=== PATIENT | male | born 1955 | race Caucasian/White ===

== ENCOUNTER 2016-08-09 10:12 | Inpatient (IN) | payer MEDICARE ==
[~2016-08-09] VITALS: Ht 185.4 cm; Wt 89.8 kg
[2016-08-09] VITALS (12 sets, daily range): BP systolic 119–155; BP diastolic 68–86
[~2016-08-09 10:12] MED LIST: AMIO200T2 PO; ASPI-612 PO; ASPI-630 PO; ATOR40TA59 PO; CLOP75TA PO; ENAL10TA PO; INSU100I13 SQ; INSU100I17 SQ; METF-620 PO; METO50TA2 PO; NITR0.4T22 SL; TICA90TA PO
[2016-08-09] MEDS ORDERED: IV NORMAL SALINE 1000ML BAG 1,000 ML IV SCH (10:17)
[2016-08-09] MEDS ORDERED: AMIODARONE 900 MG in IV DEXTROSE 5% 500 ML IV ONE (10:30)
[2016-08-09] MEDS ORDERED: HEPARIN 25,000UTS/500ML PREMIX 500 ML IV ONE (10:30)
[2016-08-09] MEDS ORDERED: HEPARIN for IV BOLUS 10,000 UNIT/10 ML VIAL. IV ONE ×2 (10:30→11:30)
--- NOTE | 2016-08-09 10:31 | PHYS DOC ---
Past Medical History Past Medical History: CAD, Diabetes-Type II, High Cholesterol, Hypertension, DC Additional Past Surgical Histo: CARDIAC STENT, ROTATOR CUFF- BILAT, L KNEE MENISCUS Alcohol Use: None Drug Use: None Adult General Chief Complaint Chief Complaint: CHEST PAIN HPI HPI Patient is a 60 year old male who presents with complaint of chest pain started prior to arrival. Patient states currently his chest pain has resolved. Patient was brought the emergency department by EMS. Patient had an initial EKG performed by EMS that was interpreted as an acute STEMI with elevations in the inferior leads. Patient was given 324 mg of aspirin prior to arrival. Patient was recently admitted to the hospital for heart attack. Patient underwent several code blues during his initial stay. Patient had several stents placed in his right coronary artery due to blockage. At this time patient maintains that he is asymptomatic. Patient is also being evaluated by cardiology at the bedside at this time. Review of Systems Review of Systems Constitutional: Denies fever or chills [] Eyes: Denies change in visual acuity, redness, or eye pain [] HENT: Denies nasal congestion or sore throat [] Respiratory: Denies cough or shortness of breath [] Cardiovascular: Chest pain [] GI: Denies abdominal pain, nausea, vomiting, bloody stools or diarrhea [] : Denies dysuria or hematuria [] Musculoskeletal: Denies back pain or joint pain [] Integument: Denies rash or skin lesions [] Neurologic: Denies headache, focal weakness or sensory changes [] Current Medications Current Medications Current Medications Medications (Trade) Dose Ordered Sig/Lizzeth Start Time Stop Time Status Last Admin Dose Admin Amiodarone HCl 900 mg/Dextrose 518 ml @ 0 mls/hr 1X ONCE 08/09/16 10:30 08/09/16 10:31 DC Heparin Sodium (Porcine) (Heparin Sodium) 4,000 unit 1X ONCE 08/09/16 10:30 08/09/16 10:31 DC 08/09/16 10:14 4,000 UNIT Heparin Sodium/ Dextrose 500 ml @ 0 mls/hr 1X ONCE 08/09/16 10:30 08/09/16 10:31 DC 08/09/16 12:45 22.2 MLS/HR Sodium Chloride 1,000 ml @ 100 mls/hr Q10H 08/09/16 10:17 08/09/16 20:16 Allergies Allergies Allergies Coded Allergies Type Severity Reaction Last Updated Verified No Known Drug Allergies 08/01/16 No Physical Exam Physical Exam Constitutional: Alert, afebrile, appears in no acute distress. [] HENT: Normocephalic, atraumatic, bilateral external ears normal, oropharynx moist, no oral exudates, nose normal. [] Eyes: PERRLA, EOMI, conjunctiva normal, no discharge. [] Neck: Normal range of motion, no tenderness, supple, no stridor. [] Cardiovascular:Heart rate regular rhythm, no murmur [] Lungs & Thorax: Bilateral breath sounds clear to auscultation [] Abdomen: Bowel sounds normal, soft, no tenderness, no masses, no pulsatile masses. [] Skin: Warm, dry, no erythema, no rash. [] Back: No tenderness, no CVA tenderness. [] Extremities: No tenderness, no cyanosis, no clubbing, ROM intact, no edema. [] Neurologic: Alert and oriented X 3, normal motor function, normal sensory function, no focal deficits noted. [] Current Patient Data Vital Signs Vital Signs Date Time Temp Pulse Resp B/P (MAP) Pulse Ox O2 Delivery O2 Flow Rate FiO2 08/09/16 10:37 65 18 149/85 (106) 97 Room Air 08/09/16 10:12 98.4 98.4 Lab Values Laboratory Tests Test 08/09/16 10:30 White Blood Count 9.2 x10^3/uL (4.0-11.0) Red Blood Count 4.75 x10^6/uL (4.30-5.70) Hemoglobin 14.4 g/dL (13.0-17.5) Hematocrit 41.3 % (39.0-53.0) Mean Corpuscular Volume 87 fL (79-100) Mean Corpuscular Hemoglobin 30 pg (25-35) Mean Corpuscular Hemoglobin Concent 35 g/dL (31-37) Red Cell Distribution Width 13.5 % (11.5-14.5) Platelet Count 481 x10^3/uL (140-400) H Neutrophils (%) (Auto) 66 % (31-73) Lymphocytes (%) (Auto) 17 % (24-48) L Monocytes (%) (Auto) 13 % (0-9) H Eosinophils (%) (Auto) 3 % (0-3) Basophils (%) (Auto) 1 % (0-3) Neutrophils # (Auto) 6.1 x10^3uL (1.8-7.7) Lymphocytes # (Auto) 1.6 x10^3/uL (1.0-4.8) Monocytes # (Auto) 1.2 x10^3/uL (0.0-1.1) H Eosinophils # (Auto) 0.3 x10^3/uL (0.0-0.7) Basophils # (Auto) 0.1 x10^3/uL (0.0-0.2) Prothrombin Time 14.1 SEC (11.7-14.0) H Prothrombin Time INR 1.2 (0.8-1.1) H Sodium Level 136 mmol/L (136-145) Potassium Level 4.8 mmol/L (3.5-5.1) Chloride Level 100 mmol/L (98-107) Carbon Dioxide Level 26 mmol/L (21-32) Anion Gap 10 (6-14) Blood Urea Nitrogen 14 mg/dL (8-26) Creatinine 0.7 mg/dL (0.7-1.3) Estimated GFR (Cockcroft-Gault) 115.0 Glucose Level 302 mg/dL (70-99) H Calcium Level 9.5 mg/dL (8.5-10.1) Magnesium Level 2.0 mg/dL (1.8-2.4) Total Bilirubin 0.5 mg/dL (0.2-1.0) Direct Bilirubin 0.1 mg/dL (0.0-0.2) Aspartate Amino Transferase (AST) 26 U/L (15-37) Alanine Aminotransferase (ALT) 42 U/L (16-63) Alkaline Phosphatase 111 U/L (46-116) Creatine Kinase 48 U/L (39-308) Creatine Kinase MB (Mass) 1.4 ng/mL (0.0-3.6) Creatine Kinase MB Relative Index % (0-4) Troponin I Quantitative 1.295 ng/mL (0.000-0.055) BW-Qfn-H-Type Natriuretic Peptide 559 pg/mL (0-124) H Total Protein 7.4 g/dL (6.4-8.2) Albumin 2.9 g/dL (3.4-5.0) L Laboratory Tests 08/09/16 10:30 Laboratory Tests 08/09/16 10:30 EKG EKG Interpreted by me: Heart rate 73, sinus rhythm, normal intervals, ST elevations in the inferior leads with reciprocal depressions in leads V1 through V3, no T- wave changes, EKG concerning for acute STEMI [] Radiology/Procedures Radiology/Procedures [facility] [address] [place] [address] IMAGING REPORT Signed PATIENT: ELYSSA CONTRERAS ACCOUNT: [id number] : 1955 LOCATION: ER AGE: 60 SEX: M EXAM STATUS: PRE ER ORD. PHYSICIAN: RENEE KHOURY MD REASON: chest pain PROCEDURE: PORTABLE CHEST 1V Indication chest pain. A single view of the chest was obtained. Comparison is made to an examination 08/02/2016. Heart size is at the upper limits of normal. There is no congestive heart failure. There is no focal infiltrate. There is no significant pleural fluid or pneumothorax. The visualized bony structures appear grossly intact. IMPRESSION: No acute finding seen in the chest DICTATED and SIGNED BY: JOSEPHINE NICHOLSON MD DATE: 08/09/16 1056 CC: RENEE KHOURY MD; KARLEE LOMBARDO Jr, MD ~ [] Course & Med Decision Making Course & Med Decision Making Pertinent Labs and Imaging studies reviewed. (See chart for details) The patient was activated as a code STEMI prior to arrival in the emergency department. The patient was evaluated by Dr. Cisse of cardiology. After evaluation, he asked that the code STEMI be canceled and recommended administration of heparin and amiodarone to the patient at this time which was completed in the emergency department. After 30 minutes of the patient being in the emergency department, Dr. Cisse called back to the emergency department and informed me that Dr. Lam, patient's belt glass sander, would be planning on taking the patient emergently to [facility] for [facility]. I spoke Dr. Hua who accepted care of patient in hospital. Dragon Disclaimer Dragon Disclaimer This electronic medical record was generated, in whole or in part, using a voice recognition dictation system. Departure Departure Impression: Primary Impression: STEMI (ST elevation myocardial infarction) Disposition: 09 ADMITTED INPATIENT Admitting Physician: Lisbeth Hua Condition: GUARDED Referrals: KARLEE LOMBARDO Jr, MD (PCP) Problem Qualifiers Primary Impression: STEMI (ST elevation myocardial infarction) Involved coronary artery: unspecified coronary artery Qualified Codes: I21.3 - ST elevation (STEMI) myocardial infarction of unspecified site RENEE KHOURY MD Aug 09, 2016 10:31
[2016-08-09 10:42] LABS: BASO # 0.1 x10^3/uL (0.0-0.2); BASO % 1 % (0-3); EOS % 3 % (0-3); HEMATOCRIT 41.3 % (39.0-53.0); HEMOGLOBIN 14.4 g/dL (13.0-17.5); LYMPH # 1.6 x10^3/uL (1.0-4.8); LYMPH % 17 % (24-48); MEAN CORPUSCULAR HEMOGLOBIN 30 pg (25-35); MEAN CORPUSCULAR HGB CONC 35 g/dL (31-37); MEAN CORPUSCULAR VOLUME 87 fL (79-100); MONO % 13 % (0-9); NEUT % 66 % (31-73); PLATELET COUNT 481 x10^3/uL (140-400); RED BLOOD COUNT 4.75 x10^6/uL (4.30-5.70); RED CELL DISTRIBUTION WIDTH 13.5 % (11.5-14.5); WHITE BLOOD COUNT 9.2 x10^3/uL (4.0-11.0)
[2016-08-09 10:52] LABS: CALCIUM 9.5 mg/dL (8.5-10.1); CREATININE 0.7 mg/dL (0.7-1.3); POTASSIUM 4.8 mmol/L (3.5-5.1)
[2016-08-09 10:58] LABS: ALBUMIN 2.9 g/dL (3.4-5.0); DIRECT BILIRUBIN 0.1 mg/dL (0.0-0.2); TOTAL BILIRUBIN 0.5 mg/dL (0.2-1.0); TOTAL PROTEIN 7.4 g/dL (6.4-8.2)
--- NOTE | 2016-08-09 11:00 | RAD ---
Indication chest pain. A single view of the chest was obtained. Comparison is made to an examination 08/02/2016. Heart size is at the upper limits of normal. There is no congestive heart failure. There is no focal infiltrate. There is no significant pleural fluid or pneumothorax. The visualized bony structures appear grossly intact. IMPRESSION: No acute finding seen in the chest
[2016-08-09] MEDS ORDERED: MIDAZOLAM HCL/PF 2 MG/2 ML VIAL. ONE (11:01)
[2016-08-09] MEDS ORDERED: fentaNYL PF VIAL 100 MCG/2 ML VIAL ONE (11:01)
[2016-08-09 11:02] LABS: INR 1.2 (0.8-1.1); PROTHROMBIN TIME PATIENT 14.1 SEC (11.7-14.0)
[2016-08-09] MEDS ORDERED: LIDOCAINE 2% 20 ML VIAL. ONE (11:02)
[2016-08-09] MEDS ORDERED: IODIXANOL 320 MG/ML 100 ML VIAL. ONE (11:02)
[2016-08-09] MEDS ORDERED: HEPARIN for IV BOLUS 10,000 UNIT/10 ML VIAL. ONE (11:06)
[2016-08-09 11:08] LABS: CKMB MASS 1.4 ng/mL (0.0-3.6); CREATINE KINASE 48 U/L (39-308)
--- NOTE | 2016-08-09 11:13 | ACF ---
Admission Forms Criteria MYOCARDIAL INFARCTION Clinical Indications for Admission to Inpatient Care (Place 'X' for any and all applicable criteria): Admission is indicated for 1 or more of the following (1)(2)(3)(4): [X]I. Acute UT [ ]II. Contraindications and/or Inappropriate clinical situations for Observational Care in patients with Myocardial Infarction, when ANY ONE of the following is required: [ ]a) Patient with High risk of cardiac embolism (e.g, patients with previous cardiac embolism, LVEF < 40%, age >75 and patients with prosthetic valve) 18 [ ]b) Patient with Moderate risk including DM patient, CAD and patient aged 65-75 18 [ ]c) Patient with any change in cardiac biomarker especially troponin should be managed as high risk in an inpatient setting 19 [ ]d) Physician judgement irrespective of ECG and other diagnostic findings 20 [ ]III.General contraindications and/or Inappropriate clinical situations for Observational Care in patients with Myocardial Infarction, when ANY ONE of the following is required: [ ]a) Prediction of prolongation of LOS based on ANY ONE of the following may be considered as a contraindication for observational care 2, 3, 4, 5, 6, 7, 8, 9, 10, 11 [ ]i) Age > 65 yrs. [ ]ii) Patient arriving by ambulance [ ]iii) Patient with high acuity [ ]iv) Patient requiring vital sign monitoring [ ]v) Patient on IV medication [ ]b) Systolic blood pressures greater than or equal to 180mmHg 3,12 [ ]c) Patient with altered mental status including delirium and other alteration of consciousness, (3) [ ]d) Patient whose discharge disposition will be to a halfway home or rehabilitation home should not be managed in Emergency Department Observation Unit. CMS rule requires 3 days hospital stay before such placement. 3,13 [ ]e) Patient with failure to thrive due to broad array of etiologies 3 ,16,17 [ ]f) Inability to ambulate 3,14 Extended stay beyond goal length of stay may be needed for (1)(18)(20)(24)(25): [ ]a) Hemodynamic instability, persisting symptoms after intensive medical management, or recurring severe, prolonged symptoms [ ]b) Intravascular procedural complications such as acute vessel closure, stent thrombosis, stent malposition, or vessel dissection (26)(27)(28) [ ]c) Extravascular procedural complications such as retroperitoneal hematoma , pericardial effusion, or cardiac tamponade [ ]d) Entry site complications causing bleeding, hematoma or distal ischemia and requiring ongoing monitoring, surgical repair or surgical thrombectomy. Dangerous arrhythmia [ ]e) Complicated percutaneous coronary intervention (e.g., unsuccessful percutaneous coronary intervention or percutaneous coronary intervention of non- la posta vessel) [ ]f) Urgent or emergent surgery for complications of UT (e.g., ventricular rupture, valvular insufficiency) [ ]g) Surgical revascularization via coronary artery bypass graft [ ]h) Heart failure (e.g., pulmonary edema) [ ]i) Unstable pulmonary comorbidities, including COPD or pneumonia (31) [ ]j) Acute renal failure The original [employer] content created by [employer] has been revised. The portions of the content which have been revised are identified through the use of italic text or in bold, and [employer] has neither reviewed nor approved the modified material. All other unmodified content is copyright [facility] [employer] Please see references footnoted in the original [facility] [employer] edition 2016 Admission Criteria Met?: Yes MARIKA RODGERS Aug 09, 2016 11:13
[2016-08-09] MEDS ORDERED: TIROFIBAN 12.5MG -0.9% NS 250 ML IV ONE (11:21)
[2016-08-09] MEDS ORDERED: TIROFIBAN 5MG -0.9% NS 100 ML IV ONE (11:30)
[2016-08-09] MEDS ORDERED: CONTRAST GIVEN MC PRN (11:30)
[2016-08-09] MEDS ORDERED: fentaNYL PF VIAL 100 MCG/2 ML VIAL IV ONE (11:30)
[2016-08-09] MEDS ORDERED: MIDAZOLAM HCL/PF 2 MG/2 ML VIAL. IV ONE (11:30)
[2016-08-09] MEDS ORDERED: LIDOCAINE 2% 20 ML VIAL. IJ ONE (11:30)
[2016-08-09] MEDS ORDERED: IODIXANOL 320 MG/ML 100 ML VIAL. IART ONE (11:30)
[2016-08-09] MEDS: TIROFIBAN 12.5MG -0.9% NS 250 ML IV PRN ×2 (12:07→22:05)
--- NOTE | 2016-08-09 14:56 | EKG ---
[facility] [address] [place] [address] Test Date: 2016-08-09 Test Time: 10:10:06 Pat Name: ELYSSA CONTRERAS Department: Room: 110 1 Gender: M Shellfish Manager: : 1955 Requested By: RENEE KHOURY Order Number: [id number] Reading MD: Raulito Lam Measurements Intervals [place] Rate: 72 P: 29 WA: 152 QRS: 6 QRSD: 128 T: 39 QT: 430 QTc: 473 Interpretive Statements SINUS RHYTHM RBBB INFERIOR STEMI Electronically Signed On 08-23-2016 6:23:46 CDT by Raulito Lam
--- NOTE | 2016-08-09 16:53 | PDOC2 ---
CONSULT Date of Consult Date of Consult DATE: 08/09/16 TIME: 16:36 Reason for Consult Reason for Consult: Coronary artery disease, recent stenting, diaphoresis, abnormal EKG Referring Physician Referring Physician: Dr. Hua Identification/Chief Complaint Chief Complaint Diaphoresis Source Source: Patient History of Present Illness Reason for Visit: The patient is a pleasant 60-year-old male who reported diaphoresis at home earlier today. Initial EKG by paramedics showed ST elevation in the inferior leads He was brought emergently to the hospital. Upon arrival the patient reported feeling well. He denies chest pain, shortness of breath, dizziness or diaphoresis. He states his symptoms lasted approximately 10 minutes and then resolved without treatment. His EKG however did show ST elevation in the inferior leads. The patient has had multiple recent procedures on his right coronary artery. Initially at approximately 2-1/2 weeks ago he had stent placement to the right coronary artery. He was returned to the lab is approximate one and a half hours later for an acute occlusion of the right coronary artery and had further stent placement. He then was brought emergently to [place] on the of this month with an ST elevated infarction. This was complicated by cardiac arrest and bradyarrhythmias. The patient was brought to the catheterization lab and had further stents placed in the right coronary artery as well as a temporary pacemaker. The patient went home approximately 5 days ago. He states he has taken his medications as directed. He remains pain- free and feeling at baseline in the emergency room Past Medical History Cardiovascular: CAD, HTN, VT, Other (stent placement as above) Pulmonary: Bronchitis GI: No pertinent hx Endocrine: Diabetes Past Surgical History Past Surgical History: Other (multiple stents placed to the RCA, bilateral rotator cuff repairs, left knee repair.) Family History Family History: Family History Unknown Social History Quit ALCOHOL: none Drugs: None Current Problem List Problem List Problems Medical Problems: (1) STEMI (ST elevation myocardial infarction) Status: Acute Current Medications Current Medications Current Medications Amiodarone HCl 900 mg/Dextrose 518 ml @ 0 mls/hr 1X ONCE IV ; Start 08/09/16 at 10:30; Stop 08/09/16 at 10:31; Status DC Heparin Sodium (Porcine) (Heparin Sodium) 4,000 unit 1X ONCE IV Last administered on 08/09/16t 10:14; Start 08/09/16 at 10:30; Stop 08/09/16 at 10:31 ; Status DC Heparin Sodium/ Dextrose 500 ml @ 0 mls/hr 1X ONCE IV Last administered on 12:45; Start 08/09/16 at 10:30; Stop 08/09/16 at 10:31; Status DC Sodium Chloride 1,000 ml @ 100 mls/hr Q10H IV ; Start 08/09/16 at 10:17; Stop 08/09/16 at 20:16 Fentanyl Citrate (Fentanyl 2ml Vial) 100 mcg STK-MED ONCE .ROUTE ; Start at 11:01; Stop 08/09/16 at 11:02; Status DC Midazolam HCl (Versed) 2 mg STK-MED ONCE .ROUTE ; Start 08/09/16 at 11:01; Stop 08/09/16 at 11:02; Status DC Heparin Sodium/ Sodium Chloride 1,000 ml @ As Directed STK-MED ONCE .ROUTE ; Start 08/09/16 at 11:02; Stop 08/09/16 at 11:03; Status DC Iodixanol (Visipaque 320) 100 ml STK-MED ONCE .ROUTE ; Start 08/09/16 at 11:02; Stop 08/09/16 at 11:03; Status DC Lidocaine HCl 20 ml STK-MED ONCE .ROUTE ; Start 08/09/16 at 11:02; Stop at 11:03; Status DC Heparin Sodium (Porcine) (Heparin Sodium) 10,000 unit STK-MED ONCE .ROUTE ; Start 08/09/16 at 11:06; Stop 08/09/16 at 11:07; Status DC Heparin Sodium/ Sodium Chloride 1,000 unit 1X ONCE IART Last administered on 12:04; Start 08/09/16 at 11:30; Stop 08/09/16 at 11:31; Status DC Midazolam HCl (Versed) 2 mg 1X ONCE IV Last administered on 08/09/16 11:30; Start 08/09/16 at 11:30; Stop 08/09/16 at 11:31; Status DC Fentanyl Citrate (Fentanyl 2ml Vial) 100 mcg 1X ONCE IV Last administered on 12:06; Start 08/09/16 at 11:30; Stop 08/09/16 at 11:31; Status DC Iodixanol (Visipaque 320) 100 ml 1X ONCE IART Last administered on 08/09/16 12:04; Start 08/09/16 at 11:30; Stop 08/09/16 at 11:31; Status DC Lidocaine HCl 20 ml 1X ONCE IJ Last administered on 08/09/16 12:04; Start at 11:30; Stop 08/09/16 at 11:31; Status DC Heparin Sodium (Porcine) (Heparin Sodium) 2,000 unit 1X ONCE IV Last administered on 08/09/16 12:08; Start 08/09/16 at 11:30; Stop 08/09/16 at 11:31 ; Status DC Tirofiban/Sodium Chloride 250 ml @ As Directed STK-MED ONCE IV ; Start at 11:21; Stop 08/09/16 at 11:22; Status DC Info (Do NOT chart on this entry -- for MONITORING) 1 each PRN DAILY PRN MC SEE COMMENTS; Start 08/09/16 at 11:30; Stop 08/11/16 at 11:29 Tirofiban/Sodium Chloride 100 ml @ 0 mls/hr 1X ONCE IV Last administered on 11:30; Start 08/09/16 at 11:30; Stop 08/09/16 at 11:31; Status DC Tirofiban/Sodium Chloride 250 ml @ 0 mls/hr CONT PRN IV PER PROTOCOL Last administered on 08/09/16 12:07; Start 08/09/16 at 11:30; Stop 08/10/16 at 05:29 Active Scripts Active Brilinta (Ticagrelor) 90 Mg Tablet 90 Mg PO BID 30 Days Atorvastatin Calcium 40 Mg Tablet 40 Mg PO QHS 30 Days Aspirin Ec (Aspirin) 81 Mg Tablet. 81 Mg PO DAILYWBKFT 30 Days Amiodarone Hcl 200 Mg Tablet 200 Mg PO DAILY 30 Days Reported Metoprolol Tartrate 50 Mg Tablet 1 Tab PO BID NITROGLYCERIN SubLingual (Nitroglycerin) 0.4 Mg Tab.subl 1 Tab SL UD Novolog Flexpen (Insulin Aspart) 100 Unit/1 Ml Insuln.pen 12 Unit SQ TIDAC Metformin Hcl 1,000 Mg Tablet 1,000 Mg PO BIDWMEALS Lantus Solostar (Insulin Glargine,Hum.rec.anlog) 100 Unit/1 Ml Insuln.pen 32 Unit SQ QHS Enalapril Maleate 10 Mg Tablet 1 Tab PO DAILY Atorvastatin Calcium 40 Mg Tablet 1 Tab PO QHS Aspirin 81 Mg Tab.chew 1 Tab PO DAILY Allergies Allergies: Coded Allergies: No Known Drug Allergies (Unverified , 08/01/16) ROS General: YES: Chills Physical Exam General: No acute distress HEENT: Atraumatic Lungs: Clear to auscultation Heart: Regular rate Abdomen: Normal bowel sounds Extremities: No clubbing Vitals VITALS Vital Signs Date Time Temp Pulse Resp B/P (MAP) Pulse Ox O2 Delivery O2 Flow Rate FiO2 08/09/16 15:50 77 18 128/69 (88) 96 Room Air 08/09/16 12:20 97.9 97.9 Labs Labs Laboratory Tests Test 08/09/16 10:30 White Blood Count 9.2 x10^3/uL (4.0-11.0) Red Blood Count 4.75 x10^6/uL (4.30-5.70) Hemoglobin 14.4 g/dL (13.0-17.5) Hematocrit 41.3 % (39.0-53.0) Mean Corpuscular Volume 87 fL (79-100) Mean Corpuscular Hemoglobin 30 pg (25-35) Mean Corpuscular Hemoglobin Concent 35 g/dL (31-37) Red Cell Distribution Width 13.5 % (11.5-14.5) Platelet Count 481 x10^3/uL (140-400) Neutrophils (%) (Auto) 66 % (31-73) Lymphocytes (%) (Auto) 17 % (24-48) Monocytes (%) (Auto) 13 % (0-9) Eosinophils (%) (Auto) 3 % (0-3) Basophils (%) (Auto) 1 % (0-3) Neutrophils # (Auto) 6.1 x10^3uL (1.8-7.7) Lymphocytes # (Auto) 1.6 x10^3/uL (1.0-4.8) Monocytes # (Auto) 1.2 x10^3/uL (0.0-1.1) Eosinophils # (Auto) 0.3 x10^3/uL (0.0-0.7) Basophils # (Auto) 0.1 x10^3/uL (0.0-0.2) Prothrombin Time 14.1 SEC (11.7-14.0) Prothromb Time International Ratio 1.2 (0.8-1.1) Sodium Level 136 mmol/L (136-145) Potassium Level 4.8 mmol/L (3.5-5.1) Chloride Level 100 mmol/L (98-107) Carbon Dioxide Level 26 mmol/L (21-32) Anion Gap 10 (6-14) Blood Urea Nitrogen 14 mg/dL (8-26) Creatinine 0.7 mg/dL (0.7-1.3) Estimated GFR (Cockcroft-Gault) 115.0 Glucose Level 302 mg/dL (70-99) Calcium Level 9.5 mg/dL (8.5-10.1) Magnesium Level 2.0 mg/dL (1.8-2.4) Total Bilirubin 0.5 mg/dL (0.2-1.0) Direct Bilirubin 0.1 mg/dL (0.0-0.2) Aspartate Amino Transf (AST/SGOT) 26 U/L (15-37) Alanine Aminotransferase (ALT/SGPT) 42 U/L (16-63) Alkaline Phosphatase 111 U/L (46-116) Creatine Kinase 48 U/L (39-308) Creatine Kinase MB (Mass) 1.4 ng/mL (0.0-3.6) Creatine Kinase MB Relative Index % (0-4) Troponin I Quantitative 1.295 ng/mL (0.000-0.055) UU-Cum-D-Type Natriuretic Peptide 559 pg/mL (0-124) Total Protein 7.4 g/dL (6.4-8.2) Albumin 2.9 g/dL (3.4-5.0) Laboratory Tests Test 08/09/16 10:30 White Blood Count 9.2 x10^3/uL (4.0-11.0) Red Blood Count 4.75 x10^6/uL (4.30-5.70) Hemoglobin 14.4 g/dL (13.0-17.5) Hematocrit 41.3 % (39.0-53.0) Mean Corpuscular Volume 87 fL (79-100) Mean Corpuscular Hemoglobin 30 pg (25-35) Mean Corpuscular Hemoglobin Concent 35 g/dL (31-37) Red Cell Distribution Width 13.5 % (11.5-14.5) Platelet Count 481 x10^3/uL (140-400) Neutrophils (%) (Auto) 66 % (31-73) Lymphocytes (%) (Auto) 17 % (24-48) Monocytes (%) (Auto) 13 % (0-9) Eosinophils (%) (Auto) 3 % (0-3) Basophils (%) (Auto) 1 % (0-3) Neutrophils # (Auto) 6.1 x10^3uL (1.8-7.7) Lymphocytes # (Auto) 1.6 x10^3/uL (1.0-4.8) Monocytes # (Auto) 1.2 x10^3/uL (0.0-1.1) Eosinophils # (Auto) 0.3 x10^3/uL (0.0-0.7) Basophils # (Auto) 0.1 x10^3/uL (0.0-0.2) Prothrombin Time 14.1 SEC (11.7-14.0) Prothromb Time International Ratio 1.2 (0.8-1.1) Sodium Level 136 mmol/L (136-145) Potassium Level 4.8 mmol/L (3.5-5.1) Chloride Level 100 mmol/L (98-107) Carbon Dioxide Level 26 mmol/L (21-32) Anion Gap 10 (6-14) Blood Urea Nitrogen 14 mg/dL (8-26) Creatinine 0.7 mg/dL (0.7-1.3) Estimated GFR (Cockcroft-Gault) 115.0 Glucose Level 302 mg/dL (70-99) Calcium Level 9.5 mg/dL (8.5-10.1) Magnesium Level 2.0 mg/dL (1.8-2.4) Total Bilirubin 0.5 mg/dL (0.2-1.0) Direct Bilirubin 0.1 mg/dL (0.0-0.2) Aspartate Amino Transf (AST/SGOT) 26 U/L (15-37) Alanine Aminotransferase (ALT/SGPT) 42 U/L (16-63) Alkaline Phosphatase 111 U/L (46-116) Creatine Kinase 48 U/L (39-308) Creatine Kinase MB (Mass) 1.4 ng/mL (0.0-3.6) Creatine Kinase MB Relative Index % (0-4) Troponin I Quantitative 1.295 ng/mL (0.000-0.055) MK-Vtx-Z-Type Natriuretic Peptide 559 pg/mL (0-124) Total Protein 7.4 g/dL (6.4-8.2) Albumin 2.9 g/dL (3.4-5.0) Assessment/Plan Assessment/Plan 1. Episode of diaphoresis as noted above. Patient denies any chest pain. He remains comfortable in the emergency room. Lab is pending However he does have elevated ST segments in the inferior leads. The patient has initially been treated with heparin and aspirin. He has remained pain free. His case was discussed with his primary senior civil engineer Dr. Lam. The patient will be brought to the cathode maker for reevaluation of his right coronary artery and possible intervention. This was discussed with the patient he has agreed to proceed. 2. Hyperlipidemia. Continue present medical treatment. 3. Hypertension. Adjust medications as needed. 4. Uncontrolled diabetes with a glucose level of 300. As per the primary service. Thank you for allowing us to participate in the care of your patient. DIOGENES MARTINS MD Aug 09, 2016 16:53
--- NOTE | 2016-08-09 17:25 | CARD ---
APPROVED REPORT Procedure(s) performed: Left Heart Cath PTCA RCA PTCA PDA IVUS PDA/ RCA HISTORY : The patient is a 60 year-old male with a history of . INDICATION The indication(s) include : unstable angina . CASE TECHNIQUE During this case, Fluoroscopy and low osmolar contrast were used for imaging. PROCEDURE NARRATIVE Patient is a 60-year-old male who comes into the hospital with recurrent chest pain in the setting of recent episodes of admission for stent thrombosis and ST elevation myocardial infarction with cardia c arrest. Upon arrival to the emergency department patient was noted to have symptoms suggestive of recurrent o cclusive disease of his RCA and therefore was taken urgently back to the catheterization laboratory. After appropriate informed consent the right groin was prepped and draped in usual sterile fashion. U nder 2% lidocaine local anesthesia a 6 Azeri introducer sheath was placed in the right common femora l artery. With the aid of a JR4 guide catheter and a 0.014 inch Glidewire the iliac calcification was traversed and initial angiography demonstrated occlusion of the distal RCA at the site of a previous ly placed stent at [facility]. Heparin weight-based bolus dosing was administered to achieve an ACT above 200 and antiplatelet thera py with tirofiban was also administered. A pro-water wire was then advanced to the distal RCA after e ngagement of the RCA with a AL-1.5 guide catheter. Next several balloon angioplasties were performed at the site of the distal RCA overlapping stents. Next a wire was also placed in the posterior descen ding artery and balloon angioplasty was performed at the crux of the RCA. Post angioplasty there was residual less than 30% thrombus in the distal RCA with CONNIE-3 flow in the vessel and no evidence of g uider wire-related complications. Therefore further intervention was deferred in favor of a single ve ssel bypass surgery given multiple episodes of recurrent stent thrombosis. Prior to the case being co mpleted a CHAY catheter was then advanced over the wire and evaluation of the stents in the distal RC A revealed significant luminal narrowing but no evidence of malapposition. Finally a pigtail catheter was placed in the left ventricle and a EDP was measured at 8 mmHg. Left ve ntriculography was performed in our SIFUENTES projection revealing inferior basilar hypokinesis but otherwi se preserved LV systolic function with ejection fraction of 50%. Due to difficulty advancing catheters in the distal aorta a abdominal aortogram was then performed wh ich did not reveal any significant obstructive pathology in the right and left common iliac vessels. Limited right common femoral artery angiography revealed adequate placement of the sheath and appropr iate anatomy for closure device. The right common femoral artery sheath was removed and a Angio-Seal device was placed for hemostasis. The patient tolerated the procedure well and the heparin and tirofi ban drips were continued and the patient was transferred to the ICU in stable condition. Conclusion 1. 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 2. Successful PTCA of the distal RCA 3. IVUS of the RCA 4. Abdominal aortography reveals no high grade inflow disease. Recommendations Heparin gtt, Tirofiban gtt Hold Ticagrelor CT surgery consultation for single vessel bypass.
--- NOTE | 2016-08-09 18:16 | HP ---
ADMIT DATE: 08/09/2016 CHIEF COMPLAINT: Chest pain. HISTORY OF PRESENT ILLNESS: The patient is a pleasant, middle-aged, 60-year-old white male who has known history of coronary artery disease. He has had a recent code even. He basically presents with chest pain. He had some EKG changes. He was taken to the [facility] emergently. He does have a right coronary lesion. No stents were placed today, but he is in the ICU. He is on amiodarone drip. We are awaiting further assessment and plan by Cardiology. PAST MEDICAL HISTORY: Coronary artery disease. Apparently, he has been awaiting bypass surgery. Diabetes, hypertension, hyperlipidemia, previous cardiac stents, rotator cuff surgery, and knee surgery. ALLERGIES: None. FAMILY HISTORY: Diabetes. SOCIAL HISTORY: Does not drink, smoke, or take drugs. MEDICATIONS: Reviewed. Please refer to the MRAD. REVIEW OF SYSTEMS: GENERAL: No history of weight change, weakness, or fevers. SKIN: No bruising, hair changes, or rashes. EYES: No blurred, double, or loss of vision. NOSE AND THROAT: No history of nosebleeds, hoarseness, or sore throat. HEART: The patient complains of chest pain. LUNGS: Denies cough, hemoptysis, wheezing, or shortness of breath. GASTROINTESTINAL: Denies changes in appetite, nausea, vomiting, diarrhea, or constipation. GENITOURINARY: No history of frequency, urgency, hesitancy, or nocturia. NEUROLOGIC: Denies history of numbness, tingling, tremor, or weakness. PSYCHIATRIC: No history of panic, anxiety, or depression. ENDOCRINE: No history of heat or cold intolerance, polyuria, or polydipsia. EXTREMITIES: Denies muscle weakness, joint pain, pain on walking, or stiffness. PHYSICAL EXAMINATION: VITAL SIGNS: Temperature afebrile, pulse 67, respirations 18, and blood pressure 126/68. GENERAL: He is alert, cooperative in the ICU. HEART: Normal S1, S2. LUNGS: Clear. ABDOMEN: Soft. EXTREMITIES: No edema. SKIN: No rashes. PSYCHIATRIC: Stable. VASCULAR: Good capillary refill. ENDOCRINE: No thyromegaly. LYMPHATICS: No cervical nodes. HEMATOPOIETIC: No bruising. LABORATORY DATA: Hematology normal. Electrolytes are normal. Troponin is 1.29. ASSESSMENT AND PLAN: Acute myocardial infarction in a middle-aged male who has known coronary artery disease. The patient was taken emergently to the [facility]. He did not receive new stents, but I think he may need further surgery and/or interventions. In fact, he has been awaiting some type of bypass surgery. For now, we are going to continue our ICU monitoring. Anticoagulation per Cardiology. Continue serial enzymes and home medications. PROGNOSIS: Guarded. DARIO LOPEZ DO DR: CALISTA/susie JOB#: [id number] / [id number]
[2016-08-09] MEDS ORDERED: HEPARIN for IV BOLUS 10,000 UNIT/10 ML VIAL. IV PRN (18:30)
[2016-08-09] MEDS ORDERED: DEXTROSE 50% 25 GM / 50ML DISP.SYRIN. IV PRN (18:45)
[2016-08-10] VITALS (15 sets, daily range): BP systolic 116–164; BP diastolic 61–88
[2016-08-10] MEDS: HEPARIN 25,000UTS/500ML PREMIX 500 ML IV PRN ×2 (05:14→21:27)
[2016-08-10] MEDS ORDERED: INSULIN ASPART 300 UNITS/3 ML INSULN.PEN SQ SCH (08:00)
[2016-08-10] MEDS ORDERED: ONDANSETRON PF 4 MG/2 ML VIAL. IV PRN (08:30)
[2016-08-10] MEDS ORDERED: ACETAMINOPHEN 325 MG TABLET. PO PRN (08:30)
[2016-08-10] MEDS ORDERED: DEXTROSE 50% 25 GM / 50ML DISP.SYRIN. IV PRN (08:30)
[2016-08-10] MEDS ORDERED: TICAGRELOR 90 MG TABLET. PO SCH (09:00)
[2016-08-10] MEDS ORDERED: ASPIRIN CHEWABLE 81 MG TABLET. PO SCH (09:00)
[2016-08-10] MEDS ORDERED: LISINOPRIL 20 MG TABLET PO SCH (09:00)
--- NOTE | 2016-08-10 09:00 | PDOC ---
PROGRESS NOTES Chief Complaint Chief Complaint 1. NSTEMI s/p balloon angioplasty (08/09) 2. HTN 3. Dyslipidemia 4. DM 2 5. Ex smoker 6. Mild to mod pcm History of Present Illness History of Present Illness Seen in ICU post balloon angioplasty yesterday NO CP VS ok On heparin gtt Looking at home meds, on statin 40, ASA 81 and brilinta 90 BID. 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 Vitals Vitals Vital Signs Date Time Temp Pulse Resp B/P (MAP) Pulse Ox O2 Delivery O2 Flow Rate FiO2 08/10/16 06:45 69 20 135/81 (99) 98 Room Air 08/10/16 04:05 99.5 99.5 Physical Exam General: Alert, Oriented X3, Cooperative, No acute distress Heart: Regular rate Lungs: Clear Abdomen: Normal bowel sounds Extremities: No clubbing Skin: No rashes Labs LABS Laboratory Tests Test 08/09/16 10:26 08/09/16 10:30 08/09/16 13:55 08/09/16 17:50 Bedside Troponin I 0.71 ng/ml (<0.08) White Blood Count 9.2 x10^3/uL (4.0-11.0) Red Blood Count 4.75 x10^6/uL (4.30-5.70) Hemoglobin 14.4 g/dL (13.0-17.5) Hematocrit 41.3 % (39.0-53.0) Mean Corpuscular Volume 87 fL (79-100) Mean Corpuscular Hemoglobin 30 pg (25-35) Mean Corpuscular Hemoglobin Concent 35 g/dL (31-37) Red Cell Distribution Width 13.5 % (11.5-14.5) Platelet Count 481 x10^3/uL (140-400) Neutrophils (%) (Auto) 66 % (31-73) Lymphocytes (%) (Auto) 17 % (24-48) Monocytes (%) (Auto) 13 % (0-9) Eosinophils (%) (Auto) 3 % (0-3) Basophils (%) (Auto) 1 % (0-3) Neutrophils # (Auto) 6.1 x10^3uL (1.8-7.7) Lymphocytes # (Auto) 1.6 x10^3/uL (1.0-4.8) Monocytes # (Auto) 1.2 x10^3/uL (0.0-1.1) Eosinophils # (Auto) 0.3 x10^3/uL (0.0-0.7) Basophils # (Auto) 0.1 x10^3/uL (0.0-0.2) Prothrombin Time 14.1 SEC (11.7-14.0) Prothromb Time International Ratio 1.2 (0.8-1.1) Sodium Level 136 mmol/L (136-145) Potassium Level 4.8 mmol/L (3.5-5.1) Chloride Level 100 mmol/L (98-107) Carbon Dioxide Level 26 mmol/L (21-32) Anion Gap 10 (6-14) Blood Urea Nitrogen 14 mg/dL (8-26) Creatinine 0.7 mg/dL (0.7-1.3) Estimated GFR (Cockcroft-Gault) 115.0 Glucose Level 302 mg/dL (70-99) Calcium Level 9.5 mg/dL (8.5-10.1) Magnesium Level 2.0 mg/dL (1.8-2.4) Total Bilirubin 0.5 mg/dL (0.2-1.0) Direct Bilirubin 0.1 mg/dL (0.0-0.2) Aspartate Amino Transf (AST/SGOT) 26 U/L (15-37) Alanine Aminotransferase (ALT/SGPT) 42 U/L (16-63) Alkaline Phosphatase 111 U/L (46-116) Creatine Kinase 48 U/L (39-308) Creatine Kinase MB (Mass) 1.4 ng/mL (0.0-3.6) Creatine Kinase MB Relative Index % (0-4) Troponin I Quantitative 1.295 ng/mL (0.000-0.055) SD-Oin-P-Type Natriuretic Peptide 559 pg/mL (0-124) Total Protein 7.4 g/dL (6.4-8.2) Albumin 2.9 g/dL (3.4-5.0) Nasal Screen MRSA (PCR) Negative (Negative) Heparin Anti-Xa Act, Unfractionated 0.10 IU/mL (0.30-0.70) Test 08/09/16 23:55 08/10/16 06:20 08/10/16 07:31 Heparin Anti-Xa Act, Unfractionated 0.20 IU/mL (0.30-0.70) 0.24 IU/mL (0.30-0.70) Glucose (Fingerstick) 187 mg/dL (70-99) Review of Systems Review of Systems denies 14 pt system- all reviewed Assessment and Plan Assessmemt and Plan Problems Medical Problems: (1) STEMI (ST elevation myocardial infarction) Status: Acute Problems: Comment Review of Relevant I have reviewed the following items rachel (where applicable) has been applied. Labs Laboratory Tests Test 08/09/16 10:26 08/09/16 10:30 08/09/16 13:55 08/09/16 17:50 Bedside Troponin I 0.71 ng/ml (<0.08) White Blood Count 9.2 x10^3/uL (4.0-11.0) Red Blood Count 4.75 x10^6/uL (4.30-5.70) Hemoglobin 14.4 g/dL (13.0-17.5) Hematocrit 41.3 % (39.0-53.0) Mean Corpuscular Volume 87 fL (79-100) Mean Corpuscular Hemoglobin 30 pg (25-35) Mean Corpuscular Hemoglobin Concent 35 g/dL (31-37) Red Cell Distribution Width 13.5 % (11.5-14.5) Platelet Count 481 x10^3/uL (140-400) Neutrophils (%) (Auto) 66 % (31-73) Lymphocytes (%) (Auto) 17 % (24-48) Monocytes (%) (Auto) 13 % (0-9) Eosinophils (%) (Auto) 3 % (0-3) Basophils (%) (Auto) 1 % (0-3) Neutrophils # (Auto) 6.1 x10^3uL (1.8-7.7) Lymphocytes # (Auto) 1.6 x10^3/uL (1.0-4.8) Monocytes # (Auto) 1.2 x10^3/uL (0.0-1.1) Eosinophils # (Auto) 0.3 x10^3/uL (0.0-0.7) Basophils # (Auto) 0.1 x10^3/uL (0.0-0.2) Prothrombin Time 14.1 SEC (11.7-14.0) Prothromb Time International Ratio 1.2 (0.8-1.1) Sodium Level 136 mmol/L (136-145) Potassium Level 4.8 mmol/L (3.5-5.1) Chloride Level 100 mmol/L (98-107) Carbon Dioxide Level 26 mmol/L (21-32) Anion Gap 10 (6-14) Blood Urea Nitrogen 14 mg/dL (8-26) Creatinine 0.7 mg/dL (0.7-1.3) Estimated GFR (Cockcroft-Gault) 115.0 Glucose Level 302 mg/dL (70-99) Calcium Level 9.5 mg/dL (8.5-10.1) Magnesium Level 2.0 mg/dL (1.8-2.4) Total Bilirubin 0.5 mg/dL (0.2-1.0) Direct Bilirubin 0.1 mg/dL (0.0-0.2) Aspartate Amino Transf (AST/SGOT) 26 U/L (15-37) Alanine Aminotransferase (ALT/SGPT) 42 U/L (16-63) Alkaline Phosphatase 111 U/L (46-116) Creatine Kinase 48 U/L (39-308) Creatine Kinase MB (Mass) 1.4 ng/mL (0.0-3.6) Creatine Kinase MB Relative Index % (0-4) Troponin I Quantitative 1.295 ng/mL (0.000-0.055) RT-Cmu-R-Type Natriuretic Peptide 559 pg/mL (0-124) Total Protein 7.4 g/dL (6.4-8.2) Albumin 2.9 g/dL (3.4-5.0) Nasal Screen MRSA (PCR) Negative (Negative) Heparin Anti-Xa Act, Unfractionated 0.10 IU/mL (0.30-0.70) Test 08/09/16 23:55 08/10/16 06:20 08/10/16 07:31 Heparin Anti-Xa Act, Unfractionated 0.20 IU/mL (0.30-0.70) 0.24 IU/mL (0.30-0.70) Glucose (Fingerstick) 187 mg/dL (70-99) Laboratory Tests Test 08/09/16 10:26 08/09/16 10:30 08/09/16 13:55 08/09/16 17:50 Bedside Troponin I 0.71 ng/ml (<0.08) White Blood Count 9.2 x10^3/uL (4.0-11.0) Red Blood Count 4.75 x10^6/uL (4.30-5.70) Hemoglobin 14.4 g/dL (13.0-17.5) Hematocrit 41.3 % (39.0-53.0) Mean Corpuscular Volume 87 fL (79-100) Mean Corpuscular Hemoglobin 30 pg (25-35) Mean Corpuscular Hemoglobin Concent 35 g/dL (31-37) Red Cell Distribution Width 13.5 % (11.5-14.5) Platelet Count 481 x10^3/uL (140-400) Neutrophils (%) (Auto) 66 % (31-73) Lymphocytes (%) (Auto) 17 % (24-48) Monocytes (%) (Auto) 13 % (0-9) Eosinophils (%) (Auto) 3 % (0-3) Basophils (%) (Auto) 1 % (0-3) Neutrophils # (Auto) 6.1 x10^3uL (1.8-7.7) Lymphocytes # (Auto) 1.6 x10^3/uL (1.0-4.8) Monocytes # (Auto) 1.2 x10^3/uL (0.0-1.1) Eosinophils # (Auto) 0.3 x10^3/uL (0.0-0.7) Basophils # (Auto) 0.1 x10^3/uL (0.0-0.2) Prothrombin Time 14.1 SEC (11.7-14.0) Prothromb Time International Ratio 1.2 (0.8-1.1) Sodium Level 136 mmol/L (136-145) Potassium Level 4.8 mmol/L (3.5-5.1) Chloride Level 100 mmol/L (98-107) Carbon Dioxide Level 26 mmol/L (21-32) Anion Gap 10 (6-14) Blood Urea Nitrogen 14 mg/dL (8-26) Creatinine 0.7 mg/dL (0.7-1.3) Estimated GFR (Cockcroft-Gault) 115.0 Glucose Level 302 mg/dL (70-99) Calcium Level 9.5 mg/dL (8.5-10.1) Magnesium Level 2.0 mg/dL (1.8-2.4) Total Bilirubin 0.5 mg/dL (0.2-1.0) Direct Bilirubin 0.1 mg/dL (0.0-0.2) Aspartate Amino Transf (AST/SGOT) 26 U/L (15-37) Alanine Aminotransferase (ALT/SGPT) 42 U/L (16-63) Alkaline Phosphatase 111 U/L (46-116) Creatine Kinase 48 U/L (39-308) Creatine Kinase MB (Mass) 1.4 ng/mL (0.0-3.6) Creatine Kinase MB Relative Index % (0-4) Troponin I Quantitative 1.295 ng/mL (0.000-0.055) KS-Dhd-P-Type Natriuretic Peptide 559 pg/mL (0-124) Total Protein 7.4 g/dL (6.4-8.2) Albumin 2.9 g/dL (3.4-5.0) Nasal Screen MRSA (PCR) Negative (Negative) Heparin Anti-Xa Act, Unfractionated 0.10 IU/mL (0.30-0.70) Test 08/09/16 23:55 08/10/16 06:20 08/10/16 07:31 Heparin Anti-Xa Act, Unfractionated 0.20 IU/mL (0.30-0.70) 0.24 IU/mL (0.30-0.70) Glucose (Fingerstick) 187 mg/dL (70-99) Medications Current Medications Amiodarone HCl 900 mg/Dextrose 518 ml @ 0 mls/hr 1X ONCE IV ; Start 08/09/16 at 10:30; Stop 08/09/16 at 10:31; Status DC Heparin Sodium (Porcine) (Heparin Sodium) 4,000 unit 1X ONCE IV Last administered on 08/09/16t 10:14; Start 08/09/16 at 10:30; Stop 08/09/16 at 10:31 ; Status DC Heparin Sodium/ Dextrose 500 ml @ 0 mls/hr 1X ONCE IV Last administered on 12:45; Start 08/09/16 at 10:30; Stop 08/09/16 at 10:31; Status DC Sodium Chloride 1,000 ml @ 100 mls/hr Q10H IV ; Start 08/09/16 at 10:17; Stop 08/09/16 at 20:16; Status DC Fentanyl Citrate (Fentanyl 2ml Vial) 100 mcg STK-MED ONCE .ROUTE ; Start at 11:01; Stop 08/09/16 at 11:02; Status DC Midazolam HCl (Versed) 2 mg STK-MED ONCE .ROUTE ; Start 08/09/16 at 11:01; Stop 08/09/16 at 11:02; Status DC Heparin Sodium/ Sodium Chloride 1,000 ml @ As Directed STK-MED ONCE .ROUTE ; Start 08/09/16 at 11:02; Stop 08/09/16 at 11:03; Status DC Iodixanol (Visipaque 320) 100 ml STK-MED ONCE .ROUTE ; Start 08/09/16 at 11:02; Stop 08/09/16 at 11:03; Status DC Lidocaine HCl 20 ml STK-MED ONCE .ROUTE ; Start 08/09/16 at 11:02; Stop at 11:03; Status DC Heparin Sodium (Porcine) (Heparin Sodium) 10,000 unit STK-MED ONCE .ROUTE ; Start 08/09/16 at 11:06; Stop 08/09/16 at 11:07; Status DC Heparin Sodium/ Sodium Chloride 1,000 unit 1X ONCE IART Last administered on 12:04; Start 08/09/16 at 11:30; Stop 08/10/16 at 07:43; Status DC Midazolam HCl (Versed) 2 mg 1X ONCE IV Last administered on 08/09/16 11:30; Start 08/09/16 at 11:30; Stop 08/09/16 at 11:31; Status DC Fentanyl Citrate (Fentanyl 2ml Vial) 100 mcg 1X ONCE IV Last administered on 12:06; Start 08/09/16 at 11:30; Stop 08/09/16 at 11:31; Status DC Iodixanol (Visipaque 320) 100 ml 1X ONCE IART Last administered on 08/09/16 12:04; Start 08/09/16 at 11:30; Stop 08/09/16 at 11:31; Status DC Lidocaine HCl 20 ml 1X ONCE IJ Last administered on 08/09/16 12:04; Start at 11:30; Stop 08/09/16 at 11:31; Status DC Heparin Sodium (Porcine) (Heparin Sodium) 2,000 unit 1X ONCE IV Last administered on 08/09/16 12:08; Start 08/09/16 at 11:30; Stop 08/09/16 at 11:31 ; Status DC Tirofiban/Sodium Chloride 250 ml @ As Directed STK-MED ONCE IV ; Start at 11:21; Stop 08/09/16 at 11:22; Status DC Info (Do NOT chart on this entry -- for MONITORING) 1 each PRN DAILY PRN MC SEE COMMENTS; Start 08/09/16 at 11:30; Stop 08/11/16 at 11:29 Tirofiban/Sodium Chloride 100 ml @ 0 mls/hr 1X ONCE IV Last administered on 11:30; Start 08/09/16 at 11:30; Stop 08/09/16 at 11:31; Status DC Tirofiban/Sodium Chloride 250 ml @ 0 mls/hr CONT PRN IV PER PROTOCOL Last administered on 08/09/16 22:05; Start 08/09/16 at 11:30; Stop 08/10/16 at 05:29 ; Status DC Heparin Sodium/ Dextrose 500 ml @ 20 mls/hr CONT PRN IV SEE I/O RECORD Last administered on 08/10/16 05:14; Start 08/09/16 at 18:30 Heparin Sodium (Porcine) (Heparin Sodium) 2,300 unit PRN Q6HRS PRN IV FOR UFH LEVEL LESS THAN 0.2 Last administered on 08/09/16 18:37; Start 08/09/16 at 18: 30 Insulin Aspart (NovoLOG) 0-5 UNITS TIDWMEALS SQ Last administered on 08/10/16 07:34; Start 08/10/16 at 08:00; Stop 08/10/16 at 08:27; Status DC Dextrose (Dextrose 50%-Water Syringe) 12.5 gm PRN Q15MIN PRN IV SEE COMMENTS; Start 08/09/16 at 18:45; Stop 08/10/16 at 08:41; Status DC Ondansetron HCl (Zofran) 4 mg PRN Q6HRS PRN IV NAUSEA/VOMITING; Start 08/10/16 at 08:30 Acetaminophen (Tylenol) 650 mg PRN Q6HRS PRN PO pain; Start 08/10/16 at 08:30 Insulin Aspart (NovoLOG) 0-9 UNITS TIDWMEALS SQ ; Start 08/10/16 at 12:00 Dextrose (Dextrose 50%-Water Syringe) 12.5 gm PRN Q15MIN PRN IV SEE COMMENTS; Start 08/10/16 at 08:30 Amiodarone HCl (Cordarone) 200 mg DAILY PO ; Start 08/10/16 at 09:00 Aspirin (Children'S Aspirin) 81 mg DAILY PO ; Start 08/10/16 at 09:00 Atorvastatin Calcium (Lipitor) 40 mg QHS PO ; Start 08/10/16 at 21:00 Insulin Aspart (NovoLOG) 12 units TIDAC SQ ; Start 08/10/16 at 11:30 Metformin HCl (Glucophage) 1,000 mg BIDWMEALS PO ; Start 08/10/16 at 08:30 Metoprolol Tartrate (Lopressor) 50 mg BID PO ; Start 08/10/16 at 09:00 Lisinopril (Prinivil) 20 mg DAILY PO ; Start 08/10/16 at 09:00 Insulin Detemir (Levemir) 32 units QHS SQ ; Start 08/10/16 at 21:00 Ticagrelor (Brilinta) 90 mg BID PO ; Start 08/10/16 at 09:00 Active Scripts Active Brilinta (Ticagrelor) 90 Mg Tablet 90 Mg PO BID 30 Days Atorvastatin Calcium 40 Mg Tablet 40 Mg PO QHS 30 Days Aspirin Ec (Aspirin) 81 Mg Tablet.dr 81 Mg PO DAILYWBKFT 30 Days Amiodarone Hcl 200 Mg Tablet 200 Mg PO DAILY 30 Days Reported Metoprolol Tartrate 50 Mg Tablet 1 Tab PO BID NITROGLYCERIN SubLingual (Nitroglycerin) 0.4 Mg Tab.subl 1 Tab SL UD Novolog Flexpen (Insulin Aspart) 100 Unit/1 Ml Insuln.pen 12 Unit SQ TIDAC Metformin Hcl 1,000 Mg Tablet 1,000 Mg PO BIDWMEALS Lantus Solostar (Insulin Glargine,Hum.rec.anlog) 100 Unit/1 Ml Insuln.pen 32 Unit SQ QHS Enalapril Maleate 10 Mg Tablet 1 Tab PO DAILY Atorvastatin Calcium 40 Mg Tablet 1 Tab PO QHS Aspirin 81 Mg Tab.chew 1 Tab PO DAILY Vitals/I & O Vital Sign - Last 24 Hours 08/09/16 08/09/16 08/09/16 08/09/16 10:12 10:37 10:52 12:06 Temp 98.4 98.4 Pulse 70 65 66 Resp 18 18 18 16 B/P (MAP) 155/87 (109) 149/85 (106) 154/91 (112) Pulse Ox 99 97 98 99 O2 Delivery Room Air Room Air Room Air Nasal Cannula 08/09/16 08/09/16 08/09/16 08/09/16 12:09 12:20 12:36 13:00 Temp 97.9 97.9 Pulse 71 73 68 Resp 18 18 B/P (MAP) 119/73 (88) 119/72 (88) Pulse Ox 99 98 96 98 O2 Delivery Room Air Room Air Room Air Room Air 08/09/16 08/09/16 08/09/16 08/09/16 14:50 15:50 17:00 18:00 Pulse 76 77 78 74 Resp 18 18 18 B/P (MAP) 126/68 (87) 128/69 (88) 137/70 (92) 125/72 (89) Pulse Ox 97 96 97 97 O2 Delivery Room Air Room Air Room Air Room Air 08/09/16 08/09/16 08/09/16 08/09/16 19:00 20:00 21:00 22:00 Temp 97.9 97.9 Pulse 78 81 79 79 Resp 20 18 18 20 B/P (MAP) 135/75 (95) 143/77 (99) 155/86 (109) 148/77 (100) Pulse Ox 97 98 97 97 O2 Delivery Room Air Room Air Room Air Room Air 08/09/16 08/10/16 08/10/16 08/10/16 23:00 00:01 01:00 02:00 Temp 98.7 98.7 Pulse 78 78 80 76 Resp 18 18 18 18 B/P (MAP) 145/75 (98) 139/83 (101) 164/88 (113) 155/85 (108) Pulse Ox 96 96 97 97 O2 Delivery Room Air Room Air Room Air Room Air 08/10/16 08/10/16 08/10/16 08/10/16 03:00 04:05 05:00 06:01 Temp 99.5 99.5 Pulse 72 77 67 67 Resp 18 18 20 20 B/P (MAP) 150/84 (106) 164/73 (103) 134/65 (88) 140/74 (96) Pulse Ox 97 95 98 100 O2 Delivery Room Air Room Air Room Air Room Air 08/10/16 06:45 Pulse 69 Resp 20 B/P (MAP) 135/81 (99) Pulse Ox 98 O2 Delivery Room Air Intake and Output 08/09/16 08/09/16 08/10/16 15:00 23:00 07:00 Intake Total 180 ml 1384.48 ml 517.5 ml Output Total 1625 ml 650 ml Balance 180 ml -240.52 ml -132.5 ml AYE VIRK MD Aug 10, 2016 09:00
--- NOTE | 2016-08-10 09:07 | PDOC2 ---
CONSULT Date of Consult Date of Consult DATE: 08/10/16 TIME: 08:34 Reason for Consult Reason for Consult: recurrent RCA in-stent thrombosis; evaluation for CABG Referring Physician Referring Physician: Dr. Amado Lam Identification/Chief Complaint Chief Complaint chest pain; inferior STEMI Source Source: Chart review, Patient History of Present Illness Reason for Visit: 60 year old male with an abnormal MPI done at as part of a pre-op evaluation prior to undergoing left FPBG. Subsequently underwent cardiac catheterization with stent to RCA. Returned to cardiac cath rn about 1.5 - 2 hours later due to acute thrombosis in stent. Discharged on ASA/Plavix. Admitted to [facility] on 08/01/2016 with inferior STEMI and cardiac arrest. PTCA of in-stent thrombosis of RCA and RPL and remained on IV Aggrastat for about 2 days post procedure then converted to Brilinta 90 mg BID. Multiple rounds of VT post cath requiring compressions and shock. Treated with IV amiodarone, procainamide and BB. Echo prior to discharge on 08/07/2016 demonstrated mildly depressed LV function with EF of 45-50% and inferior, inferoseptal and inferolateral hypokinesis. Evaluated by CTS last week with recommendation to delay surgery as RCA was patent with recent PTCA and RCA would require ligation. Discharged home on 08/07/2016. Returned 08/09/2016 after developing diaphoresis followed by chest pain. EKG on presentation to ER with inferior STEMI and returned to cardiac cath rn with recurrent in-stent thrombosis of RCA stent followed by PTCA. Currently on heparin and Aggrastat drips. Pain free in ICU. Reason for Visit: CABG evaluation Past Medical History Cardiovascular: CAD (stent in RCA with multiple PCI for recurrent in-stent thrombosis; PTCA of RPL), HTN, [place] (inferior STEMI - 08/01/2016 & 08/09/2016), Hyperlipidemia, Other (ischemic cardiomyopathy - LVEF 45-50%; VT arrest - 2016; PAD with failed stent in LLE) Pulmonary: Bronchitis GI: No pertinent hx Heme/Onc: No pertinent hx Hepatobiliary: No pertinent hx Psych: No pertinent hx Musculoskeletal: low back pain Rheumatologic: No pertinent hx Infectious disease: No pertinent hx ENT: No pertinent hx Renal/: No pertinent hx Endocrine: Diabetes (type II; uncontrolled; with peripheral vascular complications) Dermatology: No pertinent hx Past Surgical History Past Surgical History: Other (multiple stents placed to the RCA, bilateral rotator cuff repair, left knee meniscectomy) Family History Family History: Family History Unknown Social History Social History disabled Quit ALCOHOL: none Drugs: None Lives: with Family (mother who has dementia; sister involved) Current Problem List Problem List Problems Medical Problems: (1) STEMI (ST elevation myocardial infarction) Status: Acute Current Medications Current Medications Current Medications Amiodarone HCl 900 mg/Dextrose 518 ml @ 0 mls/hr 1X ONCE IV ; Start 08/09/16 at 10:30; Stop 08/09/16 at 10:31; Status DC Heparin Sodium (Porcine) (Heparin Sodium) 4,000 unit 1X ONCE IV Last administered on 08/09/16t 10:14; Start 08/09/16 at 10:30; Stop 08/09/16 at 10:31 ; Status DC Heparin Sodium/ Dextrose 500 ml @ 0 mls/hr 1X ONCE IV Last administered on t 12:45; Start 08/09/16 at 10:30; Stop 08/09/16 at 10:31; Status DC Sodium Chloride 1,000 ml @ 100 mls/hr Q10H IV ; Start 08/09/16 at 10:17; Stop 08/09/16 at 20:16; Status DC Fentanyl Citrate (Fentanyl 2ml Vial) 100 mcg STK-MED ONCE .ROUTE ; Start at 11:01; Stop 08/09/16 at 11:02; Status DC Midazolam HCl (Versed) 2 mg STK-MED ONCE .ROUTE ; Start 08/09/16 at 11:01; Stop 08/09/16 at 11:02; Status DC Heparin Sodium/ Sodium Chloride 1,000 ml @ As Directed STK-MED ONCE .ROUTE ; Start 08/09/16 at 11:02; Stop 08/09/16 at 11:03; Status DC Iodixanol (Visipaque 320) 100 ml STK-MED ONCE .ROUTE ; Start 08/09/16 at 11:02; Stop 08/09/16 at 11:03; Status DC Lidocaine HCl 20 ml STK-MED ONCE .ROUTE ; Start 08/09/16 at 11:02; Stop at 11:03; Status DC Heparin Sodium (Porcine) (Heparin Sodium) 10,000 unit STK-MED ONCE .ROUTE ; Start 08/09/16 at 11:06; Stop 08/09/16 at 11:07; Status DC Heparin Sodium/ Sodium Chloride 1,000 unit 1X ONCE IART Last administered on 12:04; Start 08/09/16 at 11:30; Stop 08/10/16 at 07:43; Status DC Midazolam HCl (Versed) 2 mg 1X ONCE IV Last administered on 08/09/16 11:30; Start 08/09/16 at 11:30; Stop 08/09/16 at 11:31; Status DC Fentanyl Citrate (Fentanyl 2ml Vial) 100 mcg 1X ONCE IV Last administered on 12:06; Start 08/09/16 at 11:30; Stop 08/09/16 at 11:31; Status DC Iodixanol (Visipaque 320) 100 ml 1X ONCE IART Last administered on 08/09/16 12:04; Start 08/09/16 at 11:30; Stop 08/09/16 at 11:31; Status DC Lidocaine HCl 20 ml 1X ONCE IJ Last administered on 08/09/16 12:04; Start at 11:30; Stop 08/09/16 at 11:31; Status DC Heparin Sodium (Porcine) (Heparin Sodium) 2,000 unit 1X ONCE IV Last administered on 08/09/16 12:08; Start 08/09/16 at 11:30; Stop 08/09/16 at 11:31 ; Status DC Tirofiban/Sodium Chloride 250 ml @ As Directed STK-MED ONCE IV ; Start at 11:21; Stop 08/09/16 at 11:22; Status DC Info (Do NOT chart on this entry -- for MONITORING) 1 each PRN DAILY PRN MC SEE COMMENTS; Start 08/09/16 at 11:30; Stop 08/11/16 at 11:29 Tirofiban/Sodium Chloride 100 ml @ 0 mls/hr 1X ONCE IV Last administered on 11:30; Start 08/09/16 at 11:30; Stop 08/09/16 at 11:31; Status DC Tirofiban/Sodium Chloride 250 ml @ 0 mls/hr CONT PRN IV PER PROTOCOL Last administered on 08/09/16 22:05; Start 08/09/16 at 11:30; Stop 08/10/16 at 05:29 ; Status DC Heparin Sodium/ Dextrose 500 ml @ 20 mls/hr CONT PRN IV SEE I/O RECORD Last administered on 08/10/16 05:14; Start 08/09/16 at 18:30 Heparin Sodium (Porcine) (Heparin Sodium) 2,300 unit PRN Q6HRS PRN IV FOR UFH LEVEL LESS THAN 0.2 Last administered on 08/09/16 18:37; Start 08/09/16 at 18: 30 Insulin Aspart (NovoLOG) 0-5 UNITS TIDWMEALS SQ Last administered on 08/10/16 07:34; Start 08/10/16 at 08:00; Stop 08/10/16 at 08:27; Status DC Dextrose (Dextrose 50%-Water Syringe) 12.5 gm PRN Q15MIN PRN IV SEE COMMENTS; Start 08/09/16 at 18:45 Ondansetron HCl (Zofran) 4 mg PRN Q6HRS PRN IV NAUSEA/VOMITING; Start 08/10/16 at 08:30 Acetaminophen (Tylenol) 650 mg PRN Q6HRS PRN PO pain; Start 08/10/16 at 08:30 Insulin Aspart (NovoLOG) 0-9 UNITS TIDWMEALS SQ ; Start 08/10/16 at 12:00 Dextrose (Dextrose 50%-Water Syringe) 12.5 gm PRN Q15MIN PRN IV SEE COMMENTS; Start 08/10/16 at 08:30 Amiodarone HCl (Cordarone) 200 mg DAILY PO ; Start 08/10/16 at 09:00 Aspirin (Children'S Aspirin) 81 mg DAILY PO ; Start 08/10/16 at 09:00 Atorvastatin Calcium (Lipitor) 40 mg QHS PO ; Start 08/10/16 at 21:00 Insulin Aspart (NovoLOG) 12 units TIDAC SQ ; Start 08/10/16 at 11:30; Status UNV Metformin HCl (Glucophage) 1,000 mg BIDWMEALS PO ; Start 08/10/16 at 08:30 Metoprolol Tartrate (Lopressor) 50 mg BID PO ; Start 08/10/16 at 09:00 Non-Formulary Medication 1 tab DAILY PO ; Start 08/10/16 at 09:00; Status UNV Non-Formulary Medication 32 unit QHS SQ ; Start 08/10/16 at 21:00; Status UNV Ticagrelor (Brilinta) 90 mg BID PO ; Start 08/10/16 at 09:00; Status UNV Active Scripts Active Brilinta (Ticagrelor) 90 Mg Tablet 90 Mg PO BID 30 Days Atorvastatin Calcium 40 Mg Tablet 40 Mg PO QHS 30 Days Aspirin Ec (Aspirin) 81 Mg Tablet.dr 81 Mg PO DAILYWBKFT 30 Days Amiodarone Hcl 200 Mg Tablet 200 Mg PO DAILY 30 Days Reported Metoprolol Tartrate 50 Mg Tablet 1 Tab PO BID NITROGLYCERIN SubLingual (Nitroglycerin) 0.4 Mg Tab.subl 1 Tab SL UD Novolog Flexpen (Insulin Aspart) 100 Unit/1 Ml Insuln.pen 12 Unit SQ TIDAC Metformin Hcl 1,000 Mg Tablet 1,000 Mg PO BIDWMEALS Lantus Solostar (Insulin Glargine,Hum.rec.anlog) 100 Unit/1 Ml Insuln.pen 32 Unit SQ QHS Enalapril Maleate 10 Mg Tablet 1 Tab PO DAILY Atorvastatin Calcium 40 Mg Tablet 1 Tab PO QHS Aspirin 81 Mg Tab.chew 1 Tab PO DAILY Allergies Allergies: Coded Allergies: No Known Drug Allergies (Unverified , 08/01/16) ROS General: No: Chills, Night Sweats, Fatigue, Malaise, Appetite, Other PSYCHOLOGICAL ROS: No: Anxiety, Behavioral Disorder, Concentration difficultie , Decreased libido, Depression, Disorientation, Hallucinations, Hostility, Irritablity, Memory difficulties, Mood Swings, Obsessive thoughts, Physical abuse, Sexual abuse, Sleep disturbances, Suicidal ideation, Other Eyes: No Blurry vision, No Decreased vision, No Double vision, No Dry eyes, No Excessive tearing, No Eye Pain, No Itchy Eyes, No Loss of vision, No Photophobia , No Scotomata, No Uses contacts, No Uses glasses, No Other HEENT: No: Heacaches, Visual Changes, Hearing change, Nasal congestion, Nasal discharge, Oral lesions, Sinus pain, Sore Throat, Epistaxis, Sneezing, Snoring, Tinnitus, Vertigo, Vocal changes, Other ALLERGY AND IMMUNOLOGY: No: Hives, Insect Bite Sensitivity, Itchy/Watery Eyes, Nasal Congestion, Post Nasal Drip, Seasonal Allergies, Other Hematological and Lymphatic: No: Bleeding Problems, Blood Clots, Blood Transfusions, Brusing, Night Sweats, Pallor, Swollen Lymph Nodes, Other ENDOCRINE: No: Breast Changes, Galactorrhea, Hair Pattern Changes, Hot Flashes , Malaise/lethargy, Mood Swings, Palpitations, Polydipsia/polyuria, Skin Changes , Temperature Intolerance, Unexpected Weight Changes, Other Respiratory: No: Cough, Hemoptysis, Orthopnea, Pleuritic Pain, Shortness of breath, SOB with excertion, Sputum Changes, Stridor, Tachypnea, Wheezing, Other Cardiovascular: No Chest Pain, No Palpitations, No Orthopnea, No Paroxysmal Noc. Dyspnea, No Edema, No Lt Headedness, No Other Gastrointestinal: No Nausea, No Vomiting, No Abdominal Pain, No Diarrhea, No Constipation, No Melena, No Hematochezia, No Other Genitourinary: YES , No Dysuria, No Frequency, No Incontinence, No Hematuria, No Retention, No Discharge, No Urgency, No Pain, No Flank Pain, No Other Musculoskeletal: Yes Other (back pain ) Neurological: No Behavorial Changes, No Bowel/Bladder ControlChng, No Confusion , No Dizziness, No Gait Disturbance, No Headaches, No Impaired Coord/balance, No Memory Loss, No Numbness/Tingling, No Seizures, No Speech Problems, No Tremors, No Visual Changes, No Weakness, No Other Skin: No Dry Skin, No Eczema, No Hair Changes, No Lumps, No Mole Changes, No Mottling, No Nail Changes, No Pruritus, No Rash, No Skin Lesion Changes, No Other, No Acne Physical Exam General: Alert, Oriented X3, Cooperative, No acute distress HEENT: Atraumatic, PERRLA Lungs: Clear to auscultation Heart: Regular rate, Normal S1, Normal S2, No murmurs, Other (? left carotid bruit) Abdomen: Normal bowel sounds, Soft Extremities: No edema, Normal pulses (2+ radial; 1+/weak DP and PT) Skin: No rashes Neuro: Normal speech Psych/Mental Status: Mental status NL, Mood NL MUSCULOSKELETAL: No deformity Vitals VITALS Vital Signs Date Time Temp Pulse Resp B/P (MAP) Pulse Ox O2 Delivery O2 Flow Rate FiO2 08/10/16 06:45 69 20 135/81 (99) 98 Room Air 08/10/16 04:05 99.5 99.5 Labs Labs Laboratory Tests Test 08/09/16 10:26 08/09/16 10:30 08/09/16 13:55 08/09/16 17:50 Bedside Troponin I 0.71 ng/ml (<0.08) White Blood Count 9.2 x10^3/uL (4.0-11.0) Red Blood Count 4.75 x10^6/uL (4.30-5.70) Hemoglobin 14.4 g/dL (13.0-17.5) Hematocrit 41.3 % (39.0-53.0) Mean Corpuscular Volume 87 fL (79-100) Mean Corpuscular Hemoglobin 30 pg (25-35) Mean Corpuscular Hemoglobin Concent 35 g/dL (31-37) Red Cell Distribution Width 13.5 % (11.5-14.5) Platelet Count 481 x10^3/uL (140-400) Neutrophils (%) (Auto) 66 % (31-73) Lymphocytes (%) (Auto) 17 % (24-48) Monocytes (%) (Auto) 13 % (0-9) Eosinophils (%) (Auto) 3 % (0-3) Basophils (%) (Auto) 1 % (0-3) Neutrophils # (Auto) 6.1 x10^3uL (1.8-7.7) Lymphocytes # (Auto) 1.6 x10^3/uL (1.0-4.8) Monocytes # (Auto) 1.2 x10^3/uL (0.0-1.1) Eosinophils # (Auto) 0.3 x10^3/uL (0.0-0.7) Basophils # (Auto) 0.1 x10^3/uL (0.0-0.2) Prothrombin Time 14.1 SEC (11.7-14.0) Prothromb Time International Ratio 1.2 (0.8-1.1) Sodium Level 136 mmol/L (136-145) Potassium Level 4.8 mmol/L (3.5-5.1) Chloride Level 100 mmol/L (98-107) Carbon Dioxide Level 26 mmol/L (21-32) Anion Gap 10 (6-14) Blood Urea Nitrogen 14 mg/dL (8-26) Creatinine 0.7 mg/dL (0.7-1.3) Estimated GFR (Cockcroft-Gault) 115.0 Glucose Level 302 mg/dL (70-99) Calcium Level 9.5 mg/dL (8.5-10.1) Magnesium Level 2.0 mg/dL (1.8-2.4) Total Bilirubin 0.5 mg/dL (0.2-1.0) Direct Bilirubin 0.1 mg/dL (0.0-0.2) Aspartate Amino Transf (AST/SGOT) 26 U/L (15-37) Alanine Aminotransferase (ALT/SGPT) 42 U/L (16-63) Alkaline Phosphatase 111 U/L (46-116) Creatine Kinase 48 U/L (39-308) Creatine Kinase MB (Mass) 1.4 ng/mL (0.0-3.6) Creatine Kinase MB Relative Index % (0-4) Troponin I Quantitative 1.295 ng/mL (0.000-0.055) DV-Ptn-H-Type Natriuretic Peptide 559 pg/mL (0-124) Total Protein 7.4 g/dL (6.4-8.2) Albumin 2.9 g/dL (3.4-5.0) Nasal Screen MRSA (PCR) Negative (Negative) Heparin Anti-Xa Act, Unfractionated 0.10 IU/mL (0.30-0.70) Test 08/09/16 23:55 08/10/16 06:20 08/10/16 07:31 Heparin Anti-Xa Act, Unfractionated 0.20 IU/mL (0.30-0.70) 0.24 IU/mL (0.30-0.70) Glucose (Fingerstick) 187 mg/dL (70-99) Laboratory Tests Test 08/09/16 10:26 08/09/16 10:30 08/09/16 13:55 08/09/16 17:50 Bedside Troponin I 0.71 ng/ml (<0.08) White Blood Count 9.2 x10^3/uL (4.0-11.0) Red Blood Count 4.75 x10^6/uL (4.30-5.70) Hemoglobin 14.4 g/dL (13.0-17.5) Hematocrit 41.3 % (39.0-53.0) Mean Corpuscular Volume 87 fL (79-100) Mean Corpuscular Hemoglobin 30 pg (25-35) Mean Corpuscular Hemoglobin Concent 35 g/dL (31-37) Red Cell Distribution Width 13.5 % (11.5-14.5) Platelet Count 481 x10^3/uL (140-400) Neutrophils (%) (Auto) 66 % (31-73) Lymphocytes (%) (Auto) 17 % (24-48) Monocytes (%) (Auto) 13 % (0-9) Eosinophils (%) (Auto) 3 % (0-3) Basophils (%) (Auto) 1 % (0-3) Neutrophils # (Auto) 6.1 x10^3uL (1.8-7.7) Lymphocytes # (Auto) 1.6 x10^3/uL (1.0-4.8) Monocytes # (Auto) 1.2 x10^3/uL (0.0-1.1) Eosinophils # (Auto) 0.3 x10^3/uL (0.0-0.7) Basophils # (Auto) 0.1 x10^3/uL (0.0-0.2) Prothrombin Time 14.1 SEC (11.7-14.0) Prothromb Time International Ratio 1.2 (0.8-1.1) Sodium Level 136 mmol/L (136-145) Potassium Level 4.8 mmol/L (3.5-5.1) Chloride Level 100 mmol/L (98-107) Carbon Dioxide Level 26 mmol/L (21-32) Anion Gap 10 (6-14) Blood Urea Nitrogen 14 mg/dL (8-26) Creatinine 0.7 mg/dL (0.7-1.3) Estimated GFR (Cockcroft-Gault) 115.0 Glucose Level 302 mg/dL (70-99) Calcium Level 9.5 mg/dL (8.5-10.1) Magnesium Level 2.0 mg/dL (1.8-2.4) Total Bilirubin 0.5 mg/dL (0.2-1.0) Direct Bilirubin 0.1 mg/dL (0.0-0.2) Aspartate Amino Transf (AST/SGOT) 26 U/L (15-37) Alanine Aminotransferase (ALT/SGPT) 42 U/L (16-63) Alkaline Phosphatase 111 U/L (46-116) Creatine Kinase 48 U/L (39-308) Creatine Kinase MB (Mass) 1.4 ng/mL (0.0-3.6) Creatine Kinase MB Relative Index % (0-4) Troponin I Quantitative 1.295 ng/mL (0.000-0.055) RQ-Gdc-L-Type Natriuretic Peptide 559 pg/mL (0-124) Total Protein 7.4 g/dL (6.4-8.2) Albumin 2.9 g/dL (3.4-5.0) Nasal Screen MRSA (PCR) Negative (Negative) Heparin Anti-Xa Act, Unfractionated 0.10 IU/mL (0.30-0.70) Test 08/09/16 23:55 08/10/16 06:20 08/10/16 07:31 Heparin Anti-Xa Act, Unfractionated 0.20 IU/mL (0.30-0.70) 0.24 IU/mL (0.30-0.70) Glucose (Fingerstick) 187 mg/dL (70-99) Images Images 08/09/2106: CXR: Heart size is at the upper limits of normal. There is no congestive heart failure. There is no focal infiltrate. There is no significant pleural fluid or pneumothorax. The visualized bony structures appear grossly intact. IMPRESSION: No acute finding seen in the chest 08/09/2016: Cardiac Cath Conclusion 1. 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 2. Successful PTCA of the distal RCA 3. IVUS of the RCA 4. Abdominal aortography reveals no high grade inflow disease. Assessment/Plan Assessment/Plan 1. inferior STEMI, recurrent recurrent RCA in-stent thrombosis on DAPT PTCA to stent on 08/09/2016 currently treated with heparin and GP IIb/IIIa inhibitor needs single vessel bypass to RCA - ? Sunday 2. ? left carotid bruit CDU today 3. HTN continue medical management 4. HLD continue statin therapy 5. PAD failed stent LLE and with FPBG pending 6. DM, II, uncontrolled BS 300 POA check A1C LEANNE CROOK APRN Aug 10, 2016 09:07
[2016-08-10] MEDS: METOPROLOL TART IMMED RELEASE 50 MG TABLET. PO SCH ×2 (10:26→21:26)
[2016-08-10] MEDS: AMIODARONE HCL 200 MG TABLET. PO SCH (10:27)
--- NOTE | 2016-08-10 10:50 | PDOC ---
LIANG CASTELAN PHOTOGRAPHIC SPECIALIST 08/10/16 1050: CARDIO Progress Notes Date and Time Date of Service 08/10/2016 Time of Evaluation 1040 Subjective Subjective: No Chest Pain, No shortness of breath, No Palpitations, No Dizziness Vitals Vitals Vital Signs Date Time Temp Pulse Resp B/P (MAP) Pulse Ox O2 Delivery O2 Flow Rate FiO2 08/10/16 10:27 76 136/76 08/10/16 10:00 18 97 Room Air 08/10/16 08:00 99.4 99.4 Weight Weight [ ] Input and Output Intake and Output Intake and Output 08/10/16 07:00 Intake Total 2081.98 ml Output Total 2275 ml Balance -193.02 ml Intake Oral 840 ml IV Total 1241.98 ml Output Urine Total 2275 ml Laboratory Labs Laboratory Tests Test 08/09/16 13:55 08/09/16 17:50 08/09/16 23:55 08/10/16 06:20 Nasal Screen MRSA (PCR) Negative (Negative) Heparin Anti-Xa Act, Unfractionated 0.10 IU/mL (0.30-0.70) 0.20 IU/mL (0.30-0.70) 0.24 IU/mL (0.30-0.70) Test 08/10/16 07:31 Glucose (Fingerstick) 187 mg/dL (70-99) Physical Exam HEENT: Neck Supple W Full Motion Chest: Symmetric LUNGS: Clear to Auscultation Heart: S1S2, RRR (SR) Abdomen: Soft N/T Extremities: No Calf Tenderness Neurology: alert, oriented, follow commands Other Exams right groin arteriotomy site intact with mild swelling, no erythema, moderate bruising to region, neurovascular status to bilateral LE intact. Assessment Assessment 1. Recurrent inferior STEMI (3 times in 1 week) of the distal RCA stents despite brilinta/ASA use S/P Successful PTCA of the distal RCA tolerated procedure EF via LHC 50% 2. HTN: controlled 3. HLD: statin 4. DM2: uncontrolled, per PCP 5. Tobaccoism 6. Prior hx of VT storm Recommendations 1. Follow CTS- planning for CABG 2. Continue with med optimization 3. Continue with tirofiban/heparin/ASA 4. Will hold ACEi if warranted by CTS 5. Stop metformin, post cath 6. Continue metoprolol and amiodarone JEFFREY PENA MD 08/10/16 1450: CARDIO Progress Notes Plan Plan Pt. seen and examined. No acute events. Agree with above [employer] note. Normal cardiac exam. No EKG changes. Labs reviewed. Supportive care until CABG on sunday. If not amenable, will then perform PCI of the RCA tomorrow. Thanks - LIANG CASTELAN APRN Aug 10, 2016 10:50 JEFFREY PENA MD Aug 10, 2016 14:50
[2016-08-10] MEDS: INSULIN ASPART 300 UNITS/3 ML INSULN.PEN SQ SCH ×4 (11:43→17:00)
--- NOTE | 2016-08-10 12:23 | RAD ---
Indication recent VT. Anticipated coronary artery bypass surgery. Presurgical evaluation. Grayscale color Doppler and spectral imaging was performed. Examination was targeted to the carotid bifurcations. On the right there is some minimal plaquing. The color Doppler images do not suggest significant turbulence. The common carotid waveform and velocities are normal. The internal carotid waveform and velocities are also normal. External carotid has a slightly elevated peak velocity which is likely incidental. The vertebral is patent and demonstrates normal directional flow. On the left there is modest plaquing at the bifurcation. The color Doppler images do not suggest significant turbulence. There is discrepancy in the peak velocities of the left and right common carotid vessels. This is probably incidental. The internal carotid waveform and velocities are normal. The external carotid has a normal appearance. The vertebral is patent and demonstrates normal directional flow. IMPRESSION: Modest plaquing at the left carotid bifurcation. No evidence of hemodynamically significant stenosis at either carotid bifurcation. Stenosis 0-50%. Note: Stenosis calculations for CT, MR and conventional angiography are based upon determination of the distal ICA diameter in accordance with the NASCET methodology. Stenosis calculations for doppler studies are derived from validated velocity criteria which are known to correlate with NASCET methodology of determining stenosis.
[2016-08-10 15:21] LABS: BILIRUBIN,URINE NEGATIVE (NEG); GLUCOSE,URINE 500 mg/dL (NEG); NITRITE,URINE NEGATIVE (NEG); PH,URINE 6.5; PROTEIN,URINE NEGATIVE (NEG-TRACE)
[2016-08-10 15:59] LABS: BACTERIA,URINE FEW /HPF (0-FEW); SQUAMOUS EPITHELIAL CELL,UR OCC /LPF; WBC,URINE OCC /HPF (0-4)
[2016-08-10] MEDS ORDERED: INSULIN DETEMIR 300 UNITS/3 ML INSULN.PEN. SQ SCH (21:00)
[2016-08-10] MEDS: ATORVASTATIN CALCIUM 40 MG TABLET. PO SCH (21:26)
[2016-08-11 02:11] LABS: BASO # 0.1 x10^3/uL (0.0-0.2); BASO % 1 % (0-3); EOS % 3 % (0-3); HEMATOCRIT 40.1 % (39.0-53.0); HEMOGLOBIN 13.6 g/dL (13.0-17.5); LYMPH # 2.6 x10^3/uL (1.0-4.8); LYMPH % 26 % (24-48); MEAN CORPUSCULAR HEMOGLOBIN 30 pg (25-35); MEAN CORPUSCULAR HGB CONC 34 g/dL (31-37); MEAN CORPUSCULAR VOLUME 88 fL (79-100); MONO % 11 % (0-9); NEUT % 60 % (31-73); PLATELET COUNT 373 x10^3/uL (140-400); RED BLOOD COUNT 4.56 x10^6/uL (4.30-5.70); RED CELL DISTRIBUTION WIDTH 13.7 % (11.5-14.5); WHITE BLOOD COUNT 10.2 x10^3/uL (4.0-11.0)
[2016-08-11] MEDS: TIROFIBAN 12.5MG -0.9% NS 250 ML IV PRN ×2 (02:31→20:33)
[2016-08-11 02:32] LABS: PROTHROMBIN TIME PATIENT 12.8 SEC (11.7-14.0)
[2016-08-11 02:44] LABS: ALBUMIN 2.9 g/dL (3.4-5.0); ALBUMIN/GLOBULIN RATIO 0.7 (1.0-1.7); CALCIUM 9.1 mg/dL (8.5-10.1); CREATININE 0.7 mg/dL (0.7-1.3); POTASSIUM 4.1 mmol/L (3.5-5.1); TOTAL BILIRUBIN 0.4 mg/dL (0.2-1.0)
[2016-08-11 03:07] VITALS: BP 125/59
[2016-08-11 07:52] VITALS: BP 133/80
[2016-08-11] MEDS: METOPROLOL TART IMMED RELEASE 50 MG TABLET. PO SCH ×2 (09:58→20:38)
[2016-08-11] MEDS: AMIODARONE HCL 200 MG TABLET. PO SCH (09:58)
[2016-08-11] MEDS: INSULIN ASPART 300 UNITS/3 ML INSULN.PEN SQ SCH ×5 (10:07→17:00)
--- NOTE | 2016-08-11 10:10 | RAD ---
Bilateral lower extremity vein mapping, 08/11/2016: History: Preop evaluation for right lower extremity graft, for full vascular disease Duplex evaluation of the greater and lesser saphenous veins in both lower extremities was performed including grayscale, color-flow and spectral Doppler analysis. On the right, the greater saphenous vein in the thigh is patent measuring 2.7 to 5.1 mm. The greater saphenous vein is not visible in the right lower leg. The right lesser saphenous vein is patent measuring 2.9 to 4.0 mm. On the left, the greater saphenous vein is patent measuring 3.4 to 5.5 mm in diameter in the thigh and 2.8 to 3.0 mm in the lower leg. The left lesser saphenous vein is patent measuring 2.6 to 6.3 mm. IMPRESSION: 1. The right greater saphenous vein is patent in the thigh, but is not visible on the lower leg, with measurements as described above. 2. Patent left greater saphenous and bilateral lesser saphenous veins as described above.
[2016-08-11 10:24] VITALS: BP 125/73
[2016-08-11] MEDS ORDERED: INSULIN ASPART 300 UNITS/3 ML INSULN.PEN SQ SCH (11:30)
--- NOTE | 2016-08-11 11:42 | PDOC ---
PROGRESS NOTES Chief Complaint Chief Complaint 1. NSTEMI s/p balloon angioplasty (08/09) 2. HTN 3. Dyslipidemia 4. DM 2 uncontrolled, non compliant with [id number] 5. Ex smoker 6. Mild to mod pcm History of Present Illness History of Present Illness BS 200s today - but looking at MAR, sometimes 12 units novolog TID with meals is not administered by RN bec of "not too high BS" On phobne, no CP, SOA VS ok Does not like food in hospital EARLIER ENTRY: Seen in ICU post balloon angioplasty 08/09 NO CP VS ok On heparin gtt Looking at home meds, on statin 40, ASA 81 and brilinta 90 BID. - hx of multiple stents in past CLaims med compliance I have resumed those meds if ok with cards PLanned for CABG sunday - TCVS consulted Pt non compliant with insulin at home PLAN: Keep novolog 12 TID and levemir 32 plus SSI Hgba1c is 10! PLanned for cabg sunday RN and pt Vitals Vitals Vital Signs Date Time Temp Pulse Resp B/P (MAP) Pulse Ox O2 Delivery O2 Flow Rate FiO2 08/11/16 10:24 97.8 68 18 125/73 (90) 97 Room Air 97.8 Physical Exam General: Alert, Oriented X3, Cooperative, No acute distress Heart: Regular rate, Normal S1, Normal S2, No murmurs, Other (? left carotid bruit) Lungs: Clear Abdomen: Normal bowel sounds, Soft Extremities: No edema, Normal pulses (2+ radial; 1+/weak DP and PT) Skin: No rashes Labs LABS Laboratory Tests Test 08/10/16 11:55 08/10/16 14:45 08/10/16 17:25 08/10/16 19:35 Heparin Anti-Xa Act, Unfractionated 0.40 IU/mL (0.30-0.70) 0.48 IU/mL (0.30-0.70) Urine Collection Type Void Urine Color Yellow Urine Clarity Clear Urine pH 6.5 Urine Specific [place] 1.015 Urine Protein Negative mg/dL (NEG-TRACE) Urine Glucose (UA) 500 mg/dL (NEG) Urine Ketones (Stick) Negative mg/dL (NEG) Urine Blood Negative (NEG) Urine Nitrite Negative (NEG) Urine Bilirubin Negative (NEG) Urine Urobilinogen Dipstick 1.0 mg/dL (0.2 mg/dL) Urine Leukocyte Esterase Negative (NEG) Urine RBC 11-20 /HPF (0-2) Urine WBC Occ /HPF (0-4) Urine Squamous Epithelial Cells Occ /LPF Urine Bacteria Few /HPF (0-FEW) Urine Mucus Slight /LPF Glucose (Fingerstick) 94 mg/dL (70-99) Test 08/10/16 20:48 08/11/16 02:00 08/11/16 07:55 08/11/16 10:26 Glucose (Fingerstick) 166 mg/dL (70-99) 208 mg/dL (70-99) 249 mg/dL (70-99) White Blood Count 10.2 x10^3/uL (4.0-11.0) Red Blood Count 4.56 x10^6/uL (4.30-5.70) Hemoglobin 13.6 g/dL (13.0-17.5) Hematocrit 40.1 % (39.0-53.0) Mean Corpuscular Volume 88 fL (79-100) Mean Corpuscular Hemoglobin 30 pg (25-35) Mean Corpuscular Hemoglobin Concent 34 g/dL (31-37) Red Cell Distribution Width 13.7 % (11.5-14.5) Platelet Count 373 x10^3/uL (140-400) Neutrophils (%) (Auto) 60 % (31-73) Lymphocytes (%) (Auto) 26 % (24-48) Monocytes (%) (Auto) 11 % (0-9) Eosinophils (%) (Auto) 3 % (0-3) Basophils (%) (Auto) 1 % (0-3) Neutrophils # (Auto) 6.1 x10^3uL (1.8-7.7) Lymphocytes # (Auto) 2.6 x10^3/uL (1.0-4.8) Monocytes # (Auto) 1.1 x10^3/uL (0.0-1.1) Eosinophils # (Auto) 0.3 x10^3/uL (0.0-0.7) Basophils # (Auto) 0.1 x10^3/uL (0.0-0.2) Prothrombin Time 12.8 SEC (11.7-14.0) Prothromb Time International Ratio 1.0 (0.8-1.1) Activated Partial Thromboplast Time 74 SEC (24-38) Heparin Anti-Xa Act, Unfractionated 0.55 IU/mL (0.30-0.70) 0.57 IU/mL (0.30-0.70) Sodium Level 136 mmol/L (136-145) Potassium Level 4.1 mmol/L (3.5-5.1) Chloride Level 100 mmol/L (98-107) Carbon Dioxide Level 26 mmol/L (21-32) Anion Gap 10 (6-14) Blood Urea Nitrogen 11 mg/dL (8-26) Creatinine 0.7 mg/dL (0.7-1.3) Estimated GFR (Cockcroft-Gault) 115.0 BUN/Creatinine Ratio 16 (6-20) Glucose Level 179 mg/dL (70-99) Calcium Level 9.1 mg/dL (8.5-10.1) Total Bilirubin 0.4 mg/dL (0.2-1.0) Aspartate Amino Transf (AST/SGOT) 20 U/L (15-37) Alanine Aminotransferase (ALT/SGPT) 35 U/L (16-63) Alkaline Phosphatase 103 U/L (46-116) Total Protein 7.0 g/dL (6.4-8.2) Albumin 2.9 g/dL (3.4-5.0) Albumin/Globulin Ratio 0.7 (1.0-1.7) Review of Systems Review of Systems denies 14 pt Assessment and Plan Assessmemt and Plan Problems Medical Problems: (1) STEMI (ST elevation myocardial infarction) Status: Acute Problems: Comment Review of Relevant I have reviewed the following items rachel (where applicable) has been applied. Labs Laboratory Tests Test 08/09/16 13:55 08/09/16 17:50 08/09/16 23:55 08/10/16 06:20 Nasal Screen MRSA (PCR) Negative (Negative) Heparin Anti-Xa Act, Unfractionated 0.10 IU/mL (0.30-0.70) 0.20 IU/mL (0.30-0.70) 0.24 IU/mL (0.30-0.70) Hemoglobin A1c 10.6 % (4.8-5.6) Test 08/10/16 07:31 08/10/16 11:38 08/10/16 11:55 08/10/16 14:45 Glucose (Fingerstick) 187 mg/dL (70-99) 213 mg/dL (70-99) Heparin Anti-Xa Act, Unfractionated 0.40 IU/mL (0.30-0.70) Urine Collection Type Void Urine Color Yellow Urine Clarity Clear Urine pH 6.5 Urine Specific [place] 1.015 Urine Protein Negative mg/dL (NEG-TRACE) Urine Glucose (UA) 500 mg/dL (NEG) Urine Ketones (Stick) Negative mg/dL (NEG) Urine Blood Negative (NEG) Urine Nitrite Negative (NEG) Urine Bilirubin Negative (NEG) Urine Urobilinogen Dipstick 1.0 mg/dL (0.2 mg/dL) Urine Leukocyte Esterase Negative (NEG) Urine RBC 11-20 /HPF (0-2) Urine WBC Occ /HPF (0-4) Urine Squamous Epithelial Cells Occ /LPF Urine Bacteria Few /HPF (0-FEW) Urine Mucus Slight /LPF Test 08/10/16 17:25 08/10/16 19:35 08/10/16 20:48 08/11/16 02:00 Glucose (Fingerstick) 94 mg/dL (70-99) 166 mg/dL (70-99) Heparin Anti-Xa Act, Unfractionated 0.48 IU/mL (0.30-0.70) 0.55 IU/mL (0.30-0.70) White Blood Count 10.2 x10^3/uL (4.0-11.0) Red Blood Count 4.56 x10^6/uL (4.30-5.70) Hemoglobin 13.6 g/dL (13.0-17.5) Hematocrit 40.1 % (39.0-53.0) Mean Corpuscular Volume 88 fL (79-100) Mean Corpuscular Hemoglobin 30 pg (25-35) Mean Corpuscular Hemoglobin Concent 34 g/dL (31-37) Red Cell Distribution Width 13.7 % (11.5-14.5) Platelet Count 373 x10^3/uL (140-400) Neutrophils (%) (Auto) 60 % (31-73) Lymphocytes (%) (Auto) 26 % (24-48) Monocytes (%) (Auto) 11 % (0-9) Eosinophils (%) (Auto) 3 % (0-3) Basophils (%) (Auto) 1 % (0-3) Neutrophils # (Auto) 6.1 x10^3uL (1.8-7.7) Lymphocytes # (Auto) 2.6 x10^3/uL (1.0-4.8) Monocytes # (Auto) 1.1 x10^3/uL (0.0-1.1) Eosinophils # (Auto) 0.3 x10^3/uL (0.0-0.7) Basophils # (Auto) 0.1 x10^3/uL (0.0-0.2) Prothrombin Time 12.8 SEC (11.7-14.0) Prothromb Time International Ratio 1.0 (0.8-1.1) Activated Partial Thromboplast Time 74 SEC (24-38) Sodium Level 136 mmol/L (136-145) Potassium Level 4.1 mmol/L (3.5-5.1) Chloride Level 100 mmol/L (98-107) Carbon Dioxide Level 26 mmol/L (21-32) Anion Gap 10 (6-14) Blood Urea Nitrogen 11 mg/dL (8-26) Creatinine 0.7 mg/dL (0.7-1.3) Estimated GFR (Cockcroft-Gault) 115.0 BUN/Creatinine Ratio 16 (6-20) Glucose Level 179 mg/dL (70-99) Calcium Level 9.1 mg/dL (8.5-10.1) Total Bilirubin 0.4 mg/dL (0.2-1.0) Aspartate Amino Transf (AST/SGOT) 20 U/L (15-37) Alanine Aminotransferase (ALT/SGPT) 35 U/L (16-63) Alkaline Phosphatase 103 U/L (46-116) Total Protein 7.0 g/dL (6.4-8.2) Albumin 2.9 g/dL (3.4-5.0) Albumin/Globulin Ratio 0.7 (1.0-1.7) Test 08/11/16 07:55 08/11/16 10:26 Heparin Anti-Xa Act, Unfractionated 0.57 IU/mL (0.30-0.70) Glucose (Fingerstick) 208 mg/dL (70-99) 249 mg/dL (70-99) Laboratory Tests Test 08/10/16 11:55 08/10/16 14:45 08/10/16 17:25 08/10/16 19:35 Heparin Anti-Xa Act, Unfractionated 0.40 IU/mL (0.30-0.70) 0.48 IU/mL (0.30-0.70) Urine Collection Type Void Urine Color Yellow Urine Clarity Clear Urine pH 6.5 Urine Specific [place] 1.015 Urine Protein Negative mg/dL (NEG-TRACE) Urine Glucose (UA) 500 mg/dL (NEG) Urine Ketones (Stick) Negative mg/dL (NEG) Urine Blood Negative (NEG) Urine Nitrite Negative (NEG) Urine Bilirubin Negative (NEG) Urine Urobilinogen Dipstick 1.0 mg/dL (0.2 mg/dL) Urine Leukocyte Esterase Negative (NEG) Urine RBC 11-20 /HPF (0-2) Urine WBC Occ /HPF (0-4) Urine Squamous Epithelial Cells Occ /LPF Urine Bacteria Few /HPF (0-FEW) Urine Mucus Slight /LPF Glucose (Fingerstick) 94 mg/dL (70-99) Test 08/10/16 20:48 08/11/16 02:00 08/11/16 07:55 08/11/16 10:26 Glucose (Fingerstick) 166 mg/dL (70-99) 208 mg/dL (70-99) 249 mg/dL (70-99) White Blood Count 10.2 x10^3/uL (4.0-11.0) Red Blood Count 4.56 x10^6/uL (4.30-5.70) Hemoglobin 13.6 g/dL (13.0-17.5) Hematocrit 40.1 % (39.0-53.0) Mean Corpuscular Volume 88 fL (79-100) Mean Corpuscular Hemoglobin 30 pg (25-35) Mean Corpuscular Hemoglobin Concent 34 g/dL (31-37) Red Cell Distribution Width 13.7 % (11.5-14.5) Platelet Count 373 x10^3/uL (140-400) Neutrophils (%) (Auto) 60 % (31-73) Lymphocytes (%) (Auto) 26 % (24-48) Monocytes (%) (Auto) 11 % (0-9) Eosinophils (%) (Auto) 3 % (0-3) Basophils (%) (Auto) 1 % (0-3) Neutrophils # (Auto) 6.1 x10^3uL (1.8-7.7) Lymphocytes # (Auto) 2.6 x10^3/uL (1.0-4.8) Monocytes # (Auto) 1.1 x10^3/uL (0.0-1.1) Eosinophils # (Auto) 0.3 x10^3/uL (0.0-0.7) Basophils # (Auto) 0.1 x10^3/uL (0.0-0.2) Prothrombin Time 12.8 SEC (11.7-14.0) Prothromb Time International Ratio 1.0 (0.8-1.1) Activated Partial Thromboplast Time 74 SEC (24-38) Heparin Anti-Xa Act, Unfractionated 0.55 IU/mL (0.30-0.70) 0.57 IU/mL (0.30-0.70) Sodium Level 136 mmol/L (136-145) Potassium Level 4.1 mmol/L (3.5-5.1) Chloride Level 100 mmol/L (98-107) Carbon Dioxide Level 26 mmol/L (21-32) Anion Gap 10 (6-14) Blood Urea Nitrogen 11 mg/dL (8-26) Creatinine 0.7 mg/dL (0.7-1.3) Estimated GFR (Cockcroft-Gault) 115.0 BUN/Creatinine Ratio 16 (6-20) Glucose Level 179 mg/dL (70-99) Calcium Level 9.1 mg/dL (8.5-10.1) Total Bilirubin 0.4 mg/dL (0.2-1.0) Aspartate Amino Transf (AST/SGOT) 20 U/L (15-37) Alanine Aminotransferase (ALT/SGPT) 35 U/L (16-63) Alkaline Phosphatase 103 U/L (46-116) Total Protein 7.0 g/dL (6.4-8.2) Albumin 2.9 g/dL (3.4-5.0) Albumin/Globulin Ratio 0.7 (1.0-1.7) Medications Current Medications Amiodarone HCl 900 mg/Dextrose 518 ml @ 0 mls/hr 1X ONCE IV ; Start 08/09/16 at 10:30; Stop 08/09/16 at 10:31; Status DC Heparin Sodium (Porcine) (Heparin Sodium) 4,000 unit 1X ONCE IV Last administered on 08/09/16 10:14; Start 08/09/16 at 10:30; Stop 08/09/16 at 10:31 ; Status DC Heparin Sodium/ Dextrose 500 ml @ 0 mls/hr 1X ONCE IV Last administered on 12:45; Start 08/09/16 at 10:30; Stop 08/09/16 at 10:31; Status DC Sodium Chloride 1,000 ml @ 100 mls/hr Q10H IV ; Start 08/09/16 at 10:17; Stop 08/09/16 at 20:16; Status DC Fentanyl Citrate (Fentanyl 2ml Vial) 100 mcg STK-MED ONCE .ROUTE ; Start at 11:01; Stop 08/09/16 at 11:02; Status DC Midazolam HCl (Versed) 2 mg STK-MED ONCE .ROUTE ; Start 08/09/16 at 11:01; Stop 08/09/16 at 11:02; Status DC Heparin Sodium/ Sodium Chloride 1,000 ml @ As Directed STK-MED ONCE .ROUTE ; Start 08/09/16 at 11:02; Stop 08/09/16 at 11:03; Status DC Iodixanol (Visipaque 320) 100 ml STK-MED ONCE .ROUTE ; Start 08/09/16 at 11:02; Stop 08/09/16 at 11:03; Status DC Lidocaine HCl 20 ml STK-MED ONCE .ROUTE ; Start 08/09/16 at 11:02; Stop at 11:03; Status DC Heparin Sodium (Porcine) (Heparin Sodium) 10,000 unit STK-MED ONCE .ROUTE ; Start 08/09/16 at 11:06; Stop 08/09/16 at 11:07; Status DC Heparin Sodium/ Sodium Chloride 1,000 unit 1X ONCE IART Last administered on 12:04; Start 08/09/16 at 11:30; Stop 08/10/16 at 07:43; Status DC Midazolam HCl (Versed) 2 mg 1X ONCE IV Last administered on 08/09/16 11:30; Start 08/09/16 at 11:30; Stop 08/09/16 at 11:31; Status DC Fentanyl Citrate (Fentanyl 2ml Vial) 100 mcg 1X ONCE IV Last administered on 12:06; Start 08/09/16 at 11:30; Stop 08/09/16 at 11:31; Status DC Iodixanol (Visipaque 320) 100 ml 1X ONCE IART Last administered on 08/09/16 12:04; Start 08/09/16 at 11:30; Stop 08/09/16 at 11:31; Status DC Lidocaine HCl 20 ml 1X ONCE IJ Last administered on 08/09/16 12:04; Start at 11:30; Stop 08/09/16 at 11:31; Status DC Heparin Sodium (Porcine) (Heparin Sodium) 2,000 unit 1X ONCE IV Last administered on 08/09/16 12:08; Start 08/09/16 at 11:30; Stop 08/09/16 at 11:31 ; Status DC Tirofiban/Sodium Chloride 250 ml @ As Directed STK-MED ONCE IV ; Start at 11:21; Stop 08/09/16 at 11:22; Status DC Info (Do NOT chart on this entry -- for MONITORING) 1 each PRN DAILY PRN MC SEE COMMENTS; Start 08/09/16 at 11:30; Stop 08/11/16 at 11:29; Status DC Tirofiban/Sodium Chloride 100 ml @ 0 mls/hr 1X ONCE IV Last administered on 11:30; Start 08/09/16 at 11:30; Stop 08/09/16 at 11:31; Status DC Tirofiban/Sodium Chloride 250 ml @ 0 mls/hr CONT PRN IV PER PROTOCOL Last administered on 08/09/16 22:05; Start 08/09/16 at 11:30; Stop 08/10/16 at 05:29 ; Status DC Heparin Sodium/ Dextrose 500 ml @ 20 mls/hr CONT PRN IV SEE I/O RECORD Last administered on 08/10/16 21:27; Start 08/09/16 at 18:30; Stop 08/14/16 at 06:00 Heparin Sodium (Porcine) (Heparin Sodium) 2,300 unit PRN Q6HRS PRN IV FOR UFH LEVEL LESS THAN 0.2 Last administered on 08/09/16 18:37; Start 08/09/16 at 18: 30 Insulin Aspart (NovoLOG) 0-5 UNITS TIDWMEALS SQ Last administered on 08/10/16 07:34; Start 08/10/16 at 08:00; Stop 08/10/16 at 08:27; Status DC Dextrose (Dextrose 50%-Water Syringe) 12.5 gm PRN Q15MIN PRN IV SEE COMMENTS; Start 08/09/16 at 18:45; Stop 08/10/16 at 08:41; Status DC Ondansetron HCl (Zofran) 4 mg PRN Q6HRS PRN IV NAUSEA/VOMITING; Start 08/10/16 at 08:30 Acetaminophen (Tylenol) 650 mg PRN Q6HRS PRN PO pain; Start 08/10/16 at 08:30 Insulin Aspart (NovoLOG) 0-9 UNITS TIDWMEALS SQ Last administered on 08/11/16 10:07; Start 08/10/16 at 12:00 Dextrose (Dextrose 50%-Water Syringe) 12.5 gm PRN Q15MIN PRN IV SEE COMMENTS; Start 08/10/16 at 08:30 Amiodarone HCl (Cordarone) 200 mg DAILY PO Last administered on 08/11/16 09:58 ; Start 08/10/16 at 09:00 Aspirin (Children'S Aspirin) 81 mg DAILY PO Last administered on 08/10/16 10: 25; Start 08/10/16 at 09:00; Stop 08/10/16 at 17:45; Status DC Atorvastatin Calcium (Lipitor) 40 mg QHS PO Last administered on 08/10/16 21: 26; Start 08/10/16 at 21:00 Insulin Aspart (NovoLOG) 12 units TIDAC SQ Last administered on 08/10/16 11:43 ; Start 08/10/16 at 11:30; Stop 08/11/16 at 10:54; Status DC Metformin HCl (Glucophage) 1,000 mg BIDWMEALS PO Last administered on 10:26; Start 08/10/16 at 08:30; Stop 08/10/16 at 10:49; Status DC Metoprolol Tartrate (Lopressor) 50 mg BID PO Last administered on 6/23/17at 09: 58; Start 08/10/16 at 09:00 Lisinopril (Prinivil) 20 mg DAILY PO Last administered on 08/10/16 10:25; Start 08/10/16 at 09:00; Stop 08/10/16 at 17:45; Status DC Insulin Detemir (Levemir) 32 units QHS SQ Last administered on 08/10/16 21:28 ; Start 08/10/16 at 21:00; Stop 08/11/16 at 10:54; Status DC Ticagrelor (Brilinta) 90 mg BID PO ; Start 08/10/16 at 09:00; Status Cancel Tirofiban/Sodium Chloride 250 ml @ 0 mls/hr CONT PRN IV PER PROTOCOL Last administered on 08/11/16 02:31; Start 08/10/16 at 09:15 Metoprolol Tartrate (Lopressor) 25 mg 1X ONCE PO ; Start 08/14/16 at 06:00; Stop 08/14/16 at 06:01 Cefazolin Sodium/ Dextrose 50 ml @ 100 mls/hr 1X ONCE IV ; Start 08/14/16 at 06:00; Stop 08/14/16 at 06:29 Insulin Aspart (NovoLOG) 15 units TIDAC SQ ; Start 08/11/16 at 11:30 Insulin Detemir (Levemir) 38 units QHS SQ ; Start 08/11/16 at 21:00 Active Scripts Active Brilinta (Ticagrelor) 90 Mg Tablet 90 Mg PO BID 30 Days Atorvastatin Calcium 40 Mg Tablet 40 Mg PO QHS 30 Days Aspirin Ec (Aspirin) 81 Mg Tablet.dr 81 Mg PO DAILYWBKFT 30 Days Amiodarone Hcl 200 Mg Tablet 200 Mg PO DAILY 30 Days Reported Metoprolol Tartrate 50 Mg Tablet 1 Tab PO BID NITROGLYCERIN SubLingual (Nitroglycerin) 0.4 Mg Tab.subl 1 Tab SL UD Novolog Flexpen (Insulin Aspart) 100 Unit/1 Ml Insuln.pen 12 Unit SQ TIDAC Metformin Hcl 1,000 Mg Tablet 1,000 Mg PO BIDWMEALS Lantus Solostar (Insulin Glargine,Hum.rec.anlog) 100 Unit/1 Ml Insuln.pen 32 Unit SQ QHS Enalapril Maleate 10 Mg Tablet 1 Tab PO DAILY Atorvastatin Calcium 40 Mg Tablet 1 Tab PO QHS Aspirin 81 Mg Tab.chew 1 Tab PO DAILY Vitals/I & O Vital Sign - Last 24 Hours 08/10/16 08/10/16 08/10/16 08/10/16 15:00 19:52 20:14 21:26 Temp 98.6 98.6 Pulse 79 68 68 Resp 18 18 B/P (MAP) 116/61 (79) 122/71 (88) 122/71 Pulse Ox 97 93 O2 Delivery Room Air Room Air Room Air 08/10/16 08/11/16 08/11/16 08/11/16 22:18 03:07 07:52 08:00 Temp 98.6 98.8 98.3 98.6 98.8 98.3 Pulse 72 75 70 Resp 18 16 18 B/P (MAP) 124/71 (88) 125/59 (81) 133/80 (97) Pulse Ox 94 94 96 O2 Delivery Room Air Room Air Room Air Room Air 08/11/16 08/11/16 08/11/16 09:58 09:58 10:24 Temp 97.8 97.8 Pulse 70 70 68 Resp 18 B/P (MAP) 133/80 125/73 (90) Pulse Ox 97 O2 Delivery Room Air Intake and Output 08/10/16 08/10/16 08/11/16 15:00 23:00 07:00 Intake Total 118 ml 687 ml 200 ml Output Total 1450 ml 1225 ml Balance 118 ml -763 ml -1025 ml AYE VIRK MD Aug 11, 2016 11:41
[2016-08-11] MEDS: HEPARIN 25,000UTS/500ML PREMIX 500 ML IV PRN (12:20)
[2016-08-11 14:04] VITALS: BP 113/74
--- NOTE | 2016-08-11 15:09 | PDOC ---
Provider Note Provider Note Pt is clinically stable no c/o chest pain on dual anticoagulants today plan is for cabg on Sunday AM D/C Tirofiban sunday AM D/C Heparin Sunday RAGHAV MCCLENDON MD Aug 11, 2016 15:09
--- NOTE | 2016-08-11 16:23 | PDOC ---
CARDIOLOGY PROGRESS NOTE SUBJECTIVE: No acute events overnight. OBJECTIVE: Vital SIgns: Vital Signs Date Time Temp Pulse Resp B/P (MAP) Pulse Ox O2 Delivery O2 Flow Rate FiO2 08/11/16 14:04 98.2 70 19 113/74 (87) 95 Room Air 98.2 I & O Intake and Output 08/11/16 07:00 Intake Total 1005 ml Output Total 2675 ml Balance -1670 ml Intake Oral 318 ml IV Total 687 ml Output Urine Total 2675 ml # Voids 2 Objective: Gen: A/O x 3. NAD CVS: RRR, no m/r/g. PULM: CTAB No edema. CURRENT MEDICATIONS: Current Medications Medications (Trade) Dose Ordered Sig/Lizzeth Start Time Stop Time Status Last Admin Dose Admin Acetaminophen (Tylenol) 650 mg PRN Q6HRS PRN 08/10/16 08:30 Amiodarone HCl (Cordarone) 200 mg DAILY 08/10/16 09:00 08/11/16 09:58 200 MG Amiodarone HCl 900 mg/Dextrose 518 ml @ 0 mls/hr 1X ONCE 08/09/16 10:30 08/09/16 10:31 DC Aspirin (Children'S Aspirin) 81 mg DAILY 08/10/16 09:00 08/10/16 17:45 DC 08/10/16 10:25 81 MG Atorvastatin Calcium (Lipitor) 40 mg QHS 08/10/16 21:00 08/10/16 21:26 40 MG Cefazolin Sodium/ Dextrose 50 ml @ 100 mls/hr 1X ONCE 08/14/16 06:00 08/14/16 06:29 Dextrose (Dextrose 50%-Water Syringe) 12.5 gm PRN Q15MIN PRN 08/10/16 08:30 Fentanyl Citrate (Fentanyl 2ml Vial) 100 mcg 1X ONCE 08/09/16 11:30 08/09/16 11:31 DC 08/09/16 12:06 50 MCG Heparin Sodium (Porcine) (Heparin Sodium) 2,300 unit PRN Q6HRS PRN 08/09/16 18:30 08/09/16 18:37 2,300 UNIT Heparin Sodium/ Dextrose 500 ml @ 20 mls/hr CONT PRN 08/09/16 18:30 08/14/16 06:00 08/11/16 12:20 20 MLS/HR Heparin Sodium/ Sodium Chloride 1,000 unit 1X ONCE 08/09/16 11:30 08/10/16 07:43 DC 08/09/16 12:04 1,000 UNIT Info (Do NOT chart on this entry -- for MONITORING) 1 each PRN DAILY PRN 08/09/16 11:30 08/11/16 11:29 DC Insulin Aspart (NovoLOG) 12 units TIDAC 08/11/16 12:00 08/11/16 12:19 12 UNITS Insulin Detemir (Levemir) 32 units QHS 08/11/16 21:00 Iodixanol (Visipaque 320) 100 ml 1X ONCE 08/09/16 11:30 08/09/16 11:31 DC 08/09/16 12:04 149 ML Lidocaine HCl 20 ml 1X ONCE 08/09/16 11:30 08/09/16 11:31 DC 08/09/16 12:04 20 ML Lisinopril (Prinivil) 20 mg DAILY 08/10/16 09:00 08/10/16 17:45 DC 08/10/16 10:25 20 MG Metformin HCl (Glucophage) 1,000 mg BIDWMEALS 08/10/16 08:30 08/10/16 10:49 DC 08/10/16 10:26 1,000 MG Metoprolol Tartrate (Lopressor) 25 mg 1X ONCE 08/14/16 06:00 08/14/16 06:01 Midazolam HCl (Versed) 2 mg 1X ONCE 08/09/16 11:30 08/09/16 11:31 DC 08/09/16 11:30 1 MG Ondansetron HCl (Zofran) 4 mg PRN Q6HRS PRN 08/10/16 08:30 Sodium Chloride 1,000 ml @ 100 mls/hr Q10H 08/09/16 10:17 08/09/16 20:16 DC Ticagrelor (Brilinta) 90 mg BID 08/10/16 09:00 Cancel Tirofiban/Sodium Chloride 250 ml @ 0 mls/hr CONT PRN 08/10/16 09:15 08/11/16 02:31 0 MLS/HR ASSESSMENT: 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 Med recs per Dr. De La Torre's note. JEFFREY PENA MD Aug 11, 2016 16:23
[2016-08-11] MEDS ORDERED: INSULIN ASPART 300 UNITS/3 ML INSULN.PEN SQ ONE (17:30)
[2016-08-11 19:30] VITALS: BP 125/72
[2016-08-11] MEDS: ATORVASTATIN CALCIUM 40 MG TABLET. PO SCH (20:38)
[2016-08-11] MEDS ORDERED: INSULIN DETEMIR 300 UNITS/3 ML INSULN.PEN. SQ SCH ×2 (21:00)
[2016-08-11 22:42] VITALS: BP 120/75
[2016-08-12] MEDS: HEPARIN 25,000UTS/500ML PREMIX 500 ML IV PRN (02:51)
[2016-08-12 03:29] VITALS: BP 129/73
[2016-08-12 07:30] VITALS: BP 123/71
[2016-08-12] MEDS: AMIODARONE HCL 200 MG TABLET. PO SCH (08:57)
[2016-08-12] MEDS: METOPROLOL TART IMMED RELEASE 50 MG TABLET. PO SCH ×2 (08:57→20:47)
[2016-08-12] MEDS: INSULIN ASPART 300 UNITS/3 ML INSULN.PEN SQ SCH ×6 (09:01→17:36)
--- NOTE | 2016-08-12 09:30 | PDOC ---
Provider Note Provider Note No acute events. Continue current meds. Stop tirofiban and hep per CTS. Will follow along. Continue metop and amiodarone. JEFFREY PENA MD Aug 12, 2016 09:30
[2016-08-12 11:10] VITALS: BP 109/57
[2016-08-12] MEDS: TIROFIBAN 12.5MG -0.9% NS 250 ML IV PRN (11:45)
--- NOTE | 2016-08-12 12:03 | PDOC ---
PROGRESS NOTES Chief Complaint Chief Complaint 1. NSTEMI s/p balloon angioplasty (08/09) 2. HTN 3. Dyslipidemia 4. DM 2 uncontrolled, non compliant with [id number] 5. Ex smoker 6. Mild to mod pcm History of Present Illness History of Present Illness Asleep did not awaken BS high - I was observing yesterday bec of some non administration of mealtime novolog orders Plan Inc novolog to 15 TID Inc levemir to 38 qhs CABG sunday Vitals Vitals Vital Signs Date Time Temp Pulse Resp B/P (MAP) Pulse Ox O2 Delivery O2 Flow Rate FiO2 08/12/16 11:10 98.8 58 18 109/57 (74) 96 Room Air 98.8 Physical Exam General: Alert, Oriented X3, Cooperative, No acute distress Heart: Regular rate, Normal S1, Normal S2, No murmurs, Other (? left carotid bruit) Lungs: Clear Abdomen: Normal bowel sounds, Soft Extremities: No edema, Normal pulses (2+ radial; 1+/weak DP and PT) Skin: No rashes Labs LABS Laboratory Tests Test 08/11/16 16:00 08/11/16 17:04 08/11/16 20:42 08/11/16 22:15 Heparin Anti-Xa Act, Unfractionated 0.32 IU/mL (0.30-0.70) 0.37 IU/mL (0.30-0.70) Glucose (Fingerstick) 364 mg/dL (70-99) 112 mg/dL (70-99) Test 08/12/16 05:55 08/12/16 07:39 08/12/16 11:14 Heparin Anti-Xa Act, Unfractionated 0.44 IU/mL (0.30-0.70) Glucose (Fingerstick) 228 mg/dL (70-99) 194 mg/dL (70-99) Review of Systems Review of Systems asleep did not awaken Assessment and Plan Assessmemt and Plan Problems Medical Problems: (1) STEMI (ST elevation myocardial infarction) Status: Acute Problems: Comment Review of Relevant I have reviewed the following items rachel (where applicable) has been applied. Labs Laboratory Tests Test 08/10/16 14:45 08/10/16 17:25 08/10/16 19:35 08/10/16 20:48 Urine Collection Type Void Urine Color Yellow Urine Clarity Clear Urine pH 6.5 Urine Specific [place] 1.015 Urine Protein Negative mg/dL (NEG-TRACE) Urine Glucose (UA) 500 mg/dL (NEG) Urine Ketones (Stick) Negative mg/dL (NEG) Urine Blood Negative (NEG) Urine Nitrite Negative (NEG) Urine Bilirubin Negative (NEG) Urine Urobilinogen Dipstick 1.0 mg/dL (0.2 mg/dL) Urine Leukocyte Esterase Negative (NEG) Urine RBC 11-20 /HPF (0-2) Urine WBC Occ /HPF (0-4) Urine Squamous Epithelial Cells Occ /LPF Urine Bacteria Few /HPF (0-FEW) Urine Mucus Slight /LPF Glucose (Fingerstick) 94 mg/dL (70-99) 166 mg/dL (70-99) Heparin Anti-Xa Act, Unfractionated 0.48 IU/mL (0.30-0.70) Test 08/11/16 02:00 08/11/16 07:55 08/11/16 10:26 08/11/16 16:00 White Blood Count 10.2 x10^3/uL (4.0-11.0) Red Blood Count 4.56 x10^6/uL (4.30-5.70) Hemoglobin 13.6 g/dL (13.0-17.5) Hematocrit 40.1 % (39.0-53.0) Mean Corpuscular Volume 88 fL (79-100) Mean Corpuscular Hemoglobin 30 pg (25-35) Mean Corpuscular Hemoglobin Concent 34 g/dL (31-37) Red Cell Distribution Width 13.7 % (11.5-14.5) Platelet Count 373 x10^3/uL (140-400) Neutrophils (%) (Auto) 60 % (31-73) Lymphocytes (%) (Auto) 26 % (24-48) Monocytes (%) (Auto) 11 % (0-9) Eosinophils (%) (Auto) 3 % (0-3) Basophils (%) (Auto) 1 % (0-3) Neutrophils # (Auto) 6.1 x10^3uL (1.8-7.7) Lymphocytes # (Auto) 2.6 x10^3/uL (1.0-4.8) Monocytes # (Auto) 1.1 x10^3/uL (0.0-1.1) Eosinophils # (Auto) 0.3 x10^3/uL (0.0-0.7) Basophils # (Auto) 0.1 x10^3/uL (0.0-0.2) Prothrombin Time 12.8 SEC (11.7-14.0) Prothromb Time International Ratio 1.0 (0.8-1.1) Activated Partial Thromboplast Time 74 SEC (24-38) Heparin Anti-Xa Act, Unfractionated 0.55 IU/mL (0.30-0.70) 0.57 IU/mL (0.30-0.70) 0.32 IU/mL (0.30-0.70) Sodium Level 136 mmol/L (136-145) Potassium Level 4.1 mmol/L (3.5-5.1) Chloride Level 100 mmol/L (98-107) Carbon Dioxide Level 26 mmol/L (21-32) Anion Gap 10 (6-14) Blood Urea Nitrogen 11 mg/dL (8-26) Creatinine 0.7 mg/dL (0.7-1.3) Estimated GFR (Cockcroft-Gault) 115.0 BUN/Creatinine Ratio 16 (6-20) Glucose Level 179 mg/dL (70-99) Calcium Level 9.1 mg/dL (8.5-10.1) Total Bilirubin 0.4 mg/dL (0.2-1.0) Aspartate Amino Transf (AST/SGOT) 20 U/L (15-37) Alanine Aminotransferase (ALT/SGPT) 35 U/L (16-63) Alkaline Phosphatase 103 U/L (46-116) Total Protein 7.0 g/dL (6.4-8.2) Albumin 2.9 g/dL (3.4-5.0) Albumin/Globulin Ratio 0.7 (1.0-1.7) Glucose (Fingerstick) 208 mg/dL (70-99) 249 mg/dL (70-99) Test 08/11/16 17:04 08/11/16 20:42 08/11/16 22:15 08/12/16 05:55 Glucose (Fingerstick) 364 mg/dL (70-99) 112 mg/dL (70-99) Heparin Anti-Xa Act, Unfractionated 0.37 IU/mL (0.30-0.70) 0.44 IU/mL (0.30-0.70) Test 08/12/16 07:39 08/12/16 11:14 Glucose (Fingerstick) 228 mg/dL (70-99) 194 mg/dL (70-99) Laboratory Tests Test 08/11/16 16:00 08/11/16 17:04 08/11/16 20:42 08/11/16 22:15 Heparin Anti-Xa Act, Unfractionated 0.32 IU/mL (0.30-0.70) 0.37 IU/mL (0.30-0.70) Glucose (Fingerstick) 364 mg/dL (70-99) 112 mg/dL (70-99) Test 08/12/16 05:55 08/12/16 07:39 08/12/16 11:14 Heparin Anti-Xa Act, Unfractionated 0.44 IU/mL (0.30-0.70) Glucose (Fingerstick) 228 mg/dL (70-99) 194 mg/dL (70-99) Medications Current Medications Amiodarone HCl 900 mg/Dextrose 518 ml @ 0 mls/hr 1X ONCE IV ; Start 08/09/16 at 10:30; Stop 08/09/16 at 10:31; Status DC Heparin Sodium (Porcine) (Heparin Sodium) 4,000 unit 1X ONCE IV Last administered on 08/09/16t 10:14; Start 08/09/16 at 10:30; Stop 08/09/16 at 10:31 ; Status DC Heparin Sodium/ Dextrose 500 ml @ 0 mls/hr 1X ONCE IV Last administered on t 12:45; Start 08/09/16 at 10:30; Stop 08/09/16 at 10:31; Status DC Sodium Chloride 1,000 ml @ 100 mls/hr Q10H IV ; Start 08/09/16 at 10:17; Stop 08/09/16 at 20:16; Status DC Fentanyl Citrate (Fentanyl 2ml Vial) 100 mcg STK-MED ONCE .ROUTE ; Start at 11:01; Stop 08/09/16 at 11:02; Status DC Midazolam HCl (Versed) 2 mg STK-MED ONCE .ROUTE ; Start 08/09/16 at 11:01; Stop 08/09/16 at 11:02; Status DC Heparin Sodium/ Sodium Chloride 1,000 ml @ As Directed STK-MED ONCE .ROUTE ; Start 08/09/16 at 11:02; Stop 08/09/16 at 11:03; Status DC Iodixanol (Visipaque 320) 100 ml STK-MED ONCE .ROUTE ; Start 08/09/16 at 11:02; Stop 08/09/16 at 11:03; Status DC Lidocaine HCl 20 ml STK-MED ONCE .ROUTE ; Start 08/09/16 at 11:02; Stop at 11:03; Status DC Heparin Sodium (Porcine) (Heparin Sodium) 10,000 unit STK-MED ONCE .ROUTE ; Start 08/09/16 at 11:06; Stop 08/09/16 at 11:07; Status DC Heparin Sodium/ Sodium Chloride 1,000 unit 1X ONCE IART Last administered on 12:04; Start 08/09/16 at 11:30; Stop 08/10/16 at 07:43; Status DC Midazolam HCl (Versed) 2 mg 1X ONCE IV Last administered on 08/09/16 11:30; Start 08/09/16 at 11:30; Stop 08/09/16 at 11:31; Status DC Fentanyl Citrate (Fentanyl 2ml Vial) 100 mcg 1X ONCE IV Last administered on 12:06; Start 08/09/16 at 11:30; Stop 08/09/16 at 11:31; Status DC Iodixanol (Visipaque 320) 100 ml 1X ONCE IART Last administered on 08/09/16 12:04; Start 08/09/16 at 11:30; Stop 08/09/16 at 11:31; Status DC Lidocaine HCl 20 ml 1X ONCE IJ Last administered on 08/09/16 12:04; Start at 11:30; Stop 08/09/16 at 11:31; Status DC Heparin Sodium (Porcine) (Heparin Sodium) 2,000 unit 1X ONCE IV Last administered on 08/09/16 12:08; Start 08/09/16 at 11:30; Stop 08/09/16 at 11:31 ; Status DC Tirofiban/Sodium Chloride 250 ml @ As Directed STK-MED ONCE IV ; Start at 11:21; Stop 08/09/16 at 11:22; Status DC Info (Do NOT chart on this entry -- for MONITORING) 1 each PRN DAILY PRN MC SEE COMMENTS; Start 08/09/16 at 11:30; Stop 08/11/16 at 11:29; Status DC Tirofiban/Sodium Chloride 100 ml @ 0 mls/hr 1X ONCE IV Last administered on 11:30; Start 08/09/16 at 11:30; Stop 08/09/16 at 11:31; Status DC Tirofiban/Sodium Chloride 250 ml @ 0 mls/hr CONT PRN IV PER PROTOCOL Last administered on 08/09/16 22:05; Start 08/09/16 at 11:30; Stop 08/10/16 at 05:29 ; Status DC Heparin Sodium/ Dextrose 500 ml @ 20 mls/hr CONT PRN IV SEE I/O RECORD Last administered on 08/12/16 02:51; Start 08/09/16 at 18:30; Stop 08/14/16 at 06:00 Heparin Sodium (Porcine) (Heparin Sodium) 2,300 unit PRN Q6HRS PRN IV FOR UFH LEVEL LESS THAN 0.2 Last administered on 08/09/16 18:37; Start 08/09/16 at 18: 30 Insulin Aspart (NovoLOG) 0-5 UNITS TIDWMEALS SQ Last administered on 08/10/16 07:34; Start 08/10/16 at 08:00; Stop 08/10/16 at 08:27; Status DC Dextrose (Dextrose 50%-Water Syringe) 12.5 gm PRN Q15MIN PRN IV SEE COMMENTS; Start 08/09/16 at 18:45; Stop 08/10/16 at 08:41; Status DC Ondansetron HCl (Zofran) 4 mg PRN Q6HRS PRN IV NAUSEA/VOMITING; Start 08/10/16 at 08:30 Acetaminophen (Tylenol) 650 mg PRN Q6HRS PRN PO pain; Start 08/10/16 at 08:30 Insulin Aspart (NovoLOG) 0-9 UNITS TIDWMEALS SQ Last administered on 08/12/16 11:50; Start 08/10/16 at 12:00 Dextrose (Dextrose 50%-Water Syringe) 12.5 gm PRN Q15MIN PRN IV SEE COMMENTS; Start 08/10/16 at 08:30 Amiodarone HCl (Cordarone) 200 mg DAILY PO Last administered on 08/12/16 08:57 ; Start 08/10/16 at 09:00 Aspirin (Children'S Aspirin) 81 mg DAILY PO Last administered on 08/10/16 10: 25; Start 08/10/16 at 09:00; Stop 08/10/16 at 17:45; Status DC Atorvastatin Calcium (Lipitor) 40 mg QHS PO Last administered on 08/11/16 20: 38; Start 08/10/16 at 21:00 Insulin Aspart (NovoLOG) 12 units TIDAC SQ Last administered on 08/10/16 11:43 ; Start 08/10/16 at 11:30; Stop 08/11/16 at 10:54; Status DC Metformin HCl (Glucophage) 1,000 mg BIDWMEALS PO Last administered on 10:26; Start 08/10/16 at 08:30; Stop 08/10/16 at 10:49; Status DC Metoprolol Tartrate (Lopressor) 50 mg BID PO Last administered on 08/12/16 08: 57; Start 08/10/16 at 09:00 Lisinopril (Prinivil) 20 mg DAILY PO Last administered on 08/10/16 10:25; Start 08/10/16 at 09:00; Stop 08/10/16 at 17:45; Status DC Insulin Detemir (Levemir) 32 units QHS SQ Last administered on 08/10/16 21:28 ; Start 08/10/16 at 21:00; Stop 08/11/16 at 10:54; Status DC Ticagrelor (Brilinta) 90 mg BID PO ; Start 08/10/16 at 09:00; Status Cancel Tirofiban/Sodium Chloride 250 ml @ 0 mls/hr CONT PRN IV PER PROTOCOL Last administered on 08/12/16 11:45; Start 08/10/16 at 09:15 Metoprolol Tartrate (Lopressor) 25 mg 1X ONCE PO ; Start 08/14/16 at 06:00; Stop 08/14/16 at 06:01 Cefazolin Sodium/ Dextrose 50 ml @ 100 mls/hr 1X ONCE IV ; Start 08/14/16 at 06:00; Stop 08/14/16 at 06:29 Insulin Aspart (NovoLOG) 15 units TIDAC SQ ; Start 08/11/16 at 11:30; Stop 08/11 at 11:39; Status DC Insulin Detemir (Levemir) 38 units QHS SQ ; Start 08/11/16 at 21:00; Stop at 21:00; Status DC Insulin Aspart (NovoLOG) 12 units TIDAC SQ Last administered on 08/12/16t 09:01 ; Start 08/11/16 at 12:00; Stop 08/12/16 at 09:51; Status DC Insulin Detemir (Levemir) 32 units QHS SQ ; Start 08/11/16 at 21:00; Stop at 09:51; Status DC Ondansetron HCl (Zofran) 4 mg PRN Q6HRS PRN IV NAUSEA/VOMITING; Start 08/14/16 at 07:00; Stop 08/15/16 at 06:59 Fentanyl Citrate (Fentanyl 2ml Vial) 25 mcg PRN Q5MIN PRN IV MILD PAIN; Start 08/14/16 at 07:00; Stop 08/15/16 at 06:59 Fentanyl Citrate (Fentanyl 2ml Vial) 50 mcg PRN Q5MIN PRN IV MODERATE PAIN; Start 08/14/16 at 07:00; Stop 08/15/16 at 06:59 Morphine Sulfate 1 mg PRN Q10MIN PRN IV SEVERE PAIN; Start 08/14/16 at 07:00; Stop 08/15/16 at 06:59 Ringer's Solution 1,000 ml @ 30 mls/hr Q24H IV ; Start 08/14/16 at 07:00; Stop 08/14/16 at 18:59 Lidocaine HCl 2 ml PRN 1X PRN ID PRIOR TO IV START; Start 08/14/16 at 07:00; Stop 08/15/16 at 06:59 Hydromorphone HCl (Dilaudid) 0.5 mg PRN Q10MIN PRN IV SEV PAIN, Second choice; Start 08/14/16 at 07:00; Stop 08/15/16 at 06:59 Prochlorperazine Edisylate (Compazine) 5 mg PACU PRN PRN IV NAUSEA, MRX1; Start 08/14/16 at 07:00; Stop 08/15/16 at 06:59 Insulin Aspart (NovoLOG) 20 units 1X ONCE SQ Last administered on 08/11/16 17 :41; Start 08/11/16 at 17:30; Stop 08/11/16 at 17:31; Status DC Insulin Aspart (NovoLOG) 15 units TIDAC SQ Last administered on 08/12/16 11:49 ; Start 08/12/16 at 11:30 Insulin Detemir (Levemir) 38 units QHS SQ ; Start 08/12/16 at 21:00 Active Scripts Active Brilinta (Ticagrelor) 90 Mg Tablet 90 Mg PO BID 30 Days Atorvastatin Calcium 40 Mg Tablet 40 Mg PO QHS 30 Days Aspirin Ec (Aspirin) 81 Mg Tablet.dr 81 Mg PO DAILYWBKFT 30 Days Amiodarone Hcl 200 Mg Tablet 200 Mg PO DAILY 30 Days Reported Metoprolol Tartrate 50 Mg Tablet 1 Tab PO BID NITROGLYCERIN SubLingual (Nitroglycerin) 0.4 Mg Tab.subl 1 Tab SL UD Novolog Flexpen (Insulin Aspart) 100 Unit/1 Ml Insuln.pen 12 Unit SQ TIDAC Metformin Hcl 1,000 Mg Tablet 1,000 Mg PO BIDWMEALS Lantus Solostar (Insulin Glargine,Hum.rec.anlog) 100 Unit/1 Ml Insuln.pen 32 Unit SQ QHS Enalapril Maleate 10 Mg Tablet 1 Tab PO DAILY Atorvastatin Calcium 40 Mg Tablet 1 Tab PO QHS Aspirin 81 Mg Tab.chew 1 Tab PO DAILY Vitals/I & O Vital Sign - Last 24 Hours 08/11/16 08/11/16 08/11/16 08/11/16 14:04 19:30 20:05 20:38 Temp 98.2 98.3 98.2 98.3 Pulse 70 74 74 Resp 19 18 B/P (MAP) 113/74 (87) 125/72 (89) 125/72 Pulse Ox 95 92 O2 Delivery Room Air Room Air Room Air 08/11/16 08/12/16 08/12/16 08/12/16 22:42 03:29 07:30 08:02 Temp 97.7 98.6 98.5 97.7 98.6 98.5 Pulse 73 67 68 Resp 18 16 18 B/P (MAP) 120/75 (90) 129/73 (91) 123/71 (88) Pulse Ox 94 90 96 O2 Delivery Room Air Room Air Room Air Room Air 08/12/16 08/12/16 08/12/16 08:57 08:57 11:10 Temp 98.8 98.8 Pulse 68 68 58 Resp 18 B/P (MAP) 123/71 123/71 109/57 (74) Pulse Ox 96 O2 Delivery Room Air Intake and Output 08/11/16 08/11/16 08/12/16 15:00 23:00 07:00 Intake Total 360 ml 700 ml 800 ml Output Total 500 ml 600 ml Balance 360 ml 200 ml 200 ml AYE VIRK MD Aug 12, 2016 12:03
[2016-08-12 15:00] VITALS: BP 132/70
[2016-08-12 19:15] VITALS: BP 145/82
[2016-08-12] MEDS: ATORVASTATIN CALCIUM 40 MG TABLET. PO SCH (20:47)
[2016-08-12] MEDS: INSULIN DETEMIR 300 UNITS/3 ML INSULN.PEN. SQ SCH (20:52)
[2016-08-12 23:14] VITALS: BP 126/73
[2016-08-13] VITALS (14 sets, daily range): BP systolic 92–174; BP diastolic 48–94
[2016-08-13] MEDS: TIROFIBAN 12.5MG -0.9% NS 250 ML IV PRN (02:23)
--- NOTE | 2016-08-13 07:47 | PDOC ---
Provider Note Provider Note No acute events. ambulated yesterday w/o problems. Added ASA 81mg daily to his regimen given tirofiban was stopped. Will follow post bypass tomorrow. JEFFREY PENA MD Aug 13, 2016 07:47
[2016-08-13] MEDS ORDERED: ASPIRIN ENTERIC COATED 81 MG TABLET.DR. PO SCH (08:00)
[2016-08-13] MEDS: INSULIN ASPART 300 UNITS/3 ML INSULN.PEN SQ SCH ×6 (08:00→17:00)
[2016-08-13] MEDS: AMIODARONE HCL 200 MG TABLET. PO SCH (08:11)
[2016-08-13] MEDS: METOPROLOL TART IMMED RELEASE 50 MG TABLET. PO SCH (08:11)
[2016-08-13] MEDS: HEPARIN 25,000UTS/500ML PREMIX 500 ML IV PRN (08:15)
--- NOTE | 2016-08-13 10:23 | PDOC ---
Provider Note Provider Note Pt clinically stable no c/o chest pain Plans are for CABG in AM all questions answered RAGHAV MCCLENDON MD Aug 13, 2016 10:23
[2016-08-13] MEDS ORDERED: ZOLPIDEM 5 MG TABLET. PO PRN (10:30)
[2016-08-13] MEDS ORDERED: MORPHINE SULFATE 2 MG/ML DISP.SYRIN. IV ONE (11:30)
[2016-08-13] MEDS ORDERED: POTASSIUM CHLORIDE 15 MEQ, SODIUM BICARBONATE VIAL 12.5 MEQ in IV ELECTROLYTE-S (PH 7.4... IRR ONE (12:00)
[2016-08-13] MEDS ORDERED: HEPARIN 20,000 UNIT in IV RINGERS,LACTATED 1000ML 1,000 ML IRR ONE (12:00)
[2016-08-13] MEDS ORDERED: POTASSIUM CHLORIDE 70 MEQ, SODIUM BICARBONATE VIAL 12.5 MEQ, LIDOCAINE 2% 24 ML in IV E... IRR ONE (12:00)
--- NOTE | 2016-08-13 12:04 | EKG ---
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
[2016-08-13] MEDS ORDERED: PHENYLEPHRINE 10 MG/ML VIAL. ONE (12:13)
[2016-08-13] MEDS ORDERED: ETOMIDATE 20 MG/10 ML VIAL. IV ONE (12:13)
[2016-08-13] MEDS ORDERED: ePHEDrine PF IN SALINE 50 MG/5 ML DISP.SYRIN IV ONE (12:13)
[2016-08-13] MEDS ORDERED: LIDOCAINE 2% TOPICAL JELLY 5GM TUBE. TP ONE (12:13)
[2016-08-13] MEDS ORDERED: ROCURONIUM 100 MG/10 ML VIAL. ONE ×2 (12:14→14:51)
--- NOTE | 2016-08-13 12:15 | PDOC ---
PROGRESS NOTES Chief Complaint Chief Complaint 1. NSTEMI s/p balloon angioplasty (08/09) 2. STEMI (in house 08/13) 2. HTN 3. Dyslipidemia 4. DM 2 uncontrolled, non compliant with [id number] 5. Ex smoker 6. Mild to mod pcm History of Present Illness History of Present Illness Planned for CABG gumaro sunday But after education by [facility] and watching CABG video, pt got anxious and started to have STEMI elevation on inferior lead on monitor, diaphoretic,. Minimal CP he claims when I saw him. NO stat trop yet - did order STat EKG did how STEMI,inf leads STEMi called by cards. Now about to get urgent cath Did get morphine IV PLAN: Urgent cath dw cards, anesth, RN patient Vitals Vitals Vital Signs Date Time Temp Pulse Resp B/P (MAP) Pulse Ox O2 Delivery O2 Flow Rate FiO2 08/13/16 11:27 20 94 Room Air 08/13/16 08:11 68 125/75 08/13/16 07:10 98.6 98.6 Physical Exam General: Alert, Oriented X3, Cooperative, No acute distress Heart: Regular rate, Normal S1, Normal S2, No murmurs, Other (? left carotid bruit) Lungs: Clear Abdomen: Normal bowel sounds, Soft Extremities: No edema, Normal pulses (2+ radial; 1+/weak DP and PT) Skin: No rashes Labs LABS Laboratory Tests Test 08/12/16 17:00 08/12/16 20:45 08/13/16 06:00 08/13/16 07:16 Glucose (Fingerstick) 212 mg/dL (70-99) 156 mg/dL (70-99) 144 mg/dL (70-99) Heparin Anti-Xa Act, Unfractionated 0.51 IU/mL (0.30-0.70) Troponin I Quantitative 0.632 ng/mL (0.000-0.055) Review of Systems Review of Systems CP, diaphoretic, rest is limited Assessment and Plan Assessmemt and Plan Problems Medical Problems: (1) STEMI (ST elevation myocardial infarction) Status: Acute Problems: Comment Review of Relevant I have reviewed the following items rachel (where applicable) has been applied. Labs Laboratory Tests Test 08/11/16 16:00 08/11/16 17:04 08/11/16 20:42 08/11/16 22:15 Heparin Anti-Xa Act, Unfractionated 0.32 IU/mL (0.30-0.70) 0.37 IU/mL (0.30-0.70) Glucose (Fingerstick) 364 mg/dL (70-99) 112 mg/dL (70-99) Test 08/12/16 05:55 08/12/16 07:39 08/12/16 11:14 08/12/16 17:00 Heparin Anti-Xa Act, Unfractionated 0.44 IU/mL (0.30-0.70) Glucose (Fingerstick) 228 mg/dL (70-99) 194 mg/dL (70-99) 212 mg/dL (70-99) Test 08/12/16 20:45 08/13/16 06:00 08/13/16 07:16 Glucose (Fingerstick) 156 mg/dL (70-99) 144 mg/dL (70-99) Heparin Anti-Xa Act, Unfractionated 0.51 IU/mL (0.30-0.70) Troponin I Quantitative 0.632 ng/mL (0.000-0.055) Laboratory Tests Test 08/12/16 17:00 08/12/16 20:45 08/13/16 06:00 08/13/16 07:16 Glucose (Fingerstick) 212 mg/dL (70-99) 156 mg/dL (70-99) 144 mg/dL (70-99) Heparin Anti-Xa Act, Unfractionated 0.51 IU/mL (0.30-0.70) Troponin I Quantitative 0.632 ng/mL (0.000-0.055) Medications Current Medications Amiodarone HCl 900 mg/Dextrose 518 ml @ 0 mls/hr 1X ONCE IV ; Start 08/09/16 at 10:30; Stop 08/09/16 at 10:31; Status DC Heparin Sodium (Porcine) (Heparin Sodium) 4,000 unit 1X ONCE IV Last administered on 08/09/16t 10:14; Start 08/09/16 at 10:30; Stop 08/09/16 at 10:31 ; Status DC Heparin Sodium/ Dextrose 500 ml @ 0 mls/hr 1X ONCE IV Last administered on 12:45; Start 08/09/16 at 10:30; Stop 08/09/16 at 10:31; Status DC Sodium Chloride 1,000 ml @ 100 mls/hr Q10H IV ; Start 08/09/16 at 10:17; Stop 08/09/16 at 20:16; Status DC Fentanyl Citrate (Fentanyl 2ml Vial) 100 mcg STK-MED ONCE .ROUTE ; Start at 11:01; Stop 08/09/16 at 11:02; Status DC Midazolam HCl (Versed) 2 mg STK-MED ONCE .ROUTE ; Start 08/09/16 at 11:01; Stop 08/09/16 at 11:02; Status DC Heparin Sodium/ Sodium Chloride 1,000 ml @ As Directed STK-MED ONCE .ROUTE ; Start 08/09/16 at 11:02; Stop 08/09/16 at 11:03; Status DC Iodixanol (Visipaque 320) 100 ml STK-MED ONCE .ROUTE ; Start 08/09/16 at 11:02; Stop 08/09/16 at 11:03; Status DC Lidocaine HCl 20 ml STK-MED ONCE .ROUTE ; Start 08/09/16 at 11:02; Stop at 11:03; Status DC Heparin Sodium (Porcine) (Heparin Sodium) 10,000 unit STK-MED ONCE .ROUTE ; Start 08/09/16 at 11:06; Stop 08/09/16 at 11:07; Status DC Heparin Sodium/ Sodium Chloride 1,000 unit 1X ONCE IART Last administered on 12:04; Start 08/09/16 at 11:30; Stop 08/10/16 at 07:43; Status DC Midazolam HCl (Versed) 2 mg 1X ONCE IV Last administered on 08/09/16 11:30; Start 08/09/16 at 11:30; Stop 08/09/16 at 11:31; Status DC Fentanyl Citrate (Fentanyl 2ml Vial) 100 mcg 1X ONCE IV Last administered on 12:06; Start 08/09/16 at 11:30; Stop 08/09/16 at 11:31; Status DC Iodixanol (Visipaque 320) 100 ml 1X ONCE IART Last administered on 08/09/16 12:04; Start 08/09/16 at 11:30; Stop 08/09/16 at 11:31; Status DC Lidocaine HCl 20 ml 1X ONCE IJ Last administered on 08/09/16 12:04; Start at 11:30; Stop 08/09/16 at 11:31; Status DC Heparin Sodium (Porcine) (Heparin Sodium) 2,000 unit 1X ONCE IV Last administered on 08/09/16 12:08; Start 08/09/16 at 11:30; Stop 08/09/16 at 11:31 ; Status DC Tirofiban/Sodium Chloride 250 ml @ As Directed STK-MED ONCE IV ; Start at 11:21; Stop 08/09/16 at 11:22; Status DC Info (Do NOT chart on this entry -- for MONITORING) 1 each PRN DAILY PRN MC SEE COMMENTS; Start 08/09/16 at 11:30; Stop 08/11/16 at 11:29; Status DC Tirofiban/Sodium Chloride 100 ml @ 0 mls/hr 1X ONCE IV Last administered on 11:30; Start 08/09/16 at 11:30; Stop 08/09/16 at 11:31; Status DC Tirofiban/Sodium Chloride 250 ml @ 0 mls/hr CONT PRN IV PER PROTOCOL Last administered on 08/09/16 22:05; Start 08/09/16 at 11:30; Stop 08/10/16 at 05:29 ; Status DC Heparin Sodium/ Dextrose 500 ml @ 20 mls/hr CONT PRN IV SEE I/O RECORD Last administered on 08/13/16 08:15; Start 08/09/16 at 18:30; Stop 08/14/16 at 04:00 Heparin Sodium (Porcine) (Heparin Sodium) 2,300 unit PRN Q6HRS PRN IV FOR UFH LEVEL LESS THAN 0.2 Last administered on 08/09/16 18:37; Start 08/09/16 at 18: 30 Insulin Aspart (NovoLOG) 0-5 UNITS TIDWMEALS SQ Last administered on 08/10/16 07:34; Start 08/10/16 at 08:00; Stop 08/10/16 at 08:27; Status DC Dextrose (Dextrose 50%-Water Syringe) 12.5 gm PRN Q15MIN PRN IV SEE COMMENTS; Start 08/09/16 at 18:45; Stop 08/10/16 at 08:41; Status DC Ondansetron HCl (Zofran) 4 mg PRN Q6HRS PRN IV NAUSEA/VOMITING; Start 08/10/16 at 08:30 Acetaminophen (Tylenol) 650 mg PRN Q6HRS PRN PO pain; Start 08/10/16 at 08:30 Insulin Aspart (NovoLOG) 0-9 UNITS TIDWMEALS SQ Last administered on 08/12/16 17:36; Start 08/10/16 at 12:00 Dextrose (Dextrose 50%-Water Syringe) 12.5 gm PRN Q15MIN PRN IV SEE COMMENTS; Start 08/10/16 at 08:30 Amiodarone HCl (Cordarone) 200 mg DAILY PO Last administered on 08/13/16 08:11 ; Start 08/10/16 at 09:00 Aspirin (Children'S Aspirin) 81 mg DAILY PO Last administered on 08/10/16 10: 25; Start 08/10/16 at 09:00; Stop 08/10/16 at 17:45; Status DC Atorvastatin Calcium (Lipitor) 40 mg QHS PO Last administered on 08/12/16 20: 47; Start 08/10/16 at 21:00 Insulin Aspart (NovoLOG) 12 units TIDAC SQ Last administered on 08/10/16 11:43 ; Start 08/10/16 at 11:30; Stop 08/11/16 at 10:54; Status DC Metformin HCl (Glucophage) 1,000 mg BIDWMEALS PO Last administered on 10:26; Start 08/10/16 at 08:30; Stop 08/10/16 at 10:49; Status DC Metoprolol Tartrate (Lopressor) 50 mg BID PO Last administered on 08/13/16 08: 11; Start 08/10/16 at 09:00 Lisinopril (Prinivil) 20 mg DAILY PO Last administered on 08/10/16 10:25; Start 08/10/16 at 09:00; Stop 08/10/16 at 17:45; Status DC Insulin Detemir (Levemir) 32 units QHS SQ Last administered on 08/10/16 21:28 ; Start 08/10/16 at 21:00; Stop 08/11/16 at 10:54; Status DC Ticagrelor (Brilinta) 90 mg BID PO ; Start 08/10/16 at 09:00; Status Cancel Tirofiban/Sodium Chloride 250 ml @ 0 mls/hr CONT PRN IV PER PROTOCOL Last administered on 08/13/16 02:23; Start 08/10/16 at 09:15; Stop 08/13/16 at 10:15 ; Status DC Metoprolol Tartrate (Lopressor) 25 mg 1X ONCE PO ; Start 08/14/16 at 06:00; Stop 08/14/16 at 06:01; Status Cancel Cefazolin Sodium/ Dextrose 50 ml @ 100 mls/hr 1X ONCE IV ; Start 08/14/16 at 06:00; Stop 08/14/16 at 06:29 Insulin Aspart (NovoLOG) 15 units TIDAC SQ ; Start 08/11/16 at 11:30; Stop 08/11 at 11:39; Status DC Insulin Detemir (Levemir) 38 units QHS SQ ; Start 08/11/16 at 21:00; Stop at 21:00; Status DC Insulin Aspart (NovoLOG) 12 units TIDAC SQ Last administered on 08/12/16 09:01 ; Start 08/11/16 at 12:00; Stop 08/12/16 at 09:51; Status DC Insulin Detemir (Levemir) 32 units QHS SQ ; Start 08/11/16 at 21:00; Stop at 09:51; Status DC Ondansetron HCl (Zofran) 4 mg PRN Q6HRS PRN IV NAUSEA/VOMITING; Start 08/14/16 at 07:00; Stop 08/15/16 at 06:59 Fentanyl Citrate (Fentanyl 2ml Vial) 25 mcg PRN Q5MIN PRN IV MILD PAIN; Start 08/14/16 at 07:00; Stop 08/15/16 at 06:59 Fentanyl Citrate (Fentanyl 2ml Vial) 50 mcg PRN Q5MIN PRN IV MODERATE PAIN; Start 08/14/16 at 07:00; Stop 08/15/16 at 06:59 Morphine Sulfate 1 mg PRN Q10MIN PRN IV SEVERE PAIN; Start 08/14/16 at 07:00; Stop 08/15/16 at 06:59 Ringer's Solution 1,000 ml @ 30 mls/hr Q24H IV ; Start 08/14/16 at 07:00; Stop 08/14/16 at 18:59 Lidocaine HCl 2 ml PRN 1X PRN ID PRIOR TO IV START; Start 08/14/16 at 07:00; Stop 08/15/16 at 06:59 Hydromorphone HCl (Dilaudid) 0.5 mg PRN Q10MIN PRN IV SEV PAIN, Second choice; Start 08/14/16 at 07:00; Stop 08/15/16 at 06:59 Prochlorperazine Edisylate (Compazine) 5 mg PACU PRN PRN IV NAUSEA, MRX1; Start 08/14/16 at 07:00; Stop 08/15/16 at 06:59 Insulin Aspart (NovoLOG) 20 units 1X ONCE SQ Last administered on 08/11/16 17 :41; Start 08/11/16 at 17:30; Stop 08/11/16 at 17:31; Status DC Insulin Aspart (NovoLOG) 15 units TIDAC SQ Last administered on 08/13/16 08:16 ; Start 08/12/16 at 11:30 Insulin Detemir (Levemir) 38 units QHS SQ Last administered on 08/12/16 20:52 ; Start 08/12/16 at 21:00 Aspirin (Ecotrin) 81 mg DAILYWBKFT PO Last administered on 08/13/16 08:11; Start 08/13/16 at 08:00 Heparin Sodium (Porcine) 39213 unit/Ringer's Solution 1,020 ml @ 1,020 mls/hr 1X PERIOP ONCE IRR ; Start 08/14/16 at 06:00; Stop 08/14/16 at 06:59 Potassium Chloride 70 meq/ Sodium Bicarbonate 12.5 meq/Lidocaine HCl 24 ml/ Parenteral Electrolytes 571.5 ml @ 571.5 mls/ hr 1X PERIOP ONCE IRR ; Start at 06:00; Stop 08/14/16 at 06:59 Potassium Chloride 15 meq/ Sodium Bicarbonate 12.5 meq/Parenteral Electrolytes 520 ml @ 520 mls/hr 1X PERIOP ONCE IRR ; Start 08/14/16 at 06:00; Stop at 06:59 Vancomycin HCl 1.5 gm/Sodium Chloride 500 ml @ 250 mls/hr 1X ONCE IV ; Start 08/14/16 at 06:00; Stop 08/14/16 at 07:59; Status UNV Zolpidem Tartrate (Ambien) 5 mg PRN QHS PRN PO INSOMNIA, MAY REPEAT IN 1HR; Start 08/13/16 at 10:30 Carvedilol (Coreg) 3.125 mg 1X ONCE PO ; Start 08/14/16 at 06:00; Stop at 06:01 Insulin Human Regular 150 unit/ Sodium Chloride 151.5 ml @ 0 mls/hr CONT PRN IV SEE I/O RECORD; Start 08/14/16 at 06:00 Vancomycin HCl 1.25 gm/Sodium Chloride 250 ml @ 166.667 mls/hr 1X ONCE IV ; Start 08/14/16 at 06:00; Stop 08/14/16 at 07:29 Morphine Sulfate 1 mg 1X ONCE IV Last administered on 08/13/16t 11:27; Start 08/13/16 at 11:30; Stop 08/13/16 at 11:31; Status DC Heparin Sodium (Porcine) 86578 unit/Ringer's Solution 1,020 ml @ 1,020 mls/hr 1X PERIOP ONCE IRR ; Start 08/13/16 at 12:00; Stop 08/13/16 at 12:59 Potassium Chloride 15 meq/ Sodium Bicarbonate 12.5 meq/Parenteral Electrolytes 520 ml @ 520 mls/hr 1X PERIOP ONCE IRR ; Start 08/13/16 at 12:00; Stop at 12:59 Potassium Chloride 70 meq/ Sodium Bicarbonate 12.5 meq/Lidocaine HCl 24 ml/ Parenteral Electrolytes 571.5 ml @ 571.5 mls/ hr 1X PERIOP ONCE IRR ; Start at 12:00; Stop 08/13/16 at 12:59 Active Scripts Active Brilinta (Ticagrelor) 90 Mg Tablet 90 Mg PO BID 30 Days Atorvastatin Calcium 40 Mg Tablet 40 Mg PO QHS 30 Days Aspirin Ec (Aspirin) 81 Mg Tablet.dr 81 Mg PO DAILYWBKFT 30 Days Amiodarone Hcl 200 Mg Tablet 200 Mg PO DAILY 30 Days Reported Metoprolol Tartrate 50 Mg Tablet 1 Tab PO BID NITROGLYCERIN SubLingual (Nitroglycerin) 0.4 Mg Tab.subl 1 Tab SL UD Novolog Flexpen (Insulin Aspart) 100 Unit/1 Ml Insuln.pen 12 Unit SQ TIDAC Metformin Hcl 1,000 Mg Tablet 1,000 Mg PO BIDWMEALS Lantus Solostar (Insulin Glargine,Hum.rec.anlog) 100 Unit/1 Ml Insuln.pen 32 Unit SQ QHS Enalapril Maleate 10 Mg Tablet 1 Tab PO DAILY Atorvastatin Calcium 40 Mg Tablet 1 Tab PO QHS Aspirin 81 Mg Tab.chew 1 Tab PO DAILY Vitals/I & O Vital Sign - Last 24 Hours 08/12/16 08/12/16 08/12/16 08/12/16 15:00 19:15 19:50 20:47 Temp 96.9 98.0 96.9 98.0 Pulse 66 69 69 Resp 20 18 B/P (MAP) 132/70 (90) 145/82 (103) 145/82 Pulse Ox 98 97 O2 Delivery Room Air Room Air Room Air 08/12/16 08/13/16 08/13/16 08/13/16 23:14 03:18 07:10 07:26 Temp 98.0 98.4 98.6 98.0 98.4 98.6 Pulse 67 69 65 Resp 18 16 18 B/P (MAP) 126/73 (90) 144/82 (102) 125/75 (92) Pulse Ox 94 91 94 O2 Delivery Room Air Room Air Room Air Room Air 08/13/16 08/13/16 08/13/16 08:11 08:11 11:27 Pulse 68 68 Resp 20 B/P (MAP) 125/75 125/75 Pulse Ox 94 O2 Delivery Room Air Intake and Output 08/12/16 08/12/16 08/13/16 15:00 23:00 07:00 Intake Total 240 ml 410 ml 1506 ml Output Total 425 ml 950 ml 1125 ml Balance -185 ml -540 ml 381 ml AYE VIRK MD Aug 13, 2016 12:15
[2016-08-13] MEDS ORDERED: AMINOCAPROIC ACID 5,000 MG/20 ML VIAL. IV ONE ×2 (12:16→15:38)
[2016-08-13] MEDS ORDERED: HEPARIN 30,000 UNIT/30 ML VIAL. ONE ×2 (12:16→15:39)
[2016-08-13] MEDS ORDERED: NITROGLYCERIN PREMIX 250 ML IV ONE ×2 (12:17→12:47)
[2016-08-13] MEDS ORDERED: fentaNYL PF VIAL 250 MCG/5 ML VIAL ONE (12:17)
[2016-08-13] MEDS ORDERED: SUFentanil 100 MCG/2 ML AMPUL. ONE (12:17)
[2016-08-13] MEDS ORDERED: MIDAZOLAM HCL/PF 5 MG/5 ML VIAL. ONE (12:17)
[2016-08-13] MEDS ORDERED: IODIXANOL 320 MG/ML 100 ML VIAL. ONE (12:19)
[2016-08-13] MEDS ORDERED: LIDOCAINE 2% 20 ML VIAL. ONE (12:19)
[2016-08-13] MEDS ORDERED: SURGICEL HEMOSTAT 4X8 EACH. ONE (12:26)
[2016-08-13] MEDS ORDERED: PHENYLEPHRINE in 0.9% NACL PF 1 MG/10 ML DISP.SYRIN. IV ONE (12:26)
[2016-08-13] MEDS ORDERED: MIDAZOLAM HCL/PF 2 MG/2 ML VIAL. ONE ×3 (12:26→16:01)
[2016-08-13] MEDS ORDERED: fentaNYL PF VIAL 100 MCG/2 ML VIAL ONE (12:26)
[2016-08-13] MEDS ORDERED: SUCCINYLCHOLINE 200 MG/10 ML VIAL. ONE (12:26)
[2016-08-13] MEDS ORDERED: PROTAMINE 50 MG/5 ML VIAL. IV ONE ×2 (12:27→15:05)
[2016-08-13] MEDS ORDERED: ASPIRIN 300 MG SUPP.RECT ONE (12:27)
[2016-08-13] MEDS ORDERED: MINERAL OIL 10 ML VIAL MC ONE (12:27)
[2016-08-13] MEDS ORDERED: HEPARIN for IV BOLUS 10,000 UNIT/10 ML VIAL. ONE (12:29)
[2016-08-13] MEDS ORDERED: ATROPINE 0.5 MG/5 ML DISP.SYRIN. ONE (12:30)
[2016-08-13] MEDS ORDERED: IODIXANOL 320 MG/ML 100 ML VIAL. IART ONE (12:45)
[2016-08-13] MEDS ORDERED: LIDOCAINE 2% 20 ML VIAL. IJ ONE (12:45)
[2016-08-13] MEDS ORDERED: NITROGLYCERIN 200 MCG/2 ML SYRINGE FOR CATH/VASC LAB. IART ONE (12:45)
[2016-08-13] MEDS ORDERED: HEPARIN for IV BOLUS 10,000 UNIT/10 ML VIAL. IV ONE (12:45)
[2016-08-13] MEDS ORDERED: VANCOMYCIN 1.25 GM in IV NORMAL SALINE 250ML 250 ML IV ONE (13:30)
[2016-08-13] MEDS ORDERED: PROTAMINE 250 MG/25 ML VIAL IV ONE (14:52)
[2016-08-13] MEDS ORDERED: EPINEPHrine SYRINGE 1 MG/10 ML SYRINGE ONE (15:09)
[2016-08-13 15:37] LABS: HEMATOCRIT 28.2 % (39.0-53.0); HEMOGLOBIN 9.3 g/dL (13.0-17.5); WHITE BLOOD COUNT 16.2 x10^3/uL (4.0-11.0)
[2016-08-13] MEDS ORDERED: LIDOCAINE 2% PF Vial for OR 5 ML VIAL. ONE (15:38)
[2016-08-13] MEDS ORDERED: MANNITOL 25% 12.5 G/50 ML VIAL FOR OR. ONE (15:38)
[2016-08-13] MEDS ORDERED: ALBUMIN HUMAN 25% 100 ML IV ONE (15:38)
[2016-08-13] MEDS ORDERED: CALCIUM CHLORIDE 1,000 MG/10 ML DISP.SYRIN IV ONE (15:38)
[2016-08-13] MEDS ORDERED: MAGNESIUM SULFATE 5 GM/10 ML VIAL. ONE (15:39)
[2016-08-13 15:49] LABS: INR 1.6 (0.8-1.1); PROTHROMBIN TIME PATIENT 17.7 SEC (11.7-14.0)
[2016-08-13] MEDS ORDERED: DESFLURANE > 120 MINUTES IH ONE (15:54)
[2016-08-13] MEDS ORDERED: ROCURONIUM 50 MG/5 ML VIAL. ONE (16:08)
[2016-08-13] MEDS ORDERED: IV DEXTROSE 5% 1,000 ML IV SCH (16:08)
--- NOTE | 2016-08-13 16:08 | PDOC ---
BRIEF OPERATIVE NOTE Date: Aug 13, 2016 Pre-Op Diagnosis Acute, ST Segnent MS, CAD, Mildly reduced LV function Post-Op Diagnosis same Procedure Performed CABg X 1 with SVG to PDA Surgeon Juliette De La Torre MD Cigar Patcher YESSI Smith Anesthesiologist Tabitha Anesthesia Type: General Blood Loss see perfusion record IV Fluid see anesthesia record Urine Output appropriate Specimens Obtained none Findings good quality conduit and target site Off cpb on low dose dopamine infusion Complications none noted RAGHAV DE LA TORRE MD Aug 13, 2016 16:08
[2016-08-13] MEDS ORDERED: NITROGLYCERIN PREMIX 250 ML IV PRN (16:15)
[2016-08-13] MEDS ORDERED: KCL PER PROTOCOL MC PRN (16:15)
[2016-08-13] MEDS ORDERED: ALBUTEROL SULFATE 2.5 MG/3 ML NEBU. NEB PRN (16:15)
[2016-08-13] MEDS ORDERED: AMIODARONE 150 MG in IV DEXTROSE 5% 100 ML IV PRN (16:15)
[2016-08-13] MEDS ORDERED: MAGNESIUM SULFATE 1GM 100 ML IV PRN (16:15)
[2016-08-13] MEDS ORDERED: ONDANSETRON PF 4 MG/2 ML VIAL. IV PRN (16:15)
[2016-08-13] MEDS ORDERED: ACETAMINOPHEN 650 MG SUPP.RECT. PR PRN (16:15)
[2016-08-13] MEDS ORDERED: BISACODYL 10 MG SUPP.RECT. PR PRN (16:15)
[2016-08-13] MEDS ORDERED: ACETAMINOPHEN 325 MG TABLET. PO PRN (16:15)
[2016-08-13] MEDS ORDERED: AMIODARONE 900 MG in IV DEXTROSE 5% 500 ML IV PRN (16:15)
[2016-08-13] MEDS ORDERED: CLEVIDIPINE BUTYRATE 100 ML IV PRN (16:15)
[2016-08-13] MEDS ORDERED: PROPOFOL 100 ML IV PRN (16:15)
[2016-08-13] MEDS ORDERED: ELECTROLYTE (ICU) PROTOCOL. MC PRN (16:15)
[2016-08-13] MEDS ORDERED: MEPERIDINE PF 25 MG/ML VIAL. IV PRN (16:15)
[2016-08-13] MEDS ORDERED: ASPIRIN 300 MG SUPP.RECT PR PRN (16:15)
[2016-08-13] MEDS ORDERED: oxyCODONE/APAP 5/325 1 TAB TABLET PO PRN (16:15)
[2016-08-13] MEDS ORDERED: DEXTROSE 50% 25 GM / 50ML DISP.SYRIN. IV PRN (16:15)
--- NOTE | 2016-08-13 16:40 | RAD ---
LEFT FEMUR XRAY Clinical Indication: INCORRECT COUNTS IN OR, DISTAL FEMUR ONLY AT INCISION Comparison: None. Findings: No acute bone abnormality. Arterial vascular calcifications. Scattered subcutaneous air of the medial thigh. There is a distal medial surgical clip. No unexpected radiopaque foreign body. IMPRESSION: No unexpected radiopaque foreign body.
--- NOTE | 2016-08-13 16:53 | RAD ---
AP PORTABLE CHEST Clinical Indication: PCXR IN OR POST CABG. Comparison: AP chest, 4 days ago. Findings: There is right IJ sheath and Or[place]-Eloisa catheter, the tip is well into the right lower lobe pulmonary artery, more peripheral than expected. There are new median sternotomy wires. There is a mediastinal drain. Left pleural space chest tube. There is endotracheal tube, tip is well into the right mainstem bronchus. The cardiomediastinal silhouette is prominent partially due to portable technique and low lung volumes. There is moderate left pneumothorax. There is atelectasis and air bronchograms in the left lung. Right lung is aerated. IMPRESSION: 1. Orting-Eloisa catheter tip is more peripheral than expected in the right lower lobe pulmonary artery. 2. Probable left pleural space chest tube. Moderate left pneumothorax. Partial collapse of the left lung. 3. Endotracheal tube in right mainstem bronchus. Critical results called to Lois in the ICU at 4:49 PM.
[2016-08-13 16:57] LABS: ART BE ISTAT -1 mmol/L (0-3); ART GLUC ISTAT 159 mg/dL (70-99); ART HCO3 ISTAT 25 mmol/L (21-28); ART HCT ISTAT 27 % (37-52); ART HGB ISTAT 9.2 g/dL (14-18); ART K ISTAT 4.4 mmol/L (3.5-5.0); ART NA ISTAT 137 mmol/L (135-145); ART PCO2 ISTAT 43 mmHg (35-45); ART PH ISTAT 7.37 (7.35-7.45); ART PO2 ISTAT 350 mmHg (75-100); ART SAT O2 SAT 100 % (95-99); ART TCO2 ISTAT 26 mmol/L (21-32); TOSPEC ART
[2016-08-13 16:57] LABS: ART BE ISTAT 1 mmol/L (0-3); ART GLUC ISTAT 151 mg/dL (70-99); ART HCO3 ISTAT 27 mmol/L (21-28); ART HCT ISTAT 33 % (37-52); ART HGB ISTAT 11.2 g/dL (14-18); ART ION CA ISTAT 1.13 mmol/L (1.13-1.32); ART K ISTAT 3.6 mmol/L (3.5-5.0); ART NA ISTAT 141 mmol/L (135-145); ART PCO2 ISTAT 49 mmHg (35-45); ART PH ISTAT 7.35 (7.35-7.45); ART PO2 ISTAT 426 mmHg (75-100); ART SAT O2 SAT 100 % (95-99); ART TCO2 ISTAT 28 mmol/L (21-32); TOSPEC ART
[2016-08-13 16:58] LABS: ART BE ISTAT -3 mmol/L (0-3); ART GLUC ISTAT 177 mg/dL (70-99); ART HCO3 ISTAT 22 mmol/L (21-28); ART HCT ISTAT 31 % (37-52); ART HGB ISTAT 10.5 g/dL (14-18); ART ION CA ISTAT 1.53 mmol/L (1.13-1.32); ART K ISTAT 3.9 mmol/L (3.5-5.0); ART NA ISTAT 140 mmol/L (135-145); ART PCO2 ISTAT 39 mmHg (35-45); ART PH ISTAT 7.36 (7.35-7.45); ART PO2 ISTAT 66 mmHg (75-100); ART SAT O2 SAT 92 % (95-99); ART TCO2 ISTAT 23 mmol/L (21-32); TOSPEC ART
[2016-08-13 16:58] LABS: ART BE ISTAT -2 mmol/L (0-3); ART GLUC ISTAT 176 mg/dL (70-99); ART HCO3 ISTAT 24 mmol/L (21-28); ART HCT ISTAT 27 % (37-52); ART HGB ISTAT 9.2 g/dL (14-18); ART ION CA ISTAT 1.84 mmol/L (1.13-1.32); ART K ISTAT 3.9 mmol/L (3.5-5.0); ART NA ISTAT 139 mmol/L (135-145); ART PCO2 ISTAT 46 mmHg (35-45); ART PH ISTAT 7.33 (7.35-7.45); ART PO2 ISTAT 200 mmHg (75-100); ART SAT O2 SAT 100 % (95-99); ART TCO2 ISTAT 25 mmol/L (21-32); TOSPEC ART
[2016-08-13] MEDS ORDERED: LIDOCAINE 1% PF 30 ML VIAL. ONE ×2 (17:00→17:10)
[2016-08-13] MEDS: MORPHINE SULFATE 2 MG/ML DISP.SYRIN. IV PRN ×7 (17:19→23:23)
[2016-08-13 17:45] LABS: BASE EXCESS COOX -4 mmol/L (-3-3); CARBON MONOXIDE 0.2 % (0.0-1.9); HCO3 COOX 23 mmol/L (21-28); METHEMOGLOBIN 0.4 % (0.0-1.9); OXYHEMOGLOBIN 97.9 %; PCO2 COOX 48 mmHg (35-46); PO2 COOX 162 mmHg (65-108); SAT O2 COOX 99 % (92-99); TOTAL HEMOGLOBIN 13.6 g/dL
[2016-08-13] MEDS: ALBUMIN HUMAN 5% 250 ML IV PRN ×3 (17:45→18:22)
--- NOTE | 2016-08-13 17:48 | RAD ---
CHEST AP ONLY Clinical History: ICU PATIENT. POST OP TODAY. ET TUBE VERIFICATION, LEFT SIDE CHEST TUBE PLACEMENT. COMPARISON IMAGES SENT Technique: AP view of the chest was obtained at 08/13/2016 5:16 PM. Comparison: 4:15 PM. Findings: The heart and pulmonary vessels appear normal. The right nodular Harmony-Eloisa catheter is again seen. Median sternotomy wires and mediastinal drain are again seen. There has been interval placement of left chest tube. The left pneumothorax is no longer seen. There is patchy opacity in the left lung base. Impression: 1. No pneumothorax status post left sided chest tube. 2. Left basal infiltrate likely discoid atelectasis. Electronically signed by: Dwight Johnson III, MD (08/13/2016 5:45 PM)
[2016-08-13 17:49] LABS: HEMATOCRIT 36.4 % (39.0-53.0); HEMOGLOBIN 11.9 g/dL (13.0-17.5); RED BLOOD COUNT 4.05 x10^6/uL (4.30-5.70); RED CELL DISTRIBUTION WIDTH 13.9 % (11.5-14.5); WHITE BLOOD COUNT 17.7 x10^3/uL (4.0-11.0)
--- NOTE | 2016-08-13 17:56 | CARD ---
APPROVED REPORT Procedure(s) performed: Left Heart Catheterization PTCA with Balloon Angioplasty of the RCA. HISTORY The patient is a 60 year-old male with a history of : coronary artery disease, tobacco history() , pr evious PCI (The PCI date was ), hypertension, dyslipidemia. INDICATION The indication(s) include : STEMI . CASE TECHNIQUE During this case, Fluoroscopy and low osmolar contrast were used for imaging. PROCEDURE NARRATIVE Patient while awaiting single-vessel bypass to the RCA in the setting of recurrent thromboses of prev iously placed stents had another episode of chest pain this morning with EKG revealing evidence of re current stent thrombosis. In this setting he was emergently taken back to the catheterization located within [facility] after appropriate informed verbal consent. The patient was placed in the supine position and the right groin was prepped and draped in the usual sterile fashion. Under 2% lidocaine local anesthesia via the modified Seldinger technique a 6 Cambodian sheath was placed in the right common femoral artery with an 18-gauge needle and a J-tipped guidewir e. Subsequently , an AL-1 0.5 guide catheter was used to engage the right coronary artery. Heparin wa s previously administered and a bolus dose was also given in addition to reinitiation of the tirofiba n drip. After confirmation of the proximal RCA occlusion on diagnostic angiography a pro-water wire w as used to cross the stenosis and repeat angioplasty was performed from the distal to proximal RCA. P ost angioplasty there was resolution of ST elevations and good CONNIE-3 flow. The wire was removed and repeat angiography demonstrated a adequate posterior setting artery for bypass and the patient was em ergently transferred to the surgical suite for single-vessel bypass. Prior to transfer a right groin venous line was placed under 2% lidocaine anesthesia for intravenous access. Via the modified Seldinger technique a 5 Cambodian sheath was initially placed which was then up sized to an 8 Cambodian sheath. Initial attempts to advance a [place]-Eloisa catheter through the groin was u nsuccessful and therefore a right IJV 8 Cambodian sheath was inserted through which a PA catheter was ad vanced to the wedge position and the patient's sheaths were sutured to the skin and patient was trans ferred to the surgery. Prior to transfer his tirofiban drip was discontinued. Conclusion 1. 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 Successful balloon angioplasty with religious of CONNIE-3 flow. Recommendations Emergent transfer to coronary artery bypass surgery Case discussed with Dr. Vaughn
[2016-08-13 18:00] LABS: CALCIUM 8.9 mg/dL (8.5-10.1); CREATININE 0.5 mg/dL (0.7-1.3); GFR 169.6; MAGNESIUM 2.2 mg/dL (1.8-2.4); POTASSIUM 3.9 mmol/L (3.5-5.1)
[2016-08-13] MEDS ORDERED: MORPHINE SULFATE 2 MG/ML DISP.SYRIN. IV PRN (18:00)
[2016-08-13] MEDS: INSULIN REGULAR VIAL 150 UNIT in 0.9 % SODIUM CHLORIDE 150ML 150 ML IV PRN (18:12)
[2016-08-13] MEDS ORDERED: POTASSIUM CHLORIDE 20MEQ 50 ML IV ONE (18:15)
--- NOTE | 2016-08-13 18:40 | EKG ---
[facility] [address] [place] [address] Test Date: 2016-08-13 Test Time: 18:29:45 Pat Name: ELYSSA CONTRERAS Department: Room: 107 1 Gender: M Fashion Illustrator: TAMIA : 1955 Requested By: RAGHAV MCCLENDON Order Number: [id number] Reading MD: Measurements Intervals [place] Rate: 88 P: 59 MD: 174 QRS: 9 QRSD: 138 T: -16 QT: 428 QTc: 522 Interpretive Statements SINUS RHYTHM INTERPOLATED VENTRICULAR PREMATURE COMPLEX(ES) NON SPECIFIC INTRAVENTRICULAR BLOCK QRS(T) CONTOUR ABNORMALITY CONSIDER ANTEROSEPTAL MYOCARDIAL DAMAGE CONSISTENT WITH INFERIOR INFARCT AGE UNDETERMINED ABNORMAL ECG RI6.01 Compared to ECG 08/05/2016 08:50:23 Myocardial infarct finding now present ST (T wave) deviation no longer present Right bundle-branch block no longer present
--- NOTE | 2016-08-13 20:01 | OP ---
DATE OF SURGERY: 08/13/2016 PREOPERATIVE DIAGNOSES: Acute ST segment elevation [place], history of coronary artery disease, mildly reduced LV systolic function. FINAL DIAGNOSES: Acute ST segment elevation [place], history of coronary artery disease, mildly reduced LV systolic function. OPERATIVE PROCEDURE PERFORMED: 1. Coronary bypass grafting x 2. 2. Saphenous vein graft to the PDA. SURGEON: Dr. Moises De La Torre. COLOR MAKER: YESSI Smith. ANESTHESIA: General. OPERATIVE INDICATIONS: The patient is a 60-year-old male with known history of coronary artery disease, had multiple interventions involving the right coronary artery. The patient has recently presented with occlusion of the right coronary artery. Again, it was opened and he was maintained on Aggrastat and heparin drips. We were planning to perform elective coronary bypass grafting tomorrow morning on this patient; however, discontinuation of his Aggrastat, the patient began having chest pain with ST segment elevation changes. We quickly got him to the landscaping and groundskeeping laborer and then reopened the vessel and then set up the operating room to proceed with coronary bypass grafting today. OPERATIVE SUMMARY: The patient brought to the operative room and placed on the OR table in supine position. After anesthesia was induced via the general endotracheal route and monitoring lines have been positioned, the patient was prepped and draped in sterile fashion with chlorhexidine. A median sternotomy incision was made, concomitantly, saphenous vein was harvested from left lower extremity using endoscopic techniques. We opened the pericardium systemically anticoagulated the patient with heparin. Cannulae were placed in ascending aorta in the right atrium. An antegrade cardioplegic cannula was positioned and cardiopulmonary bypass was begun. Then under low flow conditions, the aorta was cross clamped, the heart was arrested with approximately 1 liter of cold antegrade cardioplegia. This was augmented with topical ice slush. Diastolic arrest was achieved and maintained throughout this operation with intermittent doses of cold antegrade cardioplegia and cardioplegia given down grafts as well as topical ice slush. We positioned the heart for opening the PDA. The proximal PDA was soft. We opened it, this is a large vessel greater than 2 mm in size. Distal anastomosis was carried out in end-to-side fashion with 7-0 Prolene. We then brought the saphenous vein graft around and measured to the appropriate length and performed a proximal anastomosis to the ascending aorta with 6-0 Prolene after a 4.8 punch aortotomy was created. We then took care to give of warm cardioplegia antegrade, while de-airing the ascending aorta and the vein graft. Under low flow conditions, the aorta crossclamp was released to begin the period of reperfusion. The patient was rewarmed to 37 degree centigrade. Atrial and ventricular pacing wires were placed; however, the patient spontaneously returned to sinus rhythm. We did pace him a little faster at 80 beats per minute. Three successive doses of calcium and a single dose of magnesium were given over 3-5 minute intervals. After a suitable period of reperfusion, the lungs were reinflated. The patient was weaned from cardiopulmonary bypass on a low dose dopamine infusion. Protamine was given to reverse the heparin, decannulation was effected. Once satisfactory hemostasis was achieved, placed two 32-Monegasque chest tubes in the anterior mediastinum and bring them out through separate stab incisions. The sternum was closed with #7 wire. The fascia subcutaneous and skin were closed in multiple layers with absorbable suture. The procedure was completed. The patient was taken to the ICU in stable condition. Cardiopulmonary bypass time 52 minutes. CROSS CLAMP TIME: 30 minutes. MOISES DE LA TORRE MD DR: LASHAY/susie JOB#: [id number] / [id number] JEFFREY Flowers MD
[2016-08-13 20:51] LABS: HCO3 ABG 21 mmol/L (21-28); PCO2 ABG 32 mmHg (35-46); PH ABG 7.43 (7.35-7.45); PO2 ABG 78 mmHg (65-108); SAT O2 ABG 95 % (92-99)
[2016-08-13 20:54] LABS: FIO2 ABG 40
[2016-08-13 20:55] LABS: FIO2 COOX 70
[2016-08-13] MEDS: INSULIN DETEMIR 300 UNITS/3 ML INSULN.PEN. SQ SCH (21:00)
[2016-08-13] MEDS ORDERED: CHLORHEXIDINE 0.12% 15 ML MOUTHWASH. MM SCH (21:00)
[2016-08-13 21:26] LABS: HCO3 ABG 23 mmol/L (21-28); PCO2 ABG 40 mmHg (35-46); PH ABG 7.38 (7.35-7.45); PO2 ABG 86 mmHg (65-108); SAT O2 ABG 96 % (92-99)
[2016-08-13 21:27] LABS: FIO2 ABG 40
[2016-08-13] MEDS: oxyCODONE/APAP 5/325 1 TAB TABLET PO PRN (22:13)
[2016-08-13] MEDS: ATORVASTATIN CALCIUM 40 MG TABLET. PO SCH (22:24)
[2016-08-13] MEDS: FAMOTIDINE 20 MG/2 ML VIAL IVP SCH (22:25)
[2016-08-13 23:24] LABS: BASO % 0 % (0-3); EOS % 0 % (0-3); HEMATOCRIT 33.1 % (39.0-53.0); LYMPH # 0.7 x10^3/uL (1.0-4.8); LYMPH % 5 % (24-48); MEAN CORPUSCULAR HEMOGLOBIN 30 pg (25-35); MEAN CORPUSCULAR HGB CONC 33 g/dL (31-37); MEAN CORPUSCULAR VOLUME 89 fL (79-100); MONO % 8 % (0-9); NEUT % 87 % (31-73); PLATELET COUNT 232 x10^3/uL (140-400); RED BLOOD COUNT 3.71 x10^6/uL (4.30-5.70); RED CELL DISTRIBUTION WIDTH 13.3 % (11.5-14.5)
[2016-08-13 23:36] LABS: CREATININE 0.6 mg/dL (0.7-1.3); GFR 137.4; MAGNESIUM 2.3 mg/dL (1.8-2.4); POTASSIUM 4.2 mmol/L (3.5-5.1)
[2016-08-13 23:47] LABS: PLT ESTIMATE ADEQUATE (ADEQUATE)
[2016-08-14] VITALS (24 sets, daily range): BP systolic 104–142; BP diastolic 57–90
[2016-08-14] MEDS: MORPHINE SULFATE 2 MG/ML DISP.SYRIN. IV PRN ×2 (01:18→19:33)
[2016-08-14] MEDS: oxyCODONE/APAP 5/325 1 TAB TABLET PO PRN ×5 (02:09→21:26)
[2016-08-14] MEDS ORDERED: HEPARIN 20,000 UNIT in IV RINGERS,LACTATED 1000ML 1,000 ML IRR ONE (06:00)
[2016-08-14] MEDS ORDERED: POTASSIUM CHLORIDE 15 MEQ, SODIUM BICARBONATE VIAL 12.5 MEQ in IV ELECTROLYTE-S (PH 7.4... IRR ONE (06:00)
[2016-08-14] MEDS ORDERED: POTASSIUM CHLORIDE 70 MEQ, SODIUM BICARBONATE VIAL 12.5 MEQ, LIDOCAINE 2% 24 ML in IV E... IRR ONE (06:00)
[2016-08-14] MEDS ORDERED: CARVEDILOL 3.125 MG TABLET. PO ONE (06:00)
[2016-08-14] MEDS ORDERED: METOPROLOL TART IMMED RELEASE 25 MG TABLET. PO ONE (06:00)
[2016-08-14] MEDS ORDERED: INSULIN REGULAR VIAL 150 UNIT in 0.9 % SODIUM CHLORIDE 150ML 150 ML IV PRN (06:00)
[2016-08-14] MEDS ORDERED: VANCOMYCIN 1.5 GM in IV NORMAL SALINE 500ML BAG 500 ML IV ONE (06:00)
[2016-08-14 06:28] LABS: HEMATOCRIT 31.6 % (39.0-53.0); HEMOGLOBIN 10.8 g/dL (13.0-17.5); RED BLOOD COUNT 3.62 x10^6/uL (4.30-5.70); RED CELL DISTRIBUTION WIDTH 13.7 % (11.5-14.5); WHITE BLOOD COUNT 14.5 x10^3/uL (4.0-11.0)
[2016-08-14 06:44] LABS: CALCIUM 8.9 mg/dL (8.5-10.1); CREATININE 0.6 mg/dL (0.7-1.3); GFR 137.4; MAGNESIUM 2.1 mg/dL (1.8-2.4); POTASSIUM 4.2 mmol/L (3.5-5.1)
[2016-08-14] MEDS ORDERED: fentaNYL PF VIAL 100 MCG/2 ML VIAL IV PRN ×2 (07:00)
[2016-08-14] MEDS ORDERED: IV RINGERS,LACTATED 1000ML 1,000 ML IV SCH (07:00)
[2016-08-14] MEDS ORDERED: LIDOCAINE 1% 1 ML SYRINGE. ID PRN (07:00)
[2016-08-14] MEDS ORDERED: HYDROmorphone 2 MG/ML VIAL IV PRN (07:00)
[2016-08-14] MEDS ORDERED: ONDANSETRON PF 4 MG/2 ML VIAL. IV PRN (07:00)
[2016-08-14] MEDS ORDERED: PROCHLORPERAZINE 10 MG/2 ML VIAL. IV PRN (07:00)
--- NOTE | 2016-08-14 07:09 | EKG ---
[facility] [address] [place] [address] Test Date: 2016-08-14 Test Time: 06:59:49 Pat Name: ELYSSA CONTRERAS Department: Room: 107 1 Gender: M Iron Melter: JUANA : 1955 Requested By: RAGHAV MCCLENDON Order Number: [id number] Reading MD: Measurements Intervals [place] Rate: 89 P: 38 [place]: 148 QRS: 2 QRSD: 134 T: -11 QT: 332 QTc: 410 Interpretive Statements SINUS RHYTHM VENTRICULAR PREMATURE COMPLEX(ES) RIGHT BUNDLE BRANCH BLOCK QRS(T) CONTOUR ABNORMALITY CONSIDER ANTEROLATERAL MYOCARDIAL DAMAGE CONSISTENT WITH INFERIOR INFARCT AGE UNDETERMINED ABNORMAL ECG RI6.01 Compared to ECG 08/05/2016 08:50:23 Myocardial infarct finding now present ST (T wave) deviation no longer present
[2016-08-14] MEDS: INSULIN ASPART 300 UNITS/3 ML INSULN.PEN SQ SCH ×3 (07:30→17:00)
--- NOTE | 2016-08-14 07:39 | RAD ---
Indication: Status post CABG. Time of exam 0333 hours. Correlation is made with prior study from 1 day earlier. Postop changes median sternotomy and CABG are noted. ET tube has been removed. Left chest tube remains in place. [place] catheter remains in place. There is central congestion with subsegmental atelectasis in the left base, unchanged. No pneumothorax is seen. Impression: Satisfactory extubation post CABG chest.
--- NOTE | 2016-08-14 07:42 | PDOC ---
Provider Note Provider Note Pt is POD #1 emergent CABg X 1 Awake, alert, SR VSS wound sites ok on Dopa at 4 wound sites ok labs and cxr noted Plan: wean dopa, d/c sgc up to chair d/c meds later today RAGHAV MCCLENDON MD Aug 14, 2016 07:42
[2016-08-14] MEDS ORDERED: METOPROLOL TART IMMED RELEASE 25 MG TABLET. PO SCH (09:00)
--- NOTE | 2016-08-14 09:05 | PDOC ---
PROGRESS NOTES Chief Complaint Chief Complaint 1. NSTEMI s/p balloon angioplasty (08/09) 2. STEMI (in house 08/13) s/p CABG (08/13) 2. HTN 3. Dyslipidemia 4. DM 2 uncontrolled, non compliant with [id number] 5. Ex smoker 6. Mild to mod pcm History of Present Illness History of Present Illness Urgent cardiac cath done yesterday for STEMI inf leads. 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 left carotid bruit) Lungs: Clear Abdomen: Normal bowel sounds, Soft Extremities: No edema, Normal pulses (2+ radial; 1+/weak DP and PT) Skin: No rashes Labs LABS Laboratory Tests Test 08/13/16 11:08 08/13/16 11:55 08/13/16 13:53 08/13/16 14:40 Glucose (Fingerstick) 199 mg/dL (70-99) Troponin I Quantitative 0.331 ng/mL (0.000-0.055) Bedside Hemoglobin (Calculated) 11.2 g/dL (14-18) 9.2 g/dL (14-18) Bedside Hematocrit 33 % (37-52) 27 % (37-52) Bedside Arterial pH 7.35 (7.35-7.45) 7.37 (7.35-7.45) Bedside Arterial pCO2 49 mmHg (35-45) 43 mmHg (35-45) Bedside Arterial pO2 426 mmHg (75-100) 350 mmHg (75-100) Bedside Arterial HCO3 27 mmol/L (21-28) 25 mmol/L (21-28) Bedside Arterial Total CO2 28 mmol/L (21-32) 26 mmol/L (21-32) Arterial Bld O2 Saturation (Measur) 100 % (95-99) 100 % (95-99) Bedside Arterial Blood Base Excess 1 mmol/L (0-3) -1 mmol/L (0-3) Bedside FiO2 100.0 80.0 Bedside Sodium 141 mmol/L (135-145) 137 mmol/L (135-145) Bedside Potassium 3.6 mmol/L (3.5-5.0) 4.4 mmol/L (3.5-5.0) Glucose Level 151 mg/dL (70-99) 159 mg/dL (70-99) Bedside Ionized Calcium (Jensen) 1.13 mmol/L (1.13-1.32) 1.10 mmol/L (1.13-1.32) Test 08/13/16 15:24 08/13/16 15:34 08/13/16 16:09 08/13/16 17:40 Bedside Hemoglobin (Calculated) 9.2 g/dL (14-18) 10.5 g/dL (14-18) Bedside Hematocrit 27 % (37-52) 31 % (37-52) Bedside Arterial pH 7.33 (7.35-7.45) 7.36 (7.35-7.45) Bedside Arterial pCO2 46 mmHg (35-45) 39 mmHg (35-45) Bedside Arterial pO2 200 mmHg (75-100) 66 mmHg (75-100) Bedside Arterial HCO3 24 mmol/L (21-28) 22 mmol/L (21-28) Bedside Arterial Total CO2 25 mmol/L (21-32) 23 mmol/L (21-32) Arterial Bld O2 Saturation (Measur) 100 % (95-99) 92 % (95-99) Bedside Arterial Blood Base Excess -2 mmol/L (0-3) -3 mmol/L (0-3) Bedside FiO2 100.0 100.0 Bedside Sodium 139 mmol/L (135-145) 140 mmol/L (135-145) Bedside Potassium 3.9 mmol/L (3.5-5.0) 3.9 mmol/L (3.5-5.0) Glucose Level 176 mg/dL (70-99) 177 mg/dL (70-99) 185 mg/dL (70-99) Bedside Ionized Calcium (Jensen) 1.84 mmol/L (1.13-1.32) 1.53 mmol/L (1.13-1.32) White Blood Count 16.2 x10^3/uL (4.0-11.0) 17.7 x10^3/uL (4.0-11.0) Hemoglobin 9.3 g/dL (13.0-17.5) 11.9 g/dL (13.0-17.5) Hematocrit 28.2 % (39.0-53.0) 36.4 % (39.0-53.0) Platelet Count 166 x10^3/uL (140-400) 234 x10^3/uL (140-400) Prothrombin Time 17.7 SEC (11.7-14.0) Prothromb Time International Ratio 1.6 (0.8-1.1) Activated Partial Thromboplast Time 26 SEC (24-38) Fibrinogen 337 mg/dL (200-440) Red Blood Count 4.05 x10^6/uL (4.30-5.70) Mean Corpuscular Volume 90 fL (79-100) Mean Corpuscular Hemoglobin 29 pg (25-35) Mean Corpuscular Hemoglobin Concent 33 g/dL (31-37) Red Cell Distribution Width 13.9 % (11.5-14.5) Sodium Level 143 mmol/L (136-145) Potassium Level 3.9 mmol/L (3.5-5.1) Chloride Level 110 mmol/L (98-107) Carbon Dioxide Level 23 mmol/L (21-32) Anion Gap 10 (6-14) Blood Urea Nitrogen 8 mg/dL (8-26) Creatinine 0.5 mg/dL (0.7-1.3) Estimated GFR (Cockcroft-Gault) 169.6 Calcium Level 8.9 mg/dL (8.5-10.1) Magnesium Level 2.2 mg/dL (1.8-2.4) Test 08/13/16 17:42 08/13/16 17:44 08/13/16 19:00 08/13/16 20:03 Glucose (Fingerstick) 182 mg/dL (70-99) 189 mg/dL (70-99) 167 mg/dL (70-99) O2 Saturation 99 % (92-99) Arterial Blood pH 7.30 (7.35-7.45) Arterial Blood pCO2 at Patient Temp 48 mmHg (35-46) Arterial Blood pO2 at Patient Temp 162 mmHg (65-108) Arterial Blood HCO3 23 mmol/L (21-28) Arterial Blood Base Excess -4 mmol/L (-3-3) Oxyhemoglobin 97.9 % Methemoglobin 0.4 % (0.0-1.9) Carbon Monoxide, Quantitative 0.2 % (0.0-1.9) FiO2 70 Test 08/13/16 20:49 08/13/16 21:02 08/13/16 21:24 08/13/16 22:05 O2 Saturation 95 % (92-99) 96 % (92-99) Arterial Blood pH 7.43 (7.35-7.45) 7.38 (7.35-7.45) Arterial Blood pCO2 at Patient Temp 32 mmHg (35-46) 40 mmHg (35-46) Arterial Blood pO2 at Patient Temp 78 mmHg (65-108) 86 mmHg (65-108) Arterial Blood HCO3 21 mmol/L (21-28) 23 mmol/L (21-28) Arterial Blood Base Excess -3 mmol/L (-3-3) -2 mmol/L (-3-3) FiO2 40 40 Glucose (Fingerstick) 157 mg/dL (70-99) 147 mg/dL (70-99) Test 08/13/16 23:00 08/13/16 23:08 08/14/16 00:08 08/14/16 01:09 White Blood Count 16.0 x10^3/uL (4.0-11.0) Red Blood Count 3.71 x10^6/uL (4.30-5.70) Hemoglobin 11.0 g/dL (13.0-17.5) Hematocrit 33.1 % (39.0-53.0) Mean Corpuscular Volume 89 fL (79-100) Mean Corpuscular Hemoglobin 30 pg (25-35) Mean Corpuscular Hemoglobin Concent 33 g/dL (31-37) Red Cell Distribution Width 13.3 % (11.5-14.5) Platelet Count 232 x10^3/uL (140-400) Neutrophils (%) (Auto) 87 % (31-73) Lymphocytes (%) (Auto) 5 % (24-48) Monocytes (%) (Auto) 8 % (0-9) Eosinophils (%) (Auto) 0 % (0-3) Basophils (%) (Auto) 0 % (0-3) Neutrophils # (Auto) 13.9 x10^3uL (1.8-7.7) Lymphocytes # (Auto) 0.7 x10^3/uL (1.0-4.8) Monocytes # (Auto) 1.2 x10^3/uL (0.0-1.1) Eosinophils # (Auto) 0.0 x10^3/uL (0.0-0.7) Basophils # (Auto) 0.0 x10^3/uL (0.0-0.2) Segmented Neutrophils % 82 % (35-66) Band Neutrophils % 5 % (0-9) Lymphocytes % 6 % (24-48) Monocytes % 7 % (0-10) Platelet Estimate Adequate (ADEQUATE) Sodium Level 143 mmol/L (136-145) Potassium Level 4.2 mmol/L (3.5-5.1) Chloride Level 109 mmol/L (98-107) Carbon Dioxide Level 25 mmol/L (21-32) Anion Gap 9 (6-14) Blood Urea Nitrogen 9 mg/dL (8-26) Creatinine 0.6 mg/dL (0.7-1.3) Estimated GFR (Cockcroft-Gault) 137.4 Glucose Level 168 mg/dL (70-99) Calcium Level 9.0 mg/dL (8.5-10.1) Magnesium Level 2.3 mg/dL (1.8-2.4) Glucose (Fingerstick) 161 mg/dL (70-99) 148 mg/dL (70-99) 131 mg/dL (70-99) Test 08/14/16 02:13 08/14/16 03:10 08/14/16 04:15 08/14/16 06:00 Glucose (Fingerstick) 133 mg/dL (70-99) 130 mg/dL (70-99) 138 mg/dL (70-99) White Blood Count 14.5 x10^3/uL (4.0-11.0) Red Blood Count 3.62 x10^6/uL (4.30-5.70) Hemoglobin 10.8 g/dL (13.0-17.5) Hematocrit 31.6 % (39.0-53.0) Mean Corpuscular Volume 87 fL (79-100) Mean Corpuscular Hemoglobin 30 pg (25-35) Mean Corpuscular Hemoglobin Concent 34 g/dL (31-37) Red Cell Distribution Width 13.7 % (11.5-14.5) Platelet Count 233 x10^3/uL (140-400) Sodium Level 140 mmol/L (136-145) Potassium Level 4.2 mmol/L (3.5-5.1) Chloride Level 106 mmol/L (98-107) Carbon Dioxide Level 26 mmol/L (21-32) Anion Gap 8 (6-14) Blood Urea Nitrogen 8 mg/dL (8-26) Creatinine 0.6 mg/dL (0.7-1.3) Estimated GFR (Cockcroft-Gault) 137.4 Glucose Level 132 mg/dL (70-99) Calcium Level 8.9 mg/dL (8.5-10.1) Magnesium Level 2.1 mg/dL (1.8-2.4) Creatine Kinase 538 U/L (39-308) Test 08/14/16 06:10 08/14/16 07:31 Glucose (Fingerstick) 120 mg/dL (70-99) 136 mg/dL (70-99) Review of Systems Review of Systems post op pain, weak, nausea but no vomiting. Assessment and Plan Assessmemt and Plan Problems Medical Problems: (1) STEMI (ST elevation myocardial infarction) Status: Acute Problems: Comment Review of Relevant I have reviewed the following items rachel (where applicable) has been applied. Labs Laboratory Tests Test 08/12/16 11:14 08/12/16 17:00 08/12/16 20:45 08/13/16 06:00 Glucose (Fingerstick) 194 mg/dL (70-99) 212 mg/dL (70-99) 156 mg/dL (70-99) Heparin Anti-Xa Act, Unfractionated 0.51 IU/mL (0.30-0.70) Troponin I Quantitative 0.632 ng/mL (0.000-0.055) Test 08/13/16 07:16 6/25/17 11:08 08/13/16 11:55 08/13/16 13:53 Glucose (Fingerstick) 144 mg/dL (70-99) 199 mg/dL (70-99) Troponin I Quantitative 0.331 ng/mL (0.000-0.055) Bedside Hemoglobin (Calculated) 11.2 g/dL (14-18) Bedside Hematocrit 33 % (37-52) Bedside Arterial pH 7.35 (7.35-7.45) Bedside Arterial pCO2 49 mmHg (35-45) Bedside Arterial pO2 426 mmHg (75-100) Bedside Arterial HCO3 27 mmol/L (21-28) Bedside Arterial Total CO2 28 mmol/L (21-32) Arterial Bld O2 Saturation (Measur) 100 % (95-99) Bedside Arterial Blood Base Excess 1 mmol/L (0-3) Bedside FiO2 100.0 Bedside Sodium 141 mmol/L (135-145) Bedside Potassium 3.6 mmol/L (3.5-5.0) Glucose Level 151 mg/dL (70-99) Bedside Ionized Calcium (Jensen) 1.13 mmol/L (1.13-1.32) Test 08/13/16 14:40 08/13/16 15:24 08/13/16 15:34 08/13/16 16:09 Bedside Hemoglobin (Calculated) 9.2 g/dL (14-18) 9.2 g/dL (14-18) 10.5 g/dL (14-18) Bedside Hematocrit 27 % (37-52) 27 % (37-52) 31 % (37-52) Bedside Arterial pH 7.37 (7.35-7.45) 7.33 (7.35-7.45) 7.36 (7.35-7.45) Bedside Arterial pCO2 43 mmHg (35-45) 46 mmHg (35-45) 39 mmHg (35-45) Bedside Arterial pO2 350 mmHg (75-100) 200 mmHg (75-100) 66 mmHg (75-100) Bedside Arterial HCO3 25 mmol/L (21-28) 24 mmol/L (21-28) 22 mmol/L (21-28) Bedside Arterial Total CO2 26 mmol/L (21-32) 25 mmol/L (21-32) 23 mmol/L (21-32) Arterial Bld O2 Saturation (Measur) 100 % (95-99) 100 % (95-99) 92 % (95-99) Bedside Arterial Blood Base Excess -1 mmol/L (0-3) -2 mmol/L (0-3) -3 mmol/L (0-3) Bedside FiO2 80.0 100.0 100.0 Bedside Sodium 137 mmol/L (135-145) 139 mmol/L (135-145) 140 mmol/L (135-145) Bedside Potassium 4.4 mmol/L (3.5-5.0) 3.9 mmol/L (3.5-5.0) 3.9 mmol/L (3.5-5.0) Glucose Level 159 mg/dL (70-99) 176 mg/dL (70-99) 177 mg/dL (70-99) Bedside Ionized Calcium (Jensen) 1.10 mmol/L (1.13-1.32) 1.84 mmol/L (1.13-1.32) 1.53 mmol/L (1.13-1.32) White Blood Count 16.2 x10^3/uL (4.0-11.0) Hemoglobin 9.3 g/dL (13.0-17.5) Hematocrit 28.2 % (39.0-53.0) Platelet Count 166 x10^3/uL (140-400) Prothrombin Time 17.7 SEC (11.7-14.0) Prothromb Time International Ratio 1.6 (0.8-1.1) Activated Partial Thromboplast Time 26 SEC (24-38) Fibrinogen 337 mg/dL (200-440) Test 08/13/16 17:40 08/13/16 17:42 08/13/16 17:44 08/13/16 19:00 White Blood Count 17.7 x10^3/uL (4.0-11.0) Red Blood Count 4.05 x10^6/uL (4.30-5.70) Hemoglobin 11.9 g/dL (13.0-17.5) Hematocrit 36.4 % (39.0-53.0) Mean Corpuscular Volume 90 fL (79-100) Mean Corpuscular Hemoglobin 29 pg (25-35) Mean Corpuscular Hemoglobin Concent 33 g/dL (31-37) Red Cell Distribution Width 13.9 % (11.5-14.5) Platelet Count 234 x10^3/uL (140-400) Sodium Level 143 mmol/L (136-145) Potassium Level 3.9 mmol/L (3.5-5.1) Chloride Level 110 mmol/L (98-107) Carbon Dioxide Level 23 mmol/L (21-32) Anion Gap 10 (6-14) Blood Urea Nitrogen 8 mg/dL (8-26) Creatinine 0.5 mg/dL (0.7-1.3) Estimated GFR (Cockcroft-Gault) 169.6 Glucose Level 185 mg/dL (70-99) Calcium Level 8.9 mg/dL (8.5-10.1) Magnesium Level 2.2 mg/dL (1.8-2.4) Glucose (Fingerstick) 182 mg/dL (70-99) 189 mg/dL (70-99) O2 Saturation 99 % (92-99) Arterial Blood pH 7.30 (7.35-7.45) Arterial Blood pCO2 at Patient Temp 48 mmHg (35-46) Arterial Blood pO2 at Patient Temp 162 mmHg (65-108) Arterial Blood HCO3 23 mmol/L (21-28) Arterial Blood Base Excess -4 mmol/L (-3-3) Oxyhemoglobin 97.9 % Methemoglobin 0.4 % (0.0-1.9) Carbon Monoxide, Quantitative 0.2 % (0.0-1.9) FiO2 70 Test 08/13/16 20:03 08/13/16 20:49 08/13/16 21:02 08/13/16 21:24 Glucose (Fingerstick) 167 mg/dL (70-99) 157 mg/dL (70-99) O2 Saturation 95 % (92-99) 96 % (92-99) Arterial Blood pH 7.43 (7.35-7.45) 7.38 (7.35-7.45) Arterial Blood pCO2 at Patient Temp 32 mmHg (35-46) 40 mmHg (35-46) Arterial Blood pO2 at Patient Temp 78 mmHg (65-108) 86 mmHg (65-108) Arterial Blood HCO3 21 mmol/L (21-28) 23 mmol/L (21-28) Arterial Blood Base Excess -3 mmol/L (-3-3) -2 mmol/L (-3-3) FiO2 40 40 Test 08/13/16 22:05 08/13/16 23:00 08/13/16 23:08 08/14/16 00:08 Glucose (Fingerstick) 147 mg/dL (70-99) 161 mg/dL (70-99) 148 mg/dL (70-99) White Blood Count 16.0 x10^3/uL (4.0-11.0) Red Blood Count 3.71 x10^6/uL (4.30-5.70) Hemoglobin 11.0 g/dL (13.0-17.5) Hematocrit 33.1 % (39.0-53.0) Mean Corpuscular Volume 89 fL (79-100) Mean Corpuscular Hemoglobin 30 pg (25-35) Mean Corpuscular Hemoglobin Concent 33 g/dL (31-37) Red Cell Distribution Width 13.3 % (11.5-14.5) Platelet Count 232 x10^3/uL (140-400) Neutrophils (%) (Auto) 87 % (31-73) Lymphocytes (%) (Auto) 5 % (24-48) Monocytes (%) (Auto) 8 % (0-9) Eosinophils (%) (Auto) 0 % (0-3) Basophils (%) (Auto) 0 % (0-3) Neutrophils # (Auto) 13.9 x10^3uL (1.8-7.7) Lymphocytes # (Auto) 0.7 x10^3/uL (1.0-4.8) Monocytes # (Auto) 1.2 x10^3/uL (0.0-1.1) Eosinophils # (Auto) 0.0 x10^3/uL (0.0-0.7) Basophils # (Auto) 0.0 x10^3/uL (0.0-0.2) Segmented Neutrophils % 82 % (35-66) Band Neutrophils % 5 % (0-9) Lymphocytes % 6 % (24-48) Monocytes % 7 % (0-10) Platelet Estimate Adequate (ADEQUATE) Sodium Level 143 mmol/L (136-145) Potassium Level 4.2 mmol/L (3.5-5.1) Chloride Level 109 mmol/L (98-107) Carbon Dioxide Level 25 mmol/L (21-32) Anion Gap 9 (6-14) Blood Urea Nitrogen 9 mg/dL (8-26) Creatinine 0.6 mg/dL (0.7-1.3) Estimated GFR (Cockcroft-Gault) 137.4 Glucose Level 168 mg/dL (70-99) Calcium Level 9.0 mg/dL (8.5-10.1) Magnesium Level 2.3 mg/dL (1.8-2.4) Test 08/14/16 01:09 08/14/16 02:13 08/14/16 03:10 08/14/16 04:15 Glucose (Fingerstick) 131 mg/dL (70-99) 133 mg/dL (70-99) 130 mg/dL (70-99) 138 mg/dL (70-99) Test 08/14/16 06:00 08/14/16 06:10 08/14/16 07:31 White Blood Count 14.5 x10^3/uL (4.0-11.0) Red Blood Count 3.62 x10^6/uL (4.30-5.70) Hemoglobin 10.8 g/dL (13.0-17.5) Hematocrit 31.6 % (39.0-53.0) Mean Corpuscular Volume 87 fL (79-100) Mean Corpuscular Hemoglobin 30 pg (25-35) Mean Corpuscular Hemoglobin Concent 34 g/dL (31-37) Red Cell Distribution Width 13.7 % (11.5-14.5) Platelet Count 233 x10^3/uL (140-400) Sodium Level 140 mmol/L (136-145) Potassium Level 4.2 mmol/L (3.5-5.1) Chloride Level 106 mmol/L (98-107) Carbon Dioxide Level 26 mmol/L (21-32) Anion Gap 8 (6-14) Blood Urea Nitrogen 8 mg/dL (8-26) Creatinine 0.6 mg/dL (0.7-1.3) Estimated GFR (Cockcroft-Gault) 137.4 Glucose Level 132 mg/dL (70-99) Calcium Level 8.9 mg/dL (8.5-10.1) Magnesium Level 2.1 mg/dL (1.8-2.4) Creatine Kinase 538 U/L (39-308) Glucose (Fingerstick) 120 mg/dL (70-99) 136 mg/dL (70-99) Laboratory Tests Test 08/13/16 11:08 08/13/16 11:55 08/13/16 13:53 08/13/16 14:40 Glucose (Fingerstick) 199 mg/dL (70-99) Troponin I Quantitative 0.331 ng/mL (0.000-0.055) Bedside Hemoglobin (Calculated) 11.2 g/dL (14-18) 9.2 g/dL (14-18) Bedside Hematocrit 33 % (37-52) 27 % (37-52) Bedside Arterial pH 7.35 (7.35-7.45) 7.37 (7.35-7.45) Bedside Arterial pCO2 49 mmHg (35-45) 43 mmHg (35-45) Bedside Arterial pO2 426 mmHg (75-100) 350 mmHg (75-100) Bedside Arterial HCO3 27 mmol/L (21-28) 25 mmol/L (21-28) Bedside Arterial Total CO2 28 mmol/L (21-32) 26 mmol/L (21-32) Arterial Bld O2 Saturation (Measur) 100 % (95-99) 100 % (95-99) Bedside Arterial Blood Base Excess 1 mmol/L (0-3) -1 mmol/L (0-3) Bedside FiO2 100.0 80.0 Bedside Sodium 141 mmol/L (135-145) 137 mmol/L (135-145) Bedside Potassium 3.6 mmol/L (3.5-5.0) 4.4 mmol/L (3.5-5.0) Glucose Level 151 mg/dL (70-99) 159 mg/dL (70-99) Bedside Ionized Calcium (Jensen) 1.13 mmol/L (1.13-1.32) 1.10 mmol/L (1.13-1.32) Test 08/13/16 15:24 08/13/16 15:34 08/13/16 16:09 08/13/16 17:40 Bedside Hemoglobin (Calculated) 9.2 g/dL (14-18) 10.5 g/dL (14-18) Bedside Hematocrit 27 % (37-52) 31 % (37-52) Bedside Arterial pH 7.33 (7.35-7.45) 7.36 (7.35-7.45) Bedside Arterial pCO2 46 mmHg (35-45) 39 mmHg (35-45) Bedside Arterial pO2 200 mmHg (75-100) 66 mmHg (75-100) Bedside Arterial HCO3 24 mmol/L (21-28) 22 mmol/L (21-28) Bedside Arterial Total CO2 25 mmol/L (21-32) 23 mmol/L (21-32) Arterial Bld O2 Saturation (Measur) 100 % (95-99) 92 % (95-99) Bedside Arterial Blood Base Excess -2 mmol/L (0-3) -3 mmol/L (0-3) Bedside FiO2 100.0 100.0 Bedside Sodium 139 mmol/L (135-145) 140 mmol/L (135-145) Bedside Potassium 3.9 mmol/L (3.5-5.0) 3.9 mmol/L (3.5-5.0) Glucose Level 176 mg/dL (70-99) 177 mg/dL (70-99) 185 mg/dL (70-99) Bedside Ionized Calcium (Jensen) 1.84 mmol/L (1.13-1.32) 1.53 mmol/L (1.13-1.32) White Blood Count 16.2 x10^3/uL (4.0-11.0) 17.7 x10^3/uL (4.0-11.0) Hemoglobin 9.3 g/dL (13.0-17.5) 11.9 g/dL (13.0-17.5) Hematocrit 28.2 % (39.0-53.0) 36.4 % (39.0-53.0) Platelet Count 166 x10^3/uL (140-400) 234 x10^3/uL (140-400) Prothrombin Time 17.7 SEC (11.7-14.0) Prothromb Time International Ratio 1.6 (0.8-1.1) Activated Partial Thromboplast Time 26 SEC (24-38) Fibrinogen 337 mg/dL (200-440) Red Blood Count 4.05 x10^6/uL (4.30-5.70) Mean Corpuscular Volume 90 fL (79-100) Mean Corpuscular Hemoglobin 29 pg (25-35) Mean Corpuscular Hemoglobin Concent 33 g/dL (31-37) Red Cell Distribution Width 13.9 % (11.5-14.5) Sodium Level 143 mmol/L (136-145) Potassium Level 3.9 mmol/L (3.5-5.1) Chloride Level 110 mmol/L (98-107) Carbon Dioxide Level 23 mmol/L (21-32) Anion Gap 10 (6-14) Blood Urea Nitrogen 8 mg/dL (8-26) Creatinine 0.5 mg/dL (0.7-1.3) Estimated GFR (Cockcroft-Gault) 169.6 Calcium Level 8.9 mg/dL (8.5-10.1) Magnesium Level 2.2 mg/dL (1.8-2.4) Test 08/13/16 17:42 08/13/16 17:44 08/13/16 19:00 08/13/16 20:03 Glucose (Fingerstick) 182 mg/dL (70-99) 189 mg/dL (70-99) 167 mg/dL (70-99) O2 Saturation 99 % (92-99) Arterial Blood pH 7.30 (7.35-7.45) Arterial Blood pCO2 at Patient Temp 48 mmHg (35-46) Arterial Blood pO2 at Patient Temp 162 mmHg (65-108) Arterial Blood HCO3 23 mmol/L (21-28) Arterial Blood Base Excess -4 mmol/L (-3-3) Oxyhemoglobin 97.9 % Methemoglobin 0.4 % (0.0-1.9) Carbon Monoxide, Quantitative 0.2 % (0.0-1.9) FiO2 70 Test 08/13/16 20:49 08/13/16 21:02 08/13/16 21:24 08/13/16 22:05 O2 Saturation 95 % (92-99) 96 % (92-99) Arterial Blood pH 7.43 (7.35-7.45) 7.38 (7.35-7.45) Arterial Blood pCO2 at Patient Temp 32 mmHg (35-46) 40 mmHg (35-46) Arterial Blood pO2 at Patient Temp 78 mmHg (65-108) 86 mmHg (65-108) Arterial Blood HCO3 21 mmol/L (21-28) 23 mmol/L (21-28) Arterial Blood Base Excess -3 mmol/L (-3-3) -2 mmol/L (-3-3) FiO2 40 40 Glucose (Fingerstick) 157 mg/dL (70-99) 147 mg/dL (70-99) Test 08/13/16 23:00 08/13/16 23:08 08/14/16 00:08 08/14/16 01:09 White Blood Count 16.0 x10^3/uL (4.0-11.0) Red Blood Count 3.71 x10^6/uL (4.30-5.70) Hemoglobin 11.0 g/dL (13.0-17.5) Hematocrit 33.1 % (39.0-53.0) Mean Corpuscular Volume 89 fL (79-100) Mean Corpuscular Hemoglobin 30 pg (25-35) Mean Corpuscular Hemoglobin Concent 33 g/dL (31-37) Red Cell Distribution Width 13.3 % (11.5-14.5) Platelet Count 232 x10^3/uL (140-400) Neutrophils (%) (Auto) 87 % (31-73) Lymphocytes (%) (Auto) 5 % (24-48) Monocytes (%) (Auto) 8 % (0-9) Eosinophils (%) (Auto) 0 % (0-3) Basophils (%) (Auto) 0 % (0-3) Neutrophils # (Auto) 13.9 x10^3uL (1.8-7.7) Lymphocytes # (Auto) 0.7 x10^3/uL (1.0-4.8) Monocytes # (Auto) 1.2 x10^3/uL (0.0-1.1) Eosinophils # (Auto) 0.0 x10^3/uL (0.0-0.7) Basophils # (Auto) 0.0 x10^3/uL (0.0-0.2) Segmented Neutrophils % 82 % (35-66) Band Neutrophils % 5 % (0-9) Lymphocytes % 6 % (24-48) Monocytes % 7 % (0-10) Platelet Estimate Adequate (ADEQUATE) Sodium Level 143 mmol/L (136-145) Potassium Level 4.2 mmol/L (3.5-5.1) Chloride Level 109 mmol/L (98-107) Carbon Dioxide Level 25 mmol/L (21-32) Anion Gap 9 (6-14) Blood Urea Nitrogen 9 mg/dL (8-26) Creatinine 0.6 mg/dL (0.7-1.3) Estimated GFR (Cockcroft-Gault) 137.4 Glucose Level 168 mg/dL (70-99) Calcium Level 9.0 mg/dL (8.5-10.1) Magnesium Level 2.3 mg/dL (1.8-2.4) Glucose (Fingerstick) 161 mg/dL (70-99) 148 mg/dL (70-99) 131 mg/dL (70-99) Test 08/14/16 02:13 08/14/16 03:10 08/14/16 04:15 08/14/16 06:00 Glucose (Fingerstick) 133 mg/dL (70-99) 130 mg/dL (70-99) 138 mg/dL (70-99) White Blood Count 14.5 x10^3/uL (4.0-11.0) Red Blood Count 3.62 x10^6/uL (4.30-5.70) Hemoglobin 10.8 g/dL (13.0-17.5) Hematocrit 31.6 % (39.0-53.0) Mean Corpuscular Volume 87 fL (79-100) Mean Corpuscular Hemoglobin 30 pg (25-35) Mean Corpuscular Hemoglobin Concent 34 g/dL (31-37) Red Cell Distribution Width 13.7 % (11.5-14.5) Platelet Count 233 x10^3/uL (140-400) Sodium Level 140 mmol/L (136-145) Potassium Level 4.2 mmol/L (3.5-5.1) Chloride Level 106 mmol/L (98-107) Carbon Dioxide Level 26 mmol/L (21-32) Anion Gap 8 (6-14) Blood Urea Nitrogen 8 mg/dL (8-26) Creatinine 0.6 mg/dL (0.7-1.3) Estimated GFR (Cockcroft-Gault) 137.4 Glucose Level 132 mg/dL (70-99) Calcium Level 8.9 mg/dL (8.5-10.1) Magnesium Level 2.1 mg/dL (1.8-2.4) Creatine Kinase 538 U/L (39-308) Test 08/14/16 06:10 08/14/16 07:31 Glucose (Fingerstick) 120 mg/dL (70-99) 136 mg/dL (70-99) Medications Current Medications Amiodarone HCl 900 mg/Dextrose 518 ml @ 0 mls/hr 1X ONCE IV ; Start 08/09/16 at 10:30; Stop 08/09/16 at 10:31; Status DC Heparin Sodium (Porcine) (Heparin Sodium) 4,000 unit 1X ONCE IV Last administered on 08/09/16 10:14; Start 08/09/16 at 10:30; Stop 08/09/16 at 10:31 ; Status DC Heparin Sodium/ Dextrose 500 ml @ 0 mls/hr 1X ONCE IV Last administered on 12:45; Start 08/09/16 at 10:30; Stop 08/09/16 at 10:31; Status DC Sodium Chloride 1,000 ml @ 100 mls/hr Q10H IV ; Start 08/09/16 at 10:17; Stop 08/09/16 at 20:16; Status DC Fentanyl Citrate (Fentanyl 2ml Vial) 100 mcg STK-MED ONCE .ROUTE ; Start at 11:01; Stop 08/09/16 at 11:02; Status DC Midazolam HCl (Versed) 2 mg STK-MED ONCE .ROUTE ; Start 08/09/16 at 11:01; Stop 08/09/16 at 11:02; Status DC Heparin Sodium/ Sodium Chloride 1,000 ml @ As Directed STK-MED ONCE .ROUTE ; Start 08/09/16 at 11:02; Stop 08/09/16 at 11:03; Status DC Iodixanol (Visipaque 320) 100 ml STK-MED ONCE .ROUTE ; Start 08/09/16 at 11:02; Stop 08/09/16 at 11:03; Status DC Lidocaine HCl 20 ml STK-MED ONCE .ROUTE ; Start 08/09/16 at 11:02; Stop at 11:03; Status DC Heparin Sodium (Porcine) (Heparin Sodium) 10,000 unit STK-MED ONCE .ROUTE ; Start 08/09/16 at 11:06; Stop 08/09/16 at 11:07; Status DC Heparin Sodium/ Sodium Chloride 1,000 unit 1X ONCE IART Last administered on 12:04; Start 08/09/16 at 11:30; Stop 08/10/16 at 07:43; Status DC Midazolam HCl (Versed) 2 mg 1X ONCE IV Last administered on 08/09/16 11:30; Start 08/09/16 at 11:30; Stop 08/09/16 at 11:31; Status DC Fentanyl Citrate (Fentanyl 2ml Vial) 100 mcg 1X ONCE IV Last administered on 12:06; Start 08/09/16 at 11:30; Stop 08/09/16 at 11:31; Status DC Iodixanol (Visipaque 320) 100 ml 1X ONCE IART Last administered on 08/09/16 12:04; Start 08/09/16 at 11:30; Stop 08/09/16 at 11:31; Status DC Lidocaine HCl 20 ml 1X ONCE IJ Last administered on 08/09/16 12:04; Start at 11:30; Stop 08/09/16 at 11:31; Status DC Heparin Sodium (Porcine) (Heparin Sodium) 2,000 unit 1X ONCE IV Last administered on 08/09/16 12:08; Start 08/09/16 at 11:30; Stop 08/09/16 at 11:31 ; Status DC Tirofiban/Sodium Chloride 250 ml @ As Directed STK-MED ONCE IV ; Start at 11:21; Stop 08/09/16 at 11:22; Status DC Info (Do NOT chart on this entry -- for MONITORING) 1 each PRN DAILY PRN MC SEE COMMENTS; Start 08/09/16 at 11:30; Stop 08/11/16 at 11:29; Status DC Tirofiban/Sodium Chloride 100 ml @ 0 mls/hr 1X ONCE IV Last administered on 11:30; Start 08/09/16 at 11:30; Stop 08/09/16 at 11:31; Status DC Tirofiban/Sodium Chloride 250 ml @ 0 mls/hr CONT PRN IV PER PROTOCOL Last administered on 08/09/16 22:05; Start 08/09/16 at 11:30; Stop 08/10/16 at 05:29 ; Status DC Heparin Sodium/ Dextrose 500 ml @ 20 mls/hr CONT PRN IV SEE I/O RECORD Last administered on 08/13/16 08:15; Start 08/09/16 at 18:30; Stop 08/14/16 at 04:00 ; Status DC Heparin Sodium (Porcine) (Heparin Sodium) 2,300 unit PRN Q6HRS PRN IV FOR UFH LEVEL LESS THAN 0.2 Last administered on 08/09/16 18:37; Start 08/09/16 at 18: 30; Stop 08/14/16 at 08:56; Status DC Insulin Aspart (NovoLOG) 0-5 UNITS TIDWMEALS SQ Last administered on 08/10/16 07:34; Start 08/10/16 at 08:00; Stop 08/10/16 at 08:27; Status DC Dextrose (Dextrose 50%-Water Syringe) 12.5 gm PRN Q15MIN PRN IV SEE COMMENTS; Start 08/09/16 at 18:45; Stop 08/10/16 at 08:41; Status DC Ondansetron HCl (Zofran) 4 mg PRN Q6HRS PRN IV NAUSEA/VOMITING; Start 08/10/16 at 08:30; Stop 08/13/16 at 16:22; Status DC Acetaminophen (Tylenol) 650 mg PRN Q6HRS PRN PO pain; Start 08/10/16 at 08:30; Stop 08/13/16 at 16:19; Status DC Insulin Aspart (NovoLOG) 0-9 UNITS TIDWMEALS SQ Last administered on 08/12/16 17:36; Start 08/10/16 at 12:00 Dextrose (Dextrose 50%-Water Syringe) 12.5 gm PRN Q15MIN PRN IV SEE COMMENTS; Start 08/10/16 at 08:30; Stop 08/14/16 at 08:49; Status DC Amiodarone HCl (Cordarone) 200 mg DAILY PO Last administered on 08/13/16 08:11 ; Start 08/10/16 at 09:00 Aspirin (Children'S Aspirin) 81 mg DAILY PO Last administered on 08/10/16 10: 25; Start 08/10/16 at 09:00; Stop 08/10/16 at 17:45; Status DC Atorvastatin Calcium (Lipitor) 40 mg QHS PO Last administered on 08/13/16 22: 24; Start 08/10/16 at 21:00 Insulin Aspart (NovoLOG) 12 units TIDAC SQ Last administered on 08/10/16 11:43 ; Start 08/10/16 at 11:30; Stop 08/11/16 at 10:54; Status DC Metformin HCl (Glucophage) 1,000 mg BIDWMEALS PO Last administered on 10:26; Start 08/10/16 at 08:30; Stop 08/10/16 at 10:49; Status DC Metoprolol Tartrate (Lopressor) 50 mg BID PO Last administered on 08/13/16 08: 11; Start 08/10/16 at 09:00; Stop 08/13/16 at 16:22; Status DC Lisinopril (Prinivil) 20 mg DAILY PO Last administered on 08/10/16 10:25; Start 08/10/16 at 09:00; Stop 08/10/16 at 17:45; Status DC Insulin Detemir (Levemir) 32 units QHS SQ Last administered on 08/10/16 21:28 ; Start 08/10/16 at 21:00; Stop 08/11/16 at 10:54; Status DC Ticagrelor (Brilinta) 90 mg BID PO ; Start 08/10/16 at 09:00; Status Cancel Tirofiban/Sodium Chloride 250 ml @ 0 mls/hr CONT PRN IV PER PROTOCOL Last administered on 08/13/16 02:23; Start 08/10/16 at 09:15; Stop 08/13/16 at 10:15 ; Status DC Metoprolol Tartrate (Lopressor) 25 mg 1X ONCE PO ; Start 08/14/16 at 06:00; Stop 08/14/16 at 06:01; Status Cancel Cefazolin Sodium/ Dextrose 50 ml @ 100 mls/hr 1X ONCE IV ; Start 08/14/16 at 06:00; Stop 08/14/16 at 06:29; Status Cancel Insulin Aspart (NovoLOG) 15 units TIDAC SQ ; Start 08/11/16 at 11:30; Stop 08/11 at 11:39; Status DC Insulin Detemir (Levemir) 38 units QHS SQ ; Start 08/11/16 at 21:00; Stop at 21:00; Status DC Insulin Aspart (NovoLOG) 12 units TIDAC SQ Last administered on 08/12/16 09:01 ; Start 08/11/16 at 12:00; Stop 08/12/16 at 09:51; Status DC Insulin Detemir (Levemir) 32 units QHS SQ ; Start 08/11/16 at 21:00; Stop at 09:51; Status DC Ondansetron HCl (Zofran) 4 mg PRN Q6HRS PRN IV NAUSEA/VOMITING; Start 08/14/16 at 07:00; Stop 08/15/16 at 06:59 Fentanyl Citrate (Fentanyl 2ml Vial) 25 mcg PRN Q5MIN PRN IV MILD PAIN; Start 08/14/16 at 07:00; Stop 08/15/16 at 06:59 Fentanyl Citrate (Fentanyl 2ml Vial) 50 mcg PRN Q5MIN PRN IV MODERATE PAIN; Start 08/14/16 at 07:00; Stop 08/15/16 at 06:59 Morphine Sulfate 1 mg PRN Q10MIN PRN IV SEVERE PAIN Last administered on 17:47; Start 08/14/16 at 07:00; Stop 08/14/16 at 07:00; Status DC Ringer's Solution 1,000 ml @ 30 mls/hr Q24H IV ; Start 08/14/16 at 07:00; Stop 08/14/16 at 18:59 Lidocaine HCl 2 ml PRN 1X PRN ID PRIOR TO IV START; Start 08/14/16 at 07:00; Stop 08/15/16 at 06:59 Hydromorphone HCl (Dilaudid) 0.5 mg PRN Q10MIN PRN IV SEV PAIN, Second choice; Start 08/14/16 at 07:00; Stop 08/15/16 at 06:59 Prochlorperazine Edisylate (Compazine) 5 mg PACU PRN PRN IV NAUSEA, MRX1; Start 08/14/16 at 07:00; Stop 08/15/16 at 06:59 Insulin Aspart (NovoLOG) 20 units 1X ONCE SQ Last administered on 08/11/16 17 :41; Start 08/11/16 at 17:30; Stop 08/11/16 at 17:31; Status DC Insulin Aspart (NovoLOG) 15 units TIDAC SQ Last administered on 08/13/16 08:16 ; Start 08/12/16 at 11:30 Insulin Detemir (Levemir) 38 units QHS SQ Last administered on 08/12/16 20:52 ; Start 08/12/16 at 21:00 Aspirin (Ecotrin) 81 mg DAILYWBKFT PO Last administered on 08/13/16 08:11; Start 08/13/16 at 08:00; Stop 08/13/16 at 16:20; Status DC Heparin Sodium (Porcine) 03634 unit/Ringer's Solution 1,020 ml @ 1,020 mls/hr 1X PERIOP ONCE IRR ; Start 08/14/16 at 06:00; Stop 08/14/16 at 06:59; Status Cancel Potassium Chloride 70 meq/ Sodium Bicarbonate 12.5 meq/Lidocaine HCl 24 ml/ Parenteral Electrolytes 571.5 ml @ 571.5 mls/ hr 1X PERIOP ONCE IRR ; Start at 06:00; Stop 08/14/16 at 06:59; Status Cancel Potassium Chloride 15 meq/ Sodium Bicarbonate 12.5 meq/Parenteral Electrolytes 520 ml @ 520 mls/hr 1X PERIOP ONCE IRR ; Start 08/14/16 at 06:00; Stop at 06:59; Status Cancel Vancomycin HCl 1.5 gm/Sodium Chloride 500 ml @ 250 mls/hr 1X ONCE IV ; Start 08/14/16 at 06:00; Stop 08/14/16 at 07:59; Status UNV Zolpidem Tartrate (Ambien) 5 mg PRN QHS PRN PO INSOMNIA, MAY REPEAT IN 1HR; Start 08/13/16 at 10:30 Carvedilol (Coreg) 3.125 mg 1X ONCE PO ; Start 08/14/16 at 06:00; Stop at 07:45; Status DC Insulin Human Regular 150 unit/ Sodium Chloride 151.5 ml @ 0 mls/hr CONT PRN IV SEE I/O RECORD; Start 08/14/16 at 06:00; Status Cancel Vancomycin HCl 1.25 gm/Sodium Chloride 250 ml @ 166.667 mls/hr 1X ONCE IV ; Start 08/13/16 at 13:30; Stop 08/13/16 at 14:59; Status DC Morphine Sulfate 1 mg 1X ONCE IV Last administered on 08/13/16 11:27; Start 08/13/16 at 11:30; Stop 08/13/16 at 11:31; Status DC Heparin Sodium (Porcine) 82592 unit/Ringer's Solution 1,020 ml @ 1,020 mls/hr 1X PERIOP ONCE IRR Last administered on 08/13/16 13:56; Start 08/13/16 at 12: 00; Stop 08/13/16 at 12:59; Status DC Potassium Chloride 15 meq/ Sodium Bicarbonate 12.5 meq/Parenteral Electrolytes 520 ml @ 520 mls/hr 1X PERIOP ONCE IRR Last administered on 08/13/16 14:26; Start 08/13/16 at 12:00; Stop 08/13/16 at 12:59; Status DC Potassium Chloride 70 meq/ Sodium Bicarbonate 12.5 meq/Lidocaine HCl 24 ml/ Parenteral Electrolytes 571.5 ml @ 571.5 mls/ hr 1X PERIOP ONCE IRR Last administered on 08/13/16 14:26; Start 08/13/16 at 12:00; Stop 08/13/16 at 12:59 ; Status DC Phenylephrine HCl (Sam-Synephrine Inj) 10 mg STK-MED ONCE .ROUTE ; Start at 12:13; Stop 08/13/16 at 12:14; Status DC Ephedrine Sulfate 50 mg STK-MED ONCE IV ; Start 08/13/16 at 12:13; Stop at 12:14; Status DC Etomidate (Amidate) 20 mg STK-MED ONCE IV ; Start 08/13/16 at 12:13; Stop at 12:14; Status DC Lidocaine HCl (Xylocaine 2% Topical 5gm Tube) 5 shamika STK-MED ONCE TP ; Start at 12:13; Stop 08/13/16 at 12:14; Status DC Rocuronium Mcnary (Zemuron) 100 mg STK-MED ONCE .ROUTE ; Start 08/13/16 at 12: 14; Stop 08/13/16 at 12:15; Status DC Heparin Sodium (Porcine) 30,000 unit STK-MED ONCE .ROUTE ; Start 08/13/16 at 12: 16; Stop 08/13/16 at 12:17; Status DC Aminocaproic Acid (Amicar) 5,000 mg STK-MED ONCE IV ; Start 08/13/16 at 12:16; Stop 08/13/16 at 12:17; Status DC Nitroglycerin/ Dextrose 250 ml @ As Directed STK-MED ONCE IV ; Start 08/13/16 at 12:17; Stop 08/14/16 at 07:45; Status DC Sufentanil Citrate (Sufenta) 100 mcg STK-MED ONCE .ROUTE ; Start 08/13/16 at 12: 17; Stop 08/13/16 at 12:18; Status DC Midazolam HCl (Versed) 5 mg STK-MED ONCE .ROUTE ; Start 08/13/16 at 12:17; Stop 08/13/16 at 12:18; Status DC Fentanyl Citrate (Fentanyl 5ml Vial) 250 mcg STK-MED ONCE .ROUTE ; Start at 12:17; Stop 08/13/16 at 12:18; Status DC Heparin Sodium/ Sodium Chloride 1,000 ml @ As Directed STK-MED ONCE .ROUTE ; Start 08/13/16 at 12:19; Stop 08/13/16 at 12:20; Status DC Lidocaine HCl 20 ml STK-MED ONCE .ROUTE ; Start 08/13/16 at 12:19; Stop at 12:20; Status DC Iodixanol (Visipaque 320) 100 ml STK-MED ONCE .ROUTE ; Start 08/13/16 at 12:19; Stop 08/13/16 at 12:20; Status DC Succinylcholine Chloride (Anectine) 200 mg STK-MED ONCE .ROUTE ; Start 08/13/16 at 12:26; Stop 08/13/16 at 12:27; Status DC Fentanyl Citrate (Fentanyl 2ml Vial) 100 mcg STK-MED ONCE .ROUTE ; Start at 12:26; Stop 08/13/16 at 12:27; Status DC Midazolam HCl (Versed) 2 mg STK-MED ONCE .ROUTE ; Start 08/13/16 at 12:26; Stop 08/13/16 at 12:27; Status DC Phenylephrine HCl 1 mg STK-MED ONCE IV ; Start 08/13/16 at 12:26; Stop 08/13/16 at 12:27; Status DC Cellulose 1 each STK-MED ONCE .ROUTE Last administered on 08/13/16 13:56; Start 08/13/16 at 12:26; Stop 08/13/16 at 12:27; Status DC Cefazolin Sodium/ Dextrose 50 ml @ As Directed STK-MED ONCE IV ; Start 08/13/16 at 12:27; Stop 08/13/16 at 12:28; Status DC Protamine Sulfate 50 mg STK-MED ONCE IV ; Start 08/13/16 at 12:27; Stop at 12:28; Status DC Aspirin (Aspirin) 300 mg STK-MED ONCE .ROUTE Last administered on 08/13/16 16: 18; Start 08/13/16 at 12:27; Stop 08/13/16 at 12:28; Status DC Mineral Oil (Muri-Lube) 10 ml STK-MED ONCE MC Last administered on 08/13/16 15 :10; Start 08/13/16 at 12:27; Stop 08/13/16 at 12:28; Status DC Heparin Sodium (Porcine) (Heparin Sodium) 10,000 unit STK-MED ONCE .ROUTE ; Start 08/13/16 at 12:29; Stop 08/13/16 at 12:30; Status DC Atropine Sulfate 0.5 mg STK-MED ONCE .ROUTE ; Start 08/13/16 at 12:30; Stop at 12:31; Status DC Nitroglycerin (Nitroglycerin) 200 mcg 1X ONCE IART Last administered on 12:45; Start 08/13/16 at 12:45; Stop 08/13/16 at 12:46; Status DC Heparin Sodium/ Sodium Chloride 1,000 unit 1X ONCE IART Last administered on 12:45; Start 08/13/16 at 12:45; Stop 08/13/16 at 12:46; Status DC Iodixanol (Visipaque 320) 100 ml 1X ONCE IART Last administered on 08/13/16 12:45; Start 08/13/16 at 12:45; Stop 08/13/16 at 12:46; Status DC Lidocaine HCl 20 ml 1X ONCE IJ Last administered on 08/13/16 12:45; Start at 12:45; Stop 08/13/16 at 12:46; Status DC Heparin Sodium (Porcine) (Heparin Sodium) 3,000 unit 1X ONCE IV ; Start at 12:45; Stop 08/13/16 at 12:46; Status DC Heparin Sodium/ Sodium Chloride 500 ml @ As Directed STK-MED ONCE .ROUTE ; Start 08/13/16 at 12:39; Stop 08/13/16 at 12:40; Status DC Nitroglycerin/ Dextrose 250 ml @ As Directed STK-MED ONCE IV ; Start 08/13/16 at 12:47; Stop 08/14/16 at 07:45; Status DC Rocuronium Mcnary (Zemuron) 100 mg STK-MED ONCE .ROUTE ; Start 08/13/16 at 14: 51; Stop 08/13/16 at 14:52; Status DC Protamine Sulfate 250 mg STK-MED ONCE IV ; Start 08/13/16 at 14:52; Stop at 14:53; Status DC Protamine Sulfate 50 mg STK-MED ONCE IV ; Start 08/13/16 at 15:05; Stop at 15:06; Status DC Epinephrine HCl (EPINEPHrine SYRINGE) 1 mg STK-MED ONCE .ROUTE ; Start 08/13/16 at 15:09; Stop 08/13/16 at 15:10; Status DC Midazolam HCl (Versed) 2 mg STK-MED ONCE .ROUTE ; Start 08/13/16 at 15:33; Stop 08/13/16 at 15:34; Status DC Lidocaine HCl (Lidocaine Pf 2% Vial) 5 ml STK-MED ONCE .ROUTE ; Start 08/13/16 at 15:38; Stop 08/13/16 at 15:39; Status DC Aminocaproic Acid (Amicar) 5,000 mg STK-MED ONCE IV ; Start 08/13/16 at 15:38; Stop 08/13/16 at 15:39; Status DC Mannitol (Mannitol) 12.5 g STK-MED ONCE .ROUTE ; Start 08/13/16 at 15:38; Stop 08/13/16 at 15:39; Status DC Calcium Chloride 1,000 mg STK-MED ONCE IV ; Start 08/13/16 at 15:38; Stop at 15:39; Status DC Albumin Human 100 ml @ As Directed STK-MED ONCE IV ; Start 08/13/16 at 15:38; Stop 08/13/16 at 15:39; Status DC Heparin Sodium (Porcine) 30,000 unit STK-MED ONCE .ROUTE ; Start 08/13/16 at 15: 39; Stop 08/13/16 at 15:40; Status DC Magnesium Sulfate 5 gm STK-MED ONCE .ROUTE ; Start 08/13/16 at 15:39; Stop 08/13 at 15:40; Status DC Desflurane (Suprane) 90 ml STK-MED ONCE IH ; Start 08/13/16 at 15:54; Stop 08/13 at 15:55; Status DC Midazolam HCl (Versed) 2 mg STK-MED ONCE .ROUTE ; Start 08/13/16 at 16:01; Stop 08/13/16 at 16:02; Status DC Rocuronium Mcnary (Zemuron) 50 mg STK-MED ONCE .ROUTE ; Start 08/13/16 at 16:08 ; Stop 08/13/16 at 16:09; Status DC Dextrose 1,000 ml @ 30 mls/hr Q24H IV ; Start 08/13/16 at 16:08 Albumin Human 250 ml @ 60 mls/hr PRN Q4HRS PRN IV SEE I/O RECORD Last administered on 08/13/16 18:22; Start 08/13/16 at 17:00 Insulin Human Regular 150 unit/ Sodium Chloride 151.5 ml @ 0 mls/hr CONT PRN PRN IV SEE I/O RECORD Last administered on 08/13/16 18:12; Start 08/13/16 at 16 :15 Dextrose (Dextrose 50%-Water Syringe) 25 gm PRN Q15MIN PRN IV LOW BLOOD SUGAR; Start 08/13/16 at 16:15 Nitroglycerin/ Dextrose 250 ml @ 0 mls/hr CONT PRN PRN IV SEE I/O RECORD; Start 08/13/16 at 16:15; Stop 08/14/16 at 07:45; Status DC Dopamine HCl/ Dextrose 250 ml @ 0 mls/hr CONT PRN PRN IV SEE I/O RECORD; Start 08/13/16 at 16:15 Amiodarone HCl 900 mg/Dextrose 518 ml @ 33.33 mls/ hr CONT PRN PRN IV RUNS OF VT; Start 08/13/16 at 16:15 Amiodarone HCl 150 mg/Dextrose 103 ml @ 200 mls/hr 1X PRN PRN IV VT; Start at 16:15 Info 1 ea CONT PRN PRN MC SEE COMMENTS; Start 08/13/16 at 16:15 Info 1 ea CONT PRN PRN MC SEE COMMENTS; Start 08/13/16 at 16:15 Magnesium Sulfate/ Dextrose 100 ml @ 100 mls/hr PRN DAILY PRN IV FOR MAG < 2.2 ; Start 08/13/16 at 16:15 Famotidine (Pepcid) 20 mg BID IVP Last administered on 08/13/16 22:25; Start 08/13/16 at 21:00 Ondansetron HCl (Zofran) 4 mg PRN Q4HRS PRN IV NAUSEA/VOMITING; Start 08/13/16 at 16:15 Morphine Sulfate 2 mg PRN Q1HR PRN IV PAIN Last administered on 08/14/16 01:18 ; Start 08/13/16 at 16:15 Acetaminophen (Tylenol) 650 mg PRN Q4HRS PRN PO MILD PAIN / TEMP; Start at 16:15 Acetaminophen (Acetaminophen Supp) 650 mg PRN Q4HRS PRN TX MILD PAIN / TEMP; Start 08/13/16 at 16:15 Meperidine HCl (Demerol) 12.5 mg PRN Q15MIN PRN IV SHIVERING Last administered on 08/13/16 17:28; Start 08/13/16 at 16:15; Stop 08/14/16 at 07:45; Status DC Propofol 100 ml @ 0 mls/hr CONT PRN PRN IV POSTOP SEDATION UNTIL EXTUBATE; Start 08/13/16 at 16:15; Stop 08/14/16 at 07:45; Status DC Senna/Docusate Sodium (Senna Plus) 1 tab BID PO ; Start 08/14/16 at 09:00 Bisacodyl (Dulcolax Supp) 10 mg PRN DAILY PRN TX NO BOWEL MOVEMENT; Start 08/13 at 16:15 Chlorhexidine Gluconate (Peridex) 15 ml BID MM ; Start 08/13/16 at 21:00; Stop 08/14/16 at 08:43; Status DC Aspirin (Ecotrin) 325 mg DAILYWBKFT PO ; Start 08/14/16 at 08:00 Aspirin (Aspirin) 300 mg PRN DAILY PRN TX IF UNABLE TO TAKE PO; Start 08/13/16 at 16:15 Albuterol Sulfate (Ventolin Neb Soln) 2.5 mg PRN Q4HRS PRN NEB SHORTNESS OF BREATH; Start 08/13/16 at 16:15 Metoprolol Tartrate (Lopressor) 25 mg BID PO ; Start 08/14/16 at 09:00; Status Future hold Nicardipine HCl 50 mg/Sodium Chloride 270 ml @ 0 mls/hr CONT PRN PRN IV PER PROTOCOL; Start 08/13/16 at 16:15; Stop 08/14/16 at 07:45; Status DC Clevidipine 100 ml @ 0 mls/hr CONT PRN IV PER PROTOCOL; Start 08/13/16 at 16:15 ; Stop 08/14/16 at 07:45; Status DC Oxycodone/ Acetaminophen (Percocet 5/325) 1 tab PRN Q4HRS PRN PO MILD PAIN; Start 08/13/16 at 16:15 Oxycodone/ Acetaminophen (Percocet 5/325) 2 tab PRN Q4HRS PRN PO MODERATE PAIN , SEVERE PAIN Last administered on 08/14/16 06:33; Start 08/13/16 at 16:15 Cefazolin Sodium/ Dextrose 50 ml @ 100 mls/hr Q8H IV Last administered on 08/14 06:11; Start 08/13/16 at 22:00; Stop 08/15/16 at 06:29 Lidocaine HCl 30 ml STK-MED ONCE .ROUTE ; Start 08/13/16 at 17:10; Stop at 17:11; Status DC Morphine Sulfate 1 mg PRN Q10MIN PRN IV SEVERE PAIN; Start 08/13/16 at 18:00 Potassium Chloride 50 ml @ 50 mls/hr 1X ONCE IV Last administered on 19:08; Start 08/13/16 at 18:15; Stop 08/13/16 at 19:14; Status DC Lidocaine HCl 30 ml STK-MED ONCE .ROUTE ; Start 08/13/16 at 17:00; Stop at 07:12; Status DC Active Scripts Active Brilinta (Ticagrelor) 90 Mg Tablet 90 Mg PO BID 30 Days Atorvastatin Calcium 40 Mg Tablet 40 Mg PO QHS 30 Days Aspirin Ec (Aspirin) 81 Mg Tablet.dr 81 Mg PO DAILYWBKFT 30 Days Amiodarone Hcl 200 Mg Tablet 200 Mg PO DAILY 30 Days Reported Metoprolol Tartrate 50 Mg Tablet 1 Tab PO BID NITROGLYCERIN SubLingual (Nitroglycerin) 0.4 Mg Tab.subl 1 Tab SL UD Novolog Flexpen (Insulin Aspart) 100 Unit/1 Ml Insuln.pen 12 Unit SQ TIDAC Metformin Hcl 1,000 Mg Tablet 1,000 Mg PO BIDWMEALS Lantus Solostar (Insulin Glargine,Hum.rec.anlog) 100 Unit/1 Ml Insuln.pen 32 Unit SQ QHS Enalapril Maleate 10 Mg Tablet 1 Tab PO DAILY Atorvastatin Calcium 40 Mg Tablet 1 Tab PO QHS Aspirin 81 Mg Tab.chew 1 Tab PO DAILY Vitals/I & O Vital Sign - Last 24 Hours 08/13/16 08/13/16 08/13/16 08/13/16 11:27 16:45 16:45 17:00 Temp 96.5 96.5 Pulse 96 118 Resp B/P (MAP) 130/64 (86) Pulse Ox 94 95 O2 Delivery Room Air Ventilator Mechanical Ventilator 08/13/16 08/13/16 08/13/16 08/13/16 17:00 17:00 17:15 17:15 Temp 96.8 96.8 Pulse 102 112 108 104 Resp B/P (MAP) 174/88 (116) 169/94 (119) 150/78 (102) Pulse Ox 100 100 O2 Delivery Ventilator Ventilator 08/13/16 08/13/16 08/13/16 08/13/16 17:19 17:30 17:30 17:45 Temp 96.7 96.7 Pulse 111 112 110 Resp 21 B/P (MAP) 144/74 (97) 144/74 (97) 156/74 (101) Pulse Ox 100 99 O2 Delivery Ventilator Ventilator Ventilator 08/13/16 08/13/16 08/13/16 08/13/16 18:00 18:00 18:15 19:00 Temp 96.4 96.5 96.4 96.5 Pulse 96 95 84 87 Resp 20 18 B/P (MAP) 97/58 (71) 92/48 (63) 102/56 (71) 100/50 (67) 116/58 (77) Pulse Ox 100 100 O2 Delivery Ventilator Ventilator 08/13/16 08/13/16 08/13/16 08/13/16 19:15 19:15 19:32 19:45 Temp 96.9 96.9 Pulse 88 88 Resp 22 B/P (MAP) 109/57 (74) Pulse Ox 99 99 O2 Delivery Ventilator Ventilator Mechanical Ventilator 08/13/16 08/13/16 08/13/16 08/13/16 19:54 20:00 20:00 20:51 Temp 97.4 97.4 Pulse 86 86 Resp 22 22 B/P (MAP) 103/56 (72) Pulse Ox 98 99 97 O2 Delivery Ventilator Ventilator 08/13/16 08/13/16 08/13/16 08/13/16 20:55 21:00 21:00 21:20 Temp 98.0 98.0 Pulse 87 87 Resp 22 B/P (MAP) 102/55 (71) Pulse Ox 97 97 97 O2 Delivery Ventilator 08/13/16 08/13/16 08/13/16 08/13/16 21:58 22:00 22:00 22:13 Temp 98.2 98.2 Pulse 88 88 Resp 18 20 22 B/P (MAP) 134/63 (86) Pulse Ox 97 95 95 O2 Delivery Nasal Cannula Nasal Cannula Nasal Cannula O2 Flow Rate 5.0 5.0 5.0 08/13/16 08/13/16 08/13/16 08/14/16 23:00 23:00 23:23 00:00 Temp 98.6 98.6 Pulse 87 87 93 Resp 18 20 B/P (MAP) 134/64 (87) 104/57 (73) Pulse Ox 97 97 O2 Delivery Nasal Cannula Nasal Cannula O2 Flow Rate 5.0 5.0 08/14/16 08/14/16 08/14/16 08/14/16 00:00 00:00 01:00 01:00 Temp 98.4 98.3 98.4 98.3 Pulse 93 95 95 Resp 22 B/P (MAP) 135/65 (88) Pulse Ox 96 98 O2 Delivery Nasal Cannula Nasal Cannula Nasal Cannula O2 Flow Rate 3.0 3.0 3.0 08/14/16 08/14/16 08/14/1626/17 01:18 01:50 02:00 02:00 Temp 98.5 98.5 Pulse 94 94 Resp B/P (MAP) 119/67 (84) Pulse Ox 97 97 97 O2 Delivery Nasal Cannula Nasal Cannula Nasal Cannula O2 Flow Rate 3.0 3.0 3.0 08/14/16 08/14/16 08/14/16 08/14/16 02:09 03:00 03:00 03:10 Temp 98.4 98.4 Pulse 91 91 Resp B/P (MAP) 117/65 (82) Pulse Ox 97 96 96 O2 Delivery Nasal Cannula Nasal Cannula O2 Flow Rate 3.0 3.0 3.0 08/14/16 08/14/16 08/14/16 08/14/16 03:54 04:00 04:00 05:00 Temp 98.1 98.1 Pulse 90 90 91 Resp B/P (MAP) 136/71 (92) 117/59 (78) Pulse Ox 96 O2 Delivery Nasal Cannula Nasal Cannula O2 Flow Rate 3.0 3.0 08/14/16 08/14/16 08/14/16 08/14/16 05:00 06:00 06:00 06:33 Temp 98.5 98.7 98.5 98.7 Pulse 91 91 91 Resp B/P (MAP) 120/62 (81) Pulse Ox 96 96 96 O2 Delivery Nasal Cannula Nasal Cannula Nasal Cannula O2 Flow Rate 3.0 3.0 3.0 08/14/16 08/14/16 08/14/16 08/14/16 07:00 07:00 08:00 08:00 Temp 98.3 98.3 Pulse 88 84 88 Resp 12 B/P (MAP) 132/62 (85) Pulse Ox 96 97 O2 Delivery Nasal Cannula Nasal Cannula Nasal Cannula O2 Flow Rate 3.0 3.0 3.0 08/14/16 08/14/16 08:00 08:31 Pulse 84 B/P (MAP) 128/60 (82) Pulse Ox 97 O2 Delivery Nasal Cannula O2 Flow Rate 3.0 Intake and Output 08/13/16 08/13/16 08/14/16 14:59 22:59 06:59 Intake Total 240 ml 800 ml 1252.14 ml Output Total 625 ml 2288 ml 1103 ml Balance -385 ml -1488 ml 149.14 ml AYE VIRK MD Aug 14, 2016 09:05
[2016-08-14] MEDS: AMIODARONE HCL 200 MG TABLET. PO SCH (10:09)
[2016-08-14] MEDS: FAMOTIDINE 20 MG/2 ML VIAL IVP SCH ×2 (10:10→21:24)
[2016-08-14] MEDS: ASPIRIN ENTERIC COATED 325 MG TABLET.DR. PO SCH (10:10)
[2016-08-14] MEDS: SENNOSIDES/DOCUSATE 8.6/50MG TABLET. PO SCH ×2 (10:10→21:00)
--- NOTE | 2016-08-14 11:16 | PDOC ---
CARDIO Progress Notes Date and Time Date of Service 08/14/2016 Time of Evaluation 0930 Subjective Subjective: No shortness of breath, No Palpitations, No Dizziness, Other ( Surical chest pain controlled) Vitals Vitals Vital Signs Date Time Temp Pulse Resp B/P (MAP) Pulse Ox O2 Delivery O2 Flow Rate FiO2 08/14/16 10:09 97 Nasal Cannula 3.0 08/14/16 10:09 90 129/70 08/14/16 10:00 98.3 20 98.3 Weight Weight [ ] Input and Output Intake and Output Intake and Output 08/14/16 06:59 Intake Total 2292.14 ml Output Total 4016 ml Balance -1723.86 ml Intake Oral 240 ml IV Total 2052.14 ml Output Urine Total 3475 ml Chest Tube Drainage Total 541 ml Laboratory Labs Laboratory Tests Test 08/13/16 11:55 08/13/16 13:53 08/13/16 14:40 08/13/16 15:24 Troponin I Quantitative 0.331 ng/mL (0.000-0.055) Bedside Hemoglobin (Calculated) 11.2 g/dL (14-18) 9.2 g/dL (14-18) 9.2 g/dL (14-18) Bedside Hematocrit 33 % (37-52) 27 % (37-52) 27 % (37-52) Bedside Arterial pH 7.35 (7.35-7.45) 7.37 (7.35-7.45) 7.33 (7.35-7.45) Bedside Arterial pCO2 49 mmHg (35-45) 43 mmHg (35-45) 46 mmHg (35-45) Bedside Arterial pO2 426 mmHg (75-100) 350 mmHg (75-100) 200 mmHg (75-100) Bedside Arterial HCO3 27 mmol/L (21-28) 25 mmol/L (21-28) 24 mmol/L (21-28) Bedside Arterial Total CO2 28 mmol/L (21-32) 26 mmol/L (21-32) 25 mmol/L (21-32) Arterial Bld O2 Saturation (Measur) 100 % (95-99) 100 % (95-99) 100 % (95-99) Bedside Arterial Blood Base Excess 1 mmol/L (0-3) -1 mmol/L (0-3) -2 mmol/L (0-3) Bedside FiO2 100.0 80.0 100.0 Bedside Sodium 141 mmol/L (135-145) 137 mmol/L (135-145) 139 mmol/L (135-145) Bedside Potassium 3.6 mmol/L (3.5-5.0) 4.4 mmol/L (3.5-5.0) 3.9 mmol/L (3.5-5.0) Glucose Level 151 mg/dL (70-99) 159 mg/dL (70-99) 176 mg/dL (70-99) Bedside Ionized Calcium (Jensen) 1.13 mmol/L (1.13-1.32) 1.10 mmol/L (1.13-1.32) 1.84 mmol/L (1.13-1.32) Test 08/13/16 15:34 08/13/16 16:09 08/13/16 17:40 08/13/16 17:42 White Blood Count 16.2 x10^3/uL (4.0-11.0) 17.7 x10^3/uL (4.0-11.0) Hemoglobin 9.3 g/dL (13.0-17.5) 11.9 g/dL (13.0-17.5) Hematocrit 28.2 % (39.0-53.0) 36.4 % (39.0-53.0) Platelet Count 166 x10^3/uL (140-400) 234 x10^3/uL (140-400) Prothrombin Time 17.7 SEC (11.7-14.0) Prothromb Time International Ratio 1.6 (0.8-1.1) Activated Partial Thromboplast Time 26 SEC (24-38) Fibrinogen 337 mg/dL (200-440) Bedside Hemoglobin (Calculated) 10.5 g/dL (14-18) Bedside Hematocrit 31 % (37-52) Bedside Arterial pH 7.36 (7.35-7.45) Bedside Arterial pCO2 39 mmHg (35-45) Bedside Arterial pO2 66 mmHg (75-100) Bedside Arterial HCO3 22 mmol/L (21-28) Bedside Arterial Total CO2 23 mmol/L (21-32) Arterial Bld O2 Saturation (Measur) 92 % (95-99) Bedside Arterial Blood Base Excess -3 mmol/L (0-3) Bedside FiO2 100.0 Bedside Sodium 140 mmol/L (135-145) Bedside Potassium 3.9 mmol/L (3.5-5.0) Glucose Level 177 mg/dL (70-99) 185 mg/dL (70-99) Bedside Ionized Calcium (Jensen) 1.53 mmol/L (1.13-1.32) Red Blood Count 4.05 x10^6/uL (4.30-5.70) Mean Corpuscular Volume 90 fL (79-100) Mean Corpuscular Hemoglobin 29 pg (25-35) Mean Corpuscular Hemoglobin Concent 33 g/dL (31-37) Red Cell Distribution Width 13.9 % (11.5-14.5) Sodium Level 143 mmol/L (136-145) Potassium Level 3.9 mmol/L (3.5-5.1) Chloride Level 110 mmol/L (98-107) Carbon Dioxide Level 23 mmol/L (21-32) Anion Gap 10 (6-14) Blood Urea Nitrogen 8 mg/dL (8-26) Creatinine 0.5 mg/dL (0.7-1.3) Estimated GFR (Cockcroft-Gault) 169.6 Calcium Level 8.9 mg/dL (8.5-10.1) Magnesium Level 2.2 mg/dL (1.8-2.4) Glucose (Fingerstick) 182 mg/dL (70-99) Test 08/13/16 17:44 08/13/16 19:00 08/13/16 20:03 08/13/16 20:49 O2 Saturation 99 % (92-99) 95 % (92-99) Arterial Blood pH 7.30 (7.35-7.45) 7.43 (7.35-7.45) Arterial Blood pCO2 at Patient Temp 48 mmHg (35-46) 32 mmHg (35-46) Arterial Blood pO2 at Patient Temp 162 mmHg (65-108) 78 mmHg (65-108) Arterial Blood HCO3 23 mmol/L (21-28) 21 mmol/L (21-28) Arterial Blood Base Excess -4 mmol/L (-3-3) -3 mmol/L (-3-3) Oxyhemoglobin 97.9 % Methemoglobin 0.4 % (0.0-1.9) Carbon Monoxide, Quantitative 0.2 % (0.0-1.9) FiO2 70 40 Glucose (Fingerstick) 189 mg/dL (70-99) 167 mg/dL (70-99) Test 08/13/16 21:02 08/13/16 21:24 08/13/16 22:05 08/13/16 23:00 Glucose (Fingerstick) 157 mg/dL (70-99) 147 mg/dL (70-99) O2 Saturation 96 % (92-99) Arterial Blood pH 7.38 (7.35-7.45) Arterial Blood pCO2 at Patient Temp 40 mmHg (35-46) Arterial Blood pO2 at Patient Temp 86 mmHg (65-108) Arterial Blood HCO3 23 mmol/L (21-28) Arterial Blood Base Excess -2 mmol/L (-3-3) FiO2 40 White Blood Count 16.0 x10^3/uL (4.0-11.0) Red Blood Count 3.71 x10^6/uL (4.30-5.70) Hemoglobin 11.0 g/dL (13.0-17.5) Hematocrit 33.1 % (39.0-53.0) Mean Corpuscular Volume 89 fL (79-100) Mean Corpuscular Hemoglobin 30 pg (25-35) Mean Corpuscular Hemoglobin Concent 33 g/dL (31-37) Red Cell Distribution Width 13.3 % (11.5-14.5) Platelet Count 232 x10^3/uL (140-400) Neutrophils (%) (Auto) 87 % (31-73) Lymphocytes (%) (Auto) 5 % (24-48) Monocytes (%) (Auto) 8 % (0-9) Eosinophils (%) (Auto) 0 % (0-3) Basophils (%) (Auto) 0 % (0-3) Neutrophils # (Auto) 13.9 x10^3uL (1.8-7.7) Lymphocytes # (Auto) 0.7 x10^3/uL (1.0-4.8) Monocytes # (Auto) 1.2 x10^3/uL (0.0-1.1) Eosinophils # (Auto) 0.0 x10^3/uL (0.0-0.7) Basophils # (Auto) 0.0 x10^3/uL (0.0-0.2) Segmented Neutrophils % 82 % (35-66) Band Neutrophils % 5 % (0-9) Lymphocytes % 6 % (24-48) Monocytes % 7 % (0-10) Platelet Estimate Adequate (ADEQUATE) Sodium Level 143 mmol/L (136-145) Potassium Level 4.2 mmol/L (3.5-5.1) Chloride Level 109 mmol/L (98-107) Carbon Dioxide Level 25 mmol/L (21-32) Anion Gap 9 (6-14) Blood Urea Nitrogen 9 mg/dL (8-26) Creatinine 0.6 mg/dL (0.7-1.3) Estimated GFR (Cockcroft-Gault) 137.4 Glucose Level 168 mg/dL (70-99) Calcium Level 9.0 mg/dL (8.5-10.1) Magnesium Level 2.3 mg/dL (1.8-2.4) Test 08/13/16 23:08 08/14/16 00:08 08/14/16 01:09 08/14/16 02:13 Glucose (Fingerstick) 161 mg/dL (70-99) 148 mg/dL (70-99) 131 mg/dL (70-99) 133 mg/dL (70-99) Test 08/14/16 03:10 08/14/16 04:15 08/14/16 06:00 08/14/16 06:10 Glucose (Fingerstick) 130 mg/dL (70-99) 138 mg/dL (70-99) 120 mg/dL (70-99) White Blood Count 14.5 x10^3/uL (4.0-11.0) Red Blood Count 3.62 x10^6/uL (4.30-5.70) Hemoglobin 10.8 g/dL (13.0-17.5) Hematocrit 31.6 % (39.0-53.0) Mean Corpuscular Volume 87 fL (79-100) Mean Corpuscular Hemoglobin 30 pg (25-35) Mean Corpuscular Hemoglobin Concent 34 g/dL (31-37) Red Cell Distribution Width 13.7 % (11.5-14.5) Platelet Count 233 x10^3/uL (140-400) Sodium Level 140 mmol/L (136-145) Potassium Level 4.2 mmol/L (3.5-5.1) Chloride Level 106 mmol/L (98-107) Carbon Dioxide Level 26 mmol/L (21-32) Anion Gap 8 (6-14) Blood Urea Nitrogen 8 mg/dL (8-26) Creatinine 0.6 mg/dL (0.7-1.3) Estimated GFR (Cockcroft-Gault) 137.4 Glucose Level 132 mg/dL (70-99) Calcium Level 8.9 mg/dL (8.5-10.1) Magnesium Level 2.1 mg/dL (1.8-2.4) Creatine Kinase 538 U/L (39-308) Test 08/14/16 07:31 08/14/16 08:42 08/14/16 09:46 Glucose (Fingerstick) 136 mg/dL (70-99) 136 mg/dL (70-99) 130 mg/dL (70-99) Physical Exam HEENT: Neck Supple W Full Motion Chest: Symmetric LUNGS: Other (basilar crackle, chest tubes in place with serosanguinous drain. Brewster in place. ) Heart: S1S2, RRR (SR) Abdomen: Soft N/T Extremities: No Calf Tenderness, Other (LLE extremity graft site covered with dressing/SUKI bandage) Neurology: alert, oriented, follow commands Assessment Assessment 1. Recurrent inferior STEMI Occurred again 08/13 noted via [facility] with stent thrombosis to RCA with PTCA With above prompting emergent CABG (x2), tolerated procedure well and extubated 2. HTN: controlled 3. HLD: statin 4. DM2: currently on insulin drip 5. Tobaccoism 6. Prior hx of VT storm Recommendations 1. Continue treatment per CTS recommendation 2. Secondary prevention. Supportive care 3. Continue to encourage lifestyle modifications and cardiac rehab LIANG CASTELAN APRN Aug 14, 2016 11:16
[2016-08-14] MEDS: INSULIN DETEMIR 300 UNITS/3 ML INSULN.PEN. SQ SCH (21:00)
[2016-08-14] MEDS: ATORVASTATIN CALCIUM 40 MG TABLET. PO SCH (21:24)
[2016-08-14] MEDS: INSULIN REGULAR VIAL 150 UNIT in 0.9 % SODIUM CHLORIDE 150ML 150 ML IV PRN (21:35)
[2016-08-15] VITALS (15 sets, daily range): BP systolic 113–147; BP diastolic 61–83
[2016-08-15] MEDS: oxyCODONE/APAP 5/325 1 TAB TABLET PO PRN ×4 (00:16→16:16)
[2016-08-15] MEDS: MORPHINE SULFATE 2 MG/ML DISP.SYRIN. IV PRN (02:39)
--- NOTE | 2016-08-15 07:32 | RAD ---
Indication: Postop CABG. Time of exam 0619 hours. Correlation is made with prior study 1 day earlier. The heart is enlarged but stable. There are changes of median sternotomy. Emery-Eloisa catheter has been removed. The left chest tube remains in place. There is some residual subsegmental atelectasis in the left base. No pneumothorax is seen. Impression: Satisfactory post CABG chest.
[2016-08-15] MEDS: ASPIRIN ENTERIC COATED 325 MG TABLET.DR. PO SCH (07:44)
[2016-08-15] MEDS: SENNOSIDES/DOCUSATE 8.6/50MG TABLET. PO SCH ×2 (07:44→21:11)
[2016-08-15] MEDS: FAMOTIDINE 20 MG/2 ML VIAL IVP SCH (07:45)
[2016-08-15] MEDS: AMIODARONE HCL 200 MG TABLET. PO SCH ×3 (07:45→21:11)
[2016-08-15] MEDS: INSULIN ASPART 300 UNITS/3 ML INSULN.PEN SQ SCH ×5 (08:00→18:01)
--- NOTE | 2016-08-15 08:56 | PDOC ---
PROGRESS NOTES Subjective Subjective feels better; "tired" Objective Objective Vital Signs Date Time Temp Pulse Resp B/P (MAP) Pulse Ox O2 Delivery O2 Flow Rate FiO2 08/15/16 07:45 84 147/81 08/15/16 07:44 24 95 Nasal Cannula 2.0 08/15/16 04:00 98.9 98.9 Intake and Output 08/15/16 07:00 Intake Total 2463.6 ml Output Total 1225 ml Balance 1238.6 ml Intake Oral 1965 ml IV Total 308.6 ml Other 190 ml Output Urine Total 1100 ml Chest Tube Drainage Total 125 ml Physical Exam Abdomen: Soft, No tenderness Heart: Normal S1, Normal S2, Other Extremities: Normal pulses General: Alert, Oriented X3, Cooperative HEENT: Atraumatic Lungs: Other (posterior basilar crackles) MUSCULOSKELETAL: No deformity Neck: Supple Neuro: Normal speech Psych/Mental Status: Mental status NL, Mood NL Skin: Other (chest incision without erythema, edema, drainage; SUKI wrap on LLE) Assessment Assessment Problems Medical Problems: (1) STEMI (ST elevation myocardial infarction) Status: Acute 1. s/p emergent CABG with SVG to RCA; POD#2 chest wound C/D/I Plan Plan of Care 1. d/c left pleural tube - CXR pending 2. d/c pacing wires 3. wean off dopamine 4. d/c wolff catheter after dopamine weaned off 5. start beta-blockers after off dopamine 6. start amio for afib prophylaxis 7. transfer to [facility] Comment Review of Relevant I have reviewed the following items rachel (where applicable) has been applied. Labs Laboratory Tests Test 08/13/16 11:08 08/13/16 11:55 08/13/16 13:53 08/13/16 13:55 Glucose (Fingerstick) 199 mg/dL (70-99) Troponin I Quantitative 0.331 ng/mL (0.000-0.055) Bedside Hemoglobin (Calculated) 11.2 g/dL (14-18) Bedside Hematocrit 33 % (37-52) Bedside Arterial pH 7.35 (7.35-7.45) Bedside Arterial pCO2 49 mmHg (35-45) Bedside Arterial pO2 426 mmHg (75-100) Bedside Arterial HCO3 27 mmol/L (21-28) Bedside Arterial Total CO2 28 mmol/L (21-32) Arterial Bld O2 Saturation (Measur) 100 % (95-99) Bedside Arterial Blood Base Excess 1 mmol/L (0-3) Bedside FiO2 100.0 Bedside Sodium 141 mmol/L (135-145) Bedside Potassium 3.6 mmol/L (3.5-5.0) Glucose Level 151 mg/dL (70-99) Bedside Ionized Calcium (Jensen) 1.13 mmol/L (1.13-1.32) Activated Clotting Time 143 SEC (90-125) Test 08/13/16 14:15 08/13/16 14:21 08/13/16 14:40 08/13/16 14:42 Activated Clotting Time 144 SEC (90-125) 433 SEC (90-125) 409 SEC (90-125) Bedside Hemoglobin (Calculated) 9.2 g/dL (14-18) Bedside Hematocrit 27 % (37-52) Bedside Arterial pH 7.37 (7.35-7.45) Bedside Arterial pCO2 43 mmHg (35-45) Bedside Arterial pO2 350 mmHg (75-100) Bedside Arterial HCO3 25 mmol/L (21-28) Bedside Arterial Total CO2 26 mmol/L (21-32) Arterial Bld O2 Saturation (Measur) 100 % (95-99) Bedside Arterial Blood Base Excess -1 mmol/L (0-3) Bedside FiO2 80.0 Bedside Sodium 137 mmol/L (135-145) Bedside Potassium 4.4 mmol/L (3.5-5.0) Glucose Level 159 mg/dL (70-99) Bedside Ionized Calcium (Jensen) 1.10 mmol/L (1.13-1.32) Test 08/13/16 15:24 08/13/16 15:27 08/13/16 15:34 08/13/16 16:09 Bedside Hemoglobin (Calculated) 9.2 g/dL (14-18) 10.5 g/dL (14-18) Bedside Hematocrit 27 % (37-52) 31 % (37-52) Bedside Arterial pH 7.33 (7.35-7.45) 7.36 (7.35-7.45) Bedside Arterial pCO2 46 mmHg (35-45) 39 mmHg (35-45) Bedside Arterial pO2 200 mmHg (75-100) 66 mmHg (75-100) Bedside Arterial HCO3 24 mmol/L (21-28) 22 mmol/L (21-28) Bedside Arterial Total CO2 25 mmol/L (21-32) 23 mmol/L (21-32) Arterial Bld O2 Saturation (Measur) 100 % (95-99) 92 % (95-99) Bedside Arterial Blood Base Excess -2 mmol/L (0-3) -3 mmol/L (0-3) Bedside FiO2 100.0 100.0 Bedside Sodium 139 mmol/L (135-145) 140 mmol/L (135-145) Bedside Potassium 3.9 mmol/L (3.5-5.0) 3.9 mmol/L (3.5-5.0) Glucose Level 176 mg/dL (70-99) 177 mg/dL (70-99) Bedside Ionized Calcium (Jensen) 1.84 mmol/L (1.13-1.32) 1.53 mmol/L (1.13-1.32) Activated Clotting Time 117 SEC (90-125) White Blood Count 16.2 x10^3/uL (4.0-11.0) Hemoglobin 9.3 g/dL (13.0-17.5) Hematocrit 28.2 % (39.0-53.0) Platelet Count 166 x10^3/uL (140-400) Prothrombin Time 17.7 SEC (11.7-14.0) Prothromb Time International Ratio 1.6 (0.8-1.1) Activated Partial Thromboplast Time 26 SEC (24-38) Fibrinogen 337 mg/dL (200-440) Test 08/13/16 17:40 08/13/16 17:42 08/13/16 17:44 08/13/16 19:00 White Blood Count 17.7 x10^3/uL (4.0-11.0) Red Blood Count 4.05 x10^6/uL (4.30-5.70) Hemoglobin 11.9 g/dL (13.0-17.5) Hematocrit 36.4 % (39.0-53.0) Mean Corpuscular Volume 90 fL (79-100) Mean Corpuscular Hemoglobin 29 pg (25-35) Mean Corpuscular Hemoglobin Concent 33 g/dL (31-37) Red Cell Distribution Width 13.9 % (11.5-14.5) Platelet Count 234 x10^3/uL (140-400) Sodium Level 143 mmol/L (136-145) Potassium Level 3.9 mmol/L (3.5-5.1) Chloride Level 110 mmol/L (98-107) Carbon Dioxide Level 23 mmol/L (21-32) Anion Gap 10 (6-14) Blood Urea Nitrogen 8 mg/dL (8-26) Creatinine 0.5 mg/dL (0.7-1.3) Estimated GFR (Cockcroft-Gault) 169.6 Glucose Level 185 mg/dL (70-99) Calcium Level 8.9 mg/dL (8.5-10.1) Magnesium Level 2.2 mg/dL (1.8-2.4) Glucose (Fingerstick) 182 mg/dL (70-99) 189 mg/dL (70-99) O2 Saturation 99 % (92-99) Arterial Blood pH 7.30 (7.35-7.45) Arterial Blood pCO2 at Patient Temp 48 mmHg (35-46) Arterial Blood pO2 at Patient Temp 162 mmHg (65-108) Arterial Blood HCO3 23 mmol/L (21-28) Arterial Blood Base Excess -4 mmol/L (-3-3) Oxyhemoglobin 97.9 % Methemoglobin 0.4 % (0.0-1.9) Carbon Monoxide, Quantitative 0.2 % (0.0-1.9) FiO2 70 Test 08/13/16 20:03 08/13/16 20:49 08/13/16 21:02 08/13/16 21:24 Glucose (Fingerstick) 167 mg/dL (70-99) 157 mg/dL (70-99) O2 Saturation 95 % (92-99) 96 % (92-99) Arterial Blood pH 7.43 (7.35-7.45) 7.38 (7.35-7.45) Arterial Blood pCO2 at Patient Temp 32 mmHg (35-46) 40 mmHg (35-46) Arterial Blood pO2 at Patient Temp 78 mmHg (65-108) 86 mmHg (65-108) Arterial Blood HCO3 21 mmol/L (21-28) 23 mmol/L (21-28) Arterial Blood Base Excess -3 mmol/L (-3-3) -2 mmol/L (-3-3) FiO2 40 40 Test 08/13/16 22:05 08/13/16 23:00 08/13/16 23:08 08/14/16 00:08 Glucose (Fingerstick) 147 mg/dL (70-99) 161 mg/dL (70-99) 148 mg/dL (70-99) White Blood Count 16.0 x10^3/uL (4.0-11.0) Red Blood Count 3.71 x10^6/uL (4.30-5.70) Hemoglobin 11.0 g/dL (13.0-17.5) Hematocrit 33.1 % (39.0-53.0) Mean Corpuscular Volume 89 fL (79-100) Mean Corpuscular Hemoglobin 30 pg (25-35) Mean Corpuscular Hemoglobin Concent 33 g/dL (31-37) Red Cell Distribution Width 13.3 % (11.5-14.5) Platelet Count 232 x10^3/uL (140-400) Neutrophils (%) (Auto) 87 % (31-73) Lymphocytes (%) (Auto) 5 % (24-48) Monocytes (%) (Auto) 8 % (0-9) Eosinophils (%) (Auto) 0 % (0-3) Basophils (%) (Auto) 0 % (0-3) Neutrophils # (Auto) 13.9 x10^3uL (1.8-7.7) Lymphocytes # (Auto) 0.7 x10^3/uL (1.0-4.8) Monocytes # (Auto) 1.2 x10^3/uL (0.0-1.1) Eosinophils # (Auto) 0.0 x10^3/uL (0.0-0.7) Basophils # (Auto) 0.0 x10^3/uL (0.0-0.2) Segmented Neutrophils % 82 % (35-66) Band Neutrophils % 5 % (0-9) Lymphocytes % 6 % (24-48) Monocytes % 7 % (0-10) Platelet Estimate Adequate (ADEQUATE) Sodium Level 143 mmol/L (136-145) Potassium Level 4.2 mmol/L (3.5-5.1) Chloride Level 109 mmol/L (98-107) Carbon Dioxide Level 25 mmol/L (21-32) Anion Gap 9 (6-14) Blood Urea Nitrogen 9 mg/dL (8-26) Creatinine 0.6 mg/dL (0.7-1.3) Estimated GFR (Cockcroft-Gault) 137.4 Glucose Level 168 mg/dL (70-99) Calcium Level 9.0 mg/dL (8.5-10.1) Magnesium Level 2.3 mg/dL (1.8-2.4) Test 08/14/16 01:09 08/14/16 02:13 08/14/16 03:10 08/14/16 04:15 Glucose (Fingerstick) 131 mg/dL (70-99) 133 mg/dL (70-99) 130 mg/dL (70-99) 138 mg/dL (70-99) Test 08/14/16 06:00 08/14/16 06:10 08/14/16 07:31 08/14/16 08:42 White Blood Count 14.5 x10^3/uL (4.0-11.0) Red Blood Count 3.62 x10^6/uL (4.30-5.70) Hemoglobin 10.8 g/dL (13.0-17.5) Hematocrit 31.6 % (39.0-53.0) Mean Corpuscular Volume 87 fL (79-100) Mean Corpuscular Hemoglobin 30 pg (25-35) Mean Corpuscular Hemoglobin Concent 34 g/dL (31-37) Red Cell Distribution Width 13.7 % (11.5-14.5) Platelet Count 233 x10^3/uL (140-400) Sodium Level 140 mmol/L (136-145) Potassium Level 4.2 mmol/L (3.5-5.1) Chloride Level 106 mmol/L (98-107) Carbon Dioxide Level 26 mmol/L (21-32) Anion Gap 8 (6-14) Blood Urea Nitrogen 8 mg/dL (8-26) Creatinine 0.6 mg/dL (0.7-1.3) Estimated GFR (Cockcroft-Gault) 137.4 Glucose Level 132 mg/dL (70-99) Calcium Level 8.9 mg/dL (8.5-10.1) Magnesium Level 2.1 mg/dL (1.8-2.4) Creatine Kinase 538 U/L (39-308) Glucose (Fingerstick) 120 mg/dL (70-99) 136 mg/dL (70-99) 136 mg/dL (70-99) Test 08/14/16 09:46 08/14/16 10:58 08/14/16 12:13 08/14/16 13:48 Glucose (Fingerstick) 130 mg/dL (70-99) 170 mg/dL (70-99) 177 mg/dL (70-99) 168 mg/dL (70-99) Test 08/14/16 15:04 08/14/16 16:20 08/14/16 17:54 08/14/16 19:07 Glucose (Fingerstick) 109 mg/dL (70-99) 161 mg/dL (70-99) 116 mg/dL (70-99) 123 mg/dL (70-99) Test 08/14/16 20:21 08/14/16 21:33 08/14/16 22:52 08/15/16 00:17 Glucose (Fingerstick) 135 mg/dL (70-99) 188 mg/dL (70-99) 174 mg/dL (70-99) 136 mg/dL (70-99) Test 08/15/16 01:26 08/15/16 02:36 08/15/16 03:43 08/15/16 05:01 Glucose (Fingerstick) 98 mg/dL (70-99) 89 mg/dL (70-99) 129 mg/dL (70-99) 71 mg/dL (70-99) Test 08/15/16 06:09 08/15/16 07:54 Glucose (Fingerstick) 199 mg/dL (70-99) 141 mg/dL (70-99) Laboratory Tests Test 08/14/16 09:46 08/14/16 10:58 08/14/16 12:13 08/14/16 13:48 Glucose (Fingerstick) 130 mg/dL (70-99) 170 mg/dL (70-99) 177 mg/dL (70-99) 168 mg/dL (70-99) Test 08/14/16 15:04 08/14/16 16:20 08/14/16 17:54 08/14/16 19:07 Glucose (Fingerstick) 109 mg/dL (70-99) 161 mg/dL (70-99) 116 mg/dL (70-99) 123 mg/dL (70-99) Test 08/14/16 20:21 08/14/16 21:33 08/14/16 22:52 08/15/16 00:17 Glucose (Fingerstick) 135 mg/dL (70-99) 188 mg/dL (70-99) 174 mg/dL (70-99) 136 mg/dL (70-99) Test 08/15/16 01:26 08/15/16 02:36 08/15/16 03:43 08/15/16 05:01 Glucose (Fingerstick) 98 mg/dL (70-99) 89 mg/dL (70-99) 129 mg/dL (70-99) 71 mg/dL (70-99) Test 08/15/16 06:09 08/15/16 07:54 Glucose (Fingerstick) 199 mg/dL (70-99) 141 mg/dL (70-99) Medications Current Medications Amiodarone HCl 900 mg/Dextrose 518 ml @ 0 mls/hr 1X ONCE IV ; Start 08/09/16 at 10:30; Stop 08/09/16 at 10:31; Status DC Heparin Sodium (Porcine) (Heparin Sodium) 4,000 unit 1X ONCE IV Last administered on 08/09/16t 10:14; Start 08/09/16 at 10:30; Stop 08/09/16 at 10:31 ; Status DC Heparin Sodium/ Dextrose 500 ml @ 0 mls/hr 1X ONCE IV Last administered on t 12:45; Start 08/09/16 at 10:30; Stop 08/09/16 at 10:31; Status DC Sodium Chloride 1,000 ml @ 100 mls/hr Q10H IV ; Start 08/09/16 at 10:17; Stop 08/09/16 at 20:16; Status DC Fentanyl Citrate (Fentanyl 2ml Vial) 100 mcg STK-MED ONCE .ROUTE ; Start at 11:01; Stop 08/09/16 at 11:02; Status DC Midazolam HCl (Versed) 2 mg STK-MED ONCE .ROUTE ; Start 08/09/16 at 11:01; Stop 08/09/16 at 11:02; Status DC Heparin Sodium/ Sodium Chloride 1,000 ml @ As Directed STK-MED ONCE .ROUTE ; Start 08/09/16 at 11:02; Stop 08/09/16 at 11:03; Status DC Iodixanol (Visipaque 320) 100 ml STK-MED ONCE .ROUTE ; Start 08/09/16 at 11:02; Stop 08/09/16 at 11:03; Status DC Lidocaine HCl 20 ml STK-MED ONCE .ROUTE ; Start 08/09/16 at 11:02; Stop at 11:03; Status DC Heparin Sodium (Porcine) (Heparin Sodium) 10,000 unit STK-MED ONCE .ROUTE ; Start 08/09/16 at 11:06; Stop 08/09/16 at 11:07; Status DC Heparin Sodium/ Sodium Chloride 1,000 unit 1X ONCE IART Last administered on 12:04; Start 08/09/16 at 11:30; Stop 08/10/16 at 07:43; Status DC Midazolam HCl (Versed) 2 mg 1X ONCE IV Last administered on 08/09/16 11:30; Start 08/09/16 at 11:30; Stop 08/09/16 at 11:31; Status DC Fentanyl Citrate (Fentanyl 2ml Vial) 100 mcg 1X ONCE IV Last administered on 12:06; Start 08/09/16 at 11:30; Stop 08/09/16 at 11:31; Status DC Iodixanol (Visipaque 320) 100 ml 1X ONCE IART Last administered on 08/09/16 12:04; Start 08/09/16 at 11:30; Stop 08/09/16 at 11:31; Status DC Lidocaine HCl 20 ml 1X ONCE IJ Last administered on 08/09/16 12:04; Start at 11:30; Stop 08/09/16 at 11:31; Status DC Heparin Sodium (Porcine) (Heparin Sodium) 2,000 unit 1X ONCE IV Last administered on 08/09/16 12:08; Start 08/09/16 at 11:30; Stop 08/09/16 at 11:31 ; Status DC Tirofiban/Sodium Chloride 250 ml @ As Directed STK-MED ONCE IV ; Start at 11:21; Stop 08/09/16 at 11:22; Status DC Info (Do NOT chart on this entry -- for MONITORING) 1 each PRN DAILY PRN MC SEE COMMENTS; Start 08/09/16 at 11:30; Stop 08/11/16 at 11:29; Status DC Tirofiban/Sodium Chloride 100 ml @ 0 mls/hr 1X ONCE IV Last administered on 11:30; Start 08/09/16 at 11:30; Stop 08/09/16 at 11:31; Status DC Tirofiban/Sodium Chloride 250 ml @ 0 mls/hr CONT PRN IV PER PROTOCOL Last administered on 08/09/16 22:05; Start 08/09/16 at 11:30; Stop 08/10/16 at 05:29 ; Status DC Heparin Sodium/ Dextrose 500 ml @ 20 mls/hr CONT PRN IV SEE I/O RECORD Last administered on 08/13/16 08:15; Start 08/09/16 at 18:30; Stop 08/14/16 at 04:00 ; Status DC Heparin Sodium (Porcine) (Heparin Sodium) 2,300 unit PRN Q6HRS PRN IV FOR UFH LEVEL LESS THAN 0.2 Last administered on 08/09/16 18:37; Start 08/09/16 at 18: 30; Stop 08/14/16 at 08:56; Status DC Insulin Aspart (NovoLOG) 0-5 UNITS TIDWMEALS SQ Last administered on 08/10/16 07:34; Start 08/10/16 at 08:00; Stop 08/10/16 at 08:27; Status DC Dextrose (Dextrose 50%-Water Syringe) 12.5 gm PRN Q15MIN PRN IV SEE COMMENTS; Start 08/09/16 at 18:45; Stop 08/10/16 at 08:41; Status DC Ondansetron HCl (Zofran) 4 mg PRN Q6HRS PRN IV NAUSEA/VOMITING; Start 08/10/16 at 08:30; Stop 08/13/16 at 16:22; Status DC Acetaminophen (Tylenol) 650 mg PRN Q6HRS PRN PO pain; Start 08/10/16 at 08:30; Stop 08/13/16 at 16:19; Status DC Insulin Aspart (NovoLOG) 0-9 UNITS TIDWMEALS SQ Last administered on 08/12/16 17:36; Start 08/10/16 at 12:00 Dextrose (Dextrose 50%-Water Syringe) 12.5 gm PRN Q15MIN PRN IV SEE COMMENTS; Start 08/10/16 at 08:30; Stop 08/14/16 at 08:49; Status DC Amiodarone HCl (Cordarone) 200 mg DAILY PO Last administered on 08/15/16 07:45 ; Start 08/10/16 at 09:00 Aspirin (Children'S Aspirin) 81 mg DAILY PO Last administered on 08/10/16 10: 25; Start 08/10/16 at 09:00; Stop 08/10/16 at 17:45; Status DC Atorvastatin Calcium (Lipitor) 40 mg QHS PO Last administered on 08/14/16 21: 24; Start 08/10/16 at 21:00 Insulin Aspart (NovoLOG) 12 units TIDAC SQ Last administered on 08/10/16 11:43 ; Start 08/10/16 at 11:30; Stop 08/11/16 at 10:54; Status DC Metformin HCl (Glucophage) 1,000 mg BIDWMEALS PO Last administered on 10:26; Start 08/10/16 at 08:30; Stop 08/10/16 at 10:49; Status DC Metoprolol Tartrate (Lopressor) 50 mg BID PO Last administered on 08/13/16 08: 11; Start 08/10/16 at 09:00; Stop 08/13/16 at 16:22; Status DC Lisinopril (Prinivil) 20 mg DAILY PO Last administered on 08/10/16 10:25; Start 08/10/16 at 09:00; Stop 08/10/16 at 17:45; Status DC Insulin Detemir (Levemir) 32 units QHS SQ Last administered on 08/10/16 21:28 ; Start 08/10/16 at 21:00; Stop 08/11/16 at 10:54; Status DC Ticagrelor (Brilinta) 90 mg BID PO ; Start 08/10/16 at 09:00; Status Cancel Tirofiban/Sodium Chloride 250 ml @ 0 mls/hr CONT PRN IV PER PROTOCOL Last administered on 08/13/16 02:23; Start 08/10/16 at 09:15; Stop 08/13/16 at 10:15 ; Status DC Metoprolol Tartrate (Lopressor) 25 mg 1X ONCE PO ; Start 08/14/16 at 06:00; Stop 08/14/16 at 06:01; Status Cancel Cefazolin Sodium/ Dextrose 50 ml @ 100 mls/hr 1X ONCE IV ; Start 08/14/16 at 06:00; Stop 08/14/16 at 06:29; Status Cancel Insulin Aspart (NovoLOG) 15 units TIDAC SQ ; Start 08/11/16 at 11:30; Stop 08/11 at 11:39; Status DC Insulin Detemir (Levemir) 38 units QHS SQ ; Start 08/11/16 at 21:00; Stop at 21:00; Status DC Insulin Aspart (NovoLOG) 12 units TIDAC SQ Last administered on 08/12/16 09:01 ; Start 08/11/16 at 12:00; Stop 08/12/16 at 09:51; Status DC Insulin Detemir (Levemir) 32 units QHS SQ ; Start 08/11/16 at 21:00; Stop at 09:51; Status DC Ondansetron HCl (Zofran) 4 mg PRN Q6HRS PRN IV NAUSEA/VOMITING; Start 08/14/16 at 07:00; Stop 08/15/16 at 06:59; Status DC Fentanyl Citrate (Fentanyl 2ml Vial) 25 mcg PRN Q5MIN PRN IV MILD PAIN; Start 08/14/16 at 07:00; Stop 08/15/16 at 06:59; Status DC Fentanyl Citrate (Fentanyl 2ml Vial) 50 mcg PRN Q5MIN PRN IV MODERATE PAIN; Start 08/14/16 at 07:00; Stop 08/15/16 at 06:59; Status DC Morphine Sulfate 1 mg PRN Q10MIN PRN IV SEVERE PAIN Last administered on t 17:47; Start 08/14/16 at 07:00; Stop 08/14/16 at 07:00; Status DC Ringer's Solution 1,000 ml @ 30 mls/hr Q24H IV ; Start 08/14/16 at 07:00; Stop 08/14/16 at 18:59; Status DC Lidocaine HCl 2 ml PRN 1X PRN ID PRIOR TO IV START; Start 08/14/16 at 07:00; Stop 08/15/16 at 06:59; Status DC Hydromorphone HCl (Dilaudid) 0.5 mg PRN Q10MIN PRN IV SEV PAIN, Second choice; Start 08/14/16 at 07:00; Stop 08/15/16 at 06:59; Status DC Prochlorperazine Edisylate (Compazine) 5 mg PACU PRN PRN IV NAUSEA, MRX1; Start 08/14/16 at 07:00; Stop 08/15/16 at 06:59; Status DC Insulin Aspart (NovoLOG) 20 units 1X ONCE SQ Last administered on 08/11/16 17 :41; Start 08/11/16 at 17:30; Stop 08/11/16 at 17:31; Status DC Insulin Aspart (NovoLOG) 15 units TIDAC SQ Last administered on 08/13/16 08:16 ; Start 08/12/16 at 11:30 Insulin Detemir (Levemir) 38 units QHS SQ Last administered on 08/12/16 20:52 ; Start 08/12/16 at 21:00 Aspirin (Ecotrin) 81 mg DAILYWBKFT PO Last administered on 08/13/16 08:11; Start 08/13/16 at 08:00; Stop 08/13/16 at 16:20; Status DC Heparin Sodium (Porcine) 48487 unit/Ringer's Solution 1,020 ml @ 1,020 mls/hr 1X PERIOP ONCE IRR ; Start 08/14/16 at 06:00; Stop 08/14/16 at 06:59; Status Cancel Potassium Chloride 70 meq/ Sodium Bicarbonate 12.5 meq/Lidocaine HCl 24 ml/ Parenteral Electrolytes 571.5 ml @ 571.5 mls/ hr 1X PERIOP ONCE IRR ; Start at 06:00; Stop 08/14/16 at 06:59; Status Cancel Potassium Chloride 15 meq/ Sodium Bicarbonate 12.5 meq/Parenteral Electrolytes 520 ml @ 520 mls/hr 1X PERIOP ONCE IRR ; Start 08/14/16 at 06:00; Stop at 06:59; Status Cancel Vancomycin HCl 1.5 gm/Sodium Chloride 500 ml @ 250 mls/hr 1X ONCE IV ; Start 08/14/16 at 06:00; Stop 08/14/16 at 07:59; Status UNV Zolpidem Tartrate (Ambien) 5 mg PRN QHS PRN PO INSOMNIA, MAY REPEAT IN 1HR; Start 08/13/16 at 10:30 Carvedilol (Coreg) 3.125 mg 1X ONCE PO ; Start 08/14/16 at 06:00; Stop at 07:45; Status DC Insulin Human Regular 150 unit/ Sodium Chloride 151.5 ml @ 0 mls/hr CONT PRN IV SEE I/O RECORD; Start 08/14/16 at 06:00; Status Cancel Vancomycin HCl 1.25 gm/Sodium Chloride 250 ml @ 166.667 mls/hr 1X ONCE IV ; Start 08/13/16 at 13:30; Stop 08/13/16 at 14:59; Status DC Morphine Sulfate 1 mg 1X ONCE IV Last administered on 08/13/16 11:27; Start 08/13/16 at 11:30; Stop 08/13/16 at 11:31; Status DC Heparin Sodium (Porcine) 80811 unit/Ringer's Solution 1,020 ml @ 1,020 mls/hr 1X PERIOP ONCE IRR Last administered on 08/13/16 13:56; Start 08/13/16 at 12: 00; Stop 08/13/16 at 12:59; Status DC Potassium Chloride 15 meq/ Sodium Bicarbonate 12.5 meq/Parenteral Electrolytes 520 ml @ 520 mls/hr 1X PERIOP ONCE IRR Last administered on 08/13/16 14:26; Start 08/13/16 at 12:00; Stop 08/13/16 at 12:59; Status DC Potassium Chloride 70 meq/ Sodium Bicarbonate 12.5 meq/Lidocaine HCl 24 ml/ Parenteral Electrolytes 571.5 ml @ 571.5 mls/ hr 1X PERIOP ONCE IRR Last administered on 08/13/16 14:26; Start 08/13/16 at 12:00; Stop 08/13/16 at 12:59 ; Status DC Phenylephrine HCl (Sam-Synephrine Inj) 10 mg STK-MED ONCE .ROUTE ; Start at 12:13; Stop 08/13/16 at 12:14; Status DC Ephedrine Sulfate 50 mg STK-MED ONCE IV ; Start 08/13/16 at 12:13; Stop 6/25/ 17 at 12:14; Status DC Etomidate (Amidate) 20 mg STK-MED ONCE IV ; Start 08/13/16 at 12:13; Stop at 12:14; Status DC Lidocaine HCl (Xylocaine 2% Topical 5gm Tube) 5 shamika STK-MED ONCE TP ; Start at 12:13; Stop 08/13/16 at 12:14; Status DC Rocuronium [place] (Zemuron) 100 mg STK-MED ONCE .ROUTE ; Start 08/13/16 at 12: 14; Stop 08/13/16 at 12:15; Status DC Heparin Sodium (Porcine) 30,000 unit STK-MED ONCE .ROUTE ; Start 08/13/16 at 12: 16; Stop 08/13/16 at 12:17; Status DC Aminocaproic Acid (Amicar) 5,000 mg STK-MED ONCE IV ; Start 08/13/16 at 12:16; Stop 08/13/16 at 12:17; Status DC Nitroglycerin/ Dextrose 250 ml @ As Directed STK-MED ONCE IV ; Start 08/13/16 at 12:17; Stop 08/14/16 at 07:45; Status DC Sufentanil Citrate (Sufenta) 100 mcg STK-MED ONCE .ROUTE ; Start 08/13/16 at 12: 17; Stop 08/13/16 at 12:18; Status DC Midazolam HCl (Versed) 5 mg STK-MED ONCE .ROUTE ; Start 08/13/16 at 12:17; Stop 08/13/16 at 12:18; Status DC Fentanyl Citrate (Fentanyl 5ml Vial) 250 mcg STK-MED ONCE .ROUTE ; Start at 12:17; Stop 08/13/16 at 12:18; Status DC Heparin Sodium/ Sodium Chloride 1,000 ml @ As Directed STK-MED ONCE .ROUTE ; Start 08/13/16 at 12:19; Stop 08/13/16 at 12:20; Status DC Lidocaine HCl 20 ml STK-MED ONCE .ROUTE ; Start 08/13/16 at 12:19; Stop at 12:20; Status DC Iodixanol (Visipaque 320) 100 ml STK-MED ONCE .ROUTE ; Start 08/13/16 at 12:19; Stop 08/13/16 at 12:20; Status DC Succinylcholine Chloride (Anectine) 200 mg STK-MED ONCE .ROUTE ; Start 08/13/16 at 12:26; Stop 08/13/16 at 12:27; Status DC Fentanyl Citrate (Fentanyl 2ml Vial) 100 mcg STK-MED ONCE .ROUTE ; Start at 12:26; Stop 08/13/16 at 12:27; Status DC Midazolam HCl (Versed) 2 mg STK-MED ONCE .ROUTE ; Start 08/13/16 at 12:26; Stop 08/13/16 at 12:27; Status DC Phenylephrine HCl 1 mg STK-MED ONCE IV ; Start 08/13/16 at 12:26; Stop 08/13/16 at 12:27; Status DC Cellulose 1 each STK-MED ONCE .ROUTE Last administered on 08/13/16 13:56; Start 08/13/16 at 12:26; Stop 08/13/16 at 12:27; Status DC Cefazolin Sodium/ Dextrose 50 ml @ As Directed STK-MED ONCE IV ; Start 08/13/16 at 12:27; Stop 08/13/16 at 12:28; Status DC Protamine Sulfate 50 mg STK-MED ONCE IV ; Start 08/13/16 at 12:27; Stop at 12:28; Status DC Aspirin (Aspirin) 300 mg STK-MED ONCE .ROUTE Last administered on 08/13/16 16: 18; Start 08/13/16 at 12:27; Stop 08/13/16 at 12:28; Status DC Mineral Oil (Muri-Lube) 10 ml STK-MED ONCE MC Last administered on 08/13/16 15 :10; Start 08/13/16 at 12:27; Stop 08/13/16 at 12:28; Status DC Heparin Sodium (Porcine) (Heparin Sodium) 10,000 unit STK-MED ONCE .ROUTE ; Start 08/13/16 at 12:29; Stop 08/13/16 at 12:30; Status DC Atropine Sulfate 0.5 mg STK-MED ONCE .ROUTE ; Start 08/13/16 at 12:30; Stop at 12:31; Status DC Nitroglycerin (Nitroglycerin) 200 mcg 1X ONCE IART Last administered on 12:45; Start 08/13/16 at 12:45; Stop 08/13/16 at 12:46; Status DC Heparin Sodium/ Sodium Chloride 1,000 unit 1X ONCE IART Last administered on 12:45; Start 08/13/16 at 12:45; Stop 08/13/16 at 12:46; Status DC Iodixanol (Visipaque 320) 100 ml 1X ONCE IART Last administered on 08/13/16 12:45; Start 08/13/16 at 12:45; Stop 08/13/16 at 12:46; Status DC Lidocaine HCl 20 ml 1X ONCE IJ Last administered on 08/13/16 12:45; Start at 12:45; Stop 08/13/16 at 12:46; Status DC Heparin Sodium (Porcine) (Heparin Sodium) 3,000 unit 1X ONCE IV ; Start at 12:45; Stop 08/13/16 at 12:46; Status DC Heparin Sodium/ Sodium Chloride 500 ml @ As Directed STK-MED ONCE .ROUTE ; Start 08/13/16 at 12:39; Stop 08/13/16 at 12:40; Status DC Nitroglycerin/ Dextrose 250 ml @ As Directed STK-MED ONCE IV ; Start 08/13/16 at 12:47; Stop 08/14/16 at 07:45; Status DC Rocuronium [place] (Zemuron) 100 mg STK-MED ONCE .ROUTE ; Start 08/13/16 at 14: 51; Stop 08/13/16 at 14:52; Status DC Protamine Sulfate 250 mg STK-MED ONCE IV ; Start 08/13/16 at 14:52; Stop at 14:53; Status DC Protamine Sulfate 50 mg STK-MED ONCE IV ; Start 08/13/16 at 15:05; Stop at 15:06; Status DC Epinephrine HCl (EPINEPHrine SYRINGE) 1 mg STK-MED ONCE .ROUTE ; Start 08/13/16 at 15:09; Stop 08/13/16 at 15:10; Status DC Midazolam HCl (Versed) 2 mg STK-MED ONCE .ROUTE ; Start 08/13/16 at 15:33; Stop 08/13/16 at 15:34; Status DC Lidocaine HCl (Lidocaine Pf 2% Vial) 5 ml STK-MED ONCE .ROUTE ; Start 08/13/16 at 15:38; Stop 08/13/16 at 15:39; Status DC Aminocaproic Acid (Amicar) 5,000 mg STK-MED ONCE IV ; Start 08/13/16 at 15:38; Stop 08/13/16 at 15:39; Status DC Mannitol (Mannitol) 12.5 g STK-MED ONCE .ROUTE ; Start 08/13/16 at 15:38; Stop 08/13/16 at 15:39; Status DC Calcium Chloride 1,000 mg STK-MED ONCE IV ; Start 08/13/16 at 15:38; Stop at 15:39; Status DC Albumin Human 100 ml @ As Directed STK-MED ONCE IV ; Start 08/13/16 at 15:38; Stop 08/13/16 at 15:39; Status DC Heparin Sodium (Porcine) 30,000 unit STK-MED ONCE .ROUTE ; Start 08/13/16 at 15: 39; Stop 08/13/16 at 15:40; Status DC Magnesium Sulfate 5 gm STK-MED ONCE .ROUTE ; Start 08/13/16 at 15:39; Stop 08/13 at 15:40; Status DC Desflurane (Suprane) 90 ml STK-MED ONCE IH ; Start 08/13/16 at 15:54; Stop 08/13 at 15:55; Status DC Midazolam HCl (Versed) 2 mg STK-MED ONCE .ROUTE ; Start 08/13/16 at 16:01; Stop 08/13/16 at 16:02; Status DC Rocuronium [place] (Zemuron) 50 mg STK-MED ONCE .ROUTE ; Start 08/13/16 at 16:08 ; Stop 08/13/16 at 16:09; Status DC Dextrose 1,000 ml @ 30 mls/hr Q24H IV ; Start 08/13/16 at 16:08 Albumin Human 250 ml @ 60 mls/hr PRN Q4HRS PRN IV SEE I/O RECORD Last administered on 08/13/16t 18:22; Start 08/13/16 at 17:00 Insulin Human Regular 150 unit/ Sodium Chloride 151.5 ml @ 0 mls/hr CONT PRN PRN IV SEE I/O RECORD Last administered on 08/14/16 21:35; Start 08/13/16 at 16 :15 Dextrose (Dextrose 50%-Water Syringe) 25 gm PRN Q15MIN PRN IV LOW BLOOD SUGAR; Start 08/13/16 at 16:15 Nitroglycerin/ Dextrose 250 ml @ 0 mls/hr CONT PRN PRN IV SEE I/O RECORD; Start 08/13/16 at 16:15; Stop 08/14/16 at 07:45; Status DC Dopamine HCl/ Dextrose 250 ml @ 0 mls/hr CONT PRN PRN IV SEE I/O RECORD; Start 08/13/16 at 16:15 Amiodarone HCl 900 mg/Dextrose 518 ml @ 33.33 mls/ hr CONT PRN PRN IV RUNS OF VT; Start 08/13/16 at 16:15 Amiodarone HCl 150 mg/Dextrose 103 ml @ 200 mls/hr 1X PRN PRN IV VT; Start at 16:15 Info 1 ea CONT PRN PRN MC SEE COMMENTS; Start 08/13/16 at 16:15 Info 1 ea CONT PRN PRN MC SEE COMMENTS; Start 08/13/16 at 16:15 Magnesium Sulfate/ Dextrose 100 ml @ 100 mls/hr PRN DAILY PRN IV FOR MAG < 2.2 ; Start 08/13/16 at 16:15 Famotidine (Pepcid) 20 mg BID IVP Last administered on 08/15/16 07:45; Start 08/13/16 at 21:00 Ondansetron HCl (Zofran) 4 mg PRN Q4HRS PRN IV NAUSEA/VOMITING; Start 08/13/16 at 16:15 Morphine Sulfate 2 mg PRN Q1HR PRN IV PAIN Last administered on 08/15/16 02:39 ; Start 08/13/16 at 16:15 Acetaminophen (Tylenol) 650 mg PRN Q4HRS PRN PO MILD PAIN / TEMP; Start at 16:15 Acetaminophen (Acetaminophen Supp) 650 mg PRN Q4HRS PRN SD MILD PAIN / TEMP; Start 08/13/16 at 16:15 Meperidine HCl (Demerol) 12.5 mg PRN Q15MIN PRN IV SHIVERING Last administered on 08/13/16 17:28; Start 08/13/16 at 16:15; Stop 08/14/16 at 07:45; Status DC Propofol 100 ml @ 0 mls/hr CONT PRN PRN IV POSTOP SEDATION UNTIL EXTUBATE; Start 08/13/16 at 16:15; Stop 08/14/16 at 07:45; Status DC Senna/Docusate Sodium (Senna Plus) 1 tab BID PO Last administered on 08/15/16 07:44; Start 08/14/16 at 09:00 Bisacodyl (Dulcolax Supp) 10 mg PRN DAILY PRN SD NO BOWEL MOVEMENT; Start 08/13 at 16:15 Chlorhexidine Gluconate (Peridex) 15 ml BID MM ; Start 08/13/16 at 21:00; Stop 08/14/16 at 08:43; Status DC Aspirin (Ecotrin) 325 mg DAILYWBKFT PO Last administered on 08/15/16 07:44; Start 08/14/16 at 08:00 Aspirin (Aspirin) 300 mg PRN DAILY PRN SD IF UNABLE TO TAKE PO; Start 08/13/16 at 16:15 Albuterol Sulfate (Ventolin Neb Soln) 2.5 mg PRN Q4HRS PRN NEB SHORTNESS OF BREATH; Start 08/13/16 at 16:15 Metoprolol Tartrate (Lopressor) 25 mg BID PO ; Start 08/14/16 at 09:00; Status Future hold Nicardipine HCl 50 mg/Sodium Chloride 270 ml @ 0 mls/hr CONT PRN PRN IV PER PROTOCOL; Start 08/13/16 at 16:15; Stop 08/14/16 at 07:45; Status DC Clevidipine 100 ml @ 0 mls/hr CONT PRN IV PER PROTOCOL; Start 08/13/16 at 16:15 ; Stop 08/14/16 at 07:45; Status DC Oxycodone/ Acetaminophen (Percocet 5/325) 1 tab PRN Q4HRS PRN PO MILD PAIN; Start 08/13/16 at 16:15 Oxycodone/ Acetaminophen (Percocet 5/325) 2 tab PRN Q4HRS PRN PO MODERATE PAIN , SEVERE PAIN Last administered on 08/15/16 07:44; Start 08/13/16 at 16:15 Cefazolin Sodium/ Dextrose 50 ml @ 100 mls/hr Q8H IV Last administered on 08/15 06:07; Start 08/13/16 at 22:00; Stop 08/15/16 at 06:29; Status DC Lidocaine HCl 30 ml STK-MED ONCE .ROUTE ; Start 08/13/16 at 17:10; Stop at 17:11; Status DC Morphine Sulfate 1 mg PRN Q10MIN PRN IV SEVERE PAIN Last administered on 14:01; Start 08/13/16 at 18:00 Potassium Chloride 50 ml @ 50 mls/hr 1X ONCE IV Last administered on 19:08; Start 08/13/16 at 18:15; Stop 08/13/16 at 19:14; Status DC Lidocaine HCl 30 ml STK-MED ONCE .ROUTE ; Start 08/13/16 at 17:00; Stop at 07:12; Status DC Active Scripts Active Brilinta (Ticagrelor) 90 Mg Tablet 90 Mg PO BID 30 Days Atorvastatin Calcium 40 Mg Tablet 40 Mg PO QHS 30 Days Aspirin Ec (Aspirin) 81 Mg Tablet.dr 81 Mg PO DAILYWBKFT 30 Days Amiodarone Hcl 200 Mg Tablet 200 Mg PO DAILY 30 Days Reported Metoprolol Tartrate 50 Mg Tablet 1 Tab PO BID NITROGLYCERIN SubLingual (Nitroglycerin) 0.4 Mg Tab.subl 1 Tab SL UD Novolog Flexpen (Insulin Aspart) 100 Unit/1 Ml Insuln.pen 12 Unit SQ TIDAC Metformin Hcl 1,000 Mg Tablet 1,000 Mg PO BIDWMEALS Lantus Solostar (Insulin Glargine,Hum.rec.anlog) 100 Unit/1 Ml Insuln.pen 32 Unit SQ QHS Enalapril Maleate 10 Mg Tablet 1 Tab PO DAILY Atorvastatin Calcium 40 Mg Tablet 1 Tab PO QHS Aspirin 81 Mg Tab.chew 1 Tab PO DAILY Vitals/I & O Vital Sign - Last 24 Hours 08/14/16 08/14/16 08/14/16 08/14/16 09:00 09:00 10:00 10:00 Temp 98.3 98.3 98.3 98.3 Pulse 84 84 86 86 Resp 18 20 B/P (MAP) 108/58 (75) 110/67 (81) Pulse Ox 96 96 O2 Delivery Nasal Cannula Nasal Cannula O2 Flow Rate 3.0 3.0 08/14/16 08/14/16 08/14/16 08/14/16 10:09 10:09 11:00 12:00 Pulse 90 70 B/P (MAP) 129/70 142/90 (107) Pulse Ox 97 O2 Delivery Nasal Cannula Nasal Cannula O2 Flow Rate 3.0 3.0 08/14/16 08/14/16 08/14/16 08/14/16 12:00 13:00 14:00 14:01 Temp 98.4 98.4 Pulse 68 76 84 Resp 17 B/P (MAP) 137/87 (104) 127/86 (100) 118/62 (80) Pulse Ox 97 97 O2 Delivery Nasal Cannula Nasal Cannula O2 Flow Rate 3.0 3.0 08/14/16 08/14/16 08/14/16 08/14/16 14:30 15:00 16:01 16:05 Pulse 82 80 Resp 20 18 B/P (MAP) 114/65 (81) 109/65 (80) Pulse Ox 97 97 96 O2 Delivery Nasal Cannula Nasal Cannula Nasal Cannula Nasal Cannula O2 Flow Rate 3.0 3.0 3.0 3.0 08/14/16 08/14/16 08/14/16 08/14/16 17:00 17:52 18:00 19:00 Pulse 82 82 86 Resp 26 22 20 B/P (MAP) 119/67 (84) 116/64 (81) 119/62 (81) Pulse Ox 97 96 97 98 O2 Delivery Nasal Cannula Nasal Cannula Nasal Cannula Nasal Cannula O2 Flow Rate 3.0 3.0 3.0 3.0 08/14/16 08/14/16 08/14/16 08/14/16 19:33 20:00 20:00 21:00 Temp 100.2 100.2 Pulse 85 87 Resp 22 22 18 B/P (MAP) 117/67 (84) 111/61 (78) Pulse Ox 96 96 97 O2 Delivery Room Air Nasal Cannula Nasal Cannula Nasal Cannula O2 Flow Rate 3.0 3.0 3.0 3.0 08/14/16 08/14/16 08/14/16 08/15/16 21:26 22:00 23:00 00:00 Pulse 85 85 Resp 24 18 14 B/P (MAP) 114/64 (81) 128/69 (88) Pulse Ox 96 96 95 O2 Delivery Nasal Cannula Nasal Cannula Nasal Cannula Nasal Cannula O2 Flow Rate 3.0 3.0 3.0 3.0 08/15/16 08/15/16 08/15/16 08/15/16 00:00 00:16 01:00 02:00 Temp 99.9 99.9 Pulse 84 84 81 Resp 19 23 22 19 B/P (MAP) 113/61 (78) 113/66 (82) 120/67 (84) Pulse Ox 95 94 96 96 O2 Delivery Nasal Cannula Nasal Cannula Nasal Cannula Nasal Cannula O2 Flow Rate 3.0 3.0 3.0 3.0 08/15/16 08/15/16 08/15/16 08/15/16 02:39 03:00 04:00 04:00 Temp 98.9 98.9 Pulse 81 82 Resp 20 21 20 B/P (MAP) 136/75 (95) 132/68 (89) Pulse Ox 95 97 96 O2 Delivery Nasal Cannula Nasal Cannula Nasal Cannula Nasal Cannula O2 Flow Rate 3.0 3.0 3.0 3.0 08/15/16 08/15/16 08/15/16 08/15/16 04:17 05:00 05:05 06:00 Pulse 87 85 Resp 20 21 20 17 B/P (MAP) 125/71 (89) 127/73 (91) Pulse Ox 96 96 95 96 O2 Delivery Nasal Cannula Nasal Cannula Nasal Cannula Nasal Cannula O2 Flow Rate 3.0 3.0 3.0 3.0 08/15/16 08/15/16 08/15/16 06:20 07:44 07:45 Pulse 84 Resp 22 24 B/P (MAP) 147/81 Pulse Ox 96 95 O2 Delivery Nasal Cannula Nasal Cannula O2 Flow Rate 3.0 2.0 Intake and Output 08/14/16 08/14/16 08/15/16 15:00 23:00 07:00 Intake Total 1450 ml 602 ml 411.6 ml Output Total 400 ml 350 ml 475 ml Balance 1050 ml 252 ml -63.4 ml LEANNE CROOK APRN Aug 15, 2016 08:55
[2016-08-15] MEDS ORDERED: BENZOCAINE/MENTHOL LOZENGE. PO PRN (09:00)
[2016-08-15] MEDS ORDERED: MAGNESIUM HYDROXIDE 2,400 MG/30 ML ORAL.SUSP. PO PRN (09:00)
[2016-08-15] MEDS ORDERED: NITROGLYCERIN SUBLINGUAL 0.4 MG BOTTLE OF 25. SL PRN (09:00)
[2016-08-15] MEDS ORDERED: MAG HYDROX/ALUMINUM HYD/SIMETH 30 ML ORAL.SUSP PO PRN (09:00)
[2016-08-15] MEDS: METOPROLOL TART IMMED RELEASE 25 MG TABLET. PO SCH ×2 (09:00→21:13)
--- NOTE | 2016-08-15 10:12 | PDOC ---
PROGRESS NOTES Chief Complaint Chief Complaint 1. NSTEMI s/p balloon angioplasty (08/09) 2. STEMI (in house 08/13) s/p CABG (08/13) 2. HTN 3. Dyslipidemia 4. DM 2 uncontrolled, non compliant with [id number] 5. Ex smoker 6. Mild to mod pcm History of Present Illness History of Present Illness Seen in ICU: Walking VERY quick with PT! NO SOA, no CP, no weakness. Doing very well POD # 2 LAbs secodn day post op - stable, good PLAN: [place] caty removal today UO good, VS good t/o to CVC today Vitals Vitals Vital Signs Date Time Temp Pulse Resp B/P (MAP) Pulse Ox O2 Delivery O2 Flow Rate FiO2 08/15/16 07:45 84 147/81 08/15/16 07:44 24 95 Nasal Cannula 2.0 08/15/16 04:00 98.9 98.9 Physical Exam General: Alert, Oriented X3, Cooperative Heart: Normal S1, Normal S2, Other Lungs: Clear Abdomen: Soft, No tenderness Extremities: Normal pulses Skin: Other Labs LABS Laboratory Tests Test 08/14/16 10:58 08/14/16 12:13 08/14/16 13:48 08/14/16 15:04 Glucose (Fingerstick) 170 mg/dL (70-99) 177 mg/dL (70-99) 168 mg/dL (70-99) 109 mg/dL (70-99) Test 08/14/16 16:20 08/14/16 17:54 08/14/16 19:07 08/14/16 20:21 Glucose (Fingerstick) 161 mg/dL (70-99) 116 mg/dL (70-99) 123 mg/dL (70-99) 135 mg/dL (70-99) Test 08/14/16 21:33 08/14/16 22:52 08/15/16 00:17 08/15/16 01:26 Glucose (Fingerstick) 188 mg/dL (70-99) 174 mg/dL (70-99) 136 mg/dL (70-99) 98 mg/dL (70-99) Test 08/15/16 02:36 08/15/16 03:43 08/15/16 05:01 08/15/16 06:09 Glucose (Fingerstick) 89 mg/dL (70-99) 129 mg/dL (70-99) 71 mg/dL (70-99) 199 mg/dL (70-99) Test 08/15/16 07:54 Glucose (Fingerstick) 141 mg/dL (70-99) Review of Systems Review of Systems denies 14 pt Assessment and Plan Assessmemt and Plan Problems Medical Problems: (1) STEMI (ST elevation myocardial infarction) Status: Acute Problems: Comment Review of Relevant I have reviewed the following items rachel (where applicable) has been applied. Labs Laboratory Tests Test 08/13/16 11:08 08/13/16 11:55 08/13/16 13:53 08/13/16 13:55 Glucose (Fingerstick) 199 mg/dL (70-99) Troponin I Quantitative 0.331 ng/mL (0.000-0.055) Bedside Hemoglobin (Calculated) 11.2 g/dL (14-18) Bedside Hematocrit 33 % (37-52) Bedside Arterial pH 7.35 (7.35-7.45) Bedside Arterial pCO2 49 mmHg (35-45) Bedside Arterial pO2 426 mmHg (75-100) Bedside Arterial HCO3 27 mmol/L (21-28) Bedside Arterial Total CO2 28 mmol/L (21-32) Arterial Bld O2 Saturation (Measur) 100 % (95-99) Bedside Arterial Blood Base Excess 1 mmol/L (0-3) Bedside FiO2 100.0 Bedside Sodium 141 mmol/L (135-145) Bedside Potassium 3.6 mmol/L (3.5-5.0) Glucose Level 151 mg/dL (70-99) Bedside Ionized Calcium (Jensen) 1.13 mmol/L (1.13-1.32) Activated Clotting Time 143 SEC (90-125) Test 08/13/16 14:15 08/13/16 14:21 08/13/16 14:40 08/13/16 14:42 Activated Clotting Time 144 SEC (90-125) 433 SEC (90-125) 409 SEC (90-125) Bedside Hemoglobin (Calculated) 9.2 g/dL (14-18) Bedside Hematocrit 27 % (37-52) Bedside Arterial pH 7.37 (7.35-7.45) Bedside Arterial pCO2 43 mmHg (35-45) Bedside Arterial pO2 350 mmHg (75-100) Bedside Arterial HCO3 25 mmol/L (21-28) Bedside Arterial Total CO2 26 mmol/L (21-32) Arterial Bld O2 Saturation (Measur) 100 % (95-99) Bedside Arterial Blood Base Excess -1 mmol/L (0-3) Bedside FiO2 80.0 Bedside Sodium 137 mmol/L (135-145) Bedside Potassium 4.4 mmol/L (3.5-5.0) Glucose Level 159 mg/dL (70-99) Bedside Ionized Calcium (Jensen) 1.10 mmol/L (1.13-1.32) Test 08/13/16 15:24 08/13/16 15:27 08/13/16 15:34 08/13/16 16:09 Bedside Hemoglobin (Calculated) 9.2 g/dL (14-18) 10.5 g/dL (14-18) Bedside Hematocrit 27 % (37-52) 31 % (37-52) Bedside Arterial pH 7.33 (7.35-7.45) 7.36 (7.35-7.45) Bedside Arterial pCO2 46 mmHg (35-45) 39 mmHg (35-45) Bedside Arterial pO2 200 mmHg (75-100) 66 mmHg (75-100) Bedside Arterial HCO3 24 mmol/L (21-28) 22 mmol/L (21-28) Bedside Arterial Total CO2 25 mmol/L (21-32) 23 mmol/L (21-32) Arterial Bld O2 Saturation (Measur) 100 % (95-99) 92 % (95-99) Bedside Arterial Blood Base Excess -2 mmol/L (0-3) -3 mmol/L (0-3) Bedside FiO2 100.0 100.0 Bedside Sodium 139 mmol/L (135-145) 140 mmol/L (135-145) Bedside Potassium 3.9 mmol/L (3.5-5.0) 3.9 mmol/L (3.5-5.0) Glucose Level 176 mg/dL (70-99) 177 mg/dL (70-99) Bedside Ionized Calcium (Jensen) 1.84 mmol/L (1.13-1.32) 1.53 mmol/L (1.13-1.32) Activated Clotting Time 117 SEC (90-125) White Blood Count 16.2 x10^3/uL (4.0-11.0) Hemoglobin 9.3 g/dL (13.0-17.5) Hematocrit 28.2 % (39.0-53.0) Platelet Count 166 x10^3/uL (140-400) Prothrombin Time 17.7 SEC (11.7-14.0) Prothromb Time International Ratio 1.6 (0.8-1.1) Activated Partial Thromboplast Time 26 SEC (24-38) Fibrinogen 337 mg/dL (200-440) Test 08/13/16 17:40 08/13/16 17:42 08/13/16 17:44 08/13/16 19:00 White Blood Count 17.7 x10^3/uL (4.0-11.0) Red Blood Count 4.05 x10^6/uL (4.30-5.70) Hemoglobin 11.9 g/dL (13.0-17.5) Hematocrit 36.4 % (39.0-53.0) Mean Corpuscular Volume 90 fL (79-100) Mean Corpuscular Hemoglobin 29 pg (25-35) Mean Corpuscular Hemoglobin Concent 33 g/dL (31-37) Red Cell Distribution Width 13.9 % (11.5-14.5) Platelet Count 234 x10^3/uL (140-400) Sodium Level 143 mmol/L (136-145) Potassium Level 3.9 mmol/L (3.5-5.1) Chloride Level 110 mmol/L (98-107) Carbon Dioxide Level 23 mmol/L (21-32) Anion Gap 10 (6-14) Blood Urea Nitrogen 8 mg/dL (8-26) Creatinine 0.5 mg/dL (0.7-1.3) Estimated GFR (Cockcroft-Gault) 169.6 Glucose Level 185 mg/dL (70-99) Calcium Level 8.9 mg/dL (8.5-10.1) Magnesium Level 2.2 mg/dL (1.8-2.4) Glucose (Fingerstick) 182 mg/dL (70-99) 189 mg/dL (70-99) O2 Saturation 99 % (92-99) Arterial Blood pH 7.30 (7.35-7.45) Arterial Blood pCO2 at Patient Temp 48 mmHg (35-46) Arterial Blood pO2 at Patient Temp 162 mmHg (65-108) Arterial Blood HCO3 23 mmol/L (21-28) Arterial Blood Base Excess -4 mmol/L (-3-3) Oxyhemoglobin 97.9 % Methemoglobin 0.4 % (0.0-1.9) Carbon Monoxide, Quantitative 0.2 % (0.0-1.9) FiO2 70 Test 08/13/16 20:03 08/13/16 20:49 08/13/16 21:02 08/13/16 21:24 Glucose (Fingerstick) 167 mg/dL (70-99) 157 mg/dL (70-99) O2 Saturation 95 % (92-99) 96 % (92-99) Arterial Blood pH 7.43 (7.35-7.45) 7.38 (7.35-7.45) Arterial Blood pCO2 at Patient Temp 32 mmHg (35-46) 40 mmHg (35-46) Arterial Blood pO2 at Patient Temp 78 mmHg (65-108) 86 mmHg (65-108) Arterial Blood HCO3 21 mmol/L (21-28) 23 mmol/L (21-28) Arterial Blood Base Excess -3 mmol/L (-3-3) -2 mmol/L (-3-3) FiO2 40 40 Test 08/13/16 22:05 08/13/16 23:00 08/13/16 23:08 08/14/16 00:08 Glucose (Fingerstick) 147 mg/dL (70-99) 161 mg/dL (70-99) 148 mg/dL (70-99) White Blood Count 16.0 x10^3/uL (4.0-11.0) Red Blood Count 3.71 x10^6/uL (4.30-5.70) Hemoglobin 11.0 g/dL (13.0-17.5) Hematocrit 33.1 % (39.0-53.0) Mean Corpuscular Volume 89 fL (79-100) Mean Corpuscular Hemoglobin 30 pg (25-35) Mean Corpuscular Hemoglobin Concent 33 g/dL (31-37) Red Cell Distribution Width 13.3 % (11.5-14.5) Platelet Count 232 x10^3/uL (140-400) Neutrophils (%) (Auto) 87 % (31-73) Lymphocytes (%) (Auto) 5 % (24-48) Monocytes (%) (Auto) 8 % (0-9) Eosinophils (%) (Auto) 0 % (0-3) Basophils (%) (Auto) 0 % (0-3) Neutrophils # (Auto) 13.9 x10^3uL (1.8-7.7) Lymphocytes # (Auto) 0.7 x10^3/uL (1.0-4.8) Monocytes # (Auto) 1.2 x10^3/uL (0.0-1.1) Eosinophils # (Auto) 0.0 x10^3/uL (0.0-0.7) Basophils # (Auto) 0.0 x10^3/uL (0.0-0.2) Segmented Neutrophils % 82 % (35-66) Band Neutrophils % 5 % (0-9) Lymphocytes % 6 % (24-48) Monocytes % 7 % (0-10) Platelet Estimate Adequate (ADEQUATE) Sodium Level 143 mmol/L (136-145) Potassium Level 4.2 mmol/L (3.5-5.1) Chloride Level 109 mmol/L (98-107) Carbon Dioxide Level 25 mmol/L (21-32) Anion Gap 9 (6-14) Blood Urea Nitrogen 9 mg/dL (8-26) Creatinine 0.6 mg/dL (0.7-1.3) Estimated GFR (Cockcroft-Gault) 137.4 Glucose Level 168 mg/dL (70-99) Calcium Level 9.0 mg/dL (8.5-10.1) Magnesium Level 2.3 mg/dL (1.8-2.4) Test 08/14/16 01:09 08/14/16 02:13 08/14/16 03:10 08/14/16 04:15 Glucose (Fingerstick) 131 mg/dL (70-99) 133 mg/dL (70-99) 130 mg/dL (70-99) 138 mg/dL (70-99) Test 08/14/16 06:00 08/14/16 06:10 08/14/16 07:31 08/14/16 08:42 White Blood Count 14.5 x10^3/uL (4.0-11.0) Red Blood Count 3.62 x10^6/uL (4.30-5.70) Hemoglobin 10.8 g/dL (13.0-17.5) Hematocrit 31.6 % (39.0-53.0) Mean Corpuscular Volume 87 fL (79-100) Mean Corpuscular Hemoglobin 30 pg (25-35) Mean Corpuscular Hemoglobin Concent 34 g/dL (31-37) Red Cell Distribution Width 13.7 % (11.5-14.5) Platelet Count 233 x10^3/uL (140-400) Sodium Level 140 mmol/L (136-145) Potassium Level 4.2 mmol/L (3.5-5.1) Chloride Level 106 mmol/L (98-107) Carbon Dioxide Level 26 mmol/L (21-32) Anion Gap 8 (6-14) Blood Urea Nitrogen 8 mg/dL (8-26) Creatinine 0.6 mg/dL (0.7-1.3) Estimated GFR (Cockcroft-Gault) 137.4 Glucose Level 132 mg/dL (70-99) Calcium Level 8.9 mg/dL (8.5-10.1) Magnesium Level 2.1 mg/dL (1.8-2.4) Creatine Kinase 538 U/L (39-308) Glucose (Fingerstick) 120 mg/dL (70-99) 136 mg/dL (70-99) 136 mg/dL (70-99) Test 08/14/16 09:46 08/14/16 10:58 08/14/16 12:13 08/14/16 13:48 Glucose (Fingerstick) 130 mg/dL (70-99) 170 mg/dL (70-99) 177 mg/dL (70-99) 168 mg/dL (70-99) Test 08/14/16 15:04 08/14/16 16:20 08/14/16 17:54 08/14/16 19:07 Glucose (Fingerstick) 109 mg/dL (70-99) 161 mg/dL (70-99) 116 mg/dL (70-99) 123 mg/dL (70-99) Test 08/14/16 20:21 08/14/16 21:33 08/14/16 22:52 08/15/16 00:17 Glucose (Fingerstick) 135 mg/dL (70-99) 188 mg/dL (70-99) 174 mg/dL (70-99) 136 mg/dL (70-99) Test 08/15/16 01:26 08/15/16 02:36 08/15/16 03:43 08/15/16 05:01 Glucose (Fingerstick) 98 mg/dL (70-99) 89 mg/dL (70-99) 129 mg/dL (70-99) 71 mg/dL (70-99) Test 08/15/16 06:09 08/15/16 07:54 Glucose (Fingerstick) 199 mg/dL (70-99) 141 mg/dL (70-99) Laboratory Tests Test 08/14/16 10:58 08/14/16 12:13 08/14/16 13:48 08/14/16 15:04 Glucose (Fingerstick) 170 mg/dL (70-99) 177 mg/dL (70-99) 168 mg/dL (70-99) 109 mg/dL (70-99) Test 08/14/16 16:20 08/14/16 17:54 08/14/16 19:07 08/14/16 20:21 Glucose (Fingerstick) 161 mg/dL (70-99) 116 mg/dL (70-99) 123 mg/dL (70-99) 135 mg/dL (70-99) Test 08/14/16 21:33 08/14/16 22:52 08/15/16 00:17 08/15/16 01:26 Glucose (Fingerstick) 188 mg/dL (70-99) 174 mg/dL (70-99) 136 mg/dL (70-99) 98 mg/dL (70-99) Test 08/15/16 02:36 08/15/16 03:43 08/15/16 05:01 08/15/16 06:09 Glucose (Fingerstick) 89 mg/dL (70-99) 129 mg/dL (70-99) 71 mg/dL (70-99) 199 mg/dL (70-99) Test 08/15/16 07:54 Glucose (Fingerstick) 141 mg/dL (70-99) Medications Current Medications Amiodarone HCl 900 mg/Dextrose 518 ml @ 0 mls/hr 1X ONCE IV ; Start 08/09/16 at 10:30; Stop 08/09/16 at 10:31; Status DC Heparin Sodium (Porcine) (Heparin Sodium) 4,000 unit 1X ONCE IV Last administered on 08/09/16 10:14; Start 08/09/16 at 10:30; Stop 08/09/16 at 10:31 ; Status DC Heparin Sodium/ Dextrose 500 ml @ 0 mls/hr 1X ONCE IV Last administered on 12:45; Start 08/09/16 at 10:30; Stop 08/09/16 at 10:31; Status DC Sodium Chloride 1,000 ml @ 100 mls/hr Q10H IV ; Start 08/09/16 at 10:17; Stop 08/09/16 at 20:16; Status DC Fentanyl Citrate (Fentanyl 2ml Vial) 100 mcg STK-MED ONCE .ROUTE ; Start at 11:01; Stop 08/09/16 at 11:02; Status DC Midazolam HCl (Versed) 2 mg STK-MED ONCE .ROUTE ; Start 08/09/16 at 11:01; Stop 08/09/16 at 11:02; Status DC Heparin Sodium/ Sodium Chloride 1,000 ml @ As Directed STK-MED ONCE .ROUTE ; Start 08/09/16 at 11:02; Stop 08/09/16 at 11:03; Status DC Iodixanol (Visipaque 320) 100 ml STK-MED ONCE .ROUTE ; Start 08/09/16 at 11:02; Stop 08/09/16 at 11:03; Status DC Lidocaine HCl 20 ml STK-MED ONCE .ROUTE ; Start 08/09/16 at 11:02; Stop at 11:03; Status DC Heparin Sodium (Porcine) (Heparin Sodium) 10,000 unit STK-MED ONCE .ROUTE ; Start 08/09/16 at 11:06; Stop 08/09/16 at 11:07; Status DC Heparin Sodium/ Sodium Chloride 1,000 unit 1X ONCE IART Last administered on 12:04; Start 08/09/16 at 11:30; Stop 08/10/16 at 07:43; Status DC Midazolam HCl (Versed) 2 mg 1X ONCE IV Last administered on 08/09/16 11:30; Start 08/09/16 at 11:30; Stop 08/09/16 at 11:31; Status DC Fentanyl Citrate (Fentanyl 2ml Vial) 100 mcg 1X ONCE IV Last administered on 12:06; Start 08/09/16 at 11:30; Stop 08/09/16 at 11:31; Status DC Iodixanol (Visipaque 320) 100 ml 1X ONCE IART Last administered on 08/09/16 12:04; Start 08/09/16 at 11:30; Stop 08/09/16 at 11:31; Status DC Lidocaine HCl 20 ml 1X ONCE IJ Last administered on 08/09/16 12:04; Start at 11:30; Stop 08/09/16 at 11:31; Status DC Heparin Sodium (Porcine) (Heparin Sodium) 2,000 unit 1X ONCE IV Last administered on 08/09/16 12:08; Start 08/09/16 at 11:30; Stop 08/09/16 at 11:31 ; Status DC Tirofiban/Sodium Chloride 250 ml @ As Directed STK-MED ONCE IV ; Start at 11:21; Stop 08/09/16 at 11:22; Status DC Info (Do NOT chart on this entry -- for MONITORING) 1 each PRN DAILY PRN MC SEE COMMENTS; Start 08/09/16 at 11:30; Stop 08/11/16 at 11:29; Status DC Tirofiban/Sodium Chloride 100 ml @ 0 mls/hr 1X ONCE IV Last administered on 11:30; Start 08/09/16 at 11:30; Stop 08/09/16 at 11:31; Status DC Tirofiban/Sodium Chloride 250 ml @ 0 mls/hr CONT PRN IV PER PROTOCOL Last administered on 08/09/16 22:05; Start 08/09/16 at 11:30; Stop 08/10/16 at 05:29 ; Status DC Heparin Sodium/ Dextrose 500 ml @ 20 mls/hr CONT PRN IV SEE I/O RECORD Last administered on 08/13/16 08:15; Start 08/09/16 at 18:30; Stop 08/14/16 at 04:00 ; Status DC Heparin Sodium (Porcine) (Heparin Sodium) 2,300 unit PRN Q6HRS PRN IV FOR UFH LEVEL LESS THAN 0.2 Last administered on 08/09/16 18:37; Start 08/09/16 at 18: 30; Stop 08/14/16 at 08:56; Status DC Insulin Aspart (NovoLOG) 0-5 UNITS TIDWMEALS SQ Last administered on 08/10/16 07:34; Start 08/10/16 at 08:00; Stop 08/10/16 at 08:27; Status DC Dextrose (Dextrose 50%-Water Syringe) 12.5 gm PRN Q15MIN PRN IV SEE COMMENTS; Start 08/09/16 at 18:45; Stop 08/10/16 at 08:41; Status DC Ondansetron HCl (Zofran) 4 mg PRN Q6HRS PRN IV NAUSEA/VOMITING; Start 08/10/16 at 08:30; Stop 08/13/16 at 16:22; Status DC Acetaminophen (Tylenol) 650 mg PRN Q6HRS PRN PO pain; Start 08/10/16 at 08:30; Stop 08/13/16 at 16:19; Status DC Insulin Aspart (NovoLOG) 0-9 UNITS TIDWMEALS SQ Last administered on 08/12/16 17:36; Start 08/10/16 at 12:00 Dextrose (Dextrose 50%-Water Syringe) 12.5 gm PRN Q15MIN PRN IV SEE COMMENTS; Start 08/10/16 at 08:30; Stop 08/14/16 at 08:49; Status DC Amiodarone HCl (Cordarone) 200 mg DAILY PO Last administered on 08/15/16 07:45 ; Start 08/10/16 at 09:00 Aspirin (Children'S Aspirin) 81 mg DAILY PO Last administered on 08/10/16 10: 25; Start 08/10/16 at 09:00; Stop 08/10/16 at 17:45; Status DC Atorvastatin Calcium (Lipitor) 40 mg QHS PO Last administered on 08/14/16 21: 24; Start 08/10/16 at 21:00 Insulin Aspart (NovoLOG) 12 units TIDAC SQ Last administered on 08/10/16 11:43 ; Start 08/10/16 at 11:30; Stop 08/11/16 at 10:54; Status DC Metformin HCl (Glucophage) 1,000 mg BIDWMEALS PO Last administered on 10:26; Start 08/10/16 at 08:30; Stop 08/10/16 at 10:49; Status DC Metoprolol Tartrate (Lopressor) 50 mg BID PO Last administered on 08/13/16 08: 11; Start 08/10/16 at 09:00; Stop 08/13/16 at 16:22; Status DC Lisinopril (Prinivil) 20 mg DAILY PO Last administered on 08/10/16 10:25; Start 08/10/16 at 09:00; Stop 08/10/16 at 17:45; Status DC Insulin Detemir (Levemir) 32 units QHS SQ Last administered on 08/10/16 21:28 ; Start 08/10/16 at 21:00; Stop 08/11/16 at 10:54; Status DC Ticagrelor (Brilinta) 90 mg BID PO ; Start 08/10/16 at 09:00; Status Cancel Tirofiban/Sodium Chloride 250 ml @ 0 mls/hr CONT PRN IV PER PROTOCOL Last administered on 08/13/16 02:23; Start 08/10/16 at 09:15; Stop 08/13/16 at 10:15 ; Status DC Metoprolol Tartrate (Lopressor) 25 mg 1X ONCE PO ; Start 08/14/16 at 06:00; Stop 08/14/16 at 06:01; Status Cancel Cefazolin Sodium/ Dextrose 50 ml @ 100 mls/hr 1X ONCE IV ; Start 08/14/16 at 06:00; Stop 08/14/16 at 06:29; Status Cancel Insulin Aspart (NovoLOG) 15 units TIDAC SQ ; Start 08/11/16 at 11:30; Stop 08/11 at 11:39; Status DC Insulin Detemir (Levemir) 38 units QHS SQ ; Start 08/11/16 at 21:00; Stop at 21:00; Status DC Insulin Aspart (NovoLOG) 12 units TIDAC SQ Last administered on 08/12/16 09:01 ; Start 08/11/16 at 12:00; Stop 08/12/16 at 09:51; Status DC Insulin Detemir (Levemir) 32 units QHS SQ ; Start 08/11/16 at 21:00; Stop at 09:51; Status DC Ondansetron HCl (Zofran) 4 mg PRN Q6HRS PRN IV NAUSEA/VOMITING; Start 08/14/16 at 07:00; Stop 08/15/16 at 06:59; Status DC Fentanyl Citrate (Fentanyl 2ml Vial) 25 mcg PRN Q5MIN PRN IV MILD PAIN; Start 08/14/16 at 07:00; Stop 08/15/16 at 06:59; Status DC Fentanyl Citrate (Fentanyl 2ml Vial) 50 mcg PRN Q5MIN PRN IV MODERATE PAIN; Start 08/14/16 at 07:00; Stop 08/15/16 at 06:59; Status DC Morphine Sulfate 1 mg PRN Q10MIN PRN IV SEVERE PAIN Last administered on 17:47; Start 08/14/16 at 07:00; Stop 08/14/16 at 07:00; Status DC Ringer's Solution 1,000 ml @ 30 mls/hr Q24H IV ; Start 08/14/16 at 07:00; Stop 08/14/16 at 18:59; Status DC Lidocaine HCl 2 ml PRN 1X PRN ID PRIOR TO IV START; Start 08/14/16 at 07:00; Stop 08/15/16 at 06:59; Status DC Hydromorphone HCl (Dilaudid) 0.5 mg PRN Q10MIN PRN IV SEV PAIN, Second choice; Start 08/14/16 at 07:00; Stop 08/15/16 at 06:59; Status DC Prochlorperazine Edisylate (Compazine) 5 mg PACU PRN PRN IV NAUSEA, MRX1; Start 08/14/16 at 07:00; Stop 08/15/16 at 06:59; Status DC Insulin Aspart (NovoLOG) 20 units 1X ONCE SQ Last administered on 08/11/16 17 :41; Start 08/11/16 at 17:30; Stop 08/11/16 at 17:31; Status DC Insulin Aspart (NovoLOG) 15 units TIDAC SQ Last administered on 08/13/16 08:16 ; Start 08/12/16 at 11:30 Insulin Detemir (Levemir) 38 units QHS SQ Last administered on 08/12/16 20:52 ; Start 08/12/16 at 21:00 Aspirin (Ecotrin) 81 mg [id number] PO Last administered on 08/13/16 08:11; Start 08/13/16 at 08:00; Stop 08/13/16 at 16:20; Status DC Heparin Sodium (Porcine) 95390 unit/Ringer's Solution 1,020 ml @ 1,020 mls/hr 1X PERIOP ONCE IRR ; Start 08/14/16 at 06:00; Stop 08/14/16 at 06:59; Status Cancel Potassium Chloride 70 meq/ Sodium Bicarbonate 12.5 meq/Lidocaine HCl 24 ml/ Parenteral Electrolytes 571.5 ml @ 571.5 mls/ hr 1X PERIOP ONCE IRR ; Start at 06:00; Stop 08/14/16 at 06:59; Status Cancel Potassium Chloride 15 meq/ Sodium Bicarbonate 12.5 meq/Parenteral Electrolytes 520 ml @ 520 mls/hr 1X PERIOP ONCE IRR ; Start 08/14/16 at 06:00; Stop at 06:59; Status Cancel Vancomycin HCl 1.5 gm/Sodium Chloride 500 ml @ 250 mls/hr 1X ONCE IV ; Start 08/14/16 at 06:00; Stop 08/14/16 at 07:59; Status UNV Zolpidem Tartrate (Ambien) 5 mg PRN QHS PRN PO INSOMNIA, MAY REPEAT IN 1HR; Start 08/13/16 at 10:30 Carvedilol (Coreg) 3.125 mg 1X ONCE PO ; Start 08/14/16 at 06:00; Stop at 07:45; Status DC Insulin Human Regular 150 unit/ Sodium Chloride 151.5 ml @ 0 mls/hr CONT PRN IV SEE I/O RECORD; Start 08/14/16 at 06:00; Status Cancel Vancomycin HCl 1.25 gm/Sodium Chloride 250 ml @ 166.667 mls/hr 1X ONCE IV ; Start 08/13/16 at 13:30; Stop 08/13/16 at 14:59; Status DC Morphine Sulfate 1 mg 1X ONCE IV Last administered on 08/13/16 11:27; Start 08/13/16 at 11:30; Stop 08/13/16 at 11:31; Status DC Heparin Sodium (Porcine) 16329 unit/Ringer's Solution 1,020 ml @ 1,020 mls/hr 1X PERIOP ONCE IRR Last administered on 08/13/16 13:56; Start 08/13/16 at 12: 00; Stop 08/13/16 at 12:59; Status DC Potassium Chloride 15 meq/ Sodium Bicarbonate 12.5 meq/Parenteral Electrolytes 520 ml @ 520 mls/hr 1X PERIOP ONCE IRR Last administered on 08/13/16 14:26; Start 08/13/16 at 12:00; Stop 08/13/16 at 12:59; Status DC Potassium Chloride 70 meq/ Sodium Bicarbonate 12.5 meq/Lidocaine HCl 24 ml/ Parenteral Electrolytes 571.5 ml @ 571.5 mls/ hr 1X PERIOP ONCE IRR Last administered on 08/13/16 14:26; Start 08/13/16 at 12:00; Stop 08/13/16 at 12:59 ; Status DC Phenylephrine HCl (Sam-Synephrine Inj) 10 mg STK-MED ONCE .ROUTE ; Start at 12:13; Stop 08/13/16 at 12:14; Status DC Ephedrine Sulfate 50 mg STK-MED ONCE IV ; Start 08/13/16 at 12:13; Stop at 12:14; Status DC Etomidate (Amidate) 20 mg STK-MED ONCE IV ; Start 08/13/16 at 12:13; Stop at 12:14; Status DC Lidocaine HCl (Xylocaine 2% Topical 5gm Tube) 5 shamika STK-MED ONCE TP ; Start at 12:13; Stop 08/13/16 at 12:14; Status DC Rocuronium [place] (Zemuron) 100 mg STK-MED ONCE .ROUTE ; Start 08/13/16 at 12: 14; Stop 08/13/16 at 12:15; Status DC Heparin Sodium (Porcine) 30,000 unit STK-MED ONCE .ROUTE ; Start 08/13/16 at 12: 16; Stop 08/13/16 at 12:17; Status DC Aminocaproic Acid (Amicar) 5,000 mg STK-MED ONCE IV ; Start 08/13/16 at 12:16; Stop 08/13/16 at 12:17; Status DC Nitroglycerin/ Dextrose 250 ml @ As Directed STK-MED ONCE IV ; Start 08/13/16 at 12:17; Stop 08/14/16 at 07:45; Status DC Sufentanil Citrate (Sufenta) 100 mcg STK-MED ONCE .ROUTE ; Start 08/13/16 at 12: 17; Stop 08/13/16 at 12:18; Status DC Midazolam HCl (Versed) 5 mg STK-MED ONCE .ROUTE ; Start 08/13/16 at 12:17; Stop 08/13/16 at 12:18; Status DC Fentanyl Citrate (Fentanyl 5ml Vial) 250 mcg STK-MED ONCE .ROUTE ; Start at 12:17; Stop 08/13/16 at 12:18; Status DC Heparin Sodium/ Sodium Chloride 1,000 ml @ As Directed STK-MED ONCE .ROUTE ; Start 08/13/16 at 12:19; Stop 08/13/16 at 12:20; Status DC Lidocaine HCl 20 ml STK-MED ONCE .ROUTE ; Start 08/13/16 at 12:19; Stop at 12:20; Status DC Iodixanol (Visipaque 320) 100 ml STK-MED ONCE .ROUTE ; Start 08/13/16 at 12:19; Stop 08/13/16 at 12:20; Status DC Succinylcholine Chloride (Anectine) 200 mg STK-MED ONCE .ROUTE ; Start 08/13/16 at 12:26; Stop 08/13/16 at 12:27; Status DC Fentanyl Citrate (Fentanyl 2ml Vial) 100 mcg STK-MED ONCE .ROUTE ; Start at 12:26; Stop 08/13/16 at 12:27; Status DC Midazolam HCl (Versed) 2 mg STK-MED ONCE .ROUTE ; Start 08/13/16 at 12:26; Stop 08/13/16 at 12:27; Status DC Phenylephrine HCl 1 mg STK-MED ONCE IV ; Start 08/13/16 at 12:26; Stop 08/13/16 at 12:27; Status DC Cellulose 1 each STK-MED ONCE .ROUTE Last administered on 08/13/16t 13:56; Start 08/13/16 at 12:26; Stop 08/13/16 at 12:27; Status DC Cefazolin Sodium/ Dextrose 50 ml @ As Directed STK-MED ONCE IV ; Start 08/13/16 at 12:27; Stop 08/13/16 at 12:28; Status DC Protamine Sulfate 50 mg STK-MED ONCE IV ; Start 08/13/16 at 12:27; Stop at 12:28; Status DC Aspirin (Aspirin) 300 mg STK-MED ONCE .ROUTE Last administered on 08/13/16 16: 18; Start 08/13/16 at 12:27; Stop 08/13/16 at 12:28; Status DC Mineral Oil (Muri-Lube) 10 ml STK-MED ONCE MC Last administered on 08/13/16 15 :10; Start 08/13/16 at 12:27; Stop 08/13/16 at 12:28; Status DC Heparin Sodium (Porcine) (Heparin Sodium) 10,000 unit STK-MED ONCE .ROUTE ; Start 08/13/16 at 12:29; Stop 08/13/16 at 12:30; Status DC Atropine Sulfate 0.5 mg STK-MED ONCE .ROUTE ; Start 08/13/16 at 12:30; Stop at 12:31; Status DC Nitroglycerin (Nitroglycerin) 200 mcg 1X ONCE IART Last administered on 12:45; Start 08/13/16 at 12:45; Stop 08/13/16 at 12:46; Status DC Heparin Sodium/ Sodium Chloride 1,000 unit 1X ONCE IART Last administered on 12:45; Start 08/13/16 at 12:45; Stop 08/13/16 at 12:46; Status DC Iodixanol (Visipaque 320) 100 ml 1X ONCE IART Last administered on 08/13/16 12:45; Start 08/13/16 at 12:45; Stop 08/13/16 at 12:46; Status DC Lidocaine HCl 20 ml 1X ONCE IJ Last administered on 08/13/16 12:45; Start at 12:45; Stop 08/13/16 at 12:46; Status DC Heparin Sodium (Porcine) (Heparin Sodium) 3,000 unit 1X ONCE IV ; Start at 12:45; Stop 08/13/16 at 12:46; Status DC Heparin Sodium/ Sodium Chloride 500 ml @ As Directed STK-MED ONCE .ROUTE ; Start 08/13/16 at 12:39; Stop 08/13/16 at 12:40; Status DC Nitroglycerin/ Dextrose 250 ml @ As Directed STK-MED ONCE IV ; Start 08/13/16 at 12:47; Stop 08/14/16 at 07:45; Status DC Rocuronium [place] (Zemuron) 100 mg STK-MED ONCE .ROUTE ; Start 08/13/16 at 14: 51; Stop 08/13/16 at 14:52; Status DC Protamine Sulfate 250 mg STK-MED ONCE IV ; Start 08/13/16 at 14:52; Stop at 14:53; Status DC Protamine Sulfate 50 mg STK-MED ONCE IV ; Start 08/13/16 at 15:05; Stop at 15:06; Status DC Epinephrine HCl (EPINEPHrine SYRINGE) 1 mg STK-MED ONCE .ROUTE ; Start 08/13/16 at 15:09; Stop 08/13/16 at 15:10; Status DC Midazolam HCl (Versed) 2 mg STK-MED ONCE .ROUTE ; Start 08/13/16 at 15:33; Stop 08/13/16 at 15:34; Status DC Lidocaine HCl (Lidocaine Pf 2% Vial) 5 ml STK-MED ONCE .ROUTE ; Start 08/13/16 at 15:38; Stop 08/13/16 at 15:39; Status DC Aminocaproic Acid (Amicar) 5,000 mg STK-MED ONCE IV ; Start 08/13/16 at 15:38; Stop 08/13/16 at 15:39; Status DC Mannitol (Mannitol) 12.5 g STK-MED ONCE .ROUTE ; Start 08/13/16 at 15:38; Stop 08/13/16 at 15:39; Status DC Calcium Chloride 1,000 mg STK-MED ONCE IV ; Start 08/13/16 at 15:38; Stop at 15:39; Status DC Albumin Human 100 ml @ As Directed STK-MED ONCE IV ; Start 08/13/16 at 15:38; Stop 08/13/16 at 15:39; Status DC Heparin Sodium (Porcine) 30,000 unit STK-MED ONCE .ROUTE ; Start 08/13/16 at 15: 39; Stop 08/13/16 at 15:40; Status DC Magnesium Sulfate 5 gm STK-MED ONCE .ROUTE ; Start 08/13/16 at 15:39; Stop 08/13 at 15:40; Status DC Desflurane (Suprane) 90 ml STK-MED ONCE IH ; Start 08/13/16 at 15:54; Stop 08/13 at 15:55; Status DC Midazolam HCl (Versed) 2 mg STK-MED ONCE .ROUTE ; Start 08/13/16 at 16:01; Stop 08/13/16 at 16:02; Status DC Rocuronium [place] (Zemuron) 50 mg STK-MED ONCE .ROUTE ; Start 08/13/16 at 16:08 ; Stop 08/13/16 at 16:09; Status DC Dextrose 1,000 ml @ 30 mls/hr Q24H IV ; Start 08/13/16 at 16:08 Albumin Human 250 ml @ 60 mls/hr PRN Q4HRS PRN IV SEE I/O RECORD Last administered on 08/13/16t 18:22; Start 08/13/16 at 17:00 Insulin Human Regular 150 unit/ Sodium Chloride 151.5 ml @ 0 mls/hr CONT PRN PRN IV SEE I/O RECORD Last administered on 08/14/16t 21:35; Start 08/13/16 at 16 :15 Dextrose (Dextrose 50%-Water Syringe) 25 gm PRN Q15MIN PRN IV LOW BLOOD SUGAR; Start 08/13/16 at 16:15 Nitroglycerin/ Dextrose 250 ml @ 0 mls/hr CONT PRN PRN IV SEE I/O RECORD; Start 08/13/16 at 16:15; Stop 08/14/16 at 07:45; Status DC Dopamine HCl/ Dextrose 250 ml @ 0 mls/hr CONT PRN PRN IV SEE I/O RECORD; Start 08/13/16 at 16:15 Amiodarone HCl 900 mg/Dextrose 518 ml @ 33.33 mls/ hr CONT PRN PRN IV RUNS OF VT; Start 08/13/16 at 16:15 Amiodarone HCl 150 mg/Dextrose 103 ml @ 200 mls/hr 1X PRN PRN IV VT; Start at 16:15 Info 1 ea CONT PRN PRN MC SEE COMMENTS; Start 08/13/16 at 16:15 Info 1 ea CONT PRN PRN MC SEE COMMENTS; Start 08/13/16 at 16:15 Magnesium Sulfate/ Dextrose 100 ml @ 100 mls/hr PRN DAILY PRN IV FOR MAG < 2.2 ; Start 08/13/16 at 16:15 Famotidine (Pepcid) 20 mg BID IVP Last administered on 08/15/16 07:45; Start 08/13/16 at 21:00 Ondansetron HCl (Zofran) 4 mg PRN Q4HRS PRN IV NAUSEA/VOMITING; Start 08/13/16 at 16:15 Morphine Sulfate 2 mg PRN Q1HR PRN IV PAIN Last administered on 08/15/16 02:39 ; Start 08/13/16 at 16:15 Acetaminophen (Tylenol) 650 mg PRN Q4HRS PRN PO MILD PAIN / TEMP; Start at 16:15 Acetaminophen (Acetaminophen Supp) 650 mg PRN Q4HRS PRN ND MILD PAIN / TEMP; Start 08/13/16 at 16:15 Meperidine HCl (Demerol) 12.5 mg PRN Q15MIN PRN IV SHIVERING Last administered on 08/13/16 17:28; Start 08/13/16 at 16:15; Stop 08/14/16 at 07:45; Status DC Propofol 100 ml @ 0 mls/hr CONT PRN PRN IV POSTOP SEDATION UNTIL EXTUBATE; Start 08/13/16 at 16:15; Stop 08/14/16 at 07:45; Status DC Senna/Docusate Sodium (Senna Plus) 1 tab BID PO Last administered on 08/15/16 07:44; Start 08/14/16 at 09:00 Bisacodyl (Dulcolax Supp) 10 mg PRN DAILY PRN ND NO BOWEL MOVEMENT; Start 08/13 at 16:15 Chlorhexidine Gluconate (Peridex) 15 ml BID MM ; Start 08/13/16 at 21:00; Stop 08/14/16 at 08:43; Status DC Aspirin (Ecotrin) 325 mg DAILYWBKFT PO Last administered on 08/15/16 07:44; Start 08/14/16 at 08:00 Aspirin (Aspirin) 300 mg PRN DAILY PRN ND IF UNABLE TO TAKE PO; Start 08/13/16 at 16:15 Albuterol Sulfate (Ventolin Neb Soln) 2.5 mg PRN Q4HRS PRN NEB SHORTNESS OF BREATH; Start 08/13/16 at 16:15 Metoprolol Tartrate (Lopressor) 25 mg BID PO ; Start 08/14/16 at 09:00; Stop at 09:04; Status DC Nicardipine HCl 50 mg/Sodium Chloride 270 ml @ 0 mls/hr CONT PRN PRN IV PER PROTOCOL; Start 08/13/16 at 16:15; Stop 08/14/16 at 07:45; Status DC Clevidipine 100 ml @ 0 mls/hr CONT PRN IV PER PROTOCOL; Start 08/13/16 at 16:15 ; Stop 08/14/16 at 07:45; Status DC Oxycodone/ Acetaminophen (Percocet 5/325) 1 tab PRN Q4HRS PRN PO MILD PAIN; Start 08/13/16 at 16:15 Oxycodone/ Acetaminophen (Percocet 5/325) 2 tab PRN Q4HRS PRN PO MODERATE PAIN , SEVERE PAIN Last administered on 08/15/16 07:44; Start 08/13/16 at 16:15 Cefazolin Sodium/ Dextrose 50 ml @ 100 mls/hr Q8H IV Last administered on 08/15 06:07; Start 08/13/16 at 22:00; Stop 08/15/16 at 06:29; Status DC Lidocaine HCl 30 ml STK-MED ONCE .ROUTE ; Start 08/13/16 at 17:10; Stop at 17:11; Status DC Morphine Sulfate 1 mg PRN Q10MIN PRN IV SEVERE PAIN Last administered on 14:01; Start 08/13/16 at 18:00 Potassium Chloride 50 ml @ 50 mls/hr 1X ONCE IV Last administered on 19:08; Start 08/13/16 at 18:15; Stop 08/13/16 at 19:14; Status DC Lidocaine HCl 30 ml STK-MED ONCE .ROUTE ; Start 08/13/16 at 17:00; Stop at 07:12; Status DC Amiodarone HCl (Cordarone) 400 mg BID PO ; Start 08/15/16 at 09:00 Metoprolol Tartrate (Lopressor) 12.5 mg BID PO ; Start 08/15/16 at 09:00 Throat Lozenges (Cepacol Sore Throat Lozenge) 1 lien PRN Q2HRS PRN PO SORE THROAT; Start 08/15/16 at 09:00 Al Hydroxide/Mg Hydroxide (Mylanta Plus Xs) 30 ml PRN Q4HRS PRN PO HEARTBURN / GAS; Start 08/15/16 at 09:00 Magnesium Hydroxide (Milk Of Magnesia) 2,400 mg PRN DAILY PRN PO CONSTIPATION; Start 08/15/16 at 09:00 Nitroglycerin (Nitrostat) 0.4 mg PRN Q5MIN PRN SL CHEST PAIN; Start 08/15/16 at 09:00 Active Scripts Active Brilinta (Ticagrelor) 90 Mg Tablet 90 Mg PO BID 30 Days Atorvastatin Calcium 40 Mg Tablet 40 Mg PO QHS 30 Days Aspirin Ec (Aspirin) 81 Mg Tablet.dr 81 Mg PO DAILYWBKFT 30 Days Amiodarone Hcl 200 Mg Tablet 200 Mg PO DAILY 30 Days Reported Metoprolol Tartrate 50 Mg Tablet 1 Tab PO BID NITROGLYCERIN SubLingual (Nitroglycerin) 0.4 Mg Tab.subl 1 Tab SL UD Novolog Flexpen (Insulin Aspart) 100 Unit/1 Ml Insuln.pen 12 Unit SQ TIDAC Metformin Hcl 1,000 Mg Tablet 1,000 Mg PO BIDWMEALS Lantus Solostar (Insulin Glargine,Hum.rec.anlog) 100 Unit/1 Ml Insuln.pen 32 Unit SQ QHS Enalapril Maleate 10 Mg Tablet 1 Tab PO DAILY Atorvastatin Calcium 40 Mg Tablet 1 Tab PO QHS Aspirin 81 Mg Tab.chew 1 Tab PO DAILY Vitals/I & O Vital Sign - Last 24 Hours 08/14/16 08/14/16 08/14/16 08/14/16 11:00 12:00 12:00 13:00 Temp 98.4 98.4 Pulse 70 68 76 B/P (MAP) 142/90 (107) 137/87 (104) 127/86 (100) O2 Delivery Nasal Cannula O2 Flow Rate 3.0 08/14/16 08/14/16 08/14/16 08/14/16 14:00 14:01 14:30 15:00 Pulse 84 82 Resp 17 20 B/P (MAP) 118/62 (80) 114/65 (81) Pulse Ox 97 97 97 97 O2 Delivery Nasal Cannula Nasal Cannula Nasal Cannula Nasal Cannula O2 Flow Rate 3.0 3.0 3.0 3.0 08/14/16 08/14/16 08/14/16 08/14/16 16:01 16:05 17:00 17:52 Pulse 80 82 Resp 18 26 B/P (MAP) 109/65 (80) 119/67 (84) Pulse Ox 96 97 96 O2 Delivery Nasal Cannula Nasal Cannula Nasal Cannula Nasal Cannula O2 Flow Rate 3.0 3.0 3.0 3.0 08/14/16 08/14/16 08/14/16 08/14/16 18:00 19:00 19:33 20:00 Temp 100.2 100.2 Pulse 82 86 85 Resp 22 20 22 22 B/P (MAP) 116/64 (81) 119/62 (81) 117/67 (84) Pulse Ox 97 98 96 96 O2 Delivery Nasal Cannula Nasal Cannula Room Air Nasal Cannula O2 Flow Rate 3.0 3.0 3.0 3.0 08/14/16 08/14/16 08/14/16 08/14/16 20:00 21:00 21:26 22:00 Pulse 87 85 Resp 18 24 18 B/P (MAP) 111/61 (78) 114/64 (81) Pulse Ox 97 96 96 O2 Delivery Nasal Cannula Nasal Cannula Nasal Cannula Nasal Cannula O2 Flow Rate 3.0 3.0 3.0 3.0 08/14/16 08/15/16 08/15/16 08/15/16 23:00 00:00 00:00 00:16 Temp 99.9 99.9 Pulse 85 84 Resp 14 19 23 B/P (MAP) 128/69 (88) 113/61 (78) Pulse Ox 95 95 94 O2 Delivery Nasal Cannula Nasal Cannula Nasal Cannula Nasal Cannula O2 Flow Rate 3.0 3.0 3.0 3.0 08/15/16 08/15/16 08/15/16 08/15/16 01:00 02:00 02:39 03:00 Pulse 84 81 81 Resp 22 19 20 21 B/P (MAP) 113/66 (82) 120/67 (84) 136/75 (95) Pulse Ox 96 96 95 97 O2 Delivery Nasal Cannula Nasal Cannula Nasal Cannula Nasal Cannula O2 Flow Rate 3.0 3.0 3.0 3.0 08/15/16 08/15/16 08/15/16 08/15/16 04:00 04:00 04:17 05:00 Temp 98.9 98.9 Pulse 82 87 Resp 20 20 21 B/P (MAP) 132/68 (89) 125/71 (89) Pulse Ox 96 96 96 O2 Delivery Nasal Cannula Nasal Cannula Nasal Cannula Nasal Cannula O2 Flow Rate 3.0 3.0 3.0 3.0 08/15/16 08/15/16 08/15/16 08/15/16 05:05 06:00 06:20 07:44 Pulse 85 Resp 20 17 22 24 B/P (MAP) 127/73 (91) Pulse Ox 95 96 96 95 O2 Delivery Nasal Cannula Nasal Cannula Nasal Cannula Nasal Cannula O2 Flow Rate 3.0 3.0 3.0 2.0 08/15/16 07:45 Pulse 84 B/P (MAP) 147/81 Intake and Output 08/14/16 08/14/16 08/15/16 15:00 23:00 07:00 Intake Total 1450 ml 602 ml 411.6 ml Output Total 400 ml 350 ml 475 ml Balance 1050 ml 252 ml -63.4 ml AYE VIRK MD Aug 15, 2016 10:12
--- NOTE | 2016-08-15 10:34 | PDOC ---
LIANG CASTELAN BUFFER IN[employer]ATED PAD 08/15/16 1034: CARDIO Progress Notes Date and Time Date of Service 08/15/2016 Time of Evaluation 0930 Subjective Subjective: No shortness of breath, No Palpitations, No Dizziness, Other ( Surgical chest pain controlled; tolerating increase activity) Vitals Vitals Vital Signs Date Time Temp Pulse Resp B/P (MAP) Pulse Ox O2 Delivery O2 Flow Rate FiO2 08/15/16 07:45 84 147/81 08/15/16 07:44 24 95 Nasal Cannula 2.0 08/15/16 04:00 98.9 98.9 Weight Weight [ ] Input and Output Intake and Output Intake and Output 08/15/16 07:00 Intake Total 2463.6 ml Output Total 1225 ml Balance 1238.6 ml Intake Oral 1965 ml IV Total 308.6 ml Other 190 ml Output Urine Total 1100 ml Chest Tube Drainage Total 125 ml Laboratory Labs Laboratory Tests Test 08/14/16 10:58 08/14/16 12:13 08/14/16 13:48 08/14/16 15:04 Glucose (Fingerstick) 170 mg/dL (70-99) 177 mg/dL (70-99) 168 mg/dL (70-99) 109 mg/dL (70-99) Test 08/14/16 16:20 08/14/16 17:54 08/14/16 19:07 08/14/16 20:21 Glucose (Fingerstick) 161 mg/dL (70-99) 116 mg/dL (70-99) 123 mg/dL (70-99) 135 mg/dL (70-99) Test 08/14/16 21:33 08/14/16 22:52 08/15/16 00:17 08/15/16 01:26 Glucose (Fingerstick) 188 mg/dL (70-99) 174 mg/dL (70-99) 136 mg/dL (70-99) 98 mg/dL (70-99) Test 08/15/16 02:36 08/15/16 03:43 08/15/16 05:01 08/15/16 06:09 Glucose (Fingerstick) 89 mg/dL (70-99) 129 mg/dL (70-99) 71 mg/dL (70-99) 199 mg/dL (70-99) Test 08/15/16 07:54 Glucose (Fingerstick) 141 mg/dL (70-99) Physical Exam HEENT: Neck Supple W Full Motion Chest: Symmetric LUNGS: Other (bibasilar crackles) Heart: S1S2, RRR (SR) Abdomen: Soft N/T Extremities: No Edema, No Calf Tenderness Neurology: alert, oriented, follow commands Assessment Assessment 1. Recurrent inferior STEMI Occurred again 08/13 noted via [facility] with stent thrombosis to RCA with PTCA With above prompting emergent CABG (x2), tolerated procedure well and extubated POD#2, doing well 2. HTN: controlled 3. HLD: statin 4. DM2 5. Tobaccoism 6. Prior hx of VT storm: no significant ectopies overnight Recommendations 1. Continue treatment per CTS recommendation. Increasing activity today. Transfer to [facility] 2. Secondary prevention. Amiod/BB has been restarted. Supportive care. Start on ACEi soon. 3. Continue to encourage lifestyle modifications and cardiac rehab JEFFREY PENA MD 08/15/16 2216: CARDIO Progress Notes Plan Plan Pt. seen and examined. Agree with above [employer] TUBE BENDER note. No acute events overnight. All lines are out. He has been ambulating. Meds reviewed. Noted 400mg bid of amiodarone. May need to titrate down rapidly to 200mg daily On exam he has normal heart tones. Supportive care. Doing well overall. Anticipate DC in 48 hours or so. LIANG CASTELAN APRN Aug 15, 2016 10:34 JEFFREY PENA MD Aug 15, 2016 22:16
[2016-08-15] MEDS: FAMOTIDINE 20 MG TABLET. PO SCH (21:11)
[2016-08-15] MEDS: ATORVASTATIN CALCIUM 40 MG TABLET. PO SCH (21:11)
[2016-08-15] MEDS: INSULIN DETEMIR 300 UNITS/3 ML INSULN.PEN. SQ SCH (21:17)
[2016-08-16 03:10] VITALS: BP 118/72
[2016-08-16] MEDS: oxyCODONE/APAP 5/325 1 TAB TABLET PO PRN ×2 (03:45→21:04)
[2016-08-16 05:14] LABS: HEMATOCRIT 30.7 % (39.0-53.0); HEMOGLOBIN 10.3 g/dL (13.0-17.5); RED BLOOD COUNT 3.44 x10^6/uL (4.30-5.70); RED CELL DISTRIBUTION WIDTH 13.8 % (11.5-14.5); WHITE BLOOD COUNT 8.2 x10^3/uL (4.0-11.0)
[2016-08-16 05:30] LABS: CALCIUM 8.5 mg/dL (8.5-10.1); CREATININE 0.6 mg/dL (0.7-1.3); GFR 137.4; MAGNESIUM 1.9 mg/dL (1.8-2.4); POTASSIUM 3.8 mmol/L (3.5-5.1)
[2016-08-16 07:00] VITALS: BP 109/64
[2016-08-16] MEDS: ASPIRIN ENTERIC COATED 325 MG TABLET.DR. PO SCH (08:10)
[2016-08-16] MEDS: FAMOTIDINE 20 MG TABLET. PO SCH ×2 (08:11→21:03)
[2016-08-16] MEDS: SENNOSIDES/DOCUSATE 8.6/50MG TABLET. PO SCH ×2 (08:11→21:03)
[2016-08-16] MEDS: INSULIN ASPART 300 UNITS/3 ML INSULN.PEN SQ SCH ×6 (08:17→17:00)
[2016-08-16] MEDS: AMIODARONE HCL 200 MG TABLET. PO SCH ×2 (08:20→21:02)
[2016-08-16] MEDS: METOPROLOL TART IMMED RELEASE 25 MG TABLET. PO SCH ×2 (08:21→21:03)
[2016-08-16] MEDS ORDERED: POTASSIUM CHLORIDE 20 MEQ TABLET.ER. PO ONE (08:30)
[2016-08-16 11:00] VITALS: BP 131/80
--- NOTE | 2016-08-16 11:53 | PDOC ---
CARDIO Progress Notes Date and Time Date of Service 08/16/2016 Time of Evaluation 0930 Subjective Subjective: No shortness of breath, No Palpitations, No Dizziness, Other ( Surgical chest pain controlled; tolerating increase activity) Vitals Vitals Vital Signs Date Time Temp Pulse Resp B/P (MAP) Pulse Ox O2 Delivery O2 Flow Rate FiO2 08/16/16 11:00 98.9 78 20 131/80 (97) 95 Room Air 98.9 08/15/16 23:59 2.0 Weight Weight [ ] Input and Output Intake and Output Intake and Output 08/16/16 07:00 Intake Total 1395 ml Output Total 1425 ml Balance -30 ml Intake Oral 1380 ml IV Total 15 ml Output Urine Total 1400 ml Chest Tube Drainage Total 25 ml Laboratory Labs Laboratory Tests Test 08/15/16 12:47 08/15/16 17:45 08/15/16 21:11 08/16/16 04:10 Glucose (Fingerstick) 205 mg/dL (70-99) 123 mg/dL (70-99) 152 mg/dL (70-99) White Blood Count 8.2 x10^3/uL (4.0-11.0) Red Blood Count 3.44 x10^6/uL (4.30-5.70) Hemoglobin 10.3 g/dL (13.0-17.5) Hematocrit 30.7 % (39.0-53.0) Mean Corpuscular Volume 89 fL (79-100) Mean Corpuscular Hemoglobin 30 pg (25-35) Mean Corpuscular Hemoglobin Concent 34 g/dL (31-37) Red Cell Distribution Width 13.8 % (11.5-14.5) Platelet Count 244 x10^3/uL (140-400) Sodium Level 138 mmol/L (136-145) Potassium Level 3.8 mmol/L (3.5-5.1) Chloride Level 103 mmol/L (98-107) Carbon Dioxide Level 27 mmol/L (21-32) Anion Gap 8 (6-14) Blood Urea Nitrogen 8 mg/dL (8-26) Creatinine 0.6 mg/dL (0.7-1.3) Estimated GFR (Cockcroft-Gault) 137.4 Glucose Level 116 mg/dL (70-99) Calcium Level 8.5 mg/dL (8.5-10.1) Magnesium Level 1.9 mg/dL (1.8-2.4) Test 08/16/16 08:03 Glucose (Fingerstick) 193 mg/dL (70-99) Physical Exam HEENT: Neck Supple W Full Motion Chest: Symmetric LUNGS: Other (faint bibasilar crackles) Heart: S1S2, RRR (SR) Abdomen: Soft N/T Extremities: No Edema, No Calf Tenderness Neurology: alert, oriented, follow commands Assessment Assessment 1. Recurrent inferior STEMI Occurred again 08/13 noted via [facility] with stent thrombosis to RCA with PTCA With above prompting emergent CABG (x2), tolerated procedure well and extubated POD#3, progressing as planned. No rhythm ectopies 2. HTN: episodes at low end 3. HLD: statin 4. DM2 5. Tobaccoism 6. Prior hx of VT storm: no significant ectopies overnight Recommendations 1. Continue treatment per CTS recommendation. Increasing activity today. 2. Secondary prevention. Tolerating Amiodarone/BB has been restarted. Supportive care. Will start on ACEi soon pending BP trend. 3. Continue to encourage lifestyle modifications and cardiac rehab LIANG CASTELAN RAILROAD CONSTRUCTION DIRECTOR Aug 16, 2016 11:53
--- NOTE | 2016-08-16 13:09 | RAD ---
Indication: Status post CABG. Time of exam 12:38 PM Correlation is made with prior chest one day earlier. The heart size is stable. There are changes of median sternotomy and CABG. The right lung is clear. There is mild residual left basilar subsegmental atelectasis. No effusion or pneumothorax is seen. Impression: Stable post CABG chest.
[2016-08-16 15:00] VITALS: BP 132/74
--- NOTE | 2016-08-16 15:31 | PDOC ---
PROGRESS NOTES Chief Complaint Chief Complaint CP ASSESSMENT AND PLAN: 1. NSTEMI s/p balloon angioplasty (08/09) AND CABG (08/13); recovering well. 2. HTN, HLD: cont 2ary prevention meds 3. DM2: HgbA1c 10; needs tighter control at home; well controlled here 4. Tobacco use: quit 5. Dispo: home when cleared by CV surgery History of Present Illness History of Present Illness feels well, recovering w/o difficulties. ambulating Vitals Vitals Vital Signs Date Time Temp Pulse Resp B/P (MAP) Pulse Ox O2 Delivery O2 Flow Rate FiO2 08/16/16 11:00 98.9 78 20 131/80 (97) 95 Room Air 98.9 08/15/16 23:59 2.0 Physical Exam General: Alert, Oriented X3, Cooperative Heart: Normal S1, Normal S2, Other Lungs: Clear Abdomen: Soft, No tenderness Extremities: Normal pulses Skin: Other Labs LABS Laboratory Tests Test 08/15/16 17:45 08/15/16 21:11 08/16/16 04:10 08/16/16 08:03 Glucose (Fingerstick) 123 mg/dL (70-99) 152 mg/dL (70-99) 193 mg/dL (70-99) White Blood Count 8.2 x10^3/uL (4.0-11.0) Red Blood Count 3.44 x10^6/uL (4.30-5.70) Hemoglobin 10.3 g/dL (13.0-17.5) Hematocrit 30.7 % (39.0-53.0) Mean Corpuscular Volume 89 fL (79-100) Mean Corpuscular Hemoglobin 30 pg (25-35) Mean Corpuscular Hemoglobin Concent 34 g/dL (31-37) Red Cell Distribution Width 13.8 % (11.5-14.5) Platelet Count 244 x10^3/uL (140-400) Sodium Level 138 mmol/L (136-145) Potassium Level 3.8 mmol/L (3.5-5.1) Chloride Level 103 mmol/L (98-107) Carbon Dioxide Level 27 mmol/L (21-32) Anion Gap 8 (6-14) Blood Urea Nitrogen 8 mg/dL (8-26) Creatinine 0.6 mg/dL (0.7-1.3) Estimated GFR (Cockcroft-Gault) 137.4 Glucose Level 116 mg/dL (70-99) Calcium Level 8.5 mg/dL (8.5-10.1) Magnesium Level 1.9 mg/dL (1.8-2.4) Test 08/16/16 12:13 Glucose (Fingerstick) 93 mg/dL (70-99) BRANDIN MESSER MD Aug 16, 2016 15:31
--- NOTE | 2016-08-16 15:56 | PDOC ---
PROGRESS NOTES Subjective Subjective feels good; no incisional pain; walking laps in the hallway Objective Objective Vital Signs Date Time Temp Pulse Resp B/P (MAP) Pulse Ox O2 Delivery O2 Flow Rate FiO2 08/16/16 15:00 98.7 83 20 132/74 (93) 93 Room Air 98.7 08/15/16 23:59 2.0 Intake and Output 08/16/16 06:59 Intake Total 1395 ml Output Total 1425 ml Balance -30 ml Intake Oral 1380 ml IV Total 15 ml Output Urine Total 1400 ml Chest Tube Drainage Total 25 ml Physical Exam Abdomen: Normal bowel sounds, Soft, No tenderness Heart: Normal S1, Normal S2, Other (tele: SR; no atrial dysrhythmias) Extremities: No edema General: Alert, Oriented X3, Cooperative HEENT: Atraumatic Lungs: Clear to auscultation MUSCULOSKELETAL: No deformity Neck: Supple Neuro: Normal speech Psych/Mental Status: Mood NL Skin: No rashes, Other (chest incision C/D/I; LLE incision C/D/I; no drainage or erythema at either site) Diagnosis ANGINA DUE TO: Acute SD (STEMI - inferior), Coronary artery disease Assessment Assessment Problems Medical Problems: (1) STEMI (ST elevation myocardial infarction) Status: Acute 1. s/p emergent CABG with SVG to RCA; POD #3 progressing well - wounds healing well no atrial dysrhythmias on anti-arrhythmic therapy CXR with small left effusion Plan Plan of Care 1. increase IS 2. Miralax tomorrow if no BM 3. continue walking 4. home later this week Comment Review of Relevant I have reviewed the following items rachel (where applicable) has been applied. Labs Laboratory Tests Test 08/14/16 16:20 08/14/16 17:54 08/14/16 19:07 08/14/16 20:21 Glucose (Fingerstick) 161 mg/dL (70-99) 116 mg/dL (70-99) 123 mg/dL (70-99) 135 mg/dL (70-99) Test 08/14/16 21:33 08/14/16 22:52 08/15/16 00:17 08/15/16 01:26 Glucose (Fingerstick) 188 mg/dL (70-99) 174 mg/dL (70-99) 136 mg/dL (70-99) 98 mg/dL (70-99) Test 08/15/16 02:36 08/15/16 03:43 08/15/16 05:01 08/15/16 06:09 Glucose (Fingerstick) 89 mg/dL (70-99) 129 mg/dL (70-99) 71 mg/dL (70-99) 199 mg/dL (70-99) Test 08/15/16 07:54 08/15/16 12:47 08/15/16 17:45 08/15/16 21:11 Glucose (Fingerstick) 141 mg/dL (70-99) 205 mg/dL (70-99) 123 mg/dL (70-99) 152 mg/dL (70-99) Test 08/16/16 04:10 08/16/16 08:03 08/16/16 12:13 White Blood Count 8.2 x10^3/uL (4.0-11.0) Red Blood Count 3.44 x10^6/uL (4.30-5.70) Hemoglobin 10.3 g/dL (13.0-17.5) Hematocrit 30.7 % (39.0-53.0) Mean Corpuscular Volume 89 fL (79-100) Mean Corpuscular Hemoglobin 30 pg (25-35) Mean Corpuscular Hemoglobin Concent 34 g/dL (31-37) Red Cell Distribution Width 13.8 % (11.5-14.5) Platelet Count 244 x10^3/uL (140-400) Sodium Level 138 mmol/L (136-145) Potassium Level 3.8 mmol/L (3.5-5.1) Chloride Level 103 mmol/L (98-107) Carbon Dioxide Level 27 mmol/L (21-32) Anion Gap 8 (6-14) Blood Urea Nitrogen 8 mg/dL (8-26) Creatinine 0.6 mg/dL (0.7-1.3) Estimated GFR (Cockcroft-Gault) 137.4 Glucose Level 116 mg/dL (70-99) Calcium Level 8.5 mg/dL (8.5-10.1) Magnesium Level 1.9 mg/dL (1.8-2.4) Glucose (Fingerstick) 193 mg/dL (70-99) 93 mg/dL (70-99) Laboratory Tests Test 08/15/16 17:45 08/15/16 21:11 08/16/16 04:10 08/16/16 08:03 Glucose (Fingerstick) 123 mg/dL (70-99) 152 mg/dL (70-99) 193 mg/dL (70-99) White Blood Count 8.2 x10^3/uL (4.0-11.0) Red Blood Count 3.44 x10^6/uL (4.30-5.70) Hemoglobin 10.3 g/dL (13.0-17.5) Hematocrit 30.7 % (39.0-53.0) Mean Corpuscular Volume 89 fL (79-100) Mean Corpuscular Hemoglobin 30 pg (25-35) Mean Corpuscular Hemoglobin Concent 34 g/dL (31-37) Red Cell Distribution Width 13.8 % (11.5-14.5) Platelet Count 244 x10^3/uL (140-400) Sodium Level 138 mmol/L (136-145) Potassium Level 3.8 mmol/L (3.5-5.1) Chloride Level 103 mmol/L (98-107) Carbon Dioxide Level 27 mmol/L (21-32) Anion Gap 8 (6-14) Blood Urea Nitrogen 8 mg/dL (8-26) Creatinine 0.6 mg/dL (0.7-1.3) Estimated GFR (Cockcroft-Gault) 137.4 Glucose Level 116 mg/dL (70-99) Calcium Level 8.5 mg/dL (8.5-10.1) Magnesium Level 1.9 mg/dL (1.8-2.4) Test 08/16/16 12:13 Glucose (Fingerstick) 93 mg/dL (70-99) Medications Current Medications Amiodarone HCl 900 mg/Dextrose 518 ml @ 0 mls/hr 1X ONCE IV ; Start 08/09/16 at 10:30; Stop 08/09/16 at 10:31; Status DC Heparin Sodium (Porcine) (Heparin Sodium) 4,000 unit 1X ONCE IV Last administered on 08/09/16t 10:14; Start 08/09/16 at 10:30; Stop 08/09/16 at 10:31 ; Status DC Heparin Sodium/ Dextrose 500 ml @ 0 mls/hr 1X ONCE IV Last administered on 12:45; Start 08/09/16 at 10:30; Stop 08/09/16 at 10:31; Status DC Sodium Chloride 1,000 ml @ 100 mls/hr Q10H IV ; Start 08/09/16 at 10:17; Stop 08/09/16 at 20:16; Status DC Fentanyl Citrate (Fentanyl 2ml Vial) 100 mcg STK-MED ONCE .ROUTE ; Start at 11:01; Stop 08/09/16 at 11:02; Status DC Midazolam HCl (Versed) 2 mg STK-MED ONCE .ROUTE ; Start 08/09/16 at 11:01; Stop 08/09/16 at 11:02; Status DC Heparin Sodium/ Sodium Chloride 1,000 ml @ As Directed STK-MED ONCE .ROUTE ; Start 08/09/16 at 11:02; Stop 08/09/16 at 11:03; Status DC Iodixanol (Visipaque 320) 100 ml STK-MED ONCE .ROUTE ; Start 08/09/16 at 11:02; Stop 08/09/16 at 11:03; Status DC Lidocaine HCl 20 ml STK-MED ONCE .ROUTE ; Start 08/09/16 at 11:02; Stop at 11:03; Status DC Heparin Sodium (Porcine) (Heparin Sodium) 10,000 unit STK-MED ONCE .ROUTE ; Start 08/09/16 at 11:06; Stop 08/09/16 at 11:07; Status DC Heparin Sodium/ Sodium Chloride 1,000 unit 1X ONCE IART Last administered on 12:04; Start 08/09/16 at 11:30; Stop 08/10/16 at 07:43; Status DC Midazolam HCl (Versed) 2 mg 1X ONCE IV Last administered on 08/09/16 11:30; Start 08/09/16 at 11:30; Stop 08/09/16 at 11:31; Status DC Fentanyl Citrate (Fentanyl 2ml Vial) 100 mcg 1X ONCE IV Last administered on 12:06; Start 08/09/16 at 11:30; Stop 08/09/16 at 11:31; Status DC Iodixanol (Visipaque 320) 100 ml 1X ONCE IART Last administered on 08/09/16 12:04; Start 08/09/16 at 11:30; Stop 08/09/16 at 11:31; Status DC Lidocaine HCl 20 ml 1X ONCE IJ Last administered on 08/09/16 12:04; Start at 11:30; Stop 08/09/16 at 11:31; Status DC Heparin Sodium (Porcine) (Heparin Sodium) 2,000 unit 1X ONCE IV Last administered on 08/09/16 12:08; Start 08/09/16 at 11:30; Stop 08/09/16 at 11:31 ; Status DC Tirofiban/Sodium Chloride 250 ml @ As Directed STK-MED ONCE IV ; Start at 11:21; Stop 08/09/16 at 11:22; Status DC Info (Do NOT chart on this entry -- for MONITORING) 1 each PRN DAILY PRN MC SEE COMMENTS; Start 08/09/16 at 11:30; Stop 08/11/16 at 11:29; Status DC Tirofiban/Sodium Chloride 100 ml @ 0 mls/hr 1X ONCE IV Last administered on 11:30; Start 08/09/16 at 11:30; Stop 08/09/16 at 11:31; Status DC Tirofiban/Sodium Chloride 250 ml @ 0 mls/hr CONT PRN IV PER PROTOCOL Last administered on 08/09/16 22:05; Start 08/09/16 at 11:30; Stop 08/10/16 at 05:29 ; Status DC Heparin Sodium/ Dextrose 500 ml @ 20 mls/hr CONT PRN IV SEE I/O RECORD Last administered on 08/13/16 08:15; Start 08/09/16 at 18:30; Stop 08/14/16 at 04:00 ; Status DC Heparin Sodium (Porcine) (Heparin Sodium) 2,300 unit PRN Q6HRS PRN IV FOR UFH LEVEL LESS THAN 0.2 Last administered on 08/09/16 18:37; Start 08/09/16 at 18: 30; Stop 08/14/16 at 08:56; Status DC Insulin Aspart (NovoLOG) 0-5 UNITS TIDWMEALS SQ Last administered on 08/10/16 07:34; Start 08/10/16 at 08:00; Stop 08/10/16 at 08:27; Status DC Dextrose (Dextrose 50%-Water Syringe) 12.5 gm PRN Q15MIN PRN IV SEE COMMENTS; Start 08/09/16 at 18:45; Stop 08/10/16 at 08:41; Status DC Ondansetron HCl (Zofran) 4 mg PRN Q6HRS PRN IV NAUSEA/VOMITING; Start 08/10/16 at 08:30; Stop 08/13/16 at 16:22; Status DC Acetaminophen (Tylenol) 650 mg PRN Q6HRS PRN PO pain; Start 08/10/16 at 08:30; Stop 08/13/16 at 16:19; Status DC Insulin Aspart (NovoLOG) 0-9 UNITS TIDWMEALS SQ Last administered on 08/16/16 08:17; Start 08/10/16 at 12:00 Dextrose (Dextrose 50%-Water Syringe) 12.5 gm PRN Q15MIN PRN IV SEE COMMENTS; Start 08/10/16 at 08:30; Stop 08/14/16 at 08:49; Status DC Amiodarone HCl (Cordarone) 200 mg DAILY PO Last administered on 08/15/16 07:45 ; Start 08/10/16 at 09:00; Stop 08/15/16 at 10:54; Status DC Aspirin (Children'S Aspirin) 81 mg DAILY PO Last administered on 08/10/16 10: 25; Start 08/10/16 at 09:00; Stop 08/10/16 at 17:45; Status DC Atorvastatin Calcium (Lipitor) 40 mg QHS PO Last administered on 08/15/16 21: 11; Start 08/10/16 at 21:00 Insulin Aspart (NovoLOG) 12 units TIDAC SQ Last administered on 08/10/16 11:43 ; Start 08/10/16 at 11:30; Stop 08/11/16 at 10:54; Status DC Metformin HCl (Glucophage) 1,000 mg BIDWMEALS PO Last administered on 10:26; Start 08/10/16 at 08:30; Stop 08/10/16 at 10:49; Status DC Metoprolol Tartrate (Lopressor) 50 mg BID PO Last administered on 08/13/16 08: 11; Start 08/10/16 at 09:00; Stop 08/13/16 at 16:22; Status DC Lisinopril (Prinivil) 20 mg DAILY PO Last administered on 08/10/16 10:25; Start 08/10/16 at 09:00; Stop 08/10/16 at 17:45; Status DC Insulin Detemir (Levemir) 32 units QHS SQ Last administered on 08/10/16 21:28 ; Start 08/10/16 at 21:00; Stop 08/11/16 at 10:54; Status DC Ticagrelor (Brilinta) 90 mg BID PO ; Start 08/10/16 at 09:00; Status Cancel Tirofiban/Sodium Chloride 250 ml @ 0 mls/hr CONT PRN IV PER PROTOCOL Last administered on 08/13/16 02:23; Start 08/10/16 at 09:15; Stop 08/13/16 at 10:15 ; Status DC Metoprolol Tartrate (Lopressor) 25 mg 1X ONCE PO ; Start 08/14/16 at 06:00; Stop 08/14/16 at 06:01; Status Cancel Cefazolin Sodium/ Dextrose 50 ml @ 100 mls/hr 1X ONCE IV ; Start 08/14/16 at 06:00; Stop 08/14/16 at 06:29; Status Cancel Insulin Aspart (NovoLOG) 15 units TIDAC SQ ; Start 08/11/16 at 11:30; Stop 08/11 at 11:39; Status DC Insulin Detemir (Levemir) 38 units QHS SQ ; Start 08/11/16 at 21:00; Stop at 21:00; Status DC Insulin Aspart (NovoLOG) 12 units TIDAC SQ Last administered on 08/12/16 09:01 ; Start 08/11/16 at 12:00; Stop 08/12/16 at 09:51; Status DC Insulin Detemir (Levemir) 32 units QHS SQ ; Start 08/11/16 at 21:00; Stop at 09:51; Status DC Ondansetron HCl (Zofran) 4 mg PRN Q6HRS PRN IV NAUSEA/VOMITING; Start 08/14/16 at 07:00; Stop 08/15/16 at 06:59; Status DC Fentanyl Citrate (Fentanyl 2ml Vial) 25 mcg PRN Q5MIN PRN IV MILD PAIN; Start 08/14/16 at 07:00; Stop 08/15/16 at 06:59; Status DC Fentanyl Citrate (Fentanyl 2ml Vial) 50 mcg PRN Q5MIN PRN IV MODERATE PAIN; Start 08/14/16 at 07:00; Stop 08/15/16 at 06:59; Status DC Morphine Sulfate 1 mg PRN Q10MIN PRN IV SEVERE PAIN Last administered on 17:47; Start 08/14/16 at 07:00; Stop 08/14/16 at 07:00; Status DC Ringer's Solution 1,000 ml @ 30 mls/hr Q24H IV ; Start 08/14/16 at 07:00; Stop 08/14/16 at 18:59; Status DC Lidocaine HCl 2 ml PRN 1X PRN ID PRIOR TO IV START; Start 08/14/16 at 07:00; Stop 08/15/16 at 06:59; Status DC Hydromorphone HCl (Dilaudid) 0.5 mg PRN Q10MIN PRN IV SEV PAIN, Second choice; Start 08/14/16 at 07:00; Stop 08/15/16 at 06:59; Status DC Prochlorperazine Edisylate (Compazine) 5 mg PACU PRN PRN IV NAUSEA, MRX1; Start 08/14/16 at 07:00; Stop 08/15/16 at 06:59; Status DC Insulin Aspart (NovoLOG) 20 units 1X ONCE SQ Last administered on 08/11/16 17 :41; Start 08/11/16 at 17:30; Stop 08/11/16 at 17:31; Status DC Insulin Aspart (NovoLOG) 15 units TIDAC SQ Last administered on 08/16/16 08:17 ; Start 08/12/16 at 11:30 Insulin Detemir (Levemir) 38 units QHS SQ Last administered on 08/15/16 21:17 ; Start 08/12/16 at 21:00 Aspirin (Ecotrin) 81 mg DAILYWBKFT PO Last administered on 08/13/16 08:11; Start 08/13/16 at 08:00; Stop 08/13/16 at 16:20; Status DC Heparin Sodium (Porcine) 94154 unit/Ringer's Solution 1,020 ml @ 1,020 mls/hr 1X PERIOP ONCE IRR ; Start 08/14/16 at 06:00; Stop 08/14/16 at 06:59; Status Cancel Potassium Chloride 70 meq/ Sodium Bicarbonate 12.5 meq/Lidocaine HCl 24 ml/ Parenteral Electrolytes 571.5 ml @ 571.5 mls/ hr 1X PERIOP ONCE IRR ; Start at 06:00; Stop 08/14/16 at 06:59; Status Cancel Potassium Chloride 15 meq/ Sodium Bicarbonate 12.5 meq/Parenteral Electrolytes 520 ml @ 520 mls/hr 1X PERIOP ONCE IRR ; Start 08/14/16 at 06:00; Stop at 06:59; Status Cancel Vancomycin HCl 1.5 gm/Sodium Chloride 500 ml @ 250 mls/hr 1X ONCE IV ; Start 08/14/16 at 06:00; Stop 08/14/16 at 07:59; Status UNV Zolpidem Tartrate (Ambien) 5 mg PRN QHS PRN PO INSOMNIA, MAY REPEAT IN 1HR; Start 08/13/16 at 10:30 Carvedilol (Coreg) 3.125 mg 1X ONCE PO ; Start 08/14/16 at 06:00; Stop at 07:45; Status DC Insulin Human Regular 150 unit/ Sodium Chloride 151.5 ml @ 0 mls/hr CONT PRN IV SEE I/O RECORD; Start 08/14/16 at 06:00; Status Cancel Vancomycin HCl 1.25 gm/Sodium Chloride 250 ml @ 166.667 mls/hr 1X ONCE IV ; Start 08/13/16 at 13:30; Stop 08/13/16 at 14:59; Status DC Morphine Sulfate 1 mg 1X ONCE IV Last administered on 08/13/16t 11:27; Start 08/13/16 at 11:30; Stop 08/13/16 at 11:31; Status DC Heparin Sodium (Porcine) 10131 unit/Ringer's Solution 1,020 ml @ 1,020 mls/hr 1X PERIOP ONCE IRR Last administered on 08/13/16t 13:56; Start 08/13/16 at 12: 00; Stop 08/13/16 at 12:59; Status DC Potassium Chloride 15 meq/ Sodium Bicarbonate 12.5 meq/Parenteral Electrolytes 520 ml @ 520 mls/hr 1X PERIOP ONCE IRR Last administered on 08/13/16t 14:26; Start 08/13/16 at 12:00; Stop 08/13/16 at 12:59; Status DC Potassium Chloride 70 meq/ Sodium Bicarbonate 12.5 meq/Lidocaine HCl 24 ml/ Parenteral Electrolytes 571.5 ml @ 571.5 mls/ hr 1X PERIOP ONCE IRR Last administered on 08/13/16t 14:26; Start 08/13/16 at 12:00; Stop 08/13/16 at 12:59 ; Status DC Phenylephrine HCl (Sam-Synephrine Inj) 10 mg STK-MED ONCE .ROUTE ; Start at 12:13; Stop 08/13/16 at 12:14; Status DC Ephedrine Sulfate 50 mg STK-MED ONCE IV ; Start 08/13/16 at 12:13; Stop at 12:14; Status DC Etomidate (Amidate) 20 mg STK-MED ONCE IV ; Start 08/13/16 at 12:13; Stop at 12:14; Status DC Lidocaine HCl (Xylocaine 2% Topical 5gm Tube) 5 shamika STK-MED ONCE TP ; Start at 12:13; Stop 08/13/16 at 12:14; Status DC Rocuronium Burley (Zemuron) 100 mg STK-MED ONCE .ROUTE ; Start 08/13/16 at 12: 14; Stop 08/13/16 at 12:15; Status DC Heparin Sodium (Porcine) 30,000 unit STK-MED ONCE .ROUTE ; Start 08/13/16 at 12: 16; Stop 08/13/16 at 12:17; Status DC Aminocaproic Acid (Amicar) 5,000 mg STK-MED ONCE IV ; Start 08/13/16 at 12:16; Stop 08/13/16 at 12:17; Status DC Nitroglycerin/ Dextrose 250 ml @ As Directed STK-MED ONCE IV ; Start 08/13/16 at 12:17; Stop 08/14/16 at 07:45; Status DC Sufentanil Citrate (Sufenta) 100 mcg STK-MED ONCE .ROUTE ; Start 08/13/16 at 12: 17; Stop 08/13/16 at 12:18; Status DC Midazolam HCl (Versed) 5 mg STK-MED ONCE .ROUTE ; Start 08/13/16 at 12:17; Stop 08/13/16 at 12:18; Status DC Fentanyl Citrate (Fentanyl 5ml Vial) 250 mcg STK-MED ONCE .ROUTE ; Start at 12:17; Stop 08/13/16 at 12:18; Status DC Heparin Sodium/ Sodium Chloride 1,000 ml @ As Directed STK-MED ONCE .ROUTE ; Start 08/13/16 at 12:19; Stop 08/13/16 at 12:20; Status DC Lidocaine HCl 20 ml STK-MED ONCE .ROUTE ; Start 08/13/16 at 12:19; Stop at 12:20; Status DC Iodixanol (Visipaque 320) 100 ml STK-MED ONCE .ROUTE ; Start 08/13/16 at 12:19; Stop 08/13/16 at 12:20; Status DC Succinylcholine Chloride (Anectine) 200 mg STK-MED ONCE .ROUTE ; Start 08/13/16 at 12:26; Stop 08/13/16 at 12:27; Status DC Fentanyl Citrate (Fentanyl 2ml Vial) 100 mcg STK-MED ONCE .ROUTE ; Start at 12:26; Stop 08/13/16 at 12:27; Status DC Midazolam HCl (Versed) 2 mg STK-MED ONCE .ROUTE ; Start 08/13/16 at 12:26; Stop 08/13/16 at 12:27; Status DC Phenylephrine HCl 1 mg STK-MED ONCE IV ; Start 08/13/16 at 12:26; Stop 08/13/16 at 12:27; Status DC Cellulose 1 each STK-MED ONCE .ROUTE Last administered on 08/13/16t 13:56; Start 08/13/16 at 12:26; Stop 08/13/16 at 12:27; Status DC Cefazolin Sodium/ Dextrose 50 ml @ As Directed STK-MED ONCE IV ; Start 08/13/16 at 12:27; Stop 08/13/16 at 12:28; Status DC Protamine Sulfate 50 mg STK-MED ONCE IV ; Start 08/13/16 at 12:27; Stop at 12:28; Status DC Aspirin (Aspirin) 300 mg STK-MED ONCE .ROUTE Last administered on 08/13/16 16: 18; Start 08/13/16 at 12:27; Stop 08/13/16 at 12:28; Status DC Mineral Oil (Muri-Lube) 10 ml STK-MED ONCE MC Last administered on 08/13/16 15 :10; Start 08/13/16 at 12:27; Stop 08/13/16 at 12:28; Status DC Heparin Sodium (Porcine) (Heparin Sodium) 10,000 unit STK-MED ONCE .ROUTE ; Start 08/13/16 at 12:29; Stop 08/13/16 at 12:30; Status DC Atropine Sulfate 0.5 mg STK-MED ONCE .ROUTE ; Start 08/13/16 at 12:30; Stop at 12:31; Status DC Nitroglycerin (Nitroglycerin) 200 mcg 1X ONCE IART Last administered on 12:45; Start 08/13/16 at 12:45; Stop 08/13/16 at 12:46; Status DC Heparin Sodium/ Sodium Chloride 1,000 unit 1X ONCE IART Last administered on 12:45; Start 08/13/16 at 12:45; Stop 08/13/16 at 12:46; Status DC Iodixanol (Visipaque 320) 100 ml 1X ONCE IART Last administered on 08/13/16 12:45; Start 08/13/16 at 12:45; Stop 08/13/16 at 12:46; Status DC Lidocaine HCl 20 ml 1X ONCE IJ Last administered on 08/13/16 12:45; Start at 12:45; Stop 08/13/16 at 12:46; Status DC Heparin Sodium (Porcine) (Heparin Sodium) 3,000 unit 1X ONCE IV ; Start at 12:45; Stop 08/13/16 at 12:46; Status DC Heparin Sodium/ Sodium Chloride 500 ml @ As Directed STK-MED ONCE .ROUTE ; Start 08/13/16 at 12:39; Stop 08/13/16 at 12:40; Status DC Nitroglycerin/ Dextrose 250 ml @ As Directed STK-MED ONCE IV ; Start 08/13/16 at 12:47; Stop 08/14/16 at 07:45; Status DC Rocuronium Burley (Zemuron) 100 mg STK-MED ONCE .ROUTE ; Start 08/13/16 at 14: 51; Stop 08/13/16 at 14:52; Status DC Protamine Sulfate 250 mg STK-MED ONCE IV ; Start 08/13/16 at 14:52; Stop at 14:53; Status DC Protamine Sulfate 50 mg STK-MED ONCE IV ; Start 08/13/16 at 15:05; Stop at 15:06; Status DC Epinephrine HCl (EPINEPHrine SYRINGE) 1 mg STK-MED ONCE .ROUTE ; Start 08/13/16 at 15:09; Stop 08/13/16 at 15:10; Status DC Midazolam HCl (Versed) 2 mg STK-MED ONCE .ROUTE ; Start 08/13/16 at 15:33; Stop 08/13/16 at 15:34; Status DC Lidocaine HCl (Lidocaine Pf 2% Vial) 5 ml STK-MED ONCE .ROUTE ; Start 08/13/16 at 15:38; Stop 08/13/16 at 15:39; Status DC Aminocaproic Acid (Amicar) 5,000 mg STK-MED ONCE IV ; Start 08/13/16 at 15:38; Stop 08/13/16 at 15:39; Status DC Mannitol (Mannitol) 12.5 g STK-MED ONCE .ROUTE ; Start 08/13/16 at 15:38; Stop 08/13/16 at 15:39; Status DC Calcium Chloride 1,000 mg STK-MED ONCE IV ; Start 08/13/16 at 15:38; Stop at 15:39; Status DC Albumin Human 100 ml @ As Directed STK-MED ONCE IV ; Start 08/13/16 at 15:38; Stop 08/13/16 at 15:39; Status DC Heparin Sodium (Porcine) 30,000 unit STK-MED ONCE .ROUTE ; Start 08/13/16 at 15: 39; Stop 08/13/16 at 15:40; Status DC Magnesium Sulfate 5 gm STK-MED ONCE .ROUTE ; Start 08/13/16 at 15:39; Stop 08/13 at 15:40; Status DC Desflurane (Suprane) 90 ml STK-MED ONCE IH ; Start 08/13/16 at 15:54; Stop 08/13 at 15:55; Status DC Midazolam HCl (Versed) 2 mg STK-MED ONCE .ROUTE ; Start 08/13/16 at 16:01; Stop 08/13/16 at 16:02; Status DC Rocuronium Burley (Zemuron) 50 mg STK-MED ONCE .ROUTE ; Start 08/13/16 at 16:08 ; Stop 08/13/16 at 16:09; Status DC Dextrose 1,000 ml @ 30 mls/hr Q24H IV ; Start 08/13/16 at 16:08; Stop 08/15/16 at 10:54; Status DC Albumin Human 250 ml @ 60 mls/hr PRN Q4HRS PRN IV SEE I/O RECORD Last administered on 08/13/16 18:22; Start 08/13/16 at 17:00; Stop 08/15/16 at 10:54 ; Status DC Insulin Human Regular 150 unit/ Sodium Chloride 151.5 ml @ 0 mls/hr CONT PRN PRN IV SEE I/O RECORD Last administered on 08/14/16 21:35; Start 08/13/16 at 16 :15 Dextrose (Dextrose 50%-Water Syringe) 25 gm PRN Q15MIN PRN IV LOW BLOOD SUGAR; Start 08/13/16 at 16:15 Nitroglycerin/ Dextrose 250 ml @ 0 mls/hr CONT PRN PRN IV SEE I/O RECORD; Start 08/13/16 at 16:15; Stop 08/14/16 at 07:45; Status DC Dopamine HCl/ Dextrose 250 ml @ 0 mls/hr CONT PRN PRN IV SEE I/O RECORD; Start 08/13/16 at 16:15; Stop 08/15/16 at 10:54; Status DC Amiodarone HCl 900 mg/Dextrose 518 ml @ 33.33 mls/ hr CONT PRN PRN IV RUNS OF VT; Start 08/13/16 at 16:15; Stop 08/15/16 at 10:54; Status DC Amiodarone HCl 150 mg/Dextrose 103 ml @ 200 mls/hr 1X PRN PRN IV [place]; Start at 16:15; Stop 08/15/16 at 10:54; Status DC Info 1 ea CONT PRN PRN MC SEE COMMENTS; Start 08/13/16 at 16:15 Info 1 ea CONT PRN PRN MC SEE COMMENTS; Start 08/13/16 at 16:15; Stop 08/16/16 at 07:56; Status DC Magnesium Sulfate/ Dextrose 100 ml @ 100 mls/hr PRN DAILY PRN IV FOR MAG < 2.2 ; Start 08/13/16 at 16:15 Famotidine (Pepcid) 20 mg BID IVP Last administered on 08/15/16 07:45; Start 08/13/16 at 21:00; Stop 08/15/16 at 10:54; Status DC Ondansetron HCl (Zofran) 4 mg PRN Q4HRS PRN IV NAUSEA/VOMITING; Start 08/13/16 at 16:15 Morphine Sulfate 2 mg PRN Q1HR PRN IV PAIN Last administered on 08/15/16 02:39 ; Start 08/13/16 at 16:15 Acetaminophen (Tylenol) 650 mg PRN Q4HRS PRN PO MILD PAIN / TEMP; Start at 16:15 Acetaminophen (Acetaminophen Supp) 650 mg PRN Q4HRS PRN [place] MILD PAIN / TEMP; Start 08/13/16 at 16:15; Stop 08/15/16 at 10:54; Status DC Meperidine HCl (Demerol) 12.5 mg PRN Q15MIN PRN IV SHIVERING Last administered on 08/13/16 17:28; Start 08/13/16 at 16:15; Stop 08/14/16 at 07:45; Status DC Propofol 100 ml @ 0 mls/hr CONT PRN PRN IV POSTOP SEDATION UNTIL EXTUBATE; Start 08/13/16 at 16:15; Stop 08/14/16 at 07:45; Status DC Senna/Docusate Sodium (Senna Plus) 1 tab BID PO Last administered on 08/16/16 08:11; Start 08/14/16 at 09:00 Bisacodyl (Dulcolax Supp) 10 mg PRN DAILY PRN [place] NO BOWEL MOVEMENT; Start 08/13 at 16:15 Chlorhexidine Gluconate (Peridex) 15 ml BID MM ; Start 08/13/16 at 21:00; Stop 08/14/16 at 08:43; Status DC Aspirin (Ecotrin) 325 mg DAILYWBKFT PO Last administered on 08/16/16 08:10; Start 08/14/16 at 08:00 Aspirin (Aspirin) 300 mg PRN DAILY PRN [place] IF UNABLE TO TAKE PO; Start 08/13/16 at 16:15; Stop 08/15/16 at 10:54; Status DC Albuterol Sulfate (Ventolin Neb Soln) 2.5 mg PRN Q4HRS PRN NEB SHORTNESS OF BREATH; Start 08/13/16 at 16:15 Metoprolol Tartrate (Lopressor) 25 mg BID PO ; Start 08/14/16 at 09:00; Stop at 09:04; Status DC Nicardipine HCl 50 mg/Sodium Chloride 270 ml @ 0 mls/hr CONT PRN PRN IV PER PROTOCOL; Start 08/13/16 at 16:15; Stop 08/14/16 at 07:45; Status DC Clevidipine 100 ml @ 0 mls/hr CONT PRN IV PER PROTOCOL; Start 08/13/16 at 16:15 ; Stop 08/14/16 at 07:45; Status DC Oxycodone/ Acetaminophen (Percocet 5/325) 1 tab PRN Q4HRS PRN PO MILD PAIN Last administered on 08/15/16 22:44; Start 08/13/16 at 16:15 Oxycodone/ Acetaminophen (Percocet 5/325) 2 tab PRN Q4HRS PRN PO MODERATE PAIN , SEVERE PAIN Last administered on 08/16/16 03:45; Start 08/13/16 at 16:15 Cefazolin Sodium/ Dextrose 50 ml @ 100 mls/hr Q8H IV Last administered on 08/15 06:07; Start 08/13/16 at 22:00; Stop 08/15/16 at 06:29; Status DC Lidocaine HCl 30 ml STK-MED ONCE .ROUTE ; Start 08/13/16 at 17:10; Stop at 17:11; Status DC Morphine Sulfate 1 mg PRN Q10MIN PRN IV SEVERE PAIN Last administered on 14:01; Start 08/13/16 at 18:00 Potassium Chloride 50 ml @ 50 mls/hr 1X ONCE IV Last administered on 19:08; Start 08/13/16 at 18:15; Stop 08/13/16 at 19:14; Status DC Lidocaine HCl 30 ml STK-MED ONCE .ROUTE ; Start 08/13/16 at 17:00; Stop at 07:12; Status DC Amiodarone HCl (Cordarone) 400 mg BID PO Last administered on 08/16/16 08:20; Start 08/15/16 at 09:00 Metoprolol Tartrate (Lopressor) 12.5 mg BID PO Last administered on 08/16/16 08:21; Start 08/15/16 at 09:00 Throat Lozenges (Cepacol Sore Throat Lozenge) 1 lien PRN Q2HRS PRN PO SORE THROAT; Start 08/15/16 at 09:00 Al Hydroxide/Mg Hydroxide (Mylanta Plus Xs) 30 ml PRN Q4HRS PRN PO HEARTBURN / GAS; Start 08/15/16 at 09:00 Magnesium Hydroxide (Milk Of Magnesia) 2,400 mg PRN DAILY PRN PO CONSTIPATION; Start 08/15/16 at 09:00 Nitroglycerin (Nitrostat) 0.4 mg PRN Q5MIN PRN SL CHEST PAIN; Start 08/15/16 at 09:00 Famotidine (Pepcid) 20 mg BID PO Last administered on 08/16/16 08:11; Start at 21:00 Potassium Chloride (Klor-Con) 40 meq 1X ONCE PO Last administered on 08:11; Start 08/16/16 at 08:30; Stop 08/16/16 at 08:31; Status DC Active Scripts Active Brilinta (Ticagrelor) 90 Mg Tablet 90 Mg PO BID 30 Days Atorvastatin Calcium 40 Mg Tablet 40 Mg PO QHS 30 Days Aspirin Ec (Aspirin) 81 Mg Tablet.dr 81 Mg PO DAILYWBKFT 30 Days Amiodarone Hcl 200 Mg Tablet 200 Mg PO DAILY 30 Days Reported Metoprolol Tartrate 50 Mg Tablet 1 Tab PO BID NITROGLYCERIN SubLingual (Nitroglycerin) 0.4 Mg Tab.subl 1 Tab SL UD Novolog Flexpen (Insulin Aspart) 100 Unit/1 Ml Insuln.pen 12 Unit SQ TIDAC Metformin Hcl 1,000 Mg Tablet 1,000 Mg PO BIDWMEALS Lantus Solostar (Insulin Glargine,Hum.rec.anlog) 100 Unit/1 Ml Insuln.pen 32 Unit SQ QHS Enalapril Maleate 10 Mg Tablet 1 Tab PO DAILY Atorvastatin Calcium 40 Mg Tablet 1 Tab PO QHS Aspirin 81 Mg Tab.chew 1 Tab PO DAILY Vitals/I & O Vital Sign - Last 24 Hours 08/15/16 08/15/16 08/15/16 08/15/16 16:00 16:16 17:16 18:45 Temp 98.4 98.4 Pulse 92 Resp 15 17 B/P (MAP) 133/78 (96) Pulse Ox 96 96 94 O2 Delivery Room Air Room Air Room Air Room Air 08/15/16 08/15/16 08/15/16 08/15/16 20:00 21:11 21:13 23:00 Temp 98.9 98.9 Pulse 92 92 83 Resp 18 B/P (MAP) 133/78 133/78 133/71 (91) Pulse Ox 96 O2 Delivery Room Air Room Air O2 Flow Rate 2.0 08/15/16 08/16/16 08/16/16 08/16/16 23:59 03:10 07:00 08:20 Temp 98.5 98.9 98.5 98.9 Pulse 82 82 86 Resp 18 20 B/P (MAP) 118/72 (87) 109/64 (79) 109/64 Pulse Ox 93 91 O2 Delivery Room Air Room Air Room Air O2 Flow Rate 2.0 08/16/16 08/16/16 08/16/16 08:21 11:00 15:00 Temp 98.9 98.7 98.9 98.7 Pulse 86 78 83 Resp 20 20 B/P (MAP) 109/64 131/80 (97) 132/74 (93) Pulse Ox 95 93 O2 Delivery Room Air Room Air Intake and Output 08/15/16 08/15/16 08/16/16 14:59 22:59 06:59 Intake Total 935 ml 100 ml 360 ml Output Total 550 ml 875 ml Balance 385 ml 100 ml -515 ml LEANNE CROOK APRN Aug 16, 2016 15:56
[2016-08-16 19:59] VITALS: BP 135/83
[2016-08-16] MEDS: ATORVASTATIN CALCIUM 40 MG TABLET. PO SCH (21:00)
[2016-08-16] MEDS: INSULIN DETEMIR 300 UNITS/3 ML INSULN.PEN. SQ SCH (21:08)
[2016-08-16 22:58] VITALS: BP 120/72
[2016-08-17] MEDS: oxyCODONE/APAP 5/325 1 TAB TABLET PO PRN ×2 (00:56→07:20)
[2016-08-17 02:52] VITALS: BP 124/78
[2016-08-17 07:00] VITALS: BP 129/78
[2016-08-17] MEDS: ASPIRIN ENTERIC COATED 325 MG TABLET.DR. PO SCH (07:20)
[2016-08-17] MEDS: INSULIN ASPART 300 UNITS/3 ML INSULN.PEN SQ SCH ×4 (07:30→12:14)
--- NOTE | 2016-08-17 08:21 | PDOC ---
PROGRESS NOTES Subjective Subjective feels well; walking laps in the hallway Objective Objective Vital Signs Date Time Temp Pulse Resp B/P (MAP) Pulse Ox O2 Delivery O2 Flow Rate FiO2 08/17/16 07:35 Room Air 08/17/16 07:20 96 08/17/16 02:52 99.2 78 18 124/78 (93) 99.2 08/16/16 20:00 2.0 Intake and Output 08/17/16 07:00 Intake Total 0 ml Balance 0 ml Intake Oral 0 ml # Voids 2 Physical Exam Abdomen: Normal bowel sounds, Soft, No tenderness Heart: Normal S1, Normal S2, Other (tele: SR; no atrial dysrhythmias) Extremities: No edema, Normal pulses General: Alert, Oriented X3, Cooperative HEENT: Atraumatic Lungs: Clear to auscultation MUSCULOSKELETAL: No deformity Neck: Supple Neuro: Normal speech Psych/Mental Status: Mental status NL, Mood NL Skin: Other (chest and LLE incisions healing well) Assessment Assessment Problems Medical Problems: (1) STEMI (ST elevation myocardial infarction) Status: Acute 1. s/p emergent CABG X 1, POD#4 progressing without complications no atrial or ventricular dysrhythmias wounds healing well Plan Plan of Care 1. may discharge when agreeable with other services 2. increase metoprolol to 25 mg BID as SBP now > 130 3. daily aspirin indefinitely 4. f/u with CTS in 3 weeks with CXR prior 5. anti-arrhythmics for VT per cardiology Comment Review of Relevant I have reviewed the following items rachel (where applicable) has been applied. Labs Laboratory Tests Test 08/15/16 12:47 08/15/16 17:45 08/15/16 21:11 08/16/16 04:10 Glucose (Fingerstick) 205 mg/dL (70-99) 123 mg/dL (70-99) 152 mg/dL (70-99) White Blood Count 8.2 x10^3/uL (4.0-11.0) Red Blood Count 3.44 x10^6/uL (4.30-5.70) Hemoglobin 10.3 g/dL (13.0-17.5) Hematocrit 30.7 % (39.0-53.0) Mean Corpuscular Volume 89 fL (79-100) Mean Corpuscular Hemoglobin 30 pg (25-35) Mean Corpuscular Hemoglobin Concent 34 g/dL (31-37) Red Cell Distribution Width 13.8 % (11.5-14.5) Platelet Count 244 x10^3/uL (140-400) Sodium Level 138 mmol/L (136-145) Potassium Level 3.8 mmol/L (3.5-5.1) Chloride Level 103 mmol/L (98-107) Carbon Dioxide Level 27 mmol/L (21-32) Anion Gap 8 (6-14) Blood Urea Nitrogen 8 mg/dL (8-26) Creatinine 0.6 mg/dL (0.7-1.3) Estimated GFR (Cockcroft-Gault) 137.4 Glucose Level 116 mg/dL (70-99) Calcium Level 8.5 mg/dL (8.5-10.1) Magnesium Level 1.9 mg/dL (1.8-2.4) Test 08/16/16 08:03 08/16/16 12:13 08/16/16 17:23 08/16/16 21:02 Glucose (Fingerstick) 193 mg/dL (70-99) 93 mg/dL (70-99) 145 mg/dL (70-99) 205 mg/dL (70-99) Laboratory Tests Test 08/16/16 12:13 08/16/16 17:23 08/16/16 21:02 Glucose (Fingerstick) 93 mg/dL (70-99) 145 mg/dL (70-99) 205 mg/dL (70-99) Medications Current Medications Amiodarone HCl 900 mg/Dextrose 518 ml @ 0 mls/hr 1X ONCE IV ; Start 08/09/16 at 10:30; Stop 08/09/16 at 10:31; Status DC Heparin Sodium (Porcine) (Heparin Sodium) 4,000 unit 1X ONCE IV Last administered on 08/09/16 10:14; Start 08/09/16 at 10:30; Stop 08/09/16 at 10:31 ; Status DC Heparin Sodium/ Dextrose 500 ml @ 0 mls/hr 1X ONCE IV Last administered on 12:45; Start 08/09/16 at 10:30; Stop 08/09/16 at 10:31; Status DC Sodium Chloride 1,000 ml @ 100 mls/hr Q10H IV ; Start 08/09/16 at 10:17; Stop 08/09/16 at 20:16; Status DC Fentanyl Citrate (Fentanyl 2ml Vial) 100 mcg STK-MED ONCE .ROUTE ; Start at 11:01; Stop 08/09/16 at 11:02; Status DC Midazolam HCl (Versed) 2 mg STK-MED ONCE .ROUTE ; Start 08/09/16 at 11:01; Stop 08/09/16 at 11:02; Status DC Heparin Sodium/ Sodium Chloride 1,000 ml @ As Directed STK-MED ONCE .ROUTE ; Start 08/09/16 at 11:02; Stop 08/09/16 at 11:03; Status DC Iodixanol (Visipaque 320) 100 ml STK-MED ONCE .ROUTE ; Start 08/09/16 at 11:02; Stop 08/09/16 at 11:03; Status DC Lidocaine HCl 20 ml STK-MED ONCE .ROUTE ; Start 08/09/16 at 11:02; Stop at 11:03; Status DC Heparin Sodium (Porcine) (Heparin Sodium) 10,000 unit STK-MED ONCE .ROUTE ; Start 08/09/16 at 11:06; Stop 08/09/16 at 11:07; Status DC Heparin Sodium/ Sodium Chloride 1,000 unit 1X ONCE IART Last administered on 12:04; Start 08/09/16 at 11:30; Stop 08/10/16 at 07:43; Status DC Midazolam HCl (Versed) 2 mg 1X ONCE IV Last administered on 08/09/16 11:30; Start 08/09/16 at 11:30; Stop 08/09/16 at 11:31; Status DC Fentanyl Citrate (Fentanyl 2ml Vial) 100 mcg 1X ONCE IV Last administered on 12:06; Start 08/09/16 at 11:30; Stop 08/09/16 at 11:31; Status DC Iodixanol (Visipaque 320) 100 ml 1X ONCE IART Last administered on 08/09/16 12:04; Start 08/09/16 at 11:30; Stop 08/09/16 at 11:31; Status DC Lidocaine HCl 20 ml 1X ONCE IJ Last administered on 08/09/16 12:04; Start at 11:30; Stop 08/09/16 at 11:31; Status DC Heparin Sodium (Porcine) (Heparin Sodium) 2,000 unit 1X ONCE IV Last administered on 08/09/16 12:08; Start 08/09/16 at 11:30; Stop 08/09/16 at 11:31 ; Status DC Tirofiban/Sodium Chloride 250 ml @ As Directed STK-MED ONCE IV ; Start at 11:21; Stop 08/09/16 at 11:22; Status DC Info (Do NOT chart on this entry -- for MONITORING) 1 each PRN DAILY PRN MC SEE COMMENTS; Start 08/09/16 at 11:30; Stop 08/11/16 at 11:29; Status DC Tirofiban/Sodium Chloride 100 ml @ 0 mls/hr 1X ONCE IV Last administered on 11:30; Start 08/09/16 at 11:30; Stop 08/09/16 at 11:31; Status DC Tirofiban/Sodium Chloride 250 ml @ 0 mls/hr CONT PRN IV PER PROTOCOL Last administered on 08/09/16 22:05; Start 08/09/16 at 11:30; Stop 08/10/16 at 05:29 ; Status DC Heparin Sodium/ Dextrose 500 ml @ 20 mls/hr CONT PRN IV SEE I/O RECORD Last administered on 08/13/16 08:15; Start 08/09/16 at 18:30; Stop 08/14/16 at 04:00 ; Status DC Heparin Sodium (Porcine) (Heparin Sodium) 2,300 unit PRN Q6HRS PRN IV FOR UFH LEVEL LESS THAN 0.2 Last administered on 08/09/16 18:37; Start 08/09/16 at 18: 30; Stop 08/14/16 at 08:56; Status DC Insulin Aspart (NovoLOG) 0-5 UNITS TIDWMEALS SQ Last administered on 08/10/16 07:34; Start 08/10/16 at 08:00; Stop 08/10/16 at 08:27; Status DC Dextrose (Dextrose 50%-Water Syringe) 12.5 gm PRN Q15MIN PRN IV SEE COMMENTS; Start 08/09/16 at 18:45; Stop 08/10/16 at 08:41; Status DC Ondansetron HCl (Zofran) 4 mg PRN Q6HRS PRN IV NAUSEA/VOMITING; Start 08/10/16 at 08:30; Stop 08/13/16 at 16:22; Status DC Acetaminophen (Tylenol) 650 mg PRN Q6HRS PRN PO pain; Start 08/10/16 at 08:30; Stop 08/13/16 at 16:19; Status DC Insulin Aspart (NovoLOG) 0-9 UNITS TIDWMEALS SQ Last administered on 08/16/16 08:17; Start 08/10/16 at 12:00 Dextrose (Dextrose 50%-Water Syringe) 12.5 gm PRN Q15MIN PRN IV SEE COMMENTS; Start 08/10/16 at 08:30; Stop 08/14/16 at 08:49; Status DC Amiodarone HCl (Cordarone) 200 mg DAILY PO Last administered on 08/15/16 07:45 ; Start 08/10/16 at 09:00; Stop 08/15/16 at 10:54; Status DC Aspirin (Children'S Aspirin) 81 mg DAILY PO Last administered on 08/10/16 10: 25; Start 08/10/16 at 09:00; Stop 08/10/16 at 17:45; Status DC Atorvastatin Calcium (Lipitor) 40 mg QHS PO Last administered on 08/16/16 21: 00; Start 08/10/16 at 21:00 Insulin Aspart (NovoLOG) 12 units TIDAC SQ Last administered on 08/10/16 11:43 ; Start 08/10/16 at 11:30; Stop 08/11/16 at 10:54; Status DC Metformin HCl (Glucophage) 1,000 mg BIDWMEALS PO Last administered on 10:26; Start 08/10/16 at 08:30; Stop 08/10/16 at 10:49; Status DC Metoprolol Tartrate (Lopressor) 50 mg BID PO Last administered on 08/13/16 08: 11; Start 08/10/16 at 09:00; Stop 08/13/16 at 16:22; Status DC Lisinopril (Prinivil) 20 mg DAILY PO Last administered on 08/10/16 10:25; Start 08/10/16 at 09:00; Stop 08/10/16 at 17:45; Status DC Insulin Detemir (Levemir) 32 units QHS SQ Last administered on 08/10/16 21:28 ; Start 08/10/16 at 21:00; Stop 08/11/16 at 10:54; Status DC Ticagrelor (Brilinta) 90 mg BID PO ; Start 08/10/16 at 09:00; Status Cancel Tirofiban/Sodium Chloride 250 ml @ 0 mls/hr CONT PRN IV PER PROTOCOL Last administered on 08/13/16 02:23; Start 08/10/16 at 09:15; Stop 08/13/16 at 10:15 ; Status DC Metoprolol Tartrate (Lopressor) 25 mg 1X ONCE PO ; Start 08/14/16 at 06:00; Stop 08/14/16 at 06:01; Status Cancel Cefazolin Sodium/ Dextrose 50 ml @ 100 mls/hr 1X ONCE IV ; Start 08/14/16 at 06:00; Stop 08/14/16 at 06:29; Status Cancel Insulin Aspart (NovoLOG) 15 units TIDAC SQ ; Start 08/11/16 at 11:30; Stop 08/11 at 11:39; Status DC Insulin Detemir (Levemir) 38 units QHS SQ ; Start 08/11/16 at 21:00; Stop at 21:00; Status DC Insulin Aspart (NovoLOG) 12 units TIDAC SQ Last administered on 08/12/16 09:01 ; Start 08/11/16 at 12:00; Stop 08/12/16 at 09:51; Status DC Insulin Detemir (Levemir) 32 units QHS SQ ; Start 08/11/16 at 21:00; Stop at 09:51; Status DC Ondansetron HCl (Zofran) 4 mg PRN Q6HRS PRN IV NAUSEA/VOMITING; Start 08/14/16 at 07:00; Stop 08/15/16 at 06:59; Status DC Fentanyl Citrate (Fentanyl 2ml Vial) 25 mcg PRN Q5MIN PRN IV MILD PAIN; Start 08/14/16 at 07:00; Stop 08/15/16 at 06:59; Status DC Fentanyl Citrate (Fentanyl 2ml Vial) 50 mcg PRN Q5MIN PRN IV MODERATE PAIN; Start 08/14/16 at 07:00; Stop 08/15/16 at 06:59; Status DC Morphine Sulfate 1 mg PRN Q10MIN PRN IV SEVERE PAIN Last administered on 17:47; Start 08/14/16 at 07:00; Stop 08/14/16 at 07:00; Status DC Ringer's Solution 1,000 ml @ 30 mls/hr Q24H IV ; Start 08/14/16 at 07:00; Stop 08/14/16 at 18:59; Status DC Lidocaine HCl 2 ml PRN 1X PRN ID PRIOR TO IV START; Start 08/14/16 at 07:00; Stop 08/15/16 at 06:59; Status DC Hydromorphone HCl (Dilaudid) 0.5 mg PRN Q10MIN PRN IV SEV PAIN, Second choice; Start 08/14/16 at 07:00; Stop 08/15/16 at 06:59; Status DC Prochlorperazine Edisylate (Compazine) 5 mg PACU PRN PRN IV NAUSEA, MRX1; Start 08/14/16 at 07:00; Stop 08/15/16 at 06:59; Status DC Insulin Aspart (NovoLOG) 20 units 1X ONCE SQ Last administered on 08/11/16 17 :41; Start 08/11/16 at 17:30; Stop 08/11/16 at 17:31; Status DC Insulin Aspart (NovoLOG) 15 units TIDAC SQ Last administered on 08/16/16 08:17 ; Start 08/12/16 at 11:30 Insulin Detemir (Levemir) 38 units QHS SQ Last administered on 08/16/16 21:08 ; Start 08/12/16 at 21:00 Aspirin (Ecotrin) 81 mg DAILYWBKFT PO Last administered on 08/13/16 08:11; Start 08/13/16 at 08:00; Stop 08/13/16 at 16:20; Status DC Heparin Sodium (Porcine) 02763 unit/Ringer's Solution 1,020 ml @ 1,020 mls/hr 1X PERIOP ONCE IRR ; Start 08/14/16 at 06:00; Stop 08/14/16 at 06:59; Status Cancel Potassium Chloride 70 meq/ Sodium Bicarbonate 12.5 meq/Lidocaine HCl 24 ml/ Parenteral Electrolytes 571.5 ml @ 571.5 mls/ hr 1X PERIOP ONCE IRR ; Start at 06:00; Stop 08/14/16 at 06:59; Status Cancel Potassium Chloride 15 meq/ Sodium Bicarbonate 12.5 meq/Parenteral Electrolytes 520 ml @ 520 mls/hr 1X PERIOP ONCE IRR ; Start 08/14/16 at 06:00; Stop at 06:59; Status Cancel Vancomycin HCl 1.5 gm/Sodium Chloride 500 ml @ 250 mls/hr 1X ONCE IV ; Start 08/14/16 at 06:00; Stop 08/14/16 at 07:59; Status UNV Zolpidem Tartrate (Ambien) 5 mg PRN QHS PRN PO INSOMNIA, MAY REPEAT IN 1HR Last administered on 08/17/16 00:56; Start 08/13/16 at 10:30 Carvedilol (Coreg) 3.125 mg 1X ONCE PO ; Start 08/14/16 at 06:00; Stop at 07:45; Status DC Insulin Human Regular 150 unit/ Sodium Chloride 151.5 ml @ 0 mls/hr CONT PRN IV SEE I/O RECORD; Start 08/14/16 at 06:00; Status Cancel Vancomycin HCl 1.25 gm/Sodium Chloride 250 ml @ 166.667 mls/hr 1X ONCE IV ; Start 08/13/16 at 13:30; Stop 08/13/16 at 14:59; Status DC Morphine Sulfate 1 mg 1X ONCE IV Last administered on 08/13/16 11:27; Start 08/13/16 at 11:30; Stop 08/13/16 at 11:31; Status DC Heparin Sodium (Porcine) 94104 unit/Ringer's Solution 1,020 ml @ 1,020 mls/hr 1X PERIOP ONCE IRR Last administered on 08/13/16 13:56; Start 08/13/16 at 12: 00; Stop 08/13/16 at 12:59; Status DC Potassium Chloride 15 meq/ Sodium Bicarbonate 12.5 meq/Parenteral Electrolytes 520 ml @ 520 mls/hr 1X PERIOP ONCE IRR Last administered on 08/13/16 14:26; Start 08/13/16 at 12:00; Stop 08/13/16 at 12:59; Status DC Potassium Chloride 70 meq/ Sodium Bicarbonate 12.5 meq/Lidocaine HCl 24 ml/ Parenteral Electrolytes 571.5 ml @ 571.5 mls/ hr 1X PERIOP ONCE IRR Last administered on 08/13/16t 14:26; Start 08/13/16 at 12:00; Stop 08/13/16 at 12:59 ; Status DC Phenylephrine HCl (Sam-Synephrine Inj) 10 mg STK-MED ONCE .ROUTE ; Start at 12:13; Stop 08/13/16 at 12:14; Status DC Ephedrine Sulfate 50 mg STK-MED ONCE IV ; Start 08/13/16 at 12:13; Stop at 12:14; Status DC Etomidate (Amidate) 20 mg STK-MED ONCE IV ; Start 08/13/16 at 12:13; Stop at 12:14; Status DC Lidocaine HCl (Xylocaine 2% Topical 5gm Tube) 5 shamika STK-MED ONCE TP ; Start at 12:13; Stop 08/13/16 at 12:14; Status DC Rocuronium Jewell (Zemuron) 100 mg STK-MED ONCE .ROUTE ; Start 08/13/16 at 12: 14; Stop 08/13/16 at 12:15; Status DC Heparin Sodium (Porcine) 30,000 unit STK-MED ONCE .ROUTE ; Start 08/13/16 at 12: 16; Stop 08/13/16 at 12:17; Status DC Aminocaproic Acid (Amicar) 5,000 mg STK-MED ONCE IV ; Start 08/13/16 at 12:16; Stop 08/13/16 at 12:17; Status DC Nitroglycerin/ Dextrose 250 ml @ As Directed STK-MED ONCE IV ; Start 08/13/16 at 12:17; Stop 08/14/16 at 07:45; Status DC Sufentanil Citrate (Sufenta) 100 mcg STK-MED ONCE .ROUTE ; Start 08/13/16 at 12: 17; Stop 08/13/16 at 12:18; Status DC Midazolam HCl (Versed) 5 mg STK-MED ONCE .ROUTE ; Start 08/13/16 at 12:17; Stop 08/13/16 at 12:18; Status DC Fentanyl Citrate (Fentanyl 5ml Vial) 250 mcg STK-MED ONCE .ROUTE ; Start at 12:17; Stop 08/13/16 at 12:18; Status DC Heparin Sodium/ Sodium Chloride 1,000 ml @ As Directed STK-MED ONCE .ROUTE ; Start 08/13/16 at 12:19; Stop 08/13/16 at 12:20; Status DC Lidocaine HCl 20 ml STK-MED ONCE .ROUTE ; Start 08/13/16 at 12:19; Stop at 12:20; Status DC Iodixanol (Visipaque 320) 100 ml STK-MED ONCE .ROUTE ; Start 08/13/16 at 12:19; Stop 08/13/16 at 12:20; Status DC Succinylcholine Chloride (Anectine) 200 mg STK-MED ONCE .ROUTE ; Start 08/13/16 at 12:26; Stop 08/13/16 at 12:27; Status DC Fentanyl Citrate (Fentanyl 2ml Vial) 100 mcg STK-MED ONCE .ROUTE ; Start at 12:26; Stop 08/13/16 at 12:27; Status DC Midazolam HCl (Versed) 2 mg STK-MED ONCE .ROUTE ; Start 08/13/16 at 12:26; Stop 08/13/16 at 12:27; Status DC Phenylephrine HCl 1 mg STK-MED ONCE IV ; Start 08/13/16 at 12:26; Stop 08/13/16 at 12:27; Status DC Cellulose 1 each STK-MED ONCE .ROUTE Last administered on 08/13/16 13:56; Start 08/13/16 at 12:26; Stop 08/13/16 at 12:27; Status DC Cefazolin Sodium/ Dextrose 50 ml @ As Directed STK-MED ONCE IV ; Start 08/13/16 at 12:27; Stop 08/13/16 at 12:28; Status DC Protamine Sulfate 50 mg STK-MED ONCE IV ; Start 08/13/16 at 12:27; Stop at 12:28; Status DC Aspirin (Aspirin) 300 mg STK-MED ONCE .ROUTE Last administered on 08/13/16 16: 18; Start 08/13/16 at 12:27; Stop 08/13/16 at 12:28; Status DC Mineral Oil (Muri-Lube) 10 ml STK-MED ONCE MC Last administered on 08/13/16 15 :10; Start 08/13/16 at 12:27; Stop 08/13/16 at 12:28; Status DC Heparin Sodium (Porcine) (Heparin Sodium) 10,000 unit STK-MED ONCE .ROUTE ; Start 08/13/16 at 12:29; Stop 08/13/16 at 12:30; Status DC Atropine Sulfate 0.5 mg STK-MED ONCE .ROUTE ; Start 08/13/16 at 12:30; Stop at 12:31; Status DC Nitroglycerin (Nitroglycerin) 200 mcg 1X ONCE IART Last administered on 12:45; Start 08/13/16 at 12:45; Stop 08/13/16 at 12:46; Status DC Heparin Sodium/ Sodium Chloride 1,000 unit 1X ONCE IART Last administered on 12:45; Start 08/13/16 at 12:45; Stop 08/13/16 at 12:46; Status DC Iodixanol (Visipaque 320) 100 ml 1X ONCE IART Last administered on 08/13/16 12:45; Start 08/13/16 at 12:45; Stop 08/13/16 at 12:46; Status DC Lidocaine HCl 20 ml 1X ONCE IJ Last administered on 08/13/16 12:45; Start at 12:45; Stop 08/13/16 at 12:46; Status DC Heparin Sodium (Porcine) (Heparin Sodium) 3,000 unit 1X ONCE IV ; Start at 12:45; Stop 08/13/16 at 12:46; Status DC Heparin Sodium/ Sodium Chloride 500 ml @ As Directed STK-MED ONCE .ROUTE ; Start 08/13/16 at 12:39; Stop 08/13/16 at 12:40; Status DC Nitroglycerin/ Dextrose 250 ml @ As Directed STK-MED ONCE IV ; Start 08/13/16 at 12:47; Stop 08/14/16 at 07:45; Status DC Rocuronium Jewell (Zemuron) 100 mg STK-MED ONCE .ROUTE ; Start 08/13/16 at 14: 51; Stop 08/13/16 at 14:52; Status DC Protamine Sulfate 250 mg STK-MED ONCE IV ; Start 08/13/16 at 14:52; Stop at 14:53; Status DC Protamine Sulfate 50 mg STK-MED ONCE IV ; Start 08/13/16 at 15:05; Stop at 15:06; Status DC Epinephrine HCl (EPINEPHrine SYRINGE) 1 mg STK-MED ONCE .ROUTE ; Start 08/13/16 at 15:09; Stop 08/13/16 at 15:10; Status DC Midazolam HCl (Versed) 2 mg STK-MED ONCE .ROUTE ; Start 08/13/16 at 15:33; Stop 08/13/16 at 15:34; Status DC Lidocaine HCl (Lidocaine Pf 2% Vial) 5 ml STK-MED ONCE .ROUTE ; Start 08/13/16 at 15:38; Stop 08/13/16 at 15:39; Status DC Aminocaproic Acid (Amicar) 5,000 mg STK-MED ONCE IV ; Start 08/13/16 at 15:38; Stop 08/13/16 at 15:39; Status DC Mannitol (Mannitol) 12.5 g STK-MED ONCE .ROUTE ; Start 08/13/16 at 15:38; Stop 08/13/16 at 15:39; Status DC Calcium Chloride 1,000 mg STK-MED ONCE IV ; Start 08/13/16 at 15:38; Stop at 15:39; Status DC Albumin Human 100 ml @ As Directed STK-MED ONCE IV ; Start 08/13/16 at 15:38; Stop 08/13/16 at 15:39; Status DC Heparin Sodium (Porcine) 30,000 unit STK-MED ONCE .ROUTE ; Start 08/13/16 at 15: 39; Stop 08/13/16 at 15:40; Status DC Magnesium Sulfate 5 gm STK-MED ONCE .ROUTE ; Start 08/13/16 at 15:39; Stop 08/13 at 15:40; Status DC Desflurane (Suprane) 90 ml STK-MED ONCE IH ; Start 08/13/16 at 15:54; Stop 08/13 at 15:55; Status DC Midazolam HCl (Versed) 2 mg STK-MED ONCE .ROUTE ; Start 08/13/16 at 16:01; Stop 08/13/16 at 16:02; Status DC Rocuronium Jewell (Zemuron) 50 mg STK-MED ONCE .ROUTE ; Start 08/13/16 at 16:08 ; Stop 08/13/16 at 16:09; Status DC Dextrose 1,000 ml @ 30 mls/hr Q24H IV ; Start 08/13/16 at 16:08; Stop 08/15/16 at 10:54; Status DC Albumin Human 250 ml @ 60 mls/hr PRN Q4HRS PRN IV SEE I/O RECORD Last administered on 08/13/16 18:22; Start 08/13/16 at 17:00; Stop 08/15/16 at 10:54 ; Status DC Insulin Human Regular 150 unit/ Sodium Chloride 151.5 ml @ 0 mls/hr CONT PRN PRN IV SEE I/O RECORD Last administered on 08/14/16 21:35; Start 08/13/16 at 16 :15 Dextrose (Dextrose 50%-Water Syringe) 25 gm PRN Q15MIN PRN IV LOW BLOOD SUGAR; Start 08/13/16 at 16:15 Nitroglycerin/ Dextrose 250 ml @ 0 mls/hr CONT PRN PRN IV SEE I/O RECORD; Start 08/13/16 at 16:15; Stop 08/14/16 at 07:45; Status DC Dopamine HCl/ Dextrose 250 ml @ 0 mls/hr CONT PRN PRN IV SEE I/O RECORD; Start 08/13/16 at 16:15; Stop 08/15/16 at 10:54; Status DC Amiodarone HCl 900 mg/Dextrose 518 ml @ 33.33 mls/ hr CONT PRN PRN IV RUNS OF VT; Start 08/13/16 at 16:15; Stop 08/15/16 at 10:54; Status DC Amiodarone HCl 150 mg/Dextrose 103 ml @ 200 mls/hr 1X PRN PRN IV VT; Start at 16:15; Stop 08/15/16 at 10:54; Status DC Info 1 ea CONT PRN PRN MC SEE COMMENTS; Start 08/13/16 at 16:15 Info 1 ea CONT PRN PRN MC SEE COMMENTS; Start 08/13/16 at 16:15; Stop 08/16/16 at 07:56; Status DC Magnesium Sulfate/ Dextrose 100 ml @ 100 mls/hr PRN DAILY PRN IV FOR MAG < 2.2 ; Start 08/13/16 at 16:15 Famotidine (Pepcid) 20 mg BID IVP Last administered on 08/15/16 07:45; Start 08/13/16 at 21:00; Stop 08/15/16 at 10:54; Status DC Ondansetron HCl (Zofran) 4 mg PRN Q4HRS PRN IV NAUSEA/VOMITING; Start 08/13/16 at 16:15 Morphine Sulfate 2 mg PRN Q1HR PRN IV PAIN Last administered on 08/15/16 02:39 ; Start 08/13/16 at 16:15 Acetaminophen (Tylenol) 650 mg PRN Q4HRS PRN PO MILD PAIN / TEMP; Start at 16:15 Acetaminophen (Acetaminophen Supp) 650 mg PRN Q4HRS PRN TX MILD PAIN / TEMP; Start 08/13/16 at 16:15; Stop 08/15/16 at 10:54; Status DC Meperidine HCl (Demerol) 12.5 mg PRN Q15MIN PRN IV SHIVERING Last administered on 08/13/16 17:28; Start 08/13/16 at 16:15; Stop 08/14/16 at 07:45; Status DC Propofol 100 ml @ 0 mls/hr CONT PRN PRN IV POSTOP SEDATION UNTIL EXTUBATE; Start 08/13/16 at 16:15; Stop 08/14/16 at 07:45; Status DC Senna/Docusate Sodium (Senna Plus) 1 tab BID PO Last administered on 08/16/16 21:03; Start 08/14/16 at 09:00 Bisacodyl (Dulcolax Supp) 10 mg PRN DAILY PRN TX NO BOWEL MOVEMENT; Start 08/13 at 16:15 Chlorhexidine Gluconate (Peridex) 15 ml BID MM ; Start 08/13/16 at 21:00; Stop 08/14/16 at 08:43; Status DC Aspirin (Ecotrin) 325 mg DAILYWBKFT PO Last administered on 08/17/16 07:20; Start 08/14/16 at 08:00 Aspirin (Aspirin) 300 mg PRN DAILY PRN TX IF UNABLE TO TAKE PO; Start 08/13/16 at 16:15; Stop 08/15/16 at 10:54; Status DC Albuterol Sulfate (Ventolin Neb Soln) 2.5 mg PRN Q4HRS PRN NEB SHORTNESS OF BREATH; Start 08/13/16 at 16:15 Metoprolol Tartrate (Lopressor) 25 mg BID PO ; Start 08/14/16 at 09:00; Stop at 09:04; Status DC Nicardipine HCl 50 mg/Sodium Chloride 270 ml @ 0 mls/hr CONT PRN PRN IV PER PROTOCOL; Start 08/13/16 at 16:15; Stop 08/14/16 at 07:45; Status DC Clevidipine 100 ml @ 0 mls/hr CONT PRN IV PER PROTOCOL; Start 08/13/16 at 16:15 ; Stop 08/14/16 at 07:45; Status DC Oxycodone/ Acetaminophen (Percocet 5/325) 1 tab PRN Q4HRS PRN PO MILD PAIN Last administered on 08/15/16 22:44; Start 08/13/16 at 16:15 Oxycodone/ Acetaminophen (Percocet 5/325) 2 tab PRN Q4HRS PRN PO MODERATE PAIN , SEVERE PAIN Last administered on 08/17/16 07:20; Start 08/13/16 at 16:15 Cefazolin Sodium/ Dextrose 50 ml @ 100 mls/hr Q8H IV Last administered on 08/15 06:07; Start 08/13/16 at 22:00; Stop 08/15/16 at 06:29; Status DC Lidocaine HCl 30 ml STK-MED ONCE .ROUTE ; Start 08/13/16 at 17:10; Stop at 17:11; Status DC Morphine Sulfate 1 mg PRN Q10MIN PRN IV SEVERE PAIN Last administered on 14:01; Start 08/13/16 at 18:00 Potassium Chloride 50 ml @ 50 mls/hr 1X ONCE IV Last administered on 19:08; Start 08/13/16 at 18:15; Stop 08/13/16 at 19:14; Status DC Lidocaine HCl 30 ml STK-MED ONCE .ROUTE ; Start 08/13/16 at 17:00; Stop at 07:12; Status DC Amiodarone HCl (Cordarone) 400 mg BID PO Last administered on 08/16/16 21:02; Start 08/15/16 at 09:00 Metoprolol Tartrate (Lopressor) 12.5 mg BID PO Last administered on 08/16/16 21:03; Start 08/15/16 at 09:00; Stop 08/17/16 at 08:17; Status DC Throat Lozenges (Cepacol Sore Throat Lozenge) 1 lien PRN Q2HRS PRN PO SORE THROAT; Start 08/15/16 at 09:00 Al Hydroxide/Mg Hydroxide (Mylanta Plus Xs) 30 ml PRN Q4HRS PRN PO HEARTBURN / GAS; Start 08/15/16 at 09:00 Magnesium Hydroxide (Milk Of Magnesia) 2,400 mg PRN DAILY PRN PO CONSTIPATION; Start 08/15/16 at 09:00 Nitroglycerin (Nitrostat) 0.4 mg PRN Q5MIN PRN SL CHEST PAIN; Start 08/15/16 at 09:00 Famotidine (Pepcid) 20 mg BID PO Last administered on 08/16/16 21:03; Start at 21:00 Potassium Chloride (Klor-Con) 40 meq 1X ONCE PO Last administered on 08:11; Start 08/16/16 at 08:30; Stop 08/16/16 at 08:31; Status DC Metoprolol Tartrate (Lopressor) 25 mg BID PO ; Start 08/17/16 at 09:00; Status UNV Active Scripts Active Brilinta (Ticagrelor) 90 Mg Tablet 90 Mg PO BID 30 Days Atorvastatin Calcium 40 Mg Tablet 40 Mg PO QHS 30 Days Aspirin Ec (Aspirin) 81 Mg Tablet.dr 81 Mg PO DAILYWBKFT 30 Days Amiodarone Hcl 200 Mg Tablet 200 Mg PO DAILY 30 Days Reported Metoprolol Tartrate 50 Mg Tablet 1 Tab PO BID NITROGLYCERIN SubLingual (Nitroglycerin) 0.4 Mg Tab.subl 1 Tab SL UD Novolog Flexpen (Insulin Aspart) 100 Unit/1 Ml Insuln.pen 12 Unit SQ TIDAC Metformin Hcl 1,000 Mg Tablet 1,000 Mg PO BIDWMEALS Lantus Solostar (Insulin Glargine,Hum.rec.anlog) 100 Unit/1 Ml Insuln.pen 32 Unit SQ QHS Enalapril Maleate 10 Mg Tablet 1 Tab PO DAILY Atorvastatin Calcium 40 Mg Tablet 1 Tab PO QHS Aspirin 81 Mg Tab.chew 1 Tab PO DAILY Vitals/I & O Vital Sign - Last 24 Hours 08/16/16 08/16/16 08/16/16 08/16/16 08:20 08:21 11:00 15:00 Temp 98.9 98.7 98.9 98.7 Pulse 86 86 78 83 Resp 20 20 B/P (MAP) 109/64 109/64 131/80 (97) 132/74 (93) Pulse Ox 95 93 O2 Delivery Room Air Room Air 08/16/16 08/16/16 08/16/16 08/16/16 19:59 20:00 21:02 21:03 Temp 98.4 98.4 Pulse 83 83 83 Resp 18 B/P (MAP) 135/83 (100) 135/83 135/83 Pulse Ox 95 O2 Delivery Room Air Room Air O2 Flow Rate 2.0 08/16/16 08/17/16 08/17/16 08/17/16 22:58 02:52 07:20 07:35 Temp 99.3 99.2 99.3 99.2 Pulse 76 78 Resp 20 18 B/P (MAP) 120/72 (88) 124/78 (93) Pulse Ox 95 96 96 O2 Delivery Room Air Room Air Room Air Room Air Intake and Output 08/16/16 08/16/16 08/17/16 15:00 23:00 07:00 Intake Total 0 ml Balance 0 ml LENANE CROOK APRN Aug 17, 2016 08:21
[2016-08-17] MEDS: FAMOTIDINE 20 MG TABLET. PO SCH (08:23)
[2016-08-17] MEDS: SENNOSIDES/DOCUSATE 8.6/50MG TABLET. PO SCH (08:24)
[2016-08-17] MEDS: AMIODARONE HCL 200 MG TABLET. PO SCH (08:24)
[2016-08-17] MEDS ORDERED: METOPROLOL TART IMMED RELEASE 25 MG TABLET. PO SCH (09:00)
--- NOTE | 2016-08-17 10:10 | PDOC ---
CARDIO Progress Notes Date and Time Date of Service 08/17/2016 Time of Evaluation 0930 Subjective Subjective: No Chest Pain, No shortness of breath, No Palpitations, No Dizziness, Other (feels good, wants to go home) Vitals Vitals Vital Signs Date Time Temp Pulse Resp B/P (MAP) Pulse Ox O2 Delivery O2 Flow Rate FiO2 08/17/16 08:24 81 129/78 08/17/16 08:20 96 Room Air 08/17/16 07:00 97.9 18 97.9 08/16/16 20:00 2.0 Weight Weight [ ] Input and Output Intake and Output Intake and Output 08/17/16 06:59 Intake Total 0 ml Balance 0 ml Intake Oral 0 ml # Voids 2 Laboratory Labs Laboratory Tests Test 08/16/16 12:13 08/16/16 17:23 08/16/16 21:02 08/17/16 08:16 Glucose (Fingerstick) 93 mg/dL (70-99) 145 mg/dL (70-99) 205 mg/dL (70-99) 182 mg/dL (70-99) Physical Exam HEENT: Neck Supple W Full Motion Chest: Symmetric LUNGS: Other (faint bibasilar crackles) Heart: S1S2, RRR (SR, no significant ectopies overnight) Abdomen: Soft N/T Extremities: No Edema, No Calf Tenderness Neurology: alert, oriented, follow commands Assessment Assessment 1. Recurrent inferior STEMI s/p emergent CABG x1, POD#4 2. DM2/HLP/HTN Recommendations 1. F/U with CTS as indicated. F/U with cardiology in 4 weeks. Home today. 2. Continue with secondary prevention. Home with amiodarone, metoprolol, ASA as noted in med list. Will reeval for ACEi use as outpt due to episodes of low end BPs. 3. Encourage lifestyle modifications, smoking cessation and cardiac rehab. LIANG CASTELAN APRN Aug 17, 2016 10:10
[2016-08-17 11:00] VITALS: BP 138/75
[2016-08-17] MEDS ORDERED: MAG30ORA2 PO (14:19)
[2016-08-17] MEDS ORDERED: METO50TA2 PO (14:19)
[2016-08-17] MEDS ORDERED: INSU100I13 SQ (14:19)
[2016-08-17] MEDS ORDERED: OXYC1TAB7 PO (14:19)
[2016-08-17] MEDS ORDERED: ASPI325T11 PO (14:19)
[2016-08-17] MEDS ORDERED: SENN-22 PO (14:19)
[2016-08-17] MEDS ORDERED: FAMO20TA5 PO (14:19)
[2016-08-18] MEDS ORDERED: AMIODARONE HCL 200 MG TABLET. PO SCH (09:00)
--- NOTE | 2016-08-20 18:17 | PDOC3 ---
Discharge Summary* Date of Admission: Aug 09, 2016 Date of Discharge: Sep 16, 2016 Admitting Diagnosis STEMI Problems: Final Diagnosis STEMI s/p CABG CONSULTS Cardiology Cardiovascular surgery Procedures CABG Brief Hospital Course Mr Bruno is a pleasant, middle-aged, 60-year-old white man with CAD, recent "code", who presented to the ER with chest pain and EKG changes. 1. STEMI s/p urgent balloon angioplasty (08/09) AND CABG (08/13); recovering well. 2. HTN, HLD: cont 2ary prevention meds 3. DM2: HgbA1c 10; needs tighter control at home; well controlled here 4. Tobacco use: quit 5. Dispo: home with close F/U with Cards and CV surgery Disposition/Orders: D/C to Home CONDITION AT DISCHARGE: Improved Diet: Regular, Consistent Carbohydrate Scheduled Amiodarone Hcl (Amiodarone Hcl), 200 MG PO DAILY Aspirin (Aspirin Ec), 325 MG PO DAILYWBKFT Atorvastatin Calcium (Atorvastatin Calcium), 1 TAB PO QHS, (Reported) Atorvastatin Calcium (Atorvastatin Calcium), 40 MG PO QHS Enalapril Maleate (Enalapril Maleate), 1 TAB PO DAILY, (Reported) Famotidine (Famotidine), 20 MG PO BID Insulin Aspart (Novolog Flexpen), 12 UNIT SQ TIDAC, (Reported) Insulin Glargine,Hum.rec.anlog (Lantus Solostar), 38 UNIT SQ QHS Metoprolol Tartrate (Metoprolol Tartrate), 0.5 TAB PO BID Nitroglycerin (NITROGLYCERIN SubLingual), 1 TAB SL UD, (Reported) Sennosides/Docusate Sodium (Senna-Time S Tablet), 1 TAB PO BID Scheduled PRN Mag Hydrox/Al Hydrox/Simeth (Mag-Al Plus Xs Suspension), 30 ML PO PRN Q4HRS PRN for HEARTBURN / GAS Oxycodone Hcl/Acetaminophen (Oxycodone-Acetaminophen 5-325), 1 TAB PO PRN Q4HRS PRN for MILD PAIN Discontinued Medications Aspirin (Aspirin), 1 TAB PO DAILY, (Reported) Aspirin (Aspirin Ec), 81 MG PO DAILYWBKFT Metformin Hcl (Metformin Hcl), 1,000 MG PO BIDWMEALS, (Reported) Ticagrelor (Brilinta), 90 MG PO BID FOLLOW UP APPOINTMENT: Dr De La Torre in 10 days BRANDIN MESSER MD Aug 20, 2016 18:17
== END 2016-08-17 18:16 | disposition home or self-care (01) | DRG 231 ==
LOC: ER 10:12 → 1 WEST ICU 10:43 → 2 SOUTH 08-10 19:48 → 1 WEST ICU 08-13 13:20 → 2 NORTH 08-15 18:29
PROVIDERS: ADMIT Internal Medicine; ATTEND Internal Medicine
PROC: B4101ZZ Fluoroscopy of Abdominal Aorta using Low Osmolar Contrast (ICD-10-PCS; 2016-08-09)
PROC: 4A023N7 Measurement of Cardiac Sampling and Pressure, Left Heart, Percutaneous Approach (ICD-10-PCS; 2016-08-09)
PROC: B2111ZZ Fluoroscopy of Multiple Coronary Arteries using Low Osmolar Contrast (ICD-10-PCS; 2016-08-09)
PROC: B2151ZZ Fluoroscopy of Left Heart using Low Osmolar Contrast (ICD-10-PCS; 2016-08-09)
PROC: 021009W Bypass Coronary Artery, One Artery from Aorta with Autologous Venous Tissue, Open Approach (ICD-10-PCS; 2016-08-13)
PROC: 06BQ4ZZ Excision of Left Saphenous Vein, Percutaneous Endoscopic Approach (ICD-10-PCS; 2016-08-13)
PROC: 5A1221Z Performance of Cardiac Output, Continuous (ICD-10-PCS; 2016-08-13)
PROC: 5A1935Z Respiratory Ventilation, Less than 24 Consecutive Hours (ICD-10-PCS; 2016-08-13)
PROC: 3E080GC Introduction of Other Therapeutic Substance into Heart, Open Approach (ICD-10-PCS; 2016-08-13)
PROC: 02703ZZ Dilation of Coronary Artery, One Artery, Percutaneous Approach (ICD-10-PCS; principal; 2016-08-13 13:30)
DX: T82.867A Thrombosis due to cardiac prosthetic devices, implants and grafts, initial encounter (principal); I21.19 ST elevation (STEMI) myocardial infarction involving other coronary artery of inferior wall; I25.110 Atherosclerotic heart disease of native coronary artery with unstable angina pectoris; E44.0 Moderate protein-calorie malnutrition; Y83.1 Surgical operation with implant of artificial internal device as the cause of abnormal reaction of the patient, or of later complication, without mention of misadventure at the time of the procedure; E78.5 Hyperlipidemia, unspecified; E78.00 Pure hypercholesterolemia, unspecified; I25.5 Ischemic cardiomyopathy; I10 Essential (primary) hypertension; E11.9 Type 2 diabetes mellitus without complications; F17.200 Nicotine dependence, unspecified, uncomplicated; Z91.19 Patient's noncompliance with other medical treatment and regimen; Z83.3 Family history of diabetes mellitus; Z79.4 Long term (current) use of insulin; Z91.14 Patient's other noncompliance with medication regimen; Z79.01 Long term (current) use of anticoagulants; Z79.1 Long term (current) use of non-steroidal anti-inflammatories (NSAID); Z79.899 Other long term (current) drug therapy; Z71.6 Tobacco abuse counseling; Z68.26 Body mass index [BMI] 26.0-26.9, adult; I73.9 Peripheral vascular disease, unspecified
CPT/HCPCS: 36415; 36600; 37252; 71010; 73552; 80048; 80053; 80076; 81001; 82550; 82553; 82803; 82805; 82962; 83036; 83735; 83880; 84484; 85007; 85027; 85347; 85384; 85520; 85610; 85730; 86850; 86900; 86901; 86920; 87641; 92920; 93005; 93454; 93458; 93880; 93970; 94002; 94250; 96374; C1725; C1753; C1757; C1769; C1771; C1887; C1892; G0269; J0171; J0330; J0690; J1644; J1815; J2001; J2150; J2175; J2250; J2270; J3010; J3475; J3480; J3490; J7120; P9041; P9046; S0028; 97530; 99285-25; J3246

== ENCOUNTER 2016-10-09 09:36 | Inpatient (IN) | payer MEDICARE ==
[~2016-10-09] VITALS: Ht 185.4 cm; Wt 93.6 kg
[~2016-10-09 09:36] MED LIST changes: +ASPI325T11 PO; +FAMO20TA5 PO; +MAG30ORA2 PO; +OXYC1TAB7 PO; +SENN-22 PO
[2016-10-09] MEDS: IV NORMAL SALINE 1000ML BAG 1,000 ML IV SCH (09:40)
[2016-10-09 10:01] LABS: HEMATOCRIT 48.2 % (39.0-53.0); HEMOGLOBIN 15.8 g/dL (13.0-17.5); RED BLOOD COUNT 5.8 x10^6/uL (4.30-5.70); RED CELL DISTRIBUTION WIDTH 14.9 % (11.5-14.5); WHITE BLOOD COUNT 10.2 x10^3/uL (4.0-11.0)
[2016-10-09 10:13] LABS: CALCIUM 9.1 mg/dL (8.5-10.1); GFR 76.2; POTASSIUM 4.4 mmol/L (3.5-5.1)
[2016-10-09 10:18] LABS: PROTHROMBIN TIME PATIENT 12.6 SEC (11.7-14.0)
[2016-10-09 10:42] VITALS: BP 138/98
[2016-10-09] MEDS ORDERED: HEPARIN for ARTERIAL LINE 1,500 ML ONE (13:14)
[2016-10-09] MEDS ORDERED: LIDOCAINE 2% 20 ML VIAL. ONE (13:14)
[2016-10-09] MEDS ORDERED: IODIXANOL 320 MG/ML 100 ML VIAL. ONE (13:14)
[2016-10-09] MEDS ORDERED: MIDAZOLAM HCL/PF 2 MG/2 ML VIAL. ONE (13:16)
[2016-10-09] MEDS ORDERED: fentaNYL PF VIAL 100 MCG/2 ML VIAL ONE (13:17)
[2016-10-09] MEDS ORDERED: HEPARIN for IV BOLUS 10,000 UNIT/10 ML VIAL. ONE (13:29)
[2016-10-09] MEDS ORDERED: LIDOCAINE 2% 20 ML VIAL. IJ ONE (13:45)
[2016-10-09] MEDS ORDERED: fentaNYL PF VIAL 100 MCG/2 ML VIAL IV ONE (13:45)
[2016-10-09] MEDS ORDERED: HEPARIN for IV BOLUS 10,000 UNIT/10 ML VIAL. IV ONE (13:45)
[2016-10-09] MEDS ORDERED: IODIXANOL 320 MG/ML 100 ML VIAL. IART ONE (13:45)
[2016-10-09] MEDS ORDERED: MIDAZOLAM HCL/PF 2 MG/2 ML VIAL. IV ONE (13:45)
[2016-10-09] MEDS ORDERED: CLOPIDOGREL BISULFATE 75 MG TABLET ONE (15:11)
[2016-10-09] MEDS ORDERED: NITROGLYCERIN 200 MCG/2 ML SYRINGE FOR CATH/VASC LAB. IART ONE (15:15)
[2016-10-09] MEDS ORDERED: CLOPIDOGREL BISULFATE 75 MG TABLET PO ONE (15:15)
[2016-10-09 15:29] VITALS: BP 133/79
[2016-10-09] MEDS ORDERED: NITROGLYCERIN 200 MCG/2 ML SYRINGE FOR CATH/VASC LAB. ONE (15:49)
[2016-10-09] MEDS ORDERED: fentaNYL PF VIAL 100 MCG/2 ML VIAL IV PRN (16:00)
[2016-10-09] MEDS ORDERED: AMIODARONE 150 MG in IV DEXTROSE 5% 100 ML IV PRN (16:00)
[2016-10-09] MEDS ORDERED: ACETAMINOPHEN 325 MG TABLET. PO PRN (16:00)
[2016-10-09] MEDS ORDERED: LIDOCAINE 2% 100 MG/5 ML SYRINGE. IV PRN (16:00)
[2016-10-09] MEDS ORDERED: ATROPINE 0.5 MG/5 ML DISP.SYRIN. IV PRN (16:00)
[2016-10-09] MEDS ORDERED: 0.9 % SODIUM CHLORIDE 10 ML DISP.SYRIN. IV PRN (16:00)
[2016-10-09] MEDS ORDERED: NITROGLYCERIN SUBLINGUAL 0.4 MG BOTTLE OF 25. SL PRN (16:00)
[2016-10-09] MEDS ORDERED: NITROGLYCERIN SUBLINGUAL 0.4 MG BOTTLE OF 25. SL SCH (16:30)
[2016-10-09] MEDS ORDERED: oxyCODONE/APAP 5/325 1 TAB TABLET PO PRN (16:30)
--- NOTE | 2016-10-09 16:31 | CARD ---
APPROVED REPORT Patient StatusOUT-PATIENT Gis Scientist: Isidro Méndez, RT (R) Procedure(s) performed: 125 minutes of moderate sedation Abdominal aortogram with LLE run-off OUTREACH ASSOCIATE of the LSFA/Popliteal DCB of the left SFA and popliteal segments Stenting of the LSFA and popliteal segments HISTORY : The patient is a 60 year-old male with a history of . INDICATION FOR PROCEDURE The indication(s) include : Rest pain: Left lower extremity, Positive angiogram for stenosis: , 60-ye ar-old male with known left SFA occlusion presents to the [facility] for planned left SFA intervention for resting left lower extremity pain and limited ischemia.. PROCEDURE NARRATIVE After appropriate informed consent the patient was brought to the catheterization laboratory and plac ed in the supine position. The right groin was prepped and draped in usual sterile fashion. Under 2% lidocaine local anesthesia a 5 [place] introducer sheath was placed in the right common femor al artery via the modified Seldinger technique. Next, a 5 [place] Omni Flush catheter was advanced wit h a J-tipped guidewire into the distal abdominal aorta and digital subtraction angiography of the aor ta and iliac vessels were performed. Subsequently, the Omni Flush catheter was used to direct a J-tip ped guidewire to the left common femoral artery over which a 6 [place]og[place]ese sheath was placed in the left e xternal iliac artery. Next, left lower extremity digital subtraction angiography runoff was performed . After confirming the distal SFA proximal popliteal stenosis of the level the outer canal and interv ention was then planned. The patient was given heparin to maintain an ACT greater than 200. Next with the aid of a 4 [place]ese angled glide catheter and Glidewire the proximal cap of the occlusion was domo ersed. Due to subintimal course the wire was then withdrawn and a 250 T wire was used to puncture the proximal calf. The distal occlusion could not be traversed with the to 50 T, angled glide wire and a connect Flex wire and therefore due to calcification was felt that reentry technique would be approp riate. Therefore, a fine cross catheter was used to exchange the wire for a [place] core wire. Subsequ ently, an outback reentry device was placed in the level of the abductor canal after confirming they spend overlying the vessel the needle was able to puncture into the true lumen with free advancement of the wire. Next, the fine cross catheter was then readvanced and intraluminal placement was confirm ed with injection with notable three-vessel runoff. Subsequently, balloon angioplasty was performed with a 5.0 x 150 mm [place] balloon. Next, a paclitax el coated 6.0 x 120 mm balloon was used to perform angioplasty. Subsequently, the lesion was stented with overlapping 6.0 x 150 mm and 6.0 x 80 mm Supera stents. The lesion was then postdilated after st ent placement with a 6 mm balloon at 12 lizett. Final post intervention angiography revealed excellent s tent expansion and CONNIE-3 flow in the vessel. There was no acute competitions. This case was difficul t and complex due to the calcification and chronic total occlusion of the vessel as well as requireme nt for reentry technique using an outback device. The patient received 600 mg of Plavix at case completion. The right common femoral arterial access si te was then closed with a pre-close device and hemostasis was achieved. Conclusion 1. Culver category for left lower summary claudication. 2. Successful recanalization of the distal SFA and proximal popliteal occlusion via the outback reent ry device. 3. Successful balloon angioplasty, drug-coated balloon angioplasty and stenting of the left SFA and p opliteal arteries. Recommendations ASA 81mg daily indefinitely Plavix 75mg daily for at least 6 months.
[2016-10-09 19:34] VITALS: BP 138/77
[2016-10-09] MEDS: INSULIN ASPART 300 UNITS/3 ML INSULN.PEN SQ SCH (19:34)
[2016-10-09] MEDS: METOPROLOL TART IMMED RELEASE 50 MG TABLET. PO SCH (20:45)
[2016-10-09] MEDS ORDERED: ATORVASTATIN CALCIUM 40 MG TABLET. PO SCH (21:00)
[2016-10-09] MEDS ORDERED: INSULIN DETEMIR 300 UNITS/3 ML INSULN.PEN. SQ SCH (21:00)
[2016-10-09 22:44] VITALS: BP 140/75
[2016-10-10] MEDS: IV NORMAL SALINE 1000ML BAG 1,000 ML IV SCH (02:20)
[2016-10-10 03:06] VITALS: BP 137/80
[2016-10-10 07:00] VITALS: BP 138/65
[2016-10-10] MEDS: INSULIN ASPART 300 UNITS/3 ML INSULN.PEN SQ SCH ×2 (07:30→11:30)
[2016-10-10] MEDS ORDERED: CLOPIDOGREL BISULFATE 75 MG TABLET PO SCH (08:00)
[2016-10-10] MEDS ORDERED: ASPIRIN ENTERIC COATED 325 MG TABLET.DR. PO SCH ×2 (08:00)
[2016-10-10] MEDS: METOPROLOL TART IMMED RELEASE 50 MG TABLET. PO SCH (08:35)
--- NOTE | 2016-10-10 09:40 | PDOC3 ---
LIANG CASTELAN BASKET OPERATOR 10/10/16 0940: Discharge Summary Visit Information Date of Admission: Oct 09, 2016 Date of Discharge: Oct 10, 2016 Admitting Diagnosis: Lower extremity limb ischemia, Hx of CAD and CABG Final Diagnosis Femoral runoff, AUTOMOTIVE DESIGN DRAFTER/stent to left SFA and popliteal arteries. Brief Hospital Course Allergies Allergies Coded Allergies Type Severity Reaction Last Updated Verified No Known Drug Allergies 08/13/16 No Vital Signs Vital Signs Date Time Temp Pulse Resp B/P (MAP) Pulse Ox O2 Delivery O2 Flow Rate FiO2 10/10/16 08:35 103 138/65 10/10/16 07:00 98.4 19 92 Room Air 98.4 10/09/16 15:29 2.0 Lab Results Laboratory Tests Test 10/09/16 09:55 10/09/16 14:35 10/09/16 15:09 10/09/16 15:56 White Blood Count 10.2 x10^3/uL (4.0-11.0) Red Blood Count 5.80 x10^6/uL (4.30-5.70) Hemoglobin 15.8 g/dL (13.0-17.5) Hematocrit 48.2 % (39.0-53.0) Mean Corpuscular Volume 83 fL (79-100) Mean Corpuscular Hemoglobin 27 pg (25-35) Mean Corpuscular Hemoglobin Concent 33 g/dL (31-37) Red Cell Distribution Width 14.9 % (11.5-14.5) Platelet Count 319 x10^3/uL (140-400) Prothrombin Time 12.6 SEC (11.7-14.0) Prothromb Time International Ratio 1.0 (0.8-1.1) Sodium Level 137 mmol/L (136-145) Potassium Level 4.4 mmol/L (3.5-5.1) Chloride Level 101 mmol/L (98-107) Carbon Dioxide Level 26 mmol/L (21-32) Anion Gap 10 (6-14) Blood Urea Nitrogen 16 mg/dL (8-26) Creatinine 1.0 mg/dL (0.7-1.3) Estimated GFR (Cockcroft-Gault) 76.2 Glucose Level 231 mg/dL (70-99) Calcium Level 9.1 mg/dL (8.5-10.1) Activated Clotting Time 180 sec (92-181) 209 sec (92-181) Glucose (Fingerstick) 147 mg/dL (70-99) Test 10/09/16 20:43 10/10/16 07:40 Glucose (Fingerstick) 257 mg/dL (70-99) 157 mg/dL (70-99) Laboratory Tests Test 10/09/16 09:55 10/09/16 14:35 10/09/16 15:09 10/09/16 15:56 White Blood Count 10.2 x10^3/uL (4.0-11.0) Red Blood Count 5.80 x10^6/uL (4.30-5.70) Hemoglobin 15.8 g/dL (13.0-17.5) Hematocrit 48.2 % (39.0-53.0) Mean Corpuscular Volume 83 fL (79-100) Mean Corpuscular Hemoglobin 27 pg (25-35) Mean Corpuscular Hemoglobin Concent 33 g/dL (31-37) Red Cell Distribution Width 14.9 % (11.5-14.5) Platelet Count 319 x10^3/uL (140-400) Prothrombin Time 12.6 SEC (11.7-14.0) Prothromb Time International Ratio 1.0 (0.8-1.1) Sodium Level 137 mmol/L (136-145) Potassium Level 4.4 mmol/L (3.5-5.1) Chloride Level 101 mmol/L (98-107) Carbon Dioxide Level 26 mmol/L (21-32) Anion Gap 10 (6-14) Blood Urea Nitrogen 16 mg/dL (8-26) Creatinine 1.0 mg/dL (0.7-1.3) Estimated GFR (Cockcroft-Gault) 76.2 Glucose Level 231 mg/dL (70-99) Calcium Level 9.1 mg/dL (8.5-10.1) Activated Clotting Time 180 sec (92-181) 209 sec (92-181) Glucose (Fingerstick) 147 mg/dL (70-99) Test 10/09/16 20:43 10/10/16 07:40 Glucose (Fingerstick) 257 mg/dL (70-99) 157 mg/dL (70-99) Brief Hospital Course Mr Bruno is a 60 yo male admitted for planned femoral runoff with symptomatic claudication particularly to his LLE. He recently had a CABG recently and is doing well in that regard. Via right transfemoral approach, femoral runoff was established and deemed with bilateral LE PAD in which his his LLE arterial system needing revascularization and mild to moderate disease to his RLE system. AUTOMOTIVE DESIGN DRAFTER/stent was performed to his left SFA and popliteal arteries and did well without complications. His stay is unremarkable and denies any significant discomfort. Ambulatory with his baseline and no SOA or CP. Right groin arteriotomy site intact without swelling or erythema. Neurovascular status to bilateral LE intact. VSS. Discussed post-procedural instructions and to be reinforced by staff. Continue with home medications with ECASA indefinitely and at least 6 months of plavix. Follow up in office in 4 weeks with ELLY and arterial duplex prior to visit. Discharge Information Condition at Discharge: Stable Follow Up: Weeks (4) Disposition/Orders: D/C to Home Scheduled Atorvastatin Calcium (Atorvastatin Calcium), 40 MG PO QHS Insulin Aspart (Novolog Flexpen), 12 UNIT SQ TIDAC, (Reported) Insulin Glargine,Hum.rec.anlog (Lantus Solostar), 38 UNIT SQ QHS Metoprolol Tartrate (Metoprolol Tartrate), 0.5 TAB PO BID Nitroglycerin (NITROGLYCERIN SubLingual), 1 TAB SL UD, (Reported) Scheduled PRN Oxycodone Hcl/Acetaminophen (Oxycodone-Acetaminophen 5-325), 1 TAB PO PRN Q4HRS PRN for MILD PAIN Discontinued Medications Aspirin (Aspirin Ec), 325 MG PO DAILYWBKFT Atorvastatin Calcium (Atorvastatin Calcium), 1 TAB PO QHS, (Reported) Enalapril Maleate (Enalapril Maleate), 1 TAB PO DAILY, (Reported) Patient Instructions Patient Instructions GENERAL INSTRUCTIONS: 1. Your dressing should be removed prior to leaving the hospital. 2. It is OK to shower the day after your procedure. 3. If you received stents, be sure to carry your stent information card with you in your wallet/purse at all times. 4. Call the office immediately at [phone] if you notice any fever or if there is redness, worsening tenderness/pain, increased bruising, or drainage from the puncture site. 5. Should you have bleeding from the site, lie down immediately & put pressure on the site. The pressure should be hard enough to stop the bleeding. Have the nearest person call 911. DO NOT try to drive to the ER with active bleeding. 6. If you notice a change in color, coolness to touch, or loss of feeling in the affected extremity, come to the emergency room. Please have someone drive you or call 911 if no one is available. DO NOT drive yourself. 7. If you normally take glucophage (metformin), please do not take this medicine for 48 hours following your procedure. 8. DO NOT STOP TAKING YOUR PLAVIX OR ASPIRIN UNLESS IT IS CLEARED BY A POWER PLANT MANAGER OF YOUR WASHING MACHINE LOADER AT OUR OFFICE. 9. QUIT SMOKING: the [place] [employer], [place] [employer], & [place] [employer] have cessation resources available on their websites 10. Please have someone available to drive you home from the hospital as you may be limited by sedation medications given during the procedure. Femoral (Groin) access: 1. Do no lifting, pushing, pulling, bending, stooping, or recurrent stair climbing for 3 days following your procedure. 2. Once past the first 3 days, do not do any HEAVY exertion or lifting for one week following the procedure. No gym workouts, running, lifting greater than a gallon of milk, etc 3. Do not submerge in bath or pool for one week. OK to drive 3 days following your procedure, but if going long distance, do not go alone & take hourly breaks to get out of car and walk around. Call the office at [phone] for any questions or concerns. JEFFREY PENA MD 10/10/16 7844: Discharge Summary Brief Hospital Course Brief Hospital Course Pt. seen and examined. Agree with above TOOL GRINDER SET UP OPERATOR GEAR note. No acute issues overnight. R groin site c/d/i Excellent PT/DP pulses on the left side. Will f/u in the office in 4 weeks. Discharge Information Scheduled Atorvastatin Calcium (Atorvastatin Calcium), 40 MG PO QHS Insulin Aspart (Novolog Flexpen), 12 UNIT SQ TIDAC, (Reported) Insulin Glargine,Hum.rec.anlog (Lantus Solostar), 38 UNIT SQ QHS Metoprolol Tartrate (Metoprolol Tartrate), 0.5 TAB PO BID Nitroglycerin (NITROGLYCERIN SubLingual), 1 TAB SL UD, (Reported) Scheduled PRN Oxycodone Hcl/Acetaminophen (Oxycodone-Acetaminophen 5-325), 1 TAB PO PRN Q4HRS PRN for MILD PAIN Discontinued Medications Aspirin (Aspirin Ec), 325 MG PO DAILYWBKFT Atorvastatin Calcium (Atorvastatin Calcium), 1 TAB PO QHS, (Reported) Enalapril Maleate (Enalapril Maleate), 1 TAB PO DAILY, (Reported) LIANG CASTELAN APRN Oct 10, 2016 09:40 JEFFREY PENA MD Oct 10, 2016 17:14
[2016-10-10 11:00] VITALS: BP 141/73
[2016-10-10] MEDS ORDERED: CLOP75TA PO (11:32)
[2016-10-10] MEDS ORDERED: ASPI-612 PO (11:32)
== END 2016-10-10 12:50 | disposition home or self-care (01) | DRG 254 ==
LOC: CCL 09:36 → 2 SOUTH 12:41
PROVIDERS: ADMIT Internal Medicine Cardiovascular Disease; ATTEND Internal Medicine Cardiovascular Disease
PROC: B4101ZZ Fluoroscopy of Abdominal Aorta using Low Osmolar Contrast (ICD-10-PCS; principal; 2016-10-09)
PROC: 047L341 Dilation of Left Femoral Artery with Drug-eluting Intraluminal Device, using Drug-Coated Balloon, Percutaneous Approach (ICD-10-PCS; 2016-10-09)
PROC: 047N341 Dilation of Left Popliteal Artery with Drug-eluting Intraluminal Device, using Drug-Coated Balloon, Percutaneous Approach (ICD-10-PCS; 2016-10-09)
DX: I70.212 Atherosclerosis of native arteries of extremities with intermittent claudication, left leg (principal); I25.10 Atherosclerotic heart disease of native coronary artery without angina pectoris; Z79.4 Long term (current) use of insulin; Z95.1 Presence of aortocoronary bypass graft
CPT/HCPCS: 36415; 37226; 75630; 80048; 82962; 85027; 85347; 85610; C1769; C1771; C1892; C2623; G0269; J1644; J1815; J2250; J3010; J3490; J2001

== ENCOUNTER 2016-11-25 18:09 | Inpatient (IN) | payer MEDICARE ==
[~2016-11-25] VITALS: Ht 185.4 cm; Wt 91.7 kg
[2016-11-25] MEDS ORDERED: ONDANSETRON PF 4 MG/2 ML VIAL. IV ONE (18:30)
[2016-11-25 18:45] LABS: BASO # 0.1 x10^3/uL (0.0-0.2); BASO % 1 % (0-3); EOS % 3 % (0-3); HEMATOCRIT 42.6 % (39.0-53.0); HEMOGLOBIN 13.9 g/dL (13.0-17.5); LYMPH # 2.4 x10^3/uL (1.0-4.8); LYMPH % 29 % (24-48); MEAN CORPUSCULAR HEMOGLOBIN 26 pg (25-35); MEAN CORPUSCULAR HGB CONC 33 g/dL (31-37); MEAN CORPUSCULAR VOLUME 79 fL (79-100); MONO % 12 % (0-9); NEUT % 55 % (31-73); PLATELET COUNT 259 x10^3/uL (140-400); RED BLOOD COUNT 5.37 x10^6/uL (4.30-5.70); RED CELL DISTRIBUTION WIDTH 15.6 % (11.5-14.5); WHITE BLOOD COUNT 8.5 x10^3/uL (4.0-11.0)
[2016-11-25 18:58] LABS: CALCIUM 8.8 mg/dL (8.5-10.1); CREATININE 0.9 mg/dL (0.7-1.3); GFR 85.8; POTASSIUM 3.9 mmol/L (3.5-5.1)
[2016-11-25 19:00] LABS: INR 0.9 (0.8-1.1); PROTHROMBIN TIME PATIENT 11.9 SEC (11.7-14.0)
[2016-11-25] MEDS ORDERED: ONDANSETRON PF 4 MG/2 ML VIAL. IV PRN ×2 (19:00→21:15)
[2016-11-25] MEDS ORDERED: IODIXANOL 320 MG/ML 100 ML VIAL. ONE (19:11)
[2016-11-25] MEDS ORDERED: HEPARIN for IV BOLUS 10,000 UNIT/10 ML VIAL. IV ONE ×2 (19:15→21:30)
--- NOTE | 2016-11-25 19:15 | PHYS DOC ---
Past Medical History Past Medical History: CAD, Diabetes-Type II, High Cholesterol, Hypertension, [place] Past Surgical History: Other Additional Past Surgical Histo: CARDIAC STENTS, ROTATOR CUFF- BILAT, L KNEE MENISCUS Alcohol Use: None Drug Use: None Adult General Chief Complaint Chief Complaint: LOWER EXTREMITY SWELLING HPI HPI 61-year-old male presenting to the emergency department today after being transferred by [facility] to us with left leg pain. I discussed case with Dr. Bella part of the patient arriving and discussed the case with Dr. Lam prior to the patient arriving. The patient recently received stents in his left leg by Dr. Lam. He presented to [facility] emergency department with worsening leg pain after he became leave that he possibly pulled a muscle. Dr. Bella was concerned because the patient had poor Refill without a palpable or dopplerable pulse. He communicated with Dr. Lam for transfer for the patient to be treated and cared for by Dr. Lam. He describes a pain in his calf that is sharp moderate intermittent and without alleviating factors. Review of systems is negative for chest pain shortness of breath fevers or chills. All other review of systems is negative unless otherwise noted in history of present illness. ED course: 61-year-old male presenting to the emergency department today as a transfer from [facility] to be taken to the cardiac catheterization lab for intervention for acute thrombosed left limb. Upon arrival IV established. Heparin ordered. Dr. Lam notified. Pertinent physical exam findings showed delayed cap refill greater than 4 seconds without any evidence of palpable pulse. The extremity is cool to touch when compared to the contralateral. Consistent with acute thrombosed limb ischemia. Dr. Lam is currently covering STEMI call so he called the interventional radiologist to perform the procedure. Patient was then taken to the cardiac catheterization lab for intervention. Review of Systems Review of Systems SEE ABOVE. Current Medications Current Medications Current Medications Medications (Trade) Dose Ordered Sig/Lizzeth Start Time Stop Time Status Last Admin Dose Admin Heparin Sodium (Porcine) (Heparin 5,000 Units/1,000ml NS) 4,000 unit 1X ONCE 11/25/16 18:30 11/25/16 18:31 DC Hydromorphone HCl (Dilaudid) 0.5 mg PRN Q30MIN PRN 11/25/16 18:30 11/25/16 20:16 0.5 MG Ondansetron HCl (Zofran) 4 mg 1X ONCE 11/25/16 18:30 11/25/16 18:31 DC 11/25/16 20:16 4 MG Allergies Allergies Allergies Coded Allergies Type Severity Reaction Last Updated Verified No Known Drug Allergies 08/13/16 No Physical Exam Physical Exam SEE ABOVE Constitutional: Well developed, well nourished, no acute distress, non-toxic appearance. [] HENT: Normocephalic, atraumatic, bilateral external ears normal, oropharynx moist, no oral exudates, nose normal. [] Eyes: PERRLA, EOMI, conjunctiva normal, no discharge. [] Neck: Normal range of motion, no tenderness, supple, no stridor. [] Cardiovascular:Heart rate regular rhythm, no murmur [] Lungs & Thorax: Bilateral breath sounds clear to auscultation [] Abdomen: Bowel sounds normal, soft, no tenderness, no masses, no pulsatile masses. [] Skin: Warm, dry, no erythema, no rash. [] Back: No tenderness, no CVA tenderness. [] Extremities: See above, the remainder the extremities are unremarkable. Nontender without edema. Neurologic: Alert and oriented X 3, normal motor function, normal sensory function, no focal deficits noted. [] Psychologic: Affect normal, judgement normal, mood normal. [] Current Patient Data Vital Signs Vital Signs Date Time Temp Pulse Resp B/P (MAP) Pulse Ox O2 Delivery O2 Flow Rate FiO2 11/25/16 18:25 97.9 98 18 198/98 (131) 98 Room Air 97.9 Lab Values Laboratory Tests Test 11/25/16 16:34 White Blood Count 8.5 x10^3/uL (4.0-11.0) Red Blood Count 5.37 x10^6/uL (4.30-5.70) Hemoglobin 13.9 g/dL (13.0-17.5) Hematocrit 42.6 % (39.0-53.0) Mean Corpuscular Volume 79 fL (79-100) Mean Corpuscular Hemoglobin 26 pg (25-35) Mean Corpuscular Hemoglobin Concent 33 g/dL (31-37) Red Cell Distribution Width 15.6 % (11.5-14.5) H Platelet Count 259 x10^3/uL (140-400) Neutrophils (%) (Auto) 55 % (31-73) Lymphocytes (%) (Auto) 29 % (24-48) Monocytes (%) (Auto) 12 % (0-9) H Eosinophils (%) (Auto) 3 % (0-3) Basophils (%) (Auto) 1 % (0-3) Neutrophils # (Auto) 4.7 x10^3uL (1.8-7.7) Lymphocytes # (Auto) 2.4 x10^3/uL (1.0-4.8) Monocytes # (Auto) 1.0 x10^3/uL (0.0-1.1) Eosinophils # (Auto) 0.2 x10^3/uL (0.0-0.7) Basophils # (Auto) 0.1 x10^3/uL (0.0-0.2) Prothrombin Time 11.9 SEC (11.7-14.0) Prothrombin Time INR 0.9 (0.8-1.1) Sodium Level 138 mmol/L (136-145) Potassium Level 3.9 mmol/L (3.5-5.1) Chloride Level 104 mmol/L (98-107) Carbon Dioxide Level 25 mmol/L (21-32) Anion Gap 9 (6-14) Blood Urea Nitrogen 22 mg/dL (8-26) Creatinine 0.9 mg/dL (0.7-1.3) Estimated GFR (Cockcroft-Gault) 85.8 Glucose Level 262 mg/dL (70-99) H Lactic Acid Level 1.3 mmol/L (0.4-2.0) Calcium Level 8.8 mg/dL (8.5-10.1) Laboratory Tests 11/25/16 16:34 Laboratory Tests 11/25/16 16:34 EKG EKG [] Radiology/Procedures Radiology/Procedures [] Course & Med Decision Making Course & Med Decision Making Pertinent Labs and Imaging studies reviewed. (See chart for details) [] Dragon Disclaimer Dragon Disclaimer This electronic medical record was generated, in whole or in part, using a voice recognition dictation system. Departure Departure Impression: Primary Impression: Ischemic leg Disposition: ADMITTED INPATIENT Admitting Physician: Nish Hagen Condition: GUARDED Referrals: KARLEE LOMBARDO Jr, MD (PCP) Critical Care Time Critical care time was [45] minutes exclusive of procedures. Time was spent evaluating the patient, coordinating care, ordering the administration of heparin, discussing with Dr. Lam and admitting provider, and documenting. MERON CASTELAN MD Nov 25, 2016 19:15
[2016-11-25] MEDS: HYDROmorphone 2 MG/ML VIAL IV PRN ×2 (19:21→20:16)
[2016-11-25] MEDS ORDERED: LIDOCAINE 1% / SOD BICARB 8.4% 20 ML VIAL. IJ ONE ×2 (19:27→21:00)
--- NOTE | 2016-11-25 19:34 | PDOC2 ---
CARDIOLOGY CONSULT NOTE CHEIF COMPLAINT: Painful left leg. Problems: HPI: Patient is a 61 y.o man well known to our service who has a past medical history as noted below who presents with a sudden onset of left leg pain. He has a history of CAD, s/p PCI to the RCA that was thrombosed and ultimately underwent SVG to RCA. He had recovered well from that and recently due to lifestyle limiting claudication he underwent an angiogram with PVI of the left SFA with overlapping Supera stents. He was doing well at his post op visit and denied any claudication symptoms. He has done well with smoking cessation and medication compliance. Denies any chest pain, orthopnea or PND. Earlier yesterday evening he was lifting boxes and had sudden worsening pain. Today he started to feel a cold foot and upon arrival to ER at [facility] had non- palpable left leg pulses below the knee and was sent to [place] ER for emergent angiography/treatment. PMHX: CAD s/p PCI, failed, s/p one vessel CABG PAD s/p L SFA stent (Overlapping Supera 6.0 x 150 and 6.0 x 80mm) Dyslipidemia HTN Prior tobacco use. SOCHX: Prior smoker. Quit. Has a girlfriend. Mother is involved in his care actively. FAMHX: NC CURRENT MEDS: Current Medications Medications (Trade) Dose Ordered Sig/Lizzeth Start Time Stop Time Status Last Admin Dose Admin Heparin Sodium (Porcine) (Heparin 5,000 Units/1,000ml NS) 4,000 unit 1X ONCE 11/25/16 18:30 11/25/16 18:31 DC Heparin Sodium (Porcine) (Heparin Sodium) 4,000 unit 1X ONCE 11/25/16 19:15 11/25/16 19:16 DC 11/25/16 19:20 4,000 UNIT Heparin Sodium/ Sodium Chloride 1,000 ml @ As Directed STK-MED ONCE 11/25/16 19:11 11/25/16 19:12 DC Hydromorphone HCl (Dilaudid) 0.5 mg PRN Q30MIN PRN 11/25/16 18:30 11/25/16 19:21 0.5 MG Iodixanol (Visipaque 320) 100 ml STK-MED ONCE 11/25/16 19:11 11/25/16 19:12 DC Lidocaine/Sodium Bicarbonate (Buffered Lidocaine 1%) 20 ml STK-MED ONCE 11/25/16 19:27 11/25/16 19:28 DC Morphine Sulfate 2 mg PRN Q2HR PRN 11/25/16 19:00 11/26/16 18:59 Ondansetron HCl (Zofran) 4 mg PRN Q8HRS PRN 11/25/16 19:00 11/26/16 18:59 ALLERGIES: Allergies Coded Allergies Type Severity Reaction Last Updated Verified No Known Drug Allergies 08/13/16 No ROS: Negative for 12/02 systems reviewed unless otherwise noted above in HPI. PHYSICAL EXAM: Vital Signs: Vital Signs Date Time Temp Pulse Resp B/P (MAP) Pulse Ox O2 Delivery O2 Flow Rate FiO2 11/25/16 19:22 96 19 154/91 (112) 96 Room Air 11/25/16 18:25 97.9 97.9 Physical Exam: GEN.: No apparent distress. Alert and oriented. HEENT: Head is normocephalic, atraumatic NECK: Supple. LUNGS: Clear to auscultation. HEART: RRR, S1, S2 present. Peripheral pulses intact ABDOMEN: Soft, nontender. Positive bowel sounds. EXTREMITIES: Diminished left sided pulses below the thigh. Cool foot on the left side. Mild mottled appearance. NEUROLOGIC: Normal speech, normal tone PSYCHIATRIC: Normal affect, normal mood. SKIN: No ulcerations DIAGNOSTIC TESTING: CBC, CMP wnl. Vascular u/s LLE reveals occluded LSFA stents. ASSESSMENT: 1. Stent thrombosis of previously placed LSFA stents. 2. CAD s/p prior one vessel CABG from stent thrombosis in the coronaries. 3. HTN 4. DLP PLAN: 1. Case discussed with ER physicians, IR and vascular surgery. 2. Plan for emergent angiogram through IR and determine further course ( Surgical embolectomy versus rheolytic thrombectomy or infusion of lytics) 3. Patient previously on ASA and plavix. Had prior coronary stent occlusion but that was felt to be due to under-expanded stents, now with stent thrombosis of fully expanded well apposed peripheral stents while on ASA and Plavix after smoking cessation, may benefit from outpt thrombophilia testing to rule out any significant procoagulant state. 4. Admit to ICU following intervention. Will follow. CC time > 35 min JEFFREY PENA MD Nov 25, 2016 19:34
--- NOTE | 2016-11-25 19:48 | RAD ---
Left lower extremity arterial duplex November 25, 2016 INDICATION: Sudden onset severe left lower extremity pain. History of superficial femoral artery and popliteal stents in September 2016 TECHNIQUE: Sonographic evaluation of the left lower extremity arterial system was performed utilizing grayscale, color Doppler and spectral waveform analysis. FINDINGS: Left common femoral artery: Triphasic waveform with peak systolic velocity of 72 cm/s. Left deep femoral artery: Triphasic waveform with peak systolic velocity 141 cm/s. No arterial waveforms are identified involving the superficial femoral artery, proximal mid and distal. Popliteal artery: Monophasic waveform within the distal popliteal artery with peak systolic velocity 15 cm/s Proximal posterior tibial artery: Monophasic waveform at 14 cm/s peak systolic velocity. Posterior tibial artery distal: Monophasic waveform with 10 cm/s peak systolic velocity. Peroneal artery: Monophasic waveform, 10 cm/s peak systolic velocity Anterior tibial artery is not visualized. No flow is identified in the dorsalis pedis artery. IMPRESSION: 1. No arterial waveform is identified in the proximal, mid and distal superficial femoral artery. There is reconstitution of flow identified in the distal left popliteal artery. 2. No flow is identified in the dorsalis pedis artery. Critical results were discussed with Dr. Connell at 7:40 PM on 11/25/2016. Electronically signed by: Leelee Luna MD (11/25/2016 7:45 PM) [place] [id number]
[2016-11-25] MEDS ORDERED: MIDAZOLAM HCL/PF 2 MG/2 ML VIAL. ONE (20:13)
[2016-11-25] MEDS ORDERED: fentaNYL PF VIAL 100 MCG/2 ML VIAL ONE (20:13)
[2016-11-25] MEDS ORDERED: IODIXANOL 320 MG/ML 100 ML VIAL. IART ONE (21:00)
[2016-11-25] MEDS ORDERED: fentaNYL PF VIAL 100 MCG/2 ML VIAL IV ONE (21:00)
[2016-11-25] MEDS ORDERED: MIDAZOLAM HCL/PF 2 MG/2 ML VIAL. IV ONE (21:00)
[2016-11-25] MEDS ORDERED: HEPARIN for IV BOLUS 10,000 UNIT/10 ML VIAL. ONE (21:15)
[2016-11-25] MEDS ORDERED: MORPHINE SULFATE 2 MG/ML DISP.SYRIN. IV PRN (21:15)
[2016-11-25] MEDS ORDERED: ACETAMINOPHEN 325 MG TABLET. PO PRN (21:15)
[2016-11-25] MEDS ORDERED: DEXTROSE 50% 25 GM / 50ML DISP.SYRIN. IV PRN (21:15)
[2016-11-25] MEDS ORDERED: hydrALAZINE 20 MG/ML VIAL. IVP PRN (21:15)
[2016-11-25] MEDS ORDERED: DOCUSATE SODIUM 100 MG CAPSULE. PO PRN (21:15)
[2016-11-25] MEDS ORDERED: ALTEPLASE 2MG VIAL 10 MG in IV NORMAL SALINE 50ML 50 ML IV ONE (22:15)
--- NOTE | 2016-11-25 22:19 | PDOC ---
MODERATE SEDATION ASSESSMENT RISKS/ALTERNATIVES Risks/Alternatives Risks and alternatives of this type of sedation and procedure discussed with: RISK/ALTERNATIVES: Patient H & P ON CHART H & P H & P on chart and reviewed for co-morbid conditions and appropriate labs. H&P ON CHART: Yes STATUS PREG STATUS ASSESSED: Yes MEDS/ALLERGIES REVIEWED Meds/Allergies Reviewed Medications and Allergies including time and route of recently administered narcotics and sedatives. MEDS/ALLERGIES REVIEWED: Yes ASA RATING ASA RATING: II AIRWAY ASSESSMENT Airway Assessment Airway patency, oral function limitations, presence of caps, crowns, dentures, partials, and ability to extend neck assessed. AIRWAY ASSESSMENT: Yes MALLAMPATI SCORE MALLAMPATI SCORE: II PRE-SEDATION ASSESSMENT PRE-SEDATION ASSESSMENT: Yes JANETT VUONG MD Nov 25, 2016 22:19
--- NOTE | 2016-11-25 22:23 | PDOC1 ---
History and Physical Date of Procedure Date of Admission Nov 25, 2016 at 18:43 History of Present Illness Reason for Visit 61 yo known vasculopath experienced acute onset LLE pain yesterday while lifting and presented to ER today with a cold foot. Pt. had long segment nested left SFA Supera Stents placed 6 weeks prior for PAD with good technical result. No motor changes. Past Medical History Past Medical History see nursing pre-op assessment Current Medications Current Medications Current Medications Hydromorphone HCl (Dilaudid) 0.5 mg PRN Q30MIN PRN IV SEVERE PAIN Last administered on 11/25/16 20:16; Start 11/25/16 at 18:30 Ondansetron HCl (Zofran) 4 mg 1X ONCE IV Last administered on 11/25/16 20:16 ; Start 11/25/16 at 18:30; Stop 11/25/16 at 18:31; Status DC Heparin Sodium (Porcine) (Heparin 5,000 Units/1,000ml NS) 4,000 unit 1X ONCE IV ; Start 11/25/16 at 18:30; Stop 11/25/16 at 18:31; Status DC Ondansetron HCl (Zofran) 4 mg PRN Q8HRS PRN IV NAUSEA/VOMITING; Start 11/25/16 at 19:00; Stop 11/26/16 at 18:59 Morphine Sulfate 2 mg PRN Q2HR PRN IV PAIN; Start 11/25/16 at 19:00; Stop 11/26 at 18:59 Heparin Sodium (Porcine) (Heparin Sodium) 4,000 unit 1X ONCE IV Last administered on 11/25/16 19:20; Start 11/25/16 at 19:15; Stop 11/25/16 at 19:16 ; Status DC Iodixanol (Visipaque 320) 100 ml STK-MED ONCE .ROUTE ; Start 11/25/16 at 19:11; Stop 11/25/16 at 19:12; Status DC Heparin Sodium/ Sodium Chloride 1,000 ml @ As Directed STK-MED ONCE .ROUTE ; Start 11/25/16 at 19:11; Stop 11/25/16 at 19:12; Status DC Lidocaine/Sodium Bicarbonate (Buffered Lidocaine 1%) 20 ml STK-MED ONCE IJ ; Start 11/25/16 at 19:27; Stop 11/25/16 at 19:28; Status DC Fentanyl Citrate (Fentanyl 2ml Vial) 100 mcg STK-MED ONCE .ROUTE ; Start at 20:13; Stop 11/25/16 at 20:14; Status DC Midazolam HCl (Versed) 2 mg STK-MED ONCE .ROUTE ; Start 11/25/16 at 20:13; Stop 11/25/16 at 20:14; Status DC Heparin Sodium/ Sodium Chloride 1,000 unit 1X ONCE IART ; Start 11/25/16 at 21: 00; Stop 11/25/16 at 21:01; Status DC Lidocaine/Sodium Bicarbonate (Buffered Lidocaine 1%) 20 ml 1X ONCE IJ ; Start 11/25/16 at 21:00; Stop 11/25/16 at 21:01; Status DC Midazolam HCl (Versed) 2 mg 1X ONCE IV ; Start 11/25/16 at 21:00; Stop at 21:01; Status DC Fentanyl Citrate (Fentanyl 2ml Vial) 100 mcg 1X ONCE IV ; Start 11/25/16 at 21: 00; Stop 11/25/16 at 21:01; Status DC Iodixanol (Visipaque 320) 100 ml 1X ONCE IART ; Start 11/25/16 at 21:00; Stop 11/25/16 at 21:01; Status DC Insulin Aspart (NovoLOG) 0-9 UNITS TIDWMEALS SQ ; Start 11/26/16 at 08:00 Dextrose (Dextrose 50%-Water Syringe) 12.5 gm PRN Q15MIN PRN IV SEE COMMENTS; Start 11/25/16 at 21:15 Acetaminophen (Tylenol) 650 mg PRN Q6HRS PRN PO FEVER; Start 11/25/16 at 21:15 Ondansetron HCl (Zofran) 4 mg PRN Q6HRS PRN IV NAUSEA/VOMITING; Start 11/25/16 at 21:15 Morphine Sulfate 2 mg PRN Q2HR PRN IV PAIN; Start 11/25/16 at 21:15 Tramadol HCl (Ultram) 50 mg PRN Q6HRS PRN PO PAIN; Start 11/25/16 at 21:15 Hydralazine HCl (Apresoline) 10 mg PRN Q4HRS PRN IVP ELEVATED BP, SEE COMMENTS ; Start 11/25/16 at 21:15 Docusate Sodium (Colace) 100 mg PRN DAILY PRN PO CONSTIPATION; Start 11/25/16 at 21:15 Heparin Sodium (Porcine) (Heparin Sodium) 10,000 unit STK-MED ONCE .ROUTE ; Start 11/25/16 at 21:15; Stop 11/25/16 at 21:16; Status DC Heparin Sodium (Porcine) (Heparin Sodium) 5,000 unit 1X ONCE IV ; Start at 21:30; Stop 11/25/16 at 21:31; Status DC Alteplase, Recombinant 10 mg/ Sodium Chloride 50 ml @ 1 mls/hr 1X ONCE IV ; Start 11/25/16 at 22:15; Stop 11/28/16 at 00:14 Active Scripts Active Aspirin Ec (Aspirin) 81 Mg Tablet.dr 1 Tab PO DAILY Clopidogrel (Clopidogrel Bisulfate) 75 Mg Tablet 1 Tab PO DAILY Oxycodone-Acetaminophen 5-325 (Oxycodone Hcl/Acetaminophen) 1 Each Tablet 1 Tab PO PRN Q4HRS PRN Metoprolol Tartrate 50 Mg Tablet 0.5 Tab PO BID Lantus Solostar (Insulin Glargine,Hum.rec.anlog) 100 Unit/1 Ml Insuln.pen 38 Unit SQ QHS Atorvastatin Calcium 40 Mg Tablet 40 Mg PO QHS 30 Days Reported NITROGLYCERIN SubLingual (Nitroglycerin) 0.4 Mg Tab.subl 1 Tab SL UD Novolog Flexpen (Insulin Aspart) 100 Unit/1 Ml Insuln.pen 12 Unit SQ TIDAC Allergies Allergies: Coded Allergies: No Known Drug Allergies (Unverified , 08/13/16) Physical Exam Vital Signs Vital Signs Date Time Temp Pulse Resp B/P (MAP) Pulse Ox O2 Delivery O2 Flow Rate FiO2 11/25/16 20:16 22 97 Room Air 11/25/16 20:00 96 166/87 (113) 11/25/16 18:25 97.9 97.9 Other A & O x3, NAD. Left leg cool. Palpable left common femoral pulse. Non- palpable left popliteal and distal pulses. Dopplerable popliteal pulse. Non- dopplerable left distal pulses. See nursing pre-op assessment for additional details. Assessment Assessment LLE critical limb ischemia Problems: Plan Plan Arteriogram and intervention. JANETT VUONG MD Nov 25, 2016 22:23
--- NOTE | 2016-11-25 22:26 | PDOC ---
BRIEF OPERATIVE NOTE Pre-Op Diagnosis Critical ischemia of the left leg Post-Op Diagnosis same Procedure Performed Arteriogram and initiation of arterial thrombolysis Surgeon Manuela Anesthesia Type: Conscious Sedation Findings Complete thrombosis of the left SFA with reconstitution of the popliteal by poorly developed collaterals. Popliteal perfuses a patent trifurcation however there is subsequent occlusion of all three run-off vessels in the mid to distal calf with no discernible perfusion to the foot. Angiographic findings are concordant with physical examination demonstrating non-palpable but dopplerable popliteal pulse and non-dopplerable distal pulses. 30cm unifuse infusion catheter placed for initiation of thrombolysis. JANETT VUONG MD Nov 25, 2016 22:26
[2016-11-25] MEDS ORDERED: HEPARIN 25,000UTS/500ML PREMIX 500 ML IV ONE (22:39)
[2016-11-25] MEDS: HEPARIN 25,000UTS/500ML PREMIX 500 ML IV PRN (22:54)
[2016-11-25 23:00] VITALS: BP 151/75
[2016-11-25] MEDS: POTASSIUM CHLORIDE 20 MEQ in IV 1/2 NORMAL SALINE 1,000 ML IV SCH (23:13)
[2016-11-25 23:15] VITALS: BP 149/75
[2016-11-25] MEDS: MORPHINE SULFATE 2 MG/ML DISP.SYRIN. IV PRN (23:27)
[2016-11-25 23:30] VITALS: BP 151/86
[2016-11-25] MEDS: traMADol 50 MG TABLET PO PRN (23:30)
[2016-11-25 23:45] VITALS: BP 168/96
[2016-11-26] VITALS (28 sets, daily range): BP systolic 105–191; BP diastolic 48–109
[2016-11-26] MEDS: HYDROmorphone 2 MG/ML VIAL IV PRN (00:02)
[2016-11-26] MEDS ORDERED: ALPRAZolam 0.25 MG TABLET PO PRN (00:30)
[2016-11-26] MEDS: HYDROmorphone 2 MG/ML VIAL IVP PRN ×5 (01:14→13:36)
[2016-11-26] MEDS: MORPHINE SULFATE 2 MG/ML DISP.SYRIN. IV PRN (02:10)
[2016-11-26] MEDS ORDERED: ALTEPLASE 2MG VIAL 10 MG in IV NORMAL SALINE 50ML 50 ML IV ONE (03:30)
[2016-11-26 04:30] LABS: INR 1.3 (0.8-1.1)
[2016-11-26 05:08] LABS: CALCIUM 8.4 mg/dL (8.5-10.1); CREATININE 0.8 mg/dL (0.7-1.3); GFR 98.3; POTASSIUM 3.9 mmol/L (3.5-5.1)
[2016-11-26 05:12] LABS: BASO # 0.1 x10^3/uL (0.0-0.2); BASO % 1 % (0-3); EOS % 2 % (0-3); HEMATOCRIT 42.1 % (39.0-53.0); HEMOGLOBIN 13.4 g/dL (13.0-17.5); LYMPH # 1.8 x10^3/uL (1.0-4.8); LYMPH % 17 % (24-48); MEAN CORPUSCULAR HEMOGLOBIN 26 pg (25-35); MEAN CORPUSCULAR HGB CONC 32 g/dL (31-37); MEAN CORPUSCULAR VOLUME 80 fL (79-100); MONO % 11 % (0-9); NEUT % 70 % (31-73); PLATELET COUNT 189 x10^3/uL (140-400); RED BLOOD COUNT 5.25 x10^6/uL (4.30-5.70); RED CELL DISTRIBUTION WIDTH 15.5 % (11.5-14.5); WHITE BLOOD COUNT 10.3 x10^3/uL (4.0-11.0)
[2016-11-26] MEDS: traMADol 50 MG TABLET PO PRN ×2 (06:04→20:43)
--- NOTE | 2016-11-26 07:06 | PDOC ---
CARDIOLOGY PROGRESS NOTE SUBJECTIVE: Overnight infusion catheter placed for thrombolysis. Overnight, the left leg has improved in color but the distal half of the foot is pale and dusky. OBJECTIVE: Vital SIgns: Vital Signs Date Time Temp Pulse Resp B/P (MAP) Pulse Ox O2 Delivery O2 Flow Rate FiO2 11/26/16 06:34 20 93 Room Air 11/26/16 06:10 112 151/74 (99) 11/26/16 05:08 98.7 98.7 Objective: a/o x 3. In pain. L foot rooke boot in place 2+ LCFA pulse. Barely Palpable popliteal pulse Dopplerable anterior tibial pulse. very faint dopplerable posterior tib pulse. CURRENT MEDICATIONS: Current Medications Medications (Trade) Dose Ordered Sig/Lizzeth Start Time Stop Time Status Last Admin Dose Admin Acetaminophen (Tylenol) 650 mg PRN Q6HRS PRN 11/25/16 21:15 Alprazolam (Xanax) 0.25 mg PRN Q8HRS PRN 11/26/16 00:30 11/26/16 01:13 0.25 MG Alteplase, Recombinant 10 mg/ Sodium Chloride 50 ml @ 5 mls/hr 1X ONCE 11/26/16 03:30 11/26/16 13:29 11/26/16 03:43 5 MLS/HR Dextrose (Dextrose 50%-Water Syringe) 12.5 gm PRN Q15MIN PRN 11/25/16 21:15 Docusate Sodium (Colace) 100 mg PRN DAILY PRN 11/25/16 21:15 Fentanyl Citrate (Fentanyl 2ml Vial) 100 mcg 1X ONCE 11/25/16 21:00 11/25/16 21:01 DC 11/25/16 22:49 50 MCG Heparin Sodium (Porcine) (Heparin 5,000 Units/1,000ml NS) 4,000 unit 1X ONCE 11/25/16 18:30 11/25/16 18:31 DC Heparin Sodium (Porcine) (Heparin Sodium) 5,000 unit 1X ONCE 11/25/16 21:30 11/25/16 21:31 DC 11/25/16 22:53 5,000 UNIT Heparin Sodium/ Dextrose 500 ml @ As Directed STK-MED ONCE 11/25/16 22:39 11/25/16 22:40 DC Heparin Sodium/ Sodium Chloride 1,000 unit 1X ONCE 11/25/16 21:00 11/25/16 21:01 DC 11/25/16 22:48 1,000 UNIT Hydralazine HCl (Apresoline) 10 mg PRN Q4HRS PRN 11/25/16 21:15 11/26/16 02:09 10 MG Hydromorphone HCl (Dilaudid) 2 mg PRN Q2HRS PRN 11/26/16 00:30 11/26/16 06:04 2 MG Insulin Aspart (NovoLOG) 0-9 UNITS TIDWMEALS 11/26/16 08:00 Iodixanol (Visipaque 320) 100 ml 1X ONCE 11/25/16 21:00 11/25/16 21:01 DC 11/25/16 22:49 150 ML Lidocaine/Sodium Bicarbonate (Buffered Lidocaine 1%) 20 ml 1X ONCE 11/25/16 21:00 11/25/16 21:01 DC 11/25/16 22:48 4 ML Midazolam HCl (Versed) 2 mg 1X ONCE 11/25/16 21:00 11/25/16 21:01 DC 11/25/16 22:49 2 MG Morphine Sulfate 2 mg PRN Q2HR PRN 11/25/16 21:15 Ondansetron HCl (Zofran) 4 mg PRN Q6HRS PRN 11/25/16 21:15 Potassium Chloride 20 meq/ Sodium Chloride 1,010 ml @ 75 mls/hr [id number] 11/25/16 22:30 11/25/16 23:13 75 MLS/HR Tramadol HCl (Ultram) 50 mg PRN Q6HRS PRN 11/25/16 21:15 11/26/16 06:04 50 MG ASSESSMENT: 1. Acute thrombosis of LSFA stents 2. CAD s/p CABG and PCI 3. HTN 4. DLP Problems: PLAN: 1. Await repeat angiogram this morning and evaluation by vascular surgery. Foot overall improving but unclear if he will have any need for toe amputation. will ultimately need fem-pop bypass. Will follow along. Critically ill. JEFFREY PENA MD Nov 26, 2016 07:06
[2016-11-26] MEDS: INSULIN ASPART 300 UNITS/3 ML INSULN.PEN SQ SCH ×5 (08:00→17:00)
--- NOTE | 2016-11-26 08:21 | PDOC ---
Provider Note Provider Note Vascular Consult dictated Imp:limb threatening ischemia lt forefoot, presently undergoing lysis Plan; Await repeat angio later this AM, but if only residual clot in in pedal arch vessels, have nothing to offer except continue lysis, will follow RAGHAV GIBSON MD Nov 26, 2016 08:21
[2016-11-26] MEDS: CLOPIDOGREL BISULFATE 75 MG TABLET PO SCH (08:25)
[2016-11-26] MEDS: METOPROLOL TART IMMED RELEASE 50 MG TABLET. PO SCH ×2 (08:26→20:44)
[2016-11-26] MEDS: ASPIRIN ENTERIC COATED 81 MG TABLET.DR. PO SCH (08:26)
--- NOTE | 2016-11-26 08:39 | CONS ---
DATE OF CONSULTATION: 11/26/2016 REASON FOR CONSULTATION: Ischemic left lower extremity. HISTORY OF PRESENT ILLNESS: This is a 61-year-old male, nonsmoker, but diabetic who has a long history of multiple vascular problems. He has had a coronary bypass recently. He had severe claudication in left calf, could not walk very far, but he did not have ischemic rest pain. Underwent angiographic evaluation and a left superficial femoral artery stent to open up an occlusion of the left superficial femoral artery. He then re-thrombosed this a couple of days ago. He went to the [facility] last night and was transferred here for further treatment. He is presently undergoing lysis of the acute thrombus in the left lower extremity. PAST MEDICAL HISTORY: Again, he has coronary artery disease status post coronary artery bypass. ALLERGIES: He has no allergies. MEDICATIONS: Do include aspirin and Plavix. SOCIAL HISTORY: Again, he does not smoke any more. REVIEW OF SYSTEMS: No history of carotid disease. PHYSICAL EXAMINATION: GENERAL: Pleasant male, who is alert. 2+ carotids, 2+ radial pulses. CARDIOVASCULAR: Heart rate is regular. Well healed median sternotomy. LUNGS: Nonlabored respirations. ABDOMEN: Soft. EXTREMITIES: He has got strong left femoral pulse, 2+ right popliteal and dorsalis pedis pulse, 1+ left popliteal pulse. I could not palpate pedal pulses on the left, but he does have arterial flow by Doppler in the distal anterior tibial artery on the left and weak flow in the posterior tibial artery on the left, but the left forefoot is cool and cyanotic. IMPRESSION: Limb threatening ischemia, left lower extremity with residual clot in his pedal vessels, it looks like. PLAN: Continue lysis and he is going back to the IR suite to reassess a little later on this morning. From my standpoint, if there is clot in his pedal vessels, I have nothing to offer other than trying to continue lysis to dissolve that clot. We will follow him along. RAGHAV GIBSON MD DR: RHETT/susie JOB#: [id number] / [id number]
[2016-11-26] MEDS ORDERED: oxyCODONE/APAP 10/325 1 TAB TABLET PO PRN (08:45)
[2016-11-26 10:22] LABS: INR 1.3 (0.8-1.1); PROTHROMBIN TIME PATIENT 15.4 SEC (11.7-14.0)
[2016-11-26] MEDS ORDERED: IODIXANOL 320 MG/ML 100 ML VIAL. ONE (10:26)
[2016-11-26] MEDS ORDERED: LIDOCAINE 1% / SOD BICARB 8.4% 20 ML VIAL. IJ ONE ×2 (10:29→11:30)
--- NOTE | 2016-11-26 10:59 | RAD ---
Bilateral lower extremity vein mapping, 11/26/2016: History: Preop evaluation for bypass surgery Grayscale and color imaging of the saphenous veins in both lower extremities was performed. On the right, the greater saphenous vein is patent measuring 1.9 to 3.7 mm in diameter in the thigh and 1.7 to 2.4 mm in the lower leg. The right lesser saphenous vein is patent measuring 1.9 to 2.4 mm. On the left, the greater saphenous vein in the thigh is not visualized and may have been previously harvested. A segment of greater saphenous vein in the left lower leg is visualized measuring 2.2 to 3.2 mm. The left lesser saphenous vein is patent measuring 2.5 to 4.1 mm. IMPRESSION: Patent right greater saphenous vein and both lesser saphenous veins with measurements as described above and fully delineated on the technologist worksheet available in the [employer] PACS system.
[2016-11-26] MEDS ORDERED: MIDAZOLAM HCL/PF 2 MG/2 ML VIAL. ONE (11:14)
[2016-11-26] MEDS ORDERED: fentaNYL PF VIAL 100 MCG/2 ML VIAL ONE (11:14)
[2016-11-26] MEDS ORDERED: MIDAZOLAM HCL/PF 2 MG/2 ML VIAL. IV ONE (11:30)
[2016-11-26] MEDS ORDERED: ALTEPLASE 2MG VIAL 10 MG in IV NORMAL SALINE 100ML 100 ML IV ONE (11:30)
[2016-11-26] MEDS ORDERED: IODIXANOL 320 MG/ML 100 ML VIAL. IART ONE (11:30)
[2016-11-26] MEDS ORDERED: fentaNYL PF VIAL 100 MCG/2 ML VIAL IV ONE (11:30)
[2016-11-26] MEDS: POTASSIUM CHLORIDE 20 MEQ in IV 1/2 NORMAL SALINE 1,000 ML IV SCH (11:58)
[2016-11-26] MEDS ORDERED: HEPARIN for IV BOLUS 10,000 UNIT/10 ML VIAL. ONE (12:11)
[2016-11-26] MEDS ORDERED: HEPARIN for IV BOLUS 10,000 UNIT/10 ML VIAL. IV ONE (12:30)
--- NOTE | 2016-11-26 12:35 | PDOC ---
BRIEF OPERATIVE NOTE Pre-Op Diagnosis Critical Limb Ischemia of the left leg Post-Op Diagnosis same Procedure Performed Thrombolysis day 2, thrombectomy, angioplasty and stent of SFA Surgeon Manuela Anesthesia Type: Conscious Sedation Findings Recannalized SFA with persistent non-occlusive thrombus throughout the high SFA. Recanalized AT with persistent occlusion of the tibioperoneal trunk and proximal PT and peroneal arteries. Following thromectomy and SFA angioplasty there is a short focal dissection of the high SFA which was excluded with stent placement resulting in scientology of brisk flow throughout the SFA and popliteal artery with widely patent stents. Following thrombectomy of the PT and TPT there is scientology of brisk flow in this distribution as well. The Peroneal remains occluded at the mid calf, and the PT and DP of the ankle are open, however flow within the small vessels of the foot remains poor. Complications No immediate JANETT VUONG MD Nov 26, 2016 12:35
[2016-11-26] MEDS ORDERED: HEPARIN 25,000UTS/500ML PREMIX 500 ML IV PRN (12:45)
--- NOTE | 2016-11-26 12:46 | EKG ---
[facility] [address] [place] [address] Test Date: 2016-11-25 Test Time: 18:25:50 Pat Name: ELYSSA CONTRERAS Department: Room: 108 1 Gender: M [employer]: : [id number] Requested By: AGNIESZKA GAYLE Order Number: [id number] Reading MD: Measurements Intervals [place] Rate: 97 P: 31 MT: 106 QRS: 7 QRSD: 132 T: -14 QT: 402 QTc: 515 Interpretive Statements SINUS RHYTHM LEFT ATRIAL ABNORMALITY RIGHT BUNDLE BRANCH BLOCK QRS(T) CONTOUR ABNORMALITY CONSISTENT WITH INFERIOR INFARCT AGE UNDETERMINED ABNORMAL ECG RI6.01 No previous ECG available for comparison
--- NOTE | 2016-11-26 12:46 | RAD ---
Procedure: Upper extremity PICC line placement Clinical Indication: 61-year-old with critical limb ischemia of the left leg Sedation: Local anesthesia only was provided Antibiotics: None Fluoro Time: 1 minute, Images: 1 Contrast: No immediate Sterility: All elements of maximal sterile barrier technique including the use of a cap, mask, sterile gown, sterile gloves, large sterile sheet, appropriate hand hygiene, and 2% chlorhexidine for cutaneous antisepsis (or acceptable alternative antiseptic per current guidelines) were followed for this procedure. Consent: The procedure was explained in its entirety to the patient or the patients designated product support sales representative by a member of the treatment team, including a discussion of the risks, benefits and commonly accepted alternatives to the procedure, as well as the expected consequences of no therapy whatsoever. Discussion of the risks included, but was not limited to, those that are most frequent and those that are rare but possibly severe or life-threatening, as well as the possibility of unforeseen complications. Technique and Findings: Following informed consent, the patient was prepped and draped in the usual sterile fashion. Ultrasound interrogation of the right arm revealed patency and compressibility of right basilic vein. A hard copy ultrasound image was recorded. 1% Lidocaine was used to achieve local anesthesia and a 21-gauge micropuncture needle was used to gain access to the targeted vein. The needle was exchanged over wire for a 5 Estonian peel-away sheath which was used to deploy a PICC line under fluoroscopic guidance such that the distal tip resided at the cavoatrial junction. The catheter flushed and aspirated with ease and was sutured to the skin. Complications: No immediate Impression: 1. Ultrasound guided PICC line placement as described.
--- NOTE | 2016-11-26 12:50 | RAD ---
Procedure: Aortogram, diagnostic left lower extremity arteriogram, and initiation of arterial thrombolysis Clinical Indication: 61-year-old male with acute thrombosis of the left superficial femoral artery status post stent placement 6 weeks prior. Patient's clinical exam reveals a cold foot, with dopplerable popliteal pulse, and non dopplerable anterior tibial and posterior tibial pulses. Sedation: Conscious sedation was administered for 75 minutes. The patient was monitored by a qualified independent observer throughout the time of sedation. Please refer to the medical record for exact doses of medications utilized to achieve moderate sedation. Antibiotics: None Exposure: Kerma-Area Product: 199 Gycm2 Sterility: All elements of maximal sterile barrier technique including the use of a cap, mask, sterile gown, sterile gloves, large sterile sheet, appropriate hand hygiene, and 2% chlorhexidine for cutaneous antisepsis (or acceptable alternative antiseptic per current guidelines) were followed for this procedure. Consent: The procedure was explained in its entirety to the patient or the patients designated direct marketing representative by a member of the treatment team, including a discussion of the risks, benefits and commonly accepted alternatives to the procedure, as well as the expected consequences of no therapy whatsoever. Discussion of the risks included, but was not limited to, those that are most frequent and those that are rare but possibly severe or life-threatening, as well as the possibility of unforeseen complications. Technique: Following informed consent, the patient was prepped and draped in usual sterile fashion. Ultrasound interrogation of the right groin revealed patency of the right common femoral artery. A Hardcopy ultrasound image was recorded as a 21-gauge micropuncture needle was used to gain access to the common femoral artery. The needle was exchanged over a wire for 5 Spanish sheath. A flush catheter was then advanced into the abdominal aorta and contrast aortography was performed. The catheter was then withdrawn to just above the aortic bifurcation and contrast angiography of the pelvis was performed. A Glidewire was then advanced to the contralateral left common femoral artery, and the catheter was advanced over the wire and positioned within the left common femoral artery. Contrast angiography of the left leg was then performed. An angled catheter was then modified into a straight tip, and was used in contact with a Glidewire to gently probe in ultimately across the long segment occlusion of the superficial femoral artery to gain access to the left popliteal artery. Contrast angiography was then performed in this location. This catheter was then exchanged for a 30 cm UniFuse infusion catheter which was advanced over the wire and positioned throughout the length of the SFA thrombus, and TPA thrombolysis was initiated. Findings: The aorta is patent. There is minimal atherosclerotic disease involving the bilateral external iliac and internal iliac arteries. Common femoral arteries are patent. There is abrupt occlusion of the proximal left superficial femoral artery, with occlusion persisting throughout the SFA. There is reconstitution of the popliteal artery just distal to the patient's SFA stent, which then provides direct flow into a widely patent tibioperoneal trunk. The posterior tibial artery is patent to the ankle, but not beyond. The anterior tibial artery and peroneal arteries both occlude in the mid calf. There is minimal perfusion to the foot. Complications: No immediate Impression: 1. Long segment occlusion of the left superficial femoral artery with reconstitution of the popliteal artery. There is subsequent reocclusion of the anterior tibial and peroneal artery at the mid calf, and the posterior tibial artery at the ankle. 2. Initiation of arterial thrombolysis.
--- NOTE | 2016-11-26 13:03 | PDOC1 ---
History and Physical Date of Admission Date of Admission 11/25/16 Identification/Chief Complaint Chief Complaint left leg pain Problems: Source Source: Chart review, Patient History of Present Illness History of Present Illness HPI HPI 61-year-old male presenting to the emergency department today after being transferred by [facility] to us with left leg pain. pt got left SFA stent for PAD on 10/[address] Lam. The stent works fine till yesterday, he was lifting something at home , posssibley pulled a muscle then had left leg pain, cool. Pt went to [facility], doc there concerned about PAD since no palpable or dopplerable pulse at foot and trasnferred here. Pt has severe leg pain. ADMITED to ICU, pt got SFA stent by IR, thrombolysis and cont TPA, HEparin drip overnight. He still has severe left leg pain, the femeral and popliteal pulse can be felt, but left foot feels cool, the dorsal pulse is dopplerable, toes look mild purple. Past Medical History Cardiovascular: CAD, HTN, CA, Hyperlipidemia, Other Pulmonary: Bronchitis GI: No pertinent hx Heme/Onc: No pertinent hx Hepatobiliary: No pertinent hx Psych: No pertinent hx Rheumatologic: No pertinent hx Infectious disease: No pertinent hx Renal/: No pertinent hx Endocrine: Diabetes Past Surgical History Past Surgical History CARDIAC STENTS, ROTATOR CUFF- BILAT, L KNEE MENISCUS Past Surgical History: Other Family History Family History: Hypertension Social History Smoke: No ALCOHOL: none Drugs: None Current Problem List Problem List Problems Medical Problems: (1) Ischemic leg Status: Acute Current Medications Current Medications Current Medications Medications (Trade) Dose Ordered Sig/Lizzeth Start Time Stop Time Status Last Admin Dose Admin Acetaminophen (Tylenol) 650 mg PRN Q6HRS PRN 11/25/16 21:15 Alprazolam (Xanax) 0.25 mg PRN Q8HRS PRN 11/26/16 00:30 11/26/16 01:13 0.25 MG Alteplase, Recombinant 10 mg/ Sodium Chloride 100 ml @ 10 mls/hr 1X ONCE 11/26/16 11:30 11/26/16 21:29 11/26/16 12:25 10 MLS/HR Aspirin (Ecotrin) 81 mg [id number] 11/26/16 08:00 11/26/16 08:26 81 MG Atorvastatin Calcium (Lipitor) 40 mg QHS 11/26/16 21:00 Cefazolin Sodium 50 ml @ 100 mls/hr 1X ONCE 11/26/16 12:00 11/26/16 12:29 DC 11/26/16 12:00 100 MLS/HR Clopidogrel Bisulfate (Plavix) 75 mg [id number] 11/26/16 08:00 11/26/16 08:25 75 MG Dextrose (Dextrose 50%-Water Syringe) 12.5 gm PRN Q15MIN PRN 11/25/16 21:15 Docusate Sodium (Colace) 100 mg PRN DAILY PRN 11/25/16 21:15 Fentanyl Citrate (Fentanyl 2ml Vial) 100 mcg 1X ONCE 11/26/16 11:30 11/26/16 11:31 DC 11/26/16 12:23 100 MCG Heparin Sodium (Porcine) (Heparin 5,000 Units/1,000ml NS) 4,000 unit 1X ONCE 11/25/16 18:30 11/25/16 18:31 DC Heparin Sodium (Porcine) (Heparin Sodium) 5,000 unit 1X ONCE 11/26/16 12:30 11/26/16 12:31 DC 11/26/16 12:37 5,000 UNIT Heparin Sodium/ Dextrose 500 ml @ As Directed STK-MED ONCE 11/25/16 22:39 11/25/16 22:40 DC Heparin Sodium/ Sodium Chloride 1,000 unit 1X ONCE 11/26/16 12:00 11/26/16 12:01 DC 11/26/16 12:22 1,000 UNIT Hydralazine HCl (Apresoline) 10 mg PRN Q4HRS PRN 11/25/16 21:15 11/26/16 02:09 10 MG Hydromorphone HCl (Dilaudid) 2 mg PRN Q2HRS PRN 11/26/16 00:30 11/26/16 08:27 2 MG Insulin Aspart (NovoLOG) 10 units TIDAC 11/26/16 11:30 Insulin Detemir (Levemir) 30 units QHS 11/26/16 21:00 Iodixanol (Visipaque 320) 100 ml 1X ONCE 11/26/16 11:30 11/26/16 11:31 DC 11/26/16 12:24 40 ML Lidocaine/Sodium Bicarbonate (Buffered Lidocaine 1%) 20 ml 1X ONCE 11/26/16 11:30 11/26/16 11:31 DC 11/26/16 12:28 2 ML Metoprolol Tartrate (Lopressor) 50 mg BID 11/26/16 09:00 11/26/16 08:26 50 MG Midazolam HCl (Versed) 2 mg 1X ONCE 11/26/16 11:30 11/26/16 11:31 DC 11/26/16 12:24 1 MG Morphine Sulfate 2 mg PRN Q2HR PRN 11/25/16 21:15 Ondansetron HCl (Zofran) 4 mg PRN Q6HRS PRN 11/25/16 21:15 Oxycodone/ Acetaminophen (Percocet 10325) 1 tab PRN Q4HRS PRN 11/26/16 08:45 Potassium Chloride 20 meq/ Sodium Chloride 1,010 ml @ 75 mls/hr [id number] 11/25/16 22:30 11/25/16 23:13 75 MLS/HR Tramadol HCl (Ultram) 50 mg PRN Q6HRS PRN 11/25/16 21:15 11/26/16 06:04 50 MG Allergies Allergies Allergies Coded Allergies Type Severity Reaction Last Updated Verified No Known Drug Allergies 08/13/16 No ROS Review of System CONSTITUTIONAL: No fever or chills EYES: No recent changes SKIN: No rash or itching CARDIOVASCULAR: No chest pain, syncope, palpitations, or edema RESPIRATORY: No SOB or cough GASTROINTESTINAL: No nausea, vomiting or abdominal pain NEUROLOGICAL: No headaches or weakness ENDOCRINE: No cold or heat intolerance GENITOURINARY: No urgency or frequency of urination MUSCULOSKELETAL: No back pain or joint pain LYMPHATICS: No enlarged lymph nodes PSYCHIATRIC: No anxiety or depression Physical Exam Physical Exam GEN.: No apparent distress. Alert and oriented. HEENT: Head is normocephalic, atraumatic NECK: Supple. LUNGS: Clear to auscultation. HEART: RRR, S1, S2 present. Peripheral pulses intact ABDOMEN: Soft, nontender. Positive bowel sounds. EXTREMITIES: left toes and left foot feels cold, toes mild purple, dorsal pulse is dopplerable, severe left leg pain with tenderness. NEUROLOGIC: Normal speech, normal tone PSYCHIATRIC: Normal affect, normal mood. SKIN: No ulcerations Vitals Vitals Vital Signs Date Time Temp Pulse Resp B/P (MAP) Pulse Ox O2 Delivery O2 Flow Rate FiO2 11/26/16 12:43 94 21 95 Room Air 11/26/16 12:23 2.0 11/26/16 10:00 145/81 (102) 11/26/16 05:08 98.7 98.7 Labs Labs Laboratory Tests Test 11/25/16 16:34 11/25/16 22:09 11/26/16 04:00 11/26/16 04:09 White Blood Count 8.5 x10^3/uL (4.0-11.0) 10.3 x10^3/uL (4.0-11.0) Red Blood Count 5.37 x10^6/uL (4.30-5.70) 5.25 x10^6/uL (4.30-5.70) Hemoglobin 13.9 g/dL (13.0-17.5) 13.4 g/dL (13.0-17.5) 13.4 g/dL (13.0-17.5) Hematocrit 42.6 % (39.0-53.0) 42.1 % (39.0-53.0) Mean Corpuscular Volume 79 fL (79-100) 80 fL (79-100) Mean Corpuscular Hemoglobin 26 pg (25-35) 26 pg (25-35) Mean Corpuscular Hemoglobin Concent 33 g/dL (31-37) 32 g/dL (31-37) Red Cell Distribution Width 15.6 % (11.5-14.5) 15.5 % (11.5-14.5) Platelet Count 259 x10^3/uL (140-400) 189 x10^3/uL (140-400) Neutrophils (%) (Auto) 55 % (31-73) 70 % (31-73) Lymphocytes (%) (Auto) 29 % (24-48) 17 % (24-48) Monocytes (%) (Auto) 12 % (0-9) 11 % (0-9) Eosinophils (%) (Auto) 3 % (0-3) 2 % (0-3) Basophils (%) (Auto) 1 % (0-3) 1 % (0-3) Neutrophils # (Auto) 4.7 x10^3uL (1.8-7.7) 7.2 x10^3uL (1.8-7.7) Lymphocytes # (Auto) 2.4 x10^3/uL (1.0-4.8) 1.8 x10^3/uL (1.0-4.8) Monocytes # (Auto) 1.0 x10^3/uL (0.0-1.1) 1.1 x10^3/uL (0.0-1.1) Eosinophils # (Auto) 0.2 x10^3/uL (0.0-0.7) 0.2 x10^3/uL (0.0-0.7) Basophils # (Auto) 0.1 x10^3/uL (0.0-0.2) 0.1 x10^3/uL (0.0-0.2) Prothrombin Time 11.9 SEC (11.7-14.0) 15.0 SEC (11.7-14.0) Prothromb Time International Ratio 0.9 (0.8-1.1) 1.3 (0.8-1.1) Sodium Level 138 mmol/L (136-145) 139 mmol/L (136-145) Potassium Level 3.9 mmol/L (3.5-5.1) 3.9 mmol/L (3.5-5.1) Chloride Level 104 mmol/L (98-107) 105 mmol/L (98-107) Carbon Dioxide Level 25 mmol/L (21-32) 26 mmol/L (21-32) Anion Gap 9 (6-14) 8 (6-14) Blood Urea Nitrogen 22 mg/dL (8-26) 17 mg/dL (8-26) Creatinine 0.9 mg/dL (0.7-1.3) 0.8 mg/dL (0.7-1.3) Estimated GFR (Cockcroft-Gault) 85.8 98.3 Glucose Level 262 mg/dL (70-99) 231 mg/dL (70-99) Lactic Acid Level 1.3 mmol/L (0.4-2.0) Calcium Level 8.8 mg/dL (8.5-10.1) 8.4 mg/dL (8.5-10.1) Fibrinogen 346 mg/dL (200-440) 279 mg/dL (200-440) Activated Partial Thromboplast Time 34 SEC (24-38) Test 11/26/16 10:00 Hemoglobin 12.7 g/dL (13.0-17.5) Prothrombin Time 15.4 SEC (11.7-14.0) Prothromb Time International Ratio 1.3 (0.8-1.1) Activated Partial Thromboplast Time 34 SEC (24-38) Fibrinogen 241 mg/dL (200-440) Laboratory Tests Test 11/25/16 16:34 11/25/16 22:09 11/26/16 04:00 11/26/16 04:09 White Blood Count 8.5 x10^3/uL (4.0-11.0) 10.3 x10^3/uL (4.0-11.0) Red Blood Count 5.37 x10^6/uL (4.30-5.70) 5.25 x10^6/uL (4.30-5.70) Hemoglobin 13.9 g/dL (13.0-17.5) 13.4 g/dL (13.0-17.5) 13.4 g/dL (13.0-17.5) Hematocrit 42.6 % (39.0-53.0) 42.1 % (39.0-53.0) Mean Corpuscular Volume 79 fL (79-100) 80 fL (79-100) Mean Corpuscular Hemoglobin 26 pg (25-35) 26 pg (25-35) Mean Corpuscular Hemoglobin Concent 33 g/dL (31-37) 32 g/dL (31-37) Red Cell Distribution Width 15.6 % (11.5-14.5) 15.5 % (11.5-14.5) Platelet Count 259 x10^3/uL (140-400) 189 x10^3/uL (140-400) Neutrophils (%) (Auto) 55 % (31-73) 70 % (31-73) Lymphocytes (%) (Auto) 29 % (24-48) 17 % (24-48) Monocytes (%) (Auto) 12 % (0-9) 11 % (0-9) Eosinophils (%) (Auto) 3 % (0-3) 2 % (0-3) Basophils (%) (Auto) 1 % (0-3) 1 % (0-3) Neutrophils # (Auto) 4.7 x10^3uL (1.8-7.7) 7.2 x10^3uL (1.8-7.7) Lymphocytes # (Auto) 2.4 x10^3/uL (1.0-4.8) 1.8 x10^3/uL (1.0-4.8) Monocytes # (Auto) 1.0 x10^3/uL (0.0-1.1) 1.1 x10^3/uL (0.0-1.1) Eosinophils # (Auto) 0.2 x10^3/uL (0.0-0.7) 0.2 x10^3/uL (0.0-0.7) Basophils # (Auto) 0.1 x10^3/uL (0.0-0.2) 0.1 x10^3/uL (0.0-0.2) Prothrombin Time 11.9 SEC (11.7-14.0) 15.0 SEC (11.7-14.0) Prothromb Time International Ratio 0.9 (0.8-1.1) 1.3 (0.8-1.1) Sodium Level 138 mmol/L (136-145) 139 mmol/L (136-145) Potassium Level 3.9 mmol/L (3.5-5.1) 3.9 mmol/L (3.5-5.1) Chloride Level 104 mmol/L (98-107) 105 mmol/L (98-107) Carbon Dioxide Level 25 mmol/L (21-32) 26 mmol/L (21-32) Anion Gap 9 (6-14) 8 (6-14) Blood Urea Nitrogen 22 mg/dL (8-26) 17 mg/dL (8-26) Creatinine 0.9 mg/dL (0.7-1.3) 0.8 mg/dL (0.7-1.3) Estimated GFR (Cockcroft-Gault) 85.8 98.3 Glucose Level 262 mg/dL (70-99) 231 mg/dL (70-99) Lactic Acid Level 1.3 mmol/L (0.4-2.0) Calcium Level 8.8 mg/dL (8.5-10.1) 8.4 mg/dL (8.5-10.1) Fibrinogen 346 mg/dL (200-440) 279 mg/dL (200-440) Activated Partial Thromboplast Time 34 SEC (24-38) Test 11/26/16 10:00 Hemoglobin 12.7 g/dL (13.0-17.5) Prothrombin Time 15.4 SEC (11.7-14.0) Prothromb Time International Ratio 1.3 (0.8-1.1) Activated Partial Thromboplast Time 34 SEC (24-38) Fibrinogen 241 mg/dL (200-440) VTE Prophylaxis Ordered VTE Prophylaxis Devices: Contraindicated VTE Pharmacological Prophylaxi: No Assessment/Plan Assessment/Plan left leg ischemia with recurrent SFA PAD, s/p thrombolysis, thrombectomy, angioplasty and stent placement 11/25, 11/26 recent s/p left SFA stent for stenosis h/o CAD with PCI dm2 htn hld plan: fu with IR, vascular, card on tpa, heparin drip on asa, plavix if can eat later, on levemir 30u qhs, 10u aspart tid, ssi pain control with percocet, dilaudid iv prn cont ICU care AGNIESZKA GAYLE MD Nov 26, 2016 13:03
--- NOTE | 2016-11-26 13:06 | RAD ---
Procedure: Left lower extremity arteriogram for thrombolysis check, mechanical thrombectomy of the superficial femoral artery, posterior tibial artery, and tibioperoneal trunk, balloon angioplasty the superficial femoral artery, and stent placement within the superficial femoral artery. Clinical Indication: 61-year-old with critical limb ischemia of the left leg Sedation: Conscious sedation was administered for 78 minutes. The patient was monitored by a qualified independent observer throughout the time of sedation. Please refer to the medical record for exact doses of medications utilized to achieve moderate sedation. Antibiotics: Antibiotic was administered during the procedure. Exposure: Kerma-Area Product: 53 Gycm2 Contrast: 40 cc of Visipaque 320 contrast media Sterility: All elements of maximal sterile barrier technique including the use of a cap, mask, sterile gown, sterile gloves, large sterile sheet, appropriate hand hygiene, and 2% chlorhexidine for cutaneous antisepsis (or acceptable alternative antiseptic per current guidelines) were followed for this procedure. Consent: The procedure was explained in its entirety to the patient or the patients designated guest experience representative by a member of the treatment team, including a discussion of the risks, benefits and commonly accepted alternatives to the procedure, as well as the expected consequences of no therapy whatsoever. Discussion of the risks included, but was not limited to, those that are most frequent and those that are rare but possibly severe or life-threatening, as well as the possibility of unforeseen complications. Technique and Findings: Following informed consent, the patient was prepped and draped in usual sterile fashion. 1% lidocaine was used to achieve local anesthesia over the right groin. The occlusion wire of the patient's infusion catheter was then removed and contrast arteriography of the left popliteal artery was performed through the existing catheter. The popliteal artery is widely patent, and provides direct in line flow to the anterior tibial artery which is patent to the dorsalis pedis artery of the foot. There is retrograde flow into a patent posterior tibial artery as well. There is now occlusion of the tibioperoneal trunk however. The catheter was then removed and contrast angiography of the left superficial femoral artery was performed from the common femoral artery sheath. This reveals judaism of patency throughout the SFA, with a moderate amount of residual nonocclusive thrombus within the high superficial femoral artery. A mild amount thrombosis is distributed throughout the stents in the mid and distal SFA as well, however this does not appear to be flow-limiting. An angled catheter was then used in conjunction with a grand slam wire to select first the tibioperoneal trunk and subsequently the posterior tibial artery. Contrast angiography of the posterior tibial artery demonstrated short segment proximal occlusion with patency to the level hindfoot distal to this occlusion. A thrombectomy catheter was then advanced over the wire and used to perform thrombectomy throughout the posterior tibial and tibioperoneal trunk, resulting in aspiration of a substantial amount of organized thrombus. Follow-up angiogram demonstrated judaism of flow throughout both vessels, with persistent occlusion of the peroneal artery. The patient was then given 5000 units of heparin intravenously. The AngioJet was then used to perform thrombectomy and rheolytic pharmacomechanical thrombolysis of the high superficial femoral artery. This was followed by angioplasty using a 6 mm x 150 mm angioplasty balloon for a 3 minute inflation time. The balloon was then removed and contrast angiography was performed revealing a focal flow-limiting dissection within the high superficial femoral artery. A 6 mm x 30 mm self expanding terminal stent was then deployed across the dissection and postdilated using 6 mm x 150 mm and post balloon. The balloon was then removed and contrast angiography was performed demonstrating judaism of brisk arterial flow throughout the entire SFA with excellent radiographic appearance, as well as in-line flow to widely patent popliteal artery, tibial peroneal trunk, anterior tibial artery, posterior tibial artery, and peroneal artery. Flow is dominant through the posterior tibial artery which is widely patent to the hindfoot. The anterior tibial artery provides flow to a patent dorsalis pedis artery as well, but slightly more slowly than the posterior arterial flow, suggesting persistent embolic occlusion of the distal small vessels of the forefoot and toes. Peroneal artery appears to occlude in the distal calf. The instruments were then removed, and contrast angiography of the right groin was performed to assess for suitability of a closure device. The sheath was then exchanged for a minx closure device which was successfully utilized to obtain hemostasis. Complications: No immediate Impression: 1. Restored patency of the left SFA, with persistent nonocclusive thrombus within the high segment. 2. Restore patency of the anterior tibial artery to the level of dorsalis pedis artery. There is initially occlusion of the posterior tibial and tibial peroneal trunk. 3. Mandaen of flow to the aforementioned posterior tibial and tibioperoneal trunk status post mechanical thrombectomy. 4. Improved flow in the high superficial femoral artery status post thrombectomy, rheolytic pharmacomechanical thrombolysis, and angioplasty. 5. Unmask focal dissection of the high superficial femoral artery, corresponding to the apex or cap of the patient's long thrombus, successfully excluded with angioplasty and stenting. 6. Final appearance of brisk arterial inflow to the foot via widely patent posterior tibial artery and anterior tibial artery, with suggestion of persistent small vessel embolic phenomenon involving the forefoot and toes. I recommend full systemic anticoagulation for at least 6 weeks prior to transitioning to dual antiplatelet therapy. Additionally, though there are no morphological abnormalities pertaining to the pre-existing SFA stents, the short period of patency would suggest high risk for rethrombosis. Consider femoropopliteal bypass.
[2016-11-26] MEDS: POTASSIUM CL 20MEQ-0.45% NACL 1,000 ML IV SCH (15:45)
[2016-11-26] MEDS: ATORVASTATIN CALCIUM 40 MG TABLET. PO SCH (20:42)
[2016-11-26] MEDS: INSULIN DETEMIR 300 UNITS/3 ML INSULN.PEN. SQ SCH (20:46)
[2016-11-26] MEDS: HEPARIN for IV BOLUS 10,000 UNIT/10 ML VIAL. IV PRN (20:47)
[2016-11-27] VITALS (15 sets, daily range): BP systolic 108–155; BP diastolic 64–85
[2016-11-27 04:06] LABS: BASO # 0.1 x10^3/uL (0.0-0.2); BASO % 1 % (0-3); EOS % 3 % (0-3); HEMATOCRIT 38.1 % (39.0-53.0); HEMOGLOBIN 12.3 g/dL (13.0-17.5); LYMPH # 1.4 x10^3/uL (1.0-4.8); LYMPH % 16 % (24-48); MEAN CORPUSCULAR HEMOGLOBIN 26 pg (25-35); MEAN CORPUSCULAR HGB CONC 32 g/dL (31-37); MEAN CORPUSCULAR VOLUME 80 fL (79-100); MONO % 13 % (0-9); NEUT % 68 % (31-73); PLATELET COUNT 157 x10^3/uL (140-400); RED BLOOD COUNT 4.78 x10^6/uL (4.30-5.70); RED CELL DISTRIBUTION WIDTH 15.7 % (11.5-14.5); WHITE BLOOD COUNT 9.1 x10^3/uL (4.0-11.0)
[2016-11-27] MEDS: POTASSIUM CL 20MEQ-0.45% NACL 1,000 ML IV SCH (04:41)
[2016-11-27] MEDS: HEPARIN 25,000UTS/500ML PREMIX 500 ML IV PRN ×2 (04:43→21:14)
[2016-11-27] MEDS: HEPARIN for IV BOLUS 10,000 UNIT/10 ML VIAL. IV PRN ×2 (04:44→12:50)
[2016-11-27 04:50] LABS: CALCIUM 8.2 mg/dL (8.5-10.1); CREATININE 0.6 mg/dL (0.7-1.3); POTASSIUM 3.8 mmol/L (3.5-5.1)
--- NOTE | 2016-11-27 06:53 | PDOC ---
Provider Note Provider Note VascularF/U " foot feels a lot better" 2+ dp PULSE WARM FOOT WITH GOOD COLOR Imp: Patnt circulation lt leg Plan: Lt fem-pop bypass with rt. leg vein harvest when pt desires, if he does not want surgery now would do Lovenox and coumadin or elequis RAGHAV GIBSON MD Nov 27, 2016 06:53
[2016-11-27] MEDS: INSULIN ASPART 300 UNITS/3 ML INSULN.PEN SQ SCH ×7 (08:00→18:15)
[2016-11-27] MEDS: ASPIRIN ENTERIC COATED 81 MG TABLET.DR. PO SCH (08:47)
[2016-11-27] MEDS: METOPROLOL TART IMMED RELEASE 50 MG TABLET. PO SCH ×2 (08:47→21:44)
[2016-11-27] MEDS: CLOPIDOGREL BISULFATE 75 MG TABLET PO SCH (08:48)
--- NOTE | 2016-11-27 10:10 | PDOC ---
LEANNE CROOK [employer] E[employer]SEMBLER 11/27/16 1010: CARDIO Progress Notes Date and Time Date of Service 11/27/2016 Time of Evaluation 1006 Subjective Subjective: No Chest Pain, No shortness of breath, No Palpitations, No Dizziness, Other (feels OK) Comments: up in chair Vitals Vitals Vital Signs Date Time Temp Pulse Resp B/P (MAP) Pulse Ox O2 Delivery O2 Flow Rate FiO2 11/27/16 09:01 155/69 (97) 11/27/16 09:00 99 19 Room Air 11/27/16 07:00 98.3 97 2.0 98.3 Weight Weight [ ] Input and Output Intake and Output Intake and Output 11/28/16 07:00 Intake Total 480 ml Output Total 800 ml Balance -320 ml Intake Oral 480 ml Output Urine Total 800 ml Laboratory Labs Laboratory Tests Test 11/26/16 13:11 11/26/16 18:46 11/26/16 19:44 11/26/16 19:45 Heparin Anti-Xa Act, Unfractionated 0.32 IU/mL (0.30-0.70) 0.13 IU/mL (0.30-0.70) Glucose (Fingerstick) 149 mg/dL (70-99) 179 mg/dL (70-99) Test 11/27/16 03:23 11/27/16 08:02 White Blood Count 9.1 x10^3/uL (4.0-11.0) Red Blood Count 4.78 x10^6/uL (4.30-5.70) Hemoglobin 12.3 g/dL (13.0-17.5) Hematocrit 38.1 % (39.0-53.0) Mean Corpuscular Volume 80 fL (79-100) Mean Corpuscular Hemoglobin 26 pg (25-35) Mean Corpuscular Hemoglobin Concent 32 g/dL (31-37) Red Cell Distribution Width 15.7 % (11.5-14.5) Platelet Count 157 x10^3/uL (140-400) Neutrophils (%) (Auto) 68 % (31-73) Lymphocytes (%) (Auto) 16 % (24-48) Monocytes (%) (Auto) 13 % (0-9) Eosinophils (%) (Auto) 3 % (0-3) Basophils (%) (Auto) 1 % (0-3) Neutrophils # (Auto) 6.3 x10^3uL (1.8-7.7) Lymphocytes # (Auto) 1.4 x10^3/uL (1.0-4.8) Monocytes # (Auto) 1.2 x10^3/uL (0.0-1.1) Eosinophils # (Auto) 0.2 x10^3/uL (0.0-0.7) Basophils # (Auto) 0.1 x10^3/uL (0.0-0.2) Heparin Anti-Xa Act, Unfractionated 0.19 IU/mL (0.30-0.70) Sodium Level 134 mmol/L (136-145) Potassium Level 3.8 mmol/L (3.5-5.1) Chloride Level 101 mmol/L (98-107) Carbon Dioxide Level 28 mmol/L (21-32) Anion Gap 5 (6-14) Blood Urea Nitrogen 10 mg/dL (8-26) Creatinine 0.6 mg/dL (0.7-1.3) Estimated GFR (Cockcroft-Gault) 137.0 Glucose Level 146 mg/dL (70-99) Calcium Level 8.2 mg/dL (8.5-10.1) Glucose (Fingerstick) 127 mg/dL (70-99) Physical Exam HEENT: Neck Supple W Full Motion Chest: Symmetric LUNGS: Clear to Auscultation Heart: S1S2, RRR, no murmurs Abdomen: Soft N/T Extremities: No Edema Neurology: alert, oriented, follow commands Assessment Assessment 1. Acute thrombosis of LSFA stents re-opened labs for hypercoag state not drawn prior to initiation of hep gtt 2. CAD s/p CABG and PCI 3. HTN 4. DLP Plan Plan 1. surgery to LLE when desired by patient 2. heme-onc to evaluate for ? hypercoagulable state 3. may transfer to CCU 4. continue DAPT JEFFREY PENA MD 11/27/16 1255: CARDIO Progress Notes Plan Plan Patient seen and examined. LLE looks well perfused. Given that he now has complete patency of the SFA, may consider DC on anticoagulation prior to fem pop bypass as a bypass at this time may not be viable with flow down the [place] vessel. Will discuss with vascular surgery. Anticipate home on pradaxa, plavix and aspirin. Pradaxa would be ideal choice given ability to reverse the drug, should emergent surgery be necessary further down the road.Will determine if patient can afford novel anticoagulants. LEANNE CROOK APRN Nov 27, 2016 10:10 JEFFREY PENA MD Nov 27, 2016 21:49
[2016-11-27] MEDS: ANTI-COAG MONITOR BY PHARMACY. MC PRN (11:14)
[2016-11-27] MEDS ORDERED: HEPARIN for IV BOLUS 10,000 UNIT/10 ML VIAL. IV PRN (11:45)
--- NOTE | 2016-11-27 13:12 | PDOC ---
PROGRESS NOTES Chief Complaint Chief Complaint left leg ischemia with recurrent SFA PAD, s/p thrombolysis, thrombectomy, angioplasty and stent placement 11/25, 11/26 recent s/p left SFA stent for stenosis h/o CAD with PCI and CABG dm2 htn hld plan: fu with IR, vascular, card off tpa, cont heparin drip on asa, plavix if can eat later, on levemir 30u qhs, 10u aspart tid, ssi pain control with percocet, dilaudid iv prn ok to transfer out of ICU need 6weeks of AC then asa and plavix as per IR. may need bypass if worse History of Present Illness History of Present Illness ROS: NO fever, chills, sob or chest pain post 2nd IR procedure, foot much better, pulse dopplerable, still on heparin drip leg pain much better Vitals Vitals Vital Signs Date Time Temp Pulse Resp B/P (MAP) Pulse Ox O2 Delivery O2 Flow Rate FiO2 11/27/16 11:00 79 20 128/74 (92) 96 Room Air 11/27/16 07:00 98.3 2.0 98.3 Physical Exam General: Alert, Oriented X3, Cooperative Heart: Regular rate, Normal S1, Normal S2 Lungs: Clear Abdomen: Normal bowel sounds, Soft Extremities: No clubbing, Other (left toes warm , pedal pulse dopplerable) Skin: No rashes Labs LABS Laboratory Tests Test 11/26/16 13:11 11/26/16 18:46 11/26/16 19:44 11/26/16 19:45 Heparin Anti-Xa Act, Unfractionated 0.32 IU/mL (0.30-0.70) 0.13 IU/mL (0.30-0.70) Glucose (Fingerstick) 149 mg/dL (70-99) 179 mg/dL (70-99) Test 11/27/16 03:23 11/27/16 08:02 11/27/16 10:50 11/27/16 12:44 White Blood Count 9.1 x10^3/uL (4.0-11.0) Red Blood Count 4.78 x10^6/uL (4.30-5.70) Hemoglobin 12.3 g/dL (13.0-17.5) Hematocrit 38.1 % (39.0-53.0) Mean Corpuscular Volume 80 fL (79-100) Mean Corpuscular Hemoglobin 26 pg (25-35) Mean Corpuscular Hemoglobin Concent 32 g/dL (31-37) Red Cell Distribution Width 15.7 % (11.5-14.5) Platelet Count 157 x10^3/uL (140-400) Neutrophils (%) (Auto) 68 % (31-73) Lymphocytes (%) (Auto) 16 % (24-48) Monocytes (%) (Auto) 13 % (0-9) Eosinophils (%) (Auto) 3 % (0-3) Basophils (%) (Auto) 1 % (0-3) Neutrophils # (Auto) 6.3 x10^3uL (1.8-7.7) Lymphocytes # (Auto) 1.4 x10^3/uL (1.0-4.8) Monocytes # (Auto) 1.2 x10^3/uL (0.0-1.1) Eosinophils # (Auto) 0.2 x10^3/uL (0.0-0.7) Basophils # (Auto) 0.1 x10^3/uL (0.0-0.2) Heparin Anti-Xa Act, Unfractionated 0.19 IU/mL (0.30-0.70) 0.29 IU/mL (0.30-0.70) Sodium Level 134 mmol/L (136-145) Potassium Level 3.8 mmol/L (3.5-5.1) Chloride Level 101 mmol/L (98-107) Carbon Dioxide Level 28 mmol/L (21-32) Anion Gap 5 (6-14) Blood Urea Nitrogen 10 mg/dL (8-26) Creatinine 0.6 mg/dL (0.7-1.3) Estimated GFR (Cockcroft-Gault) 137.0 Glucose Level 146 mg/dL (70-99) Calcium Level 8.2 mg/dL (8.5-10.1) Glucose (Fingerstick) 127 mg/dL (70-99) 105 mg/dL (70-99) Assessment and Plan Assessmemt and Plan Problems Medical Problems: (1) Ischemic leg Status: Acute Problems: Comment Review of Relevant I have reviewed the following items rachel (where applicable) has been applied. Labs Laboratory Tests Test 11/25/16 16:34 11/25/16 22:09 11/26/16 04:00 11/26/16 04:09 White Blood Count 8.5 x10^3/uL (4.0-11.0) 10.3 x10^3/uL (4.0-11.0) Red Blood Count 5.37 x10^6/uL (4.30-5.70) 5.25 x10^6/uL (4.30-5.70) Hemoglobin 13.9 g/dL (13.0-17.5) 13.4 g/dL (13.0-17.5) 13.4 g/dL (13.0-17.5) Hematocrit 42.6 % (39.0-53.0) 42.1 % (39.0-53.0) Mean Corpuscular Volume 79 fL (79-100) 80 fL (79-100) Mean Corpuscular Hemoglobin 26 pg (25-35) 26 pg (25-35) Mean Corpuscular Hemoglobin Concent 33 g/dL (31-37) 32 g/dL (31-37) Red Cell Distribution Width 15.6 % (11.5-14.5) 15.5 % (11.5-14.5) Platelet Count 259 x10^3/uL (140-400) 189 x10^3/uL (140-400) Neutrophils (%) (Auto) 55 % (31-73) 70 % (31-73) Lymphocytes (%) (Auto) 29 % (24-48) 17 % (24-48) Monocytes (%) (Auto) 12 % (0-9) 11 % (0-9) Eosinophils (%) (Auto) 3 % (0-3) 2 % (0-3) Basophils (%) (Auto) 1 % (0-3) 1 % (0-3) Neutrophils # (Auto) 4.7 x10^3uL (1.8-7.7) 7.2 x10^3uL (1.8-7.7) Lymphocytes # (Auto) 2.4 x10^3/uL (1.0-4.8) 1.8 x10^3/uL (1.0-4.8) Monocytes # (Auto) 1.0 x10^3/uL (0.0-1.1) 1.1 x10^3/uL (0.0-1.1) Eosinophils # (Auto) 0.2 x10^3/uL (0.0-0.7) 0.2 x10^3/uL (0.0-0.7) Basophils # (Auto) 0.1 x10^3/uL (0.0-0.2) 0.1 x10^3/uL (0.0-0.2) Prothrombin Time 11.9 SEC (11.7-14.0) 15.0 SEC (11.7-14.0) Prothromb Time International Ratio 0.9 (0.8-1.1) 1.3 (0.8-1.1) Sodium Level 138 mmol/L (136-145) 139 mmol/L (136-145) Potassium Level 3.9 mmol/L (3.5-5.1) 3.9 mmol/L (3.5-5.1) Chloride Level 104 mmol/L (98-107) 105 mmol/L (98-107) Carbon Dioxide Level 25 mmol/L (21-32) 26 mmol/L (21-32) Anion Gap 9 (6-14) 8 (6-14) Blood Urea Nitrogen 22 mg/dL (8-26) 17 mg/dL (8-26) Creatinine 0.9 mg/dL (0.7-1.3) 0.8 mg/dL (0.7-1.3) Estimated GFR (Cockcroft-Gault) 85.8 98.3 Glucose Level 262 mg/dL (70-99) 231 mg/dL (70-99) Lactic Acid Level 1.3 mmol/L (0.4-2.0) Calcium Level 8.8 mg/dL (8.5-10.1) 8.4 mg/dL (8.5-10.1) Fibrinogen 346 mg/dL (200-440) 279 mg/dL (200-440) Activated Partial Thromboplast Time 34 SEC (24-38) Test 11/26/16 10:00 11/26/16 13:11 11/26/16 18:46 11/26/16 19:44 Hemoglobin 12.7 g/dL (13.0-17.5) Prothrombin Time 15.4 SEC (11.7-14.0) Prothromb Time International Ratio 1.3 (0.8-1.1) Activated Partial Thromboplast Time 34 SEC (24-38) Fibrinogen 241 mg/dL (200-440) Heparin Anti-Xa Act, Unfractionated 0.32 IU/mL (0.30-0.70) Glucose (Fingerstick) 149 mg/dL (70-99) 179 mg/dL (70-99) Test 11/26/16 19:45 11/27/16 03:23 11/27/16 08:02 11/27/16 10:50 Heparin Anti-Xa Act, Unfractionated 0.13 IU/mL (0.30-0.70) 0.19 IU/mL (0.30-0.70) 0.29 IU/mL (0.30-0.70) White Blood Count 9.1 x10^3/uL (4.0-11.0) Red Blood Count 4.78 x10^6/uL (4.30-5.70) Hemoglobin 12.3 g/dL (13.0-17.5) Hematocrit 38.1 % (39.0-53.0) Mean Corpuscular Volume 80 fL (79-100) Mean Corpuscular Hemoglobin 26 pg (25-35) Mean Corpuscular Hemoglobin Concent 32 g/dL (31-37) Red Cell Distribution Width 15.7 % (11.5-14.5) Platelet Count 157 x10^3/uL (140-400) Neutrophils (%) (Auto) 68 % (31-73) Lymphocytes (%) (Auto) 16 % (24-48) Monocytes (%) (Auto) 13 % (0-9) Eosinophils (%) (Auto) 3 % (0-3) Basophils (%) (Auto) 1 % (0-3) Neutrophils # (Auto) 6.3 x10^3uL (1.8-7.7) Lymphocytes # (Auto) 1.4 x10^3/uL (1.0-4.8) Monocytes # (Auto) 1.2 x10^3/uL (0.0-1.1) Eosinophils # (Auto) 0.2 x10^3/uL (0.0-0.7) Basophils # (Auto) 0.1 x10^3/uL (0.0-0.2) Sodium Level 134 mmol/L (136-145) Potassium Level 3.8 mmol/L (3.5-5.1) Chloride Level 101 mmol/L (98-107) Carbon Dioxide Level 28 mmol/L (21-32) Anion Gap 5 (6-14) Blood Urea Nitrogen 10 mg/dL (8-26) Creatinine 0.6 mg/dL (0.7-1.3) Estimated GFR (Cockcroft-Gault) 137.0 Glucose Level 146 mg/dL (70-99) Calcium Level 8.2 mg/dL (8.5-10.1) Glucose (Fingerstick) 127 mg/dL (70-99) Test 11/27/16 12:44 Glucose (Fingerstick) 105 mg/dL (70-99) Laboratory Tests Test 11/26/16 13:11 11/26/16 18:46 11/26/16 19:44 11/26/16 19:45 Heparin Anti-Xa Act, Unfractionated 0.32 IU/mL (0.30-0.70) 0.13 IU/mL (0.30-0.70) Glucose (Fingerstick) 149 mg/dL (70-99) 179 mg/dL (70-99) Test 11/27/16 03:23 11/27/16 08:02 11/27/16 10:50 11/27/16 12:44 White Blood Count 9.1 x10^3/uL (4.0-11.0) Red Blood Count 4.78 x10^6/uL (4.30-5.70) Hemoglobin 12.3 g/dL (13.0-17.5) Hematocrit 38.1 % (39.0-53.0) Mean Corpuscular Volume 80 fL (79-100) Mean Corpuscular Hemoglobin 26 pg (25-35) Mean Corpuscular Hemoglobin Concent 32 g/dL (31-37) Red Cell Distribution Width 15.7 % (11.5-14.5) Platelet Count 157 x10^3/uL (140-400) Neutrophils (%) (Auto) 68 % (31-73) Lymphocytes (%) (Auto) 16 % (24-48) Monocytes (%) (Auto) 13 % (0-9) Eosinophils (%) (Auto) 3 % (0-3) Basophils (%) (Auto) 1 % (0-3) Neutrophils # (Auto) 6.3 x10^3uL (1.8-7.7) Lymphocytes # (Auto) 1.4 x10^3/uL (1.0-4.8) Monocytes # (Auto) 1.2 x10^3/uL (0.0-1.1) Eosinophils # (Auto) 0.2 x10^3/uL (0.0-0.7) Basophils # (Auto) 0.1 x10^3/uL (0.0-0.2) Heparin Anti-Xa Act, Unfractionated 0.19 IU/mL (0.30-0.70) 0.29 IU/mL (0.30-0.70) Sodium Level 134 mmol/L (136-145) Potassium Level 3.8 mmol/L (3.5-5.1) Chloride Level 101 mmol/L (98-107) Carbon Dioxide Level 28 mmol/L (21-32) Anion Gap 5 (6-14) Blood Urea Nitrogen 10 mg/dL (8-26) Creatinine 0.6 mg/dL (0.7-1.3) Estimated GFR (Cockcroft-Gault) 137.0 Glucose Level 146 mg/dL (70-99) Calcium Level 8.2 mg/dL (8.5-10.1) Glucose (Fingerstick) 127 mg/dL (70-99) 105 mg/dL (70-99) Medications Current Medications Hydromorphone HCl (Dilaudid) 0.5 mg PRN Q30MIN PRN IV SEVERE PAIN Last administered on 11/26/16 00:02; Start 11/25/16 at 18:30; Stop 11/26/16 at 00:02 ; Status DC Ondansetron HCl (Zofran) 4 mg 1X ONCE IV Last administered on 11/25/16 20:16 ; Start 11/25/16 at 18:30; Stop 11/25/16 at 18:31; Status DC Heparin Sodium (Porcine) (Heparin 5,000 Units/1,000ml NS) 4,000 unit 1X ONCE IV ; Start 11/25/16 at 18:30; Stop 11/25/16 at 18:31; Status DC Ondansetron HCl (Zofran) 4 mg PRN Q8HRS PRN IV NAUSEA/VOMITING; Start 11/25/16 at 19:00; Stop 11/26/16 at 07:47; Status DC Morphine Sulfate 2 mg PRN Q2HR PRN IV PAIN Last administered on 11/26/16 02:10 ; Start 11/25/16 at 19:00; Stop 11/26/16 at 07:47; Status DC Heparin Sodium (Porcine) (Heparin Sodium) 4,000 unit 1X ONCE IV Last administered on 11/25/16 19:20; Start 11/25/16 at 19:15; Stop 11/25/16 at 19:16 ; Status DC Iodixanol (Visipaque 320) 100 ml STK-MED ONCE .ROUTE ; Start 11/25/16 at 19:11; Stop 11/25/16 at 19:12; Status DC Heparin Sodium/ Sodium Chloride 1,000 ml @ As Directed STK-MED ONCE .ROUTE ; Start 11/25/16 at 19:11; Stop 11/25/16 at 19:12; Status DC Lidocaine/Sodium Bicarbonate (Buffered Lidocaine 1%) 20 ml STK-MED ONCE IJ ; Start 11/25/16 at 19:27; Stop 11/25/16 at 19:28; Status DC Fentanyl Citrate (Fentanyl 2ml Vial) 100 mcg STK-MED ONCE .ROUTE ; Start at 20:13; Stop 11/25/16 at 20:14; Status DC Midazolam HCl (Versed) 2 mg STK-MED ONCE .ROUTE ; Start 11/25/16 at 20:13; Stop 11/25/16 at 20:14; Status DC Heparin Sodium/ Sodium Chloride 1,000 unit 1X ONCE IART Last administered on 11/25/16 22:48; Start 11/25/16 at 21:00; Stop 11/25/16 at 21:01; Status DC Lidocaine/Sodium Bicarbonate (Buffered Lidocaine 1%) 20 ml 1X ONCE IJ Last administered on 11/25/16 22:48; Start 11/25/16 at 21:00; Stop 11/25/16 at 21:01 ; Status DC Midazolam HCl (Versed) 2 mg 1X ONCE IV Last administered on 11/25/16 22:49; Start 11/25/16 at 21:00; Stop 11/25/16 at 21:01; Status DC Fentanyl Citrate (Fentanyl 2ml Vial) 100 mcg 1X ONCE IV Last administered on 11/25/16 22:49; Start 11/25/16 at 21:00; Stop 11/25/16 at 21:01; Status DC Iodixanol (Visipaque 320) 100 ml 1X ONCE IART Last administered on 11/25/16 22:49; Start 11/25/16 at 21:00; Stop 11/25/16 at 21:01; Status DC Insulin Aspart (NovoLOG) 0-9 UNITS TIDWMEALS SQ ; Start 11/26/16 at 08:00 Dextrose (Dextrose 50%-Water Syringe) 12.5 gm PRN Q15MIN PRN IV SEE COMMENTS; Start 11/25/16 at 21:15 Acetaminophen (Tylenol) 650 mg PRN Q6HRS PRN PO FEVER; Start 11/25/16 at 21:15 Ondansetron HCl (Zofran) 4 mg PRN Q6HRS PRN IV NAUSEA/VOMITING; Start 11/25/16 at 21:15 Morphine Sulfate 2 mg PRN Q2HR PRN IV MILD TO MOD PAIN; Start 11/25/16 at 21:15 Tramadol HCl (Ultram) 50 mg PRN Q6HRS PRN PO PAIN Last administered on 20:43; Start 11/25/16 at 21:15 Hydralazine HCl (Apresoline) 10 mg PRN Q4HRS PRN IVP ELEVATED BP, SEE COMMENTS Last administered on 11/26/16 02:09; Start 11/25/16 at 21:15 Docusate Sodium (Colace) 100 mg PRN DAILY PRN PO CONSTIPATION; Start 11/25/16 at 21:15 Heparin Sodium (Porcine) (Heparin Sodium) 10,000 unit STK-MED ONCE .ROUTE ; Start 11/25/16 at 21:15; Stop 11/25/16 at 21:16; Status DC Heparin Sodium (Porcine) (Heparin Sodium) 5,000 unit 1X ONCE IV Last administered on 11/25/16 22:53; Start 11/25/16 at 21:30; Stop 11/25/16 at 21:31 ; Status DC Alteplase, Recombinant 10 mg/ Sodium Chloride 50 ml @ 5 mls/hr 1X ONCE IV Last administered on 11/25/16 23:12; Start 11/25/16 at 22:15; Stop 11/26/16 at 03:11; Status DC Heparin Sodium/ Dextrose 500 ml @ 0 mls/hr CONT PRN IV SEE I/O RECORD Last administered on 11/27/16 04:43; Start 11/25/16 at 22:30; Stop 11/27/16 at 11:37 ; Status DC Potassium Chloride 20 meq/ Sodium Chloride 1,010 ml @ 75 mls/hr [id number] IV Last administered on 11/25/16 23:13; Start 11/25/16 at 22:30; Stop 11/26/16 at 15:44; Status DC Heparin Sodium/ Dextrose 500 ml @ As Directed STK-MED ONCE IV ; Start 11/25/16 at 22:39; Stop 11/25/16 at 22:40; Status DC Hydromorphone HCl (Dilaudid) 2 mg PRN Q2HRS PRN IVP SEVERE, BREAKTHROUGH PAIN Last administered on 11/26/16 13:36; Start 11/26/16 at 00:30 Alprazolam (Xanax) 0.25 mg PRN Q8HRS PRN PO ANXIETY / AGITATION Last administered on 11/26/16 01:13; Start 11/26/16 at 00:30 Alteplase, Recombinant 10 mg/ Sodium Chloride 50 ml @ 5 mls/hr 1X ONCE IV Last administered on 11/26/16 03:43; Start 11/26/16 at 03:30; Stop 11/26/16 at 13:29; Status DC Aspirin (Ecotrin) 81 mg [id number] PO Last administered on 11/27/16 08:47; Start 11/26/16 at 08:00 Atorvastatin Calcium (Lipitor) 40 mg QHS PO Last administered on 11/26/16 20: 42; Start 11/26/16 at 21:00 Metoprolol Tartrate (Lopressor) 50 mg BID PO Last administered on 11/27/16 08: 47; Start 11/26/16 at 09:00 Clopidogrel Bisulfate (Plavix) 75 mg [id number] PO Last administered on 08:48; Start 11/26/16 at 08:00 Insulin Detemir (Levemir) 30 units QHS SQ Last administered on 11/26/16 20:46 ; Start 11/26/16 at 21:00 Insulin Aspart (NovoLOG) 10 units TIDAC SQ Last administered on 11/27/16 12:53 ; Start 11/26/16 at 11:30 Oxycodone/ Acetaminophen (Percocet 10/325) 1 tab PRN Q4HRS PRN PO PAIN; Start 11/26/16 at 08:45 Iodixanol (Visipaque 320) 100 ml STK-MED ONCE .ROUTE ; Start 11/26/16 at 10:26; Stop 11/26/16 at 10:27; Status DC Heparin Sodium/ Sodium Chloride 1,000 ml @ As Directed STK-MED ONCE .ROUTE ; Start 11/26/16 at 10:26; Stop 11/26/16 at 10:27; Status DC Lidocaine/Sodium Bicarbonate (Buffered Lidocaine 1%) 20 ml STK-MED ONCE IJ ; Start 11/26/16 at 10:29; Stop 11/26/16 at 10:30; Status DC Fentanyl Citrate (Fentanyl 2ml Vial) 100 mcg STK-MED ONCE .ROUTE ; Start at 11:14; Stop 11/26/16 at 11:15; Status DC Midazolam HCl (Versed) 2 mg STK-MED ONCE .ROUTE ; Start 11/26/16 at 11:14; Stop 11/26/16 at 11:15; Status DC Heparin Sodium/ Sodium Chloride 1,000 unit 1X ONCE IART Last administered on 11/26/16 12:22; Start 11/26/16 at 11:30; Stop 11/26/16 at 11:31; Status DC Lidocaine/Sodium Bicarbonate (Buffered Lidocaine 1%) 20 ml 1X ONCE IJ Last administered on 11/26/16 12:28; Start 11/26/16 at 11:30; Stop 11/26/16 at 11:31 ; Status DC Midazolam HCl (Versed) 2 mg 1X ONCE IV Last administered on 11/26/16 12:24; Start 11/26/16 at 11:30; Stop 11/26/16 at 11:31; Status DC Fentanyl Citrate (Fentanyl 2ml Vial) 100 mcg 1X ONCE IV Last administered on 11/26/16 12:23; Start 11/26/16 at 11:30; Stop 11/26/16 at 11:31; Status DC Iodixanol (Visipaque 320) 100 ml 1X ONCE IART Last administered on 11/26/16 12:24; Start 11/26/16 at 11:30; Stop 11/26/16 at 11:31; Status DC Alteplase, Recombinant 10 mg/ Sodium Chloride 100 ml @ 10 mls/hr 1X ONCE IV Last administered on 11/26/16 12:25; Start 11/26/16 at 11:30; Stop 11/26/16 at 21:29; Status DC Heparin Sodium/ Sodium Chloride 500 ml @ As Directed STK-MED ONCE .ROUTE ; Start 11/26/16 at 11:25; Stop 11/26/16 at 11:26; Status DC Heparin Sodium/ Sodium Chloride 500 ml @ As Directed STK-MED ONCE .ROUTE ; Start 11/26/16 at 11:51; Stop 11/26/16 at 11:52; Status DC Cefazolin Sodium 50 ml @ As Directed STK-MED ONCE IV ; Start 11/26/16 at 11:52; Stop 11/26/16 at 11:53; Status DC Heparin Sodium/ Sodium Chloride 1,000 unit 1X ONCE IART Last administered on 11/26/16 12:22; Start 11/26/16 at 12:00; Stop 11/26/16 at 12:01; Status DC Heparin Sodium/ Sodium Chloride 1,000 unit 1X ONCE IART Last administered on 11/26/16 12:22; Start 11/26/16 at 12:00; Stop 11/26/16 at 12:01; Status DC Cefazolin Sodium 50 ml @ 100 mls/hr 1X ONCE IV Last administered on 12:00; Start 11/26/16 at 12:00; Stop 11/26/16 at 12:29; Status DC Heparin Sodium (Porcine) (Heparin Sodium) 10,000 unit STK-MED ONCE .ROUTE ; Start 11/26/16 at 12:11; Stop 11/26/16 at 12:12; Status DC Heparin Sodium (Porcine) (Heparin Sodium) 5,000 unit 1X ONCE IV Last administered on 11/26/16 12:37; Start 11/26/16 at 12:30; Stop 11/26/16 at 12:31 ; Status DC Heparin Sodium/ Dextrose 500 ml @ 20 mls/hr CONT PRN IV SEE I/O RECORD; Start 11/26/16 at 12:45; Status Cancel Heparin Sodium (Porcine) (Heparin Sodium) 2,300 unit PRN Q6HRS PRN IV FOR UFH LEVEL LESS THAN 0.2 Last administered on 11/27/16 04:44; Start 11/26/16 at 12: 45 Potassium Chloride/Sodium Chloride 1,000 ml @ 75 mls/hr [id number] IV Last administered on 11/27/16 04:41; Start 11/26/16 at 15:45; Stop 11/27/16 at 10:44 ; Status DC Info (Anti-Coagulation Monitoring By Pharmacy) 1 each PRN DAILY PRN MC SEE COMMENTS Last administered on 11/27/16 11:14; Start 11/27/16 at 08:30 Heparin Sodium/ Dextrose 500 ml @ 0 mls/hr CONT PRN IV SEE I/O RECORD; Start 11/27/16 at 11:45 Heparin Sodium (Porcine) (Heparin Sodium) 2,750 unit PRN Q6HRS PRN IV FOR UFH LEVEL LESS THAN 0.2; Start 11/27/16 at 11:45 Heparin Sodium (Porcine) (Heparin Sodium) 1,400 unit PRN Q6HRS PRN IV FOR UFH LEVEL 0.2 - 0.29 Last administered on 11/27/16 12:50; Start 11/27/16 at 11:45 Active Scripts Active Aspirin Ec (Aspirin) 81 Mg Tablet.dr 1 Tab PO DAILY Clopidogrel (Clopidogrel Bisulfate) 75 Mg Tablet 1 Tab PO DAILY Oxycodone-Acetaminophen 5-325 (Oxycodone Hcl/Acetaminophen) 1 Each Tablet 1 Tab PO PRN Q4HRS PRN Metoprolol Tartrate 50 Mg Tablet 0.5 Tab PO BID Lantus Solostar (Insulin Glargine,Hum.rec.anlog) 100 Unit/1 Ml Insuln.pen 38 Unit SQ QHS Atorvastatin Calcium 40 Mg Tablet 40 Mg PO QHS 30 Days Reported NITROGLYCERIN SubLingual (Nitroglycerin) 0.4 Mg Tab.subl 1 Tab SL UD Novolog Flexpen (Insulin Aspart) 100 Unit/1 Ml Insuln.pen 12 Unit SQ TIDAC Vitals/I & O Vital Sign - Last 24 Hours 10/8/17 10/8/17 10/8/17 10/8/17 13:15 13:30 13:36 13:45 Temp 99.0 99.0 Pulse 94 92 90 Resp 12 14 14 B/P (MAP) 147/89 (108) 129/86 (100) 135/86 (102) Pulse Ox 93 95 95 95 O2 Delivery Room Air Room Air Room Air Room Air 11/26/16 11/26/16 11/26/16 11/26/16 14:00 14:06 15:00 16:00 Pulse 92 94 92 Resp 16 14 14 B/P (MAP) 144/86 (105) 123/64 (83) 148/48 (81) Pulse Ox 97 95 99 99 O2 Delivery Room Air Nasal Cannula Room Air Room Air O2 Flow Rate 2.0 11/26/16 11/26/16 11/26/16 11/26/16 16:00 16:00 18:00 20:00 Temp 99.1 98.7 99.1 98.7 Pulse 94 92 96 Resp 12 14 18 B/P (MAP) 134/48 (76) 137/80 (99) 131/74 (93) Pulse Ox 98 98 97 O2 Delivery Room Air Room Air Room Air Nasal Cannula 11/26/16 11/26/16 11/26/16 11/26/16 20:00 20:43 20:44 21:00 Pulse 96 98 Resp 16 18 B/P (MAP) 131/74 135/60 (85) Pulse Ox 97 97 O2 Delivery Nasal Cannula Nasal Cannula Nasal Cannula O2 Flow Rate 2.0 2.0 11/26/16 11/26/16 11/26/16 11/26/16 21:43 22:00 23:45 23:45 Temp 98.5 98.5 Pulse 88 89 Resp 16 18 18 B/P (MAP) 105/65 (78) 115/67 (83) Pulse Ox 97 98 99 O2 Delivery Nasal Cannula Nasal Cannula Nasal Cannula Nasal Cannula O2 Flow Rate 2.0 2.0 11/27/16 11/27/16 11/27/16 11/27/16 00:00 01:00 02:00 03:00 Pulse 89 88 94 94 Resp 20 20 20 20 B/P (MAP) 114/74 (87) 119/67 (84) 108/64 (79) 120/72 (88) Pulse Ox 98 98 98 98 O2 Delivery Nasal Cannula Nasal Cannula Nasal Cannula Nasal Cannula 11/27/16 11/27/16 11/27/16 11/27/16 04:00 04:00 05:00 06:00 Temp 98.5 98.5 Pulse 89 92 92 Resp 20 16 19 B/P (MAP) 132/74 (93) 131/72 (91) 140/72 (94) Pulse Ox 98 100 100 O2 Delivery Nasal Cannula Nasal Cannula Nasal Cannula Nasal Cannula O2 Flow Rate 2.0 11/27/16 11/27/16 11/27/16 11/27/16 07:00 08:00 08:47 09:00 Temp 98.3 98.3 Pulse 97 99 97 99 Resp 18 19 19 B/P (MAP) 140/75 (96) 127/73 (91) 140/75 127/73 (91) Pulse Ox 97 O2 Delivery Nasal Cannula Room Air Room Air O2 Flow Rate 2.0 11/27/16 11/27/16 09:01 11:00 Pulse 79 Resp 20 B/P (MAP) 155/69 (97) 128/74 (92) Pulse Ox 96 O2 Delivery Room Air Intake and Output 11/27/16 11/27/16 11/28/16 15:00 23:00 07:00 Intake Total 1030 ml Output Total 1400 ml Balance -370 ml AGNIESZKA GAYLE MD Nov 27, 2016 13:12
--- NOTE | 2016-11-27 16:53 | CONS ---
DATE OF CONSULTATION: 11/27/2016 REQUESTING PHYSICIAN: Dr. Jeffrey Lam. REASON FOR CONSULTATION: To evaluate for hypercoagulable state in a patient with left superior femoral arterial thrombosis. HISTORY OF PRESENT ILLNESS: The patient is a 61-year-old gentleman who has a history of coronary artery disease and he has had a stent placed that was thrombosed and then stabilized. He had superior femoral artery stent for peripheral arterial disease on 10/10/[address] Lam. On 11/25/2016, he was lifting something at home and he felt that he pulled a muscle and he started noticing acute onset of left leg pain. He went to [facility] and there was concern about peripheral arterial disease and there was no palpable pulse and hence he was [facility]. He had severe pain. He underwent abdominal angiography on 11/25/2016 which revealed long segment occlusion of the left superficial femoral artery with reconstitution of the popliteal artery. There was subsequent reocclusion of the anterior tibial and peroneal artery at the mid calf and the posterior tibial artery at the left ankle. Arterial thrombosis was initiated. He underwent duplex scan of the lower extremity arteries on 11/25/2016 which revealed no arterial waveform in the superficial femoral artery. The patient was reviewed by Interventional Radiology and he underwent a left superficial femoral artery with stent thrombolysis, TPA and then heparin drip. I was asked to evaluate the patient for hypercoagulable state. PAST MEDICAL HISTORY: Coronary artery disease, hypertension, myocardial infarction, hyperlipidemia, bronchitis, diabetes mellitus. PAST SURGICAL HISTORY: Cardiac stents, rotator cuff surgery, bilateral knee meniscus repair. FAMILY HISTORY: Positive for hypertension. No history of thromboembolic events. SOCIAL HISTORY: No smoking or alcohol abuse. REVIEW OF SYSTEMS: A 12-point review of system was performed. Pertinent positives are mentioned in the history of present illness. Rest of the system review is negative. PHYSICAL EXAMINATION: GENERAL APPEARANCE: The patient is a 61-year-old gentleman who is in no acute cardiorespiratory distress. VITAL SIGNS: Blood pressure 128/74, temperature 98.3. HEAD: Atraumatic, normocephalic. EYES: No icterus. NECK: Supple. CHEST: Bilaterally symmetrical. HEART: S1, S2 normal. ABDOMEN: Soft, nontender. No hepatosplenomegaly. CENTRAL NERVOUS SYSTEM: No focal deficits. LYMPHATICS: No lymphadenopathy. SKIN: No rashes. PSYCHOLOGIC: Mood and affect are appropriate. MUSCULOSKELETAL: No joint effusions. LABORATORY DATA: WBC 9.1, hemoglobin 12.3, platelet count 157. Creatinine 0.6, calcium 8.2. IMPRESSION AND PLAN: 1. Left superficial femoral artery stent thrombosis. He has had prior history of thrombosis of the coronary artery stents. Hence Hematology consult was requested for workup for hypercoagulable state. I will initiate workup with prothrombin gene mutation and factor V Leiden. Since he is already started on heparin, results of protein C, protein S, antithrombin 3 and lupus anticoagulant now will be accurate. These may have to be repeated after completion of anticoagulation. Continue anticoagulation per Dr. Lam/Cardiology. Appreciate Vascular Surgery consultation. Appreciate Interventional Radiology consultation for status post thrombolysis. 2. Anemia, mild. Hemoglobin normal on 11/25/2016. Continue to monitor. No evidence of bleeding. 3. Coronary artery disease, status post stent placement. I discussed with Cardiology. SHANTHI DECKER MD DR: DELMY/nts JOB#: [id number] / [id number] JEFFREY Flowers MD
[2016-11-27] MEDS: ATORVASTATIN CALCIUM 40 MG TABLET. PO SCH (21:43)
[2016-11-27] MEDS: INSULIN DETEMIR 300 UNITS/3 ML INSULN.PEN. SQ SCH (21:46)
[2016-11-28] MEDS: HEPARIN for IV BOLUS 10,000 UNIT/10 ML VIAL. IV PRN (03:39)
[2016-11-28 04:53] VITALS: BP 137/85
[2016-11-28] MEDS: INSULIN ASPART 300 UNITS/3 ML INSULN.PEN SQ SCH ×6 (07:30→17:00)
[2016-11-28 07:48] VITALS: BP 133/75
--- NOTE | 2016-11-28 08:11 | PDOC ---
Provider Note Provider Note AF VSS left foot warm with palpable DP pulse, intact motor/sensory function right foot warm, right groin with no hematoma A/P s/p thrombolysis of left SFA thrombosed stent with a good result - Pt now has good circulation with palpable pulse. He would like to avoid bypass surgery if possible which I think is reasonable with this good result. He will need full anticoagulation with plavix and pradaxa or eliquis. Follow up with Dr. Mayer in 2-3 weeks. GINGER ULLOA MD Nov 28, 2016 08:11
[2016-11-28] MEDS: CLOPIDOGREL BISULFATE 75 MG TABLET PO SCH (08:58)
[2016-11-28] MEDS: METOPROLOL TART IMMED RELEASE 50 MG TABLET. PO SCH ×2 (08:58→21:18)
[2016-11-28] MEDS: ASPIRIN ENTERIC COATED 81 MG TABLET.DR. PO SCH (08:58)
[2016-11-28] MEDS: HEPARIN 25,000UTS/500ML PREMIX 500 ML IV PRN (10:20)
[2016-11-28 10:25] VITALS: BP 113/67
--- NOTE | 2016-11-28 14:20 | PDOC ---
PROGRESS NOTES Chief Complaint Chief Complaint left leg ischemia with recurrent SFA PAD, s/p thrombolysis, thrombectomy, angioplasty and stent placement 11/25, 11/26 recent s/p left SFA stent for stenosis h/o CAD with PCI and CABG dm2 htn hld plan: fu with IR, vascular, card off tpa, cont heparin drip, off heparin when takes pradaxa today on asa, plavix if can eat later, on levemir 30u qhs, 10u aspart tid, ssi pain control with percocet, dilaudid iv prn pt possibly has hypercoagulation state fu with onco as outpt cont pradaxa , plavix and asa when dc tmr for 4 weeks and fu with card in the office. History of Present Illness History of Present Illness ROS: NO fever, chills, sob or chest pain post 2nd IR procedure, foot much better, pulse dopplerable, still on heparin drip no leg pain Vitals Vitals Vital Signs Date Time Temp Pulse Resp B/P (MAP) Pulse Ox O2 Delivery O2 Flow Rate FiO2 11/28/16 12:24 Room Air 11/28/16 10:25 97.8 100 19 113/67 (82) 97 97.8 11/27/16 07:00 2.0 Physical Exam General: Alert, Oriented X3, Cooperative Heart: Regular rate, Normal S1, Normal S2 Lungs: Clear Abdomen: Normal bowel sounds, Soft Extremities: No clubbing, Other (left toes warm , pedal pulse dopplerable) Skin: No rashes Labs LABS Laboratory Tests Test 11/27/16 18:07 11/27/16 19:28 11/27/16 21:43 11/28/16 01:45 Glucose (Fingerstick) 159 mg/dL (70-99) 203 mg/dL (70-99) Heparin Anti-Xa Act, Unfractionated 0.33 IU/mL (0.30-0.70) 0.26 IU/mL (0.30-0.70) Test 11/28/16 07:46 11/28/16 09:05 11/28/16 11:39 Glucose (Fingerstick) 141 mg/dL (70-99) 250 mg/dL (70-99) Heparin Anti-Xa Act, Unfractionated 0.42 IU/mL (0.30-0.70) Assessment and Plan Assessmemt and Plan Problems Medical Problems: (1) Ischemic leg Status: Acute Problems: Comment Review of Relevant I have reviewed the following items rachel (where applicable) has been applied. Labs Laboratory Tests Test 11/26/16 18:46 11/26/16 19:44 11/26/16 19:45 11/27/16 03:23 Glucose (Fingerstick) 149 mg/dL (70-99) 179 mg/dL (70-99) Heparin Anti-Xa Act, Unfractionated 0.13 IU/mL (0.30-0.70) 0.19 IU/mL (0.30-0.70) White Blood Count 9.1 x10^3/uL (4.0-11.0) Red Blood Count 4.78 x10^6/uL (4.30-5.70) Hemoglobin 12.3 g/dL (13.0-17.5) Hematocrit 38.1 % (39.0-53.0) Mean Corpuscular Volume 80 fL (79-100) Mean Corpuscular Hemoglobin 26 pg (25-35) Mean Corpuscular Hemoglobin Concent 32 g/dL (31-37) Red Cell Distribution Width 15.7 % (11.5-14.5) Platelet Count 157 x10^3/uL (140-400) Neutrophils (%) (Auto) 68 % (31-73) Lymphocytes (%) (Auto) 16 % (24-48) Monocytes (%) (Auto) 13 % (0-9) Eosinophils (%) (Auto) 3 % (0-3) Basophils (%) (Auto) 1 % (0-3) Neutrophils # (Auto) 6.3 x10^3uL (1.8-7.7) Lymphocytes # (Auto) 1.4 x10^3/uL (1.0-4.8) Monocytes # (Auto) 1.2 x10^3/uL (0.0-1.1) Eosinophils # (Auto) 0.2 x10^3/uL (0.0-0.7) Basophils # (Auto) 0.1 x10^3/uL (0.0-0.2) Sodium Level 134 mmol/L (136-145) Potassium Level 3.8 mmol/L (3.5-5.1) Chloride Level 101 mmol/L (98-107) Carbon Dioxide Level 28 mmol/L (21-32) Anion Gap 5 (6-14) Blood Urea Nitrogen 10 mg/dL (8-26) Creatinine 0.6 mg/dL (0.7-1.3) Estimated GFR (Cockcroft-Gault) 137.0 Glucose Level 146 mg/dL (70-99) Calcium Level 8.2 mg/dL (8.5-10.1) Test 11/27/16 08:02 11/27/16 10:50 11/27/16 11:05 11/27/16 12:44 Glucose (Fingerstick) 127 mg/dL (70-99) 105 mg/dL (70-99) Heparin Anti-Xa Act, Unfractionated 0.29 IU/mL (0.30-0.70) Nasal Screen MRSA (PCR) Negative (Negative) Test 11/27/16 18:07 11/27/16 19:28 11/27/16 21:43 11/28/16 01:45 Glucose (Fingerstick) 159 mg/dL (70-99) 203 mg/dL (70-99) Heparin Anti-Xa Act, Unfractionated 0.33 IU/mL (0.30-0.70) 0.26 IU/mL (0.30-0.70) Test 11/28/16 07:46 11/28/16 09:05 11/28/16 11:39 Glucose (Fingerstick) 141 mg/dL (70-99) 250 mg/dL (70-99) Heparin Anti-Xa Act, Unfractionated 0.42 IU/mL (0.30-0.70) Laboratory Tests Test 11/27/16 18:07 11/27/16 19:28 11/27/16 21:43 11/28/16 01:45 Glucose (Fingerstick) 159 mg/dL (70-99) 203 mg/dL (70-99) Heparin Anti-Xa Act, Unfractionated 0.33 IU/mL (0.30-0.70) 0.26 IU/mL (0.30-0.70) Test 11/28/16 07:46 11/28/16 09:05 11/28/16 11:39 Glucose (Fingerstick) 141 mg/dL (70-99) 250 mg/dL (70-99) Heparin Anti-Xa Act, Unfractionated 0.42 IU/mL (0.30-0.70) Medications Current Medications Hydromorphone HCl (Dilaudid) 0.5 mg PRN Q30MIN PRN IV SEVERE PAIN Last administered on 11/26/16 00:02; Start 11/25/16 at 18:30; Stop 11/26/16 at 00:02 ; Status DC Ondansetron HCl (Zofran) 4 mg 1X ONCE IV Last administered on 11/25/16 20:16 ; Start 11/25/16 at 18:30; Stop 11/25/16 at 18:31; Status DC Heparin Sodium (Porcine) (Heparin 5,000 Units/1,000ml NS) 4,000 unit 1X ONCE IV ; Start 11/25/16 at 18:30; Stop 11/25/16 at 18:31; Status DC Ondansetron HCl (Zofran) 4 mg PRN Q8HRS PRN IV NAUSEA/VOMITING; Start 11/25/16 at 19:00; Stop 11/26/16 at 07:47; Status DC Morphine Sulfate 2 mg PRN Q2HR PRN IV PAIN Last administered on 11/26/16 02:10 ; Start 11/25/16 at 19:00; Stop 11/26/16 at 07:47; Status DC Heparin Sodium (Porcine) (Heparin Sodium) 4,000 unit 1X ONCE IV Last administered on 11/25/16 19:20; Start 11/25/16 at 19:15; Stop 11/25/16 at 19:16 ; Status DC Iodixanol (Visipaque 320) 100 ml STK-MED ONCE .ROUTE ; Start 11/25/16 at 19:11; Stop 11/25/16 at 19:12; Status DC Heparin Sodium/ Sodium Chloride 1,000 ml @ As Directed STK-MED ONCE .ROUTE ; Start 11/25/16 at 19:11; Stop 11/25/16 at 19:12; Status DC Lidocaine/Sodium Bicarbonate (Buffered Lidocaine 1%) 20 ml STK-MED ONCE IJ ; Start 11/25/16 at 19:27; Stop 11/25/16 at 19:28; Status DC Fentanyl Citrate (Fentanyl 2ml Vial) 100 mcg STK-MED ONCE .ROUTE ; Start at 20:13; Stop 11/25/16 at 20:14; Status DC Midazolam HCl (Versed) 2 mg STK-MED ONCE .ROUTE ; Start 11/25/16 at 20:13; Stop 11/25/16 at 20:14; Status DC Heparin Sodium/ Sodium Chloride 1,000 unit 1X ONCE IART Last administered on 11/25/16 22:48; Start 11/25/16 at 21:00; Stop 11/25/16 at 21:01; Status DC Lidocaine/Sodium Bicarbonate (Buffered Lidocaine 1%) 20 ml 1X ONCE IJ Last administered on 11/25/16 22:48; Start 11/25/16 at 21:00; Stop 11/25/16 at 21:01 ; Status DC Midazolam HCl (Versed) 2 mg 1X ONCE IV Last administered on 11/25/16 22:49; Start 11/25/16 at 21:00; Stop 11/25/16 at 21:01; Status DC Fentanyl Citrate (Fentanyl 2ml Vial) 100 mcg 1X ONCE IV Last administered on 11/25/16 22:49; Start 11/25/16 at 21:00; Stop 11/25/16 at 21:01; Status DC Iodixanol (Visipaque 320) 100 ml 1X ONCE IART Last administered on 11/25/16 22:49; Start 11/25/16 at 21:00; Stop 11/25/16 at 21:01; Status DC Insulin Aspart (NovoLOG) 0-9 UNITS TIDWMEALS SQ Last administered on 11/27/16 18:15; Start 11/26/16 at 08:00 Dextrose (Dextrose 50%-Water Syringe) 12.5 gm PRN Q15MIN PRN IV SEE COMMENTS; Start 11/25/16 at 21:15 Acetaminophen (Tylenol) 650 mg PRN Q6HRS PRN PO FEVER; Start 11/25/16 at 21:15 Ondansetron HCl (Zofran) 4 mg PRN Q6HRS PRN IV NAUSEA/VOMITING; Start 11/25/16 at 21:15 Morphine Sulfate 2 mg PRN Q2HR PRN IV MILD TO MOD PAIN; Start 11/25/16 at 21:15 Tramadol HCl (Ultram) 50 mg PRN Q6HRS PRN PO PAIN Last administered on 20:43; Start 11/25/16 at 21:15 Hydralazine HCl (Apresoline) 10 mg PRN Q4HRS PRN IVP ELEVATED BP, SEE COMMENTS Last administered on 11/26/16 02:09; Start 11/25/16 at 21:15 Docusate Sodium (Colace) 100 mg PRN DAILY PRN PO CONSTIPATION; Start 11/25/16 at 21:15 Heparin Sodium (Porcine) (Heparin Sodium) 10,000 unit STK-MED ONCE .ROUTE ; Start 11/25/16 at 21:15; Stop 11/25/16 at 21:16; Status DC Heparin Sodium (Porcine) (Heparin Sodium) 5,000 unit 1X ONCE IV Last administered on 11/25/16 22:53; Start 11/25/16 at 21:30; Stop 11/25/16 at 21:31 ; Status DC Alteplase, Recombinant 10 mg/ Sodium Chloride 50 ml @ 5 mls/hr 1X ONCE IV Last administered on 11/25/16 23:12; Start 11/25/16 at 22:15; Stop 11/26/16 at 03:11; Status DC Heparin Sodium/ Dextrose 500 ml @ 0 mls/hr CONT PRN IV SEE I/O RECORD Last administered on 11/27/16 04:43; Start 11/25/16 at 22:30; Stop 11/27/16 at 11:37 ; Status DC Potassium Chloride 20 meq/ Sodium Chloride 1,010 ml @ 75 mls/hr [id number] IV Last administered on 11/25/16 23:13; Start 11/25/16 at 22:30; Stop 11/26/16 at 15:44; Status DC Heparin Sodium/ Dextrose 500 ml @ As Directed STK-MED ONCE IV ; Start 11/25/16 at 22:39; Stop 11/25/16 at 22:40; Status DC Hydromorphone HCl (Dilaudid) 2 mg PRN Q2HRS PRN IVP SEVERE, BREAKTHROUGH PAIN Last administered on 11/26/16 13:36; Start 11/26/16 at 00:30 Alprazolam (Xanax) 0.25 mg PRN Q8HRS PRN PO ANXIETY / AGITATION Last administered on 11/26/16 01:13; Start 11/26/16 at 00:30 Alteplase, Recombinant 10 mg/ Sodium Chloride 50 ml @ 5 mls/hr 1X ONCE IV Last administered on 11/26/16 03:43; Start 11/26/16 at 03:30; Stop 11/26/16 at 13:29; Status DC Aspirin (Ecotrin) 81 mg [id number] PO Last administered on 11/28/16 08:58; Start 11/26/16 at 08:00 Atorvastatin Calcium (Lipitor) 40 mg QHS PO Last administered on 11/27/16 21: 43; Start 11/26/16 at 21:00 Metoprolol Tartrate (Lopressor) 50 mg BID PO Last administered on 11/28/16 08 :58; Start 11/26/16 at 09:00 Clopidogrel Bisulfate (Plavix) 75 mg [id number] PO Last administered on 08:58; Start 11/26/16 at 08:00 Insulin Detemir (Levemir) 30 units QHS SQ Last administered on 11/27/16 21:46 ; Start 11/26/16 at 21:00 Insulin Aspart (NovoLOG) 10 units TIDAC SQ Last administered on 11/28/16 12: 36; Start 11/26/16 at 11:30 Oxycodone/ Acetaminophen (Percocet 10/325) 1 tab PRN Q4HRS PRN PO PAIN; Start 11/26/16 at 08:45 Iodixanol (Visipaque 320) 100 ml STK-MED ONCE .ROUTE ; Start 11/26/16 at 10:26; Stop 11/26/16 at 10:27; Status DC Heparin Sodium/ Sodium Chloride 1,000 ml @ As Directed STK-MED ONCE .ROUTE ; Start 11/26/16 at 10:26; Stop 11/26/16 at 10:27; Status DC Lidocaine/Sodium Bicarbonate (Buffered Lidocaine 1%) 20 ml STK-MED ONCE IJ ; Start 11/26/16 at 10:29; Stop 11/26/16 at 10:30; Status DC Fentanyl Citrate (Fentanyl 2ml Vial) 100 mcg STK-MED ONCE .ROUTE ; Start at 11:14; Stop 11/26/16 at 11:15; Status DC Midazolam HCl (Versed) 2 mg STK-MED ONCE .ROUTE ; Start 11/26/16 at 11:14; Stop 11/26/16 at 11:15; Status DC Heparin Sodium/ Sodium Chloride 1,000 unit 1X ONCE IART Last administered on 11/26/16 12:22; Start 11/26/16 at 11:30; Stop 11/26/16 at 11:31; Status DC Lidocaine/Sodium Bicarbonate (Buffered Lidocaine 1%) 20 ml 1X ONCE IJ Last administered on 11/26/16 12:28; Start 11/26/16 at 11:30; Stop 11/26/16 at 11:31 ; Status DC Midazolam HCl (Versed) 2 mg 1X ONCE IV Last administered on 11/26/16 12:24; Start 11/26/16 at 11:30; Stop 11/26/16 at 11:31; Status DC Fentanyl Citrate (Fentanyl 2ml Vial) 100 mcg 1X ONCE IV Last administered on 11/26/16 12:23; Start 11/26/16 at 11:30; Stop 11/26/16 at 11:31; Status DC Iodixanol (Visipaque 320) 100 ml 1X ONCE IART Last administered on 11/26/16 12:24; Start 11/26/16 at 11:30; Stop 11/26/16 at 11:31; Status DC Alteplase, Recombinant 10 mg/ Sodium Chloride 100 ml @ 10 mls/hr 1X ONCE IV Last administered on 11/26/16 12:25; Start 11/26/16 at 11:30; Stop 11/26/16 at 21:29; Status DC Heparin Sodium/ Sodium Chloride 500 ml @ As Directed STK-MED ONCE .ROUTE ; Start 11/26/16 at 11:25; Stop 11/26/16 at 11:26; Status DC Heparin Sodium/ Sodium Chloride 500 ml @ As Directed STK-MED ONCE .ROUTE ; Start 11/26/16 at 11:51; Stop 11/26/16 at 11:52; Status DC Cefazolin Sodium 50 ml @ As Directed STK-MED ONCE IV ; Start 11/26/16 at 11:52; Stop 11/26/16 at 11:53; Status DC Heparin Sodium/ Sodium Chloride 1,000 unit 1X ONCE IART Last administered on 11/26/16 12:22; Start 11/26/16 at 12:00; Stop 11/26/16 at 12:01; Status DC Heparin Sodium/ Sodium Chloride 1,000 unit 1X ONCE IART Last administered on 11/26/16 12:22; Start 11/26/16 at 12:00; Stop 11/26/16 at 12:01; Status DC Cefazolin Sodium 50 ml @ 100 mls/hr 1X ONCE IV Last administered on 12:00; Start 11/26/16 at 12:00; Stop 11/26/16 at 12:29; Status DC Heparin Sodium (Porcine) (Heparin Sodium) 10,000 unit STK-MED ONCE .ROUTE ; Start 11/26/16 at 12:11; Stop 11/26/16 at 12:12; Status DC Heparin Sodium (Porcine) (Heparin Sodium) 5,000 unit 1X ONCE IV Last administered on 11/26/16 12:37; Start 11/26/16 at 12:30; Stop 11/26/16 at 12:31 ; Status DC Heparin Sodium/ Dextrose 500 ml @ 20 mls/hr CONT PRN IV SEE I/O RECORD; Start 11/26/16 at 12:45; Status Cancel Heparin Sodium (Porcine) (Heparin Sodium) 2,300 unit PRN Q6HRS PRN IV FOR UFH LEVEL LESS THAN 0.2 Last administered on 11/27/16 04:44; Start 11/26/16 at 12: 45 Potassium Chloride/Sodium Chloride 1,000 ml @ 75 mls/hr [id number] IV Last administered on 11/27/16 04:41; Start 11/26/16 at 15:45; Stop 11/27/16 at 10:44 ; Status DC Info (Anti-Coagulation Monitoring By Pharmacy) 1 each PRN DAILY PRN MC SEE COMMENTS Last administered on 11/27/16 11:14; Start 11/27/16 at 08:30 Heparin Sodium/ Dextrose 500 ml @ 0 mls/hr CONT PRN IV SEE I/O RECORD Last administered on 11/28/16 10:20; Start 11/27/16 at 11:45 Heparin Sodium (Porcine) (Heparin Sodium) 2,750 unit PRN Q6HRS PRN IV FOR UFH LEVEL LESS THAN 0.2; Start 11/27/16 at 11:45 Heparin Sodium (Porcine) (Heparin Sodium) 1,400 unit PRN Q6HRS PRN IV FOR UFH LEVEL 0.2 - 0.29 Last administered on 11/28/16t 03:39; Start 11/27/16 at 11:45 Dabigatran (Pradaxa) 150 mg BID PO ; Start 11/28/16 at 21:00 Active Scripts Active Aspirin Ec (Aspirin) 81 Mg Tablet.dr 1 Tab PO DAILY Clopidogrel (Clopidogrel Bisulfate) 75 Mg Tablet 1 Tab PO DAILY Oxycodone-Acetaminophen 5-325 (Oxycodone Hcl/Acetaminophen) 1 Each Tablet 1 Tab PO PRN Q4HRS PRN Metoprolol Tartrate 50 Mg Tablet 0.5 Tab PO BID Lantus Solostar (Insulin Glargine,Hum.rec.anlog) 100 Unit/1 Ml Insuln.pen 38 Unit SQ QHS Atorvastatin Calcium 40 Mg Tablet 40 Mg PO QHS 30 Days Reported NITROGLYCERIN SubLingual (Nitroglycerin) 0.4 Mg Tab.subl 1 Tab SL UD Novolog Flexpen (Insulin Aspart) 100 Unit/1 Ml Insuln.pen 12 Unit SQ TIDAC Vitals/I & O Vital Sign - Last 24 Hours 11/27/16 11/27/16 11/27/16 11/27/16 16:00 20:00 21:44 23:07 Temp 98.7 98.2 99.2 98.7 98.2 99.2 Pulse 96 98 96 87 Resp 22 23 16 B/P (MAP) 132/73 (92) 152/72 (98) 152/76 142/85 (104) Pulse Ox 97 95 98 O2 Delivery Room Air Room Air Room Air 11/28/16 11/28/16 11/28/16 11/28/16 04:53 07:48 08:58 10:25 Temp 99.0 98.6 97.8 99.0 98.6 97.8 Pulse 91 96 96 100 Resp 18 19 19 B/P (MAP) 137/85 (102) 133/75 (94) 133/75 113/67 (82) Pulse Ox 97 96 97 O2 Delivery Room Air Room Air Room Air 11/28/16 12:24 O2 Delivery Room Air Intake and Output 11/28/16 11/28/16 11/29/16 15:00 23:00 07:00 Output Total 325 ml Balance -325 ml AGNIESZKA GAYLE MD Nov 28, 2016 14:20
[2016-11-28 15:11] VITALS: BP 140/69
[2016-11-28] MEDS: ANTI-COAG MONITOR BY PHARMACY. MC PRN (15:22)
--- NOTE | 2016-11-28 16:59 | PDOC ---
PROGRESS NOTES Subjective Subjective c/c - f/u and workup for hypercoagulable state ROS - leg pain resolved Objective Objective Vital Signs Date Time Temp Pulse Resp B/P (MAP) Pulse Ox O2 Delivery O2 Flow Rate FiO2 11/28/16 15:11 97.4 86 18 140/69 (92) 93 Room Air 97.4 11/27/16 07:00 2.0 Intake and Output 11/29/16 07:00 Output Total 825 ml Balance -825 ml Output Urine Total 825 ml # Bowel Movements 1 Physical Exam Heart: Normal S1, Normal S2 General: Alert, Oriented X3 Lungs: Clear to auscultation Neuro: Normal speech Psych/Mental Status: Mental status NL Assessment Assessment Problems Medical Problems: (1) Ischemic leg Status: Acute IMPRESSION AND PLAN: 1. Left superficial femoral artery stent thrombosis. He has had prior history of thrombosis of the coronary artery stents. Hence Hematology consult was requested for workup for hypercoagulable state. I will initiate workup with prothrombin gene mutation and factor V Leiden. Since he is already started on heparin, results of protein C, protein S, antithrombin 3 and lupus anticoagulant now will be accurate. These may have to be repeated after completion of anticoagulation. Continue anticoagulation per Dr. Lam/Cardiology. Appreciate Vascular Surgery consultation. Appreciate Interventional Radiology consultation for status post thrombolysis. Pain has improved. 2. Anemia, mild. Hemoglobin normal on 11/25/2016. Continue to monitor. No evidence of bleeding. 3. Coronary artery disease, status post stent placement. I discussed with Cardiology. Comment Review of Relevant I have reviewed the following items rachel (where applicable) has been applied. Labs Laboratory Tests Test 11/26/16 18:46 11/26/16 19:44 11/26/16 19:45 11/27/16 03:23 Glucose (Fingerstick) 149 mg/dL (70-99) 179 mg/dL (70-99) Heparin Anti-Xa Act, Unfractionated 0.13 IU/mL (0.30-0.70) 0.19 IU/mL (0.30-0.70) White Blood Count 9.1 x10^3/uL (4.0-11.0) Red Blood Count 4.78 x10^6/uL (4.30-5.70) Hemoglobin 12.3 g/dL (13.0-17.5) Hematocrit 38.1 % (39.0-53.0) Mean Corpuscular Volume 80 fL (79-100) Mean Corpuscular Hemoglobin 26 pg (25-35) Mean Corpuscular Hemoglobin Concent 32 g/dL (31-37) Red Cell Distribution Width 15.7 % (11.5-14.5) Platelet Count 157 x10^3/uL (140-400) Neutrophils (%) (Auto) 68 % (31-73) Lymphocytes (%) (Auto) 16 % (24-48) Monocytes (%) (Auto) 13 % (0-9) Eosinophils (%) (Auto) 3 % (0-3) Basophils (%) (Auto) 1 % (0-3) Neutrophils # (Auto) 6.3 x10^3uL (1.8-7.7) Lymphocytes # (Auto) 1.4 x10^3/uL (1.0-4.8) Monocytes # (Auto) 1.2 x10^3/uL (0.0-1.1) Eosinophils # (Auto) 0.2 x10^3/uL (0.0-0.7) Basophils # (Auto) 0.1 x10^3/uL (0.0-0.2) Sodium Level 134 mmol/L (136-145) Potassium Level 3.8 mmol/L (3.5-5.1) Chloride Level 101 mmol/L (98-107) Carbon Dioxide Level 28 mmol/L (21-32) Anion Gap 5 (6-14) Blood Urea Nitrogen 10 mg/dL (8-26) Creatinine 0.6 mg/dL (0.7-1.3) Estimated GFR (Cockcroft-Gault) 137.0 Glucose Level 146 mg/dL (70-99) Calcium Level 8.2 mg/dL (8.5-10.1) Test 11/27/16 08:02 11/27/16 10:50 11/27/16 11:05 11/27/16 12:44 Glucose (Fingerstick) 127 mg/dL (70-99) 105 mg/dL (70-99) Heparin Anti-Xa Act, Unfractionated 0.29 IU/mL (0.30-0.70) Nasal Screen MRSA (PCR) Negative (Negative) Test 11/27/16 18:07 11/27/16 19:28 11/27/16 21:43 11/28/16 01:45 Glucose (Fingerstick) 159 mg/dL (70-99) 203 mg/dL (70-99) Heparin Anti-Xa Act, Unfractionated 0.33 IU/mL (0.30-0.70) 0.26 IU/mL (0.30-0.70) Test 11/28/16 07:46 11/28/16 09:05 11/28/16 11:39 11/28/16 15:30 Glucose (Fingerstick) 141 mg/dL (70-99) 250 mg/dL (70-99) Heparin Anti-Xa Act, Unfractionated 0.42 IU/mL (0.30-0.70) 0.40 IU/mL (0.30-0.70) Test 11/28/16 16:43 Glucose (Fingerstick) 157 mg/dL (70-99) Laboratory Tests Test 11/27/16 18:07 11/27/16 19:28 11/27/16 21:43 11/28/16 01:45 Glucose (Fingerstick) 159 mg/dL (70-99) 203 mg/dL (70-99) Heparin Anti-Xa Act, Unfractionated 0.33 IU/mL (0.30-0.70) 0.26 IU/mL (0.30-0.70) Test 11/28/16 07:46 11/28/16 09:05 11/28/16 11:39 11/28/16 15:30 Glucose (Fingerstick) 141 mg/dL (70-99) 250 mg/dL (70-99) Heparin Anti-Xa Act, Unfractionated 0.42 IU/mL (0.30-0.70) 0.40 IU/mL (0.30-0.70) Test 11/28/16 16:43 Glucose (Fingerstick) 157 mg/dL (70-99) Medications Current Medications Hydromorphone HCl (Dilaudid) 0.5 mg PRN Q30MIN PRN IV SEVERE PAIN Last administered on 11/26/16t 00:02; Start 11/25/16 at 18:30; Stop 11/26/16 at 00:02 ; Status DC Ondansetron HCl (Zofran) 4 mg 1X ONCE IV Last administered on 11/25/16 20:16 ; Start 11/25/16 at 18:30; Stop 11/25/16 at 18:31; Status DC Heparin Sodium (Porcine) (Heparin 5,000 Units/1,000ml NS) 4,000 unit 1X ONCE IV ; Start 11/25/16 at 18:30; Stop 11/25/16 at 18:31; Status DC Ondansetron HCl (Zofran) 4 mg PRN Q8HRS PRN IV NAUSEA/VOMITING; Start 11/25/16 at 19:00; Stop 11/26/16 at 07:47; Status DC Morphine Sulfate 2 mg PRN Q2HR PRN IV PAIN Last administered on 11/26/16 02:10 ; Start 11/25/16 at 19:00; Stop 11/26/16 at 07:47; Status DC Heparin Sodium (Porcine) (Heparin Sodium) 4,000 unit 1X ONCE IV Last administered on 11/25/16 19:20; Start 11/25/16 at 19:15; Stop 11/25/16 at 19:16 ; Status DC Iodixanol (Visipaque 320) 100 ml STK-MED ONCE .ROUTE ; Start 11/25/16 at 19:11; Stop 11/25/16 at 19:12; Status DC Heparin Sodium/ Sodium Chloride 1,000 ml @ As Directed STK-MED ONCE .ROUTE ; Start 11/25/16 at 19:11; Stop 11/25/16 at 19:12; Status DC Lidocaine/Sodium Bicarbonate (Buffered Lidocaine 1%) 20 ml STK-MED ONCE IJ ; Start 11/25/16 at 19:27; Stop 11/25/16 at 19:28; Status DC Fentanyl Citrate (Fentanyl 2ml Vial) 100 mcg STK-MED ONCE .ROUTE ; Start at 20:13; Stop 11/25/16 at 20:14; Status DC Midazolam HCl (Versed) 2 mg STK-MED ONCE .ROUTE ; Start 11/25/16 at 20:13; Stop 11/25/16 at 20:14; Status DC Heparin Sodium/ Sodium Chloride 1,000 unit 1X ONCE IART Last administered on 11/25/16 22:48; Start 11/25/16 at 21:00; Stop 11/25/16 at 21:01; Status DC Lidocaine/Sodium Bicarbonate (Buffered Lidocaine 1%) 20 ml 1X ONCE IJ Last administered on 11/25/16 22:48; Start 11/25/16 at 21:00; Stop 11/25/16 at 21:01 ; Status DC Midazolam HCl (Versed) 2 mg 1X ONCE IV Last administered on 11/25/16 22:49; Start 11/25/16 at 21:00; Stop 11/25/16 at 21:01; Status DC Fentanyl Citrate (Fentanyl 2ml Vial) 100 mcg 1X ONCE IV Last administered on 11/25/16 22:49; Start 11/25/16 at 21:00; Stop 11/25/16 at 21:01; Status DC Iodixanol (Visipaque 320) 100 ml 1X ONCE IART Last administered on 11/25/16 22:49; Start 11/25/16 at 21:00; Stop 11/25/16 at 21:01; Status DC Insulin Aspart (NovoLOG) 0-9 UNITS TIDWMEALS SQ Last administered on 11/27/16 18:15; Start 11/26/16 at 08:00 Dextrose (Dextrose 50%-Water Syringe) 12.5 gm PRN Q15MIN PRN IV SEE COMMENTS; Start 11/25/16 at 21:15 Acetaminophen (Tylenol) 650 mg PRN Q6HRS PRN PO FEVER; Start 11/25/16 at 21:15 Ondansetron HCl (Zofran) 4 mg PRN Q6HRS PRN IV NAUSEA/VOMITING; Start 11/25/16 at 21:15 Morphine Sulfate 2 mg PRN Q2HR PRN IV MILD TO MOD PAIN; Start 11/25/16 at 21:15 Tramadol HCl (Ultram) 50 mg PRN Q6HRS PRN PO PAIN Last administered on 20:43; Start 11/25/16 at 21:15 Hydralazine HCl (Apresoline) 10 mg PRN Q4HRS PRN IVP ELEVATED BP, SEE COMMENTS Last administered on 11/26/16 02:09; Start 11/25/16 at 21:15 Docusate Sodium (Colace) 100 mg PRN DAILY PRN PO CONSTIPATION; Start 11/25/16 at 21:15 Heparin Sodium (Porcine) (Heparin Sodium) 10,000 unit STK-MED ONCE .ROUTE ; Start 11/25/16 at 21:15; Stop 11/25/16 at 21:16; Status DC Heparin Sodium (Porcine) (Heparin Sodium) 5,000 unit 1X ONCE IV Last administered on 11/25/16 22:53; Start 11/25/16 at 21:30; Stop 11/25/16 at 21:31 ; Status DC Alteplase, Recombinant 10 mg/ Sodium Chloride 50 ml @ 5 mls/hr 1X ONCE IV Last administered on 11/25/16 23:12; Start 11/25/16 at 22:15; Stop 11/26/16 at 03:11; Status DC Heparin Sodium/ Dextrose 500 ml @ 0 mls/hr CONT PRN IV SEE I/O RECORD Last administered on 11/27/16 04:43; Start 11/25/16 at 22:30; Stop 11/27/16 at 11:37 ; Status DC Potassium Chloride 20 meq/ Sodium Chloride 1,010 ml @ 75 mls/hr [id number] IV Last administered on 11/25/16 23:13; Start 11/25/16 at 22:30; Stop 11/26/16 at 15:44; Status DC Heparin Sodium/ Dextrose 500 ml @ As Directed STK-MED ONCE IV ; Start 11/25/16 at 22:39; Stop 11/25/16 at 22:40; Status DC Hydromorphone HCl (Dilaudid) 2 mg PRN Q2HRS PRN IVP SEVERE, BREAKTHROUGH PAIN Last administered on 11/26/16 13:36; Start 11/26/16 at 00:30 Alprazolam (Xanax) 0.25 mg PRN Q8HRS PRN PO ANXIETY / AGITATION Last administered on 11/26/16 01:13; Start 11/26/16 at 00:30 Alteplase, Recombinant 10 mg/ Sodium Chloride 50 ml @ 5 mls/hr 1X ONCE IV Last administered on 11/26/16 03:43; Start 11/26/16 at 03:30; Stop 11/26/16 at 13:29; Status DC Aspirin (Ecotrin) 81 mg [id number] PO Last administered on 11/28/16 08:58; Start 11/26/16 at 08:00 Atorvastatin Calcium (Lipitor) 40 mg QHS PO Last administered on 11/27/16 21: 43; Start 11/26/16 at 21:00 Metoprolol Tartrate (Lopressor) 50 mg BID PO Last administered on 11/28/16 08 :58; Start 11/26/16 at 09:00 Clopidogrel Bisulfate (Plavix) 75 mg [id number] PO Last administered on 08:58; Start 11/26/16 at 08:00 Insulin Detemir (Levemir) 30 units QHS SQ Last administered on 11/27/16 21:46 ; Start 11/26/16 at 21:00 Insulin Aspart (NovoLOG) 10 units TIDAC SQ Last administered on 11/28/16 12: 36; Start 11/26/16 at 11:30 Oxycodone/ Acetaminophen (Percocet 10/325) 1 tab PRN Q4HRS PRN PO PAIN; Start 11/26/16 at 08:45 Iodixanol (Visipaque 320) 100 ml STK-MED ONCE .ROUTE ; Start 11/26/16 at 10:26; Stop 11/26/16 at 10:27; Status DC Heparin Sodium/ Sodium Chloride 1,000 ml @ As Directed STK-MED ONCE .ROUTE ; Start 11/26/16 at 10:26; Stop 11/26/16 at 10:27; Status DC Lidocaine/Sodium Bicarbonate (Buffered Lidocaine 1%) 20 ml STK-MED ONCE IJ ; Start 11/26/16 at 10:29; Stop 11/26/16 at 10:30; Status DC Fentanyl Citrate (Fentanyl 2ml Vial) 100 mcg STK-MED ONCE .ROUTE ; Start at 11:14; Stop 11/26/16 at 11:15; Status DC Midazolam HCl (Versed) 2 mg STK-MED ONCE .ROUTE ; Start 11/26/16 at 11:14; Stop 11/26/16 at 11:15; Status DC Heparin Sodium/ Sodium Chloride 1,000 unit 1X ONCE IART Last administered on 11/26/16 12:22; Start 11/26/16 at 11:30; Stop 11/26/16 at 11:31; Status DC Lidocaine/Sodium Bicarbonate (Buffered Lidocaine 1%) 20 ml 1X ONCE IJ Last administered on 11/26/16 12:28; Start 11/26/16 at 11:30; Stop 11/26/16 at 11:31 ; Status DC Midazolam HCl (Versed) 2 mg 1X ONCE IV Last administered on 11/26/16 12:24; Start 11/26/16 at 11:30; Stop 11/26/16 at 11:31; Status DC Fentanyl Citrate (Fentanyl 2ml Vial) 100 mcg 1X ONCE IV Last administered on 11/26/16 12:23; Start 11/26/16 at 11:30; Stop 11/26/16 at 11:31; Status DC Iodixanol (Visipaque 320) 100 ml 1X ONCE IART Last administered on 11/26/16 12:24; Start 11/26/16 at 11:30; Stop 11/26/16 at 11:31; Status DC Alteplase, Recombinant 10 mg/ Sodium Chloride 100 ml @ 10 mls/hr 1X ONCE IV Last administered on 11/26/16 12:25; Start 11/26/16 at 11:30; Stop 11/26/16 at 21:29; Status DC Heparin Sodium/ Sodium Chloride 500 ml @ As Directed STK-MED ONCE .ROUTE ; Start 11/26/16 at 11:25; Stop 11/26/16 at 11:26; Status DC Heparin Sodium/ Sodium Chloride 500 ml @ As Directed STK-MED ONCE .ROUTE ; Start 11/26/16 at 11:51; Stop 11/26/16 at 11:52; Status DC Cefazolin Sodium 50 ml @ As Directed STK-MED ONCE IV ; Start 11/26/16 at 11:52; Stop 11/26/16 at 11:53; Status DC Heparin Sodium/ Sodium Chloride 1,000 unit 1X ONCE IART Last administered on 11/26/16 12:22; Start 11/26/16 at 12:00; Stop 11/26/16 at 12:01; Status DC Heparin Sodium/ Sodium Chloride 1,000 unit 1X ONCE IART Last administered on 11/26/16 12:22; Start 11/26/16 at 12:00; Stop 11/26/16 at 12:01; Status DC Cefazolin Sodium 50 ml @ 100 mls/hr 1X ONCE IV Last administered on 12:00; Start 11/26/16 at 12:00; Stop 11/26/16 at 12:29; Status DC Heparin Sodium (Porcine) (Heparin Sodium) 10,000 unit STK-MED ONCE .ROUTE ; Start 11/26/16 at 12:11; Stop 11/26/16 at 12:12; Status DC Heparin Sodium (Porcine) (Heparin Sodium) 5,000 unit 1X ONCE IV Last administered on 11/26/16 12:37; Start 11/26/16 at 12:30; Stop 11/26/16 at 12:31 ; Status DC Heparin Sodium/ Dextrose 500 ml @ 20 mls/hr CONT PRN IV SEE I/O RECORD; Start 11/26/16 at 12:45; Status Cancel Heparin Sodium (Porcine) (Heparin Sodium) 2,300 unit PRN Q6HRS PRN IV FOR UFH LEVEL LESS THAN 0.2 Last administered on 11/27/16 04:44; Start 11/26/16 at 12: 45 Potassium Chloride/Sodium Chloride 1,000 ml @ 75 mls/hr [id number] IV Last administered on 11/27/16 04:41; Start 11/26/16 at 15:45; Stop 11/27/16 at 10:44 ; Status DC Info (Anti-Coagulation Monitoring By Pharmacy) 1 each PRN DAILY PRN MC SEE COMMENTS Last administered on 11/28/16 15:22; Start 11/27/16 at 08:30 Heparin Sodium/ Dextrose 500 ml @ 0 mls/hr CONT PRN IV SEE I/O RECORD Last administered on 11/28/16 10:20; Start 11/27/16 at 11:45 Heparin Sodium (Porcine) (Heparin Sodium) 2,750 unit PRN Q6HRS PRN IV FOR UFH LEVEL LESS THAN 0.2; Start 11/27/16 at 11:45 Heparin Sodium (Porcine) (Heparin Sodium) 1,400 unit PRN Q6HRS PRN IV FOR UFH LEVEL 0.2 - 0.29 Last administered on 11/28/16 03:39; Start 11/27/16 at 11:45 Dabigatran (Pradaxa) 150 mg BID PO ; Start 11/28/16 at 21:00 Active Scripts Active Aspirin Ec (Aspirin) 81 Mg Tablet.dr 1 Tab PO DAILY Clopidogrel (Clopidogrel Bisulfate) 75 Mg Tablet 1 Tab PO DAILY Oxycodone-Acetaminophen 5-325 (Oxycodone Hcl/Acetaminophen) 1 Each Tablet 1 Tab PO PRN Q4HRS PRN Metoprolol Tartrate 50 Mg Tablet 0.5 Tab PO BID Lantus Solostar (Insulin Glargine,Hum.rec.anlog) 100 Unit/1 Ml Insuln.pen 38 Unit SQ QHS Atorvastatin Calcium 40 Mg Tablet 40 Mg PO QHS 30 Days Reported NITROGLYCERIN SubLingual (Nitroglycerin) 0.4 Mg Tab.subl 1 Tab SL UD Novolog Flexpen (Insulin Aspart) 100 Unit/1 Ml Insuln.pen 12 Unit SQ TIDAC Vitals/I & O Vital Sign - Last 24 Hours 11/27/16 11/27/16 11/27/16 11/28/16 20:00 21:44 23:07 04:53 Temp 98.2 99.2 99.0 98.2 99.2 99.0 Pulse 98 96 87 91 Resp 23 16 18 B/P (MAP) 152/72 (98) 152/76 142/85 (104) 137/85 (102) Pulse Ox 95 98 97 O2 Delivery Room Air Room Air Room Air 11/28/16 11/28/16 11/28/16 11/28/16 07:48 08:58 10:25 12:24 Temp 98.6 97.8 98.6 97.8 Pulse 96 96 100 Resp 19 19 B/P (MAP) 133/75 (94) 133/75 113/67 (82) Pulse Ox 96 97 O2 Delivery Room Air Room Air Room Air 11/28/16 15:11 Temp 97.4 97.4 Pulse 86 Resp 18 B/P (MAP) 140/69 (92) Pulse Ox 93 O2 Delivery Room Air Intake and Output 11/28/16 11/28/16 11/29/16 15:00 23:00 07:00 Output Total 325 ml 500 ml Balance -325 ml -500 ml SHANTHI DECKER MD Nov 28, 2016 16:59
--- NOTE | 2016-11-28 17:08 | PDOC ---
LIANG CASTELAN [facility] 11/28/16 1708: CARDIO Progress Notes Date and Time Date of Service 11/28/2016 Time of Evaluation 1030 Subjective Subjective: No Chest Pain, No shortness of breath, No Palpitations Vitals Vitals Vital Signs Date Time Temp Pulse Resp B/P (MAP) Pulse Ox O2 Delivery O2 Flow Rate FiO2 11/28/16 15:11 97.4 86 18 140/69 (92) 93 Room Air 97.4 11/27/16 07:00 2.0 Weight Weight [ ] Input and Output Intake and Output Intake and Output 11/29/16 07:00 Output Total 825 ml Balance -825 ml Output Urine Total 825 ml # Bowel Movements 1 Laboratory Labs Laboratory Tests Test 11/27/16 18:07 11/27/16 19:28 11/27/16 21:43 11/28/16 01:45 Glucose (Fingerstick) 159 mg/dL (70-99) 203 mg/dL (70-99) Heparin Anti-Xa Act, Unfractionated 0.33 IU/mL (0.30-0.70) 0.26 IU/mL (0.30-0.70) Test 11/28/16 07:46 11/28/16 09:05 11/28/16 11:39 11/28/16 15:30 Glucose (Fingerstick) 141 mg/dL (70-99) 250 mg/dL (70-99) Heparin Anti-Xa Act, Unfractionated 0.42 IU/mL (0.30-0.70) 0.40 IU/mL (0.30-0.70) Test 11/28/16 16:43 Glucose (Fingerstick) 157 mg/dL (70-99) Physical Exam HEENT: Neck Supple W Full Motion Chest: Symmetric LUNGS: Clear to Auscultation Heart: S1S2, RRR (SR), no murmurs Abdomen: Soft N/T Extremities: No Edema Neurology: alert, oriented, follow commands Other Exams right groin arteriotomy site intact, bilateral LE neurovascular status intact Assessment Assessment 1. Acute thrombosis of LSFA stents: S/P percutaneous thrombolysis/ revascularization. Neurovascular status intact. 2. CAD s/p CABG and PCI. Stable. 3. HTN: controlled 4. DLP Recommendations 1. Has opted out from possible fempop for now. Follow up with vascular surgery as an outpt. 2. Start on pradaxa and will discontinue heparin at midnight. Continue with 81 mg ASA and plavix. 3. Continue with secondary prevention JEFFREY PENA MD 11/28/16 1711: CARDIO Progress Notes Plan Plan Patient seen and examined. Agree with above nurse practitioner note. No acute events overnight. We will start pRADAXA this evening. Anticipate discharge tomorrow after second dose of productive. We will provide the patient with 4 weeks of anticoagulation. Evaluate his ability to obtain PRADAXA through home health care social worker and our office. LIANG CASTELAN APRN Nov 28, 2016 17:08 JEFFREY PENA MD Nov 28, 2016 17:11
[2016-11-28 20:29] VITALS: BP 150/80
[2016-11-28] MEDS: ATORVASTATIN CALCIUM 40 MG TABLET. PO SCH (21:15)
[2016-11-28] MEDS: DABIGATRAN ETEXILATE 150 MG CAPSULE. PO SCH (21:18)
[2016-11-28] MEDS: INSULIN DETEMIR 300 UNITS/3 ML INSULN.PEN. SQ SCH (21:21)
[2016-11-28] MEDS ORDERED: HEPARIN 25,000UTS/500ML PREMIX 500 ML IV ONE (22:30)
[2016-11-28] MEDS ORDERED: HEPARIN for IV BOLUS 10,000 UNIT/10 ML VIAL. IV PRN ×2 (22:45)
[2016-11-28] MEDS ORDERED: HEPARIN 25,000UTS/500ML PREMIX 500 ML IV PRN (22:45)
[2016-11-28 23:59] VITALS: BP 140/72
[2016-11-29 04:01] VITALS: BP 124/82
[2016-11-29 07:50] VITALS: BP 142/76
--- NOTE | 2016-11-29 07:53 | PDOC ---
Provider Note Provider Note AF VSS left foot warm with palpable DP pulse, intact motor/sensory function, calf with mild swelling/discomfort but no signs of compartment syndrome right foot warm, right groin with no hematoma A/P s/p thrombolysis of left SFA thrombosed stent with a good result - Discharge home on full anticoagulation. Follow up with Dr. Mayer in 2-3 weeks. GINGER ULLOA MD Nov 29, 2016 07:53
[2016-11-29] MEDS: INSULIN ASPART 300 UNITS/3 ML INSULN.PEN SQ SCH ×4 (08:00→13:07)
[2016-11-29 08:08] LABS: LUPUS ANTICOAGULANT SEE SEPARATE REPORT
--- NOTE | 2016-11-29 09:28 | PDOC ---
PROGRESS NOTES Subjective Subjective HPI - Left superficial femoral artery stent thrombosis ROS - no lrg pain Objective Objective Vital Signs Date Time Temp Pulse Resp B/P (MAP) Pulse Ox O2 Delivery O2 Flow Rate FiO2 11/29/16 07:50 98.1 90 18 142/76 (98) 95 Room Air 98.1 11/27/16 07:00 2.0 Physical Exam Heart: Normal S1, Normal S2 General: Alert, Oriented X3 Lungs: Clear to auscultation Neuro: Normal speech Psych/Mental Status: Mental status NL Assessment Assessment Problems Medical Problems: (1) Ischemic leg Status: Acute IMPRESSION AND PLAN: 1. Left superficial femoral artery stent thrombosis. He has had prior history of thrombosis of the coronary artery stents. Hence Hematology consult was requested for workup for hypercoagulable state. Orderd workup with prothrombin gene mutation and factor V Leiden. Since he is already started on heparin, results of protein C, protein S, antithrombin 3 and lupus anticoagulant now will not be accurate. These may have to be repeated after completion of anticoagulation. Continue anticoagulation per Dr. Lam/Cardiology. Appreciate Vascular Surgery consultation. Appreciate Interventional Radiology consultation status post thrombolysis. Pain has improved. Hb 12.3 2. Anemia, mild. Hemoglobin normal on 11/25/2016. Continue to monitor. No evidence of bleeding. 3. Coronary artery disease, status post stent placement. I discussed with Cardiology. Comment Review of Relevant I have reviewed the following items rachel (where applicable) has been applied. Labs Laboratory Tests Test 11/27/16 10:50 11/27/16 11:05 11/27/16 12:44 11/27/16 18:07 Heparin Anti-Xa Act, Unfractionated 0.29 IU/mL (0.30-0.70) Nasal Screen MRSA (PCR) Negative (Negative) Glucose (Fingerstick) 105 mg/dL (70-99) 159 mg/dL (70-99) Test 11/27/16 19:28 11/27/16 21:43 11/28/16 01:45 11/28/16 07:46 Heparin Anti-Xa Act, Unfractionated 0.33 IU/mL (0.30-0.70) 0.26 IU/mL (0.30-0.70) Glucose (Fingerstick) 203 mg/dL (70-99) 141 mg/dL (70-99) Test 11/28/16 09:05 11/28/16 11:39 11/28/16 15:30 11/28/16 16:43 Heparin Anti-Xa Act, Unfractionated 0.42 IU/mL (0.30-0.70) 0.40 IU/mL (0.30-0.70) Glucose (Fingerstick) 250 mg/dL (70-99) 157 mg/dL (70-99) Test 11/28/16 21:02 11/29/16 04:23 11/29/16 07:53 Glucose (Fingerstick) 261 mg/dL (70-99) 150 mg/dL (70-99) Heparin Anti-Xa Act, Unfractionated 0.43 IU/mL (0.30-0.70) Laboratory Tests Test 11/28/16 11:39 11/28/16 15:30 11/28/16 16:43 11/28/16 21:02 Glucose (Fingerstick) 250 mg/dL (70-99) 157 mg/dL (70-99) 261 mg/dL (70-99) Heparin Anti-Xa Act, Unfractionated 0.40 IU/mL (0.30-0.70) Test 11/29/16 04:23 11/29/16 07:53 Heparin Anti-Xa Act, Unfractionated 0.43 IU/mL (0.30-0.70) Glucose (Fingerstick) 150 mg/dL (70-99) Medications Current Medications Hydromorphone HCl (Dilaudid) 0.5 mg PRN Q30MIN PRN IV SEVERE PAIN Last administered on 11/26/16 00:02; Start 11/25/16 at 18:30; Stop 11/26/16 at 00:02 ; Status DC Ondansetron HCl (Zofran) 4 mg 1X ONCE IV Last administered on 11/25/16 20:16 ; Start 11/25/16 at 18:30; Stop 11/25/16 at 18:31; Status DC Heparin Sodium (Porcine) (Heparin 5,000 Units/1,000ml NS) 4,000 unit 1X ONCE IV ; Start 11/25/16 at 18:30; Stop 11/25/16 at 18:31; Status DC Ondansetron HCl (Zofran) 4 mg PRN Q8HRS PRN IV NAUSEA/VOMITING; Start 11/25/16 at 19:00; Stop 11/26/16 at 07:47; Status DC Morphine Sulfate 2 mg PRN Q2HR PRN IV PAIN Last administered on 11/26/16 02:10 ; Start 11/25/16 at 19:00; Stop 11/26/16 at 07:47; Status DC Heparin Sodium (Porcine) (Heparin Sodium) 4,000 unit 1X ONCE IV Last administered on 11/25/16 19:20; Start 11/25/16 at 19:15; Stop 11/25/16 at 19:16 ; Status DC Iodixanol (Visipaque 320) 100 ml STK-MED ONCE .ROUTE ; Start 11/25/16 at 19:11; Stop 11/25/16 at 19:12; Status DC Heparin Sodium/ Sodium Chloride 1,000 ml @ As Directed STK-MED ONCE .ROUTE ; Start 11/25/16 at 19:11; Stop 11/25/16 at 19:12; Status DC Lidocaine/Sodium Bicarbonate (Buffered Lidocaine 1%) 20 ml STK-MED ONCE IJ ; Start 11/25/16 at 19:27; Stop 11/25/16 at 19:28; Status DC Fentanyl Citrate (Fentanyl 2ml Vial) 100 mcg STK-MED ONCE .ROUTE ; Start at 20:13; Stop 11/25/16 at 20:14; Status DC Midazolam HCl (Versed) 2 mg STK-MED ONCE .ROUTE ; Start 11/25/16 at 20:13; Stop 11/25/16 at 20:14; Status DC Heparin Sodium/ Sodium Chloride 1,000 unit 1X ONCE IART Last administered on 11/25/16 22:48; Start 11/25/16 at 21:00; Stop 11/25/16 at 21:01; Status DC Lidocaine/Sodium Bicarbonate (Buffered Lidocaine 1%) 20 ml 1X ONCE IJ Last administered on 11/25/16 22:48; Start 11/25/16 at 21:00; Stop 11/25/16 at 21:01 ; Status DC Midazolam HCl (Versed) 2 mg 1X ONCE IV Last administered on 11/25/16 22:49; Start 11/25/16 at 21:00; Stop 11/25/16 at 21:01; Status DC Fentanyl Citrate (Fentanyl 2ml Vial) 100 mcg 1X ONCE IV Last administered on 11/25/16 22:49; Start 11/25/16 at 21:00; Stop 11/25/16 at 21:01; Status DC Iodixanol (Visipaque 320) 100 ml 1X ONCE IART Last administered on 11/25/16 22:49; Start 11/25/16 at 21:00; Stop 11/25/16 at 21:01; Status DC Insulin Aspart (NovoLOG) 0-9 UNITS TIDWMEALS SQ Last administered on 11/27/16 18:15; Start 11/26/16 at 08:00 Dextrose (Dextrose 50%-Water Syringe) 12.5 gm PRN Q15MIN PRN IV SEE COMMENTS; Start 11/25/16 at 21:15 Acetaminophen (Tylenol) 650 mg PRN Q6HRS PRN PO FEVER; Start 11/25/16 at 21:15 Ondansetron HCl (Zofran) 4 mg PRN Q6HRS PRN IV NAUSEA/VOMITING; Start 11/25/16 at 21:15 Morphine Sulfate 2 mg PRN Q2HR PRN IV MILD TO MOD PAIN; Start 11/25/16 at 21:15 Tramadol HCl (Ultram) 50 mg PRN Q6HRS PRN PO PAIN Last administered on 20:43; Start 11/25/16 at 21:15 Hydralazine HCl (Apresoline) 10 mg PRN Q4HRS PRN IVP ELEVATED BP, SEE COMMENTS Last administered on 11/26/16 02:09; Start 11/25/16 at 21:15 Docusate Sodium (Colace) 100 mg PRN DAILY PRN PO CONSTIPATION; Start 11/25/16 at 21:15 Heparin Sodium (Porcine) (Heparin Sodium) 10,000 unit STK-MED ONCE .ROUTE ; Start 11/25/16 at 21:15; Stop 11/25/16 at 21:16; Status DC Heparin Sodium (Porcine) (Heparin Sodium) 5,000 unit 1X ONCE IV Last administered on 11/25/16 22:53; Start 11/25/16 at 21:30; Stop 11/25/16 at 21:31 ; Status DC Alteplase, Recombinant 10 mg/ Sodium Chloride 50 ml @ 5 mls/hr 1X ONCE IV Last administered on 11/25/16 23:12; Start 11/25/16 at 22:15; Stop 11/26/16 at 03:11; Status DC Heparin Sodium/ Dextrose 500 ml @ 0 mls/hr CONT PRN IV SEE I/O RECORD Last administered on 11/27/16 04:43; Start 11/25/16 at 22:30; Stop 11/27/16 at 11:37 ; Status DC Potassium Chloride 20 meq/ Sodium Chloride 1,010 ml @ 75 mls/hr [id number] IV Last administered on 11/25/16 23:13; Start 11/25/16 at 22:30; Stop 11/26/16 at 15:44; Status DC Heparin Sodium/ Dextrose 500 ml @ As Directed STK-MED ONCE IV ; Start 11/25/16 at 22:39; Stop 11/25/16 at 22:40; Status DC Hydromorphone HCl (Dilaudid) 2 mg PRN Q2HRS PRN IVP SEVERE, BREAKTHROUGH PAIN Last administered on 11/26/16 13:36; Start 11/26/16 at 00:30 Alprazolam (Xanax) 0.25 mg PRN Q8HRS PRN PO ANXIETY / AGITATION Last administered on 11/26/16 01:13; Start 11/26/16 at 00:30 Alteplase, Recombinant 10 mg/ Sodium Chloride 50 ml @ 5 mls/hr 1X ONCE IV Last administered on 11/26/16 03:43; Start 11/26/16 at 03:30; Stop 11/26/16 at 13:29; Status DC Aspirin (Ecotrin) 81 mg [id number] PO Last administered on 11/28/16 08:58; Start 11/26/16 at 08:00 Atorvastatin Calcium (Lipitor) 40 mg QHS PO Last administered on 11/28/16 21: 15; Start 11/26/16 at 21:00 Metoprolol Tartrate (Lopressor) 50 mg BID PO Last administered on 11/28/16 21 :18; Start 11/26/16 at 09:00 Clopidogrel Bisulfate (Plavix) 75 mg [id number] PO Last administered on 08:58; Start 11/26/16 at 08:00 Insulin Detemir (Levemir) 30 units QHS SQ Last administered on 11/28/16 21:21 ; Start 11/26/16 at 21:00 Insulin Aspart (NovoLOG) 10 units TIDAC SQ Last administered on 11/28/16 12: 36; Start 11/26/16 at 11:30 Oxycodone/ Acetaminophen (Percocet 10/325) 1 tab PRN Q4HRS PRN PO PAIN; Start 11/26/16 at 08:45 Iodixanol (Visipaque 320) 100 ml STK-MED ONCE .ROUTE ; Start 11/26/16 at 10:26; Stop 11/26/16 at 10:27; Status DC Heparin Sodium/ Sodium Chloride 1,000 ml @ As Directed STK-MED ONCE .ROUTE ; Start 11/26/16 at 10:26; Stop 11/26/16 at 10:27; Status DC Lidocaine/Sodium Bicarbonate (Buffered Lidocaine 1%) 20 ml STK-MED ONCE IJ ; Start 11/26/16 at 10:29; Stop 11/26/16 at 10:30; Status DC Fentanyl Citrate (Fentanyl 2ml Vial) 100 mcg STK-MED ONCE .ROUTE ; Start at 11:14; Stop 11/26/16 at 11:15; Status DC Midazolam HCl (Versed) 2 mg STK-MED ONCE .ROUTE ; Start 11/26/16 at 11:14; Stop 11/26/16 at 11:15; Status DC Heparin Sodium/ Sodium Chloride 1,000 unit 1X ONCE IART Last administered on 11/26/16 12:22; Start 11/26/16 at 11:30; Stop 11/26/16 at 11:31; Status DC Lidocaine/Sodium Bicarbonate (Buffered Lidocaine 1%) 20 ml 1X ONCE IJ Last administered on 11/26/16 12:28; Start 11/26/16 at 11:30; Stop 11/26/16 at 11:31 ; Status DC Midazolam HCl (Versed) 2 mg 1X ONCE IV Last administered on 11/26/16 12:24; Start 11/26/16 at 11:30; Stop 11/26/16 at 11:31; Status DC Fentanyl Citrate (Fentanyl 2ml Vial) 100 mcg 1X ONCE IV Last administered on 11/26/16 12:23; Start 11/26/16 at 11:30; Stop 11/26/16 at 11:31; Status DC Iodixanol (Visipaque 320) 100 ml 1X ONCE IART Last administered on 11/26/16 12:24; Start 11/26/16 at 11:30; Stop 11/26/16 at 11:31; Status DC Alteplase, Recombinant 10 mg/ Sodium Chloride 100 ml @ 10 mls/hr 1X ONCE IV Last administered on 11/26/16 12:25; Start 11/26/16 at 11:30; Stop 11/26/16 at 21:29; Status DC Heparin Sodium/ Sodium Chloride 500 ml @ As Directed STK-MED ONCE .ROUTE ; Start 11/26/16 at 11:25; Stop 11/26/16 at 11:26; Status DC Heparin Sodium/ Sodium Chloride 500 ml @ As Directed STK-MED ONCE .ROUTE ; Start 11/26/16 at 11:51; Stop 11/26/16 at 11:52; Status DC Cefazolin Sodium 50 ml @ As Directed STK-MED ONCE IV ; Start 11/26/16 at 11:52; Stop 11/26/16 at 11:53; Status DC Heparin Sodium/ Sodium Chloride 1,000 unit 1X ONCE IART Last administered on 11/26/16 12:22; Start 11/26/16 at 12:00; Stop 11/26/16 at 12:01; Status DC Heparin Sodium/ Sodium Chloride 1,000 unit 1X ONCE IART Last administered on 11/26/16 12:22; Start 11/26/16 at 12:00; Stop 11/26/16 at 12:01; Status DC Cefazolin Sodium 50 ml @ 100 mls/hr 1X ONCE IV Last administered on 12:00; Start 11/26/16 at 12:00; Stop 11/26/16 at 12:29; Status DC Heparin Sodium (Porcine) (Heparin Sodium) 10,000 unit STK-MED ONCE .ROUTE ; Start 11/26/16 at 12:11; Stop 11/26/16 at 12:12; Status DC Heparin Sodium (Porcine) (Heparin Sodium) 5,000 unit 1X ONCE IV Last administered on 11/26/16 12:37; Start 11/26/16 at 12:30; Stop 11/26/16 at 12:31 ; Status DC Heparin Sodium/ Dextrose 500 ml @ 20 mls/hr CONT PRN IV SEE I/O RECORD; Start 11/26/16 at 12:45; Status Cancel Heparin Sodium (Porcine) (Heparin Sodium) 2,300 unit PRN Q6HRS PRN IV FOR UFH LEVEL LESS THAN 0.2 Last administered on 11/27/16 04:44; Start 11/26/16 at 12: 45; Stop 11/28/16 at 21:00; Status DC Potassium Chloride/Sodium Chloride 1,000 ml @ 75 mls/hr [id number] IV Last administered on 11/27/16 04:41; Start 11/26/16 at 15:45; Stop 11/27/16 at 10:44 ; Status DC Info (Anti-Coagulation Monitoring By Pharmacy) 1 each PRN DAILY PRN MC SEE COMMENTS Last administered on 11/28/16 15:22; Start 11/27/16 at 08:30 Heparin Sodium/ Dextrose 500 ml @ 0 mls/hr CONT PRN IV SEE I/O RECORD Last administered on 11/28/16 10:20; Start 11/27/16 at 11:45; Stop 11/28/16 at 21: 00; Status DC Heparin Sodium (Porcine) (Heparin Sodium) 2,750 unit PRN Q6HRS PRN IV FOR UFH LEVEL LESS THAN 0.2; Start 11/27/16 at 11:45; Stop 11/28/16 at 21:00; Status DC Heparin Sodium (Porcine) (Heparin Sodium) 1,400 unit PRN Q6HRS PRN IV FOR UFH LEVEL 0.2 - 0.29 Last administered on 11/28/16 03:39; Start 11/27/16 at 11:45 ; Stop 11/28/16 at 21:00; Status DC Dabigatran (Pradaxa) 150 mg BID PO Last administered on 11/28/16 21:18; Start 11/28/16 at 21:00 Heparin Sodium/ Dextrose 500 ml @ 0 mls/hr 1X ONCE IV ; Start 11/28/16 at 22: 30; Stop 11/28/16 at 22:33; Status DC Heparin Sodium/ Dextrose 500 ml @ 0 mls/hr CONT PRN IV SEE I/O RECORD Last administered on 11/28/16 22:50; Start 11/28/16 at 22:45 Heparin Sodium (Porcine) (Heparin Sodium) 2,750 unit PRN Q6HRS PRN IV FOR UFH LEVEL LESS THAN 0.2; Start 11/28/16 at 22:45 Heparin Sodium (Porcine) (Heparin Sodium) 1,350 unit PRN Q6HRS PRN IV FOR UFH LEVEL 0.2 - 0.29; Start 11/28/16 at 22:45 Active Scripts Active Aspirin Ec (Aspirin) 81 Mg Tablet.dr 1 Tab PO DAILY Clopidogrel (Clopidogrel Bisulfate) 75 Mg Tablet 1 Tab PO DAILY Oxycodone-Acetaminophen 5-325 (Oxycodone Hcl/Acetaminophen) 1 Each Tablet 1 Tab PO PRN Q4HRS PRN Metoprolol Tartrate 50 Mg Tablet 0.5 Tab PO BID Lantus Solostar (Insulin Glargine,Hum.rec.anlog) 100 Unit/1 Ml Insuln.pen 38 Unit SQ QHS Atorvastatin Calcium 40 Mg Tablet 40 Mg PO QHS 30 Days Reported NITROGLYCERIN SubLingual (Nitroglycerin) 0.4 Mg Tab.subl 1 Tab SL UD Novolog Flexpen (Insulin Aspart) 100 Unit/1 Ml Insuln.pen 12 Unit SQ TIDAC Vitals/I & O Vital Sign - Last 24 Hours 11/28/16 11/28/16 11/28/16 11/28/16 10:25 12:24 15:11 20:00 Temp 97.8 97.4 97.8 97.4 Pulse 100 86 Resp 19 18 B/P (MAP) 113/67 (82) 140/69 (92) Pulse Ox 97 93 O2 Delivery Room Air Room Air Room Air Room Air 11/28/16 11/28/16 11/28/16 11/29/16 20:29 21:18 23:59 04:01 Temp 98.3 98.5 98.1 98.3 98.5 98.1 Pulse 92 96 92 87 Resp 17 B/P (MAP) 150/80 (103) 170/78 140/72 (94) 124/82 (96) Pulse Ox 96 97 98 O2 Delivery Room Air Room Air Room Air 11/29/16 07:50 Temp 98.1 98.1 Pulse 90 Resp 18 B/P (MAP) 142/76 (98) Pulse Ox 95 O2 Delivery Room Air SHANTHI DECKER MD Nov 29, 2016 09:28
[2016-11-29] MEDS: CLOPIDOGREL BISULFATE 75 MG TABLET PO SCH (09:51)
[2016-11-29] MEDS: ASPIRIN ENTERIC COATED 81 MG TABLET.DR. PO SCH (09:52)
[2016-11-29] MEDS: DABIGATRAN ETEXILATE 150 MG CAPSULE. PO SCH (09:52)
[2016-11-29] MEDS: METOPROLOL TART IMMED RELEASE 50 MG TABLET. PO SCH (09:52)
[2016-11-29] MEDS ORDERED: METO50TA2 PO (10:50)
[2016-11-29] MEDS ORDERED: DABI150C PO (10:50)
[2016-11-29 11:45] VITALS: BP 137/81
--- NOTE | 2016-11-29 12:29 | PDOC ---
LIANG CASTELAN WEB MARKETING COORDINATOR 11/29/16 1229: CARDIO Progress Notes Date and Time Date of Service 11/29/2016 Time of Evaluation 1200 Subjective Subjective: No Chest Pain, No shortness of breath, No Palpitations, Other (no claudications) Vitals Vitals Vital Signs Date Time Temp Pulse Resp B/P (MAP) Pulse Ox O2 Delivery O2 Flow Rate FiO2 11/29/16 11:45 97.4 74 18 137/81 (99) 96 Room Air 97.4 Weight Weight [ ] Laboratory Labs Laboratory Tests Test 11/28/16 15:30 11/28/16 16:43 11/28/16 21:02 11/29/16 04:23 Heparin Anti-Xa Act, Unfractionated 0.40 IU/mL (0.30-0.70) 0.43 IU/mL (0.30-0.70) Glucose (Fingerstick) 157 mg/dL (70-99) 261 mg/dL (70-99) Test 11/29/16 07:53 11/29/16 11:25 Glucose (Fingerstick) 150 mg/dL (70-99) 186 mg/dL (70-99) Physical Exam HEENT: Neck Supple W Full Motion Chest: Symmetric LUNGS: Clear to Auscultation Heart: S1S2, RRR (SR), no murmurs Abdomen: Soft N/T Extremities: No Calf Tenderness, Other (1+ LLE pitting edema, warm and equal temp to both LE) Neurology: alert, oriented, follow commands Assessment Assessment 1. Acute thrombosis of LSFA stents: S/P percutaneous thrombolysis/ revascularization. Neurovascular status intact. Stable 2. CAD s/p CABG and PCI. Stable. 3. HTN: controlled 4. DLP Recommendations 1. Has opted out from possible fempop for now. Follow up with vascular surgery as an outpt. 2. Continue with pradaxa (samples provided, and ASA/plavix. F/U in office in 3- 4 weeks. 3. Continue with secondary prevention JEFFREY PENA MD 11/29/16 [id number]: CARDIO Progress Notes Plan Plan Pt. seen and examined. Agree with above RECEIVING TEAM MEMBER note. Plan for Pradaxa, ASA, Plavix for 4 weeks, in 4 weeks, stop asa, continue plavix and pradaxa. F/u with vascular surgery and hem/onc. Will see in the office in 4-6 weeks. LIANG CASTELAN APRN Nov 29, 2016 12:29 JEFFREY PENA MD Nov 29, 2016 17:03
--- NOTE | 2016-11-29 13:46 | PDOC3 ---
Discharge Summary [facility] Date of Admission: Nov 25, 2016 Discharge Date: Nov 29, 2016 Admitting Diagnosis left leg ischemia with recurrent SFA PAD, s/p thrombolysis, thrombectomy, angioplasty and stent placement 11/25, 11/26 recent s/p left SFA stent for stenosis h/o CAD with PCI and CABG dm2 htn hld Problems: Final Diagnosis CONSULTS IR vascular card Brief Hospital Course 61-year-old male presenting to the emergency department today after being transferred by [facility] to us with left leg pain. pt got left SFA stent for PAD on 10/[address] Lam. The stent works fine till yesterday, he was lifting something at home , posssibley pulled a muscle then had left leg pain, cool. Pt went to [facility], doc there concerned about PAD since no palpable or dopplerable pulse at foot and trasnferred here. Pt has severe leg pain. ADMITED to ICU, pt got SFA stent by IR, thrombolysis and cont TPA, HEparin drip overnight. He still has severe left leg pain, the femeral and popliteal pulse can be felt, but left foot feels cool, the dorsal pulse is dopplerable, toes look mild purple. pt then got another procedure with thrombolysis, thrombectomy, angioplasty and stent placement on 11/26 with good result. Left foot warm, no pain, pulse improved. dc home with pradaxa, asa, plavix x1 m at least. fu with dr. [place] for outpt possible hypercoagulation study. dc time 35min General: Alert, Oriented X3, Cooperative Heart: Regular rate, Normal S1, Normal S2 Lungs: Clear Abdomen: Normal bowel sounds, Soft Extremities: No clubbing, Other (left toes warm , dorsalis pedis pulse faint, strong anterior tibial pulse) Skin: No rashes Patient History: Problems: Disposition home CONDITION AT DISCHARGE: Improved Diet cardiac, ada Scheduled Aspirin (Aspirin Ec), 1 TAB PO DAILY Atorvastatin Calcium (Atorvastatin Calcium), 40 MG PO QHS Clopidogrel Bisulfate (Clopidogrel), 1 TAB PO DAILY Dabigatran Etexilate Mesylate (Pradaxa), 150 MG PO BID Insulin Aspart (Novolog Flexpen), 12 UNIT SQ TIDAC, (Reported) Insulin Glargine,Hum.rec.anlog (Lantus Solostar), 38 UNIT SQ QHS Metoprolol Tartrate (Metoprolol Tartrate), 50 MG PO BID Nitroglycerin (NITROGLYCERIN SubLingual), 1 TAB SL UD, (Reported) Scheduled PRN Oxycodone Hcl/Acetaminophen (Oxycodone-Acetaminophen 5-325), 1 TAB PO PRN Q4HRS PRN for MILD PAIN Discontinued Medications Metoprolol Tartrate (Metoprolol Tartrate), 0.5 TAB PO BID Follow Up card,vascular in 2 weeks AGNIESZKA GAYLE MD Nov 29, 2016 13:46
== END 2016-11-29 13:15 | disposition home or self-care (01) | DRG 271 ==
LOC: ER 18:09 → 1 WEST ICU 18:43 → 2 NORTH 11-27 22:37
PROVIDERS: ADMIT Internal Medicine; ATTEND Internal Medicine
PROC: 047L3DZ Dilation of Left Femoral Artery with Intraluminal Device, Percutaneous Approach (ICD-10-PCS; principal; 2016-11-25)
PROC: 04CL3ZZ Extirpation of Matter from Left Femoral Artery, Percutaneous Approach (ICD-10-PCS; 2016-11-25)
PROC: 04CS3ZZ Extirpation of Matter from Left Posterior Tibial Artery, Percutaneous Approach (ICD-10-PCS; 2016-11-25)
PROC: 04CY3ZZ Extirpation of Matter from Lower Artery, Percutaneous Approach (ICD-10-PCS; 2016-11-25)
PROC: B5181ZA Fluoroscopy of Superior Vena Cava using Low Osmolar Contrast, Guidance (ICD-10-PCS; 2016-11-25)
PROC: 02HV33Z Insertion of Infusion Device into Superior Vena Cava, Percutaneous Approach (ICD-10-PCS; 2016-11-25)
PROC: B548ZZA Ultrasonography of Superior Vena Cava, Guidance (ICD-10-PCS; 2016-11-25)
PROC: 3E03317 Introduction of Other Thrombolytic into Peripheral Vein, Percutaneous Approach (ICD-10-PCS; 2016-11-26)
DX: T82.868A Thrombosis due to vascular prosthetic devices, implants and grafts, initial encounter (principal); I74.3 Embolism and thrombosis of arteries of the lower extremities; D68.59 Other primary thrombophilia; E11.51 Type 2 diabetes mellitus with diabetic peripheral angiopathy without gangrene; D64.9 Anemia, unspecified; I10 Essential (primary) hypertension; E78.5 Hyperlipidemia, unspecified; E78.00 Pure hypercholesterolemia, unspecified; Y83.8 Other surgical procedures as the cause of abnormal reaction of the patient, or of later complication, without mention of misadventure at the time of the procedure; I25.10 Atherosclerotic heart disease of native coronary artery without angina pectoris; Z79.01 Long term (current) use of anticoagulants; Z82.49 Family history of ischemic heart disease and other diseases of the circulatory system; Z86.718 Personal history of other venous thrombosis and embolism; Z87.891 Personal history of nicotine dependence; Z95.1 Presence of aortocoronary bypass graft; Z95.5 Presence of coronary angioplasty implant and graft; I25.2 Old myocardial infarction; Y92.89 Other specified places as the place of occurrence of the external cause
CPT/HCPCS: 36415; 36569; 37184; 37214; 37226; 64493; 75625; 75710; 75774; 76937; 77001; 80048; 82962; 83605; 85018; 85025; 85220; 85384; 85520; 85610; 85730; 86147; 87641; 93005; 93926; 93970; 96374; 96375; 99152; 99153; A4215; C1725; C1751; C1757; C1760; C1769; C1892; C1894; G0269; J0360; J0690; J1170; J1644; J1815; J2250; J2270; J2405; J2997; J3010; 99291-25

== ENCOUNTER → 2016-12-01 | Outpatient (CLI) | payer MEDICARE ==
[2016-11-29 11:45] VITALS: BP 137/81
[~2016-12-01] MED LIST changes: +DABI150C PO
--- NOTE | 2016-12-04 09:38 | RAD ---
APPROVED REPORT Patient Location: OUT-PATIENT Indications PAD VELOCITY AND DOPPLER WAVEFORM ANALYSIS RIGHT cm/secWaveformSeverity LEFT c m/secWaveformSeverity pCFA pCFA 52.1Triphasic Prof Fem Art. Prof Fem Art. 36.4Biphasic Fem Art Prox. Fem Art Prox. 57.8Triphasic Fem Art Mid. Fem Art Mid. 109.3Triphasic Fem Art Dist. Fem Art Dist. 91.9Triphasic Pop Art(Fossa) Pop Art(Fossa) 99.6Triphasic [place] Dist. [place] OF ESTATE Dist. 107.4Monophasic Per Art Dist. Per Art Dist. 89.2Monophasic ABUNDIO Prox. ABUNDIO Prox. 55.5Biphasic ABUNDIO Dist. ABUNDIO Dist. 63.0Biphasic Findings Grayscale images of the left lower extremity arterial vessels revealed mild to moderate atherosclerot ic plaque. Spectral waveforms demonstrate triphasic velocities from the common femoral to the poplite al segment. No significant acceleration or deceleration is noted. There is three-vessel runoff below the knee with adequate velocities and biphasic waveforms without any significant decrease in flow. Ex cellent results after recent thrombolysis. Critical Notification Critical Value: No <Conclusion> No evidence of high-grade disease in the left lower extremity arterial vessels.
--- NOTE | 2016-12-04 09:40 | RAD ---
APPROVED REPORT Left Lower Extremity Venous Study for DVT Patient Location: OUT-PATIENT Indications PVD Findings Gonzales scale images of the left common femoral, superficial femoral veins do not reveal any evidence of thrombus with normal color Doppler and spectral images. Grayscale images of the popliteal segment ar e limited but color Doppler and spectral imaging demonstrates normal flow. There is spontaneous flow in the below-knee vessels without any clear evidence of thrombosis. Critical Notification Critical Value: No <Conclusion> Negative for DVT in the left lower extremity
== END | disposition home or self-care (01) ==
LOC: US 10:59
PROVIDERS: ATTEND Internal Medicine Cardiovascular Disease
DX: I73.9 Peripheral vascular disease, unspecified (principal); I82.402 Acute embolism and thrombosis of unspecified deep veins of left lower extremity; I70.8 Atherosclerosis of other arteries
CPT/HCPCS: 93926; 93971

== ENCOUNTER 2017-02-23 16:23 | Inpatient (IN) | payer MEDICARE ==
[2017-02-23] MEDS ORDERED: ANTI-COAG MONITOR BY PHARMACY. MC (21:15)
[2017-02-23] MEDS ORDERED: HEPARIN for IV BOLUS 10,000 UNIT/10 ML VIAL. IV ×2 (21:15)
[2017-02-23] MEDS: HEPARIN for IV BOLUS 10,000 UNIT/10 ML VIAL. IV (21:31)
[2017-02-23] MEDS: dilTIAZem 125 MG in IV NORMAL SALINE 100ML 100 ML IV (21:35)
[2017-02-23 21:36] LABS: ADD MAN DIFF? NO; BASO # 0.1 x10^3/uL (0.0-0.2); BASO % 1 % (0-3); EOS # 0.1 x10^3/uL (0.0-0.7); EOS % 1 % (0-3); HEMATOCRIT 44.4 % (39.0-53.0); HEMOGLOBIN 14.1 g/dL (13.0-17.5); LYMPH # 2.1 x10^3/uL (1.0-4.8); LYMPH % 22 % (24-48); MEAN CORPUSCULAR HEMOGLOBIN 24 pg (25-35); MEAN CORPUSCULAR HGB CONC 32 g/dL (31-37); MEAN CORPUSCULAR VOLUME 76 fL (79-100); MONO # 1.3 x10^3/uL (0.0-1.1); MONO % 13 % (0-9); NEUT # 6.2 x10^3uL (1.8-7.7); NEUT % 63 % (31-73); PARTIAL THROMBOPLASTIN TIME 29 SEC (24-38); PLATELET COUNT 314 x10^3/uL (140-400); PROTHROMBIN TIME PATIENT 12.7 SEC (11.7-14.0); RED BLOOD COUNT 5.84 x10^6/uL (4.30-5.70); RED CELL DISTRIBUTION WIDTH 16.7 % (11.5-14.5); WHITE BLOOD COUNT 9.9 x10^3/uL (4.0-11.0)
[2017-02-23 21:42] LABS: ANION GAP 13 (6-14); BLOOD UREA NITROGEN 16 mg/dL (8-26); BUN/CREATININE RATIO 23 (6-20); CALCIUM 9.3 mg/dL (8.5-10.1); CARBON DIOXIDE 24 mmol/L (21-32); CHLORIDE 100 mmol/L (98-107); CREATININE 0.7 mg/dL (0.7-1.3); GFR 114.6; GLUCOSE 299 mg/dL (70-99); POTASSIUM 4.2 mmol/L (3.5-5.1); SODIUM 137 mmol/L (136-145)
[2017-02-23 21:44] LABS: ALBUMIN 3.3 g/dL (3.4-5.0); ALBUMIN/GLOBULIN RATIO 0.8 (1.0-1.7); ALK PHOS 205 U/L (46-116); ALT (SGPT) 25 U/L (16-63); AST (SGOT) 14 U/L (15-37); TOTAL BILIRUBIN 0.8 mg/dL (0.2-1.0); TOTAL PROTEIN 7.4 g/dL (6.4-8.2)
[2017-02-23] MEDS: HEPARIN 25,000UTS/500ML PREMIX 500 ML IV ×2 (22:30→23:57)
[2017-02-23] MEDS: dilTIAZem IV PUSH 25 MG/5 ML VIAL IVP (22:48)
[2017-02-23] MEDS: MORPHINE SULFATE 4 MG/ML DISP.SYRIN. IV (23:10)
[2017-02-23] MEDS: DIGOXIN IV 500 MCG/2 ML AMPUL. IV (23:11)
[2017-02-23] MEDS: IV NORMAL SALINE 1000ML BAG 1,000 ML IV (23:38)
[2017-02-23] MEDS ORDERED: DEXTROSE 50% 25 GM / 50ML DISP.SYRIN. IV (23:45)
[2017-02-23] MEDS ORDERED: NITROGLYCERIN SUBLINGUAL 0.4 MG BOTTLE OF 25. SL (23:45)
[2017-02-24] MEDS ORDERED: HEPARIN for IV BOLUS 10,000 UNIT/10 ML VIAL. IV ×2 (00:15)
[2017-02-24] MEDS: ANTI-COAG MONITOR BY PHARMACY. MC (02:46)
[2017-02-24] MEDS: dilTIAZem 125 MG in IV NORMAL SALINE 100ML 100 ML IV ×2 (04:10→20:55)
[2017-02-24 07:11] LABS: UNFRACTIONATED HEPARIN TESTING 0.34 IU/mL (0.30-0.70)
[2017-02-24] MEDS ORDERED: HEPARIN 25,000UTS/500ML PREMIX 500 ML IV (08:15)
[2017-02-24 08:25] LABS: POC GLUCOSE 237 mg/dL (70-99)
[2017-02-24] MEDS: CLOPIDOGREL BISULFATE 75 MG TABLET PO (08:33)
[2017-02-24] MEDS: ASPIRIN ENTERIC COATED 81 MG TABLET.DR. PO (08:33)
[2017-02-24] MEDS: INSULIN ASPART 300 UNITS/3 ML INSULN.PEN SQ ×6 (08:34→16:35)
[2017-02-24] MEDS ORDERED: METOPROLOL TART IMMED RELEASE 50 MG TABLET. PO (09:00)
[2017-02-24 12:05] LABS: POC GLUCOSE 254 mg/dL (70-99)
[2017-02-24] MEDS: HEPARIN 25,000UTS/500ML PREMIX 500 ML IV (16:07)
[2017-02-24 16:41] LABS: POC GLUCOSE 218 mg/dL (70-99)
[2017-02-24] MEDS: ATORVASTATIN CALCIUM 40 MG TABLET. PO (21:42)
[2017-02-24] MEDS: INSULIN DETEMIR 300 UNITS/3 ML INSULN.PEN. SQ (21:46)
[2017-02-24 21:50] LABS: POC GLUCOSE 195 mg/dL (70-99)
[2017-02-24 22:11] LABS: HEMOGLOBIN A1C 12.2 % (4.8-5.6)
[2017-02-24 23:18] LABS: UNFRACTIONATED HEPARIN TESTING 0.36 IU/mL (0.30-0.70)
[2017-02-25] MEDS: CLOPIDOGREL BISULFATE 75 MG TABLET PO (08:36)
[2017-02-25] MEDS: INSULIN ASPART 300 UNITS/3 ML INSULN.PEN SQ ×6 (08:36→17:48)
[2017-02-25] MEDS: ASPIRIN ENTERIC COATED 81 MG TABLET.DR. PO (08:36)
[2017-02-25] MEDS: HEPARIN 25,000UTS/500ML PREMIX 500 ML IV (08:38)
[2017-02-25 08:42] LABS: POC GLUCOSE 232 mg/dL (70-99)
[2017-02-25] MEDS: ANTI-COAG MONITOR BY PHARMACY. MC (08:47)
[2017-02-25 09:27] LABS: UNFRACTIONATED HEPARIN TESTING 0.21 IU/mL (0.30-0.70)
[2017-02-25] MEDS: HEPARIN for IV BOLUS 10,000 UNIT/10 ML VIAL. IV (09:43)
[2017-02-25] MEDS: METOPROLOL TART IMMED RELEASE 50 MG TABLET. PO ×2 (11:26→21:14)
[2017-02-25 11:27] LABS: POC GLUCOSE 236 mg/dL (70-99)
[2017-02-25 15:40] LABS: UNFRACTIONATED HEPARIN TESTING 0.51 IU/mL (0.30-0.70)
[2017-02-25 16:53] LABS: POC GLUCOSE 395 mg/dL (70-99)
[2017-02-25] MEDS: ATORVASTATIN CALCIUM 40 MG TABLET. PO (21:15)
[2017-02-25] MEDS: INSULIN DETEMIR 300 UNITS/3 ML INSULN.PEN. SQ (21:19)
[2017-02-25 21:22] LABS: POC GLUCOSE 209 mg/dL (70-99)
[2017-02-25 22:08] LABS: UNFRACTIONATED HEPARIN TESTING 0.43 IU/mL (0.30-0.70)
[2017-02-26] MEDS: HEPARIN 25,000UTS/500ML PREMIX 500 ML IV ×2 (00:37→16:04)
[2017-02-26 05:58] LABS: ADD MAN DIFF? NO
[2017-02-26 06:09] LABS: BASO # 0.1 x10^3/uL (0.0-0.2); BASO % 1 % (0-3); EOS # 0.2 x10^3/uL (0.0-0.7); EOS % 2 % (0-3); HEMATOCRIT 46.2 % (39.0-53.0); HEMOGLOBIN 14.5 g/dL (13.0-17.5); LYMPH % 32 % (24-48); MEAN CORPUSCULAR HEMOGLOBIN 24 pg (25-35); MEAN CORPUSCULAR HGB CONC 31 g/dL (31-37); MEAN CORPUSCULAR VOLUME 77 fL (79-100); MONO % 10 % (0-9); NEUT % 54 % (31-73); PLATELET COUNT 359 x10^3/uL (140-400); RED BLOOD COUNT 6.04 x10^6/uL (4.30-5.70); RED CELL DISTRIBUTION WIDTH 16.9 % (11.5-14.5); WHITE BLOOD COUNT 9.2 x10^3/uL (4.0-11.0)
[2017-02-26 06:42] LABS: ANION GAP 9 (6-14); BLOOD UREA NITROGEN 10 mg/dL (8-26); CALCIUM 9.1 mg/dL (8.5-10.1); CARBON DIOXIDE 28 mmol/L (21-32); CHLORIDE 101 mmol/L (98-107); CREATININE 0.8 mg/dL (0.7-1.3); GFR 98.3; GLUCOSE 156 mg/dL (70-99); SODIUM 138 mmol/L (136-145)
[2017-02-26 06:46] LABS: UNFRACTIONATED HEPARIN TESTING 0.51 IU/mL (0.30-0.70)
[2017-02-26 08:45] LABS: POC GLUCOSE 191 mg/dL (70-99)
[2017-02-26] MEDS: METOPROLOL TART IMMED RELEASE 50 MG TABLET. PO ×2 (08:49→20:01)
[2017-02-26] MEDS: ASPIRIN ENTERIC COATED 81 MG TABLET.DR. PO (08:49)
[2017-02-26] MEDS: CLOPIDOGREL BISULFATE 75 MG TABLET PO (08:49)
[2017-02-26] MEDS: INSULIN ASPART 300 UNITS/3 ML INSULN.PEN SQ ×6 (09:00→18:09)
[2017-02-26 11:55] LABS: POC GLUCOSE 186 mg/dL (70-99)
[2017-02-26] MEDS: ANTI-COAG MONITOR BY PHARMACY. MC (15:52)
[2017-02-26 17:48] LABS: POC GLUCOSE 233 mg/dL (70-99)
[2017-02-26] MEDS: ATORVASTATIN CALCIUM 40 MG TABLET. PO (20:01)
[2017-02-26] MEDS: INSULIN DETEMIR 300 UNITS/3 ML INSULN.PEN. SQ (20:11)
[2017-02-26 20:15] LABS: POC GLUCOSE 235 mg/dL (70-99)
[2017-02-27 06:03] LABS: ADD MAN DIFF? NO
[2017-02-27 06:16] LABS: BASO # 0.1 x10^3/uL (0.0-0.2); BASO % 1 % (0-3); EOS # 0.2 x10^3/uL (0.0-0.7); EOS % 2 % (0-3); HEMATOCRIT 42.5 % (39.0-53.0); HEMOGLOBIN 13.6 g/dL (13.0-17.5); LYMPH # 2.5 x10^3/uL (1.0-4.8); LYMPH % 32 % (24-48); MEAN CORPUSCULAR HEMOGLOBIN 24 pg (25-35); MEAN CORPUSCULAR HGB CONC 32 g/dL (31-37); MEAN CORPUSCULAR VOLUME 75 fL (79-100); MONO # 0.8 x10^3/uL (0.0-1.1); MONO % 10 % (0-9); NEUT # 4.3 x10^3uL (1.8-7.7); NEUT % 55 % (31-73); PLATELET COUNT 341 x10^3/uL (140-400); RED BLOOD COUNT 5.66 x10^6/uL (4.30-5.70); RED CELL DISTRIBUTION WIDTH 16.4 % (11.5-14.5); WHITE BLOOD COUNT 7.9 x10^3/uL (4.0-11.0)
[2017-02-27 06:28] LABS: UNFRACTIONATED HEPARIN TESTING 0.37 IU/mL (0.30-0.70)
[2017-02-27 06:37] LABS: ANION GAP 11 (6-14); BLOOD UREA NITROGEN 11 mg/dL (8-26); CALCIUM 9.1 mg/dL (8.5-10.1); CARBON DIOXIDE 25 mmol/L (21-32); CHLORIDE 104 mmol/L (98-107); CREATININE 0.6 mg/dL (0.7-1.3); GLUCOSE 138 mg/dL (70-99); POTASSIUM 3.9 mmol/L (3.5-5.1); SODIUM 140 mmol/L (136-145)
[2017-02-27] MEDS: IV RINGERS,LACTATED 1000ML 1,000 ML IV (07:00)
[2017-02-27] MEDS ORDERED: ONDANSETRON PF 4 MG/2 ML VIAL. IV ×2 (07:00→18:45)
[2017-02-27] MEDS ORDERED: LIDOCAINE 1% PF 2 ML VIAL. ID (07:00)
[2017-02-27] MEDS ORDERED: HYDROmorphone 2 MG/ML VIAL IV (07:00)
[2017-02-27] MEDS ORDERED: MORPHINE SULFATE 2 MG/ML DISP.SYRIN. IV (07:00)
[2017-02-27] MEDS ORDERED: fentaNYL PF VIAL 100 MCG/2 ML VIAL IV ×3 (07:00→18:45)
[2017-02-27] MEDS ORDERED: PROCHLORPERAZINE 10 MG/2 ML VIAL. IV (07:00)
[2017-02-27] MEDS: INSULIN ASPART 300 UNITS/3 ML INSULN.PEN SQ ×6 (07:30→17:00)
[2017-02-27 08:09] LABS: POC GLUCOSE 162 mg/dL (70-99)
[2017-02-27] MEDS: ASPIRIN ENTERIC COATED 81 MG TABLET.DR. PO (08:41)
[2017-02-27] MEDS: METOPROLOL TART IMMED RELEASE 50 MG TABLET. PO ×2 (08:43→20:52)
[2017-02-27] MEDS: HEPARIN 25,000UTS/500ML PREMIX 500 ML IV (08:47)
[2017-02-27] MEDS: CLOPIDOGREL BISULFATE 75 MG TABLET PO ×2 (09:00→19:29)
[2017-02-27] MEDS ORDERED: cloNIDine HCL 0.1 MG TABLET PO (11:30)
[2017-02-27 11:59] LABS: POC GLUCOSE 210 mg/dL (70-99)
[2017-02-27] MEDS ORDERED: fentaNYL PF VIAL 250 MCG/5 ML VIAL (12:15)
[2017-02-27] MEDS ORDERED: DEXAMETHASONE SOD PHOS 20 MG/5 ML VIAL. (12:16)
[2017-02-27] MEDS ORDERED: ONDANSETRON PF 4 MG/2 ML VIAL. (12:16)
[2017-02-27] MEDS ORDERED: ROCURONIUM 100 MG/10 ML VIAL. (12:16)
[2017-02-27] MEDS ORDERED: PROPOFOL 20 ML IV (12:16)
[2017-02-27] MEDS ORDERED: ISOFLURANE > 120 MINUTES. IH ×2 (12:16→18:07)
[2017-02-27] MEDS ORDERED: LIDOCAINE 2% PF Vial for OR 5 ML VIAL. (12:16)
[2017-02-27] MEDS ORDERED: HEPARIN for IV BOLUS 10,000 UNIT/10 ML VIAL. (12:16)
[2017-02-27] MEDS ORDERED: PHENYLEPHRINE in 0.9% NACL PF 1 MG/10 ML SYRINGE. IV (12:16)
[2017-02-27] MEDS ORDERED: IOHEXOL 300 MG/ML 100ML VIAL. (12:18)
[2017-02-27] MEDS ORDERED: MIDAZOLAM HCL/PF 2 MG/2 ML VIAL. (12:28)
[2017-02-27] MEDS: HEPARIN SODIUM 5,000 UNIT in IV NORMAL SALINE 500ML BAG 500 ML IRR (13:12)
[2017-02-27] MEDS ORDERED: VECURONIUM BOLUS 10 MG VIAL. IV (14:23)
[2017-02-27] MEDS ORDERED: MORPHINE SULFATE 10 MG/ML VIAL. (15:44)
[2017-02-27] MEDS ORDERED: ROCURONIUM 50 MG/5 ML VIAL. (16:23)
[2017-02-27] MEDS ORDERED: ceFAZolin 1GM IVPB FOR OMNI 100 ML IV (16:34)
[2017-02-27] MEDS ORDERED: NEOSTIGMINE METHYLSULFATE 5 MG/5 ML SYRINGE. (17:50)
[2017-02-27] MEDS ORDERED: GLYCOPYRROLATE 1 MG/5 ML VIAL. (17:50)
[2017-02-27] MEDS: INSULIN REGULAR VIAL 150 UNIT in 0.9 % SODIUM CHLORIDE 150ML 150 ML IV (18:23)
[2017-02-27] MEDS: SURGICEL FIBRILLAR 1X2 EACH. (18:27)
[2017-02-27] MEDS ORDERED: oxyCODONE/APAP 5/325 1 TAB TABLET PO (18:45)
[2017-02-27] MEDS ORDERED: ATROPINE 0.5 MG/5 ML DISP.SYRIN. IV (18:45)
[2017-02-27] MEDS ORDERED: BISACODYL 10 MG SUPP.RECT. PR (18:45)
[2017-02-27] MEDS ORDERED: ACETAMINOPHEN 325 MG TABLET. PO (18:45)
[2017-02-27] MEDS ORDERED: MAGNESIUM HYDROXIDE 2,400 MG/30 ML ORAL.SUSP. PO (18:45)
[2017-02-27] MEDS ORDERED: NITROGLYCERIN SUBLINGUAL 0.4 MG BOTTLE OF 25. SL (18:45)
[2017-02-27] MEDS ORDERED: 0.9 % SODIUM CHLORIDE 10 ML DISP.SYRIN. IV (18:45)
[2017-02-27] MEDS: fentaNYL PF VIAL 100 MCG/2 ML VIAL IV (18:45)
[2017-02-27] MEDS ORDERED: LACTULOSE 20 GM/30 ML SOLUTION. PO (18:45)
[2017-02-27] MEDS: MIDAZOLAM HCL/PF 2 MG/2 ML VIAL. IV (18:45)
[2017-02-27 19:01] LABS: POC GLUCOSE 200 mg/dL (70-99)
[2017-02-27] MEDS ORDERED: HEPARIN PF for SUB-Q USE 5,000 UNIT/0.5 ML VIAL. SQ ×2 (19:14→22:00)
[2017-02-27] MEDS: HEPARIN PF for SUB-Q USE 5,000 UNIT/0.5 ML VIAL. SQ (19:29)
[2017-02-27] MEDS: LABETALOL 20 MG/4 ML DISP.SYRIN. IVP (19:31)
[2017-02-27] MEDS: IV NORMAL SALINE 1000ML BAG 1,000 ML IV (20:26)
[2017-02-27] MEDS: ceFAZolin SODIUM IV Push 1 GM VIAL. IVP (20:53)
[2017-02-27] MEDS: INSULIN DETEMIR 300 UNITS/3 ML INSULN.PEN. SQ (20:53)
[2017-02-27] MEDS: ATORVASTATIN CALCIUM 40 MG TABLET. PO (20:53)
[2017-02-27 21:15] LABS: POC GLUCOSE 167 mg/dL (70-99)
[2017-02-27] MEDS: oxyCODONE/APAP 5/325 1 TAB TABLET PO (21:50)
[2017-02-27] MEDS ORDERED: ceFAZolin SODIUM 1 GM in IV DEXTROSE 5% 50 ML IV (22:00)
[2017-02-27 22:07] LABS: POC GLUCOSE 228 mg/dL (70-99)
[2017-02-27 23:12] LABS: POC GLUCOSE 309 mg/dL (70-99)
[2017-02-28 00:18] LABS: POC GLUCOSE 252 mg/dL (70-99)
[2017-02-28 01:11] LABS: POC GLUCOSE 215 mg/dL (70-99)
[2017-02-28 02:01] LABS: POC GLUCOSE 188 mg/dL (70-99)
[2017-02-28] MEDS: oxyCODONE/APAP 5/325 1 TAB TABLET PO ×5 (02:06→20:14)
[2017-02-28 02:16] LABS: POC GLUCOSE 213 mg/dL (70-99)
[2017-02-28 03:11] LABS: POC GLUCOSE 218 mg/dL (70-99)
[2017-02-28 04:08] LABS: POC GLUCOSE 179 mg/dL (70-99)
[2017-02-28] MEDS: IV NORMAL SALINE 1000ML BAG 1,000 ML IV (05:00)
[2017-02-28] MEDS: ceFAZolin SODIUM IV Push 1 GM VIAL. IVP ×2 (05:00→12:50)
[2017-02-28] MEDS: HEPARIN PF for SUB-Q USE 5,000 UNIT/0.5 ML VIAL. SQ ×3 (05:02→20:23)
[2017-02-28 05:15] LABS: POC GLUCOSE 196 mg/dL (70-99)
[2017-02-28 05:55] LABS: ADD MAN DIFF? NO
[2017-02-28 06:05] LABS: BASO % 0 % (0-3); EOS % 0 % (0-3); HEMOGLOBIN 11.1 g/dL (13.0-17.5); LYMPH # 1.6 x10^3/uL (1.0-4.8); LYMPH % 16 % (24-48); MEAN CORPUSCULAR HEMOGLOBIN 24 pg (25-35); MEAN CORPUSCULAR HGB CONC 32 g/dL (31-37); MEAN CORPUSCULAR VOLUME 75 fL (79-100); MONO # 1.1 x10^3/uL (0.0-1.1); MONO % 11 % (0-9); NEUT # 7.1 x10^3uL (1.8-7.7); NEUT % 72 % (31-73); PLATELET COUNT 293 x10^3/uL (140-400); RED BLOOD COUNT 4.65 x10^6/uL (4.30-5.70); RED CELL DISTRIBUTION WIDTH 16.5 % (11.5-14.5); WHITE BLOOD COUNT 9.9 x10^3/uL (4.0-11.0)
[2017-02-28 06:14] LABS: POC GLUCOSE 190 mg/dL (70-99)
[2017-02-28 06:42] LABS: ANION GAP 10 (6-14); BLOOD UREA NITROGEN 11 mg/dL (8-26); CARBON DIOXIDE 24 mmol/L (21-32); CHLORIDE 103 mmol/L (98-107); CREATININE 0.7 mg/dL (0.7-1.3); GFR 114.6; GLUCOSE 185 mg/dL (70-99); SODIUM 137 mmol/L (136-145)
[2017-02-28 06:42] LABS: POC GLUCOSE 184 mg/dL (70-99)
[2017-02-28 06:42] LABS: POC GLUCOSE 183 mg/dL (70-99)
[2017-02-28 06:42] LABS: POC GLUCOSE 202 mg/dL (70-99)
[2017-02-28] MEDS: INSULIN ASPART 300 UNITS/3 ML INSULN.PEN SQ ×6 (07:30→17:40)
[2017-02-28 07:31] LABS: POC GLUCOSE 184 mg/dL (70-99)
[2017-02-28] MEDS ORDERED: CLOPIDOGREL BISULFATE 75 MG TABLET PO (08:00)
[2017-02-28 08:19] LABS: POC GLUCOSE 158 mg/dL (70-99)
[2017-02-28] MEDS: ASPIRIN ENTERIC COATED 81 MG TABLET.DR. PO (08:42)
[2017-02-28] MEDS: CLOPIDOGREL BISULFATE 75 MG TABLET PO (08:42)
[2017-02-28] MEDS: METOPROLOL TART IMMED RELEASE 50 MG TABLET. PO ×2 (08:42→20:21)
[2017-02-28 09:26] LABS: POC GLUCOSE 189 mg/dL (70-99)
[2017-02-28] MEDS ORDERED: MAGNESIUM HYDROXIDE 2,400 MG/30 ML ORAL.SUSP. PO (10:00)
[2017-02-28] MEDS: POLYETHYLENE GLYCOL 3350 17 GM PACKET. PO (11:16)
[2017-02-28] MEDS: DOCUSATE SODIUM 100 MG CAPSULE. PO (11:16)
[2017-02-28 12:28] LABS: POC GLUCOSE 306 mg/dL (70-99)
[2017-02-28 17:32] LABS: POC GLUCOSE 285 mg/dL (70-99)
[2017-02-28 19:53] LABS: POC GLUCOSE 237 mg/dL (70-99)
[2017-02-28] MEDS: ATORVASTATIN CALCIUM 40 MG TABLET. PO (20:13)
[2017-02-28] MEDS: INSULIN DETEMIR 300 UNITS/3 ML INSULN.PEN. SQ (20:22)
[2017-03-01] MEDS: oxyCODONE/APAP 5/325 1 TAB TABLET PO ×5 (00:25→16:49)
[2017-03-01 05:52] LABS: ADD MAN DIFF? NO
[2017-03-01 06:00] LABS: BASO # 0.1 x10^3/uL (0.0-0.2); BASO % 1 % (0-3); EOS # 0.2 x10^3/uL (0.0-0.7); EOS % 2 % (0-3); HEMATOCRIT 35.8 % (39.0-53.0); HEMOGLOBIN 11.4 g/dL (13.0-17.5); LYMPH # 1.6 x10^3/uL (1.0-4.8); LYMPH % 19 % (24-48); MEAN CORPUSCULAR HEMOGLOBIN 24 pg (25-35); MEAN CORPUSCULAR HGB CONC 32 g/dL (31-37); MEAN CORPUSCULAR VOLUME 75 fL (79-100); MONO # 1.1 x10^3/uL (0.0-1.1); MONO % 13 % (0-9); NEUT # 5.4 x10^3uL (1.8-7.7); NEUT % 65 % (31-73); PLATELET COUNT 298 x10^3/uL (140-400); RED BLOOD COUNT 4.77 x10^6/uL (4.30-5.70); RED CELL DISTRIBUTION WIDTH 16.8 % (11.5-14.5); WHITE BLOOD COUNT 8.3 x10^3/uL (4.0-11.0)
[2017-03-01] MEDS: HEPARIN PF for SUB-Q USE 5,000 UNIT/0.5 ML VIAL. SQ ×3 (06:17→21:12)
[2017-03-01 06:57] LABS: ANION GAP 8 (6-14); BLOOD UREA NITROGEN 9 mg/dL (8-26); CALCIUM 8.4 mg/dL (8.5-10.1); CARBON DIOXIDE 26 mmol/L (21-32); CHLORIDE 103 mmol/L (98-107); CREATININE 0.7 mg/dL (0.7-1.3); GFR 114.6; GLUCOSE 139 mg/dL (70-99); POTASSIUM 3.8 mmol/L (3.5-5.1); SODIUM 137 mmol/L (136-145)
[2017-03-01] MEDS: INSULIN ASPART 300 UNITS/3 ML INSULN.PEN SQ ×6 (08:00→18:06)
[2017-03-01 08:15] LABS: POC GLUCOSE 146 mg/dL (70-99)
[2017-03-01] MEDS: POLYETHYLENE GLYCOL 3350 17 GM PACKET. PO (08:32)
[2017-03-01] MEDS: DOCUSATE SODIUM 100 MG CAPSULE. PO (08:32)
[2017-03-01] MEDS: CLOPIDOGREL BISULFATE 75 MG TABLET PO (08:32)
[2017-03-01] MEDS: ASPIRIN ENTERIC COATED 81 MG TABLET.DR. PO (08:32)
[2017-03-01] MEDS: METOPROLOL TART IMMED RELEASE 50 MG TABLET. PO ×2 (08:33→21:04)
[2017-03-01 12:18] LABS: POC GLUCOSE 169 mg/dL (70-99)
[2017-03-01] MEDS: oxyCODONE IR 5 MG TABLET PO (15:09)
[2017-03-01 17:48] LABS: POC GLUCOSE 109 mg/dL (70-99)
[2017-03-01 20:43] LABS: POC GLUCOSE 223 mg/dL (70-99)
[2017-03-01] MEDS: ATORVASTATIN CALCIUM 40 MG TABLET. PO (21:04)
[2017-03-01] MEDS: ZOLPIDEM 5 MG TABLET. PO (21:06)
[2017-03-01] MEDS: INSULIN DETEMIR 300 UNITS/3 ML INSULN.PEN. SQ (21:11)
[2017-03-02] MEDS: HEPARIN PF for SUB-Q USE 5,000 UNIT/0.5 ML VIAL. SQ ×3 (06:13→20:49)
[2017-03-02] MEDS: INSULIN ASPART 300 UNITS/3 ML INSULN.PEN SQ ×6 (08:00→18:20)
[2017-03-02 08:35] LABS: POC GLUCOSE 204 mg/dL (70-99)
[2017-03-02 08:36] LABS: ADD MAN DIFF? NO
[2017-03-02 08:40] LABS: BASO # 0.1 x10^3/uL (0.0-0.2); BASO % 1 % (0-3); EOS # 0.2 x10^3/uL (0.0-0.7); EOS % 2 % (0-3); HEMATOCRIT 37.6 % (39.0-53.0); HEMOGLOBIN 11.8 g/dL (13.0-17.5); LYMPH # 1.7 x10^3/uL (1.0-4.8); LYMPH % 22 % (24-48); MEAN CORPUSCULAR HEMOGLOBIN 24 pg (25-35); MEAN CORPUSCULAR HGB CONC 31 g/dL (31-37); MEAN CORPUSCULAR VOLUME 76 fL (79-100); MONO % 12 % (0-9); NEUT # 5.1 x10^3uL (1.8-7.7); NEUT % 63 % (31-73); PLATELET COUNT 322 x10^3/uL (140-400); RED BLOOD COUNT 4.94 x10^6/uL (4.30-5.70); RED CELL DISTRIBUTION WIDTH 16.8 % (11.5-14.5)
[2017-03-02 08:47] LABS: ANION GAP 9 (6-14); BLOOD UREA NITROGEN 13 mg/dL (8-26); CALCIUM 8.4 mg/dL (8.5-10.1); CARBON DIOXIDE 25 mmol/L (21-32); CHLORIDE 100 mmol/L (98-107); CREATININE 0.8 mg/dL (0.7-1.3); GFR 98.3; GLUCOSE 226 mg/dL (70-99); POTASSIUM 4.3 mmol/L (3.5-5.1); SODIUM 134 mmol/L (136-145)
[2017-03-02] MEDS: DOCUSATE SODIUM 100 MG CAPSULE. PO (09:03)
[2017-03-02] MEDS: CLOPIDOGREL BISULFATE 75 MG TABLET PO (09:04)
[2017-03-02] MEDS: ASPIRIN ENTERIC COATED 81 MG TABLET.DR. PO (09:05)
[2017-03-02] MEDS: POLYETHYLENE GLYCOL 3350 17 GM PACKET. PO (09:05)
[2017-03-02] MEDS: METOPROLOL TART IMMED RELEASE 50 MG TABLET. PO ×2 (09:05→20:47)
[2017-03-02 12:24] LABS: POC GLUCOSE 208 mg/dL (70-99)
[2017-03-02 17:33] LABS: POC GLUCOSE 99 mg/dL (70-99)
[2017-03-02 20:39] LABS: POC GLUCOSE 107 mg/dL (70-99)
[2017-03-02] MEDS: ATORVASTATIN CALCIUM 40 MG TABLET. PO (20:47)
[2017-03-02] MEDS: INSULIN DETEMIR 300 UNITS/3 ML INSULN.PEN. SQ (20:50)
[2017-03-03 05:43] LABS: ANION GAP 12 (6-14); BLOOD UREA NITROGEN 16 mg/dL (8-26); CALCIUM 8.6 mg/dL (8.5-10.1); CARBON DIOXIDE 23 mmol/L (21-32); CHLORIDE 99 mmol/L (98-107); CREATININE 0.9 mg/dL (0.7-1.3); GFR 85.8; GLUCOSE 189 mg/dL (70-99); POTASSIUM 4.2 mmol/L (3.5-5.1); SODIUM 134 mmol/L (136-145)
[2017-03-03] MEDS: HEPARIN PF for SUB-Q USE 5,000 UNIT/0.5 ML VIAL. SQ ×3 (06:32→21:15)
[2017-03-03 08:00] LABS: POC GLUCOSE 205 mg/dL (70-99)
[2017-03-03] MEDS: DOCUSATE SODIUM 100 MG CAPSULE. PO (08:54)
[2017-03-03] MEDS: CLOPIDOGREL BISULFATE 75 MG TABLET PO (08:54)
[2017-03-03] MEDS: METOPROLOL TART IMMED RELEASE 50 MG TABLET. PO ×2 (08:54→21:10)
[2017-03-03] MEDS: ASPIRIN ENTERIC COATED 81 MG TABLET.DR. PO (08:55)
[2017-03-03] MEDS: INSULIN ASPART 300 UNITS/3 ML INSULN.PEN SQ ×6 (08:58→18:36)
[2017-03-03] MEDS: POLYETHYLENE GLYCOL 3350 17 GM PACKET. PO (09:00)
[2017-03-03 09:23] LABS: ADD MAN DIFF? NO
[2017-03-03 09:29] LABS: BASO # 0.1 x10^3/uL (0.0-0.2); BASO % 1 % (0-3); EOS # 0.2 x10^3/uL (0.0-0.7); EOS % 3 % (0-3); HEMATOCRIT 35.9 % (39.0-53.0); HEMOGLOBIN 11.6 g/dL (13.0-17.5); LYMPH # 1.5 x10^3/uL (1.0-4.8); LYMPH % 19 % (24-48); MEAN CORPUSCULAR HEMOGLOBIN 25 pg (25-35); MEAN CORPUSCULAR HGB CONC 32 g/dL (31-37); MEAN CORPUSCULAR VOLUME 77 fL (79-100); MONO # 1.1 x10^3/uL (0.0-1.1); MONO % 13 % (0-9); NEUT # 5.3 x10^3uL (1.8-7.7); NEUT % 65 % (31-73); PLATELET COUNT 339 x10^3/uL (140-400); RED BLOOD COUNT 4.69 x10^6/uL (4.30-5.70); RED CELL DISTRIBUTION WIDTH 17.3 % (11.5-14.5); WHITE BLOOD COUNT 8.2 x10^3/uL (4.0-11.0)
[2017-03-03] MEDS: MAGNESIUM HYDROXIDE 2,400 MG/30 ML ORAL.SUSP. PO (10:34)
[2017-03-03] MEDS: COLCHICINE 0.6 MG TABLET PO (10:35)
[2017-03-03 11:19] LABS: POC GLUCOSE 125 mg/dL (70-99)
[2017-03-03 11:48] LABS: SEDIMENTATION RATE 61 (0-15)
[2017-03-03] MEDS: oxyCODONE IR 5 MG TABLET PO (13:49)
[2017-03-03 16:33] LABS: POC GLUCOSE 155 mg/dL (70-99)
[2017-03-03] MEDS: ATORVASTATIN CALCIUM 40 MG TABLET. PO (21:10)
[2017-03-03 21:11] LABS: POC GLUCOSE 141 mg/dL (70-99)
[2017-03-03] MEDS: INSULIN DETEMIR 300 UNITS/3 ML INSULN.PEN. SQ (21:16)
[2017-03-04 05:05] LABS: ADD MAN DIFF? NO
[2017-03-04 05:36] LABS: BASO # 0.1 x10^3/uL (0.0-0.2); BASO % 1 % (0-3); EOS # 0.3 x10^3/uL (0.0-0.7); EOS % 4 % (0-3); HEMOGLOBIN 11.2 g/dL (13.0-17.5); LYMPH # 1.4 x10^3/uL (1.0-4.8); LYMPH % 21 % (24-48); MEAN CORPUSCULAR HEMOGLOBIN 24 pg (25-35); MEAN CORPUSCULAR HGB CONC 32 g/dL (31-37); MEAN CORPUSCULAR VOLUME 75 fL (79-100); MONO % 16 % (0-9); NEUT # 3.9 x10^3uL (1.8-7.7); NEUT % 59 % (31-73); PLATELET COUNT 360 x10^3/uL (140-400); RED BLOOD COUNT 4.65 x10^6/uL (4.30-5.70); WHITE BLOOD COUNT 6.7 x10^3/uL (4.0-11.0)
[2017-03-04] MEDS: HEPARIN PF for SUB-Q USE 5,000 UNIT/0.5 ML VIAL. SQ ×3 (05:49→22:07)
[2017-03-04 05:55] LABS: ANION GAP 11 (6-14); BLOOD UREA NITROGEN 16 mg/dL (8-26); CARBON DIOXIDE 26 mmol/L (21-32); CHLORIDE 99 mmol/L (98-107); CREATININE 0.8 mg/dL (0.7-1.3); GFR 98.3; GLUCOSE 213 mg/dL (70-99); SODIUM 136 mmol/L (136-145)
[2017-03-04 08:25] LABS: POC GLUCOSE 209 mg/dL (70-99)
[2017-03-04] MEDS: ASPIRIN ENTERIC COATED 81 MG TABLET.DR. PO (08:58)
[2017-03-04] MEDS: DOCUSATE SODIUM 100 MG CAPSULE. PO (08:58)
[2017-03-04] MEDS: POLYETHYLENE GLYCOL 3350 17 GM PACKET. PO (08:58)
[2017-03-04] MEDS: CLOPIDOGREL BISULFATE 75 MG TABLET PO (08:58)
[2017-03-04] MEDS: COLCHICINE 0.6 MG TABLET PO (08:58)
[2017-03-04] MEDS: METOPROLOL TART IMMED RELEASE 50 MG TABLET. PO ×2 (08:58→20:14)
[2017-03-04] MEDS: MAGNESIUM HYDROXIDE 2,400 MG/30 ML ORAL.SUSP. PO (08:59)
[2017-03-04] MEDS: INSULIN ASPART 300 UNITS/3 ML INSULN.PEN SQ ×6 (09:02→17:35)
[2017-03-04 11:46] LABS: POC GLUCOSE 204 mg/dL (70-99)
[2017-03-04] MEDS: GABAPENTIN 100 MG CAPSULE. PO ×2 (14:00→20:14)
[2017-03-04 16:36] LABS: POC GLUCOSE 161 mg/dL (70-99)
[2017-03-04] MEDS ORDERED: diphenhydrAMINE HCL 25 MG CAPSULE PO (17:45)
[2017-03-04] MEDS: ATORVASTATIN CALCIUM 40 MG TABLET. PO (20:14)
[2017-03-04] MEDS: INSULIN DETEMIR 300 UNITS/3 ML INSULN.PEN. SQ ×2 (21:00→22:05)
[2017-03-04 22:34] LABS: POC GLUCOSE 114 mg/dL (70-99)
[2017-03-05] MEDS: HEPARIN PF for SUB-Q USE 5,000 UNIT/0.5 ML VIAL. SQ ×2 (05:57→13:05)
[2017-03-05] MEDS: DOCUSATE SODIUM 100 MG CAPSULE. PO (07:49)
[2017-03-05] MEDS: CLOPIDOGREL BISULFATE 75 MG TABLET PO (07:49)
[2017-03-05 07:50] LABS: POC GLUCOSE 192 mg/dL (70-99)
[2017-03-05] MEDS: METOPROLOL TART IMMED RELEASE 50 MG TABLET. PO (07:50)
[2017-03-05] MEDS: ASPIRIN ENTERIC COATED 81 MG TABLET.DR. PO (07:50)
[2017-03-05] MEDS: GABAPENTIN 100 MG CAPSULE. PO ×2 (07:50→14:18)
[2017-03-05] MEDS: COLCHICINE 0.6 MG TABLET PO (07:50)
[2017-03-05] MEDS: POLYETHYLENE GLYCOL 3350 17 GM PACKET. PO (07:50)
[2017-03-05] MEDS: INSULIN ASPART 300 UNITS/3 ML INSULN.PEN SQ ×4 (08:00→13:00)
[2017-03-05 11:49] LABS: POC GLUCOSE 121 mg/dL (70-99)
[2017-03-05] MEDS: DIPHENHYDRAMINE/ZINC ACETATE 2%/0.1% TOPICAL CREAM 28GM TUBE. TP (13:03)
[2017-03-05] MEDS: oxyCODONE/APAP 5/325 1 TAB TABLET PO (13:14)
== END 2017-03-05 17:30 | disposition home or self-care (01) | DRG 270 ==
LOC: 1 WEST ICU 02-24 09:37 → 2 NORTH 02-25 15:30 → ER 16:23 → ED HOLD 21:36
PROC: 041L09L Bypass Left Femoral Artery to Popliteal Artery with Autologous Venous Tissue, Open Approach (ICD-10-PCS; principal; 2017-02-27 12:30)
PROC: 041J0JQ Bypass Left External Iliac Artery to Lower Extremity Artery with Synthetic Substitute, Open Approach (ICD-10-PCS; 2017-02-27 12:30)
PROC: 04CL0ZZ Extirpation of Matter from Left Femoral Artery, Open Approach (ICD-10-PCS; 2017-02-27 12:30)
PROC: 06BP0ZZ Excision of Right Saphenous Vein, Open Approach (ICD-10-PCS; 2017-02-27 12:30)
DX: T82.856A Stenosis of peripheral vascular stent, initial encounter (principal); I50.31 Acute diastolic (congestive) heart failure; I82.412 Acute embolism and thrombosis of left femoral vein; E11.42 Type 2 diabetes mellitus with diabetic polyneuropathy; E11.51 Type 2 diabetes mellitus with diabetic peripheral angiopathy without gangrene; I48.91 Unspecified atrial fibrillation; E78.5 Hyperlipidemia, unspecified; F17.200 Nicotine dependence, unspecified, uncomplicated; I11.0 Hypertensive heart disease with heart failure; I25.10 Atherosclerotic heart disease of native coronary artery without angina pectoris; I70.212 Atherosclerosis of native arteries of extremities with intermittent claudication, left leg; I25.5 Ischemic cardiomyopathy; I49.3 Ventricular premature depolarization; I99.8 Other disorder of circulatory system; K59.00 Constipation, unspecified; Z79.01 Long term (current) use of anticoagulants; Z79.82 Long term (current) use of aspirin; Z82.49 Family history of ischemic heart disease and other diseases of the circulatory system; Z79.4 Long term (current) use of insulin; I25.2 Old myocardial infarction; Z95.1 Presence of aortocoronary bypass graft; Y92.89 Other specified places as the place of occurrence of the external cause
CPT/HCPCS: 36415; 71045; 80048; 80053; 82962; 83036; 84484; 84550; 85025; 85027; 85520; 85610; 85651; 85730; 93005; 93923; 93970; 93971; 96365; 96374; 96375; 97116-GP; 97161-GP; 97164-GP; 97166-GO; 97530-GP; 99291-25; 99292; C1768; C1769; J0690; J1100; J1160; J1644; J1815; J2250; J2270; J2370; J2405; J2704; J2710; J3010; J3490; J7030; J7040; J7120; Q9967

== ENCOUNTER 2018-06-06 05:44 | Inpatient (IN) | payer MEDICARE ==
[~2018-06-06] VITALS: Ht 185.4 cm; Wt 94.9 kg
[~2018-06-06 05:44] MED LIST changes: -AMIO200T2 PO; +AMIO200T4 PO; +APIX5TAB PO; +GABA-585 PO; +INSU100V13 SQ; -METF-620 PO; +METF10007 PO; -METO50TA2 PO; +METO50TA6 PO
[2018-06-06 06:17] LABS: BASO # 0.1 x10^3/uL (0.0-0.2); BASO % 1 % (0-3); EOS # 0.2 x10^3/uL (0.0-0.7); EOS % 2 % (0-3); HEMATOCRIT 41.1 % (39.0-53.0); HEMOGLOBIN 13.9 g/dL (13.0-17.5); LYMPH # 1.7 x10^3/uL (1.0-4.8); LYMPH % 23 % (24-48); MEAN CORPUSCULAR HEMOGLOBIN 29 pg (25-35); MEAN CORPUSCULAR HGB CONC 34 g/dL (31-37); MEAN CORPUSCULAR VOLUME 87 fL (79-100); MONO # 0.8 x10^3/uL (0.0-1.1); MONO % 11 % (0-9); NEUT # 4.7 x10^3uL (1.8-7.7); NEUT % 63 % (31-73); PLATELET COUNT 230 x10^3/uL (140-400); RED BLOOD COUNT 4.74 x10^6/uL (4.30-5.70); RED CELL DISTRIBUTION WIDTH 14.3 % (11.5-14.5); WHITE BLOOD COUNT 7.4 x10^3/uL (4.0-11.0)
[2018-06-06 06:22] LABS: CALCIUM 8.5 mg/dL (8.5-10.1); CREATININE 0.8 mg/dL (0.7-1.3); POTASSIUM 4.3 mmol/L (3.5-5.1)
--- NOTE | 2018-06-06 06:23 | PHYS DOC ---
Past Medical History Past Medical History: Diabetes-Type II, DVT, [place] Additional Past Medical Histor: BYPASS SURGERY APPROX OCT 2016, STENT LEFT LEG AFTER BYPASS Past Surgical History: Other Additional Past Surgical Histo: FEMORAL BYPASS Alcohol Use: None Drug Use: None Adult General Chief Complaint Chief Complaint: CHEST PAIN HPI HPI Patient is a poor historian with poor insight into his chronic medical conditions and home medications. First his significant other at bedside for the majority of past medical history questions. Patient is a 62 year old who presents to the ER for evaluation. Patient with history significant for coronary artery disease status post multiple stents and CABG. CABG was approximately 2-3 years ago. Patient also with significant peripheral arterial disease with stents to the lower extremities. Patient reports that approximately 2 AM he woke up and was acutely diaphoretic and felt his lower extremities were cold. States these are similar symptoms to when he's had previous heart attacks. States that symptoms lasted for 10-15 minutes and he tried to go back to sleep but woke up multiple times over the next few hours secondary to symptoms. Took a nitroglycerin and 325 mg of aspirin before arriving. States his symptoms are resolved at this time. Denies any chest pain, shortness of breath, dizziness, nausea, vomiting. Is currently asymptomatic Review of Systems Review of Systems Constitutional: Denies fever or chills, diaphoresis present[] Eyes: Denies change in visual acuity, redness, or eye pain [] HENT: Denies nasal congestion or sore throat [] Respiratory: Denies cough or shortness of breath [] Cardiovascular: No chest pain, no palpitations, no orthopnea, no lower extremity edema. GI: Denies abdominal pain, nausea, vomiting, bloody stools or diarrhea [] : Denies dysuria or hematuria [] Musculoskeletal: Denies back pain or joint pain [] Integument: Denies rash or skin lesions [] Neurologic: Denies headache, focal weakness or sensory changes [] Endocrine: Denies polyuria or polydipsia [] All other systems were reviewed and found to be within normal limits, except as documented in this note. Current Medications Current Medications Current Medications Medications (Trade) Dose Ordered Sig/Lizzeth Start Time Stop Time Status Last Admin Dose Admin Aspirin (Children'S Aspirin) 324 mg 1X ONCE 06/06/18 07:00 06/06/18 07:01 DC Allergies Allergies Allergies Coded Allergies Type Severity Reaction Last Updated Verified No Known Drug Allergies 1/9/18 No Physical Exam Physical Exam Constitutional: Appears older than stated age, chronically ill-appearing, no acute distress, nontoxic appearing HENT: Normocephalic, atraumatic, Eyes: PERRLA, EOMI, Neck: Normal range of motion, no tenderness, supple, no stridor. [] Cardiovascular:Heart rate regular rhythm, no murmur [] Lungs & Thorax: Bilateral breath sounds clear to auscultation [] Abdomen: Bowel sounds normal, soft, no tenderness, no masses, no pulsatile masses. [] Skin: Lower extremities are warm to touch and with normal coloring. Back: No tenderness, no CVA tenderness. [] Extremities: No tenderness, no cyanosis, no clubbing, ROM intact, no edema, bilateral DP pulses +1 out of 4, Cap Refill less than 2 seconds in bilateral lower extremity [] Neurologic: Alert and oriented X 3, no focal deficits noted. [] Psychologic: Affect normal, judgement normal, mood normal. [] Current Patient Data Vital Signs Vital Signs Date Time Temp Pulse Resp B/P (MAP) Pulse Ox O2 Delivery O2 Flow Rate FiO2 06/06/18 05:55 97.5 69 21 154/87 (109) 97 Room Air 97.5 Lab Values Laboratory Tests Test 06/06/18 06:04 White Blood Count 7.4 x10^3/uL (4.0-11.0) Red Blood Count 4.74 x10^6/uL (4.30-5.70) Hemoglobin 13.9 g/dL (13.0-17.5) Hematocrit 41.1 % (39.0-53.0) Mean Corpuscular Volume 87 fL (79-100) Mean Corpuscular Hemoglobin 29 pg (25-35) Mean Corpuscular Hemoglobin Concent 34 g/dL (31-37) Red Cell Distribution Width 14.3 % (11.5-14.5) Platelet Count 230 x10^3/uL (140-400) Neutrophils (%) (Auto) 63 % (31-73) Lymphocytes (%) (Auto) 23 % (24-48) L Monocytes (%) (Auto) 11 % (0-9) H Eosinophils (%) (Auto) 2 % (0-3) Basophils (%) (Auto) 1 % (0-3) Neutrophils # (Auto) 4.7 x10^3uL (1.8-7.7) Lymphocytes # (Auto) 1.7 x10^3/uL (1.0-4.8) Monocytes # (Auto) 0.8 x10^3/uL (0.0-1.1) Eosinophils # (Auto) 0.2 x10^3/uL (0.0-0.7) Basophils # (Auto) 0.1 x10^3/uL (0.0-0.2) Prothrombin Time 12.4 SEC (11.7-14.0) Prothrombin Time INR 1.0 (0.8-1.1) Sodium Level 135 mmol/L (136-145) L Potassium Level 4.3 mmol/L (3.5-5.1) Chloride Level 100 mmol/L (98-107) Carbon Dioxide Level 23 mmol/L (21-32) Anion Gap 12 (6-14) Blood Urea Nitrogen 16 mg/dL (8-26) Creatinine 0.8 mg/dL (0.7-1.3) Estimated GFR (Cockcroft-Gault) 98.0 BUN/Creatinine Ratio 20 (6-20) Glucose Level 254 mg/dL (70-99) H Calcium Level 8.5 mg/dL (8.5-10.1) Total Bilirubin 0.5 mg/dL (0.2-1.0) Aspartate Amino Transferase (AST) 18 U/L (15-37) Alanine Aminotransferase (ALT) 34 U/L (16-63) Alkaline Phosphatase 114 U/L (46-116) Troponin I Quantitative 0.047 ng/mL (0.000-0.055) HS-Sbr-Q-Type Natriuretic Peptide 766 pg/mL (0-124) H Total Protein 6.6 g/dL (6.4-8.2) Albumin 3.3 g/dL (3.4-5.0) L Albumin/Globulin Ratio 1.0 (1.0-1.7) Laboratory Tests 06/06/18 06:04 Laboratory Tests 06/06/18 06:04 EKG EKG 0553: Right bundle branch block, heart rate 68, no significant change compared to previous.[] Radiology/Procedures Radiology/Procedures CXR 1 View: ER interpretation. Mild cardiomegaly, no acute cardiopulmonary findings.[] Course & Med Decision Making Course & Med Decision Making Pertinent Labs and Imaging studies reviewed. (See chart for details) 0703: Patient has remained asymptomatic while in the ER. Initial EKG and troponin are reassuring. Patient also does not have any acute findings on this chest x-ray. Patient took nitroglycerin and aspirin prehospital. Will admit for continued evaluation of possible anginal: Given significant history of coronary artery disease and similar presentations in the past. Discussed with Dr. Wheat , on-call hospitalist who is agreeable to admission. Awaiting callback from cardiology. Patient has been hemodynamically stable while in the ER. Dragon Disclaimer Dragon Disclaimer This electronic medical record was generated, in whole or in part, using a voice recognition dictation system. Departure Departure Referrals: YOJANA PIPER MD (PCP) NICKOLAS MURCIA DO Jun 06, 2018 06:23
[2018-06-06 06:29] LABS: ALBUMIN 3.3 g/dL (3.4-5.0); TOTAL BILIRUBIN 0.5 mg/dL (0.2-1.0); TOTAL PROTEIN 6.6 g/dL (6.4-8.2)
[2018-06-06 06:30] LABS: PROTHROMBIN TIME PATIENT 12.4 SEC (11.7-14.0)
[2018-06-06] MEDS ORDERED: ASPIRIN CHEWABLE 81 MG TABLET. PO ONE (07:00)
[2018-06-06] MEDS ORDERED: ONDANSETRON PF 4 MG/2 ML VIAL. IV PRN (07:00)
[2018-06-06] MEDS ORDERED: NITROGLYCERIN SUBLINGUAL 0.4 MG BOTTLE OF 25. SL PRN (07:00)
[2018-06-06] MEDS ORDERED: MORPHINE SULFATE 2 MG/ML VIAL. IV PRN (07:00)
--- NOTE | 2018-06-06 07:43 | RAD ---
Portable chest, 06/06/2018: HISTORY: Shortness of breath There has been a previous median sternotomy. The heart is at the upper limits of normal in size. There is calcific plaquing the aorta. The pulmonary vascularity is normal. No pulmonary infiltrate is seen. There is no evidence of pleural fluid. IMPRESSION: 1. Borderline cardiomegaly. 2. No acute abnormality is detected. Electronically signed by: Tobias Yi MD (06/06/2018 7:40 AM) [facility]
[2018-06-06 07:45] VITALS: BP 154/88
--- NOTE | 2018-06-06 07:50 | NUR ---
The patient, ELYSSA CONTRERAS, 62 y/o, M admitted by ROCHELLE GUTIERREZ MD, was given written information regarding hospital policies, unit procedures and contact persons. Valuables were checked and left in room with pt. Vitals checked. No c/o chest pain at this time. Pt oriented to room and explained plan of care. Pt is currently NPO until Cardiology clears. Pt verbalized understanding. Call light within reach. Will continue to monitor.
[2018-06-06] MEDS ORDERED: GABA300C18 PO (08:00)
[2018-06-06] MEDS ORDERED: INSU100I17 SQ (08:02)
[2018-06-06] MEDS ORDERED: METF500T16 PO (08:03)
[2018-06-06 08:42] LABS: CHOLESTEROL/HDL RATIO 7.6
--- NOTE | 2018-06-06 08:59 | PDOC2 ---
RADHA MORELOS GERMAN TEACHER 06/06/18 0859: CARDIAC CONSULT DATE OF CONSULT Date of Consult DATE: 06/06/18 TIME: 08:47 REASON FOR CONSULT Reason for Consult: Diaphoresis- ?anginal equivalent REFERRING PHYSICIAN Referring Physician: Dr. Blakely SOURCE Source: Chart review, Patient HISTORY OF PRESENT ILLNESS HISTORY OF PRESENT ILLNESS This is a 62 yo male, with a history of CAD s/p PCI/stents and CABG, who presented secondary to diaphoresis and lower extremity coolness. Reports symptoms to be very similar to when he had previous heart attacks. Denies any chest pain, palpitations, dizziness, SOA, SAMUEL, or nausea/vomiting. No LE numbness, tingling, change in color, or wounds. Reports compliance with Eliquis and Plavix. PAST MEDICAL HISTORY Cardiovascular: CAD, HTN, [place], Hyperlipidemia, Other (PAD) Pulmonary: No pertinent hx CENTRAL NERVOUS SYSTEM: Other (no pertinent hx) GI: No pertinent hx Heme/Onc: No pertinent hx Hepatobiliary: No pertinent hx Psych: No pertinent hx Musculoskeletal: Osteoarthritis Rheumatologic: No pertinent hx Infectious disease: No pertinent hx ENT: No pertinent hx Renal/: No pertinent hx Endocrine: Diabetes Dermatology: No pertinent hx PAST SURGICAL HISTORY Past Surgical History: CABG, Other (extensive bilateral LE PAD intervention/ bypass, bilateral shoulder surgery) FAMILY HISTORY Family History: Heart Disease, Hypertension SOCIAL HISTORY Smoke: Quit (2 years ago) ALCOHOL: none Drugs: None Lives: with Family ALLERGIES ALLERGIES: Coded Allergies: No Known Drug Allergies (Unverified , 02/27/17) ROS Review of System 14 point ROS conducted with pertinent positives noted above in HPI. PHYSICAL EXAM General: Alert, Oriented X3, Cooperative, No acute distress HEENT: Atraumatic, Mucous membr. moist/pink Lungs: Clear to auscultation, Normal air movement Heart: Regular rate, Normal S1, Normal S2 Abdomen: Soft, No tenderness Extremities: No edema, Other (2+ bilateral DP pulses. Extremities warm to touch ) Skin: No breakdown, No significant lesion Neuro: Normal speech, Sensation intact Psych/Mental Status: Mental status NL, Mood NL MUSCULOSKELETAL: Osteoarthritic changes both hands VITALS VITALS Vital Signs Date Time Temp Pulse Resp B/P (MAP) Pulse Ox O2 Delivery O2 Flow Rate FiO2 06/06/18 07:45 97.6 74 18 154/88 (110) 97 Room Air 97.6 LABS Lab: Laboratory Tests Test 06/06/18 06:04 06/06/18 07:56 White Blood Count 7.4 x10^3/uL (4.0-11.0) Red Blood Count 4.74 x10^6/uL (4.30-5.70) Hemoglobin 13.9 g/dL (13.0-17.5) Hematocrit 41.1 % (39.0-53.0) Mean Corpuscular Volume 87 fL (79-100) Mean Corpuscular Hemoglobin 29 pg (25-35) Mean Corpuscular Hemoglobin Concent 34 g/dL (31-37) Red Cell Distribution Width 14.3 % (11.5-14.5) Platelet Count 230 x10^3/uL (140-400) Neutrophils (%) (Auto) 63 % (31-73) Lymphocytes (%) (Auto) 23 % (24-48) Monocytes (%) (Auto) 11 % (0-9) Eosinophils (%) (Auto) 2 % (0-3) Basophils (%) (Auto) 1 % (0-3) Neutrophils # (Auto) 4.7 x10^3uL (1.8-7.7) Lymphocytes # (Auto) 1.7 x10^3/uL (1.0-4.8) Monocytes # (Auto) 0.8 x10^3/uL (0.0-1.1) Eosinophils # (Auto) 0.2 x10^3/uL (0.0-0.7) Basophils # (Auto) 0.1 x10^3/uL (0.0-0.2) Prothrombin Time 12.4 SEC (11.7-14.0) Prothromb Time International Ratio 1.0 (0.8-1.1) Sodium Level 135 mmol/L (136-145) Potassium Level 4.3 mmol/L (3.5-5.1) Chloride Level 100 mmol/L (98-107) Carbon Dioxide Level 23 mmol/L (21-32) Anion Gap 12 (6-14) Blood Urea Nitrogen 16 mg/dL (8-26) Creatinine 0.8 mg/dL (0.7-1.3) Estimated GFR (Cockcroft-Gault) 98.0 BUN/Creatinine Ratio 20 (6-20) Glucose Level 254 mg/dL (70-99) Calcium Level 8.5 mg/dL (8.5-10.1) Total Bilirubin 0.5 mg/dL (0.2-1.0) Aspartate Amino Transf (AST/SGOT) 18 U/L (15-37) Alanine Aminotransferase (ALT/SGPT) 34 U/L (16-63) Alkaline Phosphatase 114 U/L (46-116) Troponin I Quantitative 0.047 ng/mL (0.000-0.055) SF-Ase-M-Type Natriuretic Peptide 766 pg/mL (0-124) Total Protein 6.6 g/dL (6.4-8.2) Albumin 3.3 g/dL (3.4-5.0) Albumin/Globulin Ratio 1.0 (1.0-1.7) Triglycerides Level 573 mg/dL (0-150) Cholesterol Level 151 mg/dL (0-200) LDL Cholesterol, Calculated 16 mg/dL (0-100) VLDL Cholesterol, Calculated 115 mg/dL (0-40) Non-HDL Cholesterol Calculated 131 mg/dL (0-129) HDL Cholesterol 20 mg/dL (40-60) Cholesterol/HDL Ratio 7.6 Glucose (Fingerstick) 211 mg/dL (70-99) ECHOCARDIOGRAM ECHOCARDIOGRAM <Conclusion> Left ventricle systolic function is borderline to mildly impaired. The Ejection Fraction is 45-50%. The inferior, inferoseptal and inferolateral wall are mildly hypokinetic. DATE: 08/07/16 1640 HEART CATH HEART CATH Patient while awaiting single-vessel bypass to the RCA in the setting of recurrent thromboses of previously placed stents had another episode of chest pain this morning with EKG revealing evidence of recurrent stent thrombosis. In this setting he was emergently taken back to the catheterization laboratory after appropriate informed verbal consent. Conclusion 1. 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 Successful balloon angioplasty with jain of CONNIE-3 flow. Recommendations Emergent transfer to coronary artery bypass surgery Case discussed with Dr. Vaughn DATE: 08/13/16 1633 ASSESSMENT/PLAN ASSESSMENT/PLAN 1. Diaphoresis; AMI ruled out. 2. CAD s/p PCI/stents and single-vessel CABG. CP free. Echo revealed LVEF of 40 % with global hypokinesis of the LV with predominant inferior wall hypokinesis. Previous echo showed LVEF 45-50% 3. PAD s/p bilateral LE intervention/bypass. Denies any specific claudication symptoms 4. Hypertension; mildly elevated 5. Hyperlipidemia; statin 7. Diabetes,II Recommendations Continue Plavix, BB, statin Add lisinopril Check lipids NPO p MN Due to significant history/risk factors and mild changes not in echo, will plan for MPI to r/o ischemia in am LE Duplex to evaluate PAD Hold Elijohnson reyesglo and in am in the event heart cath/procedure is warranted Supportive care JEFFREY PENA MD 06/06/18 1646: CARDIAC CONSULT ASSESSMENT/PLAN ASSESSMENT/PLAN Pt. seen and examined. Agree with above SALES REP note. Trop minimally elevated. EF mildly decreased. Given his significant history of stent thrombosis in the coronary and peripheral beds, he would be a poor candidate for PCI. Will plan for MPI first, if significant ischemia, then plan for LHC as needed. Supportive care. RADHA MORELOS APRN Jun 06, 2018 08:59 JEFFREY PENA MD Jun 06, 2018 16:46
--- NOTE | 2018-06-06 09:00 | EKG ---
[facility] [address] [place] [address] Test Date: 2018-06-06 Test Time: 05:51:36 Pat Name: ELYSSA CONTRERAS Department: Room: 258 1 Gender: M Director Adult: MANINDER : 1955 Requested By: CLARKE SHORT Order Number: [id number] Reading MD: Lance Brantley Measurements Intervals [place] Rate: 68 P: 39 WV: 144 QRS: 9 QRSD: 136 T: 0 QT: 456 QTc: 490 Interpretive Statements SINUS RHYTHM RIGHT BUNDLE BRANCH BLOCK QRS(T) CONTOUR ABNORMALITY CONSIDER ANTEROLATERAL MYOCARDIAL DAMAGE CONSISTENT WITH INFERIOR INFARCT AGE UNDETERMINED ABNORMAL ECG Electronically Signed On 06-10-2018 13:30:50 CDT by Lance Brantley
[2018-06-06 10:51] VITALS: BP 153/70
[2018-06-06] MEDS ORDERED: oxyCODONE/APAP 5/325 1 TAB TABLET PO PRN (11:00)
[2018-06-06] MEDS ORDERED: DEXTROSE 50% 25 GM / 50ML DISP.SYRIN. IV PRN (11:15)
[2018-06-06] MEDS ORDERED: ANTI-COAG MONITOR BY PHARMACY. MC PRN (11:15)
--- NOTE | 2018-06-06 12:08 | NUR ---
SS following for discharge planning. SS reviewed pt chart. Pt is from home and is currently on room air. No discharge needs noted at this time. SS will continue to follow for pending discharge needs.
--- NOTE | 2018-06-06 12:36 | PDOC1 ---
History and Physical Date of Admission Date of Admission DATE: 06/06/18 TIME: 12:33 Identification/Chief Complaint Chief Complaint Diaphoresis Source Source: Chart review, Patient History of Present Illness History of Present Illness Mr Bruno is a 62 yo male, with a history of CAD s/p PCI/stents and CABG, HTN, DM who presented secondary to diaphoresis and lower extremity coolness. Reports symptoms to be very similar to when he had previous MIs, and he has a complicated vascular history with stent occlusions in both his heart (RCA x2) and LLE stent occlusion. Due to his his risk, called for admission to the hospital After initial ED treatment has negative troponins and EKG, evaluated by cardiology. He feels improved. 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 Past Medical History Cardiovascular: CAD, HTN, LA, Hyperlipidemia, Other (PAD) Pulmonary: Bronchitis GI: No pertinent hx Heme/Onc: No pertinent hx Hepatobiliary: No pertinent hx Psych: No pertinent hx Musculoskeletal: low back pain Rheumatologic: No pertinent hx Infectious disease: No pertinent hx Renal/: No pertinent hx Endocrine: Diabetes Past Surgical History Past Surgical History: CABG, Other Family History Family History: Hypertension Social History ALCOHOL: none Drugs: None Current Problem List Problem List Problems Medical Problems: (1) Angina at rest Status: Acute Current Medications Current Medications Current Medications Aspirin (Children'S Aspirin) 324 mg 1X ONCE PO ; Start 06/06/18 at 07:00; Stop 06/06/18 at 07:01; Status DC Ondansetron HCl (Zofran) 4 mg PRN Q8HRS PRN IV NAUSEA/VOMITING; Start 06/06/18 at 07:00; Stop 06/07/18 at 06:59 Morphine Sulfate (Morphine Sulfate) 2 mg PRN Q2HR PRN IV PAIN; Start 06/06/18 at 07:00; Stop 06/07/18 at 06:59 Nitroglycerin (Nitrostat) 0.4 mg PRN Q5MIN PRN SL CHEST PAIN; Start 06/06/18 at 07:00; Stop 06/07/18 at 06:59 Apixaban (Eliquis) 5 mg BID PO ; Start 06/06/18 at 12:00 Atorvastatin Calcium (Lipitor) 40 mg QHS PO ; Start 06/06/18 at 21:00 Clopidogrel Bisulfate (Plavix) 75 mg DAILY PO ; Start 06/06/18 at 11:00 Gabapentin (Neurontin) 300 mg TID PO ; Start 06/06/18 at 14:00 Metoprolol Tartrate (Lopressor) 50 mg BID PO ; Start 06/06/18 at 12:00 Oxycodone/ Acetaminophen (Percocet 5/325) 1 tab PRN Q4HRS PRN PO PAIN MILD; Start 06/06/18 at 11:00 Insulin Human Lispro (HumaLOG) 10 units TIDWMEALS SQ ; Start 06/06/18 at 12:00 Insulin Glargine (Lantus) 55 units QHS SQ ; Start 06/06/18 at 21:00 Insulin Human Lispro (HumaLOG) 0-7 UNITS TIDWMEALS SQ ; Start 06/06/18 at 12:00 Dextrose (Dextrose 50%-Water Syringe) 12.5 gm PRN Q15MIN PRN IV SEE COMMENTS; Start 06/06/18 at 11:15 Info (Anti-Coagulation Monitoring By Pharmacy) 1 each PRN DAILY PRN MC SEE COMMENTS; Start 06/06/18 at 11:15 Active Scripts Active Oxycodone-Acetaminophen 5-325 (Oxycodone Hcl/Acetaminophen) 1 Each Tablet 1 Tab PO PRN Q4HRS PRN Levemir (Insulin Detemir) 100 Unit/1 Ml Vial 55 Unit SQ QHS 30 Days Metoprolol Tartrate 50 Mg Tablet 50 Mg PO BID 30 Days Clopidogrel (Clopidogrel Bisulfate) 75 Mg Tablet 1 Tab PO DAILY Atorvastatin Calcium 40 Mg Tablet 40 Mg PO QHS 30 Days Reported Metformin Hcl 500 Mg Tablet 500 Mg PO BIDWMEALS Novolog Flexpen (Insulin Aspart) 100 Unit/1 Ml Insuln.pen 10 Unit SQ TIDWMEALS Gabapentin (Gabapentin) 300 Mg Capsule 300 Mg PO TID Eliquis (Apixaban) 5 Mg Tablet 5 Mg PO BID Allergies Allergies: Coded Allergies: No Known Drug Allergies (Unverified , 02/27/17) Physical Exam General: Alert, Oriented X3, Cooperative, No acute distress HEENT: Atraumatic, PERRLA, EOMI, Mucous membr. moist/pink Lungs: Clear to auscultation, Normal air movement Heart: S1S2, RRR, no gallops, no murmurs Extremities: No clubbing, No cyanosis, No edema, Normal pulses, No tenderness/ swelling Skin: No rashes, No breakdown, No significant lesion Neuro: Normal gait, Normal speech, Strength at 5/5 X4 ext, Normal tone, Sensation intact, Cranial nerves 3-12 NL, Reflexes 2+ Psych/Mental Status: Mental status NL, Mood NL Vitals Vitals Vital Signs Date Time Temp Pulse Resp B/P (MAP) Pulse Ox O2 Delivery O2 Flow Rate FiO2 06/06/18 10:51 98.2 80 17 153/70 (97) 97 Room Air 98.2 Labs Labs Laboratory Tests Test 06/06/18 06:04 06/06/18 07:56 06/06/18 12:29 White Blood Count 7.4 x10^3/uL (4.0-11.0) Red Blood Count 4.74 x10^6/uL (4.30-5.70) Hemoglobin 13.9 g/dL (13.0-17.5) Hematocrit 41.1 % (39.0-53.0) Mean Corpuscular Volume 87 fL (79-100) Mean Corpuscular Hemoglobin 29 pg (25-35) Mean Corpuscular Hemoglobin Concent 34 g/dL (31-37) Red Cell Distribution Width 14.3 % (11.5-14.5) Platelet Count 230 x10^3/uL (140-400) Neutrophils (%) (Auto) 63 % (31-73) Lymphocytes (%) (Auto) 23 % (24-48) Monocytes (%) (Auto) 11 % (0-9) Eosinophils (%) (Auto) 2 % (0-3) Basophils (%) (Auto) 1 % (0-3) Neutrophils # (Auto) 4.7 x10^3uL (1.8-7.7) Lymphocytes # (Auto) 1.7 x10^3/uL (1.0-4.8) Monocytes # (Auto) 0.8 x10^3/uL (0.0-1.1) Eosinophils # (Auto) 0.2 x10^3/uL (0.0-0.7) Basophils # (Auto) 0.1 x10^3/uL (0.0-0.2) Prothrombin Time 12.4 SEC (11.7-14.0) Prothromb Time International Ratio 1.0 (0.8-1.1) Sodium Level 135 mmol/L (136-145) Potassium Level 4.3 mmol/L (3.5-5.1) Chloride Level 100 mmol/L (98-107) Carbon Dioxide Level 23 mmol/L (21-32) Anion Gap 12 (6-14) Blood Urea Nitrogen 16 mg/dL (8-26) Creatinine 0.8 mg/dL (0.7-1.3) Estimated GFR (Cockcroft-Gault) 98.0 BUN/Creatinine Ratio 20 (6-20) Glucose Level 254 mg/dL (70-99) Calcium Level 8.5 mg/dL (8.5-10.1) Total Bilirubin 0.5 mg/dL (0.2-1.0) Aspartate Amino Transf (AST/SGOT) 18 U/L (15-37) Alanine Aminotransferase (ALT/SGPT) 34 U/L (16-63) Alkaline Phosphatase 114 U/L (46-116) Troponin I Quantitative 0.047 ng/mL (0.000-0.055) SO-Hlc-W-Type Natriuretic Peptide 766 pg/mL (0-124) Total Protein 6.6 g/dL (6.4-8.2) Albumin 3.3 g/dL (3.4-5.0) Albumin/Globulin Ratio 1.0 (1.0-1.7) Triglycerides Level 573 mg/dL (0-150) Cholesterol Level 151 mg/dL (0-200) LDL Cholesterol, Calculated 16 mg/dL (0-100) VLDL Cholesterol, Calculated 115 mg/dL (0-40) Non-HDL Cholesterol Calculated 131 mg/dL (0-129) HDL Cholesterol 20 mg/dL (40-60) Cholesterol/HDL Ratio 7.6 Glucose (Fingerstick) 211 mg/dL (70-99) 191 mg/dL (70-99) Laboratory Tests Test 06/06/18 06:04 06/06/18 07:56 06/06/18 12:29 White Blood Count 7.4 x10^3/uL (4.0-11.0) Red Blood Count 4.74 x10^6/uL (4.30-5.70) Hemoglobin 13.9 g/dL (13.0-17.5) Hematocrit 41.1 % (39.0-53.0) Mean Corpuscular Volume 87 fL (79-100) Mean Corpuscular Hemoglobin 29 pg (25-35) Mean Corpuscular Hemoglobin Concent 34 g/dL (31-37) Red Cell Distribution Width 14.3 % (11.5-14.5) Platelet Count 230 x10^3/uL (140-400) Neutrophils (%) (Auto) 63 % (31-73) Lymphocytes (%) (Auto) 23 % (24-48) Monocytes (%) (Auto) 11 % (0-9) Eosinophils (%) (Auto) 2 % (0-3) Basophils (%) (Auto) 1 % (0-3) Neutrophils # (Auto) 4.7 x10^3uL (1.8-7.7) Lymphocytes # (Auto) 1.7 x10^3/uL (1.0-4.8) Monocytes # (Auto) 0.8 x10^3/uL (0.0-1.1) Eosinophils # (Auto) 0.2 x10^3/uL (0.0-0.7) Basophils # (Auto) 0.1 x10^3/uL (0.0-0.2) Prothrombin Time 12.4 SEC (11.7-14.0) Prothromb Time International Ratio 1.0 (0.8-1.1) Sodium Level 135 mmol/L (136-145) Potassium Level 4.3 mmol/L (3.5-5.1) Chloride Level 100 mmol/L (98-107) Carbon Dioxide Level 23 mmol/L (21-32) Anion Gap 12 (6-14) Blood Urea Nitrogen 16 mg/dL (8-26) Creatinine 0.8 mg/dL (0.7-1.3) Estimated GFR (Cockcroft-Gault) 98.0 BUN/Creatinine Ratio 20 (6-20) Glucose Level 254 mg/dL (70-99) Calcium Level 8.5 mg/dL (8.5-10.1) Total Bilirubin 0.5 mg/dL (0.2-1.0) Aspartate Amino Transf (AST/SGOT) 18 U/L (15-37) Alanine Aminotransferase (ALT/SGPT) 34 U/L (16-63) Alkaline Phosphatase 114 U/L (46-116) Troponin I Quantitative 0.047 ng/mL (0.000-0.055) UZ-Fcb-E-Type Natriuretic Peptide 766 pg/mL (0-124) Total Protein 6.6 g/dL (6.4-8.2) Albumin 3.3 g/dL (3.4-5.0) Albumin/Globulin Ratio 1.0 (1.0-1.7) Triglycerides Level 573 mg/dL (0-150) Cholesterol Level 151 mg/dL (0-200) LDL Cholesterol, Calculated 16 mg/dL (0-100) VLDL Cholesterol, Calculated 115 mg/dL (0-40) Non-HDL Cholesterol Calculated 131 mg/dL (0-129) HDL Cholesterol 20 mg/dL (40-60) Cholesterol/HDL Ratio 7.6 Glucose (Fingerstick) 211 mg/dL (70-99) 191 mg/dL (70-99) Images Images CXR - 1. Borderline cardiomegaly. 2. No acute abnormality is detected. 2017 Cardiac cathPatient while awaiting single-vessel bypass to the RCA in the setting of recurrent thromboses of previously placed stents had another episode of chest pain this morning with EKG revealing evidence of recurrent stent thrombosis. In this setting he was emergently taken back to the catheterization laboratory after appropriate informed verbal consent. Conclusion 1. 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 Successful balloon angioplasty with religion of CONNIE-3 flow. Recommendations Emergent transfer to coronary artery bypass surgery Case discussed with Dr. Vaughn VTE Prophylaxis Ordered VTE Prophylaxis Devices: Yes VTE Pharmacological Prophylaxi: Yes Assessment/Plan Assessment/Plan A/P: CAD s/p PCI/stents and single-vessel CABG - very high risk considering h/o in- stent thromboses. will d/w cardiology stress testing vs cardiac catheterization. Trend trops PAD - cont ASA, plavix Hypertension - cont home meds Hyperlipidemia - cont high intensity statin PAFIB - cont eliquis, rate control on BB Diabetes 2 - hold metformin in case of contrast, sliding scale basal bolus plus regimen. FEN - ADA diet PPX - eliquis FULL CODE Inpatient for ACS, very high risk SP ESTRADA MD Jun 06, 2018 12:36
[2018-06-06] MEDS: APIXABAN 5 MG TABLET. PO SCH ×2 (13:18→20:06)
[2018-06-06] MEDS: CLOPIDOGREL BISULFATE 75 MG TABLET PO SCH (13:18)
[2018-06-06] MEDS: METOPROLOL TART IMMED RELEASE 50 MG TABLET. PO SCH ×2 (13:19→20:07)
[2018-06-06] MEDS: INSULIN LISPRO 300 UNITS/3 ML INSULN.PEN. SQ SCH ×4 (13:24→17:34)
--- NOTE | 2018-06-06 13:47 | CARD ---
MR#: [id number] Date of Study: 06/06/2018 Ordering Physician: RADHA MORELOS, Referring Physician: Rafa MALDONADO: Cherelle Billy KEO APPROVED REPORT EXAM: Two-dimensional and M-mode echocardiogram with Doppler and color Doppler. Other Information Quality : AverageHR: 87bpm Rhythm : Other INDICATION Chest Pain 2D DIMENSIONS RVDd3.7 (2.9-3.5cm)Left Atrium(2D)4.1 (1.6-4.0cm) IVSd1.4 (0.7-1.1cm)Aortic Root(2D)3.5 (2.0-3.7cm) LVDd5.9 (3.9-5.9cm)LVOT Diameter2.1 (1.8-2.4cm) PWd1.1 (0.7-1.1cm)LVDs4.6 (2.5-4.0cm) FS (%) 22.7 %SV78.6 ml LVEF(%)44.9 (>50%) M-Mode DIMENSIONS Left Atrium(MM)4.17 (2.5-4.0cm)Aortic Root3.61 (2.2-3.7cm) Aortic Valve AoV Peak Krzysztof.140.9cm/sAoV VTI23.2cm AO Peak GR.7.9mmHgLVOT Peak Krzysztof.91.1cm/s AO Mean GR.3mmHgAVA (VMAX)2.24cm2 JADA (VTI)2.30cm2 Mitral Valve MV E Kjzprhlm553.4cm/sMV E Peak Gr.4mmHg MV DECEL [id number] A Jzboktmf31.5cm/s MV E Mean Gr.2mmHgE/A Ratio1.3 MV A Yfjowzlk77la Pulmonary Valve PV Peak Rfqazbvk59.4cm/s Tricuspid Valve TR P. Biatdhuh431ic/sRAP QCNGEOEN5koLm TR Peak Gr.08ozSrIHWG66rsFa LEFT VENTRICLE The Left Ventricle is mildly dilated. There is mild concentric left ventricular hypertrophy. Left cooper tricle systolic function is moderately decreased. EF 40%. There is global hypokinesis of the left cooper tricle with predominant inferior wall hypokinesis. Transmitral Doppler flow pattern is abnormal. RIGHT VENTRICLE The right ventricle is moderately dilated. There is normal right ventricular wall thickness. The righ t ventricular systolic function is normal. ATRIA The left atrium is mildly dilated. The right atrium is mildly dilated. The interatrial septum is inta ct with no evidence for an atrial septal defect or patent foramen ovale as noted on 2-D or Doppler im aging. AORTIC VALVE Not well visualized. Doppler and Color Flow revealed no significant aortic regurgitation. There is no significant aortic valvular stenosis. MITRAL VALVE The mitral valve is mildly thickened but opens well. There is no evidence of mitral valve prolapse. T here is no mitral valve stenosis. Doppler and Color-flow revealed mild mitral regurgitation. TRICUSPID VALVE The tricuspid valve is normal in structure and function. Doppler and Color Flow revealed mild tricusp id regurgitation. There is moderate pulmonary hypertension. The PA pressure was estimated at 45 mmHg. There is no tricuspid valve prolapse or vegetation. There is no tricuspid valve stenosis. PULMONIC VALVE The pulmonic valve is not well visualized. GREAT VESSELS The aortic root is normal in size. The ascending aorta is Mildly dilated at 3.8cm. The IVC is normal in size and collapses >50% with inspiration. PERICARDIAL EFFUSION There is no evidence of significant pericardial effusion. Critical Notification Critical Value: No <Conclusion> Left ventricle systolic function is moderately decreased. EF 40%. There is global hypokinesis of the left ventricle with predominant inferior wall hypokinesis. The right ventricle is moderately dilated. Doppler and Color Flow revealed mild tricuspid regurgitation. There is moderate pulmonary hypertensio n. The PA pressure was estimated at 45 mmHg. The ascending aorta is Mildly dilated at 3.8cm. Signed by : Raulito Lam, Electronically Approved : 06/06/2018 13:46:52
[2018-06-06] MEDS: GABAPENTIN 300 MG CAPSULE. PO SCH ×2 (14:21→20:06)
[2018-06-06 15:08] VITALS: BP 141/76
[2018-06-06] MEDS: LISINOPRIL 10 MG TABLET PO SCH (17:09)
[2018-06-06 19:37] VITALS: BP 164/75
[2018-06-06] MEDS ORDERED: ATORVASTATIN CALCIUM 40 MG TABLET. PO SCH (21:00)
[2018-06-06] MEDS ORDERED: INSULIN GLARGINE 300 UNITS/3 ML INSULN.PEN. SQ SCH (21:00)
[2018-06-06 22:45] VITALS: BP 117/55
[2018-06-07 02:36] VITALS: BP 119/62
[2018-06-07 07:00] VITALS: BP 160/86
[2018-06-07] MEDS: INSULIN LISPRO 300 UNITS/3 ML INSULN.PEN. SQ SCH ×4 (08:00→11:44)
--- NOTE | 2018-06-07 08:15 | PDOC ---
PROGRESS NOTES Chief Complaint Chief Complaint A/P: CAD s/p PCI/stents and single-vessel CABG - very high risk considering h/o in- stent thromboses. will d/w cardiology stress testing vs cardiac catheterization. Trend trops PAD - cont ASA, plavix Hypertension - cont home meds Hyperlipidemia - cont high intensity statin PAFIB - cont eliquis, rate control on BB Diabetes 2 - hold metformin in case of contrast, sliding scale basal bolus plus regimen. FEN - ADA diet PPX - eliquis FULL CODE Inpatient for ACS, very high risk History of Present Illness History of Present Illness Mr Bruno is a 62 yo male, with a history of CAD s/p PCI/stents and CABG, HTN, DM who presented secondary to diaphoresis and lower extremity coolness. Reports symptoms to be very similar to when he had previous MIs, and he has a complicated vascular history with stent occlusions in both his heart (RCA x2) and LLE stent occlusion. Due to his his risk, called for admission to the hospital After initial ED treatment has negative troponins and EKG, evaluated by cardiology. He feels improved. 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 He is asymptomatic currently. Not diaphoretic. Seen mid-stress testing. He is a bit anxious to actually leave the hospital. Has been sleeping quite a bit. Plan: Home if stress testing shows no reversible ischemia. Difficult call if it is abnormal as he has a strong history of recurrently occluded stents, regardless, medical management may ultimately be best for him. Vitals Vitals Vital Signs Date Time Temp Pulse Resp B/P (MAP) Pulse Ox O2 Delivery O2 Flow Rate FiO2 06/07/18 07:00 97.6 74 16 160/86 (110) 97 Room Air 97.6 Physical Exam General: Alert, Oriented X3, Cooperative, No acute distress Heart: Regular rate, Normal S1, Normal S2 Lungs: Clear Abdomen: Soft, No tenderness Extremities: No edema, Other (2+ bilateral DP pulses. Extremities warm to touch ) Skin: No breakdown, No significant lesion Labs LABS Laboratory Tests Test 06/06/18 12:20 06/06/18 12:29 06/06/18 15:40 06/06/18 16:16 Magnesium Level 1.9 mg/dL (1.8-2.4) Troponin I Quantitative 0.055 ng/mL (0.000-0.055) Glucose (Fingerstick) 191 mg/dL (70-99) 194 mg/dL (70-99) 145 mg/dL (70-99) Test 06/06/18 18:45 06/06/18 20:05 06/07/18 00:15 06/07/18 07:16 Troponin I Quantitative 0.041 ng/mL (0.000-0.055) 0.045 ng/mL (0.000-0.055) Glucose (Fingerstick) 238 mg/dL (70-99) 152 mg/dL (70-99) Assessment and Plan Assessmemt and Plan Problems Medical Problems: (1) Angina at rest Status: Acute Comment Review of Relevant I have reviewed the following items rachel (where applicable) has been applied. Labs Laboratory Tests Test 06/06/18 06:04 06/06/18 07:56 06/06/18 12:20 06/06/18 12:29 White Blood Count 7.4 x10^3/uL (4.0-11.0) Red Blood Count 4.74 x10^6/uL (4.30-5.70) Hemoglobin 13.9 g/dL (13.0-17.5) Hematocrit 41.1 % (39.0-53.0) Mean Corpuscular Volume 87 fL (79-100) Mean Corpuscular Hemoglobin 29 pg (25-35) Mean Corpuscular Hemoglobin Concent 34 g/dL (31-37) Red Cell Distribution Width 14.3 % (11.5-14.5) Platelet Count 230 x10^3/uL (140-400) Neutrophils (%) (Auto) 63 % (31-73) Lymphocytes (%) (Auto) 23 % (24-48) Monocytes (%) (Auto) 11 % (0-9) Eosinophils (%) (Auto) 2 % (0-3) Basophils (%) (Auto) 1 % (0-3) Neutrophils # (Auto) 4.7 x10^3uL (1.8-7.7) Lymphocytes # (Auto) 1.7 x10^3/uL (1.0-4.8) Monocytes # (Auto) 0.8 x10^3/uL (0.0-1.1) Eosinophils # (Auto) 0.2 x10^3/uL (0.0-0.7) Basophils # (Auto) 0.1 x10^3/uL (0.0-0.2) Prothrombin Time 12.4 SEC (11.7-14.0) Prothromb Time International Ratio 1.0 (0.8-1.1) Sodium Level 135 mmol/L (136-145) Potassium Level 4.3 mmol/L (3.5-5.1) Chloride Level 100 mmol/L (98-107) Carbon Dioxide Level 23 mmol/L (21-32) Anion Gap 12 (6-14) Blood Urea Nitrogen 16 mg/dL (8-26) Creatinine 0.8 mg/dL (0.7-1.3) Estimated GFR (Cockcroft-Gault) 98.0 BUN/Creatinine Ratio 20 (6-20) Glucose Level 254 mg/dL (70-99) Calcium Level 8.5 mg/dL (8.5-10.1) Total Bilirubin 0.5 mg/dL (0.2-1.0) Aspartate Amino Transf (AST/SGOT) 18 U/L (15-37) Alanine Aminotransferase (ALT/SGPT) 34 U/L (16-63) Alkaline Phosphatase 114 U/L (46-116) Troponin I Quantitative 0.047 ng/mL (0.000-0.055) 0.055 ng/mL (0.000-0.055) JB-Uvj-L-Type Natriuretic Peptide 766 pg/mL (0-124) Total Protein 6.6 g/dL (6.4-8.2) Albumin 3.3 g/dL (3.4-5.0) Albumin/Globulin Ratio 1.0 (1.0-1.7) Triglycerides Level 573 mg/dL (0-150) Cholesterol Level 151 mg/dL (0-200) LDL Cholesterol, Calculated 16 mg/dL (0-100) VLDL Cholesterol, Calculated 115 mg/dL (0-40) Non-HDL Cholesterol Calculated 131 mg/dL (0-129) HDL Cholesterol 20 mg/dL (40-60) Cholesterol/HDL Ratio 7.6 Glucose (Fingerstick) 211 mg/dL (70-99) 191 mg/dL (70-99) Magnesium Level 1.9 mg/dL (1.8-2.4) Test 06/06/18 15:40 06/06/18 16:16 06/06/18 18:45 06/06/18 20:05 Glucose (Fingerstick) 194 mg/dL (70-99) 145 mg/dL (70-99) 238 mg/dL (70-99) Troponin I Quantitative 0.041 ng/mL (0.000-0.055) Test 06/07/18 00:15 06/07/18 07:16 Troponin I Quantitative 0.045 ng/mL (0.000-0.055) Glucose (Fingerstick) 152 mg/dL (70-99) Laboratory Tests Test 06/06/18 12:20 06/06/18 12:29 06/06/18 15:40 06/06/18 16:16 Magnesium Level 1.9 mg/dL (1.8-2.4) Troponin I Quantitative 0.055 ng/mL (0.000-0.055) Glucose (Fingerstick) 191 mg/dL (70-99) 194 mg/dL (70-99) 145 mg/dL (70-99) Test 06/06/18 18:45 06/06/18 20:05 06/07/18 00:15 06/07/18 07:16 Troponin I Quantitative 0.041 ng/mL (0.000-0.055) 0.045 ng/mL (0.000-0.055) Glucose (Fingerstick) 238 mg/dL (70-99) 152 mg/dL (70-99) Medications Current Medications Aspirin (Children'S Aspirin) 324 mg 1X ONCE PO ; Start 06/06/18 at 07:00; Stop 06/06/18 at 07:01; Status DC Ondansetron HCl (Zofran) 4 mg PRN Q8HRS PRN IV NAUSEA/VOMITING; Start 06/06/18 at 07:00; Stop 06/07/18 at 06:59; Status DC Morphine Sulfate (Morphine Sulfate) 2 mg PRN Q2HR PRN IV PAIN; Start 06/06/18 at 07:00; Stop 06/07/18 at 06:59; Status DC Nitroglycerin (Nitrostat) 0.4 mg PRN Q5MIN PRN SL CHEST PAIN; Start 06/06/18 at 07:00; Stop 06/07/18 at 06:59; Status DC Apixaban (Eliquis) 5 mg BID PO Last administered on 06/06/18 20:06; Start at 12:00 Atorvastatin Calcium (Lipitor) 40 mg QHS PO Last administered on 06/06/18at 20: 06; Start 06/06/18 at 21:00 Clopidogrel Bisulfate (Plavix) 75 mg DAILY PO Last administered on 06/06/18 13 :18; Start 06/06/18 at 11:00 Gabapentin (Neurontin) 300 mg TID PO Last administered on 06/06/18 20:06; Start 06/06/18 at 14:00 Metoprolol Tartrate (Lopressor) 50 mg BID PO Last administered on 06/06/18 20: 07; Start 06/06/18 at 12:00 Oxycodone/ Acetaminophen (Percocet 5/325) 1 tab PRN Q4HRS PRN PO PAIN MILD; Start 06/06/18 at 11:00 Insulin Human Lispro (HumaLOG) 10 units TIDWMEALS SQ Last administered on at 17:34; Start 06/06/18 at 12:00 Insulin Glargine (Lantus) 55 units QHS SQ Last administered on 06/06/18at 20:12 ; Start 06/06/18 at 21:00 Insulin Human Lispro (HumaLOG) 0-7 UNITS TIDWMEALS SQ Last administered on 06/06at 13:25; Start 06/06/18 at 12:00 Dextrose (Dextrose 50%-Water Syringe) 12.5 gm PRN Q15MIN PRN IV SEE COMMENTS; Start 06/06/18 at 11:15 Info (Anti-Coagulation Monitoring By Pharmacy) 1 each PRN DAILY PRN MC SEE COMMENTS; Start 06/06/18 at 11:15 Lisinopril (Prinivil) 10 mg DAILY PO Last administered on 06/06/18at 17:09; Start 06/06/18 at 16:45 Active Scripts Active Oxycodone-Acetaminophen 5-325 (Oxycodone Hcl/Acetaminophen) 1 Each Tablet 1 Tab PO PRN Q4HRS PRN Levemir (Insulin Detemir) 100 Unit/1 Ml Vial 55 Unit SQ QHS 30 Days Metoprolol Tartrate 50 Mg Tablet 50 Mg PO BID 30 Days Clopidogrel (Clopidogrel Bisulfate) 75 Mg Tablet 1 Tab PO DAILY Atorvastatin Calcium 40 Mg Tablet 40 Mg PO QHS 30 Days Reported Metformin Hcl 500 Mg Tablet 500 Mg PO BIDWMEALS Novolog Flexpen (Insulin Aspart) 100 Unit/1 Ml Insuln.pen 10 Unit SQ TIDWMEALS Gabapentin (Gabapentin) 300 Mg Capsule 300 Mg PO TID Eliquis (Apixaban) 5 Mg Tablet 5 Mg PO BID Vitals/I & O Vital Sign - Last 24 Hours 06/06/18 06/06/18 06/06/18 06/06/18 10:06 10:51 13:19 15:08 Temp 98.2 98.0 98.2 98.0 Pulse 80 81 75 Resp 17 16 B/P (MAP) 153/70 (97) 166/81 141/76 (97) Pulse Ox 97 98 O2 Delivery Room Air Room Air Room Air 06/06/18 06/06/18 06/06/18 06/06/18 17:09 19:37 20:00 20:07 Temp 97.8 97.8 Pulse 72 80 80 Resp 16 B/P (MAP) 111/77 164/75 (104) 164/75 Pulse Ox 99 O2 Delivery Room Air Room Air 06/06/18 06/07/18 06/07/18 22:45 02:36 07:00 Temp 97.8 98.0 97.6 97.8 98.0 97.6 Pulse 72 74 74 Resp 18 20 16 B/P (MAP) 117/55 (75) 119/62 (81) 160/86 (110) Pulse Ox 98 97 97 O2 Delivery Room Air Room Air Room Air Intake and Output 06/06/18 06/06/18 06/07/18 15:00 23:00 07:00 Intake Total 520 ml Output Total 350 ml 800 ml Balance -350 ml 520 ml -800 ml Images ECHO - Left ventricle systolic function is moderately decreased. EF 40%. There is global hypokinesis of the left ventricle with predominant inferior wall hypokinesis. The right ventricle is moderately dilated. Doppler and Color Flow revealed mild tricuspid regurgitation. There is moderate pulmonary hypertension. The PA pressure was estimated at 45 mmHg. The ascending aorta is Mildly dilated at 3.8cm. SP ESTRADA MD Jun 07, 2018 08:15
[2018-06-07] MEDS: APIXABAN 5 MG TABLET. PO SCH (09:00)
[2018-06-07] MEDS ORDERED: REGADENOSON 0.4 MG/5 ML DISP.SYRIN. IV ONE (09:30)
--- NOTE | 2018-06-07 09:36 | PDOC ---
CARDIO Progress Notes Date and Time Date of Service 06/07/18 Time of Evaluation 0930 Subjective Subjective: No Chest Pain, No shortness of breath Vitals Vitals Vital Signs Date Time Temp Pulse Resp B/P (MAP) Pulse Ox O2 Delivery O2 Flow Rate FiO2 06/07/18 08:00 Room Air 06/07/18 07:00 97.6 74 16 160/86 (110) 97 97.6 Weight Weight [ ] Input and Output Intake and Output Intake and Output 06/07/18 06:59 Intake Total 520 ml Output Total 1150 ml Balance -630 ml Intake Oral 520 ml Output Urine Total 1150 ml # Voids 3 Laboratory Labs Laboratory Tests Test 06/06/18 12:20 06/06/18 12:29 06/06/18 15:40 06/06/18 16:16 Magnesium Level 1.9 mg/dL (1.8-2.4) Troponin I Quantitative 0.055 ng/mL (0.000-0.055) Glucose (Fingerstick) 191 mg/dL (70-99) 194 mg/dL (70-99) 145 mg/dL (70-99) Test 06/06/18 18:45 06/06/18 20:05 06/07/18 00:15 06/07/18 07:16 Troponin I Quantitative 0.041 ng/mL (0.000-0.055) 0.045 ng/mL (0.000-0.055) Glucose (Fingerstick) 238 mg/dL (70-99) 152 mg/dL (70-99) Physical Exam HEENT: Neck Supple W Full Motion Chest: Symmetric Heart: S1S2, RRR, no gallops, no murmurs Abdomen: Soft N/T Extremities: No Edema Neurology: alert, oriented, follow commands Assessment Assessment 1. CAD s/p PCI/stents and single-vessel CABG. MPI showed a small infarct involving the basal inferior and inferolateral hawk, but no significant ischemia. 3. PAD s/p bilateral LE intervention/bypass. LE duplex with stenosis of right mid SFA patent vein graft and the left leg. Will medically manage given history of multiple previous thrombotic events and lack of claudication symptoms or vickie ischemia. 3. Chronic systolic HF with ICM; LVEF 40%. Compensated 4. Hypertension; mildly elevated 5. Hyperlipidemia; statin 7. Diabetes,II Recommendations Continue Eliquis, Plavix, BB, ACEi, statin May discharge from a CV standpoint and f/u in our office with Dr. Lam as scheduled. RADHA MORELOS APRN Jun 07, 2018 09:36
[2018-06-07 10:42] VITALS: BP 146/91
--- NOTE | 2018-06-07 11:14 | NUR ---
Carl held per physician order for possible cath procedure.
[2018-06-07] MEDS: GABAPENTIN 300 MG CAPSULE. PO SCH ×2 (11:20→14:29)
[2018-06-07] MEDS: METOPROLOL TART IMMED RELEASE 50 MG TABLET. PO SCH (11:21)
[2018-06-07] MEDS: CLOPIDOGREL BISULFATE 75 MG TABLET PO SCH (11:21)
[2018-06-07] MEDS: LISINOPRIL 10 MG TABLET PO SCH (11:21)
--- NOTE | 2018-06-07 12:58 | RAD ---
MR#: [id number] Date of Study: 06/07/2018 Ordering Physician: RADHA MORELOS, Referring Physician: DEBORAH MALDONADO Tech: RT Ester (R) (N) APPROVED REPORT Test Type: Pharmacological Stress Nurse/Tech: Daly Arreola RN Test Indications: diaphoresis, CAD Cardiac History: CABG, HTN, x-smoker, DM Medications: See Electronic Medical Record Medical History: See Electronic Medical Record Resting ECG: SR PAC, PVC Resting Heart Rate: 76 bpm Resting Blood Pressure: 155/70mmHg Pretest Chest Pain: None Nurse/Tech Notes Lungs CTA, S1S2 Consent: The procedure was explained to the patient in lay terms. Informed consent was witnessed. Anders eout was entered into [employer]. History and Stress Test performed by daly Arreola RN Pharm. Details Pharmacologic stress testing was performed using 0.4mg per 5ml of regadenoson given intravenously ove r 7-10 seconds. Stress Symptoms No chest pain or symptoms. POST EXERCISE Reason for Termination: Infusion complete Max HR: 103 bpm Max Blood Pressure: 155/71mmHg Blood Pressure response to exercise: Normal blood pressure response during stress. Heart Rate response to exercise: normal response Chest Pain: No. Arrhythmia: Yes. see above baseline ST Change: No. INTERPRETATION Stress EKG Conclusion: Baseline EKG showed sinus rhythm, PVC's with RBBB. No ischemic changes at pea k stress. No arrhythmias. Imaging Protocol IMAGE PROTOCOL: Rest Tc-99m/stress Tc-99m 1 day Rest: Stress: Viability: Radiopharm.Tc99m [id number] Sestamibi Dose10.5mCi 33mCi Duration 13min. 13min. Img Date 06/07/2018 06/07/2018 Inj-Img [id number]. 60min. Rest Admin Site:IV - Left ForearmAdministrator:RT Ester (R)(N) Stress Admin Site: IV - Left ForearmAdministrator: PANCHO Owen STRESS DATA End Diast. Vol.202.0mlLVEDV index BSA92.0ml End Syst. Vol.114.0mlLVESV index BSA52.0ml Myocardial Rbyn370.0gEject. Mgzitglm24.0% Stress Scores Regional WT3.00Summed WT34.00 Regional WM0.00Summed WM17.00 LV Perfusion Scintigraphic images showed small fixed defect involving the basal inferior and inferolateral hawk c onsistent with previous myocardial infarction without any significant reversibility. Wall Motion Basal inferior wall hypokinesis. Abnormal septal motion probably from CABG. Ejection fraction is calc ulated at 44%. LV Perf. Quant 17 Seg. SSS6.00 17 Seg. SRS4.00 17 Seg. SDS2.00 Stress Defect Extent (% LAD)0.00Rest Defect Extent (% LAD)0.00Rev. Defect Extent (% LAD)0.00 Stress Defect Extent (% LCX) 12.50Rest Defect Extent (% LCX)5.00Rev. Defect Extent (% LCX)3.80 Stress Defect Extent (% RCA)26.70Rest Defect Extent (% RCA)23.30Rev. Defect Extent (% RCA)0.00 Stress Defect Extent (% JOHN)9.80Rest Defect Extent (% JOHN)7.80Rev. Defect Extent (% JOHN)1.10 Conclusion 1. Regadenoson cardioisotope stress test showed small infarct involving the basal inferior and infero lateral hawk without any significant ischemia. 2. Basal inferior wall hypokinesis. Abnormal septal motion probably from CABG. Ejection fraction is c alculated at 44%. 3. Low risk for cardiac events. Signed by : Lance Brantley, Electronically Approved : 06/07/2018 12:57:39
--- NOTE | 2018-06-07 13:49 | RAD ---
MR#: [id number] Date of Study: 06/07/2018 Ordering Physician: RADHA MORELOS, Referring Physician: Rafa MALDONADO: Yvrose Brandon BS, RTR, RDMS, RVT APPROVED REPORT Patient Location: IN-PATIENT Indications PAD Risk Factors History of Lower Extremity PAD: Bilaterally Hypertension Diabetes Surgery/Intervention Bypass Graft 1 : VELOCITY AND DOPPLER WAVEFORM ANALYSIS RIGHT cm/secWaveformSeverity LEFT cm/secWaveform Severity pCFA 124.8BiphasicpCFA 188.4Monophasic Prof Fem Art. 229.7TriphasicProf Fem Art. 123.4Monophasic Fem Art Prox. 79.6MonophasicFem Art Prox. Occluded (100%) Fem Art Mid. 447.3MonophasicSevere > 75%Fem Art Mid. Occluded (100%) Fem Art Dist. 483.6MonophasicSevere > 75%Fem Art Dist. Occluded (100%) Pop Art(Fossa) 42.2MonophasicPop Art(AK) 62.5Monophasic SELVAGE MACHINE OPERATOR Prox. 30.1MonophasicPTA Prox. 62.9Monophasic SELVAGE MACHINE OPERATOR Dist. 49.7MonophasicPTA Dist. Per Art Mid. Per Art Mid. 27.5Monophasic Per Art Dist.47.4MonophasicPer Art Dist.66.5Monophasic ABUNDIO Prox. ABUNDIO Prox. 56.4Monophasic DPA 82.9MonophasicDPA BYPASS GRAFT ANALYSIS RIGHT cm/secWaveform SeverityLEFT cm/secWaveformSeverity Proximal Proximal 88.3Monophasic Monophasic Mid Mid 224.1Monophasic Distal Distal 147.5Monophasic Dist. Anastomosis Dist. Anastomosis 143.2Monophasic Findings On the right grayscale images of the arterial systems of the lower extremity demonstrate mild to mode rate diffuse atherosclerotic plaque. There is a greater than 75% stenosis involving the right mid SFA . There is three-vessel runoff below the knee in a monophasic wave pattern with diminished flow consi stent with more proximal SFA disease. On the left the SFA is occluded. Spectral waveforms and color Doppler in the femoral-popliteal bypass graft demonstrate approximately a 50% stenosis. There is three-vessel runoff below the knee but dimi nished waveforms in the peroneal artery is noted. Critical Notification Critical Value: No <Conclusion> 1. Greater than 75% stenosis involving the right mid SFA and patent vein graft and the left leg. 2. Due to patient's history of multiple prior thromboses and lack of any significant critical limb is chemia or leg pain would defer further invasive management for continued aggressive medical therapy. Signed by : Raulito Lam, Electronically Approved : 06/07/2018 13:48:22
[2018-06-07 15:12] VITALS: BP 134/71
[2018-06-07] MEDS ORDERED: LISI10TA2 PO (16:26)
--- NOTE | 2018-06-07 16:34 | PDOC3 ---
Discharge Summary Visit Information Date of Admission: Jun 06, 2018 Date of Discharge: Jun 07, 2018 Admitting Diagnosis: Chest pain, Cardiomyopathy Final Diagnosis Problems Medical Problems: (1) Angina at rest Status: Acute Brief Hospital Course Allergies Allergies Coded Allergies Type Severity Reaction Last Updated Verified No Known Drug Allergies 02/27/17 No Vital Signs Vital Signs Date Time Temp Pulse Resp B/P (MAP) Pulse Ox O2 Delivery O2 Flow Rate FiO2 06/07/18 15:12 98.4 67 16 134/71 (92) 100 Room Air 98.4 Lab Results Laboratory Tests Test 06/06/18 06:04 06/06/18 07:56 06/06/18 12:20 06/06/18 12:29 White Blood Count 7.4 x10^3/uL (4.0-11.0) Red Blood Count 4.74 x10^6/uL (4.30-5.70) Hemoglobin 13.9 g/dL (13.0-17.5) Hematocrit 41.1 % (39.0-53.0) Mean Corpuscular Volume 87 fL (79-100) Mean Corpuscular Hemoglobin 29 pg (25-35) Mean Corpuscular Hemoglobin Concent 34 g/dL (31-37) Red Cell Distribution Width 14.3 % (11.5-14.5) Platelet Count 230 x10^3/uL (140-400) Neutrophils (%) (Auto) 63 % (31-73) Lymphocytes (%) (Auto) 23 % (24-48) Monocytes (%) (Auto) 11 % (0-9) Eosinophils (%) (Auto) 2 % (0-3) Basophils (%) (Auto) 1 % (0-3) Neutrophils # (Auto) 4.7 x10^3uL (1.8-7.7) Lymphocytes # (Auto) 1.7 x10^3/uL (1.0-4.8) Monocytes # (Auto) 0.8 x10^3/uL (0.0-1.1) Eosinophils # (Auto) 0.2 x10^3/uL (0.0-0.7) Basophils # (Auto) 0.1 x10^3/uL (0.0-0.2) Prothrombin Time 12.4 SEC (11.7-14.0) Prothromb Time International Ratio 1.0 (0.8-1.1) Sodium Level 135 mmol/L (136-145) Potassium Level 4.3 mmol/L (3.5-5.1) Chloride Level 100 mmol/L (98-107) Carbon Dioxide Level 23 mmol/L (21-32) Anion Gap 12 (6-14) Blood Urea Nitrogen 16 mg/dL (8-26) Creatinine 0.8 mg/dL (0.7-1.3) Estimated GFR (Cockcroft-Gault) 98.0 BUN/Creatinine Ratio 20 (6-20) Glucose Level 254 mg/dL (70-99) Calcium Level 8.5 mg/dL (8.5-10.1) Total Bilirubin 0.5 mg/dL (0.2-1.0) Aspartate Amino Transf (AST/SGOT) 18 U/L (15-37) Alanine Aminotransferase (ALT/SGPT) 34 U/L (16-63) Alkaline Phosphatase 114 U/L (46-116) Troponin I Quantitative 0.047 ng/mL (0.000-0.055) 0.055 ng/mL (0.000-0.055) IG-Zve-W-Type Natriuretic Peptide 766 pg/mL (0-124) Total Protein 6.6 g/dL (6.4-8.2) Albumin 3.3 g/dL (3.4-5.0) Albumin/Globulin Ratio 1.0 (1.0-1.7) Triglycerides Level 573 mg/dL (0-150) Cholesterol Level 151 mg/dL (0-200) LDL Cholesterol, Calculated 16 mg/dL (0-100) VLDL Cholesterol, Calculated 115 mg/dL (0-40) Non-HDL Cholesterol Calculated 131 mg/dL (0-129) HDL Cholesterol 20 mg/dL (40-60) Cholesterol/HDL Ratio 7.6 Glucose (Fingerstick) 211 mg/dL (70-99) 191 mg/dL (70-99) Magnesium Level 1.9 mg/dL (1.8-2.4) Test 06/06/18 15:40 06/06/18 16:16 06/06/18 18:45 06/06/18 20:05 Glucose (Fingerstick) 194 mg/dL (70-99) 145 mg/dL (70-99) 238 mg/dL (70-99) Troponin I Quantitative 0.041 ng/mL (0.000-0.055) Test 06/07/18 00:15 06/07/18 07:16 06/07/18 11:25 Troponin I Quantitative 0.045 ng/mL (0.000-0.055) Glucose (Fingerstick) 152 mg/dL (70-99) 166 mg/dL (70-99) Laboratory Tests Test 06/06/18 18:45 06/06/18 20:05 06/07/18 00:15 06/07/18 07:16 Troponin I Quantitative 0.041 ng/mL (0.000-0.055) 0.045 ng/mL (0.000-0.055) Glucose (Fingerstick) 238 mg/dL (70-99) 152 mg/dL (70-99) Test 06/07/18 11:25 Glucose (Fingerstick) 166 mg/dL (70-99) Brief Hospital Course Mr Bruno is a 62 yo male, with a history of CAD s/p PCI/stents and CABG, HTN, DM who presented secondary to diaphoresis and lower extremity coolness. Reports symptoms to be very similar to when he had previous MIs, and he has a complicated vascular history with stent occlusions in both his heart (RCA x2) and LLE stent occlusion. Due to his his risk, called for admission to the hospital After initial ED treatment has negative troponins and EKG, evaluated by cardiology. He feels improved. 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 He is asymptomatic currently. Not diaphoretic. Seen mid-stress testing. He is a bit anxious to actually leave the hospital. Has been sleeping quite a bit. MPI stress testing 1. Regadenoson cardioisotope stress test showed small infarct involving the basal inferior and inferolateral hawk without any significant ischemia. 2. Basal inferior wall hypokinesis. Abnormal septal motion probably from CABG. Ejection fraction is calculated at 44%. 3. Low risk for cardiac events. Based on his reduced EF, likely had a mild diastolic CHF exacerbation, started on lisinopril. Had arterial LE dopplers 1. Greater than 75% stenosis involving the right mid SFA and patent vein graft and the left leg. 2. Due to patient's history of multiple prior thromboses and lack of any significant critical limb ischemia or leg pain would defer further invasive management for continued aggressive medical therapy. A/P: CAD s/p PCI/stents and single-vessel CABG - very high risk considering h/o in- stent thromboses. will d/w cardiology stress testing vs cardiac catheterization. Trended trops, negative MPI PAD - cont ASA, plavix. R SFA with 75% occlusion and patent left Hypertension - cont home meds, added lisinopril Hyperlipidemia - cont high intensity statin PAFIB - cont eliquis, rate control on BB Diabetes 2 - hold metformin in case of contrast, sliding scale basal bolus plus regimen. Add lisinopril for renal protection Greater than 30 minutes spent on discharge. Discharge Information Condition at Discharge: Improved Follow Up: Weeks (2) Disposition/Orders: D/C to Home Scheduled Apixaban (Eliquis) 5 Mg Tablet, 5 MG PO BID, (Reported) Entered as Reported by: URVASHI VANCE on 10/19/17 1311 Last Action: Continued on 06/06/18 110 by TIM HUMPHREY RN Atorvastatin Calcium (Atorvastatin Calcium) 40 Mg Tablet, 40 MG PO QHS for 30 Days, #30 Prescribed by: JACINTO LOVE MD on 08/07/16 1121 Last Action: Continued on 06/06/18 110 by TIM HUMPHREY RN Clopidogrel Bisulfate (Clopidogrel) 75 Mg Tablet, 1 TAB PO DAILY, #90 Ref 1 Prescribed by: CHUY FLEMING on 10/12/16 1610 Last Action: Continued on 06/06/18 110 by TIM HUMPHREY RN Gabapentin (Gabapentin ) 300 Mg Capsule, 300 MG PO TID for NEUROGENIC PAIN, ( Reported) Entered as Reported by: TIM HUMPHREY RN on 06/06/18 0800 Last Taken: 300 on Unknown Date & Time Last Action: Continued on 06/06/181101 by TIM HUMPHREY RN Insulin Aspart (Novolog Flexpen) 100 Unit/1 Ml Insuln.pen, 10 UNIT SQ TIDWMEALS for , (Reported) Entered as Reported by: TIM HUMPHREY RN on 06/06/18 0802 Last Taken: 10 on Unknown Date & Time Last Action: Converted on 06/06/181101 by TIM HUMPHREY RN Insulin Detemir (Levemir) 100 Unit/1 Ml Vial, 55 UNIT SQ QHS for 30 Days Prescribed by: AYE VIRK on 03/05/17 1623 Last Action: Converted on 06/06/181101 by TIM HUMPHREY RN Lisinopril (Lisinopril) 10 Mg Tablet, 10 MG PO DAILY for HTN for 30 Days, #30 Ref 2 Prescribed by: SP ESTRADA MD on 06/07/186 Metformin Hcl (Metformin Hcl) 500 Mg Tablet, 500 MG PO BIDWMEALS for ANTI- DIABETIC, Ref 0 (Reported) Entered as Reported by: TIM HUMPHREY RN on 06/06/18802 Last Taken: 500 on Unknown Date & Time Last Action: New Order on 06/06/18802 by TIM HUMPHREY RN Metoprolol Tartrate (Metoprolol Tartrate) 50 Mg Tablet, 50 MG PO BID for 30 Days , #60 Prescribed by: AGNIESZKA GAYLE MD on 11/29/16 1050 Last Action: Continued on 06/06/181101 by TIM HUMPHREY RN Scheduled PRN Oxycodone Hcl/Acetaminophen (Oxycodone-Acetaminophen 5-325) 1 Each Tablet, 1 TAB PO PRN Q4HRS PRN for PAIN MILD, #30 Prescribed by: ADAMS DUONG on 10/23/17 1340 Last Action: Continued on 06/06/181101 by ALLYSON REHMAN CHRISTOPHER S MD Jun 07, 2018 16:33
--- NOTE | 2018-06-07 17:00 | NUR ---
Discharge Note: ELYSSA CONTRERAS [address] Discharge instructions and discharge home medications reviewed with Patient and a copy given. All questions have been answered and understanding verbalized. Follow up appointment information and new prescription given to patient. The following instructions and handouts were given: Medication management, hypercholesterolemia Discontinued lines and drains: Peripheral IV intact. Patient discharged to Home or Self Care with Friend via Ambulated
== END 2018-06-07 17:00 | disposition home or self-care (01) | DRG 293 ==
LOC: ER 05:44 → 2 SOUTH 06:55
PROVIDERS: ADMIT Internal Medicine; ATTEND Internal Medicine
DX: I11.0 Hypertensive heart disease with heart failure (principal); E11.51 Type 2 diabetes mellitus with diabetic peripheral angiopathy without gangrene; I50.43 Acute on chronic combined systolic (congestive) and diastolic (congestive) heart failure; I42.9 Cardiomyopathy, unspecified; E78.5 Hyperlipidemia, unspecified; F41.9 Anxiety disorder, unspecified; M19.90 Unspecified osteoarthritis, unspecified site; I25.118 Atherosclerotic heart disease of native coronary artery with other forms of angina pectoris; I25.2 Old myocardial infarction; Z82.0 Family history of epilepsy and other diseases of the nervous system; Z82.49 Family history of ischemic heart disease and other diseases of the circulatory system; Z95.1 Presence of aortocoronary bypass graft; Z95.5 Presence of coronary angioplasty implant and graft; Z95.820 Peripheral vascular angioplasty status with implants and grafts
CPT/HCPCS: 36415; 71045; 78452; 80053; 80061; 82962; 83735; 83880; 84484; 85025; 85610; 93005; 93017; 93306; 93925; A9500; J1815; J2785; 99285-25

== ENCOUNTER → 2020-04-26 | Outpatient (CLI) | payer MEDICARE ==
[2020-02-18 15:00] VITALS: BP 150/68
[~2020-04-26] MED LIST changes: -AMIO200T4 PO; +AMIO200T6 PO; -ASPI-612 PO; +ASPI-886 PO; +BENZ100C PO; -ENAL10TA PO; +ENAL10TA11 PO; +GABA300C18 PO; +LISI10TA16 PO; +METF500T16 PO; +OSEL75CA PO
--- NOTE | 2020-04-27 08:42 | RAD ---
MR#: [id number] Date of Study: 04/26/2020 Ordering Physician: JEFFREY PENA, Referring Physician: JEFFREY PENA, Tech: Per Miranda MBA, RDMS, RVT, RDCS, RTR APPROVED REPORT Patient Location: OUT-PATIENT Indications PAD VELOCITY AND DOPPLER WAVEFORM ANALYSIS RIGHT cm/secWaveformSeverity LEFT cm/secWaveform Severity dCFA 43.0MonophasicdCFA 120.0Monophasic Prof Fem Art. 162.0MonophasicProf Fem Art. 62.0Monophasic Fem Art Prox. OccludedFem Art Prox. Occluded Fem Art Mid. OccludedFem Art Mid. Occluded Fem Art Dist. 141.0MonophasicFem Art Dist. Occluded Pop Art(Fossa) 28.0MonophasicPop Art(AK) Occluded GRINDER SET UP OPERATOR Prox. 30.0MonophasicPTA Prox. Monophasic GRINDER SET UP OPERATOR Dist. 32.0MonophasicPTA Dist. Monophasic ABUNDIO Prox. 50.0MonophasicATA Prox. Monophasic DPA 57MonophasicDPA Monophasic BYPASS GRAFT ANALYSIS RIGHT cm/secWaveform SeverityLEFT cm/secWaveformSeverity Prox. Anastomosis Prox. Anastomosis 130.0Biphasic Mid Mid 153.0Biphasic Distal Distal 140.0Biphasic Dist. Anastomosis Dist. Anastomosis 69.0Triphasic Findings Grayscale images of the bilateral lower extremity arterial vessels reveals diffuse severe atheroscler osis. On the right side there are monophasic waveforms extending from the common femoral artery to the belo w-knee vessels. The proximal and mid SFA is likely occluded. There is reconstitution at the level o f the distal SFA with severely diminished waveforms below the knee. There is two-vessel runoff. On the left side normal triphasic waveforms are noted in the common femoral artery. The proximal SFA is occluded and is reconstituted distally at the popliteal artery via a saphenous vein bypass graft which appears to be patent without any anastomotic stenosis. Below the knee there is two-vessel runo ff with a robust posterior tibial and anterior tibial artery velocities. The peroneal artery again i s not visualized. Critical Notification Critical Value: No <Conclusion> 1. Severe right lower extremity arterial disease with diminished velocities below the knee 2. Patent left SFA bypass with robust two-vessel runoff on the left side. Signed by : Jeffrey Pena, Electronically Approved : 04/27/2020 08:42:12
--- NOTE | 2020-04-27 08:44 | RAD ---
MR#: [id number] Date of Study: 04/26/2020 Ordering Physician: JEFFREY PENA, Referring Physician: JEFFREY PENA, Tech: Per Miranda MBA, RDMS, RVT, RDCS, RTR APPROVED REPORT Patient Location: OUT-PATIENT Indications PAD Findings Right arm: 134, right ankle PT 87, DP 85 Left arm: 131, left ankle PT 138, DP 134 Right ELLY 0.65, left ELLY 1.0 Critical Notification Critical Value: No <Conclusion> 1. Severely diminished right-sided ELLY. Signed by : Jeffrey Pena, Electronically Approved : 04/27/2020 08:44:03
== END ==
LOC: US 15:20
PROVIDERS: ATTEND Internal Medicine Cardiovascular Disease
DX: I77.89 Other specified disorders of arteries and arterioles (principal); I73.9 Peripheral vascular disease, unspecified
CPT/HCPCS: 93922; 93925

== ENCOUNTER 2020-11-12 14:00 | Emergency (ER) | payer MEDICARE ==
[~2020-11-12] VITALS: Ht 185.4 cm; Wt 92.7 kg
[~2020-11-12 14:00] MED LIST changes: +DOXY100C3 PO; +FURO-68 PO; +LISI20TA18 PO; +METO-247 PO; +gentamicin TP
[2020-11-12 14:26] VITALS: BP 137/84
--- NOTE | 2020-11-12 14:27 | PHYS DOC ---
Past Medical History Past Medical History: CAD, Diabetes-Type II, DVT, High Cholesterol, Hyper tension, NC Additional Past Medical Histor: NEUROPATHY Past Surgical History: Coronary Bypass Surgery, Other Additional Past Surgical Histo: FEMORAL BYPASS, STENT Smoking Status: Former Smoker Alcohol Use: Rarely Drug Use: None General Adult EDM: Chief Complaint: ABDOMINAL PAIN HPI: HPI: Patient is a 65 year old poorly controlled diabetic male who presents with 1 day history of diarrhea. Patient lives alone at home, but is visited by her home care nurse. She recommended that he come to the ER due to multiple episodes of diarrhea and him appearing dehydrated to her, per patient. Patient denies abdominal pain, nausea, vomiting. He states his diarrhea is watery and he has episodes approximately every 3 minutes. Patient reports his blood sugar this morning was 503, but he did not take any insulin. Patient reports using methamphetamines, with his last use reportedly being 1-1/2 to 2 months ago. Patient has bilateral lower extremity wounds, which have been checked here at [facility] recently. Patient has no other complaints at this [facility]. Review of Systems: Review of Systems: Constitutional: Denies fever or chills. HEENT: Denies vision changes, nasal congestion or sore throat. Respiratory: Denies cough or shortness of breath. Cardiovascular: Denies chest pain or edema. GI: See HPI : Denies dysuria, hematuria. Musculoskeletal: Denies back pain or joint pain. Integument: Denies rash, erythema, abrasion, abscess. Neurologic: Denies headache, focal weakness or sensory changes. Endocrine: Denies polyuria or polydipsia. Heart Score: C/O Chest Pain: No Allergies: Allergies: Allergies Coded Allergies Type Severity Reaction Last Updated Verified No Known Drug Allergies 02/27/17 No Physical Exam: PE: Constitutional: Well developed, well nourished, no acute distress, non-toxic appearance. [] HENT: Normocephalic, atraumatic, bilateral external ears normal, oropharynx abelardo st, no oral exudates, nose normal. [] Eyes: PERRLA, EOMI, conjunctiva normal, no discharge. [] Neck: Normal range of motion, no tenderness, supple, no stridor. [] Cardiovascular:Heart rate regular rhythm, no murmur [] Lungs & Thorax: Bilateral breath sounds clear to auscultation [] Abdomen: Bowel sounds normal, soft, no tenderness, no masses, no pulsatile masses. [] Skin: Warm, dry, no erythema, no rash. [] Back: No tenderness, no CVA tenderness. [] Extremities: No tenderness, no cyanosis, no clubbing, ROM intact, no edema. [] Neurologic: Alert and oriented X 3, normal motor function, normal sensory function, no focal deficits noted. [] Psychologic: Affect normal, judgement normal, mood normal. [] Course & Med Decision Making: Course & Med Decision Making Pertinent Labs and Imaging studies reviewed. (See chart for details) Patient chief complaint is diarrhea with possible dehydration. Blood work will be drawn and urinalysis will be performed to assess hydration status. Patient given 500 lactated Ringer's. On reevaluation, patient states he is feeling better and has had no episodes of diarrhea since presentation to the emergency department. He states that he is ready to go home. Patient was counseled both by his nurse and myself on blood glucose control and cessation of methamphetamine. Dragon Disclaimer: Frida Disclaimer: This electronic medical record was generated, in whole or in part, using a voice recognition dictation system. Departure Departure Impression: Primary Impression: Diarrhea Qualified Codes: R19.7 - Diarrhea, unspecified Additional Impression: Methamphetamine use Disposition: HOME / SELF CARE / HOMELESS Condition: STABLE Referrals: YOJANA PIPER MD (PCP) Patient Instructions: Diarrhea, Yowa-tc-Wocg, Diet for Diarrhea, Adult Additional Instructions: Please eat bland foods such as bananas, rice, applesauce, and toast/crackers until your abdominal discomfort and diarrhea improved. You may return to your normal diet as tolerated. As discussed, it is extremely important to control your blood glucose. Additionally, it is highly advised that you cease using recreational drugs including methamphetamine. Return to the emergency department if your symptoms worsen, or you develop fever or bloody stool. REJI BANSAL Nov 12, 2020 14:27
[2020-11-12] MEDS ORDERED: IV RINGERS,LACTATED 500ML 500 ML IV ONE (14:30)
[2020-11-12 14:40] LABS: BILIRUBIN,URINE NEGATIVE (NEG); CLARITY,URINE CLEAR; COLOR,URINE YELLOW; NITRITE,URINE NEGATIVE (NEG); PROTEIN,URINE NEGATIVE (NEG-TRACE)
[2020-11-12 14:46] LABS: AMPHETAMINE/METHAMPHETAMINE POS (NEG); BARBITURATES NEG (NEG); BENZODIAZEPINES NEG (NEG); CANNABINOIDS NEG (NEG); COCAINE NEG (NEG); METHADONE NEG (NEG); OPIATES NEG (NEG); PHENCYCLIDINE NEG (NEG)
[2020-11-12 14:49] LABS: BASO # 0.1 x10^3/uL (0.0-0.2); BASO % 2 % (0-3); EOS # 0.1 x10^3/uL (0.0-0.7); EOS % 1 % (0-3); HEMATOCRIT 31.1 % (39.0-53.0); HEMOGLOBIN 9.4 g/dL (13.0-17.5); LYMPH # 1.3 x10^3/uL (1.0-4.8); LYMPH % 17 % (24-48); MEAN CORPUSCULAR HEMOGLOBIN 20 pg (25-35); MEAN CORPUSCULAR HGB CONC 30 g/dL (31-37); MEAN CORPUSCULAR VOLUME 67 fL (79-100); MONO # 1.1 x10^3/uL (0.0-1.1); MONO % 15 % (0-9); NEUT # 4.9 x10^3/uL (1.8-7.7); NEUT % 65 % (31-73); PLATELET COUNT 332 x10^3/uL (140-400); RED BLOOD COUNT 4.67 x10^6/uL (4.30-5.70); WHITE BLOOD COUNT 7.6 x10^3/uL (4.0-11.0)
[2020-11-12 14:55] LABS: BACTERIA,URINE FEW /HPF (0-FEW); RBC,URINE 0 /HPF (0-2); WBC,URINE OCC /HPF (0-4)
[2020-11-12 14:56] LABS: CREATININE 1.2 mg/dL (0.7-1.3); GFR 60.8; POTASSIUM 4.2 mmol/L (3.5-5.1)
[2020-11-12 15:01] LABS: ALBUMIN 3.3 g/dL (3.4-5.0); ALBUMIN/GLOBULIN RATIO 0.8 (1.0-1.7); TOTAL BILIRUBIN 1.4 mg/dL (0.2-1.0); TOTAL PROTEIN 7.7 g/dL (6.4-8.2)
[2020-11-12 16:47] LABS: PLT ESTIMATE ADEQUATE (ADEQUATE)
[2020-11-12 16:48] LABS: ANISOCYTOSIS MOD; HYPOCHROMIA MARKED; MICROCYTOSIS MARKED; POIKILOCYTOSIS MOD; POLYCHROMASIA PRESENT
[2020-11-12 16:49] LABS: OVALOCYTES FEW; SPHEROCYTES MOD; TARGET CELLS OCC
== END 2020-11-12 15:59 | disposition home or self-care (01) ==
LOC: ER 14:00
DX: R19.7 Diarrhea, unspecified (principal); F15.90 Other stimulant use, unspecified, uncomplicated; E78.00 Pure hypercholesterolemia, unspecified; E11.40 Type 2 diabetes mellitus with diabetic neuropathy, unspecified; I25.2 Old myocardial infarction; I25.10 Atherosclerotic heart disease of native coronary artery without angina pectoris; Z95.1 Presence of aortocoronary bypass graft; Z95.5 Presence of coronary angioplasty implant and graft
CPT/HCPCS: 99284; J7120; 36415; 80053; 80307; 81001; 82962; 83605; 85025

== ENCOUNTER 2020-11-13 21:51 | Inpatient (IN) | payer MEDICARE ==
[~2020-11-13] VITALS: Ht 185.4 cm; Wt 92.9 kg
--- NOTE | 2020-11-14 01:21 | PHYS DOC ---
Past Medical History Past Medical History: CAD, Diabetes-Type II, DVT, High Cholesterol, Hyper tension, CA Additional Past Medical Histor: NEUROPATHY Past Surgical History: Coronary Bypass Surgery, Other Additional Past Surgical Histo: FEMORAL BYPASS, STENT Smoking Status: Former Smoker Alcohol Use: Rarely Drug Use: None General Adult EDM: Chief Complaint: DIARRHEA HPI: HPI: Patient is a 65-year-old male presenting for multiple symptoms. Was here 24 hours ago and had formal work-up, he was positive for methamphetamine at that time and subsequently discharged home after no emergent and/or surgical findings were found. Reports he went home and drank a lot of water but states he has been short of breath, had episodes of presyncope, has had intermittent episodes of nonbloody stools that are softer than usual, and insomnia. Denies any recent meth abuse, states he last used over a month ago. No fever, URI symptoms, chest pain, ripping or tearing sensation in chest, productive cough, abdominal pain, bladder or bowel incontinence, changes in motor or sensory urinary function Review of Systems: Review of Systems: Fourteen body systems of review of systems have been reviewed. See HPI for pertinent positives and negative responses, other franks all other systems are negative, non-pertinent or non-contributory Heart Score: C/O Chest Pain: No Risk Factors: Risk Factors: DM, Current or recent (<one month) smoker, HTN, HLP, family history of CAD, obesity. Risk Scores: Score 0 - 3: 2.5% MACE over next 6 weeks - Discharge Home Score 4 - 6: 20.3% MACE over next 6 weeks - Admit for Clinical Observation Score 7 - 10: 72.7% MACE over next 6 weeks - Early Invasive Strategies Allergies: Allergies: Allergies Coded Allergies Type Severity Reaction Last Updated Verified No Known Drug Allergies 02/27/17 No Physical Exam: PE: Constitutional: Appears older than stated age, no acute distress and nontoxic in appearance, is jittery and cannot stop moving throughout examination HENT: Normocephalic, atraumatic, bilateral external ears normal, oropharynx dry, no oral exudates, nose normal. Eyes: PERRLA, EOMI, conjunctiva normal, no discharge. Neck: Normal range of motion, no tenderness, supple, no stridor. Cardiovascular: Heart rate tachycardic, sinus rhythm, no murmurs rubs or gallops Lungs & Thorax: Bilateral breath sounds clear to auscultation Abdomen: Bowel sounds normal, soft, no tenderness, no masses, no pulsatile masses. Nonsurgical abdomen, no peritoneal signs Skin: Warm, dry, no erythema, no rash. Numerous self-induced excoriations present on all extremities Back: No tenderness, no CVA tenderness. Extremities: No tenderness, no cyanosis, no clubbing, ROM intact, no edema. Neurologic: Alert and oriented X 3, cranial nerves II through XII intact, normal motor & sensory function, no focal deficits noted. Psychologic: Anxious affect and mood with rapid and pressured speech Current Patient Data: Labs: Laboratory Tests Test 11/14/20 06:25 11/14/20 07:59 11/14/20 09:30 11/14/20 12:40 Troponin I Quantitative 0.054 ng/mL 0.054 ng/mL Glucose (Fingerstick) 113 mg/dL 193 mg/dL Test 11/14/20 17:12 11/14/20 20:45 Glucose (Fingerstick) 184 mg/dL 201 mg/dL Current Medications Medications (Trade) Dose Ordered Sig/Lizzeth Route PRN Reason Start Time Stop Time Status Last Admin Dose Admin Sodium Chloride 1,000 ml @ 1,000 mls/hr 1X ONCE IV 11/14/20 02:00 11/14/20 02:59 DC 11/14/20 01:31 Vital Signs: Vital Signs Date Time Temp Pulse Resp B/P (MAP) Pulse Ox O2 Delivery O2 Flow Rate FiO2 11/14/20 01:10 98.3 117 16 123/73 (90) 95 Room Air 98.3 Vital Signs Date Time Temp Pulse Resp B/P (MAP) Pulse Ox O2 Delivery O2 Flow Rate FiO2 11/14/20 23:05 98.0 62 20 132/86 (101) 95 Room Air 98.0 EKG: EKG: EKG ordered and interpreted by myself 0155 hrs. as accelerated junctional rhythm at 130 bpm, prolonged QRS at 136 otherwise unremarkable intervals, no axis deviation, right bundle branch block, no STEMI EKG was compared to previous obtained 09/09/2020 and grossly unchanged except for patient is tachycardic today Radiology/Procedures: Radiology/Procedures: EXAM: AP View of the chest DATE: 11/14/2020 1:27 AM INDICATION: Reason: shob / Spl. Instructions: / History: COMPARISON: 09/09/2020 02/17/2020 FINDINGS: Heart is mildly enlarged. Aorta is tortuous with atherosclerotic calcifications. Bilateral parenchymal airspace opacities. No pleural effusion or pneumothorax. IMPRESSION: Bilateral parenchymal airspace opacities, possibly consolidation or atelectasis. Electronically signed by: Dilshad Rogers MD (11/14/2020 1:56 AM) [facility] Course & Med Decision Making: Course & Med Decision Making Airway patent, breathing unlabored, IV access and vitals obtained concerning for tachycardia HPI, physical exam and comprehensive ER work-up concerning for elevated troponin likely due to ongoing methamphetamine dependence I contacted hospitalist and reviewed need for admission. Joint decision to defer any heparin drip, patient to be admitted for cardiac observation for repeat EKG and serial troponin draws with cardiology consultation Updated patient on plan of care that will include hospital admission and he was amenable. All questions and concerns addressed prior to hospital admission Dragon Disclaimer: Dragon Disclaimer: This electronic medical record was generated, in whole or in part, using a voice recognition dictation system. Departure Departure Impression: Primary Impression: Elevated troponin Additional Impression: Methamphetamine abuse Disposition: ADMITTED INPATIENT Admitting Physician: HAROLDO (DR RENTERIA) Condition: STABLE Referrals: YOJANA PIPER MD (PCP) ELMER MENDOZA DO Nov 14, 2020 01:21
[2020-11-14 01:24] LABS: BILIRUBIN,URINE NEGATIVE (NEG); CLARITY,URINE CLEAR; COLOR,URINE YELLOW; NITRITE,URINE NEGATIVE (NEG); PROTEIN,URINE NEGATIVE (NEG-TRACE)
[2020-11-14 01:30] LABS: BACTERIA,URINE 0 /HPF (0-FEW); BARBITURATES NEG (NEG); BENZODIAZEPINES NEG (NEG); CANNABINOIDS NEG (NEG); COCAINE NEG (NEG); METHADONE NEG (NEG); OPIATES NEG (NEG); PHENCYCLIDINE NEG (NEG); RBC,URINE 0 /HPF (0-2); WBC,URINE OCC /HPF (0-4)
[2020-11-14 01:32] LABS: AMPHETAMINE/METHAMPHETAMINE POS (NEG)
[2020-11-14 01:34] LABS: BASO # 0.2 x10^3/uL (0.0-0.2); BASO % 2 % (0-3); EOS # 0.2 x10^3/uL (0.0-0.7); EOS % 2 % (0-3); HEMATOCRIT 31.7 % (39.0-53.0); HEMOGLOBIN 9.5 g/dL (13.0-17.5); LYMPH # 1.7 x10^3/uL (1.0-4.8); LYMPH % 19 % (24-48); MEAN CORPUSCULAR HEMOGLOBIN 20 pg (25-35); MEAN CORPUSCULAR HGB CONC 30 g/dL (31-37); MEAN CORPUSCULAR VOLUME 66 fL (79-100); MONO # 1.2 x10^3/uL (0.0-1.1); MONO % 13 % (0-9); NEUT # 5.8 x10^3/uL (1.8-7.7); NEUT % 64 % (31-73); PLATELET COUNT 333 x10^3/uL (140-400); RED BLOOD COUNT 4.81 x10^6/uL (4.30-5.70); RED CELL DISTRIBUTION WIDTH 22.1 % (11.5-14.5)
[2020-11-14 01:44] LABS: CALCIUM 8.9 mg/dL (8.5-10.1); CREATININE 1.2 mg/dL (0.7-1.3); GFR 60.8; POTASSIUM 3.9 mmol/L (3.5-5.1)
[2020-11-14 01:49] LABS: ALBUMIN 3.1 g/dL (3.4-5.0); ALBUMIN/GLOBULIN RATIO 0.8 (1.0-1.7); TOTAL BILIRUBIN 1.2 mg/dL (0.2-1.0); TOTAL PROTEIN 7.2 g/dL (6.4-8.2)
--- NOTE | 2020-11-14 01:59 | RAD ---
EXAM: AP View of the chest DATE: 11/14/2020 1:27 AM INDICATION: Reason: shob / Spl. Instructions: / History: COMPARISON: 09/09/2020 02/17/2020 FINDINGS: Heart is mildly enlarged. Aorta is tortuous with atherosclerotic calcifications. Bilateral parenchyma l airspace opacities. No pleural effusion or pneumothorax. IMPRESSION: Bilateral parenchymal airspace opacities, possibly consolidation or atelectasis. Electronically signed by: Dilshad Rogers MD (11/14/2020 1:56 AM) YENY
--- NOTE | 2020-11-14 01:59 | EKG ---
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
[2020-11-14 02:00] LABS: PLT ESTIMATE ADEQUATE (ADEQUATE)
[2020-11-14] MEDS ORDERED: IV NORMAL SALINE 1000ML BAG 1,000 ML IV ONE (02:00)
[2020-11-14 02:01] LABS: ANISOCYTOSIS MOD; HYPOCHROMIA MARKED; MICROCYTOSIS MARKED; OVALOCYTES FEW; POIKILOCYTOSIS SLIGHT; POLYCHROMASIA SLIGHT; SPHEROCYTES OCC
[2020-11-14] MEDS ORDERED: ACETAMINOPHEN 325 MG TABLET. PO PRN ×2 (02:45→09:15)
[2020-11-14] MEDS ORDERED: NITROGLYCERIN SUBLINGUAL 0.4 MG BOTTLE OF 25. SL PRN (02:45)
[2020-11-14] MEDS ORDERED: ASPIRIN CHEWABLE 81 MG TABLET. PO ONE (03:30)
--- NOTE | 2020-11-14 04:12 | NUR ---
Pt. just arrived from ED via w/c w/ diarrhea, elevated troponin and meth use. He is A/O x4 and will make needs known.
[2020-11-14 04:48] VITALS: BP 149/98
[2020-11-14 07:00] VITALS: BP 141/76
[2020-11-14] MEDS ORDERED: SENNOSIDES 8.6 MG TABLET PO PRN (09:15)
[2020-11-14] MEDS ORDERED: PROCHLORPERAZINE 10 MG/2 ML VIAL. IV PRN (09:15)
[2020-11-14] MEDS ORDERED: DEXTROSE 50% 25 GM / 50ML DISP.SYRIN. IV PRN (09:15)
[2020-11-14] MEDS ORDERED: ONDANSETRON PF 4 MG/2 ML VIAL. IVP PRN (09:15)
[2020-11-14] MEDS ORDERED: DOCUSATE SODIUM 100 MG CAPSULE. PO PRN (09:15)
--- NOTE | 2020-11-14 09:15 | PDOC1 ---
History and Physical Date of Service: DOS: DATE: 11/14/20 TIME: 09:03 Chief Complaint: Chief Complain: Diarrhea History of Present Illness: HPI: History obtained from discussion with the ED physician and chart review: 65-year-old male presenting for multiple symptoms. Was here 24 hours ago and had formal work-up, he was positive for methamphetamine at that time and subsequently discharged home after no emergent and/or surgical findings were found. Reports he went home and drank a lot of water but states he has been short of breath, had episodes of presyncope, has had intermittent episodes of nonbloody stools that are softer than usual, and insomnia. Denies any recent meth abuse, states he last used over a month ago. No fever, URI symptoms, chest pain, ripping or tearing sensation in chest, productive cough, abdominal pain, bladder or bowel incontinence, changes in motor or sensory urinary function Past Medical/Surgical History: PMH/PSH: Past Medical History: CAD, Diabetes-Type II, DVT, High Cholesterol, Hypertension, NM, NEUROPATHY Past Surgical History: Coronary Bypass Surgery, FEMORAL BYPASS, STENT Allergies: Allergies: Coded Allergies: No Known Drug Allergies (Unverified , 02/27/17) Family History: Family History: Reviewed with no relevant findings Social History: Social History: Smoking Status: Former Smoker Alcohol Use: Rarely Drug Use: None Current Medications: Current Medications Current Medications Sodium Chloride 1,000 ml @ 1,000 mls/hr 1X ONCE IV Last administered on 11/14/20at 01:31; Start 11/14/20 at 02:00; Stop 11/14/20 at 02:59; Status DC Aspirin (Aspirin Chewable) 324 mg 1X ONCE PO Last administered on 11/14/20at 03:59; Start 11/14/20 at 03:30; Stop 11/14/20 at 03:31; Status DC Acetaminophen (Tylenol) 650 mg PRN Q4HRS PRN PO FEVER > 100.3'F; Start 11/14/20 at 02:45; Stop 11/15/20 at 02:44 Nitroglycerin (Nitrostat) 0.4 mg PRN Q5MIN PRN SL CHEST PAIN; Start 11/14/20 at 02:45; Stop 11/15/20 at 02:44 Active Scripts Active Lasix (Furosemide) 40 Mg Tablet 1 Tab PO DAILY 30 Days Metoprolol Succinate ( Xl ) (Metoprolol Succinate) 100 Mg Tab.er.24h 1 Tab PO DAILY 30 Days Lisinopril 20 Mg Tablet 1 Tab PO DAILY 30 Days Amiodarone Hcl 200 Mg Tablet 200 Mg PO DAILY 30 Days Levemir (Insulin Detemir) 100 Unit/1 Ml Vial 55 Unit SQ QHS 30 Days Clopidogrel (Clopidogrel Bisulfate) 75 Mg Tablet 1 Tab PO DAILY Atorvastatin Calcium 40 Mg Tablet 40 Mg PO QHS 30 Days Reported Doxycycline Hyclate 100 Mg Capsule 1 Cap PO BID 10 Days [gentamicin] 0.1 % TP DAILY Metformin Hcl 1,000 Mg Tablet 1,000 Mg PO BIDWMEALS Novolog Flexpen (Insulin Aspart) 100 Unit/1 Ml Insuln.pen 10 Unit SQ TIDWMEALS Gabapentin (Gabapentin) 300 Mg Capsule 300 Mg PO QID Eliquis (Apixaban) 5 Mg Tablet 5 Mg PO BID ROS: Review of Systems Review of System REVIEW OF SYSTEMS: GENERAL: Denies weakness SKIN: No bruising, hair changes or rashes. EYES: No blurred, double or loss of vision. NOSE AND THROAT: No history of nosebleeds, hoarseness or sore throat. HEART: No history of palpitations, chest pain or shortness of breath on exertion. LUNGS: Denies cough, hemoptysis, wheezing or shortness of breath. GASTROINTESTINAL: Denies changes in appetite, nausea, vomiting, diarrhea or constipation. GENITOURINARY: No history of frequency, urgency, hesitancy or nocturia. NEUROLOGIC: Denies history of numbness, tingling, or tremor. PSYCHIATRIC: No history of panic, anxiety or depression. ENDOCRINE: No history of heat or cold intolerance, polyuria or polydipsia. EXTREMITIES: Denies joint pain, pain on walking or stiffness. Physical Exam: Vital Signs: Vital Signs Date Time Temp Pulse Resp B/P (MAP) Pulse Ox O2 Delivery O2 Flow Rate FiO2 11/14/20 07:00 98.0 131 17 141/76 (97) 95 Room Air 98.0 Physcial Exam: GEN: No apparent distress. Alert and oriented HEENT: Normal cephalic, atraumatic, external auditory canals are patent EYES: Extraocular muscles are intact, pupil are equally round and reactive to light and accommodation MUSCULOSKELETAL: Well developed , well nourished, good range of motion ENDOCRINE: No thyromegaly was palpated LYMPHATICS: No cervical chain or axillary nodes were noted HEMATOPOIETIC: No bruising NECK: Supple, no JVD, no thyromegaly was noted LUNGS: Clear to auscultation in all lung lozoya without rhonchi or wheezing HEART: RRR, S!, S2 present. Peripheral pulses intact, no obvious murmurs noted ABDOMEN: Soft, nontender. Positive bowel sounds, no organomegaly, normal bowel sounds EXTREMITIES: Without clubbing, cyanosis, or edema. Pedal pulses intact. Negative Homans sign NEUROLOGIC: Normal speech and tone. A&O x 3, moves all extremities, no obvious focal deficits PSYCHIATRIC: Normal affect, normal mood. Stable SKIN: No ulcerations or rashes, good skin turgor, no jaundice VASCULAR: Good capillary refill, neurovascular bundle appears to be intact Labs: Labs: Laboratory Tests Test 11/14/20 01:15 11/14/20 01:25 11/14/20 02:03 11/14/20 06:25 Urine Collection Type Unknown Urine Color Yellow Urine Clarity Clear Urine pH 6.0 (<5.0-8.0) Urine Specific [place] 1.010 (1.000-1.030) Urine Protein Negative mg/dL (NEG-TRACE) Urine Glucose (UA) >=1000 mg/dL (NEG) Urine Ketones (Stick) Negative mg/dL (NEG) Urine Blood Negative (NEG) Urine Nitrite Negative (NEG) Urine Bilirubin Negative (NEG) Urine Urobilinogen Dipstick 1.0 mg/dL (0.2 mg/dL) Urine Leukocyte Esterase Negative (NEG) Urine RBC 0 /HPF (0-2) Urine WBC Occ /HPF (0-4) Urine Squamous Epithelial Cells Occ /LPF Urine Bacteria 0 /HPF (0-FEW) Urine Opiates Screen Neg (NEG) Urine Methadone Screen Neg (NEG) Urine Barbiturates Neg (NEG) Urine Phencyclidine Screen Neg (NEG) Urine Amphetamine/Methamphetamine Pos (NEG) Urine Benzodiazepines Screen Neg (NEG) Urine Cocaine Screen Neg (NEG) Urine Cannabinoids Screen Neg (NEG) Urine Ethyl Alcohol Neg (NEG) White Blood Count 9.0 x10^3/uL (4.0-11.0) Red Blood Count 4.81 x10^6/uL (4.30-5.70) Hemoglobin 9.5 g/dL (13.0-17.5) Hematocrit 31.7 % (39.0-53.0) Mean Corpuscular Volume 66 fL (79-100) Mean Corpuscular Hemoglobin 20 pg (25-35) Mean Corpuscular Hemoglobin Concent 30 g/dL (31-37) Red Cell Distribution Width 22.1 % (11.5-14.5) Platelet Count 333 x10^3/uL (140-400) Neutrophils (%) (Auto) 64 % (31-73) Lymphocytes (%) (Auto) 19 % (24-48) Monocytes (%) (Auto) 13 % (0-9) Eosinophils (%) (Auto) 2 % (0-3) Basophils (%) (Auto) 2 % (0-3) Neutrophils # (Auto) 5.8 x10^3/uL (1.8-7.7) Lymphocytes # (Auto) 1.7 x10^3/uL (1.0-4.8) Monocytes # (Auto) 1.2 x10^3/uL (0.0-1.1) Eosinophils # (Auto) 0.2 x10^3/uL (0.0-0.7) Basophils # (Auto) 0.2 x10^3/uL (0.0-0.2) Platelet Estimate Adequate (ADEQUATE) Polychromasia Slight Hypochromasia Marked Poikilocytosis Slight Anisocytosis Mod Microcytosis Marked Spherocytes Occ Ovalocytes Few Sodium Level 139 mmol/L (136-145) Potassium Level 3.9 mmol/L (3.5-5.1) Chloride Level 102 mmol/L (98-107) Carbon Dioxide Level 26 mmol/L (21-32) Anion Gap 11 (6-14) Blood Urea Nitrogen 27 mg/dL (8-26) Creatinine 1.2 mg/dL (0.7-1.3) Estimated GFR (Cockcroft-Gault) 60.8 BUN/Creatinine Ratio 23 (6-20) Glucose Level 86 mg/dL (70-99) Calcium Level 8.9 mg/dL (8.5-10.1) Total Bilirubin 1.2 mg/dL (0.2-1.0) Aspartate Amino Transf (AST/SGOT) 34 U/L (15-37) Alanine Aminotransferase (ALT/SGPT) 26 U/L (16-63) Alkaline Phosphatase 170 U/L (46-116) Troponin I Quantitative 0.062 ng/mL (0.000-0.055) 0.054 ng/mL (0.000-0.055) UJ-Crd-V-Type Natriuretic Peptide 5461 pg/mL (0-124) Total Protein 7.2 g/dL (6.4-8.2) Albumin 3.1 g/dL (3.4-5.0) Albumin/Globulin Ratio 0.8 (1.0-1.7) SARS-CoV-2 Antigen (Rapid) Negative (NEGATIVE) Test 11/14/20 07:59 Glucose (Fingerstick) 113 mg/dL (70-99) Laboratory Tests Test 11/14/20 01:15 11/14/20 01:25 11/14/20 02:03 11/14/20 06:25 Urine Collection Type Unknown Urine Color Yellow Urine Clarity Clear Urine pH 6.0 (<5.0-8.0) Urine Specific [place] 1.010 (1.000-1.030) Urine Protein Negative mg/dL (NEG-TRACE) Urine Glucose (UA) >=1000 mg/dL (NEG) Urine Ketones (Stick) Negative mg/dL (NEG) Urine Blood Negative (NEG) Urine Nitrite Negative (NEG) Urine Bilirubin Negative (NEG) Urine Urobilinogen Dipstick 1.0 mg/dL (0.2 mg/dL) Urine Leukocyte Esterase Negative (NEG) Urine RBC 0 /HPF (0-2) Urine WBC Occ /HPF (0-4) Urine Squamous Epithelial Cells Occ /LPF Urine Bacteria 0 /HPF (0-FEW) Urine Opiates Screen Neg (NEG) Urine Methadone Screen Neg (NEG) Urine Barbiturates Neg (NEG) Urine Phencyclidine Screen Neg (NEG) Urine Amphetamine/Methamphetamine Pos (NEG) Urine Benzodiazepines Screen Neg (NEG) Urine Cocaine Screen Neg (NEG) Urine Cannabinoids Screen Neg (NEG) Urine Ethyl Alcohol Neg (NEG) White Blood Count 9.0 x10^3/uL (4.0-11.0) Red Blood Count 4.81 x10^6/uL (4.30-5.70) Hemoglobin 9.5 g/dL (13.0-17.5) Hematocrit 31.7 % (39.0-53.0) Mean Corpuscular Volume 66 fL (79-100) Mean Corpuscular Hemoglobin 20 pg (25-35) Mean Corpuscular Hemoglobin Concent 30 g/dL (31-37) Red Cell Distribution Width 22.1 % (11.5-14.5) Platelet Count 333 x10^3/uL (140-400) Neutrophils (%) (Auto) 64 % (31-73) Lymphocytes (%) (Auto) 19 % (24-48) Monocytes (%) (Auto) 13 % (0-9) Eosinophils (%) (Auto) 2 % (0-3) Basophils (%) (Auto) 2 % (0-3) Neutrophils # (Auto) 5.8 x10^3/uL (1.8-7.7) Lymphocytes # (Auto) 1.7 x10^3/uL (1.0-4.8) Monocytes # (Auto) 1.2 x10^3/uL (0.0-1.1) Eosinophils # (Auto) 0.2 x10^3/uL (0.0-0.7) Basophils # (Auto) 0.2 x10^3/uL (0.0-0.2) Platelet Estimate Adequate (ADEQUATE) Polychromasia Slight Hypochromasia Marked Poikilocytosis Slight Anisocytosis Mod Microcytosis Marked Spherocytes Occ Ovalocytes Few Sodium Level 139 mmol/L (136-145) Potassium Level 3.9 mmol/L (3.5-5.1) Chloride Level 102 mmol/L (98-107) Carbon Dioxide Level 26 mmol/L (21-32) Anion Gap 11 (6-14) Blood Urea Nitrogen 27 mg/dL (8-26) Creatinine 1.2 mg/dL (0.7-1.3) Estimated GFR (Cockcroft-Gault) 60.8 BUN/Creatinine Ratio 23 (6-20) Glucose Level 86 mg/dL (70-99) Calcium Level 8.9 mg/dL (8.5-10.1) Total Bilirubin 1.2 mg/dL (0.2-1.0) Aspartate Amino Transf (AST/SGOT) 34 U/L (15-37) Alanine Aminotransferase (ALT/SGPT) 26 U/L (16-63) Alkaline Phosphatase 170 U/L (46-116) Troponin I Quantitative 0.062 ng/mL (0.000-0.055) 0.054 ng/mL (0.000-0.055) IX-Xyv-W-Type Natriuretic Peptide 5461 pg/mL (0-124) Total Protein 7.2 g/dL (6.4-8.2) Albumin 3.1 g/dL (3.4-5.0) Albumin/Globulin Ratio 0.8 (1.0-1.7) SARS-CoV-2 Antigen (Rapid) Negative (NEGATIVE) Test 11/14/20 07:59 Glucose (Fingerstick) 113 mg/dL (70-99) Images: Images PROCEDURE: CHEST AP ONLY IMPRESSION: Bilateral parenchymal airspace opacities, possibly consolidation or atelectasis. Assessment/Plan Assessment/Plan Acute on chronic CHF exacerbation, last echocardiogram with LVEF of 40 to 45% on January 2020 Elevated BNP, chest x-ray not showing cardiomegaly or volume overload Elevated troponins likely due to type II demand ischemia, secondary to methamphetamine use Microcytic anemia Methamphetamine positivity Methamphetamine abuse Moderate protein malnutrition History of CABG History of diabetes mellitus type 2 History of DVT Dyslipidemia History of hypertension History of femoral bypass and stenting Admit to hospitalist service for further management Cardiology consult Continue telemetry monitoring Trend troponins Will consider diuresis depending on physical exam Lovenox for DVT prophylaxis Protonix GI prophylaxis ADA diet CODE STATUS full Discussed with RN and SW Disposition inpatient management as above DPOA: Undesignated In addition to my E/M visit, advance care planning done with A total time of 20 minutes was spent from 10:00 to 1020 face to face in discussion with the patient and family regarding their goals of care, CODE STATUS. Justifications for Admission Other Justification LAURO NGO MD Nov 14, 2020 09:15
[2020-11-14] MEDS ORDERED: ENOXAPARIN 40 MG/0.4 ML SYRINGE. SQ SCH (10:00)
[2020-11-14 11:00] VITALS: BP 160/94
[2020-11-14] MEDS ORDERED: POTA15TA9 PO (11:51)
[2020-11-14] MEDS ORDERED: FURO80TA3 PO (11:51)
[2020-11-14] MEDS ORDERED: LISI10TA16 PO (11:51)
[2020-11-14] MEDS ORDERED: GABA600T7 PO (11:51)
[2020-11-14] MEDS ORDERED: METO50TA6 PO (11:51)
[2020-11-14] MEDS: AMIODARONE HCL 200 MG TABLET. PO SCH (12:02)
[2020-11-14] MEDS: GABAPENTIN 300 MG CAPSULE. PO SCH ×2 (12:34→21:05)
[2020-11-14] MEDS: METOPROLOL TART IMMED RELEASE 50 MG TABLET. PO SCH ×2 (12:35→21:06)
[2020-11-14] MEDS: APIXABAN 5 MG TABLET. PO SCH ×2 (12:35→21:05)
[2020-11-14] MEDS: CLOPIDOGREL BISULFATE 75 MG TABLET PO SCH (12:35)
[2020-11-14] MEDS: PANTOPRAZOLE 40 MG TABLET.DR. PO SCH (12:35)
[2020-11-14] MEDS: INSULIN LISPRO 300 UNITS/3 ML VIAL. SQ SCH ×2 (12:42→17:41)
--- NOTE | 2020-11-14 14:44 | PDOC2 ---
CONSULT Date of Consult Date of Consult DATE: 11/14/20 TIME: 14:36 Reason for Consult Reason for Consult: Dizziness, coronary artery disease, peripheral vascular disease Referring Physician Referring Physician: Dr. Alonso Identification/Chief Complaint Chief Complaint Shortness of breath Source Source: Chart review, Patient History of Present Illness Reason for Visit: The patient is a 65-year-old male who was admitted from the emergency room for episodes of increasing shortness of breath and dizziness. His meth screen was positive and his troponins have been minimally elevated at 0.062, 0.054 and 0.054. A EKG upon initial admission showed a sinus tachycardia with nonspecific ST-T wave changes. Chest x-ray showed mild bilateral airspace opacities. This morning the patient is more comfortable but is not able to give a clear history. From old records including a consult on 09/17/2020 the patient has a complex history including an emergent bypass x2 in 2016, a balloon angioplasty thrombectomy of a femoral popliteal bypass also in August of this year. He has a history of paroxysmal atrial flutter, moderate pulmonary hypertension, hypertension and hyperlipidemia with apparently a long history of methamphetamine abuse and noncompliance.. Past Medical History Cardiovascular: CAD, CHF, HTN, [place], Hyperlipidemia, Other Pulmonary: No pertinent hx, COPD CENTRAL NERVOUS SYSTEM: Other GI: No pertinent hx Heme/Onc: No pertinent hx Hepatobiliary: No pertinent hx Psych: No pertinent hx Musculoskeletal: Osteoarthritis Rheumatologic: No pertinent hx Infectious disease: No pertinent hx Renal/: No pertinent hx Endocrine: Diabetes Past Surgical History Past Surgical History: CABG, Other (Peripheral bypass surgery.) Family History Family History: Heart Disease Social History ALCOHOL: none Drugs: Crystal meth Lives: with Family Current Problem List Problem List Problems Medical Problems: (1) Elevated troponin Status: Acute (2) Methamphetamine abuse Status: Acute Current Medications Current Medications Current Medications Sodium Chloride 1,000 ml @ 1,000 mls/hr 1X ONCE IV Last administered on 11/14/20at 01:31; Start 11/14/20 at 02:00; Stop 11/14/20 at 02:59; Status DC Aspirin (Aspirin Chewable) 324 mg 1X ONCE PO Last administered on 11/14/20at 03:59; Start 11/14/20 at 03:30; Stop 11/14/20 at 03:31; Status DC Acetaminophen (Tylenol) 650 mg PRN Q4HRS PRN PO FEVER > 100.3'F; Start 11/14/20 at 02:45; Stop 11/15/20 at 02:44 Nitroglycerin (Nitrostat) 0.4 mg PRN Q5MIN PRN SL CHEST PAIN; Start 11/14/20 at 02:45; Stop 11/15/20 at 02:44 Sennosides (Senna) 17.2 mg PRN BID PRN PO CONSTIPATION; Start 11/14/20 at 09:15 Docusate Sodium (Colace) 100 mg PRN DAILY PRN PO HARD STOOLS; Start 11/14/20 at 09:15 Ondansetron HCl (Zofran) 4 mg PRN Q6HRS PRN IVP NAUSEA/VOMITING; Start 11/14/20 at 09:15 Dextrose (Dextrose 50%-Water Syringe) 12.5 gm PRN Q15MIN PRN IV SEE COMMENTS; Start 11/14/20 at 09:15 Acetaminophen (Tylenol) 650 mg PRN Q4HRS PRN PO TEMP OVER 100.4F OR MILD PAIN; Start 11/14/20 at 09:15 Enoxaparin Sodium (Lovenox 40mg Syringe) 40 mg Q24H SQ ; Start 11/14/20 at 10:00; Stop 11/14/20 at 11:57; Status DC Pantoprazole Sodium (Protonix) 40 mg DAILYAC PO Last administered on 11/14/20at 12:35; Start 11/14/20 at 11:30 Prochlorperazine Edisylate (Compazine) 10 mg PRN Q6HRS PRN IV NAUSEA/VOMITING, 2ND CHOICE; Start 11/14/20 at 09:15 Amiodarone HCl (Cordarone) 200 mg DAILY PO ; Start 11/14/20 at 13:00 Apixaban (Eliquis) 5 mg BID PO Last administered on 11/14/20at 12:35; Start at 13:00 Atorvastatin Calcium (Lipitor) 40 mg QHS PO ; Start 11/14/20 at 21:00 Clopidogrel Bisulfate (Plavix) 75 mg DAILY PO Last administered on 11/14/20at 12:35; Start 11/14/20 at 13:00 Metoprolol Tartrate (Lopressor) 50 mg BID PO Last administered on 11/14/20at 12:35; Start 11/14/20 at 13:00 Gabapentin (Neurontin) 300 mg TID PO Last administered on 11/14/20at 12:34; Start 11/14/20 at 14:00 Insulin Human Lispro (HumaLOG) 10 units TIDWMEALS SQ Last administered on 11/14/20at 12:42; Start 11/14/20 at 12:00 Insulin Glargine (Lantus Syringe) 55 unit QHS SQ ; Start 11/14/20 at 21:00 Active Scripts Active Amiodarone Hcl 200 Mg Tablet 200 Mg PO DAILY 30 Days Levemir (Insulin Detemir) 100 Unit/1 Ml Vial 55 Unit SQ QHS 30 Days Clopidogrel (Clopidogrel Bisulfate) 75 Mg Tablet 1 Tab PO DAILY Atorvastatin Calcium 40 Mg Tablet 40 Mg PO QHS 30 Days Reported Gabapentin 600 Mg Tablet 300 Mg PO TID Metoprolol Tartrate 50 Mg Tablet 1 Tab PO BID Potassium Citrate Er (Potassium Citrate) 15 Meq Tablet.er 20 Meq PO BIDWMEALS Furosemide 80 Mg Tablet 1 Tab PO DAILY Lisinopril 10 Mg Tablet 1 Tab PO DAILY Doxycycline Hyclate 100 Mg Capsule 1 Cap PO BID 10 Days [gentamicin] 0.1 % TP DAILY Metformin Hcl 1,000 Mg Tablet 1,000 Mg PO BIDWMEALS Novolog Flexpen (Insulin Aspart) 100 Unit/1 Ml Insuln.pen 10 Unit SQ TIDWMEALS Eliquis (Apixaban) 5 Mg Tablet 5 Mg PO BID Allergies Allergies: Coded Allergies: No Known Drug Allergies (Unverified , 02/27/17) ROS General: YES: Fatigue Respiratory: YES: Shortness of breath, SOB with excertion Physical Exam HEENT: Atraumatic Lungs: Other (Mildly decreased breath sounds) Heart: Regular rate Abdomen: Normal bowel sounds Vitals VITALS Vital Signs Date Time Temp Pulse Resp B/P (MAP) Pulse Ox O2 Delivery O2 Flow Rate FiO2 11/14/20 12:35 130 160/94 11/14/20 11:00 97.6 18 99 Room Air 97.6 Labs Labs Laboratory Tests Test 11/14/20 01:15 11/14/20 01:25 11/14/20 02:03 11/14/20 06:25 Urine Collection Type Unknown Urine Color Yellow Urine Clarity Clear Urine pH 6.0 (<5.0-8.0) Urine Specific [place] 1.010 (1.000-1.030) Urine Protein Negative mg/dL (NEG-TRACE) Urine Glucose (UA) >=1000 mg/dL (NEG) Urine Ketones (Stick) Negative mg/dL (NEG) Urine Blood Negative (NEG) Urine Nitrite Negative (NEG) Urine Bilirubin Negative (NEG) Urine Urobilinogen Dipstick 1.0 mg/dL (0.2 mg/dL) Urine Leukocyte Esterase Negative (NEG) Urine RBC 0 /HPF (0-2) Urine WBC Occ /HPF (0-4) Urine Squamous Epithelial Cells Occ /LPF Urine Bacteria 0 /HPF (0-FEW) Urine Opiates Screen Neg (NEG) Urine Methadone Screen Neg (NEG) Urine Barbiturates Neg (NEG) Urine Phencyclidine Screen Neg (NEG) Urine Amphetamine/Methamphetamine Pos (NEG) Urine Benzodiazepines Screen Neg (NEG) Urine Cocaine Screen Neg (NEG) Urine Cannabinoids Screen Neg (NEG) Urine Ethyl Alcohol Neg (NEG) White Blood Count 9.0 x10^3/uL (4.0-11.0) Red Blood Count 4.81 x10^6/uL (4.30-5.70) Hemoglobin 9.5 g/dL (13.0-17.5) Hematocrit 31.7 % (39.0-53.0) Mean Corpuscular Volume 66 fL (79-100) Mean Corpuscular Hemoglobin 20 pg (25-35) Mean Corpuscular Hemoglobin Concent 30 g/dL (31-37) Red Cell Distribution Width 22.1 % (11.5-14.5) Platelet Count 333 x10^3/uL (140-400) Neutrophils (%) (Auto) 64 % (31-73) Lymphocytes (%) (Auto) 19 % (24-48) Monocytes (%) (Auto) 13 % (0-9) Eosinophils (%) (Auto) 2 % (0-3) Basophils (%) (Auto) 2 % (0-3) Neutrophils # (Auto) 5.8 x10^3/uL (1.8-7.7) Lymphocytes # (Auto) 1.7 x10^3/uL (1.0-4.8) Monocytes # (Auto) 1.2 x10^3/uL (0.0-1.1) Eosinophils # (Auto) 0.2 x10^3/uL (0.0-0.7) Basophils # (Auto) 0.2 x10^3/uL (0.0-0.2) Platelet Estimate Adequate (ADEQUATE) Polychromasia Slight Hypochromasia Marked Poikilocytosis Slight Anisocytosis Mod Microcytosis Marked Spherocytes Occ Ovalocytes Few Sodium Level 139 mmol/L (136-145) Potassium Level 3.9 mmol/L (3.5-5.1) Chloride Level 102 mmol/L (98-107) Carbon Dioxide Level 26 mmol/L (21-32) Anion Gap 11 (6-14) Blood Urea Nitrogen 27 mg/dL (8-26) Creatinine 1.2 mg/dL (0.7-1.3) Estimated GFR (Cockcroft-Gault) 60.8 BUN/Creatinine Ratio 23 (6-20) Glucose Level 86 mg/dL (70-99) Calcium Level 8.9 mg/dL (8.5-10.1) Total Bilirubin 1.2 mg/dL (0.2-1.0) Aspartate Amino Transf (AST/SGOT) 34 U/L (15-37) Alanine Aminotransferase (ALT/SGPT) 26 U/L (16-63) Alkaline Phosphatase 170 U/L (46-116) Troponin I Quantitative 0.062 ng/mL (0.000-0.055) 0.054 ng/mL (0.000-0.055) SV-Cxy-X-Type Natriuretic Peptide 5461 pg/mL (0-124) Total Protein 7.2 g/dL (6.4-8.2) Albumin 3.1 g/dL (3.4-5.0) Albumin/Globulin Ratio 0.8 (1.0-1.7) SARS-CoV-2 RNA (LIZZY) Negative (Negative) SARS-CoV-2 Antigen (Rapid) Negative (NEGATIVE) Test 11/14/20 07:59 11/14/20 09:30 11/14/20 12:40 Glucose (Fingerstick) 113 mg/dL (70-99) 193 mg/dL (70-99) Troponin I Quantitative 0.054 ng/mL (0.000-0.055) Laboratory Tests Test 11/14/20 01:15 11/14/20 01:25 11/14/20 02:03 11/14/20 06:25 Urine Collection Type Unknown Urine Color Yellow Urine Clarity Clear Urine pH 6.0 (<5.0-8.0) Urine Specific [place] 1.010 (1.000-1.030) Urine Protein Negative mg/dL (NEG-TRACE) Urine Glucose (UA) >=1000 mg/dL (NEG) Urine Ketones (Stick) Negative mg/dL (NEG) Urine Blood Negative (NEG) Urine Nitrite Negative (NEG) Urine Bilirubin Negative (NEG) Urine Urobilinogen Dipstick 1.0 mg/dL (0.2 mg/dL) Urine Leukocyte Esterase Negative (NEG) Urine RBC 0 /HPF (0-2) Urine WBC Occ /HPF (0-4) Urine Squamous Epithelial Cells Occ /LPF Urine Bacteria 0 /HPF (0-FEW) Urine Opiates Screen Neg (NEG) Urine Methadone Screen Neg (NEG) Urine Barbiturates Neg (NEG) Urine Phencyclidine Screen Neg (NEG) Urine Amphetamine/Methamphetamine Pos (NEG) Urine Benzodiazepines Screen Neg (NEG) Urine Cocaine Screen Neg (NEG) Urine Cannabinoids Screen Neg (NEG) Urine Ethyl Alcohol Neg (NEG) White Blood Count 9.0 x10^3/uL (4.0-11.0) Red Blood Count 4.81 x10^6/uL (4.30-5.70) Hemoglobin 9.5 g/dL (13.0-17.5) Hematocrit 31.7 % (39.0-53.0) Mean Corpuscular Volume 66 fL (79-100) Mean Corpuscular Hemoglobin 20 pg (25-35) Mean Corpuscular Hemoglobin Concent 30 g/dL (31-37) Red Cell Distribution Width 22.1 % (11.5-14.5) Platelet Count 333 x10^3/uL (140-400) Neutrophils (%) (Auto) 64 % (31-73) Lymphocytes (%) (Auto) 19 % (24-48) Monocytes (%) (Auto) 13 % (0-9) Eosinophils (%) (Auto) 2 % (0-3) Basophils (%) (Auto) 2 % (0-3) Neutrophils # (Auto) 5.8 x10^3/uL (1.8-7.7) Lymphocytes # (Auto) 1.7 x10^3/uL (1.0-4.8) Monocytes # (Auto) 1.2 x10^3/uL (0.0-1.1) Eosinophils # (Auto) 0.2 x10^3/uL (0.0-0.7) Basophils # (Auto) 0.2 x10^3/uL (0.0-0.2) Platelet Estimate Adequate (ADEQUATE) Polychromasia Slight Hypochromasia Marked Poikilocytosis Slight Anisocytosis Mod Microcytosis Marked Spherocytes Occ Ovalocytes Few Sodium Level 139 mmol/L (136-145) Potassium Level 3.9 mmol/L (3.5-5.1) Chloride Level 102 mmol/L (98-107) Carbon Dioxide Level 26 mmol/L (21-32) Anion Gap 11 (6-14) Blood Urea Nitrogen 27 mg/dL (8-26) Creatinine 1.2 mg/dL (0.7-1.3) Estimated GFR (Cockcroft-Gault) 60.8 BUN/Creatinine Ratio 23 (6-20) Glucose Level 86 mg/dL (70-99) Calcium Level 8.9 mg/dL (8.5-10.1) Total Bilirubin 1.2 mg/dL (0.2-1.0) Aspartate Amino Transf (AST/SGOT) 34 U/L (15-37) Alanine Aminotransferase (ALT/SGPT) 26 U/L (16-63) Alkaline Phosphatase 170 U/L (46-116) Troponin I Quantitative 0.062 ng/mL (0.000-0.055) 0.054 ng/mL (0.000-0.055) XN-Cag-A-Type Natriuretic Peptide 5461 pg/mL (0-124) Total Protein 7.2 g/dL (6.4-8.2) Albumin 3.1 g/dL (3.4-5.0) Albumin/Globulin Ratio 0.8 (1.0-1.7) SARS-CoV-2 RNA (LIZZY) Negative (Negative) SARS-CoV-2 Antigen (Rapid) Negative (NEGATIVE) Test 11/14/20 07:59 11/14/20 09:30 11/14/20 12:40 Glucose (Fingerstick) 113 mg/dL (70-99) 193 mg/dL (70-99) Troponin I Quantitative 0.054 ng/mL (0.000-0.055) Images Images Chest x-ray as above. Assessment/Plan Assessment/Plan 1. Methamphetamine abuse. Continuing to monitor. Patient apparently has a long history of methamphetamine use. 2. Heart failure. Relatively mild. We will continue present treatments with mild diuresis. Monitoring lab. 3. History of bypass surgery as noted above. No reported chest pain. No acute ischemic changes on EKG. Troponin minimally elevated with a peak of 0.062. We will continue baseline medications. 4. Severe peripheral vascular disease. History of bypass surgery as well as a procedure earlier this year with balloon angioplasty. Patient is apparently followed by vascular surgery. 5. Hypertension. Continuing to monitor. 6. Hyperlipidemia. Will check lab. DIOGENES MARTINS MD Nov 14, 2020 14:44
[2020-11-14 15:00] VITALS: BP 132/83
[2020-11-14 19:00] VITALS: BP 128/84
[2020-11-14] MEDS: INSULIN GLARGINE SYRINGE. SQ SCH (21:05)
[2020-11-14] MEDS: ATORVASTATIN CALCIUM 40 MG TABLET. PO SCH (21:05)
[2020-11-14 23:05] VITALS: BP 132/86
[2020-11-15 03:06] VITALS: BP 122/73
[2020-11-15 07:00] VITALS: BP 125/83
[2020-11-15 07:21] LABS: BASO # 0.1 x10^3/uL (0.0-0.2); BASO % 1 % (0-3); EOS # 0.1 x10^3/uL (0.0-0.7); EOS % 2 % (0-3); HEMATOCRIT 33.3 % (39.0-53.0); HEMOGLOBIN 9.9 g/dL (13.0-17.5); LYMPH # 1.5 x10^3/uL (1.0-4.8); LYMPH % 19 % (24-48); MEAN CORPUSCULAR HEMOGLOBIN 20 pg (25-35); MEAN CORPUSCULAR HGB CONC 30 g/dL (31-37); MEAN CORPUSCULAR VOLUME 67 fL (79-100); MONO # 1.1 x10^3/uL (0.0-1.1); MONO % 15 % (0-9); NEUT # 4.9 x10^3/uL (1.8-7.7); NEUT % 64 % (31-73); PLATELET COUNT 350 x10^3/uL (140-400); RED BLOOD COUNT 4.96 x10^6/uL (4.30-5.70); RED CELL DISTRIBUTION WIDTH 22.1 % (11.5-14.5); WHITE BLOOD COUNT 7.7 x10^3/uL (4.0-11.0)
[2020-11-15 07:41] LABS: CALCIUM 8.7 mg/dL (8.5-10.1); CREATININE 1.1 mg/dL (0.7-1.3); GFR 67.2; MAGNESIUM 2.4 mg/dL (1.8-2.4); PHOSPHORUS 4.1 mg/dL (2.6-4.7); POTASSIUM 3.8 mmol/L (3.5-5.1)
[2020-11-15 07:56] LABS: CHOLESTEROL/HDL RATIO 5.5
[2020-11-15] MEDS: INSULIN LISPRO 300 UNITS/3 ML VIAL. SQ SCH ×3 (08:00→18:39)
[2020-11-15] MEDS: CLOPIDOGREL BISULFATE 75 MG TABLET PO SCH (09:12)
[2020-11-15] MEDS: APIXABAN 5 MG TABLET. PO SCH ×2 (09:12→20:56)
[2020-11-15] MEDS: GABAPENTIN 300 MG CAPSULE. PO SCH ×3 (09:13→20:59)
[2020-11-15] MEDS: PANTOPRAZOLE 40 MG TABLET.DR. PO SCH (09:13)
[2020-11-15] MEDS: METOPROLOL TART IMMED RELEASE 50 MG TABLET. PO SCH (09:13)
[2020-11-15] MEDS: AMIODARONE HCL 200 MG TABLET. PO SCH (09:13)
[2020-11-15 11:00] VITALS: BP 146/99
--- NOTE | 2020-11-15 11:05 | NUR ---
SW following. Discussed with RN, pt from home, room air, ada diet, COVID-19 negative. Cardiology following. PAT consulted for meth use/abuse - pt not appropriate to be seen at this time. SW will continue to follow.
--- NOTE | 2020-11-15 11:06 | PDOC ---
[facility] PROGRESS NOTE Date of Service DOS: DATE: 11/15/20 TIME: 10:53 Chief Complaint Chief Complaint Acute on chronic CHF exacerbation, last echocardiogram with LVEF of 40 to 45% on January 2020 Elevated BNP, chest x-ray not showing cardiomegaly or volume overload Elevated troponins likely due to type II demand ischemia, secondary to methamphetamine use Microcytic anemia Methamphetamine positivity Methamphetamine abuse Moderate protein malnutrition History of CABG History of diabetes mellitus type 2 History of DVT Dyslipidemia History of hypertension History of femoral bypass and stenting Admit to hospitalist service for further management Cardiology consult Continue telemetry monitoring Trend troponins Will consider diuresis depending on physical exam Lovenox for DVT prophylaxis Protonix GI prophylaxis ADA diet CODE STATUS full Discussed with RN and SW Disposition inpatient management as above DPOA: Undesignated History of Present Illness History of Present Illness History obtained from discussion with the ED physician and chart review: 65-year-old male presenting for multiple symptoms. Was here 24 hours ago and had formal work-up, he was positive for methamphetamine at that time and subsequently discharged home after no emergent and/or surgical findings were found. Reports he went home and drank a lot of water but states he has been short of breath, had episodes of presyncope, has had intermittent episodes of nonbloody stools that are softer than usual, and insomnia. Denies any recent meth abuse, states he last used over a month ago. No fever, URI symptoms, chest pain, ripping or tearing sensation in chest, productive cough, abdominal pain, bladder or bowel incontinence, changes in motor or sensory urinary function 11/15/2020: Afebrile. Echocardiogram pending. Troponin slightly elevated but stable. Recent echocardiogram from August 2020 showed basal inferior and posterior wall hypokinesis with EF estimated at 60%. We will resume home lisinopril. Appreciate cardiology recommendations on the management of this pat ient. May discharge today barring their recommendations. Patient states he has home health set up already, but feels like he might benefit from further rehab. Will order PT/OT. Vitals/I&O Vitals/I&O: Vital Signs Date Time Temp Pulse Resp B/P (MAP) Pulse Ox O2 Delivery O2 Flow Rate FiO2 11/15/20 09:13 129 125/83 11/15/20 07:00 96.9 22 98 Room Air 96.9 I & O 11/14/20 11/14/20 11/15/20 15:00 23:00 07:00 Intake Total 480 ml 240 ml Balance 480 ml 240 ml Physical Exam General: Alert, No acute distress Heart: Other (Irregularly irregular) Lungs: Clear Abdomen: Normal bowel sounds, No tenderness Extremities: No clubbing, No cyanosis Skin: No rashes, No breakdown Labs Labs: Laboratory Tests Test 11/14/20 12:40 11/14/20 17:12 11/14/20 20:45 11/15/20 05:45 Glucose (Fingerstick) 193 mg/dL (70-99) 184 mg/dL (70-99) 201 mg/dL (70-99) White Blood Count 7.7 x10^3/uL (4.0-11.0) Red Blood Count 4.96 x10^6/uL (4.30-5.70) Hemoglobin 9.9 g/dL (13.0-17.5) Hematocrit 33.3 % (39.0-53.0) Mean Corpuscular Volume 67 fL (79-100) Mean Corpuscular Hemoglobin 20 pg (25-35) Mean Corpuscular Hemoglobin Concent 30 g/dL (31-37) Red Cell Distribution Width 22.1 % (11.5-14.5) Platelet Count 350 x10^3/uL (140-400) Neutrophils (%) (Auto) 64 % (31-73) Lymphocytes (%) (Auto) 19 % (24-48) Monocytes (%) (Auto) 15 % (0-9) Eosinophils (%) (Auto) 2 % (0-3) Basophils (%) (Auto) 1 % (0-3) Neutrophils # (Auto) 4.9 x10^3/uL (1.8-7.7) Lymphocytes # (Auto) 1.5 x10^3/uL (1.0-4.8) Monocytes # (Auto) 1.1 x10^3/uL (0.0-1.1) Eosinophils # (Auto) 0.1 x10^3/uL (0.0-0.7) Basophils # (Auto) 0.1 x10^3/uL (0.0-0.2) Sodium Level 139 mmol/L (136-145) Potassium Level 3.8 mmol/L (3.5-5.1) Chloride Level 104 mmol/L (98-107) Carbon Dioxide Level 24 mmol/L (21-32) Anion Gap 11 (6-14) Blood Urea Nitrogen 23 mg/dL (8-26) Creatinine 1.1 mg/dL (0.7-1.3) Estimated GFR (Cockcroft-Gault) 67.2 Glucose Level 108 mg/dL (70-99) Calcium Level 8.7 mg/dL (8.5-10.1) Phosphorus Level 4.1 mg/dL (2.6-4.7) Magnesium Level 2.4 mg/dL (1.8-2.4) Triglycerides Level 99 mg/dL (0-150) Cholesterol Level 116 mg/dL (0-200) LDL Cholesterol, Calculated 75 mg/dL (0-100) VLDL Cholesterol, Calculated 20 mg/dL (0-40) Non-HDL Cholesterol Calculated 95 mg/dL (0-129) HDL Cholesterol 21 mg/dL (40-60) Cholesterol/HDL Ratio 5.5 Test 11/15/20 07:55 Glucose (Fingerstick) 115 mg/dL (70-99) Assessment and Plan Assessmemt and Plan Problems Medical Problems: (1) Elevated troponin Status: Acute (2) Methamphetamine abuse Status: Acute Comment Review of Relevant I have reviewed the following items rachel (where applicable) has been applied. Medications: Current Medications Medications (Trade) Dose Ordered Sig/Lizzeth Route PRN Reason Start Time Stop Time Status Last Admin Dose Admin Pantoprazole Sodium (Protonix) 40 mg DAILYAC PO 11/14/20 11:30 11/15/20 09:13 Amiodarone HCl (Cordarone) 200 mg DAILY PO 11/14/20 13:00 11/15/20 09:13 Apixaban (Eliquis) 5 mg BID PO 11/14/20 13:00 11/15/20 09:12 Atorvastatin Calcium (Lipitor) 40 mg QHS PO 11/14/20 21:00 11/14/20 21:05 Clopidogrel Bisulfate (Plavix) 75 mg DAILY PO 11/14/20 13:00 11/15/20 09:12 Metoprolol Tartrate (Lopressor) 50 mg BID PO 11/14/20 13:00 11/15/20 09:13 Gabapentin (Neurontin) 300 mg TID PO 11/14/20 14:00 11/15/20 09:13 Insulin Human Lispro (HumaLOG) 10 units TIDWMEALS SQ 11/14/20 12:00 11/14/20 17:41 Insulin Glargine (Lantus Syringe) 55 unit QHS SQ 11/14/20 21:00 11/14/20 21:05 Justifications for Admission Other Justification Chest pain. BENITO OJEDA MD Nov 15, 2020 11:06
--- NOTE | 2020-11-15 11:37 | CARD ---
MR#: [id number] Date of Study: 11/15/2020 Ordering Physician: LAURO NGO, Referring Physician: LAURO NGO, Tech: Dwight Muniz [facility] APPROVED REPORT EXAM: Two-dimensional and M-mode echocardiogram with Doppler and color Doppler. Other Information Quality : AverageHR: 126bpm Rhythm : Tachycardia INDICATION Cardiac Disease: CAD NSTEMI RISK FACTORS Hypertension Hyperlipidemia Diabetes 2D DIMENSIONS Left Atrium(2D)4.6 (1.6-4.0cm)IVSd1.3 (0.7-1.1cm) Aortic Root(2D)3.7 (2.0-3.7cm)LVDd5.3 (3.9-5.9cm) PWd1.3 (0.7-1.1cm)LVDs4.4 (2.5-4.0cm) FS (%) 17.3 %SV48.7 ml Aortic Valve AoV Peak Krzysztof.115.1cm/sAoV VTI15.9cm AO Peak GR.5.3mmHgLVOT Peak Krzysztof.93.1cm/s AO Mean GR.3mmHg Mitral Valve MV E Yvfbhofb475.7cm/sMV E Peak Gr.9mmHg MV DECEL [id number] A Xqkwvszy32.7cm/s MV E Mean Gr.3mmHgE/A Ratio2.9 Pulmonary Valve PV Peak Pydsokwp35.4cm/s Tricuspid Valve TR P. [id number]/sTR Peak Gr.43mmHg Pulmonary Vein S1 Eomngrfn03.2cm/sD2 Bsyyprzi72.2cm/s LEFT VENTRICLE The Left Ventricle is mild to moderately dilated. There is mild concentric left ventricular hypertrop hy. LV systolic function is severely decreased. LV ejection fraction is estimated at 25% There is sev ere global hypokinesis of the left ventricle. No left ventricle thrombus noted on this study. There i s no ventricular septal defect visualized. There is no left ventricular aneurysm. There is no mass no lanette in the left ventricle. RIGHT VENTRICLE The right ventricle is normal size. There is normal right ventricular wall thickness. Systolic functi on is mildly reduced. TAPSE (10mm) ATRIA The left atrium is mildl to moderately dilated. The right atrium is mild to moderately dilated. The i nteratrial septum is intact with no evidence for an atrial septal defect or patent foramen ovale as n oted on 2-D or Doppler imaging. AORTIC VALVE The aortic valve is mildly sclerotic. Doppler and Color Flow revealed no significant aortic regurgita tion. There is no significant aortic valvular stenosis. There is no aortic valvular vegetation. MITRAL VALVE The mitral valve is thickened but opens well. There is no evidence of mitral valve prolapse. There is no mitral valve stenosis. Doppler and Color-flow revealed moderate mitral regurgitation. TRICUSPID VALVE The tricuspid valve leaflets are thickened , but open well. Doppler and Color Flow revealed moderate tricuspid regurgitation. The PA pressure was estimated at 50 mmHg. There is no tricuspid valve prolap se or vegetation. There is no tricuspid valve stenosis. PULMONIC VALVE The pulmonary valve is normal in structure and function. Doppler and Color Flow revealed no pulmonic valvular regurgitation. There is no pulmonic valvular stenosis. GREAT VESSELS The aortic root is normal in size. The ascending aorta is normal in size. The pulmonary artery is nor mal. The IVC is mildly dilated with blunted inspiratory response. PERICARDIAL EFFUSION There is no pleural effusion. There is no evidence of significant pericardial effusion. Critical Notification Critical Value: No <Conclusion> The Left Ventricle is mild to moderately dilated. LV systolic function is severely decreased. LV ejection fraction is estimated at 25% There is severe global hypokinesis of the left ventricle. There is mild concentric left ventricular hypertrophy. Doppler and Color Flow revealed no significant aortic regurgitation. There is no significant aortic valvular stenosis. Doppler and Color-flow revealed moderate mitral regurgitation. Doppler and Color Flow revealed moderate tricuspid regurgitation. The PA pressure was estimated at 50 mmHg. Signed by : Walter Valdivia MD Electronically Approved : 11/15/2020 11:36:50
--- NOTE | 2020-11-15 12:19 | PDOC ---
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 11/15/20 1219: CARDIO Progress Notes Date and Time Date of Service 11/15/20 Time of Evaluation 1210 Subjective Subjective: No Chest Pain, No Palpitations, Other (mild sOA) Vitals Vitals Vital Signs Date Time Temp Pulse Resp B/P (MAP) Pulse Ox O2 Delivery O2 Flow Rate FiO2 11/15/20 11:00 97.4 123 22 146/99 (115) 96 Room Air 97.4 Weight Weight [ ] Input and Output Intake and Output Intake and Output 11/15/20 07:00 Intake Total 720 ml Balance 720 ml Intake Oral 720 ml # Voids 2 Laboratory Labs Laboratory Tests Test 11/14/20 12:40 11/14/20 17:12 11/14/20 20:45 11/15/20 05:45 Glucose (Fingerstick) 193 mg/dL (70-99) 184 mg/dL (70-99) 201 mg/dL (70-99) White Blood Count 7.7 x10^3/uL (4.0-11.0) Red Blood Count 4.96 x10^6/uL (4.30-5.70) Hemoglobin 9.9 g/dL (13.0-17.5) Hematocrit 33.3 % (39.0-53.0) Mean Corpuscular Volume 67 fL (79-100) Mean Corpuscular Hemoglobin 20 pg (25-35) Mean Corpuscular Hemoglobin Concent 30 g/dL (31-37) Red Cell Distribution Width 22.1 % (11.5-14.5) Platelet Count 350 x10^3/uL (140-400) Neutrophils (%) (Auto) 64 % (31-73) Lymphocytes (%) (Auto) 19 % (24-48) Monocytes (%) (Auto) 15 % (0-9) Eosinophils (%) (Auto) 2 % (0-3) Basophils (%) (Auto) 1 % (0-3) Neutrophils # (Auto) 4.9 x10^3/uL (1.8-7.7) Lymphocytes # (Auto) 1.5 x10^3/uL (1.0-4.8) Monocytes # (Auto) 1.1 x10^3/uL (0.0-1.1) Eosinophils # (Auto) 0.1 x10^3/uL (0.0-0.7) Basophils # (Auto) 0.1 x10^3/uL (0.0-0.2) Sodium Level 139 mmol/L (136-145) Potassium Level 3.8 mmol/L (3.5-5.1) Chloride Level 104 mmol/L (98-107) Carbon Dioxide Level 24 mmol/L (21-32) Anion Gap 11 (6-14) Blood Urea Nitrogen 23 mg/dL (8-26) Creatinine 1.1 mg/dL (0.7-1.3) Estimated GFR (Cockcroft-Gault) 67.2 Glucose Level 108 mg/dL (70-99) Calcium Level 8.7 mg/dL (8.5-10.1) Phosphorus Level 4.1 mg/dL (2.6-4.7) Magnesium Level 2.4 mg/dL (1.8-2.4) Triglycerides Level 99 mg/dL (0-150) Cholesterol Level 116 mg/dL (0-200) LDL Cholesterol, Calculated 75 mg/dL (0-100) VLDL Cholesterol, Calculated 20 mg/dL (0-40) Non-HDL Cholesterol Calculated 95 mg/dL (0-129) HDL Cholesterol 21 mg/dL (40-60) Cholesterol/HDL Ratio 5.5 Test 11/15/20 07:55 Glucose (Fingerstick) 115 mg/dL (70-99) Physical Exam HEENT: Neck Supple W Full Motion Chest: Symmetric LUNGS: Other (diminished bases) Heart: irregularly irregular (a-flutter with intermittent RVR) Abdomen: Soft N/T Extremities: Other (trace bilateral LE edema ) Neurology: alert, oriented, follow commands Assessment Assessment 1. Dyspnea with mild acute on chronic diastolic/systolic CHF 2. Mild troponin elevation; peak 0.062. Most probably type II, demand ischemia. CP free 3. ICM: LVEF previously recovered with EF at 40-45% (02/07). Repeat echo this admission with EF 25% with severe global hypokinesis of the LV 4. Substance abuse; continues to use methamphetamines 5. CAD; past emergent CABG x2 08/13/2016 due to recurrent ISR, clinically stable 6. PAFIB/flutter; s/p previous CV. Presently a-flutter with elevated rate 7. Hypertension; controlled overall 8. Hyperlipidemia; statin 9. Diabetes, II 10. 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 On ACEi Lasix therapu Secondary prevention; continue Plavix. Eliquis for stroke prevention Discussed/encourage cessation from recreational drug use and importance of followup Consider AICD for primary prevention if compliance can be established Justicifation of Admission Dx: Justifications for Admission: Justification of Admission Dx: Yes PR: Acute NSTEMI JEFFREY PENA MD 11/15/20 1723: CARDIO Progress Notes Plan Plan The patient was seen and interviewed as well as examined at the bedside. The chart was reviewed. The case was discussed. Agree with the plan of care. RADHA MORELOS APRN Nov 15, 2020 12:19 JEFFREY PENA MD Nov 15, 2020 17:23
[2020-11-15 15:00] VITALS: BP 131/74
[2020-11-15] MEDS: TAMSULOSIN 0.4 MG CAP.ER.24H. PO SCH (15:21)
[2020-11-15] MEDS: LISINOPRIL 10 MG TABLET PO SCH (15:22)
[2020-11-15] MEDS ORDERED: DIGOXIN IV 500 MCG/2 ML AMPUL. IV ONE (16:30)
[2020-11-15] MEDS ORDERED: FUROSEMIDE 40 MG/4 ML VIAL. IVP ONE (16:30)
[2020-11-15] MEDS ORDERED: POTASSIUM CHLORIDE 20 MEQ TABLET.ER. PO ONE (16:30)
[2020-11-15 19:00] VITALS: BP 116/67
[2020-11-15] MEDS: ATORVASTATIN CALCIUM 40 MG TABLET. PO SCH (20:56)
[2020-11-15] MEDS ORDERED: METOPROLOL TART IMMED RELEASE 50 MG TABLET. PO ONE (21:00)
[2020-11-15] MEDS: INSULIN GLARGINE SYRINGE. SQ SCH (21:07)
[2020-11-15 23:00] VITALS: BP 107/71
[2020-11-16 02:47] VITALS: BP 101/63
[2020-11-16] MEDS: PANTOPRAZOLE 40 MG TABLET.DR. PO SCH ×2 (06:03→10:05)
[2020-11-16 07:00] VITALS: BP 110/57
[2020-11-16] MEDS: INSULIN LISPRO 300 UNITS/3 ML VIAL. SQ SCH ×3 (08:00→17:30)
[2020-11-16 08:11] LABS: BASO # 0.1 x10^3/uL (0.0-0.2); BASO % 1 % (0-3); EOS # 0.1 x10^3/uL (0.0-0.7); EOS % 2 % (0-3); HEMATOCRIT 32.6 % (39.0-53.0); HEMOGLOBIN 9.6 g/dL (13.0-17.5); LYMPH # 1.3 x10^3/uL (1.0-4.8); LYMPH % 21 % (24-48); MEAN CORPUSCULAR HEMOGLOBIN 20 pg (25-35); MEAN CORPUSCULAR HGB CONC 30 g/dL (31-37); MEAN CORPUSCULAR VOLUME 68 fL (79-100); MONO # 0.8 x10^3/uL (0.0-1.1); MONO % 13 % (0-9); NEUT # 3.9 x10^3/uL (1.8-7.7); NEUT % 62 % (31-73); PLATELET COUNT 325 x10^3/uL (140-400); RED BLOOD COUNT 4.78 x10^6/uL (4.30-5.70); RED CELL DISTRIBUTION WIDTH 22.1 % (11.5-14.5); WHITE BLOOD COUNT 6.2 x10^3/uL (4.0-11.0)
[2020-11-16 08:14] LABS: CALCIUM 8.6 mg/dL (8.5-10.1); MAGNESIUM 2.2 mg/dL (1.8-2.4); POTASSIUM 3.7 mmol/L (3.5-5.1)
[2020-11-16 09:39] LABS: HYPOCHROMIA MARKED; PLT ESTIMATE ADEQUATE (ADEQUATE)
[2020-11-16 09:40] LABS: ANISOCYTOSIS MOD; MICROCYTOSIS MOD; POLYCHROMASIA PRESENT
[2020-11-16] MEDS: APIXABAN 5 MG TABLET. PO SCH ×2 (10:03→20:55)
[2020-11-16] MEDS: GABAPENTIN 300 MG CAPSULE. PO SCH ×3 (10:03→20:55)
[2020-11-16] MEDS: METOPROLOL SUCC 24HR ER 100 MG TAB.ER.24H. PO SCH (10:04)
[2020-11-16] MEDS: LISINOPRIL 10 MG TABLET PO SCH (10:04)
[2020-11-16] MEDS: TAMSULOSIN 0.4 MG CAP.ER.24H. PO SCH (10:04)
[2020-11-16] MEDS: CLOPIDOGREL BISULFATE 75 MG TABLET PO SCH (10:05)
[2020-11-16] MEDS: AMIODARONE HCL 200 MG TABLET. PO SCH (10:05)
[2020-11-16 11:00] VITALS: BP 155/89
--- NOTE | 2020-11-16 13:06 | PDOC ---
RADHA MORELOS SCROLL SHEAR OPERATOR 11/16/20 1306: CARDIO Progress Notes Date and Time Date of Service 11/16/20 Time of Evaluation 1210 Subjective Subjective: No Chest Pain, No Palpitations, Other (sleepy, SOA better ) Vitals Vitals Vital Signs Date Time Temp Pulse Resp B/P (MAP) Pulse Ox O2 Delivery O2 Flow Rate FiO2 11/16/20 10:05 125 110/57 11/16/20 07:00 97.5 19 97 Room Air 97.5 Weight Weight [ ] Input and Output Intake and Output Intake and Output 11/16/20 06:59 Intake Total 1340 ml Balance 1340 ml Intake Oral 1340 ml Laboratory Labs Laboratory Tests Test 11/15/20 17:38 11/15/20 19:06 11/16/20 07:00 11/16/20 07:14 Glucose (Fingerstick) 149 mg/dL (70-99) 290 mg/dL (70-99) 117 mg/dL (70-99) White Blood Count 6.2 x10^3/uL (4.0-11.0) Red Blood Count 4.78 x10^6/uL (4.30-5.70) Hemoglobin 9.6 g/dL (13.0-17.5) Hematocrit 32.6 % (39.0-53.0) Mean Corpuscular Volume 68 fL (79-100) Mean Corpuscular Hemoglobin 20 pg (25-35) Mean Corpuscular Hemoglobin Concent 30 g/dL (31-37) Red Cell Distribution Width 22.1 % (11.5-14.5) Platelet Count 325 x10^3/uL (140-400) Neutrophils (%) (Auto) 62 % (31-73) Lymphocytes (%) (Auto) 21 % (24-48) Monocytes (%) (Auto) 13 % (0-9) Eosinophils (%) (Auto) 2 % (0-3) Basophils (%) (Auto) 1 % (0-3) Neutrophils # (Auto) 3.9 x10^3/uL (1.8-7.7) Lymphocytes # (Auto) 1.3 x10^3/uL (1.0-4.8) Monocytes # (Auto) 0.8 x10^3/uL (0.0-1.1) Eosinophils # (Auto) 0.1 x10^3/uL (0.0-0.7) Basophils # (Auto) 0.1 x10^3/uL (0.0-0.2) Platelet Estimate Adequate (ADEQUATE) Polychromasia Present Hypochromasia Marked Anisocytosis Mod Microcytosis Mod Sodium Level 138 mmol/L (136-145) Potassium Level 3.7 mmol/L (3.5-5.1) Chloride Level 104 mmol/L (98-107) Carbon Dioxide Level 28 mmol/L (21-32) Anion Gap 6 (6-14) Blood Urea Nitrogen 19 mg/dL (8-26) Creatinine 1.0 mg/dL (0.7-1.3) Estimated GFR (Cockcroft-Gault) 75.0 Glucose Level 103 mg/dL (70-99) Calcium Level 8.6 mg/dL (8.5-10.1) Magnesium Level 2.2 mg/dL (1.8-2.4) Test 11/16/20 11:30 Glucose (Fingerstick) 156 mg/dL (70-99) Physical Exam HEENT: Neck Supple W Full Motion Chest: Symmetric LUNGS: Other (diminished bases) Heart: irregularly irregular (a-flutter with intermittent RVR) Abdomen: Soft N/T Extremities: Other (trace bilateral LE edema ) Neurology: alert, oriented, follow commands Assessment Assessment 1. Dyspnea with mild acute on chronic diastolic/systolic CHF; improved s/p diuresis 2. Mild troponin elevation; peak 0.062. Most probably type II, demand ischemia. CP free 3. ICM: LVEF previously recovered with EF at 40-45% (02/07). Repeat echo this admission with EF 25% with severe global hypokinesis of the LV 4. Substance abuse; continues to use methamphetamines 5. CAD; past emergent CABG x2 08/13/2016 due to recurrent ISR, clinically stable 6. PAFIB/flutter; s/p previous CV. Presently a-flutter. Rate intermittent elevated despite increase in metoprolol 7. Hypertension; controlled overall 8. Hyperlipidemia; statin 9. Diabetes, II 10. 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 Add spironolactone Secondary prevention; continue Plavix. Eliquis for stroke prevention Discussed/encourage cessation from recreational drug use and importance of followup Consider initiation of Entresto and AICD for primary prevention if compliance c an be established Justicifation of Admission Dx: Justifications for Admission: Justification of Admission Dx: Yes NM: Acute NSTEMI JEFFREY PENA MD 11/16/20 1337: CARDIO Progress Notes Plan Plan The patient was seen and interviewed as well as examined at the bedside. The chart was reviewed. The case was discussed. Agree with the plan of care. RADHA MORELOS APRN Nov 16, 2020 13:06 JEFFREY PENA MD Nov 16, 2020 13:37
[2020-11-16] MEDS ORDERED: DIGOXIN IV 500 MCG/2 ML AMPUL. IV ONE (13:15)
[2020-11-16] MEDS ORDERED: POTASSIUM CHLORIDE 20 MEQ TABLET.ER. PO ONE (13:15)
[2020-11-16] MEDS: FUROSEMIDE 20 MG TABLET PO SCH (13:48)
[2020-11-16] MEDS: SPIRONOLACTONE 25 MG TABLET PO SCH (13:49)
[2020-11-16 15:00] VITALS: BP 125/86
--- NOTE | 2020-11-16 15:21 | NUR ---
Wound Care Patient is a [facility] patient. Wounds on BLE have scabbed and are not draining. WC will sign off at this time. Patient educated to call [facility] if they reopen.
--- NOTE | 2020-11-16 16:03 | PDOC ---
[facility] PROGRESS NOTE Date of Service DOS: DATE: 11/16/20 TIME: 15:58 Chief Complaint Chief Complaint Acute on chronic CHF exacerbation, last echocardiogram with LVEF of 40 to 45% on January 2020 Elevated BNP, chest x-ray not showing cardiomegaly or volume overload Elevated troponins likely due to type II demand ischemia, secondary to methamphetamine use Microcytic anemia Methamphetamine positivity Methamphetamine abuse Moderate protein malnutrition History of CABG History of diabetes mellitus type 2 History of DVT Dyslipidemia History of hypertension History of femoral bypass and stenting Admit to hospitalist service for further management Cardiology consult Continue telemetry monitoring Trend troponins Will consider diuresis depending on physical exam Lovenox for DVT prophylaxis Protonix GI prophylaxis ADA diet CODE STATUS full Discussed with RN and SW Disposition inpatient management as above DPOA: Undesignated History of Present Illness History of Present Illness History obtained from discussion with the ED physician and chart review: 65-year-old male presenting for multiple symptoms. Was here 24 hours ago and had formal work-up, he was positive for methamphetamine at that time and subsequently discharged home after no emergent and/or surgical findings were found. Reports he went home and drank a lot of water but states he has been short of breath, had episodes of presyncope, has had intermittent episodes of nonbloody stools that are softer than usual, and insomnia. Denies any recent meth abuse, states he last used over a month ago. No fever, URI symptoms, chest pain, ripping or tearing sensation in chest, productive cough, abdominal pain, bladder or bowel incontinence, changes in motor or sensory urinary function 11/15/2020: Afebrile. Echocardiogram pending. Troponin slightly elevated but stable. Recent echocardiogram from August 2020 showed basal inferior and posterior wall hypokinesis with EF estimated at 60%. We will resume home lisinopril. Appreciate cardiology recommendations on the management of this pat ient. May discharge today barring their recommendations. Patient states he has home health set up already, but feels like he might benefit from further rehab. Will order PT/OT. 11/16/2020: Patient seen resting comfortably in bed. Remains in a-flutter. Will follow cardiology recommendations; continue amiodarone and initiate digoxin for a-flutter. Possible cardioversion per cardiology if remains in a-flutter. Echocardiogram 11/15 showed mild to moderately dilated LV, with LV systolic function severely decreased, estimated EF 25%, PAP 50 mmHg. On Toprol-XL and lisinopril; spironolactone has been added. We will continue Plavix and Eliquis, per cardiology. On ACEi Lasix therapy. Add spironolactone Secondary prevention; continue Plavix. Eliquis for stroke prevention Vitals/I&O Vitals/I&O: Vital Signs Date Time Temp Pulse Resp B/P (MAP) Pulse Ox O2 Delivery O2 Flow Rate FiO2 11/16/20 13:48 102 11/16/20 11:00 97.8 17 155/89 (111) 97 Room Air 97.8 I & O 11/15/20 11/15/20 11/16/20 15:00 23:00 07:00 Intake Total 720 ml 500 ml 120 ml Balance 720 ml 500 ml 120 ml Physical Exam General: Alert, No acute distress Heart: Other (Irregularly irregular) Lungs: Clear Abdomen: Normal bowel sounds, No tenderness Extremities: No clubbing, No cyanosis Skin: No rashes, No breakdown Labs Labs: Laboratory Tests Test 11/15/20 17:38 11/15/20 19:06 11/16/20 07:00 11/16/20 07:14 Glucose (Fingerstick) 149 mg/dL (70-99) 290 mg/dL (70-99) 117 mg/dL (70-99) White Blood Count 6.2 x10^3/uL (4.0-11.0) Red Blood Count 4.78 x10^6/uL (4.30-5.70) Hemoglobin 9.6 g/dL (13.0-17.5) Hematocrit 32.6 % (39.0-53.0) Mean Corpuscular Volume 68 fL (79-100) Mean Corpuscular Hemoglobin 20 pg (25-35) Mean Corpuscular Hemoglobin Concent 30 g/dL (31-37) Red Cell Distribution Width 22.1 % (11.5-14.5) Platelet Count 325 x10^3/uL (140-400) Neutrophils (%) (Auto) 62 % (31-73) Lymphocytes (%) (Auto) 21 % (24-48) Monocytes (%) (Auto) 13 % (0-9) Eosinophils (%) (Auto) 2 % (0-3) Basophils (%) (Auto) 1 % (0-3) Neutrophils # (Auto) 3.9 x10^3/uL (1.8-7.7) Lymphocytes # (Auto) 1.3 x10^3/uL (1.0-4.8) Monocytes # (Auto) 0.8 x10^3/uL (0.0-1.1) Eosinophils # (Auto) 0.1 x10^3/uL (0.0-0.7) Basophils # (Auto) 0.1 x10^3/uL (0.0-0.2) Platelet Estimate Adequate (ADEQUATE) Polychromasia Present Hypochromasia Marked Anisocytosis Mod Microcytosis Mod Sodium Level 138 mmol/L (136-145) Potassium Level 3.7 mmol/L (3.5-5.1) Chloride Level 104 mmol/L (98-107) Carbon Dioxide Level 28 mmol/L (21-32) Anion Gap 6 (6-14) Blood Urea Nitrogen 19 mg/dL (8-26) Creatinine 1.0 mg/dL (0.7-1.3) Estimated GFR (Cockcroft-Gault) 75.0 Glucose Level 103 mg/dL (70-99) Calcium Level 8.6 mg/dL (8.5-10.1) Magnesium Level 2.2 mg/dL (1.8-2.4) Test 11/16/20 11:30 Glucose (Fingerstick) 156 mg/dL (70-99) Assessment and Plan Assessmemt and Plan Problems Medical Problems: (1) Elevated troponin Status: Acute (2) Methamphetamine abuse Status: Acute Comment Review of Relevant I have reviewed the following items rachel (where applicable) has been applied. Medications: Current Medications Medications (Trade) Dose Ordered Sig/Lizzeth Route PRN Reason Start Time Stop Time Status Last Admin Dose Admin Digoxin (Lanoxin) 500 mcg 1X ONCE IV 11/15/20 16:30 11/15/20 16:33 DC 11/15/20 18:34 Furosemide (Lasix) 40 mg 1X ONCE IVP 11/15/20 16:30 11/15/20 16:33 DC 11/15/20 18:32 Potassium Chloride (Klor-Con) 20 meq 1X ONCE PO 11/15/20 16:30 11/15/20 16:33 DC 11/15/20 18:34 Metoprolol Succinate (Toprol Xl) 150 mg DAILY PO 11/16/20 09:00 11/16/20 10:04 Metoprolol Tartrate (Lopressor) 75 mg 1X ONCE PO 11/15/20 21:00 11/15/20 21:01 DC 11/15/20 21:00 Furosemide (Lasix) 20 mg DAILY PO 11/16/20 13:15 11/16/20 13:48 Spironolactone (Aldactone) 25 mg DAILY PO 11/16/20 13:15 11/16/20 13:49 Potassium Chloride (Klor-Con) 20 meq 1X ONCE PO 11/16/20 13:15 11/16/20 13:16 DC 11/16/20 13:49 Digoxin (Lanoxin) 250 mcg 1X ONCE IV 11/16/20 13:15 11/16/20 13:16 DC 11/16/20 13:48 Justifications for Admission Other Justification Chest pain. BENITO OJEDA MD Nov 16, 2020 16:03
[2020-11-16 19:33] VITALS: BP 122/78
[2020-11-16] MEDS: ATORVASTATIN CALCIUM 40 MG TABLET. PO SCH (20:55)
[2020-11-16] MEDS: INSULIN GLARGINE SYRINGE. SQ SCH (21:01)
[2020-11-16 23:00] VITALS: BP 120/71
[2020-11-17 02:46] VITALS: BP 131/69
[2020-11-17 07:00] VITALS: BP 127/68
[2020-11-17] MEDS: INSULIN LISPRO 300 UNITS/3 ML VIAL. SQ SCH ×3 (08:00→17:22)
--- NOTE | 2020-11-17 08:14 | NUR ---
cardiac rhythm to afib. Hx of afib.
[2020-11-17 08:21] LABS: BASO # 0.1 x10^3/uL (0.0-0.2); BASO % 1 % (0-3); EOS # 0.2 x10^3/uL (0.0-0.7); EOS % 3 % (0-3); HEMATOCRIT 34.2 % (39.0-53.0); HEMOGLOBIN 10.1 g/dL (13.0-17.5); LYMPH # 1.3 x10^3/uL (1.0-4.8); LYMPH % 21 % (24-48); MEAN CORPUSCULAR HEMOGLOBIN 20 pg (25-35); MEAN CORPUSCULAR HGB CONC 30 g/dL (31-37); MEAN CORPUSCULAR VOLUME 67 fL (79-100); MONO # 0.7 x10^3/uL (0.0-1.1); MONO % 12 % (0-9); NEUT # 3.9 x10^3/uL (1.8-7.7); NEUT % 63 % (31-73); PLATELET COUNT 367 x10^3/uL (140-400); RED BLOOD COUNT 5.09 x10^6/uL (4.30-5.70); RED CELL DISTRIBUTION WIDTH 21.8 % (11.5-14.5); WHITE BLOOD COUNT 6.2 x10^3/uL (4.0-11.0)
[2020-11-17 08:46] LABS: CALCIUM 8.3 mg/dL (8.5-10.1); POTASSIUM 3.9 mmol/L (3.5-5.1)
--- NOTE | 2020-11-17 09:31 | PDOC2 ---
CONSULT Date of Service Date of Service DATE: 11/17/20 TIME: 09:00 Reason for Consult Reason for Consult: stenosis, recent bypass graft Referring Physician Referring Physician: Dr. Castillo Identification/Chief Complaint Chief Complaint Shortness of breath, intermittent burning and tingling pain in feet Source Source: Chart review, Patient History of Present Illness Reason for Visit: The patient is a 65-year-old male who was admitted from the emergency room for episodes of increasing shortness of breath and dizziness. His methamphetamine screen was positive and he had elevated troponins. He was evaluated by Cardiology and was also found to be in atrial flutter. The patient's friend called our office recommending that we see the patient while he is hospital with concerns of a occluded bypass. He has a long history of peripheral arterial disease with bilateral lower extremity bypass grafts. He has a known occluded right lower extremity bypass graft. He underwent successful percutaneous intervention to his left femoral to distal popliteal bypass in August 2020. Recent ultrasound performed this month in our office demonstrated patent left leg bypass. In addition he has doppler signal in bilateral feet. The patient complains of intermittent "burning, tingling pain" in his feet. He has a history of neuropathy and takes Gabapentin. He has a few small scabs on multiple toes, no obvious necrotic ulceration or infection. He does complain of calf claudication but denies rest pain. He has large areas of callous on the plantar surface of his feet and wears flip flops to walk. Past Medical History Cardiovascular: CAD, CHF, HTN, PR, Hyperlipidemia, Other (peripheral arterial disease) Pulmonary: No pertinent hx, COPD CENTRAL NERVOUS SYSTEM: Other GI: No pertinent hx Heme/Onc: No pertinent hx Hepatobiliary: No pertinent hx Psych: No pertinent hx Musculoskeletal: Osteoarthritis Rheumatologic: No pertinent hx Infectious disease: No pertinent hx Renal/: No pertinent hx Endocrine: Diabetes Past Surgical History Past Surgical History: CABG, Other (bilateral lower extremity bypass grafts) Family History Family History: Heart Disease Social History ALCOHOL: none Drugs: Crystal meth Lives: with Family Current Problem List Problem List Problems Medical Problems: (1) Elevated troponin Status: Acute (2) Methamphetamine abuse Status: Acute Current Medications Current Medications Current Medications Sodium Chloride 1,000 ml @ 1,000 mls/hr 1X ONCE IV Last administered on 11/14/20at 01:31; Start 11/14/20 at 02:00; Stop 11/14/20 at 02:59; Status DC Aspirin (Aspirin Chewable) 324 mg 1X ONCE PO Last administered on 11/14/20at 03:59; Start 11/14/20 at 03:30; Stop 11/14/20 at 03:31; Status DC Acetaminophen (Tylenol) 650 mg PRN Q4HRS PRN PO FEVER > 100.3'F; Start 11/14/20 at 02:45; Stop 11/15/20 at 02:44; Status DC Nitroglycerin (Nitrostat) 0.4 mg PRN Q5MIN PRN SL CHEST PAIN; Start 11/14/20 at 02:45; Stop 11/15/20 at 02:44; Status DC Sennosides (Senna) 17.2 mg PRN BID PRN PO CONSTIPATION; Start 11/14/20 at 09:15 Docusate Sodium (Colace) 100 mg PRN DAILY PRN PO HARD STOOLS Last administered on 11/15/20at 09:13; Start 11/14/20 at 09:15 Ondansetron HCl (Zofran) 4 mg PRN Q6HRS PRN IVP NAUSEA/VOMITING; Start 11/14/20 at 09:15 Dextrose (Dextrose 50%-Water Syringe) 12.5 gm PRN Q15MIN PRN IV SEE COMMENTS; Start 11/14/20 at 09:15 Acetaminophen (Tylenol) 650 mg PRN Q4HRS PRN PO TEMP OVER 100.4F OR MILD PAIN; Start 11/14/20 at 09:15 Enoxaparin Sodium (Lovenox 40mg Syringe) 40 mg Q24H SQ ; Start 11/14/20 at 10:00; Stop 11/14/20 at 11:57; Status DC Pantoprazole Sodium (Protonix) 40 mg DAILYAC PO Last administered on 11/16/20at 10:05; Start 11/14/20 at 11:30 Prochlorperazine Edisylate (Compazine) 10 mg PRN Q6HRS PRN IV NAUSEA/VOMITING, 2ND CHOICE; Start 11/14/20 at 09:15 Amiodarone HCl (Cordarone) 200 mg DAILY PO Last administered on 11/16/20at 10:05; Start 11/14/20 at 13:00 Apixaban (Eliquis) 5 mg BID PO Last administered on 11/16/20 20:55; Start 11/14/20 at 13:00 Atorvastatin Calcium (Lipitor) 40 mg QHS PO Last administered on 11/16/20at 20:55; Start 11/14/20 at 21:00 Clopidogrel Bisulfate (Plavix) 75 mg DAILY PO Last administered on 11/16/20at 10:05; Start 11/14/20 at 13:00 Metoprolol Tartrate (Lopressor) 50 mg BID PO Last administered on 11/15/20at 09:13; Start 11/14/20 at 13:00; Stop 11/15/20 at 17:03; Status DC Gabapentin (Neurontin) 300 mg TID PO Last administered on 11/16/20 20:55; Start 11/14/20 at 14:00 Insulin Human Lispro (HumaLOG) 10 units TIDWMEALS SQ Last administered on 11/16/20 17:30; Start 11/14/20 at 12:00 Insulin Glargine (Lantus Syringe) 55 unit QHS SQ Last administered on 11/16/20at 21:01; Start 11/14/20 at 21:00 Tamsulosin HCl (Flomax) 0.4 mg DAILY PO Last administered on 11/16/20 10:04; Start 11/15/20 at 14:00 Lisinopril (Prinivil) 10 mg DAILY PO Last administered on 11/16/20 10:04; Start 11/15/20 at 14:00 Digoxin (Lanoxin) 500 mcg 1X ONCE IV Last administered on 11/15/20 18:34; Start 11/15/20 at 16:30; Stop 11/15/20 at 16:33; Status DC Furosemide (Lasix) 40 mg 1X ONCE IVP Last administered on 11/15/20 18:32; Start 11/15/20 at 16:30; Stop 11/15/20 at 16:33; Status DC Potassium Chloride (Klor-Con) 20 meq 1X ONCE PO Last administered on 11/15/20at 18:34; Start 11/15/20 at 16:30; Stop 11/15/20 at 16:33; Status DC Metoprolol Succinate (Toprol Xl) 150 mg DAILY PO Last administered on 11/16/20at 10:04; Start 11/16/20 at 09:00 Metoprolol Tartrate (Lopressor) 75 mg 1X ONCE PO Last administered on 11/15/20at 21:00; Start 11/15/20 at 21:00; Stop 11/15/20 at 21:01; Status DC Furosemide (Lasix) 20 mg DAILY PO Last administered on 11/16/20at 13:48; Start 11/16/20 at 13:15 Spironolactone (Aldactone) 25 mg DAILY PO Last administered on 11/16/20at 13:49; Start 11/16/20 at 13:15 Potassium Chloride (Klor-Con) 20 meq 1X ONCE PO Last administered on 11/16/20at 13:49; Start 11/16/20 at 13:15; Stop 11/16/20 at 13:16; Status DC Digoxin (Lanoxin) 250 mcg 1X ONCE IV Last administered on 11/16/20at 13:48; Start 11/16/20 at 13:15; Stop 11/16/20 at 13:16; Status DC Active Scripts Active Amiodarone Hcl 200 Mg Tablet 200 Mg PO DAILY 30 Days Levemir (Insulin Detemir) 100 Unit/1 Ml Vial 55 Unit SQ QHS 30 Days Clopidogrel (Clopidogrel Bisulfate) 75 Mg Tablet 1 Tab PO DAILY Atorvastatin Calcium 40 Mg Tablet 40 Mg PO QHS 30 Days Reported Gabapentin 600 Mg Tablet 300 Mg PO TID Metoprolol Tartrate 50 Mg Tablet 1 Tab PO BID Potassium Citrate Er (Potassium Citrate) 15 Meq Tablet.er 20 Meq PO BIDWMEALS Furosemide 80 Mg Tablet 1 Tab PO DAILY Lisinopril 10 Mg Tablet 1 Tab PO DAILY Doxycycline Hyclate 100 Mg Capsule 1 Cap PO BID 10 Days [gentamicin] 0.1 % TP DAILY Metformin Hcl 1,000 Mg Tablet 1,000 Mg PO BIDWMEALS Novolog Flexpen (Insulin Aspart) 100 Unit/1 Ml Insuln.pen 10 Unit SQ TIDWMEALS Eliquis (Apixaban) 5 Mg Tablet 5 Mg PO BID Allergies Allergies: Coded Allergies: No Known Drug Allergies (Unverified , 02/27/17) ROS Review of System Constitutional: Denies fever or chills Eyes: Denies any visual disturbances HENT: Denies nasal congestion or sore throat Respiratory: Mild improvement in shortness of breath. Cardiovascular: Denies any palpitations or chest pain GI: Denies abdominal pain, nausea, vomiting, bloody stools or diarrhea : Denies dysuria or hematuria Musculoskeletal: As per HPI Integument: As per HPI Neurologic: No gross deficits, peripheral neuropathy Endocrine: Diabetes Psychiatric: Denies Depression or Anxiety Physical Exam Physical Exam General: Alert and oriented X3 HEENT: Atraumatic, Pupils equal, round. Mucous membranes moist. Neck: Supple no lymphadenopathy Cardiac: Heart rate regular. Normal carotid pulses. Lungs: Non-labored respirations. Abdomen: Obese, soft, nontender, nondistended, no palpable masses. Extremities: 2+ radial pulse. 2+ palpable femoral pulses. 2+ left lower leg graft pulse, biphasic PT and DP pulse. Monophasic right DP pulse. Musculoskeletal: Gait steady. Moving all extremities. Skin: Feet warm, mild dependent rubor, plantar surface unclean, large areas of callous, small scabs on multiple toes, no drainage or necrotic ulcerations. Mild tenderness bilateral toes. Neurological: Motor and sensation intact. Psychiatry: No depression or anxiety Vitals VITALS Vital Signs Date Time Temp Pulse Resp B/P (MAP) Pulse Ox O2 Delivery O2 Flow Rate FiO2 11/17/20 07:00 98.5 93 18 127/68 (87) 96 Room Air 98.5 Labs Labs Laboratory Tests Test 11/15/20 12:11 11/15/20 17:38 11/15/20 19:06 11/16/20 07:00 Glucose (Fingerstick) 135 mg/dL (70-99) 149 mg/dL (70-99) 290 mg/dL (70-99) White Blood Count 6.2 x10^3/uL (4.0-11.0) Red Blood Count 4.78 x10^6/uL (4.30-5.70) Hemoglobin 9.6 g/dL (13.0-17.5) Hematocrit 32.6 % (39.0-53.0) Mean Corpuscular Volume 68 fL (79-100) Mean Corpuscular Hemoglobin 20 pg (25-35) Mean Corpuscular Hemoglobin Concent 30 g/dL (31-37) Red Cell Distribution Width 22.1 % (11.5-14.5) Platelet Count 325 x10^3/uL (140-400) Neutrophils (%) (Auto) 62 % (31-73) Lymphocytes (%) (Auto) 21 % (24-48) Monocytes (%) (Auto) 13 % (0-9) Eosinophils (%) (Auto) 2 % (0-3) Basophils (%) (Auto) 1 % (0-3) Neutrophils # (Auto) 3.9 x10^3/uL (1.8-7.7) Lymphocytes # (Auto) 1.3 x10^3/uL (1.0-4.8) Monocytes # (Auto) 0.8 x10^3/uL (0.0-1.1) Eosinophils # (Auto) 0.1 x10^3/uL (0.0-0.7) Basophils # (Auto) 0.1 x10^3/uL (0.0-0.2) Platelet Estimate Adequate (ADEQUATE) Polychromasia Present Hypochromasia Marked Anisocytosis Mod Microcytosis Mod Sodium Level 138 mmol/L (136-145) Potassium Level 3.7 mmol/L (3.5-5.1) Chloride Level 104 mmol/L (98-107) Carbon Dioxide Level 28 mmol/L (21-32) Anion Gap 6 (6-14) Blood Urea Nitrogen 19 mg/dL (8-26) Creatinine 1.0 mg/dL (0.7-1.3) Estimated GFR (Cockcroft-Gault) 75.0 Glucose Level 103 mg/dL (70-99) Calcium Level 8.6 mg/dL (8.5-10.1) Magnesium Level 2.2 mg/dL (1.8-2.4) Test 11/16/20 07:14 11/16/20 11:30 11/16/20 17:03 11/16/20 20:39 Glucose (Fingerstick) 117 mg/dL (70-99) 156 mg/dL (70-99) 164 mg/dL (70-99) 166 mg/dL (70-99) Test 11/17/20 02:42 11/17/20 07:25 11/17/20 07:36 Glucose (Fingerstick) 220 mg/dL (70-99) 145 mg/dL (70-99) White Blood Count 6.2 x10^3/uL (4.0-11.0) Red Blood Count 5.09 x10^6/uL (4.30-5.70) Hemoglobin 10.1 g/dL (13.0-17.5) Hematocrit 34.2 % (39.0-53.0) Mean Corpuscular Volume 67 fL (79-100) Mean Corpuscular Hemoglobin 20 pg (25-35) Mean Corpuscular Hemoglobin Concent 30 g/dL (31-37) Red Cell Distribution Width 21.8 % (11.5-14.5) Platelet Count 367 x10^3/uL (140-400) Neutrophils (%) (Auto) 63 % (31-73) Lymphocytes (%) (Auto) 21 % (24-48) Monocytes (%) (Auto) 12 % (0-9) Eosinophils (%) (Auto) 3 % (0-3) Basophils (%) (Auto) 1 % (0-3) Neutrophils # (Auto) 3.9 x10^3/uL (1.8-7.7) Lymphocytes # (Auto) 1.3 x10^3/uL (1.0-4.8) Monocytes # (Auto) 0.7 x10^3/uL (0.0-1.1) Eosinophils # (Auto) 0.2 x10^3/uL (0.0-0.7) Basophils # (Auto) 0.1 x10^3/uL (0.0-0.2) Sodium Level 137 mmol/L (136-145) Potassium Level 3.9 mmol/L (3.5-5.1) Chloride Level 104 mmol/L (98-107) Carbon Dioxide Level 25 mmol/L (21-32) Anion Gap 8 (6-14) Blood Urea Nitrogen 15 mg/dL (8-26) Creatinine 1.0 mg/dL (0.7-1.3) Estimated GFR (Cockcroft-Gault) 75.0 Glucose Level 147 mg/dL (70-99) Calcium Level 8.3 mg/dL (8.5-10.1) Magnesium Level 2.0 mg/dL (1.8-2.4) Laboratory Tests Test 11/16/20 11:30 11/16/20 17:03 11/16/20 20:39 11/17/20 02:42 Glucose (Fingerstick) 156 mg/dL (70-99) 164 mg/dL (70-99) 166 mg/dL (70-99) 220 mg/dL (70-99) Test 11/17/20 07:25 11/17/20 07:36 White Blood Count 6.2 x10^3/uL (4.0-11.0) Red Blood Count 5.09 x10^6/uL (4.30-5.70) Hemoglobin 10.1 g/dL (13.0-17.5) Hematocrit 34.2 % (39.0-53.0) Mean Corpuscular Volume 67 fL (79-100) Mean Corpuscular Hemoglobin 20 pg (25-35) Mean Corpuscular Hemoglobin Concent 30 g/dL (31-37) Red Cell Distribution Width 21.8 % (11.5-14.5) Platelet Count 367 x10^3/uL (140-400) Neutrophils (%) (Auto) 63 % (31-73) Lymphocytes (%) (Auto) 21 % (24-48) Monocytes (%) (Auto) 12 % (0-9) Eosinophils (%) (Auto) 3 % (0-3) Basophils (%) (Auto) 1 % (0-3) Neutrophils # (Auto) 3.9 x10^3/uL (1.8-7.7) Lymphocytes # (Auto) 1.3 x10^3/uL (1.0-4.8) Monocytes # (Auto) 0.7 x10^3/uL (0.0-1.1) Eosinophils # (Auto) 0.2 x10^3/uL (0.0-0.7) Basophils # (Auto) 0.1 x10^3/uL (0.0-0.2) Sodium Level 137 mmol/L (136-145) Potassium Level 3.9 mmol/L (3.5-5.1) Chloride Level 104 mmol/L (98-107) Carbon Dioxide Level 25 mmol/L (21-32) Anion Gap 8 (6-14) Blood Urea Nitrogen 15 mg/dL (8-26) Creatinine 1.0 mg/dL (0.7-1.3) Estimated GFR (Cockcroft-Gault) 75.0 Glucose Level 147 mg/dL (70-99) Calcium Level 8.3 mg/dL (8.5-10.1) Magnesium Level 2.0 mg/dL (1.8-2.4) Glucose (Fingerstick) 145 mg/dL (70-99) Assessment/Plan Assessment/Plan 65 year old male with peripheral arterial disease and right lower extremity c laudication, diabetes and neuropathy. He has several areas of dry eschar on his proximal toes without evidence of necrosis or infection. By examination he has a patent left lower extremity bypass. Patient denies rest pain. He reports his pain is similar in both feet and is burning in nature suggesting neuropathic pain. I discussed history and physical examination with Dr. Bañuelos, he has stable lower extremity claudication without rest pain or ulceration. Recommend following his recovery from this hospitalization that he follow up as an outpatient for further evaluation. Continue daily plavix. I also discussed with him the need to clean and moisturize he feet daily and obtain diabetic foot wear. In addition recommend daily walking program. If he continues to have worsening pain in his right leg or rest pain, he will need further evaluation of his arterial flow. Thank you for the opportunity to provide care for this patient. JOSE F BAUMAN APRN Nov 17, 2020 09:31
[2020-11-17 10:55] VITALS: BP 136/73
[2020-11-17] MEDS: FUROSEMIDE 20 MG TABLET PO SCH (11:05)
[2020-11-17] MEDS: SPIRONOLACTONE 25 MG TABLET PO SCH (11:05)
[2020-11-17] MEDS: CLOPIDOGREL BISULFATE 75 MG TABLET PO SCH (11:05)
[2020-11-17] MEDS: TAMSULOSIN 0.4 MG CAP.ER.24H. PO SCH (11:06)
[2020-11-17] MEDS: APIXABAN 5 MG TABLET. PO SCH (11:06)
[2020-11-17] MEDS: METOPROLOL SUCC 24HR ER 100 MG TAB.ER.24H. PO SCH (11:06)
[2020-11-17] MEDS: LISINOPRIL 10 MG TABLET PO SCH (11:06)
[2020-11-17] MEDS: AMIODARONE HCL 200 MG TABLET. PO SCH (11:07)
[2020-11-17] MEDS: GABAPENTIN 300 MG CAPSULE. PO SCH ×2 (11:07→17:18)
--- NOTE | 2020-11-17 11:40 | PDOC ---
RADHA MORELOS [employer] 11/17/20 1140: CARDIO Progress Notes Date and Time Date of Service 11/17/20 Time of Evaluation 1130 Subjective Subjective: No Chest Pain, No shortness of breath, No Palpitations Vitals Vitals Vital Signs Date Time Temp Pulse Resp B/P (MAP) Pulse Ox O2 Delivery O2 Flow Rate FiO2 11/17/20 11:07 93 136/73 11/17/20 10:55 98.2 16 96 Room Air 98.2 Weight Weight [ ] Input and Output Intake and Output Intake and Output 11/17/20 07:00 Intake Total 360 ml Balance 360 ml Intake Oral 360 ml # Voids 2 Laboratory Labs Laboratory Tests Test 11/16/20 17:03 11/16/20 20:39 11/17/20 02:42 11/17/20 07:25 Glucose (Fingerstick) 164 mg/dL (70-99) 166 mg/dL (70-99) 220 mg/dL (70-99) White Blood Count 6.2 x10^3/uL (4.0-11.0) Red Blood Count 5.09 x10^6/uL (4.30-5.70) Hemoglobin 10.1 g/dL (13.0-17.5) Hematocrit 34.2 % (39.0-53.0) Mean Corpuscular Volume 67 fL (79-100) Mean Corpuscular Hemoglobin 20 pg (25-35) Mean Corpuscular Hemoglobin Concent 30 g/dL (31-37) Red Cell Distribution Width 21.8 % (11.5-14.5) Platelet Count 367 x10^3/uL (140-400) Neutrophils (%) (Auto) 63 % (31-73) Lymphocytes (%) (Auto) 21 % (24-48) Monocytes (%) (Auto) 12 % (0-9) Eosinophils (%) (Auto) 3 % (0-3) Basophils (%) (Auto) 1 % (0-3) Neutrophils # (Auto) 3.9 x10^3/uL (1.8-7.7) Lymphocytes # (Auto) 1.3 x10^3/uL (1.0-4.8) Monocytes # (Auto) 0.7 x10^3/uL (0.0-1.1) Eosinophils # (Auto) 0.2 x10^3/uL (0.0-0.7) Basophils # (Auto) 0.1 x10^3/uL (0.0-0.2) Sodium Level 137 mmol/L (136-145) Potassium Level 3.9 mmol/L (3.5-5.1) Chloride Level 104 mmol/L (98-107) Carbon Dioxide Level 25 mmol/L (21-32) Anion Gap 8 (6-14) Blood Urea Nitrogen 15 mg/dL (8-26) Creatinine 1.0 mg/dL (0.7-1.3) Estimated GFR (Cockcroft-Gault) 75.0 Glucose Level 147 mg/dL (70-99) Calcium Level 8.3 mg/dL (8.5-10.1) Magnesium Level 2.0 mg/dL (1.8-2.4) Test 11/17/20 07:36 11/17/20 11:33 Glucose (Fingerstick) 145 mg/dL (70-99) 194 mg/dL (70-99) Physical Exam HEENT: Neck Supple W Full Motion Chest: Symmetric LUNGS: Other (diminished bases) Heart: irregularly irregular (a-flutter, rate mostly controlled ) Abdomen: Soft N/T Extremities: No Edema Neurology: alert, oriented, follow commands Assessment Assessment 1. Dyspnea with mild acute on chronic diastolic/systolic CHF; improved s/p diuresis 2. Mild troponin elevation; peak 0.062. Most probably type II, demand ischemia. CP free 3. ICM: LVEF previously recovered with EF at 40-45% (02/07). Repeat echo this admission with EF 25% with severe global hypokinesis of the LV 4. Substance abuse; continues to use methamphetamines 5. CAD; past emergent CABG x2 08/13/2016 due to recurrent ISR, clinically stable 6. PAFIB/flutter; s/p previous CV. Presently a-flutter. rate better controlled 7. Hypertension; controlled 8. Hyperlipidemia; statin 9. Diabetes, II 10. Severe LLE PAD; s/p previous fem-pop bypass and more recent HOSIERY PAIRER/thrombectomy of a focal stenosis in his femoropopliteal bypass graft Recommendations HF optimization with Toprol, lisinopril, Lasix, Aldactone Reinforced importance of cessation from recreational drug use and importance of followup Consider initiation of Entresto and AICD for primary prevention if compliance can be established Secondary prevention; continue Plavix. Eliquis for stroke prevention Continue Amiodarone for now Consider outpatient CV if he remains in AFIB/flutter Follow up in our office with Dr. Lam scheduled. Justicifation of Admission Dx: Justifications for Admission: Justification of Admission Dx: Yes NE: Acute NSTEMI JEFFREY LAM MD 11/17/20 1823: CARDIO Progress Notes Plan Plan The patient was seen and interviewed as well as examined at the bedside. The chart was reviewed. The case was discussed. Agree with the plan of care. RADHA MORELOS APRN Nov 17, 2020 11:40 JEFFREY LAM MD Nov 17, 2020 18:23
--- NOTE | 2020-11-17 11:52 | NUR ---
SW following. Discussed with RN, pt seen by PAT team yesterday - pt declined all services from the pat team, stating he doesn't need or want any help. Pt provided with resources. RN notified. SW will continue to follow.
--- NOTE | 2020-11-17 13:44 | PDOC ---
[facility] PROGRESS NOTE Date of Service DOS: DATE: 11/17/20 TIME: 13:39 Chief Complaint Chief Complaint Acute on chronic CHF exacerbation, last echocardiogram with LVEF of 40 to 45% on January 2020 Elevated BNP, chest x-ray not showing cardiomegaly or volume overload Elevated troponins likely due to type II demand ischemia, secondary to methamphetamine use Microcytic anemia Methamphetamine positivity Methamphetamine abuse Moderate protein malnutrition History of CABG History of diabetes mellitus type 2 History of DVT Dyslipidemia History of hypertension History of femoral bypass and stenting Admit to hospitalist service for further management Cardiology consult Continue telemetry monitoring Trend troponins Will consider diuresis depending on physical exam Lovenox for DVT prophylaxis Protonix GI prophylaxis ADA diet CODE STATUS full Discussed with RN and SW Disposition inpatient management as above DPOA: Undesignated History of Present Illness History of Present Illness 65-year-old male presenting for multiple symptoms. Was here 24 hours ago and had formal work-up, he was positive for methamphetamine at that time and subsequently discharged home after no emergent and/or surgical findings were found. Reports he went home and drank a lot of water but states he has been sh ort of breath, had episodes of presyncope, has had intermittent episodes of nonbloody stools that are softer than usual, and insomnia. Denies any recent meth abuse, states he last used over a month ago. No fever, URI symptoms, chest pain, ripping or tearing sensation in chest, productive cough, abdominal pain, bladder or bowel incontinence, changes in motor or sensory urinary function 11/15/2020: Afebrile. Echocardiogram pending. Troponin slightly elevated but stable. Recent echocardiogram from August 2020 showed basal inferior and posterior wall hypokinesis with EF estimated at 60%. We will resume home lisinopril. Appreciate cardiology recommendations on the management of this patient. May discharge today barring their recommendations. Patient states he has home health set up already, but feels like he might benefit from further rehab. Will order PT/OT. 11/16/2020: Patient seen resting comfortably in bed. Remains in a-flutter. Will follow cardiology recommendations; continue amiodarone and initiate digoxin for a-flutter. Possible cardioversion per cardiology if remains in a-flutter. Echocardiogram 11/15 showed mild to moderately dilated LV, with LV systolic function severely decreased, estimated EF 25%, PAP 50 mmHg. On Toprol-XL and lisinopril; spironolactone has been added. We will continue Plavix and Eliquis, per cardiology. 11/17/2020: Still in A. fib, which occasionally resembles a flutter. Will follow cardiology recommendations; amiodarone, digoxin, Plavix, Eliquis, spironolactone, Toprol-XL, SUKI-I. Outpatient CV if he remains in AFIB/flutter. Follow up in our office with Dr. Lam scheduled. Consultation was placed to vascular surgery given his history and claudication symptoms. Per vascular surgery, stable lower extremity claudication without rest pain or ulceration. Recommended follow-up as outpatient for further evaluation; continue daily plavix. Patient has declined social services counselor offered by PAT team and social work assistant. Will discharge home with close PCP follow-up. Greater than 30 minutes spent managing discharge of this patient. Vitals/I&O Vitals/I&O: Vital Signs Date Time Temp Pulse Resp B/P (MAP) Pulse Ox O2 Delivery O2 Flow Rate FiO2 11/17/20 11:07 93 136/73 11/17/20 10:55 98.2 16 96 Room Air 98.2 I & O 11/16/20 11/16/20 11/17/20 15:00 23:00 07:00 Intake Total 240 ml 120 ml Balance 240 ml 120 ml Physical Exam General: Alert, No acute distress Heart: Other (Irregularly irregular) Lungs: Clear Abdomen: Normal bowel sounds, No tenderness Extremities: No clubbing, No cyanosis Skin: No rashes, No breakdown Labs Labs: Laboratory Tests Test 11/16/20 17:03 11/16/20 20:39 11/17/20 02:42 11/17/20 07:25 Glucose (Fingerstick) 164 mg/dL (70-99) 166 mg/dL (70-99) 220 mg/dL (70-99) White Blood Count 6.2 x10^3/uL (4.0-11.0) Red Blood Count 5.09 x10^6/uL (4.30-5.70) Hemoglobin 10.1 g/dL (13.0-17.5) Hematocrit 34.2 % (39.0-53.0) Mean Corpuscular Volume 67 fL (79-100) Mean Corpuscular Hemoglobin 20 pg (25-35) Mean Corpuscular Hemoglobin Concent 30 g/dL (31-37) Red Cell Distribution Width 21.8 % (11.5-14.5) Platelet Count 367 x10^3/uL (140-400) Neutrophils (%) (Auto) 63 % (31-73) Lymphocytes (%) (Auto) 21 % (24-48) Monocytes (%) (Auto) 12 % (0-9) Eosinophils (%) (Auto) 3 % (0-3) Basophils (%) (Auto) 1 % (0-3) Neutrophils # (Auto) 3.9 x10^3/uL (1.8-7.7) Lymphocytes # (Auto) 1.3 x10^3/uL (1.0-4.8) Monocytes # (Auto) 0.7 x10^3/uL (0.0-1.1) Eosinophils # (Auto) 0.2 x10^3/uL (0.0-0.7) Basophils # (Auto) 0.1 x10^3/uL (0.0-0.2) Sodium Level 137 mmol/L (136-145) Potassium Level 3.9 mmol/L (3.5-5.1) Chloride Level 104 mmol/L (98-107) Carbon Dioxide Level 25 mmol/L (21-32) Anion Gap 8 (6-14) Blood Urea Nitrogen 15 mg/dL (8-26) Creatinine 1.0 mg/dL (0.7-1.3) Estimated GFR (Cockcroft-Gault) 75.0 Glucose Level 147 mg/dL (70-99) Calcium Level 8.3 mg/dL (8.5-10.1) Magnesium Level 2.0 mg/dL (1.8-2.4) Test 11/17/20 07:36 11/17/20 11:33 Glucose (Fingerstick) 145 mg/dL (70-99) 194 mg/dL (70-99) Assessment and Plan Assessmemt and Plan Problems Medical Problems: (1) Elevated troponin Status: Acute (2) Methamphetamine abuse Status: Acute Comment Review of Relevant I have reviewed the following items rachel (where applicable) has been applied. Justifications for Admission Other Justification Chest pain. BENITO OJEDA MD Nov 17, 2020 13:44
[2020-11-17] MEDS ORDERED: METO-247 PO (14:58)
[2020-11-17] MEDS ORDERED: SPIR25TA PO (14:58)
[2020-11-17 15:00] VITALS: BP 119/68
--- NOTE | 2020-11-17 15:02 | PDOC3 ---
Discharge Summary Visit Information Date of Admission: Nov 14, 2020 Date of Discharge: Nov 17, 2020 Final Diagnosis Problems Medical Problems: (1) Elevated troponin Status: Acute (2) Methamphetamine abuse Status: Acute Brief Hospital Course Allergies Allergies Coded Allergies Type Severity Reaction Last Updated Verified No Known Drug Allergies 02/27/17 No Vital Signs Vital Signs Date Time Temp Pulse Resp B/P (MAP) Pulse Ox O2 Delivery O2 Flow Rate FiO2 11/17/20 11:07 93 136/73 11/17/20 10:55 98.2 16 96 Room Air 98.2 Lab Results Laboratory Tests Test 11/15/20 17:38 11/15/20 19:06 11/16/20 07:00 11/16/20 07:14 Glucose (Fingerstick) 149 mg/dL (70-99) 290 mg/dL (70-99) 117 mg/dL (70-99) White Blood Count 6.2 x10^3/uL (4.0-11.0) Red Blood Count 4.78 x10^6/uL (4.30-5.70) Hemoglobin 9.6 g/dL (13.0-17.5) Hematocrit 32.6 % (39.0-53.0) Mean Corpuscular Volume 68 fL (79-100) Mean Corpuscular Hemoglobin 20 pg (25-35) Mean Corpuscular Hemoglobin Concent 30 g/dL (31-37) Red Cell Distribution Width 22.1 % (11.5-14.5) Platelet Count 325 x10^3/uL (140-400) Neutrophils (%) (Auto) 62 % (31-73) Lymphocytes (%) (Auto) 21 % (24-48) Monocytes (%) (Auto) 13 % (0-9) Eosinophils (%) (Auto) 2 % (0-3) Basophils (%) (Auto) 1 % (0-3) Neutrophils # (Auto) 3.9 x10^3/uL (1.8-7.7) Lymphocytes # (Auto) 1.3 x10^3/uL (1.0-4.8) Monocytes # (Auto) 0.8 x10^3/uL (0.0-1.1) Eosinophils # (Auto) 0.1 x10^3/uL (0.0-0.7) Basophils # (Auto) 0.1 x10^3/uL (0.0-0.2) Platelet Estimate Adequate (ADEQUATE) Polychromasia Present Hypochromasia Marked Anisocytosis Mod Microcytosis Mod Sodium Level 138 mmol/L (136-145) Potassium Level 3.7 mmol/L (3.5-5.1) Chloride Level 104 mmol/L (98-107) Carbon Dioxide Level 28 mmol/L (21-32) Anion Gap 6 (6-14) Blood Urea Nitrogen 19 mg/dL (8-26) Creatinine 1.0 mg/dL (0.7-1.3) Estimated GFR (Cockcroft-Gault) 75.0 Glucose Level 103 mg/dL (70-99) Calcium Level 8.6 mg/dL (8.5-10.1) Magnesium Level 2.2 mg/dL (1.8-2.4) Test 11/16/20 11:30 11/16/20 17:03 11/16/20 20:39 11/17/20 02:42 Glucose (Fingerstick) 156 mg/dL (70-99) 164 mg/dL (70-99) 166 mg/dL (70-99) 220 mg/dL (70-99) Test 11/17/20 07:25 11/17/20 07:36 11/17/20 11:33 White Blood Count 6.2 x10^3/uL (4.0-11.0) Red Blood Count 5.09 x10^6/uL (4.30-5.70) Hemoglobin 10.1 g/dL (13.0-17.5) Hematocrit 34.2 % (39.0-53.0) Mean Corpuscular Volume 67 fL (79-100) Mean Corpuscular Hemoglobin 20 pg (25-35) Mean Corpuscular Hemoglobin Concent 30 g/dL (31-37) Red Cell Distribution Width 21.8 % (11.5-14.5) Platelet Count 367 x10^3/uL (140-400) Neutrophils (%) (Auto) 63 % (31-73) Lymphocytes (%) (Auto) 21 % (24-48) Monocytes (%) (Auto) 12 % (0-9) Eosinophils (%) (Auto) 3 % (0-3) Basophils (%) (Auto) 1 % (0-3) Neutrophils # (Auto) 3.9 x10^3/uL (1.8-7.7) Lymphocytes # (Auto) 1.3 x10^3/uL (1.0-4.8) Monocytes # (Auto) 0.7 x10^3/uL (0.0-1.1) Eosinophils # (Auto) 0.2 x10^3/uL (0.0-0.7) Basophils # (Auto) 0.1 x10^3/uL (0.0-0.2) Sodium Level 137 mmol/L (136-145) Potassium Level 3.9 mmol/L (3.5-5.1) Chloride Level 104 mmol/L (98-107) Carbon Dioxide Level 25 mmol/L (21-32) Anion Gap 8 (6-14) Blood Urea Nitrogen 15 mg/dL (8-26) Creatinine 1.0 mg/dL (0.7-1.3) Estimated GFR (Cockcroft-Gault) 75.0 Glucose Level 147 mg/dL (70-99) Calcium Level 8.3 mg/dL (8.5-10.1) Magnesium Level 2.0 mg/dL (1.8-2.4) Glucose (Fingerstick) 145 mg/dL (70-99) 194 mg/dL (70-99) Laboratory Tests Test 11/16/20 17:03 11/16/20 20:39 11/17/20 02:42 11/17/20 07:25 Glucose (Fingerstick) 164 mg/dL (70-99) 166 mg/dL (70-99) 220 mg/dL (70-99) White Blood Count 6.2 x10^3/uL (4.0-11.0) Red Blood Count 5.09 x10^6/uL (4.30-5.70) Hemoglobin 10.1 g/dL (13.0-17.5) Hematocrit 34.2 % (39.0-53.0) Mean Corpuscular Volume 67 fL (79-100) Mean Corpuscular Hemoglobin 20 pg (25-35) Mean Corpuscular Hemoglobin Concent 30 g/dL (31-37) Red Cell Distribution Width 21.8 % (11.5-14.5) Platelet Count 367 x10^3/uL (140-400) Neutrophils (%) (Auto) 63 % (31-73) Lymphocytes (%) (Auto) 21 % (24-48) Monocytes (%) (Auto) 12 % (0-9) Eosinophils (%) (Auto) 3 % (0-3) Basophils (%) (Auto) 1 % (0-3) Neutrophils # (Auto) 3.9 x10^3/uL (1.8-7.7) Lymphocytes # (Auto) 1.3 x10^3/uL (1.0-4.8) Monocytes # (Auto) 0.7 x10^3/uL (0.0-1.1) Eosinophils # (Auto) 0.2 x10^3/uL (0.0-0.7) Basophils # (Auto) 0.1 x10^3/uL (0.0-0.2) Sodium Level 137 mmol/L (136-145) Potassium Level 3.9 mmol/L (3.5-5.1) Chloride Level 104 mmol/L (98-107) Carbon Dioxide Level 25 mmol/L (21-32) Anion Gap 8 (6-14) Blood Urea Nitrogen 15 mg/dL (8-26) Creatinine 1.0 mg/dL (0.7-1.3) Estimated GFR (Cockcroft-Gault) 75.0 Glucose Level 147 mg/dL (70-99) Calcium Level 8.3 mg/dL (8.5-10.1) Magnesium Level 2.0 mg/dL (1.8-2.4) Test 11/17/20 07:36 11/17/20 11:33 Glucose (Fingerstick) 145 mg/dL (70-99) 194 mg/dL (70-99) Brief Hospital Course Acute on chronic CHF exacerbation, last echocardiogram with LVEF of 40 to 45% on January 2020 Elevated BNP, chest x-ray not showing cardiomegaly or volume overload Elevated troponins likely due to type II demand ischemia, secondary to methamphetamine use Microcytic anemia Methamphetamine positivity Methamphetamine abuse Moderate protein malnutrition History of CABG History of diabetes mellitus type 2 History of DVT Dyslipidemia History of hypertension History of femoral bypass and stenting History of Present Illness 65-year-old male presenting for multiple symptoms. Was here 24 hours ago and h ad formal work-up, he was positive for methamphetamine at that time and subsequently discharged home after no emergent and/or surgical findings were found. Reports he went home and drank a lot of water but states he has been short of breath, had episodes of presyncope, has had intermittent episodes of nonbloody stools that are softer than usual, and insomnia. Denies any recent me th abuse, states he last used over a month ago. No fever, URI symptoms, chest pain, ripping or tearing sensation in chest, productive cough, abdominal pain, bladder or bowel incontinence, changes in motor or sensory urinary function 11/15/2020: Afebrile. Echocardiogram pending. Troponin slightly elevated but stable. Recent echocardiogram from August 2020 showed basal inferior and posterior wall hypokinesis with EF estimated at 60%. We will resume home lisinopril. Appreciate cardiology recommendations on the management of this patient. May discharge today barring their recommendations. Patient states he has home health set up already, but feels like he might benefit from further rehab. Will order PT/OT. 11/16/2020: Patient seen resting comfortably in bed. Remains in a-flutter. Will follow cardiology recommendations; continue amiodarone and initiate digoxin for a-flutter. Possible cardioversion per cardiology if remains in a-flutter. Echocardiogram 11/15 showed mild to moderately dilated LV, with LV systolic function severely decreased, estimated EF 25%, PAP 50 mmHg. On Toprol-XL and lisinopril; spironolactone has been added. We will continue Plavix and Eliquis, per cardiology. 11/17/2020: Still in A. fib, which occasionally resembles a flutter. Will follow cardiology recommendations; amiodarone, digoxin, Plavix, Eliquis, spironolactone, Toprol-XL, SUKI-I. Outpatient CV if he remains in AFIB/flutter. Follow up in our office with Dr. Lam scheduled. Consultation was placed to vascular surgery given his history and claudication symptoms. Per vascular surgery, stable lower extremity claudication without rest pain or ulceration. Recommended follow-up as outpatient for further evaluation; continue daily plavix. Patient has declined licensed clinical social worker offered by PAT team and social work msw. Will discharge home with close PCP follow-up. Greater than 30 minutes spent managing discharge of this patient. Discharge Information Condition at Discharge: Stable Disposition/Orders: D/C to Home Scheduled Amiodarone Hcl (Amiodarone Hcl) 200 Mg Tablet, 200 MG PO DAILY for AFIB for 30 Days, #30 Ref 3 Prescribed by: LIANG CASTELAN on 06/30/20 1219 Last Action: Continued on 11/14/201155 by LAURO NGO MD Apixaban (Eliquis) 5 Mg Tablet, 5 MG PO BID, (Reported) Entered as Reported by: URVASHI VANCE on 10/19/17 1311 Last Action: Continued on 11/14/201155 by LAURO NGO MD Atorvastatin Calcium (Atorvastatin Calcium) 40 Mg Tablet, 40 MG PO QHS for 30 Days, #30 Prescribed by: JACINTO LOVE MD on 08/07/16 1121 Last Action: Continued on 11/14/201155 by LAURO NGO MD Clopidogrel Bisulfate (Clopidogrel) 75 Mg Tablet, 1 TAB PO DAILY, #90 Ref 1 Prescribed by: CHUY FLEMING on 10/12/16 1610 Last Action: Continued on 11/14/201155 by LAURO NGO MD Furosemide (Furosemide) 80 Mg Tablet, 1 TAB PO DAILY for CHF, #30 Ref 5 (Reported) Entered as Reported by: ALLISON BRUNO RN on 11/14/201150 Last Taken: UNKNOWN on Unknown Date & Time Last Action: HELD on 11/14/201155 by LAURO NGO MD Gabapentin (Gabapentin) 600 Mg Tablet, 300 MG PO TID for NEUROGENIC PAIN, (Reported) Entered as Reported by: ALLISON BRUNO RN on 11/14/201150 Last Taken: UNKNOWN on Unknown Date & Time Last Action: Converted on 11/14/201155 by LAURO NGO MD Insulin Aspart (Novolog Flexpen) 100 Unit/1 Ml Insuln.pen, 10 UNIT SQ TIDWMEALS for , (Reported) Entered as Reported by: TIM HUMPHREY RN on 06/06/18 0802 Last Action: Converted on 11/14/201155 by LAURO NGO MD Insulin Detemir (Levemir) 100 Unit/1 Ml Vial, 55 UNIT SQ QHS for 30 Days Prescribed by: AYE VIRK on 03/05/17 1623 Last Action: Converted on 11/14/201155 by LAURO NGO MD Lisinopril (Lisinopril) 10 Mg Tablet, 1 TAB PO DAILY for htn, #30 Ref 5 (Reported) Entered as Reported by: ALLISON BRUNO RN on 11/14/201150 Last Taken: UNKNOWN on Unknown Date & Time Last Action: Continued on 11/15/20 1313 by BENITO OJEDA MD Metformin Hcl (Metformin Hcl) 1,000 Mg Tablet, 1,000 MG PO BIDWMEALS for DM-2, (Reported) Entered as Reported by: ENRIQUETA PEREZ RN on 02/18/20 0755 Last Action: Reviewed on 11/14/201150 by ALLISON BRUNO RN Metoprolol Succinate (Metoprolol Succinate ( Xl )) 100 Mg Tab.er.24h, 150 MG PO DAILY for CHF for 30 Days, #45 Ref 2 Prescribed by: BENITO OJEDA MD on 11/17/20 1458 Potassium Citrate (Potassium Citrate Er) 15 Meq Tablet.er, 20 MEQ PO BIDWMEALS for supplment, (Reported) Entered as Reported by: ALLISON BRUNO RN on 11/14/201150 Last Taken: UNKNOWN on Unknown Date & Time Last Action: New Order on 11/14/201150 by ALLISON BRUNO RN Spironolactone (Aldactone) 25 Mg Tablet, 25 MG PO DAILY for CHF for 30 Days, #30 Ref 2 Prescribed by: BENITO OJEDA MD on 11/17/20 1458 [gentamicin] , 0.1 % TP DAILY, (Reported) Entered as Reported by: NARDA MINAYA on 09/09/202248 Discontinued Medications Doxycycline Hyclate (Doxycycline Hyclate) 100 Mg Capsule, 1 CAP PO BID for wound infection for 10 Days, #20 (Reported) Entered as Reported by: NARDA MINAYA on 09/09/202248 Last Action: HELD on 11/14/201155 by LAURO NGO MD Metoprolol Tartrate (Metoprolol Tartrate) 50 Mg Tablet, 1 TAB PO BID for HR, #60 Ref 5 (Reported) Entered as Reported by: ALLISON BRUNO RN on 11/14/201150 Last Taken: UNKNOWN on Unknown Date & Time Last Action: Continued on 11/14/201155 by LAURO NGO MD Justicifation of Admission Dx: Justifications for Admission: Justification of Admission Dx: Yes GA: Acute NSTEMI BENITO OJEDA MD Nov 17, 2020 15:02
--- NOTE | 2020-11-17 16:10 | PDOC ---
Provider Note Date of Service: DATE: 11/17/20 TIME: 16:05 Provider Note I independently saw and evaluated Mr. Bruno. He is well-known to our service with multiple attempts had intervention for his peripheral arterial disease. Most recently he has undergone angiogram and percutaneous intervention of his left lower extremity bypass. This was successful and he has Doppler signals in both feet. He states that his legs do not work as well as they should, however he is unable to describe claudication or rest pain symptoms for me. He does have scattered scabs across his bilateral feet. He does have callus thickening of the plantar aspects of both feet. He states that he does not wear close toed shoes and only wears sandals as the tops of his feet hurt when he puts regular shoes on. He does say that he attempts to protect his feet regularly. His bypass graft was just evaluated recently in clinic and was found to be patent. We will plan to see him back at his regularly scheduled follow-up appointment. If he has new or worsening symptoms prior to then he should call our office for an additional visit. Continue Plavix. Justifications for Admission Other Justification Chest pain. BRENDA MADDEN DO Nov 17, 2020 16:10
--- NOTE | 2020-11-17 18:21 | NUR ---
patient discharged home with roommate. meds and follow up reviewed. med box from med room, cell phone, glasses, associate drafter returned to patient. iV removed intact. patient stable upon dc.
== END 2020-11-17 18:24 | disposition home or self-care (01) | DRG 917 ==
LOC: ER 21:51 → 5 SOUTH 11-14 02:42
PROVIDERS: ADMIT Student in an Organized Health Care Education/Training Program; ATTEND Student in an Organized Health Care Education/Training Program
DX: T43.621A Poisoning by amphetamines, accidental (unintentional), initial encounter (principal); I50.43 Acute on chronic combined systolic (congestive) and diastolic (congestive) heart failure; I24.8 Other forms of acute ischemic heart disease; E44.0 Moderate protein-calorie malnutrition; I48.92 Unspecified atrial flutter; I11.0 Hypertensive heart disease with heart failure; D50.9 Iron deficiency anemia, unspecified; E11.40 Type 2 diabetes mellitus with diabetic neuropathy, unspecified; E11.51 Type 2 diabetes mellitus with diabetic peripheral angiopathy without gangrene; E78.00 Pure hypercholesterolemia, unspecified; E78.5 Hyperlipidemia, unspecified; F15.10 Other stimulant abuse, uncomplicated; G47.00 Insomnia, unspecified; I25.10 Atherosclerotic heart disease of native coronary artery without angina pectoris; I27.20 Pulmonary hypertension, unspecified; I48.0 Paroxysmal atrial fibrillation; Z79.01 Long term (current) use of anticoagulants; Z79.02 Long term (current) use of antithrombotics/antiplatelets; Z79.4 Long term (current) use of insulin; Z79.899 Other long term (current) drug therapy; Z86.718 Personal history of other venous thrombosis and embolism; Z87.891 Personal history of nicotine dependence; Z91.19 Patient's noncompliance with other medical treatment and regimen; Z95.1 Presence of aortocoronary bypass graft; G62.9 Polyneuropathy, unspecified; M19.90 Unspecified osteoarthritis, unspecified site; Z68.27 Body mass index [BMI] 27.0-27.9, adult; I25.2 Old myocardial infarction; J44.9 Chronic obstructive pulmonary disease, unspecified; Z20.822 Contact with and (suspected) exposure to COVID-19
CPT/HCPCS: 36415; 71045; 80048; 80053; 80061; 80307; 81001; 82962; 83605; 83735; 83880; 84100; 84484; 85025; 87426; 93005; 93306; 96360; 96361; J1160; J1815; J1940; J7030; U0003; U0005; 97535-GO; 99285-25; G0378

== ENCOUNTER 2020-12-07 17:15 | Inpatient (IN) | payer MEDICARE ==
[~2020-12-07] VITALS: Ht 185.4 cm; Wt 97.6 kg
[~2020-12-07 17:15] MED LIST changes: +AMIO200T53 PO; -AMIO200T6 PO; +FURO80TA3 PO; +GABA600T7 PO; +POTA15TA9 PO; +SPIR25TA PO
[2020-12-07] MEDS ORDERED: ELECTROLYTE (NON-ICU) PROTOCOL. MC PRN (18:15)
[2020-12-07] MEDS ORDERED: ONDANSETRON PF 4 MG/2 ML VIAL. IVP PRN (18:15)
[2020-12-07] MEDS ORDERED: CALCIUM CARBONATE 500 MG TAB.CHEW PO PRN (18:15)
[2020-12-07] MEDS ORDERED: ACETAMINOPHEN 325 MG TABLET. PO PRN (18:15)
--- NOTE | 2020-12-07 18:34 | PDOC1 ---
History and Physical Date of Service: DOS: DATE: 12/07/20 TIME: 18:20 Chief Complaint: Problems: (1) Open wound of right lower extremity (2) PAD (peripheral artery disease) Chief Complain: Right lower extremity wound History of Present Illness: HPI: Patient is a 65-year-old white male presented to outside emergency room today due to a right lower extremity wound. Patient has known peripheral arterial disease follows with vascular surgery team here. Reports that about 2 days ago he hit his right great toe on a coffee table and has noticed it has been getting more more red swelling and more painful. Noticed that earlier today there was pus coming from under the toenail the toenail was lifting up quite a bit. Because been present to the emergency room today. While there still was evaluated appear to be infected. X-ray showed gas lucencies consistent with a soft tissue infection at the base of the fifth toe? Fifth toe appears somewhat normal on exam we will just repeat the x-ray here. Patient was given a dose of vancomycin and Zosyn blood cultures taken and was recommended for transfer here for higher level of care and wound care and surgical consults. On arrival patient is quite pleasant. Does report some pain in his right foot otherwise really had no complaints. Discussed with him plan of care and he understood. Past Medical/Surgical History: PMH/PSH: CAD, CHF, uncontrolled type 2 diabetes, high cholesterol, PAD, hypertension Allergies: Allergies: Coded Allergies: No Known Drug Allergies (Unverified , 02/27/17) Family History: Family History: Reviewed with patient reports a family history of hypertension Social History: Social History: Former smoker. Denies alcohol or drug use Current Medications: Current Medications Current Medications Ondansetron HCl (Zofran) 4 mg PRN Q6HRS PRN IVP NAUSEA/VOMITING; Start 1 at 18:15; Status UNV Calcium Carbonate/ Glycine (Tums) 500 mg PRN Q3HRS PRN PO UPSET STOMACH; Start 12/07/20 at 18:15; Status UNV Zolpidem Tartrate (Ambien) 5 mg PRN QHS PRN PO INSOMNIA, MAY REPEAT IN 1HR; Start 12/07/20 at 18:15; Status UNV Info (Non-Icu Electrolyte Protocol) 1 ea PRN DAILY PRN MC SEE COMMENTS; Start 12/07/20 at 18:15; Status UNV Oxycodone/ Acetaminophen (Percocet 5/325) 1 tab PRN Q4HRS PRN PO MILD PAIN, 1ST CHOICE; Start 12/07/20 at 18:15; Status UNV Oxycodone/ Acetaminophen (Percocet 5/325) 2 tab PRN Q4HRS PRN PO MODERATE PAIN, SEVERE PAIN; Start 12/07/20 at 18:15; Status UNV Acetaminophen (Tylenol) 650 mg PRN Q6HRS PRN PO Headaches, Temp > 101.5F; Start 12/07/20 at 18:15; Status UNV Senna/Docusate Sodium (Senna Plus) 1 tab BID PO ; Start 12/07/20 at 21:00; Status UNV Active Scripts Active Aldactone (Spironolactone) 25 Mg Tablet 25 Mg PO DAILY 30 Days Metoprolol Succinate ( Xl ) (Metoprolol Succinate) 100 Mg Tab.er.24h 150 Mg PO DAILY 30 Days Amiodarone Hcl 200 Mg Tablet 200 Mg PO DAILY 30 Days Levemir (Insulin Detemir) 100 Unit/1 Ml Vial 55 Unit SQ QHS 30 Days Clopidogrel (Clopidogrel Bisulfate) 75 Mg Tablet 1 Tab PO DAILY Atorvastatin Calcium 40 Mg Tablet 40 Mg PO QHS 30 Days Reported Gabapentin 600 Mg Tablet 300 Mg PO TID Potassium Citrate Er (Potassium Citrate) 15 Meq Tablet.er 20 Meq PO BIDWMEALS Furosemide 80 Mg Tablet 1 Tab PO DAILY Lisinopril 10 Mg Tablet 1 Tab PO DAILY [gentamicin] 0.1 % TP DAILY Metformin Hcl 1,000 Mg Tablet 1,000 Mg PO BIDWMEALS Novolog Flexpen (Insulin Aspart) 100 Unit/1 Ml Insuln.pen 10 Unit SQ TIDWMEALS Eliquis (Apixaban) 5 Mg Tablet 5 Mg PO BID ROS: Review of Systems Review of System Unless noted in HPI fourteen point review of systems was negative Physical Exam: Physcial Exam: GEN: No apparent distress. Alert and oriented HEENT: Normal cephalic, atraumatic, external auditory canals are patent EYES: Extraocular muscles are intact, pupil are equally round and reactive to light and accommodation MUSCULOSKELETAL: Well developed , well nourished, good range of motion ENDOCRINE: No thyromegaly was palpated LYMPHATICS: No cervical chain or axillary nodes were noted HEMATOPOIETIC: No bruising NECK: Supple, no JVD, no thyromegaly was noted LUNGS: Clear to auscultation in all lung lozoya without rhonchi or wheezing HEART: RRR, S1, S2 present. Peripheral pulses intact, no obvious murmurs noted ABDOMEN: Soft, nontender. Positive bowel sounds, no organomegaly, normal bowel sounds EXTREMITIES: Right lower extremity wound on great toe and second toe. On great toe there is some purulent discharge from under the toenail. There is otherwise bruising around. Scar of previous vascular surgery present. Difficult to feel pulses if at all. Right lower extremity with seeping wounds NEUROLOGIC: Normal speech and tone. A&O x 3, moves all extremities, no obvious focal deficits PSYCHIATRIC: Normal affect, normal mood. Stable SKIN: See extremity exam VASCULAR: Decreased capillary refill. Unable to completely palpate pulses in lower extremity Assessment/Plan Assessment/Plan Traumatic right lower extremity wound, peripheral arterial disease, CAD, CHF, uncontrolled type 2 diabetes, hyperlipidemia, hypertension -Patient known history of PAD. Stubbed her right great toe 2 days ago and the w ound has only been worsening. -Presented to outside hospital with wound has purulent material draining -Patient received a dose of vancomycin and Zosyn at outside hospital. Wound does look infected. Will give another dose of the Zosyn tonight and patient should have adequate coverage until he can be evaluated by surgical team. blood cultures obtained at outside hospital. -Patient would likely need ID consult -Vascular surgery consulted -As needed pain control -Home meds resumed as indicated -On Eliquis at home. Will switch to weight-based Lovenox to bridge in the event of any intervention Justifications for Admission Other Justification Chest pain. SP RENTERIA MD Dec 07, 2020 18:34
[2020-12-07 18:45] VITALS: BP 143/95
[2020-12-07] MEDS ORDERED: PIP/TAZO PER PHARMACY MC PRN (18:45)
[2020-12-07] MEDS ORDERED: DEXTROSE 50% 25 GM / 50ML DISP.SYRIN. IV PRN (18:45)
[2020-12-07] MEDS ORDERED: POTA-121 PO (18:47)
[2020-12-07] MEDS ORDERED: GABA300C18 PO (18:47)
--- NOTE | 2020-12-07 19:35 | RAD ---
Three-view right foot HISTORY: Diabetic ulcer AP lateral oblique views The visualized osseous structures appear normal. IMPRESSION: No acute findings. Electronically signed by: Dwight Johnson III, MD (12/07/2020 7:33 PM) [facility]
[2020-12-07 19:55] LABS: BASO # 0.1 x10^3/uL (0.0-0.2); BASO % 1 % (0-3); EOS # 0.1 x10^3/uL (0.0-0.7); EOS % 2 % (0-3); HEMATOCRIT 35.6 % (39.0-53.0); HEMOGLOBIN 9.8 g/dL (13.0-17.5); LYMPH # 1.4 x10^3/uL (1.0-4.8); LYMPH % 18 % (24-48); MEAN CORPUSCULAR HEMOGLOBIN 20 pg (25-35); MEAN CORPUSCULAR HGB CONC 27 g/dL (31-37); MEAN CORPUSCULAR VOLUME 72 fL (79-100); MONO # 1.1 x10^3/uL (0.0-1.1); MONO % 15 % (0-9); NEUT % 65 % (31-73); PLATELET COUNT 310 x10^3/uL (140-400); RED BLOOD COUNT 4.92 x10^6/uL (4.30-5.70); RED CELL DISTRIBUTION WIDTH 22.5 % (11.5-14.5); WHITE BLOOD COUNT 7.7 x10^3/uL (4.0-11.0)
[2020-12-07] MEDS ORDERED: PIPERACILLIN/TAZOBACTAM 4.5 GM in IV NORMAL SALINE 100ML 100 ML IV SCH (20:00)
[2020-12-07 20:08] LABS: ALBUMIN 3.1 g/dL (3.4-5.0); ALBUMIN/GLOBULIN RATIO 0.8 (1.0-1.7); C-REACTIVE PROTEIN 13.4 mg/L (0-3.3); CREATININE 1.4 mg/dL (0.7-1.3); GFR 50.9; TOTAL BILIRUBIN 1.6 mg/dL (0.2-1.0); TOTAL PROTEIN 6.8 g/dL (6.4-8.2)
[2020-12-07 20:12] LABS: ANISOCYTOSIS MOD; PLT ESTIMATE ADEQUATE (ADEQUATE); POIKILOCYTOSIS SLIGHT
[2020-12-07 20:13] LABS: HYPOCHROMIA MARKED; OVALOCYTES FEW
[2020-12-07 20:14] LABS: MICROCYTOSIS SLIGHT
[2020-12-07] MEDS: SENNOSIDES/DOCUSATE 8.6/50MG TABLET. PO SCH (21:00)
[2020-12-07] MEDS: ATORVASTATIN CALCIUM 40 MG TABLET. PO SCH (21:00)
[2020-12-07] MEDS: GABAPENTIN 300 MG CAPSULE. PO SCH (21:33)
[2020-12-07] MEDS: INSULIN GLARGINE SYRINGE. SQ SCH (21:39)
[2020-12-07] MEDS: ZOLPIDEM 5 MG TABLET. PO PRN (21:42)
[2020-12-07 23:00] VITALS: BP 120/72
[2020-12-08 02:50] VITALS: BP 134/86
[2020-12-08 04:00] LABS: BILIRUBIN,URINE NEGATIVE (NEG); CLARITY,URINE CLEAR; COLOR,URINE YELLOW; NITRITE,URINE NEGATIVE (NEG); PH,URINE 5.5 (<5.0-8.0); PROTEIN,URINE 30 mg/dL (NEG-TRACE)
[2020-12-08 04:07] LABS: BACTERIA,URINE 0 /HPF (0-FEW); RBC,URINE RARE /HPF (0-2); WBC,URINE RARE /HPF (0-4)
[2020-12-08 07:00] VITALS: BP 136/80
[2020-12-08] MEDS: INSULIN LISPRO 300 UNITS/3 ML VIAL. SQ SCH ×3 (07:58→17:20)
--- NOTE | 2020-12-08 09:19 | PDOC2 ---
CONSULT Date of Service Date of Service DATE: 12/08/20 TIME: 08:54 Reason for Consult Reason for Consult: PAD right toe wound History of Present Illness Reason for Visit: This is a 65-year-old male known to our service who has had prior revascularizations who presents with a right first and second toe wound. He presents it started hurting about 3 days ago after he stubbed it. He reports that it is painful. This is all of the information I could get from the patient as he was refusing to wake up or cooperate since he is now allowed to eat. He is snoring, grunting and unable to hold still once I was finally able to minimally wake him up. He never opened his eyes during my visit. He reports he used to do Meth, not anymore but is around people who do it. He is threatening "to be good as long as he gets some food". Would not answer any other questions. He had foot xray without acute findings. Rest of history obtained by chart review. He has a long history of peripheral arterial disease for which he has had left lower extremity vascular reconstruction. He underwent a left external iliac to deep femoral artery bypass with [place] with left femoral to distal popliteal bypass with saphenous vein (right leg great saphenous vein conduit) in 02/[address] Mayer. He later presented in 09/2017 with acute left leg ischemia. He was found to have occlusion of the iliofemoral bypass and lower extremity bypa ss. He underwent emergent surgical thrombectomy by Dr. Bañuelos. It appeared to be an arterial embolus with organized thrombus including the iliac to deep femoral bypass. He underwent successful thrombectomy of the proximal and distal bypass, but he had severe left leg compartment syndrome requiring fasciotomies. He was seen once after that then lost to follow up until recently when He was seen in the office most in October 2020 at which time patency was demonstrated to left leg bypass, however right leg duplex was ordered and has not been done yet. He did not have foot wounds noted at that visit. He appears to take Plavix and Eliquis per med list. Past Medical History Cardiovascular: CAD, CHF, HTN, [place], Hyperlipidemia, Other Pulmonary: No pertinent hx, COPD CENTRAL NERVOUS SYSTEM: Other GI: No pertinent hx Heme/Onc: No pertinent hx Hepatobiliary: No pertinent hx Psych: No pertinent hx Musculoskeletal: Osteoarthritis Rheumatologic: No pertinent hx Infectious disease: No pertinent hx Renal/: No pertinent hx Endocrine: Diabetes Past Surgical History Past Surgical History As listed in HPI. Past Surgical History: CABG, Other Family History Family History: Heart Disease Social History ALCOHOL: none Drugs: Crystal meth Lives: with Family Current Medications Current Medications Current Medications Ondansetron HCl (Zofran) 4 mg PRN Q6HRS PRN IVP NAUSEA/VOMITING; Start 12/07/20 at 18:15 Calcium Carbonate/ Glycine (Tums) 500 mg PRN Q3HRS PRN PO UPSET STOMACH; Start 12/07/20 at 18:15 Zolpidem Tartrate (Ambien) 5 mg PRN QHS PRN PO INSOMNIA, MAY REPEAT IN 1HR Last administered on 12/07/20at 21:42; Start 12/07/20 at 18:15 Info (Non-Icu Electrolyte Protocol) 1 ea PRN DAILY PRN MC SEE COMMENTS; Start 12/07/20 at 18:15 Oxycodone/ Acetaminophen (Percocet 5/325) 1 tab PRN Q4HRS PRN PO MILD PAIN, 1ST CHOICE; Start 12/07/20 at 18:15 Oxycodone/ Acetaminophen (Percocet 5/325) 2 tab PRN Q4HRS PRN PO MODERATE PAIN, SEVERE PAIN; Start 12/07/20 at 18:15 Acetaminophen (Tylenol) 650 mg PRN Q6HRS PRN PO Headaches, Temp > 101.5F; Star t 12/07/20 at 18:15 Senna/Docusate Sodium (Senna Plus) 1 tab BID PO ; Start 12/07/20 at 21:00 Amiodarone HCl (Cordarone) 200 mg DAILY PO ; Start 12/08/20 at 09:00 Atorvastatin Calcium (Lipitor) 40 mg QHS PO Last administered on 12/07/20at 21:00; Start 12/07/20 at 21:00 Clopidogrel Bisulfate (Plavix) 75 mg DAILY PO ; Start 12/08/20 at 09:00 Lisinopril (Prinivil) 10 mg DAILY PO ; Start 12/08/20 at 09:00 Metoprolol Succinate (Toprol Xl) 150 mg DAILY PO ; Start 12/08/20 at 09:00 Spironolactone (Aldactone) 25 mg DAILY PO ; Start 12/08/20 at 09:00 Gabapentin (Neurontin) 300 mg TID PO Last administered on 12/07/20at 21:33; Start 12/07/20 at 21:00 Enoxaparin Sodium (Lovenox Per Pharmacy Treatment Dosing) 1 each PRN DAILY PRN MC SEE COMMENTS; Start 12/07/20 at 18:15 Piperacillin Sod/ Tazobactam Sod (Zosyn Per Pharmacy) 1 each PRN DAILY PRN MC SEE COMMENTS; Start 12/07/20 at 18:45; Stop 12/07/20 at 18:42; Status DC Insulin Glargine (Lantus Syringe) 20 unit QHS SQ Last administered on 12/07/20at 21:39; Start 12/07/20 at 21:00 Insulin Human Lispro (HumaLOG) TIDWMEALS SQ ; Start 12/08/20 at 08:00 Dextrose (Dextrose 50%-Water Syringe) 12.5 gm PRN Q15MIN PRN IV SEE COMMENTS; Start 12/07/20 at 18:45 Enoxaparin Sodium (Lovenox 100mg Syringe) 95 mg Q12HR SQ Last administered on 12/07/20at 21:32; Start 12/07/20 at 21:00 Piperacillin Sod/ Tazobactam Sod 4.5 gm/Sodium Chloride 100 ml @ 200 mls/hr 1X IV ; Start 12/07/20 at 20:00 Active Scripts Active Aldactone (Spironolactone) 25 Mg Tablet 25 Mg PO DAILY 30 Days Metoprolol Succinate ( Xl ) (Metoprolol Succinate) 100 Mg Tab.er.24h 150 Mg PO DAILY 30 Days Amiodarone Hcl 200 Mg Tablet 200 Mg PO DAILY 30 Days Levemir (Insulin Detemir) 100 Unit/1 Ml Vial 55 Unit SQ QHS 30 Days Clopidogrel (Clopidogrel Bisulfate) 75 Mg Tablet 1 Tab PO DAILY Atorvastatin Calcium 40 Mg Tablet 40 Mg PO QHS 30 Days Reported Klor-Con M20 (Potassium Chloride) 20 Meq Tab.er.prt 1 Tab PO DAILY 30 Days Gabapentin 300 Mg Capsule 300 Mg PO TID Furosemide 80 Mg Tablet 1 Tab PO DAILY Lisinopril 10 Mg Tablet 1 Tab PO DAILY Metformin Hcl 1,000 Mg Tablet 1,000 Mg PO BIDWMEALS Novolog Flexpen (Insulin Aspart) 100 Unit/1 Ml Insuln.pen 10 Unit SQ TIDWMEALS Eliquis (Apixaban) 5 Mg Tablet 5 Mg PO BID Allergies Allergies: Coded Allergies: No Known Drug Allergies (Unverified , 02/27/17) ROS Review of System Unable to obtain, pt not cooperative Physical Exam Physical Exam Sleeping, snoring, after some difficulty I was able to awaken him however he continued to grunt, not answer questions or cooperate in exam. He was unable to hold still. I was able to get adequate right DP doppler signal, he is tach ycardic, his right foot is pink with brighter red toes, his 1st and 2nd toes have distal blisters without obvious drainage, pt would not let me touch his toes to further assess. I was able to see his distal left leg scars that appear well healed. I could not see medial right leg as pt was laying on his side, unsure of scar locations if present. Vitals VITALS Vital Signs Date Time Temp Pulse Resp B/P (MAP) Pulse Ox O2 Delivery O2 Flow Rate FiO2 12/08/20 07:00 97.8 121 18 136/80 (98) 94 Room Air 97.8 Labs Labs Laboratory Tests Test 12/07/20 19:42 12/07/20 21:07 12/08/20 02:00 12/08/20 07:42 White Blood Count 7.7 x10^3/uL (4.0-11.0) Red Blood Count 4.92 x10^6/uL (4.30-5.70) Hemoglobin 9.8 g/dL (13.0-17.5) Hematocrit 35.6 % (39.0-53.0) Mean Corpuscular Volume 72 fL (79-100) Mean Corpuscular Hemoglobin 20 pg (25-35) Mean Corpuscular Hemoglobin Concent 27 g/dL (31-37) Red Cell Distribution Width 22.5 % (11.5-14.5) Platelet Count 310 x10^3/uL (140-400) Neutrophils (%) (Auto) 65 % (31-73) Lymphocytes (%) (Auto) 18 % (24-48) Monocytes (%) (Auto) 15 % (0-9) Eosinophils (%) (Auto) 2 % (0-3) Basophils (%) (Auto) 1 % (0-3) Neutrophils # (Auto) 5.0 x10^3/uL (1.8-7.7) Lymphocytes # (Auto) 1.4 x10^3/uL (1.0-4.8) Monocytes # (Auto) 1.1 x10^3/uL (0.0-1.1) Eosinophils # (Auto) 0.1 x10^3/uL (0.0-0.7) Basophils # (Auto) 0.1 x10^3/uL (0.0-0.2) Platelet Estimate Adequate (ADEQUATE) Hypochromasia Marked Poikilocytosis Slight Anisocytosis Mod Microcytosis Slight Ovalocytes Few Sodium Level 131 mmol/L (136-145) Potassium Level 5.0 mmol/L (3.5-5.1) Chloride Level 101 mmol/L (98-107) Carbon Dioxide Level 20 mmol/L (21-32) Anion Gap 10 (6-14) Blood Urea Nitrogen 23 mg/dL (8-26) Creatinine 1.4 mg/dL (0.7-1.3) Estimated GFR (Cockcroft-Gault) 50.9 BUN/Creatinine Ratio 16 (6-20) Glucose Level 230 mg/dL (70-99) Calcium Level 8.0 mg/dL (8.5-10.1) Total Bilirubin 1.6 mg/dL (0.2-1.0) Aspartate Amino Transf (AST/SGOT) 94 U/L (15-37) Alanine Aminotransferase (ALT/SGPT) 95 U/L (16-63) Alkaline Phosphatase 202 U/L (46-116) C-Reactive Protein, Quantitative 13.4 mg/L (0-3.3) Total Protein 6.8 g/dL (6.4-8.2) Albumin 3.1 g/dL (3.4-5.0) Albumin/Globulin Ratio 0.8 (1.0-1.7) Glucose (Fingerstick) 257 mg/dL (70-99) 164 mg/dL (70-99) Urine Collection Type Unknown Urine Color Yellow Urine Clarity Clear Urine pH 5.5 (<5.0-8.0) Urine Specific [place] 1.015 (1.000-1.030) Urine Protein 30 mg/dL (NEG-TRACE) Urine Glucose (UA) 500 mg/dL (NEG) Urine Ketones (Stick) Negative mg/dL (NEG) Urine Blood Negative (NEG) Urine Nitrite Negative (NEG) Urine Bilirubin Negative (NEG) Urine Urobilinogen Dipstick 1.0 mg/dL (0.2 mg/dL) Urine Leukocyte Esterase Negative (NEG) Urine RBC Rare /HPF (0-2) Urine WBC Rare /HPF (0-4) Urine Squamous Epithelial Cells Few /LPF Urine Bacteria 0 /HPF (0-FEW) Urine Mucus Slight /LPF Laboratory Tests Test 12/07/20 19:42 12/07/20 21:07 12/08/20 02:00 12/08/20 07:42 White Blood Count 7.7 x10^3/uL (4.0-11.0) Red Blood Count 4.92 x10^6/uL (4.30-5.70) Hemoglobin 9.8 g/dL (13.0-17.5) Hematocrit 35.6 % (39.0-53.0) Mean Corpuscular Volume 72 fL (79-100) Mean Corpuscular Hemoglobin 20 pg (25-35) Mean Corpuscular Hemoglobin Concent 27 g/dL (31-37) Red Cell Distribution Width 22.5 % (11.5-14.5) Platelet Count 310 x10^3/uL (140-400) Neutrophils (%) (Auto) 65 % (31-73) Lymphocytes (%) (Auto) 18 % (24-48) Monocytes (%) (Auto) 15 % (0-9) Eosinophils (%) (Auto) 2 % (0-3) Basophils (%) (Auto) 1 % (0-3) Neutrophils # (Auto) 5.0 x10^3/uL (1.8-7.7) Lymphocytes # (Auto) 1.4 x10^3/uL (1.0-4.8) Monocytes # (Auto) 1.1 x10^3/uL (0.0-1.1) Eosinophils # (Auto) 0.1 x10^3/uL (0.0-0.7) Basophils # (Auto) 0.1 x10^3/uL (0.0-0.2) Platelet Estimate Adequate (ADEQUATE) Hypochromasia Marked Poikilocytosis Slight Anisocytosis Mod Microcytosis Slight Ovalocytes Few Sodium Level 131 mmol/L (136-145) Potassium Level 5.0 mmol/L (3.5-5.1) Chloride Level 101 mmol/L (98-107) Carbon Dioxide Level 20 mmol/L (21-32) Anion Gap 10 (6-14) Blood Urea Nitrogen 23 mg/dL (8-26) Creatinine 1.4 mg/dL (0.7-1.3) Estimated GFR (Cockcroft-Gault) 50.9 BUN/Creatinine Ratio 16 (6-20) Glucose Level 230 mg/dL (70-99) Calcium Level 8.0 mg/dL (8.5-10.1) Total Bilirubin 1.6 mg/dL (0.2-1.0) Aspartate Amino Transf (AST/SGOT) 94 U/L (15-37) Alanine Aminotransferase (ALT/SGPT) 95 U/L (16-63) Alkaline Phosphatase 202 U/L (46-116) C-Reactive Protein, Quantitative 13.4 mg/L (0-3.3) Total Protein 6.8 g/dL (6.4-8.2) Albumin 3.1 g/dL (3.4-5.0) Albumin/Globulin Ratio 0.8 (1.0-1.7) Glucose (Fingerstick) 257 mg/dL (70-99) 164 mg/dL (70-99) Urine Collection Type Unknown Urine Color Yellow Urine Clarity Clear Urine pH 5.5 (<5.0-8.0) Urine Specific [place] 1.015 (1.000-1.030) Urine Protein 30 mg/dL (NEG-TRACE) Urine Glucose (UA) 500 mg/dL (NEG) Urine Ketones (Stick) Negative mg/dL (NEG) Urine Blood Negative (NEG) Urine Nitrite Negative (NEG) Urine Bilirubin Negative (NEG) Urine Urobilinogen Dipstick 1.0 mg/dL (0.2 mg/dL) Urine Leukocyte Esterase Negative (NEG) Urine RBC Rare /HPF (0-2) Urine WBC Rare /HPF (0-4) Urine Squamous Epithelial Cells Few /LPF Urine Bacteria 0 /HPF (0-FEW) Urine Mucus Slight /LPF Images Images Right foot xray without acute findings I reviewed the angiogram report from August 2020 (could not get images) that was focused on the left leg, with angioplasty and suction thrombectomy of left femoropopliteal graft. Could not get images to assess right leg however there is a CTA from August 2020 as well that mentions right common femoral artery with 50% stenosis, SFA [employer] distal third (present in April [place] as well), report mentions PT with segmental occlusion but 3vessel runoff to the foot. Assessment/Plan Assessment/Plan PAD Right toe wounds Uncooperative pt with known PAD, previous left leg revascularization as mentioned above. He has right toe wounds and pain that brought him in to the hospital. It is not clear to me if he has had right leg intervention, but most recent imaging in August 2020 reports he has SFA occlusion with some PT disease. I was unable to adequately assess his toe wounds due to his uncooperative behavior and inability to hold still, foot xray is without acute findings. The wounds appear to be distal toe tip blisters with some mild discoloration and surrounding erythema, no obvious drainage without palpation. He has been started on IV abx. Per chart review he takes plavix and eliquis at home. I have ordered an arterial duplex of right leg and MRI of right foot to further assess for deeper infection. He does not have a white count or fevers, he does not have acute ischemia, therefore I do not see urgency to any recommendations. I explained the plan to the patient, his aggressive concern was being able to eat. We will await imaging results before making further recommendations. SAEID MARTIN Dec 08, 2020 09:19
[2020-12-08] MEDS: SENNOSIDES/DOCUSATE 8.6/50MG TABLET. PO SCH ×2 (09:31→21:00)
[2020-12-08] MEDS: GABAPENTIN 300 MG CAPSULE. PO SCH ×3 (09:32→21:00)
[2020-12-08] MEDS: AMIODARONE HCL 200 MG TABLET. PO SCH (09:32)
[2020-12-08] MEDS: CLOPIDOGREL BISULFATE 75 MG TABLET PO SCH (09:32)
[2020-12-08] MEDS: SPIRONOLACTONE 25 MG TABLET PO SCH (09:32)
[2020-12-08] MEDS: LISINOPRIL 10 MG TABLET PO SCH (09:32)
[2020-12-08] MEDS: METOPROLOL SUCC 24HR ER 50 MG TAB.ER.24H. PO SCH (09:33)
[2020-12-08] MEDS ORDERED: PIPERACILLIN/TAZOBACTAM 4.5 GM in IV NORMAL SALINE 100ML 100 ML IV ONE (10:15)
[2020-12-08 11:00] VITALS: BP 111/69
[2020-12-08] MEDS: MULTIVITAMIN with MINERAL TABLET. PO SCH (12:55)
[2020-12-08] MEDS: ASCORBIC ACID 500 MG TABLET PO SCH (12:55)
--- NOTE | 2020-12-08 13:16 | PDOC ---
[employer] PROGRESS NOTE Date of Service DOS: DATE: 12/08/20 TIME: 13:13 Chief Complaint Chief Complaint Traumatic right lower extremity wound, peripheral arterial disease, CAD, CHF, uncontrolled type 2 diabetes, hyperlipidemia, hypertension -Patient known history of PAD. Stubbed her right great toe 2 days ago and the wound has only been worsening. -Presented to outside hospital with wound has purulent material draining -Patient received a dose of vancomycin and Zosyn at outside hospital. Wound does look infected. Will give another dose of the Zosyn tonight and patient should have adequate coverage until he can be evaluated by surgical team. blood cultures obtained at outside hospital. -Patient would likely need ID consult -Vascular surgery consultedpending MRI and arterial Doppler for further evaluation -As needed pain control -Home meds resumed as indicated -On Eliquis at home. Will switch to weight-based Lovenox to bridge in the event of any intervention History of Present Illness History of Present Illness 65-year-old white male presented to outside emergency room today due to a right lower extremity wound. Patient has known peripheral arterial disease follows with vascular surgery team here. Reports that about 2 days ago he hit his right great toe on a coffee table and has noticed it has been getting more more red swelling and more painful. Noticed that earlier today there was pus coming from under the toenail the toenail was lifting up quite a bit. Because been present to the emergency room today. While there still was evaluated appear to be infected. X-ray showed gas lucencies consistent with a soft tissue infection at the base of the fifth toe? Fifth toe appears somewhat normal on exam we will just repeat the x-ray here. Patient was given a dose of vancomycin and Zosyn blood cultures taken and was recommended for transfer here for higher level of care and wound care and surgical consults. On arrival patient is quite pleasant. Does report some pain in his right foot otherwise really had no complaints. Discussed with him plan of care and he understood. 12/08/20 No acute events overnight. Patient was seen and examined at bedside. Patient wanted to eat and was fidgety. Pending MRI and arterial Doppler of the right lower extremity. Vitals/I&O Vitals/I&O: Vital Signs Date Time Temp Pulse Resp B/P (MAP) Pulse Ox O2 Delivery O2 Flow Rate FiO2 12/08/20 11:00 98.0 122 18 111/69 (83) 96 Room Air 98.0 I & O 12/07/20 12/07/20 12/08/20 15:00 23:00 07:00 Intake Total 420 ml Balance 420 ml Physical Exam General: Alert, Oriented X3, Cooperative Lungs: Clear Extremities: Other (On great toe there is some purulent discharge from under the toenail. There is otherwise bruising around. Scar of previous vascular surgery present. Difficult to feel pulses if at all. Right lower extremity with seeping wounds) Labs Labs: Laboratory Tests Test 12/07/20 19:42 12/07/20 21:07 12/08/20 02:00 12/08/20 07:42 White Blood Count 7.7 x10^3/uL (4.0-11.0) Red Blood Count 4.92 x10^6/uL (4.30-5.70) Hemoglobin 9.8 g/dL (13.0-17.5) Hematocrit 35.6 % (39.0-53.0) Mean Corpuscular Volume 72 fL (79-100) Mean Corpuscular Hemoglobin 20 pg (25-35) Mean Corpuscular Hemoglobin Concent 27 g/dL (31-37) Red Cell Distribution Width 22.5 % (11.5-14.5) Platelet Count 310 x10^3/uL (140-400) Neutrophils (%) (Auto) 65 % (31-73) Lymphocytes (%) (Auto) 18 % (24-48) Monocytes (%) (Auto) 15 % (0-9) Eosinophils (%) (Auto) 2 % (0-3) Basophils (%) (Auto) 1 % (0-3) Neutrophils # (Auto) 5.0 x10^3/uL (1.8-7.7) Lymphocytes # (Auto) 1.4 x10^3/uL (1.0-4.8) Monocytes # (Auto) 1.1 x10^3/uL (0.0-1.1) Eosinophils # (Auto) 0.1 x10^3/uL (0.0-0.7) Basophils # (Auto) 0.1 x10^3/uL (0.0-0.2) Platelet Estimate Adequate (ADEQUATE) Hypochromasia Marked Poikilocytosis Slight Anisocytosis Mod Microcytosis Slight Ovalocytes Few Sodium Level 131 mmol/L (136-145) Potassium Level 5.0 mmol/L (3.5-5.1) Chloride Level 101 mmol/L (98-107) Carbon Dioxide Level 20 mmol/L (21-32) Anion Gap 10 (6-14) Blood Urea Nitrogen 23 mg/dL (8-26) Creatinine 1.4 mg/dL (0.7-1.3) Estimated GFR (Cockcroft-Gault) 50.9 BUN/Creatinine Ratio 16 (6-20) Glucose Level 230 mg/dL (70-99) Calcium Level 8.0 mg/dL (8.5-10.1) Total Bilirubin 1.6 mg/dL (0.2-1.0) Aspartate Amino Transf (AST/SGOT) 94 U/L (15-37) Alanine Aminotransferase (ALT/SGPT) 95 U/L (16-63) Alkaline Phosphatase 202 U/L (46-116) C-Reactive Protein, Quantitative 13.4 mg/L (0-3.3) Total Protein 6.8 g/dL (6.4-8.2) Albumin 3.1 g/dL (3.4-5.0) Albumin/Globulin Ratio 0.8 (1.0-1.7) Glucose (Fingerstick) 257 mg/dL (70-99) 164 mg/dL (70-99) Urine Collection Type Unknown Urine Color Yellow Urine Clarity Clear Urine pH 5.5 (<5.0-8.0) Urine Specific [place] 1.015 (1.000-1.030) Urine Protein 30 mg/dL (NEG-TRACE) Urine Glucose (UA) 500 mg/dL (NEG) Urine Ketones (Stick) Negative mg/dL (NEG) Urine Blood Negative (NEG) Urine Nitrite Negative (NEG) Urine Bilirubin Negative (NEG) Urine Urobilinogen Dipstick 1.0 mg/dL (0.2 mg/dL) Urine Leukocyte Esterase Negative (NEG) Urine RBC Rare /HPF (0-2) Urine WBC Rare /HPF (0-4) Urine Squamous Epithelial Cells Few /LPF Urine Bacteria 0 /HPF (0-FEW) Urine Mucus Slight /LPF Test 12/08/20 11:49 Glucose (Fingerstick) 274 mg/dL (70-99) Comment Review of Relevant I have reviewed the following items rachel (where applicable) has been applied. Medications: Current Medications Medications (Trade) Dose Ordered Sig/Lizzeth Route PRN Reason Start Time Stop Time Status Last Admin Dose Admin Zolpidem Tartrate (Ambien) 5 mg PRN QHS PRN PO INSOMNIA, MAY REPEAT IN 1HR 12/07/20 18:15 12/07/20 21:42 Senna/Docusate Sodium (Senna Plus) 1 tab BID PO 12/07/20 21:00 12/08/20 09:31 Amiodarone HCl (Cordarone) 200 mg DAILY PO 12/08/20 09:00 12/08/20 09:32 Atorvastatin Calcium (Lipitor) 40 mg QHS PO 12/07/20 21:00 12/07/20 21:00 Clopidogrel Bisulfate (Plavix) 75 mg DAILY PO 12/08/20 09:00 12/08/20 09:32 Lisinopril (Prinivil) 10 mg DAILY PO 12/08/20 09:00 12/08/20 09:32 Metoprolol Succinate (Toprol Xl) 150 mg DAILY PO 12/08/20 09:00 12/08/20 09:33 Spironolactone (Aldactone) 25 mg DAILY PO 12/08/20 09:00 12/08/20 09:32 Gabapentin (Neurontin) 300 mg TID PO 12/07/20 21:00 12/08/20 12:25 Insulin Glargine (Lantus Syringe) 20 unit QHS SQ 12/07/20 21:00 12/07/20 21:39 Insulin Human Lispro (HumaLOG) TIDWMEALS SQ 12/08/20 08:00 12/08/20 12:28 Enoxaparin Sodium (Lovenox 100mg Syringe) 95 mg Q12HR SQ 12/07/20 21:00 12/08/20 09:33 Piperacillin Sod/ Tazobactam Sod 4.5 gm/Sodium Chloride 100 ml @ 200 mls/hr 1X ONCE IV 12/08/20 10:15 12/08/20 10:44 DC 12/08/20 10:59 Multivitamins (Thera M Plus) 1 tab DAILY PO 12/08/20 13:00 12/08/20 12:55 Ascorbic Acid (Vitamin C) 500 mg DAILY PO 12/08/20 13:00 12/08/20 12:55 Justifications for Admission Other Justification Chest pain. LAURO NGO MD Dec 08, 2020 13:16
--- NOTE | 2020-12-08 14:21 | NUR ---
Wound/Ostomy Care Wound Type/Assessment: Wound care consult for right toe wound. Pt has Right great toe, 2nd toe and left great toe wounds. Distal toes are purple and blanched with reddened area proximally. outlined blanched and reddened areas. Patient has had art doppler but it has not been resulted at time of visit. Treatment Recommendations/Plan: Leave CRUDE OIL TREATER and monitor advancing wound borders Education provided: Pt unable to be awakened for visit. Will need education on PU prevention. Offloading surface/device: Pt is a self turn Recommended Referrals/Tests: vascular surgery following Discharge Recommendations for dressings: see above
--- NOTE | 2020-12-08 14:30 | RAD ---
Right lower extremity arterial duplex ultrasound 12/08/2020 INDICATION: Right foot wound. Severe ischemic changes. Discussion: Ultrasound evaluation of the major arteries of the right lower extremity was performed in cluding color Doppler imaging spectral analysis. Severe atherosclerotic vascular disease with multifo sarabjit irregularity and dense calcification is seen throughout the right lower extremity. Right common femoral artery be grossly patent. Proximal profunda artery demonstrates increased veloci ties. Some degree of stenosis could be present. Irregular waveform morphology and reduced velocities are noted in the proximal superficial femoral artery. Below this area there are is significant reduct ion in velocity with blunted waveform morphology. There is an occlusion of the mid superficial femora l artery with reconstitution distally. The remainder of the right lower extremity demonstrates very b lunted monophasic waveforms including the popliteal artery, peroneal artery, anterior tibial artery, dorsalis pedis artery, and posterior tibial artery. IMPRESSION: 1. Probable significant narrowing involving the distal right common femoral artery proximalmost SFA 2. Chronic total occlusion, mid superficial femoral artery Electronically signed by: Luke Jackson MD (12/08/2020 2:28 PM) [id number]
[2020-12-08 15:00] VITALS: BP 112/73
[2020-12-08] MEDS: VANCOMYCIN PER PHARMACY MC PRN (16:06)
--- NOTE | 2020-12-08 16:06 | NUR ---
Pharmacy Vancomycin Dosing Note S:Consulted to monitor and dose vancomycin started 12/08/20. O:ELYSSA CONTRERAS is a 65 year old M with a foot wound. Foot X-ray shows normal osseus structures. Height: 6 feet, 1 inches Weight: 97.5 kg White Owl Body Weight: 245.50 Adjusted Body Weight: 186.38 Other Antibiotics: Zosyn 3.375g IV q6hrs LABS: Last BUN: 23 Last Creatinine: 1.4 Creatinine Clearance: 62 mL/min Last WBC: 7.7 Tmax (past 24 hours): 98.2 Microbiology: none I/O: I: 420; O: not documented A: Patient requires vancomycin for a foot wound, goal trough 10-20 mcg/ml. Patient's SCr is 1.4 with an eCrCl of 62 ml/min. Based on renal function and lower trough goal, will dose vancomycin cautiously: P: 1. Initiate Vancomycin 1250 mg IV q12h 2. Follow up Trough level on 12/10/20 at 0430 3. Pharmacy will continue to monitor, follow and adjust therapy as needed. ROSEMARIE HWANG [facility], 12/08/20 [id number]
[2020-12-08] MEDS: VANCOMYCIN 1.25 GM in IV NORMAL SALINE 250ML 250 ML IV SCH (16:15)
[2020-12-08] MEDS: PIPERACILLIN/TAZOBACTAM 3.375 GM in IV NORMAL SALINE 50ML 50 ML IV SCH ×2 (17:53→22:32)
[2020-12-08 19:00] VITALS: BP 102/45
[2020-12-08] MEDS: LACTOBACILLUS RHAMNOSUS GG 1 CAPSULE. PO SCH (21:00)
[2020-12-08] MEDS: INSULIN GLARGINE SYRINGE. SQ SCH (21:00)
[2020-12-08] MEDS: ATORVASTATIN CALCIUM 40 MG TABLET. PO SCH (21:00)
--- NOTE | 2020-12-08 21:00 | NUR ---
per give 10 units of scheduled lantus due to NPO status
[2020-12-08 23:00] VITALS: BP 96/56
[2020-12-09 03:00] VITALS: BP 101/70
[2020-12-09] MEDS: VANCOMYCIN 1.25 GM in IV NORMAL SALINE 250ML 250 ML IV SCH ×2 (04:30→16:46)
[2020-12-09] MEDS: PIPERACILLIN/TAZOBACTAM 3.375 GM in IV NORMAL SALINE 50ML 50 ML IV SCH ×4 (05:50→23:45)
[2020-12-09 07:00] VITALS: BP 109/72
[2020-12-09] MEDS: INSULIN LISPRO 300 UNITS/3 ML VIAL. SQ SCH ×3 (08:00→17:25)
[2020-12-09] MEDS: METOPROLOL SUCC 24HR ER 50 MG TAB.ER.24H. PO SCH ×2 (09:00→14:10)
[2020-12-09] MEDS: CLOPIDOGREL BISULFATE 75 MG TABLET PO SCH (09:00)
[2020-12-09] MEDS: SENNOSIDES/DOCUSATE 8.6/50MG TABLET. PO SCH ×2 (09:00→20:02)
[2020-12-09] MEDS: ASCORBIC ACID 500 MG TABLET PO SCH (09:00)
[2020-12-09] MEDS: LACTOBACILLUS RHAMNOSUS GG 1 CAPSULE. PO SCH ×2 (09:00→20:02)
[2020-12-09] MEDS: GABAPENTIN 300 MG CAPSULE. PO SCH ×3 (09:00→20:02)
[2020-12-09] MEDS: SPIRONOLACTONE 25 MG TABLET PO SCH (09:00)
[2020-12-09] MEDS: LISINOPRIL 10 MG TABLET PO SCH (09:00)
[2020-12-09] MEDS: AMIODARONE HCL 200 MG TABLET. PO SCH ×2 (09:00→14:10)
[2020-12-09] MEDS: MULTIVITAMIN with MINERAL TABLET. PO SCH (09:00)
[2020-12-09 11:00] VITALS: BP 135/87
[2020-12-09] MEDS ORDERED: LIDOCAINE 1% Multi-Dose 20 ML VIAL. ONE (11:42)
[2020-12-09] MEDS ORDERED: DEXAMETHASONE SOD PHOS 4 MG/ML VIAL ONE (11:42)
[2020-12-09] MEDS ORDERED: LIDOCAINE 2% PF 5 ML VIAL. ONE (11:42)
[2020-12-09] MEDS ORDERED: PROPOFOL 10 MG/ML (20ML) VIAL. IV ONE (11:42)
[2020-12-09] MEDS ORDERED: ONDANSETRON PF 4 MG/2 ML VIAL. ONE (11:43)
[2020-12-09] MEDS ORDERED: INSULIN LISPRO 100 UNIT/ML 3ML VIAL for OP,RR ONLY. SQ PRN (12:00)
[2020-12-09] MEDS ORDERED: MORPHINE SULFATE 2 MG/ML INJ. IVP PRN ×2 (12:00→13:00)
[2020-12-09] MEDS ORDERED: SEVOFLURANE 31 TO 60 MINUTES. IH ONE (12:27)
[2020-12-09] MEDS ORDERED: PHENYLEPHRINE in 0.9% NACL PF 1 MG/10 ML SYRINGE. IV ONE (12:27)
[2020-12-09] MEDS: IV RINGERS,LACTATED 1000ML 1,000 ML IV SCH ×2 (12:32→20:06)
[2020-12-09] MEDS ORDERED: fentaNYL PF VIAL 100 MCG/2 ML VIAL ONE (12:53)
[2020-12-09] MEDS ORDERED: PROCHLORPERAZINE 10 MG/2 ML VIAL. IVP PRN (13:00)
[2020-12-09] MEDS ORDERED: IV RINGERS,LACTATED 1000ML 1,000 ML IV SCH (13:00)
[2020-12-09] MEDS ORDERED: HYDROmorphone 2 MG/ML VIAL IVP PRN (13:00)
[2020-12-09] MEDS ORDERED: fentaNYL PF VIAL 100 MCG/2 ML VIAL IVP PRN ×2 (13:00)
--- NOTE | 2020-12-09 13:09 | OP ---
DATE OF SURGERY: 12/09/2020 ATTENDING SURGEON: Elmer Ulloa DO PREOPERATIVE DIAGNOSES: 1. Right first and second toe paronychial infection with ascending cellulitis. 2. Left first toe paronychial infection with cellulitis. 3. Peripheral arterial disease. 4. Hypertension. 5. Hyperlipidemia. 6. Former tobacco abuse. POSTOPERATIVE DIAGNOSES: 1. Right first and second toe paronychial infection with ascending cellulitis. 2. Left first toe paronychial infection with cellulitis. 3. Peripheral arterial disease. 4. Hypertension. 5. Hyperlipidemia. 6. Former tobacco abuse. PROCEDURES: 1. Right first toenail resection. 2. Sharp excisional debridement of the right first toe isolated to the subcutaneous tissue for a wound area of 3 x 3 cm. 3. Right second toenail removal. 4. Sharp excisional debridement of the right second toe for a wound area of 2 x 1 cm isolated to the subcutaneous tissue. 5. Left first toenail removal. 6. Sharp excisional debridement of the left first toe for a wound area of 2 x 1 cm. ANESTHESIA: General. SPECIMENS: None. ESTIMATED BLOOD LOSS: Minimal. COMPLICATIONS: None. 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 The patient presents with what appears to be a paronychial infection of the right first and second toe as well as the left first toe. I consented him for operative debridement of the toes with possible toe amputation if necessary. The patient understood the risks of the procedure and was agreeable to proceed. DESCRIPTION OF PROCEDURE: The patient was brought to the operating suite, placed in supine position. After establishing appropriate anesthesia, the patient was prepped and draped in sterile fashion. Next, a timeout procedure was performed. It was confirmed that the patient did receive appropriate perioperative antibiotics and the correct operative sites were marked and draped. Following this, starting on the right first toe, the first toenail had evidence of infection in nail bed, which appeared to be tracking to the adjacent soft tissue causing infection. The entire toe was easily from the nail bed. I thus removed the first toenail with a rongeur forceps. Next, I sharply debrided the first toe down to healthy bleeding tissue. There was some bruised tissue underneath the blister, but no gangrenous changes. I did take a wound culture of this area. The total wound area of the first toe on the right was 3 x 3 cm. ____ in similar fashion, the toenail was barely hanging on the nail bed and therefore the entire toenail was removed with a rongeur forceps. Following this, the toe was sharply debrided down to healthy tissue subcutaneously. The total wound area was 2 x 1 cm and I used a 10 blade and scissors to debride the area. In similar fashion, the toes were slightly bruised, but there are no gangrenous tissue. Cultures were also sent. Finally, I focused on the left first toe and in similar fashion, the toenail was also causing what I think was a paronychial infection. The left first toenail was subsequently removed with a rongeur forceps. Next, I sharply debrided the left first toe down to subcutaneous tissue. The total wound area debrided was 2 x 1 cm. Following this, nonadherent dressings were placed and then sterile dressings were placed. The patient tolerated the procedure well and was transferred to the postanesthesia care unit in stable condition. YOSELIN AGUILLON: Abhishek TID: [id number]
--- NOTE | 2020-12-09 15:05 | PDOC ---
[facility] PROGRESS NOTE Date of Service DOS: DATE: 12/09/20 TIME: 15:04 Chief Complaint Chief Complaint Traumatic right lower extremity wound, peripheral arterial disease, CAD, CHF, uncontrolled type 2 diabetes, hyperlipidemia, hypertension -Patient known history of PAD. Stubbed her right great toe 2 days ago and the wound has only been worsening. -Presented to outside hospital with wound has purulent material draining -Patient received a dose of vancomycin and Zosyn at outside hospital. Wound does look infected. Will give another dose of the Zosyn tonight and patient should have adequate coverage until he can be evaluated by surgical team. blood cultures obtained at outside hospital. -Patient would likely need ID consult -Vascular surgery consultedpending MRI and arterial Doppler for further evaluation -As needed pain control -Home meds resumed as indicated -On Eliquis at home. Will switch to weight-based Lovenox to bridge in the event of any intervention History of Present Illness History of Present Illness 65-year-old white male presented to outside emergency room today due to a right lower extremity wound. Patient has known peripheral arterial disease follows with vascular surgery team here. Reports that about 2 days ago he hit his right great toe on a coffee table and has noticed it has been getting more more red swelling and more painful. Noticed that earlier today there was pus coming from under the toenail the toenail was lifting up quite a bit. Because been present to the emergency room today. While there still was evaluated appear to be infected. X-ray showed gas lucencies consistent with a soft tissue infection at the base of the fifth toe? Fifth toe appears somewhat normal on exam we will just repeat the x-ray here. Patient was given a dose of vancomycin and Zosyn blood cultures taken and was recommended for transfer here for higher level of care and wound care and surgical consults. On arrival patient is quite pleasant. Does report some pain in his right foot otherwise really had no complaints. Discussed with him plan of care and he understood. 12/08/20 No acute events overnight. Patient was seen and examined at bedside. Patient wanted to eat and was fidgety. Pending MRI and arterial Doppler of the right lower extremity. 12/09/2020 No acute events overnight. Patient seen and examined resting comfortably in bed. Pending MRI today. Pending surgery today. Patient's chart, labs, images were reviewed and discussed with RN Vitals/I&O Vitals/I&O: Vital Signs Date Time Temp Pulse Resp B/P (MAP) Pulse Ox O2 Delivery O2 Flow Rate FiO2 12/09/20 14:11 Room Air 12/09/20 14:10 114 119/90 12/09/20 13:19 97.1 22 95 97.1 12/09/20 12:49 8 Physical Exam General: Alert, Oriented X3, Cooperative Heart: Regular rate Lungs: Clear Abdomen: Normal bowel sounds Extremities: Other (On great toe there is some purulent discharge from under the toenail. There is otherwise bruising around. Scar of previous vascular surgery present. Difficult to feel pulses if at all. Right lower extremity with seeping wounds) Skin: No rashes, No breakdown Labs Labs: Laboratory Tests Test 12/08/20 17:10 12/08/20 20:36 12/09/20 07:55 12/09/20 07:59 Glucose (Fingerstick) 206 mg/dL (70-99) 268 mg/dL (70-99) 114 mg/dL (70-99) Creatinine 1.0 mg/dL (0.7-1.3) Estimated GFR (Cockcroft-Gault) 75.0 Test 12/09/20 11:43 12/09/20 12:39 12/09/20 14:27 Glucose (Fingerstick) 125 mg/dL (70-99) 128 mg/dL (70-99) 115 mg/dL (70-99) Comment Review of Relevant I have reviewed the following items rachel (where applicable) has been applied. Medications: Current Medications Medications (Trade) Dose Ordered Sig/Lizzeht Route PRN Reason Start Time Stop Time Status Last Admin Dose Admin Piperacillin Sod/ Tazobactam Sod 3.375 gm/Sodium Chloride 50 ml @ 100 mls/hr Q6HRS IV 12/08/20 18:00 12/09/20 11:46 Vancomycin HCl 1.25 gm/Sodium Chloride 250 ml @ 167 mls/hr Q12H IV 12/08/20 17:00 12/09/20 04:30 Vancomycin HCl (Vanco Per Pharmacy) 1 each PRN DAILY PRN MC SEE COMMENTS 12/08/20 16:15 12/08/20 16:06 Ringer's Solution 1,000 ml @ 125 mls/hr Q8H IV 12/09/20 12:45 12/10/20 00:44 12/09/20 12:32 Fentanyl Citrate (Fentanyl 2ml Vial) 50 mcg PRN Q5MIN PRN IVP MODERATE PAIN 4-6 12/09/20 13:00 12/09/20 22:00 12/09/20 12:57 Justifications for Admission Other Justification Chest pain. LAURO NGO MD Dec 09, 2020 15:05
[2020-12-09 15:25] VITALS: BP 49/24
[2020-12-09] MEDS: VANCOMYCIN PER PHARMACY MC PRN (16:42)
[2020-12-09] MEDS: oxyCODONE/APAP 5/325 1 TAB TABLET PO PRN (18:38)
[2020-12-09 19:00] VITALS: BP 108/74
[2020-12-09] MEDS: ATORVASTATIN CALCIUM 40 MG TABLET. PO SCH (20:02)
[2020-12-09] MEDS: ZOLPIDEM 5 MG TABLET. PO PRN ×2 (21:00→23:44)
[2020-12-09] MEDS: INSULIN GLARGINE SYRINGE. SQ SCH (21:07)
[2020-12-09 23:00] VITALS: BP 127/78
[2020-12-10 03:00] VITALS: BP 106/65
[2020-12-10 05:11] LABS: CREATININE 1.6 mg/dL (0.7-1.3); GFR 43.6
[2020-12-10 05:25] LABS: VANC TR 16.5 mcg/mL (10.0-20.0)
[2020-12-10] MEDS: PIPERACILLIN/TAZOBACTAM 3.375 GM in IV NORMAL SALINE 50ML 50 ML IV SCH ×3 (05:25→18:40)
[2020-12-10] MEDS: VANCOMYCIN PER PHARMACY MC PRN ×2 (05:50→10:30)
--- NOTE | 2020-12-10 05:50 | NUR ---
Pharmacy Vancomycin Dosing Note S:Consulted to monitor and dose vancomycin started 12/08/20. O:ELYSSA CONTRERAS is a 65 year old M with foot wound . Height: 6 feet, 1 inches Weight: 97.6 kg [place] Body Weight: 245.50 Adjusted Body Weight: 186.34 Dosing Weight: Other Antibiotics: Zosyn 3.375g IV q6hrs LABS: Last BUN: 23 Last Creatinine: 1.6 Creatinine Clearance: 90 mL/min Last WBC: 7.7 Last Procalcitonin: - Tmax (past 24 hours): 98.2 Microbiology: none I/O: I: 420; O: not documented Drug Levels: Last Trough level: 16.5 on 12/10/20 at 0430 Last dose given at Vancomycin Dosing: Loading Dose: x1 Dosing Weight: Target Trough: 10-20 A: Based on: TROUGH P: 1. Continue Vancomycin 1250 mg IV q12h 2. Follow up Trough level IF NEEDED 3. Pharmacy will continue to monitor, follow and adjust therapy as needed. BIANCA JIANG RPH, 12/10/20 0550 Signed: 12/10/20 at 0551 by BIANCA JIANG RPH PHA
[2020-12-10] MEDS: oxyCODONE/APAP 5/325 1 TAB TABLET PO PRN ×2 (05:54→11:56)
[2020-12-10] MEDS: VANCOMYCIN 1.25 GM in IV NORMAL SALINE 250ML 250 ML IV SCH ×2 (05:55→17:07)
[2020-12-10 07:00] VITALS: BP 119/81
[2020-12-10] MEDS: METOPROLOL SUCC 24HR ER 50 MG TAB.ER.24H. PO SCH (08:28)
[2020-12-10] MEDS: SENNOSIDES/DOCUSATE 8.6/50MG TABLET. PO SCH ×2 (08:28→22:52)
[2020-12-10] MEDS: SPIRONOLACTONE 25 MG TABLET PO SCH (08:28)
[2020-12-10] MEDS: AMIODARONE HCL 200 MG TABLET. PO SCH (08:28)
[2020-12-10] MEDS: ASCORBIC ACID 500 MG TABLET PO SCH (08:28)
[2020-12-10] MEDS: LACTOBACILLUS RHAMNOSUS GG 1 CAPSULE. PO SCH ×2 (08:28→22:52)
[2020-12-10] MEDS: GABAPENTIN 300 MG CAPSULE. PO SCH ×3 (08:28→22:52)
[2020-12-10] MEDS: CLOPIDOGREL BISULFATE 75 MG TABLET PO SCH (08:29)
[2020-12-10] MEDS: LISINOPRIL 10 MG TABLET PO SCH (08:29)
[2020-12-10] MEDS: MULTIVITAMIN with MINERAL TABLET. PO SCH (08:29)
[2020-12-10] MEDS: INSULIN LISPRO 300 UNITS/3 ML VIAL. SQ SCH ×3 (08:36→17:09)
--- NOTE | 2020-12-10 10:17 | NUR ---
SW following. Discussed with RN, pt from home alone, room air, ada diet. Pt had debridement of toe on 12/09/20 - full weight bearing with surgical shoe. Pt cleared by PAT team. RN advised no SW needs at this time. SW will continue to follow.
[2020-12-10 11:00] VITALS: BP 135/80
--- NOTE | 2020-12-10 14:13 | PDOC ---
[facility] [facility] PROGRESS NOTE Date of Service DOS: DATE: 12/10/20 TIME: 14:11 Chief Complaint Chief Complaint Traumatic right lower extremity wound, peripheral arterial disease, CAD, CHF, uncontrolled type 2 diabetes, hyperlipidemia, hypertension status post debridement 12/09/2020 -Patient known history of PAD. Stubbed her right great toe 2 days ago and the wound has only been worsening. -Presented to outside hospital with wound has purulent material draining -Patient received a dose of vancomycin and Zosyn at outside hospital. Wound does look infected. Will give another dose of the Zosyn tonight and patient should have adequate coverage until he can be evaluated by surgical team. blood cultures obtained at outside hospital. -Patient would likely need ID consult -Vascular surgery consultedpending MRI and arterial Doppler for further evaluation -As needed pain control -Home meds resumed as indicated -On Eliquis at home. Will switch to weight-based Lovenox to bridge in the event of any intervention History of Present Illness History of Present Illness 65-year-old white male presented to outside emergency room today due to a right lower extremity wound. Patient has known peripheral arterial disease follows with vascular surgery team here. Reports that about 2 days ago he hit his right great toe on a coffee table and has noticed it has been getting more more red swelling and more painful. Noticed that earlier today there was pus coming from under the toenail the toenail was lifting up quite a bit. Because been present to the emergency room today. While there still was evaluated appear to be infected. X-ray showed gas lucencies consistent with a soft tissue infection at the base of the fifth toe? Fifth toe appears somewhat normal on exam we will just repeat the x-ray here. Patient was given a dose of vancomycin and Zosyn blood cultures taken and was recommended for transfer here for higher level of care and wound care and surgical consults. On arrival patient is quite pleasant. Does report some pain in his right foot otherwise really had no complaints. Discussed with him plan of care and he understood. 12/08/20 No acute events overnight. Patient was seen and examined at bedside. Patient wanted to eat and was fidgety. Pending MRI and arterial Doppler of the right lower extremity. 12/09/2020 No acute events overnight. Patient seen and examined resting comfortably in bed. Pending MRI today. Pending surgery today. Patient's chart, labs, images were reviewed and discussed with ALLYSON 12/09/2020 No acute events overnight. Patient status post surgery. Patient seen and examined bedside. Pain is well controlled. PT OT pending. Patient's chart, labs, images were reviewed and discussed with RN Vitals/I&O Vitals/I&O: Vital Signs Date Time Temp Pulse Resp B/P (MAP) Pulse Ox O2 Delivery O2 Flow Rate FiO2 12/10/20 12:26 94 Room Air 12/10/20 11:00 97.4 106 20 135/80 (98) 97.4 12/09/20 12:49 8 I & O 12/09/20 12/09/20 12/10/20 15:00 23:00 07:00 Intake Total 650 ml 300 ml Balance 650 ml 300 ml Physical Exam General: Alert, Oriented X3, Cooperative Heart: Regular rate Lungs: Clear Abdomen: Normal bowel sounds Extremities: Other (On great toe there is some purulent discharge from under the toenail. There is otherwise bruising around. Scar of previous vascular surgery present. Difficult to feel pulses if at all. Right lower extremity with seeping wounds) Skin: No rashes, No breakdown Labs Labs: Laboratory Tests Test 12/09/20 14:27 12/09/20 17:08 12/09/20 20:19 12/10/20 04:30 Glucose (Fingerstick) 115 mg/dL (70-99) 195 mg/dL (70-99) 324 mg/dL (70-99) Creatinine 1.6 mg/dL (0.7-1.3) Estimated GFR (Cockcroft-Gault) 43.6 Vancomycin Level Trough 16.5 mcg/mL (10.0-20.0) Vancomycin Last Dose Date 12/09/20 Vancomycin Last Dose Time 1700 Test 12/10/20 07:28 12/10/20 11:41 Glucose (Fingerstick) 300 mg/dL (70-99) 332 mg/dL (70-99) Comment Review of Relevant I have reviewed the following items rachel (where applicable) has been applied. Justifications for Admission Other Justification Chest pain. LAURO NGO MD Dec 10, 2020 14:13
[2020-12-10 14:32] LABS: BASO % 0 % (0-3); EOS % 0 % (0-3); HEMATOCRIT 35.4 % (39.0-53.0); LYMPH # 0.8 x10^3/uL (1.0-4.8); LYMPH % 11 % (24-48); MEAN CORPUSCULAR HEMOGLOBIN 20 pg (25-35); MEAN CORPUSCULAR HGB CONC 28 g/dL (31-37); MEAN CORPUSCULAR VOLUME 71 fL (79-100); MONO # 0.5 x10^3/uL (0.0-1.1); MONO % 8 % (0-9); NEUT # 5.9 x10^3/uL (1.8-7.7); NEUT % 81 % (31-73); PLATELET COUNT 322 x10^3/uL (140-400); RED BLOOD COUNT 5.02 x10^6/uL (4.30-5.70); RED CELL DISTRIBUTION WIDTH 21.9 % (11.5-14.5); WHITE BLOOD COUNT 7.3 x10^3/uL (4.0-11.0)
[2020-12-10 14:35] LABS: CALCIUM 8.2 mg/dL (8.5-10.1); CREATININE 1.7 mg/dL (0.7-1.3); GFR 40.7; MAGNESIUM 1.9 mg/dL (1.8-2.4)
[2020-12-10 15:00] VITALS: BP 105/74
--- NOTE | 2020-12-10 15:10 | NUR ---
Thru out the day today patient has appeared restless with slurred/garbled speech. Patient states "he always talks like that" but it makes it hard to understand him at times. Due to this, he gets agitated very quickly and has been yelling at staff and to his friends over the phone which can be heard from the nurses station. Patients agitation, restlessness, and headache is continuing to get worse thru out the day. Patient has a history of ETOH abuse and meth abuse per health history and wound care clinics report since he is a patient of theirs. Dr Champion notified and [facility] protocol started. Will continue to monitor.
--- NOTE | 2020-12-10 15:25 | PDOC ---
PROGRESS NOTES Date of Service DATE: 12/10/20 TIME: 15:11 Subjective Subjective Patient seen and examined in room. Patient lying comfortably in bed. Patient states pain is much improved since surgery. Objective Objective Vital Signs Date Time Temp Pulse Resp B/P (MAP) Pulse Ox O2 Delivery O2 Flow Rate FiO2 12/10/20 12:26 94 Room Air 12/10/20 11:00 97.4 106 20 135/80 (98) 97.4 12/09/20 12:49 8 Intake and Output 12/10/20 07:00 Intake Total 950 ml Balance 950 ml Intake Oral 300 ml IV Total 650 ml # Voids 3 Physical Exam Physical Exam Awake and alert Vital signs stable, afebrile Right first and second toe wounds are clean, pink. No purulent drainage. No swelling or erythema in forefoot. Left first toe wound is clean, no purulent drainage. No swelling or erythema in forefoot. 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 The patient presents with what appears to be a paronychial infection of the right first and second toe as well as the left first toe. POD #1 right first toenail resection, excisional debridement of right first toe subcutaneous tissue. Right second toe nail removal with sharp excisional debridement of subcutaneous tissue. Left first toenail removal with excisional debridement of left first toe wound Patient has had improvement in forefoot cellulitis. Recommend continue local wound care. Recommend patient follow-up in our office in 2 to 3 weeks. Recommend continued follow-up in the wound care center. Comment Review of Relevant I have reviewed the following items rachel (where applicable) has been applied. Labs Laboratory Tests Test 12/08/20 17:10 12/08/20 20:36 12/09/20 07:55 12/09/20 07:59 Glucose (Fingerstick) 206 mg/dL (70-99) 268 mg/dL (70-99) 114 mg/dL (70-99) Creatinine 1.0 mg/dL (0.7-1.3) Estimated GFR (Cockcroft-Gault) 75.0 Test 12/09/20 11:43 12/09/20 12:39 12/09/20 14:27 12/09/20 17:08 Glucose (Fingerstick) 125 mg/dL (70-99) 128 mg/dL (70-99) 115 mg/dL (70-99) 195 mg/dL (70-99) Test 12/09/20 20:19 12/10/20 04:30 12/10/20 07:28 12/10/20 11:41 Glucose (Fingerstick) 324 mg/dL (70-99) 300 mg/dL (70-99) 332 mg/dL (70-99) White Blood Count 7.3 x10^3/uL (4.0-11.0) Red Blood Count 5.02 x10^6/uL (4.30-5.70) Hemoglobin 10.0 g/dL (13.0-17.5) Hematocrit 35.4 % (39.0-53.0) Mean Corpuscular Volume 71 fL (79-100) Mean Corpuscular Hemoglobin 20 pg (25-35) Mean Corpuscular Hemoglobin Concent 28 g/dL (31-37) Red Cell Distribution Width 21.9 % (11.5-14.5) Platelet Count 322 x10^3/uL (140-400) Neutrophils (%) (Auto) 81 % (31-73) Lymphocytes (%) (Auto) 11 % (24-48) Monocytes (%) (Auto) 8 % (0-9) Eosinophils (%) (Auto) 0 % (0-3) Basophils (%) (Auto) 0 % (0-3) Neutrophils # (Auto) 5.9 x10^3/uL (1.8-7.7) Lymphocytes # (Auto) 0.8 x10^3/uL (1.0-4.8) Monocytes # (Auto) 0.5 x10^3/uL (0.0-1.1) Eosinophils # (Auto) 0.0 x10^3/uL (0.0-0.7) Basophils # (Auto) 0.0 x10^3/uL (0.0-0.2) Sodium Level 132 mmol/L (136-145) Potassium Level 5.0 mmol/L (3.5-5.1) Chloride Level 101 mmol/L (98-107) Carbon Dioxide Level 18 mmol/L (21-32) Anion Gap 13 (6-14) Blood Urea Nitrogen 26 mg/dL (8-26) Creatinine 1.7 mg/dL (0.7-1.3) Estimated GFR (Cockcroft-Gault) 40.7 Glucose Level 254 mg/dL (70-99) Calcium Level 8.2 mg/dL (8.5-10.1) Magnesium Level 1.9 mg/dL (1.8-2.4) Vancomycin Level Trough 16.5 mcg/mL (10.0-20.0) Vancomycin Last Dose Date 12/09/20 Vancomycin Last Dose Time 1700 Laboratory Tests Test 12/09/20 17:08 12/09/20 20:19 12/10/20 04:30 12/10/20 07:28 Glucose (Fingerstick) 195 mg/dL (70-99) 324 mg/dL (70-99) 300 mg/dL (70-99) White Blood Count 7.3 x10^3/uL (4.0-11.0) Red Blood Count 5.02 x10^6/uL (4.30-5.70) Hemoglobin 10.0 g/dL (13.0-17.5) Hematocrit 35.4 % (39.0-53.0) Mean Corpuscular Volume 71 fL (79-100) Mean Corpuscular Hemoglobin 20 pg (25-35) Mean Corpuscular Hemoglobin Concent 28 g/dL (31-37) Red Cell Distribution Width 21.9 % (11.5-14.5) Platelet Count 322 x10^3/uL (140-400) Neutrophils (%) (Auto) 81 % (31-73) Lymphocytes (%) (Auto) 11 % (24-48) Monocytes (%) (Auto) 8 % (0-9) Eosinophils (%) (Auto) 0 % (0-3) Basophils (%) (Auto) 0 % (0-3) Neutrophils # (Auto) 5.9 x10^3/uL (1.8-7.7) Lymphocytes # (Auto) 0.8 x10^3/uL (1.0-4.8) Monocytes # (Auto) 0.5 x10^3/uL (0.0-1.1) Eosinophils # (Auto) 0.0 x10^3/uL (0.0-0.7) Basophils # (Auto) 0.0 x10^3/uL (0.0-0.2) Sodium Level 132 mmol/L (136-145) Potassium Level 5.0 mmol/L (3.5-5.1) Chloride Level 101 mmol/L (98-107) Carbon Dioxide Level 18 mmol/L (21-32) Anion Gap 13 (6-14) Blood Urea Nitrogen 26 mg/dL (8-26) Creatinine 1.7 mg/dL (0.7-1.3) Estimated GFR (Cockcroft-Gault) 40.7 Glucose Level 254 mg/dL (70-99) Calcium Level 8.2 mg/dL (8.5-10.1) Magnesium Level 1.9 mg/dL (1.8-2.4) Vancomycin Level Trough 16.5 mcg/mL (10.0-20.0) Vancomycin Last Dose Date 12/09/20 Vancomycin Last Dose Time 1700 Test 12/10/20 11:41 Glucose (Fingerstick) 332 mg/dL (70-99) Microbiology 12/09/20 Gram Stain - Final, Resulted 12/09/20 Aerobic and Anaerobic Culture, Resulted Pending Medications Current Medications Ondansetron HCl (Zofran) 4 mg PRN Q6HRS PRN IVP NAUSEA/VOMITING; Start 12/07/20 at 18:15 Calcium Carbonate/ Glycine (Tums) 500 mg PRN Q3HRS PRN PO UPSET STOMACH; Start 12/07/20 at 18:15 Zolpidem Tartrate (Ambien) 5 mg PRN QHS PRN PO INSOMNIA, MAY REPEAT IN 1HR Last administered on 12/09/20at 23:44; Start 12/07/20 at 18:15 Info (Non-Icu Electrolyte Protocol) 1 ea PRN DAILY PRN MC SEE COMMENTS; Start 12/07/20 at 18:15 Oxycodone/ Acetaminophen (Percocet 5/325) 1 tab PRN Q4HRS PRN PO MILD PAIN, 1ST CHOICE Last administered on 12/10/20at 05:54; Start 12/07/20 at 18:15 Oxycodone/ Acetaminophen (Percocet 5/325) 2 tab PRN Q4HRS PRN PO MODERATE PAIN, SEVERE PAIN Last administered on 12/10/20at 11:56; Start 12/07/20 at 18:15 Acetaminophen (Tylenol) 650 mg PRN Q6HRS PRN PO Headaches, Temp > 101.5F; Start 12/07/20 at 18:15 Senna/Docusate Sodium (Senna Plus) 1 tab BID PO Last administered on 12/10/20at 08:28; Start 12/07/20 at 21:00 Amiodarone HCl (Cordarone) 200 mg DAILY PO Last administered on 12/10/20at 08 :28; Start 12/08/20 at 09:00 Atorvastatin Calcium (Lipitor) 40 mg QHS PO Last administered on 12/09/20at 20:02; Start 12/07/20 at 21:00 Clopidogrel Bisulfate (Plavix) 75 mg DAILY PO Last administered on 12/10/20 08:29; Start 12/08/20 at 09:00 Lisinopril (Prinivil) 10 mg DAILY PO Last administered on 12/10/20at 08:29; Start 12/08/20 at 09:00 Metoprolol Succinate (Toprol Xl) 150 mg DAILY PO Last administered on 12/10/20at 08:28; Start 12/08/20 at 09:00 Spironolactone (Aldactone) 25 mg DAILY PO Last administered on 12/10/20at 08:28; Start 12/08/20 at 09:00 Gabapentin (Neurontin) 300 mg TID PO Last administered on 12/10/20at 13:53; Start 12/07/20 at 21:00 Enoxaparin Sodium (Lovenox Per Pharmacy Treatment Dosing) 1 each PRN DAILY PRN MC SEE COMMENTS; Start 12/07/20 at 18:15 Piperacillin Sod/ Tazobactam Sod (Zosyn Per Pharmacy) 1 each PRN DAILY PRN MC SEE COMMENTS; Start 12/07/20 at 18:45; Stop 12/07/20 at 18:42; Status DC Insulin Glargine (Lantus Syringe) 20 unit QHS SQ Last administered on 1 at 21:07; Start 12/07/20 at 21:00 Insulin Human Lispro (HumaLOG) TIDWMEALS SQ Last administered on 12/10/20at 11:59; Start 12/08/20 at 08:00 Dextrose (Dextrose 50%-Water Syringe) 12.5 gm PRN Q15MIN PRN IV SEE COMMENTS; Start 12/07/20 at 18:45 Enoxaparin Sodium (Lovenox 100mg Syringe) 95 mg Q12HR SQ Last administered on 12/10/20at 08:29; Start 12/07/20 at 21:00 Piperacillin Sod/ Tazobactam Sod 4.5 gm/Sodium Chloride 100 ml @ 200 mls/hr 1X IV ; Start 12/07/20 at 20:00; Stop 12/08/20 at 10:12; Status DC Piperacillin Sod/ Tazobactam Sod 4.5 gm/Sodium Chloride 100 ml @ 200 mls/hr 1X ONCE IV Last administered on 12/08/20at 10:59; Start 12/08/20 at 10:15; Stop 12/08/20 at 10:44; Status DC Multivitamins (Thera M Plus) 1 tab DAILY PO Last administered on 12/10/20at 08:29; Start 12/08/20 at 13:00 Ascorbic Acid (Vitamin C) 500 mg DAILY PO Last administered on 12/10/20at 08:28; Start 12/08/20 at 13:00 Piperacillin Sod/ Tazobactam Sod 3.375 gm/Sodium Chloride 50 ml @ 100 mls/hr Q6HRS IV Last administered on 12/10/20at 11:05; Start 12/08/20 at 18:00 Vancomycin HCl 1.25 gm/Sodium Chloride 250 ml @ 167 mls/hr Q12H IV Last administered on 12/10/20at 05:55; Start 12/08/20 at 17:00 Vancomycin HCl (Vancomycin Trough Level) 1 each 1X ONCE MC ; Start 12/10/20 at 04:30; Stop 12/10/20 at 04:31; Status DC Vancomycin HCl (Vanco Per Pharmacy) 1 each PRN DAILY PRN MC SEE COMMENTS Last administered on 12/10/20at 10:30; Start 12/08/20 at 16:15 Lactobacillus Rhamnosus (Culturelle) 1 cap BID PO Last administered on 12/10/20at 08:28; Start 12/08/20 at 21:00 Lidocaine HCl (Lidocaine 1% 20ml Vial) 20 ml STK-MED ONCE .ROUTE ; Start 12/09/20 at 11:42; Stop 12/09/20 at 11:43; Status DC Propofol (Diprivan) 200 mg STK-MED ONCE IV ; Start 12/09/20 at 11:42; Stop 12/09/20 at 11:43; Status DC Lidocaine HCl (Lidocaine Pf 2% Vial) 5 ml STK-MED ONCE .ROUTE ; Start 12/09/20 at 11:42; Stop 12/09/20 at 11:43; Status DC Dexamethasone Sodium Phosphate (Decadron) 4 mg STK-MED ONCE .ROUTE ; Start 12/09/20 at 11:42; Stop 12/09/20 at 11:43; Status DC Ondansetron HCl (Zofran) 4 mg STK-MED ONCE .ROUTE ; Start 12/09/20 at 11:43; Stop 12/09/20 at 11:43; Status DC Insulin Human Lispro (HumaLOG VIAL for OP,RR ONLY) 0-10 units PRN Q1HR PRN SQ PER PROTOCOL; Start 12/09/20 at 12:00; Stop 12/10/20 at 11:59; Status DC Morphine Sulfate (Morphine Sulfate) 2 mg PRN Q2HR PRN IVP MODERATE TO SEVERE PAIN; Start 12/09/20 at 12:00 Phenylephrine HCl (PHENYLEPHRINE in 0.9% NACL PF) 1 mg STK-MED ONCE IV ; Start 12/09/20 at 12:27; Stop 12/09/20 at 12:27; Status DC Sevoflurane (Ultane) 30 ml STK-MED ONCE IH ; Start 12/09/20 at 12:27; Stop 12/09/20 at 12:27; Status DC Ringer's Solution 1,000 ml @ 125 mls/hr Q8H IV Last administered on 12/09/20at 12:32; Start 12/09/20 at 12:45; Stop 12/10/20 at 00:44; Status DC Fentanyl Citrate (Fentanyl 2ml Vial) 100 mcg STK-MED ONCE .ROUTE ; Start 12/09/20 at 12:53; Stop 12/09/20 at 12:53; Status DC Fentanyl Citrate (Fentanyl 2ml Vial) 25 mcg PRN Q5MIN PRN IVP MILD PAIN 1-3; Start 12/09/20 at 13:00; Stop 12/09/20 at 22:00; Status DC Fentanyl Citrate (Fentanyl 2ml Vial) 50 mcg PRN Q5MIN PRN IVP MODERATE PAIN 4-6 Last administered on 12/09/20at 12:57; Start 12/09/20 at 13:00; Stop 12/09/20 at 22:00; Status DC Morphine Sulfate (Morphine Sulfate) 1 mg PRN Q10MIN PRN IVP SEVERE PAIN 7-10; Start 12/09/20 at 13:00; Stop 12/09/20 at 22:00; Status DC Ringer's Solution 1,000 ml @ 30 mls/hr Q24H IV ; Start 12/09/20 at 13:00; Stop 12/10/20 at 00:59; Status DC Hydromorphone HCl (Dilaudid) 0.5 mg PRN Q10MIN PRN IVP SEVERE PAIN 7-10, 2nd CHOICE; Start 12/09/20 at 13:00; Stop 12/09/20 at 22:00; Status DC Prochlorperazine Edisylate (Compazine) 5 mg PACU PRN PRN IVP NAUSEA, MRX1; Start 12/09/20 at 13:00; Stop 12/09/20 at 22:00; Status DC Lorazepam (Ativan Inj) 2 mg PRN Q1HR PRN IV For CIWA 8-14; Start 12/10/20 at 14:45 Lorazepam (Ativan Inj) 4 mg PRN Q1HR PRN IV For CIWA 15 or greater Last administered on 12/10/20at 14:56; Start 12/10/20 at 14:45 Active Scripts Active Aldactone (Spironolactone) 25 Mg Tablet 25 Mg PO DAILY 30 Days Metoprolol Succinate ( Xl ) (Metoprolol Succinate) 100 Mg Tab.er.24h 150 Mg PO DAILY 30 Days Amiodarone Hcl 200 Mg Tablet 200 Mg PO DAILY 30 Days Levemir (Insulin Detemir) 100 Unit/1 Ml Vial 55 Unit SQ QHS 30 Days Clopidogrel (Clopidogrel Bisulfate) 75 Mg Tablet 1 Tab PO DAILY Atorvastatin Calcium 40 Mg Tablet 40 Mg PO QHS 30 Days Reported Klor-Con M20 (Potassium Chloride) 20 Meq Tab.er.prt 1 Tab PO DAILY 30 Days Gabapentin 300 Mg Capsule 300 Mg PO TID Furosemide 80 Mg Tablet 1 Tab PO DAILY Lisinopril 10 Mg Tablet 1 Tab PO DAILY Metformin Hcl 1,000 Mg Tablet 1,000 Mg PO BIDWMEALS Novolog Flexpen (Insulin Aspart) 100 Unit/1 Ml Insuln.pen 10 Unit SQ TIDWMEALS Eliquis (Apixaban) 5 Mg Tablet 5 Mg PO BID Vitals/I & O Vital Sign - Last 24 Hours 12/09/20 12/09/20 12/09/20 12/09/20 15:25 18:38 19:00 19:12 Temp 97.5 97.4 97.5 97.4 Pulse 112 105 Resp 18 20 B/P (MAP) 49/24 (32) 108/74 (85) Pulse Ox 97 98 O2 Delivery Room Air Room Air Room Air Room Air 12/09/20 12/09/20 12/10/20 12/10/20 20:00 23:00 03:00 07:00 Temp 97.2 97.4 97.4 97.2 97.4 97.4 Pulse 97 106 106 Resp 20 20 20 B/P (MAP) 127/78 (94) 106/65 (79) 119/81 (94) Pulse Ox 98 95 95 O2 Delivery Room Air Room Air Room Air Room Air 12/10/20 12/10/20 12/10/20 12/10/20 07:54 08:28 08:28 08:29 Pulse 106 106 106 O2 Delivery Room Air 12/10/20 12/10/20 12/10/20 11:00 11:56 12:26 Temp 97.4 97.4 Pulse 106 Resp 20 B/P (MAP) 135/80 (98) Pulse Ox 94 94 O2 Delivery Room Air Room Air Room Air Intake and Output 12/09/20 12/09/20 12/10/20 15:00 23:00 07:00 Intake Total 650 ml 300 ml Balance 650 ml 300 ml Justifications for Admission Other Justification Chest pain. JOSE F BAUMAN APRN Dec 10, 2020 15:25
--- NOTE | 2020-12-10 15:46 | NUR ---
Wound/Ostomy Care Wound Type/Assessment: Patient seen per wound care consult. See wound assessment. Patient is well known to us from the wound clinic and previous admissions. Patient is known for heavy ETOH use and drug use, patient going through withdrawl at this time. Patient is s/p I&D with toenail removal with Dr. Ulloa on 12/09/20 to the left great toe, right great toe, and right 2nd toe DFUs. Wounds cleansed, assessed, measured, and pictured. Wounds appear clean and healthy red granulation tissue. Patient is not awake at the time of assessment, RN stated she had given him Ativan prior to our arrival. Treatment Recommendations/Plan: Recommendations for xeroform gauze, cover with gauze pads and wrap with kerlix. Change daily. Dressings applied. No other wounds noted. Education provided: Unable to educated at this time due to mental status. Offloading surface/device: Patient to wear post-op shoes for ambulation, but he has stated previously that he would not wear the post-op shoes. Recommended Referrals/Tests: Patient to follow up with surgeon and/or wound care. Discharge Recommendations for dressings: Dressing change instructions left in room. Bed lowered and call light in reach and bed alarm in place. Wound care will follow up on 12/15/20.
[2020-12-10 19:30] VITALS: BP 108/74
[2020-12-10] MEDS: ATORVASTATIN CALCIUM 40 MG TABLET. PO SCH (22:52)
[2020-12-10] MEDS: INSULIN GLARGINE SYRINGE. SQ SCH (23:04)
[2020-12-10 23:27] VITALS: BP 97/66
[2020-12-11] MEDS: PIPERACILLIN/TAZOBACTAM 3.375 GM in IV NORMAL SALINE 50ML 50 ML IV SCH ×5 (00:09→23:53)
[2020-12-11 03:16] VITALS: BP 110/68
[2020-12-11] MEDS: VANCOMYCIN 1.25 GM in IV NORMAL SALINE 250ML 250 ML IV SCH ×2 (04:36→17:45)
[2020-12-11 07:00] VITALS: BP 120/91
[2020-12-11] MEDS: GABAPENTIN 300 MG CAPSULE. PO SCH ×3 (08:37→20:41)
[2020-12-11] MEDS: MULTIVITAMIN with MINERAL TABLET. PO SCH (08:38)
[2020-12-11] MEDS: SPIRONOLACTONE 25 MG TABLET PO SCH (08:38)
[2020-12-11] MEDS: LISINOPRIL 10 MG TABLET PO SCH (08:38)
[2020-12-11] MEDS: METOPROLOL SUCC 24HR ER 50 MG TAB.ER.24H. PO SCH (08:38)
[2020-12-11] MEDS: CLOPIDOGREL BISULFATE 75 MG TABLET PO SCH (08:38)
[2020-12-11] MEDS: LACTOBACILLUS RHAMNOSUS GG 1 CAPSULE. PO SCH ×2 (08:38→20:41)
[2020-12-11] MEDS: AMIODARONE HCL 200 MG TABLET. PO SCH (08:39)
[2020-12-11] MEDS: ASCORBIC ACID 500 MG TABLET PO SCH (08:39)
[2020-12-11] MEDS: INSULIN LISPRO 300 UNITS/3 ML VIAL. SQ SCH ×3 (08:43→17:13)
[2020-12-11] MEDS: SENNOSIDES/DOCUSATE 8.6/50MG TABLET. PO SCH ×2 (08:48→20:41)
[2020-12-11 09:12] LABS: CREATININE 1.4 mg/dL (0.7-1.3); GFR 50.9
[2020-12-11] MEDS: VANCOMYCIN PER PHARMACY MC PRN (10:51)
[2020-12-11] MEDS: oxyCODONE/APAP 5/325 1 TAB TABLET PO PRN ×2 (11:36→23:57)
--- NOTE | 2020-12-11 12:26 | PDOC ---
[facility] PROGRESS NOTE Date of Service DOS: DATE: 12/11/20 TIME: 12:19 Chief Complaint Chief Complaint Traumatic right lower extremity wound, peripheral arterial disease, CAD, CHF, uncontrolled type 2 diabetes, hyperlipidemia, hypertension status post Right first toenail resection, excisional debridement of right first toe subcutaneous tissue. Right second toe nail removal with sharp excisional debridement of subcutaneous tissue. Left first toenail removal with excisional debridement of left first toe wound -Patient known history of PAD. Stubbed her right great toe 2 days ago and the wound has only been worsening. -Presented to outside hospital with wound has purulent material draining -Patient received a dose of vancomycin and Zosyn at outside hospital. Wound does look infected. Will give another dose of the Zosyn tonight and patient should have adequate coverage until he can be evaluated by surgical team. blood cultures obtained at outside hospital. -Patient would likely need ID consult -Vascular surgery consultedpending MRI and arterial Doppler for further evaluation -As needed pain control -Home meds resumed as indicated -On Eliquis at home. Will switch to weight-based Lovenox to bridge in the event of any intervention History of Present Illness History of Present Illness 65-year-old white male presented to outside emergency room today due to a right lower extremity wound. Patient has known peripheral arterial disease follows with vascular surgery team here. Reports that about 2 days ago he hit his right great toe on a coffee table and has noticed it has been getting more more red swelling and more painful. Noticed that earlier today there was pus coming from under the toenail the toenail was lifting up quite a bit. Because been present to the emergency room today. While there still was evaluated appear to be infected. X-ray showed gas lucencies consistent with a soft tissue infection at the base of the fifth toe? Fifth toe appears somewhat normal on exam we will just repeat the x-ray here. Patient was given a dose of vancomycin and Zosyn blood cultures taken and was recommended for transfer here for higher level of care and wound care and s urgical consults. On arrival patient is quite pleasant. Does report some pain in his right foot otherwise really had no complaints. Discussed with him plan of care and he understood. 12/08/20 No acute events overnight. Patient was seen and examined at bedside. Patient wanted to eat and was fidgety. Pending MRI and arterial Doppler of the right lower extremity. 12/09/2020 No acute events overnight. Patient seen and examined resting comfortably in bed. Pending MRI today. Pending surgery today. Patient's chart, labs, images were reviewed and discussed with RN 12/09/2020 No acute events overnight. Patient status post surgery. Patient seen and examined bedside. Pain is well controlled. PT OT pending. Patient's chart, labs, images were reviewed and discussed with RN 12/11/2020 No acute events overnight. Patient seen and examined bedside. Patient was sleeping pill at 9:00 in the morning. Explained to patient that he needed to work with physical therapy today and mobilize more. Patient groaned continue to find a bed with his eyes closed. No complaints of pain at this time. No concerns with nursing at this time. Patient's chart, labs, images were reviewed and discussed with RN Vitals/I&O Vitals/I&O: Vital Signs Date Time Temp Pulse Resp B/P (MAP) Pulse Ox O2 Delivery O2 Flow Rate FiO2 12/11/20 11:36 Room Air 12/11/20 08:39 93 120/91 12/11/20 07:00 98.1 17 94 98.1 I & O 12/10/20 12/10/20 12/11/20 15:00 23:00 07:00 Intake Total 450 ml 650 ml Output Total 600 ml Balance 450 ml 50 ml Physical Exam General: Alert, Oriented X3, Cooperative Heart: Regular rate Lungs: Clear Abdomen: Normal bowel sounds Extremities: Other (On great toe there is some purulent discharge from under the toenail. There is otherwise bruising around. Scar of previous vascular surgery present. Difficult to feel pulses if at all. Right lower extremity with seeping wounds) Skin: No rashes, No breakdown Labs Labs: Laboratory Tests Test 12/10/20 16:42 12/10/20 19:45 12/11/20 06:20 12/11/20 07:01 Glucose (Fingerstick) 300 mg/dL (70-99) 225 mg/dL (70-99) 180 mg/dL (70-99) Creatinine 1.4 mg/dL (0.7-1.3) Estimated GFR (Cockcroft-Gault) 50.9 Test 12/11/20 11:17 Glucose (Fingerstick) 219 mg/dL (70-99) Comment Review of Relevant I have reviewed the following items rachel (where applicable) has been applied. Medications: Current Medications Medications (Trade) Dose Ordered Sig/Lizzeth Route PRN Reason Start Time Stop Time Status Last Admin Dose Admin Lorazepam (Ativan Inj) 4 mg PRN Q1HR PRN IV For CIWA 15 or greater 12/10/20 14:45 12/10/20 14:56 Enoxaparin Sodium (Lovenox 100mg Syringe) 100 mg Q12HR SQ 12/10/20 21:00 12/11/20 08:37 Justifications for Admission Other Justification Chest pain. LAURO NGO MD Dec 11, 2020 12:26
[2020-12-11 15:00] VITALS: BP 130/90
[2020-12-11 19:00] VITALS: BP 114/67
[2020-12-11] MEDS: ATORVASTATIN CALCIUM 40 MG TABLET. PO SCH (20:41)
[2020-12-11] MEDS: APIXABAN 5 MG TABLET. PO SCH (20:41)
[2020-12-11] MEDS: INSULIN GLARGINE SYRINGE. SQ SCH (20:44)
[2020-12-11 23:00] VITALS: BP 127/72
[2020-12-12 03:00] VITALS: BP 149/77
[2020-12-12] MEDS: VANCOMYCIN 1.25 GM in IV NORMAL SALINE 250ML 250 ML IV SCH ×2 (04:27→17:01)
[2020-12-12] MEDS: PIPERACILLIN/TAZOBACTAM 3.375 GM in IV NORMAL SALINE 50ML 50 ML IV SCH ×3 (06:00→17:53)
[2020-12-12 07:00] VITALS: BP 135/87
[2020-12-12] MEDS: SENNOSIDES/DOCUSATE 8.6/50MG TABLET. PO SCH ×2 (07:14→22:15)
[2020-12-12] MEDS: ASCORBIC ACID 500 MG TABLET PO SCH (07:57)
[2020-12-12] MEDS: AMIODARONE HCL 200 MG TABLET. PO SCH (07:57)
[2020-12-12] MEDS: METOPROLOL SUCC 24HR ER 50 MG TAB.ER.24H. PO SCH (07:57)
[2020-12-12] MEDS: GABAPENTIN 300 MG CAPSULE. PO SCH ×3 (07:57→22:16)
[2020-12-12] MEDS: CLOPIDOGREL BISULFATE 75 MG TABLET PO SCH (07:57)
[2020-12-12] MEDS: SPIRONOLACTONE 25 MG TABLET PO SCH (07:58)
[2020-12-12] MEDS: APIXABAN 5 MG TABLET. PO SCH ×2 (07:58→22:16)
[2020-12-12] MEDS: MULTIVITAMIN with MINERAL TABLET. PO SCH (07:58)
[2020-12-12] MEDS: LACTOBACILLUS RHAMNOSUS GG 1 CAPSULE. PO SCH ×2 (07:58→22:15)
[2020-12-12] MEDS: LISINOPRIL 10 MG TABLET PO SCH (07:58)
[2020-12-12] MEDS: INSULIN LISPRO 300 UNITS/3 ML VIAL. SQ SCH ×4 (08:04→18:07)
[2020-12-12] MEDS: VANCOMYCIN PER PHARMACY MC PRN (10:35)
[2020-12-12 11:00] VITALS: BP 116/74
--- NOTE | 2020-12-12 13:23 | PDOC ---
[facility] PROGRESS NOTE Date of Service DOS: DATE: 12/12/20 TIME: 13:16 Chief Complaint Chief Complaint Traumatic right lower extremity wound, peripheral arterial disease, CAD, CHF, uncontrolled type 2 diabetes, hyperlipidemia, hypertension status post Right first toenail resection, excisional debridement of right first toe subcutaneous tissue. Right second toe nail removal with sharp excisional debridement of subcutaneous tissue. Left first toenail removal with excisional debridement of left first toe wound -Patient known history of PAD. Stubbed her right great toe 2 days ago and the wound has only been worsening. -Presented to outside hospital with wound has purulent material draining -Patient received a dose of vancomycin and Zosyn at outside hospital. Wound does look infected. Will give another dose of the Zosyn tonight and patient should have adequate coverage until he can be evaluated by surgical team. blood cultures obtained at outside hospital. -Patient would likely need ID consult -Vascular surgery consultedpending MRI and arterial Doppler for further evaluation -As needed pain control -Home meds resumed as indicated -On Eliquis at home. Will switch to weight-based Lovenox to bridge in the event of any intervention History of Present Illness History of Present Illness 65-year-old white male presented to outside emergency room today due to a right lower extremity wound. Patient has known peripheral arterial disease follows with vascular surgery team here. Reports that about 2 days ago he hit his right great toe on a coffee table and has noticed it has been getting more more red swelling and more painful. Noticed that earlier today there was pus coming from under the toenail the toenail was lifting up quite a bit. Because been present to the emergency room today. While there still was evaluated appear to be infected. X-ray showed gas lucencies consistent with a soft tissue infection at the base of the fifth toe? Fifth toe appears somewhat normal on exam we will just repeat the x-ray here. Patient was given a dose of vancomycin and Zosyn blood cultures taken and was recommended for transfer here for higher level of care and wound care and s urgical consults. On arrival patient is quite pleasant. Does report some pain in his right foot otherwise really had no complaints. Discussed with him plan of care and he understood. 12/08/20 No acute events overnight. Patient was seen and examined at bedside. Patient wanted to eat and was fidgety. Pending MRI and arterial Doppler of the right lower extremity. 12/09/2020 No acute events overnight. Patient seen and examined resting comfortably in bed. Pending MRI today. Pending surgery today. Patient's chart, labs, images were reviewed and discussed with RN 12/09/2020 No acute events overnight. Patient status post surgery. Patient seen and examined bedside. Pain is well controlled. PT OT pending. Patient's chart, labs, images were reviewed and discussed with RN 12/11/2020 No acute events overnight. Patient seen and examined bedside. Patient was sleeping pill at 9:00 in the morning. Explained to patient that he needed to work with physical therapy today and mobilize more. Patient groaned continue to find a bed with his eyes closed. No complaints of pain at this time. No concerns with nursing at this time. Patient's chart, labs, images were reviewed and discussed with RN 12/12/2020 No acute events overnight. Patient seen examined bedside. Awaiting for final cultures before discharge. Continue with wound care and PT OT. Patient's chart, labs, images were reviewed and discussed with RN Vitals/I&O Vitals/I&O: Vital Signs Date Time Temp Pulse Resp B/P (MAP) Pulse Ox O2 Delivery O2 Flow Rate FiO2 12/12/20 11:00 98.0 68 18 116/74 (88) 93 Room Air 98.0 12/12/20 00:27 8.0 I & O 12/11/20 12/11/20 12/12/20 15:00 23:00 07:00 Intake Total 250 ml Balance 250 ml Physical Exam General: Alert, Oriented X3, Cooperative Heart: Regular rate Lungs: Clear Abdomen: Normal bowel sounds Extremities: Other (On great toe there is some purulent discharge from under the toenail. There is otherwise bruising around. Scar of previous vascular surgery present. Difficult to feel pulses if at all. Right lower extremity with seeping wounds) Skin: No rashes, No breakdown Labs Labs: Laboratory Tests Test 12/11/20 16:50 12/11/20 20:11 12/12/20 08:01 12/12/20 11:31 Glucose (Fingerstick) 270 mg/dL (70-99) 348 mg/dL (70-99) 271 mg/dL (70-99) 266 mg/dL (70-99) Comment Review of Relevant I have reviewed the following items rachel (where applicable) has been applied. Medications: Current Medications Medications (Trade) Dose Ordered Sig/Lizzeth Route PRN Reason Start Time Stop Time Status Last Admin Dose Admin Apixaban (Eliquis) 5 mg BID PO 12/11/20 21:00 12/12/20 07:58 Justifications for Admission Other Justification Chest pain. LAURO NGO MD Dec 12, 2020 13:23
[2020-12-12 15:00] VITALS: BP 114/65
[2020-12-12] MEDS ORDERED: FUROSEMIDE 40 MG/4 ML VIAL. IVP ONE (17:30)
[2020-12-12 19:00] VITALS: BP 143/85
[2020-12-12] MEDS: ATORVASTATIN CALCIUM 40 MG TABLET. PO SCH (22:15)
[2020-12-12] MEDS: ZOLPIDEM 5 MG TABLET. PO PRN (22:34)
[2020-12-12] MEDS: INSULIN GLARGINE SYRINGE. SQ SCH (22:36)
[2020-12-12 22:51] VITALS: BP 125/83
[2020-12-13] MEDS: PIPERACILLIN/TAZOBACTAM 3.375 GM in IV NORMAL SALINE 50ML 50 ML IV SCH ×4 (01:31→16:55)
[2020-12-13 03:00] VITALS: BP 123/75
[2020-12-13] MEDS: VANCOMYCIN 1.25 GM in IV NORMAL SALINE 250ML 250 ML IV SCH ×2 (06:35→17:55)
[2020-12-13 07:00] VITALS: BP 122/69
[2020-12-13 07:08] LABS: BASO # 0.1 x10^3/uL (0.0-0.2); BASO % 1 % (0-3); EOS # 0.3 x10^3/uL (0.0-0.7); EOS % 3 % (0-3); HEMOGLOBIN 9.9 g/dL (13.0-17.5); LYMPH # 1.4 x10^3/uL (1.0-4.8); LYMPH % 17 % (24-48); MEAN CORPUSCULAR HEMOGLOBIN 20 pg (25-35); MEAN CORPUSCULAR HGB CONC 29 g/dL (31-37); MEAN CORPUSCULAR VOLUME 68 fL (79-100); MONO # 1.1 x10^3/uL (0.0-1.1); MONO % 14 % (0-9); NEUT # 5.3 x10^3/uL (1.8-7.7); NEUT % 65 % (31-73); PLATELET COUNT 281 x10^3/uL (140-400); RED BLOOD COUNT 4.99 x10^6/uL (4.30-5.70); RED CELL DISTRIBUTION WIDTH 21.8 % (11.5-14.5); WHITE BLOOD COUNT 8.2 x10^3/uL (4.0-11.0)
[2020-12-13 07:26] LABS: CALCIUM 8.2 mg/dL (8.5-10.1); CREATININE 1.2 mg/dL (0.7-1.3); GFR 60.8; MAGNESIUM 1.8 mg/dL (1.8-2.4); PHOSPHORUS 1.9 mg/dL (2.6-4.7); POTASSIUM 4.1 mmol/L (3.5-5.1)
[2020-12-13] MEDS: SENNOSIDES/DOCUSATE 8.6/50MG TABLET. PO SCH ×2 (07:34→21:19)
[2020-12-13] MEDS: AMIODARONE HCL 200 MG TABLET. PO SCH (08:17)
[2020-12-13] MEDS: GABAPENTIN 300 MG CAPSULE. PO SCH ×3 (08:18→21:18)
[2020-12-13] MEDS: LISINOPRIL 10 MG TABLET PO SCH (08:18)
[2020-12-13] MEDS: ASCORBIC ACID 500 MG TABLET PO SCH (08:18)
[2020-12-13] MEDS: CLOPIDOGREL BISULFATE 75 MG TABLET PO SCH (08:18)
[2020-12-13] MEDS: APIXABAN 5 MG TABLET. PO SCH ×2 (08:18→21:18)
[2020-12-13] MEDS: LACTOBACILLUS RHAMNOSUS GG 1 CAPSULE. PO SCH ×2 (08:19→21:18)
[2020-12-13] MEDS: METOPROLOL SUCC 24HR ER 50 MG TAB.ER.24H. PO SCH (08:19)
[2020-12-13] MEDS: MULTIVITAMIN with MINERAL TABLET. PO SCH (08:20)
[2020-12-13] MEDS: oxyCODONE/APAP 5/325 1 TAB TABLET PO PRN (08:22)
[2020-12-13] MEDS: INSULIN LISPRO 300 UNITS/3 ML VIAL. SQ SCH ×6 (08:24→18:00)
--- NOTE | 2020-12-13 08:31 | PDOC ---
Provider Note Date of Service: DATE: 12/13/20 TIME: 08:30 Provider Note Provider Note Vascular S: Patient sitting on edge of bed, he is without complaints. O: Awake and alert Vital signs stable, afebrile Right first and second toe wounds are clean, pink, with small area of discoloration on tip of second and pad of first. No purulent drainage. No swelling or erythema in forefoot. Left first toe wound is clean, pink, no purulent drainage. No swelling or erythema in forefoot. 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 The patient presents with what appears to be a paronychial infection of the right first and second toe as well as the left first toe. POD #4 right first toenail resection, excisional debridement of right first toe subcutaneous tissue. Right second toe nail removal with sharp excisional debri violetta of subcutaneous tissue. Left first toenail removal with excisional debridement of left first toe wound Patient has had improvement in forefoot cellulitis. Recommend continue local wound care. Monitor closely for wound healing. Recommend patient follow-up in our office in 2 to 3 weeks. Recommend continued follow-up in the wound care center. Justicifation of Admission Dx: Justifications for Admission: Justification of Admission Dx: Yes IN: Acute NSTEMI JOSE F BAUMAN SAFETY COUNCIL DIRECTOR Dec 13, 2020 08:31
[2020-12-13] MEDS: SPIRONOLACTONE 25 MG TABLET PO SCH (09:00)
[2020-12-13 11:00] VITALS: BP 99/59
--- NOTE | 2020-12-13 13:48 | PDOC ---
[employer] PROGRESS NOTE Date of Service DOS: DATE: 12/13/20 TIME: 13:45 Chief Complaint Chief Complaint Traumatic right lower extremity wound, peripheral arterial disease, CAD, CHF, uncontrolled type 2 diabetes, hyperlipidemia, hypertension status post Right first toenail resection, excisional debridement of right first toe subcutaneous tissue. Right second toe nail removal with sharp excisional debridement of subcutaneous tissue. Left first toenail removal with excisional debridement of left first toe wound -Patient known history of PAD. Stubbed her right great toe 2 days ago and the wound has only been worsening. -Presented to outside hospital with wound has purulent material draining -Patient received a dose of vancomycin and Zosyn at outside hospital. Wound does look infected. Will give another dose of the Zosyn tonight and patient should have adequate coverage until he can be evaluated by surgical team. blood cultures obtained at outside hospital. -Patient would likely need ID consult -Vascular surgery consultedpending MRI and arterial Doppler for further evaluation -As needed pain control -Home meds resumed as indicated -On Eliquis at home. Will switch to weight-based Lovenox to bridge in the event of any intervention History of Present Illness History of Present Illness 65-year-old white male presented to outside emergency room today due to a right lower extremity wound. Patient has known peripheral arterial disease follows with vascular surgery team here. Reports that about 2 days ago he hit his right great toe on a coffee table and has noticed it has been getting more more red swelling and more painful. Noticed that earlier today there was pus coming from under the toenail the toenail was lifting up quite a bit. Because been present to the emergency room today. While there still was evaluated appear to be infected. X-ray showed gas lucencies consistent with a soft tissue infection at the base of the fifth toe? Fifth toe appears somewhat normal on exam we will just repeat the x-ray here. Patient was given a dose of vancomycin and Zosyn blood cultures taken and was recommended for transfer here for higher level of care and wound care and s urgical consults. On arrival patient is quite pleasant. Does report some pain in his right foot otherwise really had no complaints. Discussed with him plan of care and he understood. 12/08/20 No acute events overnight. Patient was seen and examined at bedside. Patient wanted to eat and was fidgety. Pending MRI and arterial Doppler of the right lower extremity. 12/09/2020 No acute events overnight. Patient seen and examined resting comfortably in bed. Pending MRI today. Pending surgery today. Patient's chart, labs, images were reviewed and discussed with RN 12/09/2020 No acute events overnight. Patient status post surgery. Patient seen and examined bedside. Pain is well controlled. PT OT pending. Patient's chart, labs, images were reviewed and discussed with RN 12/11/2020 No acute events overnight. Patient seen and examined bedside. Patient was sleeping pill at 9:00 in the morning. Explained to patient that he needed to work with physical therapy today and mobilize more. Patient groaned continue to find a bed with his eyes closed. No complaints of pain at this time. No concerns with nursing at this time. Patient's chart, labs, images were reviewed and discussed with RN 12/12/2020 No acute events overnight. Patient seen examined bedside. Awaiting for final cultures before discharge. Continue with wound care and PT/OT. Patient's chart, labs, images were reviewed and discussed with RN 12/13: Afebrile. POD #4, s/p right first toe nail resection with I&D, right second toenail removal, left first toenail removal with I&D. Continue IV antibiotics and local wound care. Follow cultures and sensitivities. Vitals/I&O Vitals/I&O: Vital Signs Date Time Temp Pulse Resp B/P (MAP) Pulse Ox O2 Delivery O2 Flow Rate FiO2 12/13/20 11:00 86 20 99/59 (72) 94 Room Air 12/13/20 03:00 4.0 12/12/20 19:00 98.2 98.2 I & O 12/12/20 12/12/20 12/13/20 15:00 23:00 07:00 Intake Total 250 ml 400 ml Output Total 900 ml 1700 ml Balance 250 ml -900 ml -1300 ml Physical Exam General: Alert, Oriented X3, Cooperative Heart: Regular rate Lungs: Clear Abdomen: Normal bowel sounds Extremities: Other (On great toe there is some purulent discharge from under t he toenail. There is otherwise bruising around. Scar of previous vascular surgery present. Difficult to feel pulses if at all. Right lower extremity with seeping wounds) Skin: No rashes, No breakdown Labs Labs: Laboratory Tests Test 12/12/20 16:46 12/12/20 21:02 12/13/20 06:20 12/13/20 07:10 Glucose (Fingerstick) 221 mg/dL (70-99) 216 mg/dL (70-99) 231 mg/dL (70-99) White Blood Count 8.2 x10^3/uL (4.0-11.0) Red Blood Count 4.99 x10^6/uL (4.30-5.70) Hemoglobin 9.9 g/dL (13.0-17.5) Hematocrit 34.0 % (39.0-53.0) Mean Corpuscular Volume 68 fL (79-100) Mean Corpuscular Hemoglobin 20 pg (25-35) Mean Corpuscular Hemoglobin Concent 29 g/dL (31-37) Red Cell Distribution Width 21.8 % (11.5-14.5) Platelet Count 281 x10^3/uL (140-400) Neutrophils (%) (Auto) 65 % (31-73) Lymphocytes (%) (Auto) 17 % (24-48) Monocytes (%) (Auto) 14 % (0-9) Eosinophils (%) (Auto) 3 % (0-3) Basophils (%) (Auto) 1 % (0-3) Neutrophils # (Auto) 5.3 x10^3/uL (1.8-7.7) Lymphocytes # (Auto) 1.4 x10^3/uL (1.0-4.8) Monocytes # (Auto) 1.1 x10^3/uL (0.0-1.1) Eosinophils # (Auto) 0.3 x10^3/uL (0.0-0.7) Basophils # (Auto) 0.1 x10^3/uL (0.0-0.2) Sodium Level 135 mmol/L (136-145) Potassium Level 4.1 mmol/L (3.5-5.1) Chloride Level 102 mmol/L (98-107) Carbon Dioxide Level 22 mmol/L (21-32) Anion Gap 11 (6-14) Blood Urea Nitrogen 18 mg/dL (8-26) Creatinine 1.2 mg/dL (0.7-1.3) Estimated GFR (Cockcroft-Gault) 60.8 Glucose Level 251 mg/dL (70-99) Calcium Level 8.2 mg/dL (8.5-10.1) Phosphorus Level 1.9 mg/dL (2.6-4.7) Magnesium Level 1.8 mg/dL (1.8-2.4) Test 12/13/20 12:02 Glucose (Fingerstick) 242 mg/dL (70-99) Comment Review of Relevant I have reviewed the following items rachel (where applicable) has been applied. Medications: Current Medications Medications (Trade) Dose Ordered Sig/Lizzeth Route PRN Reason Start Time Stop Time Status Last Admin Dose Admin Insulin Human Lispro (HumaLOG) 5 units TIDWMEALS SQ 12/12/20 17:00 12/13/20 12:51 Furosemide (Lasix) 40 mg 1X ONCE IVP 12/12/20 17:30 12/12/20 17:31 DC 12/12/20 17:53 Justifications for Admission Other Justification Chest pain. BENITO OJEDA MD Dec 13, 2020 13:48
[2020-12-13] MEDS: VANCOMYCIN PER PHARMACY MC PRN (14:20)
[2020-12-13 15:00] VITALS: BP 103/67
[2020-12-13 19:24] VITALS: BP 126/86
[2020-12-13] MEDS: ATORVASTATIN CALCIUM 40 MG TABLET. PO SCH (21:18)
[2020-12-13] MEDS: ZOLPIDEM 5 MG TABLET. PO PRN (21:18)
[2020-12-13] MEDS: INSULIN GLARGINE SYRINGE. SQ SCH (21:22)
[2020-12-13 22:52] VITALS: BP 149/83
[2020-12-14] MEDS: PIPERACILLIN/TAZOBACTAM 3.375 GM in IV NORMAL SALINE 50ML 50 ML IV SCH ×3 (00:25→11:54)
[2020-12-14 03:08] VITALS: BP 140/84
[2020-12-14] MEDS: VANCOMYCIN 1.25 GM in IV NORMAL SALINE 250ML 250 ML IV SCH (05:10)
[2020-12-14 07:00] VITALS: BP 130/82
[2020-12-14] MEDS: INSULIN LISPRO 300 UNITS/3 ML VIAL. SQ SCH ×4 (08:00→12:32)
[2020-12-14] MEDS: METOPROLOL SUCC 24HR ER 50 MG TAB.ER.24H. PO SCH (08:06)
[2020-12-14] MEDS: ASCORBIC ACID 500 MG TABLET PO SCH (08:06)
[2020-12-14] MEDS: GABAPENTIN 300 MG CAPSULE. PO SCH ×2 (08:06→13:11)
[2020-12-14] MEDS: LISINOPRIL 10 MG TABLET PO SCH (08:06)
[2020-12-14] MEDS: APIXABAN 5 MG TABLET. PO SCH (08:07)
[2020-12-14] MEDS: CLOPIDOGREL BISULFATE 75 MG TABLET PO SCH (08:07)
[2020-12-14] MEDS: SENNOSIDES/DOCUSATE 8.6/50MG TABLET. PO SCH (08:07)
[2020-12-14] MEDS: SPIRONOLACTONE 25 MG TABLET PO SCH (08:07)
[2020-12-14] MEDS: LACTOBACILLUS RHAMNOSUS GG 1 CAPSULE. PO SCH (08:07)
[2020-12-14] MEDS: AMIODARONE HCL 200 MG TABLET. PO SCH (08:08)
[2020-12-14] MEDS: MULTIVITAMIN with MINERAL TABLET. PO SCH (08:08)
[2020-12-14 11:00] VITALS: BP 108/56
--- NOTE | 2020-12-14 12:51 | PDOC ---
Provider Note Date of Service: DATE: 12/14/20 TIME: 12:50 Provider Note Provider Note Vascular S: Patient sitting on edge of bed, he is without complaints. O: Awake and alert Vital signs stable, afebrile Right first and second toe wounds are clean, pink, with small area of discoloration on tip of second, this is improved from yesterday and pad of first. No purulent drainage. No swelling or erythema in forefoot. Left first toe wound is clean, pink, no purulent drainage. No swelling or erythema in forefoot. 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 The patient presents with what appears to be a paronychial infection of the right first and second toe as well as the left first toe. POD #5 right first toenail resection, excisional debridement of right first toe subcutaneous tissue. Right second toe nail removal with sharp excisional debridement of subcutaneous tissue. Left first toenail removal with excisional debridement of left first toe wound Patient has had improvement in forefoot cellulitis. Recommend continue local wound care. Monitor closely for wound healing. Recommend patient follow-up in our office in 2 to 3 weeks. Recommend continued follow-up in the wound care center. Justicifation of Admission Dx: Justifications for Admission: Justification of Admission Dx: Yes NM: Acute NSTEMI JOSE F BAUMAN APRN Dec 14, 2020 12:51
--- NOTE | 2020-12-14 14:26 | PDOC ---
[employer] PROGRESS NOTE Date of Service DOS: DATE: 12/14/20 TIME: 14:24 Chief Complaint Chief Complaint Traumatic right lower extremity wound, peripheral arterial disease, CAD, CHF, uncontrolled type 2 diabetes, hyperlipidemia, hypertension status post Right first toenail resection, excisional debridement of right first toe subcutaneous tissue. Right second toe nail removal with sharp excisional debridement of subcutaneous tissue. Left first toenail removal with excisional debridement of left first toe wound -Patient known history of PAD. Stubbed her right great toe 2 days ago and the wound has only been worsening. -Presented to outside hospital with wound has purulent material draining -Patient received a dose of vancomycin and Zosyn at outside hospital. Wound does look infected. Will give another dose of the Zosyn tonight and patient should have adequate coverage until he can be evaluated by surgical team. blood cultures obtained at outside hospital. -Patient would likely need ID consult -Vascular surgery consultedpending MRI and arterial Doppler for further evaluation -As needed pain control -Home meds resumed as indicated -On Eliquis at home. Will switch to weight-based Lovenox to bridge in the event of any intervention History of Present Illness History of Present Illness 65-year-old white male presented to outside emergency room today due to a right lower extremity wound. Patient has known peripheral arterial disease follows with vascular surgery team here. Reports that about 2 days ago he hit his right great toe on a coffee table and has noticed it has been getting more more red swelling and more painful. Noticed that earlier today there was pus coming from under the toenail the toenail was lifting up quite a bit. Because been present to the emergency room today. While there still was evaluated appear to be infected. X-ray showed gas lucencies consistent with a soft tissue infection at the base of the fifth toe? Fifth toe appears somewhat normal on exam we will just repeat the x-ray here. Patient was given a dose of vancomycin and Zosyn blood cultures taken and was recommended for transfer here for higher level of care and wound care and s urgical consults. On arrival patient is quite pleasant. Does report some pain in his right foot otherwise really had no complaints. Discussed with him plan of care and he understood. 12/08/20 No acute events overnight. Patient was seen and examined at bedside. Patient wanted to eat and was fidgety. Pending MRI and arterial Doppler of the right lower extremity. 12/09/2020 No acute events overnight. Patient seen and examined resting comfortably in bed. Pending MRI today. Pending surgery today. Patient's chart, labs, images were reviewed and discussed with RN 12/09/2020 No acute events overnight. Patient status post surgery. Patient seen and examined bedside. Pain is well controlled. PT OT pending. Patient's chart, labs, images were reviewed and discussed with RN 12/11/2020 No acute events overnight. Patient seen and examined bedside. Patient was sleeping pill at 9:00 in the morning. Explained to patient that he needed to work with physical therapy today and mobilize more. Patient groaned continue to find a bed with his eyes closed. No complaints of pain at this time. No concerns with nursing at this time. Patient's chart, labs, images were reviewed and discussed with RN 12/12/2020 No acute events overnight. Patient seen examined bedside. Awaiting for final cultures before discharge. Continue with wound care and PT/OT. Patient's chart, labs, images were reviewed and discussed with RN 12/13: Afebrile. POD #4, s/p right first toe nail resection with I&D, right second toenail removal, left first toenail removal with I&D. Continue IV antibiotics and local wound care. Follow cultures and sensitivities. 12/14: Afebrile. POD #5, s/p right first toe nail resection with I&D, right second toenail removal, left first toenail removal with I&D. Final cultures growing staph epidermidis. Cellulitis appears to be clinically improving. Per vascular surgery, recommend continued local wound care, recommend continued follow-up at wound care center, and follow-up in vascular surgery office in 2-3 weeks. Will discharge on short course of oral antibiotics and as needed pain medications. Greater than 30 minutes spent managing discharge this patient. Vitals/I&O Vitals/I&O: Vital Signs Date Time Temp Pulse Resp B/P (MAP) Pulse Ox O2 Delivery O2 Flow Rate FiO2 12/14/20 11:00 97.7 90 18 108/56 (73) 95 Room Air 97.7 12/14/20 08:00 2.0 I & O 12/13/20 12/13/20 12/14/20 15:00 23:00 07:00 Intake Total 240 ml 490 ml Output Total 250 ml 425 ml Balance 240 ml -250 ml 65 ml Physical Exam General: Alert, Oriented X3, Cooperative Heart: Regular rate Lungs: Clear Abdomen: Normal bowel sounds Extremities: Other (On great toe there is some purulent discharge from under the toenail. There is otherwise bruising around. Scar of previous vascular surgery present. Difficult to feel pulses if at all. Right lower extremity with seeping wounds) Skin: No rashes, No breakdown Labs Labs: Laboratory Tests Test 12/13/20 16:59 12/13/20 20:29 12/14/20 07:18 12/14/20 10:38 Glucose (Fingerstick) 236 mg/dL (70-99) 255 mg/dL (70-99) 142 mg/dL (70-99) 210 mg/dL (70-99) Comment Review of Relevant I have reviewed the following items rachel (where applicable) has been applied. Justifications for Admission Other Justification Chest pain. BENITO OJEDA MD Dec 14, 2020 14:26
--- NOTE | 2020-12-14 14:34 | PDOC3 ---
Discharge Summary Visit Information Date of Admission: Dec 07, 2020 Date of Discharge: Dec 14, 2020 Brief Hospital Course Allergies Allergies Coded Allergies Type Severity Reaction Last Updated Verified No Known Drug Allergies 02/27/17 No Vital Signs Vital Signs Date Time Temp Pulse Resp B/P (MAP) Pulse Ox O2 Delivery O2 Flow Rate FiO2 12/14/20 11:00 97.7 90 18 108/56 (73) 95 Room Air 97.7 12/14/20 08:00 2.0 Lab Results Laboratory Tests Test 12/12/20 16:46 12/12/20 21:02 12/13/20 06:20 12/13/20 07:10 Glucose (Fingerstick) 221 mg/dL (70-99) 216 mg/dL (70-99) 231 mg/dL (70-99) White Blood Count 8.2 x10^3/uL (4.0-11.0) Red Blood Count 4.99 x10^6/uL (4.30-5.70) Hemoglobin 9.9 g/dL (13.0-17.5) Hematocrit 34.0 % (39.0-53.0) Mean Corpuscular Volume 68 fL (79-100) Mean Corpuscular Hemoglobin 20 pg (25-35) Mean Corpuscular Hemoglobin Concent 29 g/dL (31-37) Red Cell Distribution Width 21.8 % (11.5-14.5) Platelet Count 281 x10^3/uL (140-400) Neutrophils (%) (Auto) 65 % (31-73) Lymphocytes (%) (Auto) 17 % (24-48) Monocytes (%) (Auto) 14 % (0-9) Eosinophils (%) (Auto) 3 % (0-3) Basophils (%) (Auto) 1 % (0-3) Neutrophils # (Auto) 5.3 x10^3/uL (1.8-7.7) Lymphocytes # (Auto) 1.4 x10^3/uL (1.0-4.8) Monocytes # (Auto) 1.1 x10^3/uL (0.0-1.1) Eosinophils # (Auto) 0.3 x10^3/uL (0.0-0.7) Basophils # (Auto) 0.1 x10^3/uL (0.0-0.2) Sodium Level 135 mmol/L (136-145) Potassium Level 4.1 mmol/L (3.5-5.1) Chloride Level 102 mmol/L (98-107) Carbon Dioxide Level 22 mmol/L (21-32) Anion Gap 11 (6-14) Blood Urea Nitrogen 18 mg/dL (8-26) Creatinine 1.2 mg/dL (0.7-1.3) Estimated GFR (Cockcroft-Gault) 60.8 Glucose Level 251 mg/dL (70-99) Calcium Level 8.2 mg/dL (8.5-10.1) Phosphorus Level 1.9 mg/dL (2.6-4.7) Magnesium Level 1.8 mg/dL (1.8-2.4) Test 12/13/20 12:02 12/13/20 16:59 12/13/20 20:29 12/14/20 07:18 Glucose (Fingerstick) 242 mg/dL (70-99) 236 mg/dL (70-99) 255 mg/dL (70-99) 142 mg/dL (70-99) Test 12/14/20 10:38 Glucose (Fingerstick) 210 mg/dL (70-99) Laboratory Tests Test 12/13/20 16:59 12/13/20 20:29 12/14/20 07:18 12/14/20 10:38 Glucose (Fingerstick) 236 mg/dL (70-99) 255 mg/dL (70-99) 142 mg/dL (70-99) 210 mg/dL (70-99) Brief Hospital Course Mr. Bruno is a 65 old male with known chronic peripheral artery disease and no superficial femoral artery occlusive disease on right, who presented with: Traumatic right lower extremity wound Paronychial infection of the right first and second toe as well as the left first toe. Peripheral arterial disease History of Present Illness 65-year-old white male presented to outside emergency room today due to a right lower extremity wound. Patient has known peripheral arterial disease follows with vascular surgery team here. Reports that about 2 days ago he hit his right great toe on a coffee table and has noticed it has been getting more more red swelling and more painful. Noticed that earlier today there was pus coming from under the toenail the toenail was lifting up quite a bit. Because been present to the emergency room today. While there still was evaluated appear to be infected. X-ray showed gas lucencies consistent with a soft tissue infection at the base of the fifth toe? Fifth toe appears somewhat normal on exam we will just repeat the x-ray here. Patient was given a dose of vancomycin and Zosyn blood cultures taken and was recommended for transfer here for higher level of care and wound care and surgical consults. On arrival patient is quite pleasant. Does report some pain in his right foot otherwise really had no complaints. Discussed with him plan of care and he understood. 12/08/20 Vascular surgery was consulted and patient taken to the OR. S/P right first toenail resection, excisional debridement of right first toe subcutaneous tissue. Right second toe nail removal with sharp excisional debridement of subcutaneous tissue. Left first toenail removal with excisional debridement of left first toe wound. No acute events overnight. Patient was seen and examined at bedside. Patient wanted to eat and was fidgety. Pending MRI and arterial Doppler of the right lower extremity. 12/09/2020 No acute events overnight. Patient seen and examined resting comfortably in bed. Pending MRI today. Pending surgery today. Patient's chart, labs, images were reviewed and discussed with RN 12/09/2020 No acute events overnight. Patient status post surgery. Patient seen and examined bedside. Pain is well controlled. PT OT pending. Patient's chart, labs, images were reviewed and discussed with RN 12/11/2020 No acute events overnight. Patient seen and examined bedside. Patient was sleeping pill at 9:00 in the morning. Explained to patient that he needed to work with physical therapy today and mobilize more. Patient groaned continue to find a bed with his eyes closed. No complaints of pain at this time. No concerns with nursing at this time. Patient's chart, labs, images were reviewed and discussed with RN 12/12/2020 No acute events overnight. Patient seen examined bedside. Awaiting for final cultures before discharge. Continue with wound care and PT/OT. Patient's chart, labs, images were reviewed and discussed with RN 12/13: Afebrile. POD #4, s/p right first toe nail resection with I&D, right second toenail removal, left first toenail removal with I&D. Continue IV antibiotics and local wound care. Follow cultures and sensitivities. 12/14: Afebrile. POD #5, s/p right first toe nail resection with I&D, right second toenail removal, left first toenail removal with I&D. Final cultures growing staph epidermidis. Cellulitis appears to be clinically improving. Per vascular surgery, recommend continued local wound care, recommend continued fo llow-up at wound care center, and follow-up in vascular surgery office in 2-3 weeks. Will discharge on short course of oral antibiotics and as needed pain medications. Greater than 30 minutes spent managing discharge this patient. Discharge Information Condition at Discharge: Improved Disposition/Orders: D/C to Home Scheduled Amiodarone Hcl (Amiodarone Hcl) 200 Mg Tablet, 200 MG PO DAILY for AFIB for 30 Days, #30 Ref 3 Prescribed by: LIANG CASTELAN on 06/30/20 1219 Last Action: Reviewed on 12/07/201838 by BRENDA HI Apixaban (Eliquis) 5 Mg Tablet, 5 MG PO BID, (Reported) Entered as Reported by: URVASHI VANCE on 10/19/17 1311 Last Action: Reviewed on 12/07/201838 by BRENDA HI Atorvastatin Calcium (Atorvastatin Calcium) 40 Mg Tablet, 40 MG PO QHS for 30 Days, #30 Prescribed by: JACINTO LOVE MD on 08/07/16 1121 Last Action: Reviewed on 12/07/201838 by BRENDA HI Clopidogrel Bisulfate (Clopidogrel) 75 Mg Tablet, 1 TAB PO DAILY, #90 Ref 1 Prescribed by: CHUY FLEMING on 10/12/16 1610 Last Action: Reviewed on 12/07/201838 by BRENDA HI Furosemide (Furosemide) 80 Mg Tablet, 1 TAB PO DAILY for CHF, #30 Ref 5 (Reported) Entered as Reported by: ALLISON BRUNO RN on 11/14/20 1151 Last Action: Reviewed on 12/07/201846 by BRENDA HI Gabapentin (Gabapentin) 300 Mg Capsule, 300 MG PO TID for NEUROGENIC PAIN, (Reported) Entered as Reported by: BRENDA HI on 12/07/201846 Last Taken: Unknown Dose on Unknown Date & Time Last Action: Reviewed on 12/07/201846 by BRENDA HI Insulin Aspart (Novolog Flexpen) 100 Unit/1 Ml Insuln.pen, 10 UNIT SQ TIDWMEALS for , (Reported) Entered as Reported by: TIM HUMPHREY, RN on 06/06/18 0802 Last Action: Reviewed on 12/07/201838 by BRENDA HI Insulin Detemir (Levemir) 100 Unit/1 Ml Vial, 55 UNIT SQ QHS for 30 Days Prescribed by: AYE VIRK on 03/05/17 1623 Last Action: Reviewed on 12/07/201838 by BRENDA HI Lisinopril (Lisinopril) 10 Mg Tablet, 1 TAB PO DAILY for htn, #30 Ref 5 (Reported) Entered as Reported by: ALLISON BRUNO RN on 11/14/20 1151 Last Action: Reviewed on 12/07/201838 by BRENDA HI Metformin Hcl (Metformin Hcl) 1,000 Mg Tablet, 1,000 MG PO BIDWMEALS for DM-2, (Reported) Entered as Reported by: ENRIQUETA PEREZ RN on 02/18/20 0755 Last Action: Reviewed on 12/07/201846 by BRENDA HI Metoprolol Succinate (Metoprolol Succinate ( Xl )) 100 Mg Tab.er.24h, 150 MG PO DAILY for CHF for 30 Days, #45 Ref 2 Prescribed by: BENITO OEJDA MD on 11/17/201457 Last Action: Reviewed on 12/07/201838 by BRENDA HI Potassium Chloride (Klor-Con M20) 20 Meq Tab.er.prt, 1 TAB PO DAILY for supplement for 30 Days, #30 Ref 0 (Reported) Entered as Reported by: BRENDA HI on 12/07/201846 Last Action: Reviewed on 12/07/201846 by BRENDA HI Spironolactone (Aldactone) 25 Mg Tablet, 25 MG PO DAILY for CHF for 30 Days, #30 Ref 2 Prescribed by: BENITO OJEDA MD on 11/17/201457 Last Action: Reviewed on 12/07/201838 by BRENDA HI Justicifation of Admission Dx: Justifications for Admission: Justification of Admission Dx: Yes ND: Acute NSTEMI BENITO OJEDA MD Dec 14, 2020 14:34
[2020-12-14] MEDS ORDERED: AMOX1TAB61 PO (14:38)
[2020-12-14] MEDS ORDERED: OXYC1TAB19 PO (14:38)
--- NOTE | 2020-12-14 14:43 | SNU/HH DC ---
DISCHARGE WITH HOME HEALTH DISCHARGE INFORMATION: Discharge Date: Dec 14, 2020 Condition on Discharge: Stable CODE STATUS: Code Status: Full HOME HEALTH: Face to Face: I certify this patient is under my care and that I, or a nurse practitioner or hubert seaman's assistant director of admissions working with me, had a face to face encounter that meets the physician face to face encounter requirements with this patient on 12/14/2020. RN For Eval/Treatment: Yes Pt Meets Homebound Status: Poor coordination w/ amb., Limited distance walking POST DISCHARGE ORDERS: Activity Instructions for Disc: Activity as tolerated Weight Bearing Status after Di: As tolerated Bathing Instructions: No Tub Bath until see DIET AFTER DISCHARGE: Cardiac Wound/Incision Care: Keep wound/cast CDI, Change dressing CHECKS AFTER DISCHARGE: Checks after discharge: Check blood press - daily, Check blood sugar, ac/hs, Weigh Yourself Daily FOLLOW-UP: Follow Up With: Wound care 12/20 5660 TREATMENT/EQUIPMENT ORDERS: Adaptive Equipment Issued: None CERTIFICATION STATEMENT: Certification Statement: Certification Statement: Based on the above finding, I certify that this patient is confined to the home and needs intermittent custodial care, physical therapy and/or speech therapy, or continues to need occupational therapy.~ This patient is under my care, and I have initiated the establishment of the plan of care.~ This patient will be followed by myself or a community physician who will periodically review the plan of care. Home Meds Active Scripts Oxycodone/Apap 7.5-325 (PERCOCET 7.5-325 MG TABLET ) 1 Each Tablet, 1 TAB PO QIDPRN PRN for PAIN MDD 4 Tablet(s) for 7 Days, #28 TAB 0 Refills Prov:BENITO OJEDA MD 12/14/20 Spironolactone (ALDACTONE) 25 Mg Tablet, 25 MG PO DAILY for CHF for 30 Days, #30 TAB 2 Refills Prov:BENITO OJEDA MD 11/17/20 Metoprolol Succinate (METOPROLOL SUCCINATE ( XL )) 100 Mg Tab.er.24h, 150 MG PO DAILY for CHF for 30 Days, #45 TAB.SR 2 Refills Prov:BENITO OJEDA MD 11/17/20 Amiodarone Hcl (AMIODARONE HCL) 200 Mg Tablet, 200 MG PO DAILY for AFIB for 30 Days, #30 TAB 3 Refills Prov:GALIMBPriyankaLIANG ELDERLY COMPANION 06/30/20 Insulin Detemir (LEVEMIR) 100 Unit/1 Ml Vial, 55 UNIT SQ QHS for 30 Days, VIAL Prov:AYE VIRK MD 03/05/17 Clopidogrel Bisulfate (CLOPIDOGREL) 75 Mg Tablet, 1 TAB PO DAILY, #90 TAB 1 Refill Prov:SURJIT CASTELANRachelle Juliette ELDERLY COMPANION 10/10/16 Atorvastatin Calcium (ATORVASTATIN CALCIUM) 40 Mg Tablet, 40 MG PO QHS for 30 Days, #30 TAB Prov:JACINTO LOVE MD 08/07/16 Reported Medications Potassium Chloride (KLOR-CON M20) 20 Meq Tab.er.prt, 1 TAB PO DAILY for supplement for 30 Days, #30 TAB 0 Refills 12/07/20 Gabapentin (GABAPENTIN) 300 Mg Capsule, 300 MG PO TID for NEUROGENIC PAIN, CAP 12/07/20 Furosemide (FUROSEMIDE) 80 Mg Tablet, 1 TAB PO DAILY for CHF, #30 TAB 5 Refills 11/14/20 Lisinopril (LISINOPRIL) 10 Mg Tablet, 1 TAB PO DAILY for htn, #30 TAB 5 Refills 11/14/20 Metformin Hcl (METFORMIN HCL) 1,000 Mg Tablet, 1000 MG PO BIDWMEALS for DM-2, TAB 02/18/20 Insulin Aspart (NOVOLOG FLEXPEN) 100 Unit/1 Ml Insuln.pen, 10 UNIT SQ TIDWMEALS for , SYR 06/06/18 Apixaban (ELIQUIS) 5 Mg Tablet, 5 MG PO BID, TAB 10/19/17 BENITO OJEDA MD Dec 14, 2020 14:43
--- NOTE | 2020-12-14 15:23 | NUR ---
Patient given discharge instructions with follow up appointments included. Patients IV removed with no complications and was transported by RN to vehicle with family.
== END 2020-12-14 15:20 | disposition home or self-care (01) | DRG 901 ==
LOC: 4 NORTH 17:15
PROVIDERS: ADMIT Internal Medicine; ATTEND Internal Medicine
PROC: 0JBQ0ZZ Excision of Right Foot Subcutaneous Tissue and Fascia, Open Approach (ICD-10-PCS; 2020-12-09)
PROC: 0HBRXZZ Excision of Toe Nail, External Approach (ICD-10-PCS; 2020-12-09)
PROC: 0JBR0ZZ Excision of Left Foot Subcutaneous Tissue and Fascia, Open Approach (ICD-10-PCS; 2020-12-09)
PROC: 0HTRXZZ Resection of Toe Nail, External Approach (ICD-10-PCS; 2020-12-09)
PROC: 0HBRXZZ Excision of Toe Nail, External Approach (ICD-10-PCS; 2020-12-09)
PROC: 0JBQ0ZZ Excision of Right Foot Subcutaneous Tissue and Fascia, Open Approach (ICD-10-PCS; principal; 2020-12-09 12:00)
DX: S99.921A Unspecified injury of right foot, initial encounter (principal); N17.0 Acute kidney failure with tubular necrosis; E11.51 Type 2 diabetes mellitus with diabetic peripheral angiopathy without gangrene; I11.0 Hypertensive heart disease with heart failure; E11.65 Type 2 diabetes mellitus with hyperglycemia; E78.00 Pure hypercholesterolemia, unspecified; E78.5 Hyperlipidemia, unspecified; I25.10 Atherosclerotic heart disease of native coronary artery without angina pectoris; I48.91 Unspecified atrial fibrillation; I50.9 Heart failure, unspecified; W22.8XXA Striking against or struck by other objects, initial encounter; Z79.01 Long term (current) use of anticoagulants; Z79.02 Long term (current) use of antithrombotics/antiplatelets; Z79.4 Long term (current) use of insulin; Z79.84 Long term (current) use of oral hypoglycemic drugs; Z79.899 Other long term (current) drug therapy; Z82.49 Family history of ischemic heart disease and other diseases of the circulatory system; Z87.891 Personal history of nicotine dependence; Z95.1 Presence of aortocoronary bypass graft; M19.90 Unspecified osteoarthritis, unspecified site; L03.031 Cellulitis of right toe
CPT/HCPCS: 36415; 73630; 80048; 80053; 80202; 81001; 82565; 82962; 83036; 83735; 84100; 85025; 86140; 87071; 87075; 93926; A4223; A4930; A6223; A6402; J1100; J1650; J1815; J1940; J2060; J2370; J2405; J2543; J2704; J3010; J3370; J3490; J7050; J7120; 97110-GP; 97116-GP; 97530-GO; 97530-GP; 97535-GO; G0378; J7030

== ENCOUNTER 2020-12-15 11:01 | Emergency (ER) | payer MEDICARE ==
[~2020-12-15] VITALS: Ht 185.4 cm; Wt 100.0 kg
[~2020-12-15 11:01] MED LIST changes: +AMOX1TAB61 PO; +OXYC1TAB19 PO; +POTA-121 PO
[2020-12-15 11:50] LABS: BILIRUBIN,URINE NEGATIVE (NEG); CLARITY,URINE CLEAR; COLOR,URINE YELLOW; NITRITE,URINE NEGATIVE (NEG); PROTEIN,URINE NEGATIVE (NEG-TRACE)
[2020-12-15 11:50] LABS: BASO # 0.1 x10^3/uL (0.0-0.2); BASO % 1 % (0-3); EOS # 0.2 x10^3/uL (0.0-0.7); EOS % 2 % (0-3); HEMATOCRIT 35.4 % (39.0-53.0); HEMOGLOBIN 10.3 g/dL (13.0-17.5); LYMPH # 2.2 x10^3/uL (1.0-4.8); LYMPH % 25 % (24-48); MEAN CORPUSCULAR HEMOGLOBIN 19 pg (25-35); MEAN CORPUSCULAR HGB CONC 29 g/dL (31-37); MEAN CORPUSCULAR VOLUME 67 fL (79-100); MONO # 1.3 x10^3/uL (0.0-1.1); MONO % 15 % (0-9); NEUT % 57 % (31-73); PLATELET COUNT 317 x10^3/uL (140-400); RED CELL DISTRIBUTION WIDTH 21.4 % (11.5-14.5); WHITE BLOOD COUNT 8.8 x10^3/uL (4.0-11.0)
[2020-12-15 11:54] LABS: PROTHROMBIN TIME PATIENT 19.2 SEC (11.7-14.0)
[2020-12-15 12:01] LABS: BACTERIA,URINE FEW /HPF (0-FEW); RBC,URINE 0 /HPF (0-2)
[2020-12-15 12:09] LABS: CALCIUM 8.9 mg/dL (8.5-10.1); POTASSIUM 4.4 mmol/L (3.5-5.1)
[2020-12-15 12:15] LABS: ALBUMIN 3.1 g/dL (3.4-5.0); ALBUMIN/GLOBULIN RATIO 0.8 (1.0-1.7); MAGNESIUM 1.8 mg/dL (1.8-2.4); TOTAL BILIRUBIN 1.8 mg/dL (0.2-1.0); TOTAL PROTEIN 7.2 g/dL (6.4-8.2)
[2020-12-15] MEDS ORDERED: IOHEXOL 300 MG/ML 100ML VIAL. IV ONE (12:15)
--- NOTE | 2020-12-15 12:35 | RAD ---
PQRS Compliance Statement: One or more of the following individualized dose reduction techniques were utilized for this examinat ion: 1. Automated exposure control 2. Adjustment of the mA and/or kV according to patient size 3. Use of iterative reconstruction technique CT abdomen/pelvis with contrast 12/15/2020 12:03 PM INDICATION: Abdominal pain, nausea and vomiting COMPARISON: CT runoff 10/19/2017 TECHNIQUE: Multiple axial CT images of the abdomen and pelvis were obtained after the intravenous adm inistration of 75 mL nonionic contrast. Coronal and sagittal reformats are provided. FINDINGS: Moderate right and small left pleural effusion with adjacent compressive atelectasis versus infiltrat e. Heart size is borderline enlarged. Coronary artery vascular calcifications are present. Mild heterogeneity of the enhancement of the hepatic parenchyma is noted without a suspicious hepatic lesion. Spleen, right adrenal gland and pancreas are normal. Gallbladder present containing calcifie d gallstone. There is a left adrenal nodule measuring 1.4 cm (21 Hounsfield units) which is indetermi magen. Abdominal aorta is normal in caliber with dense calcified atheromatous plaque. Left common femo ral stent graft is partially profiled. Small fat-containing left inguinal hernia. Right common femora l lymph node measures 0.9 cm. This is likely reactive. Portal venous system appears patent. There is a 7 mm nonobstructing calculus in inferior pole the right kidney. There is a subtle high att enuation mass identified within the lateral interpolar right kidney measuring 1.8 x 1.6 cm (series 2, image 42) and (series 4, image 40). Findings are suspicious for renal neoplasm such as renal cell ca rcinoma. Left kidney is normal in appearance. Mild prominence of the renal collecting systems bilater ally. There is distention of the urinary bladder measuring 12.2 x 10.9 x 7.2 cm. Prostate seminal ves icles are normal in appearance. No suspicious osseous abnormality is identified. Moderate diverticulosis without adjacent inflammation. Trace abdominal ascites. Small and large bowel are normal in caliber. There is no evidence for bowel obstruction. There are no pericolonic inflamma tory changes. A normal, nondilated appendix is visualized without adjacent inflammatory changes. No f ree intraperitoneal air IMPRESSION: 1. Heterogeneous enhancement of the hepatic parenchyma is nonspecific and could reflect phase of cont rast imaging versus hepatitis or early Budd-Chiari/hepatic congestion. Trace abdominal ascites. 2. Moderate right and small left pleural effusions adjacent compressive atelectasis versus infiltrate . 3. Indeterminate left adrenal nodule measuring 1.4 cm. Adrenal mass protocol CT or MRI could be of be nefit for further characterization. 4. High attenuation right renal mass measures 1.8 x 1.6 cm in the lateral interpolar right kidney. Th is finding suspicious for primary renal neoplasm. Further characterization with CT/MRI renal mass pro tocol. 5. Bladder distention with mild prominence of the renal collecting systems bilaterally. Correlate wit h outlet obstruction or cystitis with urine stasis. 6. Nonobstructing calculus identified within the inferior pole the right kidney measuring 7 mm. 7. Atherosclerotic changes of the abdominal aorta and pelvic vasculature. There is diffuse anasarca. Electronically signed by: Leelee Luna MD (12/15/2020 12:33 PM) [id number]
[2020-12-15 13:19] LABS: HYPOCHROMIA MOD; PLT ESTIMATE ADEQUATE (ADEQUATE)
[2020-12-15 13:20] LABS: ANISOCYTOSIS MOD; MICROCYTOSIS MOD
[2020-12-15 13:21] LABS: POIKILOCYTOSIS SLIGHT; POLYCHROMASIA PRESENT
[2020-12-15 13:23] LABS: OVALOCYTES OCC
--- NOTE | 2020-12-15 13:26 | PHYS DOC ---
Past Medical History Past Medical History: CAD, Diabetes-Type II, DVT, High Cholesterol, Hypertension, HI Additional Past Medical Histor: NEUROPATHY, DRUG ABUSE Past Surgical History: Coronary Bypass Surgery, Other Additional Past Surgical Histo: FEMORAL BYPASS, STENT Smoking Status: Former Smoker Alcohol Use: None Drug Use: None General Adult EDM: Chief Complaint: ABDOMINAL PAIN HPI: HPI: Patient is a 65-year-old male who was admitted here on December 07, 2020 due to an infection on his right foot. Patient was evaluated by vascular surgery, had some kind of debridement procedures done on his infection area. Patient was given IV antibiotic in the ER, patient was discharged home yesterday with home health nurse, pain medication, antibiotic. Patient was set up to follow-up with the wound care clinic here on December 20 and the vascular surgeon on December 29. Patient was brought back here to ER today due to abdominal pain and abdominal distention. Patient has history of drug abuse, alcohol abuse, extensive peripheral vascular disease. Patient denies any chest pain,, no cough, no fever. Review of Systems: Review of Systems: Constitutional: Denies fever or chills. [] Eyes: Denies change in visual acuity. [] HENT: Denies nasal congestion or sore throat. [] Respiratory: Denies cough or shortness of breath. [] Cardiovascular: Denies chest pain or edema. [] GI: Positive for abdominal pain , NO nausea, vomiting, bloody stools or diarrhea. [] : Denies dysuria. [] Musculoskeletal: Denies back pain or joint pain. [] Integument: Denies rash. [] Neurologic: Denies headache, focal weakness or sensory changes. [] Endocrine: Denies polyuria or polydipsia. [] Lymphatic: Denies swollen glands. [] Psychiatric: Denies depression or anxiety. [] Heart Score: C/O Chest Pain: N/A Risk Factors: Risk Factors: DM, Current or recent (<one month) smoker, HTN, HLP, family history of CAD, obesity. Risk Scores: Score 0 - 3: 2.5% MACE over next 6 weeks - Discharge Home Score 4 - 6: 20.3% MACE over next 6 weeks - Admit for Clinical Observation Score 7 - 10: 72.7% MACE over next 6 weeks - Early Invasive Strategies Current Medications: Current Medications Medications (Trade) Dose Ordered Sig/Lizzeth Start Time Stop Time Status Last Admin Dose Admin Iohexol (Omnipaque 300 Mg/ml) 75 ml 1X ONCE 12/15/20 12:15 12/15/20 12:16 DC 12/15/20 12:09 75 ML Allergies: Allergies: Allergies Coded Allergies Type Severity Reaction Last Updated Verified No Known Drug Allergies 02/27/17 No Physical Exam: PE: Constitutional: Well developed, well nourished, mild acute distress due to pain, non-toxic appearance. [] HENT: Normocephalic, atraumatic, bilateral external ears normal, oropharynx moist, no oral exudates, nose normal. [] Eyes: PERRLA, EOMI, conjunctiva icterus, no discharge. [] Neck: Normal range of motion, no tenderness, supple, no stridor. [] Cardiovascular: sinus tachycardia, egular rhythm, no murmur [] Lungs & Thorax: diminished air movement at lung bases. Abdomen: Bowel sounds normal, abdomen is distended, tender to palpation. Skin: Warm, dry, jaundice. Back: No tenderness, no CVA tenderness. [] Extremities: No tenderness, no cyanosis, no clubbing, ROM intact, no edema. [] Neurologic: Alert and oriented X 3, normal motor function, normal sensory function, no focal deficits noted. [] Psychologic: Affect normal, judgement normal, mood normal. [] Current Patient Data: Labs: Laboratory Tests Test 12/15/20 11:10 12/15/20 11:25 Urine Collection Type Unknown Urine Color Yellow Urine Clarity Clear Urine pH 6.0 (<5.0-8.0) Urine Specific [place] <=1.005 (1.000-1.030) Urine Protein Negative mg/dL (NEG-TRACE) Urine Glucose (UA) Negative mg/dL (NEG) Urine Ketones (Stick) Negative mg/dL (NEG) Urine Blood Negative (NEG) Urine Nitrite Negative (NEG) Urine Bilirubin Negative (NEG) Urine Urobilinogen Dipstick 1.0 mg/dL (0.2 mg/dL) Urine Leukocyte Esterase Small (NEG) Urine RBC 0 /HPF (0-2) Urine WBC 1-4 /HPF (0-4) Urine Squamous Epithelial Cells Occ /LPF Urine Bacteria Few /HPF (0-FEW) White Blood Count 8.8 x10^3/uL (4.0-11.0) Red Blood Count 5.30 x10^6/uL (4.30-5.70) Hemoglobin 10.3 g/dL (13.0-17.5) L Hematocrit 35.4 % (39.0-53.0) L Mean Corpuscular Volume 67 fL (79-100) L Mean Corpuscular Hemoglobin 19 pg (25-35) L Mean Corpuscular Hemoglobin Concent 29 g/dL (31-37) L Red Cell Distribution Width 21.4 % (11.5-14.5) H Platelet Count 317 x10^3/uL (140-400) Neutrophils (%) (Auto) 57 % (31-73) Lymphocytes (%) (Auto) 25 % (24-48) Monocytes (%) (Auto) 15 % (0-9) H Eosinophils (%) (Auto) 2 % (0-3) Basophils (%) (Auto) 1 % (0-3) Neutrophils # (Auto) 5.0 x10^3/uL (1.8-7.7) Lymphocytes # (Auto) 2.2 x10^3/uL (1.0-4.8) Monocytes # (Auto) 1.3 x10^3/uL (0.0-1.1) H Eosinophils # (Auto) 0.2 x10^3/uL (0.0-0.7) Basophils # (Auto) 0.1 x10^3/uL (0.0-0.2) Platelet Estimate Adequate (ADEQUATE) Giant Platelets Occ Polychromasia Present Hypochromasia Mod Poikilocytosis Slight Anisocytosis Mod Microcytosis Mod Ovalocytes Occ Prothrombin Time 19.2 SEC (11.7-14.0) H Prothrombin Time INR 1.6 (0.8-1.1) H Activated Partial Thromboplast Time 48 SEC (24-38) H Sodium Level 135 mmol/L (136-145) L Potassium Level 4.4 mmol/L (3.5-5.1) Chloride Level 102 mmol/L (98-107) Carbon Dioxide Level 26 mmol/L (21-32) Anion Gap 7 (6-14) Blood Urea Nitrogen 15 mg/dL (8-26) Creatinine 1.0 mg/dL (0.7-1.3) Estimated GFR (Cockcroft-Gault) 75.0 BUN/Creatinine Ratio 15 (6-20) Glucose Level 82 mg/dL (70-99) Lactic Acid Level 1.7 mmol/L (0.4-2.0) Calcium Level 8.9 mg/dL (8.5-10.1) Magnesium Level 1.8 mg/dL (1.8-2.4) Total Bilirubin 1.8 mg/dL (0.2-1.0) H Aspartate Amino Transferase (AST) 28 U/L (15-37) Alanine Aminotransferase (ALT) 43 U/L (16-63) Alkaline Phosphatase 179 U/L (46-116) H Total Protein 7.2 g/dL (6.4-8.2) Albumin 3.1 g/dL (3.4-5.0) L Albumin/Globulin Ratio 0.8 (1.0-1.7) L Lipase 97 U/L (73-393) Laboratory Tests 12/15/20 11:25 Laboratory Tests 12/15/20 11:25 Vital Signs: Vital Signs Date Time Temp Pulse Resp B/P (MAP) Pulse Ox O2 Delivery O2 Flow Rate FiO2 12/15/20 11:10 97.9 110 24 143/92 (109) 100 Room Air 97.9 EKG: EKG: EKG was done at 1104, heart rate 110 bpm, right bundle branch block, no ST s egment elevation. Radiology/Procedures: Radiology/Procedures: [][facility] [address] [place] [address] IMAGING REPORT Signed PATIENT: ELYSSA CONTRERAS ACCOUNT: [id number] : 1955 LOCATION: ER AGE: 65 SEX: M EXAM STATUS: PRE ER ORD. PHYSICIAN: ARTHUR DAVIDSON DO REASON: ABDOMINAL PAIN, NAUSEA, VOMITING PROCEDURE: CT ABD PELV W/ IV CONTRST ONLY PQRS Compliance Statement: One or more of the following individualized dose reduction techniques were utilized for this examination: 1. Automated exposure control 2. Adjustment of the mA and/or kV according to patient size 3. Use of iterative reconstruction technique CT abdomen/pelvis with contrast 12/15/2020 12:03 PM INDICATION: Abdominal pain, nausea and vomiting COMPARISON: CT runoff 10/19/2017 TECHNIQUE: Multiple axial CT images of the abdomen and pelvis were obtained after the intravenous administration of 75 mL nonionic contrast. Coronal and sagittal reformats are provided. FINDINGS: Moderate right and small left pleural effusion with adjacent compressive atelectasis versus infiltrate. Heart size is borderline enlarged. Coronary artery vascular calcifications are present. Mild heterogeneity of the enhancement of the hepatic parenchyma is noted without a suspicious hepatic lesion. Spleen, right adrenal gland and pancreas are normal. Gallbladder present containing calcified gallstone. There is a left adrenal nodule measuring 1.4 cm (21 Hounsfield units) which is indeterminate. Abdominal aorta is normal in caliber with dense calcified atheromatous plaque. Left common femoral stent graft is partially profiled. Small fat-containing left inguinal hernia. Right common femoral lymph node measures 0.9 cm. This is likely reactive. Portal venous system appears patent. There is a 7 mm nonobstructing calculus in inferior pole the right kidney. There is a subtle high attenuation mass identified within the lateral interpolar right kidney measuring 1.8 x 1.6 cm (series 2, image 42) and (series 4, image 40). Findings are suspicious for renal neoplasm such as renal cell carcinoma. Left kidney is normal in appearance. Mild prominence of the renal collecting systems bilaterally. There is distention of the urinary bladder measuring 12.2 x 10.9 x 7.2 cm. Prostate seminal vesicles are normal in appearance. No suspicious osseous abnormality is identified. Moderate diverticulosis without adjacent inflammation. Trace abdominal ascites. Small and large bowel are normal in caliber. There is no evidence for bowel obstruction. There are no pericolonic inflammatory changes. A normal, nondilated appendix is visualized without adjacent inflammatory changes. No free intraperitoneal air IMPRESSION: 1. Heterogeneous enhancement of the hepatic parenchyma is nonspecific and could reflect phase of contrast imaging versus hepatitis or early Budd-Chiari/hepatic congestion. Trace abdominal ascites. 2. Moderate right and small left pleural effusions adjacent compressive atelectasis versus infiltrate. 3. Indeterminate left adrenal nodule measuring 1.4 cm. Adrenal mass protocol CT or MRI could be of benefit for further characterization. 4. High attenuation right renal mass measures 1.8 x 1.6 cm in the lateral interpolar right kidney. This finding suspicious for primary renal neoplasm. F urther characterization with CT/MRI renal mass protocol. 5. Bladder distention with mild prominence of the renal collecting systems bilaterally. Correlate with outlet obstruction or cystitis with urine stasis. 6. Nonobstructing calculus identified within the inferior pole the right kidney measuring 7 mm. 7. Atherosclerotic changes of the abdominal aorta and pelvic vasculature. There is diffuse anasarca. Electronically signed by: Raymon Hays MD (12/15/2020 12:33 PM) [id number] DICTATED and SIGNED BY: RAYMON HAYS MD DATE: 12/15/20 [id number] [facility] [address] [place] [address] IMAGING REPORT Signed PATIENT: ELYSSA CONTRERAS ACCOUNT: [id number] : 1955 LOCATION: ER AGE: 65 SEX: M EXAM STATUS: REG ER ORD. PHYSICIAN: ARTHUR DAVIDSON DO REASON: ABDOMINAL PAIN, DISTENSION, ASCITES, RENAL MASS PROCEDURE: ABDOMEN COMPLETE INDICATION: Reason: ABDOMINAL PAIN, DISTENSION, ASCITES, RENAL MASS / Spl. Instructions: / History: COMPARISON: CT from same day TECHNIQUE: Grayscale and color ultrasound images obtained through the abdomen. FINDINGS: Pancreas: Limited visualization secondary overlying structures obscuring. Liver: Liver is echogenic. There is some prominence of some of the veins within. Adjacent right greater than left pleural effusion. Partially seen. Gallbladder: Gallbladder is distended measuring up to 87 mm Common Bile Duct: Not dilated. Right Kidney: Mild hydronephrosis. 24 mm cyst . Hypoechoic lesion measuring approximately 16 mm. Left Kidney: Mild hydronephrosis. Spleen: Unremarkable. Aorta/IVC: Limited visualization secondary to overlying structures obscuring IMPRESSION: * There is a couple of cysts seen of the right kidney as well as a hypoechoic lesion which could be from complex cyst or solid renal neoplasm. CT or MRI renal protocol could better assess for underlying renal mass since oncocytoma or maxwell l cell carcinoma remains within differential. * Mild bilateral hydronephrosis. * Heterogenous liver which appears echogenic. Nonspecific but can be seen with fatty infiltration. * Small free fluid as well as pleural effusions. * Distended gallbladder Electronically signed by: Parth Kelley MD (12/15/2020 2:52 PM) DESKTOP- [id number] DICTATED and SIGNED BY: PARTH KELLEY MD DATE: 12/15/20 [id number] Course & Med Decision Making: Course & Med Decision Making Pertinent Labs and Imaging studies reviewed. (See chart for details) Patient is a 65-year-old male who was admitted here on December 07, 2020 due to an infection on his right foot. Patient was evaluated by vascular surgery, had some kind of debridement procedures done on his infection area. Patient was given IV antibiotic in the ER, patient was discharged home yesterday with home health nurse, pain medication, antibiotic. Patient was set up to follow-up with the wound care clinic here on December 20 and the vascular surgeon on December 29. Patient was brought back here to ER today due to abdominal pain and abdominal distention. Patient has history of drug abuse, alcohol abuse, extensive peripheral vascular disease. Patient abdomen was mildly distended on examination. Patient had CT scan head abdomen pelvic show some trace of ascites fluid and some renal mass. Ultrasound of the abdomen and pelvic showed the same findings. Reviewing of his medical record, patient previous ultrasound show evidence of ascites and cirrhosis. I asked the hospitalist physician Dr. Roscoe Castillo who discharged the patient home yesterday, Dr. Castillo stated that patient was already been set up to follow-up with vascular surgery and wound care clinic and home health nurse to [facility] to evaluate him . Patient urinated more than a liter of URINE IN THE ER. HE FELT MUCH BETTER. patient does not need to be admitted to hospital for further evaluation. Patient can be discharged home, he will need to follow-up with his family physician for referral to a GI specialist and a urologist for further evaluation and treatment. Frida Disclaimer: Frida Disclaimer: This electronic medical record was generated, in whole or in part, using a voice recognition dictation system. Departure Departure Impression: Primary Impression: Abdominal pain Additional Impressions: Ascites Renal mass of unknown nature Disposition: 01 HOME / SELF CARE / HOMELESS Condition: STABLE Referrals: YOJANA PIPER MD (PCP) Please follow up with your family physician for referall to GI specialist about your liver problem/ascites problem. Patient Instructions: Abdominal Pain, Ascites Additional Instructions: Please call UROLOGY FOR FOLLOW UP next week to evaluate about the Renal mass. Formerly [facility] / [address] [address] [place] [address] [place] [address] [place] [address] [facility], [address] [place], [place] [address] ARTHUR DAVIDSON DO Dec 15, 2020 13:26
[2020-12-15] MEDS ORDERED: MORPHINE SULFATE 4 MG/ML INJ. IVP ONE (14:15)
--- NOTE | 2020-12-15 14:54 | RAD ---
INDICATION: Reason: ABDOMINAL PAIN, DISTENSION, ASCITES, RENAL MASS / Spl. Instructions: / History: COMPARISON: CT from same day TECHNIQUE: Grayscale and color ultrasound images obtained through the abdomen. FINDINGS: Pancreas: Limited visualization secondary overlying structures obscuring. Liver: Liver is echogenic. There is some prominence of some of the veins within. Adjacent right great er than left pleural effusion. Partially seen. Gallbladder: Gallbladder is distended measuring up to 87 mm Common Bile Duct: Not dilated. Right Kidney: Mild hydronephrosis. 24 mm cyst . Hypoechoic lesion measuring approximately 16 mm. Left Kidney: Mild hydronephrosis. Spleen: Unremarkable. Aorta/IVC: Limited visualization secondary to overlying structures obscuring IMPRESSION: * There is a couple of cysts seen of the right kidney as well as a hypoechoic lesion which could be from complex cyst or solid renal neoplasm. CT or MRI renal protocol could better assess for underlyin g renal mass since oncocytoma or renal cell carcinoma remains within differential. * Mild bilateral hydronephrosis. * Heterogenous liver which appears echogenic. Nonspecific but can be seen with fatty infiltration. * Small free fluid as well as pleural effusions. * Distended gallbladder Electronically signed by: Yousif Pitts MD (12/15/2020 2:52 PM) [id number]
[2020-12-15 15:30] VITALS: BP 119/78
== END 2020-12-15 18:00 | disposition home or self-care (01) ==
LOC: ER 11:01
DX: R10.9 Unspecified abdominal pain (principal); R14.0 Abdominal distension (gaseous); E78.00 Pure hypercholesterolemia, unspecified; E11.40 Type 2 diabetes mellitus with diabetic neuropathy, unspecified; I25.10 Atherosclerotic heart disease of native coronary artery without angina pectoris; I25.2 Old myocardial infarction; Z95.1 Presence of aortocoronary bypass graft; Z87.891 Personal history of nicotine dependence; Z86.718 Personal history of other venous thrombosis and embolism
CPT/HCPCS: 36415; 74177; 76700; 80053; 81001; 83605; 83690; 83735; 85025; 85610; 85730; 87086; 96374; 99285; J2270; Q9967; 87077; 87186

== ENCOUNTER 2021-03-31 14:07 | Inpatient (IN) | payer MEDICARE ==
[~2021-03-31] VITALS: Ht 175.3 cm; Wt 70.6 kg
[~2021-03-31 14:07] MED LIST changes: +CEFD300C PO; +DOXY100T PO; +FLUO20CA22 PO; +IPRA3AMP29 NEB; +LACT1CAP19 PO; +MULT1TAB92 PO; +OLAN5TAB67 PO; +OXYC1TAB15 PO; +QUET50TA79 PO; +TAMS0.4C97 PO
[2021-03-31] MEDS ORDERED: IV NORMAL SALINE 1000ML BAG 1,000 ML IV SCH ×2 (14:30→17:15)
[2021-03-31] MEDS ORDERED: ACETAMINOPHEN 650 MG SUPP.RECT. PR ONE (14:30)
[2021-03-31 14:39] LABS: BILIRUBIN,URINE NEGATIVE (NEG); CLARITY,URINE CLEAR; COLOR,URINE YELLOW; NITRITE,URINE NEGATIVE (NEG); PROTEIN,URINE 30 mg/dL (NEG-TRACE); UROBILINOGEN,URINE 0.2 mg/dL (0.2 mg/dL)
--- NOTE | 2021-03-31 14:43 | EKG ---
[facility] [address] [place] [address] Test Date: 2021-03-31 Test Time: 14:29:20 Pat Name: ELYSSA CONTRERAS Department: Room: Gender: M Lead C Developer: : 1955 Requested By: ARTHUR DAVIDSON Order Number: [id number] Reading MD: Raulito Lam MD Measurements Intervals [place] Rate: 77 P: 45 WI: 196 QRS: 49 QRSD: 150 T: 36 QT: 440 QTc: 500 Interpretive Statements SINUS RHYTHM RBBB Electronically Signed On 04-04-2021 8:35:33 [employer] CLERK by Raulito Lam MD
[2021-03-31 14:47] LABS: HYALINE CASTS, URINE FEW /HPF
[2021-03-31 14:48] LABS: BACTERIA,URINE 0 /HPF (0-FEW); RBC,URINE OCC /HPF (0-2); WBC,URINE OCC /HPF (0-4)
[2021-03-31 14:57] LABS: CALCIUM 8.3 mg/dL (8.5-10.1); CREATININE 1.6 mg/dL (0.7-1.3); GFR 43.6; POTASSIUM 3.2 mmol/L (3.5-5.1)
[2021-03-31] MEDS ORDERED: PIPERACILLIN/TAZOBACTAM 3.375 GM in IV NORMAL SALINE 50ML 50 ML IV ONE (15:00)
[2021-03-31] MEDS ORDERED: IV NORMAL SALINE 1000ML BAG 1,000 ML IV ONE (15:00)
--- NOTE | 2021-03-31 15:04 | RAD ---
EXAM: Chest, single view. HISTORY: Fever. COMPARISON: 12/24/2020 FINDINGS: A frontal view of the chest is obtained. There is diffuse interstitial infiltrate. There is no consolidation, pleural effusion or pneumothorax. There is a prominent cardiac silhouette. There a re median sternotomy changes. IMPRESSION: Diffuse interstitial infiltrate and prominent cardiac silhouette. Electronically signed by: Patti Campbell MD (03/31/2021 3:02 PM) [id number]
[2021-03-31 15:10] LABS: ALBUMIN/GLOBULIN RATIO 0.8 (1.0-1.7); MAGNESIUM 1.4 mg/dL (1.8-2.4); TOTAL BILIRUBIN 0.9 mg/dL (0.2-1.0)
[2021-03-31 15:22] LABS: INFLUENZA A PATIENT NEGATIVE (NEGATIVE); INFLUENZA B PATIENT NEGATIVE (NEGATIVE)
--- NOTE | 2021-03-31 15:24 | RAD ---
CT HEAD/BRAIN WO Date: 03/31/2021 2:21 PM Clinical Indication: ams Comparison: 01/24/2021. Technique: 5 mm axial tomographic images were obtained of the head without contrast. These were view ed on brain and bone windows. One or more of the following dose reduction techniques were utilized: A utomated exposure control (AEC), Adjustment of mA and/or kV according to patient size, Use of iterati ve reconstruction technique such as ASiR, CT scan done according to ALARA and image gently/image franks ly Findings: Moderate size area of luong-white loss in the right posterior parietal region, new since 01/24/2021. No intra- or extra-axial mass or fluid collection. No acute hemorrhage. The ventricles are normal in si ze, shape, and morphology. The subarachnoid cisterns are patent. The visualized paranasal sinuses are normal. The visualized portions of the orbits and globes are no rmal. The mastoid air cells are clear. The store protection specialist topogram shows no lytic lesion or fracture. Impression: New moderate size area of luong-white loss in the right posterior parietal region, concerning for acut e to subacute infarct. No acute hemorrhage. FOR INTERNAL CODING PURPOSES Critical result: Findings discussed with ARTHUR DAVIDSON DO at 03/31/2021 3:13 PM. RESULT CODE: (C) Electronically signed by: Josue Cagle MD (03/31/2021 3:22 PM) [id number]
[2021-03-31 15:27] LABS: BASO # 0.1 x10^3/uL (0.0-0.2); BASO % 0 % (0-3); EOS % 0 % (0-3); HEMATOCRIT 32.4 % (39.0-53.0); LYMPH # 0.9 x10^3/uL (1.0-4.8); LYMPH % 8 % (24-48); MEAN CORPUSCULAR HEMOGLOBIN 24 pg (25-35); MEAN CORPUSCULAR HGB CONC 31 g/dL (31-37); MEAN CORPUSCULAR VOLUME 78 fL (79-100); MONO # 0.7 x10^3/uL (0.0-1.1); MONO % 6 % (0-9); NEUT # 10.1 x10^3/uL (1.8-7.7); NEUT % 86 % (31-73); PLATELET COUNT 233 x10^3/uL (140-400); RED BLOOD COUNT 4.15 x10^6/uL (4.30-5.70); RED CELL DISTRIBUTION WIDTH 20.3 % (11.5-14.5); WHITE BLOOD COUNT 11.8 x10^3/uL (4.0-11.0)
[2021-03-31] MEDS ORDERED: MAGNESIUM SULFATE 2GM 50 ML IV ONE ×2 (15:30→17:30)
--- NOTE | 2021-03-31 15:34 | PHYS DOC ---
Past Medical History Past Medical History: CAD, Diabetes-Type II, DVT, High Cholesterol, Hypertension, [place] Additional Past Medical Histor: NEUROPATHY, DRUG ABUSE,PAD,NSTEMI, BPH, BLOOD THINNERS Past Surgical History: Coronary Bypass Surgery, Other Additional Past Surgical Histo: FEMORAL BYPASS, STENT,TOE SURG Smoking Status: Unknown if ever smoked Alcohol Use: None Drug Use: None Social History Narrative: PT UNABLE TO REPORT AT THIS TIME General Adult EDM: Chief Complaint: ALTERED MENTAL STATUS HPI: HPI: Patient is a 65 year old male who was brought here by EMS from home due to altered mental status. Per EMS, last time he was known normal was 2 AM this morning. His roommate tried to wake him up this morning at 9 AM to go to the , he was acting confused then. His roommate thought that he was still sleeping so he let him alone. Later he was not waking up, acting very confused so EMS was called to take him here for evaluation.. Patient has history of diabetic, chronic renal failure, hypertension. Patient also has history of peripheral arterial disease. Patient has had some toe amputated bilaterally, he also has some pain bibasillarly on the right femoral area that had a wound that is nonhealing. Upon arrival to ER, patient was very somnolent, lethargic and awake. Not much information was obtained from the patient or nursing services manager. Review of Systems: Review of Systems: Not able to evaluate due to condition. Heart Score: C/O Chest Pain: N/A Risk Factors: Risk Factors: DM, Current or recent (<one month) smoker, HTN, HLP, family history of CAD, obesity. Risk Scores: Score 0 - 3: 2.5% MACE over next 6 weeks - Discharge Home Score 4 - 6: 20.3% MACE over next 6 weeks - Admit for Clinical Observation Score 7 - 10: 72.7% MACE over next 6 weeks - Early Invasive Strategies Current Medications: Current Medications Medications (Trade) Dose Ordered Sig/Lizzeth Start Time Stop Time Status Last Admin Dose Admin Acetaminophen (Tylenol Supp) 975 mg 1X ONCE 03/31/21 14:30 03/31/21 14:31 DC 03/31/21 14:30 975 MG Magnesium Sulfate 50 ml @ 25 mls/hr 1X ONCE 03/31/21 15:30 03/31/21 17:29 Piperacillin Sod/ Tazobactam Sod 3.375 gm/Sodium Chloride 50 ml @ 100 mls/hr 1X ONCE 03/31/21 15:00 03/31/21 15:29 DC 03/31/21 15:07 100 MLS/HR Sodium Chloride 1,000 ml @ 1,000 mls/hr 1X ONCE 03/31/21 15:00 03/31/21 15:59 03/31/21 15:03 1,000 MLS/HR Allergies: Allergies: Allergies Coded Allergies Type Severity Reaction Last Updated Verified No Known Drug Allergies 02/27/17 No Physical Exam: PE: Constitutional: Well developed, well nourished, appeared toxic and lethargic. HENT: Normocephalic, atraumatic, bilateral external ears normal, oropharynx is very dried, no oral exudates, nose normal. [] Eyes: PERRLA, EOMI, conjunctiva normal, no discharge. [] Neck: Normal range of motion, no tenderness, supple, no stridor. [] Cardiovascular:Heart rate regular rhythm, no murmur [] Lungs & Thorax: Bilateral breath sounds with crackles diffusely to auscultation [] Abdomen: Bowel sounds normal, soft, no tenderness, no masses, no pulsatile masses. [] Skin: There is nonhealing wound on right groin area with no drainage. right lower extremities appears mild erythema. Back: No tenderness, no CVA tenderness. [] Extremities: no trauma, no edema. Neurologic: patient is lethargic, was able to open his eyes, moving all extremities and following command. Psychologic: not able to evaluate due to condition. Current Patient Data: Labs: Laboratory Tests Test 03/31/21 14:14 03/31/21 14:21 03/31/21 14:25 03/31/21 15:17 Glucose (Fingerstick) 112 mg/dL Influenza Type A Antigen Negative Influenza Type B Antigen Negative SARS-CoV-2 Antigen (Rapid) Negative Sodium Level 142 mmol/L Potassium Level 3.2 mmol/L Chloride Level 108 mmol/L Carbon Dioxide Level 20 mmol/L Anion Gap 14 Blood Urea Nitrogen 21 mg/dL Creatinine 1.6 mg/dL Estimated GFR (Cockcroft-Gault) 43.6 BUN/Creatinine Ratio 13 Glucose Level 117 mg/dL Lactic Acid Level 3.5 mmol/L Calcium Level 8.3 mg/dL Magnesium Level 1.4 mg/dL Total Bilirubin 0.9 mg/dL Aspartate Amino Transf (AST/SGOT) 61 U/L Alanine Aminotransferase (ALT/SGPT) 23 U/L Alkaline Phosphatase 126 U/L Ammonia 27 mcmol/L Troponin I High Sensitivity 52 ng/L CS-Asi-O-Type Natriuretic Peptide 59025 pg/mL Total Protein 7.0 g/dL Albumin 3.0 g/dL Albumin/Globulin Ratio 0.8 Ethyl Alcohol Level < 10 mg/dL Urine Collection Type U cath Urine Color Yellow Urine Clarity Clear Urine pH 5.0 Urine Specific [place] 1.010 Urine Protein 30 mg/dL Urine Glucose (UA) Negative mg/dL Urine Ketones (Stick) Negative mg/dL Urine Blood Trace Urine Nitrite Negative Urine Bilirubin Negative Urine Urobilinogen Dipstick 0.2 mg/dL Urine Leukocyte Esterase Negative Urine RBC Occ /HPF Urine WBC Occ /HPF Urine Squamous Epithelial Cells Few /LPF Urine Transitional Epithelial Cells Few /LPF Urine Bacteria 0 /HPF Urine Hyaline Casts Few /HPF Urine Mucus Marked /LPF White Blood Count 11.8 x10^3/uL Red Blood Count 4.15 x10^6/uL Hemoglobin 10.0 g/dL Hematocrit 32.4 % Mean Corpuscular Volume 78 fL Mean Corpuscular Hemoglobin 24 pg Mean Corpuscular Hemoglobin Concent 31 g/dL Red Cell Distribution Width 20.3 % Platelet Count 233 x10^3/uL Neutrophils (%) (Auto) 86 % Lymphocytes (%) (Auto) 8 % Monocytes (%) (Auto) 6 % Eosinophils (%) (Auto) 0 % Basophils (%) (Auto) 0 % Neutrophils # (Auto) 10.1 x10^3/uL Lymphocytes # (Auto) 0.9 x10^3/uL Monocytes # (Auto) 0.7 x10^3/uL Eosinophils # (Auto) 0.0 x10^3/uL Basophils # (Auto) 0.1 x10^3/uL Platelet Estimate Adequate Platelet Clumps, EDTA Present Giant Platelets Occ Polychromasia Slight Anisocytosis Mod Ovalocytes Occ Current Medications Medications (Trade) Dose Ordered Sig/Lizzeth Route PRN Reason Start Time Stop Time Status Last Admin Dose Admin Sodium Chloride 1,000 ml @ 1,000 mls/hr Q1H IV 03/31/21 14:30 03/31/21 15:29 DC 03/31/21 14:30 Acetaminophen (Tylenol Supp) 975 mg 1X ONCE DE 03/31/21 14:30 03/31/21 14:31 DC 03/31/21 14:30 Piperacillin Sod/ Tazobactam Sod 3.375 gm/Sodium Chloride 50 ml @ 100 mls/hr 1X ONCE IV 03/31/21 15:00 03/31/21 15:29 DC 03/31/21 15:07 Sodium Chloride 1,000 ml @ 1,000 mls/hr 1X ONCE IV 03/31/21 15:00 03/31/21 15:59 DC 03/31/21 15:03 Magnesium Sulfate 50 ml @ 25 mls/hr 1X ONCE IV 03/31/21 15:30 03/31/21 17:29 03/31/21 15:52 Lidocaine HCl (Lidocaine 1% 20ml Vial) 20 ml 1X ONCE INJ 03/31/21 16:30 03/31/21 16:31 DC 03/31/21 16:00 Sodium Chloride (NORMAL SALINE FLUSH for STERILE FIELD) 10 ml STK-MED ONCE .ROUTE 03/31/21 15:57 03/31/21 15:57 DC Lidocaine HCl (Lidocaine 2% 20ml Vial) 20 ml STK-MED ONCE .ROUTE 03/31/21 15:58 03/31/21 15:59 DC Norepinephrine Bitartrate 8 mg/ Dextrose 258 ml @ 14.126 mls/ hr 1X ONCE IV 03/31/21 16:30 04/01/21 07:39 03/31/21 16:41 Laboratory Tests Test 03/31/21 14:14 03/31/21 14:21 03/31/21 14:25 03/31/21 15:17 Glucose (Fingerstick) 112 mg/dL (70-99) H Influenza Type A Antigen Negative (NEGATIVE) Influenza Type B Antigen Negative (NEGATIVE) SARS-CoV-2 Antigen (Rapid) Negative (NEGATIVE) Sodium Level 142 mmol/L (136-145) Potassium Level 3.2 mmol/L (3.5-5.1) L Chloride Level 108 mmol/L (98-107) H Carbon Dioxide Level 20 mmol/L (21-32) L Anion Gap 14 (6-14) Blood Urea Nitrogen 21 mg/dL (8-26) Creatinine 1.6 mg/dL (0.7-1.3) H Estimated GFR (Cockcroft-Gault) 43.6 BUN/Creatinine Ratio 13 (6-20) Glucose Level 117 mg/dL (70-99) H Lactic Acid Level 3.5 mmol/L (0.4-2.0) H Calcium Level 8.3 mg/dL (8.5-10.1) L Magnesium Level 1.4 mg/dL (1.8-2.4) L Total Bilirubin 0.9 mg/dL (0.2-1.0) Aspartate Amino Transferase (AST) 61 U/L (15-37) H Alanine Aminotransferase (ALT) 23 U/L (16-63) Alkaline Phosphatase 126 U/L (46-116) H Ammonia 27 mcmol/L (11-34) Troponin I High Sensitivity 52 ng/L (4-75) NA-Aao-M-Type Natriuretic Peptide 09303 pg/mL (0-124) H Total Protein 7.0 g/dL (6.4-8.2) Albumin 3.0 g/dL (3.4-5.0) L Albumin/Globulin Ratio 0.8 (1.0-1.7) L Ethyl Alcohol Level < 10 mg/dL (0-10) Urine Collection Type U cath Urine Color Yellow Urine Clarity Clear Urine pH 5.0 (<5.0-8.0) Urine Specific [place] 1.010 (1.000-1.030) Urine Protein 30 mg/dL (NEG-TRACE) Urine Glucose (UA) Negative mg/dL (NEG) Urine Ketones (Stick) Negative mg/dL (NEG) Urine Blood Trace (NEG) Urine Nitrite Negative (NEG) Urine Bilirubin Negative (NEG) Urine Urobilinogen Dipstick 0.2 mg/dL (0.2 mg/dL) Urine Leukocyte Esterase Negative (NEG) Urine RBC Occ /HPF (0-2) Urine WBC Occ /HPF (0-4) Urine Squamous Epithelial Cells Few /LPF Urine Transitional Epithelial Cells Few /LPF Urine Bacteria 0 /HPF (0-FEW) Urine Hyaline Casts Few /HPF Urine Mucus Marked /LPF White Blood Count 11.8 x10^3/uL (4.0-11.0) H Red Blood Count 4.15 x10^6/uL (4.30-5.70) L Hemoglobin 10.0 g/dL (13.0-17.5) L Hematocrit 32.4 % (39.0-53.0) L Mean Corpuscular Volume 78 fL (79-100) L Mean Corpuscular Hemoglobin 24 pg (25-35) L Mean Corpuscular Hemoglobin Concent 31 g/dL (31-37) Red Cell Distribution Width 20.3 % (11.5-14.5) H Platelet Count 233 x10^3/uL (140-400) Neutrophils (%) (Auto) 86 % (31-73) H Lymphocytes (%) (Auto) 8 % (24-48) L Monocytes (%) (Auto) 6 % (0-9) Eosinophils (%) (Auto) 0 % (0-3) Basophils (%) (Auto) 0 % (0-3) Neutrophils # (Auto) 10.1 x10^3/uL (1.8-7.7) H Lymphocytes # (Auto) 0.9 x10^3/uL (1.0-4.8) L Monocytes # (Auto) 0.7 x10^3/uL (0.0-1.1) Eosinophils # (Auto) 0.0 x10^3/uL (0.0-0.7) Basophils # (Auto) 0.1 x10^3/uL (0.0-0.2) Platelet Estimate Pending Laboratory Tests 03/31/21 15:17 Laboratory Tests 03/31/21 14:21 Vital Signs: Vital Signs Date Time Temp Pulse Resp B/P (MAP) Pulse Ox O2 Delivery O2 Flow Rate FiO2 03/31/21 14:11 102.9 85 20 81/46 (58) 85 Room Air 102.9 EKG: EKG: EKG was done at 1429, heart rate 77 bpm, sinus rhythm, no ST segment elevation, right bundle branch block, Radiology/Procedures: Radiology/Procedures: [][facility] [address] [place] [address] IMAGING REPORT Signed PATIENT: ELYSSA CONTRERAS ACCOUNT: [id number] : 1955 LOCATION: ER AGE: 65 SEX: M EXAM STATUS: REG ER ORD. PHYSICIAN: ARTHUR DAVIDSON DO REASON: fever PROCEDURE: PORTABLE CHEST 1V EXAM: Chest, single view. HISTORY: Fever. COMPARISON: 12/24/2020 FINDINGS: A frontal view of the chest is obtained. There is diffuse interstitial infiltrate. There is no consolidation, pleural effusion or pneumothorax. There is a prominent cardiac silhouette. There are median sternotomy changes. IMPRESSION: Diffuse interstitial infiltrate and prominent cardiac silhouette. Electronically signed by: Patti Manzo MD (03/31/2021 3:02 PM) [id number] DICTATED and SIGNED BY: PATTI MANZO MD DATE: 03/31/21 [id number] [facility] [address] [place] [address] IMAGING REPORT Signed PATIENT: ELYSSA CONTRERAS ACCOUNT: [id number] : 1955 LOCATION: ER AGE: 65 SEX: M EXAM STATUS: REG ER ORD. PHYSICIAN: ARTHUR DAVIDSON DO REASON: ams PROCEDURE: CT HEAD WO CONTRAST CT HEAD/BRAIN WO Date: 03/31/2021 2:21 PM Clinical Indication: ams Comparison: 01/24/2021. Technique: 5 mm axial tomographic images were obtained of the head without contrast. These were viewed on brain and bone windows. One or more of the f ollowing dose reduction techniques were utilized: Automated exposure control (AEC), Adjustment of mA and/or kV according to patient size, Use of iterative reconstruction technique such as ASiR, CT scan done according to ALARA and image gently/image wisely Findings: Moderate size area of luong-white loss in the right posterior parietal region, new since 01/24/2021. No intra- or extra-axial mass or fluid collection. No acute hemorrhage. The ventricles are normal in size, shape, and morphology. The subarachnoid cisterns are patent. The visualized paranasal sinuses are normal. The visualized portions of the orbits and globes are normal. The mastoid air cells are clear. The pet care associate topogram shows no lytic lesion or fracture. Impression: New moderate size area of luong-white loss in the right posterior parietal region, concerning for acute to subacute infarct. No acute hemorrhage. FOR INTERNAL CODING PURPOSES Critical result: Findings discussed with ARTHUR DAVIDSON DO at 03/31/2021 3:13 PM. RESULT CODE: (C) Electronically signed by: Bravo Cagle MD (03/31/2021 3:22 PM) [id number] DICTATED and SIGNED BY: BRAVO CAGLE MD DATE: 03/31/21 [id number] 0 Central Venous Line Placement at 1600: Indication: Vascular access, severe sepsis, septic shock Consent: The patient provided consent for this procedure. Procedure: The patient was positioned appropriately and the skin over the right side neck, INTERNAL JUGULAR VEIN AREA was prepped and draped in a sterile fashion. Local anesthesia was used. Ultrasound guidance utilized. A large bore needle was used to identify the vein. A guide wire was then inserted into the vein through the needle. A triple lumen catheter was then inserted into the vessel over the guide wire using the Seldinger technique. All ports showed good, free flowing blood return and were flushed with saline solution. The catheter was then securely fastened to the skin with sutures and covered with a sterile dressing. A post procedure X-ray was ordered. The patient tolerated the procedure well. Complications: none. [facility] [address] [place], [place] [id number] IMAGING REPORT Signed PATIENT: ELYSSA CONTRERAS ACCOUNT: [id number] : 1955 LOCATION: ER AGE: 65 SEX: M EXAM STATUS: REG ER ORD. PHYSICIAN: ARTHUR DAVIDSON DO REASON: right IJ CVL PLACEMENT PROCEDURE: CHEST AP ONLY EXAM: Chest, single view. HISTORY: Central line placement. COMPARISON: 03/31/2021 FINDINGS: A frontal view of the chest is obtained. There is diffuse interstitial infiltrate. There is no consolidation, pleural effusion or pneumothorax. There is a stable cardiac silhouette and evidence of prior median sternotomy. There is a right internal jugular catheter with the tip overlying the expected location of the right atrium. IMPRESSION: 1. Right internal jugular catheter likely within the right atrium. 2. Stable diffuse interstitial infiltrate. Electronically signed by: Patti Manzo MD (03/31/2021 4:42 PM) [id number] DICTATED and SIGNED BY: PATTI MANZO MD DATE: 03/31/21 [id number] 0 Course & Med Decision Making: Course & Med Decision Making Pertinent Labs and Imaging studies reviewed. (See chart for details) Patient is a 65-year-old male who was brought here by EMS from home due to altered mental status. Patient was found to have high fever, he also had infiltration on his chest x-ray consistent with pneumonia. It is highly suspicious that he had COVID-19 infection. Rapid Covid test come back negative. Patient was given IV fluid, he continued to be hypotensive, he met severe sepsis criteria. Patient was resuscitated with IV fluid, central venous catheter was placed, due to history history of congestive heart failure the standard 30 mg/kg IV fluid bolus for severe sepsis was not given. Patient was given IV antibiotic, IV norepinephrine. Discussed with hospitalist on-call Dr. Gregory Champion who agreed to admit the patient. Patient sister is present at the time, she is his power of card player, she indicated that patient is DNR. Due to a high probability of clinically significant, life-threatening deter ioration, the patient required my highest level of preparedness to intervene emergently and I personally spent this critical care time directly and personally managing the patient. This critical care time included obtaining the history; examining the patient; pulse oximetry; real-time ordering and review of studies; arranging urgent treatment with development of a management plan; evaluation of patient's response to treatment; frequent reassessment; and, discussions with other providers. This critical care time was performed to assess and manage the high probability of imminent, life-threatening deterioration that could result in multi-organ failure. It was not inclusive of separately billable procedures. Please see the Course and Medical Decision Making section and the rest of the note for further information on patient assessment and treatment. Total critical care time is 60 minutes. Dragon Disclaimer: Dragon Disclaimer: This electronic medical record was generated, in whole or in part, using a voice recognition dictation system. Departure Departure Impression: Primary Impression: Severe sepsis Additional Impressions: Pneumonia AMS (altered mental status) Disposition: ADMITTED INPATIENT Admitting Physician: [facility] (Dr. Champion) Condition: IMPROVED Referrals: YOJANA PIPER MD (PCP) ARTHUR DAVIDSON DO Mar 31, 2021 15:34
[2021-03-31] MEDS ORDERED: 0.9 % SOD CHL for STERILE FIELD 10 ML DISP.SYRIN. ONE (15:57)
[2021-03-31] MEDS ORDERED: LIDOCAINE 2% Multi-Dose 20 ML VIAL. ONE (15:58)
[2021-03-31] MEDS ORDERED: LIDOCAINE 1% Multi-Dose 20 ML VIAL. INJ ONE (16:30)
[2021-03-31] MEDS ORDERED: NOREPINEPHRINE VIAL 8 MG in IV DEXTROSE 5% 250 ML IV ONE (16:30)
[2021-03-31 16:35] LABS: OVALOCYTES OCC; PLATELET CLUMP PRESENT; PLT ESTIMATE ADEQUATE (ADEQUATE)
[2021-03-31 16:36] LABS: POLYCHROMASIA SLIGHT
[2021-03-31 16:37] LABS: ANISOCYTOSIS MOD
--- NOTE | 2021-03-31 16:44 | RAD ---
EXAM: Chest, single view. HISTORY: Central line placement. COMPARISON: 03/31/2021 FINDINGS: A frontal view of the chest is obtained. There is diffuse interstitial infiltrate. There is no consolidation, pleural effusion or pneumothorax. There is a stable cardiac silhouette and evidenc e of prior median sternotomy. There is a right internal jugular catheter with the tip overlying the e xpected location of the right atrium. IMPRESSION: 1. Right internal jugular catheter likely within the right atrium. 2. Stable diffuse interstitial infiltrate. Electronically signed by: Patti Campbell MD (03/31/2021 4:42 PM) [id number]
[2021-03-31] MEDS ORDERED: DOCUSATE SODIUM 100 MG CAPSULE. PO PRN (17:00)
[2021-03-31] MEDS ORDERED: diphenhydrAMINE HCL 25 MG CAPSULE PO PRN (17:00)
[2021-03-31] MEDS ORDERED: ZOLPIDEM 5 MG TABLET. PO PRN (17:00)
[2021-03-31] MEDS ORDERED: PROCHLORPERAZINE 10 MG/2 ML VIAL. IV PRN (17:00)
[2021-03-31] MEDS ORDERED: SENNOSIDES 8.6 MG TABLET PO PRN (17:00)
[2021-03-31] MEDS ORDERED: ONDANSETRON PF 4 MG/2 ML VIAL. IVP PRN (17:15)
--- NOTE | 2021-03-31 17:15 | PDOC1 ---
History and Physical Date of Service: DOS: DATE: 03/31/21 TIME: 16:54 Chief Complaint: Chief Complain: Altered mental status. History of Present Illness: HPI: History obtained from discussion with the ED physician and chart review due to patient's altered mental status: 65 year old male who was brought here by EMS from home due to altered mental status. Per EMS, last time he was known normal was 2 AM this morning. His roommate tried to wake him up this morning at 9 AM to go to the , he was acting confused then. His roommate thought that he was still sleeping so he let him alone. Later he was not waking up, acting very confused so EMS was called to take him here for evaluation.. Patient was admitted at [place] in November for toe amputations and had a right femoral bypass in December. He underwent rehab and was eventually discharged from [facility] rehab in February. Patient was doing fine at home according to sister however in the past few days he was not acting appropriately. History also obtained from discussion with the sister at bedside who stated that the last time she saw patient was at 2 days ago. She did notice that he was having trouble tracking and had some confusion at the time. However patient was still able to drive himself to [facility] and take care of himself. Past Medical/Surgical History: PMH/PSH: Past Medical History: CAD, Diabetes-Type II, DVT, High Cholesterol, Hypertension, [place], NEUROPATHY, DRUG ABUSE,PAD,NSTEMI, BPH, BLOOD THINNERS Past Surgical History: Coronary Bypass Surgery, right FEMORAL BYPASS with PTFE, multiple toe amputations Allergies: Allergies: Coded Allergies: No Known Drug Allergies (Unverified , 02/27/17) Family History: Family History: Reviewed with no relevant findings in the chart Social History: Social History: Limited due to patient's altered mental status Current Medications: Current Medications Current Medications Sodium Chloride 1,000 ml @ 1,000 mls/hr Q1H IV Last administered on 03/31/21at 14:30; Start 03/31/21 at 14:30; Stop 03/31/21 at 15:29; Status DC Acetaminophen (Tylenol Supp) 975 mg 1X ONCE AR Last administered on 03/31/21at 14:30; Start 03/31/21 at 14:30; Stop 03/31/21 at 14:31; Status DC Piperacillin Sod/ Tazobactam Sod 3.375 gm/Sodium Chloride 50 ml @ 100 mls/hr 1X ONCE IV Last administered on 03/31/21at 15:07; Start 03/31/21 at 15:00; Stop 03/31/21 at 15:29; Status DC Sodium Chloride 1,000 ml @ 1,000 mls/hr 1X ONCE IV Last administered on 03/31/21at 15:03; Start 03/31/21 at 15:00; Stop 03/31/21 at 15:59; Status DC Magnesium Sulfate 50 ml @ 25 mls/hr 1X ONCE IV Last administered on 03/31/21at 15:52; Start 03/31/21 at 15:30; Stop 03/31/21 at 17:29 Lidocaine HCl (Lidocaine 1% 20ml Vial) 20 ml 1X ONCE INJ Last administered on 03/31/21at 16:00; Start 03/31/21 at 16:30; Stop 03/31/21 at 16:31; Status DC Sodium Chloride (NORMAL SALINE FLUSH for STERILE FIELD) 10 ml STK-MED ONCE .ROUTE ; Start 03/31/21 at 15:57; Stop 03/31/21 at 15:57; Status DC Lidocaine HCl (Lidocaine 2% 20ml Vial) 20 ml STK-MED ONCE .ROUTE ; Start 03/31/21 at 15:58; Stop 03/31/21 at 15:59; Status DC Norepinephrine Bitartrate 8 mg/ Dextrose 258 ml @ 14.126 mls/ hr 1X ONCE IV Last administered on 03/31/21at 16:41; Start 03/31/21 at 16:30; Stop 04/01/21 at 07:39 Active Scripts Active Duoneb 0.5-3(2.5) Mg/3 Ml (Albuterol/Ipratropium) 3 Ml Ampul.neb 3 Ml NEB BID Flomax (Tamsulosin Hcl) 0.4 Mg Cap.er.24h 0.4 Mg PO QHS Olanzapine 5 Mg Tablet 5 Mg PO BID Quetiapine Fumarate ER (Quetiapine Fumarate) 50 Mg Tab.er.24h 100 Mg PO QHS Culturelle (Lactobacillus Rhamnosus Gg) 1 Each Cap.sprink 1 Cap PO BID Thera-M Tablet (Multivits,Ca,Minerals/Iron/Fa) 1 Each Tablet 1 Tab PO DAILY Percocet 5-325 Mg Tablet (Oxycodone/Acetaminophen) 1 Each Tablet 1 Tab PO PRN Q4HRS PRN Fluoxetine Hcl 20 Mg Capsule 20 Mg PO DAILY Cefdinir 300 Mg Capsule 300 Mg PO BID Doxycycline Hyclate 100 Mg Tablet 100 Mg PO BID Metoprolol Succinate ( Xl ) (Metoprolol Succinate) 100 Mg Tab.er.24h 150 Mg PO DAILY 30 Days Amiodarone Hcl 200 Mg Tablet 200 Mg PO DAILY 30 Days Clopidogrel (Clopidogrel Bisulfate) 75 Mg Tablet 1 Tab PO DAILY Atorvastatin Calcium 40 Mg Tablet 40 Mg PO QHS 30 Days Reported Gabapentin 300 Mg Capsule 300 Mg PO TID Eliquis (Apixaban) 5 Mg Tablet 5 Mg PO BID ROS: Review of Systems Review of System REVIEW OF SYSTEMS: GENERAL: Denies weakness SKIN: No bruising, hair changes or rashes. EYES: No blurred, double or loss of vision. NOSE AND THROAT: No history of nosebleeds, hoarseness or sore throat. HEART: No history of palpitations, chest pain or shortness of breath on exertion. LUNGS: Denies cough, hemoptysis, wheezing or shortness of breath. GASTROINTESTINAL: Denies changes in appetite, nausea, vomiting, diarrhea or constipation. GENITOURINARY: No history of frequency, urgency, hesitancy or nocturia. NEUROLOGIC: Denies history of numbness, tingling, or tremor. PSYCHIATRIC: No history of panic, anxiety or depression. ENDOCRINE: No history of heat or cold intolerance, polyuria or polydipsia. EXTREMITIES: Denies joint pain, pain on walking or stiffness. Physical Exam: Vital Signs: Vital Signs Date Time Temp Pulse Resp B/P (MAP) Pulse Ox O2 Delivery O2 Flow Rate FiO2 03/31/21 14:11 102.9 85 20 81/46 (58) 85 Room Air 102.9 Physcial Exam: General: Older than a. Stated age. Currently under drapes getting a central line placed by ED physician HEENT: Pupils equally round and reactive to light, EOMI, no discharge, normal conjunctiva Neck: Supple, no nuchal rigidity, no JVD, trachea midline, no tenderness Cardiac: RRR, no murmurs, no gallops, no rubs Chest/Lungs: CTAB, no wheeze, no rhonchi, no crackles Abdomen: soft, non-distended, no guarding, no peritoneal signs, non-tender Back: No tenderness Extremities: Right groin wound with chronic granulation tissue. Some surrounding erythema and blanching erythema all the way down to the toes. No open wounds at this time in the lower extremities. Multiple toe amputations with no drainage or active bleeding. Neuro: Alert and awake. No focal deficits, normal speech Labs: Labs: Laboratory Tests Test 03/31/21 14:14 03/31/21 14:21 03/31/21 14:25 03/31/21 15:17 Glucose (Fingerstick) 112 mg/dL (70-99) Influenza Type A Antigen Negative (NEGATIVE) Influenza Type B Antigen Negative (NEGATIVE) SARS-CoV-2 Antigen (Rapid) Negative (NEGATIVE) Sodium Level 142 mmol/L (136-145) Potassium Level 3.2 mmol/L (3.5-5.1) Chloride Level 108 mmol/L (98-107) Carbon Dioxide Level 20 mmol/L (21-32) Anion Gap 14 (6-14) Blood Urea Nitrogen 21 mg/dL (8-26) Creatinine 1.6 mg/dL (0.7-1.3) Estimated GFR (Cockcroft-Gault) 43.6 BUN/Creatinine Ratio 13 (6-20) Glucose Level 117 mg/dL (70-99) Lactic Acid Level 3.5 mmol/L (0.4-2.0) Calcium Level 8.3 mg/dL (8.5-10.1) Magnesium Level 1.4 mg/dL (1.8-2.4) Total Bilirubin 0.9 mg/dL (0.2-1.0) Aspartate Amino Transf (AST/SGOT) 61 U/L (15-37) Alanine Aminotransferase (ALT/SGPT) 23 U/L (16-63) Alkaline Phosphatase 126 U/L (46-116) Ammonia 27 mcmol/L (11-34) Troponin I High Sensitivity 52 ng/L (4-75) DR-Wjj-[id number]-Type Natriuretic Peptide 15535 pg/mL (0-124) Total Protein 7.0 g/dL (6.4-8.2) Albumin 3.0 g/dL (3.4-5.0) Albumin/Globulin Ratio 0.8 (1.0-1.7) Ethyl Alcohol Level < 10 mg/dL (0-10) Urine Collection Type U cath Urine Color Yellow Urine Clarity Clear Urine pH 5.0 (<5.0-8.0) Urine Specific [place] 1.010 (1.000-1.030) Urine Protein 30 mg/dL (NEG-TRACE) Urine Glucose (UA) Negative mg/dL (NEG) Urine Ketones (Stick) Negative mg/dL (NEG) Urine Blood Trace (NEG) Urine Nitrite Negative (NEG) Urine Bilirubin Negative (NEG) Urine Urobilinogen Dipstick 0.2 mg/dL (0.2 mg/dL) Urine Leukocyte Esterase Negative (NEG) Urine RBC Occ /HPF (0-2) Urine WBC Occ /HPF (0-4) Urine Squamous Epithelial Cells Few /LPF Urine Transitional Epithelial Cells Few /LPF Urine Bacteria 0 /HPF (0-FEW) Urine Hyaline Casts Few /HPF Urine Mucus Marked /LPF White Blood Count 11.8 x10^3/uL (4.0-11.0) Red Blood Count 4.15 x10^6/uL (4.30-5.70) Hemoglobin 10.0 g/dL (13.0-17.5) Hematocrit 32.4 % (39.0-53.0) Mean Corpuscular Volume 78 fL (79-100) Mean Corpuscular Hemoglobin 24 pg (25-35) Mean Corpuscular Hemoglobin Concent 31 g/dL (31-37) Red Cell Distribution Width 20.3 % (11.5-14.5) Platelet Count 233 x10^3/uL (140-400) Neutrophils (%) (Auto) 86 % (31-73) Lymphocytes (%) (Auto) 8 % (24-48) Monocytes (%) (Auto) 6 % (0-9) Eosinophils (%) (Auto) 0 % (0-3) Basophils (%) (Auto) 0 % (0-3) Neutrophils # (Auto) 10.1 x10^3/uL (1.8-7.7) Lymphocytes # (Auto) 0.9 x10^3/uL (1.0-4.8) Monocytes # (Auto) 0.7 x10^3/uL (0.0-1.1) Eosinophils # (Auto) 0.0 x10^3/uL (0.0-0.7) Basophils # (Auto) 0.1 x10^3/uL (0.0-0.2) Platelet Estimate Adequate (ADEQUATE) Platelet Clumps, EDTA Present Giant Platelets Occ Polychromasia Slight Anisocytosis Mod Ovalocytes Occ Laboratory Tests Test 03/31/21 14:14 03/31/21 14:21 03/31/21 14:25 03/31/21 15:17 Glucose (Fingerstick) 112 mg/dL (70-99) Influenza Type A Antigen Negative (NEGATIVE) Influenza Type B Antigen Negative (NEGATIVE) SARS-CoV-2 Antigen (Rapid) Negative (NEGATIVE) Sodium Level 142 mmol/L (136-145) Potassium Level 3.2 mmol/L (3.5-5.1) Chloride Level 108 mmol/L (98-107) Carbon Dioxide Level 20 mmol/L (21-32) Anion Gap 14 (6-14) Blood Urea Nitrogen 21 mg/dL (8-26) Creatinine 1.6 mg/dL (0.7-1.3) Estimated GFR (Cockcroft-Gault) 43.6 BUN/Creatinine Ratio 13 (6-20) Glucose Level 117 mg/dL (70-99) Lactic Acid Level 3.5 mmol/L (0.4-2.0) Calcium Level 8.3 mg/dL (8.5-10.1) Magnesium Level 1.4 mg/dL (1.8-2.4) Total Bilirubin 0.9 mg/dL (0.2-1.0) Aspartate Amino Transf (AST/SGOT) 61 U/L (15-37) Alanine Aminotransferase (ALT/SGPT) 23 U/L (16-63) Alkaline Phosphatase 126 U/L (46-116) Ammonia 27 mcmol/L (11-34) Troponin I High Sensitivity 52 ng/L (4-75) RQ-Rfb-R-Type Natriuretic Peptide 59700 pg/mL (0-124) Total Protein 7.0 g/dL (6.4-8.2) Albumin 3.0 g/dL (3.4-5.0) Albumin/Globulin Ratio 0.8 (1.0-1.7) Ethyl Alcohol Level < 10 mg/dL (0-10) Urine Collection Type U cath Urine Color Yellow Urine Clarity Clear Urine pH 5.0 (<5.0-8.0) Urine Specific [place] 1.010 (1.000-1.030) Urine Protein 30 mg/dL (NEG-TRACE) Urine Glucose (UA) Negative mg/dL (NEG) Urine Ketones (Stick) Negative mg/dL (NEG) Urine Blood Trace (NEG) Urine Nitrite Negative (NEG) Urine Bilirubin Negative (NEG) Urine Urobilinogen Dipstick 0.2 mg/dL (0.2 mg/dL) Urine Leukocyte Esterase Negative (NEG) Urine RBC Occ /HPF (0-2) Urine WBC Occ /HPF (0-4) Urine Squamous Epithelial Cells Few /LPF Urine Transitional Epithelial Cells Few /LPF Urine Bacteria 0 /HPF (0-FEW) Urine Hyaline Casts Few /HPF Urine Mucus Marked /LPF White Blood Count 11.8 x10^3/uL (4.0-11.0) Red Blood Count 4.15 x10^6/uL (4.30-5.70) Hemoglobin 10.0 g/dL (13.0-17.5) Hematocrit 32.4 % (39.0-53.0) Mean Corpuscular Volume 78 fL (79-100) Mean Corpuscular Hemoglobin 24 pg (25-35) Mean Corpuscular Hemoglobin Concent 31 g/dL (31-37) Red Cell Distribution Width 20.3 % (11.5-14.5) Platelet Count 233 x10^3/uL (140-400) Neutrophils (%) (Auto) 86 % (31-73) Lymphocytes (%) (Auto) 8 % (24-48) Monocytes (%) (Auto) 6 % (0-9) Eosinophils (%) (Auto) 0 % (0-3) Basophils (%) (Auto) 0 % (0-3) Neutrophils # (Auto) 10.1 x10^3/uL (1.8-7.7) Lymphocytes # (Auto) 0.9 x10^3/uL (1.0-4.8) Monocytes # (Auto) 0.7 x10^3/uL (0.0-1.1) Eosinophils # (Auto) 0.0 x10^3/uL (0.0-0.7) Basophils # (Auto) 0.1 x10^3/uL (0.0-0.2) Platelet Estimate Adequate (ADEQUATE) Platelet Clumps, EDTA Present Giant Platelets Occ Polychromasia Slight Anisocytosis Mod Ovalocytes Occ Images: Images PROCEDURE: PORTABLE CHEST 1V EXAM: Chest, single view. HISTORY: Fever. COMPARISON: 12/24/2020 FINDINGS: A frontal view of the chest is obtained. There is diffuse interstitial infiltrate. There is no consolidation, pleural effusion or pneumothorax. There is a prominent cardiac silhouette. There are median sternotomy changes. IMPRESSION: Diffuse interstitial infiltrate and prominent cardiac silhouette. PROCEDURE: CT HEAD WO CONTRAST CT HEAD/BRAIN WO Date: 03/31/2021 2:21 PM Clinical Indication: ams Comparison: 01/24/2021. Technique: 5 mm axial tomographic images were obtained of the head without contrast. These were viewed on brain and bone windows. One or more of the following dose reduction techniques were utilized: Automated exposure control (AEC), Adjustment of mA and/or kV according to patient size, Use of iterative reconstruction technique such as ASiR, CT scan done according to ALARA and image gently/image wisely Findings: Moderate size area of luong-white loss in the right posterior parietal region, new since 01/24/2021. No intra- or extra-axial mass or fluid collection. No acute hemorrhage. The ventricles are normal in size, shape, and morphology. The subarachnoid cisterns are patent. The visualized paranasal sinuses are normal. The visualized portions of the orbits and globes are normal. The mastoid air cells are clear. The radio artist topogram shows no lytic lesion or fracture. Impression: New moderate size area of luong-white loss in the right posterior parietal region, concerning for acute to subacute infarct. No acute hemorrhage. Assessment/Plan Assessment/Plan Problem List: Right posterior parietal acute on subacute infarct Acute metabolic and possible infectious encephalopathy Hemodynamic instability requiring fluid bolus and central line placement SHAVON due to vasomotor nephropathy ATN Lactic acidosis Hypomagnesemia Acute on chronic CHF exacerbation Microcytic anemia due to chronic inflammatory disease History of CHF with LVEF of 25% Hx of DM Hx of DVT Hx of HTN Hx of CAD Admit to hospitalist service for further management Neurology consult Continue empiric IV antibiotics Duplex ultrasound of the right lower extremity Wound care consult Vasopressors as needed to maintain maps greater than 55 Continue judicious IV fluid replacement in the context of CHF Strict I's/O Monitor urine output closely Trend LA R ISS and Accu-Cheks Lovenox for DVT prophylaxis Protonix GI prophylaxis ADA diet CODE STATUS DNR Discussed with RN and SW Disposition inpatient management as above, ICU care DPOA: Sister In addition to my E/M visit, advance care planning done with A total time of 20 minutes was spent from 330 to 350 face to face in discussion regarding the patient's goals of care, CODE STATUS. Justifications for Admission Other Justification Chest pain. LAURO NGO MD Mar 31, 2021 17:15
[2021-03-31] MEDS ORDERED: VANCOMYCIN 2 GM in IV NORMAL SALINE 500ML BAG 500 ML IV ONE (17:30)
--- NOTE | 2021-03-31 17:52 | RAD ---
Exam: Ultrasound right lower extremity arterial duplex Indication: PTFE graft Technique: Real-time grayscale and color Doppler images of the right lower extremity were obtained by the department yarrow gatherer. Comparisons: None FINDINGS: Peak systolic velocities as follows: SALES AND SERVICE ADVISOR: 201 Profunda: 198 There is a graft which extends from the proximal SFA to the popliteal artery, which is patent Proximal graft: 162 Mid graft: 53 Distal graft: 67 Popliteal artery: 86 Proximal OIM CONSULTANT: 24 Distal OIM CONSULTANT: 23 ABUNDIO: 159 DPA: 34 Peroneal: 37 Monophasic waveforms at the graft, distal OIM CONSULTANT, peroneal and DPA. There is a large simple appearing fluid collection along the distal aspect of the graft which measure s approximately 4.9 x 2.7 cm, which is new compared to the prior study. IMPRESSION: 1. Femoropopliteal bypass graft is patent with monophasic flow. 2. Simple appearing fluid collection along the distal aspect of the graft measuring 4.9 x 2.7 cm. Th is nonspecific could relate to a seroma. No internal vascular flow is identified 3. Increased velocities noted at the proximal right lower extremity vasculature without discrete are a of stenosis identified Electronically signed by: Oswaldo Carrasco MD (03/31/2021 5:50 PM) [facility]
[2021-03-31] MEDS: IV NORMAL SALINE 1000ML BAG 1,000 ML IV SCH (18:13)
[2021-03-31 18:45] VITALS: BP 90/48
[2021-03-31] MEDS: POTASSIUM CHLORIDE 10MEQ 100 ML IV SCH ×4 (18:47→22:00)
[2021-03-31] MEDS: CEFEPIME HCL IV Push 1 GM VIAL. IVP SCH (18:47)
[2021-03-31] MEDS: VANCOMYCIN PER PHARMACY MC PRN (18:51)
--- NOTE | 2021-03-31 18:53 | NUR ---
Pharmacy Vancomycin Dosing Note S:Consulted to monitor and dose vancomycin started 03/31/21. O:ELYSAS CONTRERAS is a 65 year old M with Sepsis Height: 5 feet, 11 inches Weight: 88.0 kg [place] Body Weight: 75.30 Adjusted Body Weight: 80.38 Dosing Weight: Actual Other Antibiotics: LABS: Last BUN: 21 Last Creatinine: 1.6 Creatinine Clearance: 52 mL/min Last WBC: 11.8 Last Procalcitonin: Tmax (past 24 hours): 102.9 Microbiology: - I/O: - Drug Levels: Last level: on at Last dose given 03/31/21 at 1819 Vancomycin Dosing: Loading Dose: 2000 mg x1 Dosing Weight: Actual Target Trough: 15-20 A: Based on: weight/renal function and dosing during prior admit P: 1. Begin Vancomycin 1250 mg IV q24h 2. Follow up Trough level on 04/02/21 at 1730 3. Pharmacy will continue to monitor, follow and adjust therapy as needed. Veronika Orta Silviano, 03/31/21 [id number]
[2021-03-31 20:00] VITALS: BP 80/35
[2021-03-31 21:00] VITALS: BP 92/49
[2021-03-31] MEDS: LORazepam 0.5 MG TABLET PO PRN (21:38)
[2021-03-31] MEDS: ACETAMINOPHEN 325 MG TABLET. PO PRN (21:38)
[2021-03-31] MEDS: ENOXAPARIN 40 MG/0.4 ML SYRINGE. SQ SCH (21:39)
[2021-03-31 22:00] VITALS: BP 85/44
[2021-03-31 23:00] VITALS: BP_SYST 81; BP_SYST 93; BP_DIAS 36; BP_DIAS 39
[2021-04-01] VITALS (27 sets, daily range): BP systolic 89–175; BP diastolic 51–76
[2021-04-01] MEDS: NOREPINEPHRINE VIAL 8 MG in IV DEXTROSE 5% 250 ML IV PRN ×2 (00:05→09:34)
[2021-04-01] MEDS ORDERED: INFLUENZA VAX SCREEN BY RX. MC PRN (01:39)
--- NOTE | 2021-04-01 03:00 | NUR ---
Bladder scan shows 688cc. 16FR Esquivel inserted w/o difficulty. Clear yellow urine returned. Right groin wound swabbed and sample sent to lab for culture. Patient c/o right bicep pain "where the ER gave me a shot." Warm pack put on shoulder. Taking water w/o dysphagia. Photos of wounds taken. Right groin, rashy area to low back, right buttock, and toes.
[2021-04-01 06:11] LABS: BASO % 0 % (0-3); EOS % 0 % (0-3); HEMATOCRIT 30.4 % (39.0-53.0); HEMOGLOBIN 9.5 g/dL (13.0-17.5); LYMPH # 0.7 x10^3/uL (1.0-4.8); LYMPH % 5 % (24-48); MEAN CORPUSCULAR HEMOGLOBIN 25 pg (25-35); MEAN CORPUSCULAR HGB CONC 31 g/dL (31-37); MEAN CORPUSCULAR VOLUME 78 fL (79-100); MONO # 0.7 x10^3/uL (0.0-1.1); MONO % 4 % (0-9); NEUT # 14.6 x10^3/uL (1.8-7.7); NEUT % 91 % (31-73); PLATELET COUNT 178 x10^3/uL (140-400); RED BLOOD COUNT 3.89 x10^6/uL (4.30-5.70); RED CELL DISTRIBUTION WIDTH 20.6 % (11.5-14.5)
[2021-04-01 06:27] LABS: CALCIUM 7.4 mg/dL (8.5-10.1); CREATININE 1.5 mg/dL (0.7-1.3); PHOSPHORUS 3.7 mg/dL (2.6-4.7); POTASSIUM 4.5 mmol/L (3.5-5.1)
--- NOTE | 2021-04-01 06:45 | NUR ---
Right groin wound very moist, no odor, picture in chart. right leg is warm w/ slight edema. Swab for Culture sent.
[2021-04-01 06:54] LABS: % BANDS 11 % (0-9); % LYMPHS 1 % (24-48); % MONOS 5 % (0-10); % SEGS 83 % (35-66); PLT ESTIMATE ADEQUATE (ADEQUATE)
[2021-04-01] MEDS: INSULIN LISPRO 300 UNITS/3 ML VIAL. SQ SCH ×3 (08:00→17:00)
[2021-04-01] MEDS: IV NORMAL SALINE 1000ML BAG 1,000 ML IV SCH ×3 (09:31→19:59)
[2021-04-01] MEDS: ACETAMINOPHEN 325 MG TABLET. PO PRN (10:41)
--- NOTE | 2021-04-01 10:55 | PDOC2 ---
NEUROLOGY CONSULT Date of Service DOS: DATE: 04/01/21 TIME: 10:33 Reason for Consult Reason for Consult: Altered mental status Referring Physician Referring Physician: Dr. Champion Source Source: Chart review, Patient History of Present Illness History of Present Illness The patient is a 65-year-old right-handed male last known normal 02:00 yesterday morning. His roommate tried to wake him at 9 AM to go to a and he was confused. His roommate thought he was sleeping so he left him alone. Patient remained confused in the afternoon so roommate called emergency medical service. I followed her him during his lengthy hospitalization in December and January of last year. He had undergone a right fem to above knee popliteal bypass and toe amputations on 12/31, then further debridement and amputations on 01/27 and remained confused afterwards. Electroencephalogram showed metabolic encephalopathy without epileptic activity, head CT was negative. There was no o bvious metabolic issue, but he did have a vicious cycle of sleep-wake cycle disturbance. Also, he suffered the of his mother right before he was admitted. Sister told us that the patient has had a mental decline since a work injury 10 years before. Patient is DNR. I had written that the patient needed a guardianship, but apparently after [facility] rehab, he was sent back to his home. He was driving himself to [employer] and taking care of himself. In the emergency department, he was found to have high fever, he also had infiltrate on his chest x-ray consistent with pneumonia, leukocytosis, hypotension, and suspicion for COVID-19 infection. He has received antibiotics and fluids and is much more alert now. He is complaining of right shoulder pain. Past Medical History Cardiovascular: AFIB, CAD, CHF, HTN, [place], Hyperlipidemia, Other (DVT, peripheral artery disease) GI: Peptic Ulcer disease, Other (Diarrhea) Psych: Anxiety Renal/: Other (Nephrolithiasis) Endocrine: Diabetes Past Surgical History Past Surgical History: CABG, Other (Coronary stent, bilateral rotator cuff) Family History Family History: Other (Dementia) Social History Social History Single, former abuser of alcohol, tobacco, methamphetamine Current Medications Current Medications Current Medications Sodium Chloride 1,000 ml @ 1,000 mls/hr Q1H IV Last administered on 03/31/21at 14:30; Start 03/31/21 at 14:30; Stop 03/31/21 at 15:29; Status DC Acetaminophen (Tylenol Supp) 975 mg 1X ONCE [place] Last administered on 03/31/21at 14:30; Start 03/31/21 at 14:30; Stop 03/31/21 at 14:31; Status DC Piperacillin Sod/ Tazobactam Sod 3.375 gm/Sodium Chloride 50 ml @ 100 mls/hr 1X ONCE IV Last administered on 03/31/21at 15:07; Start 03/31/21 at 15:00; Stop 03/31/21 at 15:29; Status DC Sodium Chloride 1,000 ml @ 1,000 mls/hr 1X ONCE IV Last administered on 03/31/21at 15:03; Start 03/31/21 at 15:00; Stop 03/31/21 at 15:59; Status DC Magnesium Sulfate 50 ml @ 25 mls/hr 1X ONCE IV Last administered on 03/31/21at 15:52; Start 03/31/21 at 15:30; Stop 03/31/21 at 17:29; Status DC Lidocaine HCl (Lidocaine 1% 20ml Vial) 20 ml 1X ONCE INJ Last administered on 03/31/21at 16:00; Start 03/31/21 at 16:30; Stop 03/31/21 at 16:31; Status DC Sodium Chloride (NORMAL SALINE FLUSH for STERILE FIELD) 10 ml STK-MED ONCE .ROUTE ; Start 03/31/21 at 15:57; Stop 03/31/21 at 15:57; Status DC Lidocaine HCl (Lidocaine 2% 20ml Vial) 20 ml STK-MED ONCE .ROUTE ; Start 03/31/21 at 15:58; Stop 03/31/21 at 15:59; Status DC Norepinephrine Bitartrate 8 mg/ Dextrose 258 ml @ 14.126 mls/ hr 1X ONCE IV Last administered on 03/31/21at 16:41; Start 03/31/21 at 16:30; Stop 04/01/21 at 07:39; Status DC Vancomycin HCl (Vanco Per Pharmacy) 1 each PRN DAILY PRN MC SEE COMMENTS Last administered on 03/31/21at 18:51; Start 03/31/21 at 17:00 Cefepime HCl (Maxipime) 1 gm Q24H IVP Last administered on 03/31/21at 18:47; Start 03/31/21 at 18:00 Sennosides (Senna) 17.2 mg PRN BID PRN PO CONSTIPATION; Start 03/31/21 at 17:00 Docusate Sodium (Colace) 100 mg PRN DAILY PRN PO HARD STOOLS; Start 03/31/21 at 17:00 Ondansetron HCl (Zofran) 4 mg PRN Q6HRS PRN IVP NAUSEA/VOMITING, 1st CHOICE; Start 03/31/21 at 17:00 Insulin Human Lispro (HumaLOG) 0-7 UNITS TIDWMEALS SQ ; Start 04/01/21 at 08:00 Dextrose (Dextrose 50%-Water Syringe) 12.5 gm PRN Q15MIN PRN IV SEE COMMENTS; Start 03/31/21 at 17:00 Sodium Chloride 1,000 ml @ 100 mls/hr Q10H IV Last administered on 04/01/21at 09:31; Start 03/31/21 at 18:00 Acetaminophen (Tylenol) 650 mg PRN Q4HRS PRN PO TEMP OVER 100.4F OR MILD PAIN Last administered on 03/31/21at 21:38; Start 03/31/21 at 17:00 Lorazepam (Ativan) 0.5 mg PRN Q6HRS PRN PO ANXIETY / AGITATION Last administered on 03/31/21at 21:38; Start 03/31/21 at 17:00 Lorazepam (Ativan Inj) 0.25 mg PRN Q4HRS PRN IV ANXIETY / AGITATION; Start 03/31/21 at 17:00 Enoxaparin Sodium (Lovenox 40mg Syringe) 40 mg Q24H SQ Last administered on 03/31/21at 21:39; Start 03/31/21 at 21:00 Prochlorperazine Edisylate (Compazine) 10 mg PRN Q6HRS PRN IV NAUSEA/VOMITING, 2nd CHOICE; Start 03/31/21 at 17:00 Diphenhydramine HCl (Benadryl) 25 mg PRN Q6HRS PRN IVP ITCHING; Start 03/31/21 at 17:00 Diphenhydramine HCl (Benadryl) 25 mg PRN Q6HRS PRN PO ITCHING; Start 03/31/21 at 17:00 Diphenhydramine HCl (Benadryl) 25 mg PRN QHS PRN PO INSOMNIA, 1st CHOICE; S tart 03/31/21 at 17:00 Zolpidem Tartrate (Ambien) 2.5 mg PRN QHS PRN PO INSOMNIA, 2nd CHOICE; Start 03/31/21 at 17:00 Ondansetron HCl (Zofran) 4 mg PRN Q8HRS PRN IVP NAUSEA/VOMITING; Start 03/31/21 at 17:15; Stop 04/01/21 at 17:14; Status UNV Sodium Chloride 1,000 ml @ 125 mls/hr Q8H IV ; Start 03/31/21 at 17:15; Stop 04/01/21 at 17:14; Status UNV Potassium Chloride/Water 100 ml @ 100 mls/hr Q1H IV Last administered on 03/31/21at 22:00; Start 03/31/21 at 18:00; Stop 03/31/21 at 21:59; Status DC Vancomycin HCl 2 gm/Sodium Chloride 500 ml @ 250 mls/hr 1X ONCE IV Last administered on 03/31/21at 18:19; Start 03/31/21 at 17:30; Stop 03/31/21 at 19:29; Status DC Magnesium Sulfate 50 ml @ 25 mls/hr 1X ONCE IV Last administered on 03/31/21at 18:24; Start 03/31/21 at 17:30; Stop 03/31/21 at 19:29; Status DC Vancomycin HCl 1.25 gm/Sodium Chloride 250 ml @ 167 mls/hr Q24H IV ; Start 04/01/21 at 18:00 Vancomycin HCl (Vancomycin Trough Level) 1 each 1X ONCE MC ; Start 04/02/21 at 17:30; Stop 04/02/21 at 17:31 Norepinephrine Bitartrate 8 mg/ Dextrose 258 ml @ 16.37 mls/ hr CONT PRN IV PER PROTOCOL Last administered on 04/01/21at 09:34; Start 04/01/21 at 00:00 Info (FLU VACCINE SCREEN per RX) 1 each PRN DAILY PRN MC SEE COMMENTS; Start 04/01/21 at 01:39 Active Scripts Active Duoneb 0.5-3(2.5) Mg/3 Ml (Albuterol/Ipratropium) 3 Ml Ampul.neb 3 Ml NEB BID Flomax (Tamsulosin Hcl) 0.4 Mg Cap.er.24h 0.4 Mg PO QHS Olanzapine 5 Mg Tablet 5 Mg PO BID Quetiapine Fumarate ER (Quetiapine Fumarate) 50 Mg Tab.er.24h 100 Mg PO QHS Culturelle (Lactobacillus Rhamnosus Gg) 1 Each Cap.sprink 1 Cap PO BID Thera-M Tablet (Multivits,Ca,Minerals/Iron/Fa) 1 Each Tablet 1 Tab PO DAILY Percocet 5-325 Mg Tablet (Oxycodone/Acetaminophen) 1 Each Tablet 1 Tab PO PRN Q4HRS PRN Fluoxetine Hcl 20 Mg Capsule 20 Mg PO DAILY Cefdinir 300 Mg Capsule 300 Mg PO BID Doxycycline Hyclate 100 Mg Tablet 100 Mg PO BID Metoprolol Succinate ( Xl ) (Metoprolol Succinate) 100 Mg Tab.er.24h 150 Mg PO DAILY 30 Days Amiodarone Hcl 200 Mg Tablet 200 Mg PO DAILY 30 Days Clopidogrel (Clopidogrel Bisulfate) 75 Mg Tablet 1 Tab PO DAILY Atorvastatin Calcium 40 Mg Tablet 40 Mg PO QHS 30 Days Reported Gabapentin 300 Mg Capsule 300 Mg PO TID Eliquis (Apixaban) 5 Mg Tablet 5 Mg PO BID Allergies Allergies: Coded Allergies: No Known Drug Allergies (Unverified , 02/27/17) ROS Review of System Negative for fever, chills, weight loss, shortness of breath, chest pain, indigestion, hematochezia, melena, and dysuria. Full 14-point review of systems is negative. Physical Exam Physical Examination General: Well-developed, well-nourished, white male, in no acute distress HEENT: Normocephalic andatraumatic. Temporal arteriespulsatile and nontender. Neck: Supple without bruit, no meningismus Musculoskeletal: Stability:see neurologic. Gait exam:see neurologic. Tone:see neurologic.Strength:see neurologic. Neurological: Mental Status:orientation, memory, attention span/concentration, language, fund of knowledge: Alert, does not know the name of the hospital but he knows he is in one, does not know the date, follows commands, names and repeats. Cranial Nerves:Pupils equal and reactive to light, extraocular movements areintact, visual lozoya are full to confrontation. Facial sensation is normal. There is no facial asymmetry. Vestibulo-ocular reflex is intact. Palate elevates and tongue protrudes in midline. All other cranial related problems are negative except as mentioned before.Reflexes:0-1+ and symmetric with flexor plantar responses (several toes amputated). Motor:4/5 strength with normal tone and bulk. Splints right shoulder. Coordination:Finger-nose finger and gbwk-mu-[id number] testing are normal. Rapid alternating movements and fine finger movements are intact. Gait:Not tested. Sensory:Stocking loss. Vitals VITALS Vital Signs Date Time Temp Pulse Resp B/P (MAP) Pulse Ox O2 Delivery O2 Flow Rate FiO2 04/01/21 06:00 72 24 141/67 100 Nasal Cannula 3.0 03/31/21 23:00 99.5 99.5 Labs Labs Laboratory Tests Test 03/31/21 14:14 03/31/21 14:21 03/31/21 14:25 03/31/21 15:17 Glucose (Fingerstick) 112 mg/dL (70-99) Coronavirus (COVID-19)(PCR) Not detected (NOT DETECTD) Influenza Type A Antigen Negative (NEGATIVE) Influenza Type B Antigen Negative (NEGATIVE) SARS-CoV-2 Antigen (Rapid) Negative (NEGATIVE) Sodium Level 142 mmol/L (136-145) Potassium Level 3.2 mmol/L (3.5-5.1) Chloride Level 108 mmol/L (98-107) Carbon Dioxide Level 20 mmol/L (21-32) Anion Gap 14 (6-14) Blood Urea Nitrogen 21 mg/dL (8-26) Creatinine 1.6 mg/dL (0.7-1.3) Estimated GFR (Cockcroft-Gault) 43.6 BUN/Creatinine Ratio 13 (6-20) Glucose Level 117 mg/dL (70-99) Lactic Acid Level 3.5 mmol/L (0.4-2.0) Calcium Level 8.3 mg/dL (8.5-10.1) Magnesium Level 1.4 mg/dL (1.8-2.4) Total Bilirubin 0.9 mg/dL (0.2-1.0) Aspartate Amino Transf (AST/SGOT) 61 U/L (15-37) Alanine Aminotransferase (ALT/SGPT) 23 U/L (16-63) Alkaline Phosphatase 126 U/L (46-116) Ammonia 27 mcmol/L (11-34) Troponin I High Sensitivity 52 ng/L (4-75) SG-Nkq-O-Type Natriuretic Peptide 96649 pg/mL (0-124) Total Protein 7.0 g/dL (6.4-8.2) Albumin 3.0 g/dL (3.4-5.0) Albumin/Globulin Ratio 0.8 (1.0-1.7) Ethyl Alcohol Level < 10 mg/dL (0-10) Urine Collection Type U cath Urine Color Yellow Urine Clarity Clear Urine pH 5.0 (<5.0-8.0) Urine Specific Lovejoy 1.010 (1.000-1.030) Urine Protein 30 mg/dL (NEG-TRACE) Urine Glucose (UA) Negative mg/dL (NEG) Urine Ketones (Stick) Negative mg/dL (NEG) Urine Blood Trace (NEG) Urine Nitrite Negative (NEG) Urine Bilirubin Negative (NEG) Urine Urobilinogen Dipstick 0.2 mg/dL (0.2 mg/dL) Urine Leukocyte Esterase Negative (NEG) Urine RBC Occ /HPF (0-2) Urine WBC Occ /HPF (0-4) Urine Squamous Epithelial Cells Few /LPF Urine Transitional Epithelial Cells Few /LPF Urine Bacteria 0 /HPF (0-FEW) Urine Hyaline Casts Few /HPF Urine Mucus Marked /LPF White Blood Count 11.8 x10^3/uL (4.0-11.0) Red Blood Count 4.15 x10^6/uL (4.30-5.70) Hemoglobin 10.0 g/dL (13.0-17.5) Hematocrit 32.4 % (39.0-53.0) Mean Corpuscular Volume 78 fL (79-100) Mean Corpuscular Hemoglobin 24 pg (25-35) Mean Corpuscular Hemoglobin Concent 31 g/dL (31-37) Red Cell Distribution Width 20.3 % (11.5-14.5) Platelet Count 233 x10^3/uL (140-400) Neutrophils (%) (Auto) 86 % (31-73) Lymphocytes (%) (Auto) 8 % (24-48) Monocytes (%) (Auto) 6 % (0-9) Eosinophils (%) (Auto) 0 % (0-3) Basophils (%) (Auto) 0 % (0-3) Neutrophils # (Auto) 10.1 x10^3/uL (1.8-7.7) Lymphocytes # (Auto) 0.9 x10^3/uL (1.0-4.8) Monocytes # (Auto) 0.7 x10^3/uL (0.0-1.1) Eosinophils # (Auto) 0.0 x10^3/uL (0.0-0.7) Basophils # (Auto) 0.1 x10^3/uL (0.0-0.2) Platelet Estimate Adequate (ADEQUATE) Platelet Clumps, EDTA Present Giant Platelets Occ Polychromasia Slight Anisocytosis Mod Ovalocytes Occ Test 03/31/21 20:35 04/01/21 05:35 04/01/21 05:42 Lactic Acid Level 1.9 mmol/L (0.4-2.0) White Blood Count 16.0 x10^3/uL (4.0-11.0) Red Blood Count 3.89 x10^6/uL (4.30-5.70) Hemoglobin 9.5 g/dL (13.0-17.5) Hematocrit 30.4 % (39.0-53.0) Mean Corpuscular Volume 78 fL (79-100) Mean Corpuscular Hemoglobin 25 pg (25-35) Mean Corpuscular Hemoglobin Concent 31 g/dL (31-37) Red Cell Distribution Width 20.6 % (11.5-14.5) Platelet Count 178 x10^3/uL (140-400) Neutrophils (%) (Auto) 91 % (31-73) Lymphocytes (%) (Auto) 5 % (24-48) Monocytes (%) (Auto) 4 % (0-9) Eosinophils (%) (Auto) 0 % (0-3) Basophils (%) (Auto) 0 % (0-3) Neutrophils # (Auto) 14.6 x10^3/uL (1.8-7.7) Lymphocytes # (Auto) 0.7 x10^3/uL (1.0-4.8) Monocytes # (Auto) 0.7 x10^3/uL (0.0-1.1) Eosinophils # (Auto) 0.0 x10^3/uL (0.0-0.7) Basophils # (Auto) 0.0 x10^3/uL (0.0-0.2) Segmented Neutrophils % 83 % (35-66) Band Neutrophils % 11 % (0-9) Lymphocytes % 1 % (24-48) Monocytes % 5 % (0-10) Platelet Estimate Adequate (ADEQUATE) Sodium Level 140 mmol/L (136-145) Potassium Level 4.5 mmol/L (3.5-5.1) Chloride Level 108 mmol/L (98-107) Carbon Dioxide Level 18 mmol/L (21-32) Anion Gap 14 (6-14) Blood Urea Nitrogen 22 mg/dL (8-26) Creatinine 1.5 mg/dL (0.7-1.3) Estimated GFR (Cockcroft-Gault) 47.0 Glucose Level 128 mg/dL (70-99) Calcium Level 7.4 mg/dL (8.5-10.1) Phosphorus Level 3.7 mg/dL (2.6-4.7) Magnesium Level 2.0 mg/dL (1.8-2.4) Glucose (Fingerstick) 123 mg/dL (70-99) Laboratory Tests Test 03/31/21 14:14 03/31/21 14:21 03/31/21 14:25 03/31/21 15:17 Glucose (Fingerstick) 112 mg/dL (70-99) Coronavirus (COVID-19)(PCR) Not detected (NOT DETECTD) Influenza Type A Antigen Negative (NEGATIVE) Influenza Type B Antigen Negative (NEGATIVE) SARS-CoV-2 Antigen (Rapid) Negative (NEGATIVE) Sodium Level 142 mmol/L (136-145) Potassium Level 3.2 mmol/L (3.5-5.1) Chloride Level 108 mmol/L (98-107) Carbon Dioxide Level 20 mmol/L (21-32) Anion Gap 14 (6-14) Blood Urea Nitrogen 21 mg/dL (8-26) Creatinine 1.6 mg/dL (0.7-1.3) Estimated GFR (Cockcroft-Gault) 43.6 BUN/Creatinine Ratio 13 (6-20) Glucose Level 117 mg/dL (70-99) Lactic Acid Level 3.5 mmol/L (0.4-2.0) Calcium Level 8.3 mg/dL (8.5-10.1) Magnesium Level 1.4 mg/dL (1.8-2.4) Total Bilirubin 0.9 mg/dL (0.2-1.0) Aspartate Amino Transf (AST/SGOT) 61 U/L (15-37) Alanine Aminotransferase (ALT/SGPT) 23 U/L (16-63) Alkaline Phosphatase 126 U/L (46-116) Ammonia 27 mcmol/L (11-34) Troponin I High Sensitivity 52 ng/L (4-75) VX-Pxr-V-Type Natriuretic Peptide 75261 pg/mL (0-124) Total Protein 7.0 g/dL (6.4-8.2) Albumin 3.0 g/dL (3.4-5.0) Albumin/Globulin Ratio 0.8 (1.0-1.7) Ethyl Alcohol Level < 10 mg/dL (0-10) Urine Collection Type U cath Urine Color Yellow Urine Clarity Clear Urine pH 5.0 (<5.0-8.0) Urine Specific Lovejoy 1.010 (1.000-1.030) Urine Protein 30 mg/dL (NEG-TRACE) Urine Glucose (UA) Negative mg/dL (NEG) Urine Ketones (Stick) Negative mg/dL (NEG) Urine Blood Trace (NEG) Urine Nitrite Negative (NEG) Urine Bilirubin Negative (NEG) Urine Urobilinogen Dipstick 0.2 mg/dL (0.2 mg/dL) Urine Leukocyte Esterase Negative (NEG) Urine RBC Occ /HPF (0-2) Urine WBC Occ /HPF (0-4) Urine Squamous Epithelial Cells Few /LPF Urine Transitional Epithelial Cells Few /LPF Urine Bacteria 0 /HPF (0-FEW) Urine Hyaline Casts Few /HPF Urine Mucus Marked /LPF White Blood Count 11.8 x10^3/uL (4.0-11.0) Red Blood Count 4.15 x10^6/uL (4.30-5.70) Hemoglobin 10.0 g/dL (13.0-17.5) Hematocrit 32.4 % (39.0-53.0) Mean Corpuscular Volume 78 fL (79-100) Mean Corpuscular Hemoglobin 24 pg (25-35) Mean Corpuscular Hemoglobin Concent 31 g/dL (31-37) Red Cell Distribution Width 20.3 % (11.5-14.5) Platelet Count 233 x10^3/uL (140-400) Neutrophils (%) (Auto) 86 % (31-73) Lymphocytes (%) (Auto) 8 % (24-48) Monocytes (%) (Auto) 6 % (0-9) Eosinophils (%) (Auto) 0 % (0-3) Basophils (%) (Auto) 0 % (0-3) Neutrophils # (Auto) 10.1 x10^3/uL (1.8-7.7) Lymphocytes # (Auto) 0.9 x10^3/uL (1.0-4.8) Monocytes # (Auto) 0.7 x10^3/uL (0.0-1.1) Eosinophils # (Auto) 0.0 x10^3/uL (0.0-0.7) Basophils # (Auto) 0.1 x10^3/uL (0.0-0.2) Platelet Estimate Adequate (ADEQUATE) Platelet Clumps, EDTA Present Giant Platelets Occ Polychromasia Slight Anisocytosis Mod Ovalocytes Occ Test 03/31/21 20:35 04/01/21 05:35 04/01/21 05:42 Lactic Acid Level 1.9 mmol/L (0.4-2.0) White Blood Count 16.0 x10^3/uL (4.0-11.0) Red Blood Count 3.89 x10^6/uL (4.30-5.70) Hemoglobin 9.5 g/dL (13.0-17.5) Hematocrit 30.4 % (39.0-53.0) Mean Corpuscular Volume 78 fL (79-100) Mean Corpuscular Hemoglobin 25 pg (25-35) Mean Corpuscular Hemoglobin Concent 31 g/dL (31-37) Red Cell Distribution Width 20.6 % (11.5-14.5) Platelet Count 178 x10^3/uL (140-400) Neutrophils (%) (Auto) 91 % (31-73) Lymphocytes (%) (Auto) 5 % (24-48) Monocytes (%) (Auto) 4 % (0-9) Eosinophils (%) (Auto) 0 % (0-3) Basophils (%) (Auto) 0 % (0-3) Neutrophils # (Auto) 14.6 x10^3/uL (1.8-7.7) Lymphocytes # (Auto) 0.7 x10^3/uL (1.0-4.8) Monocytes # (Auto) 0.7 x10^3/uL (0.0-1.1) Eosinophils # (Auto) 0.0 x10^3/uL (0.0-0.7) Basophils # (Auto) 0.0 x10^3/uL (0.0-0.2) Segmented Neutrophils % 83 % (35-66) Band Neutrophils % 11 % (0-9) Lymphocytes % 1 % (24-48) Monocytes % 5 % (0-10) Platelet Estimate Adequate (ADEQUATE) Sodium Level 140 mmol/L (136-145) Potassium Level 4.5 mmol/L (3.5-5.1) Chloride Level 108 mmol/L (98-107) Carbon Dioxide Level 18 mmol/L (21-32) Anion Gap 14 (6-14) Blood Urea Nitrogen 22 mg/dL (8-26) Creatinine 1.5 mg/dL (0.7-1.3) Estimated GFR (Cockcroft-Gault) 47.0 Glucose Level 128 mg/dL (70-99) Calcium Level 7.4 mg/dL (8.5-10.1) Phosphorus Level 3.7 mg/dL (2.6-4.7) Magnesium Level 2.0 mg/dL (1.8-2.4) Glucose (Fingerstick) 123 mg/dL (70-99) Images Images CT HEAD/BRAIN WO Date: 03/31/2021 2:21 PM Clinical Indication: ams Comparison: 01/24/2021. Technique: 5 mm axial tomographic images were obtained of the head without contrast. These were viewed on brain and bone windows. One or more of the following dose reduction techniques were utilized: Automated exposure control (AEC), Adjustment of mA and/or kV according to patient size, Use of iterative reconstruction technique such as ASiR, CT scan done according to ALARA and image gently/image wisely Findings: Moderate size area of luong-white loss in the right posterior parietal region, new since 01/24/2021. No intra- or extra-axial mass or fluid collection. No acute hemorrhage. The ventricles are normal in size, shape, and morphology. The subarachnoid cisterns are patent. The visualized paranasal sinuses are normal. The visualized portions of the orbits and globes are normal. The mastoid air cells are clear. The pot filler topogram shows no lytic lesion or fracture. Impression: New moderate size area of luong-white loss in the right posterior parietal region, concerning for acute to subacute infarct. No acute hemorrhage. Assessment/Plan Assessment/Plan Impression: Metabolic encephalopathy due to sepsis. No sign of acute stroke, abnormal head CT, though Diabetic neuropathy Previous debility from substance abuse, intellectual disability following head injury years ago. Multiple medical issues Right shoulder pain Recommendations: Treatment of sepsis and other medical issues MRI of the brain Right shoulder x-ray Rehabilitation modalities Thank you for letting me help with the patient's care. RUTH DOUGLAS MD Apr 01, 2021 10:55
--- NOTE | 2021-04-01 12:41 | PDOC ---
[employer] PROGRESS NOTE Date of Service DOS: DATE: 04/01/21 TIME: 12:37 Chief Complaint Chief Complaint Problem List: Right posterior parietal acute on subacute infarct Acute metabolic and possible infectious encephalopathy Hemodynamic instability requiring fluid bolus and central line placement SHAVON due to vasomotor nephropathy ATN Lactic acidosis Hypomagnesemia Acute on chronic CHF exacerbation Microcytic anemia due to chronic inflammatory disease History of CHF with LVEF of 25% Hx of DM Hx of DVT Hx of HTN Hx of CAD Admit to hospitalist service for further management Neurology consult Continue empiric IV antibiotics --> Vanc cefepime Duplex ultrasound of the right lower extremity -> normal but will check CTA given clinical evaluation today Wound care consult Vasopressors as needed to maintain maps greater than 55 Continue judicious IV fluid replacement in the context of CHF Strict I's/O Monitor urine output closely Trend LA R ISS and Accu-Cheks Lovenox for DVT prophylaxis Protonix GI prophylaxis ADA diet CODE STATUS DNR Discussed with RN and SW Disposition inpatient management as above, ICU care DPOA: Sister History of Present Illness History of Present Illness 04/01 Patient evaluated examined at bedside. Seems a bit altered said he was feeling "kind of like shit." On nasal cannula oxygen. Continue empiric antibiotics for lung infection possible cellulitis. Right lower extremity is quite tense erythematous and somewhat painful for the patient. Extensive surgical intervention previously on this leg but will try to check imaging today to eval for any acute processes. Could probably transfer out of ICU if needed. Plan discussed with bedside RN. Vitals/I&O Vitals/I&O: Vital Signs Date Time Temp Pulse Resp B/P (MAP) Pulse Ox O2 Delivery O2 Flow Rate FiO2 04/01/21 06:00 72 24 141/67 100 Nasal Cannula 3.0 03/31/21 23:00 99.5 99.5 I & O 03/31/21 03/31/21 04/01/21 15:00 23:00 07:00 Intake Total 360 ml 1464 ml Output Total 0 ml 700 ml Balance 360 ml 764 ml Physical Exam General: Alert, Cooperative, mild distress Heart: Regular rate, Normal S1, Normal S2 Lungs: Clear, Other Abdomen: Normal bowel sounds, Soft, No tenderness Extremities: Other (RLE tense and erythematous) Labs Labs: Laboratory Tests Test 03/31/21 14:14 03/31/21 14:21 03/31/21 14:25 03/31/21 15:17 Glucose (Fingerstick) 112 mg/dL (70-99) Coronavirus (COVID-19)(PCR) Not detected (NOT DETECTD) Influenza Type A Antigen Negative (NEGATIVE) Influenza Type B Antigen Negative (NEGATIVE) SARS-CoV-2 Antigen (Rapid) Negative (NEGATIVE) Sodium Level 142 mmol/L (136-145) Potassium Level 3.2 mmol/L (3.5-5.1) Chloride Level 108 mmol/L (98-107) Carbon Dioxide Level 20 mmol/L (21-32) Anion Gap 14 (6-14) Blood Urea Nitrogen 21 mg/dL (8-26) Creatinine 1.6 mg/dL (0.7-1.3) Estimated GFR (Cockcroft-Gault) 43.6 BUN/Creatinine Ratio 13 (6-20) Glucose Level 117 mg/dL (70-99) Lactic Acid Level 3.5 mmol/L (0.4-2.0) Calcium Level 8.3 mg/dL (8.5-10.1) Magnesium Level 1.4 mg/dL (1.8-2.4) Total Bilirubin 0.9 mg/dL (0.2-1.0) Aspartate Amino Transf (AST/SGOT) 61 U/L (15-37) Alanine Aminotransferase (ALT/SGPT) 23 U/L (16-63) Alkaline Phosphatase 126 U/L (46-116) Ammonia 27 mcmol/L (11-34) Troponin I High Sensitivity 52 ng/L (4-75) TZ-Nir-P-Type Natriuretic Peptide 54724 pg/mL (0-124) Total Protein 7.0 g/dL (6.4-8.2) Albumin 3.0 g/dL (3.4-5.0) Albumin/Globulin Ratio 0.8 (1.0-1.7) Ethyl Alcohol Level < 10 mg/dL (0-10) Urine Collection Type U cath Urine Color Yellow Urine Clarity Clear Urine pH 5.0 (<5.0-8.0) Urine Specific [place] 1.010 (1.000-1.030) Urine Protein 30 mg/dL (NEG-TRACE) Urine Glucose (UA) Negative mg/dL (NEG) Urine Ketones (Stick) Negative mg/dL (NEG) Urine Blood Trace (NEG) Urine Nitrite Negative (NEG) Urine Bilirubin Negative (NEG) Urine Urobilinogen Dipstick 0.2 mg/dL (0.2 mg/dL) Urine Leukocyte Esterase Negative (NEG) Urine RBC Occ /HPF (0-2) Urine WBC Occ /HPF (0-4) Urine Squamous Epithelial Cells Few /LPF Urine Transitional Epithelial Cells Few /LPF Urine Bacteria 0 /HPF (0-FEW) Urine Hyaline Casts Few /HPF Urine Mucus Marked /LPF White Blood Count 11.8 x10^3/uL (4.0-11.0) Red Blood Count 4.15 x10^6/uL (4.30-5.70) Hemoglobin 10.0 g/dL (13.0-17.5) Hematocrit 32.4 % (39.0-53.0) Mean Corpuscular Volume 78 fL (79-100) Mean Corpuscular Hemoglobin 24 pg (25-35) Mean Corpuscular Hemoglobin Concent 31 g/dL (31-37) Red Cell Distribution Width 20.3 % (11.5-14.5) Platelet Count 233 x10^3/uL (140-400) Neutrophils (%) (Auto) 86 % (31-73) Lymphocytes (%) (Auto) 8 % (24-48) Monocytes (%) (Auto) 6 % (0-9) Eosinophils (%) (Auto) 0 % (0-3) Basophils (%) (Auto) 0 % (0-3) Neutrophils # (Auto) 10.1 x10^3/uL (1.8-7.7) Lymphocytes # (Auto) 0.9 x10^3/uL (1.0-4.8) Monocytes # (Auto) 0.7 x10^3/uL (0.0-1.1) Eosinophils # (Auto) 0.0 x10^3/uL (0.0-0.7) Basophils # (Auto) 0.1 x10^3/uL (0.0-0.2) Platelet Estimate Adequate (ADEQUATE) Platelet Clumps, EDTA Present Giant Platelets Occ Polychromasia Slight Anisocytosis Mod Ovalocytes Occ Test 03/31/21 20:35 04/01/21 05:35 04/01/21 05:42 Lactic Acid Level 1.9 mmol/L (0.4-2.0) White Blood Count 16.0 x10^3/uL (4.0-11.0) Red Blood Count 3.89 x10^6/uL (4.30-5.70) Hemoglobin 9.5 g/dL (13.0-17.5) Hematocrit 30.4 % (39.0-53.0) Mean Corpuscular Volume 78 fL (79-100) Mean Corpuscular Hemoglobin 25 pg (25-35) Mean Corpuscular Hemoglobin Concent 31 g/dL (31-37) Red Cell Distribution Width 20.6 % (11.5-14.5) Platelet Count 178 x10^3/uL (140-400) Neutrophils (%) (Auto) 91 % (31-73) Lymphocytes (%) (Auto) 5 % (24-48) Monocytes (%) (Auto) 4 % (0-9) Eosinophils (%) (Auto) 0 % (0-3) Basophils (%) (Auto) 0 % (0-3) Neutrophils # (Auto) 14.6 x10^3/uL (1.8-7.7) Lymphocytes # (Auto) 0.7 x10^3/uL (1.0-4.8) Monocytes # (Auto) 0.7 x10^3/uL (0.0-1.1) Eosinophils # (Auto) 0.0 x10^3/uL (0.0-0.7) Basophils # (Auto) 0.0 x10^3/uL (0.0-0.2) Segmented Neutrophils % 83 % (35-66) Band Neutrophils % 11 % (0-9) Lymphocytes % 1 % (24-48) Monocytes % 5 % (0-10) Platelet Estimate Adequate (ADEQUATE) Sodium Level 140 mmol/L (136-145) Potassium Level 4.5 mmol/L (3.5-5.1) Chloride Level 108 mmol/L (98-107) Carbon Dioxide Level 18 mmol/L (21-32) Anion Gap 14 (6-14) Blood Urea Nitrogen 22 mg/dL (8-26) Creatinine 1.5 mg/dL (0.7-1.3) Estimated GFR (Cockcroft-Gault) 47.0 Glucose Level 128 mg/dL (70-99) Calcium Level 7.4 mg/dL (8.5-10.1) Phosphorus Level 3.7 mg/dL (2.6-4.7) Magnesium Level 2.0 mg/dL (1.8-2.4) Glucose (Fingerstick) 123 mg/dL (70-99) Assessment and Plan Assessmemt and Plan Problems Medical Problems: (1) AMS (altered mental status) Status: Acute (2) Pneumonia Status: Acute (3) Severe sepsis Status: Acute Comment Review of Relevant I have reviewed the following items rachel (where applicable) has been applied. Medications: Current Medications Medications (Trade) Dose Ordered Sig/Lizzeth Route PRN Reason Start Time Stop Time Status Last Admin Dose Admin Sodium Chloride 1,000 ml @ 1,000 mls/hr Q1H IV 03/31/21 14:30 03/31/21 15:29 DC 03/31/21 14:30 Acetaminophen (Tylenol Supp) 975 mg 1X ONCE CO 03/31/21 14:30 03/31/21 14:31 DC 03/31/21 14:30 Piperacillin Sod/ Tazobactam Sod 3.375 gm/Sodium Chloride 50 ml @ 100 mls/hr 1X ONCE IV 03/31/21 15:00 03/31/21 15:29 DC 03/31/21 15:07 Sodium Chloride 1,000 ml @ 1,000 mls/hr 1X ONCE IV 03/31/21 15:00 03/31/21 15:59 DC 03/31/21 15:03 Magnesium Sulfate 50 ml @ 25 mls/hr 1X ONCE IV 03/31/21 15:30 03/31/21 17:29 DC 03/31/21 15:52 Lidocaine HCl (Lidocaine 1% 20ml Vial) 20 ml 1X ONCE INJ 03/31/21 16:30 03/31/21 16:31 DC 03/31/21 16:00 Norepinephrine Bitartrate 8 mg/ Dextrose 258 ml @ 14.126 mls/ hr 1X ONCE IV 03/31/21 16:30 04/01/21 07:39 DC 03/31/21 16:41 Vancomycin HCl (Vanco Per Pharmacy) 1 each PRN DAILY PRN MC SEE COMMENTS 03/31/21 17:00 03/31/21 18:51 Cefepime HCl (Maxipime) 1 gm Q24H IVP 03/31/21 18:00 03/31/21 18:47 Sodium Chloride 1,000 ml @ 100 mls/hr Q10H IV 03/31/21 18:00 04/01/21 09:31 Acetaminophen (Tylenol) 650 mg PRN Q4HRS PRN PO TEMP OVER 100.4F OR MILD PAIN 03/31/21 17:00 04/01/21 10:41 Lorazepam (Ativan) 0.5 mg PRN Q6HRS PRN PO ANXIETY / AGITATION 03/31/21 17:00 03/31/21 21:38 Enoxaparin Sodium (Lovenox 40mg Syringe) 40 mg Q24H SQ 03/31/21 21:00 03/31/21 21:39 Potassium Chloride/Water 100 ml @ 100 mls/hr Q1H IV 03/31/21 18:00 03/31/21 21:59 DC 03/31/21 22:00 Vancomycin HCl 2 gm/Sodium Chloride 500 ml @ 250 mls/hr 1X ONCE IV 03/31/21 17:30 03/31/21 19:29 DC 03/31/21 18:19 Magnesium Sulfate 50 ml @ 25 mls/hr 1X ONCE IV 03/31/21 17:30 03/31/21 19:29 DC 03/31/21 18:24 Norepinephrine Bitartrate 8 mg/ Dextrose 258 ml @ 16.37 mls/ hr CONT PRN IV PER PROTOCOL 04/01/21 00:00 04/01/21 09:34 Justifications for Admission Other Justification Hypotension SP RENTERIA MD Apr 01, 2021 12:41
--- NOTE | 2021-04-01 13:26 | RAD ---
EXAM: Right shoulder, 3 views. HISTORY: Pain. COMPARISON: None. FINDINGS: 3 views the right shoulder obtained. There is no acute fracture, dislocation or subluxation . There has been distal clavicular resection. There is a right internal jugular catheter with the tip likely in the right atrium. There is diffuse increased interstitial opacity. There are vascular clip s within the proximal right upper arm. IMPRESSION: 1. No acute osseous finding. 2. Distal clavicular resection. 3. Diffuse interstitial infiltrate. Electronically signed by: Patti Campbell MD (04/01/2021 1:24 PM) [id number]
[2021-04-01] MEDS: VANCOMYCIN PER PHARMACY MC PRN (13:41)
[2021-04-01] MEDS: diphenhydrAMINE 50 MG/ML VIAL IVP PRN ×2 (13:43→21:06)
[2021-04-01] MEDS: LORazepam 0.5 MG TABLET PO PRN (14:02)
--- NOTE | 2021-04-01 15:09 | NUR ---
SS following for discharge planning. SS reviewed pt chart and discussed with pt RN. Pt is from home with spouse and is currently on room air. Pt on IV Vancomycin and IV Cefepime. Pt on Levophed. COVID19 negative. Neurology following. Pt having CT of legs and brain. BPCI. In network provider list provided. Not ready. SS will continue to follow for discharge planning.
--- NOTE | 2021-04-01 15:21 | NUR ---
Wound Care Wound Type/Assessment: Consult to eval and treat wounds to R groin and L 3rd toes. Pt is known to wound care and is a clinic patient. R groin wound is s/p fem-pop procedure that also underwent an OR debridement in the past, and use of NPWT. At this time, R groin wound is bright pink , hyper granulated with slough, purulent drainage and weeping blisters. R thigh is swollen, indurated from knee to buttock/lower abdomen; skin blistering in some places from excessive swelling. L 3rd toe has a small DFU that is purple and non-blanchable, but approximated. Pt combative, yelling out very loudly, cursing and shouting at staff. Ativan PO administered during visit, but did not achieve desired effect during assessment. Incontinent of watery stool. Purple discoloration noted to medial L foot, not consistent with a pressure point, likely r/t vascular status. The fingertips and palm of R hand also have dark red/purple discoloration. No other skin abnormalities noted on head to toe assessment. Treatment Recommendations/Plan: R groin: Cleanse and dry. Apply acticoat, ABD, tape. Change every other day and as needed to manage drainage. L 3rd toe: Pain with skin prep and leave NETTE Education provided: Pt inappropriate for education at this time. Offloading surface/device: ICU bed, pillows for comfort and positioning. Able to self turn. Non-compliant. Recommended Referrals/Tests: Pt going to CT for R thigh swelling Discharge Recommendations for dressings: As above
[2021-04-01] MEDS ORDERED: IOHEXOL 350 MG/ML 100 ML VIAL. IV ONE (16:00)
[2021-04-01] MEDS ORDERED: CONTRAST GIVEN. MC PRN (16:00)
--- NOTE | 2021-04-01 16:56 | RAD ---
EXAM: Brain MRI without contrast. HISTORY: Stroke. TECHNIQUE: Multiplanar, multisequence magnetic resonance imaging of the brain was performed without c ontrast. COMPARISON: CT obtained one day prior. FINDINGS: There is no restricted diffusion to suggest acute or subacute infarction. There is signal a bnormality consistent with early chronic infarction involving the posterior right temporal lobe and r ight parietal lobe. There is no hemorrhage. There is no mass effect or midline shift. There are tiny chronic infarct within the bilateral centrum semiovale. There are few white matter changes due to chr onic small vessel disease. The orbits are unremarkable. There is paranasal sinus mucosal thickening. There are normal flow voids within the cerebral vessels. The mastoid air cells are clear. There is a midline posterior inferior scalp soft tissue lipoma. IMPRESSION: 1. No acute intracranial finding. 2. Early chronic infarct involving the posterior right temporal lobe and right parietal lobe. 3. Tiny chronic infarcts involving the bilateral centrum semiovale. 4. Few white matter changes likely due to chronic small vessel disease. Electronically signed by: Patti Campbell MD (04/01/2021 4:53 PM) [id number]
[2021-04-01] MEDS: VANCOMYCIN 1.25 GM in IV NORMAL SALINE 250ML 250 ML IV SCH (17:39)
[2021-04-01] MEDS: CEFEPIME HCL IV Push 1 GM VIAL. IVP SCH (19:30)
--- NOTE | 2021-04-01 19:51 | NUR ---
Patient is confused and has 102.3 temp at this time. Flu vac unadmin
[2021-04-01] MEDS: ACETAMINOPHEN 650 MG SUPP.RECT. PR PRN (19:59)
[2021-04-01] MEDS ORDERED: FLU VACC QUAD 21-22 (6MOS+) PF 0.5 ML SYRINGE. VAX IM ONE (21:00)
[2021-04-01] MEDS: ENOXAPARIN 40 MG/0.4 ML SYRINGE. SQ SCH (21:06)
[2021-04-02] VITALS (22 sets, daily range): BP systolic 92–137; BP diastolic 48–75
[2021-04-02 05:24] LABS: CALCIUM 7.2 mg/dL (8.5-10.1)
[2021-04-02 06:17] LABS: BASO % 0 % (0-3); EOS % 0 % (0-3); HEMATOCRIT 27.8 % (39.0-53.0); HEMOGLOBIN 8.9 g/dL (13.0-17.5); LYMPH # 0.8 x10^3/uL (1.0-4.8); LYMPH % 6 % (24-48); MEAN CORPUSCULAR HEMOGLOBIN 25 pg (25-35); MEAN CORPUSCULAR HGB CONC 32 g/dL (31-37); MEAN CORPUSCULAR VOLUME 78 fL (79-100); MONO # 0.7 x10^3/uL (0.0-1.1); MONO % 5 % (0-9); NEUT # 12.4 x10^3/uL (1.8-7.7); NEUT % 89 % (31-73); PLATELET COUNT 129 x10^3/uL (140-400); RED BLOOD COUNT 3.58 x10^6/uL (4.30-5.70); RED CELL DISTRIBUTION WIDTH 19.8 % (11.5-14.5)
[2021-04-02] MEDS: IV NORMAL SALINE 1000ML BAG 1,000 ML IV SCH ×2 (06:22→21:31)
[2021-04-02] MEDS: INSULIN LISPRO 300 UNITS/3 ML VIAL. SQ SCH ×3 (08:00→17:00)
--- NOTE | 2021-04-02 10:21 | RAD ---
CLINICAL HISTORY: Reason: hx fem bypass;unilateral swelling,erythema, tense leg;OMNI 350,100ML / Spl. Instructions: / History: . COMPARISON: none TECHNIQUE:CT angiography of the right lower extremity was performed following the administration of I V contrast, the level of the aortic bifurcation to the ankle. 3-D reformatted images as well as axial , coronal and sagittal reformatted images including midbrain images were obtained. PQRS compliance statement - One or more of the following individualized dose reduction techniques wer e utilized for this study: 1. Automated exposure control 2. Adjustment of the mA and/or kV according to patient size 3. Use of iterative reconstruction technique FINDINGS: CT ANGIOGRAM: Visualized distal aorta is normal in caliber with atheromatous plaque and calcifications. There is de nse atheromatous plaque and calcifications of the visualized portions of the proximal common and inte rnal as well as external iliac arteries. Similar appearance of the right common femoral artery, witho ut high-grade stenosis or occlusion. Bypass graft arises from the common femoral artery just proximal to the takeoff of the deep right fem oral artery. Dense atheromatous plaque and calcifications of the proximal right superficial femoral a rtery with occlusion approximately 5 cm beyond the takeoff of the deep femoral artery. There is recon stitution of the SFA with thready flow just proximal to the right popliteal artery. The bypass graft attaches to the popliteal artery at the level of the distal femoral diametaphysis. Beyond the graft a nastomosis there is intermittent atheromatous plaque and calcifications resulting in up to 50 percent narrowing (greatest series 3 image 91). The trifurcation is atheromatous plaquing in calcifications of the trifurcation. The proximal peronea l artery, anterior and posterior tibial arteries are grossly normal in caliber however the posterior tibial artery is occluded approximately 14 cm cephalad to the ankle joint. In-line flow to the ankle in the anterior tibial artery and peroneal artery. Dorsalis pedis artery is patent. There is infiltration about the right lower leg and ankle. About the distal graft at the level of the mid and distal femoral shaft there is a collection measuri ng 7.2 x 5.4 x 12.6 cm suspicious for seroma. No definite high density components to suggest hematoma or extravasated contrast. On this marginal evaluation of the lower abdomen/pelvis, no pelvic mass, lymphadenopathy or ascites. Diffuse bladder wall thickening may be seen with cystitis. Esquivel catheter is seen within the bladder. Fat-containing left inguinal hernia. Prominent to mildly enlarged right inguinal lymph nodes. Small knee joint effusion. IMPRESSION: 1. Changes of bypass graft extending from the distal right common femoral artery to the popliteal ar laurence. There is a 12.6 cm fluid collection about the distal bypass graft, likely seroma. No high densi ty component to suggest extravasation or hematoma. 2. Atherosclerotic disease as described in detail above including occlusion of the majority of the r ight superficial femoral artery. There is also occlusion of the mid and distal distal right posterior tibialis artery without contrast opacification at the ankle. However there is in-line flow to the an kle and the anterior tibial/dorsalis pedis artery and peroneal artery. 3. Diffuse bladder wall thickening with Esquivel catheter, may be seen with cystitis. 4. Swelling about the right lower leg. Electronically signed by: Dilshad Rogers MD (04/02/2021 10:18 AM) YENY
--- NOTE | 2021-04-02 13:16 | RAD ---
Exam performed: CT scan of the head without contrast. Date of Service: 02/07/2022. Comparison: CT head without contrast from 03/31/2021 at the [facility] 04/01/2021. Clinical History: Altered mental status. Technique: Helical acquisitions are obtained from the foramen magnum to the vertex without intravenou s administration of contrast. Findings: Mild prominence of cortical sulci and ventricular system is noted consistent with mild age-related at rophy. There is ongoing area of low-attenuation in the right posterior parietal region which is seen on the prior CT scan and MRI. There is no new extra-axial fluid collection, intraparenchymal hemorrha ge, mass or acute infarct. Normal luong-white differentiation is maintained. There is no extra axial fluid collection, intraparenchymal hemorrhage or mass lesion. The visualized portions of the orbits, paranasal sinuses and the mastoid air cells appear clear. The calvarium is intact. Impression: 1. Area of low-attenuation in right posterior parietal lobe consistent with late subacute/early chron ic right MCA infarct remains stable. 2. No acute abnormality seen. PQRS Compliance Statement: One or more of the following individualized dose reduction techniques were utilized for this examinat ion: 1. Automated exposure control 2. Adjustment of the mA and/or kV according to patient size 3. Use of iterative reconstruction technique Electronically signed by: Swati Vaughn MD (04/02/2021 1:14 PM) [facility] [place]
[2021-04-02] MEDS: VANCOMYCIN 1.25 GM in IV NORMAL SALINE 250ML 250 ML IV SCH (18:32)
[2021-04-02] MEDS: CEFEPIME HCL IV Push 1 GM VIAL. IVP SCH (18:33)
[2021-04-02 18:48] LABS: VANC TR 7.1 mcg/mL (10.0-20.0)
[2021-04-02] MEDS: VANCOMYCIN PER PHARMACY MC PRN ×2 (19:22→19:29)
--- NOTE | 2021-04-02 19:24 | NUR ---
Pharmacy Vancomycin Dosing Note S:Consulted to monitor and dose vancomycin started 03/31/21. O:ELYSSA CONTRERAS is a 65 year old M with Sepsis . Height: 5 feet, 9 inches Weight: 83.7 kg [place] Body Weight: 70.70 Adjusted Body Weight: 75.90 Dosing Weight: Actual Other Antibiotics: LABS: Last BUN: 18 Last Creatinine: 1.0 Creatinine Clearance: 74 mL/min Last WBC: 14.0 Last Procalcitonin: Tmax (past 24 hours): 102.3 Microbiology: Abcess enterococcus Faecalis and Corynebacterium Stri[place] group I/O: 3170/2525 Drug Levels: Last Trough level: 7.1 on 04/02/21 at 1820 Last dose given 04/02/21 at 1832 Vancomycin Dosing: Loading Dose: 2000 mg x1 Dosing Weight: Actual Target Trough: 15-20 A: Based on trough of 7.1: P: 1. Change Vancomycin to 1000 mg IV q12h. 2. Follow up Trough level as needed. 3. Pharmacy will continue to monitor, follow and adjust therapy as needed. Germán Lassiter [facility], 04/02/21 [id number]
[2021-04-02] MEDS: ATORVASTATIN CALCIUM 40 MG TABLET. PO SCH (21:00)
[2021-04-02] MEDS: ENOXAPARIN 40 MG/0.4 ML SYRINGE. SQ SCH (21:30)
[2021-04-02] MEDS: ASPIRIN RECTAL 300 MG SUPP. PR SCH (21:30)
[2021-04-03] VITALS (8 sets, daily range): BP systolic 110–150; BP diastolic 55–79
[2021-04-03 04:58] LABS: BASO % 0 % (0-3); EOS % 0 % (0-3); HEMATOCRIT 26.9 % (39.0-53.0); HEMOGLOBIN 8.3 g/dL (13.0-17.5); LYMPH # 0.9 x10^3/uL (1.0-4.8); LYMPH % 8 % (24-48); MEAN CORPUSCULAR HEMOGLOBIN 24 pg (25-35); MEAN CORPUSCULAR HGB CONC 31 g/dL (31-37); MEAN CORPUSCULAR VOLUME 78 fL (79-100); MONO # 0.8 x10^3/uL (0.0-1.1); MONO % 6 % (0-9); NEUT # 10.4 x10^3/uL (1.8-7.7); NEUT % 86 % (31-73); PLATELET COUNT 131 x10^3/uL (140-400); RED BLOOD COUNT 3.44 x10^6/uL (4.30-5.70); RED CELL DISTRIBUTION WIDTH 19.5 % (11.5-14.5); WHITE BLOOD COUNT 12.1 x10^3/uL (4.0-11.0)
[2021-04-03 06:08] LABS: CALCIUM 7.5 mg/dL (8.5-10.1); CREATININE 0.8 mg/dL (0.7-1.3); POTASSIUM 3.6 mmol/L (3.5-5.1)
[2021-04-03] MEDS: VANCOMYCIN 1 GM in IV NORMAL SALINE 250ML 250 ML IV SCH ×2 (06:16→17:42)
[2021-04-03] MEDS: INSULIN LISPRO 300 UNITS/3 ML VIAL. SQ SCH ×3 (08:00→17:00)
[2021-04-03] MEDS: IV NORMAL SALINE 1000ML BAG 1,000 ML IV SCH ×3 (08:47→23:44)
[2021-04-03] MEDS: DEXTROSE 50% 25 GM / 50ML DISP.SYRIN. IV PRN (08:53)
--- NOTE | 2021-04-03 09:56 | PDOC ---
[employer] PROGRESS NOTE Date of Service DOS: DATE: 04/03/21 TIME: 09:55 Chief Complaint Chief Complaint Problem List: Right posterior parietal acute on subacute infarct Acute metabolic and possible infectious encephalopathy Hemodynamic instability requiring fluid bolus and central line placement SHAVON due to vasomotor nephropathy ATN Lactic acidosis Hypomagnesemia Acute on chronic CHF exacerbation Microcytic anemia due to chronic inflammatory disease History of CHF with LVEF of 25% Hx of DM Hx of DVT Hx of HTN Hx of CAD Admit to hospitalist service for further management Neurology consult Continue empiric IV antibiotics --> Vanc cefepime Duplex ultrasound of the right lower extremity -> normal but will check CTA given clinical evaluation today Wound care consult Vasopressors as needed to maintain maps greater than 55 Continue judicious IV fluid replacement in the context of CHF Strict I's/O Monitor urine output closely Trend LA R ISS and Accu-Cheks Lovenox for DVT prophylaxis Protonix GI prophylaxis ADA diet CODE STATUS DNR Discussed with RN and SW Disposition inpatient management as above, ICU care DPOA: Sister History of Present Illness History of Present Illness 04/02 Patient evaluated examined at bedside. Notably more altered today patient would not really open his eyes when I was evaluating him. Continue antibiotics. Evaluation of right lower extremity. Plan discussed with bedside RN. Checking CT head. 04/01 Patient evaluated examined at bedside. Seems a bit altered said he was feeling "kind of like shit." On nasal cannula oxygen. Continue empiric antibiotics for lung infection possible cellulitis. Right lower extremity is quite tense erythematous and somewhat painful for the patient. Extensive surgical intervention previously on this leg but will try to check imaging today to eval for any acute processes. Could probably transfer out of ICU if needed. Plan discussed with bedside RN. Vitals/I&O Vitals/I&O: Vital Signs Date Time Temp Pulse Resp B/P (MAP) Pulse Ox O2 Delivery O2 Flow Rate FiO2 04/03/21 04:00 98.4 80 12 111/55 Room Air 98.4 04/02/21 16:00 97 I & O 04/02/21 04/02/21 04/03/21 15:00 23:00 07:00 Intake Total 0 ml Output Total 850 ml 1475 ml 1000 ml Balance -850 ml -1475 ml -1000 ml Physical Exam General: Alert, Cooperative, mild distress Heart: Regular rate, Normal S1, Normal S2 Lungs: Clear, Other Abdomen: Normal bowel sounds, Soft, No tenderness Extremities: Other (RLE tense and erythematous) Labs Labs: Laboratory Tests Test 04/02/21 12:43 04/02/21 18:20 04/02/21 18:30 04/03/21 04:22 Glucose (Fingerstick) 80 mg/dL (70-99) 81 mg/dL (70-99) Vancomycin Level Trough 7.1 mcg/mL (10.0-20.0) Vancomycin Last Dose Date 04/01/21 Vancomycin Last Dose Time 1800 White Blood Count 12.1 x10^3/uL (4.0-11.0) Red Blood Count 3.44 x10^6/uL (4.30-5.70) Hemoglobin 8.3 g/dL (13.0-17.5) Hematocrit 26.9 % (39.0-53.0) Mean Corpuscular Volume 78 fL (79-100) Mean Corpuscular Hemoglobin 24 pg (25-35) Mean Corpuscular Hemoglobin Concent 31 g/dL (31-37) Red Cell Distribution Width 19.5 % (11.5-14.5) Platelet Count 131 x10^3/uL (140-400) Neutrophils (%) (Auto) 86 % (31-73) Lymphocytes (%) (Auto) 8 % (24-48) Monocytes (%) (Auto) 6 % (0-9) Eosinophils (%) (Auto) 0 % (0-3) Basophils (%) (Auto) 0 % (0-3) Neutrophils # (Auto) 10.4 x10^3/uL (1.8-7.7) Lymphocytes # (Auto) 0.9 x10^3/uL (1.0-4.8) Monocytes # (Auto) 0.8 x10^3/uL (0.0-1.1) Eosinophils # (Auto) 0.0 x10^3/uL (0.0-0.7) Basophils # (Auto) 0.0 x10^3/uL (0.0-0.2) Sodium Level 140 mmol/L (136-145) Potassium Level 3.6 mmol/L (3.5-5.1) Chloride Level 109 mmol/L (98-107) Carbon Dioxide Level 19 mmol/L (21-32) Anion Gap 12 (6-14) Blood Urea Nitrogen 13 mg/dL (8-26) Creatinine 0.8 mg/dL (0.7-1.3) Estimated GFR (Cockcroft-Gault) 97.0 Glucose Level 73 mg/dL (70-99) Calcium Level 7.5 mg/dL (8.5-10.1) Magnesium Level 2.0 mg/dL (1.8-2.4) Test 04/03/21 08:37 04/03/21 09:09 Glucose (Fingerstick) 69 mg/dL (70-99) 120 mg/dL (70-99) Assessment and Plan Assessmemt and Plan Problems Medical Problems: (1) AMS (altered mental status) Status: Acute (2) Pneumonia Status: Acute (3) Severe sepsis Status: Acute Comment Review of Relevant I have reviewed the following items rachel (where applicable) has been applied. Medications: Current Medications Medications (Trade) Dose Ordered Sig/Lizzeth Route PRN Reason Start Time Stop Time Status Last Admin Dose Admin Vancomycin HCl (Vancomycin Trough Level) 1 each 1X ONCE 04/02/21 17:30 04/02/21 17:31 DC 04/02/21 17:30 Vancomycin HCl 1 gm/Sodium Chloride 250 ml @ 250 mls/hr Q12H IV 04/03/21 06:00 04/03/21 06:16 Aspirin (Aspirin Rectal Supp) 300 mg DAILY NH 04/02/21 21:00 04/02/21 21:30 Justifications for Admission Other Justification Hypotension SP RENTERIA MD Apr 03, 2021 09:56
--- NOTE | 2021-04-03 11:36 | PDOC ---
PROGRESS NOTES DOS: DATE: 04/03/21 TIME: 11:36 Assessment Problems Medical Problems: (1) AMS (altered mental status) Status: Acute (2) Pneumonia Status: Acute (3) Severe sepsis Status: Acute Plan This patient is 65-year-old man with multiple medical problems with right assessment nurse ior parietal CVA, patient did not meet criteria for IV TPA., With encephalopathy, check for infectious, metabolic etiology, no meningeal signs, acute on chronic CHF, anemia, diabetes, patient had a CT scan brain done showing area of infarct right posterior parietal lobe stable, no evidence of new hemorrhage, changes noted for chronic small vessel ischemic disease, started on aspirin, check 2D echo, carotid Doppler, PT OT speech evaluation, check lipid profile, continue close monitoring, continue medical management plan discussed at length. Thank you for allowing me to take part in this patient's care. Please not hesitate to contact me with questions. Transcribed using dictation device. The dictation could contain irregularities inherent in the voice to text conversion software, which may not be detected during the document review process. Please contact our office in case of any c onfusion or for any clarification, as needed. Subjective Patient is more alert today. No acute events. Objective Vital Signs Date Time Temp Pulse Resp B/P (MAP) Pulse Ox O2 Delivery O2 Flow Rate FiO2 04/03/21 08:00 Room Air 04/03/21 08:00 98.9 80 24 150/73 98 98.9 Intake and Output 04/03/21 06:59 Intake Total 0 ml Output Total 3325 ml Balance -3325 ml Intake Oral 0 ml Output Urine Total 3325 ml PHYSICAL EXAM General: Well-developed, well-nourished, white male, in no acute distress HEENT: Normocephalic andatraumatic. Temporal arteriespulsatile and nontender. Neck: Supple without bruit, no meningismus Musculoskeletal: Stability:see neurologic. Gait exam:see neurologic. Tone:see neurologic.Strength:see neurologic. Neurological: Mental Status:orientation, memory, attention span/concentration, language, fund of knowledge: Alert, able to tell the name of the hospital but he knows he is in one, does not know the date, follows commands, names and repeats. Cranial Nerves:Pupils equal and reactive to light, extraocular movements areintact, visual lozoya are full to confrontation. Facial sensation is normal. There is no facial asymmetry. Vestibulo-ocular reflex is intact. Palate elevates and tongue protrudes in midline. All other cranial related problems are negative except as mentioned before.Reflexes:1+ and symmetric with flexor plantar responses (several toes amputated). Motor:4/5 strength with normal tone and bulk. Splints right shoulder. Coordination:Finger-nose finger and lbzv-ms-[id number] testing are normal. Rapid alternating movements and fine finger movements are intact. Gait:Not tested. Sensory:Stocking loss. Review of Relevant I have reviewed the following items rachel (where applicable) has been applied. Labs Laboratory Tests Test 04/01/21 14:26 04/02/21 05:05 04/02/21 08:32 04/02/21 12:43 Glucose (Fingerstick) 148 mg/dL (70-99) 79 mg/dL (70-99) 80 mg/dL (70-99) White Blood Count 14.0 x10^3/uL (4.0-11.0) Red Blood Count 3.58 x10^6/uL (4.30-5.70) Hemoglobin 8.9 g/dL (13.0-17.5) Hematocrit 27.8 % (39.0-53.0) Mean Corpuscular Volume 78 fL (79-100) Mean Corpuscular Hemoglobin 25 pg (25-35) Mean Corpuscular Hemoglobin Concent 32 g/dL (31-37) Red Cell Distribution Width 19.8 % (11.5-14.5) Platelet Count 129 x10^3/uL (140-400) Neutrophils (%) (Auto) 89 % (31-73) Lymphocytes (%) (Auto) 6 % (24-48) Monocytes (%) (Auto) 5 % (0-9) Eosinophils (%) (Auto) 0 % (0-3) Basophils (%) (Auto) 0 % (0-3) Neutrophils # (Auto) 12.4 x10^3/uL (1.8-7.7) Lymphocytes # (Auto) 0.8 x10^3/uL (1.0-4.8) Monocytes # (Auto) 0.7 x10^3/uL (0.0-1.1) Eosinophils # (Auto) 0.0 x10^3/uL (0.0-0.7) Basophils # (Auto) 0.0 x10^3/uL (0.0-0.2) Sodium Level 139 mmol/L (136-145) Potassium Level 4.0 mmol/L (3.5-5.1) Chloride Level 107 mmol/L (98-107) Carbon Dioxide Level 19 mmol/L (21-32) Anion Gap 13 (6-14) Blood Urea Nitrogen 18 mg/dL (8-26) Creatinine 1.0 mg/dL (0.7-1.3) Estimated GFR (Cockcroft-Gault) 75.0 Glucose Level 90 mg/dL (70-99) Calcium Level 7.2 mg/dL (8.5-10.1) Magnesium Level 2.0 mg/dL (1.8-2.4) Test 04/02/21 18:20 04/02/21 18:30 04/03/21 04:22 04/03/21 08:37 Vancomycin Level Trough 7.1 mcg/mL (10.0-20.0) Vancomycin Last Dose Date 04/01/21 Vancomycin Last Dose Time 1800 Glucose (Fingerstick) 81 mg/dL (70-99) 69 mg/dL (70-99) White Blood Count 12.1 x10^3/uL (4.0-11.0) Red Blood Count 3.44 x10^6/uL (4.30-5.70) Hemoglobin 8.3 g/dL (13.0-17.5) Hematocrit 26.9 % (39.0-53.0) Mean Corpuscular Volume 78 fL (79-100) Mean Corpuscular Hemoglobin 24 pg (25-35) Mean Corpuscular Hemoglobin Concent 31 g/dL (31-37) Red Cell Distribution Width 19.5 % (11.5-14.5) Platelet Count 131 x10^3/uL (140-400) Neutrophils (%) (Auto) 86 % (31-73) Lymphocytes (%) (Auto) 8 % (24-48) Monocytes (%) (Auto) 6 % (0-9) Eosinophils (%) (Auto) 0 % (0-3) Basophils (%) (Auto) 0 % (0-3) Neutrophils # (Auto) 10.4 x10^3/uL (1.8-7.7) Lymphocytes # (Auto) 0.9 x10^3/uL (1.0-4.8) Monocytes # (Auto) 0.8 x10^3/uL (0.0-1.1) Eosinophils # (Auto) 0.0 x10^3/uL (0.0-0.7) Basophils # (Auto) 0.0 x10^3/uL (0.0-0.2) Sodium Level 140 mmol/L (136-145) Potassium Level 3.6 mmol/L (3.5-5.1) Chloride Level 109 mmol/L (98-107) Carbon Dioxide Level 19 mmol/L (21-32) Anion Gap 12 (6-14) Blood Urea Nitrogen 13 mg/dL (8-26) Creatinine 0.8 mg/dL (0.7-1.3) Estimated GFR (Cockcroft-Gault) 97.0 Glucose Level 73 mg/dL (70-99) Calcium Level 7.5 mg/dL (8.5-10.1) Magnesium Level 2.0 mg/dL (1.8-2.4) Test 04/03/21 09:09 Glucose (Fingerstick) 120 mg/dL (70-99) Laboratory Tests Test 04/02/21 12:43 04/02/21 18:20 04/02/21 18:30 04/03/21 04:22 Glucose (Fingerstick) 80 mg/dL (70-99) 81 mg/dL (70-99) Vancomycin Level Trough 7.1 mcg/mL (10.0-20.0) Vancomycin Last Dose Date 04/01/21 Vancomycin Last Dose Time 1800 White Blood Count 12.1 x10^3/uL (4.0-11.0) Red Blood Count 3.44 x10^6/uL (4.30-5.70) Hemoglobin 8.3 g/dL (13.0-17.5) Hematocrit 26.9 % (39.0-53.0) Mean Corpuscular Volume 78 fL (79-100) Mean Corpuscular Hemoglobin 24 pg (25-35) Mean Corpuscular Hemoglobin Concent 31 g/dL (31-37) Red Cell Distribution Width 19.5 % (11.5-14.5) Platelet Count 131 x10^3/uL (140-400) Neutrophils (%) (Auto) 86 % (31-73) Lymphocytes (%) (Auto) 8 % (24-48) Monocytes (%) (Auto) 6 % (0-9) Eosinophils (%) (Auto) 0 % (0-3) Basophils (%) (Auto) 0 % (0-3) Neutrophils # (Auto) 10.4 x10^3/uL (1.8-7.7) Lymphocytes # (Auto) 0.9 x10^3/uL (1.0-4.8) Monocytes # (Auto) 0.8 x10^3/uL (0.0-1.1) Eosinophils # (Auto) 0.0 x10^3/uL (0.0-0.7) Basophils # (Auto) 0.0 x10^3/uL (0.0-0.2) Sodium Level 140 mmol/L (136-145) Potassium Level 3.6 mmol/L (3.5-5.1) Chloride Level 109 mmol/L (98-107) Carbon Dioxide Level 19 mmol/L (21-32) Anion Gap 12 (6-14) Blood Urea Nitrogen 13 mg/dL (8-26) Creatinine 0.8 mg/dL (0.7-1.3) Estimated GFR (Cockcroft-Gault) 97.0 Glucose Level 73 mg/dL (70-99) Calcium Level 7.5 mg/dL (8.5-10.1) Magnesium Level 2.0 mg/dL (1.8-2.4) Test 04/03/21 08:37 04/03/21 09:09 Glucose (Fingerstick) 69 mg/dL (70-99) 120 mg/dL (70-99) Microbiology 04/01/21 Gram Stain - Final, Resulted 04/01/21 Aerobic and Anaerobic Culture - Preliminary, Resulted Enterococcus Faecalis Corynebacterium Striatum Grp 03/31/21 Blood Culture - Preliminary, Resulted NO GROWTH AFTER 2 DAYS Medications Current Medications Sodium Chloride 1,000 ml @ 1,000 mls/hr Q1H IV Last administered on 03/31/21at 14:30; Start 03/31/21 at 14:30; Stop 03/31/21 at 15:29; Status DC Acetaminophen (Tylenol Supp) 975 mg 1X ONCE SC Last administered on 03/31/21at 14:30; Start 03/31/21 at 14:30; Stop 03/31/21 at 14:31; Status DC Piperacillin Sod/ Tazobactam Sod 3.375 gm/Sodium Chloride 50 ml @ 100 mls/hr 1X ONCE IV Last administered on 03/31/21at 15:07; Start 03/31/21 at 15:00; Stop 03/31/21 at 15:29; Status DC Sodium Chloride 1,000 ml @ 1,000 mls/hr 1X ONCE IV Last administered on 03/31/21at 15:03; Start 03/31/21 at 15:00; Stop 03/31/21 at 15:59; Status DC Magnesium Sulfate 50 ml @ 25 mls/hr 1X ONCE IV Last administered on 03/31/21at 15:52; Start 03/31/21 at 15:30; Stop 03/31/21 at 17:29; Status DC Lidocaine HCl (Lidocaine 1% 20ml Vial) 20 ml 1X ONCE INJ Last administered on 03/31/21at 16:00; Start 03/31/21 at 16:30; Stop 03/31/21 at 16:31; Status DC Sodium Chloride (NORMAL SALINE FLUSH for STERILE FIELD) 10 ml STK-MED ONCE .ROUTE ; Start 03/31/21 at 15:57; Stop 03/31/21 at 15:57; Status DC Lidocaine HCl (Lidocaine 2% 20ml Vial) 20 ml STK-MED ONCE .ROUTE ; Start 2 at 15:58; Stop 03/31/21 at 15:59; Status DC Norepinephrine Bitartrate 8 mg/ Dextrose 258 ml @ 14.126 mls/ hr 1X ONCE IV Last administered on 03/31/21at 16:41; Start 03/31/21 at 16:30; Stop 04/01/21 at 07:39; Status DC Vancomycin HCl (Vanco Per Pharmacy) 1 each PRN DAILY PRN MC SEE COMMENTS Last administered on 04/02/21at 19:29; Start 03/31/21 at 17:00 Cefepime HCl (Maxipime) 1 gm Q24H IVP Last administered on 04/02/21at 18:33; Start 03/31/21 at 18:00 Sennosides (Senna) 17.2 mg PRN BID PRN PO CONSTIPATION; Start 03/31/21 at 17:00 Docusate Sodium (Colace) 100 mg PRN DAILY PRN PO HARD STOOLS; Start 03/31/21 at 17:00 Ondansetron HCl (Zofran) 4 mg PRN Q6HRS PRN IVP NAUSEA/VOMITING, 1st CHOICE; Start 03/31/21 at 17:00 Insulin Human Lispro (HumaLOG) 0-7 UNITS TIDWMEALS SQ ; Start 04/01/21 at 08:00 Dextrose (Dextrose 50%-Water Syringe) 12.5 gm PRN Q15MIN PRN IV SEE COMMENTS Last administered on 04/03/21at 08:53; Start 03/31/21 at 17:00 Sodium Chloride 1,000 ml @ 100 mls/hr Q10H IV Last administered on 04/03/21at 08:47; Start 03/31/21 at 18:00 Acetaminophen (Tylenol) 650 mg PRN Q4HRS PRN PO TEMP OVER 100.4F OR MILD PAIN Last administered on 04/01/21at 10:41; Start 03/31/21 at 17:00 Lorazepam (Ativan) 0.5 mg PRN Q6HRS PRN PO ANXIETY / AGITATION Last administe red on 04/01/21at 14:02; Start 03/31/21 at 17:00 Lorazepam (Ativan Inj) 0.25 mg PRN Q4HRS PRN IV ANXIETY / AGITATION Last admini stered on 04/02/21at 01:33; Start 03/31/21 at 17:00 Enoxaparin Sodium (Lovenox 40mg Syringe) 40 mg Q24H SQ Last administered on 04/02/21at 21:30; Start 03/31/21 at 21:00 Prochlorperazine Edisylate (Compazine) 10 mg PRN Q6HRS PRN IV NAUSEA/VOMITING, 2nd CHOICE; Start 03/31/21 at 17:00 Diphenhydramine HCl (Benadryl) 25 mg PRN Q6HRS PRN IVP ITCHING Last administered on 04/01/21at 21:06; Start 03/31/21 at 17:00 Diphenhydramine HCl (Benadryl) 25 mg PRN Q6HRS PRN PO ITCHING; Start 03/31/21 at 17:00 Diphenhydramine HCl (Benadryl) 25 mg PRN QHS PRN PO INSOMNIA, 1st CHOICE; Start 03/31/21 at 17:00 Zolpidem Tartrate (Ambien) 2.5 mg PRN QHS PRN PO INSOMNIA, 2nd CHOICE; Start 03/31/21 at 17:00 Ondansetron HCl (Zofran) 4 mg PRN Q8HRS PRN IVP NAUSEA/VOMITING; Start 03/31/21 at 17:15; Stop 04/01/21 at 17:14; Status UNV Sodium Chloride 1,000 ml @ 125 mls/hr Q8H IV ; Start 03/31/21 at 17:15; Stop 04/01/21 at 17:14; Status UNV Potassium Chloride/Water 100 ml @ 100 mls/hr Q1H IV Last administered on 03/31/21at 22:00; Start 03/31/21 at 18:00; Stop 03/31/21 at 21:59; Status DC Vancomycin HCl 2 gm/Sodium Chloride 500 ml @ 250 mls/hr 1X ONCE IV Last administered on 03/31/21at 18:19; Start 03/31/21 at 17:30; Stop 03/31/21 at 19:29; Status DC Magnesium Sulfate 50 ml @ 25 mls/hr 1X ONCE IV Last administered on 03/31/21at 18:24; Start 03/31/21 at 17:30; Stop 03/31/21 at 19:29; Status DC Vancomycin HCl 1.25 gm/Sodium Chloride 250 ml @ 167 mls/hr Q24H IV Last administered on 04/02/21at 18:32; Start 04/01/21 at 18:00; Stop 04/02/21 at 21:00; Status DC Vancomycin HCl (Vancomycin Trough Level) 1 each 1X ONCE MC Last administered on 04/02/21at 17:30; Start 04/02/21 at 17:30; Stop 04/02/21 at 17:31; Status DC Norepinephrine Bitartrate 8 mg/ Dextrose 258 ml @ 16.37 mls/ hr CONT PRN IV PER PROTOCOL Last administered on 04/01/21at 09:34; Start 04/01/21 at 00:00 Info (FLU VACCINE SCREEN per RX) 1 each PRN DAILY PRN MC SEE COMMENTS; Start 04/01/21 at 01:39 Influenza Virus Vaccine Quadrival (Flulaval Quad Syringe) 0.5 ml ONCE ONCE VAX IM ; Start 04/01/21 at 21:00; Stop 04/01/21 at 21:01; Status DC Iohexol (Omnipaque 350 Mg/ml) 100 ml 1X ONCE IV ; Start 04/01/21 at 16:00; Stop 04/01/21 at 16:01; Status DC Info (CONTRAST GIVEN -- Rx MONITORING) 1 each PRN DAILY PRN MC SEE COMMENTS; Start 04/01/21 at 16:00; Stop 04/03/21 at 15:59 Acetaminophen (Tylenol Supp) 650 mg PRN Q6HRS PRN SC MILD PAIN / TEMP > 100.3'F Last administered on 04/01/21at 19:59; Start 04/01/21 at 20:00 Vancomycin HCl 1 gm/Sodium Chloride 250 ml @ 250 mls/hr Q12H IV Last administered on 04/03/21at 06:16; Start 04/03/21 at 06:00 Aspirin (Aspirin Rectal Supp) 300 mg DAILY SC Last administered on 04/02/21at 21:30; Start 04/02/21 at 21:00 Atorvastatin Calcium (Lipitor) 40 mg QHS PO ; Start 04/02/21 at 21:00 Active Scripts Active Duoneb 0.5-3(2.5) Mg/3 Ml (Albuterol/Ipratropium) 3 Ml Ampul.neb 3 Ml NEB BID Flomax (Tamsulosin Hcl) 0.4 Mg Cap.er.24h 0.4 Mg PO QHS Olanzapine 5 Mg Tablet 5 Mg PO BID Quetiapine Fumarate ER (Quetiapine Fumarate) 50 Mg Tab.er.24h 100 Mg PO QHS Culturelle (Lactobacillus Rhamnosus Gg) 1 Each Cap.sprink 1 Cap PO BID Thera-M Tablet (Multivits,Ca,Minerals/Iron/Fa) 1 Each Tablet 1 Tab PO DAILY Percocet 5-325 Mg Tablet (Oxycodone/Acetaminophen) 1 Each Tablet 1 Tab PO PRN Q4HRS PRN Fluoxetine Hcl 20 Mg Capsule 20 Mg PO DAILY Cefdinir 300 Mg Capsule 300 Mg PO BID Doxycycline Hyclate 100 Mg Tablet 100 Mg PO BID Metoprolol Succinate ( Xl ) (Metoprolol Succinate) 100 Mg Tab.er.24h 150 Mg PO DAILY 30 Days Amiodarone Hcl 200 Mg Tablet 200 Mg PO DAILY 30 Days Clopidogrel (Clopidogrel Bisulfate) 75 Mg Tablet 1 Tab PO DAILY Atorvastatin Calcium 40 Mg Tablet 40 Mg PO QHS 30 Days Reported Gabapentin 300 Mg Capsule 300 Mg PO TID Eliquis (Apixaban) 5 Mg Tablet 5 Mg PO BID Vitals/I & O Vital Sign - Last 24 Hours 04/02/21 04/02/21 04/02/21 04/02/21 12:00 16:00 20:20 20:20 Temp 99.8 100.9 98.9 99.8 100.9 98.9 Pulse 94 102 Resp 32 26 B/P (MAP) 133/65 92/63 Pulse Ox 98 97 O2 Delivery Room Air Room Air Room Air Room Air 04/03/21 04/03/21 04/03/21 04/03/21 00:00 04:00 08:00 08:00 Temp 97.9 98.4 98.9 97.9 98.4 98.9 Pulse 80 80 Resp 12 24 B/P (MAP) 111/55 150/73 Pulse Ox 98 O2 Delivery Room Air Room Air Room Air Intake and Output 04/02/21 04/02/21 04/03/21 14:59 22:59 06:59 Intake Total 0 ml Output Total 850 ml 1475 ml 1000 ml Balance -850 ml -1475 ml -1000 ml Justicifation of Admission Dx: Justifications for Admission: Justification of Admission Dx: Yes DE: Acute NSTEMI OZZY LEDESMA MD Apr 03, 2021 11:36
--- NOTE | 2021-04-03 12:28 | PDOC ---
[facility] PROGRESS NOTE Date of Service DOS: DATE: 04/03/21 TIME: 12:27 Chief Complaint Chief Complaint Problem List: Right posterior parietal acute on subacute infarct Acute metabolic and possible infectious encephalopathy Hemodynamic instability requiring fluid bolus and central line placement SHAVON due to vasomotor nephropathy ATN Lactic acidosis Hypomagnesemia Acute on chronic CHF exacerbation Microcytic anemia due to chronic inflammatory disease History of CHF with LVEF of 25% Hx of DM Hx of DVT Hx of HTN Hx of CAD Admit to hospitalist service for further management Neurology consult Continue empiric IV antibiotics --> Vanc cefepime Duplex ultrasound of the right lower extremity -> normal but will check CTA given clinical evaluation today Wound care consult Vasopressors as needed to maintain maps greater than 55 Continue judicious IV fluid replacement in the context of CHF Strict I's/O Monitor urine output closely Trend LA R ISS and Accu-Cheks Lovenox for DVT prophylaxis Protonix GI prophylaxis ADA diet CODE STATUS DNR Discussed with RN and SW Disposition inpatient management as above, ICU care DPOA: Sister History of Present Illness History of Present Illness 04/03 Patient evaluated examined at bedside. More alert today able to actually open his eyes to me. Continue antibiotics. Neuro consult. Vascular evaluation of right lower extremity. Discussed with bedside RN. 04/02 Patient evaluated examined at bedside. Notably more altered today patient would not really open his eyes when I was evaluating him. Continue antibiotics. Evaluation of right lower extremity. Plan discussed with bedside RN. Checking CT head. 04/01 Patient evaluated examined at bedside. Seems a bit altered said he was feeling "kind of like shit." On nasal cannula oxygen. Continue empiric antibiotics for lung infection possible cellulitis. Right lower extremity is quite tense erythematous and somewhat painful for the patient. Extensive surgical intervention previously on this leg but will try to check imaging today to eval for any acute processes. Could probably transfer out of ICU if needed. Plan discussed with bedside RN. Vitals/I&O Vitals/I&O: Vital Signs Date Time Temp Pulse Resp B/P (MAP) Pulse Ox O2 Delivery O2 Flow Rate FiO2 04/03/21 08:00 Room Air 04/03/21 08:00 98.9 80 24 150/73 98 98.9 I & O 04/02/21 04/02/21 04/03/21 15:00 23:00 07:00 Intake Total 0 ml Output Total 850 ml 1475 ml 1000 ml Balance -850 ml -1475 ml -1000 ml Physical Exam General: Alert, Cooperative, mild distress Heart: Regular rate, Normal S1, Normal S2 Lungs: Clear, Other Abdomen: Normal bowel sounds, Soft, No tenderness Extremities: Other (RLE tense and erythematous) Labs Labs: Laboratory Tests Test 04/02/21 12:43 04/02/21 18:20 04/02/21 18:30 04/03/21 04:22 Glucose (Fingerstick) 80 mg/dL (70-99) 81 mg/dL (70-99) Vancomycin Level Trough 7.1 mcg/mL (10.0-20.0) Vancomycin Last Dose Date 04/01/21 Vancomycin Last Dose Time 1800 White Blood Count 12.1 x10^3/uL (4.0-11.0) Red Blood Count 3.44 x10^6/uL (4.30-5.70) Hemoglobin 8.3 g/dL (13.0-17.5) Hematocrit 26.9 % (39.0-53.0) Mean Corpuscular Volume 78 fL (79-100) Mean Corpuscular Hemoglobin 24 pg (25-35) Mean Corpuscular Hemoglobin Concent 31 g/dL (31-37) Red Cell Distribution Width 19.5 % (11.5-14.5) Platelet Count 131 x10^3/uL (140-400) Neutrophils (%) (Auto) 86 % (31-73) Lymphocytes (%) (Auto) 8 % (24-48) Monocytes (%) (Auto) 6 % (0-9) Eosinophils (%) (Auto) 0 % (0-3) Basophils (%) (Auto) 0 % (0-3) Neutrophils # (Auto) 10.4 x10^3/uL (1.8-7.7) Lymphocytes # (Auto) 0.9 x10^3/uL (1.0-4.8) Monocytes # (Auto) 0.8 x10^3/uL (0.0-1.1) Eosinophils # (Auto) 0.0 x10^3/uL (0.0-0.7) Basophils # (Auto) 0.0 x10^3/uL (0.0-0.2) Sodium Level 140 mmol/L (136-145) Potassium Level 3.6 mmol/L (3.5-5.1) Chloride Level 109 mmol/L (98-107) Carbon Dioxide Level 19 mmol/L (21-32) Anion Gap 12 (6-14) Blood Urea Nitrogen 13 mg/dL (8-26) Creatinine 0.8 mg/dL (0.7-1.3) Estimated GFR (Cockcroft-Gault) 97.0 Glucose Level 73 mg/dL (70-99) Calcium Level 7.5 mg/dL (8.5-10.1) Magnesium Level 2.0 mg/dL (1.8-2.4) Test 04/03/21 08:37 04/03/21 09:09 Glucose (Fingerstick) 69 mg/dL (70-99) 120 mg/dL (70-99) Assessment and Plan Assessmemt and Plan Problems Medical Problems: (1) AMS (altered mental status) Status: Acute (2) Pneumonia Status: Acute (3) Severe sepsis Status: Acute Comment Review of Relevant I have reviewed the following items rachel (where applicable) has been applied. Medications: Current Medications Medications (Trade) Dose Ordered Sig/Lizzeth Route PRN Reason Start Time Stop Time Status Last Admin Dose Admin Vancomycin HCl (Vancomycin Trough Level) 1 each 1X ONCE MC 04/02/21 17:30 04/02/21 17:31 DC 04/02/21 17:30 Vancomycin HCl 1 gm/Sodium Chloride 250 ml @ 250 mls/hr Q12H IV 04/03/21 06:00 04/03/21 06:16 Aspirin (Aspirin Rectal Supp) 300 mg DAILY [place] 04/02/21 21:00 04/02/21 21:30 Justifications for Admission Other Justification Hypotension SP RENTERIA MD Apr 03, 2021 12:28
[2021-04-03] MEDS: CEFEPIME HCL IV Push 1 GM VIAL. IVP SCH (17:42)
[2021-04-03] MEDS: ATORVASTATIN CALCIUM 40 MG TABLET. PO SCH (21:00)
[2021-04-03] MEDS: ENOXAPARIN 40 MG/0.4 ML SYRINGE. SQ SCH (21:50)
--- NOTE | 2021-04-03 23:31 | NUR ---
addendum 04/03/21 0000 found pt with central line out, pt pulled out central line and was trying tp get out of bed wanting to go to mom's house, another RN ran to bedside to assist patient. Central line assessed intact. Sutures removed today by ALLYSON Felix [id number].
--- NOTE | 2021-04-03 23:36 | NUR ---
Bedside report given to RN receiving patient coming to room 660. Patient transferred to sixth floor going to room 660
[2021-04-03] MEDS: ASPIRIN RECTAL 300 MG SUPP. PR SCH (23:43)
[2021-04-04] MEDS: DEXTROSE 50% 25 GM / 50ML DISP.SYRIN. IV PRN (02:29)
[2021-04-04 03:36] VITALS: BP 109/59
--- NOTE | 2021-04-04 04:09 | RAD ---
EXAM: Bilateral carotid duplex with waveform analysis. CLINICAL HISTORY: Altered mental status, weakness, stroke, Neuro status TECHNIQUE: Longitudinal and transverse sonographic images of the bilateral carotid arteries was perfo rmed utilizing grayscale, color and spectral Doppler techniques. COMPARISON: None FINDINGS: Right Carotid: No visible stenosis or significant plaque. Left Carotid: No visible stenosis or significant plaque. Vertebrals: Antegrade flow bilaterally. Right: PSV CCA (cm/s): 57 PSV ICA (cm/s): 118 EDV ICA (cm/s): 51 PSV ECA (cm/s): 190 ICA/CCA Ratio: 2.0 Left: PSV CCA (cm/s): 73 PSV ICA (cm/s): 114 EDV ICA (cm/s): 41 PSV ECA (cm/s): 97 ICA/CCA Ratio: 1.8 IMPRESSION: ICA velocities consistent with less than 50 percent stenosis bilaterally Consensus Panel Gonzales-scale and Doppler US Criteria for Diagnosis of ICA Stenosis Degree of Stenosis (%) ICA PSV (Cm/sec) Plaque Estimate (%)* Normal <125 None <50 <125 <50 50-69 125-230 >50 >70 but < near occlusion >230 >50 Near occlusion High, low, or undetectable Visible Total occlusion Undetectable Visible, no detectable lumen *Plaque estimate (diameter reduction) with gonzales-scale and color Doppler US Degree of Stenosis (%) ICA/CCA PSV Ratio ICA EDV (cm/sec) Normal <2.0 <40 <50 <2.0 <40 50-69 2.0-4.0 40-100 >70 but < near occlusion >4.0 >100 Near occlusion Variable Variable Total occlusion Not applicable Not applicable Electronically signed by: Josue Cagle MD (04/04/2021 4:07 AM) [facility]
[2021-04-04] MEDS: VANCOMYCIN 1 GM in IV NORMAL SALINE 250ML 250 ML IV SCH (05:27)
[2021-04-04 07:51] VITALS: BP 119/64
[2021-04-04] MEDS: INSULIN LISPRO 300 UNITS/3 ML VIAL. SQ SCH ×3 (08:00→17:00)
[2021-04-04] MEDS: ASPIRIN RECTAL 300 MG SUPP. PR SCH (09:00)
[2021-04-04] MEDS: IV DEXTROSE 5% - 0.9 % NACL 1,000 ML IV SCH ×2 (09:16→20:02)
[2021-04-04 11:30] VITALS: BP 110/59
--- NOTE | 2021-04-04 12:34 | PDOC ---
[employer] PROGRESS NOTE Date of Service DOS: DATE: 04/04/21 TIME: 12:30 Chief Complaint Chief Complaint Problem List: Right posterior parietal acute on subacute infarct Acute metabolic and possible infectious encephalopathy Hemodynamic instability requiring fluid bolus and central line placement SHAVON due to vasomotor nephropathy ATN Lactic acidosis Hypomagnesemia Acute on chronic CHF exacerbation Microcytic anemia due to chronic inflammatory disease History of CHF with LVEF of 25% Hx of DM Hx of DVT Hx of HTN Hx of CAD Admit to hospitalist service for further management Neurology consult Continue empiric IV antibiotics --> Vanc cefepime Duplex ultrasound of the right lower extremity -> normal but will check CTA given clinical evaluation today Wound care consult Vasopressors as needed to maintain maps greater than 55 Continue judicious IV fluid replacement in the context of CHF Strict I's/O Monitor urine output closely Trend LA R ISS and Accu-Cheks Lovenox for DVT prophylaxis Protonix GI prophylaxis ADA diet CODE STATUS DNR Discussed with RN and SW Disposition inpatient management as above, ICU care DPOA: Sister History of Present Illness History of Present Illness 04/04/2021 No acute events overnight. Patient seen examined bedside. Patient pulled out central line. Abscess cultures grew out Enterococcus, corded bacterium and Pseudomonas. Will DC vancomycin for now continue with IV cefepime. Patient seen bedside with mittens and confused. Not following commands. Patient's chart, labs, images were reviewed and discussed with RN 04/03 Patient evaluated examined at bedside. More alert today able to actually open his eyes to me. Continue antibiotics. Neuro consult. Vascular evaluation of right lower extremity. Discussed with bedside RN. 04/02 Patient evaluated examined at bedside. Notably more altered today patient would not really open his eyes when I was evaluating him. Continue antibiotics. Evaluation of right lower extremity. Plan discussed with bedside RN. Checking CT head. 04/01 Patient evaluated examined at bedside. Seems a bit altered said he was feeling "kind of like shit." On nasal cannula oxygen. Continue empiric antibiotics for lung infection possible cellulitis. Right lower extremity is quite tense erythematous and somewhat painful for the patient. Extensive surgical intervention previously on this leg but will try to check imaging today to eval for any acute processes. Could probably transfer out of ICU if needed. Plan discussed with bedside RN. Vitals/I&O Vitals/I&O: Vital Signs Date Time Temp Pulse Resp B/P (MAP) Pulse Ox O2 Delivery O2 Flow Rate FiO2 04/04/21 07:51 98.4 78 18 119/64 (82) 100 Nasal Cannula 2.0 98.4 I & O 04/03/21 04/03/21 04/04/21 15:00 23:00 07:00 Intake Total 250 ml 1100 ml 0 ml Output Total 675 ml 575 ml 750 ml Balance -425 ml 525 ml -750 ml Physical Exam General: Alert, Cooperative, mild distress Heart: Regular rate, Normal S1, Normal S2 Lungs: Clear, Other Abdomen: Normal bowel sounds, Soft, No tenderness Extremities: Other (RLE tense and erythematous) Labs Labs: Laboratory Tests Test 04/03/21 13:11 04/03/21 16:50 04/03/21 22:34 04/04/21 02:22 Glucose (Fingerstick) 85 mg/dL (70-99) 125 mg/dL (70-99) 77 mg/dL (70-99) 68 mg/dL (70-99) Test 04/04/21 02:50 04/04/21 07:50 04/04/21 11:15 Glucose (Fingerstick) 96 mg/dL (70-99) 71 mg/dL (70-99) 76 mg/dL (70-99) Assessment and Plan Assessmemt and Plan Problems Medical Problems: (1) AMS (altered mental status) Status: Acute (2) Pneumonia Status: Acute (3) Severe sepsis Status: Acute Comment Review of Relevant I have reviewed the following items rachel (where applicable) has been applied. Medications: Current Medications Medications (Trade) Dose Ordered Sig/Lizzeth Route PRN Reason Start Time Stop Time Status Last Admin Dose Admin Dextrose/Sodium Chloride 1,000 ml @ 100 mls/hr Q10H IV 04/04/21 09:15 04/04/21 09:16 Justifications for Admission Other Justification Hypotension LAURO NGO MD Apr 04, 2021 12:34
--- NOTE | 2021-04-04 13:13 | NUR ---
SS following up with discharge planning. SS reviewed pt chart and discussed with pt RN. Pt is currently on room air. Pt on IV Cefepime. COVID19 negative. PT/OT recommended care home unit. Vascular consulted. NPO. Pt confused. SS received notification that pt had services with [facility], ; fax [phone]. SS will continue to follow for discharge planning.
[2021-04-04 14:59] VITALS: BP 121/67
--- NOTE | 2021-04-04 15:56 | PDOC ---
PROGRESS NOTES Date of Service DATE: 04/04/21 TIME: 15:53 Assessment Problems Medical Problems: (1) AMS (altered mental status) Status: Acute (2) Pneumonia Status: Acute (3) Severe sepsis Status: Acute 4. 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 This is superimposed on encephalopathy from underlying infection. The stroke likely contributes to the dysphagia. Plan He will work with all the therapies. He will likely need rehabilitation postacute care. He will need to continue to work with speech therapy to determine if he can tolerate a modified diet. I will order a fasting lipid profile to see if atorvastatin is doing a good job. I will continue with aspirin for stroke prevention via suppository until this can be taken orally. The carotid Doppler did not reveal hemodynamically significant stenosis. The echocardiogram is pending. Subjective I feel very tired. Objective Vital Signs Date Time Temp Pulse Resp B/P (MAP) Pulse Ox O2 Delivery O2 Flow Rate FiO2 04/04/21 14:59 98.8 86 16 121/67 (85) 100 Nasal Cannula 2.0 98.8 Intake and Output 04/04/21 07:00 Intake Total 1350 ml Output Total 2000 ml Balance -650 ml Intake Oral 0 ml IV Total 1350 ml Output Urine Total 2000 ml # Bowel Movements 1 PHYSICAL EXAM He was lying in his bed alert and awake. Speech was dysarthric but he did attempt to respond to questions. He was able to follow some commands. The eyes were conjugate and face appeared symmetric. He could hold up both arms in the air but definitely had weakness with resistance testing on the left. Sensation appeared intact to light touch. Attention waned very quickly. Review of Relevant I have reviewed the following items rachel (where applicable) has been applied. Labs Laboratory Tests Test 04/02/21 18:20 04/02/21 18:30 04/03/21 04:22 04/03/21 08:37 Vancomycin Level Trough 7.1 mcg/mL (10.0-20.0) Vancomycin Last Dose Date 04/01/21 Vancomycin Last Dose Time 1800 Glucose (Fingerstick) 81 mg/dL (70-99) 69 mg/dL (70-99) White Blood Count 12.1 x10^3/uL (4.0-11.0) Red Blood Count 3.44 x10^6/uL (4.30-5.70) Hemoglobin 8.3 g/dL (13.0-17.5) Hematocrit 26.9 % (39.0-53.0) Mean Corpuscular Volume 78 fL (79-100) Mean Corpuscular Hemoglobin 24 pg (25-35) Mean Corpuscular Hemoglobin Concent 31 g/dL (31-37) Red Cell Distribution Width 19.5 % (11.5-14.5) Platelet Count 131 x10^3/uL (140-400) Neutrophils (%) (Auto) 86 % (31-73) Lymphocytes (%) (Auto) 8 % (24-48) Monocytes (%) (Auto) 6 % (0-9) Eosinophils (%) (Auto) 0 % (0-3) Basophils (%) (Auto) 0 % (0-3) Neutrophils # (Auto) 10.4 x10^3/uL (1.8-7.7) Lymphocytes # (Auto) 0.9 x10^3/uL (1.0-4.8) Monocytes # (Auto) 0.8 x10^3/uL (0.0-1.1) Eosinophils # (Auto) 0.0 x10^3/uL (0.0-0.7) Basophils # (Auto) 0.0 x10^3/uL (0.0-0.2) Sodium Level 140 mmol/L (136-145) Potassium Level 3.6 mmol/L (3.5-5.1) Chloride Level 109 mmol/L (98-107) Carbon Dioxide Level 19 mmol/L (21-32) Anion Gap 12 (6-14) Blood Urea Nitrogen 13 mg/dL (8-26) Creatinine 0.8 mg/dL (0.7-1.3) Estimated GFR (Cockcroft-Gault) 97.0 Glucose Level 73 mg/dL (70-99) Calcium Level 7.5 mg/dL (8.5-10.1) Magnesium Level 2.0 mg/dL (1.8-2.4) Test 04/03/21 09:09 04/03/21 13:11 04/03/21 16:50 04/03/21 22:34 Glucose (Fingerstick) 120 mg/dL (70-99) 85 mg/dL (70-99) 125 mg/dL (70-99) 77 mg/dL (70-99) Test 04/04/21 02:22 04/04/21 02:50 04/04/21 07:50 04/04/21 11:15 Glucose (Fingerstick) 68 mg/dL (70-99) 96 mg/dL (70-99) 71 mg/dL (70-99) 76 mg/dL (70-99) Laboratory Tests Test 04/03/21 16:50 04/03/21 22:34 04/04/21 02:22 04/04/21 02:50 Glucose (Fingerstick) 125 mg/dL (70-99) 77 mg/dL (70-99) 68 mg/dL (70-99) 96 mg/dL (70-99) Test 04/04/21 07:50 04/04/21 11:15 Glucose (Fingerstick) 71 mg/dL (70-99) 76 mg/dL (70-99) Microbiology 04/01/21 Gram Stain - Final, Resulted 04/01/21 Aerobic and Anaerobic Culture - Preliminary, Resulted Enterococcus Faecalis Corynebacterium Striatum Grp Pseudomonas Aeruginosa 03/31/21 Blood Culture - Preliminary, Resulted NO GROWTH AFTER 4 DAYS Medications Current Medications Sodium Chloride 1,000 ml @ 1,000 mls/hr Q1H IV Last administered on 03/31/21at 14:30; Start 03/31/21 at 14:30; Stop 03/31/21 at 15:29; Status DC Acetaminophen (Tylenol Supp) 975 mg 1X ONCE GA Last administered on 03/31/21at 14:30; Start 03/31/21 at 14:30; Stop 03/31/21 at 14:31; Status DC Piperacillin Sod/ Tazobactam Sod 3.375 gm/Sodium Chloride 50 ml @ 100 mls/hr 1X ONCE IV Last administered on 03/31/21at 15:07; Start 03/31/21 at 15:00; Stop 03/31/21 at 15:29; Status DC Sodium Chloride 1,000 ml @ 1,000 mls/hr 1X ONCE IV Last administered on 03/31/21at 15:03; Start 03/31/21 at 15:00; Stop 03/31/21 at 15:59; Status DC Magnesium Sulfate 50 ml @ 25 mls/hr 1X ONCE IV Last administered on 03/31/21at 15:52; Start 03/31/21 at 15:30; Stop 03/31/21 at 17:29; Status DC Lidocaine HCl (Lidocaine 1% 20ml Vial) 20 ml 1X ONCE INJ Last administered on 03/31/21at 16:00; Start 03/31/21 at 16:30; Stop 03/31/21 at 16:31; Status DC Sodium Chloride (NORMAL SALINE FLUSH for STERILE FIELD) 10 ml STK-MED ONCE .ROUTE ; Start 03/31/21 at 15:57; Stop 03/31/21 at 15:57; Status DC Lidocaine HCl (Lidocaine 2% 20ml Vial) 20 ml STK-MED ONCE .ROUTE ; Start 03/31/21 at 15:58; Stop 03/31/21 at 15:59; Status DC Norepinephrine Bitartrate 8 mg/ Dextrose 258 ml @ 14.126 mls/ hr 1X ONCE IV Last administered on 03/31/21at 16:41; Start 03/31/21 at 16:30; Stop 04/01/21 at 07:39; Status DC Vancomycin HCl (Vanco Per Pharmacy) 1 each PRN DAILY PRN MC SEE COMMENTS Last administered on 04/02/21at 19:29; Start 03/31/21 at 17:00; Stop 04/04/21 at 12:32; Status DC Cefepime HCl (Maxipime) 1 gm Q24H IVP Last administered on 04/03/21at 17:42; Start 03/31/21 at 18:00 Sennosides (Senna) 17.2 mg PRN BID PRN PO CONSTIPATION; Start 03/31/21 at 17:00 Docusate Sodium (Colace) 100 mg PRN DAILY PRN PO HARD STOOLS; Start 03/31/21 at 17:00 Ondansetron HCl (Zofran) 4 mg PRN Q6HRS PRN IVP NAUSEA/VOMITING, 1st CHOICE; Start 03/31/21 at 17:00 Insulin Human Lispro (HumaLOG) 0-7 UNITS TIDWMEALS SQ ; Start 04/01/21 at 08:00 Dextrose (Dextrose 50%-Water Syringe) 12.5 gm PRN Q15MIN PRN IV SEE COMMENTS Last administered on 04/04/21at 02:29; Start 03/31/21 at 17:00 Sodium Chloride 1,000 ml @ 100 mls/hr Q10H IV Last administered on 04/03/21at 23:44; Start 03/31/21 at 18:00; Stop 04/04/21 at 09:14; Status DC Acetaminophen (Tylenol) 650 mg PRN Q4HRS PRN PO TEMP OVER 100.4F OR MILD PAIN Last administered on 04/01/21at 10:41; Start 03/31/21 at 17:00 Lorazepam (Ativan) 0.5 mg PRN Q6HRS PRN PO ANXIETY / AGITATION Last adm inistered on 04/01/21at 14:02; Start 03/31/21 at 17:00 Lorazepam (Ativan Inj) 0.25 mg PRN Q4HRS PRN IV ANXIETY / AGITATION Last administered on 04/04/21at 02:51; Start 03/31/21 at 17:00 Enoxaparin Sodium (Lovenox 40mg Syringe) 40 mg Q24H SQ Last administered on 04/03/21at 21:50; Start 03/31/21 at 21:00 Prochlorperazine Edisylate (Compazine) 10 mg PRN Q6HRS PRN IV NAUSEA/VOMITING, 2nd CHOICE; Start 03/31/21 at 17:00 Diphenhydramine HCl (Benadryl) 25 mg PRN Q6HRS PRN IVP ITCHING Last administered on 04/01/21at 21:06; Start 03/31/21 at 17:00 Diphenhydramine HCl (Benadryl) 25 mg PRN Q6HRS PRN PO ITCHING; Start 03/31/21 at 17:00 Diphenhydramine HCl (Benadryl) 25 mg PRN QHS PRN PO INSOMNIA, 1st CHOICE; Start 03/31/21 at 17:00 Zolpidem Tartrate (Ambien) 2.5 mg PRN QHS PRN PO INSOMNIA, 2nd CHOICE; Start 03/31/21 at 17:00 Ondansetron HCl (Zofran) 4 mg PRN Q8HRS PRN IVP NAUSEA/VOMITING; Start 03/31/21 at 17:15; Stop 04/01/21 at 17:14; Status UNV Sodium Chloride 1,000 ml @ 125 mls/hr Q8H IV ; Start 03/31/21 at 17:15; Stop 04/01/21 at 17:14; Status UNV Potassium Chloride/Water 100 ml @ 100 mls/hr Q1H IV Last administered on 03/31/21at 22:00; Start 03/31/21 at 18:00; Stop 03/31/21 at 21:59; Status DC Vancomycin HCl 2 gm/Sodium Chloride 500 ml @ 250 mls/hr 1X ONCE IV Last administered on 03/31/21at 18:19; Start 03/31/21 at 17:30; Stop 03/31/21 at 19:29; Status DC Magnesium Sulfate 50 ml @ 25 mls/hr 1X ONCE IV Last administered on 03/31/21at 18:24; Start 03/31/21 at 17:30; Stop 03/31/21 at 19:29; Status DC Vancomycin HCl 1.25 gm/Sodium Chloride 250 ml @ 167 mls/hr Q24H IV Last administered on 04/02/21at 18:32; Start 04/01/21 at 18:00; Stop 04/02/21 at 21:00; Status DC Vancomycin HCl (Vancomycin Trough Level) 1 each 1X ONCE MC Last administered on 04/02/21at 17:30; Start 04/02/21 at 17:30; Stop 04/02/21 at 17:31; Status DC Norepinephrine Bitartrate 8 mg/ Dextrose 258 ml @ 16.37 mls/ hr CONT PRN IV PER PROTOCOL Last administered on 04/01/21at 09:34; Start 04/01/21 at 00:00; Stop 04/04/21 at 12:31; Status DC Info (FLU VACCINE SCREEN per RX) 1 each PRN DAILY PRN MC SEE COMMENTS; Start 04/01/21 at 01:39 Influenza Virus Vaccine Quadrival (Flulaval Quad [id number] Syringe) 0.5 ml ONCE ONCE VAX IM ; Start 04/01/21 at 21:00; Stop 04/01/21 at 21:01; Status DC Iohexol (Omnipaque 350 Mg/ml) 100 ml 1X ONCE IV ; Start 04/01/21 at 16:00; Stop 04/01/21 at 16:01; Status DC Info (CONTRAST GIVEN -- Rx MONITORING) 1 each PRN DAILY PRN MC SEE COMMENTS; Start 04/01/21 at 16:00; Stop 04/03/21 at 15:59; Status DC Acetaminophen (Tylenol Supp) 650 mg PRN Q6HRS PRN GA MILD PAIN / TEMP > 100.3'F Last administered on 04/01/21at 19:59; Start 04/01/21 at 20:00 Vancomycin HCl 1 gm/Sodium Chloride 250 ml @ 250 mls/hr Q12H IV Last administered on 04/04/21at 05:27; Start 04/03/21 at 06:00; Stop 04/04/21 at 12:30; Status DC Aspirin (Aspirin Rectal Supp) 300 mg DAILY GA Last administered on 04/03/21at 23:43; Start 04/02/21 at 21:00 Atorvastatin Calcium (Lipitor) 40 mg QHS PO ; Start 04/02/21 at 21:00 Dextrose/Sodium Chloride 1,000 ml @ 100 mls/hr Q10H IV Last administered on 04/04/21at 09:16; Start 04/04/21 at 09:15 Active Scripts Active Duoneb 0.5-3(2.5) Mg/3 Ml (Albuterol/Ipratropium) 3 Ml Ampul.neb 3 Ml NEB BID Flomax (Tamsulosin Hcl) 0.4 Mg Cap.er.24h 0.4 Mg PO QHS Olanzapine 5 Mg Tablet 5 Mg PO BID Quetiapine Fumarate ER (Quetiapine Fumarate) 50 Mg Tab.er.24h 100 Mg PO QHS Culturelle (Lactobacillus Rhamnosus Gg) 1 Each Cap.sprink 1 Cap PO BID Thera-M Tablet (Multivits,Ca,Minerals/Iron/Fa) 1 Each Tablet 1 Tab PO DAILY Percocet 5-325 Mg Tablet (Oxycodone/Acetaminophen) 1 Each Tablet 1 Tab PO PRN Q4HRS PRN Fluoxetine Hcl 20 Mg Capsule 20 Mg PO DAILY Cefdinir 300 Mg Capsule 300 Mg PO BID Doxycycline Hyclate 100 Mg Tablet 100 Mg PO BID Metoprolol Succinate ( Xl ) (Metoprolol Succinate) 100 Mg Tab.er.24h 150 Mg PO DAILY 30 Days Amiodarone Hcl 200 Mg Tablet 200 Mg PO DAILY 30 Days Clopidogrel (Clopidogrel Bisulfate) 75 Mg Tablet 1 Tab PO DAILY Atorvastatin Calcium 40 Mg Tablet 40 Mg PO QHS 30 Days Reported Gabapentin 300 Mg Capsule 300 Mg PO TID Eliquis (Apixaban) 5 Mg Tablet 5 Mg PO BID Vitals/I & O Vital Sign - Last 24 Hours 04/03/21 04/03/21 04/03/21 04/03/21 16:00 20:20 20:20 22:00 Temp 98.0 98.0 98.0 98.0 Pulse 78 80 78 Resp 22 20 19 B/P (MAP) 143/68 132/72 (92) 110/60 (77) Pulse Ox 99 100 98 O2 Delivery Room Air Nasal Cannula Room Air Nasal Cannula O2 Flow Rate 2.0 2.0 04/03/21 04/03/21 04/04/21 04/04/21 23:20 23:30 03:36 07:51 Temp 97.7 98.4 97.7 98.4 Pulse 78 77 78 Resp 24 20 18 B/P (MAP) 127/79 (95) 109/59 (76) 119/64 (82) Pulse Ox 100 100 100 O2 Delivery Nasal Cannula Nasal Cannula Nasal Cannula Nasal Cannula O2 Flow Rate 2.0 2.0 2.0 2.0 04/04/21 04/04/21 11:30 14:59 Temp 98.0 98.8 98.0 98.8 Pulse 83 86 Resp 18 16 B/P (MAP) 110/59 (76) 121/67 (85) Pulse Ox 100 O2 Delivery Nasal Cannula Nasal Cannula O2 Flow Rate 2.0 2.0 Intake and Output 04/03/21 04/03/21 04/04/21 15:00 23:00 07:00 Intake Total 250 ml 1100 ml 0 ml Output Total 675 ml 575 ml 750 ml Balance -425 ml 525 ml -750 ml Justicifation of Admission Dx: Justifications for Admission: Justification of Admission Dx: Yes RI: Acute NSTEMI STACY KIM MD Apr 04, 2021 15:56
--- NOTE | 2021-04-04 18:25 | CARD ---
MR#: [id number] Date of Study: 04/04/2021 Ordering Physician: OZZY LEDESMA, Referring Physician: OZZY LEDESMA, Tech: Davina Fergusoncarine, [facility] APPROVED REPORT EXAM: Two-dimensional and M-mode echocardiogram with Doppler and color Doppler. Other Information Quality : AverageHR: 78bpm Technically limited study due to Restless patient INDICATION Congestive Heart Failure Non STEMI RISK FACTORS Hypertension Diabetes 2D DIMENSIONS Left Atrium(2D)3.8 (1.6-4.0cm)IVSd1.1 (0.7-1.1cm) Aortic Root(2D)3.1 (2.0-3.7cm)LVDd5.6 (3.9-5.9cm) LVOT Diameter2.0 (1.8-2.4cm)PWd1.0 (0.7-1.1cm) LVDs3.0 (2.5-4.0cm)FS (%) 46.6 % SV121.0 mlLVEF(%)77.3 (>50%) Aortic Valve AoV Peak Krzysztof.149.5cm/sAoV VTI28.8cm AO Peak GR.8.9mmHgLVOT Peak Krzysztof.123.6cm/s AO Mean GR.5mmHgAVA (VMAX)2.63cm2 Mitral Valve MV E Dnlwyxwq551.3cm/sMV E Peak Gr.6mmHg MV DECEL [id number] A Pqgwomos57.0cm/s MV E Mean Gr.2mmHgE/A Ratio2.9 Pulmonary Valve PV Peak Yabnveav29.2cm/s Tricuspid Valve TR P. Zpbjuski546tl/sRAP [id number] TR Peak Gr.[id number] LEFT VENTRICLE The left ventricle is normal size. There is borderline to mild concentric left ventricular hypertroph y. The systolic function is severely impaired. EF 30 to 35%. There is severe global hypokinesis of th e left ventricle. Septal motion consistent with conduction abnormality. Tissue Doppler imaging reveal s moderate left ventricular diastolic dysfunction. RIGHT VENTRICLE The right ventricle is mildly dilated. There is normal right ventricular wall thickness. RV systolic function is mildly reduced. ATRIA The left atrium is mildly dilated. The right atrium is mildly dilated. The interatrial septum is inta ct with no evidence for an atrial septal defect or patent foramen ovale as noted on 2-D or Doppler im aging. AORTIC VALVE The aortic valve is mildly thickened. Doppler and Color Flow revealed no significant aortic regurgita tion. There is no significant aortic valvular stenosis. Calculated aortic valve area is 2.4 cm2 with maximum pressure gradient of 9 mmHg and mean pressure gradient of 5 mmHg. MITRAL VALVE The mitral valve is normal in structure and function. There is no evidence of mitral valve prolapse. There is no mitral valve stenosis. Doppler and Color-flow revealed trace to mild mitral regurgitation . TRICUSPID VALVE The tricuspid valve is normal in structure and function. Doppler and Color Flow revealed mild to mode rate tricuspid regurgitation with an estimated PAP of 49 mmHg. There is no tricuspid valve stenosis. PULMONIC VALVE The pulmonic valve is not well visualized. Doppler and Color Flow revealed no pulmonic valvular regur gitation. There is no pulmonic valvular stenosis. GREAT VESSELS The aortic root is normal in size. The IVC is normal in size and collapses >50% with inspiration. PERICARDIAL EFFUSION There is no evidence of significant pericardial effusion. Critical Notification Critical Value: No <Conclusion> The systolic function is severely impaired. EF 30 to 35%. There is severe global hypokinesis of the left ventricle. Septal motion consistent with conduction ab normality. Doppler and Color Flow revealed mild to moderate tricuspid regurgitation with an estimated PAP of 49 mmHg. Technically difficult study. Signed by : Raulito Lam, Electronically Approved : 04/04/2021 18:25:21
[2021-04-04 19:20] VITALS: BP 154/70
[2021-04-04] MEDS: CEFEPIME HCL IV Push 1 GM VIAL. IVP SCH (19:54)
[2021-04-04] MEDS: ATORVASTATIN CALCIUM 40 MG TABLET. PO SCH (19:54)
[2021-04-04] MEDS: ENOXAPARIN 40 MG/0.4 ML SYRINGE. SQ SCH (20:06)
[2021-04-04 22:50] VITALS: BP 153/88
[2021-04-05] VITALS (7 sets, daily range): BP systolic 137–207; BP diastolic 63–93
[2021-04-05] MEDS: IV DEXTROSE 5% - 0.9 % NACL 1,000 ML IV SCH ×2 (05:29→17:30)
[2021-04-05 07:42] LABS: CHOLESTEROL/HDL RATIO 8.6
[2021-04-05] MEDS: INSULIN LISPRO 300 UNITS/3 ML VIAL. SQ SCH ×3 (08:00→17:00)
[2021-04-05] MEDS: ASPIRIN RECTAL 300 MG SUPP. PR SCH (08:56)
[2021-04-05] MEDS ORDERED: IOHEXOL 240 MG/ML 50ML VIAL. PO ONE (11:00)
[2021-04-05] MEDS ORDERED: IOHEXOL 300 MG/ML 100ML VIAL. IV ONE (11:00)
--- NOTE | 2021-04-05 11:10 | PDOC2 ---
CONSULT Date of Service Date of Service DATE: 04/05/21 TIME: 10:57 Reason for Consult Reason for Consult: Right leg erythema, post op History of Present Illness Reason for Visit: This is a pleasant 65-year-old male who underwent a right femoral to above-knee popliteal bypass in December 2020. We have been asked to evaluate him during his hospitalization due to fluid collection noted on imaging and erythema to his leg. He is here for altered mental status and work-up is currently undergoing. He has mild leukocytosis and mild fevers. He has a right groin wound that has been debrided and this seems to be healing with appropriate wound care. He had a carotid duplex that showed less than 50% stenosis bilaterally. He had an angiogram performed of the right leg that showed a patent bypass and a fluid collection around the distal anastomosis, likely seroma. The patient is confused and unable to contribute to history or exam this morning. Past Medical History Cardiovascular: AFIB, CAD, CHF, HTN, LA, Hyperlipidemia, Other (DVT, peripheral artery disease) Pulmonary: No pertinent hx, COPD CENTRAL NERVOUS SYSTEM: Other GI: Peptic Ulcer disease, Other (Diarrhea) Heme/Onc: No pertinent hx Hepatobiliary: No pertinent hx Psych: Anxiety Musculoskeletal: Osteoarthritis Rheumatologic: No pertinent hx Infectious disease: No pertinent hx Renal/: Other (Nephrolithiasis) Endocrine: Diabetes Past Surgical History Past Surgical History: CABG, Other (Coronary stent, bilateral rotator cuff) Family History Family History: Heart Disease Social History ALCOHOL: none Drugs: Crystal meth Lives: with Family Current Problem List Problem List Problems Medical Problems: (1) AMS (altered mental status) Status: Acute (2) Pneumonia Status: Acute (3) Severe sepsis Status: Acute Current Medications Current Medications Current Medications Sodium Chloride 1,000 ml @ 1,000 mls/hr Q1H IV Last administered on 03/31/21at 14:30; Start 03/31/21 at 14:30; Stop 03/31/21 at 15:29; Status DC Acetaminophen (Tylenol Supp) 975 mg 1X ONCE RI Last administered on 03/31/21at 14:30; Start 03/31/21 at 14:30; Stop 03/31/21 at 14:31; Status DC Piperacillin Sod/ Tazobactam Sod 3.375 gm/Sodium Chloride 50 ml @ 100 mls/hr 1X ONCE IV Last administered on 03/31/21at 15:07; Start 03/31/21 at 15:00; Stop 03/31/21 at 15:29; Status DC Sodium Chloride 1,000 ml @ 1,000 mls/hr 1X ONCE IV Last administered on 03/31/21at 15:03; Start 03/31/21 at 15:00; Stop 03/31/21 at 15:59; Status DC Magnesium Sulfate 50 ml @ 25 mls/hr 1X ONCE IV Last administered on 03/31/21at 15:52; Start 03/31/21 at 15:30; Stop 03/31/21 at 17:29; Status DC Lidocaine HCl (Lidocaine 1% 20ml Vial) 20 ml 1X ONCE INJ Last administered on 03/31/21at 16:00; Start 03/31/21 at 16:30; Stop 03/31/21 at 16:31; Status DC Sodium Chloride (NORMAL SALINE FLUSH for STERILE FIELD) 10 ml STK-MED ONCE .ROUTE ; Start 03/31/21 at 15:57; Stop 03/31/21 at 15:57; Status DC Lidocaine HCl (Lidocaine 2% 20ml Vial) 20 ml STK-MED ONCE .ROUTE ; Start 03/31/21 at 15:58; Stop 03/31/21 at 15:59; Status DC Norepinephrine Bitartrate 8 mg/ Dextrose 258 ml @ 14.126 mls/ hr 1X ONCE IV Last administered on 03/31/21at 16:41; Start 03/31/21 at 16:30; Stop 04/01/21 at 07:39; Status DC Vancomycin HCl (Vanco Per Pharmacy) 1 each PRN DAILY PRN MC SEE COMMENTS Last administered on 04/02/21at 19:29; Start 03/31/21 at 17:00; Stop 04/04/21 at 12:32; Status DC Cefepime HCl (Maxipime) 1 gm Q24H IVP Last administered on 04/04/21at 19:54; Start 03/31/21 at 18:00; Stop 04/05/21 at 10:43; Status DC Sennosides (Senna) 17.2 mg PRN BID PRN PO CONSTIPATION; Start 03/31/21 at 17:00 Docusate Sodium (Colace) 100 mg PRN DAILY PRN PO HARD STOOLS; Start 03/31/21 at 17:00 Ondansetron HCl (Zofran) 4 mg PRN Q6HRS PRN IVP NAUSEA/VOMITING, 1st CHOICE; Start 03/31/21 at 17:00 Insulin Human Lispro (HumaLOG) 0-7 UNITS TIDWMEALS SQ ; Start 04/01/21 at 08:00 Dextrose (Dextrose 50%-Water Syringe) 12.5 gm PRN Q15MIN PRN IV SEE COMMENTS Last administered on 04/04/21at 02:29; Start 03/31/21 at 17:00 Sodium Chloride 1,000 ml @ 100 mls/hr Q10H IV Last administered on 04/03/21at 23:44; Start 03/31/21 at 18:00; Stop 04/04/21 at 09:14; Status DC Acetaminophen (Tylenol) 650 mg PRN Q4HRS PRN PO TEMP OVER 100.4F OR MILD PAIN Last administered on 04/01/21at 10:41; Start 03/31/21 at 17:00 Lorazepam (Ativan) 0.5 mg PRN Q6HRS PRN PO ANXIETY / AGITATION Last administered on 04/01/21at 14:02; Start 03/31/21 at 17:00 Lorazepam (Ativan Inj) 0.25 mg PRN Q4HRS PRN IV ANXIETY / AGITATION Last administered on 04/04/21at 02:51; Start 03/31/21 at 17:00 Enoxaparin Sodium (Lovenox 40mg Syringe) 40 mg Q24H SQ Last administered on 04/04/21at 20:06; Start 03/31/21 at 21:00 Prochlorperazine Edisylate (Compazine) 10 mg PRN Q6HRS PRN IV NAUSEA/VOMITING, 2nd CHOICE; Start 03/31/21 at 17:00 Diphenhydramine HCl (Benadryl) 25 mg PRN Q6HRS PRN IVP ITCHING Last administered on 04/01/21at 21:06; Start 03/31/21 at 17:00 Diphenhydramine HCl (Benadryl) 25 mg PRN Q6HRS PRN PO ITCHING; Start 03/31/21 at 17:00 Diphenhydramine HCl (Benadryl) 25 mg PRN QHS PRN PO INSOMNIA, 1st CHOICE; Start 03/31/21 at 17:00 Zolpidem Tartrate (Ambien) 2.5 mg PRN QHS PRN PO INSOMNIA, 2nd CHOICE; Start 03/31/21 at 17:00 Ondansetron HCl (Zofran) 4 mg PRN Q8HRS PRN IVP NAUSEA/VOMITING; Start 03/31/21 at 17:15; Stop 04/01/21 at 17:14; Status UNV Sodium Chloride 1,000 ml @ 125 mls/hr Q8H IV ; Start 03/31/21 at 17:15; Stop 04/01/21 at 17:14; Status UNV Potassium Chloride/Water 100 ml @ 100 mls/hr Q1H IV Last administered on 03/31/21at 22:00; Start 03/31/21 at 18:00; Stop 03/31/21 at 21:59; Status DC Vancomycin HCl 2 gm/Sodium Chloride 500 ml @ 250 mls/hr 1X ONCE IV Last administered on 03/31/21at 18:19; Start 03/31/21 at 17:30; Stop 03/31/21 at 19:29; Status DC Magnesium Sulfate 50 ml @ 25 mls/hr 1X ONCE IV Last administered on 03/31/21at 18:24; Start 03/31/21 at 17:30; Stop 03/31/21 at 19:29; Status DC Vancomycin HCl 1.25 gm/Sodium Chloride 250 ml @ 167 mls/hr Q24H IV Last administered on 04/02/21at 18:32; Start 04/01/21 at 18:00; Stop 04/02/21 at 21:00; Status DC Vancomycin HCl (Vancomycin Trough Level) 1 each 1X ONCE MC Last administered on 04/02/21at 17:30; Start 04/02/21 at 17:30; Stop 04/02/21 at 17:31; Status DC Norepinephrine Bitartrate 8 mg/ Dextrose 258 ml @ 16.37 mls/ hr CONT PRN IV PER PROTOCOL Last administered on 04/01/21at 09:34; Start 04/01/21 at 00:00; Stop 04/04/21 at 12:31; Status DC Info (FLU VACCINE SCREEN per RX) 1 each PRN DAILY PRN MC SEE COMMENTS; Start 04/01/21 at 01:39 Influenza Virus Vaccine Quadrival (Flulaval Quad [id number] Syringe) 0.5 ml ONCE ONCE VAX IM ; Start 04/01/21 at 21:00; Stop 04/01/21 at 21:01; Status DC Iohexol (Omnipaque 350 Mg/ml) 100 ml 1X ONCE IV ; Start 04/01/21 at 16:00; Stop 04/01/21 at 16:01; Status DC Info (CONTRAST GIVEN -- Rx MONITORING) 1 each PRN DAILY PRN MC SEE COMMENTS; Start 04/01/21 at 16:00; Stop 04/03/21 at 15:59; Status DC Acetaminophen (Tylenol Supp) 650 mg PRN Q6HRS PRN RI MILD PAIN / TEMP > 100.3'F Last administered on 04/01/21at 19:59; Start 04/01/21 at 20:00 Vancomycin HCl 1 gm/Sodium Chloride 250 ml @ 250 mls/hr Q12H IV Last administered on 04/04/21at 05:27; Start 04/03/21 at 06:00; Stop 04/04/21 at 12:30; Status DC Aspirin (Aspirin Rectal Supp) 300 mg DAILY RI Last administered on 04/05/21at 08:56; Start 04/02/21 at 21:00 Atorvastatin Calcium (Lipitor) 40 mg QHS PO ; Start 04/02/21 at 21:00 Dextrose/Sodium Chloride 1,000 ml @ 100 mls/hr Q10H IV Last administered on 04/05/21at 05:29; Start 04/04/21 at 09:15 Meropenem 500 mg/ Sodium Chloride 50 ml @ 100 mls/hr Q8HRS IV ; Start 04/05/21 at 14:00 Iohexol (Omnipaque 240 Mg/ml) 50 ml 1X ONCE PO ; Start 04/05/21 at 11:00; Stop 04/05/21 at 11:01 Iohexol (Omnipaque 300 Mg/ml) 75 ml 1X ONCE IV ; Start 04/05/21 at 11:00; Stop 04/05/21 at 11:01 Active Scripts Active Duoneb 0.5-3(2.5) Mg/3 Ml (Albuterol/Ipratropium) 3 Ml Ampul.neb 3 Ml NEB BID Flomax (Tamsulosin Hcl) 0.4 Mg Cap.er.24h 0.4 Mg PO QHS Olanzapine 5 Mg Tablet 5 Mg PO BID Quetiapine Fumarate ER (Quetiapine Fumarate) 50 Mg Tab.er.24h 100 Mg PO QHS Culturelle (Lactobacillus Rhamnosus Gg) 1 Each Cap.sprink 1 Cap PO BID Thera-M Tablet (Multivits,Ca,Minerals/Iron/Fa) 1 Each Tablet 1 Tab PO DAILY Percocet 5-325 Mg Tablet (Oxycodone/Acetaminophen) 1 Each Tablet 1 Tab PO PRN Q4HRS PRN Fluoxetine Hcl 20 Mg Capsule 20 Mg PO DAILY Cefdinir 300 Mg Capsule 300 Mg PO BID Doxycycline Hyclate 100 Mg Tablet 100 Mg PO BID Metoprolol Succinate ( Xl ) (Metoprolol Succinate) 100 Mg Tab.er.24h 150 Mg PO DAILY 30 Days Amiodarone Hcl 200 Mg Tablet 200 Mg PO DAILY 30 Days Clopidogrel (Clopidogrel Bisulfate) 75 Mg Tablet 1 Tab PO DAILY Atorvastatin Calcium 40 Mg Tablet 40 Mg PO QHS 30 Days Reported Gabapentin 300 Mg Capsule 300 Mg PO TID Eliquis (Apixaban) 5 Mg Tablet 5 Mg PO BID Allergies Allergies: Coded Allergies: No Known Drug Allergies (Unverified , 02/27/17) ROS Review of System Unable to obtain, pt confused Physical Exam General: Other (Confused, nonverbal, awake, in no apparent distress. ) Extremities: Other (Left groin wound with some hyper granulation tissue and minimal surrounding fibrotic healing. There is no purulence, no probing, no undermining, no fluctuance. He has a large area of fluctuance medial to his distal incision on his thigh with moderate warmth and erythema. His incision is well-healed. He has a palpable DP pulse on the right foot. 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 No heel wounds) Vitals VITALS Vital Signs Date Time Temp Pulse Resp B/P (MAP) Pulse Ox O2 Delivery O2 Flow Rate FiO2 04/05/21 10:23 100.3 77 24 137/63 (87) 97 Nasal Cannula 2.0 100.3 Labs Labs Laboratory Tests Test 04/03/21 13:11 04/03/21 16:50 04/03/21 22:34 04/04/21 02:22 Glucose (Fingerstick) 85 mg/dL (70-99) 125 mg/dL (70-99) 77 mg/dL (70-99) 68 mg/dL (70-99) Test 04/04/21 02:50 04/04/21 07:50 04/04/21 11:15 04/04/21 16:30 Glucose (Fingerstick) 96 mg/dL (70-99) 71 mg/dL (70-99) 76 mg/dL (70-99) 103 mg/dL (70-99) Test 04/04/21 20:29 04/05/21 05:00 04/05/21 07:42 Glucose (Fingerstick) 110 mg/dL (70-99) 135 mg/dL (70-99) Triglycerides Level 148 mg/dL (0-150) Cholesterol Level 112 mg/dL (0-200) LDL Cholesterol, Calculated 69 mg/dL (0-100) VLDL Cholesterol, Calculated 30 mg/dL (0-40) Non-HDL Cholesterol Calculated 99 mg/dL (0-129) HDL Cholesterol 13 mg/dL (40-60) Cholesterol/HDL Ratio 8.6 Laboratory Tests Test 04/04/21 11:15 04/04/21 16:30 04/04/21 20:29 04/05/21 05:00 Glucose (Fingerstick) 76 mg/dL (70-99) 103 mg/dL (70-99) 110 mg/dL (70-99) Triglycerides Level 148 mg/dL (0-150) Cholesterol Level 112 mg/dL (0-200) LDL Cholesterol, Calculated 69 mg/dL (0-100) VLDL Cholesterol, Calculated 30 mg/dL (0-40) Non-HDL Cholesterol Calculated 99 mg/dL (0-129) HDL Cholesterol 13 mg/dL (40-60) Cholesterol/HDL Ratio 8.6 Test 04/05/21 07:42 Glucose (Fingerstick) 135 mg/dL (70-99) Images Images Carotid duplex: < 50% stenosis bilaterally AARO 04/02/21 1. Changes of bypass graft extending from the distal right common femoral artery to the popliteal artery. There is a 12.6 cm fluid collection about the distal bypass graft, likely seroma. No high density component to suggest extravasation or hematoma. 2. Atherosclerotic disease as described in detail above including occlusion of the majority of the right superficial femoral artery. There is also occlusion of the mid and distal distal right posterior tibialis artery without contrast o pacification at the ankle. However there is in-line flow to the ankle and the anterior tibial/dorsalis pedis artery and peroneal artery. Head CT 04/02: Area of low-attenuation in right posterior parietal lobe consistent with late subacute/early chronic right MCA infarct remains stable. MRI brain 04/01: 1. No acute intracranial finding. 2. Early chronic infarct involving the posterior right temporal lobe and right parietal lobe. 3. Tiny chronic infarcts involving the bilateral centrum semiovale. 4. Few white matter changes likely due to chronic small vessel disease. Assessment/Plan Assessment/Plan PAD s/p right fem to [place] pop bypass 01/09 Altered mental status CVA 65-year-old male with patent bypass and large fluid collection near distal anastomosis in thigh. This could likely be a seroma. The incision is well healed. Would rule out alternative sources for his leukocytosis and fevers prior to assuming this is an infectious fluid collection, there are no significant signs on exam to lead us to this conclusion. Will discuss with surgeon if further imaging or procedure indicated at this time. Continue abx. SAEID MARTIN Apr 05, 2021 11:09
--- NOTE | 2021-04-05 12:02 | CONS ---
DATE OF CONSULTATION: 04/05/2021 REQUESTING PHYSICIAN: Gregory Champion MD. REASON FOR CONSULTATION: Persistent fever. HISTORY OF PRESENT ILLNESS: This is a 65-year-old gentleman who came in through the ER for altered mental status. The patient had been undergoing workup for altered mental status including MRI of the head, which was unremarkable. The patient did not have any initially fever and now he has been running fever, hence consultation. The patient is on cefepime and vancomycin. The patient is somnolent, arousable, is not to his baseline as I know this gentleman from before. No nausea, vomiting or diarrhea noted. PAST MEDICAL HISTORY: Positive for diabetes mellitus, hypertension, hyperlipidemia, coronary artery disease, multiple toe amputations done, right leg bypass done with a wound onto the right groin, coronary artery bypass grafting done. SOCIAL HISTORY: Negative for smoking, alcohol or illicit drug use. The patient lives at home. ALLERGIES: No known drug allergies. CURRENT MEDICATIONS: Reviewed. REVIEW OF SYSTEMS: As in HPI. All other systems reviewed are negative. PHYSICAL EXAMINATION: GENERAL: Arousable, but not to his baseline, lethargic gentleman, not in any distress. VITAL SIGNS: Temperature 100.3 with a T-max 101.5, pulse 77, respirations 24, blood pressure 137/63. He is on 2 liters oxygen. HEENT: Both pupils are round and reacting. No conjunctival lesion, no lesion in the mouth. NECK: Supple, no JVP, no lymphadenopathy. LUNGS: Clear. HEART: S1, S2, regular. ABDOMEN: Soft, nontender, no organomegaly. EXTREMITIES: No edema or cyanosis. SKIN: His right groin wound is clean, superficial. He does have a patch of rash under the left foot of unclear significance. Rest of the skin exam is unremarkable. NEUROLOGIC: The patient is arousable, opens eyes, maybe nods, but not communicative or not interactive like his baseline. LABORATORY DATA: White count is 12,000, down from 16,000. BUN and creatinine are normal. Urinalysis unremarkable. COVID negative. Influenza negative. Blood cultures negative. His groin wound culture is showing Enterococcus, Corynebacterium and Pseudomonas. IMPRESSION: 1. Fever, etiology of fever is unclear. There are no obvious signs of infection, although this could be a drug fever or this could be occult infection that we need further workup to be done on. 2. Encephalopathy. 3. Leukocytosis. 4. Right groin wound, which is clean and superficial, do not see any infection there. 5. Coronary artery disease. 6. Peripheral arterial disease. RECOMMENDATIONS: Change antibiotics to meropenem. Supportive care. We will get a procalcitonin, get ammonia level and we will continue to follow. Thank you very much, Dr. Champion, for giving me opportunity to participate in this patient's care. LIDIA/JOCELIN AGUILLON: dJ TID: [id number]
--- NOTE | 2021-04-05 12:27 | NUR ---
SS following up with discharge planning. SS reviewed pt chart and discussed with pt RN. Pt is currently requiring oxygen at two liters nasal canula. COVID19 negative. Pt had temperature of 101 today. ID consulted. Pt on IV Meropenem. NPO. ST following. PT recommending acute rehabilitation. Not ready. SS will continue to follow for discharge planning.
[2021-04-05] MEDS: MEROPENEM 500 MG in IV NORMAL SALINE 50ML 50 ML IV SCH ×2 (13:06→20:05)
--- NOTE | 2021-04-05 13:07 | PDOC ---
[employer] PROGRESS NOTE Date of Service DOS: DATE: 04/05/21 TIME: 13:05 Chief Complaint Chief Complaint Problem List: Right posterior parietal acute on subacute infarct Acute metabolic and possible infectious encephalopathy Hemodynamic instability requiring fluid bolus and central line placement SHAVON due to vasomotor nephropathy ATN Lactic acidosis Hypomagnesemia Acute on chronic CHF exacerbation Microcytic anemia due to chronic inflammatory disease History of CHF with LVEF of 25% Hx of DM Hx of DVT Hx of HTN Hx of CAD Admit to hospitalist service for further management Neurology consult Continue empiric IV antibiotics --> Vanc cefepime Duplex ultrasound of the right lower extremity -> normal but will check CTA given clinical evaluation today Wound care consult Vasopressors as needed to maintain maps greater than 55 Continue judicious IV fluid replacement in the context of CHF Strict I's/O Monitor urine output closely Trend LA R ISS and Accu-Cheks Lovenox for DVT prophylaxis Protonix GI prophylaxis ADA diet CODE STATUS DNR Discussed with RN and SW Disposition inpatient management as above, ICU care DPOA: Sister History of Present Illness History of Present Illness 04/05/2021 No acute events overnight. Patient seen examined bedside. Sitting upright with PT. Mentation has improved. Erythema of his right lower extremity appears improved. Fluid collection does not seem to be a source of infection per vascular surgery. ID consulted for persistent fevers of 101.5. Persistent leukocytosis. Antibiotic switched to meropenem. Pending CT chest abdomen pelvis. Patient's chart, labs, images were reviewed and discussed with RN 04/04/2021 No acute events overnight. Patient seen examined bedside. Patient pulled out central line. Abscess cultures grew out Enterococcus, corded bacterium and Pseudomonas. Will DC vancomycin for now continue with IV cefepime. Patient seen bedside with mittens and confused. Not following commands. Patient's chart, labs, images were reviewed and discussed with RN 04/03 Patient evaluated examined at bedside. More alert today able to actually open his eyes to me. Continue antibiotics. Neuro consult. Vascular evaluation of right lower extremity. Discussed with bedside RN. 04/02 Patient evaluated examined at bedside. Notably more altered today patient would not really open his eyes when I was evaluating him. Continue antibiotics. Evaluation of right lower extremity. Plan discussed with bedside RN. Checking CT head. 04/01 Patient evaluated examined at bedside. Seems a bit altered said he was feeling "kind of like shit." On nasal cannula oxygen. Continue empiric antibiotics for lung infection possible cellulitis. Right lower extremity is quite tense erythematous and somewhat painful for the patient. Extensive surgical intervention previously on this leg but will try to check imaging today to eval for any acute processes. Could probably transfer out of ICU if needed. Plan discussed with bedside RN. Vitals/I&O Vitals/I&O: Vital Signs Date Time Temp Pulse Resp B/P (MAP) Pulse Ox O2 Delivery O2 Flow Rate FiO2 04/05/21 10:23 100.3 77 24 137/63 (87) 97 Nasal Cannula 2.0 100.3 I & O 04/04/21 04/04/21 04/05/21 15:00 23:00 07:00 Intake Total 1000 ml 1000 ml Output Total 900 ml 600 ml Balance 100 ml 400 ml Physical Exam General: Alert, Cooperative, Other (Confused, nonverbal, awake, in no apparent distress. ) Heart: Regular rate, Normal S1, Normal S2 Lungs: Clear, Other Abdomen: Normal bowel sounds, Soft, No tenderness Extremities: Other (Left groin wound with some hyper granulation tissue and minimal surrounding fibrotic healing. There is no purulence, no probing, no undermining, no fluctuance. He has a large area of fluctuance medial to his distal incision on his thigh with moderate warmth and erythema. His incision is well-healed. He has a palpable DP pulse on the right foot. 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 No heel wounds) Labs Labs: Laboratory Tests Test 04/04/21 16:30 04/04/21 20:29 04/05/21 05:00 04/05/21 07:42 Glucose (Fingerstick) 103 mg/dL (70-99) 110 mg/dL (70-99) 135 mg/dL (70-99) Triglycerides Level 148 mg/dL (0-150) Cholesterol Level 112 mg/dL (0-200) LDL Cholesterol, Calculated 69 mg/dL (0-100) VLDL Cholesterol, Calculated 30 mg/dL (0-40) Non-HDL Cholesterol Calculated 99 mg/dL (0-129) HDL Cholesterol 13 mg/dL (40-60) Cholesterol/HDL Ratio 8.6 Test 04/05/21 11:45 04/05/21 11:57 Ammonia 23 mcmol/L (11-34) Glucose (Fingerstick) 103 mg/dL (70-99) Assessment and Plan Assessmemt and Plan Problems Medical Problems: (1) AMS (altered mental status) Status: Acute (2) Pneumonia Status: Acute (3) Severe sepsis Status: Acute Comment Review of Relevant I have reviewed the following items rachel (where applicable) has been applied. Medications: Current Medications Medications (Trade) Dose Ordered Sig/Lizzeth Route PRN Reason Start Time Stop Time Status Last Admin Dose Admin Iohexol (Omnipaque 300 Mg/ml) 75 ml 1X ONCE IV 04/05/21 11:00 04/05/21 11:01 DC 04/05/21 11:26 Justifications for Admission Other Justification Hypotension LAURO NGO MD Apr 05, 2021 13:07
--- NOTE | 2021-04-05 13:08 | RAD ---
EXAM: Chest, abdomen and pelvis CT with intravenous contrast. HISTORY: Fever. TECHNIQUE: Computed tomographic images of the chest, abdomen and pelvis were obtained following the a dministration of intravenous contrast. Multiplanar reformatting was performed. *One or more of the following individualized dose reduction techniques were utilized for this examina tion: 1. Automated exposure control. 2. Adjustment of the mA and/or kV according to patient size. 3. Use of iterative reconstruction technique. COMPARISON: 12/15/2020. FINDINGS: Chest: There are small bilateral pleural effusions. There is bilateral posterior dependent and basilar compressive atelectasis and suspected superimposed interstitial infiltrate. There is also groundglass and nodular infiltrate within the right greater than left upper lobes. There is no pneum othorax. There is cardiomegaly. There is coronary artery calcification. There are median sternotomy c hanges. There are prominent mediastinal and hilar lymph nodes. These are likely reactive in etiology. There is degenerative change involving the thoracic spine. There is no acute or suspicious osseous f inding. Abdomen and pelvis: No focal hepatic lesion is seen. There is cholelithiasis. The pancreas, spleen an d right adrenal gland are unremarkable. There is a stable 1.4 cm left adrenal nodule. There is no shamika endicitis. There is no bowel obstruction. There is distal colonic diverticulosis. There is no convinc ing diverticulitis. There is stranding and trace fluid within the presacral space. There are multiple hypodense lesions within the right kidney, the largest of which measures 2.5 cm wi thin the lateral mid zone and is likely a cyst or adjacent cysts. There are few additional right maxwell l lesions with attenuation greater than simple fluid. There is a 7 mm nonobstructing stone within the lower pole of the right kidney. There is no hydronephrosis. There is mild left pelvicaliectasis. The re is a Esquivel catheter within the urinary bladder. There is gas within the bladder likely due to rece nt catheter placement. There is bladder wall thickening. There is heavily calcified atherosclerotic plaque throughout the aorta and iliac bifurcation. There a re multiple prominent retroperitoneal lymph nodes and there is stranding within the retroperitoneum. There is a small fat-containing left inguinal hernia. There is scarring and there are multiple vascul ar clips within the bilateral inguinal regions. There is a right femoral artery bypass. There are enl arged right inguinal lymph nodes measuring up to 2.4 cm. There is suggestion of a small hematoma or s eroma within the right inguinal subcutaneous fat. There are bilateral hydroceles. There is degenerati ve change throughout the lumbar spine. There is no acute osseous finding. IMPRESSION: 1. Small bilateral pleural effusions with bilateral basilar compressive atelectasis or interstitial i nfiltrate. This is decreased compared to the prior exam. 2. Right upper lobe predominant bilateral multifocal groundglass and nodular infiltrate. Follow-up to confirm resolution and exclude a persistent underlying lesion. 3. Distal colonic diverticulosis. 4. Urinary bladder wall thickening. Correlate for cystitis. There is a Esquivel catheter within the blad may and gas within the bladder likely due to recent catheter placement. 5. Multiple right renal cysts. There are few right renal lesions with attenuation greater than fluid, one of which corresponds with a lesion within the lateral mid zone concerning for a solid neoplasm. This can be better characterized with a renal protocol CT or MRI. 6. Right nephrolithiasis and left renal pelvicaliectasis, stable in appearance. 7. Stable small left adrenal nodule. 8. Small fat-containing left inguinal hernia and postoperative changes involving both inguinal region s. There is right inguinal lymphadenopathy which is increased compared to the prior exam. This may be reactive in etiology. 9. Cardiomegaly and coronary artery calcification. 10. Cholelithiasis. 11. Note is made that previously described heterogeneous liver parenchyma and trace perihepatic ascit es is not appreciated on the current exam. Electronically signed by: Patti Campbell MD (04/05/2021 1:05 PM) [id number]
[2021-04-05] MEDS: ACETAMINOPHEN 650 MG SUPP.RECT. PR PRN (17:25)
[2021-04-05] MEDS: ATORVASTATIN CALCIUM 40 MG TABLET. PO SCH (19:34)
[2021-04-05] MEDS: ENOXAPARIN 40 MG/0.4 ML SYRINGE. SQ SCH (20:04)
[2021-04-06 02:45] VITALS: BP 140/68
[2021-04-06] MEDS: ACETAMINOPHEN 650 MG SUPP.RECT. PR PRN (03:17)
[2021-04-06] MEDS: IV DEXTROSE 5% - 0.9 % NACL 1,000 ML IV SCH ×3 (04:56→21:15)
[2021-04-06] MEDS: MEROPENEM 500 MG in IV NORMAL SALINE 50ML 50 ML IV SCH ×3 (05:49→20:06)
[2021-04-06 07:00] VITALS: BP 104/50
[2021-04-06] MEDS: INSULIN LISPRO 300 UNITS/3 ML VIAL. SQ SCH ×3 (08:00→17:00)
--- NOTE | 2021-04-06 08:25 | PDOC ---
Infectious Disease Note Subjective Subjective Patient is more awake alert today able to communicate properly says he is feeling better ROS ROS No nausea vomiting diarrhea chest pain shortness of breath Vital Sign Vital Signs Vital Signs Date Time Temp Pulse Resp B/P (MAP) Pulse Ox O2 Delivery O2 Flow Rate FiO2 04/06/21 07:37 Nasal Cannula 2.0 04/06/21 02:45 101.8 88 40 140/68 (92) 100 101.8 Physical Exam PHYSICAL EXAM GENERAL: Arousable, but not to his baseline, lethargic gentleman, not in any distress. VITAL SIGNS: Temperature 100.3 with a T-max 101.5, pulse 77, respirations 24, blood pressure 137/63. He is on 2 liters oxygen. HEENT: Both pupils are round and reacting. No conjunctival lesion, no lesion in the mouth. NECK: Supple, no JVP, no lymphadenopathy. LUNGS: Clear. HEART: S1, S2, regular. ABDOMEN: Soft, nontender, no organomegaly. EXTREMITIES: No edema or cyanosis. SKIN: His right groin wound is clean, superficial. He does have a patch of rash under the left foot of unclear significance. Rest of the skin exam is unremarkable. Right thigh has swelling tenderness and probably fluid in it NEUROLOGIC: The patient is arousable, opens eyes, maybe nods, but not communicative or not interactive like his baseline. Labs Lab Laboratory Tests Test 04/05/21 11:45 04/05/21 11:57 04/05/21 16:58 04/05/21 20:36 Ammonia 23 mcmol/L (11-34) Glucose (Fingerstick) 103 mg/dL (70-99) 127 mg/dL (70-99) 123 mg/dL (70-99) Test 04/06/21 07:51 Glucose (Fingerstick) 113 mg/dL (70-99) Micro Microbiology 04/01/21 Gram Stain - Final, Resulted 04/01/21 Aerobic and Anaerobic Culture - Preliminary, Resulted Enterococcus Faecalis Corynebacterium Striatum Grp Pseudomonas Aeruginosa 03/31/21 Blood Culture - Final, Complete NO GROWTH AFTER 5 DAYS Objective Assessment IMPRESSION: 1. Fever, likely from the right thigh infected either hematoma or seroma 2. Encephalopathy. 3. Leukocytosis. 4. Right groin wound, which is clean and superficial, do not see any infection there. 5. Coronary artery disease. 6. Peripheral arterial disease. Plan Plan of Care Consult vascular surgery or IR, for right thigh fluid collection and fever likely infected hematoma or seroma Continue antibiotics add Zyvox YEISON MAXWELL MD Apr 06, 2021 08:25
[2021-04-06] MEDS: ASPIRIN RECTAL 300 MG SUPP. PR SCH (08:27)
[2021-04-06 11:00] VITALS: BP 121/66
--- NOTE | 2021-04-06 11:50 | PDOC ---
[facility] PROGRESS NOTE Date of Service DOS: DATE: 04/06/21 TIME: 11:48 Chief Complaint Chief Complaint Problem List: Right upper lobe bilateral infiltrates concerning for pneumonia, possible aspiration and possible gram-negative organisms Right posterior parietal acute on subacute infarct Acute metabolic and possible infectious encephalopathy Hemodynamic instability requiring fluid bolus and central line placement SHAVON due to vasomotor nephropathy ATN Lactic acidosis Hypomagnesemia Acute on chronic CHF exacerbation Microcytic anemia due to chronic inflammatory disease History of CHF with LVEF of 25% Hx of DM Hx of DVT Hx of HTN Hx of CAD Admit to hospitalist service for further management Neurology consult Continue empiric IV antibiotics --> Vanc cefepime Duplex ultrasound of the right lower extremity -> normal but will check CTA given clinical evaluation today Wound care consult Vasopressors as needed to maintain maps greater than 55 Continue judicious IV fluid replacement in the context of CHF Strict I's/O Monitor urine output closely Trend LA R ISS and Accu-Cheks Lovenox for DVT prophylaxis Protonix GI prophylaxis ADA diet CODE STATUS DNR Discussed with RN and SW Disposition inpatient management as above, ICU care DPOA: Sister History of Present Illness History of Present Illness 04/06/2021 No acute events overnight. Patient seen examined bedside. Working with physical therapy and improved mentation. Complaining of right thigh pain. Reexamination of his right thigh shows increased erythema and tightness in the proximal thigh region. Asking for vascular surgery to reevaluate and ordering ultrasound of the right lower extremity. Pulses are nonpalpable. Distal lower extremity is warm to touch. No pain or pallor in the foot region. Patient's chart, labs, images were reviewed and discussed with RN 04/05/2021 No acute events overnight. Patient seen examined bedside. Sitting upright with P T. Mentation has improved. Erythema of his right lower extremity appears improved. Fluid collection does not seem to be a source of infection per vascular surgery. ID consulted for persistent fevers of 101.5. Persistent leukocytosis. Antibiotic switched to meropenem. Pending CT chest abdomen pelvis. Patient's chart, labs, images were reviewed and discussed with RN 04/04/2021 No acute events overnight. Patient seen examined bedside. Patient pulled out central line. Abscess cultures grew out Enterococcus, corded bacterium and Pseudomonas. Will DC vancomycin for now continue with IV cefepime. Patient seen bedside with mittens and confused. Not following commands. Patient's chart, labs, images were reviewed and discussed with RN 04/03 Patient evaluated examined at bedside. More alert today able to actually open his eyes to me. Continue antibiotics. Neuro consult. Vascular evaluation of right lower extremity. Discussed with bedside RN. 04/02 Patient evaluated examined at bedside. Notably more altered today patient would not really open his eyes when I was evaluating him. Continue antibiotics. Evaluation of right lower extremity. Plan discussed with bedside RN. Checking CT head. 04/01 Patient evaluated examined at bedside. Seems a bit altered said he was feeling "kind of like shit." On nasal cannula oxygen. Continue empiric antibiotics for lung infection possible cellulitis. Right lower extremity is quite tense erythematous and somewhat painful for the patient. Extensive surgical intervention previously on this leg but will try to check imaging today to eval for any acute processes. Could probably transfer out of ICU if needed. Plan discussed with bedside RN. Vitals/I&O Vitals/I&O: Vital Signs Date Time Temp Pulse Resp B/P (MAP) Pulse Ox O2 Delivery O2 Flow Rate FiO2 04/06/21 11:00 98.6 76 20 121/66 (84) 97 Nasal Cannula 2.0 98.6 I & O 04/05/21 04/05/21 04/06/21 15:00 23:00 07:00 Intake Total 0 ml 50 ml 1100 ml Output Total 650 ml 650 ml Balance 0 ml -600 ml 450 ml Physical Exam Physical Exam: GENERAL: Arousable, but not to his baseline, lethargic gentleman, not in any distress. VITAL SIGNS: Temperature 100.3 with a T-max 101.5, pulse 77, respirations 24, blood pressure 137/63. He is on 2 liters oxygen. HEENT: Both pupils are round and reacting. No conjunctival lesion, no lesion in the mouth. NECK: Supple, no JVP, no lymphadenopathy. LUNGS: Clear. HEART: S1, S2, regular. ABDOMEN: Soft, nontender, no organomegaly. EXTREMITIES: No edema or cyanosis. SKIN: His right groin wound is clean, superficial. He does have a patch of rash under the left foot of unclear significance. Rest of the skin exam is unremarkable. Right thigh has swelling tenderness and probably fluid in it NEUROLOGIC: The patient is arousable, opens eyes, maybe nods, but not communicative or not interactive like his baseline. General: Alert, Cooperative, Other (Confused, nonverbal, awake, in no apparent distress. ) Heart: Regular rate, Normal S1, Normal S2 Lungs: Clear, Other Abdomen: Normal bowel sounds, Soft, No tenderness Extremities: Other (Left groin wound with some hyper granulation tissue and minimal surrounding fibrotic healing. There is no purulence, no probing, no undermining, no fluctuance. He has a large area of fluctuance medial to his distal incision on his thigh with moderate warmth and erythema. His incision is well-healed. He has a palpable DP pulse on the right foot. Toe amputation inci sions on both feet are well-healed. No heel wounds) Labs Labs: Laboratory Tests Test 04/05/21 11:57 04/05/21 16:58 04/05/21 20:36 04/06/21 07:51 Glucose (Fingerstick) 103 mg/dL (70-99) 127 mg/dL (70-99) 123 mg/dL (70-99) 113 mg/dL (70-99) Test 04/06/21 11:46 Glucose (Fingerstick) 128 mg/dL (70-99) Assessment and Plan Assessmemt and Plan Problems Medical Problems: (1) AMS (altered mental status) Status: Acute (2) Pneumonia Status: Acute (3) Severe sepsis Status: Acute Comment Review of Relevant I have reviewed the following items rachel (where applicable) has been applied. Medications: Current Medications Medications (Trade) Dose Ordered Sig/Lizzeth Route PRN Reason Start Time Stop Time Status Last Admin Dose Admin Meropenem 500 mg/ Sodium Chloride 50 ml @ 100 mls/hr Q8HRS IV 04/05/21 14:00 04/06/21 05:49 Linezolid/Dextrose 300 ml @ 300 mls/hr Q12HR IV 04/06/21 11:30 04/06/21 10:36 Justifications for Admission Other Justification Hypotension LAURO NGO MD Apr 06, 2021 11:50
--- NOTE | 2021-04-06 13:18 | NUR ---
SS following up with discharge planning. SS reviewed pt chart and discussed with pt RN. Pt is currently requiring oxygen at two liters nasal canula. COVID19 negative. Pt had temperature this morning. Pt on IV Meropenem and IV Zyvox. NPO. ST following. PT recommending nursing home unit. Not ready. SS will continue to follow for discharge planning.
--- NOTE | 2021-04-06 13:58 | PDOC ---
PROGRESS NOTES Date of Service DATE: 04/06/21 TIME: 13:51 Subjective Subjective Pt seen in room today. ID has concern for worsening redness and induration of right thigh fluid collection. Pt reports significant tenderness in thigh and groin on same side. He does not have any labs today. Objective Objective Vital Signs Date Time Temp Pulse Resp B/P (MAP) Pulse Ox O2 Delivery O2 Flow Rate FiO2 04/06/21 11:00 98.6 76 20 121/66 (84) 97 Nasal Cannula 2.0 98.6 Intake and Output 04/06/21 07:00 Intake Total 1150 ml Output Total 1300 ml Balance -150 ml Intake Oral 100 ml IV Total 1050 ml Output Urine Total 1300 ml Physical Exam Physical Exam Awake, alert, in no apparent distress right Groin wound unchanged from exam yesterday Right thigh with redness medially extending from knee to proximal thigh with mild induration and tenderness to palpation. Fluctuance noted consistent with known fluid collection. Right foot warm with good cap refill. Plan Plan of Care PAD s/p right fem to [place] pop bypass 01/09 Altered mental status CVA Leukocytosis 65-year-old male with patent bypass and large fluid collection near distal anastomosis in thigh. There is increased redness and induration on exam today. His fevers have continued and ID workup has showed no other source at this point . Will order US guided needle aspiration of fluid for culture with IR. Discussed with pt who agreed with plan. Continue abx. CBC in am. Discussed with Dr. Pacheco. Comment Review of Relevant I have reviewed the following items rachel (where applicable) has been applied. Labs Laboratory Tests Test 04/04/21 16:30 04/04/21 20:29 04/05/21 05:00 04/05/21 07:42 Glucose (Fingerstick) 103 mg/dL (70-99) 110 mg/dL (70-99) 135 mg/dL (70-99) Triglycerides Level 148 mg/dL (0-150) Cholesterol Level 112 mg/dL (0-200) LDL Cholesterol, Calculated 69 mg/dL (0-100) VLDL Cholesterol, Calculated 30 mg/dL (0-40) Non-HDL Cholesterol Calculated 99 mg/dL (0-129) HDL Cholesterol 13 mg/dL (40-60) Cholesterol/HDL Ratio 8.6 Procalcitonin 1.28 ng/mL (0.00-0.10) Test 04/05/21 11:45 04/05/21 11:57 04/05/21 16:58 04/05/21 20:36 Ammonia 23 mcmol/L (11-34) Glucose (Fingerstick) 103 mg/dL (70-99) 127 mg/dL (70-99) 123 mg/dL (70-99) Test 04/06/21 07:51 04/06/21 11:46 Glucose (Fingerstick) 113 mg/dL (70-99) 128 mg/dL (70-99) Laboratory Tests Test 04/05/21 16:58 04/05/21 20:36 04/06/21 07:51 04/06/21 11:46 Glucose (Fingerstick) 127 mg/dL (70-99) 123 mg/dL (70-99) 113 mg/dL (70-99) 128 mg/dL (70-99) Microbiology 04/01/21 Gram Stain - Final, Complete 04/01/21 Aerobic and Anaerobic Culture - Final, Complete Enterococcus Faecalis Corynebacterium Striatum Grp Pseudomonas Aeruginosa Pseudomonas Aeruginosa#2 Enterococcus Faecalis#2 03/31/21 Blood Culture - Final, Complete NO GROWTH AFTER 5 DAYS Medications Current Medications Sodium Chloride 1,000 ml @ 1,000 mls/hr Q1H IV Last administered on 03/31/21at 14:30; Start 03/31/21 at 14:30; Stop 03/31/21 at 15:29; Status DC Acetaminophen (Tylenol Supp) 975 mg 1X ONCE ID Last administered on 03/31/21at 14:30; Start 03/31/21 at 14:30; Stop 03/31/21 at 14:31; Status DC Piperacillin Sod/ Tazobactam Sod 3.375 gm/Sodium Chloride 50 ml @ 100 mls/hr 1X ONCE IV Last administered on 03/31/21at 15:07; Start 03/31/21 at 15:00; Stop 03/31/21 at 15:29; Status DC Sodium Chloride 1,000 ml @ 1,000 mls/hr 1X ONCE IV Last administered on 03/31/21at 15:03; Start 03/31/21 at 15:00; Stop 03/31/21 at 15:59; Status DC Magnesium Sulfate 50 ml @ 25 mls/hr 1X ONCE IV Last administered on 03/31/21at 15:52; Start 03/31/21 at 15:30; Stop 03/31/21 at 17:29; Status DC Lidocaine HCl (Lidocaine 1% 20ml Vial) 20 ml 1X ONCE INJ Last administered on 03/31/21at 16:00; Start 03/31/21 at 16:30; Stop 03/31/21 at 16:31; Status DC Sodium Chloride (NORMAL SALINE FLUSH for STERILE FIELD) 10 ml STK-MED ONCE .ROUTE ; Start 03/31/21 at 15:57; Stop 03/31/21 at 15:57; Status DC Lidocaine HCl (Lidocaine 2% 20ml Vial) 20 ml STK-MED ONCE .ROUTE ; Start 03/31/21 at 15:58; Stop 03/31/21 at 15:59; Status DC Norepinephrine Bitartrate 8 mg/ Dextrose 258 ml @ 14.126 mls/ hr 1X ONCE IV Last administered on 03/31/21at 16:41; Start 03/31/21 at 16:30; Stop 04/01/21 at 07:39; Status DC Vancomycin HCl (Vanco Per Pharmacy) 1 each PRN DAILY PRN MC SEE COMMENTS Last administered on 04/02/21at 19:29; Start 03/31/21 at 17:00; Stop 04/04/21 at 12:32; Status DC Cefepime HCl (Maxipime) 1 gm Q24H IVP Last administered on 04/04/21at 19:54; Start 03/31/21 at 18:00; Stop 04/05/21 at 10:43; Status DC Sennosides (Senna) 17.2 mg PRN BID PRN PO CONSTIPATION; Start 03/31/21 at 17:00 Docusate Sodium (Colace) 100 mg PRN DAILY PRN PO HARD STOOLS; Start 03/31/21 at 17:00 Ondansetron HCl (Zofran) 4 mg PRN Q6HRS PRN IVP NAUSEA/VOMITING, 1st CHOICE; Start 03/31/21 at 17:00 Insulin Human Lispro (HumaLOG) 0-7 UNITS TIDWMEALS SQ ; Start 04/01/21 at 08:00 Dextrose (Dextrose 50%-Water Syringe) 12.5 gm PRN Q15MIN PRN IV SEE COMMENTS Last administered on 04/04/21at 02:29; Start 03/31/21 at 17:00 Sodium Chloride 1,000 ml @ 100 mls/hr Q10H IV Last administered on 04/03/21at 23:44; Start 03/31/21 at 18:00; Stop 04/04/21 at 09:14; Status DC Acetaminophen (Tylenol) 650 mg PRN Q4HRS PRN PO TEMP OVER 100.4F OR MILD PAIN Last administered on 04/01/21at 10:41; Start 03/31/21 at 17:00 Lorazepam (Ativan) 0.5 mg PRN Q6HRS PRN PO ANXIETY / AGITATION Last administered on 04/01/21at 14:02; Start 03/31/21 at 17:00 Lorazepam (Ativan Inj) 0.25 mg PRN Q4HRS PRN IV ANXIETY / AGITATION Last administered on 04/04/21at 02:51; Start 03/31/21 at 17:00 Enoxaparin Sodium (Lovenox 40mg Syringe) 40 mg Q24H SQ Last administered on 04/05/21at 20:04; Start 03/31/21 at 21:00 Prochlorperazine Edisylate (Compazine) 10 mg PRN Q6HRS PRN IV NAUSEA/VOMITING, 2nd CHOICE; Start 03/31/21 at 17:00 Diphenhydramine HCl (Benadryl) 25 mg PRN Q6HRS PRN IVP ITCHING Last administered on 04/01/21at 21:06; Start 03/31/21 at 17:00 Diphenhydramine HCl (Benadryl) 25 mg PRN Q6HRS PRN PO ITCHING; Start 03/31/21 at 17:00 Diphenhydramine HCl (Benadryl) 25 mg PRN QHS PRN PO INSOMNIA, 1st CHOICE; Start 03/31/21 at 17:00 Zolpidem Tartrate (Ambien) 2.5 mg PRN QHS PRN PO INSOMNIA, 2nd CHOICE; Start 03/31/21 at 17:00 Ondansetron HCl (Zofran) 4 mg PRN Q8HRS PRN IVP NAUSEA/VOMITING; Start 03/31/21 at 17:15; Stop 04/01/21 at 17:14; Status UNV Sodium Chloride 1,000 ml @ 125 mls/hr Q8H IV ; Start 03/31/21 at 17:15; Stop 04/01/21 at 17:14; Status UNV Potassium Chloride/Water 100 ml @ 100 mls/hr Q1H IV Last administered on 03/31/21at 22:00; Start 03/31/21 at 18:00; Stop 03/31/21 at 21:59; Status DC Vancomycin HCl 2 gm/Sodium Chloride 500 ml @ 250 mls/hr 1X ONCE IV Last administered on 03/31/21at 18:19; Start 03/31/21 at 17:30; Stop 03/31/21 at 19:29; Status DC Magnesium Sulfate 50 ml @ 25 mls/hr 1X ONCE IV Last administered on 03/31/21at 18:24; Start 03/31/21 at 17:30; Stop 03/31/21 at 19:29; Status DC Vancomycin HCl 1.25 gm/Sodium Chloride 250 ml @ 167 mls/hr Q24H IV Last administered on 04/02/21at 18:32; Start 04/01/21 at 18:00; Stop 04/02/21 at 21:00; Status DC Vancomycin HCl (Vancomycin Trough Level) 1 each 1X ONCE MC Last administered on 04/02/21at 17:30; Start 04/02/21 at 17:30; Stop 04/02/21 at 17:31; Status DC Norepinephrine Bitartrate 8 mg/ Dextrose 258 ml @ 16.37 mls/ hr CONT PRN IV PER PROTOCOL Last administered on 04/01/21at 09:34; Start 04/01/21 at 00:00; Stop 04/04/21 at 12:31; Status DC Info (FLU VACCINE SCREEN per RX) 1 each PRN DAILY PRN MC SEE COMMENTS; Start 04/01/21 at 01:39; Stop 04/06/21 at 13:18; Status DC Influenza Virus Vaccine Quadrival (Flulaval Quad [id number] Syringe) 0.5 ml ONCE ONCE VAX IM ; Start 04/01/21 at 21:00; Stop 04/01/21 at 21:01; Status DC Iohexol (Omnipaque 350 Mg/ml) 100 ml 1X ONCE IV ; Start 04/01/21 at 16:00; Stop 04/01/21 at 16:01; Status DC Info (CONTRAST GIVEN -- Rx MONITORING) 1 each PRN DAILY PRN MC SEE COMMENTS; Start 04/01/21 at 16:00; Stop 04/03/21 at 15:59; Status DC Acetaminophen (Tylenol Supp) 650 mg PRN Q6HRS PRN ID MILD PAIN / TEMP > 100.3'F Last administered on 04/06/21at 03:17; Start 04/01/21 at 20:00 Vancomycin HCl 1 gm/Sodium Chloride 250 ml @ 250 mls/hr Q12H IV Last administered on 04/04/21at 05:27; Start 04/03/21 at 06:00; Stop 04/04/21 at 12:30; Status DC Aspirin (Aspirin Rectal Supp) 300 mg DAILY ID Last administered on 04/05/21at 08:56; Start 04/02/21 at 21:00 Atorvastatin Calcium (Lipitor) 40 mg QHS PO ; Start 04/02/21 at 21:00 Dextrose/Sodium Chloride 1,000 ml @ 100 mls/hr Q10H IV Last administered on 04/06/21at 11:15; Start 04/04/21 at 09:15 Meropenem 500 mg/ Sodium Chloride 50 ml @ 100 mls/hr Q8HRS IV Last administered on 04/06/21at 13:32; Start 04/05/21 at 14:00 Iohexol (Omnipaque 240 Mg/ml) 50 ml 1X ONCE PO ; Start 04/05/21 at 11:00; Stop 04/05/21 at 11:01; Status DC Iohexol (Omnipaque 300 Mg/ml) 75 ml 1X ONCE IV Last administered on 04/05/21at 11:26; Start 04/05/21 at 11:00; Stop 04/05/21 at 11:01; Status DC Linezolid/Dextrose 300 ml @ 300 mls/hr Q12HR IV Last administered on 04/06/21at 10:36; Start 04/06/21 at 11:30 Active Scripts Active Duoneb 0.5-3(2.5) Mg/3 Ml (Albuterol/Ipratropium) 3 Ml Ampul.neb 3 Ml NEB BID Flomax (Tamsulosin Hcl) 0.4 Mg Cap.er.24h 0.4 Mg PO QHS Olanzapine 5 Mg Tablet 5 Mg PO BID Quetiapine Fumarate ER (Quetiapine Fumarate) 50 Mg Tab.er.24h 100 Mg PO QHS Culturelle (Lactobacillus Rhamnosus Gg) 1 Each Cap.sprink 1 Cap PO BID Thera-M Tablet (Multivits,Ca,Minerals/Iron/Fa) 1 Each Tablet 1 Tab PO DAILY Percocet 5-325 Mg Tablet (Oxycodone/Acetaminophen) 1 Each Tablet 1 Tab PO PRN Q4HRS PRN Fluoxetine Hcl 20 Mg Capsule 20 Mg PO DAILY Cefdinir 300 Mg Capsule 300 Mg PO BID Doxycycline Hyclate 100 Mg Tablet 100 Mg PO BID Metoprolol Succinate ( Xl ) (Metoprolol Succinate) 100 Mg Tab.er.24h 150 Mg PO DAILY 30 Days Amiodarone Hcl 200 Mg Tablet 200 Mg PO DAILY 30 Days Clopidogrel (Clopidogrel Bisulfate) 75 Mg Tablet 1 Tab PO DAILY Atorvastatin Calcium 40 Mg Tablet 40 Mg PO QHS 30 Days Reported Gabapentin 300 Mg Capsule 300 Mg PO TID Eliquis (Apixaban) 5 Mg Tablet 5 Mg PO BID Vitals/I & O Vital Sign - Last 24 Hours 04/05/21 04/05/21 04/05/21 04/05/21 14:49 19:45 20:00 20:12 Temp 100.5 100.1 100.5 100.1 Pulse 76 83 87 Resp 18 36 B/P (MAP) 140/66 (90) 207/93 (131) 177/86 (116) Pulse Ox 99 99 O2 Delivery Nasal Cannula Nasal Cannula Nasal Cannula O2 Flow Rate 2.0 2.0 2.0 04/05/21 04/06/21 04/06/21 04/06/21 23:00 02:45 07:00 07:37 Temp 100.9 101.8 99.7 100.9 101.8 99.7 Pulse 88 88 70 Resp 32 40 18 B/P (MAP) 140/69 (92) 140/68 (92) 104/50 (68) Pulse Ox 100 100 96 O2 Delivery Nasal Cannula Nasal Cannula Nasal Cannula Nasal Cannula O2 Flow Rate 2.0 2.0 2.0 2.0 04/06/21 11:00 Temp 98.6 98.6 Pulse 76 Resp 20 B/P (MAP) 121/66 (84) Pulse Ox 97 O2 Delivery Nasal Cannula O2 Flow Rate 2.0 Intake and Output 04/05/21 04/05/21 04/06/21 15:00 23:00 07:00 Intake Total 0 ml 50 ml 1100 ml Output Total 650 ml 650 ml Balance 0 ml -600 ml 450 ml Justifications for Admission Other Justification Hypotension SAEID MARTIN Apr 06, 2021 13:58
[2021-04-06] MEDS: ONDANSETRON PF 4 MG/2 ML VIAL. IVP PRN (14:20)
[2021-04-06] MEDS: diphenhydrAMINE 50 MG/ML VIAL IVP PRN (14:25)
[2021-04-06 14:44] VITALS: BP 112/60
[2021-04-06] MEDS: ENOXAPARIN 40 MG/0.4 ML SYRINGE. SQ SCH (16:10)
--- NOTE | 2021-04-06 16:10 | NUR ---
hold luis angel for procedure tomorrow in IR Addendum: 04/06/21 at 1733 by GILLIAN HOOPER RN has been hollering to eat and drink water. have given thickened apple juice. ordered tray and refused food at this time. attempted to feed and refused.
--- NOTE | 2021-04-06 18:32 | NUR ---
spoke with sister on the phone to give her an update. explained they would like to perform an ultrasound on the right thigh. Richie Ruiz gave us phone consent and op permit obtained placed on the chart.
[2021-04-06 19:00] VITALS: BP 110/62
[2021-04-06] MEDS: ATORVASTATIN CALCIUM 40 MG TABLET. PO SCH (20:01)
[2021-04-06] MEDS: ACETAMINOPHEN 325 MG TABLET. PO PRN (20:01)
[2021-04-06 22:21] VITALS: BP 99/57
[2021-04-07] VITALS (7 sets, daily range): BP systolic 94–116; BP diastolic 51–67
[2021-04-07 04:31] LABS: BASO # 0.1 x10^3/uL (0.0-0.2); BASO % 1 % (0-3); EOS # 0.3 x10^3/uL (0.0-0.7); EOS % 3 % (0-3); HEMATOCRIT 26.7 % (39.0-53.0); HEMOGLOBIN 8.4 g/dL (13.0-17.5); LYMPH # 1.3 x10^3/uL (1.0-4.8); LYMPH % 12 % (24-48); MEAN CORPUSCULAR HEMOGLOBIN 25 pg (25-35); MEAN CORPUSCULAR HGB CONC 32 g/dL (31-37); MEAN CORPUSCULAR VOLUME 80 fL (79-100); MONO # 0.8 x10^3/uL (0.0-1.1); MONO % 7 % (0-9); NEUT # 8.4 x10^3/uL (1.8-7.7); NEUT % 78 % (31-73); PLATELET COUNT 318 x10^3/uL (140-400); RED BLOOD COUNT 3.35 x10^6/uL (4.30-5.70); RED CELL DISTRIBUTION WIDTH 19.7 % (11.5-14.5); WHITE BLOOD COUNT 10.9 x10^3/uL (4.0-11.0)
--- NOTE | 2021-04-07 04:45 | NUR ---
SEE STRIP IN CHART. PT HAD 32 BEATS OF VTACH. NOT SYMTOMATIC 180/85 STAT LABS ORDERED. PT SAID SHE FELT HER HEART GO FAST. GORDONN Addendum: 04/07/21 at 0450 by Niharika Gonsalves RN WRONG PATIENT
[2021-04-07] MEDS: MEROPENEM 500 MG in IV NORMAL SALINE 50ML 50 ML IV SCH ×3 (06:00→21:52)
[2021-04-07] MEDS: IV DEXTROSE 5% - 0.9 % NACL 1,000 ML IV SCH (06:23)
[2021-04-07] MEDS: INSULIN LISPRO 300 UNITS/3 ML VIAL. SQ SCH ×3 (08:00→17:00)
[2021-04-07] MEDS ORDERED: LIDOCAINE WITH 8.4% SOD BICARB 3 ML DISP.SYRIN. ONE (08:40)
[2021-04-07] MEDS ORDERED: LIDOCAINE WITH 8.4% SOD BICARB 3 ML DISP.SYRIN. IJ ONE (09:00)
[2021-04-07] MEDS: LACTOBACILLUS RHAMNOSUS GG 1 CAPSULE. PO SCH ×2 (09:31→21:53)
[2021-04-07] MEDS: ASPIRIN 325 MG TABLET PO SCH (09:31)
--- NOTE | 2021-04-07 10:06 | NUR ---
SS following up with discharge planning. SS reviewed pt chart and discussed with pt RN. Pt is currently on room air. PO diet now. PT/OT recommended senior care unit. COVID19 negative. Pt on IV Zyvox and IV Meropenem. Pt having aspiration of fluid collection today. SS met with pt in room and spoke with pt's sister via phone to discuss discharge planning and senior care unit. Pt undecided at this time. Pt's sister reported that pt lives with friends and they are unable to care for him at home and cannot be relied upon. Pt's sister requested referrals to [facility], ; fax [phone], and [facility], ; fax [phone]. Referrals phoned and faxed as requested. SS will continue to follow for discharge planning.
--- NOTE | 2021-04-07 10:42 | NUR ---
Patient went to IR for R thigh aspiration this morning, tolerated procedure well. R thigh dressing CDI. Patient only complaint is wanting ice water. Thickened water & thickened apple juice give to patient.
[2021-04-07 10:43] LABS: CALCIUM 7.2 mg/dL (8.5-10.1); CREATININE 0.8 mg/dL (0.7-1.3); MAGNESIUM 1.9 mg/dL (1.8-2.4); POTASSIUM 3.4 mmol/L (3.5-5.1)
--- NOTE | 2021-04-07 10:45 | RAD ---
Ultrasound-guided aspiration, probable seroma, medial right thigh adjacent to bypass graft INDICATION: Stroma, possibly infected, medial right thigh adjacent to pop bypass graft. Vascular surg cony service requests aspiration and culture. Consent: The procedure was explained in its entirety to the patient or the patients designated repres entative by a member of the treatment team, including a discussion of the risks, benefits and commonl y accepted alternatives to the procedure, as well as the expected consequences of no therapy whatsoev er. Discussion of the risks included, but was not limited to, those that are most frequent and thos e that are rare but possibly severe or life-threatening, as well as the possibility of unforeseen com plications. PROCEDURE: The medial thigh was prepped and draped using maximum sterile barrier technique. Ultrasoun d demonstrates a multiloculated appearing collection in the left thigh surrounding the patient's femo ropopliteal bypass graft. Reference images were saved medical record. The overlying skin was prepped and draped using sterile barrier technique. 1% lidocaine was administered for local anesthesia. Under direct ultrasound guidance a 5 Welsh sheathed needle was advanced into the collection. Approximatel y 100 cc of serous fluid was aspirated. This was sent for Gram stain and culture. Sterile dressings w ere applied. No immediate complications were identified. IMPRESSION: Ultrasound-guided aspiration, fluid collection surrounding right femoropopliteal bypass g raft. Electronically signed by: Luke Jackson MD (04/07/2021 10:43 AM) [id number]
--- NOTE | 2021-04-07 11:00 | NUR ---
Wound Care Wound Type/Assessment: Patient seen per wound care follow up for R groin incision from fem pop that has not healed from previous admissions, DFU to left 3rd toe, a DTI to the left buttock, and multiple DTIs to the right hand. See wound assessment for details. Pt is well known to wound care and is a clinic patient. R groin wound is s/p fem-pop procedure that also underwent an OR debridement in the past, and use of NPWT. R groin wound has improved since last assessment, appears smaller and is bright pink , hyper granulated with minimal slough, no more purulent drainage. R thigh remains swollen, but is less indurated from knee to buttock/lower abdomen; skin swelling has also begun to resolve. L 3rd toe has a small DFU that is purple and non-blanchable, but approximated. Pt combative, yelling out very loudly, cursing and shouting at staff. Purple discoloration noted to medial L foot, not consistent with a pressure point, likely r/t vascular status and has been there on all admissions and has remained unchanged. The right hand are DTIs as he had mits on and after removal they were noted on the right palm, right 1st, middle, and pinky fingers. They are purple and darkened red No other skin abnormalities noted on head to toe assessment. Treatment Recommendations/Plan: Cleanse all wounds and pat dry. R groin: Apply acticoat, ABD, tape. Change on Sunday. Acticoat left in room for next dressing changes. L 3rd toe, right palm, right pinky finger, right middle finger, right 1st finger right ring finger: Apply skin prep and leave FISHING HAND L buttock: skin prep and foam, if patient has mutliple loose stools, switch to calazime. Turn every 2 hours using wedge and a P-500 bed was ordered and new Rooke boots as they were not on patient nor in his room. Education provided: Pt still is confused at times but alert to self and place. Patient having difficulity comprehending new information. continued to reinforce on education and POC. Offloading surface/device: P-500, pillows, wedge, turn every 2 hours. Recommended Referrals/Tests: ID, vasc, neuro, and wound care all following this patient Discharge Recommendations for dressings: Dressing change instructions left in room. No other wounds noted. Spoke with RN regarding POC. Bed lowered and call light in reach. Wound care will follow up on 04/13/21
--- NOTE | 2021-04-07 11:37 | PDOC ---
Infectious Disease Note Subjective Subjective Patient is more awake alert today able to communicate properly says he is feeling better ROS ROS No nausea vomiting diarrhea fevers have improved Vital Sign Vital Signs Vital Signs Date Time Temp Pulse Resp B/P (MAP) Pulse Ox O2 Delivery O2 Flow Rate FiO2 04/07/21 10:27 97.5 56 18 102/59 (73) 100 Room Air 97.5 04/07/21 08:00 2.0 Physical Exam PHYSICAL EXAM GENERAL: Arousable, but not to his baseline, lethargic gentleman, not in any distress. VITAL SIGNS: Stable HEENT: Both pupils are round and reacting. No conjunctival lesion, no lesion in the mouth. NECK: Supple, no JVP, no lymphadenopathy. LUNGS: Clear. HEART: S1, S2, regular. ABDOMEN: Soft, nontender, no organomegaly. EXTREMITIES: No edema or cyanosis. SKIN: His right groin wound is clean, superficial. He does have a patch of rash under the left foot of unclear significance. Rest of the skin exam is unremarkable. Right thigh has swelling tenderness and probably fluid in it NEUROLOGIC: Awake alert able to communicate little bit better Labs Lab Laboratory Tests Test 04/06/21 11:46 04/06/21 17:29 04/06/21 19:30 04/07/21 03:10 Glucose (Fingerstick) 128 mg/dL (70-99) 120 mg/dL (70-99) 105 mg/dL (70-99) White Blood Count 10.9 x10^3/uL (4.0-11.0) Red Blood Count 3.35 x10^6/uL (4.30-5.70) Hemoglobin 8.4 g/dL (13.0-17.5) Hematocrit 26.7 % (39.0-53.0) Mean Corpuscular Volume 80 fL (79-100) Mean Corpuscular Hemoglobin 25 pg (25-35) Mean Corpuscular Hemoglobin Concent 32 g/dL (31-37) Red Cell Distribution Width 19.7 % (11.5-14.5) Platelet Count 318 x10^3/uL (140-400) Neutrophils (%) (Auto) 78 % (31-73) Lymphocytes (%) (Auto) 12 % (24-48) Monocytes (%) (Auto) 7 % (0-9) Eosinophils (%) (Auto) 3 % (0-3) Basophils (%) (Auto) 1 % (0-3) Neutrophils # (Auto) 8.4 x10^3/uL (1.8-7.7) Lymphocytes # (Auto) 1.3 x10^3/uL (1.0-4.8) Monocytes # (Auto) 0.8 x10^3/uL (0.0-1.1) Eosinophils # (Auto) 0.3 x10^3/uL (0.0-0.7) Basophils # (Auto) 0.1 x10^3/uL (0.0-0.2) Sodium Level 149 mmol/L (136-145) Potassium Level 3.4 mmol/L (3.5-5.1) Chloride Level 115 mmol/L (98-107) Carbon Dioxide Level 21 mmol/L (21-32) Anion Gap 13 (6-14) Blood Urea Nitrogen 9 mg/dL (8-26) Creatinine 0.8 mg/dL (0.7-1.3) Estimated GFR (Cockcroft-Gault) 97.0 Glucose Level 102 mg/dL (70-99) Calcium Level 7.2 mg/dL (8.5-10.1) Magnesium Level 1.9 mg/dL (1.8-2.4) Test 04/07/21 08:17 Glucose (Fingerstick) 86 mg/dL (70-99) Micro Microbiology 04/01/21 Gram Stain - Final, Resulted 04/01/21 Aerobic and Anaerobic Culture - Preliminary, Resulted Enterococcus Faecalis Corynebacterium Striatum Grp Pseudomonas Aeruginosa 03/31/21 Blood Culture - Final, Complete NO GROWTH AFTER 5 DAYS Objective Assessment IMPRESSION: 1. Fever, likely from the right thigh infected either hematoma or seroma 2. Encephalopathy. 3. Leukocytosis. 4. Right groin wound, which is clean and superficial, do not see any infection there. 5. Coronary artery disease. 6. Peripheral arterial disease. Plan Plan of Care Continue antibiotics Discussed with vascular surgery IR drainage done YEISON MAXWELL MD Apr 07, 2021 11:37
--- NOTE | 2021-04-07 12:01 | PDOC ---
PROGRESS NOTES Date of Service DATE: 04/07/21 TIME: 11:59 Subjective Subjective Patient somnolent, he does open eyes. Objective Objective Vital Signs Date Time Temp Pulse Resp B/P (MAP) Pulse Ox O2 Delivery O2 Flow Rate FiO2 04/07/21 10:27 97.5 56 18 102/59 (73) 100 Room Air 97.5 04/07/21 08:00 2.0 Intake and Output 04/07/21 07:00 Intake Total 3450 ml Output Total 600 ml Balance 2850 ml Intake Oral 700 ml IV Total 2750 ml Output Urine Total 600 ml # Bowel Movements 1 Physical Exam Physical Exam Awake, alert, in no apparent distress right Groin wound unchanged from exam yesterday Right thigh with redness medially extending from knee to proximal thigh with mild induration and tenderness to palpation, mildly improved, dressing intact from needle aspiration. Right foot warm with good cap refill. Assessment Assessment Problems Medical Problems: (1) AMS (altered mental status) Status: Acute (2) Pneumonia Status: Acute (3) Severe sepsis Status: Acute Plan Plan of Care PAD s/p right fem to [place] pop bypass 01/09 Altered mental status CVA Leukocytosis 65-year-old male with patent bypass and large fluid collection near distal anastomosis in thigh. Patient underwent US guided needle aspiration. Cultures pending. Leukocytosis and fevers improved. Discussed with ID, continue abx and monitor closely. Comment Review of Relevant I have reviewed the following items rachel (where applicable) has been applied. Labs Laboratory Tests Test 04/05/21 16:58 04/05/21 20:36 04/06/21 07:51 04/06/21 11:46 Glucose (Fingerstick) 127 mg/dL (70-99) 123 mg/dL (70-99) 113 mg/dL (70-99) 128 mg/dL (70-99) Test 04/06/21 17:29 04/06/21 19:30 04/07/21 03:10 04/07/21 08:17 Glucose (Fingerstick) 120 mg/dL (70-99) 105 mg/dL (70-99) 86 mg/dL (70-99) White Blood Count 10.9 x10^3/uL (4.0-11.0) Red Blood Count 3.35 x10^6/uL (4.30-5.70) Hemoglobin 8.4 g/dL (13.0-17.5) Hematocrit 26.7 % (39.0-53.0) Mean Corpuscular Volume 80 fL (79-100) Mean Corpuscular Hemoglobin 25 pg (25-35) Mean Corpuscular Hemoglobin Concent 32 g/dL (31-37) Red Cell Distribution Width 19.7 % (11.5-14.5) Platelet Count 318 x10^3/uL (140-400) Neutrophils (%) (Auto) 78 % (31-73) Lymphocytes (%) (Auto) 12 % (24-48) Monocytes (%) (Auto) 7 % (0-9) Eosinophils (%) (Auto) 3 % (0-3) Basophils (%) (Auto) 1 % (0-3) Neutrophils # (Auto) 8.4 x10^3/uL (1.8-7.7) Lymphocytes # (Auto) 1.3 x10^3/uL (1.0-4.8) Monocytes # (Auto) 0.8 x10^3/uL (0.0-1.1) Eosinophils # (Auto) 0.3 x10^3/uL (0.0-0.7) Basophils # (Auto) 0.1 x10^3/uL (0.0-0.2) Sodium Level 149 mmol/L (136-145) Potassium Level 3.4 mmol/L (3.5-5.1) Chloride Level 115 mmol/L (98-107) Carbon Dioxide Level 21 mmol/L (21-32) Anion Gap 13 (6-14) Blood Urea Nitrogen 9 mg/dL (8-26) Creatinine 0.8 mg/dL (0.7-1.3) Estimated GFR (Cockcroft-Gault) 97.0 Glucose Level 102 mg/dL (70-99) Calcium Level 7.2 mg/dL (8.5-10.1) Magnesium Level 1.9 mg/dL (1.8-2.4) Test 04/07/21 11:43 Glucose (Fingerstick) 115 mg/dL (70-99) Laboratory Tests Test 04/06/21 17:29 04/06/21 19:30 04/07/21 03:10 04/07/21 08:17 Glucose (Fingerstick) 120 mg/dL (70-99) 105 mg/dL (70-99) 86 mg/dL (70-99) White Blood Count 10.9 x10^3/uL (4.0-11.0) Red Blood Count 3.35 x10^6/uL (4.30-5.70) Hemoglobin 8.4 g/dL (13.0-17.5) Hematocrit 26.7 % (39.0-53.0) Mean Corpuscular Volume 80 fL (79-100) Mean Corpuscular Hemoglobin 25 pg (25-35) Mean Corpuscular Hemoglobin Concent 32 g/dL (31-37) Red Cell Distribution Width 19.7 % (11.5-14.5) Platelet Count 318 x10^3/uL (140-400) Neutrophils (%) (Auto) 78 % (31-73) Lymphocytes (%) (Auto) 12 % (24-48) Monocytes (%) (Auto) 7 % (0-9) Eosinophils (%) (Auto) 3 % (0-3) Basophils (%) (Auto) 1 % (0-3) Neutrophils # (Auto) 8.4 x10^3/uL (1.8-7.7) Lymphocytes # (Auto) 1.3 x10^3/uL (1.0-4.8) Monocytes # (Auto) 0.8 x10^3/uL (0.0-1.1) Eosinophils # (Auto) 0.3 x10^3/uL (0.0-0.7) Basophils # (Auto) 0.1 x10^3/uL (0.0-0.2) Sodium Level 149 mmol/L (136-145) Potassium Level 3.4 mmol/L (3.5-5.1) Chloride Level 115 mmol/L (98-107) Carbon Dioxide Level 21 mmol/L (21-32) Anion Gap 13 (6-14) Blood Urea Nitrogen 9 mg/dL (8-26) Creatinine 0.8 mg/dL (0.7-1.3) Estimated GFR (Cockcroft-Gault) 97.0 Glucose Level 102 mg/dL (70-99) Calcium Level 7.2 mg/dL (8.5-10.1) Magnesium Level 1.9 mg/dL (1.8-2.4) Test 2/17/22 11:43 Glucose (Fingerstick) 115 mg/dL (70-99) Microbiology 04/01/21 Gram Stain - Final, Complete 04/01/21 Aerobic and Anaerobic Culture - Final, Complete Enterococcus Faecalis Corynebacterium Striatum Grp Pseudomonas Aeruginosa Pseudomonas Aeruginosa#2 Enterococcus Faecalis#2 03/31/21 Blood Culture - Final, Complete NO GROWTH AFTER 5 DAYS Medications Current Medications Sodium Chloride 1,000 ml @ 1,000 mls/hr Q1H IV Last administered on 03/31/21at 14:30; Start 03/31/21 at 14:30; Stop 03/31/21 at 15:29; Status DC Acetaminophen (Tylenol Supp) 975 mg 1X ONCE GA Last administered on 03/31/21at 14:30; Start 03/31/21 at 14:30; Stop 03/31/21 at 14:31; Status DC Piperacillin Sod/ Tazobactam Sod 3.375 gm/Sodium Chloride 50 ml @ 100 mls/hr 1X ONCE IV Last administered on 03/31/21at 15:07; Start 03/31/21 at 15:00; Stop 03/31/21 at 15:29; Status DC Sodium Chloride 1,000 ml @ 1,000 mls/hr 1X ONCE IV Last administered on 03/31/21at 15:03; Start 03/31/21 at 15:00; Stop 03/31/21 at 15:59; Status DC Magnesium Sulfate 50 ml @ 25 mls/hr 1X ONCE IV Last administered on 03/31/21at 15:52; Start 03/31/21 at 15:30; Stop 03/31/21 at 17:29; Status DC Lidocaine HCl (Lidocaine 1% 20ml Vial) 20 ml 1X ONCE INJ Last administered on 03/31/21at 16:00; Start 03/31/21 at 16:30; Stop 03/31/21 at 16:31; Status DC Sodium Chloride (NORMAL SALINE FLUSH for STERILE FIELD) 10 ml STK-MED ONCE .ROUTE ; Start 03/31/21 at 15:57; Stop 03/31/21 at 15:57; Status DC Lidocaine HCl (Lidocaine 2% 20ml Vial) 20 ml STK-MED ONCE .ROUTE ; Start 03/31/21 at 15:58; Stop 03/31/21 at 15:59; Status DC Norepinephrine Bitartrate 8 mg/ Dextrose 258 ml @ 14.126 mls/ hr 1X ONCE IV Last administered on 03/31/21 16:41; Start 03/31/21 at 16:30; Stop 04/01/21 at 07:39; Status DC Vancomycin HCl (Vanco Per Pharmacy) 1 each PRN DAILY PRN MC SEE COMMENTS Last administered on 04/02/21 19:29; Start 03/31/21 at 17:00; Stop 04/04/21 at 12:32; Status DC Cefepime HCl (Maxipime) 1 gm Q24H IVP Last administered on 04/04/21at 19:54; Start 03/31/21 at 18:00; Stop 04/05/21 at 10:43; Status DC Sennosides (Senna) 17.2 mg PRN BID PRN PO CONSTIPATION; Start 03/31/21 at 17:00 Docusate Sodium (Colace) 100 mg PRN DAILY PRN PO HARD STOOLS; Start 03/31/21 at 17:00 Ondansetron HCl (Zofran) 4 mg PRN Q6HRS PRN IVP NAUSEA/VOMITING, 1st CHOICE Last administered on 04/06/21at 14:20; Start 03/31/21 at 17:00 Insulin Human Lispro (HumaLOG) 0-7 UNITS TIDWMEALS SQ ; Start 04/01/21 at 08:00 Dextrose (Dextrose 50%-Water Syringe) 12.5 gm PRN Q15MIN PRN IV SEE COMMENTS Last administered on 04/04/21at 02:29; Start 03/31/21 at 17:00 Sodium Chloride 1,000 ml @ 100 mls/hr Q10H IV Last administered on 04/03/21at 23:44; Start 03/31/21 at 18:00; Stop 04/04/21 at 09:14; Status DC Acetaminophen (Tylenol) 650 mg PRN Q4HRS PRN PO TEMP OVER 100.4F OR MILD PAIN Last administered on 04/06/21at 20:01; Start 03/31/21 at 17:00 Lorazepam (Ativan) 0.5 mg PRN Q6HRS PRN PO ANXIETY / AGITATION Last admini stered on 04/01/21at 14:02; Start 03/31/21 at 17:00 Lorazepam (Ativan Inj) 0.25 mg PRN Q4HRS PRN IV ANXIETY / AGITATION Last adm inistered on 04/04/21at 02:51; Start 03/31/21 at 17:00 Enoxaparin Sodium (Lovenox 40mg Syringe) 40 mg Q24H SQ Last administered on 04/05/21at 20:04; Start 03/31/21 at 21:00 Prochlorperazine Edisylate (Compazine) 10 mg PRN Q6HRS PRN IV NAUSEA/VOMITING, 2nd CHOICE; Start 03/31/21 at 17:00 Diphenhydramine HCl (Benadryl) 25 mg PRN Q6HRS PRN IVP ITCHING Last administered on 04/06/21at 14:25; Start 03/31/21 at 17:00 Diphenhydramine HCl (Benadryl) 25 mg PRN Q6HRS PRN PO ITCHING Last administered on 04/06/21at 20:00; Start 03/31/21 at 17:00 Diphenhydramine HCl (Benadryl) 25 mg PRN QHS PRN PO INSOMNIA, 1st CHOICE; Start 03/31/21 at 17:00 Zolpidem Tartrate (Ambien) 2.5 mg PRN QHS PRN PO INSOMNIA, 2nd CHOICE; Start 03/31/21 at 17:00 Ondansetron HCl (Zofran) 4 mg PRN Q8HRS PRN IVP NAUSEA/VOMITING; Start 03/31/21 at 17:15; Stop 04/01/21 at 17:14; Status UNV Sodium Chloride 1,000 ml @ 125 mls/hr Q8H IV ; Start 03/31/21 at 17:15; Stop 04/01/21 at 17:14; Status UNV Potassium Chloride/Water 100 ml @ 100 mls/hr Q1H IV Last administered on 03/31/21at 22:00; Start 03/31/21 at 18:00; Stop 03/31/21 at 21:59; Status DC Vancomycin HCl 2 gm/Sodium Chloride 500 ml @ 250 mls/hr 1X ONCE IV Last administered on 03/31/21at 18:19; Start 03/31/21 at 17:30; Stop 03/31/21 at 19:29; Status DC Magnesium Sulfate 50 ml @ 25 mls/hr 1X ONCE IV Last administered on 03/31/21at 18:24; Start 03/31/21 at 17:30; Stop 03/31/21 at 19:29; Status DC Vancomycin HCl 1.25 gm/Sodium Chloride 250 ml @ 167 mls/hr Q24H IV Last administered on 04/02/21at 18:32; Start 04/01/21 at 18:00; Stop 04/02/21 at 21:00; Status DC Vancomycin HCl (Vancomycin Trough Level) 1 each 1X ONCE MC Last administered on 04/02/21at 17:30; Start 04/02/21 at 17:30; Stop 04/02/21 at 17:31; Status DC Norepinephrine Bitartrate 8 mg/ Dextrose 258 ml @ 16.37 mls/ hr CONT PRN IV PER PROTOCOL Last administered on 04/01/21at 09:34; Start 04/01/21 at 00:00; St op 04/04/21 at 12:31; Status DC Info (FLU VACCINE SCREEN per RX) 1 each PRN DAILY PRN MC SEE COMMENTS; Start 04/01/21 at 01:39; Stop 04/06/21 at 13:18; Status DC Influenza Virus Vaccine Quadrival (Flulaval Quad 5330-1905 Syringe) 0.5 ml ONCE ONCE VAX IM ; Start 04/01/21 at 21:00; Stop 04/01/21 at 21:01; Status DC Iohexol (Omnipaque 350 Mg/ml) 100 ml 1X ONCE IV ; Start 04/01/21 at 16:00; Stop 04/01/21 at 16:01; Status DC Info (CONTRAST GIVEN -- Rx MONITORING) 1 each PRN DAILY PRN MC SEE COMMENTS; Start 04/01/21 at 16:00; Stop 04/03/21 at 15:59; Status DC Acetaminophen (Tylenol Supp) 650 mg PRN Q6HRS PRN GA MILD PAIN / TEMP > 100.3'F Last administered on 04/06/21at 03:17; Start 04/01/21 at 20:00 Vancomycin HCl 1 gm/Sodium Chloride 250 ml @ 250 mls/hr Q12H IV Last administered on 04/04/21at 05:27; Start 04/03/21 at 06:00; Stop 04/04/21 at 12:30; Status DC Aspirin (Aspirin Rectal Supp) 300 mg DAILY GA Last administered on 04/05/21at 08:56; Start 04/02/21 at 21:00; Stop 04/07/21 at 05:00; Status DC Atorvastatin Calcium (Lipitor) 40 mg QHS PO Last administered on 04/06/21at 20:01; Start 04/02/21 at 21:00 Dextrose/Sodium Chloride 1,000 ml @ 100 mls/hr Q10H IV Last administered on 04/07/21at 06:23; Start 04/04/21 at 09:15 Meropenem 500 mg/ Sodium Chloride 50 ml @ 100 mls/hr Q8HRS IV Last administered on 04/07/21at 06:00; Start 04/05/21 at 14:00 Iohexol (Omnipaque 240 Mg/ml) 50 ml 1X ONCE PO ; Start 04/05/21 at 11:00; Stop 04/05/21 at 11:01; Status DC Iohexol (Omnipaque 300 Mg/ml) 75 ml 1X ONCE IV Last administered on 04/05/21at 11:26; Start 04/05/21 at 11:00; Stop 04/05/21 at 11:01; Status DC Linezolid/Dextrose 300 ml @ 300 mls/hr Q12HR IV Last administered on 04/07/21at 09:34; Start 04/06/21 at 11:30 Aspirin (Sun Aspirin) 325 mg DAILYWBKFT PO Last administered on 04/07/21at 09:31; Start 04/07/21 at 08:00 Lactobacillus Rhamnosus (Culturelle) 1 cap BID PO Last administered on 04/07/21at 09:31; Start 04/07/21 at 09:00 Lidocaine HCl (Buffered Lidocaine 1%) 3 ml STK-MED ONCE .ROUTE ; Start 04/07/21 at 08:40; Stop 04/07/21 at 08:41; Status DC Lidocaine HCl (Buffered Lidocaine 1%) 3 ml 1X ONCE IJ Last administered on 04/07/21at 08:50; Start 04/07/21 at 09:00; Stop 04/07/21 at 09:01; Status DC Active Scripts Active Duoneb 0.5-3(2.5) Mg/3 Ml (Albuterol/Ipratropium) 3 Ml Ampul.neb 3 Ml NEB BID Flomax (Tamsulosin Hcl) 0.4 Mg Cap.er.24h 0.4 Mg PO QHS Olanzapine 5 Mg Tablet 5 Mg PO BID Quetiapine Fumarate ER (Quetiapine Fumarate) 50 Mg Tab.er.24h 100 Mg PO QHS Culturelle (Lactobacillus Rhamnosus Gg) 1 Each Cap.sprink 1 Cap PO BID Thera-M Tablet (Multivits,Ca,Minerals/Iron/Fa) 1 Each Tablet 1 Tab PO DAILY Percocet 5-325 Mg Tablet (Oxycodone/Acetaminophen) 1 Each Tablet 1 Tab PO PRN Q4HRS PRN Fluoxetine Hcl 20 Mg Capsule 20 Mg PO DAILY Cefdinir 300 Mg Capsule 300 Mg PO BID Doxycycline Hyclate 100 Mg Tablet 100 Mg PO BID Metoprolol Succinate ( Xl ) (Metoprolol Succinate) 100 Mg Tab.er.24h 150 Mg PO DAILY 30 Days Amiodarone Hcl 200 Mg Tablet 200 Mg PO DAILY 30 Days Clopidogrel (Clopidogrel Bisulfate) 75 Mg Tablet 1 Tab PO DAILY Atorvastatin Calcium 40 Mg Tablet 40 Mg PO QHS 30 Days Reported Gabapentin 300 Mg Capsule 300 Mg PO TID Eliquis (Apixaban) 5 Mg Tablet 5 Mg PO BID Vitals/I & O Vital Sign - Last 24 Hours 04/06/21 04/06/21 04/06/21 04/06/21 14:44 19:00 20:00 22:21 Temp 96.9 98.7 98.5 96.9 98.7 98.5 Pulse 68 67 60 Resp B/P (MAP) 112/60 (77) 110/62 (78) 99/57 (71) Pulse Ox 97 98 99 O2 Delivery Nasal Cannula Room Air Nasal Cannula Room Air O2 Flow Rate 2.0 2.0 04/07/21 04/07/21 04/07/21 04/07/21 02:40 07:00 08:00 08:52 Temp 98.0 98.5 98.0 98.5 Pulse 59 56 56 Resp 16 B/P (MAP) 116/67 (83) 116/64 (81) 107/55 (72) Pulse Ox 98 100 100 O2 Delivery Room Air Room Air Nasal Cannula Room Air O2 Flow Rate 2.0 04/07/21 10:27 Temp 97.5 97.5 Pulse 56 Resp 18 B/P (MAP) 102/59 (73) Pulse Ox 100 O2 Delivery Room Air Intake and Output 04/06/21 04/06/21 04/07/21 15:00 23:00 07:00 Intake Total 350 ml 2300 ml 800 ml Output Total 300 ml 300 ml Balance 350 ml 2000 ml 500 ml Justifications for Admission Other Justification Hypotension JOSE F BAUMAN APRN Apr 07, 2021 12:01
--- NOTE | 2021-04-07 13:08 | PDOC ---
[facility] PROGRESS NOTE Date of Service DOS: DATE: 04/07/21 TIME: 13:07 Chief Complaint Chief Complaint Problem List: Right upper lobe bilateral infiltrates concerning for pneumonia, possible aspiration and possible gram-negative organisms Right posterior parietal acute on subacute infarct Acute metabolic and possible infectious encephalopathy Hemodynamic instability requiring fluid bolus and central line placement SHAVON due to vasomotor nephropathy ATN Lactic acidosis Hypomagnesemia Acute on chronic CHF exacerbation Microcytic anemia due to chronic inflammatory disease History of CHF with LVEF of 25% Hx of DM Hx of DVT Hx of HTN Hx of CAD Admit to hospitalist service for further management Neurology consult Continue empiric IV antibiotics --> Vanc cefepime Duplex ultrasound of the right lower extremity -> normal but will check CTA given clinical evaluation today Wound care consult Vasopressors as needed to maintain maps greater than 55 Continue judicious IV fluid replacement in the context of CHF Strict I's/O Monitor urine output closely Trend LA R ISS and Accu-Cheks Lovenox for DVT prophylaxis Protonix GI prophylaxis ADA diet CODE STATUS DNR Discussed with RN and SW Disposition inpatient management as above, ICU care DPOA: Sister History of Present Illness History of Present Illness 04/07/2021 No acute events overnight. Patient seen examined bedside. AF and VSS. Low normal blood pressures. Wound care at bedside and changing groin wound. Nice granulation bed seen. Redness in right eye seems to have reduced and there is a dry dressing after CT aspiration done. About 100 cc of serous fluid was removed. Pending aspiration cultures. Continue with current ID recommendations for empiric IV antibiotics. 04/06/2021 No acute events overnight. Patient seen examined bedside. Working with physical therapy and improved mentation. Complaining of right thigh pain. Reexamination of his right thigh shows increased erythema and tightness in the proximal thigh region. Asking for vascular surgery to reevaluate and ordering ultrasound of the right lower extremity. Pulses are nonpalpable. Distal lower extremity is warm to touch. No pain or pallor in the foot region. Patient's chart, labs, images were reviewed and discussed with RN 04/05/2021 No acute events overnight. Patient seen examined bedside. Sitting upright with PT. Mentation has improved. Erythema of his right lower extremity appears improved. Fluid collection does not seem to be a source of infection per vascular surgery. ID consulted for persistent fevers of 101.5. Persistent leukocytosis. Antibiotic switched to meropenem. Pending CT chest abdomen pelvis. Patient's chart, labs, images were reviewed and discussed with RN 04/04/2021 No acute events overnight. Patient seen examined bedside. Patient pulled out central line. Abscess cultures grew out Enterococcus, corded bacterium and Pseudomonas. Will DC vancomycin for now continue with IV cefepime. Patient seen bedside with mittens and confused. Not following commands. Patient's chart, labs, images were reviewed and discussed with RN 04/03 Patient evaluated examined at bedside. More alert today able to actually open his eyes to me. Continue antibiotics. Neuro consult. Vascular evaluation of right lower extremity. Discussed with bedside RN. 04/02 Patient evaluated examined at bedside. Notably more altered today patient would not really open his eyes when I was evaluating him. Continue antibiotics. Evaluation of right lower extremity. Plan discussed with bedside RN. Checking CT head. 04/01 Patient evaluated examined at bedside. Seems a bit altered said he was feeling "kind of like shit." On nasal cannula oxygen. Continue empiric antibiotics for lung infection possible cellulitis. Right lower extremity is quite tense erythematous and somewhat painful for the patient. Extensive surgical intervention previously on this leg but will try to check imaging today to eval for any acute processes. Could probably transfer out of ICU if needed. Plan discussed with bedside RN. Vitals/I&O Vitals/I&O: Vital Signs Date Time Temp Pulse Resp B/P (MAP) Pulse Ox O2 Delivery O2 Flow Rate FiO2 04/07/21 10:27 97.5 56 18 102/59 (73) 100 Room Air 97.5 04/07/21 08:00 2.0 I & O 04/06/21 04/06/21 04/07/21 15:00 23:00 07:00 Intake Total 350 ml 2300 ml 800 ml Output Total 300 ml 300 ml Balance 350 ml 2000 ml 500 ml Physical Exam Physical Exam: GENERAL: Arousable, but not to his baseline, lethargic gentleman, not in any distress. VITAL SIGNS: Stable HEENT: Both pupils are round and reacting. No conjunctival lesion, no lesion in the mouth. NECK: Supple, no JVP, no lymphadenopathy. LUNGS: Clear. HEART: S1, S2, regular. ABDOMEN: Soft, nontender, no organomegaly. EXTREMITIES: No edema or cyanosis. SKIN: His right groin wound is clean, superficial. He does have a patch of rash under the left foot of unclear significance. Rest of the skin exam is unremarkable. Right thigh has swelling tenderness and probably fluid in it NEUROLOGIC: Awake alert able to communicate little bit better General: Alert, Cooperative, Other (Confused, nonverbal, awake, in no apparent distress. ) Heart: Regular rate, Normal S1, Normal S2 Lungs: Clear, Other Abdomen: Normal bowel sounds, Soft, No tenderness Extremities: Other (Left groin wound with some hyper granulation tissue and minimal surrounding fibrotic healing. There is no purulence, no probing, no undermining, no fluctuance. He has a large area of fluctuance medial to his distal incision on his thigh with moderate warmth and erythema. His incision is well-healed. He has a palpable DP pulse on the right foot. 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 No heel wounds) Labs Labs: Laboratory Tests Test 04/06/21 17:29 04/06/21 19:30 04/07/21 03:10 04/07/21 08:17 Glucose (Fingerstick) 120 mg/dL (70-99) 105 mg/dL (70-99) 86 mg/dL (70-99) White Blood Count 10.9 x10^3/uL (4.0-11.0) Red Blood Count 3.35 x10^6/uL (4.30-5.70) Hemoglobin 8.4 g/dL (13.0-17.5) Hematocrit 26.7 % (39.0-53.0) Mean Corpuscular Volume 80 fL (79-100) Mean Corpuscular Hemoglobin 25 pg (25-35) Mean Corpuscular Hemoglobin Concent 32 g/dL (31-37) Red Cell Distribution Width 19.7 % (11.5-14.5) Platelet Count 318 x10^3/uL (140-400) Neutrophils (%) (Auto) 78 % (31-73) Lymphocytes (%) (Auto) 12 % (24-48) Monocytes (%) (Auto) 7 % (0-9) Eosinophils (%) (Auto) 3 % (0-3) Basophils (%) (Auto) 1 % (0-3) Neutrophils # (Auto) 8.4 x10^3/uL (1.8-7.7) Lymphocytes # (Auto) 1.3 x10^3/uL (1.0-4.8) Monocytes # (Auto) 0.8 x10^3/uL (0.0-1.1) Eosinophils # (Auto) 0.3 x10^3/uL (0.0-0.7) Basophils # (Auto) 0.1 x10^3/uL (0.0-0.2) Sodium Level 149 mmol/L (136-145) Potassium Level 3.4 mmol/L (3.5-5.1) Chloride Level 115 mmol/L (98-107) Carbon Dioxide Level 21 mmol/L (21-32) Anion Gap 13 (6-14) Blood Urea Nitrogen 9 mg/dL (8-26) Creatinine 0.8 mg/dL (0.7-1.3) Estimated GFR (Cockcroft-Gault) 97.0 Glucose Level 102 mg/dL (70-99) Calcium Level 7.2 mg/dL (8.5-10.1) Magnesium Level 1.9 mg/dL (1.8-2.4) Test 04/07/21 11:43 Glucose (Fingerstick) 115 mg/dL (70-99) Assessment and Plan Assessmemt and Plan Problems Medical Problems: (1) AMS (altered mental status) Status: Acute (2) Pneumonia Status: Acute (3) Severe sepsis Status: Acute Comment Review of Relevant I have reviewed the following items rachel (where applicable) has been applied. Medications: Current Medications Medications (Trade) Dose Ordered Sig/Lizzeth Route PRN Reason Start Time Stop Time Status Last Admin Dose Admin Aspirin (Sun Aspirin) 325 mg DAILYWBKFT PO 04/07/21 08:00 04/07/21 09:31 Lactobacillus Rhamnosus (Culturelle) 1 cap BID PO 04/07/21 09:00 04/07/21 09:31 Lidocaine HCl (Buffered Lidocaine 1%) 3 ml 1X ONCE IJ 04/07/21 09:00 04/07/21 09:01 DC 04/07/21 08:50 Justifications for Admission Other Justification Hypotension LAURO NGO MD Apr 07, 2021 13:08
[2021-04-07] MEDS: IV DEXTROSE 5 %-0.45 % NACL 1,000 ML IV SCH (13:23)
[2021-04-07] MEDS: POTASSIUM CHLORIDE 10MEQ 100 ML IV SCH ×4 (14:30→19:18)
[2021-04-07] MEDS: ENOXAPARIN 40 MG/0.4 ML SYRINGE. SQ SCH (21:53)
[2021-04-07] MEDS: diphenhydrAMINE HCL 25 MG CAPSULE PO PRN (21:53)
[2021-04-07] MEDS: ATORVASTATIN CALCIUM 40 MG TABLET. PO SCH (21:53)
[2021-04-08 02:41] VITALS: BP 113/65
[2021-04-08] MEDS: MEROPENEM 500 MG in IV NORMAL SALINE 50ML 50 ML IV SCH ×3 (05:45→23:36)
[2021-04-08] MEDS: ACETAMINOPHEN 325 MG TABLET. PO PRN (05:45)
[2021-04-08] MEDS: IV DEXTROSE 5 %-0.45 % NACL 1,000 ML IV SCH ×3 (05:45→23:31)
[2021-04-08 07:00] VITALS: BP 128/69
[2021-04-08] MEDS: INSULIN LISPRO 300 UNITS/3 ML VIAL. SQ SCH ×3 (07:58→17:00)
--- NOTE | 2021-04-08 08:26 | PDOC ---
PROGRESS NOTES Date of Service DATE: 04/08/21 TIME: 08:22 Subjective Subjective Patient more awake today. States his right leg is "sore". Objective Objective Vital Signs Date Time Temp Pulse Resp B/P (MAP) Pulse Ox O2 Delivery O2 Flow Rate FiO2 04/08/21 07:00 98.3 66 16 128/69 (88) 100 Room Air 98.3 04/07/21 08:00 2.0 Intake and Output 04/08/21 07:00 Intake Total 1238 ml Output Total 480 ml Balance 758 ml Intake Oral 938 ml IV Total 300 ml Output Urine Total 400 ml Drainage Total 80 ml # Bowel Movements 2 Physical Exam Physical Exam Awake, alert, in no apparent distress right Groin wound pink, no drainage, periwound with mild erythema Right thigh redness improved, moderate firmness throughout. Fluctuance proximal thigh with induration, most likely from pressure dressing. Right foot warm with good cap refill. Assessment Assessment Problems Medical Problems: (1) AMS (altered mental status) Status: Acute (2) Pneumonia Status: Acute (3) Severe sepsis Status: Acute Plan Plan of Care PAD s/p right fem to [place] pop bypass 01/09 Altered mental status CVA Leukocytosis 65-year-old male with patent bypass and large fluid collection near distal anastomosis in thigh. Patient underwent US guided needle aspiration. Gram stain- no growth. Cultures pending. Leukocytosis and fevers improved. Discussed with ID, continue abx and monitor closely. Comment Review of Relevant I have reviewed the following items rachel (where applicable) has been applied. Labs Laboratory Tests Test 04/06/21 11:46 04/06/21 17:29 04/06/21 19:30 04/07/21 03:10 Glucose (Fingerstick) 128 mg/dL (70-99) 120 mg/dL (70-99) 105 mg/dL (70-99) White Blood Count 10.9 x10^3/uL (4.0-11.0) Red Blood Count 3.35 x10^6/uL (4.30-5.70) Hemoglobin 8.4 g/dL (13.0-17.5) Hematocrit 26.7 % (39.0-53.0) Mean Corpuscular Volume 80 fL (79-100) Mean Corpuscular Hemoglobin 25 pg (25-35) Mean Corpuscular Hemoglobin Concent 32 g/dL (31-37) Red Cell Distribution Width 19.7 % (11.5-14.5) Platelet Count 318 x10^3/uL (140-400) Neutrophils (%) (Auto) 78 % (31-73) Lymphocytes (%) (Auto) 12 % (24-48) Monocytes (%) (Auto) 7 % (0-9) Eosinophils (%) (Auto) 3 % (0-3) Basophils (%) (Auto) 1 % (0-3) Neutrophils # (Auto) 8.4 x10^3/uL (1.8-7.7) Lymphocytes # (Auto) 1.3 x10^3/uL (1.0-4.8) Monocytes # (Auto) 0.8 x10^3/uL (0.0-1.1) Eosinophils # (Auto) 0.3 x10^3/uL (0.0-0.7) Basophils # (Auto) 0.1 x10^3/uL (0.0-0.2) Sodium Level 149 mmol/L (136-145) Potassium Level 3.4 mmol/L (3.5-5.1) Chloride Level 115 mmol/L (98-107) Carbon Dioxide Level 21 mmol/L (21-32) Anion Gap 13 (6-14) Blood Urea Nitrogen 9 mg/dL (8-26) Creatinine 0.8 mg/dL (0.7-1.3) Estimated GFR (Cockcroft-Gault) 97.0 Glucose Level 102 mg/dL (70-99) Calcium Level 7.2 mg/dL (8.5-10.1) Magnesium Level 1.9 mg/dL (1.8-2.4) Test 04/07/21 08:17 04/07/21 11:43 04/07/21 17:18 04/07/21 21:02 Glucose (Fingerstick) 86 mg/dL (70-99) 115 mg/dL (70-99) 97 mg/dL (70-99) 80 mg/dL (70-99) Test 04/08/21 07:43 Glucose (Fingerstick) 85 mg/dL (70-99) Laboratory Tests Test 04/07/21 11:43 04/07/21 17:18 04/07/21 21:02 04/08/21 07:43 Glucose (Fingerstick) 115 mg/dL (70-99) 97 mg/dL (70-99) 80 mg/dL (70-99) 85 mg/dL (70-99) Microbiology 04/07/21 Gram Stain - Final, Resulted 04/07/21 Aerobic and Anaerobic Culture, Resulted Pending 03/31/21 Blood Culture - Final, Complete NO GROWTH AFTER 5 DAYS Medications Current Medications Sodium Chloride 1,000 ml @ 1,000 mls/hr Q1H IV Last administered on 03/31/21at 14:30; Start 03/31/21 at 14:30; Stop 03/31/21 at 15:29; Status DC Acetaminophen (Tylenol Supp) 975 mg 1X ONCE MT Last administered on 03/31/21at 14:30; Start 03/31/21 at 14:30; Stop 03/31/21 at 14:31; Status DC Piperacillin Sod/ Tazobactam Sod 3.375 gm/Sodium Chloride 50 ml @ 100 mls/hr 1X ONCE IV Last administered on 03/31/21at 15:07; Start 03/31/21 at 15:00; Stop 03/31/21 at 15:29; Status DC Sodium Chloride 1,000 ml @ 1,000 mls/hr 1X ONCE IV Last administered on 03/31/21at 15:03; Start 03/31/21 at 15:00; Stop 03/31/21 at 15:59; Status DC Magnesium Sulfate 50 ml @ 25 mls/hr 1X ONCE IV Last administered on 03/31/21at 15:52; Start 03/31/21 at 15:30; Stop 03/31/21 at 17:29; Status DC Lidocaine HCl (Lidocaine 1% 20ml Vial) 20 ml 1X ONCE INJ Last administered on 03/31/21at 16:00; Start 03/31/21 at 16:30; Stop 03/31/21 at 16:31; Status DC Sodium Chloride (NORMAL SALINE FLUSH for STERILE FIELD) 10 ml STK-MED ONCE .ROUTE ; Start 03/31/21 at 15:57; Stop 03/31/21 at 15:57; Status DC Lidocaine HCl (Lidocaine 2% 20ml Vial) 20 ml STK-MED ONCE .ROUTE ; Start 03/31/21 at 15:58; Stop 03/31/21 at 15:59; Status DC Norepinephrine Bitartrate 8 mg/ Dextrose 258 ml @ 14.126 mls/ hr 1X ONCE IV Last administered on 03/31/21at 16:41; Start 03/31/21 at 16:30; Stop 04/01/21 at 07:39; Status DC Vancomycin HCl (Vanco Per Pharmacy) 1 each PRN DAILY PRN MC SEE COMMENTS Last administered on 04/02/21at 19:29; Start 03/31/21 at 17:00; Stop 04/04/21 at 12:32; Status DC Cefepime HCl (Maxipime) 1 gm Q24H IVP Last administered on 04/04/21at 19:54; Start 03/31/21 at 18:00; Stop 04/05/21 at 10:43; Status DC Sennosides (Senna) 17.2 mg PRN BID PRN PO CONSTIPATION; Start 03/31/21 at 17:00 Docusate Sodium (Colace) 100 mg PRN DAILY PRN PO HARD STOOLS; Start 03/31/21 at 17:00 Ondansetron HCl (Zofran) 4 mg PRN Q6HRS PRN IVP NAUSEA/VOMITING, 1st CHOICE Last administered on 04/06/21at 14:20; Start 03/31/21 at 17:00 Insulin Human Lispro (HumaLOG) 0-7 UNITS TIDWMEALS SQ ; Start 04/01/21 at 08:00 Dextrose (Dextrose 50%-Water Syringe) 12.5 gm PRN Q15MIN PRN IV SEE COMMENTS Last administered on 04/04/21at 02:29; Start 03/31/21 at 17:00 Sodium Chloride 1,000 ml @ 100 mls/hr Q10H IV Last administered on 04/03/21at 23:44; Start 03/31/21 at 18:00; Stop 04/04/21 at 09:14; Status DC Acetaminophen (Tylenol) 650 mg PRN Q4HRS PRN PO TEMP OVER 100.4F OR MILD PAIN Last administered on 04/08/21at 05:45; Start 03/31/21 at 17:00 Lorazepam (Ativan) 0.5 mg PRN Q6HRS PRN PO ANXIETY / AGITATION Last administered on 04/01/21at 14:02; Start 03/31/21 at 17:00 Lorazepam (Ativan Inj) 0.25 mg PRN Q4HRS PRN IV ANXIETY / AGITATION Last administered on 04/04/21at 02:51; Start 03/31/21 at 17:00 Enoxaparin Sodium (Lovenox 40mg Syringe) 40 mg Q24H SQ Last administered on 04/07/21at 21:53; Start 03/31/21 at 21:00 Prochlorperazine Edisylate (Compazine) 10 mg PRN Q6HRS PRN IV NAUSEA/VOMITING, 2nd CHOICE; Start 03/31/21 at 17:00 Diphenhydramine HCl (Benadryl) 25 mg PRN Q6HRS PRN IVP ITCHING Last administered on 04/06/21at 14:25; Start 03/31/21 at 17:00 Diphenhydramine HCl (Benadryl) 25 mg PRN Q6HRS PRN PO ITCHING Last administered on 04/06/21at 20:00; Start 03/31/21 at 17:00 Diphenhydramine HCl (Benadryl) 25 mg PRN QHS PRN PO INSOMNIA, 1st CHOICE Last administered on 04/07/21at 21:53; Start 03/31/21 at 17:00 Zolpidem Tartrate (Ambien) 2.5 mg PRN QHS PRN PO INSOMNIA, 2nd CHOICE; Start 03/31/21 at 17:00 Ondansetron HCl (Zofran) 4 mg PRN Q8HRS PRN IVP NAUSEA/VOMITING; Start 03/31/21 at 17:15; Stop 04/01/21 at 17:14; Status UNV Sodium Chloride 1,000 ml @ 125 mls/hr Q8H IV ; Start 03/31/21 at 17:15; Stop 04/01/21 at 17:14; Status UNV Potassium Chloride/Water 100 ml @ 100 mls/hr Q1H IV Last administered on 03/31/21at 22:00; Start 03/31/21 at 18:00; Stop 03/31/21 at 21:59; Status DC Vancomycin HCl 2 gm/Sodium Chloride 500 ml @ 250 mls/hr 1X ONCE IV Last administered on 03/31/21at 18:19; Start 03/31/21 at 17:30; Stop 03/31/21 at 19:29; Status DC Magnesium Sulfate 50 ml @ 25 mls/hr 1X ONCE IV Last administered on 03/31/21at 18:24; Start 03/31/21 at 17:30; Stop 03/31/21 at 19:29; Status DC Vancomycin HCl 1.25 gm/Sodium Chloride 250 ml @ 167 mls/hr Q24H IV Last ad ministered on 04/02/21at 18:32; Start 04/01/21 at 18:00; Stop 04/02/21 at 21:00; Status DC Vancomycin HCl (Vancomycin Trough Level) 1 each 1X ONCE MC Last administered on 04/02/21at 17:30; Start 04/02/21 at 17:30; Stop 04/02/21 at 17:31; Status DC Norepinephrine Bitartrate 8 mg/ Dextrose 258 ml @ 16.37 mls/ hr CONT PRN IV PER PROTOCOL Last administered on 04/01/21at 09:34; Start 04/01/21 at 00:00; Stop 04/04/21 at 12:31; Status DC Info (FLU VACCINE SCREEN per RX) 1 each PRN DAILY PRN MC SEE COMMENTS; Start 04/01/21 at 01:39; Stop 04/06/21 at 13:18; Status DC Influenza Virus Vaccine Quadrival (Flulaval Quad [id number] Syringe) 0.5 ml ONCE ONCE VAX IM ; Start 04/01/21 at 21:00; Stop 04/01/21 at 21:01; Status DC Iohexol (Omnipaque 350 Mg/ml) 100 ml 1X ONCE IV ; Start 04/01/21 at 16:00; Stop 04/01/21 at 16:01; Status DC Info (CONTRAST GIVEN -- Rx MONITORING) 1 each PRN DAILY PRN MC SEE COMMENTS; Start 04/01/21 at 16:00; Stop 04/03/21 at 15:59; Status DC Acetaminophen (Tylenol Supp) 650 mg PRN Q6HRS PRN MT MILD PAIN / TEMP > 100.3'F Last administered on 04/06/21at 03:17; Start 04/01/21 at 20:00 Vancomycin HCl 1 gm/Sodium Chloride 250 ml @ 250 mls/hr Q12H IV Last administered on 04/04/21at 05:27; Start 04/03/21 at 06:00; Stop 04/04/21 at 12:30; Status DC Aspirin (Aspirin Rectal Supp) 300 mg DAILY MT Last administered on 04/05/21at 08:56; Start 04/02/21 at 21:00; Stop 04/07/21 at 05:00; Status DC Atorvastatin Calcium (Lipitor) 40 mg QHS PO Last administered on 04/07/21at 21:53; Start 04/02/21 at 21:00 Dextrose/Sodium Chloride 1,000 ml @ 100 mls/hr Q10H IV Last administered on 04/07/21at 06:23; Start 04/04/21 at 09:15; Stop 04/07/21 at 13:10; Status DC Meropenem 500 mg/ Sodium Chloride 50 ml @ 100 mls/hr Q8HRS IV Last administered on 04/08/21at 05:45; Start 04/05/21 at 14:00 Iohexol (Omnipaque 240 Mg/ml) 50 ml 1X ONCE PO ; Start 04/05/21 at 11:00; Stop 04/05/21 at 11:01; Status DC Iohexol (Omnipaque 300 Mg/ml) 75 ml 1X ONCE IV Last administered on 04/05/21at 11:26; Start 04/05/21 at 11:00; Stop 04/05/21 at 11:01; Status DC Linezolid/Dextrose 300 ml @ 300 mls/hr Q12HR IV Last administered on 04/07/21at 21:52; Start 04/06/21 at 11:30 Aspirin (Sun Aspirin) 325 mg DAILYWBKFT PO Last administered on 04/07/21at 09:31; Start 04/07/21 at 08:00 Lactobacillus Rhamnosus (Culturelle) 1 cap BID PO Last administered on 04/07/21at 21:53; Start 04/07/21 at 09:00 Lidocaine HCl (Buffered Lidocaine 1%) 3 ml STK-MED ONCE .ROUTE ; Start 04/07/21 at 08:40; Stop 04/07/21 at 08:41; Status DC Lidocaine HCl (Buffered Lidocaine 1%) 3 ml 1X ONCE IJ Last administered on 04/07/21at 08:50; Start 04/07/21 at 09:00; Stop 04/07/21 at 09:01; Status DC Potassium Chloride/Water 100 ml @ 100 mls/hr Q1H IV Last administered on 04/07/21at 19:18; Start 04/07/21 at 14:00; Stop 04/07/21 at 17:59; Status DC Dextrose/Sodium Chloride 1,000 ml @ 100 mls/hr Q10H IV Last administered on 04/08/21at 05:45; Start 04/07/21 at 13:15 Active Scripts Active Duoneb 0.5-3(2.5) Mg/3 Ml (Albuterol/Ipratropium) 3 Ml Ampul.neb 3 Ml NEB BID Flomax (Tamsulosin Hcl) 0.4 Mg Cap.er.24h 0.4 Mg PO QHS Olanzapine 5 Mg Tablet 5 Mg PO BID Quetiapine Fumarate ER (Quetiapine Fumarate) 50 Mg Tab.er.24h 100 Mg PO QHS Culturelle (Lactobacillus Rhamnosus Gg) 1 Each Cap.sprink 1 Cap PO BID Thera-M Tablet (Multivits,Ca,Minerals/Iron/Fa) 1 Each Tablet 1 Tab PO DAILY Percocet 5-325 Mg Tablet (Oxycodone/Acetaminophen) 1 Each Tablet 1 Tab PO PRN Q4HRS PRN Fluoxetine Hcl 20 Mg Capsule 20 Mg PO DAILY Cefdinir 300 Mg Capsule 300 Mg PO BID Doxycycline Hyclate 100 Mg Tablet 100 Mg PO BID Metoprolol Succinate ( Xl ) (Metoprolol Succinate) 100 Mg Tab.er.24h 150 Mg PO DAILY 30 Days Amiodarone Hcl 200 Mg Tablet 200 Mg PO DAILY 30 Days Clopidogrel (Clopidogrel Bisulfate) 75 Mg Tablet 1 Tab PO DAILY Atorvastatin Calcium 40 Mg Tablet 40 Mg PO QHS 30 Days Reported Gabapentin 300 Mg Capsule 300 Mg PO TID Eliquis (Apixaban) 5 Mg Tablet 5 Mg PO BID Vitals/I & O Vital Sign - Last 24 Hours 04/07/21 04/07/21 04/07/21 04/07/21 08:52 10:27 15:00 19:28 Temp 97.5 97.4 98.6 97.5 97.4 98.6 Pulse 56 56 58 57 Resp 16 18 18 18 B/P (MAP) 107/55 (72) 102/59 (73) 94/51 (65) 103/58 (73) Pulse Ox 100 100 100 100 O2 Delivery Room Air Room Air Room Air Room Air 04/07/21 04/07/21 04/08/21 04/08/21 20:00 22:20 02:41 07:00 Temp 98.5 97.7 98.3 98.5 97.7 98.3 Pulse 59 60 66 Resp 18 18 16 B/P (MAP) 105/56 (72) 113/65 (81) 128/69 (88) Pulse Ox 96 100 100 O2 Delivery Room Air Room Air Room Air Room Air Intake and Output 04/07/21 04/07/21 04/08/21 15:00 23:00 07:00 Intake Total 1008 ml 180 ml 50 ml Output Total 80 ml 400 ml Balance 928 ml 180 ml -350 ml Justifications for Admission Other Justification Hypotension JOSE F BAUMAN APRN Apr 08, 2021 08:26
[2021-04-08] MEDS: LACTOBACILLUS RHAMNOSUS GG 1 CAPSULE. PO SCH ×2 (08:44→23:32)
[2021-04-08] MEDS: ASPIRIN 325 MG TABLET PO SCH (08:44)
--- NOTE | 2021-04-08 09:13 | PDOC ---
Infectious Disease Note Subjective Subjective Patient is more awake alert today able to communicate properly says he is feeling better ROS ROS No nausea vomiting diarrhea or fever Vital Sign Vital Signs Vital Signs Date Time Temp Pulse Resp B/P (MAP) Pulse Ox O2 Delivery O2 Flow Rate FiO2 04/08/21 07:00 98.3 66 16 128/69 (88) 100 Room Air 98.3 04/07/21 08:00 2.0 Physical Exam PHYSICAL EXAM GENERAL: Arousable, but not to his baseline, lethargic gentleman, not in any distress. VITAL SIGNS: Stable HEENT: Both pupils are round and reacting. No conjunctival lesion, no lesion in the mouth. NECK: Supple, no JVP, no lymphadenopathy. LUNGS: Clear. HEART: S1, S2, regular. ABDOMEN: Soft, nontender, no organomegaly. EXTREMITIES: No edema or cyanosis. SKIN: His right groin wound is clean, superficial. He does have a patch of rash under the left foot of unclear significance. Rest of the skin exam is unremarkable. Right thigh has swelling tenderness and probably fluid in it NEUROLOGIC: Awake alert able to communicate little bit better Labs Lab Laboratory Tests Test 04/07/21 11:43 04/07/21 17:18 04/07/21 21:02 04/08/21 07:43 Glucose (Fingerstick) 115 mg/dL (70-99) 97 mg/dL (70-99) 80 mg/dL (70-99) 85 mg/dL (70-99) Micro Microbiology 04/01/21 Gram Stain - Final, Resulted 04/01/21 Aerobic and Anaerobic Culture - Preliminary, Resulted Enterococcus Faecalis Corynebacterium Striatum Grp Pseudomonas Aeruginosa 03/31/21 Blood Culture - Final, Complete NO GROWTH AFTER 5 DAYS Objective Assessment IMPRESSION: 1. Fever, likely from the right thigh infected either hematoma or seroma Status post aspiration cultures so far negative 2. Encephalopathy. 3. Leukocytosis. 4. Right groin wound, which is clean and superficial, do not see any infection there. 5. Coronary artery disease. 6. Peripheral arterial disease. Plan Plan of Care Continue antibiotics Discussed with vascular surgery YEISON MAXWELL MD Apr 08, 2021 09:13
[2021-04-08 10:54] VITALS: BP 106/62
--- NOTE | 2021-04-08 12:23 | NUR ---
SS following up with discharge planning. SS reviewed pt chart and discussed with pt RN. Pt is currently on room air. COVID19 negative. Vascular and ID following. Cultures pending. Pt on IV Meropenem and IV Zyvox. PO diet. PT/OT recommended usp unit. Referrals have been sent to [facility], ; fax [phone], and [facility], ; fax [phone]. Currently awaiting acceptance decisions. SS will continue to follow for discharge planning.
[2021-04-08 13:29] LABS: CALCIUM 7.3 mg/dL (8.5-10.1)
[2021-04-08 13:31] LABS: BASO % 0 % (0-3); EOS # 0.2 x10^3/uL (0.0-0.7); EOS % 2 % (0-3); HEMATOCRIT 32.7 % (39.0-53.0); HEMOGLOBIN 9.9 g/dL (13.0-17.5); LYMPH # 1.5 x10^3/uL (1.0-4.8); LYMPH % 14 % (24-48); MEAN CORPUSCULAR HEMOGLOBIN 25 pg (25-35); MEAN CORPUSCULAR HGB CONC 30 g/dL (31-37); MEAN CORPUSCULAR VOLUME 81 fL (79-100); MONO # 0.8 x10^3/uL (0.0-1.1); MONO % 7 % (0-9); NEUT # 8.3 x10^3/uL (1.8-7.7); NEUT % 77 % (31-73); PLATELET COUNT 366 x10^3/uL (140-400); RED BLOOD COUNT 4.03 x10^6/uL (4.30-5.70); RED CELL DISTRIBUTION WIDTH 19.7 % (11.5-14.5); WHITE BLOOD COUNT 10.8 x10^3/uL (4.0-11.0)
--- NOTE | 2021-04-08 14:14 | PDOC ---
[employer] PROGRESS NOTE Date of Service DOS: DATE: 04/08/21 TIME: 14:13 Chief Complaint Chief Complaint Problem List: Right upper lobe bilateral infiltrates concerning for pneumonia, possible aspiration and possible gram-negative organisms Right posterior parietal acute on subacute infarct Acute metabolic and possible infectious encephalopathy Hemodynamic instability requiring fluid bolus and central line placement SHAVON due to vasomotor nephropathy ATN Lactic acidosis Hypomagnesemia Acute on chronic CHF exacerbation Microcytic anemia due to chronic inflammatory disease History of CHF with LVEF of 25% Hx of DM Hx of DVT Hx of HTN Hx of CAD Admit to hospitalist service for further management Neurology consult Continue empiric IV antibiotics --> Vanc cefepime Duplex ultrasound of the right lower extremity -> normal but will check CTA given clinical evaluation today Wound care consult Vasopressors as needed to maintain maps greater than 55 Continue judicious IV fluid replacement in the context of CHF Strict I's/O Monitor urine output closely Trend LA R ISS and Accu-Cheks Lovenox for DVT prophylaxis Protonix GI prophylaxis ADA diet CODE STATUS DNR Discussed with RN and SW Disposition inpatient management as above, ICU care DPOA: Sister History of Present Illness History of Present Illness 04/08/2021 No acute events overnight. Patient seen examined bedside. Right thigh appears improved. AF and VSS. Electrolytes have normalized. Pending aspirate cultures. Patient will need to go to SNF at time of discharge. We will follow up on antibiotic course and timing. Patient's chart, labs, images were reviewed and discussed with RN 04/07/2021 No acute events overnight. Patient seen examined bedside. AF and VSS. Low normal blood pressures. Wound care at bedside and changing groin wound. Nice granulation bed seen. Redness in right eye seems to have reduced and there is a dry dressing after CT aspiration done. About 100 cc of serous fluid was removed. Pending aspiration cultures. Continue with current ID recommendations for empiric IV antibiotics. 04/06/2021 No acute events overnight. Patient seen examined bedside. Working with physical therapy and improved mentation. Complaining of right thigh pain. Reexamination of his right thigh shows increased erythema and tightness in the proximal thigh region. Asking for vascular surgery to reevaluate and ordering ultrasound of the right lower extremity. Pulses are nonpalpable. Distal lower extremity is warm to touch. No pain or pallor in the foot region. Patient's chart, labs, images were reviewed and discussed with RN 04/05/2021 No acute events overnight. Patient seen examined bedside. Sitting upright with PT. Mentation has improved. Erythema of his right lower extremity appears improved. Fluid collection does not seem to be a source of infection per vascular surgery. ID consulted for persistent fevers of 101.5. Persistent leukocytosis. Antibiotic switched to meropenem. Pending CT chest abdomen pelvis. Patient's chart, labs, images were reviewed and discussed with RN 04/04/2021 No acute events overnight. Patient seen examined bedside. Patient pulled out central line. Abscess cultures grew out Enterococcus, corded bacterium and Pseudomonas. Will DC vancomycin for now continue with IV cefepime. Patient seen bedside with mittens and confused. Not following commands. Patient's chart, labs, images were reviewed and discussed with RN 04/03 Patient evaluated examined at bedside. More alert today able to actually open his eyes to me. Continue antibiotics. Neuro consult. Vascular evaluation of right lower extremity. Discussed with bedside RN. 04/02 Patient evaluated examined at bedside. Notably more altered today patient would not really open his eyes when I was evaluating him. Continue antibiotics. Evaluation of right lower extremity. Plan discussed with bedside RN. Checking CT head. 04/01 Patient evaluated examined at bedside. Seems a bit altered said he was feeling "kind of like shit." On nasal cannula oxygen. Continue empiric antibiotics for lung infection possible cellulitis. Right lower extremity is quite tense erythematous and somewhat painful for the patient. Extensive surgical interven tion previously on this leg but will try to check imaging today to eval for any acute processes. Could probably transfer out of ICU if needed. Plan discussed with bedside RN. Vitals/I&O Vitals/I&O: Vital Signs Date Time Temp Pulse Resp B/P (MAP) Pulse Ox O2 Delivery O2 Flow Rate FiO2 04/08/21 10:54 97.9 53 18 106/62 (77) 99 Room Air 97.9 04/07/21 08:00 2.0 I & O 04/07/21 04/07/21 04/08/21 15:00 23:00 07:00 Intake Total 1008 ml 180 ml 50 ml Output Total 80 ml 400 ml Balance 928 ml 180 ml -350 ml Physical Exam Physical Exam: GENERAL: Arousable, but not to his baseline, lethargic gentleman, not in any distress. VITAL SIGNS: Stable HEENT: Both pupils are round and reacting. No conjunctival lesion, no lesion in the mouth. NECK: Supple, no JVP, no lymphadenopathy. LUNGS: Clear. HEART: S1, S2, regular. ABDOMEN: Soft, nontender, no organomegaly. EXTREMITIES: No edema or cyanosis. SKIN: His right groin wound is clean, superficial. He does have a patch of rash under the left foot of unclear significance. Rest of the skin exam is unremarkable. Right thigh has swelling tenderness and probably fluid in it NEUROLOGIC: Awake alert able to communicate little bit better General: Alert, Cooperative, Other (Confused, nonverbal, awake, in no apparent distress. ) Heart: Regular rate, Normal S1, Normal S2 Lungs: Clear, Other Abdomen: Normal bowel sounds, Soft, No tenderness Extremities: Other (Left groin wound with some hyper granulation tissue and minimal surrounding fibrotic healing. There is no purulence, no probing, no undermining, no fluctuance. He has a large area of fluctuance medial to his distal incision on his thigh with moderate warmth and erythema. His incision is well-healed. He has a palpable DP pulse on the right foot. 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 No heel wounds) Labs Labs: Laboratory Tests Test 04/07/21 17:18 04/07/21 21:02 04/08/21 07:43 04/08/21 11:54 Glucose (Fingerstick) 97 mg/dL (70-99) 80 mg/dL (70-99) 85 mg/dL (70-99) 86 mg/dL (70-99) Test 04/08/21 13:05 White Blood Count 10.8 x10^3/uL (4.0-11.0) Red Blood Count 4.03 x10^6/uL (4.30-5.70) Hemoglobin 9.9 g/dL (13.0-17.5) Hematocrit 32.7 % (39.0-53.0) Mean Corpuscular Volume 81 fL (79-100) Mean Corpuscular Hemoglobin 25 pg (25-35) Mean Corpuscular Hemoglobin Concent 30 g/dL (31-37) Red Cell Distribution Width 19.7 % (11.5-14.5) Platelet Count 366 x10^3/uL (140-400) Neutrophils (%) (Auto) 77 % (31-73) Lymphocytes (%) (Auto) 14 % (24-48) Monocytes (%) (Auto) 7 % (0-9) Eosinophils (%) (Auto) 2 % (0-3) Basophils (%) (Auto) 0 % (0-3) Neutrophils # (Auto) 8.3 x10^3/uL (1.8-7.7) Lymphocytes # (Auto) 1.5 x10^3/uL (1.0-4.8) Monocytes # (Auto) 0.8 x10^3/uL (0.0-1.1) Eosinophils # (Auto) 0.2 x10^3/uL (0.0-0.7) Basophils # (Auto) 0.0 x10^3/uL (0.0-0.2) Sodium Level 143 mmol/L (136-145) Potassium Level 4.0 mmol/L (3.5-5.1) Chloride Level 112 mmol/L (98-107) Carbon Dioxide Level 19 mmol/L (21-32) Anion Gap 12 (6-14) Blood Urea Nitrogen 13 mg/dL (8-26) Creatinine 1.0 mg/dL (0.7-1.3) Estimated GFR (Cockcroft-Gault) 75.0 Glucose Level 97 mg/dL (70-99) Calcium Level 7.3 mg/dL (8.5-10.1) Magnesium Level 2.0 mg/dL (1.8-2.4) Assessment and Plan Assessmemt and Plan Problems Medical Problems: (1) AMS (altered mental status) Status: Acute (2) Pneumonia Status: Acute (3) Severe sepsis Status: Acute Comment Review of Relevant I have reviewed the following items rachel (where applicable) has been applied. Justifications for Admission Other Justification Hypotension LAURO NGO MD Apr 08, 2021 14:14
[2021-04-08 15:00] VITALS: BP 132/77
[2021-04-08 19:21] VITALS: BP 119/67
[2021-04-08 22:14] VITALS: BP 145/67
[2021-04-08] MEDS: ATORVASTATIN CALCIUM 40 MG TABLET. PO SCH (23:32)
[2021-04-08] MEDS: ENOXAPARIN 40 MG/0.4 ML SYRINGE. SQ SCH (23:32)
[2021-04-09 02:02] VITALS: BP 144/71
[2021-04-09] MEDS: IV DEXTROSE 5 %-0.45 % NACL 1,000 ML IV SCH ×2 (05:15→13:35)
[2021-04-09] MEDS: MEROPENEM 500 MG in IV NORMAL SALINE 50ML 50 ML IV SCH ×3 (06:20→21:27)
[2021-04-09 07:00] VITALS: BP 137/69
[2021-04-09] MEDS: INSULIN LISPRO 300 UNITS/3 ML VIAL. SQ SCH ×3 (08:00→17:00)
[2021-04-09] MEDS: LACTOBACILLUS RHAMNOSUS GG 1 CAPSULE. PO SCH ×2 (08:06→21:22)
[2021-04-09] MEDS: ASPIRIN 325 MG TABLET PO SCH (08:06)
--- NOTE | 2021-04-09 08:12 | PDOC ---
Infectious Disease Note Subjective Subjective Much more awake and able to communicate says he is feeling better ROS ROS No nausea vomiting diarrhea Vital Sign Vital Signs Vital Signs Date Time Temp Pulse Resp B/P (MAP) Pulse Ox O2 Delivery O2 Flow Rate FiO2 04/09/21 02:02 99.8 62 18 144/71 (95) 95 Room Air 99.8 Physical Exam PHYSICAL EXAM GENERAL: Arousable, but not to his baseline, lethargic gentleman, not in any distress. VITAL SIGNS: Stable HEENT: Both pupils are round and reacting. No conjunctival lesion, no lesion in the mouth. NECK: Supple, no JVP, no lymphadenopathy. LUNGS: Clear. HEART: S1, S2, regular. ABDOMEN: Soft, nontender, no organomegaly. EXTREMITIES: No edema or cyanosis. SKIN: His right groin wound is clean, superficial. He does have a patch of rash under the left foot of unclear significance. Rest of the skin exam is unremarkable. Right thigh has swelling tenderness and probably fluid in it NEUROLOGIC: Awake alert able to communicate little bit better Labs Lab Laboratory Tests Test 04/08/21 10:58 04/08/21 11:54 04/08/21 13:05 04/08/21 20:04 Clostridium difficile Toxin (PCR) Negative (NEGATIVE) Glucose (Fingerstick) 86 mg/dL (70-99) 96 mg/dL (70-99) White Blood Count 10.8 x10^3/uL (4.0-11.0) Red Blood Count 4.03 x10^6/uL (4.30-5.70) Hemoglobin 9.9 g/dL (13.0-17.5) Hematocrit 32.7 % (39.0-53.0) Mean Corpuscular Volume 81 fL (79-100) Mean Corpuscular Hemoglobin 25 pg (25-35) Mean Corpuscular Hemoglobin Concent 30 g/dL (31-37) Red Cell Distribution Width 19.7 % (11.5-14.5) Platelet Count 366 x10^3/uL (140-400) Neutrophils (%) (Auto) 77 % (31-73) Lymphocytes (%) (Auto) 14 % (24-48) Monocytes (%) (Auto) 7 % (0-9) Eosinophils (%) (Auto) 2 % (0-3) Basophils (%) (Auto) 0 % (0-3) Neutrophils # (Auto) 8.3 x10^3/uL (1.8-7.7) Lymphocytes # (Auto) 1.5 x10^3/uL (1.0-4.8) Monocytes # (Auto) 0.8 x10^3/uL (0.0-1.1) Eosinophils # (Auto) 0.2 x10^3/uL (0.0-0.7) Basophils # (Auto) 0.0 x10^3/uL (0.0-0.2) Sodium Level 143 mmol/L (136-145) Potassium Level 4.0 mmol/L (3.5-5.1) Chloride Level 112 mmol/L (98-107) Carbon Dioxide Level 19 mmol/L (21-32) Anion Gap 12 (6-14) Blood Urea Nitrogen 13 mg/dL (8-26) Creatinine 1.0 mg/dL (0.7-1.3) Estimated GFR (Cockcroft-Gault) 75.0 Glucose Level 97 mg/dL (70-99) Calcium Level 7.3 mg/dL (8.5-10.1) Magnesium Level 2.0 mg/dL (1.8-2.4) Test 04/09/21 07:45 Glucose (Fingerstick) 80 mg/dL (70-99) Micro Microbiology 04/01/21 Gram Stain - Final, Resulted 04/01/21 Aerobic and Anaerobic Culture - Preliminary, Resulted Enterococcus Faecalis Corynebacterium Striatum Grp Pseudomonas Aeruginosa 03/31/21 Blood Culture - Final, Complete NO GROWTH AFTER 5 DAYS Objective Assessment IMPRESSION: 1. Fever, likely from the right thigh infected either hematoma or seroma Status post aspiration cultures so far negative 2. Encephalopathy. 3. Leukocytosis. 4. Right groin wound, which is clean and superficial, do not see any infection there. 5. Coronary artery disease. 6. Peripheral arterial disease. Plan Plan of Care Continue antibiotics Right thigh aspirate culture is negative so far Discussed with vascular surgery YEISON MAXWELL MD Apr 09, 2021 08:11
[2021-04-09 10:58] VITALS: BP 133/63
--- NOTE | 2021-04-09 13:25 | PDOC ---
[facility] PROGRESS NOTE Date of Service DOS: DATE: 04/09/21 TIME: 13:24 Chief Complaint Chief Complaint Problem List: Right upper lobe bilateral infiltrates concerning for pneumonia, possible aspiration and possible gram-negative organisms Right posterior parietal acute on subacute infarct Acute metabolic and possible infectious encephalopathy Hemodynamic instability requiring fluid bolus and central line placement SHAVON due to vasomotor nephropathy ATN Lactic acidosis Hypomagnesemia Acute on chronic CHF exacerbation Microcytic anemia due to chronic inflammatory disease History of CHF with LVEF of 25% Hx of DM Hx of DVT Hx of HTN Hx of CAD Admit to hospitalist service for further management Neurology consult Continue empiric IV antibiotics --> Vanc cefepime Duplex ultrasound of the right lower extremity -> normal but will check CTA given clinical evaluation today Wound care consult Vasopressors as needed to maintain maps greater than 55 Continue judicious IV fluid replacement in the context of CHF Strict I's/O Monitor urine output closely Trend LA R ISS and Accu-Cheks Lovenox for DVT prophylaxis Protonix GI prophylaxis ADA diet CODE STATUS DNR Discussed with RN and SW Disposition inpatient management as above, ICU care DPOA: Sister History of Present Illness History of Present Illness 04/09/2021 No acute events overnight. Patient seen examined bedside. Negative cultures to date for right thigh aspiration cultures. Low-grade fever of 99.8. Vital signs stable. Mentation is stable. Patient's chart, labs, images were reviewed and discussed with RN 04/08/2021 No acute events overnight. Patient seen examined bedside. Right thigh appears improved. AF and VSS. Electrolytes have normalized. Pending aspirate cultures. Patient will need to go to SNF at time of discharge. We will follow up on antibiotic course and timing. Patient's chart, labs, images were reviewed and discussed with RN 04/07/2021 No acute events overnight. Patient seen examined bedside. AF and VSS. Low normal blood pressures. Wound care at bedside and changing groin wound. Nice granulation bed seen. Redness in right eye seems to have reduced and there is a dry dressing after CT aspiration done. About 100 cc of serous fluid was removed. Pending aspiration cultures. Continue with current ID recommendations for empiric IV antibiotics. 04/06/2021 No acute events overnight. Patient seen examined bedside. Working with physi sarabjit therapy and improved mentation. Complaining of right thigh pain. Reexamination of his right thigh shows increased erythema and tightness in the proximal thigh region. Asking for vascular surgery to reevaluate and ordering ultrasound of the right lower extremity. Pulses are nonpalpable. Distal lower extremity is warm to touch. No pain or pallor in the foot region. Patient's chart, labs, images were reviewed and discussed with RN 04/05/2021 No acute events overnight. Patient seen examined bedside. Sitting upright with PT. Mentation has improved. Erythema of his right lower extremity appears improved. Fluid collection does not seem to be a source of infection per vascular surgery. ID consulted for persistent fevers of 101.5. Persistent leukocytosis. Antibiotic switched to meropenem. Pending CT chest abdomen pelvis. Patient's chart, labs, images were reviewed and discussed with RN 04/04/2021 No acute events overnight. Patient seen examined bedside. Patient pulled out central line. Abscess cultures grew out Enterococcus, corded bacterium and Pseudomonas. Will DC vancomycin for now continue with IV cefepime. Patient seen bedside with mittens and confused. Not following commands. Patient's chart, labs, images were reviewed and discussed with RN 04/03 Patient evaluated examined at bedside. More alert today able to actually open his eyes to me. Continue antibiotics. Neuro consult. Vascular evaluation of right lower extremity. Discussed with bedside RN. 04/02 Patient evaluated examined at bedside. Notably more altered today patient would not really open his eyes when I was evaluating him. Continue antibiotics. Evaluation of right lower extremity. Plan discussed with bedside RN. Checking CT head. 04/01 Patient evaluated examined at bedside. Seems a bit altered said he was feeling "kind of like shit." On nasal cannula oxygen. Continue empiric antibiotics for lung infection possible cellulitis. Right lower extremity is quite tense erythematous and somewhat painful for the patient. Extensive surgical intervention previously on this leg but will try to check imaging today to eval for any acute processes. Could probably transfer out of ICU if needed. Plan discussed with bedside RN. Vitals/I&O Vitals/I&O: Vital Signs Date Time Temp Pulse Resp B/P (MAP) Pulse Ox O2 Delivery O2 Flow Rate FiO2 04/09/21 10:58 97.5 58 17 133/63 (86) 97 Room Air 97.5 I & O 04/08/21 04/08/21 04/09/21 15:00 23:00 07:00 Intake Total 236 ml 180 ml 480 ml Output Total 300 ml Balance 236 ml 180 ml 180 ml Physical Exam Physical Exam: GENERAL: Arousable, but not to his baseline, lethargic gentleman, not in any distress. VITAL SIGNS: Stable HEENT: Both pupils are round and reacting. No conjunctival lesion, no lesion in the mouth. NECK: Supple, no JVP, no lymphadenopathy. LUNGS: Clear. HEART: S1, S2, regular. ABDOMEN: Soft, nontender, no organomegaly. EXTREMITIES: No edema or cyanosis. SKIN: His right groin wound is clean, superficial. He does have a patch of rash under the left foot of unclear significance. Rest of the skin exam is unremarkable. Right thigh has swelling tenderness and probably fluid in it NEUROLOGIC: Awake alert able to communicate little bit better General: Alert, Cooperative, Other (Confused, nonverbal, awake, in no apparent distress. ) Heart: Regular rate, Normal S1, Normal S2 Lungs: Clear, Other Abdomen: Normal bowel sounds, Soft, No tenderness Extremities: Other (Left groin wound with some hyper granulation tissue and minimal surrounding fibrotic healing. There is no purulence, no probing, no undermining, no fluctuance. He has a large area of fluctuance medial to his distal incision on his thigh with moderate warmth and erythema. His incision is well-healed. He has a palpable DP pulse on the right foot. 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 No heel wounds) Labs Labs: Laboratory Tests Test 04/08/21 20:04 04/09/21 07:45 04/09/21 11:45 Glucose (Fingerstick) 96 mg/dL (70-99) 80 mg/dL (70-99) 84 mg/dL (70-99) Assessment and Plan Assessmemt and Plan Problems Medical Problems: (1) AMS (altered mental status) Status: Acute (2) Pneumonia Status: Acute (3) Severe sepsis Status: Acute Comment Review of Relevant I have reviewed the following items rachel (where applicable) has been applied. Justifications for Admission Other Justification Hypotension LAURO NGO MD Apr 09, 2021 13:25
--- NOTE | 2021-04-09 14:33 | PDOC ---
Provider Note Date of Service: DATE: 04/09/21 TIME: 14:32 Provider Note Vascular surgery follow-up: S: Patient without complaints. He is alert and awake. O: He is afebrile, vital signs stable White blood cell count is 10,000 Right thigh still mildly erythematous and indurated. Aspiration from the seroma surrounding the graft distally reveals no growth. No organisms seen, so far. Impression: #1 status post right femoropopliteal bypass graft with synthetic material. 2. Seroma around the distal anastomosis which was aspirated cultured and so far negative. Plan: #1 continue IV antibiotics and observation, from our standpoint Justifications for Admission Other Justification Hypotension LORIE BRAGA II, MD Apr 09, 2021 14:33
[2021-04-09 15:00] VITALS: BP 137/72
[2021-04-09 19:57] VITALS: BP 148/73
[2021-04-09] MEDS: diphenhydrAMINE HCL 25 MG CAPSULE PO PRN (21:22)
[2021-04-09] MEDS: ATORVASTATIN CALCIUM 40 MG TABLET. PO SCH (21:23)
[2021-04-09] MEDS: ENOXAPARIN 40 MG/0.4 ML SYRINGE. SQ SCH (21:24)
[2021-04-09 22:49] VITALS: BP 114/66
--- NOTE | 2021-04-09 23:00 | NUR ---
Pt's IV is red, warm and swollen and he complains of new tenderness in it. Contacted NSG Mopper for a new PIV. NSG Mopper was unsuccessful at starting new IV so order was placed for anesthesia stick. Awaiting anesthesia.
[2021-04-10] MEDS: IV DEXTROSE 5 %-0.45 % NACL 1,000 ML IV SCH ×3 (01:15→22:31)
[2021-04-10 02:28] VITALS: BP 132/61
--- NOTE | 2021-04-10 04:00 | NUR ---
Anesthesia in room attempting to start PIV on pt. Anesthesia was unsuccessful at IV start. Was notified that pt would need a PICC line for IV access. Discussed this with Nursing Team Assembly Line Machine Operator who is at bedside. Nursing Team Assembly Line Machine Operator stated that IV will have to wait until someone on the PICC team comes on shift today.
[2021-04-10] MEDS: MEROPENEM 500 MG in IV NORMAL SALINE 50ML 50 ML IV SCH ×3 (06:00→22:30)
[2021-04-10 07:00] VITALS: BP 129/67
[2021-04-10] MEDS: INSULIN LISPRO 300 UNITS/3 ML VIAL. SQ SCH ×3 (07:42→16:20)
--- NOTE | 2021-04-10 07:46 | PDOC ---
Infectious Disease Note Subjective Subjective Much more awake and able to communicate says he is feeling better ROS ROS No nausea vomiting diarrhea chest pain shortness of breath or fever Vital Sign Vital Signs Vital Signs Date Time Temp Pulse Resp B/P (MAP) Pulse Ox O2 Delivery O2 Flow Rate FiO2 04/10/21 07:00 99.5 61 20 129/67 (87) 98 Room Air 99.5 Physical Exam PHYSICAL EXAM GENERAL: Arousable, but not to his baseline, lethargic gentleman, not in any distress. VITAL SIGNS: Stable HEENT: Both pupils are round and reacting. No conjunctival lesion, no lesion in the mouth. NECK: Supple, no JVP, no lymphadenopathy. LUNGS: Clear. HEART: S1, S2, regular. ABDOMEN: Soft, nontender, no organomegaly. EXTREMITIES: No edema or cyanosis. SKIN: His right groin wound is clean, superficial. He does have a patch of rash under the left foot of unclear significance. Rest of the skin exam is unremarkable. Right thigh has swelling tenderness and probably fluid in it NEUROLOGIC: Awake alert able to communicate little bit better Labs Lab Laboratory Tests Test 04/09/21 11:45 04/09/21 17:07 04/09/21 20:44 04/10/21 07:29 Glucose (Fingerstick) 84 mg/dL (70-99) 86 mg/dL (70-99) 127 mg/dL (70-99) 77 mg/dL (70-99) Micro Microbiology 04/01/21 Gram Stain - Final, Resulted 04/01/21 Aerobic and Anaerobic Culture - Preliminary, Resulted Enterococcus Faecalis Corynebacterium Striatum Grp Pseudomonas Aeruginosa 03/31/21 Blood Culture - Final, Complete NO GROWTH AFTER 5 DAYS Objective Assessment IMPRESSION: 1. Fever, likely from the right thigh infected either hematoma or seroma Status post aspiration cultures so far negative 2. Encephalopathy. 3. Leukocytosis. 4. Right groin wound, which is clean and superficial, do not see any infection there. 5. Coronary artery disease. 6. Peripheral arterial disease. Plan Plan of Care Continue antibiotics Positive culture is from the superficial swab from the right groin where there is no infection Right thigh aspirate culture is negative so far Right thigh area is still significantly swollen and tender we will discussed with vascular surgery YEISON MAXWELL MD Apr 10, 2021 07:46
[2021-04-10] MEDS: LACTOBACILLUS RHAMNOSUS GG 1 CAPSULE. PO SCH ×2 (08:53→19:34)
[2021-04-10] MEDS: ASPIRIN 325 MG TABLET PO SCH (08:54)
[2021-04-10 10:39] VITALS: BP 123/66
--- NOTE | 2021-04-10 12:19 | PDOC ---
[facility] PROGRESS NOTE Date of Service DOS: DATE: 04/10/21 TIME: 12:17 Chief Complaint Chief Complaint Problem List: Right upper lobe bilateral infiltrates concerning for pneumonia, possible aspiration and possible gram-negative organisms Right posterior parietal acute on subacute infarct Acute metabolic and possible infectious encephalopathy Hemodynamic instability requiring fluid bolus and central line placement SHAVON due to vasomotor nephropathy ATN Lactic acidosis Hypomagnesemia Acute on chronic CHF exacerbation Microcytic anemia due to chronic inflammatory disease History of CHF with LVEF of 25% Hx of DM Hx of DVT Hx of HTN Hx of CAD Admit to hospitalist service for further management Neurology consult Continue empiric IV antibiotics --> Vanc cefepime Duplex ultrasound of the right lower extremity -> normal but will check CTA given clinical evaluation today Wound care consult Vasopressors as needed to maintain maps greater than 55 Continue judicious IV fluid replacement in the context of CHF Strict I's/O Monitor urine output closely Trend LA R ISS and Accu-Cheks Lovenox for DVT prophylaxis Protonix GI prophylaxis ADA diet CODE STATUS DNR Discussed with RN and SW Disposition inpatient management as above, ICU care DPOA: Sister History of Present Illness History of Present Illness 04/10/2021 No acute events overnight. Patient seen and examined bedside. Will attempt to place midline after losing IV. Otherwise patient's mentation is stable. AF and VSS. Continue with IV antibiotics. Awaiting finalization of aspirated cultures. Patient's chart, labs, images were reviewed and discussed with RN 04/09/2021 No acute events overnight. Patient seen examined bedside. Negative cultures to date for right thigh aspiration cultures. Low-grade fever of 99.8. Vital signs stable. Mentation is stable. Patient's chart, labs, images were reviewed and discussed with RN 04/08/2021 No acute events overnight. Patient seen examined bedside. Right thigh appears improved. AF and VSS. Electrolytes have normalized. Pending aspirate cultures. Patient will need to go to SNF at time of discharge. We will follow up on antibiotic course and timing. Patient's chart, labs, images were reviewed and discussed with RN 04/07/2021 No acute events overnight. Patient seen examined bedside. AF and VSS. Low normal blood pressures. Wound care at bedside and changing groin wound. Nice granulation bed seen. Redness in right eye seems to have reduced and there is a dry dressing after CT aspiration done. About 100 cc of serous fluid was remov ed. Pending aspiration cultures. Continue with current ID recommendations for empiric IV antibiotics. 04/06/2021 No acute events overnight. Patient seen examined bedside. Working with physical therapy and improved mentation. Complaining of right thigh pain. Reexamination of his right thigh shows increased erythema and tightness in the proximal thigh region. Asking for vascular surgery to reevaluate and ordering ultrasound of the right lower extremity. Pulses are nonpalpable. Distal lower extremity is warm to touch. No pain or pallor in the foot region. Patient's chart, labs, images were reviewed and discussed with RN 04/05/2021 No acute events overnight. Patient seen examined bedside. Sitting upright with PT. Mentation has improved. Erythema of his right lower extremity appears improved. Fluid collection does not seem to be a source of infection per vascular surgery. ID consulted for persistent fevers of 101.5. Persistent leukocytosis. Antibiotic switched to meropenem. Pending CT chest abdomen pelvis. Patient's chart, labs, images were reviewed and discussed with RN 04/04/2021 No acute events overnight. Patient seen examined bedside. Patient pulled out central line. Abscess cultures grew out Enterococcus, corded bacterium and Pseudomonas. Will DC vancomycin for now continue with IV cefepime. Patient seen bedside with mittens and confused. Not following commands. Patient's chart, labs, images were reviewed and discussed with RN 04/03 Patient evaluated examined at bedside. More alert today able to actually open his eyes to me. Continue antibiotics. Neuro consult. Vascular evaluation of right lower extremity. Discussed with bedside RN. 04/02 Patient evaluated examined at bedside. Notably more altered today patient would not really open his eyes when I was evaluating him. Continue antibiotics. Evaluation of right lower extremity. Plan discussed with bedside RN. Checking CT head. 04/01 Patient evaluated examined at bedside. Seems a bit altered said he was feeling "kind of like shit." On nasal cannula oxygen. Continue empiric antibiotics for lung infection possible cellulitis. Right lower extremity is quite tense erythematous and somewhat painful for the patient. Extensive surgical intervention previously on this leg but will try to check imaging today to eval for any acute processes. Could probably transfer out of ICU if needed. Plan discussed with bedside RN. Vitals/I&O Vitals/I&O: Vital Signs Date Time Temp Pulse Resp B/P (MAP) Pulse Ox O2 Delivery O2 Flow Rate FiO2 04/10/21 10:39 99.1 60 20 123/66 (85) 98 Room Air 99.1 I & O 04/09/21 04/09/21 04/10/21 15:00 23:00 07:00 Intake Total 1660 ml 360 ml 0 ml Output Total 200 ml Balance 1660 ml 160 ml 0 ml Physical Exam Physical Exam: GENERAL: Arousable, but not to his baseline, lethargic gentleman, not in any distress. VITAL SIGNS: Stable HEENT: Both pupils are round and reacting. No conjunctival lesion, no lesion in the mouth. NECK: Supple, no JVP, no lymphadenopathy. LUNGS: Clear. HEART: S1, S2, regular. ABDOMEN: Soft, nontender, no organomegaly. EXTREMITIES: No edema or cyanosis. SKIN: His right groin wound is clean, superficial. He does have a patch of rash under the left foot of unclear significance. Rest of the skin exam is unremarkable. Right thigh has swelling tenderness and probably fluid in it NEUROLOGIC: Awake alert able to communicate little bit better General: Alert, Cooperative, Other (Confused, nonverbal, awake, in no apparent distress. ) Heart: Regular rate, Normal S1, Normal S2 Lungs: Clear, Other Abdomen: Normal bowel sounds, Soft, No tenderness Extremities: Other (Left groin wound with some hyper granulation tissue and minimal surrounding fibrotic healing. There is no purulence, no probing, no undermining, no fluctuance. He has a large area of fluctuance medial to his di stal incision on his thigh with moderate warmth and erythema. His incision is well-healed. He has a palpable DP pulse on the right foot. 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 No heel wounds) Labs Labs: Laboratory Tests Test 04/09/21 17:07 04/09/21 20:44 04/10/21 07:29 04/10/21 11:12 Glucose (Fingerstick) 86 mg/dL (70-99) 127 mg/dL (70-99) 77 mg/dL (70-99) 63 mg/dL (70-99) Test 04/10/21 11:46 Glucose (Fingerstick) 82 mg/dL (70-99) Assessment and Plan Assessmemt and Plan Problems Medical Problems: (1) AMS (altered mental status) Status: Acute (2) Pneumonia Status: Acute (3) Severe sepsis Status: Acute Comment Review of Relevant I have reviewed the following items rachel (where applicable) has been applied. Justifications for Admission Other Justification Hypotension LAURO NGO MD Apr 10, 2021 12:18
[2021-04-10 14:56] VITALS: BP 141/73
[2021-04-10 19:07] VITALS: BP 141/67
[2021-04-10] MEDS: ATORVASTATIN CALCIUM 40 MG TABLET. PO SCH (19:34)
[2021-04-10] MEDS: ENOXAPARIN 40 MG/0.4 ML SYRINGE. SQ SCH (19:41)
[2021-04-10 22:48] VITALS: BP 140/70
[2021-04-11 03:07] VITALS: BP 134/71
[2021-04-11] MEDS: MEROPENEM 500 MG in IV NORMAL SALINE 50ML 50 ML IV SCH ×3 (05:02→21:00)
--- NOTE | 2021-04-11 06:53 | PDOC ---
Infectious Disease Note Subjective Subjective Patient is sleepy after he received Ativan ROS ROS No nausea vomiting diarrhea or fever Vital Sign Vital Signs Vital Signs Date Time Temp Pulse Resp B/P (MAP) Pulse Ox O2 Delivery O2 Flow Rate FiO2 04/11/21 03:07 98.9 66 16 134/71 (92) 99 Room Air 98.9 Physical Exam PHYSICAL EXAM GENERAL: Arousable, but not to his baseline, lethargic gentleman, not in any distress. VITAL SIGNS: Stable HEENT: Both pupils are round and reacting. No conjunctival lesion, no lesion in the mouth. NECK: Supple, no JVP, no lymphadenopathy. LUNGS: Clear. HEART: S1, S2, regular. ABDOMEN: Soft, nontender, no organomegaly. EXTREMITIES: No edema or cyanosis. SKIN: His right groin wound is clean, superficial. He does have a patch of rash under the left foot of unclear significance. Rest of the skin exam is unremarkable. Right thigh has swelling tenderness and probably fluid in it NEUROLOGIC: Awake alert able to communicate little bit better Labs Lab Laboratory Tests Test 04/10/21 07:29 04/10/21 11:12 04/10/21 11:46 04/10/21 16:53 Glucose (Fingerstick) 77 mg/dL (70-99) 63 mg/dL (70-99) 82 mg/dL (70-99) 65 mg/dL (70-99) Test 04/10/21 17:19 04/10/21 18:37 04/10/21: Glucose (Fingerstick) 69 mg/dL (70-99) 86 mg/dL (70-99) 97 mg/dL (70-99) Micro Microbiology 04/01/21 Gram Stain - Final, Resulted 04/01/21 Aerobic and Anaerobic Culture - Preliminary, Resulted Enterococcus Faecalis Corynebacterium Striatum Grp Pseudomonas Aeruginosa 03/31/21 Blood Culture - Final, Complete NO GROWTH AFTER 5 DAYS Objective Assessment IMPRESSION: 1. Fever, likely from the right thigh infected either hematoma or seroma Status post aspiration cultures so far negative 2. Encephalopathy. 3. Leukocytosis. 4. Right groin wound, which is clean and superficial, do not see any infection there. 5. Coronary artery disease. 6. Peripheral arterial disease. Plan Plan of Care Continue antibiotics Positive culture is from the superficial swab from the right groin where there is no infection Right thigh aspirate culture is negative so far Right thigh area is still significantly swollen and tender we will discussed with vascular surgery YEISON MAXWELL MD Apr 11, 2021 06:53
[2021-04-11 07:20] VITALS: BP 143/60
[2021-04-11] MEDS: ASPIRIN 325 MG TABLET PO SCH (08:00)
[2021-04-11] MEDS: INSULIN LISPRO 300 UNITS/3 ML VIAL. SQ SCH ×3 (08:00→17:00)
[2021-04-11] MEDS: IV DEXTROSE 5 %-0.45 % NACL 1,000 ML IV SCH ×3 (08:51→19:32)
[2021-04-11] MEDS: LACTOBACILLUS RHAMNOSUS GG 1 CAPSULE. PO SCH ×2 (08:52→19:26)
[2021-04-11 10:26] VITALS: BP 145/71
--- NOTE | 2021-04-11 13:22 | PDOC ---
[facility] PROGRESS NOTE Date of Service DOS: DATE: 04/11/21 TIME: 13:21 Chief Complaint Chief Complaint Problem List: Right upper lobe bilateral infiltrates concerning for pneumonia, possible aspiration and possible gram-negative organisms Right posterior parietal acute on subacute infarct Acute metabolic and possible infectious encephalopathy Hemodynamic instability requiring fluid bolus and central line placement SHAVON due to vasomotor nephropathy ATN Lactic acidosis Hypomagnesemia Acute on chronic CHF exacerbation Microcytic anemia due to chronic inflammatory disease History of CHF with LVEF of 25% Hx of DM Hx of DVT Hx of HTN Hx of CAD Admit to hospitalist service for further management Neurology consult Continue empiric IV antibiotics --> Vanc cefepime Duplex ultrasound of the right lower extremity -> normal but will check CTA given clinical evaluation today Wound care consult Vasopressors as needed to maintain maps greater than 55 Continue judicious IV fluid replacement in the context of CHF Strict I's/O Monitor urine output closely Trend LA R ISS and Accu-Cheks Lovenox for DVT prophylaxis Protonix GI prophylaxis ADA diet CODE STATUS DNR Discussed with RN and SW Disposition inpatient management as above, ICU care DPOA: Sister History of Present Illness History of Present Illness 04/11/2021 No acute events overnight. Patient seen examined bedside. Plan for PICC line placement today [facility] Continue with IV antibiotic and total course length per infectious disease. 04/10/2021 No acute events overnight. Patient seen and examined bedside. Will attempt to place midline after losing IV. Otherwise patient's mentation is stable. AF and VSS. Continue with IV antibiotics. Awaiting finalization of aspirated cultures. Patient's chart, labs, images were reviewed and discussed with RN 04/09/2021 No acute events overnight. Patient seen examined bedside. Negative cultures to date for right thigh aspiration cultures. Low-grade fever of 99.8. Vital signs stable. Mentation is stable. Patient's chart, labs, images were reviewed and discussed with RN 04/08/2021 No acute events overnight. Patient seen examined bedside. Right thigh appears improved. AF and VSS. Electrolytes have normalized. Pending aspirate cultures. Patient will need to go to SNF at time of discharge. We will follow up on antibiotic course and timing. Patient's chart, labs, images were reviewed and discussed with RN 04/07/2021 No acute events overnight. Patient seen examined bedside. AF and VSS. Low normal blood pressures. Wound care at bedside and changing groin wound. Nice granulation bed seen. Redness in right eye seems to have reduced and there is a dry dressing after CT aspiration done. About 100 cc of serous fluid was removed. Pending aspiration cultures. Continue with current ID recommendations for empiric IV antibiotics. 04/06/2021 No acute events overnight. Patient seen examined bedside. Working with physical therapy and improved mentation. Complaining of right thigh pain. Reexamination of his right thigh shows increased erythema and tightness in the proximal thigh region. Asking for vascular surgery to reevaluate and ordering ultrasound of the right lower extremity. Pulses are nonpalpable. Distal lower extremity is warm to touch. No pain or pallor in the foot region. Patient's chart, labs, images were reviewed and discussed with RN 04/05/2021 No acute events overnight. Patient seen examined bedside. Sitting upright with PT. Mentation has improved. Erythema of his right lower extremity appears impro gal. Fluid collection does not seem to be a source of infection per vascular surgery. ID consulted for persistent fevers of 101.5. Persistent leukocytosis. Antibiotic switched to meropenem. Pending CT chest abdomen pelvis. Patient's chart, labs, images were reviewed and discussed with RN 04/04/2021 No acute events overnight. Patient seen examined bedside. Patient pulled out central line. Abscess cultures grew out Enterococcus, corded bacterium and Pseudomonas. Will DC vancomycin for now continue with IV cefepime. Patient seen bedside with mittens and confused. Not following commands. Patient's chart, labs, images were reviewed and discussed with RN 04/03 Patient evaluated examined at bedside. More alert today able to actually open his eyes to me. Continue antibiotics. Neuro consult. Vascular evaluation of right lower extremity. Discussed with bedside RN. 04/02 Patient evaluated examined at bedside. Notably more altered today patient would not really open his eyes when I was evaluating him. Continue antibiotics. Evaluation of right lower extremity. Plan discussed with bedside RN. Checking CT head. 04/01 Patient evaluated examined at bedside. Seems a bit altered said he was feeling "kind of like shit." On nasal cannula oxygen. Continue empiric antibiotics for lung infection possible cellulitis. Right lower extremity is quite tense erythematous and somewhat painful for the patient. Extensive surgical intervention previously on this leg but will try to check imaging today to eval for any acute processes. Could probably transfer out of ICU if needed. Plan discussed with bedside RN. Vitals/I&O Vitals/I&O: Vital Signs Date Time Temp Pulse Resp B/P (MAP) Pulse Ox O2 Delivery O2 Flow Rate FiO2 04/11/21 10:26 98.4 67 16 145/71 (95) 95 Room Air 98.4 I & O 04/10/21 04/10/21 04/11/21 15:00 23:00 07:00 Intake Total 340 ml 480 ml 1100 ml Output Total 175 ml 250 ml Balance 340 ml 305 ml 850 ml Physical Exam Physical Exam: GENERAL: Arousable, but not to his baseline, lethargic gentleman, not in any distress. VITAL SIGNS: Stable HEENT: Both pupils are round and reacting. No conjunctival lesion, no lesion in the mouth. NECK: Supple, no JVP, no lymphadenopathy. LUNGS: Clear. HEART: S1, S2, regular. ABDOMEN: Soft, nontender, no organomegaly. EXTREMITIES: No edema or cyanosis. SKIN: His right groin wound is clean, superficial. He does have a patch of rash under the left foot of unclear significance. Rest of the skin exam is unremarkable. Right thigh has swelling tenderness and probably fluid in it NEUROLOGIC: Awake alert able to communicate little bit better General: Alert, Cooperative, Other (Confused, nonverbal, awake, in no apparent distress. ) Heart: Regular rate, Normal S1, Normal S2 Lungs: Clear, Other Abdomen: Normal bowel sounds, Soft, No tenderness Extremities: Other (Left groin wound with some hyper granulation tissue and minimal surrounding fibrotic healing. There is no purulence, no probing, no undermining, no fluctuance. He has a large area of fluctuance medial to his distal incision on his thigh with moderate warmth and erythema. His incision is well-healed. He has a palpable DP pulse on the right foot. Toe amputation in cisions on both feet are well-healed. No heel wounds) Labs Labs: Laboratory Tests Test 04/10/21 16:53 04/10/21 17:19 04/10/21 18:37 04/10/21 20:22 Glucose (Fingerstick) 65 mg/dL (70-99) 69 mg/dL (70-99) 86 mg/dL (70-99) 97 mg/dL (70-99) Test 04/11/21 11:25 Glucose (Fingerstick) 99 mg/dL (70-99) Assessment and Plan Assessmemt and Plan Problems Medical Problems: (1) AMS (altered mental status) Status: Acute (2) Pneumonia Status: Acute (3) Severe sepsis Status: Acute Comment Review of Relevant I have reviewed the following items rachel (where applicable) has been applied. Justifications for Admission Other Justification Hypotension LAURO NGO MD Apr 11, 2021 13:22
--- NOTE | 2021-04-11 13:22 | PDOC ---
Provider Note Date of Service: DATE: 04/11/21 TIME: 13:20 Provider Note Provider Note Lethargic on exam today. Does not participate in questioning. Right groin wound well healing with a small amount of hypertrophy of his granulation tissue, right medial thigh with erythema and mild amount of induration, no warmth. Incision well-healed without breakdown. Right DP 1+, left DP 2+, well-healed bilateral toe amputation sites Aspiration of right thigh fluid collection negative to date. Would continue antibiotics and will continue to follow right thigh erythema. Do not recommend graft explant at this time given negative cultures and overall patient status. Joy Guzman DO Justicifation of Admission Dx: Justifications for Admission: Justification of Admission Dx: Yes HI: Acute NSTEMI JOY GUZMAN DO Apr 11, 2021 13:22
[2021-04-11 14:19] VITALS: BP 140/72
[2021-04-11 19:25] VITALS: BP 165/67
[2021-04-11] MEDS: ATORVASTATIN CALCIUM 40 MG TABLET. PO SCH (19:26)
[2021-04-11] MEDS: ENOXAPARIN 40 MG/0.4 ML SYRINGE. SQ SCH (19:29)
[2021-04-11 23:05] VITALS: BP 145/80
[2021-04-12 02:50] VITALS: BP 137/78
[2021-04-12] MEDS: MEROPENEM 500 MG in IV NORMAL SALINE 50ML 50 ML IV SCH ×3 (05:11→21:42)
[2021-04-12] MEDS: ACETAMINOPHEN 325 MG TABLET. PO PRN (05:26)
[2021-04-12 06:04] LABS: BASO # 0.1 x10^3/uL (0.0-0.2); BASO % 1 % (0-3); EOS # 0.2 x10^3/uL (0.0-0.7); EOS % 3 % (0-3); HEMATOCRIT 27.5 % (39.0-53.0); HEMOGLOBIN 8.6 g/dL (13.0-17.5); LYMPH # 1.2 x10^3/uL (1.0-4.8); LYMPH % 16 % (24-48); MEAN CORPUSCULAR HEMOGLOBIN 25 pg (25-35); MEAN CORPUSCULAR HGB CONC 31 g/dL (31-37); MEAN CORPUSCULAR VOLUME 79 fL (79-100); MONO # 0.8 x10^3/uL (0.0-1.1); MONO % 11 % (0-9); NEUT # 5.2 x10^3/uL (1.8-7.7); NEUT % 69 % (31-73); PLATELET COUNT 440 x10^3/uL (140-400); RED BLOOD COUNT 3.47 x10^6/uL (4.30-5.70); RED CELL DISTRIBUTION WIDTH 18.4 % (11.5-14.5); WHITE BLOOD COUNT 7.5 x10^3/uL (4.0-11.0)
[2021-04-12 06:25] LABS: CALCIUM 7.1 mg/dL (8.5-10.1); CREATININE 1.6 mg/dL (0.7-1.3); GFR 43.6; MAGNESIUM 1.9 mg/dL (1.8-2.4); POTASSIUM 3.8 mmol/L (3.5-5.1)
[2021-04-12 07:38] VITALS: BP 121/58
[2021-04-12] MEDS: INSULIN LISPRO 300 UNITS/3 ML VIAL. SQ SCH ×3 (08:00→17:00)
[2021-04-12] MEDS: LACTOBACILLUS RHAMNOSUS GG 1 CAPSULE. PO SCH ×2 (08:10→21:41)
[2021-04-12] MEDS: ASPIRIN 325 MG TABLET PO SCH (08:10)
[2021-04-12 10:14] VITALS: BP 132/66
--- NOTE | 2021-04-12 12:48 | PDOC ---
Infectious Disease Note Subjective: Subjective Patient is sleepy after he received Ativan Vital Signs: Vital Signs Vital Signs Date Time Temp Pulse Resp B/P (MAP) Pulse Ox O2 Delivery O2 Flow Rate FiO2 04/12/21 10:14 98.2 55 18 132/66 (88) 98 Room Air 98.2 Physical Exam: PHYSICAL EXAM GENERAL: Arousable, but not to his baseline, lethargic gentleman, not in any distress. VITAL SIGNS: Stable HEENT: Both pupils are round and reacting. No conjunctival lesion, no lesion in the mouth. NECK: Supple, no JVP, no lymphadenopathy. LUNGS: Clear. HEART: S1, S2, regular. ABDOMEN: Soft, nontender, no organomegaly. EXTREMITIES: No edema or cyanosis. SKIN: His right groin wound is clean, superficial. He does have a patch of rash under the left foot of unclear significance. Rest of the skin exam is unremarkable. Right thigh has swelling tenderness and probably fluid in it NEUROLOGIC: Awake alert able to communicate little bit better Medications: Inpatient Meds: Medications reviewed. Labs: Lab Laboratory Tests Test 04/11/21 16:31 04/11/21 21:13 04/12/21 05:50 04/12/21 08:10 Glucose (Fingerstick) 100 mg/dL (70-99) 106 mg/dL (70-99) 90 mg/dL (70-99) White Blood Count 7.5 x10^3/uL (4.0-11.0) Red Blood Count 3.47 x10^6/uL (4.30-5.70) Hemoglobin 8.6 g/dL (13.0-17.5) Hematocrit 27.5 % (39.0-53.0) Mean Corpuscular Volume 79 fL (79-100) Mean Corpuscular Hemoglobin 25 pg (25-35) Mean Corpuscular Hemoglobin Concent 31 g/dL (31-37) Red Cell Distribution Width 18.4 % (11.5-14.5) Platelet Count 440 x10^3/uL (140-400) Neutrophils (%) (Auto) 69 % (31-73) Lymphocytes (%) (Auto) 16 % (24-48) Monocytes (%) (Auto) 11 % (0-9) Eosinophils (%) (Auto) 3 % (0-3) Basophils (%) (Auto) 1 % (0-3) Neutrophils # (Auto) 5.2 x10^3/uL (1.8-7.7) Lymphocytes # (Auto) 1.2 x10^3/uL (1.0-4.8) Monocytes # (Auto) 0.8 x10^3/uL (0.0-1.1) Eosinophils # (Auto) 0.2 x10^3/uL (0.0-0.7) Basophils # (Auto) 0.1 x10^3/uL (0.0-0.2) Sodium Level 135 mmol/L (136-145) Potassium Level 3.8 mmol/L (3.5-5.1) Chloride Level 105 mmol/L (98-107) Carbon Dioxide Level 19 mmol/L (21-32) Anion Gap 11 (6-14) Blood Urea Nitrogen 22 mg/dL (8-26) Creatinine 1.6 mg/dL (0.7-1.3) Estimated GFR (Cockcroft-Gault) 43.6 Glucose Level 92 mg/dL (70-99) Calcium Level 7.1 mg/dL (8.5-10.1) Magnesium Level 1.9 mg/dL (1.8-2.4) Test 04/12/21 12:09 Glucose (Fingerstick) 83 mg/dL (70-99) Objective: Assessment: 1. Fever resolved 2. Right thigh swelling ,either infected hematoma or seroma Status post aspiration cultures so far negative 2. Encephalopathy. 3. Leukocytosis. 4. Right groin wound, which is clean and superficial, do not see any infection there. 5. Coronary artery disease. 6. Peripheral arterial disease. Plan: Plan of Care Continue Merrem and linezolid Positive culture is from the superficial swab from the right groin where there is no infection Right thigh aspirate culture is negative so far Pt still had difficulty with ambulation Right thigh area is still significantly swollen and tender we will discussed with vascular surgery D/W JOY LOPEZ MD Apr 12, 2021 12:48
--- NOTE | 2021-04-12 14:05 | PDOC ---
[facility] PROGRESS NOTE Date of Service DOS: DATE: 04/12/21 TIME: 14:03 Chief Complaint Chief Complaint Problem List: Right upper lobe bilateral infiltrates concerning for pneumonia, possible aspiration and possible gram-negative organisms Right posterior parietal acute on subacute infarct Acute metabolic and possible infectious encephalopathy Hemodynamic instability requiring fluid bolus and central line placement SHAVON due to vasomotor nephropathy ATN Lactic acidosis Hypomagnesemia Acute on chronic CHF exacerbation Microcytic anemia due to chronic inflammatory disease History of CHF with LVEF of 25% Hx of DM Hx of DVT Hx of HTN Hx of CAD Admit to hospitalist service for further management Neurology consult Continue empiric IV antibiotics --> Vanc cefepime Duplex ultrasound of the right lower extremity -> normal but will check CTA given clinical evaluation today Wound care consult Vasopressors as needed to maintain maps greater than 55 Continue judicious IV fluid replacement in the context of CHF Strict I's/O Monitor urine output closely Trend LA R ISS and Accu-Cheks Lovenox for DVT prophylaxis Protonix GI prophylaxis ADA diet CODE STATUS DNR Discussed with RN and SW Disposition inpatient management as above, ICU care DPOA: Sister History of Present Illness History of Present Illness 04/12/2021 No acute events overnight. Patient seen examined bedside. Comfortable in bed after receiving Ativan. Resting comfortably. Will need to continue with meropenem and linezolid. PICC line placed and is pending SNF placement. 04/11/2021 No acute events overnight. Patient seen examined bedside. Plan for PICC line placement today [facility] Continue with IV antibiotic and total course length per infectious disease. 04/10/2021 No acute events overnight. Patient seen and examined bedside. Will attempt to place midline after losing IV. Otherwise patient's mentation is stable. AF and VSS. Continue with IV antibiotics. Awaiting finalization of aspirated cultures. Patient's chart, labs, images were reviewed and discussed with RN 04/09/2021 No acute events overnight. Patient seen examined bedside. Negative cultures to date for right thigh aspiration cultures. Low-grade fever of 99.8. Vital signs stable. Mentation is stable. Patient's chart, labs, images were reviewed and discussed with RN 04/08/2021 No acute events overnight. Patient seen examined bedside. Right thigh appears improved. AF and VSS. Electrolytes have normalized. Pending aspirate cultures. Patient will need to go to SNF at time of discharge. We will follow up on antibiotic course and timing. Patient's chart, labs, images were reviewed and discussed with RN 04/07/2021 No acute events overnight. Patient seen examined bedside. AF and VSS. Low normal blood pressures. Wound care at bedside and changing groin wound. Nice granulation bed seen. Redness in right eye seems to have reduced and there is a dry dressing after CT aspiration done. About 100 cc of serous fluid was removed. Pending aspiration cultures. Continue with current ID recommendations for empiric IV antibiotics. 04/06/2021 No acute events overnight. Patient seen examined bedside. Working with physical therapy and improved mentation. Complaining of right thigh pain. Reexamination of his right thigh shows increased erythema and tightness in the proximal thigh region. Asking for vascular surgery to reevaluate and ordering ultrasound of the right lower extremity. Pulses are nonpalpable. Distal lower extremity is warm to touch. No pain or pallor in the foot region. Patient's chart, labs, images were reviewed and discussed with RN 04/05/2021 No acute events overnight. Patient seen examined bedside. Sitting upright with PT. Mentation has improved. Erythema of his right lower extremity appears improved. Fluid collection does not seem to be a source of infection per vascular surgery. ID consulted for persistent fevers of 101.5. Persistent leuko cytosis. Antibiotic switched to meropenem. Pending CT chest abdomen pelvis. Patient's chart, labs, images were reviewed and discussed with RN 04/04/2021 No acute events overnight. Patient seen examined bedside. Patient pulled out central line. Abscess cultures grew out Enterococcus, corded bacterium and Pseudomonas. Will DC vancomycin for now continue with IV cefepime. Patient seen bedside with mittens and confused. Not following commands. Patient's chart, labs, images were reviewed and discussed with RN 04/03 Patient evaluated examined at bedside. More alert today able to actually open his eyes to me. Continue antibiotics. Neuro consult. Vascular evaluation of right lower extremity. Discussed with bedside RN. 04/02 Patient evaluated examined at bedside. Notably more altered today patient would not really open his eyes when I was evaluating him. Continue antibiotics. Ev aluation of right lower extremity. Plan discussed with bedside RN. Checking CT head. 04/01 Patient evaluated examined at bedside. Seems a bit altered said he was feeling "kind of like shit." On nasal cannula oxygen. Continue empiric antibiotics for lung infection possible cellulitis. Right lower extremity is quite tense erythematous and somewhat painful for the patient. Extensive surgical intervention previously on this leg but will try to check imaging today to eval for any acute processes. Could probably transfer out of ICU if needed. Plan discussed with bedside RN. Vitals/I&O Vitals/I&O: Vital Signs Date Time Temp Pulse Resp B/P (MAP) Pulse Ox O2 Delivery O2 Flow Rate FiO2 04/12/21 10:14 98.2 55 18 132/66 (88) 98 Room Air 98.2 I & O 04/11/21 04/11/21 04/12/21 15:00 23:00 07:00 Intake Total 0 ml 50 ml Output Total 175 ml 200 ml Balance -175 ml -150 ml Physical Exam Physical Exam: GENERAL: Arousable, but not to his baseline, lethargic gentleman, not in any distress. VITAL SIGNS: Stable HEENT: Both pupils are round and reacting. No conjunctival lesion, no lesion in the mouth. NECK: Supple, no JVP, no lymphadenopathy. LUNGS: Clear. HEART: S1, S2, regular. ABDOMEN: Soft, nontender, no organomegaly. EXTREMITIES: No edema or cyanosis. SKIN: His right groin wound is clean, superficial. He does have a patch of rash under the left foot of unclear significance. Rest of the skin exam is unremarkable. Right thigh has swelling tenderness and probably fluid in it NEUROLOGIC: Awake alert able to communicate little bit better General: Alert, Cooperative, Other (Confused, nonverbal, awake, in no apparent distress. ) Heart: Regular rate, Normal S1, Normal S2 Lungs: Clear, Other Abdomen: Normal bowel sounds, Soft, No tenderness Extremities: Other (Left groin wound with some hyper granulation tissue and minimal surrounding fibrotic healing. There is no purulence, no probing, no undermining, no fluctuance. He has a large area of fluctuance medial to his distal incision on his thigh with moderate warmth and erythema. His incision is well-healed. He has a palpable DP pulse on the right foot. 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 No heel wounds) Labs Labs: Laboratory Tests Test 04/11/21 16:31 04/11/21 21:13 04/12/21 05:50 04/12/21 08:10 Glucose (Fingerstick) 100 mg/dL (70-99) 106 mg/dL (70-99) 90 mg/dL (70-99) White Blood Count 7.5 x10^3/uL (4.0-11.0) Red Blood Count 3.47 x10^6/uL (4.30-5.70) Hemoglobin 8.6 g/dL (13.0-17.5) Hematocrit 27.5 % (39.0-53.0) Mean Corpuscular Volume 79 fL (79-100) Mean Corpuscular Hemoglobin 25 pg (25-35) Mean Corpuscular Hemoglobin Concent 31 g/dL (31-37) Red Cell Distribution Width 18.4 % (11.5-14.5) Platelet Count 440 x10^3/uL (140-400) Neutrophils (%) (Auto) 69 % (31-73) Lymphocytes (%) (Auto) 16 % (24-48) Monocytes (%) (Auto) 11 % (0-9) Eosinophils (%) (Auto) 3 % (0-3) Basophils (%) (Auto) 1 % (0-3) Neutrophils # (Auto) 5.2 x10^3/uL (1.8-7.7) Lymphocytes # (Auto) 1.2 x10^3/uL (1.0-4.8) Monocytes # (Auto) 0.8 x10^3/uL (0.0-1.1) Eosinophils # (Auto) 0.2 x10^3/uL (0.0-0.7) Basophils # (Auto) 0.1 x10^3/uL (0.0-0.2) Sodium Level 135 mmol/L (136-145) Potassium Level 3.8 mmol/L (3.5-5.1) Chloride Level 105 mmol/L (98-107) Carbon Dioxide Level 19 mmol/L (21-32) Anion Gap 11 (6-14) Blood Urea Nitrogen 22 mg/dL (8-26) Creatinine 1.6 mg/dL (0.7-1.3) Estimated GFR (Cockcroft-Gault) 43.6 Glucose Level 92 mg/dL (70-99) Calcium Level 7.1 mg/dL (8.5-10.1) Magnesium Level 1.9 mg/dL (1.8-2.4) Test 04/12/21 12:09 Glucose (Fingerstick) 83 mg/dL (70-99) Assessment and Plan Assessmemt and Plan Problems Medical Problems: (1) AMS (altered mental status) Status: Acute (2) Pneumonia Status: Acute (3) Severe sepsis Status: Acute Comment Review of Relevant I have reviewed the following items rachel (where applicable) has been applied. Justifications for Admission Other Justification Hypotension LAURO NGO MD Apr 12, 2021 14:05
[2021-04-12 14:23] VITALS: BP 123/70
[2021-04-12 19:30] VITALS: BP 141/71
[2021-04-12] MEDS: ATORVASTATIN CALCIUM 40 MG TABLET. PO SCH (21:41)
[2021-04-12] MEDS: ENOXAPARIN 40 MG/0.4 ML SYRINGE. SQ SCH (21:41)
[2021-04-12 22:45] VITALS: BP 142/75
[2021-04-13 03:35] VITALS: BP 131/59
[2021-04-13] MEDS: MEROPENEM 500 MG in IV NORMAL SALINE 50ML 50 ML IV SCH ×3 (05:56→22:36)
[2021-04-13 07:00] VITALS: BP 146/73
[2021-04-13] MEDS: INSULIN LISPRO 300 UNITS/3 ML VIAL. SQ SCH ×3 (07:47→17:00)
[2021-04-13] MEDS: ASPIRIN 325 MG TABLET PO SCH (08:00)
[2021-04-13] MEDS: LACTOBACILLUS RHAMNOSUS GG 1 CAPSULE. PO SCH ×2 (08:27→21:16)
--- NOTE | 2021-04-13 09:48 | PDOC ---
Provider Note Date of Service: DATE: 04/13/21 TIME: 09:45 Provider Note Provider Note Vascular S: Patient lethargic, did not participate in questions but he did follow commands O: VSS, afebrile Right groin wound well healing with a small amount of hypertrophy of his granulation tissue, right medial thigh with erythema and mild amount of induration and moderate swelling, no warmth. Incision well-healed without breakdown. Right DP 1+, left DP 2+, well-healed bilateral toe amputation sites Patient able to extend knee, not to full extension due to pain A/P: PVD s/p revascularization RLE and toe amputations. Aspiration of right thigh fluid collection negative to date. Would continue antibiotics and will continue to follow right thigh erythema. Do not recommend graft explant at this time given negative cultures and overall patient status stable. Continue to monitor thigh for any skin breakdown or drainage. Continue PT/OT Justicifation of Admission Dx: Justifications for Admission: Justification of Admission Dx: Yes ID: Acute NSTEMI JOSE F BAUMAN APRN Apr 13, 2021 09:48
[2021-04-13 11:00] VITALS: BP 142/76
--- NOTE | 2021-04-13 12:58 | PDOC ---
[facility] PROGRESS NOTE Date of Service DOS: DATE: 04/13/21 TIME: 12:56 Chief Complaint Chief Complaint Problem List: Right upper lobe bilateral infiltrates concerning for pneumonia, possible aspiration and possible gram-negative organisms Right posterior parietal acute on subacute infarct Acute metabolic and possible infectious encephalopathy Hemodynamic instability requiring fluid bolus and central line placement SHAVON due to vasomotor nephropathy ATN Lactic acidosis Hypomagnesemia Acute on chronic CHF exacerbation Microcytic anemia due to chronic inflammatory disease History of CHF with LVEF of 25% Hx of DM Hx of DVT Hx of HTN Hx of CAD Admit to hospitalist service for further management Neurology consult Continue empiric IV antibiotics --> Vanc cefepime Duplex ultrasound of the right lower extremity -> normal but will check CTA given clinical evaluation today Wound care consult Vasopressors as needed to maintain maps greater than 55 Continue judicious IV fluid replacement in the context of CHF Strict I's/O Monitor urine output closely Trend LA R ISS and Accu-Cheks Lovenox for DVT prophylaxis Protonix GI prophylaxis ADA diet CODE STATUS DNR Discussed with RN and SW Disposition inpatient management as above, ICU care DPOA: Sister History of Present Illness History of Present Illness /, cant walk with PT, was not able to stand or transfer, would need skilled he feels OK, but recall is terrible 04/12/2021 No acute events overnight. Patient seen examined bedside. Comfortable in bed after receiving Ativan. Resting comfortably. Will need to continue with meropenem and linezolid. PICC line placed and is pending SNF placement. 04/11/2021 No acute events overnight. Patient seen examined bedside. Plan for PICC line placement today and [facility] Continue with IV antibiotic and total course length per infectious disease. 04/10/2021 No acute events overnight. Patient seen and examined bedside. Will attempt to place midline after losing IV. Otherwise patient's mentation is stable. AF and VSS. Continue with IV antibiotics. Awaiting finalization of aspirated cultures. Patient's chart, labs, images were reviewed and discussed with RN 04/09/2021 No acute events overnight. Patient seen examined bedside. Negative cultures to date for right thigh aspiration cultures. Low-grade fever of 99.8. Vital signs stable. Mentation is stable. Patient's chart, labs, images were reviewed and discussed with RN 04/08/2021 No acute events overnight. Patient seen examined bedside. Right thigh appears improved. AF and VSS. Electrolytes have normalized. Pending aspirate cultures. Patient will need to go to SNF at time of discharge. We will follow up on antibiotic course and timing. Patient's chart, labs, images were reviewed and discussed with RN 04/07/2021 No acute events overnight. Patient seen examined bedside. AF and VSS. Low normal blood pressures. Wound care at bedside and changing groin wound. Nice granulation bed seen. Redness in right eye seems to have reduced and there is a dry dressing after CT aspiration done. About 100 cc of serous fluid was removed. Pending aspiration cultures. Continue with current ID recommendations for empiric IV antibiotics. 04/06/2021 No acute events overnight. Patient seen examined bedside. Working with phys ical therapy and improved mentation. Complaining of right thigh pain. Reexamination of his right thigh shows increased erythema and tightness in the proximal thigh region. Asking for vascular surgery to reevaluate and ordering ultrasound of the right lower extremity. Pulses are nonpalpable. Distal lower extremity is warm to touch. No pain or pallor in the foot region. Patient's chart, labs, images were reviewed and discussed with RN 04/05/2021 No acute events overnight. Patient seen examined bedside. Sitting upright with PT. Mentation has improved. Erythema of his right lower extremity appears improved. Fluid collection does not seem to be a source of infection per vascular surgery. ID consulted for persistent fevers of 101.5. Persistent leukocytosis. Antibiotic switched to meropenem. Pending CT chest abdomen pelvis. Patient's chart, labs, images were reviewed and discussed with RN 04/04/2021 No acute events overnight. Patient seen examined bedside. Patient pulled out central line. Abscess cultures grew out Enterococcus, corded bacterium and Pseudomonas. Will DC vancomycin for now continue with IV cefepime. Patient seen bedside with mittens and confused. Not following commands. Patient's chart, labs, images were reviewed and discussed with RN 04/03 Patient evaluated examined at bedside. More alert today able to actually open his eyes to me. Continue antibiotics. Neuro consult. Vascular evaluation of right lower extremity. Discussed with bedside RN. 04/02 Patient evaluated examined at bedside. Notably more altered today patient would not really open his eyes when I was evaluating him. Continue antibiotics. Evaluation of right lower extremity. Plan discussed with bedside RN. Checking CT head. 04/01 Patient evaluated examined at bedside. Seems a bit altered said he was feeling "kind of like shit." On nasal cannula oxygen. Continue empiric antibiotics for lung infection possible cellulitis. Right lower extremity is quite tense erythematous and somewhat painful for the patient. Extensive surgical intervention previously on this leg but will try to check imaging today to eval for any acute processes. Could probably transfer out of ICU if needed. Plan discussed with bedside RN. Vitals/I&O Vitals/I&O: Vital Signs Date Time Temp Pulse Resp B/P (MAP) Pulse Ox O2 Delivery O2 Flow Rate FiO2 04/13/21 11:00 97.3 61 18 142/76 (98) 97 Room Air 97.3 I & O 04/12/21 04/12/21 04/13/21 15:00 23:00 07:00 Intake Total 50 ml 320 ml Output Total 250 ml Balance 50 ml 70 ml Physical Exam Physical Exam: GENERAL: Arousable, but not to his baseline, lethargic gentleman, not in any distress. VITAL SIGNS: Stable HEENT: Both pupils are round and reacting. No conjunctival lesion, no lesion in the mouth. NECK: Supple, no JVP, no lymphadenopathy. LUNGS: Clear. HEART: S1, S2, regular. ABDOMEN: Soft, nontender, no organomegaly. EXTREMITIES: No edema or cyanosis. SKIN: His right groin wound is clean, superficial. He does have a patch of rash under the left foot of unclear significance. Rest of the skin exam is unremarkable. Right thigh has swelling tenderness and probably fluid in it NEUROLOGIC: Awake alert able to communicate little bit better General: Alert, Cooperative, Other (Confused, nonverbal, awake, in no apparent distress. ) Heart: Regular rate, Normal S1, Normal S2 Lungs: Clear, Other Abdomen: Normal bowel sounds, Soft, No tenderness Extremities: Other (Left groin wound with some hyper granulation tissue and minimal surrounding fibrotic healing. There is no purulence, no probing, no undermining, no fluctuance. He has a large area of fluctuance medial to his distal incision on his thigh with moderate warmth and erythema. His incision is well-healed. He has a palpable DP pulse on the right foot. 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 No heel wounds) Labs Labs: Laboratory Tests Test 04/12/21 16:39 04/12/21 20:49 04/13/21 07:44 04/13/21 11:53 Glucose (Fingerstick) 83 mg/dL (70-99) 84 mg/dL (70-99) 80 mg/dL (70-99) 84 mg/dL (70-99) Assessment and Plan Assessmemt and Plan Problems Medical Problems: (1) AMS (altered mental status) Status: Acute (2) Pneumonia Status: Acute (3) Severe sepsis Status: Acute Comment Review of Relevant I have reviewed the following items rachel (where applicable) has been applied. Justifications for Admission Other Justification Hypotension ADAMS DUONG MD Apr 13, 2021 12:57
--- NOTE | 2021-04-13 14:52 | PDOC ---
Infectious Disease Note Subjective: Subjective Patient without new complaints Denies any fever, chills, nausea, vomiting, diarrhea Right thigh swelling and pain has improved slightly Vital Signs: Vital Signs Vital Signs Date Time Temp Pulse Resp B/P (MAP) Pulse Ox O2 Delivery O2 Flow Rate FiO2 04/13/21 11:00 97.3 61 18 142/76 (98) 97 Room Air 97.3 Physical Exam: PHYSICAL EXAM GENERAL: Arousable, but not to his baseline, lethargic gentleman, not in any distress. VITAL SIGNS: Stable HEENT: Both pupils are round and reacting. No conjunctival lesion, no lesion in the mouth. NECK: Supple, no JVP, no lymphadenopathy. LUNGS: Clear. HEART: S1, S2, regular. ABDOMEN: Soft, nontender, no organomegaly. EXTREMITIES: No edema or cyanosis. SKIN: His right groin wound is clean, superficial. He does have a patch of rash under the left foot of unclear significance. Rest of the skin exam is unremarkable. Right thigh has swelling tenderness and probably fluid in it NEUROLOGIC: Awake alert able to communicate little bit better Medications: Inpatient Meds: Medications reviewed. Labs: Lab Laboratory Tests Test 04/12/21 16:39 04/12/21 20:49 04/13/21 07:44 04/13/21 11:53 Glucose (Fingerstick) 83 mg/dL (70-99) 84 mg/dL (70-99) 80 mg/dL (70-99) 84 mg/dL (70-99) Objective: Assessment: 1. Fever resolved 2. Right thigh swelling ,either infected hematoma or seroma Status post aspiration cultures so far negative 2. Encephalopathy. 3. Leukocytosis. 4. Right groin wound, which is clean and superficial, do not see any infection there. 5. Coronary artery disease. 6. Peripheral arterial disease.S/P Revascularization RLE and toe amputations. Plan: Plan of Care Vascular input noted Pt is ready for dc today per primary team Right thigh aspirate culture is negative so far Will change to p.o. Cipro and doxycycline, pt should not be given amiodarone and quietapine ( home meds while on abx) Positive culture is from the superficial swab from the right groin where there is no infection Discussed with Dr. White D/W JOY LOPEZ MD Apr 13, 2021 14:52
[2021-04-13 15:00] VITALS: BP 146/70
[2021-04-13] MEDS ORDERED: DOXY100T PO (15:26)
[2021-04-13] MEDS ORDERED: DOCU-109 PO (15:26)
[2021-04-13] MEDS ORDERED: OXYC1TAB15 PO (15:26)
[2021-04-13] MEDS ORDERED: ASPI325T8 PO (15:26)
[2021-04-13] MEDS ORDERED: CIPR500T94 PO (15:26)
--- NOTE | 2021-04-13 16:14 | NUR ---
SS received phone contact from pt's RN stating that pt is switched to PO medications. Pt accepted at [facility] and [facility]. Both facilities unable to admit until tomorrow. [facility] stated that pt could come at 1400 tomorrow and scheduled stretcher through [facility]. [facility] stated that they would follow up in the morning. Pt's RN notified.
[2021-04-13 19:10] VITALS: BP 160/79
[2021-04-13] MEDS: IV DEXTROSE 5 %-0.45 % NACL 1,000 ML IV SCH (21:09)
[2021-04-13] MEDS: ATORVASTATIN CALCIUM 40 MG TABLET. PO SCH (21:16)
[2021-04-13] MEDS: ENOXAPARIN 40 MG/0.4 ML SYRINGE. SQ SCH (21:17)
[2021-04-13 23:05] VITALS: BP 143/80
[2021-04-13] MEDS: ONDANSETRON PF 4 MG/2 ML VIAL. IVP PRN (23:23)
[2021-04-14 03:55] VITALS: BP 142/75
[2021-04-14] MEDS: IV DEXTROSE 5 %-0.45 % NACL 1,000 ML IV SCH (03:56)
--- NOTE | 2021-04-14 05:54 | PDOC ---
Infectious Disease Note Vital Signs: Vital Signs Vital Signs Date Time Temp Pulse Resp B/P (MAP) Pulse Ox O2 Delivery O2 Flow Rate FiO2 04/14/21 03:55 97.3 63 21 142/75 (97) 93 Room Air 97.3 04/13/21 20:00 2.0 Physical Exam: PHYSICAL EXAM Labs: Lab Laboratory Tests Test 04/13/21 07:44 04/13/21 11:53 04/13/21 16:42 04/13/21 20:44 Glucose (Fingerstick) 80 mg/dL (70-99) 84 mg/dL (70-99) 80 mg/dL (70-99) 75 mg/dL (70-99) Plan: Plan of Care JOY MAXWELL MD Apr 14, 2021 05:54
[2021-04-14] MEDS: MEROPENEM 500 MG in IV NORMAL SALINE 50ML 50 ML IV SCH (06:09)
[2021-04-14 07:00] VITALS: BP 144/79
[2021-04-14] MEDS: INSULIN LISPRO 300 UNITS/3 ML VIAL. SQ SCH (08:00)
--- NOTE | 2021-04-14 08:08 | PDOC ---
Provider Note Date of Service: DATE: 04/14/21 TIME: 08:04 Provider Note Provider Note S: Patient continues to endorse signficant pain in right thigh which causes difficulty ambulating. He is afebrile. Cultures have grown nothing from aspiration of the right leg seroma. O: GEN: More alert then my previous times visiting with him CV: +1 DP pulse on the right SKIN: The erythema is improved in the right thigh however the edema now extends to the groin and involves the entire circumference of the thigh. His previous toe amputation sites are all well healed RESP: nonlabored resp, symm expansion Neuro: No focal deficits MSK: limited knee flexion due to pain on the right A: Perigraft seroma, right lower extremity, s/p PTFE fem-pop bypass P: Agree with suppressive antibiotics although cultures were negative Explantation of the graft would lead to high risk of limb loss Thankfully his toe ulcerations have all healed with revascularization Recommend compressing the leg with kevan wrap to help alleviate swelling/discomfort from the foot to the upper thigh Justicifation of Admission Dx: Justifications for Admission: Justification of Admission Dx: Yes [place]: Acute NSTEMI ALMA ROMO MD Apr 14, 2021 08:08
[2021-04-14] MEDS ORDERED: IOHEXOL 350 MG/ML 100 ML VIAL. IV ONE (09:00)
[2021-04-14] MEDS ORDERED: CONTRAST GIVEN. MC PRN (09:00)
[2021-04-14] MEDS: LACTOBACILLUS RHAMNOSUS GG 1 CAPSULE. PO SCH (09:29)
[2021-04-14] MEDS: ASPIRIN 325 MG TABLET PO SCH (09:29)
[2021-04-14] MEDS ORDERED: IV NORMAL SALINE 1000ML BAG 1,000 ML IV ONE (09:45)
--- NOTE | 2021-04-14 10:13 | SNU/HH DC ---
DISCHARGE ORDERS DISCHARGE INFORMATION: DISCHARGE DATE: Apr 14, 2021 FINAL DIAGNOSIS Right upper lobe bilateral infiltrates - pneumonia, possible aspiration and possible gram-negative organisms Right posterior parietal acute on subacute infarct, CVA Acute metabolic and possible infectious encephalopathy Hx of PVD with current Perigraft seroma, right lower extremity, s/p PTFE fem- pop bypass Hemodynamic instability requiring fluid bolus and central line placement SHAVON due to vasomotor nephropathy ATN Lactic acidosis Hypomagnesemia Acute on chronic CHF exacerbation Microcytic anemia due to chronic inflammatory disease History of CHF with LVEF of 25% DM2 HTN CAD Hx of DVT Problems Medical Problems: (1) AMS (altered mental status) Status: Acute (2) Pneumonia Status: Acute (3) Severe sepsis Status: Acute CONDITION ON DISCHARGE: Stable CODE STATUS: Code Status: DNR/DNI LONGTERM: SNF STAY <30 DAYS: Yes POST DISCHARGE ORDERS: ACTIVITY ORDERS: Activity as tolerated WEIGHT BEARING STATUS: As tolerated BATHING ORDERS: No Tub Bath until see Dr. MERIDA AFTER DISCHARGE: Cardiac WOUND/INCISION CARE: Keep wound/cast CDI, Change dressing CHECKS AFTER DISCHARGE: CHECKS AFTER DISCHARGE: Check blood press - daily, Check blood sugar, ac/hs, Weigh Yourself Daily FOLLOW-UP: LAB ORDERS FOR FOLLOW-UP: CBC, chem 12, on 02/01 TREATMENT/EQUIPMENT ORDERS: ADAPTIVE EQUIPMENT NEEDED: None Physical Therapy For: Evalulation/Treatment Occupational Therapy For: Evaluation/Treatment DISCHARGE MEDICATIONS: Home Meds Active Scripts Ipratropium/Albuterol Sulfate (DUONEB 0.5-3(2.5) MG/3 ML) 3 Ml Ampul.neb, 3 ML NEB BID for shortnress of breath, #90 EACH Prov:ADAMS DUONG MD 01/31/21 Tamsulosin Hcl (FLOMAX) 0.4 Mg Cap.er.24h, 0.4 MG PO QHS for urine retention, #30 CAP.SR Prov:ADAMS DUONG MD 01/31/21 Olanzapine (OLANZAPINE) 5 Mg Tablet, 5 MG PO BID for mood stabilization, #60 TAB Prov:ADAMS DUONG MD 01/31/21 Quetiapine Fumarate (Quetiapine Fumarate ER) 50 Mg Tab.er.24h, 100 MG PO QHS for sleep, #30 TAB.SR Prov:ADAMS DUONG MD 01/31/21 Lactobacillus Rhamnosus Gg (CULTURELLE) 1 Each Cap.sprink, 1 CAP PO BID for on abx, #30 CAP Prov:ADAMS DUONG MD 01/31/21 Multivits,Ca,Minerals/Iron/Fa (THERA-M TABLET) 1 Each Tablet, 1 TAB PO DAILY for wounds, #30 TAB Prov:ADAMS DUONG MD 01/31/21 Fluoxetine Hcl (FLUOXETINE HCL) 20 Mg Capsule, 20 MG PO DAILY for home med, #30 CAP Prov:ADAMS DUONG MD 01/31/21 Cefdinir (CEFDINIR) 300 Mg Capsule, 300 MG PO BID for skin infection, #28 CAP Prov:ADAMS DUONG MD 01/31/21 Doxycycline Hyclate (DOXYCYCLINE HYCLATE) 100 Mg Tablet, 100 MG PO BID for skin infection, #28 TAB Prov:ADAMS DUONG MD 01/31/21 Metoprolol Succinate (METOPROLOL SUCCINATE ( XL )) 100 Mg Tab.er.24h, 150 MG PO DAILY for CHF for 30 Days, #45 TAB.SR 2 Refills Prov:BENITO OJEDA MD 11/17/20 Amiodarone Hcl (AMIODARONE HCL) 200 Mg Tablet, 200 MG PO DAILY for AFIB for 30 Days, #30 TAB 3 Refills Prov:LIANG CASTELAN [employer]ERA OPERATOR 06/30/20 Clopidogrel Bisulfate (CLOPIDOGREL) 75 Mg Tablet, 1 TAB PO DAILY, #90 TAB 1 Refill Prov:LIANG CASTELAN [employer] CAMERA OPERATOR 10/10/16 Atorvastatin Calcium (ATORVASTATIN CALCIUM) 40 Mg Tablet, 40 MG PO QHS for 30 Days, #30 TAB Prov:JACINTO LOVE MD 08/07/16 Reported Medications Gabapentin (GABAPENTIN) 300 Mg Capsule, 300 MG PO TID for NEUROGENIC PAIN, CAP 12/07/20 Apixaban (ELIQUIS) 5 Mg Tablet, 5 MG PO BID, TAB 10/19/17 Discontinued Scripts Oxycodone/Apap 5-325 (PERCOCET 5-325 MG TABLET ) 1 Each Tablet, 1 TAB PO PRN Q4HRS PRN for MODERATE-SEVERE PAIN, #1 TAB Prov:ADAMS DUONG MD 01/31/21 ADAMS DUONG MD Apr 14, 2021 10:13
--- NOTE | 2021-04-14 10:15 | PDOC3 ---
Discharge Summary Visit Information Date of Admission: Mar 31, 2021 Date of Discharge: Apr 14, 2021 Final Diagnosis Right upper lobe bilateral infiltrates - pneumonia, possible aspiration and possible gram-negative organisms Right posterior parietal acute on subacute infarct, CVA Acute metabolic and possible infectious encephalopathy Hx of PVD with current Perigraft seroma, right lower extremity, s/p PTFE fem- pop bypass Hemodynamic instability requiring fluid bolus and central line placement SHAVON due to vasomotor nephropathy ATN Lactic acidosis Hypomagnesemia Acute on chronic CHF exacerbation Microcytic anemia due to chronic inflammatory disease History of CHF with LVEF of 25% DM2 HTN CAD Hx of DVT Problems Medical Problems: (1) AMS (altered mental status) Status: Acute (2) Pneumonia Status: Acute (3) Severe sepsis Status: Acute Brief Hospital Course Allergies Allergies Coded Allergies Type Severity Reaction Last Updated Verified No Known Drug Allergies 02/27/17 No Vital Signs Vital Signs Date Time Temp Pulse Resp B/P (MAP) Pulse Ox O2 Delivery O2 Flow Rate FiO2 04/14/21 07:00 97.1 57 20 144/79 (100) 100 Room Air 97.1 04/13/21 20:00 2.0 Lab Results Laboratory Tests Test 04/12/21 12:09 04/12/21 16:39 04/12/21 20:49 04/13/21 07:44 Glucose (Fingerstick) 83 mg/dL (70-99) 83 mg/dL (70-99) 84 mg/dL (70-99) 80 mg/dL (70-99) Test 04/13/21 11:53 04/13/21 16:42 04/13/21 20:44 04/14/21 07:45 Glucose (Fingerstick) 84 mg/dL (70-99) 80 mg/dL (70-99) 75 mg/dL (70-99) 90 mg/dL (70-99) Laboratory Tests Test 04/13/21 11:53 04/13/21 16:42 04/13/21 20:44 04/14/21 07:45 Glucose (Fingerstick) 84 mg/dL (70-99) 80 mg/dL (70-99) 75 mg/dL (70-99) 90 mg/dL (70-99) Brief Hospital Course Mr. Bruno is a 65 old gentleman admit for altered mental status. Neuro workup ok right leg swelling and redness, seroma and poss infection, ID and Vasc f ollowed, aggressive abx, f/u outpateitn, ok to change abx to PO Discharge Information Condition at Discharge: Improved Follow Up: Weeks Disposition/Orders: D/C to Another Facility Scheduled Amiodarone Hcl (Amiodarone Hcl) 200 Mg Tablet, 200 MG PO DAILY for AFIB for 30 D ays, #30 Ref 3 Prescribed by: LIANG CASTELAN on 06/30/20 1219 Last Action: Reviewed on 04/01/21343 by GERMAIN CASE Apixaban (Eliquis) 5 Mg Tablet, 5 MG PO BID, (Reported) Entered as Reported by: URVASHI VANCE on 10/19/17 1311 Atorvastatin Calcium (Atorvastatin Calcium) 40 Mg Tablet, 40 MG PO QHS for 30 Days, #30 Prescribed by: JACINTO LOVE MD on 08/07/16 1121 Last Action: Reviewed on 04/01/21343 by GERMAIN CASE Cefdinir (Cefdinir) 300 Mg Capsule, 300 MG PO BID for skin infection, #28 Prescribed by: ADAMS DUONG on 01/31/21 1153 Clopidogrel Bisulfate (Clopidogrel) 75 Mg Tablet, 1 TAB PO DAILY, #90 Ref 1 Prescribed by: CHUY FLEMING on 10/12/16 1610 Last Action: Reviewed on 04/01/21 0336 by GERMAIN CASE Doxycycline Hyclate (Doxycycline Hyclate) 100 Mg Tablet, 100 MG PO BID for skin infection, #28 Prescribed by: ADAMS DUONG on 01/31/21 1153 Fluoxetine Hcl (Fluoxetine Hcl) 20 Mg Capsule, 20 MG PO DAILY for home med, #30 Prescribed by: ADAMS DUONG on 01/31/21 1153 Last Action: Reviewed on 04/01/21343 by GERMAIN CASE Gabapentin (Gabapentin) 300 Mg Capsule, 300 MG PO TID for NEUROGENIC PAIN, (Reported) Entered as Reported by: BRENDA HI on 12/07/20 8761 Last Action: Reviewed on 04/01/21343 by GERMAIN CASE Ipratropium/Albuterol Sulfate (Duoneb 0.5-3(2.5) Mg/3 Ml) 3 Ml Ampul.neb, 3 ML NEB BID for shortnress of breath, #90 Prescribed by: ADAMS UDONG on 01/31/211152 Lactobacillus Rhamnosus Gg (Culturelle) 1 Each Cap.sprink, 1 CAP PO BID for on abx, #30 Prescribed by: ADAMS DUONG on 01/31/21 115 Metoprolol Succinate (Metoprolol Succinate ( Xl )) 100 Mg Tab.er.24h, 150 MG PO DAILY for CHF for 30 Days, #45 Ref 2 Prescribed by: BENITO OJEDA MD on 11/17/20 1458 Last Action: Reviewed on 04/01/21343 by EGRMAIN CASE Multivits,Ca,Minerals/Iron/Fa (Thera-M Tablet) 1 Each Tablet, 1 TAB PO DAILY for wounds, #30 Prescribed by: ADAMS DUONG on 01/31/211152 Olanzapine (Olanzapine) 5 Mg Tablet, 5 MG PO BID for mood stabilization, #60 Prescribed by: ADAMS DUONG on 01/31/211152 Last Action: Reviewed on 04/01/21343 by GERMAIN CASE Quetiapine Fumarate (Quetiapine Fumarate ER) 50 Mg Tab.er.24h, 100 MG PO QHS for sleep, #30 Prescribed by: ADAMS DUONG on 01/31/211152 Tamsulosin Hcl (Flomax) 0.4 Mg Cap.er.24h, 0.4 MG PO QHS for urine retention, #30 Prescribed by: ADAMS DUONG on 01/31/211152 Last Action: Reviewed on 04/01/21343 by GERMAIN CASE Discontinued Medications Oxycodone/Apap 5-325 (Percocet 5-325 Mg Tablet ) 1 Each Tablet, 1 TAB PO PRN Q4HRS PRN for MODERATE-SEVERE PAIN, #1 Discontinued Reason: Prescription changed Prescribed by: AADMS DUONG on 01/31/211152 Last Action: Reviewed on 04/01/21343 by GERMAIN CASE Patient Instructions Patient Instructions to [email or web address] 34 minutes face to face f/u vasculcar, CT angio before DC Justicifation of Admission Dx: Justifications for Admission: Justification of Admission Dx: Yes [place]: Acute NSTEMI ADAMS DUONG MD Apr 14, 2021 10:15
[2021-04-14 11:00] VITALS: BP 165/84
--- NOTE | 2021-04-14 11:31 | RAD ---
CT angiography of the right lower extremity 04/14/2021 INDICATION: Severe peripheral vascular disease. Concern for infected right lower extremity femoropopl iteal bypass graft. COMPARISON STUDY: CT angiography of the right lower extremity April 01, 2021. TECHNIQUE: Multidetector CT imaging of the right lower extremity was performed following the administ ration of contrast. 3-D reconstructions of right pelvic and lower extremity vasculature were created on an workstation and reviewed. There is severe diffuse peripheral vascular disease. No evidence of abdominal aortic aneurysm is seen . Visualized renal arteries are patent. Visualized DARBY is small but patent. Right common iliac artery is circumferentially calcified and patent. Right internal iliac artery whic h is mild proximal stenosis but is patent. Right external iliac artery demonstrates mild proximal vani nosis. Proximal right common femoral artery is patent. There is a right-sided femoropopliteal bypass graft. The proximal anastomosis is widely patent. The n ative profunda artery remains patent. [place] SFA occluded shortly beyond its origin. The bypass graft is patent. The distal anastomosis with the [id number] popliteal artery is patent. The popliteal artery is heavily calcified with areas of minimal narrowing but otherwise patent. The peroneal artery is patent to the ankle. The anterior tibial artery is patent and the dorsalis pedis artery is patent . Posterior tibial artery occludes in the mid leg. There is diffuse subcutaneous edema surrounding the pelvis and right upper extremity. Significant ind uration is seen underlying the right groin incision site. Associated adenopathy noted. Definitive abs cess or fluid pocket is not seen, though phlegmonous collection in the right groin anterior to the by pass cannot be excluded. There is a rim-enhancing fluid collection surrounding the more distal bypass from the medial mid thigh to approximately 8 cm above the knee. This fluid appears to have recurred from prior aspiration. No hemodynamically significant aortoiliac stenosis appears be present on the left. Small nonflow limi ting dissection is seen in the left common femoral artery. Note that patient's left-sided bypass shawanda t appears to be patent. Occluded stents noted in the left SFA. No acute osseous changes are identified. Amputation of the first and second toe noted. Small amount o f free fluid is seen in the pelvis. Fluid in the pelvis. Fluid noted in the scrotum. Catheter noted w ithin the bladder. Solid-appearing mass in the right kidney measuring 2.4 cm is seen. Finding remains concerning for a s olid renal neoplasm, but similar to most recent comparison studies. IMPRESSION: 1. Anasarca with continued significant edema and induration throughout the pelvis and proximal right lower extremity. There is prominent inflammatory changes or possible phlegmon anterior to the proxima l anastomosis of the femoropopliteal bypass graft without definitive abscess or loculated fluid colle ction. Bypass graft remains patent. There is a persistent large rim-enhancing fluid collection surrou nding the mid and distal bypass graft. 2. The distal popliteal, peroneal, anterior tibial, dorsalis pedis arteries remain patent. Posterior tibial artery is occluded in the mid leg. 3. Other chronic changes are grossly stable including a 2.4 cm mass in the right kidney concerning fo r possible solid renal neoplasm. Further workup, when clinically feasible recommended. CT DOSING PQRS STATEMENT: One or more of the following individualized dose reduction techniques were utilized for this examinat ion: 1. Automated exposure control 2. Adjustment of the mA and/or kV according to patient size 3. Use of iterative reconstruction technique Electronically signed by: Luke Jackson MD (04/14/2021 11:29 AM) [id number]
[2021-04-20] MEDS ORDERED: GABA600T7 PO (11:06)
[2021-04-20] MEDS ORDERED: METO-247 PO (11:06)
[2021-04-20] MEDS ORDERED: CEFD300C PO (11:06)
[2021-04-20] MEDS ORDERED: AMIO200T53 PO (11:06)
[2021-04-20] MEDS ORDERED: HALO2ORA3 PO (11:06)
[2021-04-20] MEDS ORDERED: IPRA3AMP29 NEB (11:06)
[2021-04-20] MEDS ORDERED: LACT1CAP6 PO (11:06)
[2021-04-20] MEDS ORDERED: CLOP75TA PO (11:06)
[2021-04-20] MEDS ORDERED: QUET100T4 PO (11:06)
[2021-04-20] MEDS ORDERED: OLAN5TAB67 PO (11:06)
[2021-04-20] MEDS ORDERED: FLUO20CA22 PO (11:06)
== END 2021-04-14 13:50 | DRG 871 ==
LOC: ER 14:07 → 1 WEST ICU 16:44 → 6 SOUTH 04-03 23:16
PROVIDERS: ADMIT Internal Medicine; ATTEND Internal Medicine
PROC: 02H633Z Insertion of Infusion Device into Right Atrium, Percutaneous Approach (ICD-10-PCS; 2021-03-31)
PROC: B548ZZA Ultrasonography of Superior Vena Cava, Guidance (ICD-10-PCS; 2021-03-31)
PROC: B41F1ZZ Fluoroscopy of Right Lower Extremity Arteries using Low Osmolar Contrast (ICD-10-PCS; 2021-04-01)
PROC: 0Y9 Anatomical Regions, Lower Extremities, Drainage (ICD-10-PCS; principal; 2021-04-07)
PROC: B41F1ZZ Fluoroscopy of Right Lower Extremity Arteries using Low Osmolar Contrast (ICD-10-PCS; 2021-04-14)
DX: A41.9 Sepsis, unspecified organism (principal); N17.0 Acute kidney failure with tubular necrosis; G93.41 Metabolic encephalopathy; I63.9 Cerebral infarction, unspecified; J69.0 Pneumonitis due to inhalation of food and vomit; J15.6 Pneumonia due to other Gram-negative bacteria; I13.0 Hypertensive heart and chronic kidney disease with heart failure and stage 1 through stage 4 chronic kidney disease, or unspecified chronic kidney disease; L76.34 Postprocedural seroma of skin and subcutaneous tissue following other procedure; L03.90 Cellulitis, unspecified; B95.2 Enterococcus as the cause of diseases classified elsewhere; D50.9 Iron deficiency anemia, unspecified; D63.8 Anemia in other chronic diseases classified elsewhere; E11.22 Type 2 diabetes mellitus with diabetic chronic kidney disease; Z66 Do not resuscitate; E11.40 Type 2 diabetes mellitus with diabetic neuropathy, unspecified; E11.51 Type 2 diabetes mellitus with diabetic peripheral angiopathy without gangrene; E78.00 Pure hypercholesterolemia, unspecified; E78.5 Hyperlipidemia, unspecified; E83.42 Hypomagnesemia; I25.10 Atherosclerotic heart disease of native coronary artery without angina pectoris; Z20.822 Contact with and (suspected) exposure to COVID-19; I25.2 Old myocardial infarction; I48.91 Unspecified atrial fibrillation; I50.9 Heart failure, unspecified; I65.23 Occlusion and stenosis of bilateral carotid arteries; Y83.8 Other surgical procedures as the cause of abnormal reaction of the patient, or of later complication, without mention of misadventure at the time of the procedure; N18.9 Chronic kidney disease, unspecified; N40.0 Benign prostatic hyperplasia without lower urinary tract symptoms; R13.10 Dysphagia, unspecified; R65.20 Severe sepsis without septic shock; M25.511 Pain in right shoulder; B96.5 Pseudomonas (aeruginosa) (mallei) (pseudomallei) as the cause of diseases classified elsewhere; F41.9 Anxiety disorder, unspecified; M19.90 Unspecified osteoarthritis, unspecified site; Z86.718 Personal history of other venous thrombosis and embolism; Z87.11 Personal history of peptic ulcer disease; Z87.442 Personal history of urinary calculi; Z87.828 Personal history of other (healed) physical injury and trauma; Z95.1 Presence of aortocoronary bypass graft; Z95.5 Presence of coronary angioplasty implant and graft; Z89.422 Acquired absence of other left toe(s); Z89.421 Acquired absence of other right toe(s)
CPT/HCPCS: 10005; 36415; 36556; 36569; 70450; 70551; 71045; 71260; 73030; 73706; 74177; 80048; 80053; 80061; 80202; 81001; 82140; 82962; 83605; 83735; 83880; 84100; 84145; 84484; 85007; 85025; 87040; 87075; 87077; 87186; 87428; 87493; 93005; 93306; 93880; 93926; 96361; 96365; 96367; 96368; C1892; G0480; J0692; J1200; J1650; J2020; J2060; J2185; J2405; J2543; J3370; J3475; J3480; J3490; J7030; J7040; J7042; J7050; J7060; P9612; Q9967; U0003; 92526-GN; 97110-GO; 97116-GP; 97530-GO; 97530-GP; 97535-GO; 99291-25; C8929; G0378; Q0163

== ENCOUNTER 2021-04-27 05:46 | Inpatient (IN) | payer MEDICARE ==
[~2021-04-27] VITALS: Ht 175.3 cm; Wt 98.4 kg
[2021-04-27] VITALS (14 sets, daily range): BP systolic 78–115; BP diastolic 43–62
[~2021-04-27 05:46] MED LIST changes: +ASPI325T8 PO; +CIPR500T94 PO; +DOCU-109 PO; +HALO2ORA3 PO; +LACT1CAP6 PO; +QUET100T4 PO
[2021-04-27] MEDS ORDERED: HYDROmorphone 2 MG/ML INJ. IVP PRN (06:00)
[2021-04-27] MEDS ORDERED: PROCHLORPERAZINE 10 MG/2 ML VIAL. IVP PRN (06:00)
[2021-04-27] MEDS ORDERED: MORPHINE SULFATE 2 MG/ML INJ. IVP PRN (06:00)
[2021-04-27] MEDS ORDERED: IV RINGERS,LACTATED 1000ML 1,000 ML IV SCH (06:00)
[2021-04-27] MEDS ORDERED: fentaNYL PF VIAL 100 MCG/2 ML VIAL IVP PRN ×2 (06:00)
[2021-04-27] MEDS ORDERED: SURGICEL FIBRILLAR 1X2 EACH. ONE (06:55)
[2021-04-27] MEDS ORDERED: PROTAMINE 50 MG/5 ML VIAL. IV ONE (06:55)
[2021-04-27] MEDS ORDERED: IOHEXOL 300 MG/ML 50 ML VIAL. ONE (06:55)
[2021-04-27 07:06] LABS: BASO # 0.1 x10^3/uL (0.0-0.2); BASO % 1 % (0-3); EOS # 0.4 x10^3/uL (0.0-0.7); EOS % 5 % (0-3); HEMATOCRIT 26.7 % (39.0-53.0); HEMOGLOBIN 8.2 g/dL (13.0-17.5); LYMPH # 1.2 x10^3/uL (1.0-4.8); LYMPH % 15 % (24-48); MEAN CORPUSCULAR HEMOGLOBIN 25 pg (25-35); MEAN CORPUSCULAR HGB CONC 31 g/dL (31-37); MEAN CORPUSCULAR VOLUME 82 fL (79-100); MONO # 0.9 x10^3/uL (0.0-1.1); MONO % 11 % (0-9); NEUT # 5.3 x10^3/uL (1.8-7.7); NEUT % 68 % (31-73); PLATELET COUNT 305 x10^3/uL (140-400); RED BLOOD COUNT 3.28 x10^6/uL (4.30-5.70); RED CELL DISTRIBUTION WIDTH 19.4 % (11.5-14.5); WHITE BLOOD COUNT 7.8 x10^3/uL (4.0-11.0)
--- NOTE | 2021-04-27 07:07 | PDOC ---
Provider Note Date of Service: DATE: 04/27/21 TIME: 07:03 Provider Note Provider Note Mr. Bruno is a 65M w/ PAD s/p RLE fem-pop with PTFE in 01/09 and toe amputation b/l for gangrene. He developed right groin breakdown and ultimately underwent debridement, sartorius flap and wound vac placement. He has recovered well from this overall, but has since developed a fluid collection at the distal anastomosis. There was overlying erythema and he exhibited some signs of sepsis, so despite negative cultures from the fluid, suspicion for graft infection remains high. He presents today for washout, possible revision and wound vac placement. We discussed the risks and benefits of the procedure, including the risk of delayed wound healing, graft thrombosis, infection, bleeding, cardiopulmonary compromise and . He is understanding of these risks and wishes to proceed with surgery today. He will be admitted post-operatively. Joy Guzman DO Justicifation of Admission Dx: Justifications for Admission: Justification of Admission Dx: Yes [place]: Acute NSTEMI JOY GUZMAN DO Apr 27, 2021 07:07
[2021-04-27] MEDS ORDERED: ETOMIDATE 20 MG/10 ML VIAL. IV ONE (07:08)
[2021-04-27] MEDS ORDERED: ONDANSETRON PF 4 MG/2 ML VIAL. ONE (07:08)
[2021-04-27] MEDS ORDERED: PROPOFOL 10 MG/ML (20ML) VIAL. IV ONE (07:08)
[2021-04-27] MEDS ORDERED: DEXAMETHASONE SOD PHOS 4 MG/ML VIAL ONE (07:08)
[2021-04-27] MEDS ORDERED: fentaNYL PF VIAL 100 MCG/2 ML VIAL ONE (07:08)
[2021-04-27] MEDS ORDERED: SEVOFLURANE > 120 MINUTES. IH ONE (07:08)
[2021-04-27] MEDS ORDERED: LIDOCAINE 2% PF 5 ML VIAL. ONE (07:08)
[2021-04-27] MEDS ORDERED: SUCCINYLCHOLINE 200 MG/10 ML VIAL. ONE (07:09)
[2021-04-27 07:12] LABS: CREATININE 1.8 mg/dL (0.7-1.3); GFR 38.1; POTASSIUM 4.8 mmol/L (3.5-5.1)
[2021-04-27] MEDS ORDERED: ROCURONIUM 50 MG/5 ML VIAL. ONE (07:24)
[2021-04-27] MEDS ORDERED: VASOPRESSIN 20 UNIT/ML VIAL. ONE (07:26)
[2021-04-27] MEDS: HEPARIN SODIUM 5,000 UNIT in IV NORMAL SALINE 500ML BAG 500 ML IRR ONE ×2 (08:23→08:25)
[2021-04-27] MEDS ORDERED: KETAMINE HCL IN NACL, ISO-OSM 50 MG/5 ML SYRINGE ONE (08:29)
[2021-04-27] MEDS ORDERED: SUGAMMADEX SODIUM 200 MG/2 ML VIAL. IVP ONE (09:00)
--- NOTE | 2021-04-27 09:44 | PDOC4 ---
Operative Note Operative Note Date of procedure: 04/27/2021 Preoperative diagnosis: Right lower extremity postoperative wound infection Postoperative diagnosis: Same Procedure: #1 right lower extremity wound irrigation and debridement #2 right lower extremity sartorius flap #3 wound VAC placement 15 x 6 x 4 cm Primary Surgeon: Joy Guzman DO Automation Technician: Muna Hyatt MD Complications: none Implants: none Drains: wound vac Specimens removed: cultures Anesthesia: General EBL: 50 cc Indications: 65M w/ RLE fem-pop bypass with evidence of possible infection, here for washout and flap, wound vac. Risks, benefits and alternatives explained in detail including the risk of graft loss, limb loss, delayed wound healing, cardiopulmonary compromise and . Informed consent obtained. Description of procedure: After informed consent was obtained, the patient was brought into the operating room and placed in the supine possition on the table. General anesthesia induced. A timeout was performed confirming correct patient, positioning, procedure, allergies, and antibiotics. The patient was prepped and draped in the usual sterile fashion with the right lower extremity exposed. An incision was made overlying the above-knee popliteal incision. This was carried down to the level of the graft. There was fluid around the graft that was cloudy in appearance. There was also evidence of old purulent material and fat necrosis within the pocket. Specimens and fluid were taken for culture. The tissue surrounding the graft including the sartorius muscle distally was completely mobilized and hemostasis was achieved. The wound was then irrigated with pulse lavage and ancef irrigation. The sartorius was then approximated to the vastus medialis with interrupted figure of 8 2-0 monocryl. The superficial aspect of the wound was again irrigated. A wound vac was placed. The wound measurements following closure of the deep tissue was 15x6x4 cm. The patient tolerated the procedure well, was extubated in the OR and transferred to the recovery area in stable condition. All sponge and needle counts were reported as correct at the end of the case. I was present and scrubbed throughout the duration of the procedure. DO MARYANNE Szymasnki KARA M DO Apr 27, 2021 09:44
[2021-04-27] MEDS ORDERED: HALOPERIDOL 2 MG/ML ORAL.CONC. PO PRN (10:30)
[2021-04-27] MEDS ORDERED: DOCUSATE SODIUM 100 MG CAPSULE. PO PRN (10:30)
[2021-04-27] MEDS ORDERED: VANCOMYCIN PER PHARMACY MC PRN (10:30)
[2021-04-27] MEDS ORDERED: PIP/TAZO PER PHARMACY MC PRN (10:30)
[2021-04-27] MEDS ORDERED: VANCOMYCIN 1.75 GM in IV NORMAL SALINE 500ML BAG 500 ML IV ONE (11:45)
[2021-04-27] MEDS ORDERED: ALBUTEROL SULFATE 2.5 MG/3 ML NEBU. NEB PRN (11:45)
[2021-04-27] MEDS: FLUoxetine HCL 20 MG CAPSULE PO SCH (12:00)
[2021-04-27] MEDS ORDERED: PIPERACILLIN/TAZOBACTAM 3.375 GM in IV NORMAL SALINE 50ML 50 ML IV SCH (12:00)
[2021-04-27] MEDS: OLANZapine 5 MG TABLET PO SCH ×2 (12:00→20:34)
[2021-04-27] MEDS: AMIODARONE HCL 200 MG TABLET. PO SCH (12:00)
[2021-04-27 12:48] LABS: BASO # 0.1 x10^3/uL (0.0-0.2); BASO % 1 % (0-3); EOS # 0.2 x10^3/uL (0.0-0.7); EOS % 3 % (0-3); HEMATOCRIT 24.1 % (39.0-53.0); HEMOGLOBIN 7.4 g/dL (13.0-17.5); LYMPH % 14 % (24-48); MEAN CORPUSCULAR HEMOGLOBIN 25 pg (25-35); MEAN CORPUSCULAR HGB CONC 31 g/dL (31-37); MEAN CORPUSCULAR VOLUME 81 fL (79-100); MONO # 0.8 x10^3/uL (0.0-1.1); MONO % 11 % (0-9); NEUT # 5.2 x10^3/uL (1.8-7.7); NEUT % 71 % (31-73); PLATELET COUNT 268 x10^3/uL (140-400); RED BLOOD COUNT 2.98 x10^6/uL (4.30-5.70); RED CELL DISTRIBUTION WIDTH 19.1 % (11.5-14.5); WHITE BLOOD COUNT 7.4 x10^3/uL (4.0-11.0)
--- NOTE | 2021-04-27 12:56 | PDOC2 ---
CONSULT Date of Consult Date of Consult DATE: 04/27/21 TIME: 12:42 Reason for Consult Reason for Consult: Postop medical management Referring Physician Referring Physician: Thomas Identification/Chief Complaint Chief Complaint Graft site infection History of Present Illness Reason for Visit: Patient is a 65-year-old white male presented for planned surgery today with vascular surgery. Well-known to hospitalist service. Has a history of peripheral arterial disease status post right femoropopliteal bypass in January 09 and multiple toe amputations. He eventually had difficulties with wound healing and had to require further intervention for debridement flap placement and wound VAC. He recovered from this pretty well per report. He has been followed with vascular surgery as an outpatient recently developed a fluid collection at previous graft site. Brought in today for surgical evaluation of the sites I&D and now has wound VAC placed. Medicine consulted for management of chronic medical conditions. Evaluated the patient after surgery he was resting in bed quite lethargic from sedation still. He was able to indicate to me he was having any complaints. Pain appears well controlled as he looks in no distress. Broad-spectrum antibiotics started. Culture results pending Past Medical History Cardiovascular: AFIB, CAD, CHF, HTN, [place], Hyperlipidemia, Other Pulmonary: No pertinent hx, COPD CENTRAL NERVOUS SYSTEM: Other GI: Peptic Ulcer disease, Other Heme/Onc: No pertinent hx Hepatobiliary: No pertinent hx Psych: Anxiety Musculoskeletal: Osteoarthritis Rheumatologic: No pertinent hx Infectious disease: No pertinent hx Renal/: Other Endocrine: Diabetes Past Surgical History Past Surgical History: CABG, Other Family History Family History HTN, DM2 Family History: Heart Disease Social History Social History Former smoker denies alcohol drug use ALCOHOL: none Drugs: Crystal meth Lives: with Family Current Medications Current Medications Current Medications Heparin Sodium (Porcine) 5000 unit/Sodium Chloride 505 ml @ 505 mls/hr 1X ONCE IRR Last administered on 04/27/21at 08:25; Start 04/27/21 at 06:00; Stop 04/27/21 at 06:59; Status DC Cefazolin Sodium 1 gm/Sodium Chloride 500 ml @ 500 mls/hr 1X ONCE IRR Last administered on 04/27/21at 08:25; Start 04/27/21 at 06:00; Stop 04/27/21 at 06:59; Status DC Fentanyl Citrate (Fentanyl 2ml Vial) 25 mcg PRN Q5MIN PRN IVP MILD PAIN 1-3; Start 04/27/21 at 06:00; Stop 04/28/21 at 05:59 Fentanyl Citrate (Fentanyl 2ml Vial) 50 mcg PRN Q5MIN PRN IVP MODERATE PAIN 4- 6; Start 04/27/21 at 06:00; Stop 04/28/21 at 05:59 Morphine Sulfate (Morphine Sulfate) 1 mg PRN Q10MIN PRN IVP SEVERE PAIN 7-10; Start 04/27/21 at 06:00; Stop 04/28/21 at 05:59 Ringer's Solution 1,000 ml @ 30 mls/hr Q24H IV Last administered on 04/27/21at 06:57; Start 04/27/21 at 06:00; Stop 04/27/21 at 17:59 Hydromorphone HCl (Dilaudid) 0.5 mg PRN Q10MIN PRN IVP SEVERE PAIN 7-10, 2nd CHOICE; Start 04/27/21 at 06:00; Stop 04/28/21 at 05:59 Prochlorperazine Edisylate (Compazine) 5 mg PACU PRN PRN IVP NAUSEA, MRX1; Start 04/27/21 at 06:00; Stop 04/28/21 at 05:59 Cefazolin Sodium/ Dextrose 50 ml @ 100 mls/hr 1X PREOP PRN IV PRIOR TO PROCEDURE; Start 04/27/21 at 06:00; Stop 04/27/21 at 18:00 Cellulose (Surgicel Fibrillar 1x2) 1 each STK-MED ONCE .ROUTE Last administered on 04/27/21at 08:58; Start 04/27/21 at 06:55; Stop 04/27/21 at 06:55; Status DC Iohexol (Omnipaque 300 Mg/ml) 50 ml STK-MED ONCE .ROUTE ; Start 04/27/21 at 06:55; Stop 04/27/21 at 06:55; Status DC Protamine Sulfate (Protamine) 50 mg STK-MED ONCE IV ; Start 04/27/21 at 06:55; Stop 04/27/21 at 06:55; Status DC Lidocaine HCl (Lidocaine Pf 2% Vial) 5 ml STK-MED ONCE .ROUTE ; Start 04/27/21 at 07:08; Stop 04/27/21 at 07:08; Status DC Ondansetron HCl (Zofran) 4 mg STK-MED ONCE .ROUTE ; Start 04/27/21 at 07:08; Stop 04/27/21 at 07:08; Status DC Propofol (Diprivan) 200 mg STK-MED ONCE IV ; Start 04/27/21 at 07:08; Stop 04/27/21 at 07:08; Status DC Etomidate (Amidate) 20 mg STK-MED ONCE IV ; Start 04/27/21 at 07:08; Stop 04/27/21 at 07:08; Status DC Dexamethasone Sodium Phosphate (Decadron) 4 mg STK-MED ONCE .ROUTE ; Start 04/27/21 at 07:08; Stop 04/27/21 at 07:08; Status DC Sevoflurane (Ultane) 90 ml STK-MED ONCE IH ; Start 04/27/21 at 07:08; Stop 04/27/21 at 07:08; Status DC Fentanyl Citrate (Fentanyl 2ml Vial) 100 mcg STK-MED ONCE .ROUTE ; Start 04/27/21 at 07:08; Stop 04/27/21 at 07:08; Status DC Succinylcholine Chloride (Anectine) 200 mg STK-MED ONCE .ROUTE ; Start 04/27/21 at 07:09; Stop 04/27/21 at 07:09; Status DC Rocuronium [place] (Zemuron) 50 mg STK-MED ONCE .ROUTE ; Start 04/27/21 at 07:24; Stop 04/27/21 at 07:24; Status DC Vasopressin (Vasostrict) 20 unit STK-MED ONCE .ROUTE ; Start 04/27/21 at 07:26; Stop 04/27/21 at 07:27; Status DC Ketamine HCl (Ketamine) 50 mg STK-MED ONCE .ROUTE ; Start 04/27/21 at 08:29; Stop 04/27/21 at 08:30; Status DC Sugammadex Sodium (Bridion) 200 mg 1X ONCE IVP ; Start 04/27/21 at 09:00; Stop 04/27/21 at 09:01; Status DC Vancomycin HCl (Vanco Per Pharmacy) 1 each PRN DAILY PRN [facility] SEE COMMENTS; Start 04/27/21 at 10:30 Piperacillin Sod/ Tazobactam Sod (Zosyn Per Pharmacy) 1 each PRN DAILY PRN MC SEE COMMENTS; Start 04/27/21 at 10:30 Amiodarone HCl (Cordarone) 200 mg DAILY PO ; Start 04/27/21 at 12:00 Atorvastatin Calcium (Lipitor) 40 mg QHS PO ; Start 04/27/21 at 21:00 Clopidogrel Bisulfate (Plavix) 75 mg DAILY PO ; Start 04/28/21 at 09:00 Docusate Sodium (Colace) 100 mg PRN DAILY PRN PO HARD STOOLS; Start 04/27/21 at 10:30 Fluoxetine HCl (PROzac) 20 mg DAILY PO ; Start 04/27/21 at 12:00 Haloperidol Lactate (HALDOL 2mg ORAL CONC) 2 mg PRN Q6HRS PRN PO angry outbursts; Start 04/27/21 at 10:30 Albuterol Sulfate (Ventolin Neb Soln) 2.5 mg PRN BID PRN NEB SHORTNESS OF BREATH; Start 04/27/21 at 11:45 Metoprolol Succinate (Toprol Xl) 150 mg DAILY PO ; Start 04/28/21 at 09:00; Stop 04/27/21 at 11:25; Status DC Multivitamins (Thera M Plus) 1 tab DAILY PO ; Start 04/28/21 at 09:00 Olanzapine (ZyPREXA) 5 mg BID PO ; Start 04/27/21 at 12:00 Quetiapine Fumarate (SEROquel) 100 mg HS PO ; Start 04/27/21 at 21:00 Tamsulosin HCl (Flomax) 0.4 mg QHS PO ; Start 04/27/21 at 21:00 Gabapentin (Neurontin) 300 mg TID PO ; Start 04/27/21 at 14:00 Vancomycin HCl 1.75 gm/Sodium Chloride 500 ml @ 250 mls/hr 1X ONCE IV Last administered on 04/27/21at 12:22; Start 04/27/21 at 11:45; Stop 04/27/21 at 13:44 Piperacillin Sod/ Tazobactam Sod 3.375 gm/Sodium Chloride 50 ml @ 100 mls/hr Q6HRS IV ; Start 04/27/21 at 12:00 Active Scripts Active Colace (Docusate Sodium) 100 Mg Capsule 100 Mg PO PRN DAILY PRN Flomax (Tamsulosin Hcl) 0.4 Mg Cap.er.24h 0.4 Mg PO QHS Thera-M Tablet (Multivits,Ca,Minerals/Iron/Fa) 1 Each Tablet 1 Tab PO DAILY Atorvastatin Calcium 40 Mg Tablet 40 Mg PO QHS 30 Days Reported Seroquel (Quetiapine Fumarate) 100 Mg Tablet 100 Mg PO HS Olanzapine 5 Mg Tablet 5 Mg PO BID Probiotic (Lactobacillus Acidophilus) 1 Each Capsule 1 Each PO BID Duoneb 0.5-3(2.5) Mg/3 Ml (Albuterol/Ipratropium) 3 Ml Ampul.neb 3 Ml NEB PRN BID PRN Haloperidol Lactate 2 Mg/1 Ml Oral.conc 2 Mg PO PRN Q4-6HRS PRN Gabapentin 600 Mg Tablet 300 Mg PO TID Fluoxetine Hcl 20 Mg Capsule 20 Mg PO DAILY Clopidogrel (Clopidogrel Bisulfate) 75 Mg Tablet 75 Mg PO DAILY Amiodarone Hcl 200 Mg Tablet 200 Mg PO DAILY Eliquis (Apixaban) 5 Mg Tablet 5 Mg PO BID Allergies Allergies: Coded Allergies: No Known Drug Allergies (Unverified , 04/26/21) ROS Review of System Unless known HPI 14 point review of systems is negative Physical Exam General: Alert, Oriented X3, Cooperative, mild distress HEENT: PERRLA Lungs: Clear to auscultation Heart: Regular rate, Normal S1 Abdomen: Normal bowel sounds, Soft Extremities: Other (Wound VAC in place with bloody output, multiple amputations) Neuro: Normal speech Vitals VITALS Vital Signs Date Time Temp Pulse Resp B/P (MAP) Pulse Ox O2 Delivery O2 Flow Rate FiO2 04/27/21 12:00 44 86/49 04/27/21 10:56 Mask 3 04/27/21 10:49 97.0 16 99 97.0 Labs Labs Laboratory Tests Test 04/27/21 06:25 04/27/21 09:42 White Blood Count 7.8 x10^3/uL (4.0-11.0) Red Blood Count 3.28 x10^6/uL (4.30-5.70) Hemoglobin 8.2 g/dL (13.0-17.5) Hematocrit 26.7 % (39.0-53.0) Mean Corpuscular Volume 82 fL (79-100) Mean Corpuscular Hemoglobin 25 pg (25-35) Mean Corpuscular Hemoglobin Concent 31 g/dL (31-37) Red Cell Distribution Width 19.4 % (11.5-14.5) Platelet Count 305 x10^3/uL (140-400) Neutrophils (%) (Auto) 68 % (31-73) Lymphocytes (%) (Auto) 15 % (24-48) Monocytes (%) (Auto) 11 % (0-9) Eosinophils (%) (Auto) 5 % (0-3) Basophils (%) (Auto) 1 % (0-3) Neutrophils # (Auto) 5.3 x10^3/uL (1.8-7.7) Lymphocytes # (Auto) 1.2 x10^3/uL (1.0-4.8) Monocytes # (Auto) 0.9 x10^3/uL (0.0-1.1) Eosinophils # (Auto) 0.4 x10^3/uL (0.0-0.7) Basophils # (Auto) 0.1 x10^3/uL (0.0-0.2) Prothrombin Time 22.0 SEC (11.7-14.0) Prothromb Time International Ratio 2.0 (0.8-1.1) Activated Partial Thromboplast Time 46 SEC (24-38) Sodium Level 134 mmol/L (136-145) Potassium Level 4.8 mmol/L (3.5-5.1) Chloride Level 105 mmol/L (98-107) Carbon Dioxide Level 21 mmol/L (21-32) Anion Gap 8 (6-14) Blood Urea Nitrogen 36 mg/dL (8-26) Creatinine 1.8 mg/dL (0.7-1.3) Estimated GFR (Cockcroft-Gault) 38.1 Glucose Level 82 mg/dL (70-99) Calcium Level 8.0 mg/dL (8.5-10.1) Glucose (Fingerstick) 107 mg/dL (70-99) Laboratory Tests Test 04/27/21 06:25 04/27/21 09:42 White Blood Count 7.8 x10^3/uL (4.0-11.0) Red Blood Count 3.28 x10^6/uL (4.30-5.70) Hemoglobin 8.2 g/dL (13.0-17.5) Hematocrit 26.7 % (39.0-53.0) Mean Corpuscular Volume 82 fL (79-100) Mean Corpuscular Hemoglobin 25 pg (25-35) Mean Corpuscular Hemoglobin Concent 31 g/dL (31-37) Red Cell Distribution Width 19.4 % (11.5-14.5) Platelet Count 305 x10^3/uL (140-400) Neutrophils (%) (Auto) 68 % (31-73) Lymphocytes (%) (Auto) 15 % (24-48) Monocytes (%) (Auto) 11 % (0-9) Eosinophils (%) (Auto) 5 % (0-3) Basophils (%) (Auto) 1 % (0-3) Neutrophils # (Auto) 5.3 x10^3/uL (1.8-7.7) Lymphocytes # (Auto) 1.2 x10^3/uL (1.0-4.8) Monocytes # (Auto) 0.9 x10^3/uL (0.0-1.1) Eosinophils # (Auto) 0.4 x10^3/uL (0.0-0.7) Basophils # (Auto) 0.1 x10^3/uL (0.0-0.2) Prothrombin Time 22.0 SEC (11.7-14.0) Prothromb Time International Ratio 2.0 (0.8-1.1) Activated Partial Thromboplast Time 46 SEC (24-38) Sodium Level 134 mmol/L (136-145) Potassium Level 4.8 mmol/L (3.5-5.1) Chloride Level 105 mmol/L (98-107) Carbon Dioxide Level 21 mmol/L (21-32) Anion Gap 8 (6-14) Blood Urea Nitrogen 36 mg/dL (8-26) Creatinine 1.8 mg/dL (0.7-1.3) Estimated GFR (Cockcroft-Gault) 38.1 Glucose Level 82 mg/dL (70-99) Calcium Level 8.0 mg/dL (8.5-10.1) Glucose (Fingerstick) 107 mg/dL (70-99) Assessment/Plan Assessment/Plan Graft site infection status post I&D with wound VAC placement. -agree with broad coverage Vanc Zosyn; if Cr worsens can switch Vanc to Dapto -Blood cultures if not already done will follow Intra-Op cultures -based upon culture results may need ID consult -hold home Metoprolol with bradycardia and hypotension; -resume other home medications -PT OT may be needed if okay with surgical team SP RENTERIA MD Apr 27, 2021 12:56
[2021-04-27] MEDS ORDERED: IV NORMAL SALINE 500ML BAG 500 ML IV ONE (13:45)
--- NOTE | 2021-04-27 13:54 | PDOC2 ---
Consult: REQUESTING PHYSICIAN: DR Alonso/Hao RAMEY REASON FOR CONSULTATION: Antibiotic management HISTORY OF PRESENT ILLNESS: 65-year-old gentleman well known to o ur service from recent discharge RLE fem-pop bypass with evidence of possible infection, readmitted for wash out and flap, wound vac for RT groin hematoma, possible abscess He underwent surgery this am. He is currently on IV Zosyn and vancomycin. The patient is somnolent,just returned from surgery per rn, arousable, No fever nausea, vomiting or diarrhea noted. PAST MEDICAL HISTORY: Positive for diabetes mellitus, hypertension, hyperlipidemia, coronary artery disease, multiple toe amputations done, right leg bypass done with a wound onto the right groin, coronary artery bypass grafting done. SOCIAL HISTORY: Negative for smoking, alcohol or illicit drug use. The patient lives at home. ALLERGIES: No known drug allergies. CURRENT MEDICATIONS: Reviewed. REVIEW OF SYSTEMS: limited, PHYSICAL EXAMINATION: GENERAL: Arousable, but not to his baseline, lethargic gentleman, not in any distress. VITAL SIGNS: reviewed HEENT: Both pupils are round and reacting. No conjunctival lesion, no lesion in the mouth. NECK: Supple, no JVP, no lymphadenopathy. LUNGS: Clear. HEART: S1, S2, regular. ABDOMEN: Soft, nontender, no organomegaly. EXTREMITIES: No edema or cyanosis. SKIN: His right groin wound with vac present, no fluctuance. Rest of the skin exam is unremarkable. NEUROLOGIC: The patient is arousable, opens eyes, maybe nods, but not communicative or not interactive like his baseline. LABORATORY DATA: CBC reviewed, normal wbc CMP noted Micro reviewed This admission is pending IMPRESSION: RLE fem-pop bypass with evidence of possible infection, s/p I and D ,flap and wound vac today Recent aspiration ,cult negative PAD Right groin wound, which is clean and superficial, do not see any infection there. Coronary artery disease. Peripheral arterial disease. RECOMMENDATIONS: Change antibiotics to meropenem and daptomycin wound vac care as directed f/u intraoperative cult and labs . Supportive care. Thank you for giving me opportunity to participate in this patient's care. D/W JOY LOPEZ MD Apr 27, 2021 13:54
[2021-04-27] MEDS: GABAPENTIN 300 MG CAPSULE. PO SCH ×2 (14:00→20:34)
--- NOTE | 2021-04-27 16:23 | NUR ---
SS following for discharge planning. SS reviewed pt chart and discussed with pt RN. Pt is rehabilitation resident from [facility], ; fax [phone]. COVID19 negative. Pt had surgery today. Wound vac in place. Pt on IV Daptomycin and IV Meropenem. Pt is currently requiring oxygen at four liters nasal canula. Pt is able to return to [facility] unit when medically ready for discharge. PT/OT orders requested. Clinical updates phoned and faxed to [facility]. SS will continue to follow for discharge planning.
[2021-04-27] MEDS: DAPTOmycin (GENERIC) IVPB 430 MG in IV NORMAL SALINE 50ML 50 ML IV SCH (16:31)
[2021-04-27] MEDS: MEROPENEM 500 MG in IV NORMAL SALINE 50ML 50 ML IV SCH (19:32)
[2021-04-27] MEDS: TAMSULOSIN 0.4 MG CAP.ER.24H. PO SCH (20:34)
[2021-04-27] MEDS: ATORVASTATIN CALCIUM 40 MG TABLET. PO SCH (20:34)
[2021-04-27] MEDS: QUEtiapine 100 MG TABLET. PO SCH (20:34)
[2021-04-28] MEDS: MEROPENEM 500 MG in IV NORMAL SALINE 50ML 50 ML IV SCH ×4 (00:42→17:10)
[2021-04-28 02:39] VITALS: BP 96/43
[2021-04-28 06:14] LABS: BASO # 0.1 x10^3/uL (0.0-0.2); BASO % 1 % (0-3); EOS # 0.4 x10^3/uL (0.0-0.7); EOS % 4 % (0-3); HEMATOCRIT 26.7 % (39.0-53.0); HEMOGLOBIN 8.2 g/dL (13.0-17.5); LYMPH # 1.1 x10^3/uL (1.0-4.8); LYMPH % 12 % (24-48); MEAN CORPUSCULAR HEMOGLOBIN 25 pg (25-35); MEAN CORPUSCULAR HGB CONC 31 g/dL (31-37); MEAN CORPUSCULAR VOLUME 81 fL (79-100); MONO # 0.7 x10^3/uL (0.0-1.1); MONO % 8 % (0-9); NEUT # 6.8 x10^3/uL (1.8-7.7); NEUT % 75 % (31-73); PLATELET COUNT 318 x10^3/uL (140-400); RED BLOOD COUNT 3.31 x10^6/uL (4.30-5.70)
[2021-04-28 06:30] LABS: CALCIUM 7.9 mg/dL (8.5-10.1); CREATININE 1.7 mg/dL (0.7-1.3); GFR 40.7; POTASSIUM 4.9 mmol/L (3.5-5.1)
[2021-04-28 07:00] VITALS: BP 100/50
[2021-04-28] MEDS: FLUoxetine HCL 20 MG CAPSULE PO SCH (08:42)
[2021-04-28] MEDS: GABAPENTIN 300 MG CAPSULE. PO SCH ×3 (08:42→20:44)
[2021-04-28] MEDS: MULTIVITAMIN with MINERAL TABLET. PO SCH (08:43)
[2021-04-28] MEDS: OLANZapine 5 MG TABLET PO SCH ×2 (08:43→20:44)
[2021-04-28] MEDS: AMIODARONE HCL 200 MG TABLET. PO SCH (08:43)
[2021-04-28] MEDS ORDERED: METOPROLOL SUCC 24HR ER 100 MG TAB.ER.24H. PO SCH (09:00)
[2021-04-28] MEDS ORDERED: CLOPIDOGREL BISULFATE 75 MG TABLET PO SCH (09:00)
[2021-04-28 10:28] VITALS: BP 98/56
--- NOTE | 2021-04-28 11:39 | PDOC ---
[employer] PROGRESS NOTE Date of Service DOS: DATE: 04/28/21 TIME: 11:38 Chief Complaint Chief Complaint Severe peripheral vascular disease Postop day #1 (Procedure: #1 right lower extremity wound irrigation and debridement #2 right lower extremity sartorius flap #3 wound VAC placement 15 x 6 x 4 cm) Positive for diabetes mellitus, hypertension, hyperlipidemia, coronary artery disease, multiple toe amputations done, right leg bypass done with a wound onto the right groin, coronary artery bypass grafting done. History of Present Illness History of Present Illness 04/28/2021 Patient resting with no apparent distress Discussed with RN Chart reviewed Discussed with vascular surgery they would like to keep him till tomorrow so they can place a wound VAC Vitals/I&O Vitals/I&O: Vital Signs Date Time Temp Pulse Resp B/P (MAP) Pulse Ox O2 Delivery O2 Flow Rate FiO2 04/28/21 10:28 97.7 86 18 98/56 (70) 99 Room Air 97.7 04/28/21 08:00 2.0 I & O 04/27/21 04/27/21 04/28/21 15:00 23:00 07:00 Intake Total 1500 ml 250 ml 200 ml Output Total 100 ml 900 ml Balance 1400 ml -650 ml 200 ml Physical Exam General: No acute distress Heart: Regular rate, Normal S1 Lungs: Clear, Other Abdomen: Normal bowel sounds, Soft Extremities: Other (Wound VAC in place with bloody output, multiple amputations) Labs Labs: Laboratory Tests Test 04/27/21 12:30 04/28/21 05:10 White Blood Count 7.4 x10^3/uL (4.0-11.0) 9.0 x10^3/uL (4.0-11.0) Red Blood Count 2.98 x10^6/uL (4.30-5.70) 3.31 x10^6/uL (4.30-5.70) Hemoglobin 7.4 g/dL (13.0-17.5) 8.2 g/dL (13.0-17.5) Hematocrit 24.1 % (39.0-53.0) 26.7 % (39.0-53.0) Mean Corpuscular Volume 81 fL (79-100) 81 fL (79-100) Mean Corpuscular Hemoglobin 25 pg (25-35) 25 pg (25-35) Mean Corpuscular Hemoglobin Concent 31 g/dL (31-37) 31 g/dL (31-37) Red Cell Distribution Width 19.1 % (11.5-14.5) 19.0 % (11.5-14.5) Platelet Count 268 x10^3/uL (140-400) 318 x10^3/uL (140-400) Neutrophils (%) (Auto) 71 % (31-73) 75 % (31-73) Lymphocytes (%) (Auto) 14 % (24-48) 12 % (24-48) Monocytes (%) (Auto) 11 % (0-9) 8 % (0-9) Eosinophils (%) (Auto) 3 % (0-3) 4 % (0-3) Basophils (%) (Auto) 1 % (0-3) 1 % (0-3) Neutrophils # (Auto) 5.2 x10^3/uL (1.8-7.7) 6.8 x10^3/uL (1.8-7.7) Lymphocytes # (Auto) 1.0 x10^3/uL (1.0-4.8) 1.1 x10^3/uL (1.0-4.8) Monocytes # (Auto) 0.8 x10^3/uL (0.0-1.1) 0.7 x10^3/uL (0.0-1.1) Eosinophils # (Auto) 0.2 x10^3/uL (0.0-0.7) 0.4 x10^3/uL (0.0-0.7) Basophils # (Auto) 0.1 x10^3/uL (0.0-0.2) 0.1 x10^3/uL (0.0-0.2) Sodium Level 137 mmol/L (136-145) Potassium Level 4.9 mmol/L (3.5-5.1) Chloride Level 107 mmol/L (98-107) Carbon Dioxide Level 20 mmol/L (21-32) Anion Gap 10 (6-14) Blood Urea Nitrogen 38 mg/dL (8-26) Creatinine 1.7 mg/dL (0.7-1.3) Estimated GFR (Cockcroft-Gault) 40.7 Glucose Level 78 mg/dL (70-99) Calcium Level 7.9 mg/dL (8.5-10.1) Assessment and Plan Assessmemt and Plan Severe peripheral vascular disease Postop day #1 (Procedure: #1 right lower extremity wound irrigation and debridement #2 right lower extremity sartorius flap #3 wound VAC placement 15 x 6 x 4 cm) Positive for diabetes mellitus, hypertension, hyperlipidemia, coronary artery disease, multiple toe amputations done, right leg bypass done with a wound onto the right groin, coronary artery bypass grafting done. Plan Vascular surgery is going to place a wound VAC tomorrow For now continue IV antibiotics Dapto and mitra Wound halfway meds DVT prophylaxis Full code Trend labs Encourage p.o. intake Hope to discharge tomorrow if stable Comment Review of Relevant I have reviewed the following items rachel (where applicable) has been applied. Medications: Current Medications Medications (Trade) Dose Ordered Sig/Lizzeth Route PRN Reason Start Time Stop Time Status Last Admin Dose Admin Amiodarone HCl (Cordarone) 200 mg DAILY PO 04/27/21 12:00 04/28/21 08:43 Atorvastatin Calcium (Lipitor) 40 mg QHS PO 04/27/21 21:00 04/27/21 20:34 Fluoxetine HCl (PROzac) 20 mg DAILY PO 04/27/21 12:00 04/28/21 08:42 Multivitamins (Thera M Plus) 1 tab DAILY PO 04/28/21 09:00 04/28/21 08:43 Olanzapine (ZyPREXA) 5 mg BID PO 04/27/21 12:00 04/28/21 08:43 Quetiapine Fumarate (SEROquel) 100 mg HS PO 04/27/21 21:00 04/27/21 20:34 Tamsulosin HCl (Flomax) 0.4 mg QHS PO 04/27/21 21:00 04/27/21 20:34 Gabapentin (Neurontin) 300 mg TID PO 04/27/21 14:00 04/28/21 08:42 Vancomycin HCl 1.75 gm/Sodium Chloride 500 ml @ 250 mls/hr 1X ONCE IV 04/27/21 11:45 04/27/21 13:44 DC 04/27/21 12:22 Sodium Chloride 500 ml @ 250 mls/hr 1X ONCE IV 04/27/21 13:45 04/27/21 15:44 DC 04/27/21 14:39 Daptomycin 430 mg/ Sodium Chloride 50 ml @ 100 mls/hr Q24H IV 04/27/21 15:00 04/27/21 16:31 Meropenem 500 mg/ Sodium Chloride 50 ml @ 100 mls/hr Q6HRS IV 04/27/21 18:00 04/28/21 06:34 Justifications for Admission Other Justification Hypotension DARIO LOPEZ III DO Apr 28, 2021 11:39
--- NOTE | 2021-04-28 12:37 | NUR ---
SS following up with discharge planning. SS reviewed pt chart and discussed with pt RN. Pt is rehabilitation resident from [facility] long term unit, ; fax [phone]. COVID19 negative on rapid test. Pt had surgery on 04/27/2021. Wound vac in place. Pt is currently on room air. Pt on IV Daptomycin and IV Meropenem. Pt is able to return to long term unit when medically ready for discharge. Per Jorge, pt will need three midnights in the hospital. [facility] reported that they cannot provide IV Meropenem. [facility] requesting PT evaluation. [facility] reported that they will be able to accommodate wound vac and are okay with rapid COVID19 test. PT orders requested. SS will continue to follow for discharge planning.
--- NOTE | 2021-04-28 12:49 | PDOC ---
PROGRESS NOTES Date of Service DATE: 04/28/21 TIME: 12:41 Subjective Subjective Patient seen in room this morning. He reports being hungry. He denies any significant pain. Objective Objective Vital Signs Date Time Temp Pulse Resp B/P (MAP) Pulse Ox O2 Delivery O2 Flow Rate FiO2 04/28/21 10:28 97.7 86 18 98/56 (70) 99 Room Air 97.7 04/28/21 08:00 2.0 Intake and Output 04/28/21 07:00 Intake Total 1950 ml Output Total 1000 ml Balance 950 ml Intake Oral 450 ml IV Total 1500 ml Output Urine Total 925 ml Estimated Blood Loss 75 ml Physical Exam Physical Exam Vital signs stable, afebrile Awake, alert, no apparent distress Respirations unlabored, room air Bilateral healed toe amputations on both sides. Other bilateral leg incisions are healed. Right thigh wound VAC in place with good suction. Mild surrounding erythema. Right groin wound clean, intact. Some moisture that was removed and wound cleaned at bedside. He has moderate dependent pitting edema of the proximal lateral thigh. Moderate scrotal swelling. Wolff catheter in place with small amount of cloudy fluid around catheter insertion Assessment Assessment PAD s/p right fem-AK pop bypass some time ago. s/p right leg debridement and muscle flap with wound vac placement 04/27 Continue wound vac therapy and IV abx per ID. OR cultures pending. We will need to see wound tomorrow with vac change. Pt can increase activity as tolerated He came in with wolff catheter, therefore will defer to whoever ordered chronicity of it for orders. Apparently it was replaced by nursing last night. Scrotal elevation for swelling, support when getting up. Comment Review of Relevant I have reviewed the following items rachel (where applicable) has been applied. Labs Laboratory Tests Test 04/27/21 06:00 04/27/21 06:25 04/27/21 09:42 04/27/21 12:30 POC SARS CoV-2 Antigen Negative (NEGATIVE) White Blood Count 7.8 x10^3/uL (4.0-11.0) 7.4 x10^3/uL (4.0-11.0) Red Blood Count 3.28 x10^6/uL (4.30-5.70) 2.98 x10^6/uL (4.30-5.70) Hemoglobin 8.2 g/dL (13.0-17.5) 7.4 g/dL (13.0-17.5) Hematocrit 26.7 % (39.0-53.0) 24.1 % (39.0-53.0) Mean Corpuscular Volume 82 fL (79-100) 81 fL (79-100) Mean Corpuscular Hemoglobin 25 pg (25-35) 25 pg (25-35) Mean Corpuscular Hemoglobin Concent 31 g/dL (31-37) 31 g/dL (31-37) Red Cell Distribution Width 19.4 % (11.5-14.5) 19.1 % (11.5-14.5) Platelet Count 305 x10^3/uL (140-400) 268 x10^3/uL (140-400) Neutrophils (%) (Auto) 68 % (31-73) 71 % (31-73) Lymphocytes (%) (Auto) 15 % (24-48) 14 % (24-48) Monocytes (%) (Auto) 11 % (0-9) 11 % (0-9) Eosinophils (%) (Auto) 5 % (0-3) 3 % (0-3) Basophils (%) (Auto) 1 % (0-3) 1 % (0-3) Neutrophils # (Auto) 5.3 x10^3/uL (1.8-7.7) 5.2 x10^3/uL (1.8-7.7) Lymphocytes # (Auto) 1.2 x10^3/uL (1.0-4.8) 1.0 x10^3/uL (1.0-4.8) Monocytes # (Auto) 0.9 x10^3/uL (0.0-1.1) 0.8 x10^3/uL (0.0-1.1) Eosinophils # (Auto) 0.4 x10^3/uL (0.0-0.7) 0.2 x10^3/uL (0.0-0.7) Basophils # (Auto) 0.1 x10^3/uL (0.0-0.2) 0.1 x10^3/uL (0.0-0.2) Prothrombin Time 22.0 SEC (11.7-14.0) Prothromb Time International Ratio 2.0 (0.8-1.1) Activated Partial Thromboplast Time 46 SEC (24-38) Sodium Level 134 mmol/L (136-145) Potassium Level 4.8 mmol/L (3.5-5.1) Chloride Level 105 mmol/L (98-107) Carbon Dioxide Level 21 mmol/L (21-32) Anion Gap 8 (6-14) Blood Urea Nitrogen 36 mg/dL (8-26) Creatinine 1.8 mg/dL (0.7-1.3) Estimated GFR (Cockcroft-Gault) 38.1 Glucose Level 82 mg/dL (70-99) Calcium Level 8.0 mg/dL (8.5-10.1) Glucose (Fingerstick) 107 mg/dL (70-99) Test 04/28/21 05:10 White Blood Count 9.0 x10^3/uL (4.0-11.0) Red Blood Count 3.31 x10^6/uL (4.30-5.70) Hemoglobin 8.2 g/dL (13.0-17.5) Hematocrit 26.7 % (39.0-53.0) Mean Corpuscular Volume 81 fL (79-100) Mean Corpuscular Hemoglobin 25 pg (25-35) Mean Corpuscular Hemoglobin Concent 31 g/dL (31-37) Red Cell Distribution Width 19.0 % (11.5-14.5) Platelet Count 318 x10^3/uL (140-400) Neutrophils (%) (Auto) 75 % (31-73) Lymphocytes (%) (Auto) 12 % (24-48) Monocytes (%) (Auto) 8 % (0-9) Eosinophils (%) (Auto) 4 % (0-3) Basophils (%) (Auto) 1 % (0-3) Neutrophils # (Auto) 6.8 x10^3/uL (1.8-7.7) Lymphocytes # (Auto) 1.1 x10^3/uL (1.0-4.8) Monocytes # (Auto) 0.7 x10^3/uL (0.0-1.1) Eosinophils # (Auto) 0.4 x10^3/uL (0.0-0.7) Basophils # (Auto) 0.1 x10^3/uL (0.0-0.2) Sodium Level 137 mmol/L (136-145) Potassium Level 4.9 mmol/L (3.5-5.1) Chloride Level 107 mmol/L (98-107) Carbon Dioxide Level 20 mmol/L (21-32) Anion Gap 10 (6-14) Blood Urea Nitrogen 38 mg/dL (8-26) Creatinine 1.7 mg/dL (0.7-1.3) Estimated GFR (Cockcroft-Gault) 40.7 Glucose Level 78 mg/dL (70-99) Calcium Level 7.9 mg/dL (8.5-10.1) Laboratory Tests Test 04/28/21 05:10 White Blood Count 9.0 x10^3/uL (4.0-11.0) Red Blood Count 3.31 x10^6/uL (4.30-5.70) Hemoglobin 8.2 g/dL (13.0-17.5) Hematocrit 26.7 % (39.0-53.0) Mean Corpuscular Volume 81 fL (79-100) Mean Corpuscular Hemoglobin 25 pg (25-35) Mean Corpuscular Hemoglobin Concent 31 g/dL (31-37) Red Cell Distribution Width 19.0 % (11.5-14.5) Platelet Count 318 x10^3/uL (140-400) Neutrophils (%) (Auto) 75 % (31-73) Lymphocytes (%) (Auto) 12 % (24-48) Monocytes (%) (Auto) 8 % (0-9) Eosinophils (%) (Auto) 4 % (0-3) Basophils (%) (Auto) 1 % (0-3) Neutrophils # (Auto) 6.8 x10^3/uL (1.8-7.7) Lymphocytes # (Auto) 1.1 x10^3/uL (1.0-4.8) Monocytes # (Auto) 0.7 x10^3/uL (0.0-1.1) Eosinophils # (Auto) 0.4 x10^3/uL (0.0-0.7) Basophils # (Auto) 0.1 x10^3/uL (0.0-0.2) Sodium Level 137 mmol/L (136-145) Potassium Level 4.9 mmol/L (3.5-5.1) Chloride Level 107 mmol/L (98-107) Carbon Dioxide Level 20 mmol/L (21-32) Anion Gap 10 (6-14) Blood Urea Nitrogen 38 mg/dL (8-26) Creatinine 1.7 mg/dL (0.7-1.3) Estimated GFR (Cockcroft-Gault) 40.7 Glucose Level 78 mg/dL (70-99) Calcium Level 7.9 mg/dL (8.5-10.1) Microbiology 04/27/21 Gram Stain - Final, Resulted 04/27/21 Aerobic and Anaerobic Culture - Preliminary, Resulted Medications Current Medications Heparin Sodium (Porcine) 5000 unit/Sodium Chloride 505 ml @ 505 mls/hr 1X ONCE IRR Last administered on 04/27/21at 08:25; Start 04/27/21 at 06:00; Stop 04/27/21 at 06:59; Status DC Cefazolin Sodium 1 gm/Sodium Chloride 500 ml @ 500 mls/hr 1X ONCE IRR Last administered on 04/27/21at 08:25; Start 04/27/21 at 06:00; Stop 04/27/21 at 06:59; Status DC Fentanyl Citrate (Fentanyl 2ml Vial) 25 mcg PRN Q5MIN PRN IVP MILD PAIN 1-3; Start 04/27/21 at 06:00; Stop 04/28/21 at 05:59; Status DC Fentanyl Citrate (Fentanyl 2ml Vial) 50 mcg PRN Q5MIN PRN IVP MODERATE PAIN 4- 6; Start 04/27/21 at 06:00; Stop 04/28/21 at 05:59; Status DC Morphine Sulfate (Morphine Sulfate) 1 mg PRN Q10MIN PRN IVP SEVERE PAIN 7-10; Start 04/27/21 at 06:00; Stop 04/28/21 at 05:59; Status DC Ringer's Solution 1,000 ml @ 30 mls/hr Q24H IV Last administered on 04/27/21at 06:57; Start 04/27/21 at 06:00; Stop 04/27/21 at 17:59; Status DC Hydromorphone HCl (Dilaudid) 0.5 mg PRN Q10MIN PRN IVP SEVERE PAIN 7-10, 2nd CHOICE; Start 04/27/21 at 06:00; Stop 04/28/21 at 05:59; Status DC Prochlorperazine Edisylate (Compazine) 5 mg PACU PRN PRN IVP NAUSEA, MRX1; Start 04/27/21 at 06:00; Stop 04/28/21 at 05:59; Status DC Cefazolin Sodium/ Dextrose 50 ml @ 100 mls/hr 1X PREOP PRN IV PRIOR TO PROCEDURE; Start 04/27/21 at 06:00; Stop 04/27/21 at 18:00; Status DC Cellulose (Surgicel Fibrillar 1x2) 1 each STK-MED ONCE .ROUTE Last administered on 04/27/21at 08:58; Start 04/27/21 at 06:55; Stop 04/27/21 at 06:55; Status DC Iohexol (Omnipaque 300 Mg/ml) 50 ml STK-MED ONCE .ROUTE ; Start 04/27/21 at 06:55; Stop 04/27/21 at 06:55; Status DC Protamine Sulfate (Protamine) 50 mg STK-MED ONCE IV ; Start 04/27/21 at 06:55; Stop 04/27/21 at 06:55; Status DC Lidocaine HCl (Lidocaine Pf 2% Vial) 5 ml STK-MED ONCE .ROUTE ; Start 04/27/21 at 07:08; Stop 04/27/21 at 07:08; Status DC Ondansetron HCl (Zofran) 4 mg STK-MED ONCE .ROUTE ; Start 04/27/21 at 07:08; Stop 04/27/21 at 07:08; Status DC Propofol (Diprivan) 200 mg STK-MED ONCE IV ; Start 04/27/21 at 07:08; Stop 04/27/21 at 07:08; Status DC Etomidate (Amidate) 20 mg STK-MED ONCE IV ; Start 04/27/21 at 07:08; Stop 04/27/21 at 07:08; Status DC Dexamethasone Sodium Phosphate (Decadron) 4 mg STK-MED ONCE .ROUTE ; Start 04/27/21 at 07:08; Stop 04/27/21 at 07:08; Status DC Sevoflurane (Ultane) 90 ml STK-MED ONCE IH ; Start 04/27/21 at 07:08; Stop 04/27/21 at 07:08; Status DC Fentanyl Citrate (Fentanyl 2ml Vial) 100 mcg STK-MED ONCE .ROUTE ; Start 04/27/21 at 07:08; Stop 04/27/21 at 07:08; Status DC Succinylcholine Chloride (Anectine) 200 mg STK-MED ONCE .ROUTE ; Start 04/27/21 at 07:09; Stop 04/27/21 at 07:09; Status DC Rocuronium Donie (Zemuron) 50 mg STK-MED ONCE .ROUTE ; Start 04/27/21 at 07:24; Stop 04/27/21 at 07:24; Status DC Vasopressin (Vasostrict) 20 unit STK-MED ONCE .ROUTE ; Start 04/27/21 at 07:26; Stop 04/27/21 at 07:27; Status DC Ketamine HCl (Ketamine) 50 mg STK-MED ONCE .ROUTE ; Start 04/27/21 at 08:29; Stop 04/27/21 at 08:30; Status DC Sugammadex Sodium (Bridion) 200 mg 1X ONCE IVP ; Start 04/27/21 at 09:00; Stop 04/27/21 at 09:01; Status DC Vancomycin HCl (Vanco Per Pharmacy) 1 each PRN DAILY PRN MC SEE COMMENTS; Start 04/27/21 at 10:30; Stop 04/27/21 at 13:55; Status DC Piperacillin Sod/ Tazobactam Sod (Zosyn Per Pharmacy) 1 each PRN DAILY PRN MC SEE COMMENTS; Start 04/27/21 at 10:30; Status Cancel Amiodarone HCl (Cordarone) 200 mg DAILY PO Last administered on 04/28/21at 08:43; Start 04/27/21 at 12:00 Atorvastatin Calcium (Lipitor) 40 mg QHS PO Last administered on 04/27/21at 20:34; Start 04/27/21 at 21:00 Clopidogrel Bisulfate (Plavix) 75 mg DAILY PO ; Start 04/28/21 at 09:00; Stop 04/28/21 at 08:28; Status DC Docusate Sodium (Colace) 100 mg PRN DAILY PRN PO HARD STOOLS; Start 04/27/21 at 10:30 Fluoxetine HCl (PROzac) 20 mg DAILY PO Last administered on 04/28/21at 08:42; Start 04/27/21 at 12:00 Haloperidol Lactate (HALDOL 2mg ORAL CONC) 2 mg PRN Q6HRS PRN PO angry outbursts Last administered on 04/28/21at 08:42; Start 04/27/21 at 10:30 Albuterol Sulfate (Ventolin Neb Soln) 2.5 mg PRN BID PRN NEB SHORTNESS OF BREATH; Start 04/27/21 at 11:45 Metoprolol Succinate (Toprol Xl) 150 mg DAILY PO ; Start 04/28/21 at 09:00; Stop 04/27/21 at 11:25; Status DC Multivitamins (Thera M Plus) 1 tab DAILY PO Last administered on 04/28/21 08:43; Start 04/28/21 at 09:00 Olanzapine (ZyPREXA) 5 mg BID PO Last administered on 04/28/21at 08:43; Start 04/27/21 at 12:00 Quetiapine Fumarate (SEROquel) 100 mg HS PO Last administered on 04/27/21at 20:34; Start 04/27/21 at 21:00 Tamsulosin HCl (Flomax) 0.4 mg QHS PO Last administered on 04/27/21at 20:34; Start 04/27/21 at 21:00 Gabapentin (Neurontin) 300 mg TID PO Last administered on 04/28/21at 08:42; Start 04/27/21 at 14:00 Vancomycin HCl 1.75 gm/Sodium Chloride 500 ml @ 250 mls/hr 1X ONCE IV Last administered on 04/27/21at 12:22; Start 04/27/21 at 11:45; Stop 04/27/21 at 13:44; Status DC Piperacillin Sod/ Tazobactam Sod 3.375 gm/Sodium Chloride 50 ml @ 100 mls/hr Q6HRS IV ; Start 04/27/21 at 12:00; Stop 04/27/21 at 13:55; Status DC Sodium Chloride 500 ml @ 250 mls/hr 1X ONCE IV Last administered on 04/27/21at 14:39; Start 04/27/21 at 13:45; Stop 04/27/21 at 15:44; Status DC Daptomycin 430 mg/ Sodium Chloride 50 ml @ 100 mls/hr Q24H IV Last administered on 04/27/21at 16:31; Start 04/27/21 at 15:00 Meropenem 500 mg/ Sodium Chloride 50 ml @ 100 mls/hr Q6HRS IV Last adm inistered on 04/28/21at 11:43; Start 04/27/21 at 18:00 Active Scripts Active Colace (Docusate Sodium) 100 Mg Capsule 100 Mg PO PRN DAILY PRN Flomax (Tamsulosin Hcl) 0.4 Mg Cap.er.24h 0.4 Mg PO QHS Thera-M Tablet (Multivits,Ca,Minerals/Iron/Fa) 1 Each Tablet 1 Tab PO DAILY Atorvastatin Calcium 40 Mg Tablet 40 Mg PO QHS 30 Days Reported Seroquel (Quetiapine Fumarate) 100 Mg Tablet 100 Mg PO HS Olanzapine 5 Mg Tablet 5 Mg PO BID Probiotic (Lactobacillus Acidophilus) 1 Each Capsule 1 Each PO BID Duoneb 0.5-3(2.5) Mg/3 Ml (Albuterol/Ipratropium) 3 Ml Ampul.neb 3 Ml NEB PRN BID PRN Haloperidol Lactate 2 Mg/1 Ml Oral.conc 2 Mg PO PRN Q4-6HRS PRN Gabapentin 600 Mg Tablet 300 Mg PO TID Fluoxetine Hcl 20 Mg Capsule 20 Mg PO DAILY Clopidogrel (Clopidogrel Bisulfate) 75 Mg Tablet 75 Mg PO DAILY Amiodarone Hcl 200 Mg Tablet 200 Mg PO DAILY Eliquis (Apixaban) 5 Mg Tablet 5 Mg PO BID Vitals/I & O Vital Sign - Last 24 Hours 04/27/21 04/27/21 04/27/21 04/27/21 12:51 13:21 14:11 14:50 Pulse 47 47 45 46 Resp 14 16 20 18 B/P (MAP) 84/53 (63) 92/52 (65) 94/55 (68) 104/58 (73) Pulse Ox 97 97 99 97 O2 Delivery Nasal Cannula Nasal Cannula Nasal Cannula Room Air O2 Flow Rate 2.0 2.0 4.0 04/27/21 04/27/21 04/27/21 04/27/21 15:51 15:52 16:51 19:16 Temp 98.1 98.1 Pulse 46 60 51 Resp 18 16 21 B/P (MAP) 106/62 (77) 115/62 (79) 92/54 (67) Pulse Ox 99 100 99 100 O2 Delivery Room Air Room Air Room Air Room Air 04/27/21 04/27/21 04/28/21 04/28/21 20:00 22:43 02:39 07:00 Temp 98.0 98.3 97.7 98.0 98.3 97.7 Pulse 46 46 53 Resp 21 21 20 B/P (MAP) 101/55 (70) 96/43 (60) 100/50 (67) Pulse Ox 100 95 100 O2 Delivery Nasal Cannula Room Air Room Air Room Air O2 Flow Rate 2.0 04/28/21 04/28/21 04/28/21 08:00 08:43 10:28 Temp 97.7 97.7 Pulse 53 86 Resp 18 B/P (MAP) 100/50 98/56 (70) Pulse Ox 99 O2 Delivery Nasal Cannula Room Air O2 Flow Rate 2.0 Intake and Output 04/27/21 04/27/21 04/28/21 15:00 23:00 07:00 Intake Total 1500 ml 250 ml 200 ml Output Total 100 ml 900 ml Balance 1400 ml -650 ml 200 ml Justifications for Admission Other Justification Hypotension SAEID MARTIN Apr 28, 2021 12:49
[2021-04-28 14:57] VITALS: BP 95/47
[2021-04-28] MEDS: DAPTOmycin (GENERIC) IVPB 430 MG in IV NORMAL SALINE 50ML 50 ML IV SCH (15:00)
[2021-04-28 19:00] VITALS: BP 148/99
[2021-04-28] MEDS: ATORVASTATIN CALCIUM 40 MG TABLET. PO SCH (20:44)
[2021-04-28] MEDS: LACTOBACILLUS RHAMNOSUS GG 1 CAPSULE. PO SCH (20:44)
[2021-04-28] MEDS: TAMSULOSIN 0.4 MG CAP.ER.24H. PO SCH (20:44)
[2021-04-28] MEDS: QUEtiapine 100 MG TABLET. PO SCH (20:44)
[2021-04-28 22:40] VITALS: BP_SYST 91; BP_SYST 93; BP_DIAS 25; BP_DIAS 47
[2021-04-29] MEDS: MEROPENEM 500 MG in IV NORMAL SALINE 50ML 50 ML IV SCH ×4 (00:07→17:57)
[2021-04-29 02:40] VITALS: BP 106/56
[2021-04-29 07:00] VITALS: BP 123/69
[2021-04-29] MEDS: GABAPENTIN 300 MG CAPSULE. PO SCH ×3 (09:00→22:39)
[2021-04-29] MEDS: OLANZapine 5 MG TABLET PO SCH ×2 (09:12→22:39)
[2021-04-29] MEDS: AMIODARONE HCL 200 MG TABLET. PO SCH (09:13)
[2021-04-29] MEDS: MULTIVITAMIN with MINERAL TABLET. PO SCH (09:13)
[2021-04-29] MEDS: FLUoxetine HCL 20 MG CAPSULE PO SCH (09:13)
[2021-04-29] MEDS: LACTOBACILLUS RHAMNOSUS GG 1 CAPSULE. PO SCH ×2 (09:14→22:39)
--- NOTE | 2021-04-29 10:05 | PDOC ---
PROGRESS NOTES Date of Service DATE: 04/29/21 TIME: 10:03 Subjective Subjective Patient seen in room this morning with Dr. Hyatt. He has no complaints. Objective Objective Vital Signs Date Time Temp Pulse Resp B/P (MAP) Pulse Ox O2 Delivery O2 Flow Rate FiO2 04/29/21 09:13 60 123/69 04/29/21 07:00 98.0 18 98 Room Air 98.0 04/28/21 20:00 2.0 Intake and Output 04/29/21 07:00 Intake Total 500 ml Output Total 1400 ml Balance -900 ml Intake Oral 500 ml Output Urine Total 1400 ml Physical Exam Physical Exam Comfortably resting Right thigh wound VAC removed, wound bed clean with healthy tissue throughout. Wound edges are clean with improvement and less erythema surrounding it. There is no drainage. He has a palpable right DP pulse his feet are warm bilaterally is incisions are healed. Plan Plan of Care PAD s/p right fem-AK pop bypass some time ago. s/p right leg debridement and muscle flap with wound vac placement 04/27 Continue wound vac therapy and IV abx per ID. Pt can increase activity as tolerated He came in with wolff catheter, therefore will defer to whoever ordered chronicity of it for orders. Apparently it was replaced by nursing last night. Scrotal elevation for swelling, support when getting up. OK for discharge from our standpoint once medically stable. If still here we will see with next vac change on Sunday. Comment Review of Relevant I have reviewed the following items rachel (where applicable) has been applied. Labs Laboratory Tests Test 04/27/21 12:30 04/28/21 05:10 White Blood Count 7.4 x10^3/uL (4.0-11.0) 9.0 x10^3/uL (4.0-11.0) Red Blood Count 2.98 x10^6/uL (4.30-5.70) 3.31 x10^6/uL (4.30-5.70) Hemoglobin 7.4 g/dL (13.0-17.5) 8.2 g/dL (13.0-17.5) Hematocrit 24.1 % (39.0-53.0) 26.7 % (39.0-53.0) Mean Corpuscular Volume 81 fL (79-100) 81 fL (79-100) Mean Corpuscular Hemoglobin 25 pg (25-35) 25 pg (25-35) Mean Corpuscular Hemoglobin Concent 31 g/dL (31-37) 31 g/dL (31-37) Red Cell Distribution Width 19.1 % (11.5-14.5) 19.0 % (11.5-14.5) Platelet Count 268 x10^3/uL (140-400) 318 x10^3/uL (140-400) Neutrophils (%) (Auto) 71 % (31-73) 75 % (31-73) Lymphocytes (%) (Auto) 14 % (24-48) 12 % (24-48) Monocytes (%) (Auto) 11 % (0-9) 8 % (0-9) Eosinophils (%) (Auto) 3 % (0-3) 4 % (0-3) Basophils (%) (Auto) 1 % (0-3) 1 % (0-3) Neutrophils # (Auto) 5.2 x10^3/uL (1.8-7.7) 6.8 x10^3/uL (1.8-7.7) Lymphocytes # (Auto) 1.0 x10^3/uL (1.0-4.8) 1.1 x10^3/uL (1.0-4.8) Monocytes # (Auto) 0.8 x10^3/uL (0.0-1.1) 0.7 x10^3/uL (0.0-1.1) Eosinophils # (Auto) 0.2 x10^3/uL (0.0-0.7) 0.4 x10^3/uL (0.0-0.7) Basophils # (Auto) 0.1 x10^3/uL (0.0-0.2) 0.1 x10^3/uL (0.0-0.2) Sodium Level 137 mmol/L (136-145) Potassium Level 4.9 mmol/L (3.5-5.1) Chloride Level 107 mmol/L (98-107) Carbon Dioxide Level 20 mmol/L (21-32) Anion Gap 10 (6-14) Blood Urea Nitrogen 38 mg/dL (8-26) Creatinine 1.7 mg/dL (0.7-1.3) Estimated GFR (Cockcroft-Gault) 40.7 Glucose Level 78 mg/dL (70-99) Calcium Level 7.9 mg/dL (8.5-10.1) Microbiology 04/27/21 Gram Stain - Final, Resulted 04/27/21 Aerobic and Anaerobic Culture - Preliminary, Resulted Medications Current Medications Heparin Sodium (Porcine) 5000 unit/Sodium Chloride 505 ml @ 505 mls/hr 1X ONCE IRR Last administered on 04/27/21at 08:25; Start 04/27/21 at 06:00; Stop 04/27/21 at 06:59; Status DC Cefazolin Sodium 1 gm/Sodium Chloride 500 ml @ 500 mls/hr 1X ONCE IRR Last administered on 04/27/21at 08:25; Start 04/27/21 at 06:00; Stop 04/27/21 at 06:59; Status DC Fentanyl Citrate (Fentanyl 2ml Vial) 25 mcg PRN Q5MIN PRN IVP MILD PAIN 1-3; Start 04/27/21 at 06:00; Stop 04/28/21 at 05:59; Status DC Fentanyl Citrate (Fentanyl 2ml Vial) 50 mcg PRN Q5MIN PRN IVP MODERATE PAIN 4- 6; Start 04/27/21 at 06:00; Stop 04/28/21 at 05:59; Status DC Morphine Sulfate (Morphine Sulfate) 1 mg PRN Q10MIN PRN IVP SEVERE PAIN 7-10; Start 04/27/21 at 06:00; Stop 04/28/21 at 05:59; Status DC Ringer's Solution 1,000 ml @ 30 mls/hr Q24H IV Last administered on 04/27/21at 06:57; Start 04/27/21 at 06:00; Stop 04/27/21 at 17:59; Status DC Hydromorphone HCl (Dilaudid) 0.5 mg PRN Q10MIN PRN IVP SEVERE PAIN 7-10, 2nd CHOICE; Start 04/27/21 at 06:00; Stop 04/28/21 at 05:59; Status DC Prochlorperazine Edisylate (Compazine) 5 mg PACU PRN PRN IVP NAUSEA, MRX1; Start 04/27/21 at 06:00; Stop 04/28/21 at 05:59; Status DC Cefazolin Sodium/ Dextrose 50 ml @ 100 mls/hr 1X PREOP PRN IV PRIOR TO PROCEDURE; Start 04/27/21 at 06:00; Stop 04/27/21 at 18:00; Status DC Cellulose (Surgicel Fibrillar 1x2) 1 each STK-MED ONCE .ROUTE Last administered on 04/27/21at 08:58; Start 04/27/21 at 06:55; Stop 04/27/21 at 06:55; Status DC Iohexol (Omnipaque 300 Mg/ml) 50 ml STK-MED ONCE .ROUTE ; Start 04/27/21 at 06:55; Stop 04/27/21 at 06:55; Status DC Protamine Sulfate (Protamine) 50 mg STK-MED ONCE IV ; Start 04/27/21 at 06:55; Stop 04/27/21 at 06:55; Status DC Lidocaine HCl (Lidocaine Pf 2% Vial) 5 ml STK-MED ONCE .ROUTE ; Start 04/27/21 at 07:08; Stop 04/27/21 at 07:08; Status DC Ondansetron HCl (Zofran) 4 mg STK-MED ONCE .ROUTE ; Start 04/27/21 at 07:08; Stop 04/27/21 at 07:08; Status DC Propofol (Diprivan) 200 mg STK-MED ONCE IV ; Start 04/27/21 at 07:08; Stop 04/27/21 at 07:08; Status DC Etomidate (Amidate) 20 mg STK-MED ONCE IV ; Start 04/27/21 at 07:08; Stop 04/27/21 at 07:08; Status DC Dexamethasone Sodium Phosphate (Decadron) 4 mg STK-MED ONCE .ROUTE ; Start 04/27/21 at 07:08; Stop 04/27/21 at 07:08; Status DC Sevoflurane (Ultane) 90 ml STK-MED ONCE IH ; Start 04/27/21 at 07:08; Stop 04/27/21 at 07:08; Status DC Fentanyl Citrate (Fentanyl 2ml Vial) 100 mcg STK-MED ONCE .ROUTE ; Start 04/27/21 at 07:08; Stop 04/27/21 at 07:08; Status DC Succinylcholine Chloride (Anectine) 200 mg STK-MED ONCE .ROUTE ; Start 04/27/21 at 07:09; Stop 04/27/21 at 07:09; Status DC Rocuronium [place] (Zemuron) 50 mg STK-MED ONCE .ROUTE ; Start 04/27/21 at 07:24; Stop 04/27/21 at 07:24; Status DC Vasopressin (Vasostrict) 20 unit STK-MED ONCE .ROUTE ; Start 04/27/21 at 07:26; Stop 04/27/21 at 07:27; Status DC Ketamine HCl (Ketamine) 50 mg STK-MED ONCE .ROUTE ; Start 04/27/21 at 08:29; Stop 04/27/21 at 08:30; Status DC Sugammadex Sodium (Bridion) 200 mg 1X ONCE IVP ; Start 04/27/21 at 09:00; Stop 04/27/21 at 09:01; Status DC Vancomycin HCl (Vanco Per Pharmacy) 1 each PRN DAILY PRN MC SEE COMMENTS; Start 04/27/21 at 10:30; Stop 04/27/21 at 13:55; Status DC Piperacillin Sod/ Tazobactam Sod (Zosyn Per Pharmacy) 1 each PRN DAILY PRN MC SEE COMMENTS; Start 04/27/21 at 10:30; Status Cancel Amiodarone HCl (Cordarone) 200 mg DAILY PO Last administered on 04/29/21at 09:13; Start 04/27/21 at 12:00 Atorvastatin Calcium (Lipitor) 40 mg QHS PO Last administered on 04/28/21at 20:44; Start 04/27/21 at 21:00 Clopidogrel Bisulfate (Plavix) 75 mg DAILY PO ; Start 04/28/21 at 09:00; Stop 04/28/21 at 08:28; Status DC Docusate Sodium (Colace) 100 mg PRN DAILY PRN PO HARD STOOLS; Start 04/27/21 at 10:30 Fluoxetine HCl (PROzac) 20 mg DAILY PO Last administered on 04/29/21at 09:13; Start 04/27/21 at 12:00 Haloperidol Lactate (HALDOL 2mg ORAL CONC) 2 mg PRN Q6HRS PRN PO angry outbursts Last administered on 04/28/21at 08:42; Start 04/27/21 at 10:30 Albuterol Sulfate (Ventolin Neb Soln) 2.5 mg PRN BID PRN NEB SHORTNESS OF BREATH; Start 04/27/21 at 11:45 Metoprolol Succinate (Toprol Xl) 150 mg DAILY PO ; Start 04/28/21 at 09:00; Stop 04/27/21 at 11:25; Status DC Multivitamins (Thera M Plus) 1 tab DAILY PO Last administered on 04/29/21at 09:13; Start 04/28/21 at 09:00 Olanzapine (ZyPREXA) 5 mg BID PO Last administered on 04/29/21at 09:12; Start 04/27/21 at 12:00 Quetiapine Fumarate (SEROquel) 100 mg HS PO Last administered on 04/28/21at 20:44; Start 04/27/21 at 21:00 Tamsulosin HCl (Flomax) 0.4 mg QHS PO Last administered on 04/28/21at 20:44; Start 04/27/21 at 21:00 Gabapentin (Neurontin) 300 mg TID PO Last administered on 04/29/21at 09:00; Start 04/27/21 at 14:00 Vancomycin HCl 1.75 gm/Sodium Chloride 500 ml @ 250 mls/hr 1X ONCE IV Last administered on 04/27/21at 12:22; Start 04/27/21 at 11:45; Stop 04/27/21 at 13:44; Status DC Piperacillin Sod/ Tazobactam Sod 3.375 gm/Sodium Chloride 50 ml @ 100 mls/hr Q6HRS IV ; Start 04/27/21 at 12:00; Stop 04/27/21 at 13:55; Status DC Sodium Chloride 500 ml @ 250 mls/hr 1X ONCE IV Last administered on 04/27/21at 14:39; Start 04/27/21 at 13:45; Stop 04/27/21 at 15:44; Status DC Daptomycin 430 mg/ Sodium Chloride 50 ml @ 100 mls/hr Q24H IV Last administered on 04/28/21at 15:00; Start 04/27/21 at 15:00 Meropenem 500 mg/ Sodium Chloride 50 ml @ 100 mls/hr Q6HRS IV Last administered on 04/29/21at 05:54; Start 04/27/21 at 18:00 Lactobacillus Rhamnosus (Culturelle) 1 cap BID PO Last administered on 04/29/21at 09:14; Start 04/28/21 at 21:00 Active Scripts Active Colace (Docusate Sodium) 100 Mg Capsule 100 Mg PO PRN DAILY PRN Flomax (Tamsulosin Hcl) 0.4 Mg Cap.er.24h 0.4 Mg PO QHS Thera-M Tablet (Multivits,Ca,Minerals/Iron/Fa) 1 Each Tablet 1 Tab PO DAILY Atorvastatin Calcium 40 Mg Tablet 40 Mg PO QHS 30 Days Reported Seroquel (Quetiapine Fumarate) 100 Mg Tablet 100 Mg PO HS Olanzapine 5 Mg Tablet 5 Mg PO BID Probiotic (Lactobacillus Acidophilus) 1 Each Capsule 1 Each PO BID Duoneb 0.5-3(2.5) Mg/3 Ml (Albuterol/Ipratropium) 3 Ml Ampul.neb 3 Ml NEB PRN BID PRN Haloperidol Lactate 2 Mg/1 Ml Oral.conc 2 Mg PO PRN Q4-6HRS PRN Gabapentin 600 Mg Tablet 300 Mg PO TID Fluoxetine Hcl 20 Mg Capsule 20 Mg PO DAILY Clopidogrel (Clopidogrel Bisulfate) 75 Mg Tablet 75 Mg PO DAILY Amiodarone Hcl 200 Mg Tablet 200 Mg PO DAILY Eliquis (Apixaban) 5 Mg Tablet 5 Mg PO BID Vitals/I & O Vital Sign - Last 24 Hours 04/28/21 04/28/21 04/28/21 04/28/21 10:28 14:57 19:00 20:00 Temp 97.7 97.9 98.0 97.7 97.9 98.0 Pulse 86 65 62 Resp 18 18 20 B/P (MAP) 98/56 (70) 95/47 (63) 148/99 (115) Pulse Ox 99 98 98 O2 Delivery Room Air Room Air Room Air Nasal Cannula O2 Flow Rate 2.0 04/28/21 04/29/21 04/29/21 04/29/21 22:40 02:40 07:00 09:13 Temp 96.3 97.8 98.0 96.3 97.8 98.0 Pulse 61 57 60 60 Resp 18 18 18 B/P (MAP) 91/47 (62) 106/56 (73) 123/69 (87) 123/69 Pulse Ox 94 95 98 O2 Delivery Room Air Room Air Room Air Intake and Output 04/28/21 04/28/21 04/29/21 15:00 23:00 07:00 Intake Total 500 ml 0 ml 0 ml Output Total 400 ml 150 ml 850 ml Balance 100 ml -150 ml -850 ml Justifications for Admission Other Justification Hypotension SAEID MARTIN Apr 29, 2021 10:05
--- NOTE | 2021-04-29 10:39 | PDOC ---
[facility] PROGRESS NOTE Date of Service DOS: DATE: 04/29/21 TIME: 10:37 Chief Complaint Chief Complaint Severe peripheral vascular disease Postop day #1 (Procedure: #1 right lower extremity wound irrigation and debridement #2 right lower extremity sartorius flap #3 wound VAC placement 15 x 6 x 4 cm) Positive for diabetes mellitus, hypertension, hyperlipidemia, coronary artery disease, multiple toe amputations done, right leg bypass done with a wound onto the right groin, coronary artery bypass grafting done. History of Present Illness History of Present Illness 04/29/2021 Patient seen and examined He is resting with no apparent distress Discussed with Dr. Hyatt vascular surgery Patient is still on IV meropenem and daptomycin I discussed the case with case management he can go to fdc currently due to the antibiotic expenses and logistical issues with his admission disposition He might build to go to fdc Sunday? 04/28/2021 Patient resting with no apparent distress Discussed with RN Chart reviewed Discussed with vascular surgery they would like to keep him till tomorrow so they can place a wound VAC Vitals/I&O Vitals/I&O: Vital Signs Date Time Temp Pulse Resp B/P (MAP) Pulse Ox O2 Delivery O2 Flow Rate FiO2 04/29/21 09:13 60 123/69 04/29/21 07:00 98.0 18 98 Room Air 98.0 04/28/21 20:00 2.0 I & O 04/28/21 04/28/21 04/29/21 15:00 23:00 07:00 Intake Total 500 ml 0 ml 0 ml Output Total 400 ml 150 ml 850 ml Balance 100 ml -150 ml -850 ml Physical Exam General: No acute distress Heart: Regular rate, Normal S1 Lungs: Clear, Other Abdomen: Normal bowel sounds, Soft Extremities: Other (Wound VAC in place with bloody output, multiple amputations) Assessment and Plan Assessmemt and Plan Severe peripheral vascular disease Postop day #1 (Procedure: #1 right lower extremity wound irrigation and debridement #2 right lower extremity sartorius flap #3 wound VAC placement 15 x 6 x 4 cm) Positive for diabetes mellitus, hypertension, hyperlipidemia, coronary artery disease, multiple toe amputations done, right leg bypass done with a wound onto the right groin, coronary artery bypass grafting done. Plan We hope to get him to fdc Sunday? For now continue IV antibiotics Dapto and mitra Wound care Wound VAC Home meds DVT prophylaxis Full code Trend labs Encourage p.o. intake Hope to discharge to skilled Sunday but this will be difficult because of the antibiotic cost Comment Review of Relevant I have reviewed the following items rachel (where applicable) has been applied. Medications: Current Medications Medications (Trade) Dose Ordered Sig/Lizzeth Route PRN Reason Start Time Stop Time Status Last Admin Dose Admin Lactobacillus Rhamnosus (Culturelle) 1 cap BID PO 04/28/21 21:00 04/29/21 09:14 Justifications for Admission Other Justification Hypotension DARIO LOPEZ III DO Apr 29, 2021 10:39
--- NOTE | 2021-04-29 10:59 | NUR ---
Wound/Ostomy Care Wound Type/Assessment: Patient seen per wound care consult. See wound assessment. Patient is well known to us from previous admissions and from the wound care clinic. Patient has surgical incision to the right anterior medial thigh done with the vascular group who is also familiar with this patient. Vascular had removed vac prior to our arrival and was dressed with WTD dressing. Wound cleansed, assessed, measured, and pictured. The wound is well granulation with minimal slough, adipose exposed. Patient not having much pain at this time. Treatment Recommendations/Plan: Orders to continue with wound vac therapy at 125mmHg continuous. Skin prepped for vac placement, one piece of vac foam applied to wound bed and vac tracked just above wound to the right upper thigh, a good seal maintained at 125mmHg. No other wounds noted upon complete head to toe assessment. Education provided: Unable to educated due to mental status, patient sleeping during most of procedure. Offloading surface/device: Patient repositioned using purple wedge and placed on his left side, patient has bilateral Rooke boots in room, not reapplied per his request. Recommended Referrals/Tests: Wound care, vascular, and ID following. Discharge Recommendations for dressings: Conintue current treatment, patient will discharge to facility when the time comes. Bed lowered, call light in reach, and bed alarm in place. Wound care will follow up on 05/02/21.
[2021-04-29 11:00] VITALS: BP 106/53
--- NOTE | 2021-04-29 12:56 | PDOC ---
Infectious Disease Note Subjective Subjective Patient is feeling better ROS ROS No nausea vomiting diarrhea chest pain shortness of breath Vital Sign Vital Signs Vital Signs Date Time Temp Pulse Resp B/P (MAP) Pulse Ox O2 Delivery O2 Flow Rate FiO2 04/29/21 11:00 97.9 63 18 106/53 (70) 95 Room Air 97.9 04/29/21 08:00 2.0 Physical Exam PHYSICAL EXAM GENERAL: Arousable, but not to his baseline, lethargic gentleman, not in any distress. VITAL SIGNS: reviewed HEENT: Both pupils are round and reacting. No conjunctival lesion, no lesion in the mouth. NECK: Supple, no JVP, no lymphadenopathy. LUNGS: Clear. HEART: S1, S2, regular. ABDOMEN: Soft, nontender, no organomegaly. EXTREMITIES: No edema or cyanosis. SKIN: His right groin wound with vac present, no fluctuance. Rest of the skin exam is unremarkable. NEUROLOGIC: The patient is arousable, opens eyes, maybe nods, but not communicative or not interactive like his baseline. Labs Micro Microbiology 04/27/21 Gram Stain - Final, Resulted 04/27/21 Aerobic and Anaerobic Culture - Preliminary, Resulted Objective Assessment IMPRESSION: RLE fem-pop bypass with evidence of possible infection, s/p I and D ,flap and wound vac today Recent aspiration ,cult negative PAD Right groin wound, which is clean and superficial, do not see any infection there. Coronary artery disease. Peripheral arterial disease. Plan Plan of Care Continue antibiotic Continue supportive care PT OT Wound VAC YEISON MAXWELL MD Apr 29, 2021 12:56
[2021-04-29 15:00] VITALS: BP 121/73
[2021-04-29] MEDS: DAPTOmycin (GENERIC) IVPB 430 MG in IV NORMAL SALINE 50ML 50 ML IV SCH (15:00)
--- NOTE | 2021-04-29 17:03 | HP ---
DATE OF SERVICE: 04/29/2021 ADMIT DATE: 04/28/2021 CHIEF COMPLAINT: Infected graft site on the right thigh. HISTORY OF PRESENT ILLNESS: The patient is a pleasant 65-year-old male with multiple-multiple comorbidities including severe vascular disease. He presented today for an infected graft site on the right thigh. Dr. Joy Guzman took him to surgery and performed a right lower extremity wound irrigation and debridement and right lower extremity sartorius flap and wound VAC placement. PAST MEDICAL HISTORY: Severe peripheral vascular disease, multiple comorbidities including AFib, CHF, CAD, hypertension, hyperlipidemia, myocardial infarction, intermittent metabolic encephalopathy, COPD, peptic ulcer disease, osteoarthritis, polypharmacy, history of bypass surgery. ALLERGIES: None. FAMILY HISTORY: Diabetes and hypertension. SOCIAL HISTORY: He does not drink, smoke or take drugs. MEDICATIONS: Reviewed. Please refer to the MRAD. REVIEW OF SYSTEMS: Unable to obtain. He is obtunded. PHYSICAL EXAMINATION: VITALS: Within normal limits and are stable. GENERAL: He is obtunded. HEENT: Normal cephalic atraumatic, external auditory canals are patent. EYES: Extraocular muscles are intact, pupils are equally round and reactive to light and accommodation. MUSCULOSKELETAL: Well developed, well nourished, good range of motion. ENDOCRINE: No thyromegaly was palpated. LYMPHATICS: No cervical chain or axillary nodes were noted. HEMATOPOIETIC: No bruising. NECK: Supple, no JVD, no thyromegaly was noted. LUNGS: Clear to auscultation in all lung lozoya without rhonchi or wheezing. HEART: RRR, S1, S2 present. Peripheral pulses intact, no obvious murmurs were noted. ABDOMEN: Soft, nontender. Positive bowel sounds no organomegaly, normal bowel sounds. EXTREMITIES: He has a wound VAC to the right medial thigh. NEUROLOGIC: He is obtunded. PSYCHIATRIC: He is obtunded. SKIN: No ulcerations or rashes, good skin turgor, no jaundice. VASCULAR: Good capillary refill, neurovascular bundle appears to be intact. ASSESSMENT AND PLAN: Postop right medial thigh debridement and wound VAC placement. For now, we have given him IV antibiotics. Wound care, home meds. Deep venous thrombosis prophylaxis. Full code. CALISTA/KALEB DR: Tano TID: [id number]
[2021-04-29 19:00] VITALS: BP 122/62
[2021-04-29] MEDS: TAMSULOSIN 0.4 MG CAP.ER.24H. PO SCH (22:39)
[2021-04-29] MEDS: ATORVASTATIN CALCIUM 40 MG TABLET. PO SCH (22:39)
[2021-04-29] MEDS: QUEtiapine 100 MG TABLET. PO SCH (22:39)
[2021-04-29 23:00] VITALS: BP 119/57
[2021-04-30] MEDS: MEROPENEM 500 MG in IV NORMAL SALINE 50ML 50 ML IV SCH ×5 (00:12→22:43)
[2021-04-30 03:00] VITALS: BP 128/64
[2021-04-30 07:00] VITALS: BP 158/82
[2021-04-30] MEDS: OLANZapine 5 MG TABLET PO SCH ×2 (08:14→21:38)
[2021-04-30] MEDS: AMIODARONE HCL 200 MG TABLET. PO SCH (08:15)
[2021-04-30] MEDS: GABAPENTIN 300 MG CAPSULE. PO SCH ×3 (08:15→21:39)
[2021-04-30] MEDS: FLUoxetine HCL 20 MG CAPSULE PO SCH (08:15)
[2021-04-30] MEDS: LACTOBACILLUS RHAMNOSUS GG 1 CAPSULE. PO SCH ×2 (08:15→21:38)
[2021-04-30] MEDS: MULTIVITAMIN with MINERAL TABLET. PO SCH (08:15)
[2021-04-30 11:00] VITALS: BP 109/58
[2021-04-30] MEDS: DAPTOmycin (GENERIC) IVPB 430 MG in IV NORMAL SALINE 50ML 50 ML IV SCH (13:56)
[2021-04-30 15:00] VITALS: BP 123/65
--- NOTE | 2021-04-30 17:17 | PDOC ---
[facility] PROGRESS NOTE Date of Service DOS: DATE: 04/30/21 TIME: 17:16 Chief Complaint Chief Complaint Severe peripheral vascular disease Postop day #1 (Procedure: #1 right lower extremity wound irrigation and debridement #2 right lower extremity sartorius flap #3 wound VAC placement 15 x 6 x 4 cm) Positive for diabetes mellitus, hypertension, hyperlipidemia, coronary artery disease, multiple toe amputations done, right leg bypass done with a wound onto the right groin, coronary artery bypass grafting done. History of Present Illness History of Present Illness 04/30. try OOB, PO intake, PT and OT appears weak has wound vac, pain OK, no ne complaints plan skilled soon 04/29/2021 Patient seen and examined He is resting with no apparent distress Discussed with Dr. Hyatt vascular surgery Patient is still on IV meropenem and daptomycin I discussed the case with case management he can go to senior living currently due to the antibiotic expenses and logistical issues with his admission disposition He might build to go to senior living Sunday? 04/28/2021 Patient resting with no apparent distress Discussed with RN Chart reviewed Discussed with vascular surgery they would like to keep him till tomorrow so they can place a wound VAC Vitals/I&O Vitals/I&O: Vital Signs Date Time Temp Pulse Resp B/P (MAP) Pulse Ox O2 Delivery O2 Flow Rate FiO2 04/30/21 15:00 97.8 72 20 123/65 (84) 94 Room Air 97.8 04/30/21 08:00 2.0 I & O 04/29/21 04/29/21 04/30/21 15:00 23:00 07:00 Intake Total 50 ml 400 ml Output Total 750 ml 750 ml 1200 ml Balance -750 ml -700 ml -800 ml Physical Exam Physical Exam: GENERAL: Arousable, but not to his baseline, lethargic gentleman, not in any distress. VITAL SIGNS: reviewed HEENT: Both pupils are round and reacting. No conjunctival lesion, no lesion in the mouth. NECK: Supple, no JVP, no lymphadenopathy. LUNGS: Clear. HEART: S1, S2, regular. ABDOMEN: Soft, nontender, no organomegaly. EXTREMITIES: No edema or cyanosis. SKIN: His right groin wound with vac present, no fluctuance. Rest of the skin exam is unremarkable. NEUROLOGIC: The patient is arousable, opens eyes, maybe nods, but not communicative or not interactive like his baseline. General: No acute distress Heart: Regular rate, Normal S1 Lungs: Clear, Other Abdomen: Normal bowel sounds, Soft Extremities: Other (Wound VAC in place with bloody output, multiple amputations) Labs Labs: Laboratory Tests Test 04/30/21 17:07 Glucose (Fingerstick) 80 mg/dL (70-99) Comment Review of Relevant I have reviewed the following items rachel (where applicable) has been applied. Justifications for Admission Other Justification Hypotension ADAMS DUONG MD Apr 30, 2021 17:17
[2021-04-30 19:00] VITALS: BP 113/65
[2021-04-30] MEDS: QUEtiapine 100 MG TABLET. PO SCH (21:38)
[2021-04-30] MEDS: TAMSULOSIN 0.4 MG CAP.ER.24H. PO SCH (21:38)
[2021-04-30] MEDS: ATORVASTATIN CALCIUM 40 MG TABLET. PO SCH (21:38)
[2021-04-30 23:00] VITALS: BP 119/67
[2021-05-01 03:00] VITALS: BP 99/50
[2021-05-01] MEDS: MEROPENEM 500 MG in IV NORMAL SALINE 50ML 50 ML IV SCH ×4 (06:06→23:39)
[2021-05-01 07:00] VITALS: BP 112/65
[2021-05-01] MEDS: GABAPENTIN 300 MG CAPSULE. PO SCH ×3 (08:26→20:58)
[2021-05-01] MEDS: AMIODARONE HCL 200 MG TABLET. PO SCH (08:26)
[2021-05-01] MEDS: LACTOBACILLUS RHAMNOSUS GG 1 CAPSULE. PO SCH ×2 (08:26→20:57)
[2021-05-01] MEDS: MULTIVITAMIN with MINERAL TABLET. PO SCH (08:26)
[2021-05-01] MEDS: OLANZapine 5 MG TABLET PO SCH ×2 (08:26→20:58)
[2021-05-01] MEDS: FLUoxetine HCL 20 MG CAPSULE PO SCH (08:27)
[2021-05-01 10:37] VITALS: BP 113/60
[2021-05-01] MEDS: APIXABAN 5 MG TABLET. PO SCH ×2 (13:18→20:57)
[2021-05-01] MEDS: NYSTATIN TOPICAL POWDER 15GM BOTTLE. TP SCH ×2 (14:10→20:58)
[2021-05-01] MEDS: DAPTOmycin (GENERIC) IVPB 430 MG in IV NORMAL SALINE 50ML 50 ML IV SCH (14:45)
[2021-05-01 15:00] VITALS: BP 95/51
--- NOTE | 2021-05-01 15:44 | PDOC ---
[employer] PROGRESS NOTE Date of Service DOS: DATE: 05/01/21 TIME: 15:44 Chief Complaint Chief Complaint Severe peripheral vascular disease Postop day #1 (Procedure: #1 right lower extremity wound irrigation and debridement #2 right lower extremity sartorius flap #3 wound VAC placement 15 x 6 x 4 cm) Positive for diabetes mellitus, hypertension, hyperlipidemia, coronary artery disease, multiple toe amputations done, right leg bypass done with a wound onto the right groin, coronary artery bypass grafting done. History of Present Illness History of Present Illness 05/01, restart plavix cont IV abx plan placement he looks better 04/30. try OOB, PO intake, PT and OT appears weak has wound vac, pain OK, no ne complaints plan skilled soon 04/29/2021 Patient seen and examined He is resting with no apparent distress Discussed with Dr. Hyatt vascular surgery Patient is still on IV meropenem and daptomycin I discussed the case with case management he can go to alf currently due to the antibiotic expenses and logistical issues with his admission disposition He might build to go to alf Sunday? 04/28/2021 Patient resting with no apparent distress Discussed with RN Chart reviewed Discussed with vascular surgery they would like to keep him till tomorrow so they can place a wound VAC Vitals/I&O Vitals/I&O: Vital Signs Date Time Temp Pulse Resp B/P (MAP) Pulse Ox O2 Delivery O2 Flow Rate FiO2 05/01/21 10:37 98.6 74 18 113/60 (77) 98 Nasal Cannula 2.0 98.6 I & O 04/30/21 04/30/21 05/01/21 15:00 23:00 07:00 Intake Total 600 ml 100 ml Output Total 550 ml Balance -550 ml 600 ml 100 ml Physical Exam Physical Exam: GENERAL: Arousable, but not to his baseline, lethargic gentleman, not in any distress. VITAL SIGNS: reviewed HEENT: Both pupils are round and reacting. No conjunctival lesion, no lesion in the mouth. NECK: Supple, no JVP, no lymphadenopathy. LUNGS: Clear. HEART: S1, S2, regular. ABDOMEN: Soft, nontender, no organomegaly. EXTREMITIES: No edema or cyanosis. SKIN: His right groin wound with vac present, no fluctuance. Rest of the skin exam is unremarkable. NEUROLOGIC: The patient is arousable, opens eyes, maybe nods, but not communicative or not interactive like his baseline. General: No acute distress Heart: Regular rate, Normal S1 Lungs: Clear, Other Abdomen: Normal bowel sounds, Soft Extremities: Other (Wound VAC in place with bloody output, multiple amputations) Labs Labs: Laboratory Tests Test 04/30/21 17:07 Glucose (Fingerstick) 80 mg/dL (70-99) Comment Review of Relevant I have reviewed the following items rachel (where applicable) has been applied. Medications: Current Medications Medications (Trade) Dose Ordered Sig/Lizzeth Route PRN Reason Start Time Stop Time Status Last Admin Dose Admin Apixaban (Eliquis) 5 mg BID PO 05/01/21 12:45 05/01/21 13:18 Nystatin (Nystop) 1 shamika BID TP 05/01/21 14:00 05/01/21 14:10 Justifications for Admission Other Justification Hypotension ADAMS DUONG MD May 01, 2021 15:44
[2021-05-01 19:00] VITALS: BP 124/71
--- NOTE | 2021-05-01 19:20 | NUR ---
Pt in bed assessment completed pt denied pain at this time, pt reoriented to surroundings and call light pt reminded to call for assistance prior to getting oob will resume care and continue to monitor pt.
[2021-05-01] MEDS: ATORVASTATIN CALCIUM 40 MG TABLET. PO SCH (20:57)
[2021-05-01] MEDS: QUEtiapine 100 MG TABLET. PO SCH (20:57)
[2021-05-01] MEDS: TAMSULOSIN 0.4 MG CAP.ER.24H. PO SCH (20:58)
[2021-05-01 22:00] VITALS: BP 141/79
[2021-05-02 02:56] VITALS: BP 104/63
[2021-05-02] MEDS: MEROPENEM 500 MG in IV NORMAL SALINE 50ML 50 ML IV SCH (05:33)
[2021-05-02 05:47] LABS: HEMATOCRIT 22.9 % (39.0-53.0); HEMOGLOBIN 7.3 g/dL (13.0-17.5); RED BLOOD COUNT 2.87 x10^6/uL (4.30-5.70); RED CELL DISTRIBUTION WIDTH 19.1 % (11.5-14.5); WHITE BLOOD COUNT 4.7 x10^3/uL (4.0-11.0)
[2021-05-02 06:12] LABS: CALCIUM 7.7 mg/dL (8.5-10.1); CREATININE 0.9 mg/dL (0.7-1.3); GFR 84.7; POTASSIUM 4.3 mmol/L (3.5-5.1)
[2021-05-02 07:00] VITALS: BP 114/65
[2021-05-02] MEDS: NYSTATIN TOPICAL POWDER 15GM BOTTLE. TP SCH (09:00)
[2021-05-02] MEDS: OLANZapine 5 MG TABLET PO SCH (10:09)
[2021-05-02] MEDS: MULTIVITAMIN with MINERAL TABLET. PO SCH (10:09)
[2021-05-02] MEDS: FLUoxetine HCL 20 MG CAPSULE PO SCH (10:10)
[2021-05-02] MEDS: LACTOBACILLUS RHAMNOSUS GG 1 CAPSULE. PO SCH (10:10)
[2021-05-02] MEDS: APIXABAN 5 MG TABLET. PO SCH (10:10)
[2021-05-02] MEDS: AMIODARONE HCL 200 MG TABLET. PO SCH (10:10)
[2021-05-02] MEDS: GABAPENTIN 300 MG CAPSULE. PO SCH (10:10)
--- NOTE | 2021-05-02 10:55 | SNU/HH DC ---
DISCHARGE ORDERS DISCHARGE INFORMATION: CONDITION ON DISCHARGE: Stable CODE STATUS: Code Status: Full RESIDENTIAL: SNF STAY <30 DAYS: Yes HOSPICE: HOSPICE: No HOSPICE EVAL & TREAT: No LTAC: ADMIT TO LTAC: No POST DISCHARGE ORDERS: ACTIVITY ORDERS: Activity as tolerated WEIGHT BEARING STATUS: As tolerated BATHING ORDERS: No Tub Bath until see Dr. MERIDA AFTER DISCHARGE: Cardiac WOUND/INCISION CARE: Keep wound/cast CDI, Change dressing OTHER ORDERS: IV antibiotics per infectious disease recommendati CHECKS AFTER DISCHARGE: CHECKS AFTER DISCHARGE: Check blood press - daily, Check blood sugar, ac/hs, Weigh Yourself Daily FOLLOW-UP: LAB ORDERS FOR FOLLOW-UP: CBC, chem 12, on 02/01 TREATMENT/EQUIPMENT ORDERS: ADAPTIVE EQUIPMENT NEEDED: None Physical Therapy For: Evalulation/Treatment Occupational Therapy For: Evaluation/Treatment DISCHARGE MEDICATIONS: Home Meds Active Scripts Docusate Sodium (COLACE) 100 Mg Capsule, 100 MG PO PRN DAILY PRN for HARD STOOLS, #30 CAP Prov:ADAMS DUONG MD 04/13/21 Tamsulosin Hcl (FLOMAX) 0.4 Mg Cap.er.24h, 0.4 MG PO QHS for urine retention, #30 CAP.SR Prov:ADAMS DUONG MD 01/31/21 Multivits,Ca,Minerals/Iron/Fa (THERA-M TABLET) 1 Each Tablet, 1 TAB PO DAILY for wounds, #30 TAB Prov:ADAMS DUONG MD 01/31/21 Atorvastatin Calcium (ATORVASTATIN CALCIUM) 40 Mg Tablet, 40 MG PO QHS for 30 Days, #30 TAB Prov:JACINTO LOVE MD 08/07/16 Reported Medications Quetiapine Fumarate (SEROQUEL) 100 Mg Tablet, 100 MG PO HS for restlessness, TAB 04/20/21 Olanzapine (OLANZAPINE) 5 Mg Tablet, 5 MG PO BID for agitation, TAB 04/20/21 Lactobacillus Acidophilus (PROBIOTIC) 1 Each Capsule, 1 EACH PO BID for bowel health, CAP 04/20/21 Ipratropium/Albuterol Sulfate (DUONEB 0.5-3(2.5) MG/3 ML) 3 Ml Ampul.neb, 3 ML NEB PRN BID PRN for shortness of breath, EACH 04/20/21 Haloperidol Lactate (HALOPERIDOL LACTATE) 2 Mg/1 Ml Oral.conc, 2 MG PO PRN Q4- 6HRS PRN for angry outbursts, MISC 04/20/21 Gabapentin (GABAPENTIN) 600 Mg Tablet, 300 MG PO TID for NEUROGENIC PAIN, TAB 04/20/21 Fluoxetine Hcl (FLUOXETINE HCL) 20 Mg Capsule, 20 MG PO DAILY for depression, CAP 04/20/21 Clopidogrel Bisulfate (CLOPIDOGREL) 75 Mg Tablet, 75 MG PO DAILY for TO PREVENT BLOOD CLOTS, #30 TAB 0 Refills 04/20/21 Amiodarone Hcl (AMIODARONE HCL) 200 Mg Tablet, 200 MG PO DAILY for irrregular heart rhythm, TAB 04/20/21 Apixaban (ELIQUIS) 5 Mg Tablet, 5 MG PO BID, TAB 10/19/17 Discontinued Reported Medications Cefdinir (CEFDINIR) 300 Mg Capsule, 300 MG PO BID for skin infection, CAP 0 Refills 04/20/21 Discontinued Scripts Doxycycline Hyclate (DOXYCYCLINE HYCLATE) 100 Mg Tablet, 100 MG PO BID for skin infection, #20 TAB Prov:ADAMS DUONG MD 04/13/21 DARIO LOPEZ III DO May 02, 2021 10:55
[2021-05-02 11:00] VITALS: BP 93/55
--- NOTE | 2021-05-02 13:02 | PDOC ---
Infectious Disease Note Subjective Subjective Patient is feeling better ROS ROS no n/v/d/sob Vital Sign Vital Signs Vital Signs Date Time Temp Pulse Resp B/P (MAP) Pulse Ox O2 Delivery O2 Flow Rate FiO2 05/02/21 11:00 98.0 69 18 93/55 (68) 99 Room Air 98.0 05/01/21 15:00 2.0 Physical Exam PHYSICAL EXAM GENERAL: Arousable, but not to his baseline, not in any distress. VITAL SIGNS: reviewed HEENT: Both pupils are round and reacting. No conjunctival lesion, no lesion in the mouth. NECK: Supple, no JVP, no lymphadenopathy. LUNGS: Clear. HEART: S1, S2, regular. ABDOMEN: Soft, nontender, no organomegaly. EXTREMITIES: No edema or cyanosis. SKIN: His right groin wound with vac present, no fluctuance. Rest of the skin exam is unremarkable. NEUROLOGIC: The patient is arousable, opens eyes, maybe nods, but not communicative or not interactive like his baseline. Labs Lab Laboratory Tests Test 05/02/21 04:55 White Blood Count 4.7 x10^3/uL (4.0-11.0) Red Blood Count 2.87 x10^6/uL (4.30-5.70) Hemoglobin 7.3 g/dL (13.0-17.5) Hematocrit 22.9 % (39.0-53.0) Mean Corpuscular Volume 80 fL (79-100) Mean Corpuscular Hemoglobin 25 pg (25-35) Mean Corpuscular Hemoglobin Concent 32 g/dL (31-37) Red Cell Distribution Width 19.1 % (11.5-14.5) Platelet Count 340 x10^3/uL (140-400) Sodium Level 142 mmol/L (136-145) Potassium Level 4.3 mmol/L (3.5-5.1) Chloride Level 111 mmol/L (98-107) Carbon Dioxide Level 24 mmol/L (21-32) Anion Gap 7 (6-14) Blood Urea Nitrogen 14 mg/dL (8-26) Creatinine 0.9 mg/dL (0.7-1.3) Estimated GFR (Cockcroft-Gault) 84.7 Glucose Level 68 mg/dL (70-99) Calcium Level 7.7 mg/dL (8.5-10.1) Creatine Kinase 32 U/L (39-308) Micro Microbiology 04/27/21 Gram Stain - Final, Resulted 04/27/21 Aerobic and Anaerobic Culture - Preliminary, Resulted Objective Assessment IMPRESSION: RLE fem-pop bypass with evidence of possible infection, s/p I and D ,flap and wound vac today Recent aspiration ,cult negative PAD Right groin wound, which is clean and superficial, do not see any infection there. Coronary artery disease. Peripheral arterial disease. Plan Plan of Care Continue antibiotic Continue supportive care PT OT Wound VAC d/c on iv dapto and cefepime, ( NH cannot do meropenem sec to q8 ) d/w vascular surgery f/u with me in 2 wks YEISON MAXWELL MD May 02, 2021 13:02
--- NOTE | 2021-05-02 13:23 | PDOC ---
Provider Note Date of Service: DATE: 05/02/21 TIME: 13:18 Provider Note Provider Note No acute events. No growth on cultures from OR. Afebrile and no leukocytosis. right thigh erythema improved. mild edema, improving, no induration palpable DP b/l Continue wound vac, change today. At least 6 weeks of IV antibiotics, would prefer that antibiotics continue until wound heals given the underlying PTFE. Joy Guzman DO Justicifation of Admission Dx: Justifications for Admission: Justification of Admission Dx: No LA: Acute NSTEMI JOY GUZMAN DO May 02, 2021 13:23
[2021-05-02 15:00] VITALS: BP 105/62
--- NOTE | 2021-05-02 16:20 | NUR ---
Wound/Ostomy Care Wound Type/Assessment: Patient seen per wound care consult. See wound assessment. Patient is well known to us from previous admissions and from the wound care clinic. Patient has surgical incision to the right anterior medial thigh done with the vascular group who is also familiar with this patient. Vascular had removed vac prior to our arrival and was dressed with WTD dressing. Wound cleansed, assessed, measured, and pictured. The wound is well granulation with minimal slough, adipose exposed. Patient not having much pain at this time. Treatment Recommendations/Plan: Patient discharging today to [facility]. Therefore vac removed and wound cleansed, assessed, measured, and pictured. Wound redressed with xeroform gauze, ABD pads, and tape. Wound is still significantly painful. 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 Wound vac will most likely be reapplied at facility. Education provided: Patient educated today regarding POC, he is much more alert today and v/u. Offloading surface/device: Patient left on right side per his request. patient has bilateral Rooke boots in room, not reapplied per his request. Recommended Referrals/Tests: Wound care, vascular, and ID following. Discharge Recommendations for dressings: Conintue current treatment, patient will discharge to [facility] today. Ice chips given and bed lowered, call light in reach, and bed alarm in place.
[2021-05-02] MEDS ORDERED: CEFEPIME HCL IV Push 1 GM VIAL. IVP SCH (21:00)
[2021-05-03] MEDS ORDERED: HYDR-2763 PO (11:53)
--- NOTE | 2021-05-03 13:38 | DS ---
DATE OF DISCHARGE: 05/02/2021 ADMISSION DIAGNOSIS: Postoperative medial thigh infection. DISCHARGE DIAGNOSES: Postoperative medial thigh debridement with wound VAC placement and postoperative right lower extremity sartorius flap. HOSPITAL COURSE: The patient is a pleasant, middle-aged male who has severe peripheral vascular disease, admitted with wounds. We consulted Dr. Guzman. She took the patient to surgery and did a right lower extremity wound irrigation and debridement, a right lower extremity sartorius flap and placed a wound VAC. Yesterday, I saw and examined him. He is at his baseline. We discharged to skilled. DISPOSITION: Skilled. ACTIVITY: As tolerated. DIET: Low sodium. DISCHARGE MEDICATIONS: Please see the MRAD. TOTAL TIME: [address]: CALISTA/susie TID: [id number]
== END 2021-05-02 17:24 | DRG 857 ==
LOC: SURG 05:46 → 6 SOUTH 10:05 → OBSVTOIN 04-28 09:43
PROVIDERS: ADMIT Student in an Organized Health Care Education/Training Program; ATTEND Surgery Vascular Surgery
PROC: 0JBN0ZZ Excision of Right Lower Leg Subcutaneous Tissue and Fascia, Open Approach (ICD-10-PCS; principal; 2021-04-28)
DX: T81.41XA Infection following a procedure, superficial incisional surgical site, initial encounter (principal); D68.69 Other thrombophilia; I70.302 Unspecified atherosclerosis of unspecified type of bypass graft(s) of the extremities, left leg; S81.801A Unspecified open wound, right lower leg, initial encounter; E11.51 Type 2 diabetes mellitus with diabetic peripheral angiopathy without gangrene; E78.5 Hyperlipidemia, unspecified; I11.0 Hypertensive heart disease with heart failure; I25.10 Atherosclerotic heart disease of native coronary artery without angina pectoris; I25.2 Old myocardial infarction; I48.91 Unspecified atrial fibrillation; I50.9 Heart failure, unspecified; J44.9 Chronic obstructive pulmonary disease, unspecified; N28.9 Disorder of kidney and ureter, unspecified; Z79.02 Long term (current) use of antithrombotics/antiplatelets; Z82.49 Family history of ischemic heart disease and other diseases of the circulatory system; Z83.3 Family history of diabetes mellitus; Z87.11 Personal history of peptic ulcer disease; Z87.891 Personal history of nicotine dependence; Z95.1 Presence of aortocoronary bypass graft; F41.9 Anxiety disorder, unspecified; M19.90 Unspecified osteoarthritis, unspecified site; Z20.822 Contact with and (suspected) exposure to COVID-19
CPT/HCPCS: 36415; 80048; 82550; 82962; 85025; 85027; 85610; 85730; 87075; 94760; A4223; A4364; A4930; A6211; A6402; G0378; G0379; J0330; J0690; J0878; J1100; J1644; J2185; J2405; J2704; J2720; J3010; J3370; J3490; J7040; Q9967; 97110-GP; 97530-GP

== ENCOUNTER 2021-05-22 11:13 | Inpatient (IN) | payer MEDICARE ==
[~2021-05-22] VITALS: Ht 182.9 cm; Wt 90.4 kg
[~2021-05-22 11:13] MED LIST changes: +HYDR-2763 PO
[2021-05-22 11:55] LABS: BASO # 0.1 x10^3/uL (0.0-0.2); BASO % 2 % (0-3); EOS # 0.5 x10^3/uL (0.0-0.7); EOS % 8 % (0-3); HEMATOCRIT 22.4 % (39.0-53.0); LYMPH # 1.1 x10^3/uL (1.0-4.8); LYMPH % 16 % (24-48); MEAN CORPUSCULAR HEMOGLOBIN 24 pg (25-35); MEAN CORPUSCULAR HGB CONC 31 g/dL (31-37); MEAN CORPUSCULAR VOLUME 79 fL (79-100); MONO # 0.5 x10^3/uL (0.0-1.1); MONO % 8 % (0-9); NEUT # 4.6 x10^3/uL (1.8-7.7); NEUT % 67 % (31-73); PLATELET COUNT 374 x10^3/uL (140-400); RED BLOOD COUNT 2.85 x10^6/uL (4.30-5.70); RED CELL DISTRIBUTION WIDTH 19.3 % (11.5-14.5); WHITE BLOOD COUNT 6.9 x10^3/uL (4.0-11.0)
[2021-05-22 12:08] LABS: CALCIUM 7.8 mg/dL (8.5-10.1); CREATININE 0.9 mg/dL (0.7-1.3); GFR 84.7; POTASSIUM 4.1 mmol/L (3.5-5.1)
[2021-05-22 12:14] LABS: ALBUMIN/GLOBULIN RATIO 0.4 (1.0-1.7); TOTAL BILIRUBIN 0.5 mg/dL (0.2-1.0); TOTAL PROTEIN 6.7 g/dL (6.4-8.2)
[2021-05-22] MEDS ORDERED: IV NORMAL SALINE 1000ML BAG 1,000 ML IV ONE (12:15)
[2021-05-22] MEDS ORDERED: IOHEXOL 300 MG/ML 100ML VIAL. IV ONE (12:30)
--- NOTE | 2021-05-22 12:35 | PHYS DOC ---
Past Medical History Past Medical History: CAD, Diabetes-Type II, DVT, High Cholesterol, Hypertension, WI Additional Past Medical Histor: NEUROPATHY, DRUG ABUSE,PAD,NSTEMI, BPH, BLOOD THINNERS Past Surgical History: Coronary Bypass Surgery, Other Additional Past Surgical Histo: lower ext. bypass, wound Vac right thigh Smoking Status: Former Smoker Alcohol Use: None Drug Use: None General Adult EDM: Chief Complaint: ABDOMINAL PAIN HPI: HPI: Patient is a 65 year old male who presents with here from [place] per EMS for upper abdominal pain although patient is very confused. There was no report called and given so it is very unclear of the exact nature of why the patient is here or what his normal mental status is. Patient thinks it is 2020 and that he lives with 3 other people at home. Patient currently denies nausea, vomiting, chills, body aches, fever, chest pain, shortness of air, headache, dizziness. Patient is rating his abdominal pain a 10 out of 10. When asked what the pain feels like he states it feels like " there is fighting going on in my stomach". Patient has a history of diabetes, WI, CKD stage III, CAD, left leg wound with a wound VAC applied, CHF, PAD, A-flutter, DVT, CVA, TIA, incontinence, unable to care for himself, drug abuse, cognitive communication problems, sacrum ulcer, vascular bypass, amputation of toe. Patient is a DNR. Review of Systems: Review of Systems: Constitutional: Denies fever or chills. [] Eyes: Denies change in visual acuity. [] HENT: Denies nasal congestion or sore throat. [] Respiratory: Denies cough or shortness of breath. [] Cardiovascular: Denies chest pain or edema. [] GI: + Bilateral upper abdominal pain, denies nausea, vomiting, bloody stools or diarrhea. [] : Denies dysuria. [] Musculoskeletal: Denies back pain or joint pain. [] Integument: Denies rash. [] Neurologic: Denies headache, focal weakness or sensory changes. [] Endocrine: Denies polyuria or polydipsia. [] Lymphatic: Denies swollen glands. [] Psychiatric: Denies depression or anxiety. [] Heart Score: C/O Chest Pain: No HEART Score for Chest Pain: HEART Score for Chest Pain Response (Comments) Value History Slighlty/Non-Suspicious 0 ECG Nonspecific Repolarizatio 1 Age > 65 2 Risk Factors >3 Risk Factors or Hx CAD 2 Troponin < Normal Limit 0 Total 5 Risk Factors: Risk Factors: DM, Current or recent (<one month) smoker, HTN, HLP, family history of CAD, obesity. Risk Scores: Score 0 - 3: 2.5% MACE over next 6 weeks - Discharge Home Score 4 - 6: 20.3% MACE over next 6 weeks - Admit for Clinical Observation Score 7 - 10: 72.7% MACE over next 6 weeks - Early Invasive Strategies Current Medications: Current Medications Medications (Trade) Dose Ordered Sig/Lizzeth Start Time Stop Time Status Last Admin Dose Admin Sodium Chloride 1,000 ml @ 1,000 mls/hr 1X ONCE 05/22/21 12:15 05/22/21 13:14 Allergies: Allergies: Allergies Coded Allergies Type Severity Reaction Last Updated Verified No Known Drug Allergies 04/26/21 No Physical Exam: PE: Constitutional: Well developed, well nourished, no acute distress, non-toxic appearance. [] HENT: Normocephalic, atraumatic, bilateral external ears normal, oropharynx moist, no oral exudates, nose normal. [] Eyes: PERRLA, EOMI, conjunctiva normal, no discharge. [] Neck: Normal range of motion, no tenderness, supple, no stridor. [] Cardiovascular:Heart rate regular rhythm, no murmur [] Lungs & Thorax: Bilateral breath sounds clear to auscultation [] Abdomen: Bowel sounds normal, tight, bilateral upper quadrants tenderness, no masses, no pulsatile masses. [] Skin: Warm, dry, no erythema, no rash. [] Back: No tenderness, no CVA tenderness. [] Extremities: No tenderness, no cyanosis, no clubbing, ROM intact, no edema. [] Neurologic: Alert and oriented X 3, normal motor function, normal sensory function, no focal deficits noted. [] Psychologic: Affect normal, judgement normal, mood normal. [] Current Patient Data: Labs: Laboratory Tests Test 05/22/21 11:45 White Blood Count 6.9 x10^3/uL (4.0-11.0) Red Blood Count 2.85 x10^6/uL (4.30-5.70) L Hemoglobin 7.0 g/dL (13.0-17.5) *L Hematocrit 22.4 % (39.0-53.0) L Mean Corpuscular Volume 79 fL (79-100) Mean Corpuscular Hemoglobin 24 pg (25-35) L Mean Corpuscular Hemoglobin Concent 31 g/dL (31-37) Red Cell Distribution Width 19.3 % (11.5-14.5) H Platelet Count 374 x10^3/uL (140-400) Neutrophils (%) (Auto) 67 % (31-73) Lymphocytes (%) (Auto) 16 % (24-48) L Monocytes (%) (Auto) 8 % (0-9) Eosinophils (%) (Auto) 8 % (0-3) H Basophils (%) (Auto) 2 % (0-3) Neutrophils # (Auto) 4.6 x10^3/uL (1.8-7.7) Lymphocytes # (Auto) 1.1 x10^3/uL (1.0-4.8) Monocytes # (Auto) 0.5 x10^3/uL (0.0-1.1) Eosinophils # (Auto) 0.5 x10^3/uL (0.0-0.7) Basophils # (Auto) 0.1 x10^3/uL (0.0-0.2) Sodium Level 139 mmol/L (136-145) Potassium Level 4.1 mmol/L (3.5-5.1) Chloride Level 105 mmol/L (98-107) Carbon Dioxide Level 29 mmol/L (21-32) Anion Gap 5 (6-14) L Blood Urea Nitrogen 11 mg/dL (8-26) Creatinine 0.9 mg/dL (0.7-1.3) Estimated GFR (Cockcroft-Gault) 84.7 BUN/Creatinine Ratio 12 (6-20) Glucose Level 88 mg/dL (70-99) Calcium Level 7.8 mg/dL (8.5-10.1) L Total Bilirubin 0.5 mg/dL (0.2-1.0) Aspartate Amino Transferase (AST) 23 U/L (15-37) Alanine Aminotransferase (ALT) 8 U/L (16-63) L Alkaline Phosphatase 119 U/L (46-116) H Troponin I High Sensitivity 9 ng/L (4-75) Total Protein 6.7 g/dL (6.4-8.2) Albumin 2.0 g/dL (3.4-5.0) L Albumin/Globulin Ratio 0.4 (1.0-1.7) L Lipase 29 U/L (73-393) L Laboratory Tests 05/22/21 11:45 Laboratory Tests 05/22/21 11:45 Vital Signs: Vital Signs Date Time Temp Pulse Resp B/P (MAP) Pulse Ox O2 Delivery O2 Flow Rate FiO2 05/22/21 11:20 98.8 76 24 120/68 (85) 97 Room Air 98.8 EKG: EK and read by Dr. Mondragon as a regular rhythm with a right bundle branch block QTC is 510 and QT is 464. No STEMI. Radiology/Procedures: Radiology/Procedures: [] Impression: [facility] [address] [place] [address] IMAGING REPORT Signed PATIENT: ELYSSA CONTRERAS ACCOUNT: [id number] : 1955 LOCATION: ER AGE: 65 SEX: M EXAM STATUS: PRE ER ORD. PHYSICIAN: HEBERT FITZGERALD APRN REASON: ABD PAIN, LOW HEMOGLOBIN PROCEDURE: CT ABD PELV W/ IV CONTRST ONLY CT OF THE ABDOMEN AND PELVIS WITH IV CONTRAST. History: Reason: ABD PAIN, LOW HEMOGLOBIN / Spl. Instructions: / History: Comparison:None. Procedure: Contiguous axial images of the abdomen and pelvis were performed after the administration of 75 cc of Isovue 370 IV contrast. Oral contrast: No. Findings: There is large pleural effusions with adjacent infiltrates bilaterally. There is diffuse soft tissue edema. There is a fat-containing inguinal hernia on the left. There is surgical changes in the right groin seen previously. The appendix is normal. There is a stone in the gallbladder but no wall thic kening or surrounding inflammation. Liver: Unremarkable Spleen: Unremarkable Pancreas: Unremarkable Adrenal Glands: Lobulated left adrenal is consistent with adrenal adenomas Kidneys: Small cysts bilaterally There is no mass or lymphadenopathy. There is no free air. There is mild free fluid. The urinary bladder is mostly collapsed and there is moderate up to 1 cm thickness. Impression: 1. Large pleural effusions adjacent infiltrates is significantly worse. 2. Diffuse soft tissue edema is significantly worse and could be some cysts or anasarca. 3. Mild free fluid in the pelvis likely ascites. 4. Moderate wall thickening of the urinary bladder likely secondary to hypertrophy. End Impression PQRS Compliance Statement: One or more of the following individualized dose reduction techniques were utilized for this examination: 1. Automated exposure control 2. Adjustment of the mA and/or kV according to patient size 3. Use of iterative reconstruction technique Electronically signed by: No Ortiz III, MD (05/22/2021 1:18 PM) [facility] DICTATED and SIGNED BY: NO ORTIZ III, MD DATE: 05/22/21 1307 [facility] [address] [place] [address] IMAGING REPORT Signed PATIENT: ELYSSA CONTRERAS ACCOUNT: [id number] : 1955 LOCATION: ER AGE: 65 SEX: M EXAM STATUS: PRE ER ORD. PHYSICIAN: HEBERT FITZGERALD APRN REASON: AMS PROCEDURE: CT HEAD WO CONTRAST CT Head W/O Contrast: History: Reason: AMS / Spl. Instructions: / History: Comparison: April 02, 2019 Axial images were obtained without contrast. A moderate size There is moderate diffuse atrophy. There is no mass effect, extraaxial fluid collections or hydrocephalus. There is no gross bleed. Minimal, patchy periventricular white matter hypoattenuation is seen. The old right parietal lobe stroke is again seen. There is no focal loss of luong-white matter distinction to suggest acute ischemia, i.e. stroke. Density in the left maxillary sinus was seen previously. Impression: 1. Moderate diffuse cerebral and cerebellar atrophy is advanced the patient's age. 2. 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 3. No acute findings. End of impression PQRS Compliance Statement: One or more of the following individualized dose reduction techniques were utilized for this examination: 1. Automated exposure control 2. Adjustment of the mA and/or kV according to patient size 3. Use of iterative reconstruction technique Electronically signed by: No Ortiz III, MD (05/22/2021 1:07 PM) [facility] DICTATED and SIGNED BY: NO ORTIZ III, MD DATE: 05/22/21 1302 [facility] [address] [place] [address] IMAGING REPORT Signed PATIENT: ELYSSA CONTRERAS ACCOUNT: [id number] : 1955 LOCATION: ER AGE: 65 SEX: M EXAM STATUS: REG ER ORD. PHYSICIAN: HEBERT FITZGERALD APRN REASON: PULMONARY EFFUSIONS PROCEDURE: PORTABLE CHEST 1V EXAMINATION: Chest radiograph. VIEWS: Single AP view of chest COMPARISON: 2:15 1999.2 INDICATION:65 years, Male, pulmonary effusion. FINDINGS: Heart is enlarged. Median sternotomy wires are intact. Thoracic aorta is tortuous with associated atherosclerotic disease. Diffuse patchy bilateral opacities with associated increased interstitial markings. No pleural effusion or pneumothorax. No acute osseous process. Right upper extremity PICC terminates in the SVC. IMPRESSION: Heart is enlarged with patchy bilateral airspace disease favoring mild to moderate interstitial pulmonary edema. Multifocal pneumonia is difficult to exclude. Electronically signed by: Jamir Silveira DO (05/22/2021 3:03 PM) [facility] DICTATED and SIGNED BY: JAMIR SILVEIRA DO DATE: 05/22/21 7664 Course & Med Decision Making: Course & Med Decision Making Pertinent Labs and Imaging studies reviewed. (See chart for details) See HPI. Alert and oriented x2. Speaks in full clear sentences. Wound VAC attached to the right thigh. He does have a large sacral wound. Incontinent. Abdomen is tight and tender to the bilateral upper quadrants. He has had a bow el movement here in the ED and there was no blood. Patient's hemoglobin is 7 today. Vital signs are stable. Pale pink and warm and dry. Fecal occult stool is positive. Hemoglobin is at a 7. CT abdomen pelvis shows Impression: 1. Large pleural effusions adjacent infiltrates is significantly worse. 2. Diffuse soft tissue edema is significantly worse and could be some cysts or anasarca. 3. Mild free fluid in the pelvis likely ascites. 4. Moderate wall thickening of the urinary bladder likely secondary to hypertrophy. [] Dragon Disclaimer: Dragon Disclaimer: This electronic medical record was generated, in whole or in part, using a voice recognition dictation system. Departure Departure Impression: Primary Impression: Low hemoglobin Additional Impression: Acute on chronic diastolic CHF (congestive heart failure) Disposition: ADMITTED INPATIENT Admitting Physician: Bravo Villanueva Condition: STABLE Referrals: BRAVO VILLANUEVA MD (PCP) HEBERT FITZGERALD APRN May 22, 2021 12:35
[2021-05-22] MEDS ORDERED: CONTRAST GIVEN. MC PRN (12:45)
--- NOTE | 2021-05-22 13:09 | RAD ---
CT Head W/O Contrast: History: Reason: AMS / Spl. Instructions: / History: Comparison: April 02, 2019 Axial images were obtained without contrast. A moderate size There is moderate diffuse atrophy. There is no mass effect, extraaxial fluid collections or hydrocep halus. There is no gross bleed. Minimal, patchy periventricular white matter hypoattenuation is seen . The old right parietal lobe stroke is again seen. There is no focal loss of luong-white matter disti nction to suggest acute ischemia, i.e. stroke. Density in the left maxillary sinus was seen previously. Impression: 1. Moderate diffuse cerebral and cerebellar atrophy is advanced the patient's age. 2. 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 3. No acute findings. End of impression PQRS Compliance Statement: One or more of the following individualized dose reduction techniques were utilized for this examinat ion: 1. Automated exposure control 2. Adjustment of the mA and/or kV according to patient size 3. Use of iterative reconstruction technique Electronically signed by: Dwight Johnson III, MD (05/22/2021 1:07 PM) [facility]
[2021-05-22 13:16] LABS: FECAL OB PT POSITIVE (NEG)
--- NOTE | 2021-05-22 13:21 | RAD ---
CT OF THE ABDOMEN AND PELVIS WITH IV CONTRAST. History: Reason: ABD PAIN, LOW HEMOGLOBIN / Spl. Instructions: / History: Comparison:None. Procedure: Contiguous axial images of the abdomen and pelvis were performed after the administration of 75 cc o f Isovue 370 IV contrast. Oral contrast: No. Findings: There is large pleural effusions with adjacent infiltrates bilaterally. There is diffuse soft tissue edema. There is a fat-containing inguinal hernia on the left. There is surgical changes in the right groin s een previously. The appendix is normal. There is a stone in the gallbladder but no wall thickening or surrounding inf lammation. Liver: Unremarkable Spleen: Unremarkable Pancreas: Unremarkable Adrenal Glands: Lobulated left adrenal is consistent with adrenal adenomas Kidneys: Small cysts bilaterally There is no mass or lymphadenopathy. There is no free air. There is mild free fluid. The urinary bladder is mostly collapsed and there is moderate up to 1 cm thickness. Impression: 1. Large pleural effusions adjacent infiltrates is significantly worse. 2. Diffuse soft tissue edema is significantly worse and could be some cysts or anasarca. 3. Mild free fluid in the pelvis likely ascites. 4. Moderate wall thickening of the urinary bladder likely secondary to hypertrophy. End Impression PQRS Compliance Statement: One or more of the following individualized dose reduction techniques were utilized for this examinat ion: 1. Automated exposure control 2. Adjustment of the mA and/or kV according to patient size 3. Use of iterative reconstruction technique Electronically signed by: Dwight Johnson III, MD (05/22/2021 1:18 PM) [facility]
[2021-05-22] MEDS ORDERED: HYDROcodone/APAP 5/325MG 1 TAB TABLET PO ONE (14:00)
[2021-05-22] MEDS ORDERED: FUROSEMIDE 40 MG/4 ML VIAL. IVP ONE (14:00)
[2021-05-22 14:55] LABS: PROTHROMBIN TIME PATIENT 20.4 SEC (11.7-14.0)
[2021-05-22 14:57] LABS: BACTERIA,URINE 0 /HPF (0-FEW)
--- NOTE | 2021-05-22 15:05 | RAD ---
EXAMINATION: Chest radiograph. VIEWS: Single AP view of chest COMPARISON: 2:15 1999.2 INDICATION:65 years, Male, pulmonary effusion. FINDINGS: Heart is enlarged. Median sternotomy wires are intact. Thoracic aorta is tortuous with associated ath erosclerotic disease. Diffuse patchy bilateral opacities with associated increased interstitial marcin ngs. No pleural effusion or pneumothorax. No acute osseous process. Right upper extremity PICC termin ates in the SVC. IMPRESSION: Heart is enlarged with patchy bilateral airspace disease favoring mild to moderate interstitial pulmo nary edema. Multifocal pneumonia is difficult to exclude. Electronically signed by: Lester Silveira DO (05/22/2021 3:03 PM) [facility]
[2021-05-22 15:06] LABS: BARBITURATES NEG (NEG); BENZODIAZEPINES NEG (NEG); CANNABINOIDS NEG (NEG); COCAINE NEG (NEG); METHADONE NEG (NEG); OPIATES POS (NEG); PHENCYCLIDINE NEG (NEG)
[2021-05-22 15:07] LABS: AMPHETAMINE/METHAMPHETAMINE NEG (NEG)
[2021-05-22 16:30] VITALS: BP 141/76
[2021-05-22 16:35] LABS: INFLUENZA A PATIENT NEGATIVE (NEGATIVE); INFLUENZA B PATIENT NEGATIVE (NEGATIVE)
[2021-05-22 16:52] VITALS: BP 106/59
[2021-05-22 17:34] VITALS: BP 120/70
--- NOTE | 2021-05-22 17:35 | NUR ---
PT ORIENTED TO ROOM AND UNIT, BED LOW AND LOCKED, SIDE RAILS UPX3, CALL LIGHT IN REACH, TELE APPLIED. PRBCS INFUSING THROUGH RIGHT UPPER ARM SINGLE LUMEN PICC. PT HAS UNKNOWN WOUND VAC TO RIGHT THIGH. WILL CONTINUE TO ASSESS. Addendum: 05/22/21 at 1808 by Dwight Shelby RN CONSULT CALLED TO CARDIOLOGY, GI WILL SEE THE PATIENT IN THE AM. Addendum: 05/22/21 at 1838 by Dwight Shelby RN COMPLETED ADMISSION WILL PAS ONTO NIGHT RN TO PHOTO WOUNDS FOR ADMISSION.
--- NOTE | 2021-05-22 18:18 | EKG ---
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
[2021-05-22 18:33] VITALS: BP 124/76
[2021-05-22 19:00] VITALS: BP 137/70
[2021-05-22 23:20] VITALS: BP 122/67
[2021-05-23 03:29] VITALS: BP 132/68
[2021-05-23 07:00] VITALS: BP 152/75
[2021-05-23 07:00] LABS: BASO # 0.1 x10^3/uL (0.0-0.2); BASO % 2 % (0-3); EOS # 0.5 x10^3/uL (0.0-0.7); EOS % 8 % (0-3); HEMATOCRIT 26.5 % (39.0-53.0); HEMOGLOBIN 8.2 g/dL (13.0-17.5); LYMPH # 1.1 x10^3/uL (1.0-4.8); LYMPH % 18 % (24-48); MEAN CORPUSCULAR HEMOGLOBIN 25 pg (25-35); MEAN CORPUSCULAR HGB CONC 31 g/dL (31-37); MEAN CORPUSCULAR VOLUME 80 fL (79-100); MONO # 0.5 x10^3/uL (0.0-1.1); MONO % 9 % (0-9); NEUT # 3.9 x10^3/uL (1.8-7.7); NEUT % 64 % (31-73); PLATELET COUNT 368 x10^3/uL (140-400); RED CELL DISTRIBUTION WIDTH 19.1 % (11.5-14.5)
--- NOTE | 2021-05-23 09:41 | PDOC2 ---
GI CONSULT Date of Service: DATE: 05/23/21 TIME: 09:41 Reason For Consult: low Hgb, hemoccult + HPI: HPI: 65 y/o male who Dr. Burnette has seen in the past. To ER via EMS w/ abdominal pain. Noted w/ anemia (not new but a bit worse) and we are asked to see. He says pain (mid to right) started yesterday out of the blue and has resolved. Some nausea, no vomiting. Denies hematochezia and melena. Denies reflux/heartburn, diarrhea, constipation, change in appetite, and weight loss. Says "my belly is fat." Mentions he needs help eating because his fingers don't work so good - was able to drink coffee by himself this morning but that was about it. H/o FRANKO - no previous EGD or colonoscopy, though we recommended in past. Per past encounter, remote "ulcer" history possibly diagnosed on imaging and bette ated w/ antibiotics. When we saw in 05/2020, reported lower mid abdomen pain that spread into mid chest. HIDA negative for cholecystitis - symptoms thought possibly related to CHF. Some abnormal LFTs in past. Hepatic steatosis on past imaging and abd doppler in 2020 noted normal directed portal venous flow, mild pulsatility possibly related to right heart failure, and right pleural effusion - again thought related to CHF, suggestion for salt restriction. No pancreas history. B12 normal 12/2020. On Eliquis and Plavix. PMH: PMH: CAD, HTN, HLD, NM, ICM, A Fib, PAD, DVT, DM, UTI, nephrolithiasis, sacral ulcer CABG, stents, LLE thrombectomy and fasciotomy, right knee surgery, bilateral rotator cuff repair, RLE bypass and seroma drainage, toe amputation FH: Family History: Cancer (father - prostate) Social History: Smoke: Quit ALCOHOL: other (heavy in his 20s) Drugs: Crystal meth ROS: GEN: Denies fevers, chills, sweats HEENT: Denies blurred vision, sore throat CV: Denies chest pain RESP: Denies shortness of air, cough GI: Per HPI : Denies hematuria, dysuria ENDO: Denies weight changes NEURO: Denies confusion, dizziness MSK: +weakness SKIN: Denies jaundice, pruritus Vitals: Vitals: Vital Signs Date Time Temp Pulse Resp B/P (MAP) Pulse Ox O2 Delivery O2 Flow Rate FiO2 05/23/21 07:00 97.4 66 18 152/75 (100) 99 Room Air 97.4 Labs: Labs: Laboratory Tests Test 05/22/21 11:45 05/22/21 12:35 05/22/21 14:15 05/22/21 16:14 White Blood Count 6.9 x10^3/uL (4.0-11.0) Red Blood Count 2.85 x10^6/uL (4.30-5.70) Hemoglobin 7.0 g/dL (13.0-17.5) Hematocrit 22.4 % (39.0-53.0) Mean Corpuscular Volume 79 fL (79-100) Mean Corpuscular Hemoglobin 24 pg (25-35) Mean Corpuscular Hemoglobin Concent 31 g/dL (31-37) Red Cell Distribution Width 19.3 % (11.5-14.5) Platelet Count 374 x10^3/uL (140-400) Neutrophils (%) (Auto) 67 % (31-73) Lymphocytes (%) (Auto) 16 % (24-48) Monocytes (%) (Auto) 8 % (0-9) Eosinophils (%) (Auto) 8 % (0-3) Basophils (%) (Auto) 2 % (0-3) Neutrophils # (Auto) 4.6 x10^3/uL (1.8-7.7) Lymphocytes # (Auto) 1.1 x10^3/uL (1.0-4.8) Monocytes # (Auto) 0.5 x10^3/uL (0.0-1.1) Eosinophils # (Auto) 0.5 x10^3/uL (0.0-0.7) Basophils # (Auto) 0.1 x10^3/uL (0.0-0.2) Prothrombin Time 20.4 SEC (11.7-14.0) Prothromb Time International Ratio 1.8 (0.8-1.1) Sodium Level 139 mmol/L (136-145) Potassium Level 4.1 mmol/L (3.5-5.1) Chloride Level 105 mmol/L (98-107) Carbon Dioxide Level 29 mmol/L (21-32) Anion Gap 5 (6-14) Blood Urea Nitrogen 11 mg/dL (8-26) Creatinine 0.9 mg/dL (0.7-1.3) Estimated GFR (Cockcroft-Gault) 84.7 BUN/Creatinine Ratio 12 (6-20) Glucose Level 88 mg/dL (70-99) Calcium Level 7.8 mg/dL (8.5-10.1) Total Bilirubin 0.5 mg/dL (0.2-1.0) Aspartate Amino Transf (AST/SGOT) 23 U/L (15-37) Alanine Aminotransferase (ALT/SGPT) 8 U/L (16-63) Alkaline Phosphatase 119 U/L (46-116) Troponin I High Sensitivity 9 ng/L (4-75) IA-Lud-V-Type Natriuretic Peptide 4460 pg/mL (0-124) Total Protein 6.7 g/dL (6.4-8.2) Albumin 2.0 g/dL (3.4-5.0) Albumin/Globulin Ratio 0.4 (1.0-1.7) Lipase 29 U/L (73-393) Stool Occult Blood Positive (NEG) Urine Collection Type Unknown Urine Color (Auto) Yellow Urine Turbidity Hazy Urine pH (Auto) 5.5 (<5.0-8.0) Urine Specific [place] 1.039 (1.000-1.030) Urine Protein (Auto) Negative mg/dL (Negative) Urine Glucose (Auto)(UA) Negative mg/dL (Negative) Urine Ketones (Auto) Negative mg/dL (Negative) Urine Blood (Auto) Small (Negative) Urine Nitrite Negative (Negative) Urine Bilirubin (Auto) Negative (Negative) Urine Urobilinogen (Auto) 3 mg/dL (Normal) Urine Leukocyte Esterase (Auto) Negative (Negative) Urine RBC 1-2 /HPF (0-2) Urine WBC 1-4 /HPF (0-4) Urine Squamous Epithelial Cells Occ /LPF Urine Bacteria 0 /HPF (0-FEW) Urine Opiates Screen Pos (NEG) Urine Methadone Screen Neg (NEG) Urine Barbiturates Neg (NEG) Urine Phencyclidine Screen Neg (NEG) Urine Amphetamine/Methamphetamine Neg (NEG) Urine Benzodiazepines Screen Neg (NEG) Urine Cocaine Screen Neg (NEG) Urine Cannabinoids Screen Neg (NEG) Urine Ethyl Alcohol Neg (NEG) Influenza Type A Antigen Negative (NEGATIVE) Influenza Type B Antigen Negative (NEGATIVE) SARS-CoV-2 Antigen (Rapid) Negative (NEGATIVE) Test 05/22/21 17:36 05/22/21 20:52 05/23/21 06:00 05/23/21 07:30 Glucose (Fingerstick) 106 mg/dL (70-99) 118 mg/dL (70-99) 81 mg/dL (70-99) White Blood Count 6.0 x10^3/uL (4.0-11.0) Red Blood Count 3.30 x10^6/uL (4.30-5.70) Hemoglobin 8.2 g/dL (13.0-17.5) Hematocrit 26.5 % (39.0-53.0) Mean Corpuscular Volume 80 fL (79-100) Mean Corpuscular Hemoglobin 25 pg (25-35) Mean Corpuscular Hemoglobin Concent 31 g/dL (31-37) Red Cell Distribution Width 19.1 % (11.5-14.5) Platelet Count 368 x10^3/uL (140-400) Neutrophils (%) (Auto) 64 % (31-73) Lymphocytes (%) (Auto) 18 % (24-48) Monocytes (%) (Auto) 9 % (0-9) Eosinophils (%) (Auto) 8 % (0-3) Basophils (%) (Auto) 2 % (0-3) Neutrophils # (Auto) 3.9 x10^3/uL (1.8-7.7) Lymphocytes # (Auto) 1.1 x10^3/uL (1.0-4.8) Monocytes # (Auto) 0.5 x10^3/uL (0.0-1.1) Eosinophils # (Auto) 0.5 x10^3/uL (0.0-0.7) Basophils # (Auto) 0.1 x10^3/uL (0.0-0.2) Allergies: Coded Allergies: No Known Drug Allergies (Unverified , 04/26/21) Medications: Current Medications Medications (Trade) Dose Ordered Sig/Lizzeth Route PRN Reason Start Time Stop Time Status Last Admin Dose Admin Sodium Chloride 1,000 ml @ 1,000 mls/hr 1X ONCE IV 05/22/21 12:15 05/22/21 13:14 DC 05/22/21 13:11 Iohexol (Omnipaque 300 Mg/ml) 75 ml 1X ONCE IV 05/22/21 12:30 05/22/21 12:35 DC 05/22/21 12:58 Acetaminophen/ Hydrocodone Bitart (Lortab 5/325) 1 tab 1X ONCE PO 05/22/21 14:00 05/22/21 14:01 DC 05/22/21 14:07 Furosemide (Lasix) 40 mg 1X ONCE IVP 05/22/21 14:00 05/22/21 14:01 DC 05/22/21 14:07 Imaging: Imaging: CT A/P Impression: 1. Large pleural effusions adjacent infiltrates is significantly worse. 2. Diffuse soft tissue edema is significantly worse and could be some cysts or anasarca. 3. Mild free fluid in the pelvis likely ascites. 4. Moderate wall thickening of the urinary bladder likely secondary to hypertrophy. Head CT Impression: 1. Moderate diffuse cerebral and cerebellar atrophy is advanced the patient's age. 2. 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 3. No acute findings. CXR IMPRESSION: Heart is enlarged with patchy bilateral airspace disease favoring mild to moderate interstitial pulmonary edema. Multifocal pneumonia is difficult to exclude. PE: GEN: NAD HEENT: Atraumatic, PERRL LUNGS: diminished, room air HEART: RRR ABD: BS+, some distention/anasarca SKIN: dressing left thigh NEURO/PSYCH: A & O 3 A/P: A/P: Right-sided abdominal pain - resolved Abnormal CT - large pleural effusions and adjacent infiltrates (worse), anasarca, mild ascites H/o FRANKO - required transfusion this time CRC screen - none Hepatic steatosis H/o A Fib, CAD, PAD - on Plavix, Eliquis Rapid COVID negative Debility, h/o substance abuse -- Address pleural effusions, heart failure. Observe for bleeding, monitor Hgb, transfuse as needed. 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 As in past, consider future 'scopes for FRANKO. LADY MANNING May 23, 2021 09:41
[2021-05-23 11:00] VITALS: BP 122/75
--- NOTE | 2021-05-23 11:30 | PDOC1 ---
History and Physical Date of Admission Date of Admission DATE: 05/23/21 TIME: 11:24 History of Present Illness History of Present Illness Mr. Bruno, is a 65 year old male admit from ER last night, confused, weak. He lives in [place] and had worse abdominal pain and complains of his leg wound. He had vomited, and reports he has had trouble eating. Serum albumin 2.0 multiple prior admitsa here were reviewed There was no report called and given so it is very unclear of the exact nature of why the patient is here or what his normal mental status is. Patient thinks it is 2019 and that he lives with 3 other people at home. Patient currently denies nausea, vomiting, chills, body aches, fever, chest pain, shortness of air, headache, dizziness. Patient is rating his abdominal pain a 10 out of 10. When asked what the pain feels like he states it feels like " there is fighting going on in my stomach". Past Medical History Past Medical History diabetes, AR, CKD stage III, CAD, left leg wound with a wound VAC applied, CHF, PAD, A-flutter, DVT, CVA, TIA, incontinence, unable to care for himself, drug abuse, aphasia, sacrum ulcer, vascular bypass, amputation of toe. Cardiovascular: AFIB, CAD, CHF, HTN, AR, Hyperlipidemia, Other Pulmonary: No pertinent hx, COPD CENTRAL NERVOUS SYSTEM: Other GI: Peptic Ulcer disease, Other Heme/Onc: No pertinent hx Hepatobiliary: No pertinent hx Psych: Anxiety Musculoskeletal: Osteoarthritis Rheumatologic: No pertinent hx Infectious disease: No pertinent hx Renal/: Other Endocrine: Diabetes Past Surgical History Past Surgical History: CABG, Other Family History Family History: Heart Disease Social History ALCOHOL: none Drugs: Crystal meth Current Problem List Problem List Problems Medical Problems: (1) Low hemoglobin Status: Acute Current Medications Current Medications Current Medications Sodium Chloride 1,000 ml @ 1,000 mls/hr 1X ONCE IV Last administered on 05/22/21at 13:11; Start 05/22/21 at 12:15; Stop 05/22/21 at 13:14; Status DC Iohexol (Omnipaque 300 Mg/ml) 75 ml 1X ONCE IV Last administered on 05/22/21at 12:58; Start 05/22/21 at 12:30; Stop 05/22/21 at 12:35; Status DC Info (CONTRAST GIVEN -- Rx MONITORING) 1 each PRN DAILY PRN MC SEE COMMENTS; Start 05/22/21 at 12:45; Stop 05/24/21 at 12:44 Acetaminophen/ Hydrocodone Bitart (Lortab 5/325) 1 tab 1X ONCE PO Last administered on 05/22/21at 14:07; Start 05/22/21 at 14:00; Stop 05/22/21 at 14:01; Status DC Furosemide (Lasix) 40 mg 1X ONCE IVP Last administered on 05/22/21at 14:07; Start 05/22/21 at 14:00; Stop 05/22/21 at 14:01; Status DC Active Scripts Active Hydrocodone-Acetamin 7.5-325 (Hydrocodone/Acetaminophen) 1 Each Tablet 1 Each PO QIDPRN 14 Days Colace (Docusate Sodium) 100 Mg Capsule 100 Mg PO PRN DAILY PRN Flomax (Tamsulosin Hcl) 0.4 Mg Cap.er.24h 0.4 Mg PO QHS Thera-M Tablet (Multivits,Ca,Minerals/Iron/Fa) 1 Each Tablet 1 Tab PO DAILY Atorvastatin Calcium 40 Mg Tablet 40 Mg PO QHS 30 Days Reported Seroquel (Quetiapine Fumarate) 100 Mg Tablet 100 Mg PO HS Olanzapine 5 Mg Tablet 5 Mg PO BID Probiotic (Lactobacillus Acidophilus) 1 Each Capsule 1 Each PO BID Duoneb 0.5-3(2.5) Mg/3 Ml (Albuterol/Ipratropium) 3 Ml Ampul.neb 3 Ml NEB PRN BID PRN Haloperidol Lactate 2 Mg/1 Ml Oral.conc 2 Mg PO PRN Q4-6HRS PRN Gabapentin 600 Mg Tablet 300 Mg PO TID Fluoxetine Hcl 20 Mg Capsule 20 Mg PO DAILY Clopidogrel (Clopidogrel Bisulfate) 75 Mg Tablet 75 Mg PO DAILY Amiodarone Hcl 200 Mg Tablet 200 Mg PO DAILY Eliquis (Apixaban) 5 Mg Tablet 5 Mg PO BID Allergies Allergies: Coded Allergies: No Known Drug Allergies (Unverified , 04/26/21) ROS General: YES: Chills, Fatigue, Malaise PSYCHOLOGICAL ROS: YES: Memory difficulties, Sleep disturbances; No: Anxiety, Behavioral Disorder, Concentration difficultie, Decreased libido, Depression, Disorientation, Hallucinations, Hostility, Irritablity, Mood Swings, Obsessive thoughts, Other Eyes: No Blurry vision, No Decreased vision, No Double vision, No Dry eyes, No Excessive tearing, No Eye Pain, No Itchy Eyes, No Loss of vision, No Photophobia, No Scotomata, No Uses contacts, No Uses glasses, No Other HEENT: No: Heacaches, Visual Changes, Hearing change, Nasal congestion, Nasal discharge, Oral lesions, Sinus pain, Sore Throat, Epistaxis, Sneezing, Snoring, Tinnitus, Vertigo, Vocal changes, Other Respiratory: No: Cough, Hemoptysis, Orthopnea, Pleuritic Pain, Shortness of breath, SOB with excertion, Sputum Changes, Stridor, Tachypnea, Wheezing, Other Cardiovascular: No Chest Pain, No Palpitations, No Orthopnea, No Paroxysmal Noc. Dyspnea, No Edema, No Lt Headedness, No Other Gastrointestinal: Yes Nausea, Yes Vomiting, Yes Abdominal Pain; No Diarrhea, No Constipation, No Melena, No Hematochezia, No Other Genitourinary: YES Pain; No Dysuria, No Frequency, No Incontinence, No Hematuria, No Retention, No Discharge, No Urgency, No , No , No , No , No Musculoskeletal: Yes Gait Disturbance (bed bound), Yes Joint Stiffness, Yes Joint Swelling, Yes Muscular Weakness, Yes Pain In:; No Joint Pain, No Muscle Pain, No Swelling In:, No Other Neurological: Yes Impaired Coord/balance, Yes Memory Loss, Yes Weakness; No Behavorial Changes, No Bowel/Bladder ControlChng, No Confusion, No Dizziness, No Gait Disturbance, No Headaches, No Numbness/Tingling, No Seizures, No Other Skin: Yes Dry Skin, Yes Pruritus, Yes Rash, Yes Skin Lesion Changes; No Eczema, No Hair Changes, No Mole Changes, No Mottling, No Nail Changes Physical Exam General: Alert, Cooperative, Other (orineted 2/) HEENT: EOMI, Mucous membr. moist/pink Lungs: Normal air movement Heart: no murmurs Extremities: No cyanosis Skin: No rashes Neuro: Normal speech, Normal tone Psych/Mental Status: Mood NL Vitals Vitals Vital Signs Date Time Temp Pulse Resp B/P (MAP) Pulse Ox O2 Delivery O2 Flow Rate FiO2 05/23/21 07:00 97.4 66 18 152/75 (100) 99 Room Air 97.4 Labs Labs Laboratory Tests Test 05/22/21 11:45 05/22/21 12:35 05/22/21 14:15 05/22/21 16:14 White Blood Count 6.9 x10^3/uL (4.0-11.0) Red Blood Count 2.85 x10^6/uL (4.30-5.70) Hemoglobin 7.0 g/dL (13.0-17.5) Hematocrit 22.4 % (39.0-53.0) Mean Corpuscular Volume 79 fL (79-100) Mean Corpuscular Hemoglobin 24 pg (25-35) Mean Corpuscular Hemoglobin Concent 31 g/dL (31-37) Red Cell Distribution Width 19.3 % (11.5-14.5) Platelet Count 374 x10^3/uL (140-400) Neutrophils (%) (Auto) 67 % (31-73) Lymphocytes (%) (Auto) 16 % (24-48) Monocytes (%) (Auto) 8 % (0-9) Eosinophils (%) (Auto) 8 % (0-3) Basophils (%) (Auto) 2 % (0-3) Neutrophils # (Auto) 4.6 x10^3/uL (1.8-7.7) Lymphocytes # (Auto) 1.1 x10^3/uL (1.0-4.8) Monocytes # (Auto) 0.5 x10^3/uL (0.0-1.1) Eosinophils # (Auto) 0.5 x10^3/uL (0.0-0.7) Basophils # (Auto) 0.1 x10^3/uL (0.0-0.2) Prothrombin Time 20.4 SEC (11.7-14.0) Prothromb Time International Ratio 1.8 (0.8-1.1) Sodium Level 139 mmol/L (136-145) Potassium Level 4.1 mmol/L (3.5-5.1) Chloride Level 105 mmol/L (98-107) Carbon Dioxide Level 29 mmol/L (21-32) Anion Gap 5 (6-14) Blood Urea Nitrogen 11 mg/dL (8-26) Creatinine 0.9 mg/dL (0.7-1.3) Estimated GFR (Cockcroft-Gault) 84.7 BUN/Creatinine Ratio 12 (6-20) Glucose Level 88 mg/dL (70-99) Calcium Level 7.8 mg/dL (8.5-10.1) Total Bilirubin 0.5 mg/dL (0.2-1.0) Aspartate Amino Transf (AST/SGOT) 23 U/L (15-37) Alanine Aminotransferase (ALT/SGPT) 8 U/L (16-63) Alkaline Phosphatase 119 U/L (46-116) Troponin I High Sensitivity 9 ng/L (4-75) EW-Kpk-K-Type Natriuretic Peptide 4460 pg/mL (0-124) Total Protein 6.7 g/dL (6.4-8.2) Albumin 2.0 g/dL (3.4-5.0) Albumin/Globulin Ratio 0.4 (1.0-1.7) Lipase 29 U/L (73-393) Stool Occult Blood Positive (NEG) Urine Collection Type Unknown Urine Color (Auto) Yellow Urine Turbidity Hazy Urine pH (Auto) 5.5 (<5.0-8.0) Urine Specific Balsam 1.039 (1.000-1.030) Urine Protein (Auto) Negative mg/dL (Negative) Urine Glucose (Auto)(UA) Negative mg/dL (Negative) Urine Ketones (Auto) Negative mg/dL (Negative) Urine Blood (Auto) Small (Negative) Urine Nitrite Negative (Negative) Urine Bilirubin (Auto) Negative (Negative) Urine Urobilinogen (Auto) 3 mg/dL (Normal) Urine Leukocyte Esterase (Auto) Negative (Negative) Urine RBC 1-2 /HPF (0-2) Urine WBC 1-4 /HPF (0-4) Urine Squamous Epithelial Cells Occ /LPF Urine Bacteria 0 /HPF (0-FEW) Urine Opiates Screen Pos (NEG) Urine Methadone Screen Neg (NEG) Urine Barbiturates Neg (NEG) Urine Phencyclidine Screen Neg (NEG) Urine Amphetamine/Methamphetamine Neg (NEG) Urine Benzodiazepines Screen Neg (NEG) Urine Cocaine Screen Neg (NEG) Urine Cannabinoids Screen Neg (NEG) Urine Ethyl Alcohol Neg (NEG) Influenza Type A Antigen Negative (NEGATIVE) Influenza Type B Antigen Negative (NEGATIVE) SARS-CoV-2 Antigen (Rapid) Negative (NEGATIVE) Test 05/22/21 17:36 05/22/21 20:52 05/23/21 06:00 05/23/21 07:30 Glucose (Fingerstick) 106 mg/dL (70-99) 118 mg/dL (70-99) 81 mg/dL (70-99) White Blood Count 6.0 x10^3/uL (4.0-11.0) Red Blood Count 3.30 x10^6/uL (4.30-5.70) Hemoglobin 8.2 g/dL (13.0-17.5) Hematocrit 26.5 % (39.0-53.0) Mean Corpuscular Volume 80 fL (79-100) Mean Corpuscular Hemoglobin 25 pg (25-35) Mean Corpuscular Hemoglobin Concent 31 g/dL (31-37) Red Cell Distribution Width 19.1 % (11.5-14.5) Platelet Count 368 x10^3/uL (140-400) Neutrophils (%) (Auto) 64 % (31-73) Lymphocytes (%) (Auto) 18 % (24-48) Monocytes (%) (Auto) 9 % (0-9) Eosinophils (%) (Auto) 8 % (0-3) Basophils (%) (Auto) 2 % (0-3) Neutrophils # (Auto) 3.9 x10^3/uL (1.8-7.7) Lymphocytes # (Auto) 1.1 x10^3/uL (1.0-4.8) Monocytes # (Auto) 0.5 x10^3/uL (0.0-1.1) Eosinophils # (Auto) 0.5 x10^3/uL (0.0-0.7) Basophils # (Auto) 0.1 x10^3/uL (0.0-0.2) Laboratory Tests Test 05/22/21 11:45 05/22/21 12:35 05/22/21 14:15 05/22/21 16:14 White Blood Count 6.9 x10^3/uL (4.0-11.0) Red Blood Count 2.85 x10^6/uL (4.30-5.70) Hemoglobin 7.0 g/dL (13.0-17.5) Hematocrit 22.4 % (39.0-53.0) Mean Corpuscular Volume 79 fL (79-100) Mean Corpuscular Hemoglobin 24 pg (25-35) Mean Corpuscular Hemoglobin Concent 31 g/dL (31-37) Red Cell Distribution Width 19.3 % (11.5-14.5) Platelet Count 374 x10^3/uL (140-400) Neutrophils (%) (Auto) 67 % (31-73) Lymphocytes (%) (Auto) 16 % (24-48) Monocytes (%) (Auto) 8 % (0-9) Eosinophils (%) (Auto) 8 % (0-3) Basophils (%) (Auto) 2 % (0-3) Neutrophils # (Auto) 4.6 x10^3/uL (1.8-7.7) Lymphocytes # (Auto) 1.1 x10^3/uL (1.0-4.8) Monocytes # (Auto) 0.5 x10^3/uL (0.0-1.1) Eosinophils # (Auto) 0.5 x10^3/uL (0.0-0.7) Basophils # (Auto) 0.1 x10^3/uL (0.0-0.2) Prothrombin Time 20.4 SEC (11.7-14.0) Prothromb Time International Ratio 1.8 (0.8-1.1) Sodium Level 139 mmol/L (136-145) Potassium Level 4.1 mmol/L (3.5-5.1) Chloride Level 105 mmol/L (98-107) Carbon Dioxide Level 29 mmol/L (21-32) Anion Gap 5 (6-14) Blood Urea Nitrogen 11 mg/dL (8-26) Creatinine 0.9 mg/dL (0.7-1.3) Estimated GFR (Cockcroft-Gault) 84.7 BUN/Creatinine Ratio 12 (6-20) Glucose Level 88 mg/dL (70-99) Calcium Level 7.8 mg/dL (8.5-10.1) Total Bilirubin 0.5 mg/dL (0.2-1.0) Aspartate Amino Transf (AST/SGOT) 23 U/L (15-37) Alanine Aminotransferase (ALT/SGPT) 8 U/L (16-63) Alkaline Phosphatase 119 U/L (46-116) Troponin I High Sensitivity 9 ng/L (4-75) WS-Fom-I-Type Natriuretic Peptide 4460 pg/mL (0-124) Total Protein 6.7 g/dL (6.4-8.2) Albumin 2.0 g/dL (3.4-5.0) Albumin/Globulin Ratio 0.4 (1.0-1.7) Lipase 29 U/L (73-393) Stool Occult Blood Positive (NEG) Urine Collection Type Unknown Urine Color (Auto) Yellow Urine Turbidity Hazy Urine pH (Auto) 5.5 (<5.0-8.0) Urine Specific Balsam 1.039 (1.000-1.030) Urine Protein (Auto) Negative mg/dL (Negative) Urine Glucose (Auto)(UA) Negative mg/dL (Negative) Urine Ketones (Auto) Negative mg/dL (Negative) Urine Blood (Auto) Small (Negative) Urine Nitrite Negative (Negative) Urine Bilirubin (Auto) Negative (Negative) Urine Urobilinogen (Auto) 3 mg/dL (Normal) Urine Leukocyte Esterase (Auto) Negative (Negative) Urine RBC 1-2 /HPF (0-2) Urine WBC 1-4 /HPF (0-4) Urine Squamous Epithelial Cells Occ /LPF Urine Bacteria 0 /HPF (0-FEW) Urine Opiates Screen Pos (NEG) Urine Methadone Screen Neg (NEG) Urine Barbiturates Neg (NEG) Urine Phencyclidine Screen Neg (NEG) Urine Amphetamine/Methamphetamine Neg (NEG) Urine Benzodiazepines Screen Neg (NEG) Urine Cocaine Screen Neg (NEG) Urine Cannabinoids Screen Neg (NEG) Urine Ethyl Alcohol Neg (NEG) Influenza Type A Antigen Negative (NEGATIVE) Influenza Type B Antigen Negative (NEGATIVE) SARS-CoV-2 Antigen (Rapid) Negative (NEGATIVE) Test 05/22/21 17:36 05/22/21 20:52 05/23/21 06:00 05/23/21 07:30 Glucose (Fingerstick) 106 mg/dL (70-99) 118 mg/dL (70-99) 81 mg/dL (70-99) White Blood Count 6.0 x10^3/uL (4.0-11.0) Red Blood Count 3.30 x10^6/uL (4.30-5.70) Hemoglobin 8.2 g/dL (13.0-17.5) Hematocrit 26.5 % (39.0-53.0) Mean Corpuscular Volume 80 fL (79-100) Mean Corpuscular Hemoglobin 25 pg (25-35) Mean Corpuscular Hemoglobin Concent 31 g/dL (31-37) Red Cell Distribution Width 19.1 % (11.5-14.5) Platelet Count 368 x10^3/uL (140-400) Neutrophils (%) (Auto) 64 % (31-73) Lymphocytes (%) (Auto) 18 % (24-48) Monocytes (%) (Auto) 9 % (0-9) Eosinophils (%) (Auto) 8 % (0-3) Basophils (%) (Auto) 2 % (0-3) Neutrophils # (Auto) 3.9 x10^3/uL (1.8-7.7) Lymphocytes # (Auto) 1.1 x10^3/uL (1.0-4.8) Monocytes # (Auto) 0.5 x10^3/uL (0.0-1.1) Eosinophils # (Auto) 0.5 x10^3/uL (0.0-0.7) Basophils # (Auto) 0.1 x10^3/uL (0.0-0.2) VTE Prophylaxis Ordered VTE Prophylaxis Devices: Yes VTE Pharmacological Prophylaxi: Yes Assessment/Plan Assessment/Plan Leg wounds, sacral wound nausea and vomiting, poss viral enteritis, abdomninal pain, poor po intake, supportive care, ' acute on chronic combined CHF severe malnutrition, serum albumin 2.0 weakness, debility, deconditioning cognitive decline, aphasia, hx drug abuse DM2, htn, coronary artery disease, multiple toe amputations done, right leg bypass done with a wound onto the right groin, coronary artery bypass grafting done. Justifications for Admission Other Justification Hypotension ADAMS DUONG MD May 23, 2021 11:30
--- NOTE | 2021-05-23 13:35 | PDOC2 ---
RADHA MORELOS XIANG 05/23/21 1335: CARDIAC CONSULT DATE OF CONSULT Date of Consult DATE: 05/23/21 TIME: 13:27 REASON FOR CONSULT Reason for Consult: CHF REFERRING PHYSICIAN Referring Physician: Sara Muniz APRN SOURCE Source: Chart review, Patient HISTORY OF PRESENT ILLNESS HISTORY OF PRESENT ILLNESS This is a 65 yo male who presented from nursing facility secondary to abdominal pain and altered mental status. CXR noted with pulmonary edema, which prompted this consult. Patient presently denies any shortness of breath or chest pain. Has mild LE edema. Reports compliance with medications. Has been receiving wound care to right though wound. PAST MEDICAL HISTORY Cardiovascular: AFIB, CAD, CHF, HTN, Hyperlipidemia, Other (PAD) CENTRAL NERVOUS SYSTEM: CVA, Periperal neuropathy Heme/Onc: Other (DVT) Psych: Anxiety Endocrine: Diabetes PAST SURGICAL HISTORY Past Surgical History: CABG FAMILY HISTORY Family History: Cancer SOCIAL HISTORY Smoke: Quit ALCOHOL: other (h/o heavy use ) Drugs: Crystal meth (h/o use ) Lives: [facility]Way CURRENT MEDICATIONS CURRENT MEDICATIONS Current Medications Medications (Trade) Dose Ordered Sig/Lizzeth Route PRN Reason Start Time Stop Time Status Last Admin Dose Admin Acetaminophen/ Hydrocodone Bitart (Lortab 5/325) 1 tab 1X ONCE PO 05/22/21 14:00 05/22/21 14:01 DC 05/22/21 14:07 Furosemide (Lasix) 40 mg 1X ONCE IVP 05/22/21 14:00 05/22/21 14:01 DC 05/22/21 14:07 ALLERGIES ALLERGIES: Coded Allergies: No Known Drug Allergies (Unverified , 04/26/21) ROS Review of System 14 point ROS conducted with pertinent positives noted above in hPI PHYSICAL EXAM General: Alert, Oriented X3, Cooperative HEENT: Atraumatic Lungs: Other (diminished bases) Heart: Regular rate (SR) Abdomen: Soft Skin: Other (right thigh and coccyx wound ) Neuro: Normal speech, Sensation intact Psych/Mental Status: Mental status NL, Mood NL MUSCULOSKELETAL: Osteoarthritic changes both hands VITALS/I&O VITALS/I&O: Vital Signs Date Time Temp Pulse Resp B/P (MAP) Pulse Ox O2 Delivery O2 Flow Rate FiO2 05/23/21 11:00 97.4 64 18 122/75 (91) 99 Room Air 97.4 I & O 05/22/21 05/22/21 05/23/21 15:00 23:00 07:00 Intake Total 150 ml 410 ml 313 ml Balance 150 ml 410 ml 313 ml LABS Lab: Laboratory Tests Test 05/22/21 14:15 05/22/21 16:14 05/22/21 17:36 05/22/21 20:52 Urine Collection Type Unknown Urine Color (Auto) Yellow Urine Turbidity Hazy Urine pH (Auto) 5.5 (<5.0-8.0) Urine Specific [place] 1.039 (1.000-1.030) Urine Protein (Auto) Negative mg/dL (Negative) Urine Glucose (Auto)(UA) Negative mg/dL (Negative) Urine Ketones (Auto) Negative mg/dL (Negative) Urine Blood (Auto) Small (Negative) Urine Nitrite Negative (Negative) Urine Bilirubin (Auto) Negative (Negative) Urine Urobilinogen (Auto) 3 mg/dL (Normal) Urine Leukocyte Esterase (Auto) Negative (Negative) Urine RBC 1-2 /HPF (0-2) Urine WBC 1-4 /HPF (0-4) Urine Squamous Epithelial Cells Occ /LPF Urine Bacteria 0 /HPF (0-FEW) Urine Opiates Screen Pos (NEG) Urine Methadone Screen Neg (NEG) Urine Barbiturates Neg (NEG) Urine Phencyclidine Screen Neg (NEG) Urine Amphetamine/Methamphetamine Neg (NEG) Urine Benzodiazepines Screen Neg (NEG) Urine Cocaine Screen Neg (NEG) Urine Cannabinoids Screen Neg (NEG) Urine Ethyl Alcohol Neg (NEG) Influenza Type A Antigen Negative (NEGATIVE) Influenza Type B Antigen Negative (NEGATIVE) SARS-CoV-2 Antigen (Rapid) Negative (NEGATIVE) Glucose (Fingerstick) 106 mg/dL (70-99) H 118 mg/dL (70-99) H Test 05/23/21 06:00 05/23/21 07:30 05/23/21 11:39 White Blood Count 6.0 x10^3/uL (4.0-11.0) Red Blood Count 3.30 x10^6/uL (4.30-5.70) L Hemoglobin 8.2 g/dL (13.0-17.5) L Hematocrit 26.5 % (39.0-53.0) L Mean Corpuscular Volume 80 fL (79-100) Mean Corpuscular Hemoglobin 25 pg (25-35) Mean Corpuscular Hemoglobin Concent 31 g/dL (31-37) Red Cell Distribution Width 19.1 % (11.5-14.5) H Platelet Count 368 x10^3/uL (140-400) Neutrophils (%) (Auto) 64 % (31-73) Lymphocytes (%) (Auto) 18 % (24-48) L Monocytes (%) (Auto) 9 % (0-9) Eosinophils (%) (Auto) 8 % (0-3) H Basophils (%) (Auto) 2 % (0-3) Neutrophils # (Auto) 3.9 x10^3/uL (1.8-7.7) Lymphocytes # (Auto) 1.1 x10^3/uL (1.0-4.8) Monocytes # (Auto) 0.5 x10^3/uL (0.0-1.1) Eosinophils # (Auto) 0.5 x10^3/uL (0.0-0.7) Basophils # (Auto) 0.1 x10^3/uL (0.0-0.2) Glucose (Fingerstick) 81 mg/dL (70-99) 97 mg/dL (70-99) Laboratory Tests 05/23/21 06:00 ECHOCARDIOGRAM ECHOCARDIOGRAM <Conclusion> The systolic function is severely impaired. EF 30 to 35%. There is severe global hypokinesis of the left ventricle. Septal motion consistent with conduction abnormality. Doppler and Color Flow revealed mild to moderate tricuspid regurgitation with an estimated PAP of 49 mmHg. Technically difficult study. DATE: 04/04/21 [id number] 0 STRESS TEST STRESS TEST Conclusion 1. Regadenoson cardioisotope stress test showed small to moderate infarct involving the basal to mid inferior and inferolateral hawk without any ischemia. 2. Basal inferior wall hypokinesis and abnormal septal wall motion with ejection fraction calculated at 44%. 3. Low to intermediate risk for cardiac events. DATE: 02/18/20 [id number] 0 HEART CATH HEART CATH [facility] Conclusion 1. Severely elevated biventricular filling pressures 2. Moderate secondary pulmonary hypertension, mean PA 38 mmHg 3. Normal cardiac output Recommendations 1. Continue aggressive diuresis 2. Please see [facility] report for details regarding cardioversion. DATE: 06/28/20 [id number] 0 ASSESSMENT/PLAN ASSESSMENT/PLAN 1. Abdominal pain, anemia. s/p transfusion. CT with ascites 2. Acute on chronic diastolic/systolic CHF; improved s/p IV Lasix 3. ICM: LVEF 30-35% per echo 04/12 4. CAD; past emergent CABG x2 08/13/2016 due to recurrent ISR, clinically stable. on Plavix 5. PAFIB/flutter; s/p CV. presently SR 6. Hypertension; controlled 7. Hyperlipidemia; statin 8. Diabetes, II 9. Severe LE PAD; s/p previous left fem-pop bypass and more recent right femoral to above knee popliteal bypass 12/2020. Had persistent seroma of the right thigh and underwent drainage sartorious muscle flap recently and had wound vac. Wound remains open 10. H/o substance abuse, methamphetamine use 11. Coccyx wound Recommendations HF optimization Add low-dose Coreg and Lasix therapy Consider Entresto Secondary prevention Continue Amiodarone for rhythm maintenance Eliquis for stroke prophylaxis for now Monitor hgb, follow GI recs Supportive care JEFFREY PENA MD 05/24/21 0717: CARDIAC CONSULT ASSESSMENT/PLAN ASSESSMENT/PLAN Late entry for 05/23/2021 Patient seen and examined. Agree with above nurse practitioner note. Supportive care. RADHA MORELOS APRN May 23, 2021 13:35 JEFFREY PENA MD May 24, 2021 07:17
[2021-05-23] MEDS ORDERED: BISA10SU4 RC (14:10)
[2021-05-23] MEDS ORDERED: FERR325T14 PO (14:10)
[2021-05-23] MEDS ORDERED: NA P133E2 RC (14:10)
[2021-05-23] MEDS ORDERED: MAGN400O7 PO (14:10)
[2021-05-23] MEDS ORDERED: DAPT350V IV (14:10)
[2021-05-23] MEDS ORDERED: BISACODYL 10 MG SUPP.RECT. RC PRN (14:15)
[2021-05-23] MEDS ORDERED: MAGNESIUM HYDROXIDE 2,400 MG/30 ML ORAL.SUSP. PO PRN (14:15)
[2021-05-23] MEDS ORDERED: IPRATRPIUM/ALBUTEROL 0.5/2.5MG 3 ML NEBU. NEB PRN (14:15)
[2021-05-23] MEDS ORDERED: HYDROcodone/APAP 7.5/325MG 1 TAB TABLET PO PRN (14:15)
[2021-05-23] MEDS ORDERED: DOCUSATE SODIUM 100 MG CAPSULE. PO PRN (14:15)
[2021-05-23 15:00] VITALS: BP 126/75
[2021-05-23] MEDS: AMIODARONE HCL 200 MG TABLET. PO SCH (16:33)
[2021-05-23] MEDS: PANTOPRAZOLE 40 MG TABLET.DR. PO SCH (16:33)
[2021-05-23] MEDS: OLANZapine 5 MG TABLET PO SCH ×2 (16:33→20:04)
[2021-05-23] MEDS: FLUoxetine HCL 20 MG CAPSULE PO SCH (16:33)
[2021-05-23] MEDS: CLOPIDOGREL BISULFATE 75 MG TABLET PO SCH (16:33)
--- NOTE | 2021-05-23 17:34 | NUR ---
Wound/Ostomy Care Wound Type/Assessment: Patient seen per wound care consult. See wound assessment. Patient is well known to us from the wound clinic and previous admissions. Patient has surgical wound to right groin and an unstageable PU to bilateral buttocks. Wound cleansed and assessed. The right groin wound is clean and well granulated, the buttocks is slough covered with pink edges but has improved from his previous admissions. Treatment Recommendations/Plan: Recommendations for honey alginate to buttocks wounds and cover with foam dressing, to the right groin pack with Hydrofera blue and cover with ABD pad and tape. Change every other day. Dressings applied. Education provided: Patient educated on dressing changes and POC. Offloading surface/device: Patient transferred to the -500 bed at this time. Patient set up for supper therefore on back at this time. There is a purple wedge in the room. Patient should turn every 2 hours. Recommended Referrals/Tests: N/A Discharge Recommendations for dressings: We will continue the current POC. If patient should need the wound vac reapplied, we may do so, but patient may be discharging in the next day or two. Wound care will follow up on 06/01/21.
[2021-05-23] MEDS: FERROUS SULFATE 325 MG TABLET. PO SCH (17:36)
[2021-05-23] MEDS: CARVEDILOL 3.125 MG TABLET. PO SCH (18:20)
[2021-05-23 19:00] VITALS: BP 143/68
[2021-05-23] MEDS: APIXABAN 5 MG TABLET. PO SCH (20:04)
[2021-05-23] MEDS ORDERED: TAMSULOSIN 0.4 MG CAP.ER.24H. PO SCH (21:00)
[2021-05-23] MEDS ORDERED: QUEtiapine 100 MG TABLET. PO SCH (21:00)
[2021-05-23] MEDS ORDERED: ATORVASTATIN CALCIUM 40 MG TABLET. PO SCH (21:00)
[2021-05-23 22:41] VITALS: BP 122/67
[2021-05-24 02:47] VITALS: BP 132/72
[2021-05-24] MEDS: PANTOPRAZOLE 40 MG TABLET.DR. PO SCH (05:38)
[2021-05-24 07:00] VITALS: BP 127/73
[2021-05-24] MEDS ORDERED: FUROSEMIDE 20 MG TABLET PO SCH ×2 (09:00)
[2021-05-24] MEDS: FLUoxetine HCL 20 MG CAPSULE PO SCH (09:22)
[2021-05-24] MEDS: FERROUS SULFATE 325 MG TABLET. PO SCH (09:22)
[2021-05-24] MEDS: CARVEDILOL 3.125 MG TABLET. PO SCH (09:23)
[2021-05-24] MEDS: AMIODARONE HCL 200 MG TABLET. PO SCH (09:23)
[2021-05-24] MEDS: APIXABAN 5 MG TABLET. PO SCH (09:23)
[2021-05-24] MEDS: OLANZapine 5 MG TABLET PO SCH (09:23)
[2021-05-24] MEDS: CLOPIDOGREL BISULFATE 75 MG TABLET PO SCH (09:23)
--- NOTE | 2021-05-24 10:14 | PDOC ---
RADHA MORELOS DREDGE PUMPER 05/24/21 1014: CARDIO Progress Notes Date and Time Date of Service 05/24/21 Time of Evaluation 1015 Subjective Subjective: No Chest Pain, No Palpitations, No Dizziness, Other (mild SOA. abdomen full) Vitals Vitals Vital Signs Date Time Temp Pulse Resp B/P (MAP) Pulse Ox O2 Delivery O2 Flow Rate FiO2 05/24/21 09:23 64 127/73 05/24/21 07:00 97.8 18 96 Room Air 97.8 Weight Weight [ ] Input and Output Intake and Output Intake and Output 05/24/21 07:00 Intake Total 1440 ml Output Total 250 ml Balance 1190 ml Intake Oral 1440 ml Output Urine Total 200 ml Emesis 50 ml # Voids 6 # Bowel Movements 1 Laboratory Labs Laboratory Tests Test 05/23/21 11:39 05/23/21 16:58 05/23/21 20:19 05/24/21 08:51 Glucose (Fingerstick) 97 mg/dL (70-99) 98 mg/dL (70-99) 110 mg/dL (70-99) 77 mg/dL (70-99) Test 05/24/21 09:17 Glucose (Fingerstick) 73 mg/dL (70-99) Physical Exam HEENT: Neck Supple W Full Motion Chest: Symmetric LUNGS: Other (diminished bases) Heart: RRR Abdomen: Other (distended) Extremities: Other (trace pedal edema. right thigh wound with drsg intact ) Neurology: alert, follow commands Assessment Assessment 1. Abdominal pain, anemia. s/p transfusion. CT with ascites 2. Acute on chronic diastolic/systolic CHF; improved s/p IV Lasix 3. ICM: LVEF 30-35% per echo 04/12 4. CAD; past emergent CABG x2 08/13/2016 due to recurrent ISR, clinically sta ble. on Plavix 5. PAFIB/flutter; s/p CV. presently SR 6. Hypertension; controlled 7. Hyperlipidemia; statin 8. Diabetes, II 9. Severe LE PAD; s/p previous left fem-pop bypass and more recent right femoral to above knee popliteal bypass 12/2020. Had persistent seroma of the right thigh and underwent drainage sartorious muscle flap recently and had wound vac. Wound remains open 10. H/o substance abuse, methamphetamine use 11. Coccyx wound 12. Anemia; s/p transfusion; hgb stable Recommendations Will give extra dose of Lasix today Low dose Coreg. Add ARB Secondary prevention Continue Amiodarone for rhythm maintenance Eliquis for stroke prophylaxis Will need outpatient monitor of hgb Supportive care Justicifation of Admission Dx: Justifications for Admission: Justification of Admission Dx: No MO: Acute NSTEMI JEFFREY PENA MD 05/24/210: CARDIO Progress Notes Plan Plan The patient was seen and interviewed as well as examined at the bedside. The chart was reviewed. The case was discussed. Agree with the plan of care. RADHA MORELOS APRN May 24, 2021 10:14 JEFFREY PENA MD May 24, 2021 18:10
--- NOTE | 2021-05-24 10:19 | PDOC ---
Date of Service: DATE: 05/24/21 TIME: 10:14 Subjective: Subjective: Nurse present - pt currently anxious about glucose 73 - no GI concerns, no bleeding. Objective: Vital Signs: Vital Signs Date Time Temp Pulse Resp B/P (MAP) Pulse Ox O2 Delivery O2 Flow Rate FiO2 05/24/21 09:23 64 127/73 05/24/21 07:00 97.8 18 96 Room Air 97.8 Labs: Laboratory Tests Test 05/23/21 11:39 05/23/21 16:58 05/23/21 20:19 05/24/21 08:51 Glucose (Fingerstick) 97 mg/dL 98 mg/dL 110 mg/dL 77 mg/dL Test 05/24/21 09:17 Glucose (Fingerstick) 73 mg/dL PE: GEN: NAD LUNGS: room air HEART: RRR ABD: soft, non-distended NEURO/PSYCH: anxious, drinking orange juice A/P: CHF Known FRANKO - no obvious GI bleeding, no previous scopes - on Plavix, Eliquis PAD, right thigh seroma s/p drainage -- Continue same from GI standpoint - PPI, iron, follow Hgb. Consider 'scopes as able later on. Justicifation of Admission Dx: Justifications for Admission: Justification of Admission Dx: No AR: Acute NSTEMI LADY MANNING May 24, 2021 10:19
--- NOTE | 2021-05-24 10:37 | NUR ---
[facility] nursing staff took tamiko the wound vac this AM
[2021-05-24 11:00] VITALS: BP 129/77
[2021-05-24 11:57] LABS: HEMOGLOBIN 9.2 g/dL (13.0-17.5)
[2021-05-24] MEDS ORDERED: FURO20TA3 PO (12:23)
[2021-05-24] MEDS ORDERED: HYDR-2763 PO (12:23)
--- NOTE | 2021-05-24 12:25 | NUR ---
SS following for discharge planning. SS reviewed pt chart and discussed with pt RN. Pt is skilled rehabilitation resident from [facility], ; fax [phone]. COVID19 negative on rapid test. Wound care following. Clinical updates phoned and faxed to [facility] and pt able to return to facility. [facility] will accept rapid COVID19 test. Discharge orders received and sent to [facility]. Pt will discharge today and return to [facility] via stretcher transport. [facility] to provide transportation. Pt and pt's RN notified. Addendum: 05/24/21 at 1245 by GREGG LEE Pt discharging at 1530 today via [facility] [employer] [facility].
--- NOTE | 2021-05-24 12:26 | SNU/HH DC ---
DISCHARGE ORDERS DISCHARGE INFORMATION: DISCHARGE DATE: May 24, 2021 FINAL DIAGNOSIS Leg wounds, sacral wound nausea and vomiting, acute viral enteritis, abdominal pain, poor po intake, improved acute on chronic combined CHF severe malnutrition, serum albumin 2.0 weakness, debility, deconditioning cognitive decline, aphasia, hx drug abuse DM2, htn, coronary artery disease, multiple toe amputations done, right leg bypass done with a wound onto the right groin, coronary artery bypass hx Problems Medical Problems: (1) Low hemoglobin Status: Acute CONDITION ON DISCHARGE: Stable CODE STATUS: Code Status: DNR/DNI ALF: SNF STAY <30 DAYS: Yes POST DISCHARGE ORDERS: ACTIVITY ORDERS: Activity as tolerated WEIGHT BEARING STATUS: As tolerated BATHING ORDERS: No Tub Bath until see Dr. MERIDA AFTER DISCHARGE: Cardiac WOUND/INCISION CARE: Keep wound/cast CDI, Change dressing OTHER ORDERS: IV antibiotics per infectious disease recommendati CHECKS AFTER DISCHARGE: CHECKS AFTER DISCHARGE: Check blood press - daily, Check blood sugar, ac/hs, Weigh Yourself Daily FOLLOW-UP: LAB ORDERS FOR FOLLOW-UP: CBC, chem 12, BNP on 05/31 TREATMENT/EQUIPMENT ORDERS: ADAPTIVE EQUIPMENT NEEDED: None Physical Therapy For: Evalulation/Treatment Occupational Therapy For: Evaluation/Treatment DISCHARGE MEDICATIONS: Home Meds Active Scripts Furosemide (FUROSEMIDE) 20 Mg Tablet, 20 MG PO DAILY for CHF, #30 TAB Prov:ADAMS DUONG MD 05/24/21 Hydrocodone/Acetaminophen (Hydrocodone-Acetamin 7.5-325) 1 Each Tablet, 1 EACH PO QIDPRN for pain, #30 TAB Prov:ADAMS DUONG MD 05/24/21 Docusate Sodium (COLACE) 100 Mg Capsule, 100 MG PO PRN DAILY PRN for HARD STOOLS, #30 CAP Prov:ADAMS DUONG MD 04/13/21 Tamsulosin Hcl (FLOMAX) 0.4 Mg Cap.er.24h, 0.4 MG PO QHS for urine retention, #30 CAP.SR Prov:ADAMS DUONG MD 01/31/21 Multivits,Ca,Minerals/Iron/Fa (THERA-M TABLET) 1 Each Tablet, 1 TAB PO DAILY for wounds, #30 TAB Prov:ADAMS DUONG MD 01/31/21 Atorvastatin Calcium (ATORVASTATIN CALCIUM) 40 Mg Tablet, 40 MG PO QHS for 30 Days, #30 TAB Prov:JACINTO LOVE MD 08/07/16 Reported Medications Na Phos,M-B/Na Phos,Di-Ba (FLEET ENEMA) 133 Ml Enema, 1 EACH RC PRN DAILY PRN for CONSTIPATION, #1 BOTTLE 05/23/21 Ferrous Sulfate (FERROUS SULFATE) 325 Mg Tablet, 1 TAB PO BID for , #60 TAB 3 Refills 05/23/21 Bisacodyl (BISACODYL) 10 Mg Supp.rect, 10 MG RC PRN DAILY PRN for CONSTIPATION, SUPP.RECT 0 Refills 05/23/21 Daptomycin (Daptomycin) 350 Mg Vial, 430 MG IV DAILY for , EACH 05/23/21 Magnesium Hydroxide (MILK OF MAGNESIA) 400 Mg/5 Ml Oral.susp, 400 MG PO PRN DAILY PRN for CONSTIPATION, MISC 05/23/21 Quetiapine Fumarate (SEROQUEL) 100 Mg Tablet, 100 MG PO HS for restlessness, TAB 04/20/21 Olanzapine (OLANZAPINE) 5 Mg Tablet, 5 MG PO BID for agitation, TAB 04/20/21 Lactobacillus Acidophilus (PROBIOTIC) 1 Each Capsule, 1 EACH PO BID for bowel health, CAP 04/20/21 Ipratropium/Albuterol Sulfate (DUONEB 0.5-3(2.5) MG/3 ML) 3 Ml Ampul.neb, 3 ML NEB PRN Q4HRS PRN for shortness of breath, EACH 04/20/21 Haloperidol Lactate (HALOPERIDOL LACTATE) 2 Mg/1 Ml Oral.conc, 1 MG PO Q6HRS PRN for angry outbursts, MISC 04/20/21 Gabapentin (GABAPENTIN) 600 Mg Tablet, 300 MG PO TID for NEUROGENIC PAIN, TAB 04/20/21 Fluoxetine Hcl (FLUOXETINE HCL) 20 Mg Capsule, 20 MG PO DAILY for depression, CAP 04/20/21 Clopidogrel Bisulfate (CLOPIDOGREL) 75 Mg Tablet, 75 MG PO DAILY for TO PREVENT BLOOD CLOTS, #30 TAB 0 Refills 04/20/21 Amiodarone Hcl (AMIODARONE HCL) 200 Mg Tablet, 200 MG PO DAILY for irrregular heart rhythm, TAB 04/20/21 Apixaban (ELIQUIS) 5 Mg Tablet, 5 MG PO BID, TAB 10/19/17 ADAMS DUONG MD May 24, 2021 12:26
--- NOTE | 2021-05-24 12:28 | PDOC3 ---
Discharge Summary Visit Information Date of Admission: May 22, 2021 Date of Discharge: May 24, 2021 Final Diagnosis nausea and vomiting, acute viral enteritis, abdominal pain, poor po intake, improved acute on chronic combined CHF severe malnutrition, serum albumin 2.0 weakness, debility, deconditioning \ cognitive decline, aphasia, hx drug abuse DM2, htn, coronary artery disease, multiple toe amputations done, right leg bypass done with a wound onto the right groin, coronary artery bypass hx Problems Medical Problems: (1) Low hemoglobin Status: Acute Brief Hospital Course Allergies Allergies Coded Allergies Type Severity Reaction Last Updated Verified No Known Drug Allergies 04/26/21 No Vital Signs Vital Signs Date Time Temp Pulse Resp B/P (MAP) Pulse Ox O2 Delivery O2 Flow Rate FiO2 05/24/21 11:00 98.0 70 18 129/77 (94) 95 Room Air 98.0 Lab Results Laboratory Tests Test 05/22/21 12:35 05/22/21 14:15 05/22/21 16:14 05/22/21 17:36 Stool Occult Blood Positive (NEG) Urine Collection Type Unknown Urine Color (Auto) Yellow Urine Turbidity Hazy Urine pH (Auto) 5.5 (<5.0-8.0) Urine Specific [place] 1.039 (1.000-1.030) Urine Protein (Auto) Negative mg/dL (Negative) Urine Glucose (Auto)(UA) Negative mg/dL (Negative) Urine Ketones (Auto) Negative mg/dL (Negative) Urine Blood (Auto) Small (Negative) Urine Nitrite Negative (Negative) Urine Bilirubin (Auto) Negative (Negative) Urine Urobilinogen (Auto) 3 mg/dL (Normal) Urine Leukocyte Esterase (Auto) Negative (Negative) Urine RBC 1-2 /HPF (0-2) Urine WBC 1-4 /HPF (0-4) Urine Squamous Epithelial Cells Occ /LPF Urine Bacteria 0 /HPF (0-FEW) Urine Opiates Screen Pos (NEG) Urine Methadone Screen Neg (NEG) Urine Barbiturates Neg (NEG) Urine Phencyclidine Screen Neg (NEG) Urine Amphetamine/Methamphetamine Neg (NEG) Urine Benzodiazepines Screen Neg (NEG) Urine Cocaine Screen Neg (NEG) Urine Cannabinoids Screen Neg (NEG) Urine Ethyl Alcohol Neg (NEG) Influenza Type A Antigen Negative (NEGATIVE) Influenza Type B Antigen Negative (NEGATIVE) SARS-CoV-2 Antigen (Rapid) Negative (NEGATIVE) Glucose (Fingerstick) 106 mg/dL (70-99) Test 05/22/21 20:52 05/23/21 06:00 05/23/21 07:30 05/23/21 11:39 Glucose (Fingerstick) 118 mg/dL (70-99) 81 mg/dL (70-99) 97 mg/dL (70-99) White Blood Count 6.0 x10^3/uL (4.0-11.0) Red Blood Count 3.30 x10^6/uL (4.30-5.70) Hemoglobin 8.2 g/dL (13.0-17.5) Hematocrit 26.5 % (39.0-53.0) Mean Corpuscular Volume 80 fL (79-100) Mean Corpuscular Hemoglobin 25 pg (25-35) Mean Corpuscular Hemoglobin Concent 31 g/dL (31-37) Red Cell Distribution Width 19.1 % (11.5-14.5) Platelet Count 368 x10^3/uL (140-400) Neutrophils (%) (Auto) 64 % (31-73) Lymphocytes (%) (Auto) 18 % (24-48) Monocytes (%) (Auto) 9 % (0-9) Eosinophils (%) (Auto) 8 % (0-3) Basophils (%) (Auto) 2 % (0-3) Neutrophils # (Auto) 3.9 x10^3/uL (1.8-7.7) Lymphocytes # (Auto) 1.1 x10^3/uL (1.0-4.8) Monocytes # (Auto) 0.5 x10^3/uL (0.0-1.1) Eosinophils # (Auto) 0.5 x10^3/uL (0.0-0.7) Basophils # (Auto) 0.1 x10^3/uL (0.0-0.2) Test 05/23/21 16:58 05/23/21 20:19 05/24/21 08:51 05/24/21 09:17 Glucose (Fingerstick) 98 mg/dL (70-99) 110 mg/dL (70-99) 77 mg/dL (70-99) 73 mg/dL (70-99) Test 05/24/21 11:20 05/24/21 11:21 Hemoglobin 9.2 g/dL (13.0-17.5) Hematocrit 30.0 % (39.0-53.0) Mean Corpuscular Hemoglobin Concent 31 g/dL (31-37) Glucose (Fingerstick) 78 mg/dL (70-99) Laboratory Tests Test 05/23/21 16:58 05/23/21 20:19 05/24/21 08:51 05/24/21 09:17 Glucose (Fingerstick) 98 mg/dL (70-99) 110 mg/dL (70-99) 77 mg/dL (70-99) 73 mg/dL (70-99) Test 05/24/21 11:20 05/24/21 11:21 Hemoglobin 9.2 g/dL (13.0-17.5) Hematocrit 30.0 % (39.0-53.0) Mean Corpuscular Hemoglobin Concent 31 g/dL (31-37) Glucose (Fingerstick) 78 mg/dL (70-99) Brief Hospital Course Mr. Bruno is a 65 old male with mutl med problems, above, admit for abd pain, nausea and poor po itnake, lasix given for CHF symptoms, nausea better, po intake better for DC Discharge Information Condition at Discharge: Improved Follow Up: Weeks Disposition/Orders: D/C to Another Facility Scheduled Amiodarone Hcl (Amiodarone Hcl) 200 Mg Tablet, 200 MG PO DAILY for irrregular heart rhythm, (Reported) Entered as Reported by: JAEL MARTINEZ on 04/20/21 1106 Last Action: Continued on 05/23/211413 by ADAMS DUONG Apixaban (Eliquis) 5 Mg Tablet, 5 MG PO BID, (Reported) Entered as Reported by: URVASHI VANCE on 10/19/17 1311 Last Action: Continued on 05/23/211413 by ADAMS DUONG Atorvastatin Calcium (Atorvastatin Calcium) 40 Mg Tablet, 40 MG PO QHS for 30 Days, #30 Prescribed by: JACINTO LOVE MD on 08/07/16 1121 Last Action: Continued on 05/23/211413 by ADAMS DUONG Clopidogrel Bisulfate (Clopidogrel) 75 Mg Tablet, 75 MG PO DAILY for TO PREVENT BLOOD CLOTS, #30 Ref 0 (Reported) Entered as Reported by: JAEL MARTINEZ on 04/20/211105 Last Action: Continued on 05/23/211413 by ADAMS DUONG Daptomycin (Daptomycin) 350 Mg Vial, 430 MG IV DAILY for , (Reported) Entered as Reported by: HEBER REBOLLEDO on 05/23/211409 Last Action: New Order on 05/23/211409 by HEBER REBOLLEDO Ferrous Sulfate (Ferrous Sulfate) 325 Mg Tablet, 1 TAB PO BID for , #60 Ref 3 (Reported) Entered as Reported by: HEBER REBOLLEDO on 05/23/211409 Last Action: Continued on 05/23/211413 by ADAMS DUONG Fluoxetine Hcl (Fluoxetine Hcl) 20 Mg Capsule, 20 MG PO DAILY for depression, (Reported) Entered as Reported by: JAEL MARTINEZ on 04/20/211105 Last Action: Continued on 05/23/211413 by ADAMS DUONG Furosemide (Furosemide) 20 Mg Tablet, 20 MG PO DAILY for CHF, #30 Prescribed by: ADAMS DUONG on 05/24/21 1223 Gabapentin (Gabapentin) 600 Mg Tablet, 300 MG PO TID for NEUROGENIC PAIN, (Reported) Entered as Reported by: JAEL MARTINEZ on 04/20/211105 Last Action: Reviewed on 05/23/211409 by HEBER REBOLLEDO Hydrocodone/Acetaminophen (Hydrocodone-Acetamin 7.5-325) 1 Each Tablet, 1 EACH PO QIDPRN for pain, #30 Prescribed by: ADAMS DUONG on 05/24/21 1224 Lactobacillus Acidophilus (Probiotic) 1 Each Capsule, 1 EACH PO BID for bowel health, (Reported) Entered as Reported by: JAEL MARTINEZ on 04/20/211105 Last Action: Reviewed on 05/23/211409 by HEBER REBOLLEDO Multivits,Ca,Minerals/Iron/Fa (Thera-M Tablet) 1 Each Tablet, 1 TAB PO DAILY for wounds, #30 Prescribed by: ADAMS DUONG on 01/31/21 1153 Last Action: Reviewed on 05/23/211409 by HEBER REBOLLEDO Olanzapine (Olanzapine) 5 Mg Tablet, 5 MG PO BID for agitation, (Reported) Entered as Reported by: JAEL MARTINEZ on 04/20/211105 Last Action: Continued on 05/23/211413 by ADAMS DUONG Quetiapine Fumarate (Seroquel) 100 Mg Tablet, 100 MG PO HS for restlessness, (Reported) Entered as Reported by: JAEL MARTINEZ on 04/20/211105 Last Action: Continued on 05/23/211413 by ADAMS DUONG Tamsulosin Hcl (Flomax) 0.4 Mg Cap.er.24h, 0.4 MG PO QHS for urine retention, #30 Prescribed by: ADAMS DUONG on 01/31/21 1153 Last Action: Continued on 05/23/211413 by ADAMS DUONG Scheduled PRN Bisacodyl (Bisacodyl) 10 Mg Supp.rect, 10 MG RC PRN DAILY PRN for CONSTIPATION, Ref 0 (Reported) Entered as Reported by: HEBER REBOLLEDO on 05/23/211409 Last Action: Continued on 05/23/211413 by ADAMS DUONG Docusate Sodium (Colace) 100 Mg Capsule, 100 MG PO PRN DAILY PRN for HARD STOOLS, #30 Prescribed by: ADAMS DUONG on 04/13/21 1526 Last Action: Continued on 05/23/211413 by ADAMS DUONG Haloperidol Lactate (Haloperidol Lactate) 2 Mg/1 Ml Oral.conc, 1 MG PO Q6HRS PRN for angry outbursts, (Reported) Entered as Reported by: JAEL MARTINEZ on 04/20/211105 Last Action: Edited on 05/23/211409 by HEBER REBOLLEDO Ipratropium/Albuterol Sulfate (Duoneb 0.5-3(2.5) Mg/3 Ml) 3 Ml Ampul.neb, 3 ML NEB PRN Q4HRS PRN for shortness of breath, (Reported) Entered as Reported by: JAEL MARTINEZ on 04/20/211105 Last Action: Continued on 05/23/211413 by ADAMS DUONG Magnesium Hydroxide (Milk Of Magnesia) 400 Mg/5 Ml Oral.susp, 400 MG PO PRN DAILY PRN for CONSTIPATION, (Reported) Entered as Reported by: HEBER REBOLLEDO on 05/23/211409 Last Action: Continued on 05/23/211413 by ADAMS DUONG Na Phos,M-B/Na Phos,Di-Ba (Fleet Enema) 133 Ml Enema, 1 EACH RC PRN DAILY PRN for CONSTIPATION, #1 (Reported) Entered as Reported by: HEBER REBOLLEDO on 05/23/211409 Last Action: New Order on 05/23/211409 by HEBER REBOLLEDO Patient Instructions Patient Instructions to skilled cont IV abx for wounds PO intake better face to face, 39 min Justicifation of Admission Dx: Justifications for Admission: Justification of Admission Dx: No CT: Acute NSTEMI ADAMS DUONG MD May 24, 2021 12:28
[2021-05-24] MEDS ORDERED: ANTI-COAG MONITOR BY PHARMACY. MC PRN (13:45)
[2021-05-24 15:00] VITALS: BP 129/75
[2021-05-24] MEDS ORDERED: POTASSIUM CHLORIDE 20 MEQ TABLET.ER. PO ONE (15:30)
[2021-05-24] MEDS ORDERED: FUROSEMIDE 40 MG/4 ML VIAL. IVP ONE (15:30)
--- NOTE | 2021-05-24 16:33 | NUR ---
pt discharged to [facility] via EMS transport with all belongings. Attempted to call report to [place] no answer. Will attempt at a later time.
[2021-05-25] MEDS ORDERED: LOSARTAN POTASSIUM 25 MG TABLET. PO SCH (09:00)
== END 2021-05-24 16:34 | DRG 193 ==
LOC: ER 11:13 → ED HOLD 13:39 → 6 SOUTH 15:00
PROVIDERS: ADMIT Internal Medicine; ATTEND Internal Medicine
PROC: 30233N1 Transfusion of Nonautologous Red Blood Cells into Peripheral Vein, Percutaneous Approach (ICD-10-PCS; principal; 2021-05-23)
DX: J18.9 Pneumonia, unspecified organism (principal); I50.43 Acute on chronic combined systolic (congestive) and diastolic (congestive) heart failure; E43 Unspecified severe protein-calorie malnutrition; I13.0 Hypertensive heart and chronic kidney disease with heart failure and stage 1 through stage 4 chronic kidney disease, or unspecified chronic kidney disease; R18.8 Other ascites; R47.01 Aphasia; A08.4 Viral intestinal infection, unspecified; E11.22 Type 2 diabetes mellitus with diabetic chronic kidney disease; E78.00 Pure hypercholesterolemia, unspecified; E78.5 Hyperlipidemia, unspecified; I25.10 Atherosclerotic heart disease of native coronary artery without angina pectoris; I25.2 Old myocardial infarction; I48.0 Paroxysmal atrial fibrillation; K76.0 Fatty (change of) liver, not elsewhere classified; L98.429 Non-pressure chronic ulcer of back with unspecified severity; N18.30 Chronic kidney disease, stage 3 unspecified; N20.0 Calculus of kidney; N40.0 Benign prostatic hyperplasia without lower urinary tract symptoms; Z66 Do not resuscitate; Z80.9 Family history of malignant neoplasm, unspecified; Z86.73 Personal history of transient ischemic attack (TIA), and cerebral infarction without residual deficits; Z87.11 Personal history of peptic ulcer disease; Z87.891 Personal history of nicotine dependence; Z95.1 Presence of aortocoronary bypass graft; F41.9 Anxiety disorder, unspecified; M19.90 Unspecified osteoarthritis, unspecified site; Z20.822 Contact with and (suspected) exposure to COVID-19; Z86.718 Personal history of other venous thrombosis and embolism; Z68.27 Body mass index [BMI] 27.0-27.9, adult
CPT/HCPCS: 36415; 36430; 70450; 71045; 74177; 80053; 80307; 81001; 82274; 82962; 83690; 83880; 84484; 85014; 85018; 85025; 85610; 86850; 86900; 86901; 86920; 87428; 93005; 96361; 96374; J1940; J7030; P9016; Q9967; 99285-25; G0378

== ENCOUNTER 2021-05-26 16:22 | Inpatient (IN) | payer MEDICARE ==
[~2021-05-26] VITALS: Ht 185.4 cm; Wt 93.4 kg
[~2021-05-26 16:22] MED LIST changes: +BISA10SU4 RC; +DAPT350V IV; +FERR325T14 PO; +FURO20TA3 PO; +MAGN400O7 PO; +NA P133E2 RC
[2021-05-26] MEDS ORDERED: MORPHINE SULFATE 4 MG/ML INJ. IV/SQ PRN (16:30)
--- NOTE | 2021-05-26 16:47 | EKG ---
[facility] [address] [place] [address] Test Date: 2021-05-26 Test Time: 16:39:31 Pat Name: ELYSSA CONTRERAS Department: Room: Gender: M Certified Registered Dental Assistant: : [id number] Requested By: OLVIN MENDES Order Number: [id number] Reading MD: Lance Brantley Measurements Intervals [place] Rate: 68 P: 90 IA: 256 QRS: 53 QRSD: 180 T: -36 QT: 444 QTc: 477 Interpretive Statements SINUS RHYTHM PROLONGED IA INTERVAL LOW LIMB LEAD VOLTAGE RIGHT BUNDLE BRANCH BLOCK Electronically Signed On 06-03-2021 14:20:36 CDT by Lance Brantley
[2021-05-26 17:38] LABS: BASO # 0.1 x10^3/uL (0.0-0.2); BASO % 1 % (0-3); EOS # 0.6 x10^3/uL (0.0-0.7); EOS % 9 % (0-3); HEMATOCRIT 27.7 % (39.0-53.0); HEMOGLOBIN 8.5 g/dL (13.0-17.5); LYMPH # 1.2 x10^3/uL (1.0-4.8); LYMPH % 18 % (24-48); MEAN CORPUSCULAR HEMOGLOBIN 25 pg (25-35); MEAN CORPUSCULAR HGB CONC 31 g/dL (31-37); MEAN CORPUSCULAR VOLUME 81 fL (79-100); MONO # 0.6 x10^3/uL (0.0-1.1); MONO % 8 % (0-9); NEUT # 4.4 x10^3/uL (1.8-7.7); NEUT % 64 % (31-73); PLATELET COUNT 423 x10^3/uL (140-400); RED BLOOD COUNT 3.44 x10^6/uL (4.30-5.70); RED CELL DISTRIBUTION WIDTH 19.8 % (11.5-14.5)
[2021-05-26 18:10] LABS: CREATININE 1.2 mg/dL (0.7-1.3); GFR 60.8
[2021-05-26 18:16] LABS: ALBUMIN 2.4 g/dL (3.4-5.0); ALBUMIN/GLOBULIN RATIO 0.5 (1.0-1.7); MAGNESIUM 1.7 mg/dL (1.8-2.4); TOTAL BILIRUBIN 0.5 mg/dL (0.2-1.0); TOTAL PROTEIN 7.3 g/dL (6.4-8.2)
[2021-05-26] MEDS ORDERED: MORPHINE SULFATE 4 MG/ML INJ. IVP ONE (19:15)
[2021-05-26] MEDS ORDERED: IOHEXOL 300 MG/ML 100ML VIAL. IV ONE (19:45)
[2021-05-26] MEDS ORDERED: CONTRAST GIVEN. MC PRN (20:00)
--- NOTE | 2021-05-26 20:25 | PHYS DOC ---
Past Medical History Past Medical History: CAD, Diabetes-Type II, DVT, High Cholesterol, Hypertension, IL Additional Past Medical Histor: NEUROPATHY,DRUG ABUSE,PAD,NSTEMI,BPH,BLOOD THINNERS,PVD Past Surgical History: Coronary Bypass Surgery, Other Additional Past Surgical Histo: lower ext. bypass, wound Vac right thigh Smoking Status: Former Smoker Alcohol Use: None Drug Use: None General Adult EDM: Chief Complaint: ABDOMINAL PAIN HPI: HPI: Patient is a 65 year old male with history of IL, diabetes type 2, CAD, CHF, A- flutter, A. fib, DVT, CVA, TIA, CAD, COPD, presented to the ED today from [facility] facility to be evaluated for 9 out of 10 constant right lower quadrant abdominal pain with swelling, symptoms began yesterday. Patient denies anything specific exacerbating or relieving his pain. Denies any nausea, vomiting or diarrhea. Review of Systems: Review of Systems: Constitutional: Denies fever or chills. [] Eyes: Denies change in visual acuity. [] HENT: Denies nasal congestion or sore throat. [] Respiratory: Denies cough or shortness of breath. [] Cardiovascular: Denies chest pain or edema. [] GI: Reports right lower quadrant abdominal pain with swelling, denies nausea, vomiting, bloody stools or diarrhea. [] : Denies dysuria. [] Musculoskeletal: Denies back pain or joint pain. [] Integument: Reports wound to the right thigh Neurologic: Denies headache, focal weakness or sensory changes. [] Psychiatric: Denies depression or anxiety. [] Heart Score: C/O Chest Pain: N/A Risk Factors: Risk Factors: DM, Current or recent (<one month) smoker, HTN, HLP, family history of CAD, obesity. Risk Scores: Score 0 - 3: 2.5% MACE over next 6 weeks - Discharge Home Score 4 - 6: 20.3% MACE over next 6 weeks - Admit for Clinical Observation Score 7 - 10: 72.7% MACE over next 6 weeks - Early Invasive Strategies Current Medications: Current Medications Medications (Trade) Dose Ordered Sig/Lizzeth Start Time Stop Time Status Last Admin Dose Admin Info (CONTRAST GIVEN -- Rx MONITORING) 1 each PRN DAILY PRN 05/26/21 20:00 05/28/21 19:59 Iohexol (Omnipaque 300 Mg/ml) 75 ml 1X ONCE 05/26/21 19:45 05/26/21 19:48 DC 05/26/21 19:59 75 ML Morphine Sulfate (Morphine Sulfate) 4 mg 1X ONCE 05/26/21 19:15 05/26/21 19:16 DC 05/26/21 19:23 4 MG Allergies: Allergies: Allergies Coded Allergies Type Severity Reaction Last Updated Verified No Known Drug Allergies 04/26/21 No Physical Exam: PE: Constitutional: Well developed, well nourished, no acute distress, non-toxic appearance. [] HENT: Normocephalic, atraumatic, bilateral external ears normal, oropharynx moist, no oral exudates, nose normal. [] Eyes: PERRLA, EOMI, conjunctiva normal, no discharge. [] Neck: Normal range of motion, no tenderness, supple, no stridor. [] Cardiovascular:Heart rate regular rhythm, no murmur [] Lungs & Thorax: Bilateral breath sounds clear to auscultation [] Abdomen: Rounded distended abdomen appears to be ascites, edema all the way to the testicles, bowel sounds normal, soft, no tenderness, no masses, no pulsatile masses. [] Skin: Right thigh with a wound VAC dressing and wound VAC tubing, the wound VAC itself is missing, patient came without from [place]. Coccyx with a stage II wound roughly 5 x 5 cm. Back: No tenderness, no CVA tenderness. [] Extremities: No tenderness, no cyanosis, no clubbing, ROM intact, no edema. [] Neurologic: Alert and oriented X 3, normal motor function, normal sensory function, no focal deficits noted. [] Psychologic: Affect normal, judgement normal, mood normal. [] Current Patient Data: Labs: Laboratory Tests Test 05/26/21 17:20 White Blood Count 7.0 x10^3/uL (4.0-11.0) Red Blood Count 3.44 x10^6/uL (4.30-5.70) L Hemoglobin 8.5 g/dL (13.0-17.5) L Hematocrit 27.7 % (39.0-53.0) L Mean Corpuscular Volume 81 fL (79-100) Mean Corpuscular Hemoglobin 25 pg (25-35) Mean Corpuscular Hemoglobin Concent 31 g/dL (31-37) Red Cell Distribution Width 19.8 % (11.5-14.5) H Platelet Count 423 x10^3/uL (140-400) H Neutrophils (%) (Auto) 64 % (31-73) Lymphocytes (%) (Auto) 18 % (24-48) L Monocytes (%) (Auto) 8 % (0-9) Eosinophils (%) (Auto) 9 % (0-3) H Basophils (%) (Auto) 1 % (0-3) Neutrophils # (Auto) 4.4 x10^3/uL (1.8-7.7) Lymphocytes # (Auto) 1.2 x10^3/uL (1.0-4.8) Monocytes # (Auto) 0.6 x10^3/uL (0.0-1.1) Eosinophils # (Auto) 0.6 x10^3/uL (0.0-0.7) Basophils # (Auto) 0.1 x10^3/uL (0.0-0.2) Sodium Level 137 mmol/L (136-145) Potassium Level 4.0 mmol/L (3.5-5.1) Chloride Level 102 mmol/L (98-107) Carbon Dioxide Level 28 mmol/L (21-32) Anion Gap 7 (6-14) Blood Urea Nitrogen 15 mg/dL (8-26) Creatinine 1.2 mg/dL (0.7-1.3) Estimated GFR (Cockcroft-Gault) 60.8 BUN/Creatinine Ratio 13 (6-20) Glucose Level 109 mg/dL (70-99) H Lactic Acid Level 1.3 mmol/L (0.4-2.0) Calcium Level 8.0 mg/dL (8.5-10.1) L Magnesium Level 1.7 mg/dL (1.8-2.4) L Total Bilirubin 0.5 mg/dL (0.2-1.0) Aspartate Amino Transferase (AST) 19 U/L (15-37) Alanine Aminotransferase (ALT) 9 U/L (16-63) L Alkaline Phosphatase 129 U/L (46-116) H Troponin I High Sensitivity 8 ng/L (4-75) TF-Ysj-W-Type Natriuretic Peptide 7923 pg/mL (0-124) H Total Protein 7.3 g/dL (6.4-8.2) Albumin 2.4 g/dL (3.4-5.0) L Albumin/Globulin Ratio 0.5 (1.0-1.7) L Lipase 43 U/L (73-393) L Procalcitonin < 0.10 ng/mL (0.00-0.10) Thyroid Stimulating Hormone (TSH) 4.771 uIU/mL (0.358-3.74) H Laboratory Tests 05/26/21 17:20 Laboratory Tests 05/26/21 17:20 Vital Signs: Vital Signs Date Time Temp Pulse Resp B/P (MAP) Pulse Ox O2 Delivery O2 Flow Rate FiO2 05/26/21 20:20 Nasal Cannula 05/26/21 17:11 68 21 138/85 (102) 98 05/26/21 16:22 96.8 96.8 EKG: EKG: [] Radiology/Procedures: Radiology/Procedures: []PROCEDURE: CT ABD PELV W/ IV CONTRST ONLY Exam: CT of abdomen and pelvis with contrast INDICATION: Right lower quadrant pain TECHNIQUE: Sequential axial images through the abdomen and pelvis obtained following the administration of 75 mL of Isovue-370 IV contrast. Sagittal and coronal reformatted images were reconstructed from the axial data and reviewed. Exposure: One or more of the following in the visualized dose reduction techniques were utilized for this examination: 1. Automated exposure control 2. Adjustment of the MA and/or KV according to patient size 3. Use of iterative of reconstructive technique Comparisons: 05/22/2021 FINDINGS: Heart size is normal. No pericardial effusion. There is moderate bilateral pleural effusions. Patchy bibasilar airspace disease. Liver, spleen, pancreas and adrenals are unremarkable. Gallstones on the gallbladder. No perinephric inflammation or hydronephrosis. Nonobstructing right renal calculi noted. No ureteral calculi. Bladder is partially not well evaluated. Prostate is not enlarged. Diverticulosis at the sigmoid colon. Appendix is not identified. Small bowel is unremarkable. No free intra-abdominal air or fluid. No obstruction. Abdominal aorta has normal course and caliber. Abdominal vasculature is is pa tent. No enlarged intra-abdominal lymph nodes are identified. No suspicious osseous lesions or acute fractures. IMPRESSION: 1. Moderate bilateral pleural effusions with adjacent patchy bibasilar airspace disease may be infectious or inflammatory in etiology. 2. Cholelithiasis. 3. Appendix is not identified. No inflammatory changes right lower quadrant to suggest acute appendicitis. 4. Small amount of intra-abdominal ascites. Electronically signed by: Oswaldo Arevalo MD (05/26/2021 8:29 PM) [facility] DI[facility] and SIGNED BY: OSWALDO AREVALO MD DATE: 05/26/212020 Course & Med Decision Making: Course & Med Decision Making Pertinent Labs and Imaging studies reviewed. (See chart for details) This a 65-year-old male patient presenting to the ED today with right lower quadrant abdominal pain, symptoms began yesterday. Patient was discharged from the hospital 2 days ago for anemia, abdominal pain. Vitals on arrival to the ED temperature 96.8, heart rate 68, respiration 24 on room air, blood pressure 133/83, O2 sats 96% on room air CBC with a normal WBC, hemoglobin 8.5 with hematocrit of 27.7. CMP with nothing really acute. Patient was straight cath, 250 cc of urine collected and sent to lab BNP 7923-history of CHF, furosemide ordered CT of the abdomen and pelvis Moderate bilateral pleural effusions with adjacent patchy bibasilar airspace disease may be infectious or inflammatory in etiology. Cholelithiasis. Appendix is not identified. No inflammatory changes right lower quadrant to suggest acute appendicitis. Small amount of intra-abdominal ascites. Spoke with Dr. Augustin who accepted patient for admission Routine consult placed for general surgery and GI Dragon Disclaimer: Frida Disclaimer: This electronic medical record was generated, in whole or in part, using a voice recognition dictation system. Departure Departure Impression: Primary Impression: Ascites Qualified Codes: R18.8 - Other ascites Additional Impressions: Cholelithiasis Qualified Codes: K80.20 - Calculus of gallbladder without cholecystitis w ithout obstruction CHF (congestive heart failure) Qualified Codes: I50.9 - Heart failure, unspecified Disposition: ADMITTED INPATIENT Condition: STABLE Referrals: BRAVO AUGUSTIN MD (PCP) OLVIN MENDES APRN May 26, 2021 20:25
--- NOTE | 2021-05-26 20:31 | RAD ---
Exam: CT of abdomen and pelvis with contrast INDICATION: Right lower quadrant pain TECHNIQUE: Sequential axial images through the abdomen and pelvis obtained following the administrati on of 75 mL of Isovue-370 IV contrast. Sagittal and coronal reformatted images were reconstructed fro m the axial data and reviewed. Exposure: One or more of the following in the visualized dose reduction techniques were utilized for this examination: 1. Automated exposure control 2. Adjustment of the MA and/or KV according to patient size 3. Use of iterative of reconstructive technique Comparisons: 05/22/2021 FINDINGS: Heart size is normal. No pericardial effusion. There is moderate bilateral pleural effusions. Patchy bibasilar airspace disease. Liver, spleen, pancreas and adrenals are unremarkable. Gallstones on the gallbladder. No perinephric inflammation or hydronephrosis. Nonobstructing right renal calculi noted. No ureteral calculi. Bladder is partially not well evaluated. Prostate is not enlarged. Diverticulosis at the sigmoid colon. Appendix is not identified. Small bowel is unremarkable. No free intra-abdominal air or fluid. No obstruction. Abdominal aorta has normal course and caliber. Abdominal vasculature is is patent. No enlarged intra-abdominal lymph nodes are identified. No suspicious osseous lesions or acute fractures. IMPRESSION: 1. Moderate bilateral pleural effusions with adjacent patchy bibasilar airspace disease may be infec tious or inflammatory in etiology. 2. Cholelithiasis. 3. Appendix is not identified. No inflammatory changes right lower quadrant to suggest acute appendi citis. 4. Small amount of intra-abdominal ascites. Electronically signed by: Oswaldo Carrasco MD (05/26/2021 8:29 PM) [facility]
[2021-05-26] MEDS ORDERED: ACETAMINOPHEN 325 MG TABLET. PO PRN (21:45)
[2021-05-26] MEDS ORDERED: ONDANSETRON PF 4 MG/2 ML VIAL. IVP PRN (21:45)
[2021-05-26] MEDS ORDERED: FUROSEMIDE 40 MG/4 ML VIAL. IVP ONE (22:00)
[2021-05-26 22:10] VITALS: BP 136/76
[2021-05-26] MEDS: fentaNYL PF VIAL 100 MCG/2 ML VIAL IVP PRN (22:27)
[2021-05-26] MEDS ORDERED: cefTRIAXone IV Push 1 GM VIAL. IVP ONE (22:30)
[2021-05-27] MEDS ORDERED: C.DIFF MED SCREEN BY RX. MC ONE (01:15)
[2021-05-27 03:00] VITALS: BP 109/68
[2021-05-27 05:06] LABS: BASO # 0.1 x10^3/uL (0.0-0.2); BASO % 2 % (0-3); EOS # 0.7 x10^3/uL (0.0-0.7); EOS % 11 % (0-3); HEMATOCRIT 28.2 % (39.0-53.0); HEMOGLOBIN 8.7 g/dL (13.0-17.5); LYMPH # 1.2 x10^3/uL (1.0-4.8); LYMPH % 20 % (24-48); MEAN CORPUSCULAR HEMOGLOBIN 25 pg (25-35); MEAN CORPUSCULAR HGB CONC 31 g/dL (31-37); MEAN CORPUSCULAR VOLUME 81 fL (79-100); MONO # 0.5 x10^3/uL (0.0-1.1); MONO % 8 % (0-9); NEUT # 3.6 x10^3/uL (1.8-7.7); NEUT % 59 % (31-73); PLATELET COUNT 407 x10^3/uL (140-400); RED BLOOD COUNT 3.47 x10^6/uL (4.30-5.70); RED CELL DISTRIBUTION WIDTH 19.7 % (11.5-14.5); WHITE BLOOD COUNT 6.2 x10^3/uL (4.0-11.0)
[2021-05-27 05:36] LABS: ALBUMIN 2.3 g/dL (3.4-5.0); ALBUMIN/GLOBULIN RATIO 0.5 (1.0-1.7); CALCIUM 7.8 mg/dL (8.5-10.1); CREATININE 1.1 mg/dL (0.7-1.3); GFR 67.2; POTASSIUM 4.2 mmol/L (3.5-5.1); TOTAL BILIRUBIN 0.4 mg/dL (0.2-1.0); TOTAL PROTEIN 6.9 g/dL (6.4-8.2)
[2021-05-27] MEDS: fentaNYL PF VIAL 100 MCG/2 ML VIAL IVP PRN (06:06)
[2021-05-27 07:00] VITALS: BP 126/72
[2021-05-27] MEDS ORDERED: DOCUSATE SODIUM 100 MG CAPSULE. PO PRN (09:15)
[2021-05-27] MEDS ORDERED: SODIUM PHOSPHATES 19/7GM 133 ML ENEMA. RC PRN (09:15)
[2021-05-27] MEDS ORDERED: IPRATRPIUM/ALBUTEROL 0.5/2.5MG 3 ML NEBU. NEB PRN (09:15)
[2021-05-27] MEDS ORDERED: MAGNESIUM HYDROXIDE 2,400 MG/30 ML ORAL.SUSP. PO PRN (09:15)
[2021-05-27] MEDS ORDERED: BISACODYL 10 MG SUPP.RECT. RC PRN (09:15)
--- NOTE | 2021-05-27 09:37 | NUR ---
Wound/Ostomy Care Wound Type/Assessment: WC consult for right thigh open surgical incision. Pt also has stage III PU to bilateral buttocks. Cleansed, assessed and redressed wounds. Treatment Recommendations/Plan: Right thigh- saline moistened HFB with drawtex, abd and tape. Change every 3 days Buttocks- magen alginate, foam. Change every 2-3 days Education provided: PU prevention and WC POC discussed with pt Offloading surface/device: TQ2H. avoid side laying. float heels, recommend P500 if admitted Recommended Referrals/Tests: na Discharge Recommendations for dressings: see above
[2021-05-27] MEDS: FLUoxetine HCL 20 MG CAPSULE PO SCH (09:55)
[2021-05-27] MEDS: GABAPENTIN 300 MG CAPSULE. PO SCH ×3 (09:55→20:54)
[2021-05-27] MEDS: OLANZapine 5 MG TABLET PO SCH ×2 (09:55→20:54)
[2021-05-27] MEDS: APIXABAN 5 MG TABLET. PO SCH ×2 (09:55→20:54)
[2021-05-27] MEDS: FERROUS SULFATE 325 MG TABLET. PO SCH ×2 (09:55→17:24)
[2021-05-27] MEDS: LACTOBACILLUS RHAMNOSUS GG 1 CAPSULE. PO SCH ×2 (09:55→20:54)
[2021-05-27] MEDS: MULTIVITAMIN with MINERAL TABLET. PO SCH (09:56)
--- NOTE | 2021-05-27 10:06 | PDOC ---
RADHA MORELOS HOUSEKEEPER MANAGER 05/27/21 1006: CARDIO Progress Notes Date and Time Date of Service 05/27/21 Time of Evaluation 1000 Subjective Subjective: No Chest Pain, No shortness of breath, No Palpitations, Other (c/o distended belly, abd pain) Vitals Vitals Vital Signs Date Time Temp Pulse Resp B/P (MAP) Pulse Ox O2 Delivery O2 Flow Rate FiO2 05/27/21 07:00 97.5 61 18 126/72 (90) 100 97.5 05/27/21 06:41 Nasal Cannula 3.0 Weight Weight [ ] Input and Output Intake and Output Intake and Output 05/27/21 07:00 # Voids 3 Laboratory Labs Laboratory Tests Test 05/26/21 17:20 05/26/21 20:20 05/27/21 04:00 05/27/21 07:39 White Blood Count 7.0 x10^3/uL (4.0-11.0) 6.2 x10^3/uL (4.0-11.0) Red Blood Count 3.44 x10^6/uL (4.30-5.70) 3.47 x10^6/uL (4.30-5.70) Hemoglobin 8.5 g/dL (13.0-17.5) 8.7 g/dL (13.0-17.5) Hematocrit 27.7 % (39.0-53.0) 28.2 % (39.0-53.0) Mean Corpuscular Volume 81 fL (79-100) 81 fL (79-100) Mean Corpuscular Hemoglobin 25 pg (25-35) 25 pg (25-35) Mean Corpuscular Hemoglobin Concent 31 g/dL (31-37) 31 g/dL (31-37) Red Cell Distribution Width 19.8 % (11.5-14.5) 19.7 % (11.5-14.5) Platelet Count 423 x10^3/uL (140-400) 407 x10^3/uL (140-400) Neutrophils (%) (Auto) 64 % (31-73) 59 % (31-73) Lymphocytes (%) (Auto) 18 % (24-48) 20 % (24-48) Monocytes (%) (Auto) 8 % (0-9) 8 % (0-9) Eosinophils (%) (Auto) 9 % (0-3) 11 % (0-3) Basophils (%) (Auto) 1 % (0-3) 2 % (0-3) Neutrophils # (Auto) 4.4 x10^3/uL (1.8-7.7) 3.6 x10^3/uL (1.8-7.7) Lymphocytes # (Auto) 1.2 x10^3/uL (1.0-4.8) 1.2 x10^3/uL (1.0-4.8) Monocytes # (Auto) 0.6 x10^3/uL (0.0-1.1) 0.5 x10^3/uL (0.0-1.1) Eosinophils # (Auto) 0.6 x10^3/uL (0.0-0.7) 0.7 x10^3/uL (0.0-0.7) Basophils # (Auto) 0.1 x10^3/uL (0.0-0.2) 0.1 x10^3/uL (0.0-0.2) Sodium Level 137 mmol/L (136-145) 138 mmol/L (136-145) Potassium Level 4.0 mmol/L (3.5-5.1) 4.2 mmol/L (3.5-5.1) Chloride Level 102 mmol/L (98-107) 103 mmol/L (98-107) Carbon Dioxide Level 28 mmol/L (21-32) 29 mmol/L (21-32) Anion Gap 7 (6-14) 6 (6-14) Blood Urea Nitrogen 15 mg/dL (8-26) 14 mg/dL (8-26) Creatinine 1.2 mg/dL (0.7-1.3) 1.1 mg/dL (0.7-1.3) Estimated GFR (Cockcroft-Gault) 60.8 67.2 BUN/Creatinine Ratio 13 (6-20) 13 (6-20) Glucose Level 109 mg/dL (70-99) 81 mg/dL (70-99) Lactic Acid Level 1.3 mmol/L (0.4-2.0) Calcium Level 8.0 mg/dL (8.5-10.1) 7.8 mg/dL (8.5-10.1) Magnesium Level 1.7 mg/dL (1.8-2.4) Total Bilirubin 0.5 mg/dL (0.2-1.0) 0.4 mg/dL (0.2-1.0) Aspartate Amino Transf (AST/SGOT) 19 U/L (15-37) 18 U/L (15-37) Alanine Aminotransferase (ALT/SGPT) 9 U/L (16-63) 9 U/L (16-63) Alkaline Phosphatase 129 U/L (46-116) 133 U/L (46-116) Troponin I High Sensitivity 8 ng/L (4-75) 9 ng/L (4-75) 12 ng/L (4-75) RY-Ben-T-Type Natriuretic Peptide 7923 pg/mL (0-124) Total Protein 7.3 g/dL (6.4-8.2) 6.9 g/dL (6.4-8.2) Albumin 2.4 g/dL (3.4-5.0) 2.3 g/dL (3.4-5.0) Albumin/Globulin Ratio 0.5 (1.0-1.7) 0.5 (1.0-1.7) Lipase 43 U/L (73-393) Procalcitonin < 0.10 ng/mL (0.00-0.10) Thyroid Stimulating Hormone (TSH) 4.771 uIU/mL (0.358-3.74) Glucose (Fingerstick) 81 mg/dL (70-99) Physical Exam HEENT: Neck Supple W Full Motion Chest: Symmetric LUNGS: Other (diminished bases) Heart: RRR (SR) Abdomen: Other (distended ) Extremities: Other (trace pedal edema. right thigh wound with drsg intact ) Neurology: alert, oriented, follow commands Assessment Assessment This is a 65 yo male who was re-admitted to the hospital secondary to right lower quadrant abdominal pain with swelling. Is well known to our service and was seen earlier this week for abdominal pain and swelling. Was treated with IV Lasix. Also noted to be anemic and was transfused. Patient was discharge back to nursing facility following diuresis. Patient reports abdominal pain returned. Belly feels tight, distended. Makes it somewhat difficult to breathe. Denies any chest pain, palpitations, dizziness, diaphoresis, or nausea/vomiting. Assessment 1. Abdominal pain. CT with cholelithiasis, ascites 2. Acute on chronic diastolic/systolic CHF 3. ICM: LVEF 30-35% per echo 04/12 4. CAD; past emergent CABG x2 08/13/2016 due to recurrent ISR, clinically stable. on Plavix 5. PAFIB/flutter; s/p CV. presently SR. on amiodarone for rhythm maintenance and Eliquis for stroke prophylaxis 6. Hypertension; controlled 7. Hyperlipidemia; statin 8. Diabetes, II 9. Severe LE PAD; s/p previous left fem-pop bypass and more recent right femoral to above knee popliteal bypass 12/2020. Had persistent seroma of the right thigh and underwent drainage sartorious muscle flap recently and had wound vac. Wound remains open 10. H/o substance abuse, methamphetamine use 11. Coccyx wound 12. Anemia; s/p transfusion; hgb stable Recommendations HF optimization Mild diuresis Secondary prevention Add low-dose Coreg and losartan Continue Amiodarone for rhythm maintenance Supportive care Justicifation of Admission Dx: Justifications for Admission: Justification of Admission Dx: No GA: Acute NSTEMI JEFFREY PENA MD 05/27/21 193: CARDIO Progress Notes Plan Plan The patient was seen and interviewed as well as examined at the bedside. The chart was reviewed. The case was discussed. Agree with the plan of care. RADHA MORELOS APRN May 27, 2021 10:06 JEFFREY PENA MD May 27, 2021 19:30
--- NOTE | 2021-05-27 10:26 | PDOC2 ---
CONSULT Date of Consult Date of Consult DATE: 05/27/21 TIME: 10:22 Reason for Consult Reason for Consult: Right lower quadrant abdominal pain and cholelithiasis Referring Physician Referring Physician: Charli Identification/Chief Complaint Chief Complaint Right lower quadrant abdominal pain Source Source: Chart review, Patient History of Present Illness Reason for Visit: 65-year-old male with multiple medical problems including congestive heart failure recently hospitalized for exacerbation of his heart failure and anemia at that time was discharged a couple days ago returns now with similar complaint currently resting comfortably in bed does not appear to be any distress he does describe abdominal pain in the right lower quadrant and occasional nausea not associated with eating. Past Medical History Cardiovascular: AFIB, CAD, CHF, HTN, Hyperlipidemia, Other Pulmonary: No pertinent hx, COPD CENTRAL NERVOUS SYSTEM: CVA, Periperal neuropathy GI: Peptic Ulcer disease, Other Heme/Onc: Other Hepatobiliary: No pertinent hx Psych: Anxiety Musculoskeletal: Osteoarthritis Rheumatologic: No pertinent hx Infectious disease: No pertinent hx Renal/: Other Endocrine: Diabetes Past Surgical History Past Surgical History: CABG Family History Family History: Cancer Social History ALCOHOL: other Drugs: Crystal meth Lives: [facility] Current Problem List Problem List Problems Medical Problems: (1) Ascites Status: Acute (2) CHF (congestive heart failure) Status: Acute (3) Cholelithiasis Status: Acute Current Medications Current Medications Current Medications Morphine Sulfate (Morphine Sulfate) 4 mg PRN Q15MIN PRN IV/SQ PAIN GREATER THAN 3/10 Last administered on 05/26/21at 20:20; Start 05/26/21 at 16:30; Stop 05/27/21 at 16:29 Morphine Sulfate (Morphine Sulfate) 4 mg 1X ONCE IVP Last administered on 05/26/21at 19:23; Start 05/26/21 at 19:15; Stop 05/26/21 at 19:16; Status DC Iohexol (Omnipaque 300 Mg/ml) 75 ml 1X ONCE IV Last administered on 05/26/21at 19:59; Start 05/26/21 at 19:45; Stop 05/26/21 at 19:48; Status DC Info (CONTRAST GIVEN -- Rx MONITORING) 1 each PRN DAILY PRN MC SEE COMMENTS; Start 05/26/21 at 20:00; Stop 05/28/21 at 19:59 Ondansetron HCl (Zofran) 4 mg PRN Q8HRS PRN IVP NAUSEA/VOMITING 1ST CHOICE; Start 05/26/21 at 21:45; Stop 05/27/21 at 21:44 Fentanyl Citrate (Fentanyl 2ml Vial) 50 mcg PRN Q1HR PRN IVP SEVERE PAIN 7-10 Last administered on 05/27/21at 06:06; Start 05/26/21 at 21:45; Stop 05/27/21 at 21:44 Acetaminophen (Tylenol) 650 mg PRN Q4HRS PRN PO FEVER > 100.3'F; Start 05/26/21 at 21:45; Stop 05/27/21 at 21:44 Furosemide (Lasix) 40 mg 1X ONCE IVP Last administered on 05/26/21at 22:26; Start 05/26/21 at 22:00; Stop 05/26/21 at 22:01; Status DC Ceftriaxone Sodium (Rocephin) 1 gm 1X ONCE IVP Last administered on 05/26/21at 22:26; Start 05/26/21 at 22:30; Stop 05/26/21 at 22:31; Status DC Pharmacy Consult (C.diff Med Screen By Rx) 1 each 1X ONCE MC ; Start 05/27/21 at 01:15; Stop 05/27/21 at 01:16; Status DC Furosemide (Lasix) 40 mg DAILY IVP ; Start 05/28/21 at 09:30 Amiodarone HCl (Cordarone) 200 mg DAILY PO ; Start 05/28/21 at 09:00 Apixaban (Eliquis) 5 mg BID PO Last administered on 05/27/21at 09:55; Start 05/27/21 at 09:15 Atorvastatin Calcium (Lipitor) 40 mg QHS PO ; Start 05/27/21 at 21:00 Bisacodyl (Dulcolax Supp) 10 mg PRN DAILY PRN RC CONSTIPATION; Start 05/27/21 at 09:15 Clopidogrel Bisulfate (Plavix) 75 mg DAILYWSUP PO ; Start 05/27/21 at 17:00 Docusate Sodium (Colace) 100 mg PRN DAILY PRN PO HARD STOOLS; Start 05/27/21 at 09:15 Ferrous Sulfate (Feosol) 325 mg BIDWMEALS PO Last administered on 05/27/21at 09:55; Start 05/27/21 at 09:15 Fluoxetine HCl (PROzac) 20 mg DAILY PO Last administered on 05/27/21at 09:55; Start 05/27/21 at 09:15 Acetaminophen/ Hydrocodone Bitart (Lortab 7.5/325) 1 tab QIDPRN PRN PO MODERATE TO SEVERE PAIN; Start 05/27/21 at 09:15 Albuterol/ Ipratropium (Duoneb) 3 ml PRN Q4HRS PRN NEB SHORTNESS OF BREATH; Start 05/27/21 at 09:15 Magnesium Hydroxide (Milk Of Magnesia) 2,400 mg PRN DAILY PRN PO CONSTIPATION; Start 05/27/21 at 09:15 Multivitamins (Thera M Plus) 1 tab DAILY PO Last administered on 05/27/21at 09:56; Start 05/27/21 at 09:15 Sodium Monofluorophosphate (Fleet Adult) 133 ml PRN DAILY PRN RC CONSTIPATION; Start 05/27/21 at 09:15 Olanzapine (ZyPREXA) 5 mg BID PO Last administered on 05/27/21at 09:55; Start 05/27/21 at 09:15 Tamsulosin HCl (Flomax) 0.4 mg QHS PO ; Start 05/27/21 at 21:00 Gabapentin (Neurontin) 300 mg TID PO Last administered on 05/27/21at 09:55; Start 05/27/21 at 09:15 Lactobacillus Rhamnosus (Culturelle) 1 cap BID PO Last administered on 05/27/21at 09:55; Start 05/27/21 at 09:15 Active Scripts Active Furosemide 20 Mg Tablet 20 Mg PO DAILY Hydrocodone-Acetamin 7.5-325 (Hydrocodone/Acetaminophen) 1 Each Tablet 1 Each PO QIDPRN Colace (Docusate Sodium) 100 Mg Capsule 100 Mg PO PRN DAILY PRN Flomax (Tamsulosin Hcl) 0.4 Mg Cap.er.24h 0.4 Mg PO QHS Thera-M Tablet (Multivits,Ca,Minerals/Iron/Fa) 1 Each Tablet 1 Tab PO DAILY Atorvastatin Calcium 40 Mg Tablet 40 Mg PO QHS 30 Days Reported Fleet Enema (Na Phos,M-B/Na Phos,Di-Ba) 133 Ml Enema 1 Each RC PRN DAILY PRN Ferrous Sulfate 325 Mg Tablet 1 Tab PO BID Bisacodyl 10 Mg Supp.rect 10 Mg RC PRN DAILY PRN Daptomycin 350 Mg Vial 430 Mg IV DAILY Milk Of Magnesia (Magnesium Hydroxide) 400 Mg/5 Ml Oral.susp 30 Ml PO PRN DAILY PRN Seroquel (Quetiapine Fumarate) 100 Mg Tablet 100 Mg PO HS Olanzapine 5 Mg Tablet 5 Mg PO BID Probiotic (Lactobacillus Acidophilus) 1 Each Capsule 1 Each PO BID Duoneb 0.5-3(2.5) Mg/3 Ml (Albuterol/Ipratropium) 3 Ml Ampul.neb 3 Ml NEB PRN Q4HRS PRN Haloperidol Lactate 2 Mg/1 Ml Oral.conc 1 Mg PO Q6HRS PRN Gabapentin 600 Mg Tablet 300 Mg PO TID Fluoxetine Hcl 20 Mg Capsule 20 Mg PO DAILY Clopidogrel (Clopidogrel Bisulfate) 75 Mg Tablet 75 Mg PO DAILYWSUP Amiodarone Hcl 200 Mg Tablet 200 Mg PO DAILY Eliquis (Apixaban) 5 Mg Tablet 5 Mg PO BID Allergies Allergies: Coded Allergies: No Known Drug Allergies (Unverified , 04/26/21) ROS General: No: Chills, Night Sweats, Fatigue, Malaise, Appetite, Other PSYCHOLOGICAL ROS: No: Anxiety, Behavioral Disorder, Concentration difficultie, Decreased libido, Depression, Disorientation, Hallucinations, Hostility, Irritablity, Memory difficulties, Mood Swings, Obsessive thoughts, Physical abuse, Sexual abuse, Sleep disturbances, Suicidal ideation, Other Eyes: No Blurry vision, No Decreased vision, No Double vision, No Dry eyes, No Excessive tearing, No Eye Pain, No Itchy Eyes, No Loss of vision, No Photophobia, No Scotomata, No Uses contacts, No Uses glasses, No Other HEENT: No: Heacaches, Visual Changes, Hearing change, Nasal congestion, Nasal discharge, Oral lesions, Sinus pain, Sore Throat, Epistaxis, Sneezing, Snoring, Tinnitus, Vertigo, Vocal changes, Other ALLERGY AND IMMUNOLOGY: No: Hives, Insect Bite Sensitivity, Itchy/Watery Eyes, Nasal Congestion, Post Nasal Drip, Seasonal Allergies, Other Hematological and Lymphatic: No: Bleeding Problems, Blood Clots, Blood Transfusions, Brusing, Night Sweats, Pallor, Swollen Lymph Nodes, Other ENDOCRINE: No: Breast Changes, Galactorrhea, Hair Pattern Changes, Hot Flashes, Malaise/lethargy, Mood Swings, Palpitations, Polydipsia/polyuria, Skin Changes, Temperature Intolerance, Unexpected Weight Changes, Other Respiratory: No: Cough, Hemoptysis, Orthopnea, Pleuritic Pain, Shortness of breath, SOB with excertion, Sputum Changes, Stridor, Tachypnea, Wheezing, Other Cardiovascular: No Chest Pain, No Palpitations, No Orthopnea, No Paroxysmal Noc. Dyspnea, No Edema, No Lt Headedness, No Other Gastrointestinal: Yes Nausea, Yes Abdominal Pain Genitourinary: No Dysuria, No Frequency, No Incontinence, No Hematuria, No Retention, No Discharge, No Urgency, No Pain, No Flank Pain, No Other, No , No , No , No , No , No , No Musculoskeletal: No Gait Disturbance, No Joint Pain, No Joint Stiffness, No Joint Swelling, No Muscle Pain, No Muscular Weakness, No Pain In:, No Swelling In:, No Other Neurological: No Behavorial Changes, No Bowel/Bladder ControlChng, No Confusion, No Dizziness, No Gait Disturbance, No Headaches, No Impaired Coord/balance, No Memory Loss, No Numbness/Tingling, No Seizures, No Speech Problems, No Tremors, No Visual Changes, No Weakness, No Other Skin: No Dry Skin, No Eczema, No Hair Changes, No Lumps, No Mole Changes, No Mottling, No Nail Changes, No Pruritus, No Rash, No Skin Lesion Changes, No Other, No Acne Physical Exam General: Alert, Oriented X3, Cooperative, No acute distress HEENT: Atraumatic, PERRLA, EOMI Lungs: Clear to auscultation, Normal air movement Heart: Regular rate, No murmurs Abdomen: Normal bowel sounds, Soft, Other (Tender to palpation right lower quadrant no peritoneal signs) Extremities: No edema Skin: No significant lesion Neuro: Normal speech Psych/Mental Status: Mental status NL Vitals VITALS Vital Signs Date Time Temp Pulse Resp B/P (MAP) Pulse Ox O2 Delivery O2 Flow Rate FiO2 05/27/21 08:00 Nasal Cannula 3.0 05/27/21 07:00 97.5 61 18 126/72 (90) 100 97.5 Labs Labs Laboratory Tests Test 05/26/21 17:20 05/26/21 20:20 05/27/21 04:00 05/27/21 07:39 White Blood Count 7.0 x10^3/uL (4.0-11.0) 6.2 x10^3/uL (4.0-11.0) Red Blood Count 3.44 x10^6/uL (4.30-5.70) 3.47 x10^6/uL (4.30-5.70) Hemoglobin 8.5 g/dL (13.0-17.5) 8.7 g/dL (13.0-17.5) Hematocrit 27.7 % (39.0-53.0) 28.2 % (39.0-53.0) Mean Corpuscular Volume 81 fL (79-100) 81 fL (79-100) Mean Corpuscular Hemoglobin 25 pg (25-35) 25 pg (25-35) Mean Corpuscular Hemoglobin Concent 31 g/dL (31-37) 31 g/dL (31-37) Red Cell Distribution Width 19.8 % (11.5-14.5) 19.7 % (11.5-14.5) Platelet Count 423 x10^3/uL (140-400) 407 x10^3/uL (140-400) Neutrophils (%) (Auto) 64 % (31-73) 59 % (31-73) Lymphocytes (%) (Auto) 18 % (24-48) 20 % (24-48) Monocytes (%) (Auto) 8 % (0-9) 8 % (0-9) Eosinophils (%) (Auto) 9 % (0-3) 11 % (0-3) Basophils (%) (Auto) 1 % (0-3) 2 % (0-3) Neutrophils # (Auto) 4.4 x10^3/uL (1.8-7.7) 3.6 x10^3/uL (1.8-7.7) Lymphocytes # (Auto) 1.2 x10^3/uL (1.0-4.8) 1.2 x10^3/uL (1.0-4.8) Monocytes # (Auto) 0.6 x10^3/uL (0.0-1.1) 0.5 x10^3/uL (0.0-1.1) Eosinophils # (Auto) 0.6 x10^3/uL (0.0-0.7) 0.7 x10^3/uL (0.0-0.7) Basophils # (Auto) 0.1 x10^3/uL (0.0-0.2) 0.1 x10^3/uL (0.0-0.2) Sodium Level 137 mmol/L (136-145) 138 mmol/L (136-145) Potassium Level 4.0 mmol/L (3.5-5.1) 4.2 mmol/L (3.5-5.1) Chloride Level 102 mmol/L (98-107) 103 mmol/L (98-107) Carbon Dioxide Level 28 mmol/L (21-32) 29 mmol/L (21-32) Anion Gap 7 (6-14) 6 (6-14) Blood Urea Nitrogen 15 mg/dL (8-26) 14 mg/dL (8-26) Creatinine 1.2 mg/dL (0.7-1.3) 1.1 mg/dL (0.7-1.3) Estimated GFR (Cockcroft-Gault) 60.8 67.2 BUN/Creatinine Ratio 13 (6-20) 13 (6-20) Glucose Level 109 mg/dL (70-99) 81 mg/dL (70-99) Lactic Acid Level 1.3 mmol/L (0.4-2.0) Calcium Level 8.0 mg/dL (8.5-10.1) 7.8 mg/dL (8.5-10.1) Magnesium Level 1.7 mg/dL (1.8-2.4) Total Bilirubin 0.5 mg/dL (0.2-1.0) 0.4 mg/dL (0.2-1.0) Aspartate Amino Transf (AST/SGOT) 19 U/L (15-37) 18 U/L (15-37) Alanine Aminotransferase (ALT/SGPT) 9 U/L (16-63) 9 U/L (16-63) Alkaline Phosphatase 129 U/L (46-116) 133 U/L (46-116) Troponin I High Sensitivity 8 ng/L (4-75) 9 ng/L (4-75) 12 ng/L (4-75) LY-Zee-F-Type Natriuretic Peptide 7923 pg/mL (0-124) Total Protein 7.3 g/dL (6.4-8.2) 6.9 g/dL (6.4-8.2) Albumin 2.4 g/dL (3.4-5.0) 2.3 g/dL (3.4-5.0) Albumin/Globulin Ratio 0.5 (1.0-1.7) 0.5 (1.0-1.7) Lipase 43 U/L (73-393) Procalcitonin < 0.10 ng/mL (0.00-0.10) Thyroid Stimulating Hormone (TSH) 4.771 uIU/mL (0.358-3.74) Glucose (Fingerstick) 81 mg/dL (70-99) Laboratory Tests Test 05/26/21 17:20 05/26/21 20:20 05/27/21 04:00 05/27/21 07:39 White Blood Count 7.0 x10^3/uL (4.0-11.0) 6.2 x10^3/uL (4.0-11.0) Red Blood Count 3.44 x10^6/uL (4.30-5.70) 3.47 x10^6/uL (4.30-5.70) Hemoglobin 8.5 g/dL (13.0-17.5) 8.7 g/dL (13.0-17.5) Hematocrit 27.7 % (39.0-53.0) 28.2 % (39.0-53.0) Mean Corpuscular Volume 81 fL (79-100) 81 fL (79-100) Mean Corpuscular Hemoglobin 25 pg (25-35) 25 pg (25-35) Mean Corpuscular Hemoglobin Concent 31 g/dL (31-37) 31 g/dL (31-37) Red Cell Distribution Width 19.8 % (11.5-14.5) 19.7 % (11.5-14.5) Platelet Count 423 x10^3/uL (140-400) 407 x10^3/uL (140-400) Neutrophils (%) (Auto) 64 % (31-73) 59 % (31-73) Lymphocytes (%) (Auto) 18 % (24-48) 20 % (24-48) Monocytes (%) (Auto) 8 % (0-9) 8 % (0-9) Eosinophils (%) (Auto) 9 % (0-3) 11 % (0-3) Basophils (%) (Auto) 1 % (0-3) 2 % (0-3) Neutrophils # (Auto) 4.4 x10^3/uL (1.8-7.7) 3.6 x10^3/uL (1.8-7.7) Lymphocytes # (Auto) 1.2 x10^3/uL (1.0-4.8) 1.2 x10^3/uL (1.0-4.8) Monocytes # (Auto) 0.6 x10^3/uL (0.0-1.1) 0.5 x10^3/uL (0.0-1.1) Eosinophils # (Auto) 0.6 x10^3/uL (0.0-0.7) 0.7 x10^3/uL (0.0-0.7) Basophils # (Auto) 0.1 x10^3/uL (0.0-0.2) 0.1 x10^3/uL (0.0-0.2) Sodium Level 137 mmol/L (136-145) 138 mmol/L (136-145) Potassium Level 4.0 mmol/L (3.5-5.1) 4.2 mmol/L (3.5-5.1) Chloride Level 102 mmol/L (98-107) 103 mmol/L (98-107) Carbon Dioxide Level 28 mmol/L (21-32) 29 mmol/L (21-32) Anion Gap 7 (6-14) 6 (6-14) Blood Urea Nitrogen 15 mg/dL (8-26) 14 mg/dL (8-26) Creatinine 1.2 mg/dL (0.7-1.3) 1.1 mg/dL (0.7-1.3) Estimated GFR (Cockcroft-Gault) 60.8 67.2 BUN/Creatinine Ratio 13 (6-20) 13 (6-20) Glucose Level 109 mg/dL (70-99) 81 mg/dL (70-99) Lactic Acid Level 1.3 mmol/L (0.4-2.0) Calcium Level 8.0 mg/dL (8.5-10.1) 7.8 mg/dL (8.5-10.1) Magnesium Level 1.7 mg/dL (1.8-2.4) Total Bilirubin 0.5 mg/dL (0.2-1.0) 0.4 mg/dL (0.2-1.0) Aspartate Amino Transf (AST/SGOT) 19 U/L (15-37) 18 U/L (15-37) Alanine Aminotransferase (ALT/SGPT) 9 U/L (16-63) 9 U/L (16-63) Alkaline Phosphatase 129 U/L (46-116) 133 U/L (46-116) Troponin I High Sensitivity 8 ng/L (4-75) 9 ng/L (4-75) 12 ng/L (4-75) UE-Yvf-D-Type Natriuretic Peptide 7923 pg/mL (0-124) Total Protein 7.3 g/dL (6.4-8.2) 6.9 g/dL (6.4-8.2) Albumin 2.4 g/dL (3.4-5.0) 2.3 g/dL (3.4-5.0) Albumin/Globulin Ratio 0.5 (1.0-1.7) 0.5 (1.0-1.7) Lipase 43 U/L (73-393) Procalcitonin < 0.10 ng/mL (0.00-0.10) Thyroid Stimulating Hormone (TSH) 4.771 uIU/mL (0.358-3.74) Glucose (Fingerstick) 81 mg/dL (70-99) Images Images CT scan does show some ascites as well as gallstones no pericholecystic inflammation fat stranding no pericholecystic fluid Assessment/Plan Assessment/Plan Abdominal pain with ascites. CT scan shows cholelithiasis but no evidence of acute inflammation. In light of patient's comorbidities poor surgical candidate unlikely that the gallbladder is the source of his pain. No surgical plans at this time BRAD BOLANOS MD May 27, 2021 10:26
[2021-05-27 11:00] VITALS: BP 115/65
--- NOTE | 2021-05-27 12:16 | PDOC2 ---
GI CONSULT Date of Service: DATE: 05/27/21 TIME: 11:57 HPI: HPI: 65 y/o male who Dr. Burnette has seen in the past, most recently earlier this week - GI asked to evaluate for anemia then. Recommendation for treatment of CHF and outpt 'scopes. He also had some right-sided abdominal pain then that quickly resolved. Back again w/ RLQ discomfort that is positional. Some nausea, no vomiting. Stooling normally. No bleeding. CT, as in the past, noted some ascites (small amount) which is why we are asked to see. BNP 7923. From recent GI consult: H/o FRANKO - no previous EGD or colonoscopy. Per past encounter, remote "ulcer" history possibly diagnosed on imaging and treated w/ antibiotics. When we saw in 05/2020, reported lower mid abdomen pain that spread into mid chest. HIDA negative for cholecystitis - symptoms thought possibly related to CHF. Some abnormal LFTs in past. Hepatic steatosis on past imaging and abd doppler in 2020 noted normal directed portal venous flow, mild pulsatility possibly related to right heart failure, and right pleural effusion - again thought related to CHF, suggestion for salt restriction. No pancreas history. Diverticulosis and cholelithiasis on imaging. B12 normal 12/2020. On Eliquis and Plavix. PMH: PMH: CAD, HTN, HLD, ME, ICM, A Fib, PAD, DVT, DM, UTI, nephrolithiasis, sacral ulcer CABG, stents, LLE thrombectomy and fasciotomy, right knee surgery, bilateral rotator cuff repair, RLE bypass and seroma drainage, toe amputation FH: Family History: Cancer (prostate - father) Social History: Smoke: Quit ALCOHOL: other (heavy in past - quit) Drugs: Crystal meth (in past) ROS: GEN: Denies fevers, chills, sweats HEENT: Denies blurred vision, sore throat CV: Denies chest pain RESP: Denies shortness of air, cough GI: Per HPI : Denies hematuria, dysuria ENDO: Denies weight changes NEURO: Denies confusion, dizziness MSK: Denies weakness, joint pain/swelling SKIN: Denies jaundice, pruritus Vitals: Vitals: Vital Signs Date Time Temp Pulse Resp B/P (MAP) Pulse Ox O2 Delivery O2 Flow Rate FiO2 05/27/21 08:00 Nasal Cannula 3.0 05/27/21 07:00 97.5 61 18 126/72 (90) 100 97.5 Labs: Labs: Laboratory Tests Test 05/26/21 17:20 05/26/21 20:20 05/27/21 04:00 05/27/21 07:39 White Blood Count 7.0 x10^3/uL (4.0-11.0) 6.2 x10^3/uL (4.0-11.0) Red Blood Count 3.44 x10^6/uL (4.30-5.70) 3.47 x10^6/uL (4.30-5.70) Hemoglobin 8.5 g/dL (13.0-17.5) 8.7 g/dL (13.0-17.5) Hematocrit 27.7 % (39.0-53.0) 28.2 % (39.0-53.0) Mean Corpuscular Volume 81 fL (79-100) 81 fL (79-100) Mean Corpuscular Hemoglobin 25 pg (25-35) 25 pg (25-35) Mean Corpuscular Hemoglobin Concent 31 g/dL (31-37) 31 g/dL (31-37) Red Cell Distribution Width 19.8 % (11.5-14.5) 19.7 % (11.5-14.5) Platelet Count 423 x10^3/uL (140-400) 407 x10^3/uL (140-400) Neutrophils (%) (Auto) 64 % (31-73) 59 % (31-73) Lymphocytes (%) (Auto) 18 % (24-48) 20 % (24-48) Monocytes (%) (Auto) 8 % (0-9) 8 % (0-9) Eosinophils (%) (Auto) 9 % (0-3) 11 % (0-3) Basophils (%) (Auto) 1 % (0-3) 2 % (0-3) Neutrophils # (Auto) 4.4 x10^3/uL (1.8-7.7) 3.6 x10^3/uL (1.8-7.7) Lymphocytes # (Auto) 1.2 x10^3/uL (1.0-4.8) 1.2 x10^3/uL (1.0-4.8) Monocytes # (Auto) 0.6 x10^3/uL (0.0-1.1) 0.5 x10^3/uL (0.0-1.1) Eosinophils # (Auto) 0.6 x10^3/uL (0.0-0.7) 0.7 x10^3/uL (0.0-0.7) Basophils # (Auto) 0.1 x10^3/uL (0.0-0.2) 0.1 x10^3/uL (0.0-0.2) Sodium Level 137 mmol/L (136-145) 138 mmol/L (136-145) Potassium Level 4.0 mmol/L (3.5-5.1) 4.2 mmol/L (3.5-5.1) Chloride Level 102 mmol/L (98-107) 103 mmol/L (98-107) Carbon Dioxide Level 28 mmol/L (21-32) 29 mmol/L (21-32) Anion Gap 7 (6-14) 6 (6-14) Blood Urea Nitrogen 15 mg/dL (8-26) 14 mg/dL (8-26) Creatinine 1.2 mg/dL (0.7-1.3) 1.1 mg/dL (0.7-1.3) Estimated GFR (Cockcroft-Gault) 60.8 67.2 BUN/Creatinine Ratio 13 (6-20) 13 (6-20) Glucose Level 109 mg/dL (70-99) 81 mg/dL (70-99) Lactic Acid Level 1.3 mmol/L (0.4-2.0) Calcium Level 8.0 mg/dL (8.5-10.1) 7.8 mg/dL (8.5-10.1) Magnesium Level 1.7 mg/dL (1.8-2.4) Total Bilirubin 0.5 mg/dL (0.2-1.0) 0.4 mg/dL (0.2-1.0) Aspartate Amino Transf (AST/SGOT) 19 U/L (15-37) 18 U/L (15-37) Alanine Aminotransferase (ALT/SGPT) 9 U/L (16-63) 9 U/L (16-63) Alkaline Phosphatase 129 U/L (46-116) 133 U/L (46-116) Troponin I High Sensitivity 8 ng/L (4-75) 9 ng/L (4-75) 12 ng/L (4-75) [id number]-Ljs-L-Type Natriuretic Peptide 7923 pg/mL (0-124) Total Protein 7.3 g/dL (6.4-8.2) 6.9 g/dL (6.4-8.2) Albumin 2.4 g/dL (3.4-5.0) 2.3 g/dL (3.4-5.0) Albumin/Globulin Ratio 0.5 (1.0-1.7) 0.5 (1.0-1.7) Lipase 43 U/L (73-393) Procalcitonin < 0.10 ng/mL (0.00-0.10) Thyroid Stimulating Hormone (TSH) 4.771 uIU/mL (0.358-3.74) Glucose (Fingerstick) 81 mg/dL (70-99) Test 05/27/21 11:36 Glucose (Fingerstick) 85 mg/dL (70-99) Allergies: Coded Allergies: No Known Drug Allergies (Unverified , 04/26/21) Medications: Current Medications Medications (Trade) Dose Ordered Sig/Lizzeth Route PRN Reason Start Time Stop Time Status Last Admin Dose Admin Morphine Sulfate (Morphine Sulfate) 4 mg PRN Q15MIN PRN IV/SQ PAIN GREATER THAN 3/10 05/26/21 16:30 05/27/21 16:29 05/26/21 20:20 Morphine Sulfate (Morphine Sulfate) 4 mg 1X ONCE IVP 05/26/21 19:15 05/26/21 19:16 DC 05/26/21 19:23 Iohexol (Omnipaque 300 Mg/ml) 75 ml 1X ONCE IV 05/26/21 19:45 05/26/21 19:48 DC 05/26/21 19:59 Fentanyl Citrate (Fentanyl 2ml Vial) 50 mcg PRN Q1HR PRN IVP SEVERE PAIN 7-10 05/26/21 21:45 05/27/21 21:44 05/27/21 06:06 Furosemide (Lasix) 40 mg 1X ONCE IVP 05/26/21 22:00 05/26/21 22:01 DC 05/26/21 22:26 Ceftriaxone Sodium (Rocephin) 1 gm 1X ONCE IVP 05/26/21 22:30 05/26/21 22:31 DC 05/26/21 22:26 Apixaban (Eliquis) 5 mg BID PO 05/27/21 09:15 05/27/21 09:55 Ferrous Sulfate (Feosol) 325 mg BIDWMEALS PO 05/27/21 09:15 05/27/21 09:55 Fluoxetine HCl (PROzac) 20 mg DAILY PO 05/27/21 09:15 05/27/21 09:55 Multivitamins (Thera M Plus) 1 tab DAILY PO 05/27/21 09:15 05/27/21 09:56 Olanzapine (ZyPREXA) 5 mg BID PO 05/27/21 09:15 05/27/21 09:55 Gabapentin (Neurontin) 300 mg TID PO 05/27/21 09:15 05/27/21 09:55 Lactobacillus Rhamnosus (Culturelle) 1 cap BID PO 05/27/21 09:15 05/27/21 09:55 Imaging: Imaging: CT A/P IMPRESSION: 1. Moderate bilateral pleural effusions with adjacent patchy bibasilar airspace disease may be infectious or inflammatory in etiology. 2. Cholelithiasis. 3. Appendix is not identified. No inflammatory changes right lower quadrant to suggest acute appendicitis. 4. Small amount of intra-abdominal ascites. PE: GEN: NAD, wound care present HEENT: Atraumatic, PERRL LUNGS: diminished NC 3L HEART: RRR ABD: BS+, anasarca, RLQ discomfort EXTREMITY: No edema SKIN: dressing right thigh NEURO/PSYCH: A & O 3 A/P: A/P: RLQ pain - recurrent CHF, ICM Abnormal CT (like earlier this week) - pleural effusions, mild ascites H/o FRANKO - Hgb better/stable compared to earlier this week CRC screen - none Diverticulosis - per CT Cholelithiasis - per CT, poor surgical candidate Hepatic steatosis H/o A Fib, CAD, severe PAD - on Plavix, Eliquis Coccyx wound Debility, h/o substance abuse -- Similar to past presentations, he's not a great historian. Would treat CHF and observe. Could consider paracentesis but only small/stable amount per CT. Outpt scopes for FRANKO. Continue iron, add acid-enrollment nurse like last time. LADY MANNING May 27, 2021 12:16
[2021-05-27] MEDS ORDERED: POLYETHYLENE GLYCOL 3350 17 GM PACKET. PO PRN (12:30)
[2021-05-27] MEDS: LOSARTAN POTASSIUM 25 MG TABLET. PO SCH (14:06)
[2021-05-27] MEDS: CARVEDILOL 3.125 MG TABLET. PO SCH ×2 (14:07→17:00)
[2021-05-27] MEDS: PANTOPRAZOLE 40 MG TABLET.DR. PO SCH (14:07)
[2021-05-27 15:00] VITALS: BP 120/69
--- NOTE | 2021-05-27 15:06 | HP ---
DATE OF SERVICE: 05/27/2021 ADMIT DATE: 05/26/2021 CHIEF COMPLAINT AND HISTORY OF PRESENT ILLNESS: This 65-year-old male sent from [facility] on the day of admission because of shortness of breath as well as severe right-sided abdominal pain. He appeared to be pale, in respiratory distress and was set out. Findings in the Emergency Room included a CT showing no etiology for his pain, specifically against appendicitis. He does have a small amount of ascites and cholelithiasis. He was felt to be in congestive heart failure with bilateral pleural effusions noted on the CT scan and an elevated BNP at 7923. Troponins were negative and was admitted for diuresis and further evaluation of his abdominal pain. PAST MEDICAL HISTORY: Remarkable for coronary artery disease, he is status post CABG. Has a history of diabetes, DVT, hyperlipidemia, hypertension, ischemic cardiomyopathy, history of drug abuse, PAD with right lower extremity fem-pop recently with wound still present from that healing on his right thigh. MEDICATIONS: Brought with the patient, listed on computer, have been addressed. ALLERGIES: He has no known drug allergies. SOCIAL HISTORY: Former smoker, does not currently drink or use any drugs, living in a [facility] setting. FAMILY HISTORY: Noncontributory. REVIEW OF SYSTEMS: As mentioned above. PHYSICAL EXAMINATION: GENERAL: He is a well-developed, well-nourished male, who is much more comfortable than when seen the day prior. His breathing has slowed down and he is not nearly so tender on abdominal palpation. VITAL SIGNS: Stable. He is afebrile. HEAD, EYES, EARS, NOSE AND THROAT: Unremarkable. NECK: Supple, without adenopathy or thyromegaly. CHEST: Reveals decreased breath sounds at both bases. HEART: Regular rate and rhythm without S3, S4 or murmur. ABDOMEN: Remains distended, but not tender as much as it was. Bowel sounds are normal. EXTREMITIES: Reveal no significant edema; however, he does have edema in his scrotal area. NEUROLOGIC: Unremarkable. ASSESSMENT: 1. Acute on chronic systolic heart failure with bilateral pleural effusions and shortness of breath. 2. Abdominal pain could be passive from congestion from the heart failure. 3. Other problems listed above. PLAN: Diuresis. Cardiology evaluation with their help with plans to follow. STEVIE/ANNA/JENELLE DR: STEVIE/susie TID: [id number]
[2021-05-27] MEDS: CLOPIDOGREL BISULFATE 75 MG TABLET PO SCH (17:24)
[2021-05-27 19:00] VITALS: BP 111/63
[2021-05-27] MEDS: TAMSULOSIN 0.4 MG CAP.ER.24H. PO SCH (20:54)
[2021-05-27] MEDS: ATORVASTATIN CALCIUM 40 MG TABLET. PO SCH (20:54)
[2021-05-27 23:00] VITALS: BP 114/66
[2021-05-28 03:00] VITALS: BP 118/64
[2021-05-28 07:00] VITALS: BP 107/62
--- NOTE | 2021-05-28 07:17 | PDOC ---
PROGRESS NOTES Date of Service: DATE: 05/28/21 TIME: 07:17 Subjective Subjective Edema improved, denied any chest pain Objective Objective Vital Signs Date Time Temp Pulse Resp B/P (MAP) Pulse Ox O2 Delivery O2 Flow Rate FiO2 05/28/21 03:00 97.7 81 18 118/64 (82) 96 97.7 05/27/21 08:00 Nasal Cannula 3.0 Intake and Output 05/28/21 07:00 Intake Total 720 ml Output Total 1 ml Balance 719 ml Intake Oral 720 ml Output Urine Total 1 ml # Voids 5 Physical Exam Abdomen: Normal bowel sounds, Soft, Other (Tender to palpation right lower quadrant no peritoneal signs) Heart: Regular rate, No murmurs Extremities: No edema General: Alert, Oriented X3, Cooperative, No acute distress HEENT: Atraumatic, PERRLA, EOMI Lungs: Clear to auscultation, Normal air movement MUSCULOSKELETAL: Osteoarthritic changes both hands Neuro: Normal speech Psych/Mental Status: Mental status NL Skin: No significant lesion Assessment Assessment 1. Abdominal pain. CT with cholelithiasis, ascites 2. Acute on chronic diastolic/systolic CHF 3. ICM: LVEF 30-35% per echo 04/12 4. CAD; past emergent CABG x2 08/13/2016 due to recurrent ISR, clinically stable. on Plavix 5. PAFIB/flutter; s/p CV. presently SR. on amiodarone for rhythm maintenance and Eliquis for stroke prophylaxis 6. Hypertension; controlled 7. Hyperlipidemia; statin 8. Diabetes, II 9. Severe LE PAD; s/p previous left fem-pop bypass and more recent right femoral to above knee popliteal bypass 12/2020. Had persistent seroma of the right thigh and underwent drainage sartorious muscle flap recently and had wound vac. Wound remains open 10. H/o substance abuse, methamphetamine use 11. Coccyx wound 12. Anemia; s/p transfusion; hgb stable Recommendations Continue diuresis Secondary prevention Continue Coreg, losartan and agree with adding spironolactone Continue Amiodarone for rhythm maintenance Supportive care Plan Plan of Care Problems Medical Problems: (1) Ascites Status: Acute (2) CHF (congestive heart failure) Status: Acute (3) Cholelithiasis Status: Acute Comment Review of Relevant I have reviewed the following items rachel (where applicable) has been applied. Labs Laboratory Tests Test 05/27/21 07:39 05/27/21 11:36 05/27/21 17:25 Glucose (Fingerstick) 81 mg/dL (70-99) 85 mg/dL (70-99) 80 mg/dL (70-99) Microbiology 05/27/21 Blood Culture - Preliminary, Resulted NO GROWTH AFTER 1 DAY Medications Current Medications Acetaminophen/ Hydrocodone Bitart (Lortab 7.5/325) 1 tab QIDPRN PRN PO MODERATE TO SEVERE PAIN; Start 05/27/21 at 09:15 Albuterol/ Ipratropium (Duoneb) 3 ml PRN Q4HRS PRN NEB SHORTNESS OF BREATH; Start 05/27/21 at 09:15 Amiodarone HCl (Cordarone) 200 mg DAILY PO ; Start 05/28/21 at 09:00 Apixaban (Eliquis) 5 mg BID PO Last administered on 05/27/21at 20:54; Start 05/27/21 at 09:15 Atorvastatin Calcium (Lipitor) 40 mg QHS PO Last administered on 05/27/21at 20 :54; Start 05/27/21 at 21:00 Bisacodyl (Dulcolax Supp) 10 mg PRN DAILY PRN RC CONSTIPATION; Start 05/27/21 at 09:15 Carvedilol (Coreg) 3.125 mg BIDWMEALS PO Last administered on 05/27/21at 14:07; Start 05/27/21 at 12:00 Clopidogrel Bisulfate (Plavix) 75 mg DAILYWSUP PO Last administered on 05/27/21at 17:24; Start 05/27/21 at 17:00 Docusate Sodium (Colace) 100 mg PRN DAILY PRN PO HARD STOOLS; Start 05/27/21 at 09:15 Ferrous Sulfate (Feosol) 325 mg BIDWMEALS PO Last administered on 05/27/21at 17:24; Start 05/27/21 at 09:15 Fluoxetine HCl (PROzac) 20 mg DAILY PO Last administered on 05/27/21at 09:55; Start 05/27/21 at 09:15 Furosemide (Lasix) 40 mg DAILY IVP ; Start 05/28/21 at 09:30 Gabapentin (Neurontin) 300 mg TID PO Last administered on 05/27/21at 20:54; Start 05/27/21 at 09:15 Lactobacillus Rhamnosus (Culturelle) 1 cap BID PO Last administered on 05/27/21 20:54; Start 05/27/21 at 09:15 Losartan Potassium (Cozaar) 25 mg DAILY PO Last administered on 05/27/21at 14:06; Start 05/27/21 at 12:00 Magnesium Hydroxide (Milk Of Magnesia) 2,400 mg PRN DAILY PRN PO CONSTIPATION; Start 05/27/21 at 09:15 Multivitamins (Thera M Plus) 1 tab DAILY PO Last administered on 05/27/21 09:56; Start 05/27/21 at 09:15 Olanzapine (ZyPREXA) 5 mg BID PO Last administered on 05/27/21 20:54; Start at 09:15 Pantoprazole Sodium (Protonix) 40 mg DAILYAC PO Last administered on 05/27/21 14:07; Start 05/27/21 at 13:30 Polyethylene Glycol (miraLAX PACKET) 17 gm PRN DAILY PRN PO CONSTIPATION; Start 05/27/21 at 12:30 Sodium Monofluorophosphate (Fleet Adult) 133 ml PRN DAILY PRN RC CONSTIPATION; Start 05/27/21 at 09:15 Tamsulosin HCl (Flomax) 0.4 mg QHS PO Last administered on 05/27/21 20:54; Start 05/27/21 at 21:00 Vitals/I & O Vital Sign - Last 24 Hours 05/27/21 05/27/21 05/27/21 05/27/21 08:00 11:00 14:06 14:07 Temp 97.8 97.8 Pulse 62 62 62 Resp 18 B/P (MAP) 115/65 (82) 115/65 115/65 Pulse Ox 100 O2 Delivery Nasal Cannula O2 Flow Rate 3.0 05/27/21 05/27/21 05/27/21 05/28/21 15:00 19:00 23:00 03:00 Temp 98.1 97.7 97.6 97.7 98.1 97.7 97.6 97.7 Pulse 65 57 60 81 Resp 16 18 16 18 B/P (MAP) 120/69 (86) 111/63 (79) 114/66 (82) 118/64 (82) Pulse Ox 100 99 99 96 Intake and Output 05/27/21 05/27/21 05/28/21 15:00 23:00 07:00 Intake Total 480 ml 240 ml Output Total 1 ml Balance 480 ml 239 ml CHUY FLEMING MD May 28, 2021 07:17
[2021-05-28] MEDS: CARVEDILOL 3.125 MG TABLET. PO SCH ×2 (08:00→17:21)
[2021-05-28 08:28] LABS: CALCIUM 7.9 mg/dL (8.5-10.1); POTASSIUM 3.8 mmol/L (3.5-5.1)
[2021-05-28] MEDS: LOSARTAN POTASSIUM 25 MG TABLET. PO SCH (09:00)
[2021-05-28] MEDS: FERROUS SULFATE 325 MG TABLET. PO SCH ×2 (09:22→17:20)
[2021-05-28] MEDS: OLANZapine 5 MG TABLET PO SCH ×2 (09:22→21:17)
[2021-05-28] MEDS: PANTOPRAZOLE 40 MG TABLET.DR. PO SCH (09:23)
[2021-05-28] MEDS: LACTOBACILLUS RHAMNOSUS GG 1 CAPSULE. PO SCH ×2 (09:23→21:17)
[2021-05-28] MEDS: FLUoxetine HCL 20 MG CAPSULE PO SCH (09:23)
[2021-05-28] MEDS: AMIODARONE HCL 200 MG TABLET. PO SCH (09:23)
[2021-05-28] MEDS: MULTIVITAMIN with MINERAL TABLET. PO SCH (09:23)
[2021-05-28] MEDS: GABAPENTIN 300 MG CAPSULE. PO SCH ×3 (09:23→21:17)
[2021-05-28] MEDS: APIXABAN 5 MG TABLET. PO SCH ×2 (09:23→21:17)
[2021-05-28] MEDS: FUROSEMIDE 40 MG/4 ML VIAL. IVP SCH (09:23)
[2021-05-28 11:00] VITALS: BP 102/65
--- NOTE | 2021-05-28 12:55 | PDOC ---
Provider Note Date of Service: DATE: 05/28/21 TIME: 12:54 Provider Note edema less, effusions on ct- has ef 30% per 2020 echo- cont iv lasix, follow, add spirono Justifications for Admission Other Justification Hypotension JULIETA KELLEY MD May 28, 2021 12:55
[2021-05-28 15:00] VITALS: BP 124/73
[2021-05-28] MEDS: SPIRONOLACTONE 25 MG TABLET PO SCH (15:06)
[2021-05-28] MEDS: CLOPIDOGREL BISULFATE 75 MG TABLET PO SCH (17:21)
[2021-05-28 19:20] VITALS: BP 102/65
[2021-05-28] MEDS: ATORVASTATIN CALCIUM 40 MG TABLET. PO SCH (21:17)
[2021-05-28] MEDS: TAMSULOSIN 0.4 MG CAP.ER.24H. PO SCH (21:17)
[2021-05-28 22:45] VITALS: BP 118/73
[2021-05-29 03:13] VITALS: BP 95/54
[2021-05-29 05:50] LABS: HEMOGLOBIN A1C 5.4 % (4.8-5.6)
[2021-05-29 07:00] VITALS: BP 119/68
[2021-05-29] MEDS: CARVEDILOL 3.125 MG TABLET. PO SCH ×2 (08:00→17:00)
[2021-05-29] MEDS: LACTOBACILLUS RHAMNOSUS GG 1 CAPSULE. PO SCH ×2 (08:59→21:11)
[2021-05-29] MEDS: MULTIVITAMIN with MINERAL TABLET. PO SCH (08:59)
[2021-05-29] MEDS: OLANZapine 5 MG TABLET PO SCH ×2 (08:59→21:11)
[2021-05-29] MEDS: FERROUS SULFATE 325 MG TABLET. PO SCH ×2 (08:59→17:30)
[2021-05-29] MEDS: AMIODARONE HCL 200 MG TABLET. PO SCH (09:00)
[2021-05-29] MEDS: LOSARTAN POTASSIUM 25 MG TABLET. PO SCH (09:00)
[2021-05-29] MEDS: FLUoxetine HCL 20 MG CAPSULE PO SCH (09:00)
[2021-05-29] MEDS: SPIRONOLACTONE 25 MG TABLET PO SCH (09:01)
[2021-05-29] MEDS: PANTOPRAZOLE 40 MG TABLET.DR. PO SCH (09:01)
[2021-05-29] MEDS: GABAPENTIN 300 MG CAPSULE. PO SCH ×3 (09:01→21:11)
[2021-05-29] MEDS: APIXABAN 5 MG TABLET. PO SCH ×2 (09:01→21:11)
[2021-05-29] MEDS: FUROSEMIDE 40 MG/4 ML VIAL. IVP SCH (09:06)
--- NOTE | 2021-05-29 09:23 | PDOC ---
PROGRESS NOTES Date of Service: DATE: 05/29/21 TIME: 09:23 Subjective Subjective Feeling better with improvement in edema. Denied any chest pain. Objective Objective Vital Signs Date Time Temp Pulse Resp B/P (MAP) Pulse Ox O2 Delivery O2 Flow Rate FiO2 05/29/21 09:00 55 119/68 05/29/21 08:00 Nasal Cannula 3.0 05/29/21 07:00 97.9 18 99 97.9 Intake and Output 05/29/21 07:00 Intake Total 390 ml Balance 390 ml Intake Oral 390 ml # Voids 6 Physical Exam Abdomen: Normal bowel sounds, Soft, Other (Tender to palpation right lower quadrant no peritoneal signs) Heart: Regular rate, No murmurs Extremities: No edema General: Alert, Oriented X3, Cooperative, No acute distress HEENT: Atraumatic, PERRLA, EOMI Lungs: Clear to auscultation, Normal air movement MUSCULOSKELETAL: Osteoarthritic changes both hands Neuro: Normal speech Psych/Mental Status: Mental status NL Skin: No significant lesion Assessment Assessment 1. Abdominal pain. CT with cholelithiasis, ascites 2. Acute on chronic diastolic/systolic CHF 3. ICM: LVEF 30-35% per echo 04/12 4. CAD; past emergent CABG x2 08/13/2016 due to recurrent ISR, clinically stable. on Plavix 5. PAFIB/flutter; s/p CV. presently SR. on amiodarone for rhythm maintenance and Eliquis for stroke prophylaxis 6. Hypertension; controlled 7. Hyperlipidemia; statin 8. Diabetes, II 9. Severe LE PAD; s/p previous left fem-pop bypass and more recent right femoral to above knee popliteal bypass 12/2020. Had persistent seroma of the right thigh and underwent drainage sartorious muscle flap recently and had wound vac. Wound remains open 10. H/o substance abuse, methamphetamine use 11. Coccyx wound 12. Anemia; s/p transfusion; hgb stable Recommendations Continue Lasix Secondary prevention Continue Coreg, losartan and spironolactone Continue Amiodarone for rhythm maintenance and Eliquis for stroke prophylaxis Plan Plan of Care Problems Medical Problems: (1) Ascites Status: Acute (2) CHF (congestive heart failure) Status: Acute (3) Cholelithiasis Status: Acute Comment Review of Relevant I have reviewed the following items rachel (where applicable) has been applied. Labs Laboratory Tests Test 05/28/21 12:19 05/28/21 17:00 05/29/21 07:30 Glucose (Fingerstick) 99 mg/dL (70-99) 91 mg/dL (70-99) 79 mg/dL (70-99) Microbiology 05/27/21 Blood Culture - Preliminary, Resulted NO GROWTH AFTER 2 DAYS Medications Current Medications Furosemide (Lasix) 40 mg DAILY IVP Last administered on 05/29/21at 09:06; Start 05/28/21 at 09:30 Spironolactone (Aldactone) 25 mg DAILY PO Last administered on 05/29/21at 09:01; Start 05/28/21 at 14:00 Vitals/I & O Vital Sign - Last 24 Hours 05/28/21 05/28/21 05/28/21 05/28/21 11:00 15:00 17:21 19:20 Temp 97.9 98.1 97.9 97.9 98.1 97.9 Pulse 62 60 61 79 Resp 18 18 17 B/P (MAP) 102/65 (77) 124/73 (90) 123/78 102/65 (77) Pulse Ox 98 100 94 O2 Delivery Nasal Cannula Nasal Cannula Nasal Cannula O2 Flow Rate 3.0 3.0 3.0 05/28/21 05/28/21 05/29/21 05/29/21 19:20 22:45 03:13 07:00 Temp 98.6 98.5 97.9 98.6 98.5 97.9 Pulse 63 59 55 Resp 16 20 18 B/P (MAP) 118/73 (88) 95/54 (68) 119/68 (85) Pulse Ox 99 91 99 O2 Delivery Nasal Cannula Nasal Cannula Nasal Cannula Nasal Cannula O2 Flow Rate 3.0 3.0 3.0 3.0 05/29/21 05/29/21 05/29/21 08:00 08:00 09:00 Pulse 55 55 B/P (MAP) 119/68 119/68 O2 Delivery Nasal Cannula O2 Flow Rate 3.0 Intake and Output0 05/28/21 05/28/21 05/29/21 15:00 23:00 07:00 Intake Total 80 ml 310 ml Balance 80 ml 310 ml CHUY FLEMING MD May 29, 2021 09:23
[2021-05-29] MEDS: HYDROcodone/APAP 7.5/325MG 1 TAB TABLET PO PRN (10:48)
[2021-05-29 11:00] VITALS: BP 125/68
--- NOTE | 2021-05-29 11:01 | PDOC ---
Provider Note Date of Service: DATE: 05/29/21 TIME: 11:01 Provider Note status same , exam same- labs ok, a1c low so dc fingersticks- cont iv lasix re pleural effusions, spirono added Justifications for Admission Other Justification Hypotension JULIETA KELLEY MD May 29, 2021 11:01
[2021-05-29] MEDS: POTASSIUM CHLORIDE 10 MEQ TABLET.ER. PO SCH ×2 (14:16→17:31)
[2021-05-29 15:00] VITALS: BP 122/72
[2021-05-29] MEDS: CLOPIDOGREL BISULFATE 75 MG TABLET PO SCH (17:31)
[2021-05-29 19:30] VITALS: BP 116/68
[2021-05-29] MEDS: TAMSULOSIN 0.4 MG CAP.ER.24H. PO SCH (21:11)
[2021-05-29] MEDS: ATORVASTATIN CALCIUM 40 MG TABLET. PO SCH (21:11)
[2021-05-29 22:40] VITALS: BP 118/65
[2021-05-30 02:56] VITALS: BP 113/62
[2021-05-30 06:57] LABS: CREATININE 0.9 mg/dL (0.7-1.3); GFR 84.7; POTASSIUM 4.1 mmol/L (3.5-5.1)
[2021-05-30 07:20] VITALS: BP 124/67
[2021-05-30] MEDS: LACTOBACILLUS RHAMNOSUS GG 1 CAPSULE. PO SCH ×2 (08:30→21:09)
[2021-05-30] MEDS: GABAPENTIN 300 MG CAPSULE. PO SCH ×3 (08:30→21:09)
[2021-05-30] MEDS: PANTOPRAZOLE 40 MG TABLET.DR. PO SCH (08:30)
[2021-05-30] MEDS: FERROUS SULFATE 325 MG TABLET. PO SCH ×2 (08:30→17:12)
[2021-05-30] MEDS: APIXABAN 5 MG TABLET. PO SCH ×2 (08:30→21:09)
[2021-05-30] MEDS: POTASSIUM CHLORIDE 10 MEQ TABLET.ER. PO SCH ×2 (08:30→17:12)
[2021-05-30] MEDS: MULTIVITAMIN with MINERAL TABLET. PO SCH (08:30)
[2021-05-30] MEDS: SPIRONOLACTONE 25 MG TABLET PO SCH (08:30)
[2021-05-30] MEDS: OLANZapine 5 MG TABLET PO SCH ×2 (08:31→21:09)
[2021-05-30] MEDS: CARVEDILOL 3.125 MG TABLET. PO SCH ×2 (08:31→17:11)
[2021-05-30] MEDS: AMIODARONE HCL 200 MG TABLET. PO SCH (08:31)
[2021-05-30] MEDS: LOSARTAN POTASSIUM 25 MG TABLET. PO SCH (08:31)
[2021-05-30] MEDS: FLUoxetine HCL 20 MG CAPSULE PO SCH (08:31)
[2021-05-30] MEDS: FUROSEMIDE 40 MG/4 ML VIAL. IVP SCH (08:31)
--- NOTE | 2021-05-30 10:39 | PDOC ---
Date of Service: DATE: 05/30/21 TIME: 10:35 Subjective: Subjective: Some RLQ pain - there all the time. Stooling and tolerating diet. Nursing present - no additional concerns, stools c/w iron. Objective: Vital Signs: Vital Signs Date Time Temp Pulse Resp B/P (MAP) Pulse Ox O2 Delivery O2 Flow Rate FiO2 05/30/21 08:31 59 124/67 05/30/21 08:30 Nasal Cannula 2.0 05/30/21 07:20 96.5 97 96.5 05/30/21 02:56 16 Labs: Laboratory Tests Test 05/30/21 06:35 Sodium Level 141 mmol/L Potassium Level 4.1 mmol/L Chloride Level 105 mmol/L Carbon Dioxide Level 32 mmol/L Anion Gap 4 Blood Urea Nitrogen 21 mg/dL Creatinine 0.9 mg/dL Estimated GFR (Cockcroft-Gault) 84.7 Glucose Level 113 mg/dL Calcium Level 8.0 mg/dL PE: GEN: NAD - nursing changing brief LUNGS: clear, NC 2L HEART: RRR ABD: some anasarca, RLQ (quite low - toward groin) discomfort EXTREM: dressing right thigh NEURO/PSYCH: A & O 3 A/P: RLQ pain - recurrent, not clear this is a GI issue CHF, ICM Known FRANKO - stable, no previous scopes H/o A Fib, CAD, severe PAD - on Plavix, Eliquis Coccyx wound, debility -- Continue support GI-franks. At some point should have 'scopes re: anemia - can pursue as outpt - imagine prep will be difficult with many other issues. Continue PPI and iron. Justicifation of Admission Dx: Justifications for Admission: Justification of Admission Dx: No CO: Acute NSTEMI LADY MANNING May 30, 2021 10:39
[2021-05-30 11:00] VITALS: BP 114/58
[2021-05-30] MEDS: HYDROcodone/APAP 7.5/325MG 1 TAB TABLET PO PRN ×2 (13:09→19:17)
--- NOTE | 2021-05-30 14:08 | PN ---
DATE: 05/30/2021 DAILY PROGRESS NOTE LOCATION: He is in room 203. SUBJECTIVE: This 65-year-old male remains hospitalized with congestive heart failure with bilateral pleural effusions and shortness of breath. Abdominal pain on admission is improved somewhat, but still has some right-sided abdominal pain. He is overall better. Wound care is following with dressing changes for his thigh and buttocks. OBJECTIVE: VITAL SIGNS: Stable. He is afebrile. I's and O's are not accurate. CHEST: Decreased breath sounds in both bases. HEART: Regular rate and rhythm. ABDOMEN: Continue right sided tenderness, but decreased. EXTREMITIES: No significant edema. NEUROLOGIC: He is intact. LABORATORY DATA: Morning BMP is essentially unremarkable. ASSESSMENT: 1. Acute on chronic systolic heart failure with bilateral pleural effusions, shortness of breath. 2. Abdominal pain, improving. 3. Wounds. PLAN: Continue diuresis. Recheck chest x-ray today. Look towards discharge as soon as tomorrow with close outpatient followup. He remains on O2 and hopefully this can be weaned. EDI DR: Faye TID: [id number]
--- NOTE | 2021-05-30 14:23 | PDOC ---
RADHA MORELOS VISUAL MERCHANDISE MANAGER 05/30/21 1423: CARDIO Progress Notes Date and Time Date of Service 05/30/21 Time of Evaluation 1410 Subjective Subjective: No Chest Pain, No shortness of breath, No Palpitations Vitals Vitals Vital Signs Date Time Temp Pulse Resp B/P (MAP) Pulse Ox O2 Delivery O2 Flow Rate FiO2 05/30/21 13:56 98 Nasal Cannula 2.0 05/30/21 11:00 98.0 63 18 114/58 (76) 98.0 Weight Weight [ ] Input and Output Intake and Output Intake and Output 05/30/21 07:00 Intake Total 480 ml Balance 480 ml Intake Oral 480 ml # Voids 9 Laboratory Labs Laboratory Tests Test 05/30/21 06:35 Sodium Level 141 mmol/L (136-145) Potassium Level 4.1 mmol/L (3.5-5.1) Chloride Level 105 mmol/L (98-107) Carbon Dioxide Level 32 mmol/L (21-32) Anion Gap 4 (6-14) Blood Urea Nitrogen 21 mg/dL (8-26) Creatinine 0.9 mg/dL (0.7-1.3) Estimated GFR (Cockcroft-Gault) 84.7 Glucose Level 113 mg/dL (70-99) Calcium Level 8.0 mg/dL (8.5-10.1) Microbiology Micro Microbiology 05/27/21 Blood Culture - Preliminary, Resulted NO GROWTH AFTER 3 DAYS Physical Exam HEENT: Neck Supple W Full Motion Chest: Symmetric LUNGS: Other (diminished bases) Heart: RRR (SR) Abdomen: Other (soft, distended ) Extremities: Other (trace pedal edema. right thigh wound) Neurology: alert, oriented, follow commands Assessment Assessment 1. Abdominal pain. improved 2. Acute on chronic diastolic/systolic CHF. s/p IV Lasix 3. ICM: LVEF 30-35% per echo 04/12 4. CAD; past emergent CABG x2 08/13/2016 due to recurrent ISR, clinically stable. on Plavix 5. PAFIB/flutter; s/p CV. presently SR. 6. Hypertension; controlled 7. Hyperlipidemia; statin 8. Diabetes, II 9. Severe LE PAD; s/p previous left fem-pop bypass and more recent right femoral to above knee popliteal bypass 12/2020. Had persistent seroma of the right thigh and underwent drainage sartorious muscle flap recently and had wound vac. Wound remains open 10. H/o substance abuse, methamphetamine use 11. Coccyx wound 12. Anemia; hgb stable Recommendations HF optimization Ongoing diuresis with IV Lasix Continue Coreg, losartan Add Jardiance Secondary prevention Continue Amiodarone for rhythm maintenance Eliquis for stroke prophylaxis Recheck CBC in am Supportive care Justicifation of Admission Dx: Justifications for Admission: Justification of Admission Dx: No WI: Acute NSTEMI JEFFREY PENA MD 05/31/21 1257: CARDIO Progress Notes Plan Plan Late entry for 05/30/2021 Patient seen and examined. Agree with above nurse practitioner note RADHA MORELOS VISUAL MERCHANDISE MANAGER May 30, 2021 14:23 JEFFREY PENA MD May 31, 2021 12:57
[2021-05-30] MEDS: EMPAGLIFLOZIN 10 MG TABLET. PO SCH (14:54)
[2021-05-30 15:03] VITALS: BP 123/58
--- NOTE | 2021-05-30 16:18 | RAD ---
XR CHEST 1V History: CHF Comparison: 05/22/2021 Technique: Portable AP radiograph of the chest. Findings: There is a right upper extremity PICC with catheter tip terminating at the mid SVC. Radiating perihil ar opacities, slightly increased from comparison. Increasing small bilateral effusions. No pneumothor ax. Redemonstrated cardiomegaly and indistinct pulmonary vasculature. Degenerative changes of bilater al shoulders and spine. Multiple sternotomy wires. Soft tissues are unremarkable. Impression: 1. Increasing radiating perihilar opacities and effusions and the setting of cardiomegaly consistent with worsening CHF. 2. Right upper extremity PICC with tip projecting in the mid SVC. Electronically signed by: James Weinberg MD (05/30/2021 4:16 PM) [id number]
[2021-05-30] MEDS: CLOPIDOGREL BISULFATE 75 MG TABLET PO SCH (17:12)
[2021-05-30 19:10] VITALS: BP 116/62
[2021-05-30] MEDS: TAMSULOSIN 0.4 MG CAP.ER.24H. PO SCH (21:09)
[2021-05-30] MEDS: ATORVASTATIN CALCIUM 40 MG TABLET. PO SCH (21:09)
[2021-05-30 23:35] VITALS: BP 103/61
[2021-05-31 03:45] VITALS: BP 114/51
[2021-05-31 04:40] LABS: BASO # 0.1 x10^3/uL (0.0-0.2); BASO % 1 % (0-3); EOS # 0.4 x10^3/uL (0.0-0.7); EOS % 8 % (0-3); HEMATOCRIT 24.1 % (39.0-53.0); HEMOGLOBIN 7.7 g/dL (13.0-17.5); LYMPH # 1.1 x10^3/uL (1.0-4.8); LYMPH % 24 % (24-48); MEAN CORPUSCULAR HEMOGLOBIN 26 pg (25-35); MEAN CORPUSCULAR HGB CONC 32 g/dL (31-37); MEAN CORPUSCULAR VOLUME 80 fL (79-100); MONO # 0.5 x10^3/uL (0.0-1.1); MONO % 11 % (0-9); NEUT # 2.7 x10^3/uL (1.8-7.7); NEUT % 56 % (31-73); PLATELET COUNT 386 x10^3/uL (140-400); RED BLOOD COUNT 3.01 x10^6/uL (4.30-5.70); RED CELL DISTRIBUTION WIDTH 19.8 % (11.5-14.5); WHITE BLOOD COUNT 4.9 x10^3/uL (4.0-11.0)
[2021-05-31 07:00] VITALS: BP 111/66
[2021-05-31] MEDS ORDERED: EMPA10TA3 PO (07:48)
[2021-05-31] MEDS ORDERED: SPIR25TA PO (07:48)
[2021-05-31] MEDS ORDERED: CARV3.1210 PO (07:48)
[2021-05-31] MEDS ORDERED: POTA10TA12 PO (07:48)
[2021-05-31] MEDS ORDERED: PANT40TA77 PO (07:48)
[2021-05-31] MEDS ORDERED: LOSA25TA54 PO (07:48)
[2021-05-31] MEDS ORDERED: FURO40TA4 PO (07:48)
--- NOTE | 2021-05-31 07:49 | SNU/HH DC ---
DISCHARGE ORDERS DISCHARGE INFORMATION: DISCHARGE DATE: May 31, 2021 FINAL DIAGNOSIS Problems Medical Problems: (1) Ascites Status: Acute (2) CHF (congestive heart failure) Status: Acute (3) Cholelithiasis Status: Acute CONDITION ON DISCHARGE: Stable CODE STATUS: Code Status: Full FDC: SNF STAY <30 DAYS: Yes HOSPICE: HOSPICE: No HOSPICE EVAL & TREAT: No LTAC: ADMIT TO LTAC: No POST DISCHARGE ORDERS: ACTIVITY ORDERS: Activity as tolerated WEIGHT BEARING STATUS: As tolerated BATHING ORDERS: No Tub Bath until see DIET AFTER DISCHARGE: Cardiac WOUND/INCISION CARE: Keep wound/cast CDI, Change dressing OTHER ORDERS: IV antibiotics per infectious disease recommendati CHECKS AFTER DISCHARGE: CHECKS AFTER DISCHARGE: Check blood press - daily, Check blood sugar, ac/hs, Weigh Yourself Daily FOLLOW-UP: LAB ORDERS FOR FOLLOW-UP: CBC, chem 12, BNP on 05/31 TREATMENT/EQUIPMENT ORDERS: ADAPTIVE EQUIPMENT NEEDED: None Physical Therapy For: Evalulation/Treatment Occupational Therapy For: Evaluation/Treatment DISCHARGE MEDICATIONS: Home Meds Active Scripts Furosemide (FUROSEMIDE) 40 Mg Tablet, 1 TAB PO DAILY for chf, #30 TAB 5 Refills Prov:BRAVO VILLANUEVA MD 05/31/21 Empagliflozin (Jardiance) 10 Mg Tablet, 10 MG PO DAILY for chf for 30 Days, #30 TAB Prov:BRAVO VILLANUEVA MD 05/31/21 Pantoprazole Sodium (PANTOPRAZOLE SODIUM ) 40 Mg Tablet.dr, 40 MG PO DAILYAC for pud for 30 Days, #30 TAB.SR Prov:BRAVO VILLANUEVA MD 05/31/21 Potassium Chloride (KLOR-CON 10) 10 Meq Tablet.er, 10 MEQ PO BIDAFTMEAL for replacement for 30 Days, #60 TAB.SR Prov:BRAVO VILLANUEVA MD 05/31/21 Spironolactone (ALDACTONE) 25 Mg Tablet, 25 MG PO DAILY for chf for 30 Days, #30 TAB Prov:BRAVO VILLANUEVA MD 05/31/21 Losartan Potassium (LOSARTAN POTASSIUM ) 25 Mg Tablet, 25 MG PO DAILY for chf for 30 Days, #30 TAB Prov:BRAVO VILLANUEVA MD 05/31/21 Carvedilol (CARVEDILOL ) 3.125 Mg Tablet, 3.125 MG PO BIDWMEALS for chf for 30 Days, #60 TAB Prov:BRAVO VILLANUEVA MD 05/31/21 Hydrocodone/Acetaminophen (Hydrocodone-Acetamin 7.5-325) 1 Each Tablet, 1 EACH PO QIDPRN for pain, #30 TAB Prov:ADAMS DUONG MD 05/24/21 Docusate Sodium (COLACE) 100 Mg Capsule, 100 MG PO PRN DAILY PRN for HARD STOOLS, #30 CAP Prov:ADAMS DUONG MD 04/13/21 Tamsulosin Hcl (FLOMAX) 0.4 Mg Cap.er.24h, 0.4 MG PO QHS for urine retention, #30 CAP.SR Prov:ADAMS DUONG MD 01/31/21 Multivits,Ca,Minerals/Iron/Fa (THERA-M TABLET) 1 Each Tablet, 1 TAB PO DAILY for wounds, #30 TAB Prov:ADAMS DUONG MD 01/31/21 Atorvastatin Calcium (ATORVASTATIN CALCIUM) 40 Mg Tablet, 40 MG PO QHS for 30 Days, #30 TAB Prov:JACINTO LOVE MD 08/07/16 Reported Medications Na Phos,M-B/Na Phos,Di-Ba (FLEET ENEMA) 133 Ml Enema, 1 EACH RC PRN DAILY PRN for CONSTIPATION, #1 BOTTLE 05/23/21 Ferrous Sulfate (FERROUS SULFATE) 325 Mg Tablet, 1 TAB PO BID for , #60 TAB 3 Refills 05/23/21 Bisacodyl (BISACODYL) 10 Mg Supp.rect, 10 MG RC PRN DAILY PRN for CONSTIPATION, SUPP.RECT 0 Refills 05/23/21 Magnesium Hydroxide (MILK OF MAGNESIA) 400 Mg/5 Ml Oral.susp, 30 ML PO PRN DAILY PRN for CONSTIPATION, MISC 05/23/21 Olanzapine (OLANZAPINE) 5 Mg Tablet, 5 MG PO BID for agitation, TAB 04/20/21 Lactobacillus Acidophilus (PROBIOTIC) 1 Each Capsule, 1 EACH PO BID for bowel health, CAP 04/20/21 Ipratropium/Albuterol Sulfate (DUONEB 0.5-3(2.5) MG/3 ML) 3 Ml Ampul.neb, 3 ML NEB PRN Q4HRS PRN for shortness of breath, EACH 04/20/21 Haloperidol Lactate (HALOPERIDOL LACTATE) 2 Mg/1 Ml Oral.conc, 1 MG PO Q6HRS PRN for angry outbursts, MISC 04/20/21 Gabapentin (GABAPENTIN) 600 Mg Tablet, 300 MG PO TID for NEUROGENIC PAIN, TAB 04/20/21 Fluoxetine Hcl (FLUOXETINE HCL) 20 Mg Capsule, 20 MG PO DAILY for depression, CAP 04/20/21 Clopidogrel Bisulfate (CLOPIDOGREL) 75 Mg Tablet, 75 MG PO DAILYWSUP for TO PREVENT BLOOD CLOTS, #30 TAB 0 Refills 04/20/21 Amiodarone Hcl (AMIODARONE HCL) 200 Mg Tablet, 200 MG PO DAILY for irrregular heart rhythm, TAB 04/20/21 Apixaban (ELIQUIS) 5 Mg Tablet, 5 MG PO BID, TAB 10/19/17 Discontinued Reported Medications Daptomycin (Daptomycin) 350 Mg Vial, 430 MG IV DAILY for , EACH 05/23/21 Quetiapine Fumarate (SEROQUEL) 100 Mg Tablet, 100 MG PO HS for restlessness, TAB 04/20/21 Discontinued Scripts Furosemide (FUROSEMIDE) 20 Mg Tablet, 20 MG PO DAILY for CHF, #30 TAB Prov:ADAMS DUONG MD 05/24/21 BRAVO VILLANUEVA MD May 31, 2021 07:49
[2021-05-31] MEDS: FERROUS SULFATE 325 MG TABLET. PO SCH (08:11)
[2021-05-31] MEDS: OLANZapine 5 MG TABLET PO SCH (08:11)
[2021-05-31] MEDS: EMPAGLIFLOZIN 10 MG TABLET. PO SCH (08:11)
[2021-05-31] MEDS: GABAPENTIN 300 MG CAPSULE. PO SCH (08:12)
[2021-05-31] MEDS: CARVEDILOL 3.125 MG TABLET. PO SCH (08:12)
[2021-05-31] MEDS: PANTOPRAZOLE 40 MG TABLET.DR. PO SCH (08:12)
[2021-05-31] MEDS: MULTIVITAMIN with MINERAL TABLET. PO SCH (08:12)
[2021-05-31] MEDS: LOSARTAN POTASSIUM 25 MG TABLET. PO SCH (08:12)
[2021-05-31] MEDS: LACTOBACILLUS RHAMNOSUS GG 1 CAPSULE. PO SCH (08:12)
[2021-05-31] MEDS: FLUoxetine HCL 20 MG CAPSULE PO SCH (08:12)
[2021-05-31 08:13] VITALS: BP 111/66
[2021-05-31] MEDS: SPIRONOLACTONE 25 MG TABLET PO SCH (08:13)
[2021-05-31] MEDS: APIXABAN 5 MG TABLET. PO SCH (08:13)
[2021-05-31] MEDS: POTASSIUM CHLORIDE 10 MEQ TABLET.ER. PO SCH (08:13)
[2021-05-31] MEDS: AMIODARONE HCL 200 MG TABLET. PO SCH (08:13)
[2021-05-31] MEDS: FUROSEMIDE 40 MG/4 ML VIAL. IVP SCH (08:14)
--- NOTE | 2021-05-31 09:23 | DS ---
DATE OF DISCHARGE: 05/31/2021 PRIMARY DIAGNOSES: 1. Shortness of breath due to acute systolic congestive heart failure with bilateral pleural effusions. 2. Abdominal pain. 3. Anemia. 4. Stage 3 bilateral buttocks ulcers. 5. Right thigh wound healing after bypass, peripheral arterial disease, cardiomyopathy, hyperlipidemia, hypertension. ADDITIONAL DIAGNOSIS: Status post coronary artery bypass graft. CHIEF COMPLAINT AND HISTORY OF PRESENT ILLNESS: This 65-year-old male sent to the Emergency Room on day of admission due to increased abdominal pain as well as shortness of breath. He was found to be in acute congestive heart failure with his CT abdomen showing a small amount of ascites and some cholelithiasis, no evidence of appendicitis. SUMMARY OF STAY: The patient was admitted, diuresed and improved symptomatically. Throughout the stay including his abdominal pain, which was likely due to passive congestion from heart failure. GI following along and recommended an outpatient colonoscopy. Wound care changed, wound treatment during the stay and this will be continued on return to [facility] at the time of discharge. He was symptomatically much better, although chest x-ray did not show any significant improvement and maybe some worsening prior to discharge, but was felt ready for dismissal. DISPOSITION: The patient discharged back to [facility]. DIET: Low sodium diet. ACTIVITY: As tolerated. Ongoing wound care. DISCHARGE MEDICATIONS: Listed on the med rec and have been addressed. NIC AGUILLON: Faye TID: [id number]
--- NOTE | 2021-05-31 09:30 | PDOC ---
LIANG CASTELAN CLAM GRADER 05/31/21 0930: CARDIO Progress Notes Date and Time Date of Service 05/31/2021 Time of Evaluation 0910 Subjective Subjective: No Chest Pain, No shortness of breath, No Palpitations Vitals Vitals Vital Signs Date Time Temp Pulse Resp B/P (MAP) Pulse Ox O2 Delivery O2 Flow Rate FiO2 05/31/21 08:13 59 111/66 05/31/21 08:00 Nasal Cannula 2.0 05/31/21 07:00 98.2 16 98 98.2 Weight Weight [ ] Input and Output Intake and Output Intake and Output 05/31/21 07:00 Intake Total 600 ml Balance 600 ml Intake Oral 600 ml # Voids 10 # Bowel Movements 2 Laboratory Labs Laboratory Tests Test 05/31/21 04:15 05/31/21 08:29 White Blood Count 4.9 x10^3/uL (4.0-11.0) Red Blood Count 3.01 x10^6/uL (4.30-5.70) Hemoglobin 7.7 g/dL (13.0-17.5) Hematocrit 24.1 % (39.0-53.0) Mean Corpuscular Volume 80 fL (79-100) Mean Corpuscular Hemoglobin 26 pg (25-35) Mean Corpuscular Hemoglobin Concent 32 g/dL (31-37) Red Cell Distribution Width 19.8 % (11.5-14.5) Platelet Count 386 x10^3/uL (140-400) Neutrophils (%) (Auto) 56 % (31-73) Lymphocytes (%) (Auto) 24 % (24-48) Monocytes (%) (Auto) 11 % (0-9) Eosinophils (%) (Auto) 8 % (0-3) Basophils (%) (Auto) 1 % (0-3) Neutrophils # (Auto) 2.7 x10^3/uL (1.8-7.7) Lymphocytes # (Auto) 1.1 x10^3/uL (1.0-4.8) Monocytes # (Auto) 0.5 x10^3/uL (0.0-1.1) Eosinophils # (Auto) 0.4 x10^3/uL (0.0-0.7) Basophils # (Auto) 0.1 x10^3/uL (0.0-0.2) SARS-CoV-2 Antigen (Rapid) Negative (NEGATIVE) Microbiology Micro Microbiology 05/27/21 Blood Culture - Preliminary, Resulted NO GROWTH AFTER 4 DAYS Physical Exam HEENT: Neck Supple W Full Motion Chest: Symmetric LUNGS: Other (diminished bases) Heart: RRR (SR/SB) Abdomen: Other (soft, distended ) Extremities: Other (trace pedal edema. right thigh wound) Neurology: alert, oriented, follow commands Assessment Assessment 1. Abdominal pain. improved 2. Acute on chronic diastolic/systolic CHF. s/p IV Lasix 3. ICM: LVEF 30-35% per echo 04/12 4. CAD; past emergent CABG x2 08/13/2016 due to recurrent ISR, clinically stable. on Plavix 5. PAFIB/flutter; s/p CV. presently SR/SB. lowest 50s 6. Hypertension; controlled 7. Hyperlipidemia; statin 8. Diabetes, II 9. Severe LE PAD; s/p previous left fem-pop bypass and more recent right femoral to above knee popliteal bypass 12/2020. Had persistent seroma of the right thigh and underwent drainage sartorious muscle flap recently and had wound vac. Wound remains 10. H/o substance abuse, methamphetamine use 11. Coccyx wound 12. Anemia; hgb at 7.7, per PCP Recommendations HF optimization Ongoing diuresis with IV Lasix Continue Coreg, losartan Add Jardiance Secondary prevention Continue Amiodarone for rhythm maintenance Eliquis for stroke prophylaxis Supportive care Justicifation of Admission Dx: Justifications for Admission: Justification of Admission Dx: No ND: Acute NSTEMI JEFFREY PENA MD 05/31/21 1726: CARDIO Progress Notes Plan Plan The patient was seen and interviewed as well as examined at the bedside. The chart was reviewed. The case was discussed. Agree with the plan of care. LIANG CASTELAN CLAM GRADER May 31, 2021 09:30 JEFFREY PENA MD May 31, 2021 17:26
--- NOTE | 2021-05-31 13:13 | PDOC ---
Date of Service: DATE: 05/31/21 TIME: 13:11 Subjective: Subjective: Feels better, gets to leave soon. Objective: Objective: No GI concerns per nurse - discharging today. Vital Signs: Vital Signs Date Time Temp Pulse Resp B/P (MAP) Pulse Ox O2 Delivery O2 Flow Rate FiO2 05/31/21 08:13 59 111/66 05/31/21 08:00 Nasal Cannula 2.0 05/31/21 07:00 98.2 16 98 98.2 Labs: Laboratory Tests Test 05/31/21 04:15 05/31/21 08:29 White Blood Count 4.9 x10^3/uL Red Blood Count 3.01 x10^6/uL Hemoglobin 7.7 g/dL Hematocrit 24.1 % Mean Corpuscular Volume 80 fL Mean Corpuscular Hemoglobin 26 pg Mean Corpuscular Hemoglobin Concent 32 g/dL Red Cell Distribution Width 19.8 % Platelet Count 386 x10^3/uL Neutrophils (%) (Auto) 56 % Lymphocytes (%) (Auto) 24 % Monocytes (%) (Auto) 11 % Eosinophils (%) (Auto) 8 % Basophils (%) (Auto) 1 % Neutrophils # (Auto) 2.7 x10^3/uL Lymphocytes # (Auto) 1.1 x10^3/uL Monocytes # (Auto) 0.5 x10^3/uL Eosinophils # (Auto) 0.4 x10^3/uL Basophils # (Auto) 0.1 x10^3/uL SARS-CoV-2 Antigen (Rapid) Negative BLOOD CULTURE Preliminary NO GROWTH AFTER 4 DAYS PE: GEN: NAD LUNGS: clear, NC 2L HEART: RRR ABD: S/ND/NT NEURO/PSYCH: A & O 3 A/P: RLQ pain - recurrent, probably not a GI problem - better CHF, ICM Known FRANKO H/o A Fib, CAD, severe PAD, wounds, debility - on Plavix, Eliquis -- Continue PPI and iron. Consider outpt scopes if able. Justicifation of Admission Dx: Justifications for Admission: Justification of Admission Dx: No AR: Acute NSTEMI LADY MANNING May 31, 2021 13:13
--- NOTE | 2021-05-31 14:20 | NUR ---
Discharge Note: ELYSSA CONTRERAS [address] Discharge instructions and discharge home medications reviewed with Yessenia at [facility] and a copy given. All questions have been answered and understanding verbalized. The following instructions and handouts were given: transfer of care Discontinued lines and drains: PICC in place at discharge Patient discharged to [facility] via transport
== END 2021-05-31 13:30 | DRG 291 ==
LOC: ER 16:22 → 2 NORTH 19:50
PROVIDERS: ADMIT Family Medicine; ATTEND Family Medicine
DX: I11.0 Hypertensive heart disease with heart failure (principal); L89.323 Pressure ulcer of left buttock, stage 3; L89.313 Pressure ulcer of right buttock, stage 3; I50.43 Acute on chronic combined systolic (congestive) and diastolic (congestive) heart failure; J90 Pleural effusion, not elsewhere classified; R18.8 Other ascites; I48.92 Unspecified atrial flutter; D64.9 Anemia, unspecified; E11.51 Type 2 diabetes mellitus with diabetic peripheral angiopathy without gangrene; F41.9 Anxiety disorder, unspecified; E11.42 Type 2 diabetes mellitus with diabetic polyneuropathy; K76.0 Fatty (change of) liver, not elsewhere classified; J44.9 Chronic obstructive pulmonary disease, unspecified; K80.20 Calculus of gallbladder without cholecystitis without obstruction; I25.10 Atherosclerotic heart disease of native coronary artery without angina pectoris; E78.00 Pure hypercholesterolemia, unspecified; N40.0 Benign prostatic hyperplasia without lower urinary tract symptoms; E78.5 Hyperlipidemia, unspecified; I25.5 Ischemic cardiomyopathy; M19.90 Unspecified osteoarthritis, unspecified site; R53.81 Other malaise; I48.0 Paroxysmal atrial fibrillation; R10.9 Unspecified abdominal pain; Z20.822 Contact with and (suspected) exposure to COVID-19; I25.2 Old myocardial infarction; Z86.718 Personal history of other venous thrombosis and embolism; Z87.891 Personal history of nicotine dependence; Z95.1 Presence of aortocoronary bypass graft; Z86.73 Personal history of transient ischemic attack (TIA), and cerebral infarction without residual deficits; Z87.11 Personal history of peptic ulcer disease; Z80.9 Family history of malignant neoplasm, unspecified
CPT/HCPCS: 36415; 71045; 74177; 80048; 80053; 82728; 82962; 83036; 83605; 83690; 83735; 83880; 84145; 84443; 84484; 85025; 87040; 87426; 93005; 96374; 96376; J0696; J1940; J2270; J3010; Q9967; 99285-25; G0378

== ENCOUNTER 2021-06-21 09:25 | Emergency (ER) | payer MEDICARE ==
[~2021-06-21] VITALS: Ht 182.9 cm; Wt 86.3 kg
[~2021-06-21 09:25] MED LIST changes: +CARV3.1210 PO; +EMPA10TA3 PO; +FURO40TA4 PO; +LOSA25TA54 PO; +PANT40TA77 PO; +POTA10TA12 PO
[2021-06-21 09:57] LABS: BASO # 0.1 x10^3/uL (0.0-0.2); BASO % 1 % (0-3); EOS # 0.2 x10^3/uL (0.0-0.7); EOS % 3 % (0-3); HEMATOCRIT 31.6 % (39.0-53.0); HEMOGLOBIN 9.8 g/dL (13.0-17.5); LYMPH # 1.5 x10^3/uL (1.0-4.8); LYMPH % 21 % (24-48); MEAN CORPUSCULAR HEMOGLOBIN 24 pg (25-35); MEAN CORPUSCULAR HGB CONC 31 g/dL (31-37); MEAN CORPUSCULAR VOLUME 79 fL (79-100); MONO # 0.8 x10^3/uL (0.0-1.1); MONO % 12 % (0-9); NEUT # 4.4 x10^3/uL (1.8-7.7); NEUT % 63 % (31-73); PLATELET COUNT 366 x10^3/uL (140-400); RED BLOOD COUNT 4.02 x10^6/uL (4.30-5.70); RED CELL DISTRIBUTION WIDTH 19.7 % (11.5-14.5)
[2021-06-21] MEDS ORDERED: HYDROcodone/APAP 5/325MG 1 TAB TABLET PO ONE (10:00)
--- NOTE | 2021-06-21 10:08 | PHYS DOC ---
Past Medical History Past Medical History: CAD, Diabetes-Type II, DVT, High Cholesterol, Hyper tension, [place] Additional Past Medical Histor: NEUROPATHY,DRUG ABUSE,PAD,NSTEMI,BPH,BLOOD THINNERS,PVD Past Surgical History: Angioplasty, Coronary Bypass Surgery Additional Past Surgical Histo: lower ext. bypass, wound Vac right thigh Smoking Status: Former Smoker Alcohol Use: None Drug Use: None General Adult EDM: Chief Complaint: PAIN ON URINATION HPI: HPI: Patient is a 65 year old male presents to the emergency department via EMS hand tube bender transport for low abdominal discomfort and pain with urination that started yesterday. 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 Patient states he has lower abdominal pain with pressure, painful urination prior to being picked up for transport to the emergency department. Patient rates his pain a 7 out of 10. Patient denies nausea, vomiting, states he does have loose stools intermittently, denies other physical complaints or physical concerns. Review of Systems: Review of Systems: 14 body systems of review of systems have been reviewed. See HPI for pertinent positives and negative responses, otherwise all other systems are negative, nonpertinent or noncontributory. Constitutional: Negative except as outlined in HPI above. Skin: Negative except as outlined in HPI above. Eyes: Negative except as outlined in HPI above. HENT: Negative except as outlined in HPI above. Respiratory: Negative except as outlined in HPI above. Cardiovascular: Negative except as outlined in HPI above. GI: Negative except as outlined in HPI above. : Negative except as outlined in HPI above. Musculoskeletal: Negative except as outlined in HPI above. Integument: Negative except as outlined in HPI above. Neurologic: Negative except as outlined in HPI above. Endocrine: Negative except as outlined in HPI above. Lymphatic: Negative except as outlined in HPI above. Psychiatric: Negative except as outlined in HPI above. Heart Score: C/O Chest Pain: No Risk Factors: Risk Factors: DM, Current or recent (<one month) smoker, HTN, HLP, family history of CAD, obesity. Risk Scores: Score 0 - 3: 2.5% MACE over next 6 weeks - Discharge Home Score 4 - 6: 20.3% MACE over next 6 weeks - Admit for Clinical Observation Score 7 - 10: 72.7% MACE over next 6 weeks - Early Invasive Strategies Allergies: Allergies: Allergies Coded Allergies Type Severity Reaction Last Updated Verified No Known Drug Allergies 06/21/21 No Physical Exam: PE: Constitutional: Well developed, well nourished, no acute distress, non-toxic appearance. [] HENT: Normocephalic, atraumatic, bilateral external ears normal, oropharynx moist, no oral exudates, nose normal. [] Eyes: PERRLA, EOMI, conjunctiva normal, no discharge. [] Neck: Normal range of motion, no tenderness, supple, no stridor. [] Cardiovascular:Heart rate regular rhythm, no murmur [] Lungs & Thorax: Bilateral breath sounds clear to auscultation [] Abdomen: Bowel sounds normal, soft, no tenderness, no masses, no pulsatile masses. [] Skin: Warm, dry, no erythema, no rash. [] Back: No tenderness, no CVA tenderness. [] Extremities: No tenderness, no cyanosis, no clubbing, ROM intact, no edema. [] Neurologic: Alert and oriented X 3, normal motor function, normal sensory function, no focal deficits noted. [] Psychologic: Affect normal, judgement normal, mood normal. [] Current Patient Data: Labs: Laboratory Tests Test 06/21/21 09:49 White Blood Count 7.0 x10^3/uL Red Blood Count 4.02 x10^6/uL Hemoglobin 9.8 g/dL Hematocrit 31.6 % Mean Corpuscular Volume 79 fL Mean Corpuscular Hemoglobin 24 pg Mean Corpuscular Hemoglobin Concent 31 g/dL Red Cell Distribution Width 19.7 % Platelet Count 366 x10^3/uL Neutrophils (%) (Auto) 63 % Lymphocytes (%) (Auto) 21 % Monocytes (%) (Auto) 12 % Eosinophils (%) (Auto) 3 % Basophils (%) (Auto) 1 % Neutrophils # (Auto) 4.4 x10^3/uL Lymphocytes # (Auto) 1.5 x10^3/uL Monocytes # (Auto) 0.8 x10^3/uL Eosinophils # (Auto) 0.2 x10^3/uL Basophils # (Auto) 0.1 x10^3/uL Urine Collection Type Unknown Urine Color (Auto) Yellow Urine Turbidity Turbid Urine pH (Auto) 6.5 Urine Specific [place] 1.012 Urine Protein (Auto) 30 mg/dL Urine Glucose (Auto)(UA) 500 mg/dL Urine Ketones (Auto) Negative mg/dL Urine Blood (Auto) Small Urine Nitrite Negative Urine Bilirubin (Auto) Negative Urine Urobilinogen (Auto) Normal mg/dL Urine Leukocyte Esterase (Auto) Large Urine RBC Field obscured /HPF Urine WBC Tntc /HPF Urine Bacteria Many /HPF Sodium Level 137 mmol/L Potassium Level 5.3 mmol/L Chloride Level 103 mmol/L Carbon Dioxide Level 26 mmol/L Anion Gap 8 Blood Urea Nitrogen 28 mg/dL Creatinine 1.2 mg/dL Estimated GFR (Cockcroft-Gault) 60.8 BUN/Creatinine Ratio 23 Glucose Level 86 mg/dL Calcium Level 9.1 mg/dL Total Bilirubin 0.8 mg/dL Aspartate Amino Transf (AST/SGOT) 38 U/L Alanine Aminotransferase (ALT/SGPT) 16 U/L Alkaline Phosphatase 127 U/L Total Protein 8.3 g/dL Albumin 2.9 g/dL Albumin/Globulin Ratio 0.5 Current Medications Medications (Trade) Dose Ordered Sig/Lizzeth Route PRN Reason Start Time Stop Time Status Last Admin Dose Admin Acetaminophen/ Hydrocodone Bitart (Lortab 5/325) 1 tab 1X ONCE PO 06/21/21 10:00 06/21/21 10:22 DC 06/21/21 10:18 Ceftriaxone Sodium (Rocephin) 1 gm 1X ONCE IVP 06/21/21 10:45 06/21/21 10:46 DC 06/21/21 11:07 Sodium Chloride 1,000 ml @ 1,000 mls/hr 1X ONCE IV 06/21/21 10:45 06/21/21 11:44 06/21/21 11:07 Vital Signs: Vital Signs Date Time Temp Pulse Resp B/P (MAP) Pulse Ox O2 Delivery O2 Flow Rate FiO2 06/21/21 09:34 98.0 57 16 99/58 (72) 97 Room Air 98.0 EKG: EKG: [] Radiology/Procedures: Radiology/Procedures: [] Course & Med Decision Making: Course & Med Decision Making Pertinent Labs and Imaging studies reviewed. (See chart for details) 65-year-old male, vital signs reviewed, presents emerged department concerning lower abdominal discomfort and urinary pressure with pain. A bedside bladder scan was performed showed greater than 300, the patient was unable to void, postvoid residual is 600 cc urine after a indwelling Esquivel catheter placement, urinalysis sample was sent to lab. CBC and CMP were sent to lab. Patient was given p.o. pain medication. The patient's urine is infected, a gram of Rocephin was given IV. Will leave indwelling Esquivel catheter for urology specialist follow-up, discharged back to skilled nursing, will start on Levaquin regimen 750 mg p.o. daily x5 days. Upon reevaluation of the patient, patient reports he feels much better since Esquivel was placed, discussed returning back to skilled nursing, antibiotics and side effects, patient gave verbal understanding of and is amenable to ED discharge planning. ED nursing skilled nursing report was given by primary ED nurse ALLYSON Huber. Patient was transported back to skilled nursing. [employer] Disclaimer: [employer] Disclaimer: This electronic medical record was generated, in whole or in part, using a voice recognition dictation system. Departure Departure Impression: Primary Impression: Urinary tract infection Qualified Codes: N39.0 - Urinary tract infection, site not specified; R31.9 - Hematuria, unspecified Additional Impression: Acute urinary retention Disposition: 01 HOME / SELF CARE / HOMELESS Condition: GOOD Referrals: BRAVO VILLANUEVA MD (PCP) VANNESA LYONS MD Patient Instructions: Urinary Retention, Acute, Male, Urinary Tract Infection Additional Instructions: You were seen today in the emergency department for low abdominal pain with painful urination. You were found to have urinary retention. A Esquivel catheter was placed into your bladder, this will remain until you are seen by a urologist, please make an appointment to be seen by urologist this week. I have given the information for urology specialist Dr. Lyons. You were given an antibiotic intravenously in the emergency department Rocephin 1 g. I have prescribed Levaquin that you will take 1 tablet daily for the next 5 days. Please follow-up with your primary care physician for ongoing symptoms. Thank you for visiting our Emergency Department. It was a pleasure taking care of you today in the emergency department and we appreciate you trusting us with your care. If any additional problems come up don't hesitate to return to visit us. Please follow up with your primary care provider so they can plan additional care if needed and know about the problem that you had. If symptoms worsen come back to the Emergency Department. Any concerning symptoms that start such as c hest pain, shortness of air, weakness or numbness on one side of the body, running high fevers or any other concerning symptoms return to the ER. Scripts Levofloxacin (LEVOFLOXACIN) 750 Mg Tablet 1 TAB PO DAILY for UTI, #5 TAB 0 Refills Prov: RAGHAV BISHOP APRN 06/21/21 RAGHAV BISHOP APRN June 21, 2021 10:08
[2021-06-21 10:10] LABS: CALCIUM 9.1 mg/dL (8.5-10.1); CREATININE 1.2 mg/dL (0.7-1.3); GFR 60.8; POTASSIUM 5.3 mmol/L (3.5-5.1)
[2021-06-21 10:13] LABS: WBC,URINE TNTC /HPF (0-4)
[2021-06-21 10:14] LABS: BACTERIA,URINE MANY /HPF (0-FEW); RBC,URINE FIELD OBSCURED /HPF (0-2)
[2021-06-21] MEDS ORDERED: HYDROcodone/APAP 5/325MG 1 TAB TABLET ONE (10:14)
[2021-06-21 10:15] LABS: ALBUMIN 2.9 g/dL (3.4-5.0); ALBUMIN/GLOBULIN RATIO 0.5 (1.0-1.7); TOTAL BILIRUBIN 0.8 mg/dL (0.2-1.0); TOTAL PROTEIN 8.3 g/dL (6.4-8.2)
[2021-06-21] MEDS ORDERED: IV NORMAL SALINE 1000ML BAG 1,000 ML IV ONE (10:45)
[2021-06-21] MEDS ORDERED: cefTRIAXone IV Push 1 GM VIAL. IVP ONE (10:45)
[2021-06-21 11:00] VITALS: BP 114/68
[2021-06-21] MEDS ORDERED: LEVO750T5 PO (11:08)
== END 2021-06-21 11:51 | disposition home or self-care (01) ==
LOC: ER 09:25
DX: N39.0 Urinary tract infection, site not specified (principal); R31.9 Hematuria, unspecified; R33.9 Retention of urine, unspecified; E11.40 Type 2 diabetes mellitus with diabetic neuropathy, unspecified; I11.0 Hypertensive heart disease with heart failure; I50.9 Heart failure, unspecified; E78.00 Pure hypercholesterolemia, unspecified; I25.10 Atherosclerotic heart disease of native coronary artery without angina pectoris; Z86.718 Personal history of other venous thrombosis and embolism; I25.2 Old myocardial infarction; Z87.891 Personal history of nicotine dependence; Z95.1 Presence of aortocoronary bypass graft; Z95.5 Presence of coronary angioplasty implant and graft
CPT/HCPCS: 36415; 80053; 81001; 85025; 87086; 96361; 96374; 99284; J0696; J7030

== ENCOUNTER 2021-06-28 10:58 | Emergency (ER) | payer MEDICARE ==
[2021-06-28 10:58] VITALS: BP 118/65
[~2021-06-28 10:58] MED LIST changes: +LEVO750T5 PO
[2021-06-28] MEDS ORDERED: IV NORMAL SALINE 1000ML BAG 1,000 ML IV ONE (11:45)
--- NOTE | 2021-06-28 12:06 | PHYS DOC ---
Past Medical History Past Medical History: CAD, Diabetes-Type II, DVT, High Cholesterol, Hyper tension, [place] Additional Past Medical Histor: NEUROPATHY,DRUG ABUSE,PAD,NSTEMI,BPH,BLOOD THINNERS,PVD Past Surgical History: Angioplasty, Coronary Bypass Surgery Additional Past Surgical Histo: lower ext. bypass, wound Vac right thigh, B/L shoulder repair Smoking Status: Never Smoker Alcohol Use: None Drug Use: None General Adult EDM: Chief Complaint: TRAUMA ACTIVATION HPI: HPI: Patient is a 65-year-old male with PMH type 2 diabetes mellitus, hypertension, hypercholesterolemia presents with CC mechanical fall. Patient reports falling on his right side after tripping while performing physical therapy at 08 30 on 06/28/2021. Patient report hitting the right side of his head, elbow, and knee which he reports is extremely tender. Patient denies loss of consciousness. Patient reports was assisted by staff following fall and laid supine on a bed and attempts to relieve the pain. Patient reports pain did not remit and resulting patient being sent to [facility]. Patient denies fever, dizziness, nausea, vomiting, hematochezia, or skin rash. Review of Systems: Review of Systems: Constitutional: Denies fever or chills Eyes: Denies redness or eye pain HENT: Denies nasal congestion or sore throat Respiratory: Denies cough or shortness of breath Cardiovascular: Denies chest pain or palpitations GI: Denies abdominal pain, nausea, or vomiting : Denies dysuria or hematuria Musculoskeletal: Reports back pain. Reports R 5th metacarpophalangeal pain. Reports R lateral elbow pain. Reports R lateral shoulder pain. Integument: Denies rash or laceration Neurologic: Denies headache, focal weakness or sensory changes Complete systems were reviewed and found to be within normal limits, except as documented in this note. Heart Score: C/O Chest Pain: N/A Current Medications: Current Medications Medications (Trade) Dose Ordered Sig/Lizzeth Start Time Stop Time Status Last Admin Dose Admin Sodium Chloride 1,000 ml @ 0 mls/hr 1X ONCE 06/28/21 11:45 06/28/21 11:46 UNV Allergies: Allergies: Allergies Coded Allergies Type Severity Reaction Last Updated Verified No Known Drug Allergies 06/21/21 No Physical Exam: PE: Constitutional: Well developed, well nourished, no acute distress, non-toxic appearance HENT: Normocephalic, superficial abrasion superior R eyebrow Eyes: PERRL, EOMI, conjunctiva normal, no discharge Neck: C-collar in place, supple Lungs & Thorax: No respiratory distress, equal chest rise and fall, clear to auscultation bilaterally Cardiovascular: RRR, no murmur Abdomen: Soft, no tenderness; pelvis stable and nontender Skin: Warm, dry, no erythema, no rash. Minor abrasion/contusion R lateral elbow Back: Mild lower back tenderness, no CVA tenderness Extremities: Tenderness R lateral shoulder/R lateral elbow/ R 5th metacarpophalangeal joint/ R lateral knee, ROM intact, no deformity Neurologic: Alert and oriented X 3, normal motor function, normal sensory function, no focal deficits noted Psychologic: Affect normal, judgment normal Radiology/Procedures: Radiology/Procedures: PROCEDURE: CT HEAD AND CERVICAL SPINE WO EXAM: Head and cervical spine CT without contrast. HISTORY: Trauma. Pain. TECHNIQUE: Computed tomographic images of the head and cervical spine were obtained without contrast. *One or more of the following individualized dose reduction techniques were utilized for this examination: 1. Automated exposure control. 2. Adjustment of the mA and/or kV according to patient size. 3. Use of iterative reconstruction technique. COMPARISON: 05/22/2021. FINDINGS: Head: There is stable decreased attenuation within the right parietal lobe due t o an early chronic infarct, better characterized on the MRI performed 04/01/2021. There are bilateral cerebral white matter changes due to chronic small vessel disease. There are small chronic infarcts within the bilateral centrum semiovale. There is cerebral volume loss. There is no hemorrhage, mass effect or midline shift. There is no hydrocephalus. There is left maxillary sinus mucosal thickening and sinus wall thickening due to chronic sinusitis. The mastoid air cells are clear. The orbits are unremarka ble. Cervical spine: There is multilevel endplate remodeling and facet and uncovertebral arthropathy. There are few osseous hemangiomas. There is no fracture or suspicious osseous lesion. There is calcified atherosclerotic plaque involving the carotid bifurcations. The lung apices are unremarkable. The combination of degenerative changes results in mild right foraminal stenosis at C2-C3, moderate right and moderate to severe left foraminal stenosis and mild central canal stenosis at C3-C4, moderate to severe bilateral foraminal stenosis and mild central canal stenosis at C4-C5, moderate to severe left and mild to moderate right foraminal stenosis at C5-C6, and mild right foraminal stenosis at C6-C7. There is a 1.7 cm inferior left thyroid nodule with slight peripheral calcification. IMPRESSION: 1. No acute intracranial finding or evidence of acute cervical spine trauma. 2. 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 3. Cerebral white matter changes due to chronic small vessel disease and mild cerebral volume loss. 4. Degenerative change throughout the cervical spine, resulting in stenosis at the aforementioned levels. 5. Left thyroid nodule. This can be better assessed with a thyroid sonogram if not previously performed. Electronically signed by: Patti Campbell MD (06/28/2021 12:41 PM) [id number] PROCEDURE: Right elbow, 3 views; right shoulder, 3 views; right hand, 3 views; right knee, 3 views. HISTORY: Fall. Pain. COMPARISON: None. FINDINGS: Right elbow: 3 views of the right elbow are obtained. There is no acute fracture, dislocation or subluxation. There is a tiny corticated ossicle adjacent to the lateral upper condyle. There are suspected vascular clips throughout the distal upper arm and proximal forearm. Evaluation for an elbow effusion is limited due to projection. Right shoulder: 3 views of the right shoulder obtained. There is widening of the acromial clavicular joint likely due to partial distal clavicular resection. There is decreased subacromial space due to image projection or chronic rotator cuff pathology. There is a tiny bone island within the humeral head. Right hand: 3 views of the right hand are obtained. There is no acute fracture, dislocation or subluxation. There is mild degenerative spurring involving the first carpometacarpal joint. There is no radiodense foreign body. Right knee: 3 views of the right knee are obtained. There is mild medial compartment joint space narrowing. There is enthesopathy along the superior patella. There is a small joint effusion. There are vascular calcifications and vascular clips within the thigh and lower leg. IMPRESSION: 1. Right knee effusion. 2. Mild medial compartment osteoarthritis of the right knee and mild osteoarthritis involving the right first carpometacarpal joint. 3. Postoperative changes involving the right shoulder. Electronically signed by: Patti Campbell MD (06/28/2021 12:34 PM) [id number] Course & Med Decision Making: Course & Med Decision Making Pertinent Labs and Imaging studies reviewed. (See chart for details) Patient is a 65-year-old male with PMH type 2 diabetes mellitus, hypertension, hypercholesterolemia presents with CC mechanical fall. Patient reports falling on his right side after tripping while performing physical therapy at 08 30 on 06/28/2021. Patient report hitting the right side of his head, elbow, and knee which he reports is extremely tender. Patient denies loss of consciousness. Patient on anticoagulation. Trauma activation utilized. Ice applied. CT head/cervical spine without acute finding. X-rays of right shoulder/elbow/hand without fracture or dislocation. X-ray of right knee also stable. UA with indwelling wolff cath. UA with signs of infection and yeast. Wolff cath exchanged and empiric antibiotics and anti-fungal provided. Carlos A wrap applied to right elbow and right knee. Patient stable for discharge with outpatient follow-up with PCP. Discussed findings and plan with patient, who acknowledges understanding and agreement. Frida Disclaimer: [employer] Disclaimer: This electronic medical record was generated, in whole or in part, using a voice recognition dictation system. Splinting Splinting : Location: Right knee and right elbow Pre-Made Type: CARLOS A bandage Pre-Proc Neuro Vasc Exam: normal Post-Proc Neuro Vasc Exam: normal, unchanged from pre-exam Progress Applied by RN and evaluated by myself after application Departure Departure Impression: Primary Impression: Fall Qualified Codes: W19.XXXA - Unspecified fall, initial encounter Additional Impressions: Head contusion Qualified Codes: S00.03XA - Contusion of scalp, initial encounter Contusion of right elbow Qualified Codes: S50.01XA - Contusion of right elbow, initial encounter Knee contusion Qualified Codes: S80.01XA - Contusion of right knee, initial encounter Complicated urinary tract infection Yeast cystitis Disposition: HOME / SELF CARE / HOMELESS Condition: STABLE Referrals: BRAVO VILLANUEVA MD (PCP) Patient Instructions: Catheter-Associated Urinary Tract Infection FAQs - JACKSON, Contusion, [id number], Elastic Bandage and RICE, Elbow Contusion, [id number], Fall Prevention and Home Safety, [id number] Scripts Fluconazole (DIFLUCAN) 200 Mg Tablet 1 TAB PO DAILY, #1 TAB Take this dose upon completion of your antibiotic therapy. Prov: RAGHAV ARNDT DO 06/28/21 Cephalexin (KEFLEX) 500 Mg Capsule 1 CAP PO TID for 7 Days, #21 CAP Prov: RAGHAV ARNDT DO 06/28/21 RAGHAV ARNDT DO June 28, 2021 12:06
[2021-06-28 12:13] LABS: BASO # 0.1 x10^3/uL (0.0-0.2); BASO % 1 % (0-3); EOS # 0.2 x10^3/uL (0.0-0.7); EOS % 3 % (0-3); HEMATOCRIT 31.1 % (39.0-53.0); LYMPH # 1.5 x10^3/uL (1.0-4.8); LYMPH % 19 % (24-48); MEAN CORPUSCULAR HEMOGLOBIN 25 pg (25-35); MEAN CORPUSCULAR HGB CONC 32 g/dL (31-37); MEAN CORPUSCULAR VOLUME 77 fL (79-100); MONO # 0.7 x10^3/uL (0.0-1.1); MONO % 10 % (0-9); NEUT % 67 % (31-73); PLATELET COUNT 364 x10^3/uL (140-400); RED BLOOD COUNT 4.04 x10^6/uL (4.30-5.70); RED CELL DISTRIBUTION WIDTH 19.5 % (11.5-14.5); WHITE BLOOD COUNT 7.5 x10^3/uL (4.0-11.0)
[2021-06-28 12:27] LABS: PROTHROMBIN TIME PATIENT 18.2 SEC (11.7-14.0)
[2021-06-28 12:28] LABS: CREATININE 1.2 mg/dL (0.7-1.3); GFR 60.8; POTASSIUM 4.7 mmol/L (3.5-5.1)
[2021-06-28 12:33] LABS: ALBUMIN 3.1 g/dL (3.4-5.0); ALBUMIN/GLOBULIN RATIO 0.6 (1.0-1.7); MAGNESIUM 1.9 mg/dL (1.8-2.4); TOTAL BILIRUBIN 1.1 mg/dL (0.2-1.0); TOTAL PROTEIN 8.7 g/dL (6.4-8.2)
--- NOTE | 2021-06-28 12:36 | RAD ---
EXAM: Right elbow, 3 views; right shoulder, 3 views; right hand, 3 views; right knee, 3 views. HISTORY: Fall. Pain. COMPARISON: None. FINDINGS: Right elbow: 3 views of the right elbow are obtained. There is no acute fracture, dislocation or subl uxation. There is a tiny corticated ossicle adjacent to the lateral upper condyle. There are suspecte d vascular clips throughout the distal upper arm and proximal forearm. Evaluation for an elbow effusi on is limited due to projection. Right shoulder: 3 views of the right shoulder obtained. There is widening of the acromial clavicular joint likely due to partial distal clavicular resection. There is decreased subacromial space due to image projection or chronic rotator cuff pathology. There is a tiny bone island within the humeral he ad. Right hand: 3 views of the right hand are obtained. There is no acute fracture, dislocation or sublux ation. There is mild degenerative spurring involving the first carpometacarpal joint. There is no rad iodense foreign body. Right knee: 3 views of the right knee are obtained. There is mild medial compartment joint space narr owing. There is enthesopathy along the superior patella. There is a small joint effusion. There are v ascular calcifications and vascular clips within the thigh and lower leg. IMPRESSION: 1. Right knee effusion. 2. Mild medial compartment osteoarthritis of the right knee and mild osteoarthritis involving the rig ht first carpometacarpal joint. 3. Postoperative changes involving the right shoulder. Electronically signed by: Patti Campbell MD (06/28/2021 12:34 PM) [id number]
--- NOTE | 2021-06-28 12:44 | RAD ---
EXAM: Head and cervical spine CT without contrast. HISTORY: Trauma. Pain. TECHNIQUE: Computed tomographic images of the head and cervical spine were obtained without contrast. *One or more of the following individualized dose reduction techniques were utilized for this examina tion: 1. Automated exposure control. 2. Adjustment of the mA and/or kV according to patient size. 3. Use of iterative reconstruction technique. COMPARISON: 05/22/2021. FINDINGS: Head: There is stable decreased attenuation within the right parietal lobe due to an early chronic in farct, better characterized on the MRI performed 04/01/2021. There are bilateral cerebral white matter changes due to chronic small vessel disease. There are small chronic infarcts within the bilateral c entrum semiovale. There is cerebral volume loss. There is no hemorrhage, mass effect or midline shift . There is no hydrocephalus. There is left maxillary sinus mucosal thickening and sinus wall thickening due to chronic sinusitis. The mastoid air cells are clear. The orbits are unremarkable. Cervical spine: There is multilevel endplate remodeling and facet and uncovertebral arthropathy. Ther e are few osseous hemangiomas. There is no fracture or suspicious osseous lesion. There is calcified atherosclerotic plaque involving the carotid bifurcations. The lung apices are unremarkable. The combination of degenerative changes results in mild right foraminal stenosis at C2-C3, moderate r ight and moderate to severe left foraminal stenosis and mild central canal stenosis at C3-C4, moderat e to severe bilateral foraminal stenosis and mild central canal stenosis at C4-C5, moderate to severe left and mild to moderate right foraminal stenosis at C5-C6, and mild right foraminal stenosis at C6 -C7. There is a 1.7 cm inferior left thyroid nodule with slight peripheral calcification. IMPRESSION: 1. No acute intracranial finding or evidence of acute cervical spine trauma. 2. 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 3. Cerebral white matter changes due to chronic small vessel disease and mild cerebral volume loss. 4. Degenerative change throughout the cervical spine, resulting in stenosis at the aforementioned lev els. 5. Left thyroid nodule. This can be better assessed with a thyroid sonogram if not previously perform ed. Electronically signed by: Patti Campbell MD (06/28/2021 12:41 PM) [id number]
[2021-06-28 14:30] LABS: BACTERIA,URINE MODERATE /HPF (0-FEW)
[2021-06-28 14:31] LABS: YEAST,URINE PRESENT /HPF
[2021-06-28] MEDS ORDERED: FLUCONAZOLE 100 MG TABLET. PO ONE (14:45)
[2021-06-28] MEDS ORDERED: CEPHALEXIN 250 MG CAPSULE. PO ONE (14:45)
[2021-06-28] MEDS ORDERED: FLUC200T PO (14:46)
[2021-06-28] MEDS ORDERED: CEPH500C PO (14:46)
== END 2021-06-28 17:21 | disposition home or self-care (01) ==
LOC: ER 10:58
DX: S00.03XA Contusion of scalp, initial encounter (principal); S50.01XA Contusion of right elbow, initial encounter; S80.01XA Contusion of right knee, initial encounter; M25.511 Pain in right shoulder; B37.41 Candidal cystitis and urethritis; I10 Essential (primary) hypertension; M17.11 Unilateral primary osteoarthritis, right knee; E11.40 Type 2 diabetes mellitus with diabetic neuropathy, unspecified; E78.00 Pure hypercholesterolemia, unspecified; I25.10 Atherosclerotic heart disease of native coronary artery without angina pectoris; I25.2 Old myocardial infarction; Z86.718 Personal history of other venous thrombosis and embolism; Z95.1 Presence of aortocoronary bypass graft; Z95.5 Presence of coronary angioplasty implant and graft; W01.0XXA Fall on same level from slipping, tripping and stumbling without subsequent striking against object, initial encounter; Y93.89 Activity, other specified; Y92.89 Other specified places as the place of occurrence of the external cause; Y99.8 Other external cause status
CPT/HCPCS: 36415; 51702; 70450; 72125; 73030; 73080; 73130; 73562; 80053; 81001; 83735; 85025; 85610; 85730; 87077; 87086; 99285; J7030; A6450